=== PATIENT | female | born 1985 | race Caucasian/White ===

== ENCOUNTER 2018-02-04 22:15 | Emergency (ER) | payer OTHER ==
[~2018-02-04] VITALS: Ht 167.6 cm; Wt 113.4 kg
[2018-02-04] MEDS ORDERED: ONDANSETRON HCL INJ 2 MG/ML VIAL IV STA (23:19)
[2018-02-04] MEDS ORDERED: IBUPROFEN 600 MG TAB PO STA (23:19)
[2018-02-04 23:44] LABS: BASOPHILS % 0.2 % (0.0-1.0); EOSINOPHILS # (AUTO) 0.1 (0.0-0.4); EOSINOPHILS % 1.5 % (0.0-6.0); HEMATOCRIT 41.8 % (34.2-44.1); HEMOGLOBIN 14.4 g/dL (12.0-16.0); LYMPHOCYTES # (AUTO) 0.6 (1.0-3.2); LYMPHOCYTES % 7.2 % (18.0-39.1); MEAN CORPUSCULAR HGB CONC 34.4 g/dL (31-35); MEAN CORPUSCULAR VOLUME 87.1 fL (81-99); MONOCYTES # (AUTO) 0.6 (0.2-0.8); MONOCYTES % 6.2 % (4.4-11.3); NEUTROPHILS # (AUTO) 7.5 (2.1-6.9); NEUTROPHILS % 84.6 % (38.7-80.0); PLATELET COUNT 236 x10e3/uL (140-360); RED CELL DISTRIBUTION WIDTH 12.4 % (11.7-14.4)
[2018-02-04 23:54] LABS: CLARITY,URINE CLEAR (CLEAR); COLOR,URINE YELLOW (YELLOW); PREGNANCY TEST, URINE NEGATIVE (NEGATIVE)
[2018-02-04 23:55] LABS: BILIRUBIN,URINE 1+ (NEGATIVE); KETONES,URINE 3+ (NEGATIVE); LEUKOCYTE ESTERASE ,URINE NEGATIVE (NEGATIVE); NITRITE,URINE NEGATIVE (NEGATIVE); PROTEIN,URINE DIPSTICK TRACE (NEGATIVE); URINE UROBILINOGEN 0.2 mg/dL (0.2 - 1)
[2018-02-05 00:01] LABS: ALANINE AMINOTRANSFERASE 30 IU/L (0-55); ALBUMIN 3.7 g/dL (3.5-5.0); ALBUMIN/GLOBULIN RATIO 1.1 (0.8-2.0); ALKALINE PHOSPHATASE 72 IU/L (40-150); ANION GAP 15.8 mmol/L (8-16); BLOOD UREA NITROGEN 16 mg/dL (7-26); BUN/CREATININE RATIO 25 (6-25); CARBON DIOXIDE 21 mmol/L (22-29); CHLORIDE 105 mmol/L (98-107); CREATININE, SERUM 0.64 mg/dL (0.57-1.11); EST GLOMERULAR FILTRATION RATE > 60 ML/MIN (60-); GLUCOSE 94 mg/dL (74-118); POTASSIUM 3.8 mmol/L (3.5-5.1); SODIUM 138 mmol/L (136-145)
[2018-02-05 00:12] LABS: BACTERIA,URINE MANY /HPF; EPITHELIAL CELLS,URINE FEW /LPF; TRANSITIONAL EPI CELLS,URINE FEW
[2018-02-05] MEDS ORDERED: NITROFURANTOIN MACROCRYSTALS 100 MG CAP PO ONE (01:15)
[2018-02-05] MEDS ORDERED: SODIUM CHLORIDE 0.9% 1000ML 1,000 ML IV SCH (01:15)
[2018-02-05] MEDS ORDERED: ONDANSETRON HCL 4 MG ORAL DISINTEGRATING TAB ONE (01:21)
[2018-02-05] MEDS ORDERED: ZOFRAN ODT4 MG SL (01:42)
[2018-02-05] MEDS ORDERED: MACROBID 100 M100 MG PO (01:42)
[2018-02-05] MEDS ORDERED: BELLADONNA ALK/PHENOBARBITAL 5 ML UDC ONE (01:50)
[2018-02-05] MEDS ORDERED: MAGNESIUM/ALUMINUM/SIMETHICONE 30 ML UDC ONE (01:50)
[2018-02-05] MEDS ORDERED: LIDOCAINE VISC 2% SOLN 15 ML UDC ONE (01:50)
[2018-02-05] MEDS ORDERED: DONNATAL/LIDOCAINE/MAALOX 30 ML SUSP PO ONE (02:00)
[2018-02-05 02:01] VITALS: BP 102/69
== END 2018-02-05 02:06 | disposition home or self-care (01) ==
LOC: ER 22:15
DX: R11.2 Nausea with vomiting, unspecified (principal); N30.91 Cystitis, unspecified with hematuria
CPT/HCPCS: 36415; 80053; 81001; 81025; 85025; 99283; J2405; J7030

== ENCOUNTER 2018-02-07 14:44 | Emergency (ER) | payer OTHER ==
[~2018-02-07] VITALS: Ht 167.6 cm; Wt 113.4 kg
[~2018-02-07 14:44] MED LIST: MACROBID 100 M100 MG PO; ZOFRAN ODT4 MG SL
[2018-02-07] MEDS ORDERED: ONDANSETRON HCL INJ 2 MG/ML VIAL IV STA (15:20)
[2018-02-07 15:21] LABS: BASOPHILS % 0.2 % (0.0-1.0); EOSINOPHILS # (AUTO) 0.3 (0.0-0.4); EOSINOPHILS % 3.6 % (0.0-6.0); HEMOGLOBIN 13.8 g/dL (12.0-16.0); LYMPHOCYTES # (AUTO) 1.7 (1.0-3.2); LYMPHOCYTES % 20.1 % (18.0-39.1); MEAN CORPUSCULAR HEMOGLOBIN 29.6 pg (28-32); MEAN CORPUSCULAR HGB CONC 33.7 g/dL (31-35); MEAN CORPUSCULAR VOLUME 87.8 fL (81-99); MONOCYTES # (AUTO) 0.6 (0.2-0.8); MONOCYTES % 7.6 % (4.4-11.3); NEUTROPHILS # (AUTO) 5.7 (2.1-6.9); NEUTROPHILS % 68.1 % (38.7-80.0); PLATELET COUNT 229 x10e3/uL (140-360); RED BLOOD COUNT 4.67 x10e6/uL (3.6-5.1); RED CELL DISTRIBUTION WIDTH 12.7 % (11.7-14.4)
[2018-02-07] MEDS ORDERED: MORPHINE SULFATE 2 MG/ML SYR IV STA (15:29)
[2018-02-07 15:34] LABS: BILIRUBIN,URINE 1+ (NEGATIVE); COLOR,URINE YELLOW (YELLOW); KETONES,URINE 1+ (NEGATIVE); LEUKOCYTE ESTERASE ,URINE NEGATIVE (NEGATIVE); NITRITE,URINE NEGATIVE (NEGATIVE); PROTEIN,URINE DIPSTICK 1+ (NEGATIVE); URINE UROBILINOGEN 0.2 mg/dL (0.2 - 1)
[2018-02-07 15:43] LABS: ALANINE AMINOTRANSFERASE 55 IU/L (0-55); ALBUMIN 3.5 g/dL (3.5-5.0); ALBUMIN/GLOBULIN RATIO 1.1 (0.8-2.0); ALKALINE PHOSPHATASE 62 IU/L (40-150); ANION GAP 11.6 mmol/L (8-16); BLOOD UREA NITROGEN 15 mg/dL (7-26); BUN/CREATININE RATIO 19 (6-25); CALCIUM 8.9 mg/dL (8.4-10.2); CARBON DIOXIDE 24 mmol/L (22-29); CHLORIDE 107 mmol/L (98-107); CREATININE, SERUM 0.78 mg/dL (0.57-1.11); EST GLOMERULAR FILTRATION RATE > 60 ML/MIN (60-); GLUCOSE 95 mg/dL (74-118); POTASSIUM 3.6 mmol/L (3.5-5.1); SODIUM 139 mmol/L (136-145)
[2018-02-07 15:50] LABS: AMORPHOUS SEDIMENT,URINE MANY (FEW); BACTERIA,URINE RARE /HPF; CLARITY,URINE CLOUDY (CLEAR); EPITHELIAL CELLS,URINE RARE /LPF; RBC,URINE 0-5 /HPF (0-5)
[2018-02-07] MEDS ORDERED: SODIUM CHLORIDE 0.9% 1000ML 1,000 ML IV ONE (16:30)
[2018-02-07] MEDS ORDERED: MORPHINE SULFATE 2 MG/ML SYR IV ONE (17:09)
[2018-02-07] MEDS ORDERED: DIATRIZOATE MEGL/DIATRIZOA SOD 30 ML BTL PO ONE (17:14)
--- NOTE | 2018-02-07 19:39 | Diagnostic Imaging Report ---
EXAM: CT ABDOMEN/PELVIS W DATE: 02/07/2018 5:04 PM INDICATION: Abdominal pain COMPARISON: None TECHNIQUE: The abdomen and pelvis were scanned using a multidetector helical scanner. Coronal and sagittal reformations were obtained. Routine protocol performed. IV Contrast: 100 ml Isovue 300/370 FINDINGS: Image quality is mildly degraded by noise related to body habitus. LOWER THORAX: No consolidations. Partially imaged medial right lung cyst or bullae. LIVER/BILIARY: No masses. No ductal dilatation. GALLBLADDER: Surgically absent SPLEEN: Unremarkable PANCREAS: Unremarkable ADRENALS: No nodules KIDNEYS: Symmetric perfusion. No enhancing masses. No hydronephrosis. GI TRACT: No wall thickening or evidence of obstruction. Moderate stool burden is noted. Normal appendix. VESSELS: Unremarkable PERITONEUM/RETROPERITONEUM: No free air or fluid LYMPH NODES: No lymphadenopathy REPRODUCTIVE ORGANS/BLADDER: Unremarkable SOFT TISSUES: Tiny fat-containing umbilical hernia BONES: Scattered degenerative changes are seen about the spine. IMPRESSION: No acute abnormality in the abdomen or pelvis. Signed by: Dr Venus Blake MD on 02/07/2018 7:35 PM
[2018-02-07 19:47] VITALS: BP 147/97
[2018-02-07] MEDS ORDERED: IOPAMIDOL 370 MG/ML 200 ML INFUS..BTL INJ ONE (21:22)
[2018-02-07] MEDS ORDERED: SODIUM CHLORIDE 0.9% 50ML 0 ML ONE (21:22)
--- OUTSIDE RECORDS SUMMARY | 2018-05-19 14:23 | XMS REPORT ---
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 Allergies, Adverse Reactions, Alerts Allergy Name Allergy Type Status Severity Reaction(s) Onset Date Inactive Date Treating Clinician Comments Penicillins DA Active MO 2018-05-05 00:00:00 cephalexin DA Active MO 2018-05-05 00:00:00 sulfamethoxazole DA Active U 2018-05-05 00:00:00 trimethoprim DA Active U 2018-05-05 00:00:00 cephalexin DA Active MO 2017-11-27 00:00:00 Penicillins DA Active MO 2015-01-30 00:00:00 sulfamethoxazole DA Active U 2015-01-30 00:00:00 trimethoprim DA Active U 2015-01-30 00:00:00 Medications This patient has no known medications. Results Test Description Test Time Test Comments Text Results Atomic Results Result Comments CT ABDOMEN/PELVIS W 2018-02-07 19:32:00 [place] [id number] Patient Name: COLLEEN JOHNSON MR #: [id number] : 1985 Age/Sex: 32/F Req #: [id number] Adm Physician: Ordered by: FELICIA DELGADO MD Report #: [id number] Location: ER Room/Bed: ____ Procedure: [id number] CT/CT ABDOMEN/PELVIS W Exam Date: 02/07/18 Exam Time: 1830 REPORT STATUS: Signed EXAM: CT ABDOMEN/PELVIS W DATE: 02/07/2018 5:04 PM INDICATION: Abdominal pain COMPARISON: None TECHNIQUE: The abdomen and pelvis were scanned using a multidetector helical scanner. Coronal and sagittal reformations were obtained. Routine protocol performed. IV Contrast: 100 ml Isovue 300/370 FINDINGS: Image quality is mildly degraded by noise related to body habitus. LOWER THORAX: No consolidations. Partially imaged medial right lung cyst or bullae. LIVER/BILIARY: No masses. No ductal dilatation. GALLBLADDER: Surgically absent SPLEEN: Unremarkable PANCREAS: Unremarkable ADRENALS: No nodules KIDNEYS: Symmetric perfusion. No enhancing masses. No hydronephrosis. GI TRACT: No wall thickening or evidence of obstruction. Moderate stool burden is noted. Normal appendix. VESSELS: Unremarkable PERITONEUM/RETROPERITONEUM: No free air or fluid LYMPH NODES: No lymphadenopathy REPRODUCTIVE ORGANS/BLADDER: Unremarkable SOFT TISSUES: Tiny fat-containing umbilical hernia BONES: Scattered degenerative changes are seen about the spine. IMPRESSION: No acute abnormality in the abdomen or pelvis. Signed by: Dr Mary Blake MD on 02/07/2018 7:35 PM Dictated By: MARY BLAKE MD 34 Transcribed By: LILIA on 02/07/181934 COPY TO: FELICIA DELGADO MD
--- OUTSIDE RECORDS SUMMARY | 2018-05-19 14:23 | XMS REPORT | Continuity of Care Document ---
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 Problems No problem information available. Medications Current Home Medications Medication Dose Units Route Directions Days Qty Instructions Start Date Nitrofurantoin Monohyd/M-Cryst (Macrobid 100 Mg Capsule) 100 Mg Capsule 100 Mg Oral Twice A Day 7 02/05/18 Ondansetron (Zofran Odt) 4 Mg Tab.rapdis 4 Mg Sublingual Every 6 Hours as needed for Nausea 14 02/05/18 Social History Smoking Status Start Date Stop Date Current every day smoker Hospital Discharge Instructions No hospital discharge instruction information available. Plan of Care Discharge Date 02/05/18 2:06am Disposition HOME, SELF-CARE Condition at Discharge Stable Instructions/Education Provided Abdominal Pain - Adult Urinary Tract Infection - Men Vomiting - Adult Forms Provided Work/School Excuse Prescriptions See Medication Section Additional Instructions/Education CONTINUE CLINDAMYCIN TAKE MEDICATIONS PRESCRIBED FOLLOW UP WITH YOUR PRIMARY CARE DOCTOR TAKE TYLENOL AND MOTRIN DIRECTED FOR FEVER Functional Status No functional status information available. Allergies, Adverse Reactions, Alerts Allergen Type Severity Reaction Status Last Updated Cephalexin Allergy Severe Active 02/04/18 Sulfamethoxazole Allergy Severe Active 02/04/18 Trimethoprim Allergy Severe Active 02/04/18 PENICILLIN Allergy Severe Active 02/04/18 Immunizations No immunization information available. Vital Signs Acute Vital Signs Vital Response Date/Time Pulse Pulse Rate (adult) 71 bpm (60 - 90) 02/05/2018 2:01am Respiratory Rate 18 bpm (12 - 24) 02/05/2018 2:01am Blood Pressure 102/69 mm Hg 02/05/2018 2:01am Height 5 ft 6 in 02/04/2018 10:16pm Weight 250 lb 02/04/2018 10:16pm Body Mass Index 40.4 kg/m^2 02/04/2018 10:16pm Results Laboratory Results Test Name Result Units Flags Reference Collection Date/Time Result Date/ Time Comments White Blood Count 8.91 x10e3/uL 4.8-10.8 02/04/2018 11:30pm 02/05/2018 12:00am Red Blood Count 4.80 x10e6/uL 3.6-5.1 02/04/2018 11:30pm 02/05/2018 12: 00am Hemoglobin 14.4 g/dL 12.0-16.0 02/04/2018 11:30pm 02/05/2018 12:00am Hematocrit 41.8 % 34.2-44.1 02/04/2018 11:30pm 02/05/2018 12:00am Mean Corpuscular Volume 87.1 fL 81-99 02/04/2018 11:30pm 02/05/2018 12: 00am Mean Corpuscular Hemoglobin 30.0 pg 28-32 02/04/2018 11:30pm 2017 12:00am Mean Corpuscular Hemoglobin Concent 34.4 g/dL 31-35 02/04/2018 11:30pm 02/05/2018 12:00am Red Cell Distribution Width 12.4 % 11.7-14.4 02/04/2018 11:30pm 2017 12:00am Platelet Count 236 x10e3/uL 140-360 02/04/2018 11:30pm 02/05/2018 12: 00am Neutrophils (%) (Auto) 84.6 % H 38.7-80.0 02/04/2018 11:30pm 02/05/2018 12:00am Lymphocytes (%) (Auto) 7.2 % L 18.0-39.1 02/04/2018 11:30pm 02/05/2018 12:00am Monocytes (%) (Auto) 6.2 % 4.4-11.3 02/04/2018 11:30pm 02/05/2018 12: 00am Eosinophils (%) (Auto) 1.5 % 0.0-6.0 02/04/2018 11:30pm 02/05/2018 12: 00am Basophils (%) (Auto) 0.2 % 0.0-1.0 02/04/2018 11:30pm 02/05/2018 12: 00am IM GRANULOCYTES % 0.3 % 0.0-1.0 02/04/2018 11:30pm 02/05/2018 12:00am Neutrophils # (Auto) 7.5 H 2.1-6.9 02/04/2018 11:30pm 02/05/2018 12: 00am Lymphocytes # (Auto) 0.6 L 1.0-3.2 02/04/2018 11:30pm 02/05/2018 12: 00am Monocytes # (Auto) 0.6 0.2-0.8 02/04/2018 11:30pm 02/05/2018 12:00am Eosinophils # (Auto) 0.1 0.0-0.4 02/04/2018 11:30pm 02/05/2018 12: 00am Basophils # (Auto) 0.0 0.0-0.1 02/04/2018 11:30pm 02/05/2018 12:00am Absolute Immature Granulocyte (auto 0.03 x10e3/uL 0-0.1 02/04/2018 11: 30pm 02/05/2018 12:00am Urine Color YELLOW YELLOW 02/04/2018 11:38pm 02/04/2018 11:55pm Urine Clarity CLEAR CLEAR 02/04/2018 11:38pm 02/04/2018 11:55pm Urine Specific [place] 1.025 1.010-1.025 02/04/2018 11:38pm 2017 11:55pm Urine pH 6 5 - 7 02/04/2018 11:38pm 02/04/2018 11:55pm Urine Leukocyte Esterase NEGATIVE NEGATIVE 02/04/2018 11:38pm 2017 11:55pm Urine Nitrite NEGATIVE NEGATIVE 02/04/2018 11:38pm 02/04/2018 11: 55pm Urine Protein TRACE H NEGATIVE 02/04/2018 11:38pm 02/04/2018 11:55pm Urine Glucose (UA) NEGATIVE NEGATIVE 02/04/2018 11:38pm 02/04/2018 11 :55pm Urine Ketones 3+ H NEGATIVE 02/04/2018 11:38pm 02/04/2018 11:55pm Urine Urobilinogen 0.2 mg/dL 0.2 - 1 02/04/2018 11:38pm 02/04/2018 11: 55pm Urine Bilirubin 1+ H NEGATIVE 02/04/2018 11:38pm 02/04/2018 11:55pm Urine Blood 4+ H NEGATIVE 02/04/2018 11:38pm 02/04/2018 11:55pm Urine WBC 6-10 /HPF H 0-5 02/04/2018 11:38pm 02/05/2018 12:12am Urine RBC 11-20 /HPF H 0-5 02/04/2018 11:38pm 02/05/2018 12:12am Urine Bacteria MANY /HPF H NONE 02/04/2018 11:38pm 02/05/2018 12:12am Urine Epithelial Cells FEW /LPF NONE 02/04/2018 11:38pm 02/05/2018 12: 12am Urine Transitional Epithelial Cells FEW H NONE 02/04/2018 11:38pm 12:12am Urine Test NEGATIVE NEGATIVE 02/04/2018 11:38pm 02/04/2018 11:54pm Sodium Level 138 mmol/L 136-145 02/04/2018 11:30pm 02/05/2018 12:12am Potassium Level 3.8 mmol/L 3.5-5.1 02/04/2018 11:30pm 02/05/2018 12: 12am Chloride Level 105 mmol/L 98-107 02/04/2018 11:30pm 02/05/2018 12:12am Carbon Dioxide Level 21 mmol/L L 22-29 02/04/2018 11:30pm 02/05/2018 12: 12am Anion Gap 15.8 mmol/L 8-16 02/04/2018 11:30pm 02/05/2018 12:12am Blood Urea Nitrogen 16 mg/dL 7-02/04/2018 11:30pm 02/05/2018 12: 12am Creatinine 0.64 mg/dL 0.57-1.11 02/04/2018 11:30pm 02/05/2018 12:12am BUN/Creatinine Ratio 25 6-25 02/04/2018 11:30pm 02/05/2018 12:12am Estimat Glomerular Filtration Rate > 60 ML/MIN 60- 02/04/2018 11:30pm 02/05/2018 12:12am Ranges were taken from the National Kidney Disease Education Program and the [employer] literature. Reference ranges: 60 or greater: Normal 16-59 (for 3 consecutive months): Chronic kidney disease 15 or less: Kidney failure Glucose Level 94 mg/dL 74-118 02/04/2018 11:30pm 02/05/2018 12:12am Calcium Level 9.0 mg/dL 8.4-10.2 02/04/2018 11:30pm 02/05/2018 12:12am Total Bilirubin 1.0 mg/dL 0.2-1.2 02/04/2018 11:30pm 02/05/2018 12: 12am Aspartate Amino Transf (AST/SGOT) 26 IU/L 5-34 02/04/2018 11:30pm 02/05 12:12am Alanine Aminotransferase (ALT/SGPT) 30 IU/L 0-55 02/04/2018 11:30pm 12:12am Total Protein 7.2 g/dL 6.5-8.1 02/04/2018 11:30pm 02/05/2018 12:12am Albumin 3.7 g/dL 3.5-5.0 02/04/2018 11:30pm 02/05/2018 12:12am Globulin 3.5 g/dL 2.3-3.5 02/04/2018 11:30pm 02/05/2018 12:12am Albumin/Globulin Ratio 1.1 0.8-2.0 02/04/2018 11:30pm 02/05/2018 12: 12am Alkaline Phosphatase 72 IU/L 40-150 02/04/2018 11:30pm 02/05/2018 12: 12am Procedures No procedure information available. Encounters Encounter Location Arrival/Admit Date Discharge/Depart Date Attending Provider Departed Emergency Room [facility] [place] 02/04/18 10:15pm 02/05 2:06am AMANDA MUHAMMAD MD
== END 2018-02-07 19:52 | disposition home or self-care (01) ==
LOC: ER 14:46
DX: R10.30 Lower abdominal pain, unspecified (principal); N30.90 Cystitis, unspecified without hematuria; E28.2 Polycystic ovarian syndrome; Z87.19 Personal history of other diseases of the digestive system
CPT/HCPCS: 36415; 74177; 80053; 81001; 84702; 85025; 87086; 99284; J2270; J2405; J7030; Q9967

== ENCOUNTER 2018-04-30 13:40 | Emergency (ER) | payer OTHER ==
[~2018-04-30] VITALS: Ht 167.6 cm; Wt 120.2 kg
== END 2018-04-30 16:17 | disposition left against medical advice (07) ==
LOC: ER 13:40
DX: R21 Rash and other nonspecific skin eruption (principal)

== ENCOUNTER 2019-06-05 14:58 | Emergency (ER) | payer OTHER ==
[~2019-06-05] VITALS: Ht 167.6 cm; Wt 132.1 kg
[2019-06-05] MEDS ORDERED: LIDOCAINE 1% W/EPINEPHRINE 20 ML VIAL INJ ONE (15:30)
[2019-06-05] MEDS ORDERED: LIDOCAINE HCL 1% LOCAL INJ 20 ML VIAL ONE (15:46)
[2019-06-05] MEDS ORDERED: HYDROCODONE/APAP 10MG-325MG TAB PO ONE (16:00)
[2019-06-05] MEDS ORDERED: HYDROCODONE/APAP 5MG-325MG TAB ONE (16:03)
[2019-06-05 19:49] VITALS: BP 99/65
== END 2019-06-05 16:13 | disposition home or self-care (01) ==
LOC: FSED 14:58
DX: L73.2 Hidradenitis suppurativa (principal); L02.211 Cutaneous abscess of abdominal wall
CPT/HCPCS: 10061; 99283; J2001

== ENCOUNTER 2019-07-29 18:32 | Emergency (ER) | payer OTHER ==
[~2019-07-29] VITALS: Ht 167.6 cm; Wt 124.7 kg
[2019-07-29] MEDS ORDERED: KETOROLAC TROMETHAMINE 60 MG/2 ML VIAL ONE (19:16)
[2019-07-29] MEDS ORDERED: KETOROLAC TROMETHAMINE 60 MG/2 ML VIAL IM ONE (19:30)
--- NOTE | 2019-07-29 19:31 | Diagnostic Imaging Report ---
Exam: Right Ankle Series. History: Hit back of ankle one week ago Comparison: None. DISCUSSION: 3 views of the right ankle. There is normal bone mineralization. No evidence of acute, displaced fracture or dislocation. Ankle mortise is preserved.No osteochondral lesion. Large anterior calcaneal enthesophyte. No soft tissue swelling. IMPRESSION: 1. No acute abnormalities. The staff physician below has personally reviewed this exam on the date of dictation. Signed by: Dr. Duarte Dunham M.D. on 07/29/2019 7:27 PM
== END 2019-07-29 20:13 | disposition home or self-care (01) ==
LOC: FSED 18:32
DX: S90.01XA Contusion of right ankle, initial encounter (principal); M66.871 Spontaneous rupture of other tendons, right ankle and foot; W22.8XXA Striking against or struck by other objects, initial encounter; Y92.008 Other place in unspecified non-institutional (private) residence as the place of occurrence of the external cause
CPT/HCPCS: 73610; 99283; J1885

== ENCOUNTER 2020-04-12 18:48 | Observation (INO) | payer OTHER ==
[~2020-04-12] VITALS: Ht 167.6 cm; Wt 130.2 kg
[2020-04-12] MEDS ORDERED: MORPHINE SULFATE INJ 4 MG/ML INJ 1ML IV STA (19:21)
[2020-04-12] MEDS ORDERED: ONDANSETRON HCL INJ 2MG/ML 2ML 2 MG/ML VIAL IV STA (19:21)
[2020-04-12] MEDS ORDERED: SODIUM CHLORIDE 0.9% 1000ML 1,000 ML IV ONE (19:30)
--- OUTSIDE RECORDS SUMMARY | 2020-04-12 19:59 | XMS REPORT | Continuity of Care Document ---
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 pharmacy for label*, ATTN:REGINA, Drug form: MISC, Route: MISC, QSHIFT, 01/27/19 16:00:00 CDT, Duration: 30 day, Stop date: 02/26/19 8:00:00 CDT No Longer Active 01/27/2019 [facility] Acetaminophen 325 MG / Hydrocodone Nereyda trate 5 MG Oral Tablet [[place] 5/325] Notes: (Same as: [place] 325/5) Do not ex ceed 4gm/day of acetaminophen. No Longer Activ e 01/27/2019 [facility] Vancomycin 1 ea, Route: MISC, ONCALL, Dosing Weight 125, kg, Start date: 01/27/19 5:00:00 CDT, Duration: 5 day, Stop date: 02/01/19 4:59:00 CDT, Pharmacy to dose, ABX Indication: Skin/Soft Tissue Infection Inactive 01/27/2019 [facility] vancomycin + Sodium Chloride 0.9% IV 250 mL 2001 mg: infuse over 2.5 hours For adult patients only: Round to nearest 250 mg per Medical Staff approval MEDICATION WASTE Product Size: 1000 mg Product Wasted: ___ mg No Longer Active 01/27/2019 [facility] Lovenox Notes: (Same as: Loven ox) No Longer Active 01/27/2019 [facility] Morphine Notes: (Same as:MORPh ine Sulfate) No Longer Active 01/27/2019 [facility] Dextrose 50% Syringe 25 gm, 50 mL, Route: IVP, Drug Form: INJ, Dosing Weight 125, kg, PRN, PRN Blood Glucose Results, Start date: 01/27/19 4:35:00 CDT, Duration: 30 day, Stop date: 02/26/19 4:34:00 CDT No Longer Active 01/27/2019 [facility] Acetaminophen Notes: Do not ex ceed 4 gm/day. (Same as: Tylenol) No Longer Active 01/27/2019 [facility] Ondansetron Notes: (Same as: Kathy diaz) MEDICATION WASTE Product Size: 4 mg Product Wasted: ___ mg No Longer Active 01/27/2019 [facility] Glucagon 1 mg, Route: IM, Drug form: PDR/INJ, PRN, Dosing Weight 125, kg, PRN Blood Glucose Results, Start date: 01/27/19 4:35:00 CDT, Duration: 30 day, Stop date: 02/26/19 4:34:00 CDT No Longer Active 01/27/2019 [facility] Morphine 4 mg, Route: IVP, ONC E, Dosing Weight 125, kg, Priority: STAT, Start date: 01/27/19 3:29:00 CDT, Stop date: 01/27/19 3:29:00 CDT Inactive 01/27/2019 [facility] Vancomycin 1,000 mg, Route: IV PB, Drug form: INJ, ONCE, Dosing Weight 125, kg, Priority: STAT, Start date: 01/27/19 3:28:00 CDT, Stop date: 01/27/19 3:28:00 CDT, ABX Indication: Skin/Soft Tissue Infection Inactive 01/27/2019 [facility] Mupirocin 20 MG/ML Topical Cream 1 appl, TOP, TID, X 5 day, # 15 gm, 0 Refill(s) Active 12/13/2018 [facility] azithromycin 500 mg oral tablet 500 mg = 1 tab, PO, Daily, X 5 day, # 5 tab, 0 Refill(s) Active 12/13/2018 [facility] tedizolid 200 mg oral tablet 2 00 mg = 1 tab, PO, Daily, X 6 day, # 6 tab, 0 Refill(s), Pharmacy: [facility] [id number] Active 12/09/2018 [facility] Acetaminophen 300 MG / Codeine Phosphate 30 MG Oral Tablet [Tylenol with Codeine #3] 1 tab, PO, Q6H, PRN Pain, X 7 day, # 30 tab, 0 Refill(s) Active 12/09/2018 [facility] vancomycin + Sodium Chloride 0.9% IV 100 mL Notes: TIME CRITICAL MEDICATION (Same As: Vancocin) For adult patients only: Round to nearest 250 mg per Medical Staff approval No Longer Active 12/09/2018 [facility] vancomycin + Sodium Chloride 0.9% IV 250 mL 2001 mg: infuse over 2.5 hours For adult patients only: Round to nearest 250 mg per Medical Staff approval MEDICATION WASTE Product Size: 1000 mg Product Wasted: ___ mg No Longer Active 12/08/2018 [facility] Dilaudid Notes: (Same as: Dila udid) No Longer Active 12/07/2018 [facility] Naloxone Notes: Same as Narcan Inactive 12/06/2018 [facility] Ondansetron Notes: (Same as: Kathy diaz) MEDICATION WASTE Product Size: 4 mg Product Wasted: ___ mg Inactive 12/06/2018 [facility] Flumazenil Notes: (Same as: Ro mazicon) Inactive 12/06/2018 [facility] Hydromorphone Notes: Same as: Dilaudid Inactive 12/06/2018 [facility] Fentanyl Notes: (Same as: Subl imaze) Preservative free. Inactive 12/06/2018 [facility] Hydralazine Notes: (Same as: A presoline) Push over 5 minutes Inactive 12/06/2018 [facility] dexamethasone (ANES) Route: IV , Drug form: INJ, ONCE, Stop date: 12/06/18 12:33:00 CDT Inactive 12/06/2018 [facility] ondansetron (ANES) Route: IV, Drug form: INJ, ONCE, Stop date: 12/06/18 12:33:00 CDT Inactive 12/06/2018 [facility] ketOROLAC (ANES) IV, ONCE Inactive 12/06/2018 [facility] fentaNYL (ANES) Route: IV, Juan g form: INJ, ONCE, Stop date: 12/06/18 12:33:00 CDT Inactive 12/06/2018 [facility] midazolam (ANES) Route: IV, Dr ug form: SOLN, ONCE, Stop date: 12/06/18 12:33:00 CDT Inactive 12/06/2018 [facility] propofol (ANES) Route: IV, Juan g form: INJ, ONCE, Stop date: 12/06/18 12:33:00 CDT Inactive 12/06/2018 [facility] vancomycin (ANES) 1000 mg Rout e: IV, Drug form: INJ, Start date: 12/06/18 11:45:00 CDT, Stop date: 12/06/18 12:45:00 CDT Inactive 12/06/2018 [facility] Lactated Ringers Injection IV (ANES) 1000 mL Route: IV, Total Volume: 1,000, Start date: 12/06/18 11:45:00 CDT, Stop date: 12/06/18 12:45:00 CDT Inactive 12/06/2018 [facility] Calcium Chloride 0.0014 MEQ/ML / Potassi um Chloride 0.004 MEQ/ML / Sodium Chloride 0.103 MEQ/ML / Sodium Lactate 0.028 MEQ/ML Injectable Solution 1,000 mL, Rate: 25 ml/hr, Infuse over: 4 0 hr, Route: IV, Dosing Weight 58.778 kg, Total Volume: 1,000, Start date: 12/06/18 11:00:00 CDT, Duration: 30 day, Stop date: 01/05/19 10:59:00 CDT, 1.66, m2 Inactive 12/06/2018 [facility] vancomycin + Sodium Chloride 0.9% IV 250 mL 2001 mg: infuse over 2.5 hours For adult patients only: Round to nearest 250 mg per Medical Staff approval MEDICATION WASTE Product Size: 1000 mg Product Wasted: ___ mg No Longer Active 12/05/2018 [facility] Spironolactone Notes: (Same As : Aldactone) No Longer Active 12/05/2018 [facility] Ambien Notes: (Same As: Ambien) No Longer Active 12/05/2018 [facility] vancomycin + Sodium Chloride 0.9% IV 250 mL 2001 mg: infuse over 2.5 hours For adult patients only: Round to nearest 250 mg per Medical Staff approval MEDICATION WASTE Product Size: 1000 mg Product Wasted: ___ mg No Longer Active 12/04/2018 [facility] Adderall 30 mg, PO, BID, 0 Ref ill(s) Active 12/04/2018 [facility] Enoxaparin Notes: (Same as: Lo venox) No Longer Active 12/04/2018 [facility] Vancomycin 2001 mg: infuse ov er 2.5 hours For adult patients only: Round to nearest 250 mg per Medical Staff approval No Longer Active 12/04/2018 [facility] Vancomycin 2001 mg: infuse ov er 2.5 hours For adult patients only: Round to nearest 250 mg per Medical Staff approval MEDICATION WASTE Product Size: 1000 mg Product Wasted: ___ mg Inactive 12/04/2018 [facility] Dextrose 50% Syringe 25 gm, 50 mL, Route: IVP, Drug Form: INJ, Dosing Weight 126.364, kg, PRN, PRN Blood Glucose Results, Start date: 12/03/18 21:07:00 CDT, Duration: 30 day, Stop date: 01/02/19 21:06:00 CDT No Longer Active 12/04/2018 [facility] Glucagon 1 mg, Route: IM, Drug form: PDR/INJ, PRN, Dosing Weight 126.364, kg, PRN Blood Glucose Results, Start date: 12/03/18 21:07:00 CDT, Duration: 30 day, Stop date: 01/02/19 21:06:00 CDT No Longer Active 12/04/2018 [facility] Bisacodyl Notes: (Same As: Dul colax, Bisco-Lax) No Longer Active 12/04/2018 [facility] Ondansetron Notes: (Same as: Kathy diaz) MEDICATION WASTE Product Size: 4 mg Product Wasted: ___ mg No Longer Active 12/04/2018 [facility] Melatonin Notes: (Same as: Raissa atonin) No Longer Active 12/04/2018 [facility] Acetaminophen Notes: Do not ex ceed 4 gm/day. (Same as: Tylenol) No Longer Active 12/04/2018 [facility] Hydromorphone Notes: Same as: Dilaudid No Longer Active 12/04/2018 [facility] Tramadol Notes: Not to exceed 400mg/day. (Same As: Ultram) No Longer Active 12/04/2018 [facility] LR IV 1,000 mL 1,000 mL, Rate: 125 ml/hr, Infuse over: 8 hr, Route: IV, Dosing Weight 126.364 kg, Total Volume: 1,000, Start date: 12/03/18 21:05:00 CDT, Duration: 30 day, Stop date: 01/02/19 21:04:00 CDT, 2.47, m2 No Longer Active 12/04/2018 [facility] Calcium Gluconate Notes: WASTE : F/P - Sink; E - Municipal Trash Bin No Longer Active 12/04/2018 [facility] Potassium Chloride Notes: ([facility] as: K-Dur 20) "Do Not Crush" Give with food and full glass of water For patients unable to swallow tablet, dissolve in one half glass of water. Allow about 2 minutes for the tab lets to disintegrate. Stir before giving to prepare slurry and administer. Please exclude Patients with feeding tube less than 14 [place] (Dobhoff, J-tube etc) and pediatric and patients. No Longer Active 12/04/2018 [facility] Magnesium Sulfate Notes: WASTE : F/P - Sink; E - Municipal Trash Bin No Longer Active 12/04/2018 [facility] potassium phosphate Notes: ([place] [facility] as: K Phosphate.) Do not infuse phosphorous concurrently in the same line as TPN or IVF that contains calcium. For double lumen central lines, phosphorous may be infused in a separate lumen from TPN. 1 mMol phoshate has 1.47 mEq potassium Infuse over 4 hours No Longer Active 12/04/2018 [facility] sodium phosphate Notes: Infuse over 4 hour. Do not infuse phosphorous concurrently in the same line as TPN or IVF that contains calcium. For double lumen central lines, phosphorous may be infused in a separate lumen from TPN. No Longer Active 12/04/2018 [facility] Magnesium Oxide Notes: (Same a s: Mag-Ox 400) Magnesium oxide [id number] elemental magnesium Dose=____mg magnesium oxide (___mg elemental magnesium) No Longer Active 12/04/2018 [facility] potassium phosphate-sodium phosphate 250 mg-280 mg-160 mg oral powder for reconstitution Notes: (Same as: Phos-NaK) Each 1.5 gm pkt has 250mg phosphorous. Mix w/2.5oz water and stir. No Longer Active 12/04/2018 [facility] Morphine 4 mg, Route: IVP, ONC E, Dosing Weight 126.364, kg, Priority: STAT, Start date: 12/03/18 20:56:00 CDT, Stop date: 12/03/18 20:56:00 CDT Inactive 12/04/2018 [facility] Ondansetron 4 mg, Route: IVP, Drug form: INJ, ONCE, Dosing Weight 126.364, kg, Priority: STAT, Start date: 12/03/18 20:56:00 CDT, Stop date: 12/03/18 20:56:00 CDT Inactive 12/04/2018 [facility] Sodium Chloride 0.9% (Bolus) IV 1,000 mL, 1000 ml/hr, Infuse Over: 1 hr, Route: IV, 1,000, Drug form: INJ, ONCE, Priority: STAT, Dosing Weight 126.364 kg, Start date: 12/03/18 18:40:00 CDT, Stop date: 12/03/18 18:40:00 CDT Inactive 12/03/2018 [facility] Morphine 4 mg, Route: IVP, ONC E, Dosing Weight 126.364, kg, Priority: STAT, Start date: 12/03/18 18:40:00 CDT, Stop date: 12/03/18 18:40:00 CDT Inactive 12/03/2018 [facility] Vancomycin 1,000 mg, Route: IV PB, ONCE, Dosing Weight 126.364, kg, Priority: STAT, Start date: 12/03/18 18:40:00 CDT, Stop date: 12/03/18 18:40:00 CDT, ABX Indication: Skin/Soft Tissue Infection Inactive 12/03/2018 [facility] Saline Flush 0.9% Notes: (Same as: BD Posiflush) No Longer Active 12/03/2018 [facility] linezolid 600 mg oral tablet 6 00 mg = 1 tab, PO, [id number], X 10 day, # 20 tab, 0 Refill(s), Pharmacy: [facility] [id number] Active 10/12/2018 [facility] Morphine Notes: (Same as:MORPh ine Sulfate) No Longer Active 10/12/2018 [facility] linezolid Notes: Protect from light. (Same as: Zyvox) No Longer Active 10/11/2018 [facility] Vancomycin 2001 mg: infuse ov er 2.5 hours For adult patients only: Round to nearest 250 mg per Medical Staff approval MEDICATION WASTE Product Size: 1000 mg Product Wasted: ___ mg Inactive 10/11/2018 [facility] Lovenox Notes: (Same as: Loven ox) No Longer Active 10/11/2018 [facility] Vancomycin 1 ea, Route: MISC, ONCALL, Dosing Weight 133.182, kg, Priority: STAT, Start date: 10/11/18 10:46:00 ALLERGY AND IMMUNOLOGY CHIEF, Duration: 1 day, Stop date: 10/12/18 10:45:00 ALLERGY AND IMMUNOLOGY CHIEF, Pharmacy to dose, ABX Indication: Urinary T ract Infection Inactive 10/11/2018 [facility] Ambien Notes: (Same As: Ambien) No Longer Active 10/11/2018 [facility] Acetaminophen 300 MG / Codeine Phosphate 30 MG Oral Tablet [Tylenol with Codeine #3] Notes: Do not exceed 4gm/day of acetamin ophen. (Same as: Tylenol with Codeine # 3) No Longer Active 10/11/2018 [facility] Dextrose 50% Syringe 25 gm, 50 mL, Route: IVP, Drug Form: INJ, Dosing Weight 133.182, kg, PRN, PRN Blood Glucose Results, Start date: 10/11/18 10:12:00 ALLERGY AND IMMUNOLOGY CHIEF, Duration: 30 day, Stop date: 11/10/18 11:11:00 CDT No Longer Active 10/11/2018 [facility] Glucagon 1 mg, Route: IM, Drug form: PDR/INJ, PRN, Dosing Weight 133.182, kg, PRN Blood Glucose Results, Start date: 10/11/18 10:12:00 ALLERGY AND IMMUNOLOGY CHIEF, Duration: 30 day, Stop date: 11/10/18 11:11:00 CDT No Longer Active 10/11/2018 [facility] Docusate Notes: (Same as: Cola ce) (Do Not Crush) No Longer Active 10/11/2018 [facility] Dextrose 50% Syringe 25 gm, 50 mL, Route: IVP, Drug Form: INJ, Dosing Weight 133.182, kg, PRN, PRN Blood Glucose Results, Start date: 10/11/18 8:50:00 ALLERGY AND IMMUNOLOGY CHIEF, Duration: 30 day, Stop date: 11/10/18 9:49:00 CDT No Longer Active 10/11/2018 [facility] Glucagon 1 mg, Route: IM, Drug form: PDR/INJ, PRN, Dosing Weight 133.182, kg, PRN Blood Glucose Results, Start date: 10/11/18 8:50:00 ALLERGY AND IMMUNOLOGY CHIEF, Duration: 30 day, Stop date: 11/10/18 9:49:00 CDT No Longer Active 10/11/2018 [facility] Ondansetron Notes: (Same as: Kathy diaz) MEDICATION WASTE Product Size: 4 mg Product Wasted: ___ mg No Longer Active 10/11/2018 [facility] COLLAGENASE 0.25 UNT/MG Topical Ointment [Santyl] 1 appl, TOP, Daily, # 15 gm, 0 Refill(s) No Longer Active 10/11/2018 [facility] Spironolactone 50 mg, PO, Polina y, # 60 tab, 0 Refill(s) Active 10/11/2018 [facility] Zolpidem tartrate 10 MG Oral Tablet [Ambien] 10 mg = 1 tab, PO, Bedtime, # 14 tab, 0 Refill(s) Active 10/11/2018 [facility] Acetaminophen 325 MG / Hydrocodone Nereyda trate 5 MG Oral Tablet [[place] 5/325] 1 tab, Route: PO, Drug Form: TAB, Dosing Weight 133.005, kg, ONCE, STAT, Start date: 10/11/18 3:20:00 ALLERGY AND IMMUNOLOGY CHIEF, Stop date: 10/11/18 3:20:00 ALLERGY AND IMMUNOLOGY CHIEF Inactive 10/11/2018 [facility] Ibuprofen 600 mg, Route: PO, D rug form: TAB, ONCE, Dosing Weight 133.005, kg, Priority: STAT, Start date: 10/11/18 1:55:00 ALLERGY AND IMMUNOLOGY CHIEF, Stop date: 10/11/18 1:55:00 ALLERGY AND IMMUNOLOGY CHIEF Inactive 10/11/2018 [facility] Vancomycin 2001 mg: infuse ov er 2.5 hours For adult patients only: Round to nearest 250 mg per Medical Staff approval MEDICATION WASTE Product Size: 1000 mg Product Wasted: ___ mg No Longer Active 10/11/2018 [facility] Minocycline 100 mg, PO, BID, 0 Refill(s) No Longer Active 10/05/2018 [facility] Acetaminophen 300 MG / Codeine Phosphate 30 MG Oral Tablet [Tylenol with Codeine #3] 1 tab, PO, Q4H, PRN Pain, not to exceed 4000 mg acetaminophen per day, X 3 day, # 12 tab, 0 Refill(s) No Longer Active 09/06/2018 [facility] Ondansetron 4 MG Disintegrating Tablet [Zofran] 4 mg = 1 tab, PO, TID, # 15 tab, 0 Refill(s) No Longer Active 09/06/2018 [facility] Morphine Notes: (Same as:MORPh ine Sulfate) Inactive 09/06/2018 [facility] Pepcid Notes: (Same as: Pepcid ) Can be dilute in 5-10cc NS IVP: Slow IV push over at least 2 minutes. Inactive 09/06/2018 [facility] Zofran Notes: (Same as: Zofran ) MEDICATION WASTE Product Size: 4 mg Product Wasted: ___ mg Inactive 09/06/2018 [facility] Morphine 4 mg, Route: IVP, ONC E, Dosing Weight 120.455, kg, Priority: STAT, Start date: 09/06/18 0:58:00 ALLERGY AND IMMUNOLOGY CHIEF, Stop date: 09/06/18 0:58:00 ALLERGY AND IMMUNOLOGY CHIEF Inactive 09/06/2018 [facility] Zofran 4 mg, Route: IVP, Drug form: INJ, ONCE, Dosing Weight 120.455, kg, Priority: STAT, Start date: 09/06/18 0:58:00 ALLERGY AND IMMUNOLOGY CHIEF, Stop date: 09/06/18 0:58:00 ALLERGY AND IMMUNOLOGY CHIEF Inactive 09/06/2018 [facility] Sodium Chloride 0.9% (Bolus) IV 1,000 mL, Infuse Over: 1 hr, Route: IV, ONCE, Priority: STAT, Dosing Weight 120.455 kg, Start date: 09/06/18 0:57:00 ALLERGY AND IMMUNOLOGY CHIEF, Stop date: 09/06/18 0:57:00 ALLERGY AND IMMUNOLOGY CHIEF Inactive 09/06/2018 [facility] Acetaminophen 300 MG / Codeine Phosphate 30 MG Oral Tablet [Tylenol with Codeine #3] 1 tab, PO, Q12H, PRN Pain, X 5 day, # 10 tab, 0 Refill(s) No Longer Active 08/30/2018 [facility] heparin sodium, porcine 2500 UNT/ML Injectable Solutio n Notes: porcine heparin No Longer Active 08/30/2018 [facility] Vancomycin 2001 mg: infuse ov er 2.5 hours For adult patients only: Round to nearest 250 mg per Medical Staff approval MEDICATION WASTE Product Size: 1000 mg Product Wasted: ___ mg No Longer Active 08/28/2018 [facility] Saline Flush 0.9% Notes: (Same as: BD Posiflush) No Longer Active 08/27/2018 [facility] Lidocaine Hydrochloride 10 MG/ML Injectable Solution Notes: (Same as: Xylocaine) No Longer Active 08/27/2018 [facility] Saline Flush 0.9% Notes: (Same as: BD Posiflush) No Longer Active 08/27/2018 [facility] morphine Sulfate Notes: (Same as:MORPhine Sulfate) No Longer Active 08/26/2018 [facility] vancomycin + Sodium Chloride 0.9% IV 250 mL 2001 mg: infuse over 2.5 hours For adult patients only: Round to nearest 250 mg per Medical Staff approval MEDICATION WASTE Product Size: 1000 mg Product Wasted: ___ mg No Longer Active 08/25/2018 [facility] vancomycin + Sodium Chloride 0.9% IV 250 mL 2001 mg: infuse over 2.5 hours For adult patients only: Round to nearest 250 mg per Medical Staff approval MEDICATION WASTE Product Size: 1000 mg Product Wasted: ___ mg No Longer Active 08/25/2018 [facility] Tramadol Notes: Not to exceed 400mg/day. (Same As: Ultram) No Longer Active 08/25/2018 [facility] sennosides, LONGTERM Notes: (Same a s: Senokot) No Longer Active 08/25/2018 [facility] Judith Sandoval Notes: (Same A s: Judith Sandoval) "Do Not Crush" No Longer Active 08/25/2018 [facility] Melatonin Notes: (Same as: Raissa atonin) No Longer Active 08/25/2018 [facility] Morphine 2 mg, 1 mL, Route: IV P, Drug form: SOLN, Q4H, Dosing Weight 127.727, kg, PRN Pain Score 7-10, Start date: 08/24/18 19:47:00 ALLERGY AND IMMUNOLOGY CHIEF, Duration: 30 day, Stop date: 09/23/18 19:46:00 ALLERGY AND IMMUNOLOGY CHIEF No Longer Active 08/25/2018 [facility] Acetaminophen 325 MG / Hydrocodone Nereyda trate 10 MG Oral Tablet [Yuma 10/325] Notes: Do not exceed 4gm/day of acetamin ophen. (Same as: [place] 325/10) No Longer Active 08/25/2018 [facility] Vancomycin 2001 mg: infuse ov er 2.5 hours For adult patients only: Round to nearest 250 mg per Medical Staff approval MEDICATION WASTE Product Size: 1000 mg Product Wasted: ___ mg No Longer Active 08/24/2018 [facility] Dextrose 50% Syringe 12.5 gm, 25 mL, Route: IVP, Drug Form: INJ, Dosing Weight 136.364, kg, PRN, PRN Blood Glucose Results, Start date: 08/24/18 14:32:00 ALLERGY AND IMMUNOLOGY CHIEF, Duration: 30 day, Stop date: 09/23/18 14:31:00 ALLERGY AND IMMUNOLOGY CHIEF No Longer Active 08/24/2018 [facility] Glucagon 1 mg, Route: IM, Drug form: PDR/INJ, PRN, Dosing Weight 136.364, kg, PRN Blood Glucose Results, Start date: 08/24/18 14:32:00 ALLERGY AND IMMUNOLOGY CHIEF, Duration: 30 day, Stop date: 09/23/18 14:31:00 ALLERGY AND IMMUNOLOGY CHIEF No Longer Active 08/24/2018 [facility] Ondansetron Notes: (Same as: Kathy diaz) MEDICATION WASTE Product Size: 4 mg Product Wasted: ___ mg No Longer Active 08/24/2018 [facility] Acetaminophen Notes: Do not ex ceed 4 gm/day. (Same as: Tylenol) No Longer Active 08/24/2018 [facility] Morphine 4 mg, Route: IVP, ONC E, Dosing Weight 120.455, kg, Start date: 08/24/18 14:22:00 ALLERGY AND IMMUNOLOGY CHIEF, Stop date: 08/24/18 14:22:00 ALLERGY AND IMMUNOLOGY CHIEF Inactive 08/24/2018 [facility] Zofran Notes: (Same as: Zofran ) MEDICATION WASTE Product Size: 4 mg Product Wasted: ___ mg Inactive 08/24/2018 [facility] Morphine Notes: (Same as:MORPh ine Sulfate) Inactive 08/24/2018 [facility] Vancomycin 2001 mg: infuse ov er 2.5 hours For adult patients only: Round to nearest 250 mg per Medical Staff approval MEDICATION WASTE Product Size: 1000 mg Product Wasted: ___ mg Inactive 08/24/2018 [facility] doxycycline hyclate 100 MG Oral Tablet 100 mg = 1 tab, PO, Q12H, X 10 day, # 20 tab, 0 Refill(s), Pharmacy: [facility] [id number] No Longer Active 05/22/2018 [facility] Docusate Sodium 100 MG Oral Capsule [Colace] 100 mg = 1 cap, PO, BID, PRN as needed for constipation, # 14 cap, 0 Refill(s), Pharmacy: [facility] [id number] No Longer Active 05/22/2018 [facility] Acetaminophen 300 MG / Codeine Phosphate 30 MG Oral Tablet [Tylenol with Codeine #3] 1 tab, PO, Q6H, PRN Pain Score 6-10, X 5 day, # 20 tab, 0 Refill(s) No Longer Active 05/22/2018 [facility] Docusate Sodium 100 MG Oral Capsule [Colace] Notes: (Same as: Colace) (Do Not Crush) Inactive 05/22/2018 [facility] Acetaminophen 325 MG / Hydrocodone Nereyda trate 5 MG Oral Tablet [Yuma 5/325] Notes: (Same as: [place] 325/5) Do not ex ceed 4gm/day of acetaminophen. No Longer Activ e 05/21/2018 [facility] vancomycin + Sodium Chloride 0.9% IV 250 mL 2001 mg: infuse over 2.5 hours For adult patients only: Round to nearest 250 mg per Medical Staff approval MEDICATION WASTE Product Size: 1000 mg Product Wasted: ___ mg No Longer Active 05/20/2018 [facility] vancomycin 2001 mg: infuse ov er 2.5 hours For adult patients only: Round to nearest 250 mg per Medical Staff approval MEDICATION WASTE Product Size: 1000 mg Product Wasted: ___ mg No Longer Active 05/19/2018 [facility] vancomycin + Sodium Chloride 0.9% IV 100 mL Notes: TIME CRITICAL MEDICATION (Same As: Vancocin) For adult patients only: Round to nearest 250 mg per Medical Staff approval Inactive 05/19/2018 [facility] Ceftriaxone Notes: (Same As: Nikko hopper). MEDICATION WASTE Product Size: 2000 mg Product Wasted: ___ mg No Longer Active 05/19/2018 [facility] Phenergan Notes: (Same as: Phe nergan) Inactive 05/19/2018 [facility] Morphine 2 mg, 1 mL, Route: IV P, Drug form: SOLN, ONCE, Dosing Weight 120.909, kg, Start date: 05/18/18 23:11:00 CDT, Stop date: 05/18/18 23:11:00 CDT Inactive 05/19/2018 [facility] morphine Sulfate Notes: (Same as:MORPhine Sulfate) Inactive 05/19/2018 [facility] Acetaminophen 300 MG / Codeine Phosphate 30 MG Oral Tablet [Tylenol with Codeine #3] Notes: Do not exceed 4gm/day of acetamin ophen. (Same as: Tylenol with Codeine # 3) No Longer Active 05/18/2018 [facility] Meperidine Notes: (Same As: De merol) Inactive 05/18/2018 [facility] Diphenhydramine Notes: (Same a s: Benadryl) Inactive 05/18/2018 [facility] Ondansetron Notes: (Same as: Kathy diaz) MEDICATION WASTE Product Size: 4 mg Product Wasted: ___ mg Inactive 05/18/2018 [facility] Promethazine 6.25 mg, Route: I VPB, ONCE, Dosing Weight 120.909, kg, PRN Nausea & Vomiting, Start date: 05/18/18 13:51:00 CDT Inactive 05/18/2018 [facility] Naloxone Notes: Same as Narcan Inactive 05/18/2018 [facility] Hydromorphone Notes: Same as: Dilaudid Inactive 05/18/2018 [facility] Fentanyl 50 microgram, Route: IVP, Q5Min, Dosing Weight 120.909, kg, PRN Pain Score 7-10, Priority: Routine, Start date: 05/18/18 13:51:00 CDT, Duration: 2 doses or times, Stop date: Limited # of times Inactive 05/18/2018 [facility] Flumazenil Notes: (Same as: Ro mazicon) Inactive 05/18/2018 [facility] Albuterol 0.83 MG/ML Inhalant Solution Notes: SEE RT DOCUMENTATION (Same as: Proventil) Inactive 05/18/2018 [facility] Ketorolac 4 days MEDICA TION WASTE Product Size: 30 mg Product Wasted: ___ mg Inactive 05/18/2018 [facility] Labetalol Notes: (Same as: Nor modyne, Trandate) Push over 2 minutes Give bolus over 2-3 minutes. Inactive 05/18/2018 [facility] Hydralazine Notes: (Same as: A presoline) Push over 5 minutes Inactive 05/18/2018 [facility] Acetaminophen Notes: Max aceta minophen 4000 mg/day (4 gm/day). (Same as: Tylenol Extra Strength) Inactive 05/18/2018 [facility] Oxycodone Notes: (Same as: Jessy icodone) Inactive 05/18/2018 [facility] lidocaine (ANES) Route: IV, Dr ug form: INJ, ONCE, Stop date: 05/18/18 13:43:00 CDT Inactive 05/18/2018 [facility] ondansetron (ANES) Route: IV, Drug form: INJ, ONCE, Stop date: 05/18/18 13:43:00 CDT Inactive 05/18/2018 [facility] propofol (ANES) Route: IV, Juan g form: INJ, ONCE, Stop date: 05/18/18 13:43:00 CDT Inactive 05/18/2018 [facility] dexamethasone (ANES) Route: IV , Drug form: INJ, ONCE, Stop date: 05/18/18 13:43:00 CDT Inactive 05/18/2018 [facility] ketOROLAC (ANES) IV, ONCE Inactive 05/18/2018 [facility] fentaNYL (ANES) Route: IV, Juan g form: INJ, ONCE, Stop date: 05/18/18 13:43:00 CDT Inactive 05/18/2018 [facility] midazolam (ANES) Route: IV, Dr ug form: SOLN, ONCE, Stop date: 05/18/18 13:43:00 CDT Inactive 05/18/2018 [facility] vancomycin (ANES) 1000 mg Rout e: IV, Drug form: INJ, Start date: 05/18/18 13:16:00 CDT, Stop date: 05/18/18 14:16:00 CDT Inactive 05/18/2018 [facility] Lactated Ringers Injection IV (ANES) 1000 mL Route: IV, Total Volume: 1,000, Start date: 05/18/18 13:16:00 CDT, Stop date: 05/18/18 14:16:00 CDT Inactive 05/18/2018 [facility] Sodium Chloride 0.9% IV 1,000 mL 1,000 mL, Rate: 25 ml/hr, Infuse over: 40 hr, Route: IV, Dosing Weight 120.909 kg, Total Volume: 1,000, Start date: 05/18/18 13:01:00 CDT, Duration: 30 day, Stop date: 06/17/18 13:00:00 CDT, 2.41, m2 Inactiv e 05/18/2018 [facility] Calcium Chloride 0.0014 MEQ/ML / Potassi um Chloride 0.004 MEQ/ML / Sodium Chloride 0.103 MEQ/ML / Sodium Lactate 0.028 MEQ/ML Injectable Solution 1,000 mL, Rate: 25 ml/hr, Infuse over: 4 0 hr, Route: IV, Dosing Weight 120.909 kg, Total Volume: 1,000, Start date: 05/18/18 13:01:00 CDT, Duration: 30 day, Stop date: 06/17/18 13:00:00 CDT, 2.41, m2 Inactive 05/18/2018 [facility] vancomycin + Sodium Chloride 0.9% IV 250 mL 1,000 mg, Route: IVPB, [id number], Dosing Weight 119.091, kg, Start date: 05/17/18 14:00:00 CDT, Duration: 7 day, Stop date: 05/24/18 2:00:00 CDT, ABX Indication: Skin/Soft Tissue Infection No Longer Active 05/17/2018 [facility] influenza virus vaccine, inactivated Notes: (Same as: Fluzone Quadrivalent, Fluarix Quadrivalent) For 3 years of age and older (0.5 mL IM) Shake well before use N o Longer Active 05/17/2018 [facility] Vancomycin 1,000 mg, Route: IV PB, Drug form: INJ, [id number], Dosing Weight 119.091, kg, Start date: 05/17/18 3:00:00 CDT, Duration: 7 day, Stop date: 05/23/18 15:00:00 CDT, ABX Indication: Pneumonia Inactive 05/17/2018 [facility] Enoxaparin Notes: (Same as: Lo venox) No Longer Active 05/17/2018 [facility] Saline Flush 0.9% Notes: (Same as: BD Posiflush) No Longer Active 05/17/2018 [facility] Lactated Ringers IV 1,000 mL 1 ,000 mL, Rate: 75 ml/hr, Infuse over: 13.3 hr, Route: IV, Dosing Weight 119.091 kg, Total Volume: 1,000, Start date: 05/17/18 2:46:00 CDT, Duration: 30 day, Stop date: 06/16/18 2:45:00 CDT, 2.39, m2 No Longer Active 05/17/2018 [facility] Ondansetron Notes: (Same as: Kathy diaz) MEDICATION WASTE Product Size: 4 mg Product Wasted: ___ mg No Longer Active 05/17/2018 [facility] Acetaminophen Notes: Do not ex ceed 4 gm/day. (Same as: Tylenol) No Longer Active 05/17/2018 [facility] Morphine 2 mg, 1 mL, Route: IV P, Drug form: SOLN, Q4H, Dosing Weight 119.091, kg, PRN Pain Score 7-10, Start date: 05/17/18 2:46:00 CDT, Duration: 30 day, Stop date: 06/16/18 2:45:00 CDT No Longer Active 05/17/2018 [facility] Ondansetron Notes: (Same as: Kathy diaz) MEDICATION WASTE Product Size: 4 mg Product Wasted: ___ mg Inactive 05/17/2018 [facility] Morphine Notes: (Same as:MORPh ine Sulfate) Inactive 05/17/2018 [facility] Vancomycin 2001 mg: infuse ov er 2.5 hours For adult patients only: Round to nearest 250 mg per Medical Staff approval MEDICATION WASTE Product Size: 1000 mg Product Wasted: ___ mg Inactive 05/17/2018 [facility] Methocarbamol 750 MG Oral Tablet [Robaxin] 750 mg = 1 tab, PO, TID, PRN as needed for pain, X 7 day, # 30 tab, 0 Refill(s) Active 01/13/2018 [facility] tramadol hydrochloride 50 MG Oral Tablet 50 mg = 1 tab, PO, Q6H, PRN Pain, not to exceed 400 mg/day, X 5 day, # 24 tab, 0 Refill(s) Active 01/13/2018 [facility] ibuprofen 800 mg oral tablet 8 00 mg = 1 tab, PO, Q8H, PRN Fever or Pain, Take with food, X 10 day, # 30 tab, 0 Refill(s) Active 01/13/2018 [facility] Acetaminophen 325 MG / Hydrocodone Nereyda trate 7.5 MG Oral Tablet [[place] 7.5/325] Notes: Same as [place] 325-7.5mg Do not exceed 4gm/day of acetaminophen. Inactive 01/13/2018 [facility] Valium Notes: (Same as: Valium) Inactive 01/13/2018 [facility] Ketorolac 4 days MEDICA TION WASTE Product Size: 30 mg Product Wasted: ___ mg Inactive 01/13/2018 [facility] Tylenol Notes: Do not exceed 4 gm/day. (Same as: Tylenol) Inactive 01/12/2018 [facility] Buspirone Notes: (Same As: BuS par) Inactive 12/31/2016 [facility] Phenergan Notes: (Same as: Phe nergan) Inactive 12/31/2016 [facility] Phenergan 25 mg oral tablet 25 mg, PO, Q6H, PRN Nausea & Vomiting, X 5 day, # 20 tab, 0 Refill(s), Pharmacy: [facility] [id number] Active 12/31/2016 [facility] Sodium Chloride 0.154 MEQ/ML Injectable Solution 1,000 mL, Rate: 150 ml/hr, Infuse over: 6.7 hr, Route: IV, Dosing Weight 109 kg, Total Volume: 1,000, Start date: 12/31/16 9:30:00 CDT, Duration: 30 day, Stop date: 01/30/17 9:29:00 CDT Inactive 12/31/2016 [facility] Trazodone Notes: (Same As: Hawk yrel) Inactive 12/31/2016 [facility] Cipro Notes: May interfere w/e nteral feedings - Take 1 hr before or 2 hrs after antacids, dairy pdt & minerals. On empty stomach. Inactive 12/31/2016 [facility] Flagyl Notes: (Same as: Flagyl ) Take with food/ avoid alcohol Inactive 12/31/2016 [facility] Fluoxetine Notes: (Same as: Pr ozac) Inactive 12/31/2016 [facility] Levsin SL Notes: (Same as: Lev sin) Take 30 min before meal Inactive 12/31/2016 [facility] Promethazine Notes: Do not giv e IV push. (Same as: Phenergan) Inactive 12/31/2016 [facility] Zofran 4 mg, Route: IVP, Drug form: INJ, ONCE, Dosing Weight 109.091, kg, Priority: STAT, Start date: 12/31/16 4:33:00 CDT, Stop date: 12/31/16 4:33:00 CDT Inactive 12/31/2016 [facility] Morphine 4 mg, Route: IVP, ONC E, Dosing Weight 109.091, kg, Priority: STAT, Start date: 12/31/16 4:30:00 CDT, Stop date: 12/31/16 4:30:00 CDT Inactive 12/31/2016 [facility] Rocephin Notes: (Same As: Roctimo phin). Use with 100 mL NS and infuse over 30 min MEDICATION WASTE Product Size: 1000 mg Product Wasted: ___ mg Inactive 12/31/2016 [facility] Ondansetron Notes: (Same as: Kathy diaz) MEDICATION WASTE Product Size: 4 mg Product Wasted: ___ mg No Longer Active 12/31/2016 [facility] Morphine Notes: (Same as:MORPh ine Sulfate) No Longer Active 12/31/2016 [facility] Saline Flush 0.9% Notes: (Same as: BD Posiflush) No Longer Active 12/31/2016 [facility] Sodium Chloride 0.154 MEQ/ML Injectable Solution 1,000 mL, 2,000 ml/hr, Infuse Over: 30 minutes, Route: IV, 1,000, Drug form: INJ, ONCE, Priority: STAT, Dosing Weight 109.091 kg, Start date: 12/30/16 23:55:00 CDT, Duration: 1 doses or times, Stop date: 12/30/16 23:55:00 CDT No Longer Active 12/31/2016 [facility] Ciprofloxacin 500 MG Oral Tablet [Cipro] 500 mg = 1 tab, PO, Q12H, X 7 day, # 14 tab, 0 Refill(s), Pharmacy: [facility] [id number] Active 12/25/2016 [facility] Acetaminophen 300 MG / Codeine Phosphate 30 MG Oral Tablet [Tylenol with Codeine #3] 1 - 2 tab, PO, Q4H, PRN Pain, X 2 day, # 10 tab, 0 Refill(s) No Longer Active 12/25/2016 [facility] Metronidazole 500 MG Oral Tablet [Flagyl] 500 mg = 1 tab, PO, BID, X 7 day, # 14 tab, 0 Refill(s), Pharmacy: [facility] [id number] Active 12/25/2016 [facility] Sodium Chloride 0.154 MEQ/ML Injectable Solution 500 mL, 500 ml/hr, Infuse Over: 1 hr, Route: IV, 500, Drug form: INJ, ONCE, Priority: STAT, Dosing Weight 109.091 kg, Start date: 12/25/16 17:53:00 CDT, Duration: 1 doses or times, Stop date: 12/25/16 17:53:00 CDT Inactive 12/25/2016 [facility] Acetaminophen 300 MG / Codeine Phosphate 30 MG Oral Tablet [Tylenol with Codeine #3] Notes: Do not exceed 4gm/day of acetamin ophen. (Same as: Tylenol with Codeine # 3) Inactive 12/25/2016 [facility] Flagyl Notes: (Same as: Flagyl ) Avoid alcohol. Inactive 12/25/2016 [facility] Cipro Notes: Do not refrigerate Inactive 12/25/2016 [facility] Saline Flush 0.9% Notes: (Same as: BD Posiflush) Inactive 12/25/2016 [facility] Famotidine 40 MG Oral Tablet [Pepcid] 40 mg = 1 tab, PO, Daily, # 30 tab, 0 Refill(s) Active 07/20/2016 [facility] Sucralfate 1000 MG Oral Tablet [Carafate] 1 gm = 1 tab, PO, TID, # 90 tab, 0 Refill(s) Active 07/20/2016 [facility] Phenergan 25 mg oral tablet 25 mg = 1 tab, PO, Q4H, PRN Nausea, X 5 day, # 30 tab, 0 Refill(s) Active 07/20/2016 [facility] Diflunisal 500 MG Oral Tablet [Dolobid] 500 mg = 1 tab, PO, Q8H, # 90 tab, 0 Refill(s) Active 07/20/2016 [facility] Zofran 4 mg, Route: IVP, Drug form: INJ, ONCE, Dosing Weight 104.545, kg, Priority: STAT, Start date: 07/19/16 21:44:00 ALLERGY AND IMMUNOLOGY CHIEF, Stop date: 07/19/16 21:44:00 ALLERGY AND IMMUNOLOGY CHIEF Inactive 07/20/2016 [facility] Ketorolac 30 mg, Route: IVP, D rug form: INJ, ONCE, Dosing Weight 104.545, kg, Priority: STAT, Start date: 07/19/16 21:28:00 ALLERGY AND IMMUNOLOGY CHIEF, Stop date: 07/19/16 21:28:00 ALLERGY AND IMMUNOLOGY CHIEF Inactive 07/20/2016 [facility] Zofran Notes: (Same as: Zoan ) MEDICATION WASTE Product Size: 4 mg Product Wasted: ___ mg Inactive 07/20/2016 [facility] Famotidine 20 MG Oral Tablet [Pepcid] 20 mg, 1 tab, Route: PO, ONCE, Dosing Weight 104.545, kg, Start date: 07/19/16 19:40:00 ALLERGY AND IMMUNOLOGY CHIEF, Stop date: 07/19/16 19:40:00 ALLERGY AND IMMUNOLOGY CHIEF Inactive 07/20/2016 [facility] Sodium Chloride 0.154 MEQ/ML Injectable Solution 1,000 mL, 1,000 ml/hr, Infuse Over: 1 hr, Route: IV, 1,000, Drug form: INJ, ONCE, Priority: STAT, Dosing Weight 104.545 kg, Start date: 07/19/16 19:40:00 ALLERGY AND IMMUNOLOGY CHIEF, Duration: 1 doses or times, Stop date: 07/19/16 19:40:00 ALLERGY AND IMMUNOLOGY CHIEF Inactive 07/20/2016 [facility] GI cocktail 30 mL, Route: PO, Dosing Weight 104.545, kg, ONCE, STAT, Start date: 07/19/16 19:39:00 ALLERGY AND IMMUNOLOGY CHIEF, Stop date: 07/19/16 19:39:00 ALLERGY AND IMMUNOLOGY CHIEF Inactive 07/20/2016 [facility] Carafate Notes: May interfere w/enteral feeds - Take 1 hr before or 2 hr after antacids, dairy pdt, meals & minerals - On empty stomach. (Same As: Carafate) Inactive 07/20/2016 [facility] Cyclobenzaprine hydrochloride 10 MG Oral Tablet [Flexeril] 10 mg, PO, TID, PRN Muscle Spasm, X 10 d ay, # 30 tab, 0 Refill(s) Active 04/23/2016 [facility] tramadol hydrochloride 50 MG Oral Tablet 50 mg, Route: PO, Drug form: TAB, ONCE, Dosing Weight 94.091, kg, Priority: STAT, Start date: 04/23/16 1:34:00 CDT, Stop date: 04/23/16 1:34:00 CDT Inactive 04/23/2016 [facility] Valium 10 mg, Route: PO, ONCE, Dosing Weight 94.091, kg, Start date: 04/23/16 1:33:00 CDT, Stop date: 04/23/16 1:33:00 CDT Inactive 04/23/2016 [facility] Ketorolac 60 mg, Route: IM, Dr del [place] form: INJ, ONCE, Dosing Weight 94.091, kg, Priority: STAT, Start date: 04/23/16 1:33:00 CDT, Stop date: 04/23/16 1:33:00 CDT Inactive 04/23/2016 [facility] Methocarbamol 750 MG Oral Tablet [Robaxin] 750 mg = 1 tab, PO, TID, PRN as needed for pain, X 10 day, # 30 tab, 0 Refill(s) Active 04/16/2016 [facility] Acetaminophen 300 MG / Codeine Phosphate 30 MG Oral Tablet [Tylenol with Codeine #3] 1 - 2 tab, PO, Q4H, PRN Pain, X 2 day, # 24 tab, 0 Refill(s) No Longer Active 04/16/2016 [facility] Flexeril 10 mg, Route: PO, ONC E, Dosing Weight 103.182, kg, Priority: STAT, Start date: 04/16/16 3:20:00 CDT, Stop date: 04/16/16 3:20:00 CDT Inactive 04/16/2016 [facility] Zofran ODT 4 mg, Route: PO, Dr del toro form: TABDIS, ONCE, Dosing Weight 103.182, kg, Priority: STAT, Start date: 04/16/16 2:09:00 CDT, Stop date: 04/16/16 2:09:00 CDT Inactive 04/16/2016 [facility] Dilaudid 1 mg, Route: IM, ONCE , Dosing Weight 103.182, kg, Priority: STAT, Start date: 04/16/16 2:09:00 CDT, Stop date: 04/16/16 2:09:00 CDT Inactive 04/16/2016 [facility] promethazine 12.5 mg oral tablet 12.5 mg = 1 tab, PO, Q6H, PRN Nausea & Vomiting, X 5 day, # 20 tab, 0 Refill(s) Active 04/14/2016 [facility] Hyoscyamine Sulfate 0.125 MG Sublingual Tablet [Levsin ] 0.125 mg = 1 tab, SL, Q6H, PRN abdominal spasm, # 28 tab, 0 Refill(s) Active 04/14/2016 [facility] omeprazole 40 mg oral delayed release capsule 40 mg = 1 cap, PO, Daily, # 30 cap, 0 Refill(s) Active 04/14/2016 [facility] Promethazine Notes: Do not giv e IV push. (Same as: Phenergan) Inactive 04/14/2016 [facility] GI cocktail 30 mL, Route: PO, Dosing Weight 103.182, kg, ONCE, STAT, Start date: 04/14/16 2:12:00 CDT, Stop date: 04/14/16 2:12:00 CDT Inactive 04/14/2016 [facility] pantoprazole 40 mg, Route: IVP , ONCE, Dosing Weight 103.182, kg, Priority: STAT, Start date: 04/14/16 2:12:00 CDT, Stop date: 04/14/16 2:12:00 CDT Inactive 04/14/2016 [facility] Morphine 4 mg, Route: IVP, Juan g form: INJ, ONCE, Dosing Weight 103.182, kg, Priority: STAT, Start date: 04/14/16 0:57:00 CDT, Stop date: 04/14/16 0:57:00 CDT Inactive 04/14/2016 [facility] pantoprazole 40 mg, Route: IVP , ONCE, Dosing Weight 103.182, kg, For IV push reconstitute with 10 ml 0.9% sodium chloride and push over at least 3 minutes, Priority: STAT, Start date: 04/14/16 0:57:00 CDT, Stop date: 04/14/16 0:57:00 CDT Inactive 04/14/2016 [facility] Ondansetron 4 mg, Route: IVP, ONCE, Dosing Weight 103.182, kg, Priority: STAT, Start date: 04/14/16 0:57:00 CDT, Stop date: 04/14/16 0:57:00 CDT Inactive 04/14/2016 [facility] Sodium Chloride 0.154 MEQ/ML Injectable Solution 1,000 mL, 2,000 ml/hr, Infuse Over: 30 minutes, Route: IV, ONCE, Priority: STAT, Dosing Weight 103.182 kg, Start date: 04/14/16 0:57:00 CDT, Duration: 1 doses or times, Stop date: 04/14/16 0:57:00 CDT Inactive 04/14/2016 [facility] Saline Flush 0.9% Notes: (Same as: BD Posiflush) Inactive 04/14/2016 [facility] Reglan 10 mg, Route: IVP, Drug form: INJ, ONCE, Dosing Weight 100.455, kg, Priority: STAT, Start date: 02/24/16 1:09:00 CDT, Stop date: 02/24/16 1:09:00 CDT Inactive 02/24/2016 [facility] Levsin Notes: (Same as: Dixie ) MEDICATION WASTE Product Size: 0.5 mg Product Wasted: ___ mg Inactive 02/24/2016 [facility] Dicyclomine Hydrochloride 20 MG Oral Tablet [Bentyl] 20 mg = 1 tab, PO, QID, # 28 tab, 0 Refill(s) Active 02/24/2016 [facility] Metoclopramide 10 MG Oral Tablet [Reglan] 10 mg = 1 tab, PO, QID-Before Meals, X 10 day, # 40 tab, 0 Refill(s) Active 02/24/2016 [facility] Morphine 4 mg, Route: IVP, Juan g form: INJ, ONCE, Dosing Weight 100.455, kg, Priority: STAT, Start date: 02/24/16 0:09:00 CDT, Stop date: 02/24/16 0:09:00 CDT Inactive 02/24/2016 [facility] Magnesium Sulfate 1 gm, Route: IV, ONCE, Dosing Weight 100.455, kg, Start date: 02/23/16 23:50:00 CDT, Stop date: 02/23/16 23:50:00 CDT No Longer Active 02/24/2016 [facility] Zofran 4 mg, Route: IVP, Drug form: INJ, ONCE, Dosing Weight 100.455, kg, Priority: STAT, Start date: 02/23/16 23:34:00 CDT, Stop date: 02/23/16 23:34:00 CDT Inactive 02/24/2016 [facility] Sodium Chloride 0.154 MEQ/ML Injectable Solution 1,000 mL, 1,000 ml/hr, Infuse Over: 1 hr, Route: IV, ONCE, Priority: STAT, Dosing Weight 100.455 kg, Start date: 02/23/16 23:34:00 CDT, Duration: 1 doses or times, Stop date: 02/23/16 23:34:00 CDT Inactive 02/24/2016 [facility] Saline Flush 0.9% Notes: (Same as: BD Posiflush) No Longer Active 02/24/2016 [facility] Morphine Notes: (Same as:MORPh ine Sulfate) Inactive 01/17/2016 [facility] Hyoscyamine Sulfate 0.125 MG Oral Tablet [Levsin] 0.125 mg = 1 tab, PO, QID, PRN Spasm, # 40 tab, 0 Refill(s) Active 01/17/2016 [facility] Ondansetron 4 MG Disintegrating Tablet [Zofran] 4 mg = 1 tab, PO, BID, PRN Nausea and Vomiting, Dissolve tab under tongue, X 5 day, # 10 tab, 0 Refill(s) Active 01/17/2016 [facility] Bentyl 20 mg, Route: IM, ONCE, Dosing Weight 100.455, kg, Start date: 01/16/16 23:00:00 CDT, Stop date: 01/16/16 23:00:00 CDT Inactive 01/17/2016 [facility] Zofran 4 mg, Route: IVP, Drug form: INJ, ONCE, Dosing Weight 100.455, kg, Priority: STAT, Start date: 01/16/16 22:59:00 CDT, Stop date: 01/16/16 22:59:00 CDT Inactive 01/17/2016 [facility] Morphine Notes: (Same as:MORPh ine Sulfate) Inactive 01/17/2016 [facility] Ondansetron Notes: (Same as: Kathy diaz) MEDICATION WASTE Product Size: 4 mg Product Wasted: ___ mg Inactive 01/17/2016 [facility] Famotidine Notes: (Same as: Pe pcid) Can be dilute in 5- 10cc NS IVP: Slow IV push over at least 2 minutes. Inactive 01/17/2016 [facility] Sodium Chloride 0.154 MEQ/ML Injectable Solution 1,000 mL, 1,000 ml/hr, Infuse Over: 1 hr, Route: IV, 1,000, Drug form: INJ, ONCE, Priority: STAT, Dosing Weight 100.455 kg, Start date: 01/16/16 21:40:00 CDT, Duration: 1 doses or times, Stop date: 01/16/16 21:40:00 CDT Inactive 01/17/2016 [facility] Promethazine Hydrochloride 25 MG Oral Ta blet [Phenergan] 25 mg = 1 tab, PO, Q6H, PRN Nausea, X 4 day, # 15 tab, 0 Refill(s) Active 10/13/2015 [facility] Ranitidine 150 MG Oral Tablet [Zantac] 150 mg = 1 tab, PO, BID, # 60 tab, 0 Refill(s) Active 10/13/2015 [facility] Dicyclomine Hydrochloride 20 MG Oral Tablet [Bentyl] 20 mg = 1 tab, PO, QID-Before Meals, # 40 tab, 0 Refill(s) Active 10/13/2015 [facility] Promethazine Notes: Do not giv e IV push. (Same as: Phenergan) Inactive 10/13/2015 [facility] Sodium Chloride 0.154 MEQ/ML Injectable Solution 1,000 mL, 1000 ml/hr, Infuse Over: 1 hr, Route: IV, 1,000, Drug form: INJ, ONCE, Priority: STAT, Dosing Weight 101.818 kg, Start date: 10/13/15 3:32:00, Duration: 1 doses or times, Stop date: 10/13/15 3:32:00 Inactive 10/13/2015 [facility] Morphine Notes: (Same as:MORPh ine Sulfate) Inactive 10/13/2015 [facility] Ondansetron Notes: (Same as: Kathy diaz) MEDICATION WASTE Product Size: 4 mg Product Wasted: ___ mg Inactive 10/13/2015 [facility] Famotidine Notes: (Same as: Pe pcid) Can be dilute in 5- 10cc NS IVP: Slow IV push over at least 2 minutes. Inactive 10/13/2015 [facility] GI cocktail Notes: [place] = antacid with simethicone 22.5 mL - lidocaine viscous 7.5 mL Inactive 10/13/2015 [facility] Saline Flush 0.9% Notes: (Same as: BD Posiflush) Inactive 10/13/2015 [facility] Sodium Chloride 0.154 MEQ/ML Injectable Solution 1,000 mL, 1000 ml/hr, Infuse Over: 1 hr, Route: IV, 1,000, Drug form: INJ, ONCE, Priority: STAT, Dosing Weight 101.818 kg, Start date: 10/13/15 2:13:00, Duration: 1 doses or times, Stop date: 10/13/15 2:13:00 Inactive 10/13/2015 [facility] Diphenhydramine 25 mg, Route: IVP, ONCE, Dosing Weight 107.273, kg, Priority: STAT, Start date: 07/04/15 0:52:00, Stop date: 07/04/15 0:52:00 Inactive 07/04/2015 [facility] Famotidine 20 mg, Route: IVP, ONCE, Dosing Weight 107.273, kg, Priority: STAT, Start date: 07/04/15 0:52:00, Stop date: 07/04/15 0:52:00 Inactive 07/04/2015 [facility] Morphine 4 mg, Route: IVP, ONC E, Dosing Weight 107.273, kg, Priority: STAT, Start date: 07/04/15 0:52:00, Stop date: 07/04/15 0:52:00 Inactive 07/04/2015 [facility] Sodium Chloride 0.154 MEQ/ML Injectable Solution 1,000 mL, 1,000 ml/hr, Infuse Over: 1 hr, Route: IV, ONCE, Priority: STAT, Dosing Weight 107.273 kg, Start date: 07/04/15 0:52:00, Duration: 1 doses or times, Stop date: 07/04/15 0:52:00 Inactive 07/04/2015 [facility] GI cocktail 30 mL, Route: PO, Dosing Weight 107.273, kg, ONCE, STAT, Start date: 07/04/15 0:52:00, Stop date: 07/04/15 0:52:00 Inactive 07/04/2015 [facility] Acetaminophen 325 MG / Hydrocodone Nereyda trate 5 MG Oral Tablet Notes: (Same as: [place] 325/5) Do not ex ceed 4gm/day of acetaminophen. Inactive 05/17/2015 [facility] Ibuprofen 600 mg, Route: PO, O NCE, Dosing Weight 112.273, kg, Priority: STAT, Start date: 05/17/15 2:14:00, Stop date: 05/17/15 2:14:00 Inactive 05/17/2015 [facility] omeprazole 40 mg oral delayed release capsule 40 mg = 1 cap, PO, Daily, # 30 cap, 0 Refill(s) Active 05/15/2015 [facility] Dicyclomine Hydrochloride 20 MG Oral Tablet [Bentyl] 20 mg = 1 tab, PO, QID-Before Meals, # 28 tab, 0 Refill(s) Active 05/15/2015 [facility] Ondansetron 4 MG Oral Tablet [Zofran] 4 mg = 1 tab, PO, TID, X 5 day, # 15 tab, 0 Refill(s) Active 05/15/2015 [facility] Acetaminophen 325 MG / Hydrocodone Nereyda trate 7.5 MG Oral Tablet [[place] 7.5/325] 1 tab, Route: PO, Drug Form: TAB, Dosing Weight 122.727, kg, ONCE, STAT, Start date: 05/15/15 7:15:00, Stop date: 05/15/15 7:15:00 Inactive 05/15/2015 [facility] Ketorolac 30 mg, Route: IVP, D rug form: INJ, ONCE, Dosing Weight 122.727, kg, Priority: STAT, Start date: 05/15/15 7:14:00, Stop date: 05/15/15 7:14:00 Inactiv e 05/15/2015 [facility] Zofran 4 mg, Route: IVP, Drug form: INJ, ONCE, Dosing Weight 122.727, kg, Priority: STAT, Start date: 05/15/15 6:28:00, Stop date: 05/15/15 6:28:00 Inactive 05/15/2015 [facility] Morphine 4 mg, Route: IVP, Juan g form: INJ, ONCE, Dosing Weight 122.727, kg, Priority: STAT, Start date: 05/15/15 4:19:00, Stop date: 05/15/15 4:19:00 Inactive 05/15/2015 [facility] Zofran 4 mg, Route: IVP, Drug form: INJ, ONCE, Dosing Weight 122.727, kg, Priority: STAT, Start date: 05/15/15 4:19:00, Stop date: 05/15/15 4:19:00 Inactive 05/15/2015 [facility] Sodium Chloride 0.154 MEQ/ML Injectable Solution 1,000 mL, 1,000 ml/hr, Infuse Over: 1 Hour, Route: IV, ONCE, Priority: STAT, Dosing Weight 122.727 kg, Start date: 05/15/15 4:19:00, Duration: 1 doses or times, Stop date: 05/15/15 4:19:00 Inactive 05/15/2015 [facility] Metoclopramide 10 MG Oral Tablet [Reglan] 10 mg = 1 tab, PO, QID, PRN Other -See Comment, X 7 day, # 28 tab, 0 Refill(s) Active 02/14/2015 [facility] PlasmaLyte A PH-7.4 1,000 mL 1 ,000 mL, Rate: 2,000 ml/hr, Infuse over: 0.5 hr, Route: IV, Dosing Weight 112.727 kg, Total Volume: 1,000, Start date: 02/14/15 1:11:00, Duration: 1 doses or times, Stop date: 02/14/15 1:40:00 Inactive 02/14/2015 [facility] Benadryl Notes: (Same as: Vikki dryl) Inactive 02/14/2015 [facility] Reglan Notes: (Same as: Reglan) Inactive 02/14/2015 [facility] Ondansetron 4 MG Oral Tablet [Zofran] 4 mg = 1 tab, PO, BID, # 10 tab, 0 Refill(s) Active 09/30/2014 [facility] Morphine 4 mg, Route: IV, Drug form: INJ, ONCE, Dosing Weight 118.182, kg, Start date: 09/30/14 0:32:00, Stop date: 09/30/14 0:32:00 Inactive 09/30/2014 [facility] Morphine 4 mg, Route: IM, Drug form: INJ, ONCE, Dosing Weight 118.182, kg, Priority: STAT, Start date: 09/30/14 0:31:00, Stop date: 09/30/14 0:31:00 Inactive 09/30/2014 [facility] Saline Flush 0.9% Notes: Same as: BD Posiflush Sterile No Longer Active 09/30/2014 [facility] Sodium Chloride 0.154 MEQ/ML Injectable Solution 1,000 mL, Infuse Over: 1 hr, Route: IV, ONCE, Priority: STAT, Dosing Weight 118.182 kg, Start date: 09/29/14 23:25:00, Duration: 1 doses or times, Stop date: 09/29/14 23:25:00 Inactive 09/30/2014 [facility] Allergies, Adverse Reactions, Alerts Substance Category Reaction Severity Reaction type Status Date Reported Comments Source Bactrim Assertion Drug allergy Active [facility] ciprofloxacin Assertion Drug allergy Active [facility] penicillin Assertion Drug allergy Active [facility] clindamycin Assertion Drug allergy Active [facility] Keflex<sup>1, 2</sup> Assertion Drug allergy Active [facility] ceftriaxone in May 2018 hospitalization Rash to Keflex 2013; tolerated ceftriaxone in 2016 [facility] Immunizations Immunization Date Given Site Status Last Updated Comments Source influenza virus vaccine, inactivated 08/25/2018 Right deltoid completed [facility], [facility] [place] Results Order Name Results Value Reference Range Date Interpretation Comments Source TOXICOLOGY Vanco Tr 11.7 03/26/2020 [facility] TOXICOLOGY Vanco Tr TND 2200 03/26/2020 [facility] CHEM PANEL Glucose Lvl 101 70 - 99 03/25/2020 [facility] CHEM PANEL BUN 10 7 - 22 03/25/2020 [facility] CHEM PANEL Creatinine Lvl 0.64 0.50 - 1.40 03/25/2020 [facility] CHEM PANEL Sodium Lvl 137 135 - 145 03/25/2020 [facility] CHEM PANEL Potassium Lvl 4.1 3.5 - 5.1 03/25/2020 [facility] CHEM PANEL Chloride Lvl 104 95 - 109 03/25/2020 [facility] CHEM PANEL CO2 30 24 - 32 03/25/2020 [facility] CHEM PANEL Calcium Lvl 8.4 8.5 - 10.5 03/25/2020 [facility] CHEM PANEL AGAP 7.1 10.0 - 20.0 03/25/2020 [facility] CHEM PANEL eGFR 116 03/25/2020 Result Comment: The eGFR is calculated using the CKD-EPI formula. In most young, healthy individuals the eGFR will be >90 mL/min/1.73m2. The eGFR declines with age. An eGFR of 60-89 may be normal in some populations, particularly the elderly, for whom the CKD-EPI formula has not been extensively validated. Use of the eGFR is not recommended in the following populations:

Individuals with unstable creatinine concentrations, including patients and those with serious co-morbid conditions.

Patients with extremes in muscle mass or diet.

The data above are obtained from the National Kidney Disease Education Program (NKDEP) which additionally recommends that when the eGFR is used in patients with extremes of body mass index for purposes of drug dosing, the eGFR should be multiplied by the estimated BMI. [facility] TOXICOLOGY Vanco Tr 21.4 03/25/2020 [facility] TOXICOLOGY Vanco Tr TND 1000 03/25/2020 [facility] TOXICOLOGY Vanco Tr 13.7 03/24/2020 [facility] TOXICOLOGY Vanco Tr TND 1100 03/24/2020 [facility] TRIMETHOPRIM+SULFAMETHOXAZOLE:SUSC:PT:ISOLATE:ORDQN:ID C Gram Stain Report No Wbc'S Or Organisms Seen 03/23/2020 [facility] TRIMETHOPRIM+SULFAMETHOXAZOLE:SUSC:PT:ISOLATE:ORDQN:ID C Culture: Aspirate/Body Fluid/Tissue Many Staphylococcus aureus 03/23/2020 [facility] TRIMETHOPRIM+SULFAMETHOXAZOLE:SUSC:PT:ISOLATE:ORDQN:ID C Staphylococcus aureus Staphylococcus aureus 03/23/2020 [facility] CHEM PANEL Glucose Lvl 92 70 - 99 03/23/2020 [facility] BUN 11 7 - 22 03/23/2020 [facility] CHEM PANEL Creatinine Lvl 0.64 0.50 - 1.40 03/23/2020 [facility] PAN[facility] Sodium Lvl 139 135 - 145 03/23/2020 [facility] CHE[facility] PANEL Potassium Lvl 3.7 3.5 - 5.1 03/23/2020 [facility] CHE[facility] PAN[facility] Chloride Lvl 107 95 - 109 03/23/2020 [facility] CHEM PANEL CO2 28 24 - 32 03/23/2020 [facility] CHE[facility] PANEL Calcium Lvl 8.2 8.5 - 10.5 03/23/2020 [facility] CHE[facility] PAN[facility] Albumin Lvl 2.8 3.5 - 5.0 03/23/2020 [facility] CHEM PANEL ALT 16 0 - 65 03/23/2020 [facility] CHEM PANEL AST 11 0 - 37 03/23/2020 [facility] CHE[facility] PAN[facility] AGAP 7.7 10.0 - 20.0 03/23/2020 [facility] CHEM PANEL B/C Ratio 17 6 - 25 03/23/2020 [facility] CHEM PANEL eGFR 117 03/23/2020 Result Comment: The eGFR is calculated using the CKD-EPI formula. In most young, healthy individuals the eGFR will be >90 mL/min/1.73m2. The eGFR declines with age. An eGFR of 60-89 may be normal in some populations, particularly the elderly, for whom the CKD-EPI formula has not been extensively validated. Use of the eGFR is not recommended in the following populations:

Individuals with unstable creatinine concentrations, including patients and those with serious co-morbid conditions.

Patients with extremes in muscle mass or diet.

The data above are obtained from the National Kidney Disease Education Program (NKDEP) which additionally recommends that when the eGFR is used in patients with extremes of body mass index for purposes of drug dosing, the eGFR should be multiplied by the estimated BMI. [facility] CHEM PANEL Total Protein 6.7 6.4 - 8.4 03/23/2020 [facility] Alk Phos 75 39 - 136 03/23/2020 [facility] CHEM PANEL Bili Total 0.5 0.2 - 1.3 03/23/2020 [facility] CHEM PANEL Globulin 3.9 2.7 - 4.2 03/23/2020 [facility] A/G Ratio 0.7 0.7 - 1.6 03/23/2020 [facility] HEMATOLOGY WBC 10.2 3.7 - 10.4 03/23/2020 [facility] HEMATOLOGY RBC 4.12 4.20 - 5.40 03/23/2020 [facility] HEMATOLOGY Hgb 12.2 12.0 - 16.0 03/23/2020 [facility] HEMATOLOGY Hct 36.5 36.0 - 48.0 03/23/2020 [facility] HEMATOLOGY MCV 88.6 80.0 - 98.0 03/23/2020 [facility] HEMATOLOGY MCH 29.5 27.0 - 31.0 03/23/2020 [facility] HEMATOLOGY MCHC 33.3 32.0 - 36.0 03/23/2020 [facility] HEMATOLOGY RDW 13.9 11.5 - 14.5 03/23/2020 [facility] HEMATOLOGY Platelet 226 133 - 450 03/23/2020 [facility] HEMATOLOGY MPV 8.3 7.4 - 10.4 03/23/2020 [facility] HEMATOLOGY Segs 63.8 45.0 - 75.0 03/23/2020 [facility] HEMATOLOGY Lymphocytes 21.4 20.0 - 40.0 03/23/2020 [facility] HEMATOLOGY Monocytes 9.2 2.0 - 12.0 03/23/2020 [facility] HEMATOLOGY Eosinophils 4.6 0.0 - 4.0 03/23/2020 [facility] HEMATOLOGY Basophils 1.0 0.0 - 1.0 03/23/2020 [facility] HEMATOLOGY Neutrophils # 6.5 1.5 - 8.1 03/23/2020 [facility] HEMATOLOGY Lymphocytes # 2.2 1.0 - 5.5 03/23/2020 [facility] HEMATOLOGY Monocytes # 0.9 0.0 - 0.8 03/23/2020 [facility] HEMATOLOGY Eosinophils # 0.5 0.0 - 0.5 03/23/2020 [facility] HEMATOLOGY Basophils # 0.1 0.0 - 0.2 03/23/2020 [facility] TOXICOLOGY Vanco Tr 14.1 11/03/2019 [facility] TOXICOLOGY Vanco Tr TND 10:00 11/03/2019 [facility] CHEM PANEL Glucose Lvl 99 70 - 99 11/03/2019 [facility] CHEM PANEL BUN 8 7 - 22 11/03/2019 [facility] CHEM PANEL Creatinine Lvl 0.59 0.50 - 1.40 11/03/2019 [facility] CHEM PANEL Sodium Lvl 137 135 - 145 11/03/2019 [facility] CHEM PANEL Potassium Lvl 4.0 3.5 - 5.1 11/03/2019 [facility] CHEM PANEL Chloride Lvl 108 95 - 109 11/03/2019 [facility] CHEM PANEL CO2 25 24 - 32 11/03/2019 [facility] CHEM PANEL Calcium Lvl 8.5 8.5 - 10.5 11/03/2019 [facility] CHEM PANEL Total Protein 6.4 6.4 - 8.4 11/03/2019 [facility] CHEM PANEL Albumin Lvl 2.8 3.5 - 5.0 11/03/2019 [facility] CHEM PANEL ALT 51 0 - 65 11/03/2019 [facility] CHEM PANEL AST 41 0 - 37 11/03/2019 [facility] CHEM PANEL Alk Phos 84 39 - 136 11/03/2019 [facility] CHEM PANEL Bili Total 0.4 0.2 - 1.3 11/03/2019 [facility] CHEM PANEL AGAP 8.0 10.0 - 20.0 11/03/2019 [facility] CHEM PANEL B/C Ratio 14 6 - 25 11/03/2019 [facility] CHEM PANEL Globulin 3.6 2.7 - 4.2 11/03/2019 [facility] CHEM PANEL A/G Ratio 0.8 0.7 - 1.6 11/03/2019 [facility] CHEM PANEL eGFR 121 11/03/2019 Result Comment: The eGFR is calculated using the CKD-EPI formula. In most young, healthy individuals the eGFR will be >90 mL/min/1.73m2. The eGFR declines with age. An eGFR of 60-89 may be normal in some populations, particularly the elderly, for whom the CKD-EPI formula has not been extensively validated. Use of the eGFR is not recommended in the following populations:

Individuals with unstable creatinine concentrations, including patients and those with serious co-morbid conditions.

Patients with extremes in muscle mass or diet.

The data above are obtained from the National Kidney Disease Education Program (NKDEP) which additionally recommends that when the eGFR is used in patients with extremes of body mass index for purposes of drug dosing, the eGFR should be multiplied by the estimated BMI. [facility] HEMATOLOGY Segs 65.6 45.0 - 75.0 11/03/2019 [facility] HEMATOLOGY Lymphocytes 20.6 20.0 - 40.0 11/03/2019 [facility] HEMATOLOGY Monocytes 8.8 2.0 - 12.0 11/03/2019 [facility] HEMATOLOGY Eosinophils 4.2 0.0 - 4.0 11/03/2019 [facility] HEMATOLOGY Basophils 0.8 0.0 - 1.0 11/03/2019 [facility] HEMATOLOGY Neutrophils # 6.0 1.5 - 8.1 11/03/2019 [facility] HEMATOLOGY Lymphocytes # 1.9 1.0 - 5.5 11/03/2019 [facility] HEMATOLOGY Monocytes # 0.8 0.0 - 0.8 11/03/2019 [facility] HEMATOLOGY Eosinophils # 0.4 0.0 - 0.5 11/03/2019 [facility] HEMATOLOGY Basophils # 0.1 0.0 - 0.2 11/03/2019 [facility] HEMATOLOGY WBC 9.1 3.7 - 10.4 11/03/2019 [facility] RBC 4.27 4.20 - 5.40 11/03/2019 [facility] HEMATOLOGY Hgb 12.4 12.0 - 16.0 11/03/2019 [facility] HEMATOLOGY Hct 38.1 36.0 - 48.0 11/03/2019 [facility] MCV 89.2 80.0 - 98.0 11/03/2019 [facility] MCH 29.0 27.0 - 31.0 11/03/2019 [facility] MCHC 32.5 32.0 - 36.0 11/03/2019 [facility] RDW 13.1 11.5 - 14.5 11/03/2019 [facility] HEMATOLOGY Platelet 210 133 - 450 11/03/2019 [facility] MPV 8.9 7.4 - 10.4 11/03/2019 [facility] SPECIAL CHEMISTRY Hgb A1C 5.3 <=5.6 % 11/03/2019 [facility] CHEM PANEL Glucose Lvl 96 70 - 99 11/02/2019 [facility] CHEM PANEL BUN 9 7 - 22 11/02/2019 [facility] CHEM PANEL Creatinine Lvl 0.70 0.50 - 1.40 11/02/2019 [facility] CHEM PANEL Sodium Lvl 140 135 - 145 11/02/2019 [facility] CHEM PANEL Potassium Lvl 4.0 3.5 - 5.1 11/02/2019 [facility] CHEM PANEL Chloride Lvl 109 95 - 109 11/02/2019 [facility] CHEM PANEL CO2 26 24 - 32 11/02/2019 [facility] CHEM PANEL Calcium Lvl 8.3 8.5 - 10.5 11/02/2019 [facility] CHEM PANEL AGAP 9.0 10.0 - 20.0 11/02/2019 [facility] CHEM PANEL eGFR 114 11/02/2019 Result Comment: The eGFR is calculated using the CKD-EPI formula. In most young, healthy individuals the eGFR will be >90 mL/min/1.73m2. The eGFR declines with age. An eGFR of 60-89 may be normal in some populations, particularly the elderly, for whom the CKD-EPI formula has not been extensively validated. Use of the eGFR is not recommended in the following populations:

Individuals with unstable creatinine concentrations, including patients and those with serious co-morbid conditions.

Patients with extremes in muscle mass or diet.

The data above are obtained from the National Kidney Disease Education Program (NKDEP) which additionally recommends that when the eGFR is used in patients with extremes of body mass index for purposes of drug dosing, the eGFR should be multiplied by the estimated BMI. [facility] ELECTROLYTES AGAP 10.1 10.0 - 20.0 05/25/2019 [facility] ELECTROLYTES B/C Ratio 20 6 - 25 05/25/2019 [facility] ELECTROLYTES Globulin 4.3 2.7 - 4.2 05/25/2019 [facility] ELECTROLYTES A/G Ratio 0.9 0.7 - 1.6 05/25/2019 [facility] ELECTROLYTES Glucose Lvl 94 70 - 99 05/25/2019 [facility] ELECTROLYTES BUN 13 7 - 22 05/25/2019 [facility] ELECTROLYTES Creatinine Lvl 0.6 6 0.50 - 1.40 05/25/2019 [facility] ELECTROLYTES Sodium Lvl 137 135 - 145 05/25/2019 [facility] ELECTROLYTES Potassium Lvl 4.1 3.5 - 5.1 05/25/2019 [facility] ELECTROLYTES Chloride Lvl 107 95 - 109 05/25/2019 [facility] ELECTROLYTES CO2 24 24 - 32 05/25/2019 [facility] ELECTROLYTES Calcium Lvl 9.3 8.5 - 10.5 05/25/2019 [facility] ELECTROLYTES Total Protein 8.2 6.4 - 8.4 05/25/2019 [facility] ELECTROLYTES Albumin Lvl 3.9 3.5 - 5.0 05/25/2019 [facility] ELECTROLYTES ALT 25 0 - 65 05/25/2019 [facility] ELECTROLYTES AST 14 0 - 37 05/25/2019 [facility] ELECTROLYTES Alk Phos 98 39 - 136 05/25/2019 [facility] ELECTROLYTES Bili Total 0.4 0.2 - 1.3 05/25/2019 [facility] ELECTROLYTES eGFR 116 05/25/2019 Result Comment: The eGFR is calculated using the CKD-EPI formula. In most young, healthy individuals the eGFR will be >90 mL/min/1.73m2. The eGFR declines with age. An eGFR of 60-89 may be normal in some populations, particularly the elderly, for whom the CKD-EPI formula has not been extensively validated. Use of the eGFR is not recommended in the following populations:

Individuals with unstable creatinine concentrations, including patients and those with serious co-morbid conditions.

Patients with extremes in muscle mass or diet.

The data above are obtained from the National Kidney Disease Education Program (NKDEP) which additionally recommends that when the eGFR is used in patients with extremes of body mass index for purposes of drug dosing, the eGFR should be multiplied by the estimated BMI. [facility] ENDOCRINOLOGY S Preg Ne gative *NA* (05/25/19 2:19 AM) Negative 05/25/2019 [facility] HEMATOLOGY WBC 14.7 3.7 - 10.4 05/25/2019 [facility] RBC 4.90 4.20 - 5.40 05/25/2019 [facility] Hgb 14.1 12.0 - 16.0 05/25/2019 [facility] Hct 43.2 36.0 - 48.0 05/25/2019 [facility] MCV 88.2 80.0 - 98.0 05/25/2019 [facility] MCH 28.8 27.0 - 31.0 05/25/2019 [facility] MCHC 32.7 32.0 - 36.0 05/25/2019 [facility] RDW 13.2 11.5 - 14.5 05/25/2019 [facility] Platelet 298 133 - 450 05/25/2019 [facility] MPV 8.5 7.4 - 10.4 05/25/2019 [facility] Segs 66.4 45.0 - 75.0 05/25/2019 [facility] Lymphocytes 21.1 20.0 - 40.0 05/25/2019 [facility] Monocytes 7.4 2.0 - 12.0 05/25/2019 [facility] HEMATOLOGY Eosinophils 4.1 0.0 - 4.0 05/25/2019 [facility] HEMATOLOGY Basophils 1.0 0.0 - 1.0 05/25/2019 [facility] Neutrophils # 9.8 1.5 - 8.1 05/25/2019 [facility] Lymphocytes # 3.1 1.0 - 5.5 05/25/2019 [facility] Monocytes # 1.1 0.0 - 0.8 05/25/2019 [facility] HEMATOLOGY Eosinophils # 0.6 0.0 - 0.5 05/25/2019 [facility] HEMATOLOGY Basophils # 0.1 0.0 - 0.2 05/25/2019 [facility] CHEM PANEL Glucose Lvl 105 70 - 99 04/03/2019 [facility] CHEM PANEL BUN 10 7 - 22 04/03/2019 [facility] CHEM PANEL Creatinine Lvl 0.78 0.50 - 1.40 04/03/2019 [facility] CHEM PANEL Sodium Lvl 141 135 - 145 04/03/2019 [facility] CHEM PANEL Potassium Lvl 3.9 3.5 - 5.1 04/03/2019 [facility] CHEM PANEL Chloride Lvl 109 95 - 109 04/03/2019 [facility] CHEM PANEL CO2 25 24 - 32 04/03/2019 [facility] CHEM PANEL Calcium Lvl 8.8 8.5 - 10.5 04/03/2019 [facility] CHEM PANEL eGFR 100 04/03/2019 Result Comment: The eGFR is calculated using the CKD-EPI formula. In most young, healthy individuals the eGFR will be >90 mL/min/1.73m2. The eGFR declines with age. An eGFR of 60-89 may be normal in some populations, particularly the elderly, for whom the CKD-EPI formula has not been extensively validated. Use of the eGFR is not recommended in the following populations:

Individuals with unstable creatinine concentrations, including patients and those with serious co-morbid conditions.

Patients with extremes in muscle mass or diet.

The data above are obtained from the National Kidney Disease Education Program (NKDEP) which additionally recommends that when the eGFR is used in patients with extremes of body mass index for purposes of drug dosing, the eGFR should be multiplied by the estimated BMI. [facility] CHEM PANEL AGAP 10.9 10.0 - 20.0 04/03/2019 [facility] ENDOCRINOLOGY S Preg Ne gative *NA* (04/03/19 5:11 PM) Negative 04/03/2019 [facility] HEMATOLOGY WBC 11.5 3.7 - 10.4 04/03/2019 [facility] HEMATOLOGY RBC 4.85 4.20 - 5.40 04/03/2019 [facility] HEMATOLOGY Hgb 14.2 12.0 - 16.0 04/03/2019 [facility] HEMATOLOGY Hct 43.0 36.0 - 48.0 04/03/2019 [facility] MCV 88.7 80.0 - 98.0 04/03/2019 [facility] MCH 29.2 27.0 - 31.0 04/03/2019 [facility] MCHC 33.0 32.0 - 36.0 04/03/2019 [facility] RDW 13.3 11.5 - 14.5 04/03/2019 [facility] Platelet 239 133 - 450 04/03/2019 [facility] MPV 8.4 7.4 - 10.4 04/03/2019 [facility] Segs 66.0 45.0 - 75.0 04/03/2019 [facility] Lymphocytes 21.2 20.0 - 40.0 04/03/2019 [facility] HEMATOLOGY Monocytes 8.2 2.0 - 12.0 04/03/2019 [facility] HEMATOLOGY Eosinophils 3.6 0.0 - 4.0 04/03/2019 [facility] HEMATOLOGY Basophils 1.0 0.0 - 1.0 04/03/2019 [facility] HEMATOLOGY Neutrophils # 7.6 1.5 - 8.1 04/03/2019 [facility] Lymphocytes # 2.4 1.0 - 5.5 04/03/2019 [facility] Monocytes # 0.9 0.0 - 0.8 04/03/2019 [facility] HEMATOLOGY Eosinophils # 0.4 0.0 - 0.5 04/03/2019 [facility] Basophils # 0.1 0.0 - 0.2 04/03/2019 [facility] HEMATOLOGY WBC 11.2 3.7 - 10.4 03/24/2019 [facility] HEMATOLOGY Hgb 13.7 12.0 - 16.0 03/24/2019 [facility] MPV 8.9 7.4 - 10.4 03/24/2019 [facility] HEMATOLOGY RBC 4.66 4.20 - 5.40 03/24/2019 [facility] HEMATOLOGY Platelet 252 133 - 450 03/24/2019 [facility] MCH 29.5 27.0 - 31.0 03/24/2019 [facility] MCHC 33.8 32.0 - 36.0 03/24/2019 [facility] RDW 13.7 11.5 - 14.5 03/24/2019 [facility] HEMATOLOGY Hct 40.6 36.0 - 48.0 03/24/2019 [facility] HEMATOLOGY MCV 87.1 80.0 - 98.0 03/24/2019 [facility] HEMATOLOGY Eosinophils 3.3 0.0 - 4.0 03/24/2019 [facility] HEMATOLOGY Monocytes 7.6 2.0 - 12.0 03/24/2019 [facility] HEMATOLOGY Basophils # 0.1 0.0 - 0.2 03/24/2019 [facility] HEMATOLOGY Eosinophils # 0.4 0.0 - 0.5 03/24/2019 [facility] HEMATOLOGY Segs 65.7 45.0 - 75.0 03/24/2019 [facility] Lymphocytes 22.6 20.0 - 40.0 03/24/2019 [facility] HEMATOLOGY Neutrophils # 7.4 1.5 - 8.1 03/24/2019 [facility] Monocytes # 0.8 0.0 - 0.8 03/24/2019 [facility] HEMATOLOGY Basophils 0.8 0.0 - 1.0 03/24/2019 [facility] Lymphocytes # 2.5 1.0 - 5.5 03/24/2019 [facility] CHEM PANEL Procalcitonin Lvl <0.05 0.00 - 0.10 03/24/2019 [facility] CHEM PANEL Lactic Acid Lvl 1.7 0.5 - 2.2 03/23/2019 [facility] CHEM PANEL Lactic Acid Lvl 1.7 0.5 - 2.2 03/23/2019 [facility] ELECTROLYTES AGAP 11.5 10.0 - 20.0 03/23/2019 [facility] ELECTROLYTES eGFR 99 03/23/2019 Result Comment: The eGFR is calculated using the CKD-EPI formula. In most young, healthy individuals the eGFR will be >90 mL/min/1.73m2. The eGFR declines with age. An eGFR of 60-89 may be normal in some populations, particularly the elderly, for whom the CKD-EPI formula has not been extensively validated. Use of the eGFR is not recommended in the following populations:

Individuals with unstable creatinine concentrations, including patients and those with serious co-morbid conditions.

Patients with extremes in muscle mass or diet.

The data above are obtained from the National Kidney Disease Education Program (NKDEP) which additionally recommends that when the eGFR is used in patients with extremes of body mass index for purposes of drug dosing, the eGFR should be multiplied by the estimated BMI. [facility] ELECTROLYTES Sodium Lvl 142 135 - 145 03/23/2019 [facility] ELECTROLYTES Calcium Lvl 8.8 8.5 - 10.5 03/23/2019 [facility] ELECTROLYTES CO2 25 24 - 32 03/23/2019 [facility] ELECTROLYTES Chloride Lvl 109 95 - 109 03/23/2019 [facility] ELECTROLYTES Potassium Lvl 3.5 3.5 - 5.1 03/23/2019 [facility] ELECTROLYTES Glucose Lvl 118 70 - 99 03/23/2019 [facility] ELECTROLYTES Creatinine Lvl 0.7 9 0.50 - 1.40 03/23/2019 [facility] ELECTROLYTES BUN 10 7 - 22 03/23/2019 [facility] HEMATOLOGY Monocytes # 0.7 0.0 - 0.8 03/23/2019 [facility] HEMATOLOGY Eosinophils # 0.3 0.0 - 0.5 03/23/2019 [facility] HEMATOLOGY Basophils 1.0 0.0 - 1.0 03/23/2019 [facility] HEMATOLOGY Eosinophils 3.1 0.0 - 4.0 03/23/2019 [facility] HEMATOLOGY Basophils # 0.1 0.0 - 0.2 03/23/2019 [facility] HEMATOLOGY Neutrophils # 8.0 1.5 - 8.1 03/23/2019 [facility] Lymphocytes # 2.1 1.0 - 5.5 03/23/2019 [facility] Lymphocytes 18.5 20.0 - 40.0 03/23/2019 [facility] HEMATOLOGY Monocytes 6.6 2.0 - 12.0 03/23/2019 [facility] HEMATOLOGY Segs 70.8 45.0 - 75.0 03/23/2019 [facility] Platelet 271 133 - 450 03/23/2019 [facility] MPV 8.0 7.4 - 10.4 03/23/2019 [facility] HEMATOLOGY RDW 13.6 11.5 - 14.5 03/23/2019 [facility] MCH 29.3 27.0 - 31.0 03/23/2019 [facility] MCHC 33.3 32.0 - 36.0 03/23/2019 [facility] MCV 88.1 80.0 - 98.0 03/23/2019 [facility] HEMATOLOGY Hgb 14.2 12.0 - 16.0 03/23/2019 [facility] HEMATOLOGY Hct 42.6 36.0 - 48.0 03/23/2019 [facility] HEMATOLOGY RBC 4.84 4.20 - 5.40 03/23/2019 [facility] HEMATOLOGY WBC 11.2 3.7 - 10.4 03/23/2019 [facility] CHEM PANEL Phosphorus 5.1 2.5 - 4.5 03/07/2019 [facility] CHEM PANEL Magnesium Lvl 1.7 1.8 - 2.4 03/07/2019 [facility] ELECTROLYTES AGAP 10.8 10.0 - 20.0 03/07/2019 [facility] ELECTROLYTES eGFR 101 03/07/2019 Result Comment: The eGFR is calculated using the CKD-EPI formula. In most young, healthy individuals the eGFR will be >90 mL/min/1.73m2. The eGFR declines with age. An eGFR of 60-89 may be normal in some populations, particularly the elderly, for whom the CKD-EPI formula has not been extensively validated. Use of the eGFR is not recommended in the following populations:

Individuals with unstable creatinine concentrations, including patients and those with serious co-morbid conditions.

Patients with extremes in muscle mass or diet.

The data above are obtained from the National Kidney Disease Education Program (NKDEP) which additionally recommends that when the eGFR is used in patients with extremes of body mass index for purposes of drug dosing, the eGFR should be multiplied by the estimated BMI. [facility] ELECTROLYTES Calcium Lvl 8.8 8.5 - 10.5 03/07/2019 [facility] ELECTROLYTES CO2 29 24 - 32 03/07/2019 [facility] ELECTROLYTES Sodium Lvl 141 135 - 145 03/07/2019 [facility] ELECTROLYTES Potassium Lvl 3.8 3.5 - 5.1 03/07/2019 [facility] ELECTROLYTES BUN 11 7 - 22 03/07/2019 [facility] ELECTROLYTES Creatinine Lvl 0.7 8 0.50 - 1.40 03/07/2019 [facility] ELECTROLYTES Chloride Lvl 105 95 - 109 03/07/2019 [facility] ELECTROLYTES Glucose Lvl 108 70 - 99 03/07/2019 [facility] HEMATOLOGY Platelet 256 133 - 450 03/07/2019 [facility] HEMATOLOGY MPV 8.9 7.4 - 10.4 03/07/2019 [facility] HEMATOLOGY RDW 13.6 11.5 - 14.5 03/07/2019 [facility] HEMATOLOGY MCHC 33.8 32.0 - 36.0 03/07/2019 [facility] HEMATOLOGY MCV 86.3 80.0 - 98.0 03/07/2019 [facility] HEMATOLOGY MCH 29.2 27.0 - 31.0 03/07/2019 [facility] HEMATOLOGY Hgb 13.5 12.0 - 16.0 03/07/2019 [facility] HEMATOLOGY RBC 4.63 4.20 - 5.40 03/07/2019 [facility] HEMATOLOGY Hct 39.9 36.0 - 48.0 03/07/2019 [facility] HEMATOLOGY WBC 10.0 3.7 - 10.4 03/07/2019 [facility] HEMATOLOGY Basophils # 0.1 0.0 - 0.2 03/07/2019 [facility] HEMATOLOGY Eosinophils # 0.4 0.0 - 0.5 03/07/2019 [facility] HEMATOLOGY Eosinophils 4.4 0.0 - 4.0 03/07/2019 [facility] HEMATOLOGY Lymphocytes # 2.7 1.0 - 5.5 03/07/2019 [facility] HEMATOLOGY Basophils 0.7 0.0 - 1.0 03/07/2019 [facility] HEMATOLOGY Monocytes # 0.7 0.0 - 0.8 03/07/2019 [facility] HEMATOLOGY Neutrophils # 6.1 1.5 - 8.1 03/07/2019 [facility] HEMATOLOGY Monocytes 6.7 2.0 - 12.0 03/07/2019 [facility] HEMATOLOGY Lymphocytes 26.7 20.0 - 40.0 03/07/2019 [facility] HEMATOLOGY Segs 61.5 45.0 - 75.0 03/07/2019 [facility] CHEM PANEL Phosphorus 4.2 2.5 - 4.5 03/06/2019 [facility] CHEM PANEL Magnesium Lvl 1.8 1.8 - 2.4 03/06/2019 [facility] ELECTROLYTES Potassium Lvl 4.0 3.5 - 5.1 03/06/2019 [facility] ELECTROLYTES Chloride Lvl 107 95 - 109 03/06/2019 [facility] ELECTROLYTES CO2 26 24 - 32 03/06/2019 [facility] ELECTROLYTES Sodium Lvl 140 135 - 145 03/06/2019 [facility] ELECTROLYTES Creatinine Lvl 0.7 1 0.50 - 1.40 03/06/2019 [facility] ELECTROLYTES Calcium Lvl 8.6 8.5 - 10.5 03/06/2019 [facility] ELECTROLYTES eGFR 113 03/06/2019 Result Comment: The eGFR is calculated using the CKD-EPI formula. In most young, healthy individuals the eGFR will be >90 mL/min/1.73m2. The eGFR declines with age. An eGFR of 60-89 may be normal in some populations, particularly the elderly, for whom the CKD-EPI formula has not been extensively validated. Use of the eGFR is not recommended in the following populations:

Individuals with unstable creatinine concentrations, including patients and those with serious co-morbid conditions.

Patients with extremes in muscle mass or diet.

The data above are obtained from the National Kidney Disease Education Program (NKDEP) which additionally recommends that when the eGFR is used in patients with extremes of body mass index for purposes of drug dosing, the eGFR should be multiplied by the estimated BMI. [facility] ELECTROLYTES Glucose Lvl 101 70 - 99 03/06/2019 [facility] ELECTROLYTES BUN 11 7 - 22 03/06/2019 [facility] ELECTROLYTES AGAP 11.0 10.0 - 20.0 03/06/2019 [facility] HEMATOLOGY Eosinophils 4.7 0.0 - 4.0 03/06/2019 [facility] HEMATOLOGY Lymphocytes 27.0 20.0 - 40.0 03/06/2019 [facility] HEMATOLOGY Monocytes 7.3 2.0 - 12.0 03/06/2019 [facility] HEMATOLOGY Segs 59.8 45.0 - 75.0 03/06/2019 [facility] HEMATOLOGY Eosinophils # 0.4 0.0 - 0.5 03/06/2019 [facility] HEMATOLOGY Lymphocytes # 2.3 1.0 - 5.5 03/06/2019 [facility] HEMATOLOGY Monocytes # 0.6 0.0 - 0.8 03/06/2019 [facility] HEMATOLOGY Basophils 1.2 0.0 - 1.0 03/06/2019 [facility] HEMATOLOGY Neutrophils # 5.1 1.5 - 8.1 03/06/2019 [facility] HEMATOLOGY Basophils # 0.1 0.0 - 0.2 03/06/2019 [facility] HEMATOLOGY Hct 37.4 36.0 - 48.0 03/06/2019 [facility] HEMATOLOGY WBC 8.5 3.7 - 10.4 03/06/2019 [facility] HEMATOLOGY RBC 4.32 4.20 - 5.40 03/06/2019 [facility] HEMATOLOGY Hgb 12.7 12.0 - 16.0 03/06/2019 [facility] MCV 86.6 80.0 - 98.0 03/06/2019 [facility] HEMATOLOGY MPV 8.7 7.4 - 10.4 03/06/2019 [facility] Platelet 247 133 - 450 03/06/2019 [facility] HEMATOLOGY MCH 29.3 27.0 - 31.0 03/06/2019 [facility] HEMATOLOGY MCHC 33.9 32.0 - 36.0 03/06/2019 [facility] HEMATOLOGY RDW 13.7 11.5 - 14.5 03/06/2019 [facility] TOXICOLOGY Vanco Tr 17.8 03/05/2019 [facility] TOXICOLOGY Vanco Tr TND 1300 03/05/2019 [facility] CHEM PANEL Phosphorus 4.6 2.5 - 4.5 03/04/2019 [facility] CHEM PANEL Magnesium Lvl 1.7 1.8 - 2.4 03/04/2019 [facility] ELECTROLYTES AGAP 8.6 10.0 - 20.0 03/04/2019 [facility] ELECTROLYTES eGFR 119 03/04/2019 Result Comment: The eGFR is calculated using the CKD-EPI formula. In most young, healthy individuals the eGFR will be >90 mL/min/1.73m2. The eGFR declines with age. An eGFR of 60-89 may be normal in some populations, particularly the elderly, for whom the CKD-EPI formula has not been extensively validated. Use of the eGFR is not recommended in the following populations:

Individuals with unstable creatinine concentrations, including patients and those with serious co-morbid conditions.

Patients with extremes in muscle mass or diet.

The data above are obtained from the National Kidney Disease Education Program (NKDEP) which additionally recommends that when the eGFR is used in patients with extremes of body mass index for purposes of drug dosing, the eGFR should be multiplied by the estimated BMI. [facility] ELECTROLYTES Creatinine Lvl 0.6 2 0.50 - 1.40 03/04/2019 [facility] ELECTROLYTES Potassium Lvl 3.6 3.5 - 5.1 03/04/2019 [facility] ELECTROLYTES Sodium Lvl 143 135 - 145 03/04/2019 [facility] ELECTROLYTES Chloride Lvl 110 95 - 109 03/04/2019 [facility] ELECTROLYTES CO2 28 24 - 32 03/04/2019 [facility] ELECTROLYTES Calcium Lvl 8.2 8.5 - 10.5 03/04/2019 [facility] ELECTROLYTES BUN 7 7 - 22 03/04/2019 [facility] ELECTROLYTES Glucose Lvl 103 70 - 99 03/04/2019 [facility] HEMATOLOGY Hgb 12.5 12.0 - 16.0 03/04/2019 [facility] HEMATOLOGY MCH 29.7 27.0 - 31.0 03/04/2019 [facility] HEMATOLOGY MCV 86.9 80.0 - 98.0 03/04/2019 [facility] HEMATOLOGY Hct 36.5 36.0 - 48.0 03/04/2019 [facility] HEMATOLOGY Platelet 195 133 - 450 03/04/2019 [facility] HEMATOLOGY RDW 13.9 11.5 - 14.5 03/04/2019 [facility] HEMATOLOGY MPV 8.9 7.4 - 10.4 03/04/2019 [facility] HEMATOLOGY WBC 9.0 3.7 - 10.4 03/04/2019 [facility] HEMATOLOGY MCHC 34.2 32.0 - 36.0 03/04/2019 [facility] HEMATOLOGY RBC 4.20 4.20 - 5.40 03/04/2019 [facility] HEMATOLOGY Neutrophils # 5.2 1.5 - 8.1 03/04/2019 [facility] HEMATOLOGY Lymphocytes # 2.6 1.0 - 5.5 03/04/2019 [facility] HEMATOLOGY Monocytes # 0.8 0.0 - 0.8 03/04/2019 [facility] HEMATOLOGY Eosinophils # 0.4 0.0 - 0.5 03/04/2019 [facility] HEMATOLOGY Segs 57.6 45.0 - 75.0 03/04/2019 [facility] HEMATOLOGY Lymphocytes 28.4 20.0 - 40.0 03/04/2019 [facility] HEMATOLOGY Monocytes 8.8 2.0 - 12.0 03/04/2019 [facility] HEMATOLOGY Eosinophils 4.1 0.0 - 4.0 03/04/2019 [facility] HEMATOLOGY Basophils 1.1 0.0 - 1.0 03/04/2019 [facility] HEMATOLOGY Basophils # 0.1 0.0 - 0.2 03/04/2019 [facility] CIPROFLOXACIN:SUSC:PT:ISOLATE:ORDQN:MONISHA Gram Stain Report Few WBC's Rare Gram Positive Cocci 03/02/2019 [facility] CIPROFLOXACIN:SUSC:PT:ISOLATE:ORDQN:MONISHA Culture: Wound/Abscess w/Gram Stain Many Staphylococcus aureus 03/02/2019 [facility] CIPROFLOXACIN:SUSC:PT:ISOLATE:ORDQN:MONISHA Staphylococcus aureus Staphylococcus aureus 03/02/2019 [facility] TOXICOLOGY Vanco Tr TND 1300 03/02/2019 [facility] TOXICOLOGY Vanco Tr 14.7 03/02/2019 [facility] URINE AND STOOL UA Urobilinogen <=1.0 mg/dL 0.1 - 1.0 03/01/2019 [facility] URINE AND STOOL UA Mucus Few /LPF None Seen /LPF 03/01/2019 [facility] URINE AND STOOL UA Leuk Est Negative (03/01/19 4:13 PM) Negative 03/01/2019 [facility] URINE AND STOOL UA Sq Epi Few /LPF Few /LPF 03/01/2019 [facility] URINE AND STOOL UA Nitrite Negative (03/01/19 4:13 PM) Negative 03/01/2019 [facility] URINE AND STOOL UA RBC 87 0 - 2 03/01/2019 [facility] URINE AND STOOL UA WBC 3 0 - 5 03/01/2019 [facility] URINE AND STOOL UA Bacteria Occasional /HPF None Seen /HPF 03/01/2019 [facility] URINE AND STOOL UA pH 7.0 5.0 - 8.0 03/01/2019 [facility] URINE AND STOOL UA Ketones Negative mg/dL Negative mg/dL 03/01/2019 [facility] URINE AND STOOL UA Protein Negative mg/dL Negative mg/dL 03/01/2019 [facility] URINE AND STOOL UA Glucose Negative mg/dL Negative mg/dL 03/01/2019 [facility] URINE AND STOOL UA Blood Large *ABN* (03/01/19 4:13 PM) Negative 03/01/2019 [facility] URINE AND STOOL UA Bili Negative *NA* (03/01/19 4:13 PM) Negative 03/01/2019 [facility] URINE AND STOOL UA Spec Grav 1.010 <=1.030 03/01/2019 [facility] URINE AND STOOL UA Turbidity Slight *ABN* (03/01/19 4:13 PM) Clear 03/01/2019 [facility] URINE AND STOOL UA Color Yellow *NA* (03/01/19 4:13 PM) Yellow 03/01/2019 [facility] CHEM PANEL Albumin Lvl 3.4 3.5 - 5.0 03/01/2019 [facility] CHEM PANEL Total Protein 7.2 6.4 - 8.4 03/01/2019 [facility] CHEM PANEL Alk Phos 86 39 - 136 03/01/2019 [facility] CHEM PANEL Bili Total 0.5 0.2 - 1.3 03/01/2019 [facility] CHEM PANEL AST 12 0 - 37 03/01/2019 [facility] CHEM PANEL ALT 20 0 - 65 03/01/2019 [facility] CHEM PANEL A/G Ratio 0.9 0.7 - 1.6 03/01/2019 [facility] CHEM PANEL B/C Ratio 16 6 - 25 03/01/2019 [facility] CHEM PANEL Globulin 3.8 2.7 - 4.2 03/01/2019 [facility] HEMATOLOGY INR 1.14 0.85 - 1.17 03/01/2019 [facility] HEMATOLOGY PTT 38.3 22.9 - 35.8 03/01/2019 [facility] HEMATOLOGY PT 14.4 12.0 - 14.7 03/01/2019 [facility] CHEM PANEL Lactic Acid Lvl 1.4 0.5 - 2.2 03/01/2019 [facility] ENDOCRINOLOGY hCG Tot <1 03/01/2019 [facility] TOXICOLOGY Vanco Tr 10.8 01/31/2019 [facility] TOXICOLOGY Vanco Tr TND 2000 01/31/2019 [facility] BACTERIAL - SEROLOGY MRSA by PCR Negative (01/30/19 11:23 AM) 01/30/2019 [facility] TOXICOLOGY Vanco Tr 18.9 01/29/2019 [facility] TOXICOLOGY Vanco Tr TND 1330 01/29/2019 [facility] HEMATOLOGY MCH 28.5 27.0 - 31.0 01/29/2019 [facility] HEMATOLOGY MCV 87.8 80.0 - 98.0 01/29/2019 [facility] HEMATOLOGY Hct 38.5 36.0 - 48.0 01/29/2019 [facility] HEMATOLOGY Hgb 12.5 12.0 - 16.0 01/29/2019 [facility] HEMATOLOGY RBC 4.38 4.20 - 5.40 01/29/2019 [facility] HEMATOLOGY Platelet 244 133 - 450 01/29/2019 [facility] HEMATOLOGY MCHC 32.5 32.0 - 36.0 01/29/2019 [facility] HEMATOLOGY MPV 8.5 7.4 - 10.4 01/29/2019 [facility] HEMATOLOGY RDW 13.5 11.5 - 14.5 01/29/2019 [facility] HEMATOLOGY WBC 8.1 3.7 - 10.4 01/29/2019 [facility] TOXICOLOGY Vanco Tr 18.3 01/28/2019 [facility] TOXICOLOGY Vanco Tr TND 1230 01/28/2019 [facility] CEFEPIME:SUSC:PT:ISOLATE:ORDQN:MONISHA G jade Stain Report Rare Gram Negative Rods No WBC's Seen 01/28/2019 [facility] CEFEPIME:SUSC:PT:ISOLATE:ORDQN:MONISHA Culture: Wound/Abscess w/Gram Stain Moderate Proteus mirabilis Moderate Klebsiella pneumoniae ssp pneumoniae Few Staphylococcus aureus 01/28/2019 [facility] CEFEPIME:SUSC:PT:ISOLATE:ORDQN:MONISHA Staphylococcus aureus Staphylococcus aureus 01/28/2019 [facility] CEFEPIME:SUSC:PT:ISOLATE:ORDQN:MONISHA Klebsiella pneumoniae ssp pneumoniae Klebsiella pneumoniae ssp pneumoniae 01/28/2019 [facility] CEFEPIME:SUSC:PT:ISOLATE:ORDQN:MONISHA P roteus mirabilis Proteus mirabilis 01/28/2019 [facility] URINE AND STOOL UA Leuk Est Negative (01/27/19 6:31 AM) Negative 01/27/2019 [facility] URINE AND STOOL UA WBC 2 0 - 5 01/27/2019 [facility] URINE AND STOOL UA RBC 5 0 - 2 01/27/2019 [facility] URINE AND STOOL UA Sq Epi Moderate /LPF Few /LPF 01/27/2019 [facility] URINE AND STOOL UA Protein Negative mg/dL Negative mg/dL 01/27/2019 [facility] URINE AND STOOL UA pH 6.0 5.0 - 8.0 01/27/2019 [facility] URINE AND STOOL UA Color Yellow *NA* (01/27/19 6:31 AM) Yellow 01/27/2019 [facility] URINE AND STOOL UA Spec Grav 1.028 <=1.030 01/27/2019 [facility] URINE AND STOOL UA Turbidity Slight *ABN* (01/27/19 6:31 AM) Clear 01/27/2019 [facility] URINE AND STOOL UA Mucus Few /LPF None Seen /LPF 01/27/2019 [facility] URINE AND STOOL UA Bacteria Occasional /HPF None Seen /HPF 01/27/2019 [facility] URINE AND STOOL UA Glucose Negative mg/dL Negative mg/dL 01/27/2019 [facility] URINE AND STOOL UA Blood Negative (01/27/19 6:31 AM) Negative 01/27/2019 [facility] URINE AND STOOL UA Bili Negative *NA* (01/27/19 6:31 AM) Negative 01/27/2019 [facility] URINE AND STOOL UA Nitrite Negative (01/27/19 6:31 AM) Negative 01/27/2019 [facility] URINE AND STOOL UA Ketones Negative mg/dL Negative mg/dL 01/27/2019 [facility] URINE AND STOOL UA Urobilinogen <=1.0 mg/dL 0.1 - 1.0 01/27/2019 [facility] URINE CHEM U Preg Negat theron (01/27/19 6:31 AM) Negative 01/27/2019 [facility] CHEM PANEL Lactic Acid Lvl 1.5 0.5 - 2.2 01/27/2019 [facility] CHEM PANEL B/C Ratio 19 6 - 25 01/27/2019 [facility] CHEM PANEL Globulin 3.9 2.7 - 4.2 01/27/2019 [facility] CHEM PANEL A/G Ratio 0.9 0.7 - 1.6 01/27/2019 [facility] CHEM PANEL AGAP 13.9 10.0 - 20.0 01/27/2019 [facility] CHEM PANEL eGFR 106 01/27/2019 Result Comment: The eGFR is calculated using the CKD-EPI formula. In most young, healthy individuals the eGFR will be >90 mL/min/1.73m2. The eGFR declines with age. An eGFR of 60-89 may be normal in some populations, particularly the elderly, for whom the CKD-EPI formula has not been extensively validated. Use of the eGFR is not recommended in the following populations:

Individuals with unstable creatinine concentrations, including patients and those with serious co-morbid conditions.

Patients with extremes in muscle mass or diet.

The data above are obtained from the National Kidney Disease Education Program (NKDEP) which additionally recommends that when the eGFR is used in patients with extremes of body mass index for purposes of drug dosing, the eGFR should be multiplied by the estimated BMI. [facility] CHEM PANEL AST 18 0 - 37 01/27/2019 [facility] CHEM PANEL Alk Phos 92 39 - 136 01/27/2019 [facility] CHEM PANEL Potassium Lvl 3.9 3.5 - 5.1 01/27/2019 [facility] CHEM PANEL Bili Total 0.3 0.2 - 1.3 01/27/2019 [facility] CHEM PANEL Albumin Lvl 3.6 3.5 - 5.0 01/27/2019 [facility] CHEM PANEL ALT 24 0 - 65 01/27/2019 [facility] CHEM PANEL Total Protein 7.5 6.4 - 8.4 01/27/2019 [facility] CHEM PANEL Chloride Lvl 108 95 - 109 01/27/2019 [facility] CHEM PANEL CO2 24 24 - 32 01/27/2019 [facility] CHEM PANEL Sodium Lvl 142 135 - 145 01/27/2019 [facility] CHEM PANEL Calcium Lvl 8.5 8.5 - 10.5 01/27/2019 [facility] CHEM PANEL BUN 14 7 - 22 01/27/2019 [facility] CHEM PANEL Creatinine Lvl 0.75 0.50 - 1.40 01/27/2019 [facility] CHEM PANEL Glucose Lvl 91 70 - 99 01/27/2019 [facility] HEMATOLOGY Eosinophils 6.5 0.0 - 4.0 01/27/2019 [facility] HEMATOLOGY Monocytes 8.1 2.0 - 12.0 01/27/2019 [facility] HEMATOLOGY Basophils 0.9 0.0 - 1.0 01/27/2019 [facility] HEMATOLOGY Lymphocytes # 2.9 1.0 - 5.5 01/27/2019 [facility] HEMATOLOGY Neutrophils # 7.4 1.5 - 8.1 01/27/2019 [facility] HEMATOLOGY Monocytes # 1.0 0.0 - 0.8 01/27/2019 [facility] HEMATOLOGY Eosinophils # 0.8 0.0 - 0.5 01/27/2019 [facility] HEMATOLOGY Basophils # 0.1 0.0 - 0.2 01/27/2019 [facility] HEMATOLOGY Lymphocytes 23.6 20.0 - 40.0 01/27/2019 [facility] HEMATOLOGY Segs 60.9 45.0 - 75.0 01/27/2019 [facility] HEMATOLOGY WBC 12.2 3.7 - 10.4 01/27/2019 [facility] MCHC 32.4 32.0 - 36.0 01/27/2019 [facility] RDW 13.7 11.5 - 14.5 01/27/2019 [facility] MCH 28.5 27.0 - 31.0 01/27/2019 [facility] MCV 88.2 80.0 - 98.0 01/27/2019 [facility] Hct 41.4 36.0 - 48.0 01/27/2019 [facility] RBC 4.69 4.20 - 5.40 01/27/2019 [facility] Hgb 13.4 12.0 - 16.0 01/27/2019 [facility] MPV 8.8 7.4 - 10.4 01/27/2019 [facility] Platelet 253 133 - 450 01/27/2019 [facility] CHEM PANEL Lactic Acid Lvl 1.0 0.5 - 2.2 12/13/2018 [facility] ELECTROLYTES Sodium Lvl 140 135 - 145 12/13/2018 [facility] ELECTROLYTES Creatinine Lvl 1.0 4 0.50 - 1.40 12/13/2018 [facility] ELECTROLYTES eGFR 71 12/13/2018 Result Comment: The eGFR is calculated using the CKD-EPI formula. In most young, healthy individuals the eGFR will be >90 mL/min/1.73m2. The eGFR declines with age. An eGFR of 60-89 may be normal in some populations, particularly the elderly, for whom the CKD-EPI formula has not been extensively validated. Use of the eGFR is not recommended in the following populations:

Individuals with unstable creatinine concentrations, including patients and those with serious co-morbid conditions.

Patients with extremes in muscle mass or diet.

The data above are obtained from the National Kidney Disease Education Program (NKDEP) which additionally recommends that when the eGFR is used in patients with extremes of body mass index for purposes of drug dosing, the eGFR should be multiplied by the estimated BMI. [facility] ELECTROLYTES Glucose Lvl 88 70 - 99 12/13/2018 [facility] ELECTROLYTES Potassium Lvl 3.4 3.5 - 5.1 12/13/2018 [facility] ELECTROLYTES BUN 15 7 - 22 12/13/2018 [facility] ELECTROLYTES Alk Phos 79 39 - 136 12/13/2018 [facility] ELECTROLYTES Albumin Lvl 3.2 3.5 - 5.0 12/13/2018 [facility] ELECTROLYTES AST 15 0 - 37 12/13/2018 [facility] ELECTROLYTES Bili Total 0.2 0.2 - 1.3 12/13/2018 [facility] ELECTROLYTES ALT 24 0 - 65 12/13/2018 [facility] ELECTROLYTES Chloride Lvl 105 95 - 109 12/13/2018 [facility] ELECTROLYTES CO2 29 24 - 32 12/13/2018 [facility] ELECTROLYTES Calcium Lvl 8.8 8.5 - 10.5 12/13/2018 [facility] ELECTROLYTES Total Protein 7.7 6.4 - 8.4 12/13/2018 [facility] ELECTROLYTES B/C Ratio 14 6 - 25 12/13/2018 [facility] ELECTROLYTES AGAP 9.4 10.0 - 20.0 12/13/2018 [facility] ELECTROLYTES A/G Ratio 0.7 0.7 - 1.6 12/13/2018 [facility] ELECTROLYTES Globulin 4.5 2.7 - 4.2 12/13/2018 [facility] HEMATOLOGY Basophils # 0.1 0.0 - 0.2 12/13/2018 [facility] HEMATOLOGY Lymphocytes # 2.6 1.0 - 5.5 12/13/2018 [facility] HEMATOLOGY Monocytes # 0.8 0.0 - 0.8 12/13/2018 [facility] HEMATOLOGY Eosinophils # 0.5 0.0 - 0.5 12/13/2018 [facility] HEMATOLOGY Eosinophils 4.0 0.0 - 4.0 12/13/2018 [facility] HEMATOLOGY Monocytes 7.1 2.0 - 12.0 12/13/2018 [facility] HEMATOLOGY Lymphocytes 22.7 20.0 - 40.0 12/13/2018 [facility] HEMATOLOGY Basophils 1.2 0.0 - 1.0 12/13/2018 [facility] HEMATOLOGY Neutrophils # 7.3 1.5 - 8.1 12/13/2018 [facility] HEMATOLOGY Segs 65.0 45.0 - 75.0 12/13/2018 [facility] HEMATOLOGY RDW 13.3 11.5 - 14.5 12/13/2018 [facility] HEMATOLOGY MCHC 33.7 32.0 - 36.0 12/13/2018 [facility] HEMATOLOGY Platelet 314 133 - 450 12/13/2018 [facility] HEMATOLOGY MPV 7.7 7.4 - 10.4 12/13/2018 [facility] HEMATOLOGY RBC 4.45 4.20 - 5.40 12/13/2018 [facility] HEMATOLOGY MCH 28.9 27.0 - 31.0 12/13/2018 [facility] HEMATOLOGY MCV 85.7 80.0 - 98.0 12/13/2018 [facility] HEMATOLOGY WBC 11.3 3.7 - 10.4 12/13/2018 [facility] HEMATOLOGY Hgb 12.9 12.0 - 16.0 12/13/2018 [facility] HEMATOLOGY Hct 38.1 36.0 - 48.0 12/13/2018 [facility] TOXICOLOGY Vanco Tr TND 2100 12/09/2018 [facility] TOXICOLOGY Vanco Tr 16.7 12/09/2018 [facility] CHEM PANEL eGFR 93 12/08/2018 Result Comment: The eGFR is calculated using the CKD-EPI formula. In most young, healthy individuals the eGFR will be >90 mL/min/1.73m2. The eGFR declines with age. An eGFR of 60-89 may be normal in some populations, particularly the elderly, for whom the CKD-EPI formula has not been extensively validated. Use of the eGFR is not recommended in the following populations:

Individuals with unstable creatinine concentrations, including patients and those with serious co-morbid conditions.

Patients with extremes in muscle mass or diet.

The data above are obtained from the National Kidney Disease Education Program (NKDEP) which additionally recommends that when the eGFR is used in patients with extremes of body mass index for purposes of drug dosing, the eGFR should be multiplied by the estimated BMI. [place] CHEM PANEL Sodium Lvl 143 135 - 145 12/08/2018 [facility] CHEM PANEL Creatinine Lvl 0.83 0.50 - 1.40 12/08/2018 [facility] BUN 6 7 - 22 12/08/2018 [place] CHEM PANEL Glucose Lvl 98 70 - 99 12/08/2018 [place] CHEM PANEL CO2 29 24 - 32 12/08/2018 [place] CHEM PANEL Chloride Lvl 106 95 - 109 12/08/2018 [place] CHEM PANEL Potassium Lvl 3.8 3.5 - 5.1 12/08/2018 [facility] Calcium Lvl 8.8 8.5 - 10.5 12/08/2018 [facility] CHEM PANEL AGAP 11.8 10.0 - 20.0 12/08/2018 [facility] HEMATOLOGY Monocytes 8.5 2.0 - 12.0 12/08/2018 [facility] HEMATOLOGY Segs 61.1 45.0 - 75.0 12/08/2018 [facility] HEMATOLOGY Eosinophils 5.9 0.0 - 4.0 12/08/2018 [facility] HEMATOLOGY Lymphocytes 23.5 20.0 - 40.0 12/08/2018 [facility] HEMATOLOGY Basophils # 0.1 0.0 - 0.2 12/08/2018 [facility] HEMATOLOGY Eosinophils # 0.6 0.0 - 0.5 12/08/2018 [facility] HEMATOLOGY Monocytes # 0.8 0.0 - 0.8 12/08/2018 [facility] HEMATOLOGY Lymphocytes # 2.3 1.0 - 5.5 12/08/2018 [facility] HEMATOLOGY Basophils 1.0 0.0 - 1.0 12/08/2018 [facility] HEMATOLOGY Neutrophils # 6.0 1.5 - 8.1 12/08/2018 [facility] HEMATOLOGY MPV 7.8 7.4 - 10.4 12/08/2018 [facility] HEMATOLOGY Platelet 278 133 - 450 12/08/2018 [facility] HEMATOLOGY RDW 13.1 11.5 - 14.5 12/08/2018 [facility] HEMATOLOGY MCHC 33.6 32.0 - 36.0 12/08/2018 [facility] HEMATOLOGY Hct 35.3 36.0 - 48.0 12/08/2018 [facility] HEMATOLOGY MCV 86.2 80.0 - 98.0 12/08/2018 [facility] HEMATOLOGY WBC 9.7 3.7 - 10.4 12/08/2018 [facility] HEMATOLOGY MCH 28.9 27.0 - 31.0 12/08/2018 [facility] HEMATOLOGY RBC 4.10 4.20 - 5.40 12/08/2018 [facility] HEMATOLOGY Hgb 11.9 12.0 - 16.0 12/08/2018 [facility] TOXICOLOGY Vanco Tr TND mar 12/07/2018 [facility] TOXICOLOGY Vanco Tr 15.3 12/07/2018 [facility] ELECTROLYTES AGAP 9.8 10.0 - 20.0 12/07/2018 [facility] ELECTROLYTES eGFR 116 12/07/2018 Result Comment: The eGFR is calculated using the CKD-EPI formula. In most young, healthy individuals the eGFR will be >90 mL/min/1.73m2. The eGFR declines with age. An eGFR of 60-89 may be normal in some populations, particularly the elderly, for whom the CKD-EPI formula has not been extensively validated. Use of the eGFR is not recommended in the following populations:

Individuals with unstable creatinine concentrations, including patients and those with serious co-morbid conditions.

Patients with extremes in muscle mass or diet.

The data above are obtained from the National Kidney Disease Education Program (NKDEP) which additionally recommends that when the eGFR is used in patients with extremes of body mass index for purposes of drug dosing, the eGFR should be multiplied by the estimated BMI. [facility] ELECTROLYTES Chloride Lvl 106 95 - 109 12/07/2018 [facility] ELECTROLYTES Potassium Lvl 3.8 3.5 - 5.1 12/07/2018 [facility] ELECTROLYTES Calcium Lvl 8.1 8.5 - 10.5 12/07/2018 [facility] ELECTROLYTES CO2 31 24 - 32 12/07/2018 [facility] ELECTROLYTES Sodium Lvl 143 135 - 145 12/07/2018 [facility] ELECTROLYTES Creatinine Lvl 0.6 9 0.50 - 1.40 12/07/2018 [facility] ELECTROLYTES BUN 6 7 - 22 12/07/2018 [facility] ELECTROLYTES Glucose Lvl 116 70 - 99 12/07/2018 [facility] HEMATOLOGY MCV 87.1 80.0 - 98.0 12/07/2018 [facility] HEMATOLOGY Hct 34.8 36.0 - 48.0 12/07/2018 [facility] HEMATOLOGY MCH 28.8 27.0 - 31.0 12/07/2018 [facility] HEMATOLOGY Hgb 11.5 12.0 - 16.0 12/07/2018 [facility] HEMATOLOGY MPV 7.7 7.4 - 10.4 12/07/2018 [facility] HEMATOLOGY RDW 13.3 11.5 - 14.5 12/07/2018 [facility] MCHC 33.1 32.0 - 36.0 12/07/2018 [facility] Platelet 274 133 - 450 12/07/2018 [facility] RBC 4.00 4.20 - 5.40 12/07/2018 [facility] HEMATOLOGY WBC 9.8 3.7 - 10.4 12/07/2018 [facility] HEMATOLOGY Monocytes # 0.8 0.0 - 0.8 12/07/2018 [facility] HEMATOLOGY Eosinophils # 0.6 0.0 - 0.5 12/07/2018 [facility] HEMATOLOGY Basophils # 0.1 0.0 - 0.2 12/07/2018 [facility] HEMATOLOGY Segs 61.0 45.0 - 75.0 12/07/2018 [facility] Monocytes 7.8 2.0 - 12.0 12/07/2018 [facility] HEMATOLOGY Basophils 1.1 0.0 - 1.0 12/07/2018 [facility] Eosinophils 6.5 0.0 - 4.0 12/07/2018 [facility] Lymphocytes 23.6 20.0 - 40.0 12/07/2018 [facility] Lymphocytes # 2.3 1.0 - 5.5 12/07/2018 [facility] Neutrophils # 6.0 1.5 - 8.1 12/07/2018 [facility] AMPICILLIN+SULBACTAM:SUSC:PT:ISOLATE:ORDQN:MONISHA Gram Stain Report Rare WBC's No Organisms Seen 12/06/2018 [facility] AMPICILLIN+SULBACTAM:SUSC:PT:ISOLATE:ORDQN:MONISHA Culture: Wound/Abscess w/Gram Stain Many Staphylococcus aureus . Sensitivity Pending 12/06/2018 [facility] AMPICILLIN+SULBACTAM:SUSC:PT:ISOLATE:ORDQN:MONISHA Staphylococcus aureus Staphylococcus aureus 12/06/2018 [facility] Culture: Anaerobic No Anaerobes Is olated After 4 Days 12/06/2018 [facility] TOXICOLOGY Vanco Tr TND 0930 12/06/2018 [facility] TOXICOLOGY Vanco Tr 14.8 12/06/2018 [facility] CHEM PANEL eGFR 129 12/06/2018 Result Comment: The eGFR is calculated using the CKD-EPI formula. In most young, healthy individuals the eGFR will be >90 mL/min/1.73m2. The eGFR declines with age. An eGFR of 60-89 may be normal in some populations, particularly the elderly, for whom the CKD-EPI formula has not been extensively validated. Use of the eGFR is not recommended in the following populations:

Individuals with unstable creatinine concentrations, including patients and those with serious co-morbid conditions.

Patients with extremes in muscle mass or diet.

The data above are obtained from the National Kidney Disease Education Program (NKDEP) which additionally recommends that when the eGFR is used in patients with extremes of body mass index for purposes of drug dosing, the eGFR should be multiplied by the estimated BMI. [facility] CHEM PANEL BUN 8 7 - 22 12/06/2018 [facility] CHEM PANEL Creatinine Lvl 0.49 0.50 - 1.40 12/06/2018 [facility] CHEM PANEL Calcium Lvl 8.2 8.5 - 10.5 12/06/2018 [facility] CHEM PANEL Potassium Lvl 3.8 3.5 - 5.1 12/06/2018 [facility] CHEM PANEL Sodium Lvl 139 135 - 145 12/06/2018 [facility] CHEM PANEL Chloride Lvl 106 95 - 109 12/06/2018 [facility] CHEM PANEL CO2 27 24 - 32 12/06/2018 [facility] CHEM PANEL Glucose Lvl 99 70 - 99 12/06/2018 [facility] CHEM PANEL AGAP 9.8 10.0 - 20.0 12/06/2018 [facility] HEMATOLOGY Basophils # 0.1 0.0 - 0.2 12/06/2018 [facility] HEMATOLOGY Basophils 1.0 0.0 - 1.0 12/06/2018 [facility] HEMATOLOGY Lymphocytes # 2.1 1.0 - 5.5 12/06/2018 [facility] HEMATOLOGY Neutrophils # 4.8 1.5 - 8.1 12/06/2018 [facility] HEMATOLOGY Eosinophils # 0.5 0.0 - 0.5 12/06/2018 [facility] HEMATOLOGY Monocytes # 0.8 0.0 - 0.8 12/06/2018 [facility] HEMATOLOGY Monocytes 9.8 2.0 - 12.0 12/06/2018 [facility] HEMATOLOGY Lymphocytes 25.0 20.0 - 40.0 12/06/2018 [facility] HEMATOLOGY Eosinophils 6.3 0.0 - 4.0 12/06/2018 [facility] HEMATOLOGY Segs 57.9 45.0 - 75.0 12/06/2018 [facility] HEMATOLOGY INR 1.09 0.85 - 1.17 12/06/2018 [facility] HEMATOLOGY PT 13.9 12.0 - 14.7 12/06/2018 [facility] HEMATOLOGY MPV 8.3 7.4 - 10.4 12/06/2018 [facility] HEMATOLOGY RDW 13.2 11.5 - 14.5 12/06/2018 [facility] HEMATOLOGY MCHC 33.0 32.0 - 36.0 12/06/2018 [facility] HEMATOLOGY Platelet 240 133 - 450 12/06/2018 [facility] HEMATOLOGY RBC 3.96 4.20 - 5.40 12/06/2018 [facility] HEMATOLOGY WBC 8.4 3.7 - 10.4 12/06/2018 [facility] HEMATOLOGY MCH 28.6 27.0 - 31.0 12/06/2018 [facility] HEMATOLOGY MCV 86.6 80.0 - 98.0 12/06/2018 [facility] HEMATOLOGY Hgb 11.3 12.0 - 16.0 12/06/2018 [facility] HEMATOLOGY Hct 34.3 36.0 - 48.0 12/06/2018 [facility] TOXICOLOGY Vanco Lvl 15.3 12/05/2018 [facility] CHEM PANEL Magnesium Lvl 1.9 1.8 - 2.4 12/04/2018 [facility] CHEM PANEL Bili Total 0.7 0.2 - 1.3 12/04/2018 [facility] CHEM PANEL Alk Phos 72 39 - 136 12/04/2018 [facility] CHEM PANEL Total Protein 6.9 6.4 - 8.4 12/04/2018 [facility] CHEM PANEL AST 13 0 - 37 12/04/2018 [facility] CHEM PANEL ALT 29 0 - 65 12/04/2018 [facility] CHEM PANEL Albumin Lvl 2.8 3.5 - 5.0 12/04/2018 [facility] CHEM PANEL Globulin 4.1 2.7 - 4.2 12/04/2018 [facility] CHEM PANEL A/G Ratio 0.7 0.7 - 1.6 12/04/2018 [facility] CHEM PANEL B/C Ratio 14 6 - 25 12/04/2018 [facility] HEMATOLOGY PTT 44.5 22.9 - 35.8 12/04/2018 [facility] HEMATOLOGY PT 16.0 12.0 - 14.7 12/04/2018 [facility] HEMATOLOGY INR 1.31 0.85 - 1.17 12/04/2018 [facility] CHEM PANEL Lactic Acid Lvl 1.1 0.5 - 2.2 12/04/2018 [facility] CHEM PANEL Lactic Acid Lvl 0.7 0.5 - 2.2 12/03/2018 [facility] ENDOCRINOLOGY S Preg Ne gative *NA* (12/03/18 4:23 PM) Negative [facility]/03/2018 [facility] Lactic Acid Lvl 1.0 0.5 - 2.2 10/11/2018 [place] CHEM PANEL B/C Ratio 19 6 - 25 10/11/2018 [facility] AGAP 9.8 10.0 - 20.0 10/11/2018 [facility] Globulin 4.5 2.7 - 4.2 10/11/2018 [facility] A/G Ratio 0.8 0.7 - 1.6 10/11/2018 [facility] CHE[facility] PAN[facility] eGFR 93 10/11/2018 Result Comment: The eGFR is calculated using the CKD-EPI formula. In most young, healthy individuals the eGFR will be >90 mL/min/1.73m2. The eGFR declines with age. An eGFR of 60-89 may be normal in some populations, particularly the elderly, for whom the CKD-EPI formula has not been extensively validated. Use of the eGFR is not recommended in the following populations:

Individuals with unstable creatinine concentrations, including patients and those with serious co-morbid conditions.

Patients with extremes in muscle mass or diet.

The data above are obtained from the National Kidney Disease Education Program (NKDEP) which additionally recommends that when the eGFR is used in patients with extremes of body mass index for purposes of drug dosing, the eGFR should be multiplied by the estimated BMI. [place] CHEM PANEL ALT 24 0 - 65 10/11/2018 [facility] AST 17 0 - 37 10/11/2018 [facility] Alk Phos 81 39 - 136 10/11/2018 [facility] CHE[facility] PAN[facility] Bili Total 0.3 0.2 - 1.3 10/11/2018 [facility] Creatinine Lvl 0.83 0.50 - 1.40 10/11/2018 [place] CHEM PANEL Glucose Lvl 84 70 - 99 10/11/2018 [place] CHEM PANEL BUN 16 7 - 22 10/11/2018 [place] CHEM PANEL Potassium Lvl 3.8 3.5 - 5.1 10/11/2018 [facility] CHEM PANEL Sodium Lvl 139 135 - 145 10/11/2018 [facility] CHEM PANEL CO2 26 24 - 32 10/11/2018 [facility] CHEM PANEL Calcium Lvl 8.5 8.5 - 10.5 10/11/2018 [facility] CHEM PANEL Chloride Lvl 107 95 - 109 10/11/2018 [facility] CHEM PANEL Total Protein 8.0 6.4 - 8.4 10/11/2018 [facility] CHEM PANEL Albumin Lvl 3.5 3.5 - 5.0 10/11/2018 [facility] HEMATOLOGY Monocytes # 0.8 0.0 - 0.8 10/11/2018 [facility] HEMATOLOGY Basophils # 0.1 0.0 - 0.2 10/11/2018 [facility] HEMATOLOGY Eosinophils # 0.3 0.0 - 0.5 10/11/2018 [facility] HEMATOLOGY Monocytes 7.7 2.0 - 12.0 10/11/2018 [facility] HEMATOLOGY Eosinophils 3.0 0.0 - 4.0 10/11/2018 [facility] HEMATOLOGY Basophils 0.6 0.0 - 1.0 10/11/2018 [facility] HEMATOLOGY Neutrophils # 6.8 1.5 - 8.1 10/11/2018 [facility] HEMATOLOGY Lymphocytes # 2.4 1.0 - 5.5 10/11/2018 [facility] HEMATOLOGY Lymphocytes 22.9 20.0 - 40.0 10/11/2018 [facility] HEMATOLOGY Segs 65.8 45.0 - 75.0 10/11/2018 [facility] HEMATOLOGY RDW 13.3 11.5 - 14.5 10/11/2018 [facility] HEMATOLOGY MCHC 32.5 32.0 - 36.0 10/11/2018 [facility] HEMATOLOGY MCH 28.8 27.0 - 31.0 10/11/2018 [facility] HEMATOLOGY Hct 42.6 36.0 - 48.0 10/11/2018 [facility] HEMATOLOGY Hgb 13.8 12.0 - 16.0 10/11/2018 [facility] HEMATOLOGY WBC 10.3 3.7 - 10.4 10/11/2018 [facility] HEMATOLOGY MCV 88.5 80.0 - 98.0 10/11/2018 [facility] HEMATOLOGY RBC 4.81 4.20 - 5.40 10/11/2018 [facility] HEMATOLOGY Platelet 272 133 - 450 10/11/2018 [facility] HEMATOLOGY MPV 8.7 7.4 - 10.4 10/11/2018 [facility] CHEM PANEL Lactic Acid Lvl 1.5 0.5 - 2.2 09/06/2018 [facility] CHEM PANEL Bili Total 0.5 0.2 - 1.3 09/06/2018 [facility] CHEM PANEL AST 15 0 - 37 09/06/2018 [facility] CHEM PANEL Alk Phos 74 39 - 136 09/06/2018 [facility] CHEM PANEL eGFR 72 09/06/2018 Result Comment: The eGFR is calculated using the CKD-EPI formula. In most young, healthy individuals the eGFR will be >90 mL/min/1.73m2. The eGFR declines with age. An eGFR of 60-89 may be normal in some populations, particularly the elderly, for whom the CKD-EPI formula has not been extensively validated. Use of the eGFR is not recommended in the following populations:

Individuals with unstable creatinine concentrations, including patients and those with serious co-morbid conditions.

Patients with extremes in muscle mass or diet.

The data above are obtained from the National Kidney Disease Education Program (NKDEP) which additionally recommends that when the eGFR is used in patients with extremes of body mass index for purposes of drug dosing, the eGFR should be multiplied by the estimated BMI. [facility] CHEM PANEL Creatinine Lvl 1.03 0.50 - 1.40 09/06/2018 [facility] CHEM PANEL Sodium Lvl 140 135 - 145 09/06/2018 [facility] CHEM PANEL Potassium Lvl 3.6 3.5 - 5.1 09/06/2018 [facility] CHEM PANEL Total Protein 7.4 6.4 - 8.4 09/06/2018 [facility] CHEM PANEL Albumin Lvl 3.3 3.5 - 5.0 09/06/2018 [facility] CHEM PANEL ALT 27 0 - 65 09/06/2018 [facility] CHEM PANEL Glucose Lvl 120 70 - 99 09/06/2018 [facility] CHEM PANEL BUN 11 7 - 22 09/06/2018 [facility] CHEM PANEL Calcium Lvl 8.3 8.5 - 10.5 09/06/2018 [facility] CHEM PANEL Chloride Lvl 109 95 - 109 09/06/2018 [facility] CHEM PANEL CO2 24 24 - 32 09/06/2018 [facility] CHEM PANEL A/G Ratio 0.8 0.7 - 1.6 09/06/2018 [facility] CHEM PANEL AGAP 10.6 10.0 - 20.0 09/06/2018 [facility] CHEM PANEL B/C Ratio 11 6 - 25 09/06/2018 [facility] CHEM PANEL Globulin 4.1 2.7 - 4.2 09/06/2018 [facility] CHEM PANEL Lipase Lvl 200 73 - 393 09/06/2018 [facility] ENDOCRINOLOGY S Preg Ne gative *NA* (09/06/18 12:46 AM) Negative 09/06/2018 [facility] HEMATOLOGY Platelet 230 133 - 450 09/06/2018 [facility] HEMATOLOGY MPV 8.3 7.4 - 10.4 09/06/2018 [facility] MCHC 33.1 32.0 - 36.0 09/06/2018 [facility] HEMATOLOGY RDW 13.7 11.5 - 14.5 09/06/2018 [facility] MCH 28.5 27.0 - 31.0 09/06/2018 [facility] HEMATOLOGY RBC 4.70 4.20 - 5.40 09/06/2018 [facility] HEMATOLOGY Hgb 13.4 12.0 - 16.0 09/06/2018 [facility] HEMATOLOGY WBC 12.6 3.7 - 10.4 09/06/2018 [facility] HEMATOLOGY Hct 40.5 36.0 - 48.0 09/06/2018 [facility] HEMATOLOGY MCV 86.2 80.0 - 98.0 09/06/2018 [facility] HEMATOLOGY Basophils # 0.1 0.0 - 0.2 09/06/2018 [facility] HEMATOLOGY Eosinophils # 0.4 0.0 - 0.5 09/06/2018 [facility] HEMATOLOGY Monocytes # 0.8 0.0 - 0.8 09/06/2018 [facility] HEMATOLOGY Neutrophils # 8.4 1.5 - 8.1 09/06/2018 [facility] HEMATOLOGY Lymphocytes # 2.9 1.0 - 5.5 09/06/2018 [facility] HEMATOLOGY Eosinophils 3.6 0.0 - 4.0 09/06/2018 [facility] HEMATOLOGY Basophils 0.7 0.0 - 1.0 09/06/2018 [facility] HEMATOLOGY Lymphocytes 22.9 20.0 - 40.0 09/06/2018 [facility] HEMATOLOGY Monocytes 6.3 2.0 - 12.0 09/06/2018 [facility] HEMATOLOGY Segs 66.5 45.0 - 75.0 09/06/2018 [facility] URINE AND STOOL UA Sq Epi Moderate /LPF Few /LPF 09/06/2018 [facility] URINE AND STOOL UA Leuk Est Negative (09/06/18 12:46 AM) Negative 09/06/2018 [facility] URINE AND STOOL UA RBC 112 0 - 2 09/06/2018 [facility] URINE AND STOOL UA WBC 3 0 - 5 09/06/2018 [facility] URINE AND STOOL UA Mucus Few /LPF None Seen /LPF 09/06/2018 [facility] URINE AND STOOL UA Ketones Negative *NA* (09/06/18 12:46 AM) Negative 09/06/2018 [facility] URINE AND STOOL UA Turbidity Slight *ABN* (09/06/18 12:46 AM) Clear 09/06/2018 [facility] URINE AND STOOL UA Color Yellow *NA* (09/06/18 12:46 AM) Yellow 09/06/2018 [facility] URINE AND STOOL UA Spec Grav 1.023 <=1.030 09/06/2018 [facility] URINE AND STOOL UA Nitrite Negative (09/06/18 12:46 AM) Negative 09/06/2018 [facility] URINE AND STOOL UA pH 5.0 5.0 - 8.0 09/06/2018 [facility] URINE AND STOOL UA Protein Negative (09/06/18 12:46 AM) Negative 09/06/2018 [facility] URINE AND STOOL UA Glucose Negative *NA* (09/06/18 12:46 AM) Negative 09/06/2018 [facility] URINE AND STOOL UA Bacteria Occasional /HPF None Seen /HPF 09/06/2018 [facility] URINE AND STOOL UA Bili Negative *NA* (09/06/18 12:46 AM) Negative 09/06/2018 [facility] URINE AND STOOL UA Urobilinogen <=1.0 mg/dL 0.1 - 1.0 09/06/2018 [facility] URINE AND STOOL UA Blood Large *ABN* (09/06/18 12:46 AM) Negative 09/06/2018 [facility] CHEM PANEL Magnesium Lvl 1.9 1.8 - 2.4 08/28/2018 [facility] ELECTROLYTES AGAP 11.1 10.0 - 20.0 08/28/2018 [facility] ELECTROLYTES eGFR 116 08/28/2018 Result Comment: The eGFR is calculated using the CKD-EPI formula. In most young, healthy individuals the eGFR will be >90 mL/min/1.73m2. The eGFR declines with age. An eGFR of 60-89 may be normal in some populations, particularly the elderly, for whom the CKD-EPI formula has not been extensively validated. Use of the eGFR is not recommended in the following populations:

Individuals with unstable creatinine concentrations, including patients and those with serious co-morbid conditions.

Patients with extremes in muscle mass or diet.

The data above are obtained from the National Kidney Disease Education Program (NKDEP) which additionally recommends that when the eGFR is used in patients with extremes of body mass index for purposes of drug dosing, the eGFR should be multiplied by the estimated BMI. [facility] ELECTROLYTES Calcium Lvl 8.4 8.5 - 10.5 08/28/2018 [facility] ELECTROLYTES BUN 13 7 - 22 08/28/2018 [facility] ELECTROLYTES Sodium Lvl 137 135 - 145 08/28/2018 [facility] ELECTROLYTES Creatinine Lvl 0.6 9 0.50 - 1.40 08/28/2018 [facility] ELECTROLYTES Potassium Lvl 4.1 3.5 - 5.1 08/28/2018 [facility] ELECTROLYTES CO2 25 24 - 32 08/28/2018 [facility] ELECTROLYTES Chloride Lvl 105 95 - 109 08/28/2018 [facility] ELECTROLYTES Glucose Lvl 105 70 - 99 08/28/2018 [facility] HEMATOLOGY INR 1.01 0.85 - 1.17 08/28/2018 [facility] HEMATOLOGY PTT 33.7 22.9 - 35.8 08/28/2018 [facility] HEMATOLOGY PT 13.1 12.0 - 14.7 08/28/2018 [facility] HEMATOLOGY Lymphocytes 26.9 20.0 - 40.0 08/28/2018 [facility] Lymphocytes # 2.1 1.0 - 5.5 08/28/2018 [facility] HEMATOLOGY Eosinophils 6.7 0.0 - 4.0 08/28/2018 [facility] HEMATOLOGY Monocytes 9.3 2.0 - 12.0 08/28/2018 [facility] HEMATOLOGY Segs 56.2 45.0 - 75.0 08/28/2018 [facility] Monocytes # 0.7 0.0 - 0.8 08/28/2018 [facility] HEMATOLOGY Eosinophils # 0.5 0.0 - 0.5 08/28/2018 [facility] HEMATOLOGY Neutrophils # 4.3 1.5 - 8.1 08/28/2018 [facility] HEMATOLOGY Basophils 0.9 0.0 - 1.0 08/28/2018 [facility] HEMATOLOGY Basophils # 0.1 0.0 - 0.2 08/28/2018 [facility] MPV 8.1 7.4 - 10.4 08/28/2018 [facility] RDW 13.4 11.5 - 14.5 08/28/2018 [facility] HEMATOLOGY Platelet 233 133 - 450 08/28/2018 [facility] HEMATOLOGY MCHC 33.2 32.0 - 36.0 08/28/2018 [facility] HEMATOLOGY MCV 87.4 80.0 - 98.0 08/28/2018 [facility] MCH 29.0 27.0 - 31.0 08/28/2018 [facility] Hct 41.5 36.0 - 48.0 08/28/2018 [facility] HEMATOLOGY WBC 7.7 3.7 - 10.4 08/28/2018 [facility] HEMATOLOGY RBC 4.74 4.20 - 5.40 08/28/2018 [facility] HEMATOLOGY Hgb 13.8 12.0 - 16.0 08/28/2018 [facility] HEMATOLOGY PT 12.9 12.0 - 14.7 08/28/2018 [facility] HEMATOLOGY INR 0.99 0.85 - 1.17 08/28/2018 [facility] CHEM PANEL Magnesium Lvl 2.1 1.8 - 2.4 08/27/2018 [facility] ELECTROLYTES Chloride Lvl 105 95 - 109 08/27/2018 [facility] ELECTROLYTES Potassium Lvl 4.1 3.5 - 5.1 08/27/2018 [facility] ELECTROLYTES Sodium Lvl 141 135 - 145 08/27/2018 [facility] ELECTROLYTES BUN 12 7 - 22 08/27/2018 [facility] ELECTROLYTES Glucose Lvl 90 70 - 99 08/27/2018 [facility] ELECTROLYTES Creatinine Lvl 0.6 2 0.50 - 1.40 08/27/2018 [facility] ELECTROLYTES Calcium Lvl 8.4 8.5 - 10.5 08/27/2018 [facility] ELECTROLYTES CO2 28 24 - 32 08/27/2018 [facility] ELECTROLYTES eGFR 119 08/27/2018 Result Comment: The eGFR is calculated using the CKD-EPI formula. In most young, healthy individuals the eGFR will be >90 mL/min/1.73m2. The eGFR declines with age. An eGFR of 60-89 may be normal in some populations, particularly the elderly, for whom the CKD-EPI formula has not been extensively validated. Use of the eGFR is not recommended in the following populations:

Individuals with unstable creatinine concentrations, including patients and those with serious co-morbid conditions.

Patients with extremes in muscle mass or diet.

The data above are obtained from the National Kidney Disease Education Program (NKDEP) which additionally recommends that when the eGFR is used in patients with extremes of body mass index for purposes of drug dosing, the eGFR should be multiplied by the estimated BMI. [facility] ELECTROLYTES AGAP 12.1 10.0 - 20.0 08/27/2018 [facility] HEMATOLOGY WBC 7.7 3.7 - 10.4 08/27/2018 [facility] HEMATOLOGY Hgb 13.2 12.0 - 16.0 08/27/2018 [facility] RBC 4.56 4.20 - 5.40 08/27/2018 [facility] HEMATOLOGY Hct 39.0 36.0 - 48.0 08/27/2018 [facility] HEMATOLOGY RDW 13.4 11.5 - 14.5 08/27/2018 [facility] MCHC 33.9 32.0 - 36.0 08/27/2018 [facility] MCH 28.9 27.0 - 31.0 08/27/2018 [facility] Platelet 254 133 - 450 08/27/2018 [facility] MCV 85.4 80.0 - 98.0 08/27/2018 [facility] MPV 8.4 7.4 - 10.4 08/27/2018 [facility] Monocytes # 0.9 0.0 - 0.8 08/27/2018 [facility] HEMATOLOGY Eosinophils # 0.5 0.0 - 0.5 08/27/2018 [facility] Basophils # 0.1 0.0 - 0.2 08/27/2018 [facility] Monocytes 11.1 2.0 - 12.0 08/27/2018 [facility] Lymphocytes 24.6 20.0 - 40.0 08/27/2018 [facility] Segs 56.9 45.0 - 75.0 08/27/2018 [facility] HEMATOLOGY Basophils 1.1 0.0 - 1.0 08/27/2018 [facility] HEMATOLOGY Eosinophils 6.3 0.0 - 4.0 08/27/2018 [facility] HEMATOLOGY Neutrophils # 4.4 1.5 - 8.1 08/27/2018 [facility] HEMATOLOGY Lymphocytes # 1.9 1.0 - 5.5 08/27/2018 [facility] TOXICOLOGY Vanco Tr TND 0000 08/27/2018 [facility] TOXICOLOGY Vanco Tr 13.1 08/27/2018 [facility] CHEM PANEL Magnesium Lvl 1.9 1.8 - 2.4 08/26/2018 [facility] CHEM PANEL eGFR 123 08/26/2018 Result Comment: The eGFR is calculated using the CKD-EPI formula. In most young, healthy individuals the eGFR will be >90 mL/min/1.73m2. The eGFR declines with age. An eGFR of 60-89 may be normal in some populations, particularly the elderly, for whom the CKD-EPI formula has not been extensively validated. Use of the eGFR is not recommended in the following populations:

Individuals with unstable creatinine concentrations, including patients and those with serious co-morbid conditions.

Patients with extremes in muscle mass or diet.

The data above are obtained from the National Kidney Disease Education Program (NKDEP) which additionally recommends that when the eGFR is used in patients with extremes of body mass index for purposes of drug dosing, the eGFR should be multiplied by the estimated BMI. [place] CHEM PANEL Chloride Lvl 106 95 - 109 08/26/2018 [place] CHEM PANEL CO2 27 24 - 32 08/26/2018 [facility] CHEM PANEL BUN 12 7 - 22 08/26/2018 [facility] Calcium Lvl 8.0 8.5 - 10.5 08/26/2018 [facility] CHEM PANEL Potassium Lvl 4.0 3.5 - 5.1 08/26/2018 [facility] CHEM PANEL Sodium Lvl 140 135 - 145 08/26/2018 [facility] CHEM PANEL Creatinine Lvl 0.56 0.50 - 1.40 08/26/2018 [facility] CHE[facility] PAN[facility] Glucose Lvl 89 70 - 99 08/26/2018 [facility] CHEM PANEL AGAP 11.0 10.0 - 20.0 08/26/2018 [facility] HEMATOLOGY Monocytes # 0.8 0.0 - 0.8 08/26/2018 [facility] HEMATOLOGY Eosinophils # 0.5 0.0 - 0.5 08/26/2018 [facility] HEMATOLOGY Basophils # 0.1 0.0 - 0.2 08/26/2018 [facility] HEMATOLOGY Eosinophils 5.7 0.0 - 4.0 08/26/2018 [facility] HEMATOLOGY Lymphocytes 23.6 20.0 - 40.0 08/26/2018 [facility] HEMATOLOGY Monocytes 9.6 2.0 - 12.0 08/26/2018 [facility] HEMATOLOGY Basophils 1.0 0.0 - 1.0 08/26/2018 [facility] HEMATOLOGY Neutrophils # 5.2 1.5 - 8.1 08/26/2018 [facility] Lymphocytes # 2.1 1.0 - 5.5 08/26/2018 [facility] HEMATOLOGY Segs 60.1 45.0 - 75.0 08/26/2018 [facility] HEMATOLOGY RDW 13.3 11.5 - 14.5 08/26/2018 [facility] HEMATOLOGY Platelet 228 133 - 450 08/26/2018 [facility] HEMATOLOGY Hct 38.0 36.0 - 48.0 08/26/2018 [facility] HEMATOLOGY RBC 4.40 4.20 - 5.40 08/26/2018 [facility] HEMATOLOGY WBC 8.7 3.7 - 10.4 08/26/2018 [facility] HEMATOLOGY Hgb 12.9 12.0 - 16.0 08/26/2018 [facility] MCH 29.2 27.0 - 31.0 08/26/2018 [facility] HEMATOLOGY MCV 86.2 80.0 - 98.0 08/26/2018 [facility] HEMATOLOGY MCHC 33.9 32.0 - 36.0 08/26/2018 [facility] HEMATOLOGY MPV 8.2 7.4 - 10.4 08/26/2018 [facility] TOXICOLOGY Vanco Tr TND 1330 08/25/2018 [facility] TOXICOLOGY Vanco Tr 15.8 08/25/2018 [facility] CHEM PANEL Phosphorus 3.7 2.5 - 4.5 08/25/2018 [facility] CHEM PANEL B/C Ratio 24 6 - 25 08/25/2018 [facility] CHEM PANEL A/G Ratio 0.8 0.7 - 1.6 08/25/2018 [facility] CHEM PANEL Globulin 3.6 2.7 - 4.2 08/25/2018 [facility] CHEM PANEL Bili Total 0.3 0.2 - 1.3 08/25/2018 [facility] CHEM PANEL Alk Phos 77 39 - 136 08/25/2018 [facility] CHEM PANEL AST 19 0 - 37 08/25/2018 [facility] CHEM PANEL ALT 23 0 - 65 08/25/2018 [facility] CHEM PANEL Albumin Lvl 2.8 3.5 - 5.0 08/25/2018 [facility] CHEM PANEL Total Protein 6.4 6.4 - 8.4 08/25/2018 [facility] CHEM PANEL Procalcitonin Lvl <0.05 0.00 - 0.10 08/24/2018 [facility] CHEM PANEL Lactic Acid Lvl 1.1 0.5 - 2.2 08/24/2018 [facility] IMMUNOLOGY HIV Ag/Ab 4th Gen Negat theron *NA* (08/24/18 5:22 PM) Negative 08/24/2018 [facility] CHEM PANEL Lactic Acid Lvl 2.2 0.5 - 2.2 08/24/2018 [facility] CHEM PANEL Total Protein 7.8 6.4 - 8.4 08/24/2018 [facility] CHEM PANEL Albumin Lvl 3.8 3.5 - 5.0 08/24/2018 [facility] CHEM PANEL Alk Phos 99 39 - 136 08/24/2018 [facility] CHEM PANEL Bili Total 0.3 0.2 - 1.3 08/24/2018 [facility] CHEM PANEL AST 18 0 - 37 08/24/2018 [facility] CHEM PANEL ALT 21 0 - 65 08/24/2018 [facility] CHEM PANEL Globulin 4.0 2.7 - 4.2 08/24/2018 [facility] CHEM PANEL A/G Ratio 1.0 0.7 - 1.6 08/24/2018 [facility] CHEM PANEL B/C Ratio 17 6 - 25 08/24/2018 [facility] ENDOCRINOLOGY S Preg Ne gative *NA* (08/24/18 4:15 AM) Negative 08/24/2018 [facility] HEMATOLOGY Plt Morph Concetta l (08/24/18 4:15 AM) 08/24/2018 [facility] HEMATOLOGY RBC Morph Concetta l (08/24/18 4:15 AM) 08/24/2018 [facility] HEMATOLOGY Large Plt Occasional 08/24/2018 [facility] SPECIAL CHEMISTRY Hgb A1C 5.3 <=5.6 % 08/24/2018 [facility] ELECTROLYTES AGAP 12.2 10.0 - 20.0 05/21/2018 [facility] ELECTROLYTES eGFR 111 05/21/2018 Result Comment: The eGFR is calculated using the CKD-EPI formula. In most young, healthy individuals the eGFR will be >90 mL/min/1.73m2. The eGFR declines with age. An eGFR of 60-89 may be normal in some populations, particularly the elderly, for whom the CKD-EPI formula has not been extensively validated. Use of the eGFR is not recommended in the following populations:

Individuals with unstable creatinine concentrations, including patients and those with serious co-morbid conditions.

Patients with extremes in muscle mass or diet.

The data above are obtained from the National Kidney Disease Education Program (NKDEP) which additionally recommends that when the eGFR is used in patients with extremes of body mass index for purposes of drug dosing, the eGFR should be multiplied by the estimated BMI. [facility] ELECTROLYTES Glucose Lvl 89 70 - 99 05/21/2018 [facility] ELECTROLYTES Potassium Lvl 4.2 3.5 - 5.1 05/21/2018 [facility] ELECTROLYTES Chloride Lvl 105 95 - 109 05/21/2018 [facility] ELECTROLYTES Creatinine Lvl 0.7 2 0.50 - 1.40 05/21/2018 [facility] ELECTROLYTES Sodium Lvl 142 135 - 145 05/21/2018 [facility] ELECTROLYTES BUN 9 7 - 22 05/21/2018 [facility] ELECTROLYTES CO2 29 24 - 32 05/21/2018 [facility] ELECTROLYTES Calcium Lvl 8.2 8.5 - 10.5 05/21/2018 [facility] HEMATOLOGY Eosinophils # 0.3 0.0 - 0.5 05/21/2018 [facility] HEMATOLOGY Monocytes # 0.8 0.0 - 0.8 05/21/2018 [facility] HEMATOLOGY Basophils # 0.1 0.0 - 0.2 05/21/2018 [facility] HEMATOLOGY Lymphocytes 32.9 20.0 - 40.0 05/21/2018 [facility] HEMATOLOGY Segs 50.8 45.0 - 75.0 05/21/2018 [facility] HEMATOLOGY Lymphocytes # 2.3 1.0 - 5.5 05/21/2018 [facility] HEMATOLOGY Neutrophils # 3.6 1.5 - 8.1 05/21/2018 [facility] HEMATOLOGY Basophils 0.8 0.0 - 1.0 05/21/2018 [facility] HEMATOLOGY Eosinophils 4.8 0.0 - 4.0 05/21/2018 [facility] HEMATOLOGY Monocytes 10.7 2.0 - 12.0 05/21/2018 [facility] Hct 35.3 36.0 - 48.0 05/21/2018 [facility] Platelet 267 133 - 450 05/21/2018 [facility] RDW 12.9 11.5 - 14.5 05/21/2018 [facility] MCV 85.6 80.0 - 98.0 05/21/2018 [facility] MCHC 34.4 32.0 - 36.0 05/21/2018 [facility] MCH 29.4 27.0 - 31.0 05/21/2018 [facility] MPV 8.4 7.4 - 10.4 05/21/2018 [facility] RBC 4.12 4.20 - 5.40 05/21/2018 [facility] WBC 7.1 3.7 - 10.4 05/21/2018 [facility] HEMATOLOGY Hgb 12.1 12.0 - 16.0 05/21/2018 [facility] TOXICOLOGY Vanco Tr 15.7 05/21/2018 [facility] TOXICOLOGY Vanco Tr TND 0300 05/21/2018 [facility] ELECTROLYTES AGAP 10.9 10.0 - 20.0 05/20/2018 [facility] ELECTROLYTES eGFR 122 05/20/2018 Result Comment: The eGFR is calculated using the CKD-EPI formula. In most young, healthy individuals the eGFR will be >90 mL/min/1.73m2. The eGFR declines with age. An eGFR of 60-89 may be normal in some populations, particularly the elderly, for whom the CKD-EPI formula has not been extensively validated. Use of the eGFR is not recommended in the following populations:

Individuals with unstable creatinine concentrations, including patients and those with serious co-morbid conditions.

Patients with extremes in muscle mass or diet.

The data above are obtained from the National Kidney Disease Education Program (NKDEP) which additionally recommends that when the eGFR is used in patients with extremes of body mass index for purposes of drug dosing, the eGFR should be multiplied by the estimated BMI. [facility] ELECTROLYTES CO2 26 24 - 32 05/20/2018 [facility] ELECTROLYTES Chloride Lvl 111 95 - 109 05/20/2018 [facility] ELECTROLYTES Sodium Lvl 144 135 - 145 05/20/2018 [facility] ELECTROLYTES Potassium Lvl 3.9 3.5 - 5.1 05/20/2018 [facility] ELECTROLYTES Calcium Lvl 8.0 8.5 - 10.5 05/20/2018 [facility] ELECTROLYTES Creatinine Lvl 0.5 9 0.50 - 1.40 05/20/2018 [facility] ELECTROLYTES Glucose Lvl 94 70 - 99 05/20/2018 [facility] ELECTROLYTES BUN 9 7 - 22 05/20/2018 [facility] HEMATOLOGY Segs 55.0 45.0 - 75.0 05/20/2018 [facility] HEMATOLOGY Lymphocytes 31.9 20.0 - 40.0 05/20/2018 [facility] HEMATOLOGY Eosinophils 2.3 0.0 - 4.0 05/20/2018 [facility] HEMATOLOGY Monocytes 9.9 2.0 - 12.0 05/20/2018 [facility] HEMATOLOGY Monocytes # 0.7 0.0 - 0.8 05/20/2018 [facility] HEMATOLOGY Lymphocytes # 2.4 1.0 - 5.5 05/20/2018 [facility] HEMATOLOGY Basophils # 0.1 0.0 - 0.2 05/20/2018 [facility] HEMATOLOGY Eosinophils # 0.2 0.0 - 0.5 05/20/2018 [facility] HEMATOLOGY Neutrophils # 4.1 1.5 - 8.1 05/20/2018 [facility] HEMATOLOGY Basophils 0.9 0.0 - 1.0 05/20/2018 [facility] HEMATOLOGY MCH 29.8 27.0 - 31.0 05/20/2018 [facility] HEMATOLOGY MCV 86.8 80.0 - 98.0 05/20/2018 [facility] HEMATOLOGY RBC 3.85 4.20 - 5.40 05/20/2018 [facility] HEMATOLOGY WBC 7.4 3.7 - 10.4 05/20/2018 [facility] HEMATOLOGY Hct 33.4 36.0 - 48.0 05/20/2018 [facility] HEMATOLOGY Hgb 11.5 12.0 - 16.0 05/20/2018 [facility] HEMATOLOGY RDW 12.9 11.5 - 14.5 05/20/2018 [facility] HEMATOLOGY MCHC 34.3 32.0 - 36.0 05/20/2018 [facility] HEMATOLOGY MPV 8.7 7.4 - 10.4 05/20/2018 [facility] Platelet 249 133 - 450 05/20/2018 [facility] ELECTROLYTES AGAP 14.4 10.0 - 20.0 05/19/2018 [facility] ELECTROLYTES eGFR 110 05/19/2018 Result Comment: The eGFR is calculated using the CKD-EPI formula. In most young, healthy individuals the eGFR will be >90 mL/min/1.73m2. The eGFR declines with age. An eGFR of 60-89 may be normal in some populations, particularly the elderly, for whom the CKD-EPI formula has not been extensively validated. Use of the eGFR is not recommended in the following populations:

Individuals with unstable creatinine concentrations, including patients and those with serious co-morbid conditions.

Patients with extremes in muscle mass or diet.

The data above are obtained from the National Kidney Disease Education Program (NKDEP) which additionally recommends that when the eGFR is used in patients with extremes of body mass index for purposes of drug dosing, the eGFR should be multiplied by the estimated BMI. [facility] ELECTROLYTES Calcium Lvl 8.2 8.5 - 10.5 05/19/2018 [facility] ELECTROLYTES Potassium Lvl 4.4 3.5 - 5.1 05/19/2018 [facility] ELECTROLYTES Chloride Lvl 109 95 - 109 05/19/2018 [facility] ELECTROLYTES CO2 25 24 - 32 05/19/2018 [facility] ELECTROLYTES Glucose Lvl 131 70 - 99 05/19/2018 [facility] ELECTROLYTES BUN 7 7 - 22 05/19/2018 [facility] ELECTROLYTES Sodium Lvl 144 135 - 145 05/19/2018 [facility] ELECTROLYTES Creatinine Lvl 0.7 3 0.50 - 1.40 05/19/2018 [facility] HEMATOLOGY Basophils 0.3 0.0 - 1.0 05/19/2018 [facility] HEMATOLOGY Eosinophils 0.1 0.0 - 4.0 05/19/2018 [facility] Segs 83.5 45.0 - 75.0 05/19/2018 [facility] Lymphocytes 9.1 20.0 - 40.0 05/19/2018 [facility] Monocytes 7.0 2.0 - 12.0 05/19/2018 [facility] HEMATOLOGY Neutrophils # 8.9 1.5 - 8.1 05/19/2018 [facility] Monocytes # 0.7 0.0 - 0.8 05/19/2018 [facility] Lymphocytes # 1.0 1.0 - 5.5 05/19/2018 [facility] MPV 8.4 7.4 - 10.4 05/19/2018 [facility] Platelet 239 133 - 450 05/19/2018 [facility] HEMATOLOGY RDW 12.8 11.5 - 14.5 05/19/2018 [facility] MCHC 33.2 32.0 - 36.0 05/19/2018 [facility] WBC 10.6 3.7 - 10.4 05/19/2018 [facility] MCV 88.3 80.0 - 98.0 05/19/2018 [facility] Hct 38.9 36.0 - 48.0 05/19/2018 [facility] RBC 4.41 4.20 - 5.40 05/19/2018 [facility] MCH 29.3 27.0 - 31.0 05/19/2018 [facility] Hgb 12.9 12.0 - 16.0 05/19/2018 [facility] TOXICOLOGY Vanco Tr TND 0200 05/19/2018 [facility] TOXICOLOGY Vanco Tr 6.6 05/19/2018 [facility] TOXICOLOGY Vanco Tr 27.1 05/18/2018 [facility] TOXICOLOGY Vanco Tr TND 13:30 05/18/2018 [facility] AMPICILLIN+SULBACTAM:SUSC:PT:ISOLATE:ORDQN:MONISHA Gram Stain Report Many Gram Positive Cocci In Clusters No WBC's Se[facility] AMPICILLIN+SULBACTAM:SUSC:PT:ISOLATE:ORDQN:MONISHA Culture: Wound/Abscess w/Gram Stain Many Staphylococcus aureus 05/18/2018 [facility] AMPICILLIN+SULBACTAM:SUSC:PT:ISOLATE:ORDQN:MONISHA Staphylococcus aureus Staphylococcus aureus 05/18/2018 [facility] Culture: Anaerobic No Anaerobes Is olated 05/18/2018 [facility] CHEM PANEL Magnesium Lvl 1.9 1.8 - 2.4 05/17/2018 [facility] CHEM PANEL B/C Ratio 16 6 - 25 05/17/2018 [facility] CHEM PANEL Total Protein 7.0 6.4 - 8.4 05/17/2018 [facility] CHEM PANEL Globulin 4.0 2.7 - 4.2 05/17/2018 [facility] CHEM PANEL Albumin Lvl 3.0 3.5 - 5.0 05/17/2018 [facility] CHEM PANEL AST 11 0 - 37 05/17/2018 [facility] CHEM PANEL Bili Total 0.4 0.2 - 1.3 05/17/2018 [facility] CHEM PANEL Alk Phos 66 39 - 136 05/17/2018 [facility] CHEM PANEL ALT 19 0 - 65 05/17/2018 [facility] CHEM PANEL A/G Ratio 0.8 0.7 - 1.6 05/17/2018 [facility] HEMATOLOGY INR 1.14 0.85 - 1.17 05/17/2018 [facility] HEMATOLOGY PT 14.6 12.0 - 14.7 05/17/2018 [facility] HEMATOLOGY PTT 36.4 22.9 - 35.8 05/17/2018 [facility] HEMATOLOGY Basophils # 0.1 0.0 - 0.2 05/17/2018 [facility] HEMATOLOGY Eosinophils # 0.3 0.0 - 0.5 05/17/2018 [facility] CHEM PANEL Lactic Acid Lvl 1.3 0.5 - 2.2 05/17/2018 [facility] CHEM PANEL Globulin 4.1 2.7 - 4.2 05/17/2018 [facility] CHEM PANEL A/G Ratio 0.8 0.7 - 1.6 05/17/2018 [facility] CHEM PANEL B/C Ratio 13 6 - 25 05/17/2018 [facility] CHEM PANEL ALT 21 0 - 65 05/17/2018 [facility] CHEM PANEL AST 14 0 - 37 05/17/2018 [facility] CHEM PANEL Alk Phos 71 39 - 136 05/17/2018 [facility] CHEM PANEL Bili Total 0.2 0.2 - 1.3 05/17/2018 [facility] CHEM PANEL Albumin Lvl 3.2 3.5 - 5.0 05/17/2018 [facility] CHEM [facility] Total Protein 7.3 6.4 - 8.4 05/17/2018 [facility] ENDOCRINOLOGY S Preg Ne gative *NA* (05/17/18 12:24 AM) Negative 05/17/2018 [facility] CARDIAC ENZYMES Troponin-I <0.02 0.00 - 0.40 01/12/2018 [facility] CHEM PANEL A/G Ratio 1.0 0.7 - 1.6 01/12/2018 [facility] CHEM PANEL B/C Ratio 13 6 - 25 01/12/2018 [facility] CHEM PANEL Globulin 3.5 2.7 - 4.2 01/12/2018 [facility] CHEM PANEL AGAP 12.2 10.0 - 20.0 01/12/2018 [facility] CHEM PANEL eGFR 102 01/12/2018 Result Comment: The eGFR is calculated using the CKD-EPI formula. In most young, healthy individuals the eGFR will be >90 mL/min/1.73m2. The eGFR declines with age. An eGFR of 60-89 may be normal in some populations, particularly the elderly, for whom the CKD-EPI formula has not been extensively validated. Use of the eGFR is not recommended in the following populations:

Individuals with unstable creatinine concentrations, including patients and those with serious co-morbid conditions.

Patients with extremes in muscle mass or diet.

The data above are obtained from the National Kidney Disease Education Program (NKDEP) which additionally recommends that when the eGFR is used in patients with extremes of body mass index for purposes of drug dosing, the eGFR should be multiplied by the estimated BMI. [facility] CHEM PANEL Alk Phos 76 39 - 136 01/12/2018 [facility] CHEM PANEL AST 39 0 - 37 01/12/2018 [facility] CHEM PANEL ALT 38 0 - 65 01/12/2018 [facility] CHEM PANEL Bili Total 0.7 0.2 - 1.3 01/12/2018 [facility] CHEM PANEL Glucose Lvl 93 70 - 99 01/12/2018 [facility] CHEM PANEL Creatinine Lvl 0.78 0.50 - 1.40 01/12/2018 [facility] CHEM PANEL BUN 10 7 - 22 01/12/2018 [facility] CHEM PANEL Sodium Lvl 139 135 - 145 01/12/2018 [facility] CHEM PANEL Calcium Lvl 8.3 8.5 - 10.5 01/12/2018 [facility] CHEM PANEL Total Protein 7.0 6.4 - 8.4 01/12/2018 [facility] CHEM PANEL Albumin Lvl 3.5 3.5 - 5.0 01/12/2018 [facility] CHEM PANEL CO2 24 24 - 32 01/12/2018 [facility] CHEM PANEL Chloride Lvl 107 95 - 109 01/12/2018 [facility] CHEM PANEL Potassium Lvl 4.2 3.5 - 5.1 01/12/2018 [facility] ENDOCRINOLOGY S Preg Ne gative *NA* (01/12/18 4:58 PM) Negative 01/12/2018 [facility] HEMATOLOGY Lymphocytes # 2.4 1.0 - 5.5 01/12/2018 [facility] HEMATOLOGY Monocytes # 0.9 0.0 - 0.8 01/12/2018 [facility] HEMATOLOGY Segs-Bands # 6.6 1.5 - 8.1 01/12/2018 [facility] HEMATOLOGY Eosinophils 5.1 0.0 - 4.0 01/12/2018 [facility] Lymphocytes 22.9 20.0 - 40.0 01/12/2018 [facility] HEMATOLOGY Basophils 0.8 0.0 - 1.0 01/12/2018 [facility] HEMATOLOGY Monocytes 8.8 2.0 - 12.0 01/12/2018 [facility] HEMATOLOGY Segs 62.4 45.0 - 75.0 01/12/2018 [facility] HEMATOLOGY Eosinophils # 0.5 0.0 - 0.5 01/12/2018 [facility] Basophils # 0.1 0.0 - 0.2 01/12/2018 [facility] HEMATOLOGY MPV 9.0 7.4 - 10.4 01/12/2018 [facility] HEMATOLOGY RBC 4.80 4.20 - 5.40 01/12/2018 [facility] HEMATOLOGY WBC 10.6 3.7 - 10.4 01/12/2018 [facility] HEMATOLOGY Hgb 14.2 12.0 - 16.0 01/12/2018 [facility] HEMATOLOGY Platelet 227 133 - 450 01/12/2018 [facility] HEMATOLOGY RDW 12.7 11.5 - 14.5 01/12/2018 [facility] MCHC 33.4 32.0 - 36.0 01/12/2018 [facility] HEMATOLOGY MCV 88.3 80.0 - 98.0 01/12/2018 [facility] HEMATOLOGY Hct 42.4 36.0 - 48.0 01/12/2018 [facility] HEMATOLOGY MCH 29.5 27.0 - 31.0 01/12/2018 [facility] CHEM PANEL eGFR 108 12/31/2016 Result Comment: The eGFR is calculated using the CKD-EPI formula. In most young, healthy individuals the eGFR will be >90 mL/min/1.73m2. The eGFR declines with age. An eGFR of 60-89 may be normal in some populations, particularly the elderly, for whom the CKD-EPI formula has not been extensively validated. Use of the eGFR is not recommended in the following populations:

Individuals with unstable creatinine concentrations, including patients and those with serious co-morbid conditions.

Patients with extremes in muscle mass or diet.

The data above are obtained from the National Kidney Disease Education Program (NKDEP) which additionally recommends that when the eGFR is used in patients with extremes of body mass index for purposes of drug dosing, the eGFR should be multiplied by the estimated BMI. [facility] CHEM PANEL Glucose Lvl 86 70 - 99 12/31/2016 [facility] CHEM PANEL Sodium Lvl 139 135 - 145 12/31/2016 [facility] CHEM PANEL BUN 9 7 - 22 12/31/2016 [facility] CHEM PANEL Creatinine Lvl 0.74 0.50 - 1.40 12/31/2016 [facility] CHEM PANEL Total Protein 7.1 6.4 - 8.4 12/31/2016 [facility] CHEM PANEL CO2 25 24 - 32 12/31/2016 [facility] CHEM PANEL Calcium Lvl 8.7 8.5 - 10.5 12/31/2016 [facility] CHEM PANEL Potassium Lvl 3.8 3.5 - 5.1 12/31/2016 [facility] CHEM PANEL Chloride Lvl 106 95 - 109 12/31/2016 [facility] CHEM PANEL AST 13 0 - 37 12/31/2016 [facility] CHEM PANEL Alk Phos 83 39 - 136 12/31/2016 [facility] CHEM PANEL Albumin Lvl 3.5 3.5 - 5.0 12/31/2016 [facility] CHEM PANEL ALT 22 0 - 65 12/31/2016 [facility] CHEM PANEL Bili Total 0.4 0.2 - 1.3 12/31/2016 [facility] CHEM PANEL B/C Ratio 12 6 - 25 12/31/2016 [facility] CHEM PANEL Globulin 3.6 2.7 - 4.2 12/31/2016 [facility] CHEM PANEL A/G Ratio 1.0 0.7 - 1.6 12/31/2016 [facility] CHEM PANEL AGAP 11.8 10.0 - 20.0 12/31/2016 [facility] CHEM PANEL Lipase Lvl 135 73 - 393 12/31/2016 [facility] ENDOCRINOLOGY S Preg Ne gative *NA* (12/31/16 12:53 AM) Negative 12/31/2016 [facility] HEMATOLOGY Segs 53.9 45.0 - 75.0 12/31/2016 [facility] HEMATOLOGY Eosinophils 4.9 0.0 - 4.0 12/31/2016 [facility] HEMATOLOGY Basophils 1.2 0.0 - 1.0 12/31/2016 [facility] HEMATOLOGY Segs-Bands # 5.0 1.5 - 8.1 12/31/2016 [facility] HEMATOLOGY Lymphocytes 31.8 20.0 - 40.0 12/31/2016 [facility] HEMATOLOGY Monocytes 8.2 2.0 - 12.0 12/31/2016 [facility] HEMATOLOGY Basophils # 0.1 0.0 - 0.2 12/31/2016 [facility] Lymphocytes # 3.0 1.0 - 5.5 12/31/2016 [facility] HEMATOLOGY Monocytes # 0.8 0.0 - 0.8 12/31/2016 [facility] HEMATOLOGY Eosinophils # 0.5 0.0 - 0.5 12/31/2016 [facility] MPV 9.6 7.4 - 10.4 12/31/2016 [facility] MCHC 33.1 32.0 - 36.0 12/31/2016 [facility] RDW 12.4 11.5 - 14.5 12/31/2016 [facility] HEMATOLOGY Platelet 214 133 - 450 12/31/2016 [facility] HEMATOLOGY MCV 89.8 80.0 - 98.0 12/31/2016 [facility] MCH 29.7 27.0 - 31.0 12/31/2016 [facility] HEMATOLOGY Hct 45.3 36.0 - 48.0 12/31/2016 [facility] HEMATOLOGY WBC 9.3 3.7 - 10.4 12/31/2016 [facility] RBC 5.04 4.20 - 5.40 12/31/2016 [facility] Hgb 15.0 12.0 - 16.0 12/31/2016 [facility] URINE AND STOOL UA Mucus Many /LPF None Seen /LPF 12/31/2016 [facility] URINE AND STOOL UA Amorph Miriam Occasional /HPF None Seen /HPF 12/31/2016 [facility] URINE AND STOOL UA RBC 33 0 - 2 12/31/2016 [facility] URINE AND STOOL UA WBC 27 0 - 5 12/31/2016 [facility] URINE AND STOOL UA Bacteria Many /HPF None Seen /HPF 12/31/2016 [facility] URINE AND STOOL UA Sq Epi Many /LPF Few /LPF 12/31/2016 [facility] URINE AND STOOL UA Protein 100 mg/dL Negative mg/dL 12/31/2016 [facility] URINE AND STOOL UA Ketones Trace *ABN* (12/31/16 12:53 AM) Negative 12/31/2016 [facility] URINE AND STOOL UA Blood Large *ABN* (12/31/16 12:53 AM) Negative 12/31/2016 [facility] URINE AND STOOL UA Bili Moderate *ABN* (12/31/16 12:53 AM) Negative 12/31/2016 [facility] URINE AND STOOL UA Color Gina *ABN* (12/31/16 12:53 AM) Yellow 12/31/2016 [facility] URINE AND STOOL UA Nitrite Positive *ABN* (12/31/16 12:53 AM) Negative 12/31/2016 [facility] URINE AND STOOL UA Urobilinogen 2.0 0.1 - 1.0 12/31/2016 [facility] URINE AND STOOL UA Leuk Est Trace *ABN* (12/31/16 12:53 AM) Negative 12/31/2016 [facility] URINE AND STOOL UA Turbidity Cloudy *ABN* (12/31/16 12:53 AM) Clear 12/31/2016 [facility] URINE AND STOOL UA Spec Grav 1.025 <=1.030 12/31/2016 [facility] URINE AND STOOL UA pH 6.5 5.0 - 8.0 12/31/2016 [facility] URINE AND STOOL UA Glucose Negative (12/31/16 12:53 AM) Negative 12/31/2016 [facility] CHEM PANEL Lipase Lvl 156 73 - 393 12/25/2016 [facility] CHEM PANEL eGFR 96 12/25/2016 Result Comment: The eGFR is calculated using the CKD-EPI formula. In most young, healthy individuals the eGFR will be >90 mL/min/1.73m2. The eGFR declines with age. An eGFR of 60-89 may be normal in some populations, particularly the elderly, for whom the CKD-EPI formula has not been extensively validated. Use of the eGFR is not recommended in the following populations:

Individuals with unstable creatinine concentrations, including patients and those with serious co-morbid conditions.

Patients with extremes in muscle mass or diet.

The data above are obtained from the National Kidney Disease Education Program (NKDEP) which additionally recommends that when the eGFR is used in patients with extremes of body mass index for purposes of drug dosing, the eGFR should be multiplied by the estimated BMI. [facility] CHEM PANEL Albumin Lvl 3.9 3.5 - 5.0 12/25/2016 [facility] CHEM PANEL ALT 25 0 - 65 12/25/2016 [facility] CHEM PANEL Bili Total 0.9 0.2 - 1.3 12/25/2016 [facility] CHEM PANEL AST 16 0 - 37 12/25/2016 [facility] CHEM PANEL Alk Phos 94 39 - 136 12/25/2016 [facility] CHEM PANEL Creatinine Lvl 0.82 0.50 - 1.40 12/25/2016 [facility] CHEM PANEL BUN 12 7 - 22 12/25/2016 [facility] CHEM PANEL Chloride Lvl 105 95 - 109 12/25/2016 [facility] CHEM PANEL Sodium Lvl 139 135 - 145 12/25/2016 [facility] CHEM PANEL Potassium Lvl 3.8 3.5 - 5.1 12/25/2016 [facility] CHEM PANEL Total Protein 7.9 6.4 - 8.4 12/25/2016 [facility] CHEM PANEL Calcium Lvl 8.8 8.5 - 10.5 12/25/2016 [facility] CHEM PANEL CO2 24 24 - 32 12/25/2016 [facility] CHEM PANEL Glucose Lvl 82 70 - 99 12/25/2016 [facility] CHEM PANEL AGAP 13.8 10.0 - 20.0 12/25/2016 [facility] CHEM PANEL B/C Ratio 15 6 - 25 12/25/2016 [facility] CHEM PANEL A/G Ratio 1.0 0.7 - 1.6 12/25/2016 [facility] CHEM PANEL Globulin 4.0 2.7 - 4.2 12/25/2016 [facility] HEMATOLOGY PTT 32.0 22.9 - 35.8 12/25/2016 [facility] HEMATOLOGY INR 1.10 0.85 - 1.17 12/25/2016 [facility] HEMATOLOGY PT 14.4 12.0 - 14.7 12/25/2016 [facility] HEMATOLOGY Hgb 15.1 12.0 - 16.0 12/25/2016 [facility] HEMATOLOGY Hct 45.6 36.0 - 48.0 12/25/2016 [facility] HEMATOLOGY MCV 89.9 80.0 - 98.0 12/25/2016 [facility] HEMATOLOGY MCH 29.8 27.0 - 31.0 12/25/2016 [facility] HEMATOLOGY WBC 10.7 3.7 - 10.4 12/25/2016 [facility] HEMATOLOGY RBC 5.08 4.20 - 5.40 12/25/2016 [facility] HEMATOLOGY MCHC 33.2 32.0 - 36.0 12/25/2016 [facility] HEMATOLOGY RDW 12.7 11.5 - 14.5 12/25/2016 [facility] HEMATOLOGY MPV 9.3 7.4 - 10.4 12/25/2016 [facility] HEMATOLOGY Platelet 232 133 - 450 12/25/2016 [facility] HEMATOLOGY Eosinophils 1.9 0.0 - 4.0 12/25/2016 [facility] HEMATOLOGY Basophils 0.7 0.0 - 1.0 12/25/2016 [facility] HEMATOLOGY Monocytes 6.7 2.0 - 12.0 12/25/2016 [facility] HEMATOLOGY Lymphocytes # 2.5 1.0 - 5.5 12/25/2016 [facility] HEMATOLOGY Monocytes # 0.7 0.0 - 0.8 12/25/2016 [facility] HEMATOLOGY Segs-Bands # 7.2 1.5 - 8.1 12/25/2016 [facility] HEMATOLOGY Eosinophils # 0.2 0.0 - 0.5 12/25/2016 [facility] HEMATOLOGY Basophils # 0.1 0.0 - 0.2 12/25/2016 [facility] HEMATOLOGY Segs 67.6 45.0 - 75.0 12/25/2016 [facility] HEMATOLOGY Lymphocytes 23.1 20.0 - 40.0 12/25/2016 [facility] CHEM PANEL Lipase Lvl 165 73 - 393 07/20/2016 [facility] CHEM PANEL A/G Ratio 1.0 0.7 - 1.6 07/20/2016 [facility] CHEM PANEL Globulin 3.9 2.7 - 4.2 07/20/2016 [facility] CHEM PANEL B/C Ratio 10 6 - 25 07/20/2016 [facility] CHEM PANEL AGAP 13.0 10.0 - 20.0 07/20/2016 [facility] CHEM PANEL AST 18 0 - 37 07/20/2016 [facility] CHEM PANEL ALT 24 0 - 65 07/20/2016 [facility] CHEM PANEL eGFR 117 07/20/2016 Result Comment: The eGFR is calculated using the CKD-EPI formula. In most young, healthy individuals the eGFR will be >90 mL/min/1.73m2. The eGFR declines with age. An eGFR of 60-89 may be normal in some populations, particularly the elderly, for whom the CKD-EPI formula has not been extensively validated. Use of the eGFR is not recommended in the following populations:

Individuals with unstable creatinine concentrations, including patients and those with serious co-morbid conditions.

Patients with extremes in muscle mass or diet.

The data above are obtained from the National Kidney Disease Education Program (NKDEP) which additionally recommends that when the eGFR is used in patients with extremes of body mass index for purposes of drug dosing, the eGFR should be multiplied by the estimated BMI. [facility] CHEM PANEL Albumin Lvl 3.9 3.5 - 5.0 07/20/2016 [facility] CHEM PANEL Total Protein 7.8 6.4 - 8.4 07/20/2016 [facility] CHEM PANEL Calcium Lvl 8.7 8.5 - 10.5 07/20/2016 [facility] CHEM PANEL Bili Total 0.3 0.2 - 1.3 07/20/2016 [facility] CHEM PANEL Alk Phos 79 39 - 136 07/20/2016 [facility] CHEM PANEL Creatinine Lvl 0.70 0.50 - 1.40 07/20/2016 [facility] CHEM PANEL BUN 7 7 - 22 07/20/2016 [facility] CHEM PANEL CO2 28 24 - 32 07/20/2016 [facility] CHEM PANEL Chloride Lvl 104 95 - 109 07/20/2016 [facility] CHEM PANEL Potassium Lvl 4.0 3.5 - 5.1 07/20/2016 [facility] CHEM PANEL Sodium Lvl 141 135 - 145 07/20/2016 [facility] CHEM PANEL Glucose Lvl 84 70 - 99 07/20/2016 [facility] HEMATOLOGY RDW 12.6 11.5 - 14.5 07/20/2016 [facility] HEMATOLOGY Platelet 238 133 - 450 07/20/2016 [facility] HEMATOLOGY Hgb 15.3 12.0 - 16.0 07/20/2016 [facility] HEMATOLOGY RBC 5.08 4.20 - 5.40 07/20/2016 [facility] HEMATOLOGY WBC 10.8 3.7 - 10.4 07/20/2016 [facility] HEMATOLOGY MPV 8.9 7.4 - 10.4 07/20/2016 [facility] HEMATOLOGY MCV 88.5 80.0 - 98.0 07/20/2016 [facility] HEMATOLOGY Hct 44.9 36.0 - 48.0 07/20/2016 [facility] HEMATOLOGY MCH 30.1 27.0 - 31.0 07/20/2016 [facility] HEMATOLOGY MCHC 34.0 32.0 - 36.0 07/20/2016 [facility] HEMATOLOGY Eosinophils # 0.6 0.0 - 0.5 07/20/2016 [facility] HEMATOLOGY Basophils # 0.1 0.0 - 0.2 07/20/2016 [facility] HEMATOLOGY Lymphocytes # 2.6 1.0 - 5.5 07/20/2016 [facility] HEMATOLOGY Monocytes # 0.5 0.0 - 0.8 07/20/2016 [facility] HEMATOLOGY Segs-Bands # 7.0 1.5 - 8.1 07/20/2016 [facility] HEMATOLOGY Eosinophils 5.6 0.0 - 4.0 07/20/2016 [facility] HEMATOLOGY Basophils 0.9 0.0 - 1.0 07/20/2016 [facility] HEMATOLOGY Monocytes 4.6 2.0 - 12.0 07/20/2016 [facility] HEMATOLOGY Segs 65.0 45.0 - 75.0 07/20/2016 [facility] HEMATOLOGY Lymphocytes 23.9 20.0 - 40.0 07/20/2016 [facility] URINE AND STOOL UA Urobilinogen <=1.0 mg/dL 0.1 - 1.0 07/20/2016 [facility] URINE AND STOOL UA Color Colorless 07/20/2016 [facility] URINE AND STOOL UA pH 8.0 5.0 - 8.0 07/20/2016 [facility] URINE AND STOOL UA Protein Negative mg/dL Negative mg/dL 07/20/2016 [facility] URINE AND STOOL UA Turbidity Clear (07/19/16 7:59 PM) Clear 07/20/2016 [facility] URINE AND STOOL UA Spec Grav 1.005 <=1.030 07/20/2016 [facility] URINE AND STOOL UA Nitrite Negative (07/19/16 7:59 PM) Negative 07/20/2016 [facility] URINE AND STOOL UA Glucose Negative mg/dL Negative mg/dL 07/20/2016 [facility] URINE AND STOOL UA Sq Epi Occasional /LPF Few /LPF 07/20/2016 [facility] URINE AND STOOL UA Blood Small *ABN* (07/19/16 7:59 PM) Negative 07/20/2016 [facility] URINE AND STOOL UA Leuk Est Negative (07/19/16 7:59 PM) Negative 07/20/2016 [facility] URINE AND STOOL UA Bili Negative *NA* (07/19/16 7:59 PM) Negative 07/20/2016 [facility] URINE AND STOOL UA Bacteria Occasional /HPF None Seen /HPF 07/20/2016 [facility] URINE AND STOOL UA Ketones Negative mg/dL Negative mg/dL 07/20/2016 [facility] URINE AND STOOL UA WBC <1 0 - 5 07/20/2016 [facility] URINE AND STOOL UA RBC 1 0 - 2 07/20/2016 [facility] URINE CHEM U Preg Negat theron (07/19/16 7:59 PM) Negative 07/20/2016 [facility] CHEM PANEL Creatinine Lvl 0.66 0.50 - 1.40 04/14/2016 [facility] CHEM PANEL Potassium Lvl 3.7 3.5 - 5.1 04/14/2016 [facility] CHEM PANEL Sodium Lvl 138 135 - 145 04/14/2016 [facility] CHEM PANEL Glucose Lvl 87 70 - 99 04/14/2016 [facility] CHEM PANEL BUN 13 7 - 22 04/14/2016 [facility] CHEM PANEL Chloride Lvl 107 95 - 109 04/14/2016 [facility] CHEM PANEL ALT 22 0 - 65 04/14/2016 [facility] CHEM PANEL Albumin Lvl 3.8 3.5 - 5.0 04/14/2016 [facility] CHEM PANEL CO2 26 24 - 32 04/14/2016 [facility] CHEM PANEL eGFR 119 04/14/2016 Result Comment: The eGFR is calculated using the CKD-EPI formula. In most young, healthy individuals the eGFR will be >90 mL/min/1.73m2. The eGFR declines with age. An eGFR of 60-89 may be normal in some populations, particularly the elderly, for whom the CKD-EPI formula has not been extensively validated. Use of the eGFR is not recommended in the following populations:

Individuals with unstable creatinine concentrations, including patients and those with serious co-morbid conditions.

Patients with extremes in muscle mass or diet.

The data above are obtained from the National Kidney Disease Education Program (NKDEP) which additionally recommends that when the eGFR is used in patients with extremes of body mass index for purposes of drug dosing, the eGFR should be multiplied by the estimated BMI. [facility] CHEM PANEL Bili Total 0.3 0.2 - 1.3 04/14/2016 [facility] CHEM PANEL Alk Phos 72 39 - 136 04/14/2016 [facility] CHEM PANEL AST 13 0 - 37 04/14/2016 [facility] CHEM PANEL Total Protein 7.4 6.4 - 8.4 04/14/2016 [facility] CHEM PANEL Calcium Lvl 8.3 8.5 - 10.5 04/14/2016 [facility] CHEM PANEL Globulin 3.6 2.7 - 4.2 04/14/2016 [facility] CHEM PANEL A/G Ratio 1.1 0.7 - 1.6 04/14/2016 [facility] CHEM PANEL B/C Ratio 20 6 - 25 04/14/2016 [facility] CHEM PANEL AGAP 8.7 10.0 - 20.0 04/14/2016 [facility] CHEM PANEL Lipase Lvl 166 73 - 393 04/14/2016 [facility] CHEM PANEL Amylase Lvl 45 25 - 115 04/14/2016 [facility] MCH 29.2 27.0 - 31.0 04/14/2016 [facility] HEMATOLOGY MCV 87.0 80.0 - 98.0 04/14/2016 [facility] HEMATOLOGY Hct 40.7 36.0 - 48.0 04/14/2016 [facility] Hgb 13.6 12.0 - 16.0 04/14/2016 [facility] RBC 4.67 4.20 - 5.40 04/14/2016 [facility] HEMATOLOGY MPV 8.6 7.4 - 10.4 04/14/2016 [facility] Platelet 207 133 - 450 04/14/2016 [facility] MCHC 33.6 32.0 - 36.0 04/14/2016 [facility] RDW 13.0 11.5 - 14.5 04/14/2016 [facility] WBC 11.2 3.7 - 10.4 04/14/2016 [facility] Monocytes # 0.9 0.0 - 0.8 04/14/2016 [facility] Lymphocytes # 3.3 1.0 - 5.5 04/14/2016 [facility] HEMATOLOGY Segs-Bands # 6.3 1.5 - 8.1 04/14/2016 [facility] HEMATOLOGY Basophils 0.8 0.0 - 1.0 04/14/2016 [facility] HEMATOLOGY Eosinophils 5.9 0.0 - 4.0 04/14/2016 [facility] HEMATOLOGY Monocytes 8.2 2.0 - 12.0 04/14/2016 [facility] HEMATOLOGY Lymphocytes 29.1 20.0 - 40.0 04/14/2016 [facility] HEMATOLOGY Segs 56.0 45.0 - 75.0 04/14/2016 [facility] HEMATOLOGY Basophils # 0.1 0.0 - 0.2 04/14/2016 [facility] HEMATOLOGY Eosinophils # 0.7 0.0 - 0.5 04/14/2016 [facility] URINE AND STOOL UA Blood Large *ABN* (04/14/16 1:13 AM) Negative 04/14/2016 [facility] URINE AND STOOL UA Bili Negative *NA* (04/14/16 1:13 AM) Negative 04/14/2016 [facility] URINE AND STOOL UA pH 5.0 5.0 - 8.0 04/14/2016 [facility] URINE AND STOOL UA Spec Grav 1.020 <=1.030 04/14/2016 [facility] URINE AND STOOL UA Turbidity Slight *ABN* (04/14/16 1:13 AM) Clear 04/14/2016 [facility] URINE AND STOOL UA Protein Negative mg/dL Negative mg/dL 04/14/2016 [facility] URINE AND STOOL UA Nitrite Negative (04/14/16 1:13 AM) Negative 04/14/2016 [facility] URINE AND STOOL UA WBC 7 0 - 5 04/14/2016 [facility] URINE AND STOOL UA Sq Epi Many /LPF Few /LPF 04/14/2016 [facility] URINE AND STOOL UA RBC 3 0 - 2 04/14/2016 [facility] URINE AND STOOL UA Leuk Est Trace *ABN* (04/14/16 1:13 AM) Negative 04/14/2016 [facility] URINE AND STOOL UA Ketones Negative mg/dL Negative mg/dL 04/14/2016 [facility] URINE AND STOOL UA Glucose Negative mg/dL Negative mg/dL 04/14/2016 [facility] URINE AND STOOL UA Bacteria Many /HPF None Seen /HPF 04/14/2016 [facility] URINE AND STOOL UA Mucus Few /LPF None Seen /LPF 04/14/2016 [facility] URINE AND STOOL UA Urobilinogen <=1.0 mg/dL 0.1 - 1.0 04/14/2016 [facility] URINE AND STOOL UA Color Yellow *NA* (04/14/16 1:13 AM) Yellow 04/14/2016 [facility] URINE CHEM U Preg Negat theron (04/14/16 1:13 AM) Negative 04/14/2016 [facility] URINE AND STOOL UA Color Gina 02/24/2016 [facility] URINE AND STOOL UA WBC 7 0 - 5 02/24/2016 [facility] URINE AND STOOL UA Bili Negative *NA* (02/24/16 12:51 AM) Negative 02/24/2016 [facility] URINE AND STOOL UA Leuk Est Trace *ABN* (02/24/16 12:51 AM) Negative 02/24/2016 [facility] URINE AND STOOL UA Sq Epi Moderate /LPF Few /LPF 02/24/2016 [facility] URINE AND STOOL UA Urobilinogen 2.0 0.1 - 1.0 02/24/2016 [facility] URINE AND STOOL UA Nitrite Negative (02/24/16 12:51 AM) Negative 02/24/2016 [facility] URINE AND STOOL UA Blood Small *ABN* (02/24/16 12:51 AM) Negative 02/24/2016 [facility] URINE AND STOOL UA Mucus Many /LPF None Seen /LPF 02/24/2016 [facility] URINE AND STOOL UA RBC 8 0 - 2 02/24/2016 [facility] URINE AND STOOL UA Bacteria Occasional /HPF None Seen /HPF 02/24/2016 [facility] URINE AND STOOL UA Turbidity Clear (02/24/16 12:51 AM) Clear 02/24/2016 [facility] URINE AND STOOL UA Spec Grav 1.027 <=1.030 02/24/2016 [facility] URINE AND STOOL UA Glucose Negative mg/dL Negative mg/dL 02/24/2016 [facility] URINE AND STOOL UA Ketones Trace mg/dL Negative mg/dL 02/24/2016 [facility] URINE AND STOOL UA pH 7.0 5.0 - 8.0 02/24/2016 [facility] URINE AND STOOL UA Protein 30 mg/dL Negative mg/dL 02/24/2016 [facility] URINE CHEM U Preg Negat theron (02/24/16 12:51 AM) Negative 02/24/2016 [facility] CHEM PANEL Alk Phos 81 39 - 136 02/24/2016 [facility] CHEM PANEL AST 32 0 - 37 02/24/2016 [facility] CHEM PANEL ALT 24 0 - 65 02/24/2016 [facility] CHEM PANEL eGFR 110 02/24/2016 Result Comment: The eGFR is calculated using the CKD-EPI formula. In most young, healthy individuals the eGFR will be >90 mL/min/1.73m2. The eGFR declines with age. An eGFR of 60-89 may be normal in some populations, particularly the elderly, for whom the CKD-EPI formula has not been extensively validated. Use of the eGFR is not recommended in the following populations:

Individuals with unstable creatinine concentrations, including patients and those with serious co-morbid conditions.

Patients with extremes in muscle mass or diet.

The data above are obtained from the National Kidney Disease Education Program (NKDEP) which additionally recommends that when the eGFR is used in patients with extremes of body mass index for purposes of drug dosing, the eGFR should be multiplied by the estimated BMI. [facility] CHEM PANEL Bili Total 0.6 0.2 - 1.3 02/24/2016 [facility] CHEM PANEL Creatinine Lvl 0.74 0.50 - 1.40 02/24/2016 [facility] CHEM PANEL BUN 10 7 - 22 02/24/2016 [facility] CHEM PANEL Glucose Lvl 87 70 - 99 02/24/2016 [facility] CHEM PANEL Potassium Lvl See N o[place] 1 (02/23/16 11:28 PM) 3.5 - 5.1 02/24/2016 Result Comment: The Potassium result of 4.5 should be interpreted with caution due to : 1+ hemolysis Report called to Zana Schmitt at 02/23/2016 23:57 by slb. Recollection is recommended. Read Back Ok. [facility] CHEM PANEL Sodium Lvl 138 135 - 145 02/24/2016 [facility] CHEM PANEL Calcium Lvl 8.8 8.5 - 10.5 02/24/2016 [facility] CHEM PANEL CO2 26 24 - 32 02/24/2016 [facility] CHEM PANEL Chloride Lvl 104 95 - 109 02/24/2016 [facility] CHEM PANEL B/C Ratio 14 6 - 25 02/24/2016 [facility] CHEM PANEL Total Protein 8.0 6.4 - 8.4 02/24/2016 [facility] CHEM PANEL A/G Ratio 0.9 0.7 - 1.6 02/24/2016 [facility] CHEM PANEL Globulin 4.2 2.0 - 4.0 02/24/2016 [facility] CHEM PANEL Albumin Lvl 3.8 3.5 - 5.0 02/24/2016 [facility] CHEM PANEL Lipase Lvl 127 73 - 393 02/24/2016 [facility] CHEM PANEL Amylase Lvl 45 25 - 115 02/24/2016 [facility] HEMATOLOGY Hct 44.3 36.0 - 48.0 02/24/2016 [facility] HEMATOLOGY Hgb 14.4 12.0 - 16.0 02/24/2016 [facility] HEMATOLOGY RBC 4.96 4.20 - 5.40 02/24/2016 [facility] HEMATOLOGY WBC 12.3 3.7 - 10.4 02/24/2016 [facility] HEMATOLOGY MCV 89.3 80.0 - 98.0 02/24/2016 [facility] HEMATOLOGY Platelet 209 133 - 450 02/24/2016 [facility] HEMATOLOGY RDW 13.1 11.5 - 14.5 02/24/2016 [facility] HEMATOLOGY MCHC 32.4 32.0 - 36.0 02/24/2016 [facility] MCH 29.0 27.0 - 31.0 02/24/2016 [facility] HEMATOLOGY MPV 8.7 7.4 - 10.4 02/24/2016 [facility] HEMATOLOGY Segs 62.1 45.0 - 75.0 02/24/2016 [facility] HEMATOLOGY Basophils 0.8 0.0 - 1.0 02/24/2016 [facility] HEMATOLOGY Eosinophils 4.6 0.0 - 4.0 02/24/2016 [facility] HEMATOLOGY Monocytes 7.6 2.0 - 12.0 02/24/2016 [facility] HEMATOLOGY Lymphocytes 24.9 20.0 - 40.0 02/24/2016 [facility] HEMATOLOGY Segs-Bands # 7.7 1.5 - 8.1 02/24/2016 [facility] HEMATOLOGY Eosinophils # 0.6 0.0 - 0.5 02/24/2016 [facility] HEMATOLOGY Lymphocytes # 3.1 1.0 - 5.5 02/24/2016 [facility] HEMATOLOGY Basophils # 0.1 0.0 - 0.2 02/24/2016 [facility] HEMATOLOGY Monocytes # 0.9 0.0 - 0.8 02/24/2016 [facility] CHEM PANEL Lipase Lvl 126 73 - 393 01/17/2016 [facility] CHEM PANEL Globulin 4.1 2.0 - 4.0 01/17/2016 [facility] CHEM PANEL A/G Ratio 0.9 0.7 - 1.6 01/17/2016 [facility] CHEM PANEL AGAP 11.0 10.0 - 20.0 01/17/2016 [facility] CHEM PANEL B/C Ratio 11 6 - 25 01/17/2016 [facility] CHEM PANEL eGFR 119 01/17/2016 Result Comment: The eGFR is calculated using the CKD-EPI formula. In most young, healthy individuals the eGFR will be >90 mL/min/1.73m2. The eGFR declines with age. An eGFR of 60-89 may be normal in some populations, particularly the elderly, for whom the CKD-EPI formula has not been extensively validated. Use of the eGFR is not recommended in the following populations:

Individuals with unstable creatinine concentrations, including patients and those with serious co-morbid conditions.

Patients with extremes in muscle mass or diet.

The data above are obtained from the National Kidney Disease Education Program (NKDEP) which additionally recommends that when the eGFR is used in patients with extremes of body mass index for purposes of drug dosing, the eGFR should be multiplied by the estimated BMI. [facility] CHEM PANEL Total Protein 7.9 6.4 - 8.4 [facility]/17[facility] ASPARTATE TRANSAMINASE 16 0 - 37 01/17/2016 [facility] CHEM PANEL Bili Total 0.4 0.2 - 1.3 01/17/2016 [facility] CHEM PANEL Potassium Lvl 4.0 3.5 - 5.1 01/17/2016 [facility] CHEM PANEL CO2 27 24 - 32 01/17/2016 [facility] CHEM PANEL Chloride Lvl 105 95 - 109 01/17/2016 [facility] CHEM PANEL Calcium Lvl 8.5 8.5 - 10.5 01/17/2016 [facility] CHEM PANEL Sodium Lvl 139 135 - 145 01/17/2016 [facility] CHEM PANEL Glucose Lvl 84 70 - 99 01/17/2016 [facility] CHEM PANEL Alk Phos 88 39 - 136 01/17/2016 [facility] CHEM PANEL Creatinine Lvl 0.66 0.50 - 1.40 01/17/2016 [facility] CHEM PANEL BUN 7 7 - 22 01/17/2016 [facility] CHEM PANEL Albumin Lvl 3.8 3.5 - 5.0 01/17/2016 [facility] CHEM PANEL ALANINE AMINOTRANSFERASE 27 0 - 65 01/17/2016 [facility] HEMATOLOGY Segs-Bands # 6.4 1.5 - 8.1 01/17/2016 [facility] HEMATOLOGY Lymphocytes # 2.4 1.0 - 5.5 01/17/2016 [facility] HEMATOLOGY Monocytes # 0.6 0.0 - 0.8 01/17/2016 [facility] HEMATOLOGY Eosinophils # 0.4 0.0 - 0.5 01/17/2016 [facility] HEMATOLOGY Basophils # 0.1 0.0 - 0.2 01/17/2016 [facility] HEMATOLOGY Monocytes 6.3 2.0 - 12.0 01/17/2016 [facility] HEMATOLOGY Eosinophils 4.5 0.0 - 4.0 01/17/2016 [facility] HEMATOLOGY Basophils 0.9 0.0 - 1.0 01/17/2016 [facility] HEMATOLOGY Lymphocytes 24.2 20.0 - 40.0 01/17/2016 [facility] HEMATOLOGY Segs 64.1 45.0 - 75.0 01/17/2016 [facility] HEMATOLOGY MPV 8.4 7.4 - 10.4 01/17/2016 [facility] MCV 89.2 80.0 - 98.0 01/17/2016 [facility] HEMATOLOGY MCH 29.7 27.0 - 31.0 01/17/2016 [facility] MCHC 33.3 32.0 - 36.0 01/17/2016 [facility] HEMATOLOGY RDW 13.2 11.5 - 14.5 01/17/2016 [facility] HEMATOLOGY Hgb 14.9 12.0 - 16.0 01/17/2016 [facility] HEMATOLOGY Hct 44.7 36.0 - 48.0 01/17/2016 [facility] HEMATOLOGY RBC X 10x6 5.01 4.20 - 5.40 01/17/2016 [facility] HEMATOLOGY Platelet 236 133 - 450 01/17/2016 [facility] HEMATOLOGY WBC X 10x3 10.0 3.7 - 10.4 01/17/2016 [facility] URINE AND STOOL UA WBC 3-5 /HPF None Seen /HPF 01/17/2016 [facility] URINE AND STOOL UA Nitrite Negative (01/16/16 9:15 PM) Negative 01/17/2016 [facility] URINE AND STOOL UA Sq Epi Occasional /LPF Few /LPF 01/17/2016 [facility] URINE AND STOOL UA Leuk Est Negative (01/16/16 9:15 PM) Negative 01/17/2016 [facility] URINE AND STOOL UA Spec Grav 1.015 <=1.030 01/17/2016 [facility] URINE AND STOOL UA pH 7.5 5.0 - 8.0 01/17/2016 [facility] URINE AND STOOL UA Protein Negative (01/16/16 9:15 PM) Negative [facility]/2016 [facility] UA Turbidity Clear (01/16/16 9:15 PM) Clear 01/17/2016 [facility] URINE AND STOOL UA Color Yellow *NA* (01/16/16 9:15 PM) Yellow 01/17/2016 [facility] URINE AND STOOL UA Urobilinogen 0.2 0.1 - 1.0 01/17/2016 [facility] URINE AND STOOL UA Glucose Negative (01/16/16 9:15 PM) Negative 01/17/2016 [facility] URINE AND STOOL UA Blood Large *ABN* (01/16/16 9:15 PM) Negative 01/17/2016 [facility] URINE AND STOOL UA Ketones Negative *NA* (01/16/16 9:15 PM) Negative 01/17/2016 [facility] URINE AND STOOL UA Bili Negative *NA* (01/16/16 9:15 PM) Negative 01/17/2016 [facility] URINE AND STOOL UA RBC 6-10 /HPF 0 - 2 01/17/2016 [facility] URINE AND STOOL UA Bacteria Occasional /HPF None Seen /HPF [facility] Preg Negat theron (01/16/16 9:15 PM) Negative 01/17/2016 [facility] URINE AND STOOL UA Urobilinogen <=1.0 mg/dL 0.1 - 1.0 10/13/2015 [facility] URINE AND STOOL UA Color Gina 10/13/2015 [facility] URINE AND STOOL UA Turbidity Slight *ABN* (10/13/15 3:42 AM) Clear 10/13/2015 [facility] URINE AND STOOL UA Spec Grav 1.026 <=1.030 10/13/2015 [facility] URINE AND STOOL UA pH 6.0 5.0 - 8.0 10/13/2015 [facility] URINE AND STOOL UA RBC 7 0 - 2 10/13/2015 [facility] URINE AND STOOL UA WBC 6 0 - 5 10/13/2015 [facility] URINE AND STOOL UA Sq Epi Few /LPF Few /LPF 10/13/2015 [facility] URINE AND STOOL UA Leuk Est Negative (10/13/15 3:42 AM) Negative 10/13/2015 [facility] URINE AND STOOL UA Nitrite Negative (10/13/15 3:42 AM) Negative 10/13/2015 [facility] URINE AND STOOL UA Mucus Moderate /LPF None Seen /LPF 10/13/2015 [facility] URINE AND STOOL UA Bacteria Occasional /HPF None Seen /HPF 10/13/2015 [facility] URINE AND STOOL UA Blood Large *ABN* (10/13/15 3:42 AM) Negative 10/13/2015 [facility] URINE AND STOOL UA Bili Negative *NA* (10/13/15 3:42 AM) Negative 10/13/2015 [facility] URINE AND STOOL UA Ketones Trace mg/dL Negative mg/dL 10/13/2015 [facility] URINE AND STOOL UA Glucose Negative mg/dL Negative mg/dL 10/13/2015 [facility] URINE AND STOOL UA Protein 100 mg/dL Negative mg/dL 10/13/2015 [facility] URINE CHEM U Preg Negat theron (10/13/15 3:42 AM) Negative 10/13/2015 [facility] CHEM PANEL Globulin 3.9 2.0 - 4.0 10/13/2015 [facility] CHEM PANEL A/G Ratio 1.0 0.7 - 1.6 10/13/2015 [facility] CHEM PANEL B/C Ratio 13 6 - 25 10/13/2015 [facility] CHEM PANEL AGAP 9.5 10.0 - 20.0 10/13/2015 [facility] CHEM PANEL eGFR 117 10/13/2015 Result Comment: The eGFR is calculated using the CKD-EPI formula. In most young, healthy individuals the eGFR will be >90 mL/min/1.73m2. The eGFR declines with age. An eGFR of 60-89 may be normal in some populations, particularly the elderly, for whom the CKD-EPI formula has not been extensively validated. Use of the eGFR is not recommended in the following populations:

Individuals with unstable creatinine concentrations, including patients and those with serious co-morbid conditions.

Patients with extremes in muscle mass or diet.

The data above are obtained from the National Kidney Disease Education Program (NKDEP) which additionally recommends that when the eGFR is used in patients with extremes of body mass index for purposes of drug dosing, the eGFR should be multiplied by the estimated BMI. [facility] CHEM PANEL Bili Total 0.7 0.2 - 1.3 10/13/2015 [facility] CHEM PANEL Alk Phos 79 39 - 136 10/13/2015 [facility] CHEM PANEL AST 23 0 - 37 10/13/2015 [facility] CHEM PANEL ALT 35 0 - 65 10/13/2015 [facility] CHEM PANEL Albumin Lvl 3.8 3.5 - 5.0 10/13/2015 [facility] CHEM PANEL Total Protein 7.7 6.4 - 8.4 10/13/2015 [facility] CHEM PANEL Calcium Lvl 8.8 8.5 - 10.5 10/13/2015 [facility] CHEM PANEL CO2 28 24 - 32 10/13/2015 [facility] CHEM PANEL Chloride Lvl 106 95 - 109 10/13/2015 [facility] CHEM PANEL Potassium Lvl 3.5 3.5 - 5.1 10/13/2015 [facility] CHEM PANEL Creatinine Lvl 0.70 0.50 - 1.40 10/13/2015 [facility] CHEM PANEL BUN 9 7 - 22 10/13/2015 [facility] CHEM PANEL Glucose Lvl 94 70 - 99 10/13/2015 [facility] CHEM PANEL Sodium Lvl 140 135 - 145 10/13/2015 [facility] CHEM PANEL Amylase Lvl 50 25 - 115 10/13/2015 [facility] CHEM PANEL Lipase Lvl 148 73 - 393 10/13/2015 [facility] HEMATOLOGY Platelet 201 133 - 450 10/13/2015 [facility] HEMATOLOGY MPV 9.7 7.4 - 10.4 10/13/2015 [facility] HEMATOLOGY MCHC 33.4 32.0 - 36.0 10/13/2015 [facility] HEMATOLOGY RDW 12.5 11.5 - 14.5 10/13/2015 [facility] HEMATOLOGY WBC 9.9 3.7 - 10.4 10/13/2015 [facility] RBC 5.04 4.20 - 5.40 10/13/2015 [facility] Hgb 15.1 12.0 - 16.0 10/13/2015 [facility] HEMATOLOGY MCH 29.9 27.0 - 31.0 10/13/2015 [facility] HEMATOLOGY Hct 45.2 36.0 - 48.0 10/13/2015 [facility] HEMATOLOGY MCV 89.7 80.0 - 98.0 10/13/2015 [facility] HEMATOLOGY Eosinophils # 0.6 0.0 - 0.5 10/13/2015 [facility] HEMATOLOGY Basophils # 0.1 0.0 - 0.2 10/13/2015 [facility] HEMATOLOGY Lymphocytes # 3.2 1.0 - 5.5 10/13/2015 [facility] HEMATOLOGY Monocytes # 0.8 0.0 - 0.8 10/13/2015 [facility] HEMATOLOGY Segs-Bands # 5.1 1.5 - 8.1 10/13/2015 [facility] HEMATOLOGY Basophils 1.0 0.0 - 1.0 10/13/2015 [facility] HEMATOLOGY Monocytes 8.5 2.0 - 12.0 10/13/2015 [facility] HEMATOLOGY Eosinophils 6.2 0.0 - 4.0 10/13/2015 [facility] HEMATOLOGY Segs 51.7 45.0 - 75.0 10/13/2015 [facility] HEMATOLOGY Lymphocytes 32.6 20.0 - 40.0 10/13/2015 [facility] ELECTROLYTES Potassium Lvl 3.6 3.5 - 5.1 07/04/2015 [facility] CHEM PANEL eGFR 110 07/04/2015 Result Comment: The eGFR is calculated using the CKD-EPI formula. In most young, healthy individuals the eGFR will be >90 mL/min/1.73m2. The eGFR declines with age. An eGFR of 60-89 may be normal in some populations, particularly the elderly, for whom the CKD-EPI formula has not been extensively validated. Use of the eGFR is not recommended in the following populations:

Individuals with unstable creatinine concentrations, including patients and those with serious co-morbid conditions.

Patients with extremes in muscle mass or diet.

The data above are obtained from the National Kidney Disease Education Program (NKDEP) which additionally recommends that when the eGFR is used in patients with extremes of body mass index for purposes of drug dosing, the eGFR should be multiplied by the estimated BMI. [facility] CHEM PANEL AST 57 0 - 37 07/04/2015 [facility] CHEM PANEL ALT 34 0 - 65 07/04/2015 [facility] CHEM PANEL A/G Ratio 0.8 0.7 - 1.6 07/04/2015 [facility] CHEM PANEL Globulin 4.2 2.0 - 4.0 07/04/2015 [facility] CHEM PANEL Bili Total 0.7 0.2 - 1.3 07/04/2015 [facility] CHEM PANEL Alk Phos 80 39 - 136 07/04/2015 [facility] CHEM PANEL Chloride Lvl 105 95 - 109 07/04/2015 [facility] CHEM PANEL Sodium Lvl 134 135 - 145 07/04/2015 [facility] CHEM PANEL Potassium Lvl See [place] 1 (07/04/15 1:16 AM) 3.5 - 5.1 07/04/2015 Result Comment: The potassium result of 6.3_ should be interpreted with caution due to : hemolysis_ Report called to uriel apron_ by [email or web address] 07/04/2015 02:02_. Recollection is recommended. Read Back Ok. [facility] CHEM PANEL BUN 11 7 - 22 07/04/2015 [facility] CHEM PANEL Creatinine Lvl 0.74 0.50 - 1.40 07/04/2015 [facility] CHEM PANEL Glucose Lvl 85 70 - 99 07/04/2015 [facility] CHEM PANEL Total Protein 7.7 6.4 - 8.4 07/04/2015 [facility] CHEM PANEL Albumin Lvl 3.5 3.5 - 5.0 07/04/2015 [facility] CHEM PANEL B/C Ratio 15 6 - 25 07/04/2015 [facility] CHEM PANEL Calcium Lvl 8.7 8.5 - 10.5 07/04/2015 [facility] CHEM PANEL CO2 24 24 - 32 07/04/2015 [facility] CHEM PANEL Lipase Lvl 138 73 - 393 07/04/2015 [facility] HEMATOLOGY Basophils # 0.1 0.0 - 0.2 07/04/2015 [facility] HEMATOLOGY Eosinophils # 0.7 0.0 - 0.5 07/04/2015 [facility] HEMATOLOGY Lymphocytes # 2.7 1.0 - 5.5 07/04/2015 [facility] HEMATOLOGY Segs-Bands # 7.5 1.5 - 8.1 07/04/2015 [facility] HEMATOLOGY Basophils 1.0 0.0 - 1.0 07/04/2015 [facility] HEMATOLOGY Eosinophils 5.5 0.0 - 4.0 07/04/2015 [facility] HEMATOLOGY Monocytes # 1.0 0.0 - 0.8 07/04/2015 [facility] HEMATOLOGY Monocytes 8.3 2.0 - 12.0 07/04/2015 [facility] HEMATOLOGY Lymphocytes 22.4 20.0 - 40.0 07/04/2015 [facility] HEMATOLOGY Segs 62.8 45.0 - 75.0 07/04/2015 [facility] HEMATOLOGY MCH 29.5 27.0 - 31.0 07/04/2015 [facility] HEMATOLOGY MPV 9.4 7.4 - 10.4 07/04/2015 [facility] HEMATOLOGY Platelet 191 133 - 450 07/04/2015 [facility] HEMATOLOGY RDW 12.7 11.5 - 14.5 07/04/2015 [facility] MCHC 32.5 32.0 - 36.0 07/04/2015 [facility] HEMATOLOGY MCV 90.7 80.0 - 98.0 07/04/2015 [facility] HEMATOLOGY Hct 43.1 36.0 - 48.0 07/04/2015 [facility] HEMATOLOGY Hgb 14.0 12.0 - 16.0 07/04/2015 [facility] RBC 4.76 4.20 - 5.40 07/04/2015 [facility] HEMATOLOGY WBC 12.0 3.7 - 10.4 07/04/2015 [facility] URINE AND STOOL UA WBC 1 0 - 5 07/04/2015 [facility] URINE AND STOOL UA Leuk Est Negative (07/04/15 1:16 AM) Negative 07/04/2015 [facility] URINE AND STOOL UA Sq Epi Few /LPF Few /LPF 07/04/2015 [facility] URINE AND STOOL UA Blood Small *ABN* (07/04/15 1:16 AM) Negative 07/04/2015 [facility] URINE AND STOOL UA Nitrite Negative (07/04/15 1:16 AM) Negative 07/04/2015 [facility] URINE AND STOOL UA [place] Yeast Occasional /HPF None Seen /HPF 07/04/2015 [facility] URINE AND STOOL UA Urobilinogen <=1.0 mg/dL 0.1 - 1.0 07/04/2015 [facility] URINE AND STOOL UA RBC 4 0 - 2 07/04/2015 [facility] URINE AND STOOL UA Mucus Few /LPF None Seen /LPF 07/04/2015 [facility] URINE AND STOOL UA Glucose Negative mg/dL Negative mg/dL 07/04/2015 [facility] URINE AND STOOL UA Protein Negative mg/dL Negative mg/dL 07/04/2015 [facility] URINE AND STOOL UA pH 7.0 5.0 - 8.0 07/04/2015 [facility] URINE AND STOOL UA Bili Negative *NA* (07/04/15 1:16 AM) Negative 07/04/2015 [facility] URINE AND STOOL UA Ketones Trace mg/dL Negative mg/dL 07/04/2015 [facility] URINE AND STOOL UA Color Yellow *NA* (07/04/15 1:16 AM) Yellow 07/04/2015 [facility] URINE AND STOOL UA Spec Grav 1.027 <=1.030 07/04/2015 [facility] URINE AND STOOL UA Turbidity Marked *ABN* (07/04/15 1:16 AM) Clear 07/04/2015 [facility] URINE CHEM U Preg Negat theron (07/04/15 1:16 AM) Negative 07/04/2015 [facility] URINE AND STOOL UA RBC 2 0 - 2 05/17/2015 [facility] URINE AND STOOL UA Sq Epi Occasional /LPF Few /LPF 05/17/2015 [facility] URINE AND STOOL UA Leuk Est Negative (05/17/15 2:36 AM) Negative 05/17/2015 [facility] URINE AND STOOL UA WBC <1 0 - 5 05/17/2015 [facility] URINE AND STOOL UA Nitrite Negative (05/17/15 2:36 AM) Negative 05/17/2015 [facility] URINE AND STOOL UA Blood Small *ABN* (05/17/15 2:36 AM) Negative 05/17/2015 [facility] URINE AND STOOL UA Urobilinogen <=1.0 mg/dL 0.1 - 1.0 05/17/2015 [facility] URINE AND STOOL UA Bili Negative *NA* (05/17/15 2:36 AM) Negative 05/17/2015 [facility] URINE AND STOOL UA Glucose Negative mg/dL Negative mg/dL 05/17/2015 [facility] URINE AND STOOL UA Ketones Negative mg/dL Negative mg/dL 05/17/2015 [facility] URINE AND STOOL UA Protein Negative mg/dL Negative mg/dL 05/17/2015 [facility] URINE AND STOOL UA Color Yellow *NA* (05/17/15 2:36 AM) Yellow 05/17/2015 [facility] URINE AND STOOL UA Turbidity Clear (05/17/15 2:36 AM) Clear 05/17/2015 [facility] URINE AND STOOL UA Spec Grav 1.016 <=1.030 05/17/2015 [facility] URINE AND STOOL UA pH 6.0 5.0 - 8.0 05/17/2015 [facility] URINE CHEM U Preg Negat theron (05/17/15 2:36 AM) Negative 05/17/2015 [facility] MOLECULAR DIAGNOSTIC N gonorrhea by Amp Det (APTIMA) Negative *NA* (05/15/15 7:19 AM) Negative 05/15/2015 [facility] MOLECULAR DIAGNOSTIC Source APTIMA Endocervix *NA* (05/15/15 7:19 AM) 05/15/2015 [facility] MOLECULAR DIAGNOSTIC Source APTIMA Endocervix *NA* (05/15/15 7:19 AM) 05/15/2015 [facility] MOLECULAR DIAGNOSTIC C trachomatis b y Amp Det (APTIMA) Negative *NA* (05/15/15 7:19 AM) Negative 05/15/2015 [facility] CHEM PANEL Globulin 3.5 2.0 - 4.0 05/15/2015 [facility] CHEM PANEL A/G Ratio 1.1 0.7 - 1.6 05/15/2015 [facility] CHEM PANEL B/C Ratio 9 6 - 25 05/15/2015 [facility] CHEM PANEL AGAP 11.4 10.0 - 20.0 05/15/2015 [facility] CHEM PANEL BUN 7 7 - 22 05/15/2015 [facility] CHEM PANEL Glucose Lvl 87 70 - 99 05/15/2015 [facility] CHEM PANEL Total Protein 7.3 6.4 - 8.4 05/15/2015 [facility] CHEM PANEL ALT 32 0 - 65 05/15/2015 [facility] CHEM PANEL CO2 24 24 - 32 05/15/2015 [facility] CHEM PANEL Albumin Lvl 3.8 3.5 - 5.0 05/15/2015 [facility] CHEM PANEL Alk Phos 87 39 - 136 05/15/2015 [facility] CHEM PANEL AST 16 0 - 37 05/15/2015 [facility] CHEM PANEL Bili Total 0.7 0.2 - 1.3 05/15/2015 [facility] CHEM PANEL eGFR 100 05/15/2015 Result Comment: The eGFR is calculated using the CKD-EPI formula. In most young, healthy individuals the eGFR will be >90 mL/min/1.73m2. The eGFR declines with age. An eGFR of 60-89 may be normal in some populations, particularly the elderly, for whom the CKD-EPI formula has not been extensively validated. Use of the eGFR is not recommended in the following populations:

Individuals with unstable creatinine concentrations, including patients and those with serious co-morbid conditions.

Patients with extremes in muscle mass or diet.

The data above are obtained from the National Kidney Disease Education Program (NKDEP) which additionally recommends that when the eGFR is used in patients with extremes of body mass index for purposes of drug dosing, the eGFR should be multiplied by the estimated BMI. [facility] CHEM PANEL Chloride Lvl 107 95 - 109 05/15/2015 [facility] CHEM PANEL Potassium Lvl 3.4 3.5 - 5.1 05/15/2015 [facility] CHEM PANEL Calcium Lvl 8.6 8.5 - 10.5 05/15/2015 [facility] CHEM PANEL Sodium Lvl 139 135 - 145 05/15/2015 [facility] CHEM PANEL Creatinine Lvl 0.8 0.5 - 1.4 05/15/2015 [facility] Platelet 212 133 - 450 05/15/2015 [facility] RDW 13.1 11.5 - 14.5 05/15/2015 [facility] MPV 8.9 7.4 - 10.4 05/15/2015 [facility] WBC 13.5 3.7 - 10.4 05/15/2015 [facility] Hgb 14.1 12.0 - 16.0 05/15/2015 [facility] RBC 4.85 4.20 - 5.40 05/15/2015 [facility] Hct 44.3 36.0 - 48.0 05/15/2015 [facility] MCV 91.4 80.0 - 98.0 05/15/2015 [facility] MCH 29.1 27.0 - 31.0 05/15/2015 [facility] MCHC 31.9 32.0 - 36.0 05/15/2015 [facility] Segs 61.6 45.0 - 75.0 05/15/2015 [facility] Lymphocytes # 3.3 1.0 - 5.5 05/15/2015 [facility] Eosinophils # 0.7 0.0 - 0.5 05/15/2015 [facility] Monocytes # 1.0 0.0 - 0.8 05/15/2015 [facility] Basophils # 0.2 0.0 - 0.2 05/15/2015 [facility] HEMATOLOGY Monocytes 7.1 2.0 - 12.0 05/15/2015 [facility] HEMATOLOGY Lymphocytes 24.6 20.0 - 40.0 05/15/2015 [facility] HEMATOLOGY Segs-Bands # 8.3 1.5 - 8.1 05/15/2015 [facility] HEMATOLOGY Basophils 1.2 0.0 - 1.0 05/15/2015 [facility] HEMATOLOGY Eosinophils 5.5 0.0 - 4.0 05/15/2015 [facility] URINE AND STOOL UA Mucus Moderate /LPF None Seen /LPF 05/15/2015 [facility] URINE AND STOOL UA WBC 1 0 - 5 05/15/2015 [facility] URINE AND STOOL UA RBC 2 0 - 2 05/15/2015 [facility] URINE AND STOOL UA Ketones Negative mg/dL Negative mg/dL 05/15/2015 [facility] URINE AND STOOL UA Blood Moderate *ABN* (05/15/15 2:57 AM) Negative 05/15/2015 [facility] URINE AND STOOL UA Bili Negative *NA* (05/15/15 2:57 AM) Negative 05/15/2015 [facility] URINE AND STOOL UA Protein Negative mg/dL Negative mg/dL 05/15/2015 [facility] URINE AND STOOL UA pH 6.0 5.0 - 8.0 05/15/2015 [facility] URINE AND STOOL UA Glucose Negative mg/dL Negative mg/dL 05/15/2015 [facility] URINE AND STOOL UA Sq Epi Few /LPF Few /LPF 05/15/2015 [facility] URINE AND STOOL UA Leuk Est Negative (05/15/15 2:57 AM) Negative 05/15/2015 [facility] URINE AND STOOL UA Urobilinogen 4.0 0.1 - 1.0 05/15/2015 [facility] URINE AND STOOL UA Nitrite Negative (05/15/15 2:57 AM) Negative 05/15/2015 [facility] URINE AND STOOL UA Spec Grav 1.024 <=1.030 05/15/2015 [facility] URINE AND STOOL UA Turbidity Clear (05/15/15 2:57 AM) Clear 05/15/2015 [facility] URINE AND STOOL UA Color Yellow *NA* (05/15/15 2:57 AM) Yellow 05/15/2015 [facility] URINE CHEM U Preg Negat theron (05/15/15 2:57 AM) Negative 05/15/2015 [facility] URINE AND STOOL UA Bacteria Moderate /HPF None Seen /HPF 02/14/2015 [facility] URINE AND STOOL UA Mucus Few /LPF None Seen /LPF 02/14/2015 [facility] URINE AND STOOL UA Sq Epi Moderate /LPF Few /LPF 02/14/2015 [facility] URINE AND STOOL UA WBC 5-15 02/14/2015 [facility] URINE AND STOOL UA RBC 1-4 02/14/2015 [facility] URINE AND STOOL UA Leuk Est Negative (02/14/15 3:34 AM) Negative 02/14/2015 [facility] URINE AND STOOL UA Blood Large *ABN* (02/14/15 3:34 AM) Negative 02/14/2015 [facility] URINE AND STOOL UA Bili Small *ABN* (02/14/15 3:34 AM) Negative 02/14/2015 [facility] URINE AND STOOL UA Protein Trace *ABN* (02/14/15 3:34 AM) Negative 02/14/2015 [facility] URINE AND STOOL UA Ketones 15 mg/dL Negative mg/dL 02/14/2015 [facility] URINE AND STOOL UA Nitrite Negative (02/14/15 3:34 AM) Negative 02/14/2015 [facility] URINE AND STOOL UA Urobilinogen 0.2 0.1 - 1.0 02/14/2015 [facility] URINE AND STOOL UA Glucose Negative (02/14/15 3:34 AM) Negative 02/14/2015 [facility] URINE AND STOOL UA pH 6.0 5.0 - 8.0 02/14/2015 [facility] URINE AND STOOL UA Spec Grav 1.025 <=1.030 02/14/2015 [facility] URINE AND STOOL UA Turbidity Slight Cloudy (02/14/15 3:34 AM) Clear 02/14/2015 [facility] URINE AND STOOL UA Color Yellow *NA* (02/14/15 3:34 AM) Yellow 02/14/2015 [facility] URINE AND STOOL Fecal Leukocyte None Seen 3 (02/14/15 3:34 AM) 02/14/2015 <sup>3</sup>Interpretive Franki a: A Value of None Seen, Rare, or Few is Normal. [facility] URINE CHEM U Preg Negat theron (02/14/15 3:34 AM) Negative 02/14/2015 [facility] CHEM PANEL Bili Indirect 0.4 0.0 - 1.0 02/14/2015 [facility] CHEM PANEL Alk Phos 65 39 - 136 02/14/2015 [facility] CHEM PANEL Bili Direct 0.1 0.0 - 0.3 02/14/2015 [facility] CHEM PANEL A/G Ratio 1.0 0.7 - 1.6 02/14/2015 [facility] CHEM PANEL Globulin 3.8 2.0 - 4.0 02/14/2015 [facility] CHEM PANEL Albumin Lvl 3.9 3.5 - 5.0 02/14/2015 [facility] CHEM PANEL Total Protein 7.7 6.4 - 8.4 02/14/2015 [facility] CHEM PANEL AST 23 0 - 37 02/14/2015 [facility] CHEM PANEL ALT 40 0 - 65 02/14/2015 [facility] CHEM PANEL Bili Total 0.5 0.2 - 1.3 02/14/2015 [facility] CHEM PANEL eGFR 87 02/14/2015 <sup>1</sup>Result Comment: The eGFR is calculated using the CKD-EPI formula. In most young, healthy individuals the eGFR will be >90 mL/min/1.73m2. The eGFR declines with age. An eGFR of 60-89 may be normal in some populations, particularly the elderly, for whom the CKD-EPI formula has not been extensively validated. Use of the eGFR is not recommended in the following populations:& lt;br/>
Individuals with unstable creatinine concentrations, including patients and those with serious co-morbid conditions.

Patients with extremes in muscle mass or diet.

The data above are obtained from the National Kidney Disease Education Program (NKDEP) which additionally recommends that when the eGFR is used in patients with extremes of body mass index for purposes of drug dosing, the eGFR should be multiplied by the estimated BMI. [facility] CHEM PANEL CO2 22 24 - 32 02/14/2015 [facility] CHEM PANEL Sodium Lvl 141 135 - 145 02/14/2015 [facility] CHEM PANEL Creatinine Lvl 0.9 0.5 - 1.4 02/14/2015 [facility] CHEM PANEL Potassium Lvl 3.5 3.5 - 5.1 02/14/2015 [facility] CHEM PANEL Glucose Lvl 83 70 - 99 02/14/2015 <sup>2</sup>Interpretive Data: Adult ref erence range values reflect the clinical guidelines
of the [place] [employer]. [facility] CHEM PANEL BUN 5 7 - 22 02/14/2015 [facility] CHEM PANEL AGAP 16.5 10.0 - 20.0 02/14/2015 [facility] CHEM PANEL Calcium Lvl 9.2 8.5 - 10.5 02/14/2015 [facility] CHEM PANEL Chloride Lvl 106 95 - 109 02/14/2015 [facility] URINE AND STOOL UA Urobilinogen <=1.0 mg/dL 0.1 - 1.0 09/30/2014 [facility] URINE AND STOOL UA Blood Moderate *ABN* (09/29/14 11:56 PM) Negative 09/30/2014 [facility] URINE AND STOOL UA Bili Negative *NA* (09/29/14 11:56 PM) Negative 09/30/2014 [facility] URINE AND STOOL UA Leuk Est Trace *ABN* (09/29/14 11:56 PM) Negative 09/30/2014 [facility] URINE AND STOOL UA Nitrite Negative (09/29/14 11:56 PM) Negative 09/30/2014 [facility] URINE AND STOOL UA Ketones Negative mg/dL Negative mg/dL 09/30/2014 [facility] URINE AND STOOL UA RBC 2 0 - 2 09/30/2014 [facility] URINE AND STOOL UA Bacteria Few /HPF None Seen /HPF 09/30/2014 [facility] URINE AND STOOL UA WBC 2 0 - 5 09/30/2014 [facility] URINE AND STOOL UA Sq Epi Few /LPF Few /LPF 09/30/2014 [facility] URINE AND STOOL UA Mucus Few /LPF None Seen /LPF 09/30/2014 [facility] URINE AND STOOL UA Color Yellow *NA* (09/29/14 11:56 PM) Yellow 09/30/2014 [facility] URINE AND STOOL UA pH 6.0 5.0 - 8.0 09/30/2014 [facility] URINE AND STOOL UA Spec Grav 1.020 <=1.030 09/30/2014 [facility] URINE AND STOOL UA Turbidity Marked *ABN* (09/29/14 11:56 PM) Clear 09/30/2014 [facility] URINE AND STOOL UA Glucose Negative mg/dL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 LIVER: The liver parenchyma is normal in appearance without masses or intrahepatic biliary ductal dilatation. The portal vein is normal in caliber. BILIARY TREE: There is no significant biliary ductal dilatation. GALLBLADDER: The gallbladder is surgically absent, surgical clips are seen within the gallbladder fossa. PANCREAS: The pancreas is unremarkable. The pancreatic duct is normal in caliber. SPLEEN: The spleen is normal in size and there are no parenchymal abnormalities. ADRENALS: The right adrenal gland is unremarkable. The left adrenal gland is unremarkable. KIDNEYS: The kidneys demonstrates normal contrast enhancement. There are no masses. There is no evidence of renal or ureteral calculi. There is no evidence of hydronephrosis. BOWEL: There is a small hiatal hernia. There is no evidence of bowel obstruction. There is no evidence of colonic diverticulosis or diverticulitis. A moderate amount of fecal material is noted throughout the colon. APPENDIX: The appendix is within normal limits. PELVIS: There are no pelvic masses. The urinary bladder is unremarkable. PERITONEUM: There is no evidence for free intraperitoneal fluid or air. SOFT TISSUES: The soft tissues are unremarkable. There is no evidence of masses or hernias. LYMPH NODES: There is no evidence of mesenteric, retroperitoneal, or inguinal lymphadenopathy. VASCULATURE: The abdominal aorta is normal in caliber. The branches of the abdominal aorta are widely patent. MUSCULOSKELETAL: There are degenerative changes within the visualized spine. IMPRESSION: 1. Small hiatal hernia. No evidence of bowel obstruction. 2. No evidence of colonic diverticulosi s or diverticulitis. SL: SIMRAN 12/31/2016 [facility] Abdomen/Pelvis w IV contrast CT Patient Name: COLLEEN BEDOLLA : 1985; Age: 30 years y/o Female MR: [id number] Study: Abdomen/Pelvis w IV contrast CT 07/19/2016 8:53 PM [facility]ERGY AND IMMUNOLOGY CHIEF Ordering Physician: Juancho King Comparison: 01/16/2016 CT Radiation Dose DLP 2169.89 mGy-cm Clinical Indication: Left flank pain; nausea vomiting diarrhea Multiple computerized axial tomograms of the abdomen and pelvis were obtained after administration of IV contrast and without oral contrast. The lack of oral contrast limits diagnostic detail at the enteric tract and mesentery. 2-D sagittal and coronal reformation reconstruction images were obtained. Lung bases clear. Tiny hiatal hernia with patulous EG junction. Paraseptal emphysema is noted at the medial right lung base. Mild diffuse fatty infiltration of the liver. Punctate metallic radiopacities are noted within the retained fecal material at the transverse colon likely representing ingested material. Surgical clips gallbladder fossa status post cholecystectomy. Liver, kidneys, spleen, pancreas and adrenal glands have an otherwise normal CT appearance. No adenopathy, abdominal mass, free fluid or pneumoperitoneum. No small bowel dilatation. Tiny fat filled umbilical hernia. Uterus and adnexa are unremarkable. Urinary bladder is unremarkable. The appendix is not conclusively identified; however, no right lower quadrant inflammatory changes are noted. There is no pelvic mass, adenopathy or free fluid. Punctate radiopacities are noted within the fecal material at the sigmoid colon likely representing ingested material. Degenerative disc disease is present at L3-L4 and L4-L5. IMPRESSION: 1. No acute abnormality at the abdomen o r pelvis. 2. Status post cholecystectomy. 3. Mild diffuse fatty infiltration of th e liver. SL: OCTAVIA 07/19/2016 [facility] Shoulder series DX Patient Nam e: COLLEEN BEDOLLA : 1985; Age: 30 years y/o Female MR: [id number] * LEFT SHOULDER, 3 views History: Injury, trauma to left shoulder. Left shoulder pain. Technique: The left shoulder was evaluated in frontal projection in internal and external rotation. A transthoracic view was also obtained. FINDINGS: There is no evidence of fracture, dislocation, or acute change. There are no degenerative changes or other significant osseous abnormalities. IMPRESSION: 1. Negative left shoulder. SL: MAAME 04/23/2016 [facility] Spine thoracic 3 views DX Stud y: Spine thoracic 3 views DX Clinical Indication: Pain Post Trauma; Comparison: None FINDINGS: The 3 views of the thoracic spine show normal alignment of the thoracic spine. There are no fractures or subluxations. The anterior paraspinal soft tissues are unremarkable. The disc spaces are unremarkable. The visualized posterior elements are unremarkable. Mild thoracic spondylosis. Surgical clips are present within the right upper quadrant. If there is further concern or neurological abnormalities on clinical exam, recommend CT or MRI of the thoracic spine for complete assessment. IMPRESSION: 1. No acute fracture or pathologic sublu xation. SL: JNDEJAN 04/16/2016 [facility] cervical 2 or 3 view DX Study: Spine cervical 2 or 3 view DX Clinical Indication: Pain Post Trauma; Comparison: None FINDINGS: Mild reversal of the normal cervical lordosis. No definite acute fractures or subluxations. Alignment of the cervical spine is grossly anatomic. The prevertebral soft tissues and atlanto-dental interspace are normal. The odontoid and lateral masses are grossly anatomic. If there is further concern or neurological abnormalities on clinical exam, recommend further radiographic views, MRI or CT of the cervical spine for complete assessment. IMPRESSION: 1. No definite acute fracture or patholo gic subluxation detected. SL: JNRAFAEL 04/16/2016 [facility] lumbar 2 or 3 views DX S tudy: Spine lumbar 2 or 3 views DX Clinical Indication: Pain Post Trauma; Comparison: None FINDINGS: The AP and lateral views of the lumbar spine demonstrate no fractures, pars defects, or spondylolisthesis. The disc spaces are normal. Mild lumbar spondylosis and facet arthrosis. Surgical clips are present within the right upper quadrant. If there is further concern or neurological abnormalities on clinical exam, MRI or CT of the lumbar spine may be performed for complete assessment. IMPRESSION: 1. No definite acute fracture or patholo gic subluxation detected. 2. Surgical clips are present within the right upper quadrant. SL: BRAYAN 04/16/2016 [facility] Abdomen/Pelvis wo IV contrast CT Study: Abdomen/Pelvis wo IV contrast CT Clinical Indication: Left upper quadrant pain Comparison: CT abdomen and pelvis from 05/15/2015 TECHNIQUE: Multiple axial CT images of the abdomen and pelvis were acquired without the administration of intravenous contrast. Sagittal and coronal reformatted images were performed. CT Radiation Dose DLP 1139.72 mGy-cm FINDINGS: The visualized lung bases are clear bilaterally. Patient is status post cholecystectomy. Liver, pancreas, spleen, adrenal glands, and kidneys are within the normal limits imposed by the lack of intravenous contrast. Urinary bladder, uterus, and ovaries are unremarkable. Multiple sigmoid diverticula are seen without inflammatory change to suggest acute diverticulitis. Appendix is unremarkable. No intraperitoneal free air, free fluid, or pathologic adenopathy is seen. Degenerative disc disease of the lower lumbar spine is seen. IMPRESSION: 1. No acute intra-abdominal/pelvic abnor mality. 2. Colonic diverticulosis without acute diverticulitis. SL: DEVYN 01/17/2016 [facility] w Transvag and Pelvis Doppler US PELVIC ULTRASOUND with Doppler studies of the ovaries 1. Transabdominal pelvic ultrasound. 2. Transvaginal pelvic ultrasound. 3. Arterial (inflow) and venous (outflow ) Doppler studies of the ovaries. (spectral doppler, color flow, and arterial inflow and venous outflow studies). HISTORY: Pelvic pain, suprapubic pain, history of polycystic ovaries, concern for possible ovarian torsion. Technique: The pelvis was evaluated utilizing dynamic scanning with both the transabdominal transducer and transvaginal transducer. Arterial and venous Doppler studies the ovaries were performed. A CT scan of the abdomen pelvis from yesterday was reviewed. FINDINGS: I. Transabdominal pelvic ultrasound - the findings on the transabdominal pelvic ultrasound are similar to and best seen on the transvaginal study. Please refer to the subsequent report. FINDINGS: II. Transvaginal pelvic ultrasound. - please refer to report below. Uterus: Anteverted, normal in size. The uterus measures 8.8 x 5.6 x 4.3 cm. No fibroids or other abnormalities seen. Normal endometrial stripe measures 3 mm in thickness. Ovaries: Both seen. The ovaries are normal in size. Right ovary: Unremarkable. Right ovary measures 2.8 x 1.9 x 1.3 cm. Left ovary: Unremarkable Left ovary measures 2.3 x 1.7 x 1.7 cm. There are normal arterial and venous Doppler signals from each ovary. There is no evidence of ovarian torsion. No adnexal masses or fluid collections were seen. CONCLUSION: 1. Negative pelvic ultrasound. SL: 12 Teddy Zafar M.D. 05/17/2015 [facility] ED Abdomen/Pelvis IV contrast only CT CT SCAN OF THE ABDOMEN AND PELVIS WITH CONTRAST. HX: Abdominal pain, acute. COMPARISON: [None] Technique: Helical CT images were obtained from the domes the diaphragms to the symphysis pubis following the administration of intravenous contrast. No p.o. contrast was given. ABDOMEN AND PELVIS: The lung bases are clear. There are no pleural effusions. The heart is normal in size. Tiny hiatal hernia. Postoperative cholecystectomy. The liver, spleen, pancreas, and adrenals are normal in appearance. The kidneys show good, symmetrical, excretion without hydronephrosis. grossly normal appendix. No abdominal masses, adenopathy, ascites, or fluid collections are seen. Mild descending diverticulosis. Heterogeneous uterus. The bladder is nondistended. Mild lumbar spondylosis. IMPRESSION: 1. No definite acute focal process detec jennifer. No convincing evidence of acute appendicitis. No definite obstructive uropathy. 2. Mild descending diverticulosis. SL: 12 05/15/2015 [facility] Consultation Notes No Data Provided for This Section Discharge Summaries No Data Provided for This Section History and Physicals No Data Provided for This Section Vital Signs Vital Sign Value Date Comments Source Temperature Oral (F) 98.6 F 03/26/2020 [facility] Heart Rate 75 03/26/2020 [facility] Systolic (mm Hg) 112 03/26/2020 [facility] Diastolic (mm Hg) 73 03/26/2020 [facility] Temperature Oral (F) 98.2 F 03/26/2020 [facility] Heart Rate 96 03/26/2020 [facility] Respitory Rate 16 03/26/2020 [facility] Systolic (mm Hg) 137 03/26/2020 [facility] Diastolic (mm Hg) 92 03/26/2020 [facility] Temperature Oral (F) 98.1 F 03/26/2020 [facility] Heart Rate 109 03/26/2020 [facility] Respitory Rate 18 03/26/2020 [facility] Systolic (mm Hg) 116 03/26/2020 [facility] Diastolic (mm Hg) 66 03/26/2020 [facility] Respitory Rate 18 03/26/2020 [facility] Height 167.64 cm 03/23/2020 [facility] Weight 124.091 03/23/2020 [facility] BMI Calculated 44.16 03/23/2020 [facility] Temperature Oral (F) 99.3 F 11/04/2019 [facility] Heart Rate 99 11/04/2019 [facility] Respitory Rate 18 11/04/2019 [facility] Systolic (mm Hg) 117 11/04/2019 [facility] Diastolic (mm Hg) 80 11/04/2019 [facility] Temperature Oral (F) 98.2 F 11/04/2019 [facility] Heart Rate 94 11/04/2019 [facility] Respitory Rate 18 11/04/2019 [facility] Systolic (mm Hg) 130 11/04/2019 [facility] Diastolic (mm Hg) 93 11/04/2019 [facility] Temperature Oral (F) 98.2 F 11/04/2019 [facility] Heart Rate 107 11/04/2019 [facility] Systolic (mm Hg) 152 11/04/2019 [facility] Diastolic (mm Hg) 80 11/04/2019 [facility] Respitory Rate 18 11/04/2019 [facility] Height 167.64 cm 11/02/2019 [facility] Weight 125 11/02/2019 [facility] BMI Calculated 44.48 11/02/2019 [facility] Temperature Oral (F) 98 F 05/25/2019 [facility] Heart Rate 92 05/25/2019 [facility] Respitory Rate 18 05/25/2019 [facility] Systolic (mm Hg) 138 05/25/2019 [facility] Diastolic (mm Hg) 86 05/25/2019 [facility] Temperature Oral (F) 98 F 05/25/2019 [facility] Heart Rate 96 05/25/2019 [facility] Respitory Rate 18 05/25/2019 [facility] Systolic (mm Hg) 140 05/25/2019 [facility] Diastolic (mm Hg) 86 05/25/2019 [facility] Systolic (mm Hg) 134 05/25/2019 [facility] Diastolic (mm Hg) 93 05/25/2019 [facility] Heart Rate 94 05/25/2019 [facility] Respitory Rate 18 05/25/2019 [facility] Temperature Oral (F) 98.2 F 05/25/2019 [facility] Height 167.64 cm 05/25/2019 [facility] BMI Calculated 44.48 05/25/2019 [facility] Weight 125 05/25/2019 [facility] Systolic (mm Hg) 111 05/16/2019 [facility] Diastolic (mm Hg) 73 05/16/2019 [facility] Respitory Rate 16 05/16/2019 [facility] Heart Rate 89 05/16/2019 [facility] Temperature Oral (F) 98.6 F 05/16/2019 [facility] Systolic (mm Hg) 111 05/16/2019 [facility] Diastolic (mm Hg) 79 05/16/2019 [facility] Heart Rate 98 05/16/2019 [facility] Respitory Rate 16 05/16/2019 [facility] Temperature Oral (F) 98.8 F 05/16/2019 [facility] Height 167.64 cm 05/16/2019 [facility] BMI Calculated 45.29 05/16/2019 [facility] Weight 127.273 05/16/2019 [facility] Temperature Oral (F) 98.6 F 04/04/2019 [facility] Heart Rate 88 04/04/2019 [facility] Respitory Rate 18 04/04/2019 [facility] Systolic (mm Hg) 132 04/04/2019 [facility] Diastolic (mm Hg) 78 04/04/2019 [facility] Systolic (mm Hg) 138 04/03/2019 [facility] Diastolic (mm Hg) 88 04/03/2019 [facility] Heart Rate 90 04/03/2019 [facility] Respitory Rate 18 04/03/2019 [facility] Temperature Oral (F) 98.6 F 04/03/2019 [facility] Weight 125 04/03/2019 [facility] Systolic (mm Hg) 104 03/24/2019 [facility] Diastolic (mm Hg) 70 03/24/2019 [facility] Respitory Rate 18 03/24/2019 [facility] Heart Rate 100 03/24/2019 [facility] Temperature Oral (F) 98.7 F 03/24/2019 [facility] Temperature Oral (F) 98.0 F 03/24/2019 [facility] Heart Rate 89 03/24/2019 [facility] Systolic (mm Hg) 107 03/24/2019 [facility] Diastolic (mm Hg) 76 03/24/2019 [facility] Respitory Rate 18 03/24/2019 [facility] Heart Rate 99 03/24/2019 [facility] Respitory Rate 18 03/24/2019 [facility] Systolic (mm Hg) 96 03/24/2019 [facility] Diastolic (mm Hg) 71 03/24/2019 [facility] Temperature Oral (F) 98.1 F 03/24/2019 [facility] BMI Calculated 45.24 03/23/2019 [facility] Height 167.64 cm 03/23/2019 [facility] Weight 127.136 03/23/2019 [facility] BMI Calculated 43.67 03/23/2019 [facility] Weight 122.727 03/23/2019 [facility] Height 167.64 cm 03/23/2019 [facility] Heart Rate 69 03/07/2019 [facility] Respitory Rate 16 03/07/2019 [facility] Systolic (mm Hg) 120 03/07/2019 [facility] Diastolic (mm Hg) 81 03/07/2019 [facility] Temperature Oral (F) 98.5 F 03/07/2019 [facility] Systolic (mm Hg) 113 03/07/2019 [facility] Diastolic (mm Hg) 77 03/07/2019 [facility] Respitory Rate 16 03/07/2019 [facility] Temperature Oral (F) 98.4 F 03/07/2019 [facility] Heart Rate 74 03/07/2019 [facility] Systolic (mm Hg) 120 03/07/2019 [facility] Diastolic (mm Hg) 83 03/07/2019 [facility] Heart Rate 78 03/07/2019 [facility] Respitory Rate 16 03/07/2019 [facility] Temperature Oral (F) 98.2 F 03/07/2019 [facility] Height 167.64 cm 03/01/2019 [facility] Weight 129 03/01/2019 [facility] BMI Calculated 45.9 03/01/2019 [facility] Weight 136.364 03/01/2019 [facility] Heart Rate 64 01/31/2019 [facility] Systolic (mm Hg) 140 01/31/2019 [facility] Diastolic (mm Hg) 74 01/31/2019 [facility] Systolic (mm Hg) 138 01/31/2019 [facility] Diastolic (mm Hg) 78 01/31/2019 [facility] Heart Rate 64 01/31/2019 [facility] Systolic (mm Hg) 147 01/31/2019 [facility] Diastolic (mm Hg) 88 01/31/2019 [facility] Heart Rate 61 01/31/2019 [facility] Temperature Oral (F) 98.8 F 01/31/2019 [facility] Temperature Oral (F) 98.7 F 01/31/2019 [facility] Respitory Rate 16 01/31/2019 [facility] Temperature Oral (F) 98.9 F 01/31/2019 [facility] Respitory Rate 18 01/31/2019 [facility] Respitory Rate 18 01/31/2019 [facility] BMI Calculated 45.29 01/27/2019 [facility] Height 167.64 cm 01/27/2019 [facility] Weight 127.273 01/27/2019 [facility] Weight 125 01/27/2019 [facility] BMI Calculated 44.48 01/27/2019 [facility] Height 167.64 cm 01/27/2019 [facility] Systolic (mm Hg) 135 12/13/2018 [facility] Diastolic (mm Hg) 74 12/13/2018 [facility] Respitory Rate 17 12/13/2018 [facility] Heart Rate 85 12/13/2018 [facility] Temperature Oral (F) 98.8 F 12/13/2018 [facility] BMI Calculated 48.84 12/13/2018 [facility] Weight 137.25 12/13/2018 [facility] Height 167.64 cm 12/13/2018 [facility] Respitory Rate 18 12/13/2018 [facility] Temperature Oral (F) 99.2 F 12/13/2018 [facility] Heart Rate 87 12/13/2018 [facility] Systolic (mm Hg) 130 12/13/2018 [facility] Diastolic (mm Hg) 83 12/13/2018 [facility] Systolic (mm Hg) 125 12/09/2018 [facility] Diastolic (mm Hg) 86 12/09/2018 [facility] Respitory Rate 18 12/09/2018 [facility] Heart Rate 61 12/09/2018 [facility] Temperature Oral (F) 99.1 F 12/09/2018 [facility] Temperature Oral (F) 98.5 F 12/09/2018 [facility] Systolic (mm Hg) 124 12/09/2018 [facility] Diastolic (mm Hg) 85 12/09/2018 [facility] Respitory Rate 18 12/09/2018 [facility] Heart Rate 106 12/09/2018 [facility] Systolic (mm Hg) 117 12/09/2018 [facility] Diastolic (mm Hg) 80 12/09/2018 [facility] Respitory Rate 18 12/09/2018 [facility] Heart Rate 97 12/09/2018 [facility] Temperature Oral (F) 98.4 F 12/09/2018 [facility] Weight 58.778 12/04/2018 [facility] Height 167.64 cm 12/04/2018 [facility] BMI Calculated 46.29 12/04/2018 [facility] Weight 130.1 12/04/2018 [facility] BMI Calculated 44.96 12/03/2018 [facility] Weight 126.364 12/03/2018 [facility] Height 167.64 cm 12/03/2018 [facility] Systolic (mm Hg) 108 10/12/2018 [facility] Diastolic (mm Hg) 76 10/12/2018 [facility] Heart Rate 99 10/12/2018 [facility] Respitory Rate 17 10/12/2018 [facility] Temperature Oral (F) 98.3 F 10/12/2018 [facility] Heart Rate 90 10/12/2018 [facility] Temperature Oral (F) 97.9 F 10/12/2018 [facility] Systolic (mm Hg) 112 10/12/2018 [facility] Diastolic (mm Hg) 77 10/12/2018 [facility] Respitory Rate 18 10/12/2018 [facility] Systolic (mm Hg) 112 10/12/2018 [facility] Diastolic (mm Hg) 78 10/12/2018 [facility] Respitory Rate 16 10/12/2018 [facility] Heart Rate 76 10/12/2018 [facility] Temperature Oral (F) 98.0 F 10/12/2018 [facility] Weight 133.182 10/11/2018 [facility] Height 167.64 cm 10/11/2018 [facility] BMI Calculated 47.39 10/11/2018 [facility] Systolic (mm Hg) 94 10/11/2018 [facility] Diastolic (mm Hg) 64 10/11/2018 [facility] Temperature Oral (F) 98.2 F 10/11/2018 [facility] Respitory Rate 17 10/11/2018 [facility] Heart Rate 85 10/11/2018 [facility] Respitory Rate 16 10/11/2018 [facility] Heart Rate 71 10/11/2018 [facility] Temperature Oral (F) 98 F 10/11/2018 [facility] Systolic (mm Hg) 122 10/11/2018 [facility] Diastolic (mm Hg) 75 10/11/2018 [facility] Weight 133.005 10/11/2018 [facility] Temperature Oral (F) 98.6 F 10/11/2018 [facility] Heart Rate 88 10/11/2018 [facility] Respitory Rate 17 10/11/2018 [facility] Systolic (mm Hg) 130 10/11/2018 [facility] Diastolic (mm Hg) 78 10/11/2018 [facility] Temperature Oral (F) 97.6 F 09/06/2018 [facility] Respitory Rate 19 09/06/2018 [facility] Heart Rate 73 09/06/2018 [facility] Systolic (mm Hg) 118 09/06/2018 [facility] Diastolic (mm Hg) 75 09/06/2018 [facility] Respitory Rate 17 09/06/2018 [facility] Temperature Oral (F) 98.2 F 09/06/2018 [facility] Heart Rate 82 09/06/2018 [facility] Systolic (mm Hg) 120 09/06/2018 [facility] Diastolic (mm Hg) 74 09/06/2018 [facility] Temperature Oral (F) 98 F 09/06/2018 [facility] Height 167.64 cm 09/06/2018 [facility] Heart Rate 82 09/06/2018 [facility] Respitory Rate 18 09/06/2018 [facility] Systolic (mm Hg) 142 09/06/2018 [facility] Diastolic (mm Hg) 87 09/06/2018 [facility] BMI Calculated 42.86 09/06/2018 [facility] Weight 120.455 09/06/2018 [facility] Systolic (mm Hg) 111 08/30/2018 [facility] Diastolic (mm Hg) 72 08/30/2018 [facility] Temperature Oral (F) 98.0 F 08/30/2018 [facility] Respitory Rate 16 08/30/2018 [facility] Heart Rate 73 08/30/2018 [facility] Heart Rate 72 08/30/2018 [facility] Respitory Rate 16 08/30/2018 [facility] Systolic (mm Hg) 110 08/30/2018 [facility] Diastolic (mm Hg) 75 08/30/2018 [facility] Temperature Oral (F) 98.2 F 08/30/2018 [facility] Respitory Rate 18 08/30/2018 [facility] Systolic (mm Hg) 110 08/30/2018 [facility] Diastolic (mm Hg) 62 08/30/2018 [facility] Heart Rate 81 08/30/2018 [facility] Temperature Oral (F) 98.1 F 08/30/2018 [facility] Height 167.64 cm 08/24/2018 [facility] Weight 127.727 08/24/2018 [facility] BMI Calculated 45.45 08/24/2018 [facility] BMI Calculated 50.03 08/24/2018 [facility] Weight 136.364 08/24/2018 [facility] Height 165.1 cm 08/24/2018 [facility] Weight 120.455 08/24/2018 [facility] Temperature Oral (F) 98.4 F 05/22/2018 [facility] Respitory Rate 18 05/22/2018 [facility] Heart Rate 57 05/22/2018 [facility] Systolic (mm Hg) 113 05/22/2018 [facility] Diastolic (mm Hg) 78 05/22/2018 [facility] Respitory Rate 18 05/22/2018 [facility] Heart Rate 68 05/22/2018 [facility] Temperature Oral (F) 98.3 F 05/22/2018 [facility] Systolic (mm Hg) 109 05/22/2018 [facility] Diastolic (mm Hg) 71 05/22/2018 [facility] Systolic (mm Hg) 107 05/22/2018 [facility] Diastolic (mm Hg) 71 05/22/2018 [facility] Temperature Oral (F) 98.2 F 05/22/2018 [facility] Heart Rate 55 05/22/2018 [facility] Respitory Rate 17 05/22/2018 [facility] Weight 120.909 05/17/2018 [facility] BMI Calculated 43.02 05/17/2018 [facility] Height 167.64 cm 05/17/2018 [facility] Weight 119.091 05/17/2018 [facility] Temperature Oral (F) 97.5 F 01/13/2018 [facility] Respitory Rate 18 01/13/2018 [facility] Systolic (mm Hg) 121 01/13/2018 [facility] Diastolic (mm Hg) 81 01/13/2018 [facility] Heart Rate 86 01/13/2018 [facility] Height 167.64 cm 01/12/2018 [facility] BMI Calculated 38.82 01/12/2018 [facility] Weight 109.091 01/12/2018 [facility] Heart Rate 106 01/12/2018 [facility] Systolic (mm Hg) 115 01/12/2018 [facility] Diastolic (mm Hg) 84 01/12/2018 [facility] Temperature Oral (F) 98.8 F 01/12/2018 [facility] Respitory Rate 20 01/12/2018 [facility] Heart Rate 72 12/31/2016 [facility] Systolic (mm Hg) 94 12/31/2016 [facility] Diastolic (mm Hg) 62 12/31/2016 [facility] Respitory Rate 18 12/31/2016 [facility] Heart Rate 64 12/31/2016 [facility] Temperature Oral (F) 98.4 F 12/31/2016 [facility] Systolic (mm Hg) 87 12/31/2016 [facility] Diastolic (mm Hg) 56 12/31/2016 [facility] Systolic (mm Hg) 139 12/31/2016 [facility] Diastolic (mm Hg) 99 12/31/2016 [facility] Respitory Rate 18 12/31/2016 [facility] Temperature Oral (F) 98.5 F 12/31/2016 [facility] Heart Rate 50 12/31/2016 [facility] Weight 109 12/31/2016 [facility] Respitory Rate 18 12/31/2016 [facility] Temperature Oral (F) 98 F 12/31/2016 [facility] BMI Calculated 38.82 12/31/2016 [facility] Height 167.64 cm 12/31/2016 [facility] Weight 109.091 12/31/2016 [facility] Systolic (mm Hg) 110 12/26/2016 [facility] Diastolic (mm Hg) 74 12/26/2016 [facility] Respitory Rate 18 12/26/2016 [facility] Heart Rate 62 12/26/2016 [facility] Temperature Oral (F) 98 F 12/26/2016 [facility] Systolic (mm Hg) 110 12/26/2016 [facility] Diastolic (mm Hg) 74 12/26/2016 [facility] Respitory Rate 17 12/26/2016 [facility] Heart Rate 60 12/26/2016 [facility] Temperature Oral (F) 98 F 12/26/2016 [facility] Weight 109.091 12/25/2016 [facility] BMI Calculated 38.82 12/25/2016 [facility] Height 167.64 cm 12/25/2016 [facility] Systolic (mm Hg) 109 12/25/2016 [facility] Diastolic (mm Hg) 73 12/25/2016 [facility] Respitory Rate 16 12/25/2016 [facility] Height 167.64 cm 12/25/2016 [facility] BMI Calculated 38.82 12/25/2016 [facility] Weight 109.091 12/25/2016 [facility] Temperature Oral (F) 98.2 F 12/25/2016 [facility] Heart Rate 62 12/25/2016 [facility] Systolic (mm Hg) 132 07/20/2016 [facility] Diastolic (mm Hg) 84 07/20/2016 [facility] Heart Rate 70 07/20/2016 [facility] Respitory Rate 16 07/20/2016 [facility] Temperature Oral (F) 98.3 F 07/20/2016 [facility] Weight 104.545 07/20/2016 [facility] BMI Calculated 37.2 07/20/2016 [facility] Height 167.64 cm 07/20/2016 [facility] Temperature Oral (F) 98.4 F 07/20/2016 [facility] Systolic (mm Hg) 120 07/20/2016 [facility] Diastolic (mm Hg) 81 07/20/2016 [facility] [facility] Heart Rate 66 07/20/2016 [facility] Respitory Rate 15 07/20/2016 [facility] Systolic (mm Hg) 111 04/23/2016 [facility] Diastolic (mm Hg) 76 04/23/2016 [facility] Respitory Rate 20 04/23/2016 [facility] Heart Rate 84 04/23/2016 [facility] Temperature Oral (F) 97.6 F 04/23/2016 [facility] Height 157.48 cm 04/23/2016 [facility] Systolic (mm Hg) 113 04/23/2016 [facility] Diastolic (mm Hg) 78 04/23/2016 [facility] Heart Rate 85 04/23/2016 [facility] Respitory Rate 20 04/23/2016 [facility] Temperature Oral (F) 98.2 F 04/23/2016 [facility] Weight 94.091 04/23/2016 [facility] BMI Calculated 37.94 04/23/2016 [facility] Systolic (mm Hg) 112 04/16/2016 [facility] Diastolic (mm Hg) 79 04/16/2016 [facility] Respitory Rate 20 04/16/2016 [facility] Heart Rate 88 04/16/2016 [facility] Temperature Oral (F) 98.2 F 04/16/2016 [facility] Respitory Rate 18 04/16/2016 [facility] Heart Rate 109 04/16/2016 [facility] Systolic (mm Hg) 111 04/16/2016 [facility] Diastolic (mm Hg) 78 04/16/2016 [facility] Height 167.64 cm 04/16/2016 [facility] Temperature Oral (F) 98.7 F 04/16/2016 [facility] BMI Calculated 36.72 04/16/2016 [facility] Weight 103.182 04/16/2016 [facility] Systolic (mm Hg) 110 04/14/2016 [facility] Diastolic (mm Hg) 70 04/14/2016 [facility] Heart Rate 70 04/14/2016 [facility] Temperature Oral (F) 98 F 04/14/2016 [facility] Systolic (mm Hg) 124 04/14/2016 [facility] Diastolic (mm Hg) 79 04/14/2016 [facility] Respitory Rate 18 04/14/2016 [facility] Heart Rate 70 04/14/2016 [facility] Temperature Oral (F) 98 F 04/14/2016 [facility] Systolic (mm Hg) 107 04/14/2016 [facility] Diastolic (mm Hg) 68 04/14/2016 [facility] Respitory Rate 18 04/14/2016 [facility] Heart Rate 74 04/14/2016 [facility] Temperature Oral (F) 98.2 F 04/14/2016 [facility] BMI Calculated 36.72 04/14/2016 [facility] Weight 103.182 04/14/2016 [facility] Height 167.64 cm 04/14/2016 [facility] Respitory Rate 18 04/14/2016 [facility] Systolic (mm Hg) 105 02/24/2016 [facility] Diastolic (mm Hg) 68 02/24/2016 [facility] Heart Rate 63 02/24/2016 [facility] Respitory Rate 16 02/24/2016 [facility] Heart Rate 86 02/24/2016 [facility] Respitory Rate 18 02/24/2016 [facility] BMI Calculated 35.75 02/24/2016 [facility] Height 167.64 cm 02/24/2016 [facility] Weight 100.455 02/24/2016 [facility] Temperature Oral (F) 98.1 F 02/24/2016 [facility] Systolic (mm Hg) 124 02/24/2016 [facility] Diastolic (mm Hg) 84 02/24/2016 [facility] Temperature Oral (F) 98.1 F 01/17/2016 [facility] Heart Rate 61 01/17/2016 [facility] Respitory Rate 18 01/17/2016 [facility] Systolic (mm Hg) 122 01/17/2016 [facility] Diastolic (mm Hg) 82 01/17/2016 [facility] Heart Rate 62 01/17/2016 [facility] Systolic (mm Hg) 126 01/17/2016 [facility] Diastolic (mm Hg) 78 01/17/2016 [facility] Temperature Oral (F) 98.0 F 01/17/2016 [facility] Respitory Rate 16 01/17/2016 [facility] Heart Rate 94 01/17/2016 [facility] Respitory Rate 18 01/17/2016 [facility] Systolic (mm Hg) 120 01/17/2016 [facility] Diastolic (mm Hg) 74 01/17/2016 [facility] Weight 100.455 01/17/2016 [facility] Height 167.64 cm 01/17/2016 [facility] BMI Calculated 35.75 01/17/2016 [facility] Temperature Oral (F) 98 F 01/17/2016 [facility] Respitory Rate 18 10/13/2015 [facility] Heart Rate 70 10/13/2015 [facility] Temperature Oral (F) 98.2 F 10/13/2015 [facility] Systolic (mm Hg) 118 10/13/2015 [facility] Diastolic (mm Hg) 80 10/13/2015 [facility] Height 167.64 cm 10/13/2015 [facility] BMI Calculated 36.23 10/13/2015 [facility] Weight 101.818 10/13/2015 [facility] Heart Rate 74 10/13/2015 [facility] Respitory Rate 20 10/13/2015 [facility] Temperature Oral (F) 98.2 F 10/13/2015 [facility] Systolic (mm Hg) 117 10/13/2015 [facility] Diastolic (mm Hg) 78 10/13/2015 [facility] Respitory Rate 18 07/04/2015 [facility] Heart Rate 61 07/04/2015 [facility] Temperature Oral (F) 98.0 F 07/04/2015 [facility] Systolic (mm Hg) 100 07/04/2015 [facility] Diastolic (mm Hg) 58 07/04/2015 [facility] Respitory Rate 18 07/04/2015 [facility] Heart Rate 70 07/04/2015 [facility] Temperature Oral (F) 98.4 F 07/04/2015 [facility] Systolic (mm Hg) 104 07/04/2015 [facility] Diastolic (mm Hg) 66 07/04/2015 [facility] Heart Rate 82 07/04/2015 [facility] Respitory Rate 20 07/04/2015 [facility] Temperature Oral (F) 98.2 F 07/04/2015 [facility] Systolic (mm Hg) 126 07/04/2015 [facility] Diastolic (mm Hg) 83 07/04/2015 [facility] Weight 107.273 07/04/2015 [facility] Systolic (mm Hg) 110 05/17/2015 [facility] Diastolic (mm Hg) 78 05/17/2015 [facility] Temperature Oral (F) 98.2 F 05/17/2015 [facility] Heart Rate 55 05/17/2015 [facility] Heart Rate 61 05/17/2015 [facility] Systolic (mm Hg) 106 05/17/2015 [facility] Diastolic (mm Hg) 65 05/17/2015 [facility] Systolic (mm Hg) 101 05/17/2015 [facility] Diastolic (mm Hg) 51 05/17/2015 [facility] Heart Rate 60 05/17/2015 [facility] Respitory Rate 18 05/17/2015 [facility] Temperature Oral (F) 99.6 F 05/17/2015 [facility] Temperature Oral (F) 99.6 F 05/17/2015 [facility] Height 167.64 cm 05/17/2015 [facility] BMI Calculated 39.95 05/17/2015 [facility] Weight 112.273 05/17/2015 [facility] Respitory Rate 18 05/17/2015 [facility] Temperature Oral (F) 98.9 F 05/15/2015 [facility] Heart Rate 51 05/15/2015 [facility] Respitory Rate 18 05/15/2015 [facility] Systolic (mm Hg) 114 05/15/2015 [facility] Diastolic (mm Hg) 74 05/15/2015 [facility] Heart Rate 76 05/15/2015 [facility] Respitory Rate 18 05/15/2015 [facility] Systolic (mm Hg) 131 05/15/2015 [facility] Diastolic (mm Hg) 81 05/15/2015 [facility] Temperature Oral (F) 98.1 F 05/15/2015 [facility] Height 167.64 cm 05/15/2015 [facility] BMI Calculated 43.67 05/15/2015 [facility] Weight 122.727 05/15/2015 [facility] Temperature Oral (F) 98.3 F 05/15/2015 [facility] Systolic (mm Hg) 127 05/15/2015 [facility] Diastolic (mm Hg) 74 05/15/2015 [facility] Respitory Rate 20 05/15/2015 [facility] Heart Rate 76 05/15/2015 [facility] Respitory Rate 18 02/14/2015 [facility] Systolic (mm Hg) 105 02/14/2015 [facility] Diastolic (mm Hg) 67 02/14/2015 [facility] Heart Rate 56 02/14/2015 [facility] Heart Rate 57 02/14/2015 [facility] Temperature Oral (F) 98.3 F 02/14/2015 [facility] Respitory Rate 18 02/14/2015 [facility] Systolic (mm Hg) 134 02/14/2015 [facility] Diastolic (mm Hg) 80 02/14/2015 [facility] BMI Calculated 40.11 02/14/2015 [facility] Weight 112.727 02/14/2015 [facility] Temperature Oral (F) 98.6 F 02/14/2015 [facility] Height 167.64 cm 02/14/2015 [facility] Heart Rate 93 02/14/2015 [facility] Respitory Rate 18 02/14/2015 [facility] Systolic (mm Hg) 111 02/14/2015 [facility] Diastolic (mm Hg) 84 02/14/2015 [facility] Diastolic (mm Hg) 78 09/30/2014 [facility] Systolic (mm Hg) 122 09/30/2014 [facility] Temperature Oral (F) 98.3 F 09/30/2014 [facility] Respitory Rate 16 09/30/2014 [facility] Heart Rate 75 09/30/2014 [facility] Temperature Oral (F) 98.2 F 09/30/2014 [facility] Diastolic (mm Hg) 71 09/30/2014 [facility] Heart Rate 71 09/30/2014 [facility] Systolic (mm Hg) 131 09/30/2014 [facility] Respitory Rate 18 09/30/2014 [facility] Respitory Rate 18 09/30/2014 [facility] Heart Rate 76 09/30/2014 [facility] Diastolic (mm Hg) 87 09/30/2014 [facility] Temperature Oral (F) 98.4 F 09/30/2014 [facility] Height 167.64 cm 09/30/2014 [facility] Systolic (mm Hg) 127 09/30/2014 [facility] BMI Calculated 42.05 09/30/2014 [facility] Weight 118.182 09/30/2014 [facility] Encounters Location Location Details Encounter Type Encounter Number Reason For Visit Attending Provider ADM Date DC Date Status Source [facility] [place] [place] [facility] [id number] 05 Mario Gu 09/30/2014 09/30/2014 [facility] [id number] Juancho Malloy 02/14/2015 02/14/2015 [facility] [id number] 07 Temitopemary Green 05/15/2015 05/15/2015 [facility] [id number] Rosy Diaz 05/17/2015 05/17/2015 [facility] [id number] Hina Finley 07/04/2015 07/04/2015 [facility] [id number] 10 Rosy Diaz 10/13/2015 10/13/2015 [facility] [id number] Salvador Gutierrezana 01/17/2016 01/17/2016 [facility] [id number] Wilmar Mcgraw 02/24/2016 02/24/2016 [facility] Emergency [id number] Cristino Gilberteal 04/14/2016 04/14/2016 [facility] Emergency [id number] Jeannie Wahluyen 04/16/2016 04/16/2016 [facility] Emergency [id number] Rosalind Floydooqi 04/23/2016 04/23/2016 [facility] Emergency [id number] Jama Lynya 07/20/2016 07/20/2016 [facility] Outpatient [id number] STEVEN TAPIA 11/24/2016 [facility] Emergency [id number] Richard Owen 12/25/2016 12/26/2016 [facility] Observation [id number] Alec Vicente Jr 12/31/2016 12/31/2016 [facility] Emergency [id number] Isacc Melanie 01/12/2018 01/13/2018 [facility] Inpatient [id number] Oralia Floydooqui 05/17/2018 05/22/2018 [facility] [id number] 00 Tracie Stahl 06/24/2018 06/25/2018 [facility] Inpatient [id number] Barton Elham 08/24/2018 08/30/2018 [facility] Emergency [id number] Ruth Jay 09/06/2018 09/06/2018 [facility] Emergency [id number] Temitope Green 10/11/2018 10/11/2018 [facility] Inpatient [id number] Lexx Sauer 10/11/2018 10/12/2018 [facility] Inpatient [id number] Terrence Verdugo 12/03/2018 12/09/2018 [facility] Emergency [id number] Dante Martin 12/13/2018 12/13/2018 [facility] Inpatient [id number] Jo White 01/27/2019 01/31/2019 [facility] Inpatient [id number] Shabnam Campos 03/01/2019 03/08/2019 [facility] Observation [id number] Jose L Cunningham 03/23/2019 03/25/2019 [facility] Emergency [id number] Eliot Loudon 04/03/2019 04/04/2019 [facility] Emergency [id number] Eliot Bebeto 05/16/2019 05/16/2019 [facility] Emergency [id number] Karthik Hogan 05/25/2019 05/25/2019 [facility] Outpatient [id number] Edwardo Rodriguez 11/02/2019 11/03/2019 [facility] Observation [id number] Salim Jorge L 11/02/2019 11/04/2019 [facility] Inpatient [id number] Isa Michelleismael 03/23/2020 03/26/2020 [facility] Procedures Procedure Code Date Perfomer Comments Source Incision AND drainage [id number] 05/17/2018 [id number] Assessment and Plan Assessment and Plan Date Source Extracted from:Title: Clinical Document Author: Jed Huston MD Date: 03/25/20 INFECTIOUS DISEASES PROGRESS NOTE JED Wilkins M.D. REASON FOR ID FOLLOW UP: Abdominal wall cellulitis SUBJECTIVE: Seen and examined. Events noted. no fever ADMITTING DIAGNOSIS Cellulitis of abdominal wall (L03.311) Hidradenitis suppurativa (L73.2) Morbid (severe) obesity due to excess calories (E66.01) ASSESMENT: 34-year-old female presenting with Abdominal wall cellulitis Previous history of MRSA and MSSA both Acute pain management Morbid obesity Anxiety Multiple antibiotic allergies PLAN: Plan oral antibiotic minocycline 100 mg twice daily x10 days and home Patient may need suppressive antibiotic therapy with doxycycline 100 mg daily outpatient infectious disease to see Noncompliance is an issue with medical management plan Disposition Recommendation: ID follow up on discharge call Dr Huston [phone] fax no. [phone] ANTIBIOTICS: Vancomycin day 3 First Dose Antibiotic: vancomycin 1 gm INJ VL + sodium chloride 0.9% INJ 250 mL, 03/23/2020 11:23, 1000 mg, IVPB Administered by: Carly Lozano Antibiotics Administered Within 24 Hours: vancomycin 1 gm INJ VL + sodium chloride 0.9% INJ 250 mL, 03/23/2020 11:23, 1000 mg, IVPB Administered by: Carly Lozano vancomycin 1 gm INJ VL + sodium chloride 0.9% INJ 250 mL, 03/23/2020 19:54, 1000 mg, IVPB Administered by: Rosalba Flores vancomycin 1 gm INJ VL + sodium chloride 0.9% INJ 250 mL, 03/24/2020 03:58, 1000 mg, IVPB Administered by: Rosalba Flores VITAL SIGNS: Vitals Tmp(F) Pulse BP RR SpO2 FIO2 03/25 16:00 98.2 102 123/84 18 97 --- 03/25 12:00 98.0 95 121/75 1 8 97 --- 03/25 08:00 98.0 103 110/90 17 97 --- 03/25 04:00 98 112 131/90 16 97 --- 03/25 00:00 97.9 84 136/87 1 6 97 --- 24 Hr Tmax: 98.2F (36.78c) at 03/25 16:0 0 Vital Signs are the last 5 in the past 48 hours. ROS: see plan PHYSICAL EXAMINATION: GEN: Awake lying on bed/NAD HEENT: No thrush RESP: CTAB HEART: RRR S1&S2 GI: BS +ve NT/ND EXT: No edema SKIN: Redness in the belly area better FAUZIA: No focal deficit LINES: IVs ok LABORATORY DATA: Labs (Last four charted values) WBC 10.2 (MAR 23) Hgb 12.2 (MAR 23) Hct 36.5 (MAR 23) Plt 226 (MAR 23) Na 137 (MAR 25) 139 (MAR 23) K 4.1 (MAR 25) 3.7 (MAR 23) CO2 30 (MAR 25) 28 (MAR 23) Cl 104 (MAR 25) 107 (MAR 23) Cr 0.64 (MAR 25) 0.64 (MAR 23) BUN 10 (MAR 25) 11 (MAR 23) Glucose Random H 101 (MAR 25) 92 (MAR 23) Ca L 8.4 (MAR 25) L 8.2 (MAR 23) CULTURES: DATE/SOURCE/RESULT/ SENSITIVITIES C Blood Collected: 03/23/2020 07:20 Verified by: [facility] - 03/25/2020 11:31 Collected: 03/23/2020 07:20 Verified by: [facility] - 03/25/2020 11:31 No Growth At 2 Days Collected: 03/23/2020 07:20 Verified by: [facility] - 03/25/2020 11:31 No Growth At 2 Days Collected: 03/23/2020 07:20 Verified by: [facility] - 03/25/2020 11:31 IMAGING: Imaging Studies (last 36 hours) (none) Scheduled Meds (1): 03/23/20 vancomycin + Sodium Chloride 0. 9% IV 250 mL 1,000 mg IVPB [id number] 250 ml/hr This note was dictated with the use of [employer] speech recognition software. Please use best judgement when interpreting and excuse any vice president network errors. Extracted from:Title: Clinical Document Author: Jed Huston MD Date: 03/23/20 [facility] INFECTIOUS DISEASE CONSULTATION NOTE Nikole KATE M.D., M.D., M.D. REQUESTING PHYSICIAN: Isa Carbajal MD REASON FOR CONSULTATION: Abdominal wall cellulitis CHIEF COMPLAINT: Abdominal wall pain HISTORY OF PRESENT ILLNESS: The patient is a 34-year-old with past medical history of MRSA infection previously seen by my partner back in October 2019 was coming in because of 4 days of erythema around the lower abdominal wall. Patient was started on IV vancomycin. Fever T-max was 100.7. Pain is localized to the area. No other complaints. PMH Diverticulosis, gastric Gastritis PSH Incision AND drainage: 05/17/18 Cholecystectomy [facility] Employment/School Details: Status: Employed. Sexual Details: Sexually active: Yes. Sexual orientation: Straight or heterosexual. What is your current gender identity? Identifies as female. Uses condoms: No. History of sexual abuse: No. Sex Mutually Satisfying: Yes. Change in Libido: No. Self Breast Exam Yes. Last Pap Smear 2 years ago. Details: Sexually active: Yes. Alcohol Details: Never Details: Never, Alcohol use interferes with work or home: No. Exercise Details: Exercise duration: 0. Tobacco Details: Use: Never smoker. Tobacco smoke exposure: None. Did the Patient Smoke Cigarettes Anytime During the Last 365 Days? No. Cessation Counseling Provided? No. Details: Use: Never smoker. Tobacco smoke exposure: None. Did the Patient Smoke Cigarettes Anytime During the Last 365 Days? No. Cessation Counseling Provided? Yes. Details: Use: Never smoker. Type: Cigarettes. Stopped age 30 Years. Previous treatment: None. Ready to change: No. Household tobacco concerns: No. Tobacco smoke exposure: Lives with someone who smokes. Did the Patient Smoke Cigarettes Anytime During the Last 365 Days? Yes. Cessation Counseling Provided? Yes.; Comment(s): quit smoking in may Substance Abuse Details: Use: None. Details: Use: None. IV drug use: No. FH Father: [place] - Lung cancer Mother: [place] - Cancer of ovary Grandparent: [place] - Cancer of uterus; Lymphoma ALLERGIES: Allergies (5) Active Reaction Keflex None documented clindamycin None documented ciprofloxacin None documented Bactrim None documented penicillin None documented REVIEW OF SYSTEMS: 10 point review of system otherwise unre markable what mentioned in HPI CONSTITUTIONAL: Denies fever, chills, or night sweats. EYES: Denies blurry vision or eye pain. ENT: Denies ear pain, nasal drainage, or sore throat. RESPIRATORY: Denies shortness of breath or cough. CARDIOVASCULAR: Denies chest pain or palpitations. GASTROINTESTINAL: Denied nausea, vomiting, diarrhea, or abdominal pain. GENITOURINARY: Denies dysuria, frequency, or urgency. MUSCULOSKELETAL: No joint pain, muscle aches, or swelling. NEUROLOGIC: Denies any focal weakness or headaches. SKIN: No rashes or lesions. ENDOCRINE: Denies history of polyuria, polydipsia, heat or cold intolerance. HEME/LYMPH: Denies bleeding, bruising, or swollen glands. PSYCH: No depression or anxiety PHYSICAL EXAMINATION: Vitals Tmp(F) Pulse BP RR SpO2 FIO2 03/23 12:00 97.7 76 98/55 16 95 --- 03/23 08:00 98.2 86 117/69 1 6 94 --- 03/23 03:22 98.8 86 127/82 1 8 97 --- 24 Hr Tmax: 98.8F (37.11c) at 03/23 03:2 2 Vital Signs are the last 5 in the past 48 hours. Awake lying on bed NAD No thrush CTAB RRR S1&S2 BS +ve NT/ND No edema No Rash No focal deficit IVs ok MEDICATIONS: Scheduled Meds (1):vancomycin + Sodium Chloride 0.9% IV 250 mL Unscheduled Meds (1):vancomycin (Vancomycin Pharmacy Dosing) PRN Meds (7):Dextrose 50% in Water IV (Dextrose 50% Syringe (D50W)), Dextrose 50% in Water IV (Dextrose 50% Syringe (D50W)), acetaminophen-hydrocodone ([place] 10/325 oral tablet), acetaminophen, glucagon, hydromorphone (Dilaudid), ondansetron One Time Meds: None Continuous Infusions (1):Sodium Chloride 0.9% IV 1,000 mL (NS 1,000 mL) LABORATORY: AGAP: 7.7 mEq/L Low (03/23/20 07:20:00) Chloride Lvl: 107 mEq/L (03/23/20 07:20:00) CO2: 28 mEq/L (03/23/20 07:20:00) Potassium Lvl: 3.7 mEq/L (03/23/20 07:20:00) Sodium Lvl: 139 mEq/L (03/23/20 07:20:00) A/G Ratio: 0.7 (03/23/20 07:20:00) Albumin Lvl: 2.8 g/dL Low (03/23/20 07:20:00) Alk Phos: 75 unit/L (03/23/20 07:20:00) ALT: 16 unit/L (03/23/20 07:20:00) AST: 11 unit/L (03/23/20 07:20:00) B/C Ratio: 17 (03/23/20 07:20:00) Bili Total: 0.5 mg/dL (03/23/20 07:20:00) BUN: 11 mg/dL (03/23/20 07:20:00) Calcium Lvl: 8.2 mg/dL Low (03/23/20:20:00) Creatinine Lvl: 0.64 mg/dL (03/23/20 07:20:00) eGFR: 117 mL/min/1.73m2 (03/23/20:20:00) Globulin: 3.9 g/dL (03/23/20:20:00) Glucose Lvl: 92 mg/dL (03/23/20 07:20:00) Total Protein: 6.7 g/dL (03/23/20:20:00)Hct: 36.5 % (03/23/20:20:00) Hgb: 12.2 g/dL (03/23/20:20:00) MCH: 29.5 pg (03/23/20:20:00) MCHC: 33.3 g/dL (03/23/20:20:00) MCV: 88.6 fL (03/23/20:20:00) MPV: 8.3 fL (03/23/20:20:00) Platelet: 226 K/CMM (03/23/20:20:00) RBC: 4.12 M/CMM Low (03/23/20 07:20:00) RDW: 13.9 % (03/23/20 07:20:00) WBC: 10.2 K/CMM (03/23/20 07:20:00) RADIOLOGY: Imaging Studies (last 36 hours) (none) MICRO: No qualifying data available ASSESSMENT/PLAN: 34-year-old female presenting with Abdominal wall cellulitis Previous history of MRSA and MSSA both Acute pain management Morbid obesity Anxiety Plan IV vancomycin for now target vancomycin level between 10-15 Transition to oral antibiotic treatment at discharge We will follow Thanks for involving us in the care of this patient will follow and make further recommendation as event unfold This note was dictated with the use of [employer] speech recognition software. Please use best judgement when interpreting and excuse any vice president network errors. 03/26/2020 [facility] Extracted from:Title: Clinical Document Author: Oralia Walden MD Date: 11/04/19 ERROR Extracted from:Title: General surgery Author: Zena Hale MD Date: 11/02/19 1. Abdominal wallcellulitiswith possible abscess --Review of CT scan once loaded onto PAC S --Agree withempiric IV antibiotics --If with fluid collection on imaging, w ill proceed with incision and drainage. If the CT scan does not reveal any fluid collection,we will obtainultrasound. --Discussed with patient that given her morbid obesityand PCOS,I do not think unnecessaryincisionshould be done if not indicated as she will be with slow wound healing. Patient however report that she heals well. --Keep n.p.o. for now. She has had break fast this morning. --Pain control per primary 2. History of PCOS 3. Morbid obesity, BMI =44.48 4. History ofhidradenitis suppurativa --Management per primary Addendum by Zena Hale MD on 11/02/2019 14:12 CDT Addendum on 11/02/[address] scan of abdomen and pelvis from outside facility could more could not be loaded up tothe PACS systemand thereforeabdominal wall ultrasoundwas orderedand resulted. I have reviewed the radiologist'sreport as well as the ultrasound images. Patient is with a 1.9 cm fluid collectionon the right upper quadrant abdominal wall. 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 A 1.9 cm fluid collection issmalland could be managewith antibiotics alone without I&D. I gave her the options ofantibiotic management versus incision and drainagewith explanation thatwith ongoing pandemic,follow-up on the wound may not be possibleand she will have to packing andmanage the wound herself. Patient wantsto try antibioticsbut is concernedthatan effective antibiotic regimen may not be available as she is allergic to Bactrim, ciprofloxacin, clindamycin,penicillin and Keflexand she is withthe small abdominal wall abscess while on doxycycline. I have discussed this concern with the primary attending andtogether we have decided that consulting infectious diseasewill be a good option. With this, I will hold on any incision and drainage. We will await infectious diseaseevaluation recommendation. Okay to discharge from surgery standpoint withp.o. antibioticsand pain control when cleared by infectious disease. Extracted from:Title: History and Physical Author: Eric Vincent MD Date: 11/02/19 1.Abdominal wall abscess(L02.211) Ordered: Admit/Condition, 11/02/19 4:18:00 CDT, Status: Out Patient with Observation Services, Acute, Expected LOS: 1 Midnight, Eric Vincent MD, Admit MD Review/Approve Yes, Isolation: No Isolation/Standard Precautions, Abdominal wall abscess 2.Hidradenitis suppurativa(L73.2) 3.PCOS (polycystic ovarian syndrome)(E28.2) 4.Morbid obesity(E66.01) - IV vancomycin - pain control w tramadol - general surgery consult - check MRSA screening swab - resume home meds SCDs observation full code 11/04/2019 [facility] Extracted from:Title: ID Consultation No te Author: Mahesh Wilkins MD Date: 03/24/19 [facility] INFECTIOUS DISEASE CONSULTATION NOTE Nikole Bob M.D. M. Farhan Khan, M.D. Syed W. Hasan, M.D. REQUESTING PHYSICIAN: Dr. Cunningham REASON FOR CONSULTATION: Fever, right axillar nodule/pain HISTORY OF PRESENT ILLNESS: 33 yo female with history of obesity, de pression, polycystic ovary syndrome, recurrent skin infection, hidradenitis suppurativa presents to [facility] ED for fever and R axillary pain on 03/23. Patient was dc 03/07 for nodules in R axilla, L thigh/perineum, labia majora abscesses. Patient was seen by ID and gen surg, I&D of R breast abscess. Patient was continued on doxycycline at discharge due to multiple drug allergies for MSSA. Denies sob, productive cough, dysuria, diarrhea, other areas of discharge or rash. Labwork shows wbc 11.2, US of R axilla unremarkable. Patient afebrile while here, on morphine for pain control but no antipyretics. WBC stable today at 11.2k; Blood Cx drawn and in process. She feels about the same currently REVIEW OF SYSTEMS: CONSTITUTIONAL: Denies chills, or night sweats. EYES: Denies blurry vision or eye pain. ENT: No sore throat or neck pain. RESPIRATORY: Denies shortness of breath or cough. CARDIOVASCULAR: Denies chest pain or palpitations. GASTROINTESTINAL: Denied nausea, vomiting, diarrhea, or abdominal pain. GENITOURINARY: Denies dysuria MUSCULOSKELETAL: No joint pain NEUROLOGIC: No headaches or focal weakness. SKIN: No rashes or lesions. PSYCH: No depression or anxiety. PAST MEDICAL/SURGICAL HISTORY: Diverticulosis, gastric Gastritis Incision AND drainage: 05/17/18 Cholecystectomy SOCIAL HISTORY: Employment/School Details: Status: Employed. Sexual Details: Sexually active: Yes. Sexual orientation: Straight or heterosexual. What is your current gender identity? Identifies as female. Uses condoms: No. History of sexual abuse: No. Sex Mutually Satisfying: Yes. Change in Libido: No. Self Breast Exam Yes. Last Pap Smear 2 years ago. Details: Sexually active: Yes. Alcohol Details: Never Details: Never, Alcohol use interferes with work or home: No. Exercise Details: Exercise duration: 0. Tobacco Details: Use: Never smoker. Tobacco smoke exposure: None. Did the Patient Smoke Cigarettes Anytime During the Last 365 Days? No. Cessation Counseling Provided? No. Details: Use: Never smoker. Tobacco smoke exposure: None. Did the Patient Smoke Cigarettes Anytime During the Last 365 Days? No. Cessation Counseling Provided? Yes. Details: Use: Never smoker. Type: Cigarettes. Stopped age 30 Years. Previous treatment: None. Tobacco smoke exposure: Lives with someone who smokes. Did the Patient Smoke Cigarettes Anytime During the Last 365 Days? Yes. Cessation Counseling Provided? Yes.; Comment(s): quit smoking in may Substance Abuse Details: Use: None. Details: Use: None. IV drug use: No. FAMILY HISTORY: Father: [place] - Lung cancer Mother: [place] - Cancer of ovary Grandparent: [place] - Cancer of uterus; Lymphoma PHYSICAL EXAMINATION: Vitals Tmp(F) Pulse BP RR SpO2 FIO2 03/24 12:01 98.7 100 104/70 18 98 --- 03/24 08:35 98.0 89 107/76 1 8 99 --- 03/24 04:00 98.1 99 96/71 18 99 --- 03/24 00:30 97.9 91 117/83 1 8 100 --- 03/23 19:49 98.8 70 116/80 1 8 97 --- 24 Hr Tmax: 98.9F (37.17c) at 03/23 18:0 2 Vital Signs are the last 5 in the past 48 hours. GEN: No acute distress, conversant HEENT: Sclera white; onroom air LUNG: Clear to auscultation bilaterally HEART: RRR ABD: Soft; Non-distended; Non-tender EXT: No clubbing, cyanosis, or edema NEURO: Alert and oriented SKIN: 1 small tender papular/nodular area on right upper axillary area, no fluctuance or surrounding erythema PSYCH: Appropriate affect Lines, Tubes, and Drains: 03/23/2019 12:58 Peripheral Lines: Hand Right 22 gauge Over the needle catheter MEDICATIONS: Scheduled Meds (2): 03/23/19 morphine Sulfate 2 mg IVP Q4H 03/24/19 vancomycin + Sodium Chloride 0. 9% IV 500 mL 1.75 gm IVPB [id number] 250 ml/hr ALLERGIES: Allergies: Keflex, clindamycin, ciprofloxacin, Bactrim, penicillin LABORATORY (Reviewed): Labs (Last four charted values) WBC H 11.2 (MAR 24) H 11.2 (MAR 23) Hgb 13.7 (MAR 24) 14.2 (MAR 23) Hct 40.6 (MAR 24) 42.6 (MAR 23) Plt 252 (MAR 24) 271 (MAR 23) Na 142 (MAR 23) K 3.5 (MAR 23) CO2 25 (MAR 23) Cl 109 (MAR 23) Cr 0.79 (MAR 23) BUN 10 (MAR 23) Glucose Random H 118 (MAR 23) Ca 8.8 (MAR 23) Alk Phos: 86 unit/L (03/01/19 03:18:00) A/G Ratio: 0.9 (03/01/19 03:18:00) ALT: 20 unit/L (03/01/19 03:18:00) Albumin Lvl: 3.4 g/dL Low (03/01/19 03:18:00) Bili Total: 0.5 mg/dL (03/01/19 03:18:00) Total Protein: 7.2 g/dL (03/01/19 03:18:00) Globulin: 3.8 g/dL (03/01/19 03:18:00) AST: 12 unit/L (03/01/19 03:18:00) No qualifying data available. No qualifying data available. MICROBIOLOGY (Reviewed): IMAGING (Reviewed): 03/23/19 Right axilla U/S: IMPRESSION: No sonographic abnormality identified in the right axilla. ASSESSMENT and PLAN: 33 yo F with: Mild leukocytosis Reported fever Hiadrenitis suppurativa Right axillary inflammatory nodule likely causing above Multiple antibiotic (Bactrim, ciprofloxacin, clindamycin, penicillin, Keflex) allergies Recurrent skin infections Therapeutic drug monitoring Afebrile here Mild leukocytosis; no evidence of cellulitis or abscess in right axillary area, suspect tender nodule in right upper axillary area is secondary to underlying hiadrenitis - Can continue chronic doxycycline - Would add upon discharge tedizolid 200 mg PO daily x 7 days - F/u in ID clinic next week as planned, still have recommended patient to see sales branch manager as outpatient to rule out any other underlying possible immune issue leading to prior recurrent skin infections - Based on patient's history, [facility] patient is having first current skin inflammatory nodules from her hiadrenitis that then are getting secondarily infected by bacteria (such as MSSA): despite increased risk of infections in general from therapies such as anti-TNF agent (e.g. Humira), it may be beneficial to trial that type of therapy to try to stop nodules from forming (and thus stop any future nidus of her skin infections): however will defer this ultimately to patient's regular service mechanic Thank you for this consult. ID will follow. Ok from ID standpoint for discharge as well Extracted from:Title: History and Physical Author: Jose L Cunningham DO Date: 03/23/19 1.Abscess(L02.91) unclear if with another abscess, willcover with IV anbx, check US of R axilla Ordered: Admit/Condition, 03/23/19 14:49:00 CDT, Status: Out Patient with Observation Services, Acute, Expected LOS: 1 Midnight, Jose L Cunningham DO, Admit MD Review/Approve Yes, Isolation: No Isolation/Standard Precautions, Abscess | Leukocytosis | Failure of outpatient treatment 2.Failure of outpatient treatment(Z78.9) fever noted by patient buthas been afebrile here. cont to monitor Ordered: Admit/Condition, 03/23/19 14:49:00 CDT, Status: Out Patient with Observation Services, Acute, Expected LOS: 1 Midnight, Jose L Cunningham DO, Admit MD Review/Approve Yes, Isolation: No Isolation/Standard Precautions, Abscess | Leukocytosis | Failure of outpatient treatment 3.Leukocytosis(D72.829) mild, recheck in am Ordered: Admit/Condition, 03/23/19 14:49:00 CDT, Status: Out Patient with Observation Services, Acute, Expected LOS: 1 Midnight, Jose L Cunningham DO, Admit MD Review/Approve Yes, Isolation: No Isolation/Standard Precautions, Abscess | Leukocytosis | Failure of outpatient treatment amb pending repeat cbc in am, follow temp curve 03/25/2019 [facility] Extracted from:Title: Discharge Summary * Author: Shabnam Campos MD Date: 03/07/19 Discharge Plan Discharge Summary Plan Discharge Status: improved. Discharge instructions given: to patient. Discharge disposition: discharge to home self care. Prescriptions: continue same medications, written and given to patient. Diagnosis Abscess (NII30-MH L02.91, Working, Medical). Forunculosis (ZLS77-MU L02.92, Working, Medical). Hidradenitis axillaris (QNY62-HZ L73.2, Working, Medical). Obesity (XPB39-LS E66.9, Working, Medical). Obesity (UIY56-HC E66.9, Working, Medical). PCOS (polycystic ovarian syndrome) (QQJ54-UL E28.2, Working, Medical). PCOS (polycystic ovarian syndrome) (TCH14-RJ E28.2, Working, Medical). Sepsis (JIA62-BX A41.9, Working, Medical). Sepsis (YCJ22-VS A41.9, Working, Medical). Course Improving. Education and Follow-up Counseled: patient. Extracted from:Title: Clinical Document Author: Jed Huston MD Date: 03/07/19 INFECTIOUS DISEASES PROGRESS NOTE JED HUSTON M.D. REASON FOR ID FOLLOW UP: breast abscess ASSESMENT: 33 yo F with: Leukocytosis Reported fever Right upper axillary erythemaous nodules, right breast Staph aureus abscess s/p I&D 03/02 Hiadrenitis suppurativa Leukocytosis Multiple antibiotic (bactrim, ciprofloxacin, clindamycin, penicillin, Keflex) allergies Recurrent skin infections Therapeutic drug monitoring PLAN: Patient is okay for discharge from ID standpoint options are Zyvox 600 mg p.o. twice daily for 7 days and transition to p.o. doxy suppressive for long-term Other option is to start doxycycline 100 twice daily now and continue treatment and follow-up with Dr. Wilkins ANTIBIOTICS: vanco day 02/27 ID follow up on discharge call Dr Huston [phone] SUBJECTIVE: Seen and examined. Events noted. VITAL SIGNS: Vitals and Temp: Vitals Tmp(F) Pulse BP RR SpO2 FIO2 03/05 11:22 98.2 84 110/75 1 6 98 --- 03/05 08:03 98.3 70 113/74 1 8 99 --- 03/05 03:32 97.9 84 114/78 1 8 100 --- 03/05 00:06 98.1 80 113/77 1 8 100 --- 03/04 20:49 98.0 67 124/86 1 8 99 --- 24 Hr Tmax: 98.3F (36.83c) at 03/05 08:0 3 Vital Signs are the last 5 in the past 48 hours. ROS: otherwise unremarkable PHYSICAL EXAMINATION: Awake lying on bed NAD No thrush CTAB RRR S1&S2 BS+ve NT/ND No edema No Rash No focal defecit IVs ok LABORATORY DATA: Labs (Last four charted values) WBC 9.0 (MAR 04) 9.9 (MAR 03) H 12.6 (MAR 01) H 15.7 (FEB 28) Hgb 12.5 (MAR 04) 12.3 (MAR 03) 14.3 (MAR 01) 15.2 (FEB 28) Hct 36.5 (MAR 04) 36.0 (MAR 03) 42.5 (MAR 01) H 48.8 (FEB 28) Plt 195 (MAR 04) 209 (MAR 03) 265 (MAR 01) 283 (FEB 28) Na 143 (MAR 04) 143 (MAR 03) 141 (MAR 01) 136 (FEB 28) K 3.6 (MAR 04) 3.8 (MAR 03) 3.6 (MAR 01) 4.4 (FEB 28) CO2 28 (MAR 04) 26 (MAR 03) L 21 (MAR 01) L 20 (FEB 28) Cl H 110 (MAR 04) 109 (MAR 03) H 110 (MAR 01) 108 (FEB 28) Cr 0.62 (MAR 04) 0.61 (MAR 03) 0.75 (MAR 01) 0.98 (FEB 28) BUN 7 (MAR 04) 7 (MAR 03) 12 (MAR 01) 15 (FEB 28) Glucose Random H 103 (MAR 04) 91 (MAR 03) 95 (MAR 01) H 102 (FEB 28) Mg L 1.7 (MAR 04) 1.8 (MAR 01) Phos H 4.6 (MAR 04) Ca L 8.2 (MAR 04) 8.6 (MAR 03) L 7.9 (MAR 01) 9.1 (FEB 28) PT 14.4 (MAR 01) INR 1.14 (MAR 01) PTT H 38.3 (MAR 01) CULTURES: DATE/SOURCE/RESULT/ SENSITIVITIES MSSA IMAGING: Scheduled Meds (5): 03/01/19 enoxaparin 40 mg SUB-Q [id number] 03/02/19 spironolactone 50 mg PO Daily 03/01/19 vancomycin + Sodium Chloride 0. 9% IV 250 mL 1.5 gm IVPB [id number] 166.67 ml/hr 03/03/19 zinc sulfate 220 mg PO Daily 03/02/19 zolpidem (Ambien) 10 mg PO Bedt vero Extracted from:Title: ID Consultation Note Author: Mahesh Wilkins MD Date: 03/01/19 [facility] INFECTIOUS DISEASE CONSULTATION NOTE Nikole Bob M.D. M. Farhan Khan, M.D. Syed W. Hasan, M.D. REQUESTING PHYSICIAN: Dr. Candelario REASON FOR CONSULTATION: Recurrent skin infection HISTORY OF PRESENT ILLNESS: 33 yo F with PMH including obesity, depr ession, PCOS, hidrenaitis suppurativa,, recurrent skin infection, antibiotic allergies, who presented to [facility] 02/28/19 due to worsening right axillary/breast tenderness and new skin nodules. Patient had been recently hospitalized January 2019 for vulvar/groin infection that improved after discharge and completing oral antibiotic course. She also since then had newer furuncle on bilateral calf (one each) that had resolevd with doxycycline+Sivextro treatment by service mechanic that finished this past Thursday. She notes also undergoing frequent muporicin nasal decolonization, chlorhexidine and bleach baths as recommended by her service mechanic. In last few days though she noted new multiple erythematous erythema nodules in the right axillary area, in the chest and in the left leg. Had subjective fever at home so then came to hospital for further evaluation. Patient with temp of 99F here but also leukocytosis with WBC 15k. Cultures taken and empiric IV vancomycin was started. REVIEW OF SYSTEMS: CONSTITUTIONAL: (+)fever. 10 point ROS reviewed and negative excep t as above PAST MEDICAL/SURGICAL HISTORY: Diverticulosis, gastric Gastritis Incision AND drainage: 05/17/18 Cholecystectomy SOCIAL HISTORY: Employment/School Details: Status: Employed. Sexual Details: Sexually active: Yes. Sexual orientation: Straight or heterosexual. What is your current gender identity? Identifies as female. Uses condoms: No. History of sexual abuse: No. Sex Mutually Satisfying: Yes. Change in Libido: No. Self Breast Exam Yes. Last Pap Smear 2 years ago. Details: Sexually active: Yes. Alcohol Details: Never Details: Never, Alcohol use interferes with work or home: No. Exercise Details: Exercise duration: 0. Tobacco Details: Use: Never smoker. Tobacco smoke exposure: None. Did the Patient Smoke Cigarettes Anytime During the Last 365 Days? No. Cessation Counseling Provided? No. Details: Use: Never smoker. Tobacco smoke exposure: None. Did the Patient Smoke Cigarettes Anytime During the Last 365 Days? No. Cessation Counseling Provided? Yes. Details: Use: Never smoker. Type: Cigarettes. Stopped age 30 Years. Previous treatment: None. Tobacco smoke exposure: Lives with someone who smokes. Did the Patient Smoke Cigarettes Anytime During the Last 365 Days? Yes. Cessation Counseling Provided? Yes.; Comment(s): quit smoking in may Substance Abuse Details: Use: None. Details: Use: None. IV drug use: No. FAMILY HISTORY: Father: [place] - Lung cancer Mother: [place] - Cancer of ovary Grandparent: [place] - Cancer of uterus; Lymphoma PHYSICAL EXAMINATION: Vitals Tmp(F) Pulse BP RR SpO2 FIO2 03/01 11:33 98 83 134/83 18 99 --- 03/01 07:31 97.7 94 107/83 1 8 98 --- 03/01 05:08 98 80 110/80 18 98 --- 03/01 01:10 99 78 106/76 19 98 --- 03/01 00:28 99 88 115/71 20 100 --- 24 Hr Tmax: 99F (37.22c) at 03/01 01:10 Vital Signs are the last 5 in the past 48 hours. GEN: No acute distress, conversant HEENT: Sclera white; on room air LUNG: Clear to auscultation bilaterally HEART: RRR ABD: +Soft; Non-distended; Non-tender EXT: No clubbing, cyanosis, or edema NEURO: Alert and oriented SKIN: Right upper axillary scatterd/tender erythematous nodules; right breast ~2-3cm erythematous nodule/pustule tender to palpation; healing scabs on bilateral lower calf PSYCH: Appropriate affect Lines, Tubes, and Drains: 03/01/2019 00:15 Peripheral Lines: Antec ubital Right 20 gauge Over the needle catheter 02/28/2019 20:52 Peripheral Lines: Forea rm Right 22 gauge Over the needle catheter MEDICATIONS: Scheduled Meds (2): 03/01/19 enoxaparin 40 mg SUB-Q [id number] 03/01/19 vancomycin + Sodium Chloride 0. 9% IV 250 mL 1.5 gm IVPB [id number] 166.67 ml/hr ALLERGIES: Allergies: Keflex, clindamycin, ciprofloxacin, Bactrim, penicillin LABORATORY (Reviewed): Labs (Last four charted values) WBC H 12.6 (MAR 01) H 15.7 (FEB 28) Hgb 14.3 (MAR 01) 15.2 (FEB 28) Hct 42.5 (MAR 01) H 48.8 (FEB 28) Plt 265 (MAR 01) 283 (FEB 28) Na 141 (MAR 01) 136 (FEB 28) K 3.6 (MAR 01) 4.4 (FEB 28) CO2 L 21 (MAR 01) L 20 (FEB 28) Cl H 110 (MAR 01) 108 (FEB 28) Cr 0.75 (MAR 01) 0.98 (FEB 28) BUN 12 (MAR 01) 15 (FEB 28) Glucose Random 95 (MAR 01) H 102 (FEB 28) Mg 1.8 (MAR 01) Ca L 7.9 (MAR 01) 9.1 (FEB 28) PT 14.4 (MAR 01) INR 1.14 (MAR 01) PTT H 38.3 (MAR 01) Alk Phos: 86 unit/L (03/01/19 03:18:00) A/G Ratio: 0.9 (03/01/19 03:18:00) ALT: 20 unit/L (03/01/19 03:18:00) Albumin Lvl: 3.4 g/dL Low (03/01/19 03:18:00) Bili Total: 0.5 mg/dL (03/01/19 03:18:00) Total Protein: 7.2 g/dL (03/01/19 03:18:00) Globulin: 3.8 g/dL (03/01/19 03:18:00) AST: 12 unit/L (03/01/19 03:18:00) MICROBIOLOGY (Reviewed): IMAGING (Reviewed): ASSESSMENT and PLAN: 33 yo F with: Leukocytosis Reported fever Right upper axillary erythemaous nodules, suspected right breast developing furuncle/abscess Hiadrenitis suppurativa Leukocytosis Multiple antibiotic (bactrim, ciprofloxacin, clindamycin, penicillin, Keflex) allergies Recurrent skin infections Therapeutic drug monitoring - F/u cultures - Continue empiric IV vancomycin for now , check trough before 4th dose and target trough 10-20 - F/u surgery input/need for drainage, w ould request culture and anaerobic culture sent off from any purulent drainage - F/u outpatient service mechanic after dis charge; also may need to see sales branch manager as outpatient for immunodeficiency workup given recurring skin infections despite other ongoing management for other chronic conditions Thank you for this consult. ID will follow. Extracted from:Title: History and Physical Author: Chin Lubin MD Date: 02/28/19 1.Hidradenitis axillaris(L73.2) History of MRSA infection. Vancomycin. Blood culture. 2.Forunculosis(L02.92) Plan is #1. 3.Sepsis(A41.9) Leukocytosis and tachycardia on initial presentation. Blood culture. IV fluid. Ordered: Admit/Condition, 02/28/19 23:03:00 CDT, Status: Out Patient with Observation Services, Acute, Expected LOS: 1 Midnight, Chin Lubin MD, Admit Review/Approve Yes, Isolation: No Isolation/Standard Precautions, Abscess | Sepsis 4.PCOS (polycystic ovarian syndrome)(E28.2) Inactive. 5.Obesity(E66.9) Counseling. Lovenox SQ. Observation 03/08/2019 [facility] Extracted from:Title: Clinical Document Author: Jed Huston MD Date: 01/30/19 INFECTIOUS DISEASES PROGRESS NOTE Jed Huston M.D. [facility] [phone] Reason For Follow up: Hidradenitis SUBJECTIVE: Seen and examined. Events noted. Allergies (5) Active Reaction Bactrim None Documented ciprofloxacin None Documented clindamycin None Documented Keflex None Documented penicillin None Documented VITAL SIGNS: Vitals Tmp(F) Pulse BP RR SpO2 FIO2 01/29 11:10 98.9 88 123/80 - - 98 --- 01/29 07:01 98.3 86 120/80 - - 99 --- 01/29 03:21 98.5 90 115/82 1 6 98 --- 01/28 23:31 98.6 82 107/73 1 6 99 --- 01/28 19:17 98.6 76 130/83 1 6 98 --- 24 Hr Tmax: 98.9F (37.17c) at 01/29 11:1 0 Vital Signs are the last 5 in the past 48 hours. Input/Output Record In Out Bal 01/28 24hr Tot [phone] 01/27 24hr Tot [phone] Lines and catheters: MEDICATIONS: Scheduled Meds (6): 01/27/19 amphetamine-dextroamphetamine ( Adderall) 30 mg PO BID 01/27/19 enoxaparin (Lovenox) 40 mg SUB- Q [id number] 01/27/19 non-formulary (*Please bring pt 's own adderall to pharmacy for label*) MISC QSHIFT 01/28/19 spironolactone 50 mg PO Daily 01/27/19 vancomycin + Sodium Chloride 0. 9% IV 250 mL 1,000 mg IVPB [id number] 250 ml/hr 01/27/19 zolpidem 5 mg PO Bedtime ROS: NAD PHYSICAL EXAMINATION: GEN: awake HEENT: Perrla, EOMI, NECK: supple HEART: RRR S1 and S2 no murmur or gallop LUNG: CTAB GI: soft NT/ND BS +ve EXT: edema LABORATORY DATA: Labs (Last four charted values) WBC 8.1 (JAN 29) H 12.2 (JAN 27) Hgb 12.5 (JAN 29) 13.4 (JAN 27) Hct 38.5 (JAN 29) 41.4 (JAN 27) Plt 244 (JAN 29) 253 (JAN 27) Na 142 (JAN 27) K 3.9 (JAN 27) CO2 24 (JAN 27) Cl 108 (JAN 27) Cr 0.75 (JAN 27) BUN 14 (JAN 27) Glucose Random 91 (JAN 27) Ca 8.5 (JAN 27) CULTURES: DATE/SOURCE/RESULT/ SENSITIVITIES: IMAGING: ASSESMENT AND PLAN: Assessment: 33-year-old female with 1. Hidradenitis 2. Furunculosis 3. Polycystic ovarian syndrome 4. Morbid obesity 5. Multiple drug allergies 6. History of MRSA infection Plan: Patient seen and evaluated. so far no evidence of MRSA Lesions are draining. Cultures are positive for gram-negative leeanna cont Cefepime patient reported no issues with cefepime she has tolerated in the past. ANTIMICROBIALS: vancomycin plus cefepime day 3 Extracted from:Title: Clinical Document Author: Oralia Walden MD Date: 01/27/19 INFECTIOUS DISEASES CONSULTATION NOTE Oralia Walden M.D. Attending: Dhara Prater MD Service: Internal Medicine Code status: Full Code Reason for Admission: CELLULITIS Working DRG: Isolation: No Isolation/Standard Precautions Consulting Physicians: Oralia Walden MD Office: Service: Infectious Disease HPI: This is a 33-year-old female with a known past medical history significant for morbid obesity and depression patient has a polycystic ovarian syndrome who presented to our ER with complaints of thigh and pain as well as draining folliculitis from her perineum. She reported that she has recurrent folliculitis and MRSA infection in the past she is allergic to multiple antibiotics including Bactrim Cipro clindamycin Keflex and penicillin she has been doing decolonization protocol and still having recurrent infection. Infectious diseases consultation was called to give recommendation. PAST MEDICAL HISTORY: Morbid obesity, polycystic ovarian syndrome, depression. History of hidradenitis SURGICAL HISTORY: Incision AND drainage: 05/17/18 Cholecystectomy FAMILY HISTORY: Father: [place] - Lung cancer Mother: [place] - Cancer of ovary Grandparent: [place] - Cancer of uterus; Lymphoma Allergies (5) Active Reaction Keflex None documented clindamycin None documented ciprofloxacin None documented Bactrim None documented penicillin None documented SOCIAL HISTORY: Employment/School Details: Status: Employed. Sexual Details: Sexually active: Yes. Sexual orientation: Straight or heterosexual. What is your current gender identity? Identifies as female. Uses condoms: No. History of sexual abuse: No. Sex Mutually Satisfying: Yes. Change in Libido: No. Self Breast Exam Yes. Last Pap Smear 2 years ago. Details: Sexually active: Yes. Alcohol Details: Never Details: Never, Alcohol use interferes with work or home: No. Exercise Details: Exercise duration: 0. Tobacco Details: Use: Never smoker. Tobacco smoke exposure: None. Did the Patient Smoke Cigarettes Anytime During the Last 365 Days? No. Cessation Counseling Provided? Yes. Details: Use: Never smoker. Type: Cigarettes. Stopped age 30 Years. Previous treatment: None. Tobacco smoke exposure: Lives with someone who smokes. Did the Patient Smoke Cigarettes Anytime During the Last 365 Days? Yes. Cessation Counseling Provided? Yes.; Comment(s): quit smoking in may Substance Abuse Details: Use: None. Details: Use: None. IV drug use: No. ROS: GENERAL: No change in appetite, energy or weight. No fever, chills or sweats. HEENT: No auditory or visual complaints. No tinnitus. No pharyngeal complaints RESPIRATORY: [place], SOB. CARDIOVASCULAR: No chest pain or pressure. No palpitations GASTROINTESTINAL: No dysphagia, odynophagia, heartburn, diarrhea or constipation. No nausea or vomiting. MUSCULOSKELETAL: No myalgias, arthralgias, joint swelling. NEUROLOGICAL: No vertigo or disturbance of balance or coordination.No motor or sensory complaints. No headache. GENITOURINARY: No dysuria, urgency or urinary frequency. No incontinence. DERMATOLOGIC: Multiple folliculitis and darden in the thigh perineum and up on the mons pubis area. As well as in the right axilla. MEDICATIONS: Scheduled Meds (6): 01/27/19 amphetamine-dextroamphetamine ( Adderall) 30 mg PO BID 01/27/19 enoxaparin (Lovenox) 40 mg SUB- Q [id number] 01/27/19 non-formulary (*Please bring pt 's own adderall to pharmacy for label*) MISC QSHIFT 01/28/19 spironolactone 50 mg PO Daily 01/27/19 vancomycin + Sodium Chloride 0. 9% IV 250 mL 1,250 mg IVPB [id number] 166.67 ml/hr 01/27/19 zolpidem 5 mg PO Bedtime VITAL SIGNS: Vitals Tmp(F) Pulse BP RR SpO2 FIO2 01/27 15:50 98.4 79 111/77 1 8 100 --- 01/27 11:13 97.8 80 116/74 1 8 99 --- 01/27 07:32 97.8 87 113/81 1 8 99 --- 01/27 05:20 98.1 70 128/96 1 8 99 --- 01/27 04:20 ---- 66 110/60 1 8 100 --- 24 Hr Tmax: 98.7F (37.06c) at 01/27 01:5 6 Vital Signs are the last 5 in the past 48 hours. PHYSICAL EXAMINATION: GENERAL: Well-developed, in no apparent distress. SKIN: Warm and dry with multiple folliculitis and inner thigh near perineum near the mons pubis. Right axilla the mons pubis lesion is draining. HEENT: Head is normocephalic and atraumatic. PERRLA, EOMI, NECK: Supple. No carotid bruits. No lymphadenopathy or thyromegaly. CHEST: Symmetrical with equal expansion. LUNGS: CTA HEART: RRR, no murmurs. . GASTROINTESTINAL: Bowel sounds are normal. Soft, NT, ND. No guarding or rebound tenderness. EXTREMITIES: edema . LABS: Labs (Last four charted values) WBC H 12.2 (JAN 27) Hgb 13.4 (JAN 27) Hct 41.4 (JAN 27) Plt 253 (JAN 27) Na 142 (JAN 27) K 3.9 (JAN 27) CO2 24 (JAN 27) Cl 108 (JAN 27) Cr 0.75 (JAN 27) BUN 14 (JAN 27) Glucose Random 91 (JAN 27) Ca 8.5 (JAN 27) CULTURES: DATE/SOURCE/RESULT/ SENSITIVITIES: IMAGING: ASSESSMENT AND PLAN: 33-year-old female with 1. Hidradenitis 2. Furunculosis 3. Polycystic ovarian syndrome 4. Morbid obesity 5. Multiple drug allergies 6. History of MRSA infection RECOMMENDATIONS: Patient will be continued on IV vancomycin. As per infectious disease standpoint local cultures has been obtained due to her multiple drug allergies we do not have much option discharge antibiotics will be minocycline versus Zyvox. We will continue to monitor closely pharmacy consultation for vancomycin dosing. We will continue to follow. Thank you for providing me the opportunity to take care of this patient. Extracted from:Title: History and Physical Author: Sanjeev Frederick MD Date: 01/27/19 33year-old female patient admitted for m anagement of thigh cellulitis 1.Cellulitis(L03.90) We will have this patient continued on broad-spectrum antibiotic of vancomycin pending further review. Will evaluate furtherwith culture reports. Ordered: Admit/Condition, 01/27/19 4:15:00 CDT, Status: Out Patient with Observation Services, Acute, Expected LOS: 1 Midnight, Alec Escobar MD, Admit MD Review/Approve Yes, Isolation: No Isolation/Standard Precautions, Cellulitis 2.PCOS (polycystic ovarian syndrome)(E28.2) We will continue routine supportive therapy. 3.Depression(F32.9) We will continue antidepressant meds. Lovenox for DVT prophylaxis. We will manage her cellulitis. Expected to stay atleast 2 midnights. Time taken for H&P is 40 min. 01/31/2019 [facility] Extracted from:Title: ID Progress Note Author: Mahesh Wilkins MD Date: 12/09/18 [facility] INFECTIOUS DISEASES PROGRESS NOTE Nikole Bob M.DM. Farhan Khan, M.D. Syed W. Hasan, M.D. REASON FOR CONSULTATION: Recurrent skin infection/left thigh abscess, Hx of MRSA SUBJECTIVE: INTERVAL HISTORY: No acute events. Vomited earlier today after trying to eat after not having much appetite lately. Still notes significant pain/localized swelling just inferior to where current rebeca drain in left groin is at. ROS: CONST: No fever or chills OBJECTIVE: PHYSICAL EXAMINATION: Vitals Tmp(F) Pulse BP RR SpO2 FIO2 12/09 11:07 98.5 106 124/85 18 94 --- 12/09 07:39 98.4 97 117/80 1 8 95 --- 12/09 04:30 98.7 87 108/75 1 9 98 --- 12/08 22:12 98.5 105 118/84 18 99 --- 12/08 19:21 98.8 81 119/84 1 8 98 --- 24 Hr Tmax: 98.8F (37.11c) at 12/08 19:2 1 Vital Signs are the last 5 in the past 48 hours. GEN: No acute distress HEENT: Anicteric sclerae; on room air LUNG: Clear to auscultation bilaterally; SKIN: Left groin rebeca drain in place, focal indurated+/- fluctuant and very tender 2cm diameter area just inferior to it Lines, Tubes, and Drains: 12/08/2018 22:35 Peripheral Lines: Forea rm Left 22 gauge Over the needle catheter 12/06/2018 20:00 Surgical Drains: Penros e Drain inner thigh Left MEDICATIONS: Scheduled Meds (4): 12/03/18 enoxaparin 40 mg SUB-Q [id number] 12/05/18 spironolactone 50 mg PO Daily 12/08/18 vancomycin + Sodium Chloride 0. 9% IV 100 mL 500 mg IVPB ABXQ8H 100 ml/hr 12/04/18 zolpidem (Ambien) 10 mg PO Bedt vero LABORATORY (All labs have been reviewed.): Labs (Last four charted values) WBC 9.7 (DEC 08) 9.8 (DEC 07) 8.4 (DEC 06) 9.8 (DEC 05) Hgb L 11.9 (DEC 08) L 11.5 (DEC 07) L 11.3 (DEC 06) L 11.1 (DEC 05) Hct L 35.3 (DEC 08) L 34.8 (DEC 07) L 34.3 (DEC 06) L 33.3 (DEC 05) Plt 278 (DEC 08) 274 (DEC 07) 240 (DEC 06) 217 (DEC 05) Na 143 (DEC 08) 143 (DEC 07) 139 (DEC 06) 140 (DEC 05) K 3.8 (DEC 08) 3.8 (DEC 07) 3.8 (DEC 06) 3.8 (DEC 05) CO2 29 (DEC 08) 31 (DEC 07) 27 (DEC 06) 26 (DEC 05) Cl 106 (DEC 08) 106 (DEC 07) 106 (DEC 06) 108 (DEC 05) Cr 0.83 (DEC 08) 0.69 (DEC 07) L 0.49 (DEC 06) 0.61 (DEC 05) BUN L 6 (DEC 08) L 6 (DEC 07) 8 (DEC 06) 8 (DEC 05) Glucose Random 98 (DEC 08) H 116 (DEC 07) 99 (DEC 06) H 127 (DEC 05) Mg 1.9 (DEC 04) Ca 8.8 (DEC 08) L 8.1 (DEC 07) L 8.2 (DEC 06) L 8.1 (DEC 05) PT 13.9 (DEC 06) H 16.0 (DEC 04) INR 1.09 (DEC 06) H 1.31 (DEC 04) PTT H 44.5 (DEC 04) MICROBIOLOGY: All cultures have been reviewed. IMAGING/TESTS: Recent studies have been reviewed. ASSESSMENT and PLAN: 32-year-old female presenting with Complex skin and soft tissue infection left leg Early thigh abscess s/p I&D 12/06 Hx of MRSA infection Leukocytosis Hidrenitis suppurativa Multiple antibiotic allergies Therapeutic drug monitoring Afebrile. 12/04 Blood Cx NGTD 12/06 intraop abscess Cx still with only Staph aureus (IP) - Given patient has focal tenderness and indurated/possible fluctuant area near left groin drain, would f/u surgery input as to whether or not needing possible further I&D - Continue IV vancomycin while inpatient (appreciate vancomycin pharmacy dosing recs) - If patient otherwise improving/medical ly cleared, plan to finish therapy upon discharge with tedizolid 200mg PO daily for 6 day course (which is full treatment course with that medication) - F/u ID clinic in 1 week after discharg e, also plan patient to follow-up with her service mechanic as outpatient routinely Above discussed with hospitalist Dr. Mendoza CURRENT ANTIMICROBIALS: IV vancomycin day # 6 Extracted from:Title: Clinical Document Author: Tracie Stahl MD Date: 12/06/18 Post Operative Procedure Note A complete detailed Operative Report must follow within 24 hours of the procedure. Pre-Operative Diagnosis: Left thigh abscess x 2 Post-Operative Diagnosis: Same Surgeon/Endoscopist/Physician(s): Raoul Stahl Oracle Applications Developer(s): None Procedure Performed: Incision and drainage of left thigh abscess x 2 Estimated Blood Loss: Minimal Specimens Removed: Cultures taken Findings of the Procedure: Inner thigh abscess cavity and small upper thigh abscess Dictation ID for complete detailed Operative Report:: [id number] Extracted from:Title: Clinical Document Author: Jed Huston MD Date: 12/04/18 [facility] INFECTIOUS DISEASE CONSULTATION NOTE JED HUSTON M.D. REQUESTING PHYSICIAN: Dr Song REASON FOR CONSULTATION: CSSTI Multiple abx allergy CHIEF COMPLAINT: Abscess on left leg HISTORY OF PRESENT ILLNESS: Patient is a 32-year-old female with past medical history significant for PCO S hidradenitis recurrent skin infection present to ER with complaint of left side swelling and fever. Patient had multiple of these infections in the past. She had an antibiotic allergies. Pain in the left hand and thigh area. She was started on IV antibiotic therapy. And we have been asked to see for further management. Emergency room initial vitals shows a temp of 99.8 heart rate of 128 respiration 20 blood pressure 133/84. Labs significant for leukocytosis abdominal CT's epididymis edema and skin thickening in the anterior medial left thigh suggestive of cellulitis with with phlegmon no abscess PMH Diverticulosis, gastric Gastritis PSH Incision AND drainage: 05/17/18 Cholecystectomy SH Sexual Details: Sexually active: Yes. Alcohol Details: Never, Alcohol use interferes with work or home: No. Tobacco Details: Use: Never smoker. Type: Cigarettes. Stopped age 30 Years. Previous treatment: None. Tobacco smoke exposure: Lives with someone who smokes. Did the Patient Smoke Cigarettes Anytime During the Last 365 Days? Yes. Cessation Counseling Provided? Yes.; Comment(s): quit smoking in may Substance Abuse Details: Use: None. IV drug use: No. FH Father: [place] - Lung cancer Mother: [place] - Cancer of ovary Grandparent: [place] - Cancer of uterus; Lymphoma ALLERGIES: Allergies (5) Active Reaction Keflex None documented clindamycin None documented ciprofloxacin None documented Bactrim None documented penicillin None documented REVIEW OF SYSTEMS: CONSTITUTIONAL: Denies fever, chills, or night sweats. EYES: Denies blurry vision or eye pain. ENT: Denies ear pain, nasal drainage, or sore throat. RESPIRATORY: Denies shortness of breath or cough. CARDIOVASCULAR: Denies chest pain or palpitations. GASTROINTESTINAL: Denied nausea, vomiting, diarrhea, or abdominal pain. GENITOURINARY: Denies dysuria, frequency, or urgency. MUSCULOSKELETAL: No joint pain, muscle aches, or swelling. NEUROLOGIC: Denies any focal weakness or headaches. SKIN: No rashes or lesions. ENDOCRINE: Denies history of polyuria, polydipsia, heat or cold intolerance. HEME/LYMPH: Denies bleeding, bruising, or swollen glands. PSYCH: No depression or anxiety PHYSICAL EXAMINATION: Vitals Tmp(F) Pulse BP RR SpO2 FIO2 12/04 15:06 98.6 97 115/79 1 6 97 --- 12/04 11:14 98.6 96 103/72 1 4 99 --- 12/04 07:33 98.5 89 110/74 1 6 99 --- 12/04 03:51 98.3 102 101/68 18 97 --- 12/03 23:31 97.7 86 104/73 1 8 100 --- 24 Hr Tmax: 100.0F (37.78c) at 12/03 18: 23 Vital Signs are the last 5 in the past 48 hours. Awake lying on bed NAD No thrush CTAB RRR S1&S2 BS+ve NT/ND No edema No Rash No focal defecit IVs ok MEDICATIONS: Scheduled Meds (4):enoxaparin, spironolactone, vancomycin + Sodium Chloride 0.9% IV 250 mL, zolpidem (Ambien) Unscheduled Meds (1):vancomycin (Vancomycin Pharmacy Dosing) PRN Meds (23):Dextrose 50% in Water IV (Dextrose 50% Syringe), Dextrose 50% in Water IV (Dextrose 50% Syringe), acetaminophen, bisacodyl, calcium gluconate + Sodium Chloride 0.9% IV 100 mL, calcium gluconate + Sodium Chloride 0.9% IV 100 mL, glucagon, hydromorphone, magnesium oxide, magnesium sulfate, magnesium sulfate, melatonin, ondansetron, potassium chloride, potassium chloride, potassium chloride, potassium phosphate + Sodium Chloride 0.9% IV 250 mL, potassium phosphate + Sodium Chloride 0.9% IV 250 mL, potassium phosphate-sodium phosphate (potassium phosphate-sodium phosphate 250 mg-280 mg-160 mg oral powder for reconstitution), sodium chloride (Saline Flush 0.9%), sodium phosphate + Dextrose 5% in Water IV 250 mL, sodium phosphate + Dextrose 5% in Water IV 250 mL, tramadol One Time Meds (6):(Completed) Sodium Chloride 0.9% IV (Sodium Chloride 0.9% (Bolus) IV), (Completed) morphine Sulfate, (Completed) morphine Sulfate, (Completed) ondansetron, (Deleted) vancomycin + Sodium Chloride 0.9% IV 500 mL, (Completed) vancomycin Continuous Infusions (1):Lactated Ringers Injection IV 1,000 mL (LR IV 1,000 mL) LABORATORY: AGAP: 10.7 mEq/L (12/04/18 01:52:00) Chloride Lvl: 106 mEq/L (12/04/18:52:00) CO2: 26 mEq/L (12/04/18 01:52:00) Potassium Lvl: 3.7 mEq/L (12/04/18:52:00) Sodium Lvl: 139 mEq/L (12/04/18 01:52:00) A/G Ratio: 0.7 (12/04/18 01:52:00) Albumin Lvl: 2.8 g/dL Low (12/04/18:52:00) Alk Phos: 72 unit/L (12/04/18 01:52:00) ALT: 29 unit/L (12/04/18 01:52:00) AST: 13 unit/L (12/04/18 01:52:00) B/C Ratio: 14 (12/04/18 01:52:00) Bili Total: 0.7 mg/dL (12/04/18 01:52:00) BUN: 8 mg/dL (12/04/18 01:52:00) Calcium Lvl: 8.4 mg/dL Low (12/04/18:52:00) Creatinine Lvl: 0.57 mg/dL (12/04/18 01:52:00) eGFR: 123 mL/min/1.73m2 (12/04/18 01:52:00) Globulin: 4.1 g/dL (12/04/18:52:00) Glucose Lvl: 107 mg/dL High (12/04/18 01:52:00) Total Protein: 6.9 g/dL (12/04/18 01:52:00)Hct: 36.2 % (12/04/18 01:52:00) Hgb: 12.1 g/dL (12/04/18 01:52:00) MCH: 28.7 pg (12/04/18 01:52:00) MCHC: 33.4 g/dL (12/04/18 01:52:00) MCV: 86 fL (12/04/18 01:52:00) MPV: 8.5 fL (12/04/18 01:52:00) Platelet: 209 K/CMM (12/04/18 01:52:00) RBC: 4.2 M/CMM (12/04/18 01:52:00) RDW: 13.3 % (12/04/18 01:52:00) WBC: 13.7 K/CMM High (12/04/18 01:52:00) RADIOLOGY: Reviewed MICRO: Previous MRSA ASSESSMENT/PLAN: This is a 32-year-old female presenting with Complex skin and soft tissue infection left leg Early thigh abscess MRSA infection Leukocytosis multiple antibiotic allergies Plan IV antibiotic therapy for now Follow with culture results and make further recommendation as he went unfold possible oral Zyvox at home Extracted from:Title: History and Physical Author: Chin Lubin MD Date: 12/03/18 1.Sepsis(A41.9) Blood culture. Vancomycin. Lactate. IV hydration. 2.Cellulitis of left thigh(L03.116) History of recurrent skin infection and hidradenitis suppurative. Blood culture. Vancomycin IV. Ordered: Admit/Condition, 12/03/18 20:46:00 CDT, Status: Out Patient with Observation Services, Acute, Expected LOS: 1 Midnight, Chin Lubin MD, Admit MD Review/Approve Yes, Isolation: No Isolation/Standard Precautions, Cellulitis of left thigh 3.PCOS (polycystic ovarian syndrome)(E28.2) By history. No intervention. Lovenox subcutaneous Observation. Acute. 12/09/2018 [facility] Extracted from:Title: ID Consultation No te Author: Mahesh Wilkins MD Date: 10/11/18 [facility] INFECTIOUS DISEASE CONSULTATION NOTE Mahesh Wilkins M.D. Zoey Hartley M.D. Nikole Claros M.D. REQUESTING PHYSICIAN: Dr. Sauer REASON FOR CONSULTATION: Recurrent skin infection HISTORY OF PRESENT ILLNESS: 32 yo F with PMH including PCOS, hiadren itis suppurativa, recurrent skin lesion/boil on abdomen/thigh with MSSA superinfection , multiple antibiotic allergies who presented to [facility] 10/11/18 due to worsening/recurrent painful skin lesion. I had seen patient before for similar issues in past several months- patient has been dealing with this for past year. After Aug 2018 hospitalization she had finished IV vancomycin course as well as followed with service mechanic who had diagnosed her with hiadrenitis suppurative and done lancing of recurrent painful lesion (09/20 LLQ abdomen, 10/05 left thigh which was followed with minocycline oral therapy). Had not started other systemic anti-biologic therapy (such as Humira) due to concern for ongoing infectious process. Patient notes that despite lancing and minocycline therapy lesions remain painful/swollen and with some purulent drainage from left thigh lesion so came to hospital. Upon presentation patient afebrile (Tmax 99.3F) and without leukocytosis. Empiric IV vancomycin was started. Patient denies antidepressant or similar class of medication use currently. REVIEW OF SYSTEMS: 10 point ROS reviewed and negative excep t as above PAST MEDICAL/SURGICAL HISTORY: Diverticulosis, gastric Gastritis Incision AND drainage: 05/17/18 Cholecystectomy SOCIAL HISTORY: Alcohol Details: Never, Alcohol use interferes with work or home: No. Tobacco Details: Use: Former smoker. Type: Cigarettes. Stopped age 30 Years. Previous treatment: None. Tobacco smoke exposure: Lives with someone who smokes. Did the Patient Smoke Cigarettes Anytime During the Last 365 Days? Yes. Cessation Counseling Provided? Yes.; Comment(s): quit smoking in may Substance Abuse Details: Use: None. IV drug use: No. FAMILY HISTORY: Father: [place] - Lung cancer Mother: [place] - Cancer of ovary Grandparent: [place] - Cancer of uterus; Lymphoma PHYSICAL EXAMINATION: Vitals Tmp(F) Pulse BP RR SpO2 FIO2 10/11 11:29 98.5 105 122/84 17 98 --- 02/25 07:48 98.1 71 97/63 18 98 --- 10/11 04:48 99.3 68 109/71 1 6 100 --- 24 Hr Tmax: 99.3F (37.39c) at 10/11 04:4 8 Vital Signs are the last 5 in the past 48 hours. GEN: No acute distress, obese HEENT: Sclera white; LUNG: Clear to auscultation bilaterally HEART: RRR; +S1/S2; No murmurs, rubs, or gallops ABD: Soft; Non-distended; Non-tender EXT: No edema NEURO: Alert and oriented SKIN: No diffuse rash; left abdominal centimeter healing ulceration with induration/tenderness/mild erythema as well as on left inner thigh PSYCH: Appropriate affect (no lines, tubes, drains information documented) MEDICATIONS: Scheduled Meds (3): 10/11/18 docusate 100 mg PO BID 10/11/18 enoxaparin (Lovenox) 40 mg SUB- Q [id number] 10/11/18 linezolid 600 mg PO [id number] ALLERGIES: Allergies: Keflex, clindamycin, ciprofloxacin, Bactrim, penicillin LABORATORY (Reviewed): No qualifying data available Alk Phos: 81 unit/L (10/10/18 21:34:00) A/G Ratio: 0.8 (10/10/18 21:34:00) ALT: 24 unit/L (10/10/18 21:34:00) Albumin Lvl: 3.5 g/dL (10/10/18 21:34:00) Bili Total: 0.3 mg/dL (10/10/18 21:34:00) Total Protein: 8 g/dL (10/10/18 21:34:00) Globulin: 4.5 g/dL High (10/10/18 21:34:00) AST: 17 unit/L (10/10/18 21:34:00) MICROBIOLOGY (Reviewed): IMAGING (Reviewed): ASSESSMENT and PLAN: 32 yo F with: Painful/recurrent skin lesion with drainage on abdomen/left thigh Hiadrenitiis suppurativa Hx of MSSA skin abscess Obesity Therapeutic drug monitoring Multiple drug allergies (Bactrim, ciprofloxacin, clindamycin, Keflex, penicillin) with hives/throat swelling reaction Low grade elevated temp yesterday to 99.3F No leukocytosis No active purulence, mildly erythemaous/tender areas in left thigh/left lower abdomen Discussed with patient if active current skin superinfection of lesions will give treatment to try suppress/improve these symptoms but would not recommend long-term linezolid suppression due to concern of bone marrow suppression/thalia count effects. - Will switch IV vancomycin to PO linezo lid 600mg PO q12h - If patient stable/tolerates PO linezol id would plan to finish below abx therapy course with PO linezold - Plan to f/u derm as outpatient; can f/ u in ID clinic as outpatient as well in 1-2 weeks CURRENT ANTIMICROBIALS: Linezolid of abx day # Extracted from:Title: Clinical Document Author: Lexx Sauer MD Date: 10/11/18 Date of admission: 10/11/2018. Reason for admission 1. Recurrent abdominal wall cellulitis despite outpatient antibiotics. History of present illness Colleen is a 32-year-old woman with recurrent skin MSSA infections, and morbid obesity who is closely followed up by her primary service mechanic who comes in for evaluation of multiple subcutaneous abscesses. Patient reports that she was seen in the dermatology clinic last week and prescribed doxycycline. These medications have not helped him despite appropriate wound care she is having new subcutaneous abscesses. Patient also reports having a subjective fever yesterday. None of these abscesses are large enough to be drained some of them are spontaneously draining. In the ER patient is given 1 dose of vancomycin and transferred to [facility]. At this time patient denies having any headache or vision changes. Denies any chest pain or palpitations. Denies any cough or shortness of breath. Denies having any other skin rashes elsewhere on the body. Denies having any pain with urination. Patient reports that historically in the past only multiple doses of vancomycin clear this infection. Past medical history 1. Multiple subcutaneous abscesses invo lving emesis 2. Hidradenitis Suppurativa 3. Morbid obesity. 4. Insomnia Medications at home 1. Ambien PRN Past surgical history 1. Cholecystectomy 2. Multiple incision and drainage of ab dominal wall abscesses. Social history: Denies any tobacco or alcohol use. Allergies: Bactrim, ciprofloxacin, clindamycin, Keflex, penicillin. Review system: As per HPI. Family history: Reviewed but noncontributory. Physical examinatio Gen: AAOX3, NAD Neuro: Moving all extremities well CV: RRR, S1 and S2 Lung: CTA-B Abdomen: Nontender abdomen. 3 distinct areas of subcutaneous folliculitis about a few inches apart in the left lower quadrant of the abdomen. No active drainage, there is erythema and warmth surrounding. : no supraputic region tenderness. No CVA region tenderness. EXT: no peripheral edema. Skin: no rashes or other skin color changes. Diagnostic studies: None Laboratory data Sodium of 138, potassium of 3.8, chloride of 107, creatinine 0.8, glucose of 84, LFTs are normal, lactic acid is 1, white blood cell count is 10, hemoglobin of 13, platelets of 237. To Assessment and plan Melena is a 32-year-old woman recurrent subcutaneous abdominal wall abscesses. Acute issues Abdominal wall cellulitis and abscesses History of MSSA infection Morbid obesity Insomnia. Plan Abdominal wall abscesses are too small to drain, continue with nursing wound care. We will give 24 hours of IV vancomycin. Linezolid be a good option as outpatient but will get ID involved due to recurrent nature. Doxy did not help as outpatient. Ambien as needed at night. DVT prophylaxis: Lovenox Disposition: Likely tomorrow. 10/12/2018 [facility] Extracted from:Title: Clinical Document Author: Oralia Lizarraga MD Date: 08/29/18 Attending: Oralia Lizarraga MD Service: Internal Medicine Code status: Full Code Reason for Admission: ABDOMINAL WALL ABSCESS Working DRG: Isolation: No Isolation/Standard Precautions Consulting Physicians: Mahesh Wilkins MD Office: Service: Infectious Disease Allergies (5) Active Reaction Keflex None documented clindamycin None documented ciprofloxacin None documented Bactrim None documented penicillin None documented SUBJECTIVE: No acute events overnight Afebrile in the past 24 hours Pending home IV antibiotic arrangement OBJECTIVE: Review of Systems: 10 Point review of systems performed neg ative as of above PE: GENERAL APPEARANCE: alert and cooperative, and appears to be in no acute distress. HEAD: normocephalic, atraumatic EYES: PERRL, EOMI. MOUTH: Oral mucosa appears moist NECK: Neck supple, non-tender CARDIAC: Normal S1 and S2. No murmurs heard. Normal rate and rhythm. LUNGS: Clear to auscultation without rales, rhonchi, wheezing or diminished breath sounds. ABDOMEN: Obese abdomen. Positive bowel sounds. Soft, nondistended, nontender. No guarding or rebound. Furuncle noted on the left of the umbilicus area with improving erythema, over the right upper quadrant. Draining furuncle bandaged with the bandage being clean/dry/intact. EXTREMITIES: No lower extremity edema. Peripheral pulses intact. NEUROLOGICAL: CN II-XII intact. Strength and sensation symmetric and intact throughout. PSYCHIATRIC: Mood stable Date Wt(kg) Wt(lb) Ht(cm) Ht(in) Method 08/24 (initial) 136.36 300.00 165.10 65.00 Estimated Vitals Tmp(F) Pulse BP RR SpO2 FIO2 08/29 08:02 98.2 110 122/87 19 99 --- 08/29 03:14 98.2 104 113/80 18 98 --- 08/28 23:12 98.2 101 131/94 16 98 --- 08/28 19:48 98.2 77 111/72 1 6 98 --- 08/28 17:25 98.1 72 116/78 1 6 98 --- 24 Hr Tmax: 98.4F (36.89c) at 08/28 12:0 6 Vital Signs are the last 5 in the past 48 hours. Medications (16) Active Scheduled Meds (3): 08/27/18 sodium chloride (Saline Flush 0 .9%) 10 mL IVP Q8H 08/24/18 tramadol 50 mg PO Q6Hnow 08/27/18 vancomycin + Sodium Chloride 0. 9% IV 250 mL 1,500 mg IVPB [id number] 166.67 ml/hr Unscheduled Meds (2): 08/27/18 lidocaine (lidocaine 1%) 5 mL I NTRADERM ONCALL 08/24/18 vancomycin (Vancomycin Pharmacy Dosing) 1 ea MISC ONCALL PRN Meds (11): 08/24/18 Dextrose 50% in Water IV (Dextr ose 50% Syringe) 12.5 gm IVP PRN 08/24/18 Dextrose 50% in Water IV (Dextr ose 50% Syringe) 25 gm IVP PRN 08/24/18 acetaminophen-hydrocodone (Norc o 10/325 oral tablet) 1 tab PO Q4H 08/24/18 acetaminophen 650 mg PO Q4H 08/24/18 benzonatate (Tessalon Perles) 1 00 mg PO TID 08/24/18 glucagon 1 mg IM PRN 08/24/18 melatonin 3 mg PO Bedtime 08/26/18 morphine Sulfate 6 mg PO Q4H 08/24/18 ondansetron 4 mg IVP Q8H 08/24/18 senna 8.6 mg PO BID 08/27/18 sodium chloride (Saline Flush 0 .9%) 10 mL IVP PRN One Time Meds: None Continuous Infusions: None Lines, Tubes, and Drains: 08/28/2018 10:58 Central Lines: Basilic vein, left PICC Double I&O Record In Out Bal 08/29 24hr Tot 740 0 740 08/28 24hr Tot 2619 0 2619 (no lab data in past 24 hours) ASSESSMENT and PLAN: Assessment: Abdominal cellulitis Recurrent foreign Kalosis Leukocytosis History of MSSA skin abscess Obesity Multiple drug allergies Plan: Discussed with ID, status post PICC line and home health order placed for IV vancomycin. Case management following to arrange for home IV vancomycin. Discharge once home health has been set up. Surgical recommendations appreciated. Leukocytosis has resolved. Afebrile in the past 24 hours. Lifestyle modification. Outpatient dermatology follow-up Medication reconciliation DVT prophylaxis: SCDs and ambulation. Has been moving about frequently per the patient. Will also add chemical prophylaxis secondary to prolonged hospitalization. Disposition: Pending home IV antibiotics Extracted from:Title: Consult Note Author: Hayden Wong MD Date: 08/26/18 Patient is a 32 years old female with a recurrent soft tissue infectionincluding abdomen, inner thighs, supra pubic areawithout improvement in spite of oral treatment withdoxycycline, there is no drainable fluid collection at this time.Patient has persistent colonization with leading to recurrent soft tissue infection.The source is not clear. Plan: Aggressive hygiene,chlorhexidinebody wash,Bactroban ointment to the nostril into the wounds Patient likely needinglong-term IV antibiotics treatment Local wound care, warm compression No surgical intervention is needed at this time. Thank you for the consultation Abdominal wall cellulitis(L03.311) Extracted from:Title: General Admission H&P * Author: Guido Crain MD Date: 08/24/18 Impression and Plan abdominal celliuitis with abscess failed outaptient antibioics multiple superficial abscss hx of MSSA morbid obesity leukocytosis PCOD admit to medicine IV vancomycin for now, ID consutled reconcile home medications wound culture dvt ppx 08/30/2018 Ginny Extracted from:Title: Clinical Document Author: Oralia Lizarraga MD Date: 05/21/18 Attending: Oralia Lizarraga MD Service: Internal Medicine Code status: Full Code Reason for Admission: CELLILITIS Working DRG: Isolation: No Isolation/Standard Precautions Consulting Physicians: Mahesh Wilkins MD Office: Service: Infectious Disease Tracie Stahl MD Office: Service: General Surgery Jed Huston MD Office: Service: Infectious Disease Zoey Hartley MD Office: Service: Infectious Disease Allergies (5) Active Reaction Keflex None documented clindamycin None documented ciprofloxacin None documented Bactrim None documented penicillin None documented SUBJECTIVE: No acute events overnight. Afebrile in the past 24 hours. Abdominal pain is still there however improved from before. OBJECTIVE: Review of Systems: 10 Point review of systems performed neg ative as of above PE: GENERAL APPEARANCE: Obese female. Alert and cooperative, and appears to be in no acute distress. HEAD: normocephalic, atraumatic EYES: PERRL, EOMI. MOUTH: Oral mucosa appears moist NECK: Neck supple, non-tender CARDIAC: Normal S1 and S2. No murmurs heard. Normal rate and rhythm. LUNGS: Clear to auscultation without rales, rhonchi, wheezing or diminished breath sounds. ABDOMEN: Obese abdomen. Bandage noted over the surgical incision with firmness over the anterior abdominal wall below the umbilicus however improved from before. Tenderness to palpation noted. No rebound tenderness to palpation or guarding noted. EXTREMITIES: No lower extremity edema. Peripheral pulses intact. NEUROLOGICAL: CN II-XII intact. Strength and sensation symmetric and intact throughout. PSYCHIATRIC: Mood stable Date Wt(kg) Wt(lb) Ht(cm) Ht(in) Method 05/17 120.91 266.00 167.64 66.00 Wendy/Sta 05/16 (initial) 119.09 262.00 Estimated 05/17 167.64 66.00 Stated Vitals Tmp(F) Pulse BP RR SpO2 FIO2 05/21 08:03 98.2 62 113/75 1 8 98 --- 05/21 03:45 97.8 51 94/62 18 98 --- 05/20 22:49 98.3 69 124/83 1 8 99 --- 05/20 20:03 98.4 61 120/82 1 8 100 --- 05/20 16:00 98.2 63 117/80 1 7 97 --- 24 Hr Tmax: 98.4F (36.89c) at 05/20 20:0 3 Vital Signs are the last 5 in the past 48 hours. Date Wt(kg) Wt(lb) Ht(cm) Ht(in) Method 05/17 120.91 266.00 167.64 66.00 Wendy/Sta 05/16 (initial) 119.09 262.00 Estimated 05/17 167.64 66.00 Stated I&O Record In Out Bal 05/20 24hr Tot 1189 0 1189 05/19 24hr Tot 1556 0 1556 Medications (11) Active Scheduled Meds (3): 05/19/18 cefTRIAXone + sterile water 20 mL 2 gm IV [id number] 240 ml/hr 05/17/18 enoxaparin 40 mg SUB-Q [id number] 05/20/18 vancomycin + Sodium Chloride 0. 9% IV 250 mL 1,500 mg IVPB [id number] 166.67 ml/hr Unscheduled Meds (2): 05/17/18 influenza virus vaccine, inacti vated 0.5 mL IM ONCALL 05/19/18 vancomycin IVPB ONCALL PRN Meds (5): 05/18/18 acetaminophen-codeine (Tylenol with Codeine #3 oral tablet) 1 tab PO Q4H 05/17/18 acetaminophen 650 mg PO Q4H 10/02/18 morphine Sulfate 2 mg IVP Q4H 05/17/18 ondansetron 4 mg IVP Q6H 05/17/18 sodium chloride (Saline Flush 0 .9%) 10 ml IVP PRN One Time Meds: None Continuous Infusions (1): 05/17/18 Lactated Ringers Injection IV 1 ,000 mL (Lactated Ringers IV 1,000 mL) 1,000 mL 75 ml/hr 24hr Labs 05/21 0300 Glucose Lvl 89 BUN 9 Creatinine Lvl 0.72 Sodium Lvl 142 Potassium Lvl 4.2 Chloride Lvl 105 CO2 29 AGAP 12.2 Calcium Lvl 8.2 L eGFR 111 WBC 7.1 RBC 4.12 L Hgb 12.1 Hct 35.3 L MCV 85.6 MCH 29.4 MCHC 34.4 RDW 12.9 Platelet 267 MPV 8.4 Segs 50.8 Monocytes 10.7 Lymphocytes 32.9 Eosinophils 4.8 H Basophils 0.8 Segs-Bands # 3.6 Lymphocytes # 2.3 Monocytes # 0.8 Eosinophils # 0.3 Basophils # 0.1 05/21 0[address]anco [address] TND 0300 Vanco Tr 15.7 ASSESSMENT and PLAN: Assessment: Abdominal wall cellulitis Panniculitis Abdominal wall abscess Sepsis secondary to above PCOS Multiple medication allergies Obesity History of depression Nausea/vomiting Plan: Discussed with infectious disease, to continue with IV ceftriaxone today. IV vancomycin discontinued. Likely discharge with oral doxycycline tomorrow a.m. Wound culture with Staphylococcus aureus, susceptibilities noted. Blood culture x2 trending negative. Status post OR on 05/18 with general surgery. Large right-sided abdominal wall abscess noted now with incision and drainage. Medication reconciliation Antiemetics as needed. Pain control as needed DVT prophylaxis: Lovenox subcutaneous Disposition: Likely 1 more midnight Extracted from:Title: ID Consultation Note Author: Mahesh Wilkins MD Date: 05/18/18 [facility] INFECTIOUS DISEASE CONSULTATION NOTE Nikole Bob M.D. M. Farhan Khan, M.D. Syed W. Hasan, M.D. REQUESTING PHYSICIAN: Dr. Lizarraga REASON FOR CONSULTATION: Abdominal wall purulent cellulitis/phelgmon HISTORY OF PRESENT ILLNESS: Colleen Bedolla is a 32 yo F with PMH including PCOS who presented to [facility] due to worsening cellulitis on abdomen and fever. She initially had 'bumps' that progressed to cellulitis on legs about 1 month ago, and had been on doxycyline treatment for 30 days. RUQ abdominal wall area also developed cellulitic area and resolved after self draining pus, but mid abdomen area has bothered her for several days and gotten more swollen/painful despite prior trials of clindamycin therapy (during the 2nd course of clinda th erapy she developed hives) and seeing outside ID clinical dietetic technician in [place]. She still notes significant pain and scant drainage from mid abdominal wall cellulitic area and is planned for I&D of that area later today after Surgery was consulted. REVIEW OF SYSTEMS: CONSTITUTIONAL: (+)subjective fever last few days EYES: No vision change ENT: (+)chronic neck pain secondary to herniated disc RESPIRATORY: Denies shortness of breath or cough. CARDIOVASCULAR: Denies chest pain or palpitations. GASTROINTESTINAL: Denied nausea, vomiting, diarrhea, or abdominal pain. GENITOURINARY: Denies dysuria, frequency, or urgency. MUSCULOSKELETAL: No joint pain, muscle aches, or swelling. NEUROLOGIC: No headaches or focal weakness. SKIN: No rashes or lesions. ENDOCRINE: Denies history of polyuria, polydipsia, heat or cold intolerance. HEME/LYMPH: Denies bleeding, bruising, or swollen glands. PSYCH: No depression or anxiety. PAST MEDICAL/SURGICAL HISTORY: Diverticulosis, gastric Gastritis PCOS Cholecystectomy SOCIAL HISTORY: Alcohol Details: Never Tobacco Details: Use: Former smoker. Type: Cigarettes. Tobacco smoke exposure: Lives with someone who smokes. Did the Patient Smoke Cigarettes Anytime During the Last 365 Days? Yes. Cessation Counseling Provided? Yes.; Comment(s): quit smoking in may Substance Abuse Details: Use: None. FAMILY HISTORY: Father: [place] - Lung cancer Mother: [place] - Cancer of ovary Grandparent: [place] - Cancer of uterus; Lymphoma PHYSICAL EXAMINATION: Vitals Tmp(F) Pulse BP RR SpO2 FIO2 05/18 07:49 98.2 66 97/65 18 98 --- 05/18 05:19 99.2 72 101/67 1 8 97 --- 05/17 23:59 98.7 82 113/70 1 8 98 --- 05/17 19:53 98.6 76 111/74 1 8 99 --- 05/17 15:16 98.0 74 87/59 18 99 --- 24 Hr Tmax: 99.2F (37.33c) at 05/18 05:1 9 Vital Signs are the last 5 in the past 48 hours. GEN: No acute distress, obese HEENT: Sclera white; No thrush or erythema; Moist membranes LUNG: Clear to auscultation bilaterally; No wheeze, rhonchi, or crackles HEART: RRR ABD: +BS; Soft; Non-distended; tender over mid abdominal cellulit area EXT: Nonpitting BLE edema NEURO: Moves all extremities SKIN: Healed scar in RUQ abdominal wall area; cellulitic/tender/indurated patch with central scab in mid-lower abdomen about 5cm x 3cm large PSYCH: Appropriate affect MEDICATIONS: Scheduled Meds (2): 05/17/18 enoxaparin 40 mg SUB-Q [id number] 05/17/18 vancomycin + Sodium Chloride 0. 9% IV 250 mL 1,000 mg IVPB [id number] 250 ml/hr ALLERGIES: Allergies (5) Active Reaction clindamycin Hives Keflex Hives ciprofloxacin Hives Bactrim Hives penicillin Hives LABORATORY (Reviewed): Labs (Last four charted values) WBC H 12.3 (MAY 17) H 12.4 (MAY 17) Hgb 13.1 (MAY 17) 13.3 (MAY 17) Hct 38.8 (MAY 17) 40.3 (MAY 17) Plt 266 (MAY 17) 258 (MAY 17) Na 140 (MAY 17) 142 (MAY 17) K 3.6 (MAY 17) 3.7 (MAY 17) CO2 25 (MAY 17) 28 (MAY 17) Cl 105 (MAY 17) 105 (MAY 17) Cr 0.55 (MAY 17) 0.76 (MAY 17) BUN 9 (MAY 17) 10 (MAY 17) Glucose Random 88 (MAY 17) 90 (MAY 17) Mg 1.9 (MAY 17) Ca L 7.9 (MAY 17) L 8.2 (MAY 17) PT 14.6 (MAY 17) INR 1.14 (MAY 17) PTT H 36.4 (MAY 17) MICROBIOLOGY (Reviewed): 05/17 Blood Cx x2: NGTD IMAGING (Reviewed): CT A/P IMPRESSION: 1. Right infraumbilical subcutaneous ce llulitis with suspected tubular-shaped phlegmon. No enhancing capsule detected to confirm an abscess, but early/developing abscess is within the differential considerations. No associated soft tissue gas. 2. Short segment of appendix is fluid-fi lled and diameter at the upper limit of normal but acute appendicitis is not suspected. 3. Small sliding hiatal hernia. 4. Mild sigmoidal diverticulosis without diverticulitis. ASSESSMENT and PLAN: Colleen Bedolla is a 32 yo F with: 1. Abdominal skin/soft tissue purulent c ellulits/phlegmon 2. Leukocytosis 3. Elevated temperature 4. Prior cellulitis/?boils on legs and u pper abdominal wall 5. PCOS 6. Multiple antibiotic allergies (clinda mycin, Keflex, ciprofloxacin, Bactrim, penicillin) with hives reaction Agree with antibotics to target Gram positive organisms including MRSA. -Continue IV vancomycin, can target trou gh 10-20 or with pharmacy assistance for dosing -F/u cultures and intra-op findings/cult ures from planned abdominal skin/soft tissue debridement -May need to trial chlorhexidine decolon ization to see if able to decrease recurrence of SSTI once acute infection is improving Thank you for this consult. ID will follow. Extracted from:Title: General Admission H&P * Author: Chin Lubin MD Date: 05/17/18 Impression and Plan 32 yo female with history of depression, polycystic ovarian syndrome, presented to ER c/o abscess in the lower abdomen. 1. Abdminal wall cellulitis and possible abscess. Blood cultures. Vancomycin. Surgery consult. 2. Obesity. 3. Polycystic ovarian syndrome. 4. Depression. Denies suicidal or homici joe ideation. 5. DVT prophylaxis. Lovenox. 05/22/2018 [facility] Plan of Care No Data Provided for This Section Social History Social History Date Source Social History TypeResponse Alcohol Never Employment/School Status: Employed. Exercise Exercise duration: 0. Sexual Sexually active: Yes. Sexual orientation: Straight or heterosexual. What is your current gender identity? Identifies as female. Uses condoms: No. History of sexual abuse: No. Sex Mutually Satisfying: Yes. Change in Libido: No. Self Breast Exam Yes. Last Pap Smear 2 years ago. Substance Abuse Use: None. Smoking Status Never smoker; Type: Cigarettes; Previous treatment: None; Ready to change: No; Concerns about tobacco use in household: No; Lives with someone who smokes; Cigarette Smoking Last 365 Days Yes; Reg Smoking Cessation Counseling Yes; Stopped at age: 30; 1 entered on: 11/02/19 1quit smoking in may 25 [facility] Social History TypeResponse Alcohol Never Employment/School Status: Employed. Exercise Exercise duration: 0. Sexual Sexually active: Yes. Sexual orientation: Straight or heterosexual. What is your current gender identity? Identifies as female. Uses condoms: No. History of sexual abuse: No. Sex Mutually Satisfying: Yes. Change in Libido: No. Self Breast Exam Yes. Last Pap Smear 2 years ago. Substance Abuse Use: None. Smoking Status Never smoker; Type: Cigarettes; Previous treatment: None; Ready to change: No; Concerns about tobacco use in household: No; Lives with someone who smokes; Cigarette Smoking Last 365 Days Yes; Reg Smoking Cessation Counseling Yes; Stopped at age: 30; 1 entered on: 03/23/20 1quit smoking in may 25 [facility] Social History TypeResponse Substance Abuse Use: None. IV drug use: No. Sexual Sexually active: Yes. Alcohol Never, Alcohol use interferes with work or home: No. Smoking Status Never smoker; Type: Cigarettes; Previous treatment: None; Lives with someone who smokes; Cigarette Smoking Last 365 Days Yes; Reg Smoking Cessation Counseling Yes; Stopped at age: 30; 1 entered on: 12/12/18 1quit smoking in may 20 [facility] Social History TypeResponse Smoking Status Never smoker; Exposure to Tobacco Smoke None; Cigarette Smoking Last 365 Days No; Reg Smoking Cessation Counseling No 02/14/2015 [facility] Family History No Data Provided for This Section Advance Directives No Data Provided for This Section Functional Status No Data Provided for This Section
--- OUTSIDE RECORDS SUMMARY | 2020-04-12 20:02 | XMS REPORT | Continuity of Care Document ---
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 minocycline 100 mg oral capsule 2019-04-04 00:11:00 Yes 100 mg = 1 cap, PO, Q12H, X 10 day, # 20 cap, 0 Refill(s) [facility] Lidocaine 2019-04-03 21:46:00 No Notes: Preservative free. (Same as: Xylocaine MPF) [facility] Zinc Sulfate 2019-03-25 14:00:00 No Notes: (Zinc sulfate capsule) - 220 mg Zinc sulfate = 50 mg elemental zinc Same as Zinc Sulfate [facility] Spironolactone 2019-03-25 14:00:00 No Notes: (Same As: Aldactone) [facility] Ambien 2019-03-25 02:00:00 No Notes: (Same As: Ambien) [facility] Doxycycline 2019-03-24 22:00:00 No Notes: NO MILK/ANTACIDS/IRON Take 1 hour before or 2 hours after dairy products [facility] Adderall 2019-03-24 22:00:00 No 30 mg, Route: PO, BID, Dosing Weight 127.136, kg, Start date: 03/24/19 17:00:00 CDT, Duration: 30 day, Stop date: 04/23/19 9:00:00 CDT [facility] Acetaminophen 300 MG / Codeine Phosphate 30 MG Oral Tablet [Tylenol with Codeine #3] 2019-03-24 20:05:00 No 1 - 2 tab, PO, Q4H, PRN Pain, X 2 day, # 20 tab, 0 Refill(s) [facility] doxycycline hyclate 100 MG Oral Capsule 2019-03-24 20:01:00 Yes 100 mg, PO, BID, X 7 day, # 14 cap, 0 Refill(s), Pharmacy: [facility] #[id number] Morphine 2019-03-24 20:01:00 No 2 mg, 1 mL, Route: IVP, Drug form: SOLN, ONCE, Dosing Weight 127.136, kg, Priority: NOW, Start date: 03/24/19 15:01:00 CDT, Stop date: 03/24/19 15:01:00 CDT, 0 [facility] tedizolid phosphate 200 MG Oral Tablet [Sivextro] 2019-03-24 20:01:00 Yes 200 mg = 1 tab, PO, Daily, X 7 day, # 7 tab, 0 Refill(s), Pharmacy: [facility] #[id number] Shahida bravo vancomycin + Sodium Chloride 0.9% IV 500 mL 2019-03-24 10:00:00 No 2001 mg: infuse over 2.5 hours For adult patients only: Round to nearest 250 mg per Medical Staff approval MEDICATION WASTE Product Size: 1000 mg Product Wasted: ___ mg [facility] Morphine 2019-03-24 01:00:00 No 2 mg, 1 mL, Route: IVP, Drug form: SOLN, Q4H, Dosing Weight 122.727, kg, Start date: 03/23/19 20:00:00 CDT, Duration: 30 day, Stop date: 04/22/19 16:00:00 CDT, 0 [facility] Doxycycline 2019-03-23 23:50:00 No 100 mg, PO, BID, 0 Refill(s) [facility] Vancomycin 2019-03-23 22:00:00 No 2001 mg: infuse over 2.5 hours For adult patients only: Round to nearest 250 mg per Medical Staff approval MEDICATION WASTE Product Size: 1000 mg Product Wasted: ___ mg [facility] Dilaudid 2019-03-23 21:18:00 No Notes: Same as: Dilaudid [facility] Acetaminophen 2019-03-23 21:15:00 No Notes: Do not exceed 4 gm/day. (Same as: Tylenol) [facility] Glucagon 2019-03-23 21:15:00 No 1 mg, Route: IM, Drug form: PDR/INJ, PRN, Dosing Weight 122.727, kg, PRN Blood Glucose Results, Start date: 03/23/19 16:15:00 CDT, Duration: 30 day, Stop date: 04/22/19 16:14:00 CDT, 0 [facility] Ondansetron 2019-03-23 21:15:00 No Notes: (Same as: Zofran) MEDICATION WASTE Product Size: 4 mg Product Wasted: ___ mg Shahida Soto Dextrose 50% Syringe 2019-03-23 21:15:00 No 12.5 gm, 25 mL, Route: IVP, Drug Form: INJ, Dosing Weight 122.727, kg, PRN, PRN Blood Glucose Results, Start date: 03/23/19 16:15:00 CDT, Duration: 30 day, Stop date: 04/22/19 16:14:00 CDT, 0 [facility] Vancomycin 2019-03-23 19:21:00 No 2001 mg: infuse over 2.5 hours For adult patients only: Round to nearest 250 mg per Medical Staff approval MEDICATION WASTE Product Size: 1000 mg Product Wasted: ___ mg Shahida Soto Saline Flush 0.9% 2019-03-23 17:01:00 No Notes: preservative free. [facility] Acetaminophen 300 MG / Codeine Phosphate 30 MG Oral Tablet [Tylenol with Codeine #3] 2019-03-07 22:14:00 Yes 1 tab, PO, Q6H, PRN Pain, X 7 day, # 28 tab, 0 Refill(s) [facility] Doxycycline Monohydrate 100 MG Oral Tablet 2019-03-07 22:14:00 Yes 100 mg = 1 tab, PO, Q12H, X 10 day, # 20 tab, 0 Refill(s), Pharmacy: [facility] [id number] [place] [address] Acetaminophen 325 MG / Hydrocodone Bitartrate 10 MG Or al Tablet [[place] 10/325] 2019-03-03 18:50:00 No Note s: Do not exceed 4gm/day of acetaminophen. (Same as: [place] 325/10) [facility] Hydromorphone 2019-03-03 18:49:00 No Notes: Same as: Dilaudid [facility] Zinc Sulfate 2019-03-03 14:00:00 No Notes: (Zinc sulfate capsule) - 220 mg Zinc sulfate = 50 mg elemental zinc Same as Zinc Sulfate [facility] Ambien 2019-03-03 02:00:00 No Notes: (Same As: Ambien) [facility] Spironolactone 2019-03-02 19:46:00 No Notes: (Same As: Aldactone) [facility] Lidocaine 2019-03-02 19:17:00 No Notes: Preservative free. (Same as: Xylocaine MPF) [facility] Vancomycin 2019-03-01 18:00:00 No 2001 mg: infuse over 2.5 hours For adult patients only: Round to nearest 250 mg per Medical Staff approval MEDICATION WASTE Product Size: 1000 mg Product Wasted: ___ mg [facility] height weight allergies 2019-03-01 05:00:00 No height weight allergies, RN pls complete HWA for order verificati, Drug form: MISC, Route: MISC, ONCALL, 03/01/19 0:00:00 CDT, Duration: 30 day, Stop date: 03/30/19 23:59:00 CDT, 0 [facility] Enoxaparin 2019-03-01 05:00:00 No Notes: (S zenaida as: Lovenox) [facility] Dextrose 50% Syringe 2019-03-01 04:12:00 No 12.5 gm, 25 mL, Route: IVP, Drug Form: INJ, Dosing Weight 136.364, kg, PRN, PRN Blood Glucose Results, Start date: 02/28/19 23:12:00 CDT, Duration: 30 day, Stop date: 03/30/19 23:11:00 CDT, 0 [facility] Glucagon 2019-03-01 04:12:00 No 1 mg, Route: IM, Drug form: PDR/INJ, PRN, Dosing Weight 136.364, kg, PRN Blood Glucose Results, Start date: 02/28/19 23:12:00 CDT, Duration: 30 day, Stop date: 03/30/19 23:11:00 CDT, 0 [facility] Bisacodyl 2019-03-01 04:12:00 No Notes: (Same As: Dulcolax, Bisco-Lax) [facility] Ondansetron 2019-03-01 04:12:00 No Notes: (Same as: Zofran) MEDICATION WASTE Product Size: 4 mg Product Wasted: ___ mg [facility] Acetaminophen 2019-03-01 04:12:00 No Notes: Do not exceed 4 gm/day. (Same as: Tylenol) [facility] Melatonin 2019-03-01 04:12:00 No Notes: (Sa me as: Melatonin) [facility] Magnesium Oxide 2019-03-01 04:09:00 No Notes: (Same as: Mag-Ox 400) Magnesium oxide [id number] elemental magnesium Dose=____mg magnesium oxide (___mg elemental magnesium) Shahida bravo Magnesium Sulfate 2019-03-01 04:09:00 No Notes: WASTE: F/P - Sink; E - Municipal Trash Bin [facility] sodium phosphate 2019-03-01 04:09:00 No Notes: Infuse over 4 hour. Do not infuse phosphorous concurrently in the same line as TPN or IVF that contains calcium. For double lumen central lines, phosphorous may be infused in a separate lumen from TPN. [facility] abdulaziz Calcium Gluconate 2019-03-01 04:09:00 No Notes: WASTE: F/P - Sink; E - Municipal Trash [facility] Potassium Chloride 2019-03-01 04:09:00 No Notes: (Same as: K-Dur 20) "Do Not Crush" Give with food and full glass of water For patients unable to swallow tablet, dissolve in one half glass of water. Allow about 2 minutes for the tablets to disintegrate. Stir before giving to prepare slurry and administer. Please exclude Patient s with feeding tube less than 14 Belgian (Dobhoff, J-tube etc) and pediatric and patients. [facility] potassium phosphate 2019-03-01 04:09:00 No Notes: (Same as: K Phosphate.) Do not infuse phosphorous concurrently in the same line as TPN or IVF that contains calcium. For double lumen central lines, phosphorous may be infused in a separate lumen from TPN. 1 mMol phoshate has 1.47 mEq potassium Infuse over 4 hours [facility] potassium phosphate-sodium phosphate 250 mg-280 mg-160 mg oral powder for reconstitution 2019-03-01 04:09:00 No Notes: (Same as: Phos-NaK) Each 1.5 gm pkt has 250mg phosphorous. Mix w/2.5oz water and stir. [facility] Hydromorphone 2019-03-01 04:08:00 No Notes: Same as: Dilaudid [facility] Tramadol 2019-03-01 04:08:00 No Notes: Not to exceed 400mg/day. (Same As: Ultram) Shahida Soto LR IV 1,000 mL 2019-03-01 04:07:00 No 1,000 mL, Rate: 75 ml/hr, Infuse over: 13.3 hr, Route: IV, Dosing Weight 136.364 kg, Total Volume: 1,000, Start date: 02/28/19 23:07:00 CDT, Duration: 30 day, Stop date: 03/30/19 23:06:00 CDT, 2.57, m2, 0 Shahida Stevens nn Vancomycin 2019-03-01 04:01:00 No 2001 mg: infuse over 2.5 hours For adult patients only: Round to nearest 250 mg per Medical Staff approval MEDICATION WASTE Product Size: 1000 mg Product Wasted: ___ mg [facility] Vancomycin 2019-03-01 02:50:00 No 2001 mg: infuse over 2.5 hours For adult patients only: Round to nearest 250 mg per Medical Staff approval MEDICATION WASTE Product Size: 1000 mg Product Wasted: ___ mg [facility] [place] NS (Bolus) IV 2019-03-01 02:50:00 No 1,000 mL, 1,000 ml/hr, Infuse Over: 1 hr, Route: IV, 1,000, Drug form: INJ, ONCE, Priority: STAT, Dosing Weight 136.364 kg, Start date: 02/28/19 21:50:00 CDT, Stop date: 02/28/19 21:50:00 CDT, 0 [facility] Zofran 2019-03-01 02:50:00 No Notes: (Same as: Zofran) MEDICATION WASTE Product Size: 4 mg Product Wasted: ___ mg [facility] Morphine 2019-03-01 02:50:00 No Not es: (Same as:MORPhine Sulfate) [facility] Cefazolin 2019-01-31 20:00:00 No Notes: (Same As: Sang Romo) MEDICATION WASTE Product Size: 1000 mg Product Wasted: ___ mg [facility] ibuprofen 800 mg oral tablet 2019-01-31 19:00:00 Yes 800 mg = 1 tab, PO, Q8H, PRN Pain, Take with food, # 30 tab, 0 Refill(s), Pharmacy: [facility] [id number] [facility] zinc sulfate 220 mg oral capsule 2019-01-31 18:31:00 Yes 220 mg = 1 cap, PO, Daily, # 30 cap, 0 Refill(s), Pharmacy: [facility] [id number] [facility] cefpodoxime 200 mg oral tablet 2019-01-31 18:31:00 Yes 400 mg = 2 tab, PO, Q12H, X 10 day, # 40 tab, 0 Refill(s), Pharmacy: [facility] [address] [place] [address] Acetaminophen 300 MG / Codeine Phosphate 30 MG Oral Tablet [Tylenol with Codeine #3] 2019-01-31 15:02:00 No Notes: Do not exceed 4gm/day of acetaminophen. (Same as: Tylenol with Codeine # 3) [facility] ATTN: vanc trough ordered before 8PM dose 2019-01-31 00:30:00 No ATTN: vanc trough ordered before 8PM dose, dont give before lab is drawn, Drug form: MISC, Route: MISC, ONCE, 01/30/19 19:30:00 CDT, Stop date: 01/30/19 19:30:00 CDT [facility] Zinc Sulfate 2019-01-30 14:00:00 No Notes: (Zinc sulfate capsule) - 220 mg Zinc sulfate = 50 mg elemental zinc Same as Zinc Sulfate [facility] vancomycin + Sodium Chloride 0.9% IV 250 mL 2019-01-29 20:00:00 No 2001 mg: infuse over 2.5 hours For adult patients only: Round to nearest 250 mg per Medical Staff approval MEDICATION WASTE Product Size: 1000 mg Product Wasted: ___ mg [facility] vanco trough 2019-01-29 18:30:00 No vanco trough, reminder, Drug form: MISC, Route: MISC, ONCE, 01/29/19 13:30:00 CDT, Stop date: 01/29/19 13:30:00 CDT [facility] cefepime 2019-01-29 04:00:00 No Notes: (Same As: Maxipime) MEDICATION WASTE Product Size: 1000 mg Product Wasted: ___ mg [facility] RN - do not give vanc til trough is drawn 01/28 @ 12:30 2019-01-28 17:00:00 No RN - do not giv e vanc til trough is drawn 01/28 @ 12:30, attn, Drug form: MISC, Route: MISC, ONCE, 01/28/19 12:00:00 CDT, Stop date: 01/28/19 12:00:00 CDT [facility] Spironolactone 2019-01-28 14:00:00 No Notes: (Same As: Aldactone) [facility] zolpidem 2019-01-28 02:00:00 No Notes: (Byron e As: Ambien) [facility] Ambien 2019-01-28 02:00:00 No 10 mg, Route: PO, Drug form: TAB, Bedtime, Dosing Weight 127.273, kg, Start date: 01/27/19 21:00:00 CDT, Duration: 30 day, Stop date: 02/25/19 21:00:00 CDT [facility] Adderall 2019-01-27 22:00:00 No 30 mg, Route: PO, BID, Dosing Weight 127.273, kg, Start date: 01/27/19 17:00:00 CDT, Duration: 30 day, Stop date: 02/26/19 9:00:00 CDT [facility] *Please bring pt's own adderall to pharmacy for label* 2019-01-27 21:00:00 No *Please bring p t's own adderall to pharmacy for label*, ATTN:RN, Drug form: MISC, Route: MISC, QSHIFT, 01/27/19 16:00:00 CDT, Duration: 30 day, Stop date: 02/26/19 8:00:00 CDT [facility] abdulaziz Acetaminophen 325 MG / Hydrocodone Bitartrate 5 MG Oral Tabl et [[place] 5/325] 2019-01-27 13:58:00 No Notes: (Same as: [place] 325/5) Do not exceed 4gm/day of acetaminophen. [facility] Vancomycin 2019-01-27 10:00:00 No 1 ea, Route: MISC, ONCALL, Dosing Weight 125, kg, Start date: 01/27/19 5:00:00 CDT, Duration: 5 day, Stop date: 02/01/19 4:59:00 CDT, Pharmacy to dose, ABX Indication: Skin/Soft Tissue Infection Shahida Soto vancomycin + Sodium Chloride 0.9% IV 250 mL 2019-01-27 10:00:00 No 2001 mg: infuse over 2.5 hours For adult patients only: Round to nearest 250 mg per Medical Staff approval MEDICATION WASTE Product Size: 1000 mg Product Wasted: ___ mg Shahida Soto Lovenox 2019-01-27 10:00:00 No Notes: (Same as: Lovenox) Shahida Soto Morphine 2019-01-27 09:37:00 No Not es: (Same as:MORPhine Sulfate) Shahida Soto Dextrose 50% Syringe 2019-01-27 09:35:00 No 25 gm, 50 mL, Route: IVP, Drug Form: INJ, Dosing Weight 125, kg, PRN, PRN Blood Glucose Results, Start date: 01/27/19 4:35:00 CDT, Duration: 30 day, Stop date: 02/26/19 4:34:00 CDT [facility] Acetaminophen 2019-01-27 09:35:00 No Notes: Do not exceed 4 gm/day. (Same as: Tylenol) [facility] Ondansetron 2019-01-27 09:35:00 No Notes: (Same as: Zofran) MEDICATION WASTE Product Size: 4 mg Product Wasted: ___ mg Shahida Soto Glucagon 2019-01-27 09:35:00 No 1 mg, Route: IM, Drug form: PDR/INJ, PRN, Dosing Weight 125, kg, PRN Blood Glucose Results, Start date: 01/27/19 4:35:00 CDT, Duration: 30 day, Stop date: 02/26/19 4:34:00 CDT [facility] Morphine 2019-01-27 08:29:00 No 4 mg, Route: IVP, ONCE, Dosing Weight 125, kg, Priority: STAT, Start date: 01/27/19 3:29:00 CDT, Stop date: 01/27/19 3:29:00 CDT [facility] Vancomycin 2019-01-27 08:28:00 No 1,000 mg, Route: IVPB, Drug form: INJ, ONCE, Dosing Weight 125, kg, Priority: STAT, Start date: 01/27/19 3:28:00 CDT, Stop date: 01/27/19 3:28:00 CDT, ABX Indication: Skin/Soft Tissue Infection [facility] Mupirocin 20 MG/ML Topical Cream 2018-12-13 02:25:00 Yes 1 appl, TOP, TID, X 5 day, # 15 gm, 0 Refill(s) Shahida Multaniann azithromycin 500 mg oral tablet 2018-12-13 02:24:00 Yes 500 mg = 1 tab, PO, Daily, X 5 day, # 5 tab, 0 Refill(s) [facility] tedizolid 200 mg oral tablet 2018-12-09 22:27:00 Yes 200 mg = 1 tab, PO, Daily, X 6 day, # 6 tab, 0 Refill(s), Pharmacy: [facility] [id number] Shahida [place] Acetaminophen 300 MG / Codeine Phosphate 30 MG Oral Tablet [Tylenol with Codeine #3] 2018-12-09 22:25:00 Yes 1 tab, PO, Q6H, PRN Pain, X 7 day, # 30 tab, 0 Refill(s) Shahida [place] vancomycin + Sodium Chloride 0.9% IV 100 mL 2018-12-09 03:00:00 No Notes: TIME CRITICAL MEDICATION (Same As: Vancocin) For adult patients only: Round to nearest 250 mg per Medical Staff approval Shahida Soto vancomycin + Sodium Chloride 0.9% IV 250 mL 2018-12-08 02:00:00 No 2001 mg: infuse over 2.5 hours For adult patients only: Round to nearest 250 mg per Medical Staff approval MEDICATION WASTE Product Size: 1000 mg Product Wasted: ___ mg Shahida Soto Dilaudid 2018-12-07 03:08:00 No Notes: (Byron e as: Dilaudid) Shahida Soto Naloxone 2018-12-06 17:49:00 No Notes: Same as Narcan Shahida Soto Ondansetron 2018-12-06 17:49:00 No Notes: (Same as: Zofran) MEDICATION WASTE Product Size: 4 mg Product Wasted: ___ mg Shahida Soto Flumazenil 2018-12-06 17:49:00 No Notes: (S zenaida as: Romazicon) Shahida Soto Hydromorphone 2018-12-06 17:49:00 No Notes: Same as: Dilaudid [facility] Fentanyl 2018-12-06 17:49:00 No Notes: (Same as: Sublimaze) Preservative free. [facility] Hydralazine 2018-12-06 17:49:00 No Notes: (Same as: Apresoline) Push over 5 minutes [facility] dexamethasone (ANES) 2018-12-06 17:33:00 No Route: IV, Drug form: INJ, ONCE, Stop date: 12/06/18 12:33:00 CDT [facility] ondansetron (ANES) 2018-12-06 17:33:00 No Route: IV, Drug form: INJ, ONCE, Stop date: 12/06/18 12:33:00 [facility] 2018-12-06 17:33:00 No IV, ONCE [facility] fentaNYL ([facility]) 2018-12-06 17:33:00 No Route: IV, Drug form: INJ, ONCE, Stop date: 12/06/18 12:33:00 CDT [facility] midazolam (ANES) 2018-12-06 17:33:00 No Route: IV, Drug form: SOLN, ONCE, Stop date: 12/06/18 12:33:00 CDT [facility] propofol ([facility]) 2018-12-06 17:33:00 No Route: IV, Drug form: INJ, ONCE, Stop date: 12/06/18 12:33:00 CDT [facility] vancomycin ([facility]) 1000 mg 2018-12-06 16:45:00 No Route: IV, Drug form: INJ, Start date: 12/06/18 11:45:00 CDT, Stop date: 12/06/18 12:45:00 CDT [facility] Lactated Ringers Injection IV ([facility]) 1000 mL 2018-12-06 16:45:00 No Route: IV, Total Volume: 1,000, Start date: 12/06/18 11:45:00 CDT, Stop date: 12/06/18 12:45:00 CDT [facility] Calcium Chloride 0.0014 MEQ/ML / Potassi um Chloride 0.004 MEQ/ML / Sodium Chloride 0.103 MEQ/ML / Sodium Lactate 0.028 MEQ/ML Injectable Solution 2018-12-06 16:00:00 No 1,000 mL, Rate: 25 ml/hr, Infuse over: 40 hr, Route: IV, Dosing Weight 58.778 kg, Total Volume: 1,000, Start date: 12/06/18 11:00:00 CDT, Duration: 30 day, Stop date: 01/05/19 10:59:00 CDT, 1.66, m2 Shahida Soto vancomycin + Sodium Chloride 0.9% IV 250 mL 2018-12-05 15:00:00 No 2001 mg: infuse over 2.5 hours For adult patients only: Round to nearest 250 mg per Medical Staff approval MEDICATION WASTE Product Size: 1000 mg Product Wasted: ___ mg Shahida Soto Spironolactone 2018-12-05 14:00:00 No Notes: (Same As: Aldactone) Shahida Soto Ambien 2018-12-05 02:00:00 No Notes: (Same As: Ambien) Shahida Soto vancomycin + Sodium Chloride 0.9% IV 250 mL 2018-12-04 07:00:00 No 2001 mg: infuse over 2.5 hours For adult patients only: Round to nearest 250 mg per Medical Staff approval MEDICATION WASTE Product Size: 1000 mg Product Wasted: ___ mg Shahida Soto Adderall 2018-12-04 03:39:00 Yes 30 mg, PO, BID, 0 Refill(s) Shahida Soto Enoxaparin 2018-12-04 03:00:00 No Notes: (S zenaida as: Lovenox) [facility] Vancomycin 2018-12-04 03:00:00 No 2001 mg: infuse over 2.5 hours For adult patients only: Round to nearest 250 mg per Medical Staff approval [facility] Vancomycin 2018-12-04 02:09:00 No 2001 mg: infuse over 2.5 hours For adult patients only: Round to nearest 250 mg per Medical Staff approval MEDICATION WASTE Product Size: 1000 mg Product Wasted: ___ mg Shahida Soto Dextrose 50% Syringe 2018-12-04 02:07:00 No 25 gm, 50 mL, Route: IVP, Drug Form: INJ, Dosing Weight 126.364, kg, PRN, PRN Blood Glucose Results, Start date: 12/03/18 21:07:00 CDT, Duration: 30 day, Stop date: 01/02/19 21:06:00 CDT [facility] Glucagon 2018-12-04 02:07:00 No 1 mg, Route: IM, Drug form: PDR/INJ, PRN, Dosing Weight 126.364, kg, PRN Blood Glucose Results, Start date: 12/03/18 21:07:00 CDT, Duration: 30 day, Stop date: 01/02/19 21:06:00 CDT [facility] Bisacodyl 2018-12-04 02:07:00 No Notes: (Same As: Dulcolax, Bisco-Lax) [facility] Ondansetron 2018-12-04 02:07:00 No Notes: (Same as: Zofran) MEDICATION WASTE Product Size: 4 mg Product Wasted: ___ mg [facility] Melatonin 2018-12-04 02:07:00 No Notes: (Sa me as: Melatonin) [facility] Acetaminophen 2018-12-04 02:07:00 No Notes: Do not exceed 4 gm/day. (Same as: Tylenol) [facility] Hydromorphone 2018-12-04 02:06:00 No Notes: Same as: Dilaudid [facility] Tramadol 2018-12-04 02:06:00 No Notes: Not to exceed 400mg/day. (Same As: Ultram) [facility] LR IV 1,000 mL 2018-12-04 02:05:00 No 1,000 mL, Rate: 125 ml/hr, Infuse over: 8 hr, Route: IV, Dosing Weight 126.364 kg, Total Volume: 1,000, Start date: 12/03/18 21:05:00 CDT, Duration: 30 day, Stop date: 01/02/19 21:04:00 CDT, 2.47, m2 [facility] Calcium Gluconate 2018-12-04 02:05:00 No Notes: WASTE: F/P - Sink; E - Municipal Trash Bin [facility] Potassium Chloride 2018-12-04 02:05:00 No Notes: (Same as: K-Dur 20) "Do Not Crush" Give with food and full glass of water For patients unable to swallow tablet, dissolve in one half glass of water. Allow about 2 minutes for the tablets to disintegrate. Stir before giving to prepare slurry and administer. Please exclude Patient s with feeding tube less than 14 Belgian (Dobhoff, J-tube etc) and pediatric and patients. Shahida Soto Magnesium Sulfate 2018-12-04 02:05:00 No Notes: WASTE: F/P - Sink; E - Municipal Trash Bin Shahida Soto potassium phosphate 2018-12-04 02:05:00 No Notes: (Same as: K Phosphate.) Do not infuse phosphorous concurrently in the same line as TPN or IVF that contains calcium. For double lumen central lines, phosphorous may be infused in a separate lumen from TPN. 1 mMol phoshate has 1.47 mEq potassium Infuse over 4 hours Shahida Soto sodium phosphate 2018-12-04 02:05:00 No Notes: Infuse over 4 hour. Do not infuse phosphorous concurrently in the same line as TPN or IVF that contains calcium. For double lumen central lines, phosphorous may be infused in a separate lumen from TPN. Shahida cintron Magnesium Oxide 2018-12-04 02:05:00 No Notes: (Same as: Mag-Ox 400) Magnesium oxide [id number] elemental magnesium Dose=____mg magnesium oxide (___mg elemental magnesium) Shahida bravo potassium phosphate-sodium phosphate 250 mg-280 mg-160 mg oral powder for reconstitution 2018-12-04 02:05:00 No Notes: (Same as: Phos-NaK) Each 1.5 gm pkt has 250mg phosphorous. Mix w/2.5oz water and stir. Shahida Soto Morphine 2018-12-04 01:56:00 No 4 mg, Route: IVP, ONCE, Dosing Weight 126.364, kg, Priority: STAT, Start date: 12/03/18 20:56:00 CDT, Stop date: 12/03/18 20:56:00 CDT Shahida bravo Ondansetron 2018-12-04 01:56:00 No 4 mg, Route: IVP, Drug form: INJ, ONCE, Dosing Weight 126.364, kg, Priority: STAT, Start date: 12/03/18 20:56:00 CDT, Stop date: 12/03/18 20:56:00 CDT Md christie Soto Sodium Chloride 0.9% (Bolus) IV 2018-12-03 23:40:00 No 1,000 mL, 1000 ml/hr, Infuse Over: 1 hr, Route: IV, 1,000, Drug form: INJ, ONCE, Priority: STAT, Dosing Weight 126.364 kg, Start date: 12/03/18 18:40:00 CDT, Stop date: 12/03/18 18:40:00 CDT [facility] Morphine 2018-12-03 23:40:00 No 4 mg, Route: IVP, ONCE, Dosing Weight 126.364, kg, Priority: STAT, Start date: 12/03/18 18:40:00 CDT, Stop date: 12/03/18 18:40:00 CDT [facility] Vancomycin 2018-12-03 23:40:00 No 1,000 mg, Route: IVPB, ONCE, Dosing Weight 126.364, kg, Priority: STAT, Start date: 12/03/18 18:40:00 CDT, Stop date: 12/03/18 18:40:00 CDT, ABX Indication: Skin/Soft Tissue Infection [facility] Saline Flush 0.9% 2018-12-03 21:16:00 No Notes: (Same as: BD Posiflush) [facility] linezolid 600 mg oral tablet 2018-10-12 19:51:00 Yes 600 mg = 1 tab, PO, [id number], X 10 day, # 20 tab, 0 Refill(s), Pharmacy: [facility] [id number] [facility] Morphine 2018-10-12 04:38:00 No Not es: (Same as:MORPhine Sulfate) [facility] linezolid 2018-10-11 20:00:00 No Notes: Protect from light. (Same as: Zyvox) [facility] Vancomycin 2018-10-11 19:00:00 No 2001 mg: infuse over 2.5 hours For adult patients only: Round to nearest 250 mg per Medical Staff approval MEDICATION WASTE Product Size: 1000 mg Product Wasted: ___ mg [facility] Lovenox 2018-10-11 17:00:00 No Notes: (Same as: Lovenox) [facility] Vancomycin 2018-10-11 16:46:00 No 1 ea, Route: MISC, ONCALL, Dosing Weight 133.182, kg, Priority: STAT, Start date: 10/11/18 10:46:00 DAIRY NUTRITIONIST, Duration: 1 day, Stop date: 10/12/18 10:45:00 DAIRY NUTRITIONIST, Pharmacy to dose, ABX Indication: Urinary Tract Infection Shahida Butterfieldien 2018-10-11 16:46:00 No Notes: (Same As: María) [facility] Acetaminophen 300 MG / Codeine Phosphate 30 MG Oral Tablet [Tylenol with Codeine #3] 2018-10-11 16:46:00 No Notes: Do not exceed 4gm/day of acetaminophen. (Same as: Tylenol with Codeine # 3) [facility] Dextrose 50% Syringe 2018-10-11 16:12:00 No 25 gm, 50 mL, Route: IVP, Drug Form: INJ, Dosing Weight 133.182, kg, PRN, PRN Blood Glucose Results, Start date: 10/11/18 10:12:00 DAIRY NUTRITIONIST, Duration: 30 day, Stop date: 11/10/18 11:11:00 CDT [facility] Glucagon 2018-10-11 16:12:00 No 1 mg, Route: IM, Drug form: PDR/INJ, PRN, Dosing Weight 133.182, kg, PRN Blood Glucose Results, Start date: 10/11/18 10:12:00 DAIRY NUTRITIONIST, Duration: 30 day, Stop date: 11/10/18 11:11:00 T [facility] Docusate 2018-10-11 15:00:00 No Notes: (Same as: Colace) (Do Not Crush) [facility] Dextrose 50% Syringe 2018-10-11 14:50:00 No 25 gm, 50 mL, Route: IVP, Drug Form: INJ, Dosing Weight 133.182, kg, PRN, PRN Blood Glucose Results, Start date: 10/11/18 8:50:00 DAIRY NUTRITIONIST, Duration: 30 day, Stop date: 11/10/18 9:49:00 CDT [facility] Glucagon 2018-10-11 14:50:00 No 1 mg, Route: IM, Drug form: PDR/INJ, PRN, Dosing Weight 133.182, kg, PRN Blood Glucose Results, Start date: 10/11/18 8:50:00 DAIRY NUTRITIONIST, Duration: 30 day, Stop date: 11/10/18 9:49:00 CDT Shahida Soto Ondansetron 2018-10-11 14:50:00 No Notes: (Same as: Michael) MEDICATION WASTE Product Size: 4 mg Product Wasted: ___ mg Shahida Soto COLLAGENASE 0.25 UNT/MG Topical Ointment [Santyl] 2018-10-11 11:26:00 No 1 appl, TOP, Daily, # 15 gm, 0 Refill(s) Shahida Multaniann Spironolactone 2018-10-11 11:26:00 Yes 50 mg, PO, Daily, # 60 tab, 0 Refill(s) Shahida [place] Zolpidem tartrate 10 MG Oral Tablet [Ambien] 2018-10-11 11:26:00 Yes 10 mg = 1 tab, PO, Bedtime, # 14 tab, 0 Refill(s) Shahida [place] Acetaminophen 325 MG / Hydrocodone Bitartrate 5 MG Oral Tabl et [[place] 5/325] 2018-10-11 09:20:00 No 1 tab, Route: PO, Drug Form: TAB, Dosing Weight 133.005, kg, ONCE, STAT, Start date: 10/11/18 3:20:00 DAIRY NUTRITIONIST, Stop date: 10/11/18 3:20:00 DAIRY NUTRITIONIST Shahida Soto Ibuprofen 2018-10-11 07:55:00 No 600 mg, Route: PO, Drug form: TAB, ONCE, Dosing Weight 133.005, kg, Priority: STAT, Start date: 10/11/18 1:55:00 DAIRY NUTRITIONIST, Stop date: 10/11/18 1:55:00 DAIRY NUTRITIONIST [facility] Vancomycin 2018-10-11 05:27:00 No 2001 mg: infuse over 2.5 hours For adult patients only: Round to nearest 250 mg per Medical Staff approval MEDICATION WASTE Product Size: 1000 mg Product Wasted: ___ mg Shahida Soto Minocycline 2018-10-05 11:26:00 No 100 mg, PO, BID, 0 Refill(s) Shahida Soto Acetaminophen 300 MG / Codeine Phosphate 30 MG Oral Tablet [Tylenol with Codeine #3] 2018-09-06 10:04:00 No 1 tab, PO, Q4H, PRN Pain, not to exceed 4000 mg acetaminophen per day, X 3 day, # 12 tab, 0 Refill(s) Shahida Soto Ondansetron 4 MG Disintegrating Tablet [Zofran] 2018-09-06 10:04 :00 No 4 mg = 1 tab, PO, TID, # 15 tab, 0 Refill(s) Shahida Soto Morphine 2018-09-06 08:32:00 No Not es: (Same as:MORPhine Sulfate) Shahida Soto Pepcid 2018-09-06 08:32:00 No Notes: (Same as: Pepcid) Can be dilute in 5-10cc NS IVP: Slow IV push over at least 2 minutes. Shahida Soto Zofran 2018-09-06 08:31:00 No Notes: (Same as: Zofran) MEDICATION WASTE Product Size: 4 mg Product Wasted: ___ mg Shahida Soto Morphine 2018-09-06 06:58:00 No 4 mg, Route: IVP, ONCE, Dosing Weight 120.455, kg, Priority: STAT, Start date: 09/06/18 0:58:00 DAIRY NUTRITIONIST, Stop date: 09/06/18 0:58:00 DAIRY NUTRITIONIST Shahida Soto Zofran 2018-09-06 06:58:00 No 4 mg, Route: IVP, Drug form: INJ, ONCE, Dosing Weight 120.455, kg, Priority: STAT, Start date: 09/06/18 0:58:00 DAIRY NUTRITIONIST, Stop date: 09/06/18 0:58:00 DAIRY NUTRITIONIST [facility] Charles Sodium Chloride 0.9% (Bolus) IV 2018-09-06 06:57:00 No 1,000 mL, Infuse Over: 1 hr, Route: IV, ONCE, Priority: STAT, Dosing Weight 120.455 kg, Start date: 09/06/18 0:57:00 DAIRY NUTRITIONIST, Stop date: 09/06/18 0:57:00 DAIRY NUTRITIONIST Shahida Soto Acetaminophen 300 MG / Codeine Phosphate 30 MG Oral Tablet [Tylenol with Codeine #3] 2018-08-30 19:59:00 No 1 tab, PO, Q12H, PRN Pain, X 5 day, # 10 tab, 0 Refill(s) Shahida Soto heparin sodium, porcine 2500 UNT/ML Injectable Solution 2018-08-30 03:00:00 No Notes: porcine heparin M laceyal Charles Vancomycin 2018-08-28 02:00:00 No 2001 mg: infuse over 2.5 hours For adult patients only: Round to nearest 250 mg per Medical Staff approval MEDICATION WASTE Product Size: 1000 mg Product Wasted: ___ mg Shahida Soto Saline Flush 0.9% 2018-08-27 22:00:00 No Notes: (Same as: BD Posiflush) Shahida Soto Lidocaine Hydrochloride 10 MG/ML Injectable Solution 08-27 22:00:00 No Notes: (Same as: Xylocaine) Shahida Soto Saline Flush 0.9% 2018-08-27 21:38:00 No Notes: (Same as: BD Posiflush) Shahida Soto morphine Sulfate 2018-08-26 21:06:00 No Notes: (Same as:MORPhine Sulfate) Shahida Soto vancomycin + Sodium Chloride 0.9% IV 250 mL 2018-08-25 22:00:00 No 2001 mg: infuse over 2.5 hours For adult patients only: Round to nearest 250 mg per Medical Staff approval MEDICATION WASTE Product Size: 1000 mg Product Wasted: ___ mg Shahida Soto vancomycin + Sodium Chloride 0.9% IV 250 mL 2018-08-25 04:00:00 No 2001 mg: infuse over 2.5 hours For adult patients only: Round to nearest 250 mg per Medical Staff approval MEDICATION WASTE Product Size: 1000 mg Product Wasted: ___ mg Shahida Soto Tramadol 2018-08-25 02:00:00 No Notes: Not to exceed 400mg/day. (Same As: Ultram) [facility] Charles sennosides, ALF 2018-08-25 01:48:00 No Notes: (Same as: Senokot) Shahida Soto Judith Langes 2018-08-25 01:48:00 No Notes: (Same As: Natalieon Jaime) "Do Not Crush" Shahida Soto Melatonin 2018-08-25 01:48:00 No Notes: (Sa me as: Melatonin) Shahida Soto Morphine 2018-08-25 01:47:00 No 2 mg, 1 mL, Route: IVP, Drug form: SOLN, Q4H, Dosing Weight 127.727, kg, PRN Pain Score 7-10, Start date: 08/24/18 19:47:00 DAIRY NUTRITIONIST, Duration: 30 day, Stop date: 09/23/18 19:46:00 [facility] Acetaminophen 325 MG / Hydrocodone Bitartrate 10 MG Or al Tablet [[place] 10/325] 2018-08-25 01:47:00 No Note s: Do not exceed 4gm/day of acetaminophen. (Same as: [place] 325/10) [facility] Vancomycin 2018-08-24 21:00:00 No 2001 mg: infuse over 2.5 hours For adult patients only: Round to nearest 250 mg per Medical Staff approval MEDICATION WASTE Product Size: 1000 mg Product Wasted: ___ mg [facility] Dextrose 50% Syringe 2018-08-24 20:32:00 No 12.5 gm, 25 mL, Route: IVP, Drug Form: INJ, Dosing Weight 136.364, kg, PRN, PRN Blood Glucose Results, Start date: 08/24/18 14:32:00 DAIRY NUTRITIONIST, Duration: 30 day, Stop date: 09/23/18 14:31:00 [facility] Glucagon 2018-08-24 20:32:00 No 1 mg, Route: IM, Drug form: PDR/INJ, PRN, Dosing Weight 136.364, kg, PRN Blood Glucose Results, Start date: 08/24/18 14:32:00 DAIRY NUTRITIONIST, Duration: 30 day, Stop date: 09/23/18 14:31:00 [facility] Ondansetron 2018-08-24 20:32:00 No Notes: (Same as: Michael) MEDICATION WASTE Product Size: 4 mg Product Wasted: ___ mg [facility] Acetaminophen 2018-08-24 20:32:00 No Notes: Do not exceed 4 gm/day. (Same as: Tylenol) [facility] Morphine 2018-08-24 20:22:00 No 4 mg, Route: IVP, ONCE, Dosing Weight 120.455, kg, Start date: 08/24/18 14:22:00 DAIRY NUTRITIONIST, Stop date: 08/24/18 14:22:00 [facility] Zofran 2018-08-24 13:41:00 No Notes: (Same as: Michael) MEDICATION WASTE Product Size: 4 mg Product Wasted: ___ mg Shahida Soto Morphine 2018-08-24 13:41:00 No Not es: (Same as:MORPhine Sulfate) Shahida Soto Vancomycin 2018-08-24 13:35:00 No 2001 mg: infuse over 2.5 hours For adult patients only: Round to nearest 250 mg per Medical Staff approval MEDICATION WASTE Product Size: 1000 mg Product Wasted: ___ mg [facility] Charles doxycycline hyclate 100 MG Oral Tablet 2018-05-22 17:14:00 No 100 mg = 1 tab, PO, Q12H, X 10 day, # 20 tab, 0 Refill(s), Pharmacy: [facility] [id number] [facility] Charles Docusate Sodium 100 MG Oral Capsule [Colace] 2018-05-22 17:08:00 No 100 mg = 1 cap, PO, BID, PRN as needed for constipation, # 14 cap, 0 Refill(s), Pharmacy: [facility] [id number] [facility] Acetaminophen 300 MG / Codeine Phosphate 30 MG Oral Tablet [Tylenol with Codeine #3] 2018-05-22 17:08:00 No 1 tab, PO, Q6H, PRN Pain Score 6-10, X 5 day, # 20 tab, 0 Refill(s) [facility] Nerissa cintron Docusate Sodium 100 MG Oral Capsule [Colace] 2018-05-22 14:00:00 No Notes: (Same as: Colace) (Do Not Crush) [facility] Acetaminophen 325 MG / Hydrocodone Bitartrate 5 MG Oral Tabl et [[place] 5/325] 2018-05-21 15:02:00 No Notes: (Same as: [place] 325/5) Do not exceed 4gm/day of acetaminophen. Shahida Stevens vancomycin + Sodium Chloride 0.9% IV 250 mL 2018-05-20 08:00:00 No 2001 mg: infuse over 2.5 hours For adult patients only: Round to nearest 250 mg per Medical Staff approval MEDICATION WASTE Product Size: 1000 mg Product Wasted: ___ mg [facility] Charles vancomycin 2018-05-19 20:00:00 No 2001 mg: infuse over 2.5 hours For adult patients only: Round to nearest 250 mg per Medical Staff approval MEDICATION WASTE Product Size: 1000 mg Product Wasted: ___ mg Shahida Soto vancomycin + Sodium Chloride 0.9% IV 100 mL 2018-05-19 19:30:00 No Notes: TIME CRITICAL MEDICATION (Same As: Vancocin) For adult patients only: Round to nearest 250 mg per Medical Staff approval [facility] Ceftriaxone 2018-05-19 17:00:00 No Notes: (Same As: Rocephin). MEDICATION WASTE Product Size: 2000 mg Product Wasted: ___ mg [facility] Phenergan 2018-05-19 15:36:00 No Notes: (Sa me as: Phenergan) [facility] Morphine 2018-05-19 04:11:00 No 2 mg, 1 mL, Route: IVP, Drug form: SOLN, ONCE, Dosing Weight 120.909, kg, Start date: 05/18/18 23:11:00 CDT, Stop date: 05/18/18 23:11:00 CDT [facility] bravo morphine Sulfate 2018-05-19 02:31:00 No Notes: (Same as:MORPhine Sulfate) [facility] Acetaminophen 300 MG / Codeine Phosphate 30 MG Oral Tablet [Tylenol with Codeine #3] 2018-05-18 18:52:00 No Notes: Do not exceed 4gm/day of acetaminophen. (Same as: Tylenol with Codeine # 3) [facility] Meperidine 2018-05-18 18:51:00 No Notes: (S zenaida As: Demerol) [facility] Diphenhydramine 2018-05-18 18:51:00 No Notes: (Same as: Benadryl) [facility] Ondansetron 2018-05-18 18:51:00 No Notes: (Same as: Zofran) MEDICATION WASTE Product Size: 4 mg Product Wasted: ___ mg [facility] Promethazine 2018-05-18 18:51:00 No 6.25 mg, Route: IVPB, ONCE, Dosing Weight 120.909, kg, PRN Nausea & Vomiting, Start date: 05/18/18 13:51:00 CDT [facility] Naloxone 2018-05-18 18:51:00 No Notes: Same as Narcan [facility] Hydromorphone 2018-05-18 18:51:00 No Notes: Same as: Dilaudid [facility] Fentanyl 2018-05-18 18:51:00 No 50 microgram, Route: IVP, Q5Min, Dosing Weight 120.909, kg, PRN Pain Score 7-10, Priority: Routine, Start date: 05/18/18 13:51:00 CDT, Duration: 2 doses or times, Stop date: Limited # of times [facility] Flumazenil 2018-05-18 18:51:00 No Notes: (S zenaida as: Romazicon) [facility] Albuterol 0.83 MG/ML Inhalant Solution 2018-05-18 18:51:00 No Notes: SEE RT DOCUMENTATION (Same as: Proventil) Shahida Soto Ketorolac 2018-05-18 18:51:00 No 4 days MEDICATION WASTE Product Size: 30 mg Product Wasted: ___ mg [facility] Labetalol 2018-05-18 18:51:00 No Notes: (Same as: Normodyne, Trandate) Push over 2 minutes Give bolus over 2-3 minutes. [facility] Hydralazine 2018-05-18 18:51:00 No Notes: (Same as: Apresoline) Push over 5 minutes [facility] Acetaminophen 2018-05-18 18:51:00 No Notes: Max acetaminophen 4000 mg/day (4 gm/day). (Same as: Tylenol Extra Strength) [facility] Oxycodone 2018-05-18 18:51:00 No Notes: (Sa me as: Roxicodone) [facility] lidocaine (ANES) 2018-05-18 18:43:00 No Route: IV, Drug form: INJ, ONCE, Stop date: 05/18/18 13:43:00 [facility] 2018-05-18 18:43:00 No Route: IV, Drug form: INJ, ONCE, Stop date: 05/18/18 13:43:00 [facility] propof[facility] (ANES) 2018-05-18 18:43:00 No Route: IV, Drug form: INJ, ONCE, Stop date: 05/18/18 13:43:00 [facility] ([facility] 2018-05-18 18:43:00 No Route: IV, Drug form: INJ, ONCE, Stop date: 05/18/18 13:43:00 CDT [facility] ketOROLAC (ANES) 2018-05-18 18:43:00 No IV, ONCE [facility] fentaNYL (ANES) 2018-05-18 18:43:00 No Route: IV, Drug form: INJ, ONCE, Stop date: 05/18/18 13:43:00 CDT [facility] midazolam (ANES) 2018-05-18 18:43:00 No Route: IV, Drug form: SOLN, ONCE, Stop date: 05/18/18 13:43:00 CDT [facility] vancomycin (ANES) 1000 mg 2018-05-18 18:16:00 No Route: IV, Drug form: INJ, Start date: 05/18/18 13:16:00 CDT, Stop date: 05/18/18 14:16:00 CDT [facility] Lactated Ringers Injection IV (ANES) 1000 mL 2018-05-18 18:16:00 No Route: IV, Total Volume: 1,000, Start date: 05/18/18 13:16:00 CDT, Stop date: 05/18/18 14:16:00 CDT [facility] Sodium Chloride 0.9% IV 1,000 mL 2018-05-18 18:01:00 No 1,000 mL, Rate: 25 ml/hr, Infuse over: 40 hr, Route: IV, Dosing Weight 120.909 kg, Total Volume: 1,000, Start date: 05/18/18 13:01:00 CDT, Duration: 30 day, Stop date: 06/17/18 13:00:00 CDT, 2.41, m2 [facility] Calcium Chloride 0.0014 MEQ/ML / Potassi um Chloride 0.004 MEQ/ML / Sodium Chloride 0.103 MEQ/ML / Sodium Lactate 0.028 MEQ/ML Injectable Solution 2018-05-18 18:01:00 No 1,000 mL, Rate: 25 ml/hr, Infuse over: 40 hr, Route: IV, Dosing Weight 120.909 kg, Total Volume: 1,000, Start date: 05/18/18 13:01:00 CDT, Duration: 30 day, Stop date: 06/17/18 13:00:00 CDT, 2.41, m2 [facility] vancomycin + Sodium Chloride 0.9% IV 250 mL 2018-05-17 19:00:00 No 1,000 mg, Route: IVPB, [id number], Dosing Weight 119.091, kg, Start date: 05/17/18 14:00:00 CDT, Duration: 7 day, Stop date: 05/24/18 2:00:00 CDT, ABX Indication: Skin/Soft Tissue Infection [facility] influenza virus vaccine, inactivated 2018-05-17 08:20:35 No Notes: (Same as: Fluzone Quadrivalent, Fluarix Quadrivalent) For 3 years of age and older (0.5 mL IM) Shake well before use [facility] Vancomycin 2018-05-17 08:00:00 No 1,000 mg, Route: IVPB, Drug form: INJ, [id number], Dosing Weight 119.091, kg, Start date: 05/17/18 3:00:00 CDT, Duration: 7 day, Stop date: 05/23/18 15:00:00 CDT, ABX Indication: Pneumonia [facility] Enoxaparin 2018-05-17 08:00:00 No Notes: (S zenaida as: Lovenox) [facility] Saline Flush 0.9% 2018-05-17 07:46:00 No Notes: (Same as: BD Posiflush) [facility] Lactated Ringers IV 1,000 mL 2018-05-17 07:46:00 No 1,000 mL, Rate: 75 ml/hr, Infuse over: 13.3 hr, Route: IV, Dosing Weight 119.091 kg, Total Volume: 1,000, Start date: 05/17/18 2:46:00 CDT, Duration: 30 day, Stop date: 06/16/18 2:45:00 CDT, 2.39, m2 [facility] Ondansetron 2018-05-17 07:46:00 No Notes: (Same as: Zofran) MEDICATION WASTE Product Size: 4 mg Product Wasted: ___ mg [facility] Acetaminophen 2018-05-17 07:46:00 No Notes: Do not exceed 4 gm/day. (Same as: Tylenol) [facility] Morphine 2018-05-17 07:46:00 No 2 mg, 1 mL, Route: IVP, Drug form: SOLN, Q4H, Dosing Weight 119.091, kg, PRN Pain Score 7-10, Start date: 05/17/18 2:46:00 CDT, Duration: 30 day, Stop date: 06/16/18 2:45:00 CDT [facility] Ondansetron 2018-05-17 06:21:00 No Notes: (Same as: Zofran) MEDICATION WASTE Product Size: 4 mg Product Wasted: ___ mg [facility] Morphine 2018-05-17 06:21:00 No Not es: (Same as:MORPhine Sulfate) [facility] Vancomycin 2018-05-17 05:38:00 No 2001 mg: infuse over 2.5 hours For adult patients only: Round to nearest 250 mg per Medical Staff approval MEDICATION WASTE Product Size: 1000 mg Product Wasted: ___ mg [facility] Nitrofurantoin Monohyd/M-Cryst (Macrobid 100 Mg Capsul e) 100 Mg Capsule Nitrofurantoin Monohyd/M-Cryst (Macrobid 100 Mg Capsule) 100 Mg Capsule 2018-02-05 00:00:00 Yes Jagdish Abarca Md 100 Twic e A Day [facility] Ondansetron (Zofran Odt) 4 Mg Tab.rapdis Ondansetron ( Zofran Odt) 4 Mg Tab.rapdis 2018-02-05 00:00:00 Yes Jagdish Abarca Md 4 Every 6 Hours as needed for Nausea [facility] Methocarbamol 750 MG Oral Tablet [Robaxin] 2018-01-13 02:51:00 Yes 750 mg = 1 tab, PO, TID, PRN as needed for pain, X 7 day, # 30 tab, 0 Refill(s) Shahida Charles tramadol hydrochloride 50 MG Oral Tablet 2018-01-13 02:51:00 Yes 50 mg = 1 tab, PO, Q6H, PRN Pain, not to exceed 400 mg/day, X 5 day, # 24 tab, 0 Refill(s) Shahida Soto ibuprofen 800 mg oral tablet 2018-01-13 02:50:00 Yes 800 mg = 1 tab, PO, Q8H, PRN Fever or Pain, Take with food, X 10 day, # 30 tab, 0 Refill(s) Shahida Soto Acetaminophen 325 MG / Hydrocodone Nereyda trate 7.5 MG Oral Tablet [[place] 7.5/325] 2018-01-13 02:45:00 No Notes: Same as [place] 325-7.5mg Do not exceed 4gm/day of acetaminophen. Michael Multaniann Valium 2018-01-13 01:08:00 No Notes: (Same as: Valium) Shahida Soto Ketorolac 2018-01-13 01:08:00 No 4 days MEDICATION WASTE Product Size: 30 mg Product Wasted: ___ mg Shahida Soto Tylenol 2018-01-12 21:33:00 No Notes: Do not exceed 4 gm/day. (Same as: Tylenol) Shahida Charles Buspirone 2016-12-31 17:00:00 No Notes: ([facility] As: BuSpar) Shahida Soto Phenergan 2016-12-31 14:31:00 No Notes: ([facility] as: Phenergan) Shahida Soto Phenergan 25 mg oral tablet 2016-12-31 14:31:00 Yes 25 mg, PO, Q6H, PRN Nausea & Vomiting, X 5 day, # 20 tab, 0 Refill(s), Pharmacy: [facility] Store [id number] Shahida Soto Sodium Chloride 0.154 MEQ/ML Injectable Solution 2016-12-31 14:3 0:00 No 1,000 mL, Rate: 150 ml/hr, I nfuse over: 6.7 hr, Route: IV, Dosing Weight 109 kg, Total Volume: 1,000, Start date: 12/31/16 9:30:00 CDT, Duration: 30 day, Stop date: 01/30/17 9:29:00 CDT Shahida Soto Trazodone 2016-12-31 14:25:00 No Notes: ([facility] As: Desyrel) Shahida Soto Cipro 2016-12-31 14:00:00 No Notes: May interfere w/enteral feedings - Take 1 hr before or 2 hrs after antacids, dairy pdt & minerals. On empty stomach. [facility] Flagyl 2016-12-31 14:00:00 No Notes: (Same as: Flagyl) Take with food/ avoid alcohol [facility] Fluoxetine 2016-12-31 14:00:00 No Notes: (S zenaida as: Prozac) Shahida Soto Levsin SL 2016-12-31 13:41:00 No Notes: (Same as: Levsin) Take 30 min before meal [facility] Promethazine 2016-12-31 10:15:00 No Notes: Do not give IV push. (Same as: Phenergan) [facility] Zofran 2016-12-31 09:33:00 No 4 mg, Route: IVP, Drug form: INJ, ONCE, Dosing Weight 109.091, kg, Priority: STAT, Start date: 12/31/16 4:33:00 CDT, Stop date: 12/31/16 4:33:00 [facility] 2016-12-31 09:30:00 No 4 mg, Route: IVP, ONCE, Dosing Weight 109.091, kg, Priority: STAT, Start date: 12/31/16 4:30:00 CDT, Stop date: 12/31/16 4:30:00 CDT [facility] Rocephin 2016-12-31 06:26:00 No Notes: (Same As: Rocephin). Use with 100 mL NS and infuse over 30 min MEDICATION WASTE Product Size: 1000 mg Product Wasted: ___ mg [facility] Ondansetron 2016-12-31 04:55:00 No Notes: (Same as: Zofran) MEDICATION WASTE Product Size: 4 mg Product Wasted: ___ mg [facility] Morphine 2016-12-31 04:55:00 No Not es: (Same as:MORPhine Sulfate) [facility] Saline Flush 0.9% 2016-12-31 04:55:00 No Notes: (Same as: BD Posiflush) [facility] Sodium Chloride 0.154 MEQ/ML Injectable Solution 2016-12-31 04:5 5:00 No 1,000 mL, 2,000 ml/hr, Infus e Over: 30 minutes, Route: IV, 1,000, Drug form: INJ, ONCE, Priority: STAT, Dosing Weight 109.091 kg, Start date: 12/30/16 23:55:00 CDT, Duration: 1 doses or times, Stop date: 12/30/16 23:55:00 CDT [facility] Ciprofloxacin 500 MG Oral Tablet [Cipro] 2016-12-25 23:04:00 Yes 500 mg = 1 tab, PO, Q12H, X 7 day, # 14 tab, 0 Refill(s), Pharmacy: [facility] [id number] [facility] Acetaminophen 300 MG / Codeine Phosphate 30 MG Oral Tablet [Tylenol with Codeine #3] 2016-12-25 23:04:00 No 1 - 2 tab, PO, Q4H, PRN Pain, X 2 day, # 10 tab, 0 Refill(s) [facility] Metronidazole 500 MG Oral Tablet [Flagyl] 2016-12-25 23:04:00 Yes 500 mg = 1 tab, PO, BID, X 7 day, # 14 tab, 0 Refill(s), Pharmacy: [facility] [id number] [facility] Sodium Chloride 0.154 MEQ/ML Injectable Solution 2016-12-25 22:5 3:00 No 500 mL, 500 ml/hr, Infuse Ov er: 1 hr, Route: IV, 500, Drug form: INJ, ONCE, Priority: STAT, Dosing Weight 109.091 kg, Start date: 12/25/16 17:53:00 CDT, Duration: 1 doses or times, Stop date: 12/25/16 17:53:00 CDT [facility] Acetaminophen 300 MG / Codeine Phosphate 30 MG Oral Tablet [Tylenol with Codeine #3] 2016-12-25 22:53:00 No Notes: Do not exceed 4gm/day of acetaminophen. (Same as: Tylenol with Codeine # 3) [facility] Flagyl 2016-12-25 22:53:00 No Notes: (Same as: Flagyl) Avoid alcohol. [facility] Cipro 2016-12-25 22:53:00 No Notes: Do not refrigerate [facility] Saline Flush 0.9% 2016-12-25 19:20:00 No Notes: (Same as: BD Posiflush) [facility] Famotidine 40 MG Oral Tablet [Pepcid] 2016-07-20 04:35:00 Y es 40 mg = 1 tab, PO, Daily, # 30 tab, 0 Refill(s) Shahida Soto Sucralfate 1000 MG Oral Tablet [Carafate] 2016-07-20 04:35:00 Yes 1 gm = 1 tab, PO, TID, # 90 tab, 0 Refill(s) Shahida Soto Phenergan 25 mg oral tablet 2016-07-20 04:26:00 Yes 25 mg = 1 tab, PO, Q4H, PRN Nausea, X 5 day, # 30 tab, 0 Refill(s) Shahida Soto Diflunisal 500 MG Oral Tablet [Dolobid] 2016-07-20 04:26:00 Yes 500 mg = 1 tab, PO, Q8H, # 90 tab, 0 Refill(s) hSahida Soto Zofran 2016-07-20 03:44:00 No 4 mg, Route: IVP, Drug form: INJ, ONCE, Dosing Weight 104.545, kg, Priority: STAT, Start date: 07/19/16 21:44:00 DAIRY NUTRITIONIST, Stop date: 07/19/16 21:44:00 DAIRY NUTRITIONIST Md christie Soto Ketorolac 2016-07-20 03:28:00 No 30 mg, Route: IVP, Drug form: INJ, ONCE, Dosing Weight 104.545, kg, Priority: STAT, Start date: 07/19/16 21:28:00 DAIRY NUTRITIONIST, Stop date: 07/19/16 21:28:00 DAIRY NUTRITIONIST Md christie Soto Zofran 2016-07-20 01:40:00 No Notes: (Same as: Michael) MEDICATION WASTE Product Size: 4 mg Product Wasted: ___ mg Shahida Soto Famotidine 20 MG Oral Tablet [Pepcid] 2016-07-20 01:40:00 N o 20 mg, 1 tab, Route: PO, ONCE, Dosing Weight 104.545, kg, Start date: 07/19/16 19:40:00 DAIRY NUTRITIONIST, Stop date: 07/19/16 19:40:00 DAIRY NUTRITIONIST Dl emocristina Soto Sodium Chloride 0.154 MEQ/ML Injectable Solution 2016-07-20 01:4 0:00 No 1,000 mL, 1,000 ml/hr, Infus e Over: 1 hr, Route: IV, 1,000, Drug form: INJ, ONCE, Priority: STAT, Dosing Weight 104.545 kg, Start date: 07/19/16 19:40:00 DAIRY NUTRITIONIST, Duration: 1 doses or times, Stop date: 07/19/16 19:40:00 DAIRY NUTRITIONIST [facility] GI cocktail 2016-07-20 01:39:00 No 30 mL, Route: PO, Dosing Weight 104.545, kg, ONCE, STAT, Start date: 07/19/16 19:39:00 DAIRY NUTRITIONIST, Stop date: 07/19/16 19:39:00 DAIRY NUTRITIONIST [facility] Carafate 2016-07-20 01:39:00 No Notes: May interfere w/enteral feeds - Take 1 hr before or 2 hr after antacids, dairy pdt, meals & minerals - On empty stomach. (Same As: Carafate) Efraín Soto Cyclobenzaprine hydrochloride 10 MG Oral Tablet [Flexeril] 2016-04-23 08:02:00 Yes 10 mg, PO, TID, PRN Muscle Spasm, X 10 day, # 30 tab, 0 Refill(s) [facility] tramadol hydrochloride 50 MG Oral Tablet 2016-04-23 06:34:00 No 50 mg, Route: PO, Drug form: TAB, ONCE, Dosing Weight 94.091, kg, Priority: STAT, Start date: 04/23/16 1:34:00 CDT, Stop date: 04/23/16 1:34:00 CDT [facility] Valium 2016-04-23 06:33:00 No 10 mg, Route: PO, ONCE, Dosing Weight 94.091, kg, Start date: 04/23/16 1:33:00 CDT, Stop date: 04/23/16 1:33:00 CDT [facility] Ketorolac 2016-04-23 06:33:00 No 60 mg, Route: IM, Drug form: INJ, ONCE, Dosing Weight 94.091, kg, Priority: STAT, Start date: 04/23/16 1:33:00 CDT, Stop date: 04/23/16 1:33:00 CDT [facility] [place] Methocarbamol 750 MG Oral Tablet [Robaxin] 2016-04-16 08:36:00 Yes 750 mg = 1 tab, PO, TID, PRN as needed for pain, X 10 day, # 30 tab, 0 Refill(s) [facility] Acetaminophen 300 MG / Codeine Phosphate 30 MG Oral Tablet [Tylenol with Codeine #3] 2016-04-16 08:36:00 No 1 - 2 tab, PO, Q4H, PRN Pain, X 2 day, # 24 tab, 0 Refill(s) [facility] Flexeril 2016-04-16 08:20:00 No 10 mg, Route: PO, ONCE, Dosing Weight 103.182, kg, Priority: STAT, Start date: 04/16/16 3:20:00 CDT, Stop date: 04/16/16 3:20:00 CDT [facility] Zofran ODT 2016-04-16 07:09:00 No 4 mg, Route: PO, Drug form: TABDIS, ONCE, Dosing Weight 103.182, kg, Priority: STAT, Start date: 04/16/16 2:09:00 CDT, Stop date: 04/16/16 2:09:00 CDT [facility] Dilaudid 2016-04-16 07:09:00 No 1 mg, Route: IM, ONCE, Dosing Weight 103.182, kg, Priority: STAT, Start date: 04/16/16 2:09:00 CDT, Stop date: 04/16/16 2:09:00 CDT [facility] promethazine 12.5 mg oral tablet 2016-04-14 08:15:00 Yes 12.5 mg = 1 tab, PO, Q6H, PRN Nausea & Vomiting, X 5 day, # 20 tab, 0 Refill(s) [facility] Hyoscyamine Sulfate 0.125 MG Sublingual Tablet [Levsin] 2016-04-14 08:14:00 Yes 0.125 mg = 1 ta b, SL, Q6H, PRN abdominal spasm, # 28 tab, 0 Refill(s) [facility] omeprazole 40 mg oral delayed release capsule 2016-04-14 08:13:0 0 Yes 40 mg = 1 cap, PO, Daily, # 30 cap, 0 Refill(s) [facility] Promethazine 2016-04-14 08:04:00 No Notes: Do not give IV push. (Same as: Phenergan) [facility] GI cocktail 2016-04-14 07:12:00 No 30 mL, Route: PO, Dosing Weight 103.182, kg, ONCE, STAT, Start date: 04/14/16 2:12:00 CDT, Stop date: 04/14/16 2:12:00 CDT [facility] pantoprazole 2016-04-14 07:12:00 No 40 mg, Route: IVP, ONCE, Dosing Weight 103.182, kg, Priority: STAT, Start date: 04/14/16 2:12:00 CDT, Stop date: 04/14/16 2:12:00 CDT [facility] Morphine 2016-04-14 05:57:00 No 4 mg, Route: IVP, Drug form: INJ, ONCE, Dosing Weight 103.182, kg, Priority: STAT, Start date: 04/14/16 0:57:00 CDT, Stop date: 04/14/16 0:57:00 CDT [facility] dorothea [place] pantoprazole 2016-04-14 05:57:00 No 40 mg, Route: IVP, ONCE, Dosing Weight 103.182, kg, For IV push reconstitute with 10 ml 0.9% sodium chloride and push over at least 3 minutes, Priority: STAT, Start date: 04/14/16 0:57:00 CDT, Stop date: 04/14/16 0:57:00 CDT [place]a rider [place] Ondansetron 2016-04-14 05:57:00 No 4 mg, Route: IVP, ONCE, Dosing Weight 103.182, kg, Priority: STAT, Start date: 04/14/16 0:57:00 CDT, Stop date: 04/14/16 0:57:00 CDT [facility] Sodium Chloride 0.154 MEQ/ML Injectable Solution 2016-04-14 05:5 7:00 No 1,000 mL, 2,000 ml/hr, Infus e Over: 30 minutes, Route: IV, ONCE, Priority: STAT, Dosing Weight 103.182 kg, Start date: 04/14/16 0:57:00 CDT, Duration: 1 doses or times, Stop date: 04/14/16 0:57:00 CDT [facility] Saline Flush 0.9% 2016-04-14 05:57:00 No Notes: (Same as: BD Posiflush) Shahida Soto Reglan 2016-02-24 06:09:00 No 10 mg, Route: IVP, Drug form: INJ, ONCE, Dosing Weight 100.455, kg, Priority: STAT, Start date: 02/24/16 1:09:00 CDT, Stop date: 02/24/16 1:09:00 CDT Mendoza Soto Levsin 2016-02-24 06:09:00 No Notes: (Same as: Dixie) MEDICATION WASTE Product Size: 0.5 mg Product Wasted: ___ mg Shahida Soto Dicyclomine Hydrochloride 20 MG Oral Tablet [Bentyl] 2 05:48:00 Yes 20 mg = 1 tab, PO, QID, # 28 tab, 0 Refi ll(s) Shahida Soto Metoclopramide 10 MG Oral Tablet [Reglan] 2016-02-24 05:48:00 Yes 10 mg = 1 tab, PO, QID-Before Meals, X 10 day, # 40 tab, 0 Refill(s) Shahida Soto Morphine 2016-02-24 05:09:00 No 4 mg, Route: IVP, Drug form: INJ, ONCE, Dosing Weight 100.455, kg, Priority: STAT, Start date: 02/24/16 0:09:00 CDT, Stop date: 02/24/16 0:09:00 CDT [facility] dorothea Soto Magnesium Sulfate 2016-02-24 04:50:00 No 1 gm, Route: IV, ONCE, Dosing Weight 100.455, kg, Start date: 02/23/16 23:50:00 CDT, Stop date: 02/23/16 23:50:00 CDT [facility] Zofran 2016-02-24 04:34:00 No 4 mg, Route: IVP, Drug form: INJ, ONCE, Dosing Weight 100.455, kg, Priority: STAT, Start date: 02/23/16 23:34:00 CDT, Stop date: 02/23/16 23:34:00 [facility] Sodium Chloride 0.154 MEQ/ML Injectable Solution 2016-02-24 04:3 4:00 No 1,000 mL, 1,000 ml/hr, Infus e Over: 1 hr, Route: IV, ONCE, Priority: STAT, Dosing Weight 100.455 kg, Start date: 02/23/16 23:34:00 CDT, Duration: 1 doses or times, Stop date: 02/23/16 23:34:00 CDT Shahida Multaniann Saline Flush 0.9% 2016-02-24 03:26:00 No Notes: (Same as: BD Posiflush) Shahida Multaniann Morphine 2016-01-17 05:13:00 No Not es: (Same as:MORPhine Sulfate) Shahida Soto Hyoscyamine Sulfate 0.125 MG Oral Tablet [Levsin] 2016-01-17 04:31:00 Yes 0.125 mg = 1 tab, PO, QID, PRN Spasm, # 40 tab, 0 Refill(s) Shahida Soto Ondansetron 4 MG Disintegrating Tablet [Zofran] 2016-01-17 04:29 :00 Yes 4 mg = 1 tab, PO, BID, PRN N ausea and Vomiting, Dissolve tab under tongue, X 5 day, # 10 tab, 0 Refill(s) Shahida valdes Bentyl 2016-01-17 04:00:00 No 20 mg, Route: IM, ONCE, Dosing Weight 100.455, kg, Start date: 01/16/16 23:00:00 CDT, Stop date: 01/16/16 23:00:00 CDT Shahida [facility] Zofran 2016-01-17 03:59:00 No 4 mg, Route: IVP, Drug form: INJ, ONCE, Dosing Weight 100.455, kg, Priority: STAT, Start date: 01/16/16 22:59:00 CDT, Stop date: 01/16/16 22:59:00 CDT [facility] [place] Morphine 2016-01-17 02:57:00 No Not es: (Same as:MORPhine Sulfate) Shahida oSto Ondansetron 2016-01-17 02:40:00 No Notes: (Same as: Zofran) MEDICATION WASTE Product Size: 4 mg Product Wasted: ___ mg Shahida Multaniann Famotidine 2016-01-17 02:40:00 No Notes: (Same as: Pepcid) Can be dilute in 5-10cc NS IVP: Slow IV push over at least 2 minutes. Shahida Soto Sodium Chloride 0.154 MEQ/ML Injectable Solution 2016-01-17 02:4 0:00 No 1,000 mL, 1,000 ml/hr, Infus e Over: 1 hr, Route: IV, 1,000, Drug form: INJ, ONCE, Priority: STAT, Dosing Weight 100.455 kg, Start date: 01/16/16 21:40:00 CDT, Duration: 1 doses or times, Stop date: 01/16/16 21:40:00 CDT Shahida Soto Promethazine Hydrochloride 25 MG Oral Tablet [Phenergan] 2015-10-13 11:03:00 Yes 25 mg = 1 tab, PO, Q 6H, PRN Nausea, X 4 day, # 15 tab, 0 Refill(s) Shahida Soto Ranitidine 150 MG Oral Tablet [Zantac] 2015-10-13 11:03:00 Yes 150 mg = 1 tab, PO, BID, # 60 tab, 0 Refill(s) Shahida Soto Dicyclomine Hydrochloride 20 MG Oral Tablet [Bentyl] 2 11:03:00 Yes 20 mg = 1 tab, PO, QID-Before Meals, # 4 0 tab, 0 Refill(s) Shahida Soto Promethazine 2015-10-13 09:39:00 No Notes: Do not give IV push. (Same as: Phenergan) Shahida Soto Sodium Chloride 0.154 MEQ/ML Injectable Solution 2015-10-13 09:3 2:00 No 1,000 mL, 1000 ml/hr, Infuse Over: 1 hr, Route: IV, 1,000, Drug form: INJ, ONCE, Priority: STAT, Dosing Weight 101.818 kg, Start date: 10/13/15 3:32:00, Duration: 1 doses or times, Stop date: 10/13/15 3:32:00 Shahida Soto Morphine 2015-10-13 08:13:00 No Not es: (Same as:MORPhine Sulfate) Shahida Soto Ondansetron 2015-10-13 08:13:00 No Notes: (Same as: Zofran) MEDICATION WASTE Product Size: 4 mg Product Wasted: ___ mg Shahida Soto Famotidine 2015-10-13 08:13:00 No Notes: (Same as: Pepcid) Can be dilute in 5-10cc NS IVP: Slow IV push over at least 2 minutes. [facility] GI cocktail 2015-10-13 08:13:00 No Notes: G.I. Cocktail = antacid with simethicone 22.5 mL - lidocaine viscous 7.5 mL [facility] Saline Flush 0.9% 2015-10-13 08:13:00 No Notes: (Same as: BD Posiflush) [facility] Sodium Chloride 0.154 MEQ/ML Injectable Solution 2015-10-13 08:1 3:00 No 1,000 mL, 1000 ml/hr, Infuse Over: 1 hr, Route: IV, 1,000, Drug form: INJ, ONCE, Priority: STAT, Dosing Weight 101.818 kg, Start date: 10/13/15 2:13:00, Duration: 1 doses or times, Stop date: 10/13/15 2:13:00 [facility] Diphenhydramine 2015-07-04 06:52:00 No 25 mg, Route: IVP, ONCE, Dosing Weight 107.273, kg, Priority: STAT, Start date: 07/04/15 0:52:00, Stop date: 07/04/15 0:52:00 [facility] Famotidine 2015-07-04 06:52:00 No 20 mg, Route: IVP, ONCE, Dosing Weight 107.273, kg, Priority: STAT, Start date: 07/04/15 0:52:00, Stop date: 07/04/15 0:52:00 [facility] Morphine 2015-07-04 06:52:00 No 4 mg, Route: IVP, ONCE, Dosing Weight 107.273, kg, Priority: STAT, Start date: 07/04/15 0:52:00, Stop date: 07/04/15 0:52:00 [facility] Sodium Chloride 0.154 MEQ/ML Injectable Solution 2015-07-04 06:5 2:00 No 1,000 mL, 1,000 ml/hr, Infus e Over: 1 hr, Route: IV, ONCE, Priority: STAT, Dosing Weight 107.273 kg, Start date: 07/04/15 0:52:00, Duration: 1 doses or times, Stop date: 07/04/15 0:52:00 Michael melgar [place] GI cocktail 2015-07-04 06:52:00 No 30 mL, Route: PO, Dosing Weight 107.273, kg, ONCE, STAT, Start date: 07/04/15 0:52:00, Stop date: 07/04/15 0:52:00 [facility] [place] Acetaminophen 325 MG / Hydrocodone Bitartrate 5 MG Oral Tabl et 2015-05-17 10:39:00 No Notes: (Sa me as: [place] 325/5) Do not exceed 4gm/day of acetaminophen. [facility] Ibuprofen 2015-05-17 07:14:00 No 600 mg, Route: PO, ONCE, Dosing Weight 112.273, kg, Priority: STAT, Start date: 05/17/15 2:14:00, Stop date: 05/17/15 2:14:00 [facility] omeprazole 40 mg oral delayed release capsule 2015-05-15 12:39:0 0 Yes 40 mg = 1 cap, PO, Daily, # 30 cap, 0 Refill(s) [facility] Dicyclomine Hydrochloride 20 MG Oral Tablet [Bentyl] 2 12:38:00 Yes 20 mg = 1 tab, PO, QID-Before Meals, # 2 8 tab, 0 Refill(s) [facility] Ondansetron 4 MG Oral Tablet [Zofran] 2015-05-15 12:38:00 Y es 4 mg = 1 tab, PO, TID, X 5 day, # 15 tab, 0 Refill(s) [facility] Acetaminophen 325 MG / Hydrocodone Nereyda trate 7.5 MG Oral Tablet [[place] 7.5/325] 2015-05-15 12:15:00 No 1 tab, Route: PO, Drug Form: TAB, Dosing Weight 122.727, kg, ONCE, STAT, Start date: 05/15/15 7:15:00, Stop date: 05/15/15 7:15:00 [facility] Ketorolac 2015-05-15 12:14:00 No 30 mg, Route: IVP, Drug form: INJ, ONCE, Dosing Weight 122.727, kg, Priority: STAT, Start date: 05/15/15 7:14:00, Stop date: 05/15/15 7:14:00 [facility] bravo Zofran 2015-05-15 11:28:00 No 4 mg, Route: IVP, Drug form: INJ, ONCE, Dosing Weight 122.727, kg, Priority: STAT, Start date: 05/15/15 6:28:00, Stop date: 05/15/15 6:28:00 [facility] Her bravo Morphine 2015-05-15 09:19:00 No 4 mg, Route: IVP, Drug form: INJ, ONCE, Dosing Weight 122.727, kg, Priority: STAT, Start date: 05/15/15 4:19:00, Stop date: 05/15/15 4:19:00 [facility] Her [facility]ravo Zofran 2015-05-15 09:19:00 No 4 mg, Route: IVP, Drug form: INJ, ONCE, Dosing Weight 122.727, kg, Priority: STAT, Start date: 05/15/15 4:19:00, Stop date: 05/15/15 4:19:00 [facility] Her bravo Sodium Chloride 0.154 MEQ/ML Injectable Solution 2015-05-15 09:1 9:00 No 1,000 mL, 1,000 ml/hr, Infus e Over: 1 Hour, Route: IV, ONCE, Priority: STAT, Dosing Weight 122.727 kg, Start date: 05/15/15 4:19:00, Duration: 1 doses or times, Stop date: 05/15/15 4:19:00 Michael Soto Metoclopramide 10 MG Oral Tablet [Reglan] 2015-02-14 08:55:00 Yes 10 mg = 1 tab, PO, QID, PRN Other -See Comment, X 7 day, # 28 tab, 0 Refill(s) Shahida Soto PlasmaLyte A PH-7.4 1,000 mL 2015-02-14 06:11:00 No 1,000 mL, Rate: 2,000 ml/hr, Infuse over: 0.5 hr, Route: IV, Dosing Weight 112.727 kg, Total Volume: 1,000, Start date: 02/14/15 1:11:00, Duration: 1 doses or times, Stop date: 02/14/15 1:40:00 Shahida Soto Benadryl 2015-02-14 06:05:00 No Notes: (Byron e as: Mike) Shahida Soto Reghudson 2015-02-14 06:05:00 No Notes: (Same as: Reglan) [facility] [place] Ondansetron 4 MG Oral Tablet [Zofran] 2014-09-30 07:04:00 Y es 4 mg = 1 tab, PO, BID, # 10 tab, 0 Refill(s) M blade Soto Morphine 2014-09-30 06:32:00 No 4 mg, Route: IV, Drug form: INJ, ONCE, Dosing Weight 118.182, kg, Start date: 09/30/14 0:32:00, Stop date: 09/30/14 0:32:00 Shahida Soto Morphine 2014-09-30 06:31:00 No 4 mg, Route: IM, Drug form: INJ, ONCE, Dosing Weight 118.182, kg, Priority: STAT, Start date: 09/30/14 0:31:00, Stop date: 09/30/14 0:31:00 [facility] bravo Saline Flush 0.9% 2014-09-30 05:25:00 No Notes: Same as: BD Posiflush Sterile [facility] [place] Sodium Chloride 0.154 MEQ/ML Injectable Solution 2014-09-30 05:2 5:00 No 1,000 mL, Infuse Over: 1 hr, Route: IV, ONCE, Priority: STAT, Dosing Weight 118.182 kg, Start date: 09/29/14 23:25:00, Duration: 1 doses or times, Stop date: 09/29/14 23:25:00 [facility] Vital Signs Vital Name Observation Time Observation Value Comments Source Temperature Oral (F) 2020-03-26 16:57:00 98.6 F [facility] Heart Rate 2020-03-26 16:57:00 [facility] Systolic (mm Hg) 2020-03-26 16:57:00 Efraín [facility] [place] Diastolic (mm Hg) 2020-03-26 16:57:00 [facility] [place] Temperature Oral (F) 2020-03-26 13:00:00 98.2 F [facility] [place] Heart Rate 2020-03-26 13:00:00 [facility] Respitory Rate 2020-03-26 13:00:00 [facility] Systolic (mm Hg) 2020-03-26 13:00:00 Efraín rial [place] Diastolic (mm Hg) 2020-03-26 13:00:00 [facility] Temperature Oral (F) 2020-03-26 09:00:00 98.1 F [facility] [place] Heart Rate 2020-03-26 09:00:00 [facility] Respitory Rate 2020-03-26 09:00:00 [facility] [place] Systolic (mm Hg) 2020-03-26 09:00:00 Efraín rial [place] Diastolic (mm Hg) 2020-03-26 09:00:00 [facility] [place] Respitory Rate 2020-03-26 05:00:00 [facility] [place] Height 2020-03-23 08:19:00 167.64 cm [facility] Weight 2020-03-23 08:19:00 [facility] BMI Calculated 2020-03-23 08:19:00 [facility] Temperature Oral (F) 2019-11-04 16:17:00 99.3 F [facility] Heart Rate 2019-11-04 16:17:00 [facility] [place] Respitory Rate 2019-11-04 16:17:00 [facility] [place] Systolic (mm Hg) 2019-11-04 16:17:00 Efraín rial [place] Diastolic (mm Hg) 2019-11-04 16:17:00 [facility] [place] Temperature Oral (F) 2019-11-04 12:53:00 98.2 F [facility] [place] Heart Rate 2019-11-04 12:53:00 [facility] [place] Respitory Rate 2019-11-04 12:53:00 [facility] [place] Systolic (mm Hg) 2019-11-04 12:53:00 Efraín rial [place] Diastolic (mm Hg) 2019-11-04 12:53:00 [facility] [place] Temperature Oral (F) 2019-11-04 08:40:00 98.2 F [facility] Heart Rate 2019-11-04 08:40:00 [facility] Systolic (mm Hg) 2019-11-04 08:40:00 Efraín [facility] [place] Diastolic (mm Hg) 2019-11-04 08:40:00 [facility] [place] Respitory Rate 2019-11-04 03:38:00 [facility] [place] Height 2019-11-02 08:32:00 167.64 cm [facility] Weight 2019-11-02 08:32:00 [facility] BMI Calculated 2019-11-02 08:32:00 [facility] Temperature Oral (F) 2019-05-25 09:20:00 98 F [facility] [place] Heart Rate 2019-05-25 09:20:00 [facility] [place] Respitory Rate 2019-05-25 09:20:00 [facility] [place] Systolic (mm Hg) 2019-05-25 09:20:00 Efraín rial [place] Diastolic (mm Hg) 2019-05-25 09:20:00 [facility] [place] Temperature Oral (F) 2019-05-25 07:10:00 98 F [facility] Heart Rate 2019-05-25 07:10:00 [facility] Respitory Rate 2019-05-25 07:10:00 [facility] [place] Systolic (mm Hg) 2019-05-25 07:10:00 Efraín rial [place] Diastolic (mm Hg) 2019-05-25 07:10:00 [facility] [place] Systolic (mm Hg) 2019-05-25 05:17:00 Efraín rial [place] Diastolic (mm Hg) 2019-05-25 05:17:00 [facility] Heart Rate 2019-05-25 05:17:00 [facility] Respitory Rate 2019-05-25 05:17:00 [facility] [place] Temperature Oral (F) 2019-05-25 05:17:00 98.2 F [facility] Height 2019-05-25 05:17:00 167.64 cm [facility] BMI Calculated 2019-05-25 05:17:00 [facility] Weight 2019-05-25 05:17:00 [facility] Systolic (mm Hg) 2019-05-16 22:30:00 [facility] Diastolic (mm Hg) 2019-05-16 22:30:00 [facility] [place] Respitory Rate 2019-05-16 22:30:00 [facility] [place] Heart Rate 2019-05-16 22:30:00 [facility] [place] [facility] Temperature Oral (F) 2019-05-16 22:30:00 98.6 F [facility] Systolic (mm Hg) 2019-05-16 19:01:00 [facility] [place] Diastolic (mm Hg) 2019-05-16 19:01:00 [facility] Heart Rate 2019-05-16 19:01:00 [facility] Respitory Rate 2019-05-16 19:01:00 [facility] [place] Temperature Oral (F) 2019-05-16 19:01:00 98.8 F [facility] Height 2019-05-16 19:01:00 167.64 cm [facility] BMI Calculated 2019-05-16 19:01:00 [facility] Weight 2019-05-16 19:01:00 [facility] Temperature Oral (F) 2019-04-04 01:04:00 98.6 F [facility] Heart Rate 2019-04-04 01:04:00 [facility] Respitory Rate 2019-04-04 01:04:00 [facility] Systolic (mm Hg) 2019-04-04 01:04:00 [facility] Diastolic (mm Hg) 2019-04-04 01:04:00 [facility] Systolic (mm Hg) 2019-04-03 20:30:00 [facility] [place] Diastolic (mm Hg) 2019-04-03 20:30:00 [facility] Heart Rate 2019-04-03 20:30:00 [facility] Respitory Rate 2019-04-03 20:30:00 [facility] Temperature Oral (F) 2019-04-03 20:30:00 98.6 F [facility] Weight 2019-04-03 20:30:00 [facility] Systolic (mm Hg) 2019-03-24 17:01:00 [facility] Diastolic (mm Hg) 2019-03-24 17:01:00 [facility] Respitory Rate 2019-03-24 17:01:00 [facility] Rate 2019-03-24 17:01:00 [facility] Temperature Oral (F) 2019-03-24 17:01:00 98.7 F [facility] Temperature Oral (F) 2019-03-24 13:35:00 98.0 F [facility] Heart Rate 2019-03-24 13:35:00 [facility] Systolic (mm Hg) 2019-03-24 13:35:00 [facility] Diastolic (mm Hg) 2019-03-24 13:35:00 [facility] Respitory Rate 2019-03-24 13:35:00 [facility] Heart Rate 2019-03-24 09:00:00 [facility] Respitory Rate 2019-03-24 09:00:00 [facility] Systolic (mm Hg) 2019-03-24 09:00:00 [facility] Diastolic (mm Hg) 2019-03-24 09:00:00 [facility] Temperature Oral (F) 2019-03-24 09:00:00 98.1 F [facility] BMI Calculated 2019-03-23 23:51:00 [facility] Height 2019-03-23 23:51:00 167.64 cm [facility] Weight 2019-03-23 23:51:00 [facility] BMI Calculated 2019-03-23 16:59:00 [facility] Weight 2019-03-23 16:59:00 [facility] Height 2019-03-23 16:59:00 167.64 cm [facility] Heart Rate 2019-03-07 20:22:00 [facility] Respitory Rate 2019-03-07 20:22:00 [facility] Systolic (mm Hg) 2019-03-07 20:22:00 [facility] Diastolic (mm Hg) 2019-03-07 20:22:00 [facility] Temperature Oral (F) 2019-03-07 20:22:00 98.5 F [facility] Systolic (mm Hg) 2019-03-07 15:57:00 [facility] Diastolic (mm Hg) 2019-03-07 15:57:00 [facility] Respitory Rate 2019-03-07 15:57:00 [facility] Temperature Oral (F) 2019-03-07 15:57:00 98.4 F [facility] Heart Rate 2019-03-07 15:57:00 [facility] Systolic (mm Hg) 2019-03-07 13:13:00 [facility] Diastolic (mm Hg) 2019-03-07 13:13:00 [facility] Heart Rate 2019-03-07 13:13:00 [facility] Respitory Rate 2019-03-07 13:13:00 [facility] Temperature Oral (F) 2019-03-07 13:13:00 98.2 F [facility] Height 2019-03-01 05:55:00 167.64 cm [facility] Weight 2019-03-01 05:55:00 [facility] BMI Calculated 2019-03-01 05:55:00 [facility] Weight 2019-03-01 01:00:00 [facility] Heart Rate 2019-01-31 19:54:00 [facility] Systolic (mm Hg) 2019-01-31 19:54:00 [facility] Diastolic (mm Hg) 2019-01-31 19:54:00 [facility] Systolic (mm Hg) 2019-01-31 19:44:00 [facility] Diastolic (mm Hg) 2019-01-31 19:44:00 [facility] Heart Rate 2019-01-31 19:44:00 [facility] Systolic (mm Hg) 2019-01-31 19:31:00 [facility] Diastolic (mm Hg) 2019-01-31 19:31:00 [facility] Rate 2019-01-31 19:31:00 [facility] Temperature Oral (F) 2019-01-31 17:05:00 98.8 F [facility] Temperature Oral (F) 2019-01-31 13:54:00 98.7 F [facility] Respitory Rate 2019-01-31 08:40:00 [facility] Temperature Oral (F) 2019-01-31 08:40:00 98.9 F [facility] Respitory Rate 2019-01-31 04:46:00 [facility] Respitory Rate 2019-01-31 00:20:00 [facility] BMI Calculated 2019-01-27 11:20:00 [facility] Height 2019-01-27 11:20:00 167.64 cm [facility] Weight 2019-01-27 11:20:00 [facility] Weight 2019-01-27 06:56:00 [facility] BMI Calculated 2019-01-27 06:56:00 [facility] Height 2019-01-27 06:56:00 167.64 cm [facility] Systolic (mm Hg) 2018-12-13 03:27:00 [facility] Diastolic (mm Hg) 2018-12-13 03:27:00 [facility] Respitory Rate 2018-12-13 03:27:00 [facility] Heart Rate 2018-12-13 03:27:00 [facility] Temperature Oral (F) 2018-12-13 03:27:00 98.8 F [facility] BMI Calculated 2018-12-13 01:17:00 [facility] Weight 2018-12-13 01:17:00 [facility] Height 2018-12-13 01:17:00 167.64 cm [facility] Respitory Rate 2018-12-13 01:17:00 [facility] Temperature Oral (F) 2018-12-13 01:17:00 99.2 F [facility] Heart Rate 2018-12-13 01:17:00 [facility] Systolic (mm Hg) 2018-12-13 01:17:00 [facility] Diastolic (mm Hg) 2018-12-13 01:17:00 [facility] Systolic (mm Hg) 2018-12-09 20:35:00 [facility] Diastolic (mm Hg) 2018-12-09 20:35:00 [facility] Respitory Rate 2018-12-09 20:35:00 [facility] Rate 2018-12-09 20:35:00 [facility] Temperature Oral (F) 2018-12-09 20:35:00 99.1 F [facility] Temperature Oral (F) 2018-12-09 16:07:00 98.5 F [facility] Systolic (mm Hg) 2018-12-09 16:07:00 [facility] Diastolic (mm Hg) 2018-12-09 16:07:00 [facility] Respitory Rate 2018-12-09 16:07:00 [facility] Heart Rate 2018-12-09 16:07:00 [facility] Systolic (mm Hg) 2018-12-09 12:39:00 [facility] Diastolic (mm Hg) 2018-12-09 12:39:00 [facility] Respitory Rate 2018-12-09 12:39:00 [facility] Heart Rate 2018-12-09 12:39:00 [facility] Temperature Oral (F) 2018-12-09 12:39:00 98.4 F [facility] Weight 2018-12-04 12:06:00 [facility] Height 2018-12-04 03:30:00 167.64 cm [facility] BMI Calculated 2018-12-04 03:30:00 [facility] Weight 2018-12-04 03:30:00 [facility] BMI Calculated 2018-12-03 20:49:00 [facility] Weight 2018-12-03 20:49:00 [facility] Height 2018-12-03 20:49:00 167.64 cm [facility] Systolic (mm Hg) 2018-10-12 17:28:00 [facility] Diastolic (mm Hg) 2018-10-12 17:28:00 [facility] Heart Rate 2018-10-12 17:28:00 [facility] Respitory Rate 2018-10-12 17:28:00 [facility] Temperature Oral (F) 2018-10-12 17:28:00 98.3 F [facility] Heart Rate 2018-10-12 13:39:00 [facility] Temperature Oral (F) 2018-10-12 13:39:00 97.9 F [facility] Systolic (mm Hg) 2018-10-12 13:39:00 [facility] Diastolic (mm Hg) 2018-10-12 13:39:00 [facility] Respitory Rate 2018-10-12 13:39:00 [facility] Systolic (mm Hg) 2018-10-12 09:47:00 [facility] Diastolic (mm Hg) 2018-10-12 09:47:00 [facility] Respitory Rate 2018-10-12 09:47:00 [facility] Heart Rate 2018-10-12 09:47:00 [facility] Temperature Oral (F) 2018-10-12 09:47:00 98.0 F [facility] Weight 2018-10-11 11:23:00 [facility] Height 2018-10-11 11:23:00 167.64 cm [facility] BMI Calculated 2018-10-11 11:23:00 [facility] Systolic (mm Hg) 2018-10-11 09:27:00 [facility] Diastolic (mm Hg) 2018-10-11 09:27:00 [facility] Temperature Oral (F) 2018-10-11 09:27:00 98.2 F [facility] Respitory Rate 2018-10-11 09:27:00 [facility] Heart Rate 2018-10-11 09:27:00 [facility] Respitory Rate 2018-10-11 05:07:00 [facility] Heart Rate 2018-10-11 05:07:00 [facility] Temperature Oral (F) 2018-10-11 05:07:00 98 F [facility] Systolic (mm Hg) 2018-10-11 05:07:00 [facility] Diastolic (mm Hg) 2018-10-11 05:07:00 [facility] Weight 2018-10-11 01:12:00 [facility] Temperature Oral (F) 2018-10-11 01:12:00 98.6 F [facility] Heart Rate 2018-10-11 01:12:00 [facility] Respitory Rate 2018-10-11 01:12:00 [facility] Systolic (mm Hg) 2018-10-11 01:12:00 [facility] Diastolic (mm Hg) 2018-10-11 01:12:00 [facility] Temperature Oral (F) 2018-09-06 10:17:00 97.6 F [facility] Respitory Rate 2018-09-06 10:17:00 [facility] Heart Rate 2018-09-06 10:17:00 [facility] Systolic (mm Hg) 2018-09-06 10:17:00 [facility] Diastolic (mm Hg) 2018-09-06 10:17:00 [facility] Respitory Rate 2018-09-06 06:28:00 [facility] Temperature Oral (F) 2018-09-06 06:28:00 98.2 F [facility] Heart Rate 2018-09-06 06:28:00 [facility] Systolic (mm Hg) 2018-09-06 06:28:00 [facility] Diastolic (mm Hg) 2018-09-06 06:28:00 [facility] Temperature Oral (F) 2018-09-06 06:16:00 98 F [facility] Height 2018-09-06 06:16:00 167.64 cm [facility] Heart Rate 2018-09-06 06:16:00 [facility] Respitory Rate 2018-09-06 06:16:00 [facility] Systolic (mm Hg) 2018-09-06 06:16:00 [facility] Diastolic (mm Hg) 2018-09-06 06:16:00 [facility] BMI Calculated 2018-09-06 06:16:00 [facility] Weight 2018-09-06 06:16:00 [facility] Systolic (mm Hg) 2018-08-30 17:44:00 [facility] Diastolic (mm Hg) 2018-08-30 17:44:00 [facility] Temperature Oral (F) 2018-08-30 17:44:00 98.0 F [facility] Respitory Rate 2018-08-30 17:44:00 [facility] Heart Rate 2018-08-30 17:44:00 [facility] Heart Rate 2018-08-30 14:10:00 [facility] Respitory Rate 2018-08-30 14:10:00 [facility] Systolic (mm Hg) 2018-08-30 14:10:00 [facility] Diastolic (mm Hg) 2018-08-30 14:10:00 [facility] Temperature Oral (F) 2018-08-30 14:10:00 98.2 F [facility] Respitory Rate 2018-08-30 10:04:00 [facility] Systolic (mm Hg) 2018-08-30 10:04:00 [facility] Diastolic (mm Hg) 2018-08-30 10:04:00 [facility] Heart Rate 2018-08-30 10:04:00 [facility] Temperature Oral (F) 2018-08-30 10:04:00 98.1 F [facility] Height 2018-08-24 22:13:00 167.64 cm [facility] Weight 2018-08-24 22:13:00 [facility] BMI Calculated 2018-08-24 22:13:00 [facility] BMI Calculated 2018-08-24 20:22:00 [facility] Weight 2018-08-24 20:22:00 [facility] Height 2018-08-24 20:22:00 165.1 cm [facility] Weight 2018-08-24 07:42:00 [facility] Temperature Oral (F) 2018-05-22 17:03:00 98.4 F [facility] Respitory Rate 2018-05-22 17:03:00 [facility] Heart Rate 2018-05-22 17:03:00 [facility] Systolic (mm Hg) 2018-05-22 17:03:00 [facility] Diastolic (mm Hg) 2018-05-22 17:03:00 [facility] Respitory Rate 2018-05-22 13:14:00 [facility] Heart Rate 2018-05-22 13:14:00 [facility] Temperature Oral (F) 2018-05-22 13:14:00 98.3 F [facility] Systolic (mm Hg) 2018-05-22 13:14:00 [facility] Diastolic (mm Hg) 2018-05-22 13:14:00 [facility] Systolic (mm Hg) 2018-05-22 11:16:00 [facility] Diastolic (mm Hg) 2018-05-22 11:16:00 [facility] Temperature Oral (F) 2018-05-22 11:16:00 98.2 F [facility] Heart Rate 2018-05-22 11:16:00 [facility] Respitory Rate 2018-05-22 11:16:00 [facility] Weight 2018-05-17 08:15:00 [facility] BMI Calculated 2018-05-17 08:15:00 [facility] Height 2018-05-17 08:15:00 167.64 cm [facility] Weight 2018-05-17 03:51:00 [facility] Temperature Oral (F) 2018-01-13 02:51:00 97.5 F [facility] Respitory Rate 2018-01-13 02:51:00 [facility] Systolic (mm Hg) 2018-01-13 02:51:00 [facility] Diastolic (mm Hg) 2018-01-13 02:51:00 [facility] Heart Rate 2018-01-13 02:51:00 [facility] Height 2018-01-12 21:15:00 167.64 cm [facility] BMI Calculated 2018-01-12 21:15:00 [facility] Weight 2018-01-12 21:15:00 [facility] Heart Rate 2018-01-12 21:15:00 [facility] Systolic (mm Hg) 2018-01-12 21:15:00 [facility] Diastolic (mm Hg) 2018-01-12 21:15:00 [facility] Temperature Oral (F) 2018-01-12 21:15:00 98.8 F [facility] Respitory Rate 2018-01-12 21:15:00 [facility] Heart Rate 2016-12-31 16:21:00 [facility] Systolic (mm Hg) 2016-12-31 16:21:00 [facility] Diastolic (mm Hg) 2016-12-31 16:21:00 [facility] Respitory Rate 2016-12-31 15:59:00 [facility] Heart Rate 2016-12-31 15:59:00 [facility] Temperature Oral (F) 2016-12-31 15:59:00 98.4 F [facility] Systolic (mm Hg) 2016-12-31 15:59:00 [facility] Diastolic (mm Hg) 2016-12-31 15:59:00 [facility] Systolic (mm Hg) 2016-12-31 11:56:00 [facility] Diastolic (mm Hg) 2016-12-31 11:56:00 [facility] Respitory Rate 2016-12-31 11:56:00 [facility] Temperature Oral (F) 2016-12-31 11:56:00 98.5 F [facility] Heart Rate 2016-12-31 11:56:00 [facility] Weight 2016-12-31 11:38:00 [facility] Respitory Rate 2016-12-31 11:03:00 [facility] Temperature Oral (F) 2016-12-31 11:03:00 98 F [facility] BMI Calculated 2016-12-31 04:03:00 [facility] Height 2016-12-31 04:03:00 167.64 cm [facility] Weight 2016-12-31 04:03:00 [facility] Systolic (mm Hg) 2016-12-26 00:49:00 [facility] Diastolic (mm Hg) 2016-12-26 00:49:00 [facility] Respitory Rate 2016-12-26 00:49:00 [facility] Heart Rate 2016-12-26 00:49:00 [facility] Temperature Oral (F) 2016-12-26 00:49:00 98 F [facility] Systolic (mm Hg) 2016-12-26 00:01:00 [facility] Diastolic (mm Hg) 2016-12-26 00:01:00 [facility] Respitory Rate 2016-12-26 00:01:00 [facility] Heart Rate 2016-12-26 00:01:00 [facility] Temperature Oral (F) 2016-12-26 00:01:00 98 F [facility] Weight 2016-12-25 23:55:00 [facility] BMI Calculated 2016-12-25 23:55:00 [facility] Height 2016-12-25 23:55:00 167.64 cm [facility] Systolic (mm Hg) 2016-12-25 22:45:00 [facility] Diastolic (mm Hg) 2016-12-25 22:45:00 [facility] Respitory Rate 2016-12-25 22:45:00 [facility] Height 2016-12-25 19:18:00 167.64 cm [facility] BMI Calculated 2016-12-25 19:18:00 [facility] Weight 2016-12-25 19:18:00 [facility] Temperature Oral (F) 2016-12-25 19:18:00 98.2 F [facility] Heart Rate 2016-12-25 19:18:00 [facility] Systolic (mm Hg) 2016-07-20 04:46:00 [facility] Diastolic (mm Hg) 2016-07-20 04:46:00 [facility] Heart Rate 2016-07-20 04:46:00 [facility] Respitory Rate 2016-07-20 04:46:00 [facility] Temperature Oral (F) 2016-07-20 04:46:00 98.3 F [facility] Weight 2016-07-20 01:24:00 [facility] BMI Calculated 2016-07-20 01:24:00 [facility] Height 2016-07-20 01:24:00 167.64 cm [facility] Temperature Oral (F) 2016-07-20 01:24:00 98.4 F [facility] Systolic (mm Hg) 2016-07-20 01:24:00 [facility] Diastolic (mm Hg) 2016-07-20 01:24:00 [facility] Heart Rate 2016-07-20 01:24:00 [facility] Respitory Rate 2016-07-20 01:24:00 [facility] Systolic (mm Hg) 2016-04-23 08:04:00 [facility] Diastolic (mm Hg) 2016-04-23 08:04:00 [facility] Respitory Rate 2016-04-23 08:04:00 [facility] Heart Rate 2016-04-23 08:04:00 [facility] Temperature Oral (F) 2016-04-23 08:04:00 97.6 F [facility] Height 2016-04-23 05:01:00 157.48 cm [facility] Systolic (mm Hg) 2016-04-23 05:01:00 [facility] Diastolic (mm Hg) 2016-04-23 05:01:00 [facility] Heart Rate 2016-04-23 05:01:00 [facility] Respitory Rate 2016-04-23 05:01:00 [facility] Temperature Oral (F) 2016-04-23 05:01:00 98.2 F [facility] Weight 2016-04-23 05:01:00 [facility] BMI Calculated 2016-04-23 05:01:00 [facility] Systolic (mm Hg) 2016-04-16 08:51:00 [facility] Diastolic (mm Hg) 2016-04-16 08:51:00 [facility] Respitory Rate 2016-04-16 08:51:00 [facility] Heart Rate 2016-04-16 08:51:00 [facility] Temperature Oral (F) 2016-04-16 08:51:00 98.2 F [facility] Respitory Rate 2016-04-16 04:25:00 [facility] Heart Rate 2016-04-16 04:25:00 [facility] Systolic (mm Hg) 2016-04-16 04:25:00 [facility] Diastolic (mm Hg) 2016-04-16 04:25:00 [facility] Height 2016-04-16 04:25:00 167.64 cm [facility] Temperature Oral (F) 2016-04-16 04:25:00 98.7 F [facility] BMI Calculated 2016-04-16 04:25:00 [facility] Weight 2016-04-16 04:25:00 [facility] Systolic (mm Hg) 2016-04-14 08:30:00 [facility] Diastolic (mm Hg) 2016-04-14 08:30:00 [facility] Heart Rate 2016-04-14 08:30:00 [facility] Temperature Oral (F) 2016-04-14 08:30:00 98 F [facility] Systolic (mm Hg) 2016-04-14 07:30:00 [facility] Diastolic (mm Hg) 2016-04-14 07:30:00 [facility] Respitory Rate 2016-04-14 07:30:00 [facility] Heart Rate 2016-04-14 07:30:00 [facility] Temperature Oral (F) 2016-04-14 07:30:00 98 F [facility] Systolic (mm Hg) 2016-04-14 06:30:00 [facility] Diastolic (mm Hg) 2016-04-14 06:30:00 [facility] Respitory Rate 2016-04-14 06:30:00 [facility] Heart Rate 2016-04-14 06:30:00 [facility] Temperature Oral (F) 2016-04-14 06:30:00 98.2 F [facility] BMI Calculated 2016-04-14 05:39:00 [facility] Weight 2016-04-14 05:39:00 [facility] Height 2016-04-14 05:39:00 167.64 cm [facility] Respitory Rate 2016-04-14 05:39:00 [facility] Systolic (mm Hg) 2016-02-24 07:38:00 [facility] Diastolic (mm Hg) 2016-02-24 07:38:00 [facility] Heart Rate 2016-02-24 07:38:00 [facility] Respitory Rate 2016-02-24 07:38:00 [facility] Heart Rate 2016-02-24 03:24:00 [facility] Respitory Rate 2016-02-24 03:24:00 [facility] BMI Calculated 2016-02-24 03:24:00 [facility] Height 2016-02-24 03:24:00 167.64 cm [facility] Weight 2016-02-24 03:24:00 [facility] Temperature Oral (F) 2016-02-24 03:24:00 98.1 F [facility] Systolic (mm Hg) 2016-02-24 03:24:00 [facility] Diastolic (mm Hg) 2016-02-24 03:24:00 [facility] Temperature Oral (F) 2016-01-17 05:32:00 98.1 F [facility] Heart Rate 2016-01-17 05:32:00 [facility] Respitory Rate 2016-01-17 05:32:00 [facility] Systolic (mm Hg) 2016-01-17 05:32:00 [facility] Diastolic (mm Hg) 2016-01-17 05:32:00 [facility] Heart Rate 2016-01-17 04:06:00 [facility] Systolic (mm Hg) 2016-01-17 04:06:00 [facility] Diastolic (mm Hg) 2016-01-17 04:06:00 [facility] Temperature Oral (F) 2016-01-17 04:06:00 98.0 F [facility] Respitory Rate 2016-01-17 04:06:00 [facility] Heart Rate 2016-01-17 01:48:00 [facility] Respitory Rate 2016-01-17 01:48:00 [facility] Systolic (mm Hg) 2016-01-17 01:48:00 [facility] Diastolic (mm Hg) 2016-01-17 01:48:00 [facility] Weight 2016-01-17 01:48:00 [facility] Height 2016-01-17 01:48:00 167.64 cm [facility] BMI Calculated 2016-01-17 01:48:00 [facility] Temperature Oral (F) 2016-01-17 01:48:00 98 F [facility] Respitory Rate 2015-10-13 11:44:00 [facility] Heart Rate 2015-10-13 11:44:00 [facility] Temperature Oral (F) 2015-10-13 11:44:00 98.2 F [facility] Systolic (mm Hg) 2015-10-13 11:44:00 [facility] Diastolic (mm Hg) 2015-10-13 11:44:00 [facility] Height 2015-10-13 05:34:00 167.64 cm [facility] BMI Calculated 2015-10-13 05:34:00 [facility] Weight 2015-10-13 05:34:00 [facility] Heart Rate 2015-10-13 05:34:00 [facility] Respitory Rate 2015-10-13 05:34:00 [facility] Temperature Oral (F) 2015-10-13 05:34:00 98.2 F [facility] Systolic (mm Hg) 2015-10-13 05:34:00 [facility] Diastolic (mm Hg) 2015-10-13 05:34:00 [facility] Respitory Rate 2015-07-04 08:49:00 [facility] Heart Rate 2015-07-04 08:49:00 [facility] Temperature Oral (F) 2015-07-04 08:49:00 98.0 F [facility] Systolic (mm Hg) 2015-07-04 08:49:00 [facility] Diastolic (mm Hg) 2015-07-04 08:49:00 [facility] Respitory Rate 2015-07-04 07:00:00 [facility] Heart Rate 2015-07-04 07:00:00 [facility] Temperature Oral (F) 2015-07-04 07:00:00 98.4 F [facility] Systolic (mm Hg) 2015-07-04 07:00:00 [facility] Diastolic (mm Hg) 2015-07-04 07:00:00 [facility] Heart Rate 2015-07-04 05:28:00 [facility] Respitory Rate 2015-07-04 05:28:00 [facility] Temperature Oral (F) 2015-07-04 05:28:00 98.2 F [facility] Systolic (mm Hg) 2015-07-04 05:28:00 [facility] Diastolic (mm Hg) 2015-07-04 05:28:00 [facility] Weight 2015-07-04 05:28:00 [facility] Systolic (mm Hg) 2015-05-17 11:05:00 [facility] Diastolic (mm Hg) 2015-05-17 11:05:00 [facility] Temperature Oral (F) 2015-05-17 11:05:00 98.2 F [facility] Heart Rate 2015-05-17 11:05:00 [facility] Heart Rate 2015-05-17 10:05:00 [facility] Systolic (mm Hg) 2015-05-17 10:05:00 [facility] Diastolic (mm Hg) 2015-05-17 10:05:00 [facility] Systolic (mm Hg) 2015-05-17 09:05:00 [facility] Diastolic (mm Hg) 2015-05-17 09:05:00 [facility] Heart Rate 2015-05-17 09:05:00 [facility] Respitory Rate 2015-05-17 08:05:00 [facility] Temperature Oral (F) 2015-05-17 08:05:00 99.6 F [facility] Temperature Oral (F) 2015-05-17 06:17:00 99.6 F [facility] Height 2015-05-17 04:59:00 167.64 cm [facility] BMI Calculated 2015-05-17 04:59:00 [facility] Weight 2015-05-17 04:59:00 [facility] Respitory Rate 2015-05-17 04:59:00 [facility] Temperature Oral (F) 2015-05-15 13:01:00 98.9 F [facility] Heart Rate 2015-05-15 13:01:00 [facility] Respitory Rate 2015-05-15 13:01:00 [facility] Systolic (mm Hg) 2015-05-15 13:01:00 [facility] Diastolic (mm Hg) 2015-05-15 13:01:00 [facility] Heart Rate 2015-05-15 07:46:00 [facility] Respitory Rate 2015-05-15 07:46:00 [facility] Systolic (mm Hg) 2015-05-15 07:46:00 [facility] Diastolic (mm Hg) 2015-05-15 07:46:00 [facility] Temperature Oral (F) 2015-05-15 07:46:00 98.1 F [facility] Height 2015-05-15 03:56:00 167.64 cm [facility] BMI Calculated 2015-05-15 03:56:00 [facility] Weight 2015-05-15 03:56:00 [facility] Temperature Oral (F) 2015-05-15 03:56:00 98.3 F [facility] Systolic (mm Hg) 2015-05-15 03:56:00 [facility] Diastolic (mm Hg) 2015-05-15 03:56:00 [facility] Respitory Rate 2015-05-15 03:56:00 [facility] Heart Rate 2015-05-15 03:56:00 [facility] Respitory Rate 2015-02-14 09:30:00 [facility] Systolic (mm Hg) 2015-02-14 09:30:00 [facility] Diastolic (mm Hg) 2015-02-14 09:30:00 [facility] Heart Rate 2015-02-14 09:30:00 [facility] Heart Rate 2015-02-14 04:52:00 [facility] Temperature Oral (F) 2015-02-14 04:52:00 98.3 F [facility] Respitory Rate 2015-02-14 04:52:00 [facility] Systolic (mm Hg) 2015-02-14 04:52:00 [facility] Diastolic (mm Hg) 2015-02-14 04:52:00 [facility] BMI Calculated 2015-02-14 01:00:00 [facility] Weight 2015-02-14 01:00:00 [facility] Temperature Oral (F) 2015-02-14 01:00:00 98.6 F [facility] Height 2015-02-14 01:00:00 167.64 cm [facility] Heart Rate 2015-02-14 01:00:00 [facility] Respitory Rate 2015-02-14 01:00:00 [facility] Systolic (mm Hg) 2015-02-14 01:00:00 [facility] Diastolic (mm Hg) 2015-02-14 01:00:00 [facility] Diastolic (mm Hg) 2014-09-30 07:00:00 [facility] Systolic (mm Hg) 2014-09-30 07:00:00 [facility] Temperature Oral (F) 2014-09-30 07:00:00 98.3 F [facility] Respitory Rate 2014-09-30 07:00:00 [facility] Heart Rate 2014-09-30 07:00:00 [facility] Temperature Oral (F) 2014-09-30 04:47:00 98.2 F [facility] Diastolic (mm Hg) 2014-09-30 04:47:00 [facility] Heart Rate 2014-09-30 04:47:00 [facility] Systolic (mm Hg) 2014-09-30 04:47:00 [facility] Respitory Rate 2014-09-30 04:47:00 [facility] Respitory Rate 2014-09-30 03:54:00 [facility] Heart Rate 2014-09-30 03:54:00 [facility] Diastolic (mm Hg) 2014-09-30 03:54:00 [facility] Temperature Oral (F) 2014-09-30 03:54:00 98.4 F [facility] Height 2014-09-30 03:54:00 167.64 cm [facility] Systolic (mm Hg) 2014-09-30 03:54:00 [facility] BMI Calculated 2014-09-30 03:54:00 [facility] Weight 2014-09-30 03:54:00 [facility] Procedures Procedure Date / Time Performed Performing Clinician Valery e DRAINAGE OF SKIN ABSCESS 2019-06-05 00:00:00 BRODY BELCHER [facility] Incision AND drainage 2018-05-17 05:00:00 [facility] Encounters Start Date/Time End Date/Time Encounter Type Admission Type [facility] Care Department Encounter ID Source 2020-03-23 06:02:00 Inpatient U MHBL MED 02 20 [facility]BL 2020-04-04 00:00:00 2020-04-04 00:00:00 Telephone Grey Schultz [facility] [id number] 2020-03-23 06:02:00 2020-03-26 15:12:00 Outpatient Zoya Carbajal chi MHPL MHPL [id number] 2020-02-23 07:36:59 2020-02-23 08:06:59 Office Visit Aaliyah Stewart [facility] Medical Office Building [id number] 2020-02-06 00:00:00 2020-02-06 00:00:00 Patient Secure Msg Thania Schultznt C [facility] [id number] 2019-11-02 03:06:00 2019-11-04 13:40:00 Outpatient Hardik Coats MHSE MHSE [id number] 2019-11-02 02:06:00 2019-11-02 23:59:[address] charisma Frias MHSE MHSE [id number] 2019-11-02 03:06:00 2019-11-02 03:06:00 Outpatient MHSE MED [id number] [facility] 2019-11-02 02:06:00 2019-11-02 02:06:00 Outpatient MHSE MHSE [id number] [facility] 2019-07-29 18:32:00 2019-07-29 20:13:00 Departed Emergency Room 1 GLYNN BHATT [facility] [id number] [facility] 2019-06-05 14:58:00 2019-06-05 16:13:00 Departed Emergency Room [facility] [id number] [facility] 2019-05-24 23:55:11 2019-05-25 04:36:00 Outpatient Byron Hogan MHSE MHSE [id number] 2019-05-24 23:55:00 2019-05-24 23:55:00 Emergency E MHSE MHSE [id number] [facility] 2019-05-16 13:43:54 2019-05-16 17:46:00 Outpatient Eliot Wakefield MHPL MHPL [id number] 2019-05-16 13:43:00 2019-05-16 13:43:00 Emergency E MHBL MHBL [id number] [facility] 2019-04-03 15:26:24 2019-04-03 20:07:00 Outpatient Eliot Wakefield MHPL MHPL [id number] 2019-04-03 15:26:00 2019-04-03 15:26:00 Emergency E MHBL MHBL [id number] [facility] 2019-03-23 11:40:00 2019-03-24 20:01:00 Outpatient Jose L Cunningham MHPL MHPL [id number] 2019-03-23 14:49:00 2019-03-23 14:49:00 Outpatient E MHBL MED [id number] [facility] 2019-02-28 19:39:04 2019-03-07 20:00:00 Outpatient Carla Campos on MHPL MHPL [id number] 2019-03-02 11:50:00 2019-02-28 23:03:00 Inpatient E MHBL MED [id number] [facility] 2019-01-27 01:47:07 2019-01-31 16:50:00 Outpatient Jennifer White shaq MHSE MHSE [id number] 2019-01-27 17:00:00 2019-01-27 04:15:00 Inpatient E MHSE MED [id number] [facility] 2018-12-12 20:11:18 2018-12-12 22:30:00 Outpatient Herb Martin MHPL MHPL [id number] 2018-12-12 20:11:00 2018-12-12 20:11:00 Emergency E MHBL MHBL [id number] [facility] 2018-12-03 15:44:00 2018-12-09 18:39:00 Outpatient A Terrence ely MHPL MHPL [id number] 2018-12-03 15:44:00 2018-12-09 18:39:00 Outpatient A Terrence ely MHPL MHPL [id number] 2018-12-05 11:17:00 2018-12-03 20:46:00 Inpatient E MHBL MED [id number] [facility] 2018-10-11 05:02:00 2018-10-12 15:33:00 Outpatient Lexx Sauer MHSE MHSE [id number] 2018-10-10 18:53:00 2018-10-11 04:00:00 Outpatient F Temitope villalobos MHPL MHPL [id number] 2018-09-06 00:08:00 2018-09-06 04:19:00 Outpatient F Ruth apple MHSE MHSE [id number] 2018-09-06 00:08:00 2018-09-06 04:19:00 Outpatient Ruth Boykin MHSE MHSE [id number] 2018-08-24 01:36:00 2018-08-30 14:40:00 Outpatient Oralia Hull i MHPL MHPL [id number] 2018-06-24 13:37:00 2018-06-24 23:59:00 Outpatient Tracie Stahl MHOIP MHOIP [id number] 2018-05-16 22:31:00 2018-05-22 13:15:00 Outpatient Oralia Hull i MHPL MHPL [id number] 2018-04-30 13:40:00 2018-04-30 16:17:00 Departed Emergency Room [facility] [id number] [facility] 2018-02-07 14:46:00 2018-02-07 19:52:00 Departed Emergency Room 1 SANDY DUARTE [facility] [id number] [facility] 2018-02-04 22:15:00 2018-02-05 02:06:00 Departed Emergency Room [facility] [id number] [facility] 2018-01-12 16:14:00 2018-01-12 22:22:00 Outpatient Betty Navarro MHSE MHSE [id number] 2016-12-30 22:54:00 2016-12-31 13:53:00 Outpatient Alec Vicente MHSE MHSE [id number] 2016-12-25 14:16:00 2016-12-25 20:08:00 Outpatient Daniele Weaver MHSE MHSE [id number] 2016-07-19 19:18:00 2016-07-19 22:50:00 Outpatient Jama Khalil MHSE MHSE [id number] 2016-04-22 23:58:00 2016-04-23 03:06:00 Outpatient Rosalind Andrade MHSE MHSE [id number] 2016-04-15 23:24:00 2016-04-16 03:54:00 Outpatient Jeannie Blair MHSE MHSE [id number] 2016-04-14 00:33:00 2016-04-14 03:59:00 Outpatient Cristino Porter MHSE MHSE [id number] 2016-02-23 22:20:00 2016-02-24 02:54:00 Outpatient P Wilmar lewis MHSE MHSE [id number] 2016-01-16 20:36:00 2016-01-17 00:34:00 Outpatient Salvador Rodríguez MHPL MHPL [id number] 2015-10-12 23:21:00 2015-10-13 05:47:00 Outpatient Rosy Diaz MHSE MHSE [id number] 2015-07-03 23:24:00 2015-07-04 03:54:00 Outpatient Michelle Finley MHSE MHSE [id number] 2015-05-16 23:53:00 2015-05-17 07:05:00 Outpatient Rosy Diaz SE SE [id number] 2015-05-14 22:48:00 2015-05-15 08:01:00 Outpatient Temitope Cadeciara MHSE MHSE [id number] 2015-02-13 19:35:00 2015-02-14 05:39:00 Outpatient Juancho Prince IE IE [id number] 2014-09-29 21:23:00 2014-09-30 02:31:00 Outpatient Mario Gu IE IE [id number] Results Test Description Test Time Test Comments Results Result Comments Source TOXICOLOGY 2020-03-26 02:10:00 11.7 [facility] 2020-03-26 02:10:00 Test Item Vanco Tr TND (test code = Vanco Tr TND) 2200 1 [facility] HermannCHEM [id number] 17:36:18985Xmflkjlp HermannCHEM PANEL 2020-03-25 17:36:0010[facility] OTDPY4663-50-90 17:36:000.64[facility]annCHEM HIALI8133-85-79 17:36:82388Nusudyqn HermannCHEM GTMWK4481-06-34 17:36:004.1[facility]annCHE[facility] KXWFY9179-35-39 17:36:26948Otgaeodi HermannCHEM CKAFB0301-90-82 17:36:0030[facility]annCHE[facility] ZUTVA0937-87-29 17:36:008.4 [facility]CHE[facility] WPSAD3864-97-76 17:36:007.1[facility] HermannCHEM PANEL 2020-03-25 17:36:94946Cskdwlzk RsiwdqqVBJJWLTHWJ1111-45-77 14:50:0021.4[facility] ArjoxvbTLEARJDXMZ4683-30-13 14:50:00* Test Item Value Reference Range Interpretation Comments Vanco Tr TND (test code = Vanco Tr TND) 1000 1 [facility] BgayoepQBGGEJQVHP2060-70-26 14:36:0013.7[facility] HermannTOXICOLOGY 2020-03-24 14:36:00* Test Item Value Reference Range Interpretation Comments Vanco Tr TND (test code = Vanco Tr TND) 1100 1 [facility] HermannTRIMETHOPRIM+SULFAMETHOXAZOLE:SUSC:PT:ISOLATE:ORDQN:MONISHA 2020-03-23 12:34:00Staphylococcus aureusMemorial HermannCHEM OIJEC3253-79-21 12:20:0092[facility] HermannCHEM JMHQK4548-36-85 12:20:0011[facility] HermannCHEM RYWIV7632-51-60 12:20:000.64[facility] HermannCHEM VGNGN2673-56-04 12:20:64628 [facility] HermannCHEM YFITP5723-98-45 12:20:003.7[facility] HermannCHEM PANEL 2020-03-23 12:20:80194Xlwzzqug HermannCHEM LFPRH5736-56-89 12:20:0028[facility] HermannCHEM CVBWA6189-24-96 12:20:008.2[facility] HermannCHEM JYOIR4793-84-16 12:20:002.8[facility] HermannCHEM YZSOT6661-95-52 12:20:0016[facility] HermannCHEM YYXNF8091-86-66 12:20:0011[facility] HermannCHEM OSQXR6870-15-26 12:20:007.7 [facility] HermannCHEM UTFGG9417-48-56 12:20:00* Test Item Value Reference Range Interpretation Comments B/C Ratio (test code = B/C Ratio) 17 1 6-25 [facility] HermannCHEM OZSPX6339-43-54 12:20:33393Jdsvgpic HermannCHEM PANEL 2020-03-23 12:20:006.7[facility] HermannCHEM EHSVI9041-79-39 12:20:0075[facility] HermannCHEM CQUBA6078-61-08 12:20:000.5[facility] HermannCHEM CWTIF4588-69-57 12:20:003.9[facility] HermannCHEM CIBZX3478-01-48 12:20:00* Test Item Value Reference Range Interpretation Comments A/G Ratio (test code = A/G Ratio) 0.7 1 0.7-1.6 [facility] WxrmaefVKTYWKSOLG7990-95-84 12:20:0010.2[facility] HermannHEMATOLOGY 2020-03-23 12:20:004.12[facility] EjcymspELHHKBREZU3590-69-38 12:20:0012.2[facility] DtrggykLMRCIXWYOY1098-42-85 12:20:0036.5[facility] HxyyzeqIRWFSLTSYC9290-88-93 12:20:0088.6[facility] MkriuynUIAPJFYTCD1325-32-59 12:20:00* Test Item Value Reference Range Interpretation Comments MCH (test code = MCH) 29.5 pg 27.0-31.0 [facility] PedtplsJPCYUCMWDV1675-93-02 12:20:0033.3[facility] HermannHEMATOLOGY 2020-03-23 12:20:0013.9[facility] SdbbsgzWVBLGMQKAX0893-26-43 12:20:77521Gdwkiqru NnirktpLVHQJFUVIB3346-36-66 12:20:008.3[facility] YlazttzHPBWLORSAQ8378-95-61 12:20:0063.8[facility] ZrtyvejRSBYXORFGC7369-24-17 12:20:0021.4[facility] BBVNLKLVQW7346-94-08 12:20:009.2[facility] NntiluhILWZWZFIOH3241-01-98 12:20:004.6 [facility] CfbsnqyTWNFBHVIPW9143-95-41 12:20:001.0[facility] HermannHEMATOLOGY 2020-03-23 12:20:006.5[facility] EdzxnbwHMKNVENPFQ7075-86-26 12:20:002.2[facility] QnajzemOZOCDIGYSK3805-84-09 12:20:000.9[facility] SenyeemOLSXEJTLCN1798-39-56 12:20:000.5[facility] EdordfaDKUESZGNLE1499-79-87 12:20:000.1[facility] URINALYSIS SRTHNMZZ9780-90-63 09:07:00* Test Item Value Reference Range Interpretation Comments UA COLOR (test code = COLU) YELLOW YELLOW UA APPEARANCE (test code = APPU) HAZY CLEAR A UA GLUCOSE DIPSTICK (test code = DGLUU) norm mg/dL NEGATIVE UA BILIRUBIN DIPSTICK (test code = BILU) NEGATIVE mg/dL NEGATIVE UA KETONE DIPSTICK (test code = KETU) neg mg/dL NEGATIVE UA SPECIFIC GRAVITY (test code = SGU) 1.015 1.001-1.035 UA BLOOD DIPSTICK (test code = CORY) 25 (1+) Vish/uL NEGATIVE A UA PH DIPSTICK (test code = BRANDON) 6.5 5.0-8.0 UA PROTEIN DIPSTICK (test code = PROU) 30 (1+) mg/dL Neg-15 A UA UROBILINIOGEN DIPSTICK (test code = URO) norm mg/dL 0.0-0.2 UA NITRITE DIPSTICK (test code = VINCE) NEGATIVE NEGATIVE UA LEUKOCYTE ESTERASE DIPSTICK (test code = LEUU) 100 Lashawn/uL (1+) u L NEGATIVE A UA WBC (test code = WBCU) 3-5 per HPF 0-5 UA RBC (test code = RBCU) 0-3 per HPF 0-5 UA EPITHELIAL CELLS (test code = EPIU) Moderate (5-10/hpf) per HPF Few UA BACTERIA (test code = BACU) MANY per HPF NONE Urine Source? Clean CatchUR HCG [id number] 09:07:00* Test Item Value Reference Range Interpretation Comments UR HCG QUAL (test code = HCGQLU) NEGATIVE This HCGQL test is NOT applicable for MALE patients.Check with nurse about probable order error.If Tumor Marker Test needed, nurse should order test "HCGTU"(Test #550.74694) Urine Source? Clean CatchDRUGS OF ABUSE SCREEN [id number] 09:07:00* Test Item Value Reference Range Interpretation Comments URN COCAINE (test code = COCAURN) NEGATIVE NEGATIVE URN CANNABINOIDS (test code = CANNABURN) NEGATIVE NEGATIVE URN AMPHETAMINE (test code = AMPHETURN) POSITIVE NEGATIVE A URN BARBITURATE (test code = BARBITURN) NEGATIVE NEGATIVE URN BENZODIAZEPINE (test code = BENZOURN) NEGATIVE NEGATIVE URN OPIATES (test code = OPIATURN) NEGATIVE NEGATIVE URN PHENCYCLIDINE (PCP) (test code = PHENCURN) NEGATIVE NEGATIV E Urine Source? Clean CatchURINALYSIS [id number] 09:00:00* Test Item Value Reference Range Interpretation Comments UA COLOR (test code = COLU) YELLOW YELLOW UA APPEARANCE (test code = APPU) HAZY CLEAR A UA GLUCOSE DIPSTICK (test code = DGLUU) norm mg/dL NEGATIVE UA BILIRUBIN DIPSTICK (test code = BILU) NEGATIVE mg/dL NEGATIVE UA KETONE DIPSTICK (test code = KETU) neg mg/dL NEGATIVE UA SPECIFIC GRAVITY (test code = SGU) 1.015 1.001-1.035 UA BLOOD DIPSTICK (test code = CORY) 25 (1+) Vish/uL NEGATIVE A UA PH DIPSTICK (test code = BRANDON) 6.5 5.0-8.0 UA PROTEIN DIPSTICK (test code = PROU) 30 (1+) mg/dL Neg-15 A UA UROBILINIOGEN DIPSTICK (test code = URO) norm mg/dL 0.0-0.2 UA NITRITE DIPSTICK (test code = VINCE) NEGATIVE NEGATIVE UA LEUKOCYTE ESTERASE DIPSTICK (test code = LEUU) 100 Lashawn/uL (1+) u L NEGATIVE A UA WBC (test code = WBCU) 3-5 per HPF 0-5 UA RBC (test code = RBCU) 0-3 per HPF 0-5 UA EPITHELIAL CELLS (test code = EPIU) Moderate (5-10/hpf) per HPF Few UA BACTERIA (test code = BACU) MANY per HPF NONE Urine Source? Clean CatchUR HCG [id number] 09:00:00* Test Item Value Reference Range Interpretation Comments UR HCG QUAL (test code = HCGQLU) NEGATIVE This HCGQL test is NOT applicable for MALE patients.Check with nurse about probable order error.If Tumor Marker Test needed, nurse should order test "HCGTU"(Test #550.43487) Urine Source? Clean CatchDRUGS OF ABUSE SCREEN [id number] 09:00:00* Test Item Value Reference Range Interpretation Comments URN COCAINE (test code = COCAURN) NEGATIVE URN CANNABINOIDS (test code = CANNABURN) NEGATIVE URN AMPHETAMINE (test code = AMPHETURN) NEGATIVE URN BARBITURATE (test code = BARBITURN) NEGATIVE URN BENZODIAZEPINE (test code = BENZOURN) NEGATIVE URN OPIATES (test code = OPIATURN) NEGATIVE URN PHENCYCLIDINE (PCP) (test code = PHENCURN) NEGATIV E Urine Source? Clean CatchURINALYSIS [id number] 08:55:00* Test Item Value Reference Range Interpretation Comments UA COLOR (test code = COLU) YELLOW YELLOW UA APPEARANCE (test code = APPU) HAZY CLEAR A UA GLUCOSE DIPSTICK (test code = DGLUU) norm mg/dL NEGATIVE UA BILIRUBIN DIPSTICK (test code = BILU) NEGATIVE mg/dL NEGATIVE UA KETONE DIPSTICK (test code = KETU) neg mg/dL NEGATIVE UA SPECIFIC GRAVITY (test code = SGU) 1.015 1.001-1.035 UA BLOOD DIPSTICK (test code = CORY) 25 (1+) Vish/uL NEGATIVE A UA PH DIPSTICK (test code = BRANDON) 6.5 5.0-8.0 UA PROTEIN DIPSTICK (test code = PROU) 30 (1+) mg/dL Neg-15 A UA UROBILINIOGEN DIPSTICK (test code = URO) norm mg/dL 0.0-0.2 UA NITRITE DIPSTICK (test code = VINCE) NEGATIVE NEGATIVE UA LEUKOCYTE ESTERASE DIPSTICK (test code = LEUU) 100 Lashawn/uL (1+) u L NEGATIVE A UA WBC (test code = WBCU) per HPF 0-5 UA RBC (test code = RBCU) per HPF 0-5 UA EPITHELIAL CELLS (test code = EPIU) per HPF Few UA BACTERIA (test code = BACU) per HPF NONE Urine Source? Clean CatchUR HCG [id number] 08:55:00* Test Item Value Reference Range Interpretation Comments UR HCG QUAL (test code = HCGQLU) NEGATIVE This HCGQL test is NOT applicable for MALE patients.Check with nurse about probable order error.If Tumor Marker Test needed, nurse should order test "HCGTU"(Test #550.93394) Urine Source? Clean CatchDRUGS OF ABUSE SCREEN [id number] 08:55:00* Test Item Value Reference Range Interpretation Comments URN COCAINE (test code = COCAURN) NEGATIVE URN CANNABINOIDS (test code = CANNABURN) NEGATIVE URN AMPHETAMINE (test code = AMPHETURN) NEGATIVE URN BARBITURATE (test code = BARBITURN) NEGATIVE URN BENZODIAZEPINE (test code = BENZOURN) NEGATIVE URN OPIATES (test code = OPIATURN) NEGATIVE URN PHENCYCLIDINE (PCP) (test code = PHENCURN) NEGATIV E Urine Source? Clean CatchURINALYSIS [id number] 08:53:00* Test Item Value Reference Range Interpretation Comments UA COLOR (test code = COLU) YELLOW YELLOW UA APPEARANCE (test code = APPU) HAZY CLEAR A UA GLUCOSE DIPSTICK (test code = DGLUU) norm mg/dL NEGATIVE UA BILIRUBIN DIPSTICK (test code = BILU) NEGATIVE mg/dL NEGATIVE UA KETONE DIPSTICK (test code = KETU) neg mg/dL NEGATIVE UA SPECIFIC GRAVITY (test code = SGU) 1.015 1.001-1.035 UA BLOOD DIPSTICK (test code = CORY) 25 (1+) Vish/uL NEGATIVE A UA PH DIPSTICK (test code = BRANDON) 6.5 5.0-8.0 UA PROTEIN DIPSTICK (test code = PROU) 30 (1+) mg/dL Neg-15 A UA UROBILINIOGEN DIPSTICK (test code = URO) norm mg/dL 0.0-0.2 UA NITRITE DIPSTICK (test code = VINCE) NEGATIVE NEGATIVE UA LEUKOCYTE ESTERASE DIPSTICK (test code = LEUU) 100 Lashawn/uL (1+) u L NEGATIVE A UA WBC (test code = WBCU) per HPF 0-5 UA RBC (test code = RBCU) per HPF 0-5 UA EPITHELIAL CELLS (test code = EPIU) per HPF Few UA BACTERIA (test code = BACU) per HPF NONE Urine Source? Clean CatchUR HCG [id number] 08:53:00* Test Item Value Reference Range Interpretation Comments UR HCG QUAL (test code = HCGQLU) Urine Source? Clean CatchDRUGS OF ABUSE SCREEN [id number] 08:53:00* Test Item Value Reference Range Interpretation Comments URN COCAINE (test code = COCAURN) NEGATIVE URN CANNABINOIDS (test code = CANNABURN) NEGATIVE URN AMPHETAMINE (test code = AMPHETURN) NEGATIVE URN BARBITURATE (test code = BARBITURN) NEGATIVE URN BENZODIAZEPINE (test code = BENZOURN) NEGATIVE URN OPIATES (test code = OPIATURN) NEGATIVE URN PHENCYCLIDINE (PCP) (test code = PHENCURN) NEGATIV E Urine Source? Clean KbylnVZBFYWJPMG0556-18-39 14:27:0014.1[facility] HermannCHEM FMUQJ5113-07-16 10:40:0099[facility] HermannCHEM SYYDY6082-88-55 10:40:008[facility] HermannCHEM HFJYS0242-81-00 10:40:000.59[facility] HermannCHEM SIGXQ0090-87-02 10:40:63988Hovvclew HermannCHEM BQFDJ0497-64-74 10:40:004.0[facility] HermannCHEM XPXWQ3992-79-63 10:40:23745Zzgxsqar HermannCHEM VGYQR9056-24-32 10:40:0025 [facility] HermannCHEM ASTEW6131-08-77 10:40:008.5[facility] HermannCHEM PANEL 2019-11-03 10:40:006.4[facility] HermannCHEM FHVUW0989-85-33 10:40:002.8[facility] HermannCHEM VFHTA3106-13-04 10:40:0051[facility] HermannCHEM VACRA7038-15-88 10:40:0041[facility] HermannCHEM AAOOD9006-18-02 10:40:0084[facility] HermannCHEM CDJEH9606-28-89 10:40:000.4[facility] HermannCHEM OQXXG3854-46-50 10:40:008.0 [facility] HermannCHEM QYRYB0946-95-22 10:40:00* Test Item Value Reference Range Interpretation Comments B/C Ratio (test code = B/C Ratio) 14 1 6-25 [facility] HermannCHEM FCIVK3663-03-02 10:40:003.6[facility] HermannCHEM PANEL 2019-11-03 10:40:00* Test Item Value Reference Range Interpretation Comments A/G Ratio (test code = A/G Ratio) 0.8 1 0.7-1.6 [facility] HermannCHEM AJGBU6624-63-98 10:40:98537Vkuotoqt HermannHEMATOLOGY 2019-11-03 10:40:0065.6[facility] OthirbtZSNAUVIWAJ4169-12-11 10:40:0020.6[facility] PwbswnjDSWCFVBDZU4025-87-22 10:40:008.8[facility] NnumpncAAQUOBXRKF7310-01-93 10:40:004.2[facility] EexywuuTTHXGERGFL7357-30-83 10:40:000.8[facility] CTYEQNNIEN9769-98-48 10:40:006.0[facility] VurrrhyBKWXFFEHBU2294-87-78 10:40:001.9 [facility] BgtqmeyPQUNHXJJTB3535-90-63 10:40:000.8[facility] HermannHEMATOLOGY 2019-11-03 10:40:000.4[facility] BthkpmaXRSAXHJSXK0119-79-43 10:40:000.1[facility] BvpupesJKNODCFIXP2926-32-50 10:40:009.1[facility] KdkpjbaVFZSYUYXPX5482-43-92 10:40:004.27[facility] QqfldnfTBYHKXHIKU3459-00-39 10:40:0012.4[facility] KPVRVYZIXI3803-82-61 10:40:0038.1[facility] SkoxxgiEWDWUHWGLY9588-46-19 10:40:00 89.2[facility] JfijwzoYSPVTYRZDF2015-06-63 10:40:00* Test Item Value Reference Range Interpretation Comments MCH (test code = MCH) 29.0 pg 27.0-31.0 [facility] HbdfwckYOEUBIXEMC0204-91-53 10:40:0032.5[facility] HermannHEMATOLOGY 2019-11-03 10:40:0013.1[facility] YpbnicwMPZZDNMGON9403-38-08 10:40:65375Crrbogjc AoywgeaKSRGNGZNES5786-71-76 10:40:008.9[facility] HermannSPECIAL CHEMISTRY 2019-11-03 10:40:005.3[facility] HermannCHEM MJLES9951-66-48 10:09:0096[facility] HermannCHEM JOFBG5840-65-72 10:09:009[facility] HermannCHEM ZVHGO4613-55-53 10:09:000.70[facility] HermannCHEM LHLII9036-14-34 10:09:02074Qnztaiqm HermannCHEM VCATK2780-65-93 10:09:004.0[facility] HermannCHEM FZQEA5105-31-75 10:09:82926 [facility] HermannCHEM QJBAZ0355-74-13 10:09:0026[facility] HermannCHEM PANEL 2019-11-02 10:09:008.3[facility] HermannCHEM KSWON8544-97-39 10:09:009.0[facility] HermannCHEM UBFYS3764-02-12 10:09:14277Lmkpmsmm Charles- CTA VTISV9502-39-41 20:38:00 Name: COLLEEN JOHNSON [facility] : 1985 Age/S: 33 / F [address] [facility] Unit #: [id number] Loc: Freddy Navarro [address] Phys: Loreto Whiting MD Acct: [id number] Dis Date: Status: REG ER PHONE #: [phone] Exam Date: 08/16/20191954 FAX #: [phone] Reason: SOB, pleuritic CP, hemoptysis EXAMS: CPT CODE: [id number] CTA CHEST 38206 REASON FOR EXAM: SOB, pleuritic CP, hemoptysis EXAM ORDER DATE: 08/16/2019 6:12 PM Ordering M.D.: Loreto Whiting MD PROCEDURE: - CTA CHEST Comparison:CT chest February 01, [address] images of the chest were obtained contrast enhanced. Reconstructed sagittal and coronal images of the chest were provided for interpretation. Dose reduction techniques were applied. FINDINGS: Timing of the contrast bolus is suboptimal for evaluation of pulmonary emboli Visualized neck: Normal Airways, Lungs and Pleura: Groundglass and tree-in-bud opacities are seen in the anteromedial basal segment of the left lower lobe. There is a calcified granuloma in the superior segment of the right lower lobe. Remainder of the lungs are clear Heart, great vessels, pulmonary vessels, mediastinum: Limited evaluation for the presence of pulmonary emboli. No right heart strain or findings to suggest pulmonary artery hypertension. Otherwise normal Lymph nodes: No axillary, internal mammary, hilar, or mediastinal adenopathy. Musculoskeletal/chest wall: There are mild degenerative changes in the thoracic spine. Visualized upper abdomen: Prior cholecystectomy. Otherwise normal IMPRESSION: Limited evaluation for pulmonary embolus due to contrast bolus timing. However no findings of right heart strain or elevated pulmonary arterial pressure to suggest a hemodynamically significant pulmonary embolus. Groundglass and tree-in-bud opacities in the anteromedial basal PAGE 1 Signed Report (CONTINUED) [facility] 1985 Age[facility]S: 33 / F [address] [facility] Unit #: [id number] Loc: Freddy Navarro [address] Phys: Loreto Whiting MD Acct: [id number] Dis Date: Status: REG ER PHONE #: [phone] Exam Date: 08/16/2019 1955 FAX #: [phone] Reason: SOB, p leuritic CP, hemoptysis EXAMS: CPT CODE: [id number] CTA CHEST 16709 <Continued> segment of the left lower lobe may represent an infectious process. Remainder of the lungs are clear. Location: [facility] at 2038 Reported and signed by: Carlton Alcaraz MD CC: Loreto Whiting MD Technologist:EDY LUNA RT(R),RDMS,CT CTDI: DLP: Trnscb Date/Time: 08/16/2019 (2037) [id number] Orig Print D/T: S: 08/16/2019 (2040) PAGE 2 Signed Report - XR CHEST 2 [id number] 20:03:00 Name: COLLEEN JOHNSON [facility] : 1985 Age/S:33 /F [address] [facility] Unit#:[id number] Loc: [place] [address] Phys: Kaylee Whiting MD Dis Date: PHONE #: [phone] Status: REG ER FAX #: [phone] Exam Date: 08/16/2019 Re ason: SOB EXAMS: CPT CODE: [id number] XR CHEST 2 V [id number] REASON FOR EXAM: SOB Exam Order Date: 08/16/2019 5:54 PM Ordering M.DPriscilla: Hector Whiting MD PROCEDURE: - XR CHEST 2 V COMPARISON : CT chest February 01, 2015 FINDINGS: The lungs are clear. T here is no pleural effusion or pneumothorax. Pulmonary vascularity is with in normal limits. Cardiomediastinal silhouette is normal in size f or technique. The mediastinal contours are within normal limits. Musculoskeletal structures are within normal limits. The visu alized upper abdomen is within normal limits. IMPRESSION : No acute cardiopulmonary process. Location: [facility] at 2003 Reported and signed by: Carlton Alcaraz MD CC: Cailin Whiting MD Technologist: EDY LUNA RT(R),R DMS,CT Trnscrpt Data: 08/16/2019 (2002) [id number] Orig Print D/T: S: 08/16/2019 (2006) PAGE 1 Signed Report [id number] 18:37:00* Test Item Value Reference Range Interpretation Comments D-DIMER (test code = DDIMER) < 100 ng/ml < 600 COMPREHENSIVE METABOLIC [id number] 18:35:00* Test Item Value Reference Range Interpretation Comments SODIUM (test code = NA) 141 mmol/L 136-145 N POTASSIUM (test code = K) 3.6 mmol/L 3.5-5.1 N CHLORIDE (test code = CL) 103 mmol/L 101-109 N CARBON DIOXIDE (test code = CO2) 27.2 mmol/L 21-32 N ANION GAP (test code = GAP) 14 mmol/L 10-20 N GLUCOSE (test code = GLU) 85 mg/dL 74-106 N BLOOD UREA NITROGEN (test code = BUN) 13 mg/dL 3-21 N CREATININE (test code = CREAT) 0.88 mg/dL 0.55-1.3 N BUN/CREATININE RATIO (test code = BUN/CREA) 14.8 10-20 N TOTAL PROTEIN (test code = PROT) 7.6 g/dL 6.5-8.4 N ALBUMIN (test code = ALB) 3.6 g/dL 3.4-4.8 N GLOBULIN (test code = GLOB) 4.0 G/DL 1-10 N ALBUMIN/GLOBULIN RATIO (test code = A/G) 0.90 RATIO 0.75-1.50 N CALCIUM (test code = CA) 9.1 mg/dL 8.4-10.2 N BILIRUBIN TOTAL (test code = BILT) 0.30 mg/dL 0.0-1.0 N SGOT/AST (test code = AST) 22 U/L 6-32 N SGPT/ALT (test code = ALT) 34 U/L 12-78 N N ote: Change in REFERENCE RANGE due to new reagent method. ALKALINE PHOSPHATASE TOTAL (test code = ALKP) 74 U/L 38-126 N [id number] 18:35:00* Test Item Value Reference Range Interpretation Comments TROPONIN-I (test code = TROPI) <0.015 ng/mL 0.00-0.056 N COMPREHENSIVE METABOLIC [id number] 18:22:00* Test Item Value Reference Range Interpretation Comments SODIUM (test code = NA) 141 mmol/L 136-145 N POTASSIUM (test code = K) 3.6 mmol/L 3.5-5.1 N CHLORIDE (test code = CL) 103 mmol/L 101-109 N CARBON DIOXIDE (test code = CO2) 27.2 mmol/L 21-32 N ANION GAP (test code = GAP) 14 mmol/L 10-20 N GLUCOSE (test code = GLU) 85 mg/dL 74-106 N BLOOD UREA NITROGEN (test code = BUN) 13 mg/dL 3-21 N CREATININE (test code = CREAT) 0.88 mg/dL 0.55-1.3 N BUN/CREATININE RATIO (test code = BUN/CREA) 14.8 10-20 N TOTAL PROTEIN (test code = PROT) gram/dL 6.4-8.2 ALBUMIN (test code = ALB) g/dL 3.4-5.0 GLOBULIN (test code = GLOB) g/dL 2.7-4.2 ALBUMIN/GLOBULIN RATIO (test code = A/G) 0.75-1.50 CALCIUM (test code = CA) 9.1 mg/dL 8.4-10.2 N BILIRUBIN TOTAL (test code = BILT) mg/dL 0.2-1.2 SGOT/AST (test code = AST) IUnit/L 15-37 SGPT/ALT (test code = ALT) U/L 10-69 ALKALINE PHOSPHATASE TOTAL (test code = ALKP) IUnit/L 45-117 FFCQLNSG-B6755-14-31 18:22:00* Test Item Value Reference Range Interpretation Comments TROPONIN-I (test code = TROPI) ng/mL 0-0.045 CBC W/AUTO IIBX1323-13-50 18:15:00* Test Item Value Reference Range Interpretation Comments WHITE BLOOD CELL (test code = WBC) 7.4 K/mm3 4.5-12.5 N RED BLOOD CELL (test code = RBC) 5.07 mill/mm3 3.7-5.2 N HEMOGLOBIN (test code = HGB) 14.2 gram/dL 11.5-15.5 N HEMATOCRIT (test code = HCT) 44.4 % 36.0-46.0 N MEAN CELL VOLUME (test code = MCV) 87.6 fL 80-98 N MEAN CELL HGB (test code = MCH) 28.0 picogram 27.0-33.0 N MEAN CELL HGB CONCETRATION (test code = MCHC) 32.0 gram/dL 33.0-36. 0 L RED CELL DISTRIBUTION WIDTH (test code = RDW) 12.9 % 11.6-16. 2 N RED CELL DISTRIBUTION WIDTH SD (test code = RDW-SD) 41.8 fL 37 .0-51.0 N PLATELET COUNT (test code = PLT) 244 K/mm3 150-450 N MEAN PLATELET VOLUME (test code = MPV) 10.5 fL 6.7-11.0 N NEUTROPHIL % (test code = NT%) 51.9 % 39.0-69.0 N LYMPHOCYTE % (test code = LY%) 32.4 % 25.0-55.0 N MONOCYTE % (test code = MO%) 10.3 % 0.0-10.0 H EOSINOPHIL % (test code = EO%) 4.6 % 0.0-5.0 N BASOPHIL % (test code = BA%) 0.7 % 0.0-1.0 N NEUTROPHIL # (test code = NT#) 3.85 K/mm3 1.8-7.7 N LYMPHOCYTE # (test code = LY#) 2.40 K/mm3 1.0-5.0 N MONOCYTE # (test code = MO#) 0.76 K/mm3 0-0.8 N EOSINOPHIL # (test code = EO#) 0.34 K/mm3 0.0-0.5 N BASOPHIL # (test code = BA#) 0.05 K/mm3 0.0-0.2 N MANUAL DIFF REQUIRED (test code = MDIFF) NO ANKLE 3 VIEW RT - [id number] 19:27:00 [place] [address] Patient Name: COLLEEN JOHNSON MR #: [id number] : 1985 Age/Sex: 33/F Req #: - [id number] [facility] Physician: Ordered by: GLYNN BHATT MD Report #: [id number] Location: [facility] Room/Bed: Procedure: 1722-0927 HOPD/ANKLE 3 VIEW RT - HOPD Exam Date: 07/29/19 Exa m Time: 1922 REPORT STATUS: Signed Exam: Right Ankle Series. History: Hit back of ankle one week ago Comparison: None. DISCUSSION: 3 views of the right ankle. There is nor mal bone mineralization. No evidence of acute, displaced fracture or dislocat ion. Ankle mortise is preserved.No osteochondral lesion. Large anterior calcan eal enthesophyte. No soft tissue swelling. IMPRESSION: 1. No acute a bnormalities. The staff physician below has personally reviewed this exam o n the date of dictation. Signed by: Dr. Duarte Mota M.D. on 07/29/2019 7:27 PM Dictated By: DUARTE MOTA MD Electronicall y Signed By: DUARTE MOTA MD on 07/29/191926 Transcribed By: LILIA on 07/17 COPY TO: GLYNN BHATT MD HPTKWXGOJQIB8904-34-76 07:19:0010.1[facility] RyustvpHDOHQQWAUELQ7653-80-84 07:19:00* Test Item Value Reference Range Interpretation Comments B/C Ratio (test code = B/C Ratio) 20 1 6-25 [facility] JwxfxttVEIJHDNKBRGC1090-62-69 07:19:004.3[facility]annELECTROLYTES 2019-05-25 07:19:00* Test Item Value Reference Range Interpretation Comments A/G Ratio (test code = A/G Ratio) 0.9 1 0.7-1.6 [facility] HhghwwaKCTVECEPFHLW1272-36-30 07:19:0094[facility]annELECTROLYTES 2019-05-25 07:19:0013[facility] TlnssxpMITNAFQKGJPK4643-65-53 07:19:000.66[facility] ZxtexxuEPAICXBTTNZM5354-72-23 07:19:87699Mlcalgdu IunbndfYBKOHQRHLBWJ6017-23-48 07:19:004.1[facility] IrlnwupRAOKHUZLLAEM5054-22-89 07:19:16819Lxlrxkpv [facility] PQADMDNGPIAS5463-97-27 07:19:0024[facility] BldqppeJYBBYKJQEZDQ4497-03-57 07:19:00 9.3[facility] MmjvcghNOISMJVTYUSX2428-37-04 07:19:008.2[facility] CHCBLXSHNAAN7602-98-65 07:19:003.9[facility] SpjpzcwBUNBVWAJVZGQ0752-09-63 07:19:0025[facility] YkoyocqTRPIPPIEGHTF9813-77-21 07:19:0014[facility] MPFZGYXCYFFD0846-11-28 07:19:0098[facility] FktehuyFVACVOQKEGUM5635-83-31 07:19:00 0.4[facility] MxjuknuZLIKDRJQSKMU4342-89-32 07:19:83453Yyeobymp [facility] YKVAIFHAQITJE4576-03-53 07:19:00Negative *NA*(05/25/19 2:19 AM)[facility] JHVCBFQTGT5447-67-70 07:19:0014.7[facility] YkmeeokQQXPUGOZKH3822-11-27 07:19:00 4.90[facility] RpohyzuBLXXHDQXCY7417-90-41 07:19:0014.1[facility] HermannHEMATOLOGY 2019-05-25 07:19:0043.2[facility] NconkdiOGLRSGESNW6818-22-53 07:19:0088.2[facility] OknpdjkWODVJOSOPA3273-12-68 07:19:00* Test Item Value Reference Range Interpretation Comments MCH (test code = MCH) 28.8 pg 27.0-31.0 [facility] NgxsgtwPKGONKLDQI8721-29-85 07:19:0032.7[facility] HermannHEMATOLOGY 2019-05-25 07:19:0013.2[facility] OquohamAIZJRAIXHX6553-00-34 07:19:19299Khknmjow HseugdqPNPTGBNYNW1499-77-70 07:19:008.5[facility] LlmbpboOPIEFVIEIU3305-11-41 07:19:0066.4[facility] HxxyvkbXBFMGJPMVQ1605-15-65 07:19:0021.1[facility] CLYIZLMGJU8150-55-86 07:19:007.4[facility] AwroomaPACVOENOSB1083-97-56 07:19:004.1 [facility] RrgyqqhVICJQMAZBO2963-91-19 07:19:001.0[facility] HermannHEMATOLOGY 2019-05-25 07:19:009.8[facility] NrtxfbrWUPUCZTHGA8142-91-63 07:19:003.1[facility] YowfwzoRXGELRYPNK4691-33-17 07:19:001.1[facility] KefrlinWMFGASDSHJ6219-04-45 07:19:000.6[facility] VsefmwfFMHKTTELQP2608-01-34 07:19:000.1[facility] HermannCHEM OOZGT8807-84-93 22:11:73664Wfakazvn HermannCHEM MWLPZ5082-24-43 22:11:0010 [facility]annCHEM POXBI7314-97-16 22:11:000.78[facility]annCHEM PANEL 2019-04-03 22:11:02153Zbkmelni HermannCHEM BQTFW8352-71-50 22:11:003.9[facility] HermannCHEM IVKNE6675-48-54 22:11:80245Umrhucyp HermannCHEM CVGVR2713-40-06 22:11:0025[facility] HermannCHEM QFQLN0411-06-90 22:11:008.8[facility] HermannCHEM AVFJI3657-86-49 22:11:82722Cvoyydkb HermannCHEM EEEPN9430-72-73 22:11:0010.9 [facility] OovzynzZAVSVZKYNQUCG5853-58-45 22:11:00Negative *NA*(04/03/19 5:11 PM) [facility] KowtbdgZKQRYPEDVI2036-58-91 22:11:0011.5[facility] HermannHEMATOLOGY 2019-04-03 22:11:004.85[facility] MjwhigrBRVGYSRGYX0308-77-40 22:11:0014.2[facility] BabwmrlZVEJVTPECR4877-79-10 22:11:0043.0[facility] JcwvwzrCUDZFKXBTE7212-20-78 22:11:0088.7[facility] YuhmnbrJQRZGSZWSD0194-93-57 22:11:00* Test Item Value Reference Range Interpretation Comments MCH (test code = MCH) 29.2 pg 27.0-31.0 [facility] HhdqdpqGQJFDLTEKU3316-12-86 22:11:0033.0[facility] HermannHEMATOLOGY 2019-04-03 22:11:0013.3[facility] VcgkcyeZNKBNZGWND8395-38-96 22:11:52786Bnymbuft EdbxpjuMSVAGAEKKZ8202-78-67 22:11:008.4[facility] DjhtdwjWUVOBUFUKZ2819-14-74 22:11:0066.0[facility] RbsqqeyMXLYQVLZWE2301-96-14 22:11:0021.2[facility] SCSEZPRKKJ0295-55-84 22:11:008.2[facility] DclpgaiMDBBYMGZTG6457-91-66 22:11:003.6 [facility] OfqqozeGCXKILEEMN3677-32-75 22:11:001.0[facility] HermannHEMATOLOGY 2019-04-03 22:11:007.6[facility] ZpveykyLWPBCMFQUU7622-03-88 22:11:002.4[facility] BowpakfXXAVEQRMMB9455-16-67 22:11:000.9[facility] LcezlueOVFMADBYUH7285-82-59 22:11:000.4[facility] MqhoustHRRZKZMGQL2643-35-08 22:11:000.1[facility] QHTRQKHSOW2104-25-82 08:46:0011.2[facility] AucmnqiYXMWDESOGV2486-07-44 08:46:00 13.7[facility] EhedtobOPYPIVXZQQ5027-86-85 08:46:008.9[facility] HermannHEMATOLOGY 2019-03-24 08:46:004.66[facility] JiwknsxVPCTBIEJUQ1878-75-69 08:46:93840Gggcbzlv FfzemgcBBBVFEKJVK7243-09-97 08:46:00* Test Item Value Reference Range Interpretation Comments MCH (test code = MCH) 29.5 pg 27.0-31.0 [facility] EjfgkscHAMTKIKPPV6488-20-74 08:46:0033.8[facility] HermannHEMATOLOGY 2019-03-24 08:46:0013.7[facility] YvuhtuwAXDNQQBGWA8778-60-36 08:46:0040.6[facility] ZvriufzRVOABXKJXL0467-81-09 08:46:0087.1[facility] AnhcnshAETTAYSZYF5985-14-95 08:46:003.3[facility] YzevxhcWYRHIBATSB9648-94-90 08:46:007.6[facility] ITYBTTNOEY7042-90-92 08:46:000.1[facility] KvzlaiuSYHOOMWEXF5643-72-54 08:46:000.4 [facility] CcqxylqOHFVXFUVPU6286-10-40 08:46:0065.7[facility] HermannHEMATOLOGY 2019-03-24 08:46:0022.6[facility] MietmnfRXCSBDKIZI8835-69-43 08:46:007.4[facility] YfddklhFERDRIOYXA6378-92-49 08:46:000.8[facility] SsdxemnQVLJUQIRCI9844-96-83 08:46:000.8[facility] HcgjqydQZHVNITKHL6151-50-46 08:46:002.5[facility] HermannCHEM AAECP3356-81-33 03:31:00<0.05[facility] HermannCHEM VZZQP8230-38-89 22:26:001.7 [facility] HermannCHEM LDROP1519-10-98 17:57:001.7[facility] HermannELECTROLYTES 2019-03-23 17:57:0011.5[facility] RibhuhlBFNLXRABTTPG0148-71-50 17:57:0099[facility] PalzkghWGKVARUZZRZG4688-30-34 17:57:64185Wkhxvldq HvjacfcYRWRSMLEICFA0142-87-10 17:57:008.8[facility] PxluyseBMIOCSFBKHJF0257-03-70 17:57:0025[facility] GFHVBVRWHLHQ7918-56-80 17:57:02220Imlvwzja WlrijcqXWDOJMBYPSPC1148-41-29 17:57:003.5[facility] GyykwmdWTZJHYKANWAC3693-70-24 17:57:41970Eqmhgcoj [facility] LRVMMCQTNTLR4876-86-47 17:57:000.79[facility] MqhcrpoDUBUQITXVFWA7842-90-66 17:57:0010[facility] YfdbicjDNRGKTKEDL4601-45-57 17:57:000.7[facility] RUNDCATZEK2591-87-45 17:57:000.3[facility] CfeatatRZJLJBUISY6263-05-91 17:57:001.0 [facility] BeucazbMUGBUMFIDK4739-45-19 17:57:003.1[facility] HermannHEMATOLOGY 2019-03-23 17:57:000.1[facility] IeacyfxMDJPRVWRAW6304-00-99 17:57:008.0[facility] PzhlzraHRHKCQZFFY2397-90-17 17:57:002.1[facility] EcbtnuxBAEUUAVKNU5522-51-27 17:57:0018.5[facility] YwwgwneWPBXMEEJWS9646-56-43 17:57:006.6[facility] KFGDPPKJNA4272-85-48 17:57:0070.8[facility] HfnfzhiYOXDUKOEZX9214-40-87 17:57:00 271[facility] HorruakZKRMTHPUNT2806-63-27 17:57:008.0[facility] HermannHEMATOLOGY 2019-03-23 17:57:0013.6[facility] BzisdpbQBFOLJUOGD2036-81-70 17:57:00* Test Item Value Reference Range Interpretation Comments MCH (test code = MCH) 29.3 pg 27.0-31.0 [facility] ZozgoipPJGAEJPNCM8533-24-09 17:57:0033.3[facility] HermannHEMATOLOGY 2019-03-23 17:57:0088.1[facility] NdnaauxHAXTMCNZQT9225-91-94 17:57:0014.2[facility] YeuowqsPZCTFJTJOK0451-98-80 17:57:0042.6[facility] IvamjkoSSDTMTKPTP2026-97-45 17:57:004.84[facility] EfswzcgPOTBOMMBUP9438-48-73 17:57:0011.2[facility] CHEM NXTSR6322-03-55 08:05:005.1[facility] HermannCHEM DYOBV1424-84-56 08:05:001.7 [facility] HevwjkmRRZEOOWRGSSN8892-90-53 08:05:0010.8[facility] HermannELECTROLYTES 2019-03-07 08:05:40605Coopfaaq DmugpdoAHRPBJWASJAU1094-45-03 08:05:008.8[facility] JtdadjzMXFXFDJPWXYS8439-73-97 08:05:0029[facility] PjeowayHBPLYKBSCRSA3959-53-15 08:05:78776Smxwagbb OvnpavbXPFBUDAMLDYP7585-80-05 08:05:003.8[facility] FLVODPMSNPSE8313-17-26 08:05:0011[facility] JvlohfiDBIIRQYBRZNQ3187-91-36 08:05:00 0.78[facility] VksylohLWSSBUHXKQKP2689-48-23 08:05:77618Bjxropca [facility] AWIOEGQYOZXK1876-75-67 08:05:47340Sfhwjsyp LdrvqzhFKBBGOANIY2903-40-92 08:05:00 256[facility] NwjqommHUWIWUODAT5949-26-05 08:05:008.9[facility]annHEMATOLOGY 2019-03-07 08:05:0013.6[facility] WahyujhASGDWUFUSQ1212-25-58 08:05:0033.8[facility] VbopccrTEUCCXUYON6706-19-41 08:05:0086.3[facility] IgyuhiqVHARODDHBK4412-01-41 08:05:00* Test Item Value Reference Range Interpretation Comments MCH (test code = MCH) 29.2 pg 27.0-31.0 [facility] JhoduwrMIXCJWNYFJ4676-09-14 08:05:0013.5[facility] HermannHEMATOLOGY 2019-03-07 08:05:004.63[facility] FvmumqnCQSDSOOSHX2176-72-82 08:05:0039.9[facility] MftvnozHIQSLHGELT1795-29-86 08:05:0010.0[facility] WmzmewuFSUKGHNNLK5888-57-18 08:05:000.1[facility] YecukavKURCJIJKCO7742-21-20 08:05:000.4[facility] ACZXLDEXLQ5692-70-40 08:05:004.4[facility] SzvgkqjNYYIHBGRYN1929-07-50 08:05:002.7 [facility] HmeokdtVSRYCFVPOH1865-12-61 08:05:000.7[facility] HermannHEMATOLOGY 2019-03-07 08:05:000.7[facility] BgoilixGATSNBVZUK9994-21-10 08:05:006.1[facility] NptizjfENCDLXPTUV6608-17-49 08:05:006.7[facility] KbbevqeURTGJQAHIX7721-77-71 08:05:0026.7[facility] ShklqunPDNEQEUDMS2838-46-67 08:05:0061.5[facility] CHEM QTIMV1264-98-96 10:30:004.2[facility] HermannCHEM AICPU7982-72-70 10:30:001.8 [facility] UoqtbqdTSLYXMTHXMYU4631-75-29 10:30:004.0[facility] HermannELECTROLYTES 2019-03-06 10:30:57090Dlhqffqk ThqrzonHRJQOWIWAZXJ5730-55-81 10:30:0026[facility] YrdainiRSSLNLDSMREX1955-33-48 10:30:98518Cscyoneu CfwnvreWIBOXEUAPBEV7585-58-38 10:30:000.71[facility] JhvbgxfAGDTRHZBXCVG5968-68-36 10:30:008.6[facility] JHRKGDWYVVMB4027-42-81 10:30:73742Aotetskp QarcomrZCGGRXKYBPSY7072-04-87 10:30:61459Oryyastd PtajnfgEUQTEJRPAGGG7940-49-81 10:30:0011[facility] UJDWOYQMIXWD4006-90-59 10:30:0011.0[facility] GqtjayrHDCIVGJMRL6376-10-69 10:30:00 4.7[facility] BweltliXCQZMMOPDF8754-79-85 10:30:0027.0[facility]annHEMATOLOGY 2019-03-06 10:30:007.3[facility] JowesrgBLPKTGTTIC5366-39-29 10:30:0059.8[facility] YhcgilgDBEALLAFVH7450-15-71 10:30:000.4[facility] GrmhmtmQPXEGWMCFN2807-45-48 10:30:002.3[facility] PsgbfjiOJIDDANDAL4524-59-79 10:30:000.6[facility] AJFZPBKHNS2592-50-65 10:30:001.2[facility] NtsoxalDAKHYWHYAA1718-25-70 10:30:005.1 [facility] GcnpodsSYAEQNKYUF5399-92-73 10:30:000.1[facility]annHEMATOLOGY 2019-03-06 10:30:0037.4[facility] BkgbyjwVFLOBYDLAJ4648-96-52 10:30:008.5[facility] VrpvpanUQYAANAPVM5802-20-24 10:30:004.32[facility] NfjvrdqGSYUQBVAOP3267-09-27 10:30:0012.7[facility] BiwgevwMUXOQAVXIC8766-94-08 10:30:0086.6[facility] WUBOFJGVHG0292-55-96 10:30:008.7[facility] CzlwqrpWVWDAIEYZQ5834-74-50 10:30:19419 [facility] UunfomkGNULEJBEHS8400-62-42 10:30:00* Test Item Value Reference Range Interpretation Comments MCH (test code = MCH) 29.3 pg 27.0-31.0 [facility] LtfkcahWEOIOKJKEJ7709-77-86 10:30:0033.9[facility]annHEMATOLOGY 2019-03-06 10:30:0013.7[facility] AdoszzxDTZARWUIYA5315-94-11 16:55:0017.8[facility] HdjrcpuAULPDJZSPZ7752-65-72 16:55:00* Test Item Value Reference Range Interpretation Comments Morenita Storey TND (test code = Morenita Storey TND) 1300 1 [facility]annCHEM ZBOXN7626-43-52 08:21:004.6[facility] HermannCHEM PANEL 2019-03-04 08:21:001.7[facility] JjoupdxICPXBRKLDKPB2347-71-79 08:21:008.6[facility] ZnvvryjVQTGNOUVMZOD5502-81-08 08:21:07592Oahauovc AhexdwyKGLIKHYXRJNM3155-23-73 08:21:000.62[facility] DwakryyVIGRZSZOABXD0922-09-32 08:21:003.6[facility] MUXRYXSXYVGV3470-84-28 08:21:96705Vsaznijl KlzvbgyIDLBYNVCQSDD6833-33-17 08:21:32757Ktwexfsa CidygfpKSVOXDUHAYFP4473-25-51 08:21:0028[facility] UNMTDVWGORRQ4927-80-23 08:21:008.2[facility] LmfjkhyXKJJZUFEMCYR6257-84-89 08:21:007[facility] OkealtgMYDYXQOLHQXN4086-55-32 08:21:86192Hofibkso [facility] WRULHDDHBG4496-68-49 08:21:0012.5[facility] TopoydoBXQGNEYUQG8523-04-69 08:21:00* Test Item Value Reference Range Interpretation Comments MCH (test code = MCH) 29.7 pg 27.0-31.0 [facility] LwaulxmBFUTEYGJAO7996-37-25 08:21:0086.9[facility]annHEMATOLOGY 2019-03-04 08:21:0036.5[facility] SnrszoxBWKKSPSKOW5300-14-29 08:21:83695Awfybhtv CdlucjwEDZLNMOAHQ6602-40-98 08:21:0013.9[facility] CxhzeguZCHQECZPPH3870-02-30 08:21:008.9[facility] CvxnzsnOTWLJMZVGD7390-52-18 08:21:009.0[facility] SRNSFCMXWW7745-00-34 08:21:0034.2[facility] UvzdmtuAFCASCBMEE5204-08-80 08:21:00 4.20[facility] GbkrdsxIQJOWTBIKL5031-64-23 08:21:005.2[facility]annHEMATOLOGY 2019-03-04 08:21:002.6[facility] JyvlpsoCRFSASWKJM6738-70-89 08:21:000.8[facility] CnorgdxWSNXPBPGUP5841-98-69 08:21:000.4[facility] BsjefepWOBSLQGGPA5662-60-12 08:21:0057.6[facility] ZbplxuwLVLKMUOYOK8667-68-87 08:21:0028.4[facility] LGSANIKQCW2661-43-62 08:21:008.8[facility] QdvhkqjPMWPPFMWJU7435-95-35 08:21:004.1 [facility] IqdcoqbNGJRVIPVDV3629-52-03 08:21:001.1[facility]annHEMATOLOGY 2019-03-04 08:21:000.1[facility] HermannCIPROFLOXACIN:SUSC:PT:ISOLATE:ORDQN:MONISHA 2019-03-02 22:15:00Staphylococcus aureusMemorial OsgmmccZULAKBSAPQ3299-69-19 16:54:00* Test Item Value Reference Range Interpretation Comments Morenita SANCHEZD (test code = Morenita Storey TND) 1300 1 [facility] HbiruutFGFWSANXWV9519-03-68 16:54:0014.7[facility]annURINE AND STOOL 2019-03-01 21:13:00Negative (03/01/19 4:13 PM)[facility] STOOL 2019-03-01 21:13:00Negative (03/01/19 4:13 PM)[facility] STOOL 2019-03-01 21:13:0087[facility]UR[facility] AND BJEVW3964-98-94 21:13:003[facility] ISROF4089-55-70 21:13:00* Test Item Value Reference Range Interpretation Comments UA pH (test code = UA pH) 7.0 1 5.0-8.0 [facility] TNNLH5935-65-71 21:13:00Large *ABN*(03/01/19 4:13 PM) [facility] CJJQY2597-93-95 21:13:00Negative *NA*(03/01/19 4:13 PM) [facility] MKSAM6896-29-79 21:13:00* Test Item Value Reference Range Interpretation Comments UA Spec Grav (test code = UA Spec Grav) 1.010 1 [facility] XCZDJ4540-59-73 21:13:00Slight *ABN*(03/01/19 4:13 PM) [facility] OUXDX1424-03-11 21:13:00Yellow *NA*(03/01/19 4:13 PM) [facility]annCHEM VCBKK9125-40-42 08:18:003.4[facility]annCHEM PANEL 2019-03-01 08:18:007.2[facility]annCHEM MNLKM5289-85-64 08:18:0086[facility]annCHEM PNQYZ9569-39-22 08:18:000.5[facility]annCHEM HLAWM4623-16-27 08:18:0012[facility]annCHEM JLBRG7160-09-07 08:18:0020[facility]annCHEM CWCGB0342-90-13 08:18:00* Test Item Value Reference Range Interpretation Comments A/G Ratio (test code = A/G Ratio) 0.9 1 0.7-1.6 [facility]annCHEM NTQWA4885-55-53 08:18:00* Test Item Value Reference Range Interpretation Comments B/C Ratio (test code = B/C Ratio) 16 1 6-25 [facility]annCHEM INNYU4129-32-23 08:18:003.8[facility]annHEMATOLOGY 2019-03-01 08:18:00* Test Item Value Reference Range Interpretation Comments INR (test code = INR) 1.14 1 0.85-1.17 [facility] UhcczlfOAUNIVRIIM5904-82-09 08:18:00* Test Item Value Reference Range Interpretation Comments PTT (test code = PTT) 38.3 s 22.9-35.8 [facility] OensfduTZGKUVRYEJ8880-01-05 08:18:00* Test Item Value Reference Range Interpretation Comments PT (test code = PT) 14.4 s 12.0-14.7 [facility]annCHEM TCFXM4123-65-89 04:02:001.4[facility] HermannENDOCRINOLOGY 2019-03-01 04:02:00<1[facility] JdwremxICIGDYCXVE9535-11-68 00:33:0010.8[facility] UidydjfDLTGALZWQT7180-45-90 00:33:00* Test Item Value Reference Range Interpretation Comments Morenita Storey TND (test code = Morenita Tr TND) 2000 1 [facility] HermannBACTERIAL - LTANEBHH5369-34-58 16:23:00Negative (01/30/19 11:23 AM)[facility] CrrftpgGYUTIZYJOF7595-18-33 18:29:0018.9[facility] HermannTOXICOLOGY 2019-01-29 18:29:00* Test Item Value Reference Range Interpretation Comments Vanco Tr TND (test code = Vanco Tr TND) 1330 1 [facility] QjpmkmtPBAEXPPAWG9809-13-50 08:44:00* Test Item Value Reference Range Interpretation Comments MCH (test code = MCH) 28.5 pg 27.0-31.0 [facility] KqeqdkfBLCIEUBCEU6673-47-38 08:44:0087.8[facility]annHEMATOLOGY 2019-01-29 08:44:0038.5[facility] TffjfpoEJDYGBAEXS8344-48-48 08:44:0012.5[facility] JomhuceQCGTEPGTTA4111-87-88 08:44:004.38[facility] VaxaqruOTIHHTZRNJ1866-31-63 08:44:64654Wojtzyvv AmbvrxzIRJKUGWVLA1660-62-67 08:44:0032.5[facility] GONQUNMPKJ4847-41-03 08:44:008.5[facility] PvfrgmcVRBBHBDSEW4152-61-65 08:44:00 13.5[facility] MumyptoWNOXZZUKFQ0528-46-06 08:44:008.1[facility]annTOXICOLOGY 2019-01-28 17:25:0018.3[facility] WpwtlcgXDHBVRIBIF3240-15-69 17:25:00* Test Item Value Reference Range Interpretation Comments Vanco Tr TND (test code = Vanco Tr TND) 1230 1 [facility]annCEFEPIME:SUSC:PT:ISOLATE:ORDQN:FUL4953-28-93 00:35:00 Staphylococcus aureusMemorial HermannCEFEPIME:SUSC:PT:ISOLATE:ORDQN:MONISHA 2019-01-28 00:35:00Klebsiella pneumoniae ssp pneumoniaeMemorial [facility] [place] CEFEPIME:SUSC:PT:ISOLATE:ORDQN:RKF6456-64-97 00:35:00Proteus mirabilisMemorial HermannURINE AND XMOUW7825-32-50 11:31:00Negative (01/27/19 6:31 AM)[facility] PNAKY6393-24-04 11:31:002[facility] AND STOOL 2019-01-27 11:31:005[facility] AND NAKQF4626-00-17 11:31:00* Test Item Value Reference Range Interpretation Comments UA pH (test code = UA pH) 6.0 1 5.0-8.0 [facility] YBDJB6002-17-65 11:31:00Yellow *NA*(01/27/19 6:31 AM) [facility] JQSIF9919-55-63 11:31:00* Test Item Value Reference Range Interpretation Comments UA Spec Grav (test code = UA Spec Grav) 1.028 1 [facility] SMNYU5737-16-39 11:31:00Slight *ABN*(01/27/19 6:31 AM) [facility] DTRLW7083-14-20 11:31:00Negative (01/27/19 6:31 AM) [facility] OSSGV0529-44-14 11:31:00Negative *NA*(01/27/19 6:31 AM) [facility] IIMAA4820-82-98 11:31:00Negative (01/27/19 6:31 AM) [facility] EVOV2267-35-14 11:31:00Negative (01/27/19 6:31 AM)[facility]annCHEM XIZKF9113-58-74 08:45:001.5[facility] HermannCHEM ZKBMM4097-58-19 08:08:00* Test Item Value Reference Range Interpretation Comments B/C Ratio (test code = B/C Ratio) 19 1 6-25 [facility]annCHEM EDOAF3997-31-34 08:08:003.9[facility] HermannCHEM PANEL 2019-01-27 08:08:00* Test Item Value Reference Range Interpretation Comments A/G Ratio (test code = A/G Ratio) 0.9 1 0.7-1.6 [facility]annCHEM LCODR0667-42-25 08:08:0013.9[facility] HermannCHEM PANEL 2019-01-27 08:08:99658Oxwupvss HermannCHEM VCETB2921-35-64 08:08:0018[facility]annCHEM NNIIQ2865-67-79 08:08:0092[facility]annCHEM QMAZK5506-00-28 08:08:003.9[facility]annCHEM ZKAAC9782-40-14 08:08:000.3[facility]annCHEM IFMRB5159-84-76 08:08:003.6[facility]annCHEM JEXTK6848-35-70 08:08:0024 [facility]annCHEM YHKTJ6556-26-51 08:08:007.5[facility] HermannCHEM PANEL 2019-01-27 08:08:13342Teqghpup HermannCHEM QNWJO8652-86-86 08:08:0024[facility]annCHEM PSLFQ2338-65-15 08:08:09827Bykuahga HermannCHEM XHKMM5687-14-62 08:08:008.5[facility] HermannCHEM UKIKV1100-38-87 08:08:0014[facility]annCHEM RWJPS0844-22-97 08:08:000.75[facility]annCHEM CESVY2533-31-34 08:08:0091 [facility] OoioxjzXQGMVZHCHG5809-94-41 08:08:006.5[facility]annHEMATOLOGY 2019-01-27 08:08:008.1[facility] HypfjgmKGMZYNCSDV5953-65-32 08:08:000.9[facility] VxnkodySXQCUEGIAR5223-30-56 08:08:002.9[facility] FyzaofoYFWAFFIBGB2930-75-39 08:08:007.4[facility] UxfqhhoGSTXEMQJTJ4064-79-89 08:08:001.0[facility] HKGATSZRTC8386-32-79 08:08:000.8[facility] UfioxdbGBXPDZCTPW2921-35-85 08:08:000.1 [facility] TxjyvlyJTAMSGNDQD1278-88-19 08:08:0023.6[facility]annHEMATOLOGY 2019-01-27 08:08:0060.9[facility] YekwjpwDIIIMVKYXK4734-11-25 08:08:0012.2[facility] GxkkpakQSEXQHRIFH7463-54-98 08:08:0032.4[facility] TkzcekzILMTTRTNCZ8143-97-35 08:08:0013.7[facility] IggyytxFGCWAAHHHK1294-85-91 08:08:00* Test Item Value Reference Range Interpretation Comments MCH (test code = MCH) 28.5 pg 27.0-31.0 [facility] EpxxainQSBKYLQKKX2947-57-58 08:08:0088.2[facility]annHEMATOLOGY 2019-01-27 08:08:0041.4[facility] CjoyiecHDZIYFKYMR3620-97-62 08:08:004.69[facility] UymqomkSSWXKGJJVQ2728-33-61 08:08:0013.4[facility] FpceqpkCLABGWNZQN4990-95-03 08:08:008.8[facility] NyhmnwsZAEYRIVQAI6682-56-49 08:08:05499Uroeojpn HermannCHEM JUYRS5001-12-86 01:46:001.0[facility] EosdujjWYNTIELNDXOT0854-12-94 01:46:04931 [facility] WdhryboVZJCOVWKJQHC7888-65-66 01:46:001.04[facility] HermannELECTROLYTES 2018-12-13 01:46:0071[facility] DrdkfmaYTEFXMDVWXOM8111-03-71 01:46:0088[facility] CgtwsvpHDVKVWXPJIWB6230-16-93 01:46:003.4[facility] IrdptglDUFIMMNSSPQD2199-14-16 01:46:0015[facility] GifviqoTSXTKJWQNNOW6827-99-78 01:46:0079[facility] DPWURCVTLWTJ7494-12-01 01:46:003.2[facility] AdevegxFNVGTTVUWSTQ5157-70-75 01:46:0015[facility] AgobgstZPJNSEPUFDSN0967-41-36 01:46:000.2[facility] XINYSMIJTTZT1705-34-13 01:46:0024[facility] QiwhrroSVTUTDHCWGMN9362-86-66 01:46:00 105[facility] UaoueupCENJNAGYMYHK7002-15-86 01:46:0029[facility] HermannELECTROLYTES 2018-12-13 01:46:008.8[facility] WcpucghFXMDHIPEPOND7387-59-98 01:46:007.7[facility] GyyyibtLZBTJRAIROOO5297-38-69 01:46:00* Test Item Value Reference Range Interpretation Comments B/C Ratio (test code = B/C Ratio) 14 1 6-25 [facility] LvkqembQYHSUNVCHIXE7491-15-08 01:46:009.4[facility] HermannELECTROLYTES 2018-12-13 01:46:00* Test Item Value Reference Range Interpretation Comments A/G Ratio (test code = A/G Ratio) 0.7 1 0.7-1.6 [facility] TcfjmdqRGJJZBROMTHH3873-84-19 01:46:004.5[facility] HermannHEMATOLOGY 2018-12-13 01:46:000.1[facility] GgphxmuQMJSKKFALL7931-21-29 01:46:002.6[facility] MazdiriPHWMYXXUOJ6429-79-53 01:46:000.8[facility] WcjdkziAHRPVWNGSF8828-71-53 01:46:000.5[facility] BhdmritOLIBOVLDES8807-76-66 01:46:004.0[facility] SORJTARUGD1999-98-16 01:46:007.1[facility] XncuovoLBGWWEZKSL0718-95-42 01:46:00 22.7[facility] PlxshqsLEKKGLOPJE7759-70-93 01:46:001.2[facility] HermannHEMATOLOGY 2018-12-13 01:46:007.3[facility] GoefurcFLXDYJUMJU4034-51-09 01:46:0065.0[facility] McfpfvtKOTOHIROOC1669-51-48 01:46:0013.3[facility] AxrnpedHGOCOYNCWV7190-99-83 01:46:0033.7[facility] CdgvzlrGEKCOCLFOV6339-69-02 01:46:49096Kdceubyj [place] OOKZXPQHWA2950-74-77 01:46:007.7[facility] BcevxjjKUMKHRWBQA2687-80-23 01:46:00 4.45[facility] OidqpeiUVEZUIBDQE1603-69-77 01:46:00* Test Item Value Reference Range Interpretation Comments MCH (test code = MCH) 28.9 pg 27.0-31.0 [facility] EgbbnshUYMNFZCAVR6113-73-24 01:46:0085.7[facility] HermannHEMATOLOGY 2018-12-13 01:46:0011.3[facility] GbvorplDVRYFMBSRH6087-59-03 01:46:0012.9[facility] PgcqydvHCGFEQPNBL0162-84-26 01:46:0038.1[facility] GqgpaemWJKDYEPRQA6364-27-84 01:04:00* Test Item Value Reference Range Interpretation Comments Morenita Tr TND (test code = Vanco Tr TND) 2100 1 [facility] AxjtqliLOVSKLDFYR2162-92-23 01:04:0016.7[facility] HermannCHEM PANEL 2018-12-08 08:20:0093[facility]annCHEM BNKEE5974-38-24 08:20:57154Tcqnuxpe HermannCHEM FIPZO4912-04-85 08:20:000.83[facility]annCHEM XNTIQ9062-94-88 08:20:006[facility]annCHEM QIZAR3959-83-40 08:20:0098[facility]annCHEM IFGGZ3940-37-81 08:20:0029[facility]annCHEM OZAWD1988-63-43 08:20:16864 [facility]annCHEM SUJZH0628-85-96 08:20:003.8[facility]annCHEM PANEL 2018-12-08 08:20:008.8[facility]annCHEM FHHVE1062-87-90 08:20:0011.8[facility] SceqikoLWDNNVETUP9668-04-42 08:20:008.5[facility] ZcxgimgFKUBKIDSHS1134-61-35 08:20:0061.1[facility] MzrpxowPITRKYHDMR9070-20-56 08:20:005.9[facility] FMAUWUKIHI9903-28-97 08:20:0023.5[facility] TsmoqbkDQHMZHHRVY4538-64-61 08:20:00 0.1[facility] WxvwexoRFMFBVMJWO0140-80-66 08:20:000.6[facility]annHEMATOLOGY 2018-12-08 08:20:000.8[facility] ZtwrdhhGKAFILHKPA6270-30-95 08:20:002.3[facility] DygmrqiOYRJNBUWYV9597-56-69 08:20:001.0[facility] LqphrcrKYPPMIWFBC0325-87-06 08:20:006.0[facility] DcmoanxNBNDTSDGSK2447-62-58 08:20:007.8[facility] PZCGHFSCKR5586-15-17 08:20:64149Rldqgkso VhhxnkpHXHYEGFSEE0396-08-90 08:20:00 13.1[facility] VxsclrfWPCLDMOXCD5674-71-93 08:20:0033.6[facility] HermannHEMATOLOGY 2018-12-08 08:20:0035.3[facility] EyqpxxiGFIADYLKMM7913-22-40 08:20:0086.2[facility] ZfyzidoYLTOYRHTBZ1374-70-05 08:20:009.7[facility] QaqoudvYJEAEPZWKR1830-28-41 08:20:00* Test Item Value Reference Range Interpretation Comments MCH (test code = MCH) 28.9 pg 27.0-31.0 [facility] DjluqxtZRXVUQDZVA9067-01-20 08:20:004.10[facility]annHEMATOLOGY 2018-12-08 08:20:0011.9[facility] TwymkcwYQLPMXDVBX1004-23-12 17:03:0015.3[facility] DtzcfweXINALNXBACIO0795-65-30 08:16:009.8[facility] GrxzgdsYJGYBPFHMAGB6165-81-74 08:16:71593Wllxplqy RtwdwpjTZRBNTWFVVLF9351-36-65 08:16:44674Ijpgeuwy [facility] POUJYPGXNZBP3563-72-30 08:16:003.8[facility] FaodsqySQDXJJQHFAMM9529-07-57 08:16:008.1[facility] CywefcqTSCLYGDQGXPP7431-20-50 08:16:0031[facility] TRMDLYDJDKLA4675-11-51 08:16:77453Misxaqfx NcsbymzWFUWZNNUVJGA8776-08-05 08:16:000.69[facility] YotbxavQQCDSJDGXGIY2091-90-36 08:16:006[facility] PXQLJVZPNDOL3353-48-19 08:16:77052Bzuvzmqc HrwtkvnMIYVRPFILQ1595-33-96 08:16:00 87.1[facility] CwfwywqHBJFBJIVKY1243-19-30 08:16:0034.8[facility] HermannHEMATOLOGY 2018-12-07 08:16:00* Test Item Value Reference Range Interpretation Comments MCH (test code = MCH) 28.8 pg 27.0-31.0 [facility] VjzsbhhCWSTFNYWFD9221-51-38 08:16:0011.5[facility] HermannHEMATOLOGY 2018-12-07 08:16:007.7[facility] YgptxldJMCTRKOGCM8238-51-13 08:16:0013.3[facility] VttfznfXOHSEXOJBJ4339-77-71 08:16:0033.1[facility] DpsfikbKKQDAQHCZP6521-29-31 08:16:18487Uavsrokj ApghjgaDIIPQEOFOQ8882-58-76 08:16:004.00[facility] GIMOIRDMFM9437-85-81 08:16:009.8[facility] MnyryppLFDTRCJSHM4082-03-25 08:16:000.8 [facility] QvqnxcxOSKOPCJSQQ3887-16-32 08:16:000.6[facility] HermannHEMATOLOGY 2018-12-07 08:16:000.1[facility] UvwozghPUBRDLSLZF6308-25-25 08:16:0061.0[facility] JoqejxbNEATUDWQCQ2104-52-69 08:16:007.8[facility] RylffrsQQFNMKLEVY1139-07-68 08:16:001.1[facility] RmxbcjqQNSPNZWYEV1520-02-65 08:16:006.5[facility] KNWYNFWAYF4818-97-55 08:16:0023.6[facility] AwtpfpqMIDUKCASYN5494-50-34 08:16:00 2.3[facility] FrqbieaQNZSMHDDNA9394-29-36 08:16:006.0[facility] AMPICILLIN+SULBACTAM:SUSC:PT:ISOLATE:ORDQN:ADU6437-63-86 17:32:00Staphylococcus aureusMemorial FgjrvbtQENPLDZOOJ3117-90-04 14:55:00* Test Item Value Reference Range Interpretation Comments Morenita Storey TND (test code = Morenita Storey TND) 0930 1 [facility] QbbgvncQBCIPPMQFN1075-24-03 14:55:0014.8[facility] HermannCHEM PANEL 2018-12-06 07:45:63708Pwcgnjiv HermannCHEM EVEZI6395-81-66 07:45:008[facility]annCHEM OOXBX5157-59-56 07:45:000.49[facility]annCHEM ZJIOR9927-52-52 07:45:008.2[facility]annCHEM KPYYA2271-42-96 07:45:003.8[facility] HermannCHEM OSQSR8100-26-17 07:45:08112Haifplzy HermannCHEM NZHOM8548-07-03 07:45:99932 [facility]annCHEM AGRQI8576-56-31 07:45:0027[facility]annCHEM PANEL 2018-12-06 07:45:0099[facility]annCHEM ONMLU7376-85-70 07:45:009.8[facility] VqueuenBUITSUUVIJ5493-27-34 07:45:000.1[facility] BuxmjcyQOQXVHDAYB3063-21-04 07:45:001.0[facility] EpuyaboQPLSEJFXLV9385-82-11 07:45:002.1[facility] CIAEKLSXOJ5113-36-33 07:45:004.8[facility] KbdyfgwKGTPQNBOIR8614-79-13 07:45:000.5 [facility] OvtdusxGDLVZUNOBE6334-81-92 07:45:000.8[facility] HermannHEMATOLOGY 2018-12-06 07:45:009.8[facility] FtertpgXVQJSIRGZM3690-93-88 07:45:0025.0[facility] EdzlvxdINFRUZBIBK9830-95-53 07:45:006.3[facility] WbfbwujGMZWAZYLOV7241-23-41 07:45:0057.9[facility] AccfxtmLHDXTFGPON7628-77-19 07:45:00* Test Item Value Reference Range Interpretation Comments INR (test code = INR) 1.09 1 0.85-1.17 [facility] HarsbuyDOYVTBJPCJ2296-80-67 07:45:00* Test Item Value Reference Range Interpretation Comments PT (test code = PT) 13.9 s 12.0-14.7 [facility] WilvtcqLTWZHAMEZR7826-15-10 07:45:008.3[facility] HermannHEMATOLOGY 2018-12-06 07:45:0013.2[facility] CvzaxozNLQCGLDXEA9832-37-81 07:45:0033.0[facility] QpmjhpyQWFIHVDYBU0487-08-91 07:45:73160Boibwmqn XgmupisCMTTKNIKEQ3922-65-27 07:45:003.96[facility] PhmnbolBJKLDLJCOM2628-19-99 07:45:008.4[facility] LYOMLMRJOO7977-12-87 07:45:00* Test Item Value Reference Range Interpretation Comments MCH (test code = MCH) 28.6 pg 27.0-31.0 [facility] IddvcssWGPBZPYLWY3465-98-43 07:45:0086.6[facility] HermannHEMATOLOGY 2018-12-06 07:45:0011.3[facility] BowmdnlTYZEJGWYLF3287-00-76 07:45:0034.3[facility] SimmjvuCICFUHNQFD8413-65-83 05:49:0015.3[facility] HermannCHEM PBZFD9394-01-05 06:52:001.9[facility] HermannCHEM HVYJU1668-89-27 06:52:000.7[facility] HermannCHEM RLGTH9149-44-40 06:52:0072[facility] HermannCHEM LMUIA1510-89-62 06:52:006.9 [facility]annCHEM CXFYY3579-71-96 06:52:0013[facility] HermannCHEM PANEL 2018-12-04 06:52:0029[facility] HermannCHEM ZSEAI7577-10-77 06:52:002.8[facility] HermannCHEM HPCLC6259-77-76 06:52:004.1[facility] HermannCHEM IBHSC0522-33-36 06:52:00* Test Item Value Reference Range Interpretation Comments A/G Ratio (test code = A/G Ratio) 0.7 1 0.7-1.6 [facility] HermannCHEM FQNGE1772-43-65 06:52:00* Test Item Value Reference Range Interpretation Comments B/C Ratio (test code = B/C Ratio) 14 1 02-08 [facility]offhncKDSSLFALIJ7664-71-43 06:52:00* Test Item Value Reference Range Interpretation Comments PTT (test code = PTT) 44.5 s 22.9-35.8 [facility] HospitalVewyefaTUAVTJDLCO8519-08-28 06:52:00* Test Item Value Reference Range Interpretation Comments PT (test code = PT) 16.0 s 12.0-14.7 [facility] HospitalQtzacfhAEKIUSQVQT7191-95-74 06:52:00* Test Item Value Reference Range Interpretation Comments INR (test code = INR) 1.31 1 0.85-1.17 [facility]annCHE[facility] XTCSK9438-60-41 02:50:001.1[facility] HermannCHEM PANEL 2018-12-03 21:23:000.7[facility] NulqdmxFVIUBNWNTQLAA9888-09-54 21:23:00Negative *NA*(12/03/18 4:23 PM)[facility] HermannCHEM GHKAZ4690-38-34 07:12:001.0[facility] HermannCHEM CCOEQ3065-10-09 03:34:00* Test Item Value Reference Range Interpretation Comments B/C Ratio (test code = B/C Ratio) 19 02-08 [facility] HermannCHEM HCTQF5160-10-45 03:34:009.8[facility] HermannCHEM PANEL 2018-10-11 03:34:004.5[facility] HermannCHEM YIABH9345-90-69 03:34:00* Test Item Value Reference Range Interpretation Comments A/G Ratio (test code = A/G Ratio) 0.8 1 0.7-1.6 [facility] HermannCHEM SDTOG4158-51-12 03:34:0093[facility] HermannCHEM PANEL 2018-10-11 03:34:0024[facility] HermannCHEM XILJX5385-75-74 03:34:0017[facility] HermannCHEM WLGBH1312-37-42 03:34:0081[facility] HermannCHEM ELMBW3140-05-45 03:34:000.3[facility] HermannCHEM JKQIX7159-43-76 03:34:000.83[facility] HermannCHEM SLOMH9306-30-37 03:34:0084[facility]annCHEM OCJBH8686-60-34 03:34:0016 [facility]annCHEM WRSWZ9129-42-42 03:34:003.8[facility] HermannCHEM PANEL 2018-10-11 03:34:22745Guxitxie HermannCHEM WAUBO9402-90-31 03:34:0026[facility] HermannCHEM IYVMO5905-17-18 03:34:008.5[facility] HermannCHEM RJIAS4678-05-79 03:34:81330Dafaeymr HermannCHEM MUNEZ5195-39-16 03:34:008.0[facility] HermannCHEM XUFWJ4706-53-28 03:34:003.5[facility] AdigtbmEEFMJVQHOR4350-73-10 03:34:000.8 [facility] ZvzdfcfDCPAWHZCNJ0980-43-58 03:34:000.1[facility] HermannHEMATOLOGY 2018-10-11 03:34:000.3[facility] OttpxobHOMUOEHEEO5673-86-68 03:34:007.7[facility] LijefdqBSNNKLIZMA0498-41-80 03:34:003.0[facility] ZvkzfitWVTUEWBOMC9680-64-27 03:34:000.6[facility] YtwgvgoAFFEPSYSPO4336-34-04 03:34:006.8[facility] YUWXYTCNPQ1227-79-62 03:34:002.4[facility] GvexnvtVHZEVQSWMX5431-98-30 03:34:00 22.9[facility] HzaiijfOXDXMAPBZW5126-80-55 03:34:0065.8[facility] HermannHEMATOLOGY 2018-10-11 03:34:0013.3[facility] GvdaxysMLEYXGPBDW0756-88-76 03:34:0032.5[facility] YqthkvaXEIGDJHBIY4430-55-86 03:34:00* Test Item Value Reference Range Interpretation Comments MCH (test code = MCH) 28.8 pg 27.0-31.0 [facility] OuudxbhFJZSCJKIPD9773-57-50 03:34:0042.6[facility] HermannHEMATOLOGY 2018-10-11 03:34:0013.8[facility] KwfsqxyNGSEHMHWUM5366-45-98 03:34:0010.3[facility] LkopyjxVIMPXPGVDQ8740-05-18 03:34:0088.5[facility] AgoxsrwRPCKWTUBFD3932-28-14 03:34:004.81[facility] VpqtyckGEYYTIRLZK2507-70-04 03:34:97343Zupbhmmi [place] UIOKLUKBNX0038-55-94 03:34:008.7[facility]- CT HEAD/BRAIN W/O CONT 2018-09-23 11:52:00 Name: COLLEEN JOHNSON [facility] : 1985 Age/S: 32 / F [address] Unit #: [id number] Loc: [place] [address] Phys: Sergio Ellis MD Acct: [id number] Dis Date: Status: REG ER PHONE #: [phone] Exam Date: 09/23/2018 1144 FAX #: [phone] Reason: numbness right side of face EXAMS: CPT CODE: [id number] CT HEAD/BRAIN W/O CONT 18597 HISTORY: Numbness to the right side. COMPARISON: None available. CT brain without contrast: Automated exposure control. No acute intracranial bleeds or extra-axial collections and there is no acute territorial vascular infarction. The moreno-white matter differentiation is preserved. The sulci, gyri, ventricles and subarachnoid spaces and the basilar cisterns are normal for patient's age. No herniation or hydrocephalus or midline shift is noted. Fourth ventricle remains midline. Portions of the visualized paranasal sinuses demonstrating mucosal thickening of the ethmoid air cells bilaterally. No obvious bony calvarial defect is noted. IMPRESSION: No acute intracranial bleeds or extra-axial collections. No acute territorial vascular infarction. No herniation or hydrocephalus or midline shift. at 1152 Reported and signed by: Justin Leon M.D. CC: Sergio Ellis MD Technologist:Aleida Billings,RT(R),CT CTDI: DLP: Trnscb Date/Time: 09/23/2018 (3259) t.[email or web address] Orig Print D/T: S: 09/23/2018 (4737) CTDI: DLP: PAGE 1 Signed Report CHEM KERCU5069-76-64 06:46:001.5[facility] HermannCHEM KRWHH1460-39-74 06:46:000.5[facility] HermannCHEM TWIGX8492-01-17 06:46:0015 [facility]annCHEM XEIJD6344-91-03 06:46:0074[facility] HermannCHEM PANEL 2018-09-06 06:46:0072[facility] HermannCHEM TDTQD9335-76-17 06:46:001.03[facility] HermannCHEM MUPIF0332-17-93 06:46:04681Foasqyis HermannCHEM ZJLNR6882-70-39 06:46:003.6[facility] HermannCHEM DRACW0259-77-21 06:46:007.4[facility] HermannCHEM ZVSNK0545-60-47 06:46:003.3[facility] HermannCHEM JHWGE9208-56-95 06:46:0027 [facility]annCHEM PTVPU5145-27-34 06:46:45400Tdvdsiyt HermannCHEM PANEL 2018-09-06 06:46:0011[facility] HermannCHEM PRCSA0782-94-73 06:46:008.3[facility] HermannCHEM URTNA4602-99-22 06:46:01363Yiqygxfb HermannCHEM FCBQK1506-73-24 06:46:0024[facility] HermannCHEM AGQTP6114-74-21 06:46:00* Test Item Value Reference Range Interpretation Comments A/G Ratio (test code = A/G Ratio) 0.8 1 0.7-1.6 [facility]annCHEM OUNDH0183-64-30 06:46:0010.6[facility] HermannCHEM PANEL 2018-09-06 06:46:00* Test Item Value Reference Range Interpretation Comments B/C Ratio (test code = B/C Ratio) 11 1 6-25 [facility]annCHEM ABFGQ7320-90-32 06:46:004.1[facility] HermannCHEM PANEL 2018-09-06 06:46:80690Zlynwbhf BymqlbuBCLPSEJSMODGG6621-90-78 06:46:00Negative *NA*(09/06/18 12:46 AM)[facility] RvkruwhSPVEHVHQHA7203-02-12 06:46:15809Xunnayhp CscmahzUFDODNAYZA5620-81-45 06:46:008.3[facility] BurqstyZSMWXPNCAA6019-23-82 06:46:0033.1[facility] SieylcwGWEDRGVWME7326-03-48 06:46:0013.7[facility] CYJNBMZMAL4270-45-93 06:46:00* Test Item Value Reference Range Interpretation Comments MCH (test code = MCH) 28.5 pg 27.0-31.0 [facility] IvmcdrrJSWFCZOEPG6789-81-83 06:46:004.70[facility] HermannHEMATOLOGY 2018-09-06 06:46:0013.4[facility] GmghzmaYMBCKWCSSD4379-62-60 06:46:0012.6[facility] JgebpylRLOSIJYMFK3168-10-60 06:46:0040.5[facility] PgwixteDODLQCBXSJ2383-84-45 06:46:0086.2[facility] ZapqsxeCWENFSRXGR1446-95-45 06:46:000.1[facility] IIVVLNHLNF4982-35-45 06:46:000.4[facility] BzbgiwsTFXRIWLBCC4331-68-96 06:46:000.8 [facility] XrhxdvcKRTJMEXTUN4244-88-49 06:46:008.4[facility] HermannHEMATOLOGY 2018-09-06 06:46:002.9[facility] JwgsdksAFPOVJYPKF6949-36-72 06:46:003.6[facility] FdwfkiuGDPUIAODYJ1353-29-43 06:46:000.7[facility] SheijbzJNTDZMEBZK3984-14-74 06:46:0022.9[facility] KnwrlvxAWORECCSZI8636-31-84 06:46:006.3[facility] FTAVIZYKHS4730-07-34 06:46:0066.5[facility]annURINE AND SAXLR4397-09-75 06:46:00Negative (09/06/18 12:46 AM)[facility]annURINE AND URJXO2018-94-11 06:46:81467Houlycal HermannURINE AND WRYJA0149-13-93 06:46:003[facility] URINE AND ZVVKA9657-94-84 06:46:00Negative *NA*(09/06/18 12:46 AM)[facility]annURINE AND HWISN7181-44-42 06:46:00Slight *ABN*(09/06/18 12:46 AM)[facility]annURINE AND DLECL1490-71-73 06:46:00Yellow *NA*(09/06/18 12:46 AM)[facility]annURINE AND KVKNI8261-19-69 06:46:00* Test Item Value Reference Range Interpretation Comments UA Spec Grav (test code = UA Spec Grav) 1.023 1 [facility]annURINE AND VKMAX6180-96-50 06:46:00Negative (09/06/18 12:46 AM) [facility] AND BUSUF0104-21-03 06:46:00* Test Item Value Reference Range Interpretation Comments UA pH (test code = UA pH) 5.0 1 5.0-8.0 [facility]annUR[facility] AND FOVID8630-22-32 06:46:00Negative (09/06/18 12:46 AM) [facility] AND YCLGL9589-96-34 06:46:00Negative *NA*(09/06/18 12:46 AM)[facility] AND FQUFF5821-98-03 06:46:00Negative *NA*(09/06/18 12:46 AM)[facility] AND RLHTR2372-08-07 06:46:00Large *ABN*(09/06/18 12:46 AM)[facility] HermannCHEM YLAWE3033-36-18 10:22:001.9[facility] HermannELECTROLYTES 2018-08-28 10:22:0011.1[facility] HnxkxssVVXQDRBSHSZX9404-51-70 10:22:57985 [facility] BpmipuiKMBVZFNOQRJY8763-96-40 10:22:008.4[facility] HermannELECTROLYTES 2018-08-28 10:22:0013[facility] VjobjcsCQKMPEJJCBDG8698-43-25 10:22:53333Mhmyafki VtkfhwjLENVWPTHAITV2263-19-32 10:22:000.69[facility] BtpsrvaOXFBKYFCRFWN9490-45-87 10:22:004.1[facility] HbwsfznPFIMKOZGPTQS3700-05-35 10:22:0025[facility] DIPRBVEGXUNZ2022-90-60 10:22:03111Islfqqyb PefcuzsCYCSMAXUXGGH9619-07-42 10:22:41249Byywrlzk OoydqtkBWWJJTKUGH9802-60-99 10:22:00* Test Item Value Reference Range Interpretation Comments INR (test code = INR) 1.01 1 0.85-1.17 [facility] RbjoejyCKWKNAHIHK4560-37-62 10:22:00* Test Item Value Reference Range Interpretation Comments PTT (test code = PTT) 33.7 s 22.9-35.8 [facility] BxcapckBACBQXZXZL3382-22-81 10:22:00* Test Item Value Reference Range Interpretation Comments PT (test code = PT) 13.1 s 12.0-14.7 [facility] LzwsxrqMJZIEGFCBD6763-33-48 10:22:0026.9[facility] HermannHEMATOLOGY 2018-08-28 10:22:002.1[facility] ZmusdotPRRSYKKZRV4942-07-43 10:22:006.7[facility] WgafqesTRYUNMYZPA8164-30-60 10:22:009.3[facility] PbkqvqmHFMSTFSKTC0478-16-00 10:22:0056.2[facility] BurasjtMELNHDANAK6522-79-28 10:22:000.7[facility] YZRZMYALLE5356-72-89 10:22:000.5[facility] LfynzgeNRTUWQNBVK6816-82-39 10:22:004.3 [facility] NezufvcGGZEFEBZKX3018-31-57 10:22:000.9[facility] HermannHEMATOLOGY 2018-08-28 10:22:000.1[facility] SsumhyjICHKYTCRCY5576-62-67 10:22:008.1[facility] QvetfpiPWFVFDRESU1276-47-00 10:22:0013.4[facility] YrcrqhnJDYYZJRHCV7276-45-64 10:22:13034Bngzfdjq FmmgddpHICVKQFEXR4789-47-86 10:22:0033.2[facility] POVEXHEFAX5721-89-25 10:22:0087.4[facility] CziejdrLVBVSBQUFL0279-35-23 10:22:00* Test Item Value Reference Range Interpretation Comments MCH (test code = MCH) 29.0 pg 27.0-31.0 [facility] LnvzkxxNCWCCNTZEA2989-01-84 10:22:0041.5[facility] HermannHEMATOLOGY 2018-08-28 10:22:007.7[facility] QfftyhgVLFWHQFEED5009-25-41 10:22:004.74[facility] OrwiylePZPGLIWIFX4517-96-30 10:22:0013.8[facility] PfmewbsXXUWIQZYBT0871-03-73 05:09:00* Test Item Value Reference Range Interpretation Comments PT (test code = PT) 12.9 s 12.0-14.7 [facility] RgvrbuuNLQZZWKTUR5674-72-27 05:09:00* Test Item Value Reference Range Interpretation Comments INR (test code = INR) 0.99 1 0.85-1.17 [facility] HermannCHEM WXYSP2803-97-06 10:55:002.1[facility] HermannELECTROLYTES 2018-08-27 10:55:81524Vhtwlqaq RmdpugwFIJXMVKNCSAZ5108-47-34 10:55:004.1[facility] NqwqhrjMCLKFEWKEPPO3346-46-71 10:55:06662Bumshcln FvtspwsRFWEMSDMOVKL6732-97-18 10:55:0012[facility] CuevelyZCIRKFJVNMWO5268-49-31 10:55:0090[facility] KPRCKNJFZXHH2521-63-06 10:55:000.62[facility] IgnphqeWTCQOTEMRCYW5537-69-55 10:55:008.4[facility] SbzrmeyVSWPSPWXEPRQ5888-95-23 10:55:0028[facility] FOWSSFYTAJZJ6370-78-89 10:55:87935Ndpexezy LgihclmQXYKEJPGRBZX8540-50-12 10:55:0012.1[facility] EelyzrrDEZFLSQTAA6341-88-49 10:55:007.7[facility] JHQASWDOUV2581-08-15 10:55:0013.2[facility] JacqkyzLWSROQELUV9593-46-04 10:55:00 4.56[facility] GogkglrRFWTMPBSKQ2888-55-39 10:55:0039.0[facility] HermannHEMATOLOGY 2018-08-27 10:55:0013.4[facility] SgbyxhrGHSVERQOGZ8420-69-98 10:55:0033.9[facility] DckxupoRHASAXJRMU8241-87-80 10:55:00* Test Item Value Reference Range Interpretation Comments MCH (test code = MCH) 28.9 pg 27.0-31.0 [facility] MicoahjUTWIAXYWCP7688-08-93 10:55:98380Zktliorb HermannHEMATOLOGY 2018-08-27 10:55:0085.4[facility] VmanybyNRXVRVPGXE0399-07-21 10:55:008.4[facility] AqoegbzHDGHORVWMZ2314-98-18 10:55:000.9[facility] WogodvsSRAXMBKPNH9404-48-66 10:55:000.5[facility] MqlitylPNJYQKYREK9370-97-38 10:55:000.1[facility] KOZSAAHBWB7179-90-11 10:55:0011.1[facility] QofukmrFDPLTEXXRC8067-36-73 10:55:00 24.6[facility] KvqysipXAQCHSJNBW8717-49-34 10:55:0056.9[facility] HermannHEMATOLOGY 2018-08-27 10:55:001.1[facility] UwpwymaUPMVPXDOXB8198-45-44 10:55:006.3[facility] TcwmtikHNAJNEKSOP6446-98-88 10:55:004.4[facility] ZssrnddYMVJJOJOKK7778-67-03 10:55:001.9[facility] BkfuouwFRRGARYYDK6761-77-21 05:18:00* Test Item Value Reference Range Interpretation Comments Vanco Tr TND (test code = Vanco Tr TND) 0000 1 [facility] JqjmovaLFAMSCJNRJ4440-70-56 05:18:0013.1[facility]annCHEM PANEL 2018-08-26 10:28:001.9[facility]annCHEM ISGQM6703-76-79 10:28:60268Rcttnsvf HermannCHEM UTVSI3989-37-33 10:28:98687Pvzmmqkg HermannCHEM LEAEK3095-13-15 10:28:0027[facility]annCHEM QXYSP5689-04-03 10:28:0012[facility]annCHEM FMAIO7446-34-92 10:28:008.0[facility]annCHEM MUKJT8101-71-24 10:28:004.0 [facility]annCHEM BUZKG8115-99-15 10:28:78652Tzxawdfu HermannCHEM PANEL 2018-08-26 10:28:000.56[facility]annCHEM WONPU8222-23-14 10:28:0089[facility]annCHEM SSJZX9070-50-84 10:28:0011.0[facility] SdhdlzjHMAXZJENLS4823-15-33 10:28:000.8[facility] XwfffbjOYNYZKFCBC5312-15-37 10:28:000.5[facility] AEDADLDIRZ3429-39-24 10:28:000.1[facility] AwleqkoKMDCCWKAFW7383-98-12 10:28:005.7 [facility] EtjkaquENDZDYAZBX8151-38-84 10:28:0023.6[facility]annHEMATOLOGY 2018-08-26 10:28:009.6[facility] KatlohkHZSRMZIURH4866-81-03 10:28:001.0[facility] TpsekicSLLXOYCOAL5923-77-08 10:28:005.2[facility] BufzvodNOYEPQEOLE0429-96-93 10:28:002.1[facility] DlypxbzEKFIRQFYUI5331-23-26 10:28:0060.1[facility] EFWLGIDVYJ2998-68-40 10:28:0013.3[facility] TjqpruwMAIMSBGQUT6654-35-34 10:28:00 228[facility] OsrpmlhHGPZKTAMFS8767-42-56 10:28:0038.0[facility]annHEMATOLOGY 2018-08-26 10:28:004.40[facility] SjzbiqgQDPQSGZTCK1167-61-05 10:28:008.7[facility] OjnnndrLBDQGHZHRX9940-30-88 10:28:0012.9[facility] LmyksbpESXKVTBANN4750-83-21 10:28:00* Test Item Value Reference Range Interpretation Comments MCH (test code = MCH) 29.2 pg 27.0-31.0 [facility] JyifepxECXYUQETZZ3881-36-73 10:28:0086.2[facility]annHEMATOLOGY 2018-08-26 10:28:0033.9[facility] XresdriHGVVKLTDZV0471-67-43 10:28:008.2[facility] TqqjaevCJTASNZWAU8902-76-85 19:34:00* Test Item Value Reference Range Interpretation Comments Vanco Tr TND (test code = Vanco Tr TND) 1330 1 [facility] UzobyfhZHNKAVXMHF8130-87-67 19:34:0015.8[facility] HermannCHEM PANEL 2018-08-25 10:41:003.7[facility] HermannCHEM YEMAL8788-63-01 10:41:00* Test Item Value Reference Range Interpretation Comments B/C Ratio (test code = B/C Ratio) 24 1 6-25 [facility]annCHEM XWFYS4277-81-94 10:41:00* Test Item Value Reference Range Interpretation Comments A/G Ratio (test code = A/G Ratio) 0.8 1 0.7-1.6 [facility]annCHEM GNUFH7288-57-49 10:41:003.6[facility]annCHEM PANEL 2018-08-25 10:41:000.3[facility]annCHEM UQYRF3575-54-85 10:41:0077[facility]annCHEM EPKHX2727-13-18 10:41:0019[facility]annCHEM KLTUJ4063-65-83 10:41:0023[facility]annCHEM FPLSV0126-08-70 10:41:002.8[facility]annCHEM DQJFA5583-75-73 10:41:006.4[facility]annCHEM SBOQH9363-56-40 23:22:00<0.05 [facility]annCHEM PKLWO3687-83-03 23:22:001.1[facility] HermannIMMUNOLOGY 2018-08-24 23:22:00Negative *NA*(1/8/19 5:22 PM)[facility]annCHEM PANEL 2018-08-24 17:20:002.2[facility]annCHEM MMDSP5401-60-88 10:15:007.8[facility]annCHEM VPPQX6468-91-13 10:15:003.8[facility]annCHEM MQMCZ8967-45-39 10:15:0099[facility]annCHEM ILNSM7056-82-33 10:15:000.3[facility]annCHEM KMSZD0901-58-72 10:15:0018[facility]annCHEM GOGZJ7785-89-22 10:15:0021 [facility]annCHEM YLXDJ5540-11-57 10:15:004.0[facility]annCHEM PANEL 2018-08-24 10:15:00* Test Item Value Reference Range Interpretation Comments A/G Ratio (test code = A/G Ratio) 1.0 1 0.7-1.6 [facility]annCHEM BIGTQ5858-08-14 10:15:00* Test Item Value Reference Range Interpretation Comments B/C Ratio (test code = B/C Ratio) 17 1 6-25 [facility] GfrquidLUNLCFZADMGFJ1561-71-60 10:15:00Negative *NA*(08/24/18 4:15 AM) [facility] OsldgpoLSKNSBYWBZ4252-11-54 10:15:00Normal (08/24/18 4:15 AM)[facility] IgyqmcgZLXHNUIXQJ0853-77-98 10:15:00Normal (08/24/18 4:15 AM)[facility] SPECIAL AHOBAPUGT8693-85-34 10:15:005.3[facility] PvtggtgZUZPMTUHOTMD0637-79-41 08:00:0012.2[facility] KvjyqslJXIPYQQDIMSJ4329-15-71 08:00:51836Qivefuiy [facility] OGSLTUULCAUB6417-91-03 08:00:0089[facility] HestchlMPZIFKXGVTZT5694-68-77 08:00:00 4.2[facility] EgtjseiEBIMQNCPVZEO9779-92-00 08:00:39981Zsluwanf [place] KJGLDHTPTHKQ6824-28-17 08:00:000.72[facility] OrlphtyFQSSVBENUZON7461-70-77 08:00:62895Ikbjgutg TyevpxdCRASSLZYUMJH3700-02-70 08:00:009[facility] CXJQLQODGUBC6865-25-89 08:00:0029[facility] UdiewvmTYCKESSLCSOL0867-50-71 08:00:00 8.2[facility] KlpqumePPXUNOSYKE2549-78-10 08:00:000.3[facility] HermannHEMATOLOGY 2018-05-21 08:00:000.8[facility] BetesxmGRLSVUNZNZ3226-54-55 08:00:000.1[facility] AvyzyiuYUPBYFIFXD9717-96-95 08:00:0032.9[facility] NvfljwxKNJMCKDXCF3317-50-41 08:00:0050.8[facility] HccsvbhNUSNADMNBQ5500-60-60 08:00:002.3[facility] [place] VAMMNJFAET5604-99-58 08:00:003.6[facility] MnpwbokJSSYHXJAXS3298-25-56 08:00:000.8 [facility] CvgtgtvNGUOKXIKZW1991-24-29 08:00:004.8[facility]annHEMATOLOGY 2018-05-21 08:00:0010.7[facility] DytqtzpBFVMBUIIMA3038-87-82 08:00:0035.3[facility] TpmcnnbLTEVMOEKUA3214-66-36 08:00:69169Gwespcjk XmhayhsMKQRLFSLUT5271-33-26 08:00:0012.9[facility] QmgvximHSIUKXAVHP7566-32-76 08:00:0085.6[facility] ZYLTOROAMZ1994-17-12 08:00:0034.4[facility] ZyuqfdlLNHPBJYOKT3497-44-46 08:00:00* Test Item Value Reference Range Interpretation Comments MCH (test code = MCH) 29.4 pg 27.0-31.0 [facility] PndzrghFWMNXOYMIY5824-02-70 08:00:008.4[facility]annHEMATOLOGY 2018-05-21 08:00:004.12[facility] YzmbrowEDUNKDYRYE0548-45-04 08:00:007.1[facility] QyumniwLMLEMHFCRK5528-11-76 08:00:0012.1[facility] OrvilvsRRXHCAFKUW2466-32-80 07:31:0015.7[facility] MrlixsbAFIPATKDDR5305-33-39 07:31:00* Test Item Value Reference Range Interpretation Comments Morenita Storey TND (test code = Morenita Storey TND) 0300 1 [facility] ZoyjakhDVRTPACUNOXT1965-84-55 08:22:0010.9[facility] HermannELECTROLYTES 2018-05-20 08:22:55200Hypglqls ApxfxhqHZCRMICZQGCH5460-80-68 08:22:0026[facility] SwkpvdqRITGDJPADLSN2565-15-82 08:22:12207Cwipzuxe EpbmkjrEDWNDVPWIUVY5557-72-17 08:22:71832Kwnvoalf JwisquaYMGVMGNTQPGR2603-84-64 08:22:003.9[facility] DADCTRKZUQIX6555-35-18 08:22:008.0[facility] IjbccmqWSGVYVIGMBQE7912-63-31 08:22:000.59[facility] VfxiktkVJNWLZSLYRWX3133-46-56 08:22:0094[facility] PUNBERKFHXIK4316-54-42 08:22:009[facility] RivmkcdKAGKSQHNFP3245-24-85 08:22:00 55.0[facility] TugxqwdCTGRAGLSDP3668-51-83 08:22:0031.9[facility] HermannHEMATOLOGY 2018-05-20 08:22:002.3[facility] WowvkitOULRUKFHNM5952-32-66 08:22:009.9[facility] GttntkgLFBSCKBBKT7944-66-66 08:22:000.7[facility] XaktnanVWQJQBQZMZ9911-23-73 08:22:002.4[facility] IohujctVCKFNCJPHH6369-19-26 08:22:000.1[facility] EOOELMEYPH7420-50-57 08:22:000.2[facility] VyytcjlSKIHRPQFBD4752-90-37 08:22:004.1 [facility] YehgajzBXLQLBVUGQ7627-45-63 08:22:000.9[facility] HermannHEMATOLOGY 2018-05-20 08:22:00* Test Item Value Reference Range Interpretation Comments MCH (test code = MCH) 29.8 pg 27.0-31.0 [facility] LmxkxbsSRYTVSLUDU6948-18-52 08:22:0086.8[facility] HermannHEMATOLOGY 2018-05-20 08:22:003.85[facility] VqwcptiSTZYQWOGUE5082-15-72 08:22:007.4[facility] PuhwauaTMRDIBEKFW5519-86-94 08:22:0033.4[facility] SafeurgNKWPKWKUTC1089-90-53 08:22:0011.5[facility] IuystzqZMDAMWOCJB2730-32-43 08:22:0012.9[facility] PNCJICURAR1977-34-33 08:22:0034.3[facility] NvmjegfXZMDJASJOO7684-00-48 08:22:00 8.7[facility] RgmsvexQLNARQNMPP4846-48-96 08:22:35434Gfypzwwf HermannELECTROLYTES 2018-05-19 06:30:0014.4[facility] EkumdlkBMOLBYHMRWSB1193-84-97 06:30:91107 [facility] BweksumYHDYEVNPAGZI9284-80-99 06:30:008.2[facility] HermannELECTROLYTES 2018-05-19 06:30:004.4[facility] BdhmdqoXBUDLVGUIPNB1687-74-53 06:30:39707Zqeiqqgi ThzbvzuXTUSUVKPLKHQ5293-90-98 06:30:0025[facility] VaeqrwoMSIPOVNEBZAQ9000-71-84 06:30:22838Bylxvaks CbmvpciNMBMPFMRGJHB7205-01-80 06:30:007[facility] ZLUOVLUEVRFA8657-02-57 06:30:78163Fijhjuun BjjztiaLRHYAJHIDTDL7867-43-58 06:30:000.73[facility] EhvbhmaCJPQOBTRMN7477-94-33 06:30:000.3[facility] BHVGEBPJOZ6102-79-80 06:30:000.1[facility] LpmuzlxLTANOQLIMU1878-37-13 06:30:00 83.5[facility] UhvhbtnSQXFQSTAPZ6029-47-14 06:30:009.1[facility] HermannHEMATOLOGY 2018-05-19 06:30:007.0[facility] DwpagckARRBZYIPCK8207-32-13 06:30:008.9[facility] GawxmnsNVVYVGHHFI6193-19-47 06:30:000.7[facility] EpbxhkbLSCDUPQIAZ6089-22-15 06:30:001.0[facility] PurklsiXNJPZMIWBU8996-15-05 06:30:008.4[facility] ZEJYFAQFKO7852-30-53 06:30:78963Ohmsvtls PyfuqqxWSEDSKSIMV4906-62-41 06:30:00 12.8[facility] LcsfvznVTPKCADZLT7139-00-25 06:30:0033.2[facility] HermannHEMATOLOGY 2018-05-19 06:30:0010.6[facility] XaffsrdCLAMEQOLWF3099-39-98 06:30:0088.3[facility] WudyzfzXFTNFDNEVQ1772-11-08 06:30:0038.9[facility] NufmflpGBNKPBWNOM1810-22-55 06:30:004.41[facility] DoqtofiVYVNMGPGJW2038-60-56 06:30:00* Test Item Value Reference Range Interpretation Comments MCH (test code = MCH) 29.3 pg 27.0-31.0 [facility] DmwfkhuMJLZDOSRTQ7763-15-48 06:30:0012.9[facility] HermannTOXICOLOGY 2018-05-19 06:30:00* Test Item Value Reference Range Interpretation Comments Morenita SANCHEZD (test code = Morenita Storey TND) 0200 1 [facility] AzfmfvxWFRLKZDAIT6553-62-74 06:30:006.6[facility] HermannTOXICOLOGY 2018-05-18 20:36:0027.1[facility] AMPICILLIN+SULBACTAM:SUSC:PT:ISOLATE:ORDQN:VKH1220-96-77 18:30:00Staphylococcus aureusMemorial HermannCHEM ATCNY1163-62-47 08:51:001.9[facility] HermannCHEM PANEL 2018-05-17 08:51:00* Test Item Value Reference Range Interpretation Comments B/C Ratio (test code = B/C Ratio) 16 1 6-25 [facility] HermannCHEM BJZRP6312-77-60 08:51:007.0[facility] HermannCHEM PANEL 2018-05-17 08:51:004.0[facility] HermannCHEM MKISE8276-72-12 08:51:003.0[facility] HermannCHEM YADWN7947-44-07 08:51:0011[facility] HermannCHEM HBCVS6307-41-08 08:51:000.4[facility] HermannCHEM TXIKV4860-33-06 08:51:0066[facility] HermannCHEM UZAKW5307-55-71 08:51:0019[facility] HermannCHEM GYYMP6514-40-07 08:51:00* Test Item Value Reference Range Interpretation Comments A/G Ratio (test code = A/G Ratio) 0.8 1 0.7-1.6 [facility] HospitalVotgutrUVKOYEUKUT2817-59-64 08:51:00* Test Item Value Reference Range Interpretation Comments INR (test code = INR) 1.14 1 0.85-1.17 [facility] HospitalGnayuzdSTYATJCLVB4292-20-90 08:51:00* Test Item Value Reference Range Interpretation Comments PT (test code = PT) 14.6 s 12.0-14.7 [facility] HospitalPhcxwbnTYPLHOUYGM2846-01-41 08:51:00* Test Item Value Reference Range Interpretation Comments PTT (test code = PTT) 36.4 s 22.9-35.8 [facility] HospitalIysitusHXOJCMBXSC2212-00-16 08:51:000.1[facility]annHEMATOLOGY 2018-05-17 08:51:000.3[facility] HermannCHEM CIMTK9515-58-12 06:46:001.3[facility] HermannCHEM WQNYX4359-75-28 05:24:004.1[facility] HermannCHEM KCPHN8503-23-69 05:24:00* Test Item Value Reference Range Interpretation Comments A/G Ratio (test code = A/G Ratio) 0.8 1 0.7-1.6 [facility]annCHEM XHDOD8174-71-53 05:24:00* Test Item Value Reference Range Interpretation Comments B/C Ratio (test code = B/C Ratio) 13 1 6-25 [facility] HermannCHEM WBOZH8621-28-37 05:24:0021[facility] HermannCHEM PANEL 2018-05-17 05:24:0014[facility] HermannCHEM EEUSG0512-55-30 05:24:0071[facility] HermannCHEM GGYDO3212-73-12 05:24:000.2[facility] HermannCHEM HHKXO3743-71-14 05:24:003.2[facility] HermannCHEM WOWHO8845-36-86 05:24:007.3[facility] GIHRLJVMROFOH5841-06-96 05:24:00Negative *NA*(05/17/18 12:24 AM)[facility] CT ABDOMEN/PELVIS Y8684-38-74 19:32:00 [place] [address] Patient Name: COLLEEN JOHNSON MR #: [id number] : 1985 Age/Sex: 32/F Req #: [id number] Adm Physician: Ordered by: FELICIA DELGADO MD Report #: [id number] Location: ER Room/Bed: Procedure: CT/CT ABDOMEN/PELVIS W Exam Date: 02/07/18 Exam Time: [address] ATUS: Signed EXAM: CT ABDOMEN/PELVIS W DATE: 02/07/2018 5:04 PM INDICATI ON: Abdominal pain COMPARISON: None TECHNIQUE: The abdomen and pelvis wer e scanned using a multidetector helical scanner. Coronal and sagittal reformat ions were obtained. Routine protocol performed. IV Contrast: 100 ml Isovue 3 00/370 FINDINGS: Image quality is mildly degraded by noise related to bod y habitus. LOWER THORAX: No consolidations. Partially imaged medial right lung cyst or bullae. LIVER/BILIARY: No masses. No ductal dilatation. G ALLBLADDER: Surgically absent SPLEEN: Unremarkable PANCREAS: Unremarkable ADRENALS: No nodules KIDNEYS: Symmetric perfusion. No enhancing masses. No hydronephrosis. GI TRACT: No wall thickening or evidence of obstruction. Mo derate stool burden is noted. Normal appendix. VESSELS: Unremarkable PE RITONEUM/RETROPERITONEUM: No free air or fluid LYMPH NODES: No lymphadenopathy REPRODUCTIVE ORGANS/BLADDER: Unremarkable SOFT TISSUES: Tiny fat-cont aining umbilical hernia BONES: Scattered degenerative changes are seen about t he spine. IMPRESSION: No acute abnormality in the abdomen or pelvis. Signed by: Dr Mary Avelar MD on 02/07/2018 7:35 PM Dictated By: MARY AVELAR MD 34 Tra nscribed By: LILIA on 02/07/181934 COPY TO: FELICIA DELGADO MD Urine Ywztgil0681-74-51 15:50:00* Test Item Value Reference Range Interpretation Comments Urine Clarity (test code = 60481-4) CLOUDY CLEAR H [facility] HJC1088-24-29 15:50:00* Test Item Value Reference Range Interpretation Comments Urine WBC (test code = 5821-4) NONE 0-5 [facility] ORY3706-17-88 15:50:00* Test Item Value Reference Range Interpretation Comments Urine RBC (test code = 43263-8) 0-5 0-5 [facility] Ebhfzynl7106-29-92 15:50:00* Test Item Value Reference Range Interpretation Comments Urine Bacteria (test code = 87063-2) RARE NONE [facility] Center[facility] Epithelial Zshfs7983-12-01 15:50:00 * Test Item Value Reference Range Interpretation Comments Urine Epithelial Cells (test code = 98219-2) RARE NONE [facility] Center[facility] Amorphous Zapbnopo2659-86-89 15:50:00* Test Item Value Reference Range Interpretation Comments Urine Amorphous Sediment (test code = 8246-1) MANY FEW H [facility] CenterUrine Gmuwaei5082-86-49 15:50:00* Test Item Value Reference Range Interpretation Comments Urine Clarity (test code = 07996-5) CLOUDY CLEAR H [facility] CenterU[facility] RLL0035-47-22 15:50:00* Test Item Value Reference Range Interpretation Comments Urine WBC (test code = 5821-4) NONE 0-5 [facility] CIY1361-32-01 15:50:00* Test Item Value Reference Range Interpretation Comments Urine RBC (test code = 37215-0) 0-5 0-5 [facility] Cgufkkzv5486-40-72 15:50:00* Test Item Value Reference Range Interpretation Comments Urine Bacteria (test code = 39103-2) RARE NONE [facility] Center[facility] Epithelial Zcyvl0676-21-38 15:50:00 * Test Item Value Reference Range Interpretation Comments Urine Epithelial Cells (test code = 32607-2) RARE NONE [facility] CenterU[facility] Amorphous Taazreaf8766-48-21 15:50:00* Test Item Value Reference Range Interpretation Comments Urine Amorphous Sediment (test code = 8246-1) MANY FEW H [facility] Vzizt0420-71-39 15:44:00* Test Item Value Reference Range Interpretation Comments Sodium Level (test code = 2951-2) 139 136-145 [facility] CenterPotassium Nkdos6965-64-03 15:44:00* Test Item Value Reference Range Interpretation Comments Potassium Level (test code = 2823-3) 3.6 3.5-5.1 [facility] CenterChloride Jjelp4178-61-19 15:44:00* Test Item Value Reference Range Interpretation Comments Chloride Level (test code = 2075-0) 107 98-107 [facility] CenterCarbon Dioxide Ppvki8043-72-06 15:44:00* Test Item Value Reference Range Interpretation Comments Carbon Dioxide Level (test code = 2028-9) 24 22-29 [facility] CenterAnion Dwk0765-22-12 15:44:00* Test Item Value Reference Range Interpretation Comments Anion Gap (test code = 43033-7) 11.6 8-16 [facility] CenterBlood Urea Gzlvmtks8378-40-00 15:44:00* Test Item Value Reference Range Interpretation Comments Blood Urea Nitrogen (test code = 3094-0) 15 7-26 [facility] CenterCreatinine2018-06-24 15:44:00* Test Item Value Reference Range Interpretation Comments Creatinine (test code = 2160-0) 0.78 0.57-1.11 [facility] CenterBUN/Creatinine Wpadf5244-72-80 15:44:00* Test Item Value Reference Range Interpretation Comments BUN/Creatinine Ratio (test code = 3097-3) 19 6-25 [facility] CenterEstimat Glomerular Filtration Rate 2018-02-07 15:44:00* Test Item Value Reference Range Interpretation Comments Estimat Glomerular Filtration Rate (test code = 31256-4) 60- >60 Ranges were taken from the National Kidney Disease Education Program and the [facility] [employer] literature.Reference ranges:60 or greater: Lrbfit68-35 ( for 3 consecutive months): Chronic kidney disease 15 or less: Kidney failureCovenant Medical CenterGlucose Kzqxb1867-34-91 15:44:00* Test Item Value Reference Range Interpretation Comments Glucose Level (test code = DNE9000) 95 74-118 [facility] CenterCalcium Awudf5878-36-54 15:44:00* Test Item Value Reference Range Interpretation Comments Calcium Level (test code = 65188-7) 8.9 8.4-10.2 [facility] CenterTotal Kgdbglpsq2325-39-93 15:44:00* Test Item Value Reference Range Interpretation Comments Total Bilirubin (test code = 1975-2) 0.4 0.2-1.2 [facility] CenterAspartate Amino Transf (AST/SGOT) 2018-02-07 15:44:00* Test Item Value Reference Range Interpretation Comments Aspartate Amino Transf (AST/SGOT) (test code = Aspartate Amino Transf (AST/SGOT)) 29 5-34 [facility] CenterAlanine Aminotransferase (ALT/SGPT) 2018-02-07 15:44:00* Test Item Value Reference Range Interpretation Comments Alanine Aminotransferase (ALT/SGPT) (test code = 1742-6) 55 0-55 [facility] CenterTotal Srwxsvg9883-39-45 15:44:00* Test Item Value Reference Range Interpretation Comments Total Protein (test code = 2885-2) 6.8 6.5-8.1 [facility] CenterAlbumin2018-06-24 15:44:00* Test Item Value Reference Range Interpretation Comments Albumin (test code = 1751-7) 3.5 3.5-5.0 [facility] CenterGlobulin2018-06-24 15:44:00* Test Item Value Reference Range Interpretation Comments Globulin (test code = 13805-0) 3.3 2.3-3.5 [facility] CenterAlbumin/Globulin Mxfzf6823-57-95 15:44:00 * Test Item Value Reference Range Interpretation Comments Albumin/Globulin Ratio (test code = 1759-0) 1.1 0.8-2.0 [facility] CenterAlkaline Pbxnclmzeow9556-39-47 15:44:00* Test Item Value Reference Range Interpretation Comments Alkaline Phosphatase (test code = 6768-6) 62 40-150 [facility]odium Tmhjw9191-46-05 15:44:00* Test Item Value Reference Range Interpretation Comments Sodium Level (test code = 2951-2) 139 136-145 [facility] CenterPotassium Itgbt6539-72-26 15:44:00* Test Item Value Reference Range Interpretation Comments Potassium Level (test code = 2823-3) 3.6 3.5-5.1 [facility] CenterChloride Cmbbd7001-94-98 15:44:00* Test Item Value Reference Range Interpretation Comments Chloride Level (test code = 2075-0) 107 98-107 [facility] CenterCarbon Dioxide Vhaeh1440-23-15 15:44:00* Test Item Value Reference Range Interpretation Comments Carbon Dioxide Level (test code = 2028-9) 24 22-29 [facility] CenterAnion Ree6468-05-27 15:44:00* Test Item Value Reference Range Interpretation Comments Anion Gap (test code = 40925-7) 11.6 8-16 [facility] CenterBlood Urea Itgwpwlz7035-78-62 15:44:00* Test Item Value Reference Range Interpretation Comments Blood Urea Nitrogen (test code = 3094-0) 15 7-26 [facility] CenterCreatinine2018-06-24 15:44:00* Test Item Value Reference Range Interpretation Comments Creatinine (test code = 2160-0) 0.78 0.57-1.11 [facility] CenterBUN/Creatinine Hhbsk9996-76-41 15:44:00* Test Item Value Reference Range Interpretation Comments BUN/Creatinine Ratio (test code = 3097-3) 19 6-25 [facility] CenterEstimat Glomerular Filtration Rate 2018-02-07 15:44:00* Test Item Value Reference Range Interpretation Comments Estimat Glomerular Filtration Rate (test code = 55451-6) 60- >60 Ranges were taken from the National Kidney Disease Education Program and the [place] [facility] [employer] literature.Reference ranges:60 or greater: Oyawxb85-90 ( for 3 consecutive months): Chronic kidney disease 15 or less: Kidney failureCovenant Medical CenterGlucose Lljai7633-02-59 15:44:00* Test Item Value Reference Range Interpretation Comments Glucose Level (test code = IJG9206) 95 74-118 [facility] CenterCalcium Bjisp2243-93-67 15:44:00* Test Item Value Reference Range Interpretation Comments Calcium Level (test code = 47125-8) 8.9 8.4-10.2 [facility] CenterTotal Lgcmorxue9471-44-85 15:44:00* Test Item Value Reference Range Interpretation Comments Total Bilirubin (test code = 1975-2) 0.4 0.2-1.2 [facility] CenterAspartate Amino Transf (AST/SGOT) 2018-02-07 15:44:00* Test Item Value Reference Range Interpretation Comments Aspartate Amino Transf (AST/SGOT) (test code = Aspartate Amino Transf (AST/SGOT)) 29 5-34 [facility] CenterAlanine Aminotransferase (ALT/SGPT) 2018-02-07 15:44:00* Test Item Value Reference Range Interpretation Comments Alanine Aminotransferase (ALT/SGPT) (test code = 1742-6) 55 0-55 [facility] CenterTotal Mwclpvg0819-38-15 15:44:00* Test Item Value Reference Range Interpretation Comments Total Protein (test code = 2885-2) 6.8 6.5-8.1 [facility] CenterAlbumin2018-06-24 15:44:00* Test Item Value Reference Range Interpretation Comments Albumin (test code = 1751-7) 3.5 3.5-5.0 [facility] CenterGlobulin2018-06-24 15:44:00* Test Item Value Reference Range Interpretation Comments Globulin (test code = 78211-7) 3.3 2.3-3.5 [facility] CenterAlbumin/Globulin Suafu3685-94-34 15:44:00 * Test Item Value Reference Range Interpretation Comments Albumin/Globulin Ratio (test code = 1759-0) 1.1 0.8-2.0 [facility] CenterAlkaline Oyebsrixcul4055-51-35 15:44:00* Test Item Value Reference Range Interpretation Comments Alkaline Phosphatase (test code = 6768-6) 62 40-150 [facility] Chorionic Gonadotropin, Qual 2018-02-07 15:37:00* Test Item Value Reference Range Interpretation Comments Human Chorionic Gonadotropin, Qual (test code = 2118-8) NEGATIVE NEGATIVE [facility] Chorionic Gonadotropin, Qual 2018-02-07 15:37:00* Test Item Value Reference Range Interpretation Comments Human Chorionic Gonadotropin, Qual (test code = 2118-8) NEGATIVE NEGATIVE [facility] CenterUrine Nyyja9087-71-57 15:35:00* Test Item Value Reference Range Interpretation Comments Urine Color (test code = 5778-6) YELLOW YELLOW [facility] CenterUrine Specific Zvodxnk6065-32-88 15:35:00 * Test Item Value Reference Range Interpretation Comments Urine Specific [place] (test code = 5811-5) 1.030 1.010-1.02 5 H [facility] CenterUrine bG8764-83-17 15:35:00* Test Item Value Reference Range Interpretation Comments Urine pH (test code = 54061-0) 6 5-7 [facility] CenterUrine Leukocyte Jeotxlts7280-70-87 15:35:00* Test Item Value Reference Range Interpretation Comments Urine Leukocyte Esterase (test code = 5799-2) NEGATIVE NEGATIVE [facility] CenterUrine Bdhnbdc1051-05-03 15:35:00* Test Item Value Reference Range Interpretation Comments Urine Nitrite (test code = 43721-4) NEGATIVE NEGATIVE [facility] CenterUrine Fenhpog4253-63-22 15:35:00* Test Item Value Reference Range Interpretation Comments Urine Protein (test code = 5804-0) 1+ NEGATIVE H [facility] CenterUrine Glucose (UA)2018-02-07 15:35:00* Test Item Value Reference Range Interpretation Comments Urine Glucose (UA) (test code = 2349-9) NEGATIVE NEGATIVE [facility] CenterUrine Ybugmhi6943-63-26 15:35:00* Test Item Value Reference Range Interpretation Comments Urine Ketones (test code = 62891-3) 1+ NEGATIVE H [facility] Gwqaqwoaslym4737-54-17 15:35:00* Test Item Value Reference Range Interpretation Comments Urine Urobilinogen (test code = 53055-8) 0.2 0.2-1 [facility] CenterUrine Ztaqjqayj5390-96-40 15:35:00* Test Item Value Reference Range Interpretation Comments Urine Bilirubin (test code = 1978-6) 1+ NEGATIVE H [facility] CenterUrine Druql1804-40-47 15:35:00* Test Item Value Reference Range Interpretation Comments Urine Blood (test code = 90303-5) 1+ NEGATIVE H [facility] CenterUrine Epyjk4312-33-27 15:35:00* Test Item Value Reference Range Interpretation Comments Urine Color (test code = 5778-6) YELLOW YELLOW [facility] CenterUrine Specific Unlppcg9655-45-21 15:35:00 * Test Item Value Reference Range Interpretation Comments Urine Specific [place] (test code = 5811-5) 1.030 1.010-1.02 5 H [facility] CenterUrine vO0056-18-38 15:35:00* Test Item Value Reference Range Interpretation Comments Urine pH (test code = 25541-9) 6 5-7 [facility] CenterUrine Leukocyte Teljoqie2403-14-29 15:35:00* Test Item Value Reference Range Interpretation Comments Urine Leukocyte Esterase (test code = 5799-2) NEGATIVE NEGATIVE [facility] CenterUrine Ejtnteh3832-51-73 15:35:00* Test Item Value Reference Range Interpretation Comments Urine Nitrite (test code = 95894-8) NEGATIVE NEGATIVE [facility] CenterUrine Nutnqal2657-71-07 15:35:00* Test Item Value Reference Range Interpretation Comments Urine Protein (test code = 5804-0) 1+ NEGATIVE H [facility] CenterUrine Glucose (UA)2018-02-07 15:35:00* Test Item Value Reference Range Interpretation Comments Urine Glucose (UA) (test code = 2349-9) NEGATIVE NEGATIVE [facility] CenterUrine Ilisvfb0750-49-64 15:35:00* Test Item Value Reference Range Interpretation Comments Urine Ketones (test code = 82544-7) 1+ NEGATIVE H [facility] CenterUrine Wdiwbbqigiyu0372-44-83 15:35:00* Test Item Value Reference Range Interpretation Comments Urine Urobilinogen (test code = 41296-4) 0.2 0.2-1 [facility] CenterUrine Rczwlekry4144-04-69 15:35:00* Test Item Value Reference Range Interpretation Comments Urine Bilirubin (test code = 1978-6) 1+ NEGATIVE H [facility] CenterUrine Ywrdc6042-77-35 15:35:00* Test Item Value Reference Range Interpretation Comments Urine Blood (test code = 36877-1) 1+ NEGATIVE H [facility] CenterWhite Blood Tkopm1059-16-64 15:21:00* Test Item Value Reference Range Interpretation Comments White Blood Count (test code = 6690-2) 8.40 4.8-10.8 [facility] CenterRed Blood Ijaqx3807-50-62 15:21:00* Test Item Value Reference Range Interpretation Comments Red Blood Count (test code = 789-8) 4.67 3.6-5.1 [facility] CenterHemoglobin2018-06-24 15:21:00* Test Item Value Reference Range Interpretation Comments Hemoglobin (test code = 44445-4) 13.8 12.0-16.0 [facility] CenterHematocrit2018-06-24 15:21:00* Test Item Value Reference Range Interpretation Comments Hematocrit (test code = 4544-3) 41.0 34.2-44.1 [facility] CenterMean Corpuscular Hdnuug6800-25-51 15:21:00* Test Item Value Reference Range Interpretation Comments Mean Corpuscular Volume (test code = 787-2) 87.8 81-99 [facility] CenterMean Corpuscular Udbsinxndh0161-47-14 15:21:00* Test Item Value Reference Range Interpretation Comments Mean Corpuscular Hemoglobin (test code = 785-6) 29.6 28-32 [facility] CenterMean Corpuscular Hemoglobin Concent 2018-02-07 15:21:00* Test Item Value Reference Range Interpretation Comments Mean Corpuscular Hemoglobin Concent (test code = 786-4) 33.7 31-35 [facility] CenterRed Cell Distribution Oddjh9435-88-65 15:21:00* Test Item Value Reference Range Interpretation Comments Red Cell Distribution Width (test code = 44028-9) 12.7 11.7 -14.4 [facility] CenterPlatelet Leuzd7238-44-47 15:21:00* Test Item Value Reference Range Interpretation Comments Platelet Count (test code = 777-3) 229 140-360 [facility] CenterNeutrophils (%) (Auto)2018-02-07 15:21:00 * Test Item Value Reference Range Interpretation Comments Neutrophils (%) (Auto) (test code = 83687-1) 68.1 38.7-80.0 [facility] CenterLymphocytes (%) (Auto)2018-02-07 15:21:00 * Test Item Value Reference Range Interpretation Comments Lymphocytes (%) (Auto) (test code = 736-9) 20.1 18.0-39.1 [facility] CenterMonocytes (%) (Auto)2018-02-07 15:21:00* Test Item Value Reference Range Interpretation Comments Monocytes (%) (Auto) (test code = 5905-5) 7.6 4.4-11.3 [facility] CenterEosinophils (%) (Auto)2018-02-07 15:21:00 * Test Item Value Reference Range Interpretation Comments Eosinophils (%) (Auto) (test code = 713-8) 3.6 0.0-6.0 [facility] CenterBasophils (%) (Auto)2018-02-07 15:21:00* Test Item Value Reference Range Interpretation Comments Basophils (%) (Auto) (test code = 706-2) 0.2 0.0-1.0 [facility] CenterIM GRANULOCYTES %2018-02-07 15:21:00* Test Item Value Reference Range Interpretation Comments IM GRANULOCYTES % (test code = IM GRANULOCYTES %) 0.4 0.0- 1.0 [facility] CenterNeutrophils # (Auto)2018-02-07 15:21:00* Test Item Value Reference Range Interpretation Comments Neutrophils # (Auto) (test code = 751-8) 5.7 2.1-6.9 [facility] CenterLymphocytes # (Auto)2018-02-07 15:21:00* Test Item Value Reference Range Interpretation Comments Lymphocytes # (Auto) (test code = 53019-7) 1.7 1.0-3.2 [facility] CenterMonocytes # (Auto)2018-02-07 15:21:00* Test Item Value Reference Range Interpretation Comments Monocytes # (Auto) (test code = 742-7) 0.6 0.2-0.8 [facility] CenterEosinophils # (Auto)2018-02-07 15:21:00* Test Item Value Reference Range Interpretation Comments Eosinophils # (Auto) (test code = 711-2) 0.3 0.0-0.4 [facility] CenterBasophils # (Auto)2018-02-07 15:21:00* Test Item Value Reference Range Interpretation Comments Basophils # (Auto) (test code = 704-7) 0.0 0.0-0.1 [facility] CenterAbsolute Immature Granulocyte (auto 2018-02-07 15:21:00* Test Item Value Reference Range Interpretation Comments Absolute Immature Granulocyte (auto (tristan t code = Absolute Immature Granulocyte (auto) 0.03 0-0.1 [facility] CenterWhite Blood Rqoor3582-76-57 15:21:00* Test Item Value Reference Range Interpretation Comments White Blood Count (test code = 6690-2) 8.40 4.8-10.8 [facility] CenterRed Blood Ljsgi7720-86-80 15:21:00* Test Item Value Reference Range Interpretation Comments Red Blood Count (test code = 789-8) 4.67 3.6-5.1 [facility] CenterHemoglobin2018-06-24 15:21:00* Test Item Value Reference Range Interpretation Comments Hemoglobin (test code = 39500-7) 13.8 12.0-16.0 [facility] CenterHematocrit2018-06-24 15:21:00* Test Item Value Reference Range Interpretation Comments Hematocrit (test code = 4544-3) 41.0 34.2-44.1 [facility] CenterMean Corpuscular Ocybxr7451-26-35 15:21:00* Test Item Value Reference Range Interpretation Comments Mean Corpuscular Volume (test code = 787-2) 87.8 81-99 [facility] CenterMean Corpuscular Eoilekvmca0513-65-46 15:21:00* Test Item Value Reference Range Interpretation Comments Mean Corpuscular Hemoglobin (test code = 785-6) 29.6 28-32 [facility] CenterMean Corpuscular Hemoglobin Concent 2018-02-07 15:21:00* Test Item Value Reference Range Interpretation Comments Mean Corpuscular Hemoglobin Concent (test code = 786-4) 33.7 31-35 [facility] CenterRed Cell Distribution Avtet7092-29-91 15:21:00* Test Item Value Reference Range Interpretation Comments Red Cell Distribution Width (test code = 93307-9) 12.7 11.7 -14.4 [facility] CenterPlatelet Nbaxx8519-54-86 15:21:00* Test Item Value Reference Range Interpretation Comments Platelet Count (test code = 777-3) 229 140-360 [facility] CenterNeutrophils (%) (Auto)2018-02-07 15:21:00 * Test Item Value Reference Range Interpretation Comments Neutrophils (%) (Auto) (test code = 97195-9) 68.1 38.7-80.0 [facility] CenterLymphocytes (%) (Auto)2018-02-07 15:21:00 * Test Item Value Reference Range Interpretation Comments Lymphocytes (%) (Auto) (test code = 736-9) 20.1 18.0-39.1 [facility] CenterMonocytes (%) (Auto)2018-02-07 15:21:00* Test Item Value Reference Range Interpretation Comments Monocytes (%) (Auto) (test code = 5905-5) 7.6 4.4-11.3 [facility] CenterEosinophils (%) (Auto)2018-02-07 15:21:00 * Test Item Value Reference Range Interpretation Comments Eosinophils (%) (Auto) (test code = 713-8) 3.6 0.0-6.0 [facility] CenterBasophils (%) (Auto)2018-02-07 15:21:00* Test Item Value Reference Range Interpretation Comments Basophils (%) (Auto) (test code = 706-2) 0.2 0.0-1.0 [facility] CenterIM GRANULOCYTES %2018-02-07 15:21:00* Test Item Value Reference Range Interpretation Comments IM GRANULOCYTES % (test code = IM GRANULOCYTES %) 0.4 0.0- 1.0 [facility] CenterNeutrophils # (Auto)2018-02-07 15:21:00* Test Item Value Reference Range Interpretation Comments Neutrophils # (Auto) (test code = 751-8) 5.7 2.1-6.9 [facility] CenterLymphocytes # (Auto)2018-02-07 15:21:00* Test Item Value Reference Range Interpretation Comments Lymphocytes # (Auto) (test code = 89391-5) 1.7 1.0-3.2 [facility] CenterMonocytes # (Auto)2018-02-07 15:21:00* Test Item Value Reference Range Interpretation Comments Monocytes # (Auto) (test code = 742-7) 0.6 0.2-0.8 [facility] CenterEosinophils # (Auto)2018-02-07 15:21:00* Test Item Value Reference Range Interpretation Comments Eosinophils # (Auto) (test code = 711-2) 0.3 0.0-0.4 [facility] CenterBasophils # (Auto)2018-02-07 15:21:00* Test Item Value Reference Range Interpretation Comments Basophils # (Auto) (test code = 704-7) 0.0 0.0-0.1 [facility] CenterAbsolute Immature Granulocyte (auto 2018-02-07 15:21:00* Test Item Value Reference Range Interpretation Comments Absolute Immature Granulocyte (auto (tristan t code = Absolute Immature Granulocyte (auto) 0.03 0-0.1 [facility] CenterUrine XGE1176-20-65 00:12:00* Test Item Value Reference Range Interpretation Comments Urine WBC (test code = 5821-4) 6-10 0-5 H [facility] CenterUrine YHV7871-35-92 00:12:00* Test Item Value Reference Range Interpretation Comments Urine RBC (test code = 63610-6) 11-20 0-5 H [facility] CenterUrine Olistitl1548-94-26 00:12:00* Test Item Value Reference Range Interpretation Comments Urine Bacteria (test code = 29857-6) MANY NONE H [facility] CenterUrine Epithelial Vnche5674-95-74 00:12:00 * Test Item Value Reference Range Interpretation Comments Urine Epithelial Cells (test code = 95759-5) FEW NONE [facility] CenterUrine Transitional Epithelial Cells 2018-02-05 00:12:00* Test Item Value Reference Range Interpretation Comments Urine Transitional Epithelial Cells (test code = 8249-5) FEW NONE [facility] Mfwjz6924-97-93 00:12:00* Test Item Value Reference Range Interpretation Comments Sodium Level (test code = 2951-2) 138 136-145 [facility] CenterPotassium Rmadm1888-41-38 00:12:00* Test Item Value Reference Range Interpretation Comments Potassium Level (test code = 2823-3) 3.8 3.5-5.1 [facility] CenterChloride Pebme5222-72-65 00:12:00* Test Item Value Reference Range Interpretation Comments Chloride Level (test code = 2075-0) 105 98-107 [facility] CenterCarbon Dioxide Xaigc4740-23-03 00:12:00* Test Item Value Reference Range Interpretation Comments Carbon Dioxide Level (test code = 2028-9) 21 22-29 L [facility] CenterAnion Lnz0707-34-38 00:12:00* Test Item Value Reference Range Interpretation Comments Anion Gap (test code = 62892-6) 15.8 8-16 [facility] CenterBlood Urea Szgsaaep1842-71-23 00:12:00* Test Item Value Reference Range Interpretation Comments Blood Urea Nitrogen (test code = 3094-0) 16 7-26 [facility] CenterCreatinine2018-06-22 00:12:00* Test Item Value Reference Range Interpretation Comments Creatinine (test code = 2160-0) 0.64 0.57-1.11 [facility] CenterBUN/Creatinine Ygkmp3219-64-53 00:12:00* Test Item Value Reference Range Interpretation Comments BUN/Creatinine Ratio (test code = 3097-3) 25 6-25 [facility] CenterEstimat Glomerular Filtration Rate 2018-02-05 00:12:00* Test Item Value Reference Range Interpretation Comments Estimat Glomerular Filtration Rate (test code = 88343-1) 60- >60 Ranges were taken from the National Kidney Disease Education Program and the [facility] [employer] literature.Reference ranges:60 or greater: Vhzlpj39-40 ( for 3 consecutive months): Chronic kidney disease 15 or less: Kidney failureCovenant Medical CenterGlucose Ycqto7732-07-13 00:12:00* Test Item Value Reference Range Interpretation Comments Glucose Level (test code = RWL6415) 94 74-118 [facility] CenterCalcium Fakze2384-87-91 00:12:00* Test Item Value Reference Range Interpretation Comments Calcium Level (test code = 07810-9) 9.0 8.4-10.2 [facility] CenterTotal Wootemnol9459-66-42 00:12:00* Test Item Value Reference Range Interpretation Comments Total Bilirubin (test code = 1975-2) 1.0 0.2-1.2 [facility] CenterAspartate Amino Transf (AST/SGOT) 2018-02-05 00:12:00* Test Item Value Reference Range Interpretation Comments Aspartate Amino Transf (AST/SGOT) (test code = Aspartate Amino Transf (AST/SGOT)) 26 5-34 [facility] CenterAlanine Aminotransferase (ALT/SGPT) 2018-02-05 00:12:00* Test Item Value Reference Range Interpretation Comments Alanine Aminotransferase (ALT/SGPT) (test code = 1742-6) 30 0-55 [facility] CenterTotal Hiiqddt9459-28-24 00:12:00* Test Item Value Reference Range Interpretation Comments Total Protein (test code = 2885-2) 7.2 6.5-8.1 [facility] CenterAlbumin2018-06-22 00:12:00* Test Item Value Reference Range Interpretation Comments Albumin (test code = 1751-7) 3.7 3.5-5.0 [facility] CenterGlobulin2018-06-22 00:12:00* Test Item Value Reference Range Interpretation Comments Globulin (test code = 89246-4) 3.5 2.3-3.5 [facility] CenterAlbumin/Globulin Dhvhb6195-90-02 00:12:00 * Test Item Value Reference Range Interpretation Comments Albumin/Globulin Ratio (test code = 1759-0) 1.1 0.8-2.0 [facility] CenterAlkaline Qxoxngezaok2398-81-65 00:12:00* Test Item Value Reference Range Interpretation Comments Alkaline Phosphatase (test code = 6768-6) 72 40-150 [facility] CenterUrine Transitional Epithelial Cells 2018-02-05 00:12:00* Test Item Value Reference Range Interpretation Comments Urine Transitional Epithelial Cells (test code = 8249-5) FEW NONE H [facility] CenterUrine Transitional Epithelial Cells 2018-02-05 00:12:00* Test Item Value Reference Range Interpretation Comments Urine Transitional Epithelial Cells (test code = 8249-5) FEW NONE H [facility] CenterWhite Blood Nxthr6622-49-43 00:00:00* Test Item Value Reference Range Interpretation Comments White Blood Count (test code = 6690-2) 8.91 4.8-10.8 [facility] CenterRed Blood Wwmnd9566-39-53 00:00:00* Test Item Value Reference Range Interpretation Comments Red Blood Count (test code = 789-8) 4.80 3.6-5.1 [facility] CenterHemoglobin2018-06-22 00:00:00* Test Item Value Reference Range Interpretation Comments Hemoglobin (test code = 92140-9) 14.4 12.0-16.0 [facility] CenterHematocrit2018-06-22 00:00:00* Test Item Value Reference Range Interpretation Comments Hematocrit (test code = 4544-3) 41.8 34.2-44.1 [facility] CenterMean Corpuscular Qseilx3709-22-25 00:00:00* Test Item Value Reference Range Interpretation Comments Mean Corpuscular Volume (test code = 787-2) 87.1 81-99 [facility] CenterMean Corpuscular Alpcpujiab0609-62-76 00:00:00* Test Item Value Reference Range Interpretation Comments Mean Corpuscular Hemoglobin (test code = 785-6) 30.0 28-32 [facility] CenterMean Corpuscular Hemoglobin Concent 2018-02-05 00:00:00* Test Item Value Reference Range Interpretation Comments Mean Corpuscular Hemoglobin Concent (test code = 786-4) 34.4 31-35 [facility] CenterRed Cell Distribution Wvwlr2419-58-62 00:00:00* Test Item Value Reference Range Interpretation Comments Red Cell Distribution Width (test code = 84537-9) 12.4 11.7 -14.4 [facility] CenterPlatelet Hcvcq3926-25-15 00:00:00* Test Item Value Reference Range Interpretation Comments Platelet Count (test code = 777-3) 236 140-360 [facility] CenterNeutrophils (%) (Auto)2018-02-05 00:00:00 * Test Item Value Reference Range Interpretation Comments Neutrophils (%) (Auto) (test code = 45986-1) 84.6 38.7-80.0 H [facility] CenterLymphocytes (%) (Auto)2018-02-05 00:00:00 * Test Item Value Reference Range Interpretation Comments Lymphocytes (%) (Auto) (test code = 736-9) 7.2 18.0-39.1 L [facility] CenterMonocytes (%) (Auto)2018-02-05 00:00:00* Test Item Value Reference Range Interpretation Comments Monocytes (%) (Auto) (test code = 5905-5) 6.2 4.4-11.3 [facility] CenterEosinophils (%) (Auto)2018-02-05 00:00:00 * Test Item Value Reference Range Interpretation Comments Eosinophils (%) (Auto) (test code = 713-8) 1.5 0.0-6.0 [facility] CenterBasophils (%) (Auto)2018-02-05 00:00:00* Test Item Value Reference Range Interpretation Comments Basophils (%) (Auto) (test code = 706-2) 0.2 0.0-1.0 [facility] CenterIM GRANULOCYTES %2018-02-05 00:00:00* Test Item Value Reference Range Interpretation Comments IM GRANULOCYTES % (test code = IM GRANULOCYTES %) 0.3 0.0- 1.0 [facility] CenterNeutrophils # (Auto)2018-02-05 00:00:00* Test Item Value Reference Range Interpretation Comments Neutrophils # (Auto) (test code = 751-8) 7.5 2.1-6.9 H [facility] CenterLymphocytes # (Auto)2018-02-05 00:00:00* Test Item Value Reference Range Interpretation Comments Lymphocytes # (Auto) (test code = 45848-9) 0.6 1.0-3.2 L [facility] CenterMonocytes # (Auto)2018-02-05 00:00:00* Test Item Value Reference Range Interpretation Comments Monocytes # (Auto) (test code = 742-7) 0.6 0.2-0.8 [facility] CenterEosinophils # (Auto)2018-02-05 00:00:00* Test Item Value Reference Range Interpretation Comments Eosinophils # (Auto) (test code = 711-2) 0.1 0.0-0.4 [facility] CenterBasophils # (Auto)2018-02-05 00:00:00* Test Item Value Reference Range Interpretation Comments Basophils # (Auto) (test code = 704-7) 0.0 0.0-0.1 [facility] CenterAbsolute Immature Granulocyte (auto 2018-02-05 00:00:00* Test Item Value Reference Range Interpretation Comments Absolute Immature Granulocyte (auto (tristan t code = Absolute Immature Granulocyte (auto) 0.03 0-0.1 [facility] CenterUrine Djmxp2537-23-63 23:55:00* Test Item Value Reference Range Interpretation Comments Urine Color (test code = 5778-6) YELLOW YELLOW [facility] CenterUrine Gcsdohb0724-94-97 23:55:00* Test Item Value Reference Range Interpretation Comments Urine Clarity (test code = 32341-9) CLEAR CLEAR [facility] CenterUrine Specific Qjhfwsk6679-95-55 23:55:00 * Test Item Value Reference Range Interpretation Comments Urine Specific [place] (test code = 5811-5) 1.025 1.010-1.02 5 [facility] CenterUrine bX8761-88-92 23:55:00* Test Item Value Reference Range Interpretation Comments Urine pH (test code = 19805-8) 6 5-7 [facility] CenterUrine Leukocyte Rkrvojht7708-22-30 23:55:00* Test Item Value Reference Range Interpretation Comments Urine Leukocyte Esterase (test code = 5799-2) NEGATIVE NEGATIVE [facility] CenterUrine Cwsaptl8304-13-98 23:55:00* Test Item Value Reference Range Interpretation Comments Urine Nitrite (test code = 01025-0) NEGATIVE NEGATIVE [facility] CenterUrine Rotcvgf0326-84-83 23:55:00* Test Item Value Reference Range Interpretation Comments Urine Protein (test code = 5804-0) TRACE NEGATIVE H [facility] CenterUrine Glucose (UA)2018-02-04 23:55:00* Test Item Value Reference Range Interpretation Comments Urine Glucose (UA) (test code = 2349-9) NEGATIVE NEGATIVE [facility] CenterUrine Pbrofjn3197-64-62 23:55:00* Test Item Value Reference Range Interpretation Comments Urine Ketones (test code = 13144-5) 3+ NEGATIVE H [facility] Odxnbnewtimm5936-15-84 23:55:00* Test Item Value Reference Range Interpretation Comments Urine Urobilinogen (test code = 66717-9) 0.2 0.2-1 [facility] CenterUrine Oxswmfbps2572-44-39 23:55:00* Test Item Value Reference Range Interpretation Comments Urine Bilirubin (test code = 1978-6) 1+ NEGATIVE H [facility] CenterUrine Pierb7273-26-15 23:55:00* Test Item Value Reference Range Interpretation Comments Urine Blood (test code = 36008-3) 4+ NEGATIVE H [facility] CenterUrine Flvv7938-04-61 23:54:00* Test Item Value Reference Range Interpretation Comments Urine Test (test code = 2106-3) NEGATIVE NEGATIVE [facility] CenterUrine Mmzj4826-90-44 23:54:00* Test Item Value Reference Range Interpretation Comments Urine Test (test code = 2106-3) NEGATIVE NEGATIVE [facility] CenterUrine Osib8000-23-68 23:54:00* Test Item Value Reference Range Interpretation Comments Urine Test (test code = 2106-3) NEGATIVE NEGATIVE [facility] CenterCARDIAC KICHJRE2623-66-07 21:58:00<0.02 [facility]CHE[facility] SFGLY6184-62-78 21:58:00* Test Item Value Reference Range Interpretation Comments A/G Ratio (test code = A/G Ratio) 1.0 1 0.7-1.6 [facility]annCHEM FMFLV2598-44-52 21:58:00* Test Item Value Reference Range Interpretation Comments B/C Ratio (test code = B/C Ratio) 13 1 6-25 [facility]annCHE[facility] WRCPL3251-27-10 21:58:003.5[facility]annCHEM PANEL 2018-01-12 21:58:0012.2[facility]annCHEM WTKAM8330-61-25 21:58:26239Pcplbdmz HermannCHEM FXUPX7179-25-31 21:58:0076[facility]annCHEM UZSFS5403-03-99 21:58:0039[facility]annCHE[facility] TMNFE3726-73-93 21:58:0038[facility]annCHE[facility] NDJPT0876-44-86 21:58:000.7[facility]annCHEM SVARV6129-16-00 21:58:0093 [facility]CHE[facility] AOBYM5890-32-25 21:58:000.78[facility]annCHEM PANEL 2018-01-12 21:58:0010[facility]annCHEM NLBBR6694-20-64 21:58:16151Rpynhbtk HermannCHEM WYHPQ8890-61-64 21:58:008.3[facility]annCHEM EZBJP0601-93-07 21:58:007.0[facility]annCHEM LGVRY7258-13-29 21:58:003.5[facility]annCHEM ONRVN7902-89-53 21:58:0024[facility]annCHEM TJGLD7797-84-27 21:58:81580 [facility]CHE[facility] STKOE0546-26-21 21:58:004.2[facility]annENDOCRINOLOGY 2018-01-12 21:58:00Negative *NA*(01/12/18 4:58 PM)[facility]annHEMATOLOGY 2018-01-12 21:58:002.4[facility] OxstxgaXYYPUKSCCQ1550-15-06 21:58:000.9[facility] RvgvvpwXVKCTFYUCE7655-88-26 21:58:006.6[facility] VgvxzslZWSWMESSBJ6941-61-95 21:58:005.1[facility] QcpkxudEDPLZMKHFH0259-66-03 21:58:0022.9[facility] VJNETNPHLC7317-91-30 21:58:000.8[facility] BokbvvmNXQCCAFVOM6275-46-41 21:58:008.8 [facility] OiclglfUYGLOTNZZG7257-75-47 21:58:0062.4[facility]annHEMATOLOGY 2018-01-12 21:58:000.5[facility] CqrhrbyJTVIFBOKSA3911-32-01 21:58:000.1[facility] BsttvfiDXWJKHIFCV0035-26-47 21:58:009.0[facility] TomzhfrPOUCFHLKLK3877-32-87 21:58:004.80[facility] IqmhrvkCQDDSYVIZO0879-44-49 21:58:0010.6[facility] QNMAUPSHSC4265-93-53 21:58:0014.2[facility] OpchvekPIMPUTLDEO3717-28-24 21:58:00 227[facility] JnzywiiKJGBJHLANV9733-91-35 21:58:0012.7[facility]annHEMATOLOGY 2018-01-12 21:58:0033.4[facility] FcpsmiuSQYNESIGVC1494-65-61 21:58:0088.3[facility] GrgjyjmYORUQOTNNJ1300-20-70 21:58:0042.4[facility] MfpytykHAHEOEDCCQ7658-96-95 21:58:00* Test Item Value Reference Range Interpretation Comments MCH (test code = MCH) 29.5 pg 27.0-31.0 [facility]annCHEM IBCGP5584-17-23 05:53:95883Xpjetnir HermannCHEM PANEL 2016-12-31 05:53:0086[facility]annCHEM QALPS1768-86-60 05:53:53371Xrhztped [facility]annCHEM RNRHY2834-57-11 05:53:009[facility]annCHEM RXFHO6281-81-25 05:53:000.74[facility]annCHEM GJWYP3647-89-64 05:53:007.1[facility]annCHEM AUSSQ5110-31-46 05:53:0025[facility]annCHEM VHLMP3620-03-22 05:53:008.7 [facility]CHE[facility] PBKCQ7284-06-99 05:53:003.8[facility]annCHEM PANEL 2016-12-31 05:53:39998Mjtlixdw [facility]annCHEM CEYHZ9369-25-67 05:53:0013[facility]annCHEM LWMAJ1902-57-57 05:53:0083[facility]annCHEM HTKHY6955-91-74 05:53:003.5[facility]annCHEM SVXYZ8660-10-34 05:53:0022[facility]annCHE[facility] IUUCQ9168-67-25 05:53:000.4[facility]annCHEM VVDGJ7842-00-48 05:53:0012 [facility]CHE[facility] HDQCJ1752-70-55 05:53:003.6[facility]annCHEM PANEL 2016-12-31 05:53:001.0[facility]annCHEM AZXFG6023-55-65 05:53:0011.8[facility]annCHEM AJVMN6638-15-11 05:53:65866Dcqhxkfc EibtcvnUHIIVPROMPVTW7622-64-70 05:53:00Negative *NA*(12/31/16 12:53 AM)[facility] MezymzqYZPXLDUKZG7674-75-06 05:53:0053.9[facility] BqjrzdeWBIDYCDLGR9683-78-56 05:53:004.9[facility] LMLLAEIZRS3078-65-30 05:53:001.2[facility] DamrbukVYQQOPPRPA8837-99-82 05:53:005.0 [facility] GghgqmjORJHATDVNQ9778-49-47 05:53:0031.8[facility]annHEMATOLOGY 2016-12-31 05:53:008.2[facility] MoxqtwpTOQSXJMXOQ9703-34-71 05:53:000.1[facility] XyumkdaBBBJADTZIG3042-30-20 05:53:003.0[facility] VypvasxTRTOSJQHYN3052-21-83 05:53:000.8[facility] SvgjhruDRZWDSUVXZ6492-92-85 05:53:000.5[facility] MZMUNVXTGZ4855-72-81 05:53:009.6[facility] QfcsvmaOBFLWSWPVY9577-94-43 05:53:00 33.1[facility] VrbbquyANTXKYCRFO4377-83-95 05:53:0012.4[facility]annHEMATOLOGY 2016-12-31 05:53:09654Kpgymnnc HexvydcTCFPHDEIUU5156-45-96 05:53:0089.8[facility] PzsrbowEPXIUDLOYF6261-63-86 05:53:00* Test Item Value Reference Range Interpretation Comments MCH (test code = MCH) 29.7 pg 27.0-31.0 [facility] KtufdovSYOHQHUBCI9918-53-89 05:53:0045.3[facility]annHEMATOLOGY 2016-12-31 05:53:009.3[facility] QruskeuAZOAPCCOZI1037-59-02 05:53:005.04[facility] PkozjskKFQWBAXYHE5628-14-74 05:53:0015.0[facility]annURINE AND STOOL 2016-12-31 05:53:0033[facility]annURINE AND ZHONK1139-10-66 05:53:0027 [facility] AND EMMEQ2325-31-16 05:53:00Trace *ABN*(12/31/16 12:53 AM) [facility] NIPOB3486-40-63 05:53:00Large *ABN*(12/31/16 12:53 AM) [facility] HJOTM1882-75-04 05:53:00Moderate *ABN*(12/31/16 12:53 AM)[facility] AND EHSDN0891-12-67 05:53:00Amber *ABN*(12/31/16 12:53 AM)[facility] AND IKRHP0226-83-41 05:53:00Positive *ABN*(12/31/16 12:53 AM)[facility] AND ZPPOQ9429-70-57 05:53:002.0[facility] URINE AND YRXHN7300-71-49 05:53:00Trace *ABN*(12/31/16 12:53 AM)[facility] URINE AND IPLXS5563-52-36 05:53:00Cloudy *ABN*(12/31/16 12:53 AM)[facility] URINE AND BFZXT5569-04-14 05:53:00* Test Item Value Reference Range Interpretation Comments UA Spec Grav (test code = UA Spec Grav) 1.025 1 [facility] AND AMFKF2092-53-51 05:53:00* Test Item Value Reference Range Interpretation Comments UA pH (test code = UA pH) 6.5 1 5.0-8.0 [facility] AND FAUHE4174-18-98 05:53:00Negative (12/31/16 12:53 AM) [facility]annCHEM ZLUNU7482-26-91 20:32:54686Tfmbablh HermannCHEM PANEL 2016-12-25 20:32:0096[facility]annCHEM VFAFG7466-60-58 20:32:003.9[facility]annCHEM GORIG9062-01-90 20:32:0025[facility]annCHEM UXDCD4646-71-58 20:32:000.9[facility]annCHEM ZKIDY0265-13-50 20:32:0016[facility]annCHEM KWECM7169-97-53 20:32:0094[facility]annCHEM FADFT5551-76-52 20:32:000.82 [facility]annCHEM LGPRH9495-08-06 20:32:0012[facility]annCHEM PANEL 2016-12-25 20:32:92254Kpxtaueq HermannCHEM SZFCH9565-21-46 20:32:11322Tijamenv HermannCHEM MDQJV6873-38-59 20:32:003.8[facility]annCHEM SNVKF4346-38-16 20:32:007.9[facility]annCHEM NXYJG7037-95-68 20:32:008.8[facility]annCHEM RQALC3447-91-26 20:32:0024[facility]annCHEM ADGVF6908-13-90 20:32:0082 [facility]CHE[facility] DTLPX0755-71-92 20:32:0013.8[facility]annCHEM PANEL 2016-12-25 20:32:0015[facility]annCHEM LNQFD8754-71-94 20:32:001.0[facility]annCHEM DNWDN9999-47-33 20:32:004.0[facility] MsfemtbRXEFNASECR6481-10-81 20:32:00* Test Item Value Reference Range Interpretation Comments PTT (test code = PTT) 32.0 s 22.9-35.8 [facility] DnxgsilSBKBELFSCN2717-35-30 20:32:001.10[facility]annHEMATOLOGY 2016-12-25 20:32:00* Test Item Value Reference Range Interpretation Comments PT (test code = PT) 14.4 s 12.0-14.7 [facility] GrcqzegQHGEKZXLGJ1509-78-08 20:32:0015.1[facility]annHEMATOLOGY 2016-12-25 20:32:0045.6[facility] XubdpeeJIQSFCYFXD6614-05-34 20:32:0089.9[facility] AvdrdhmSPTTLUNTKB8722-69-71 20:32:00* Test Item Value Reference Range Interpretation Comments MCH (test code = MCH) 29.8 pg 27.0-31.0 [facility] HblbutdDBAGTGQSQZ2704-78-41 20:32:0010.7[facility] HermannHEMATOLOGY 2016-12-25 20:32:005.08[facility] IujpulhFQFFAVDJXH7720-42-01 20:32:0033.2[facility] DgojyawCCGILDRBYU2004-19-73 20:32:0012.7[facility] TucdceyGYAZMPNUSM9292-25-02 20:32:009.3[facility] HdexdmzLOOTEDIOXH2433-33-35 20:32:39750Bsnxamgh [place] QYKGTERKHM2420-79-70 20:32:001.9[facility] AxbuvvdSINPWAEPUJ6155-33-66 20:32:000.7 [facility] VpmdbseBLEUHQZIQE6959-08-60 20:32:006.7[facility]annHEMATOLOGY 2016-12-25 20:32:002.5[facility] TgqkthiCEUSRDKTZI2087-81-42 20:32:000.7[facility] QlalfjaVSOXIXNEPG2230-42-13 20:32:007.2[facility] PybqeuqLZHSYFFSEA6723-34-49 20:32:000.2[facility] DrgdtvpHCOUEXCXYY2566-88-11 20:32:000.1[facility] KEVUTTAIVR9988-64-84 20:32:0067.6[facility] FsdovxyGUXANXOKUE7885-55-67 20:32:00 23.1[facility] HermannCHEM CAYSD4177-32-16 01:59:98703Bssidqfb HermannCHEM PANEL 2016-07-20 01:59:001.0[facility]annCHEM IMQTH3252-21-91 01:59:003.9[facility]annCHEM GXMSS1833-49-74 01:59:0010[facility]annCHEM LPEJG3618-22-70 01:59:0013.0[facility]annCHEM QWRRC7749-13-17 01:59:0018[facility]annCHEM OCGIQ9885-90-17 01:59:0024[facility]annCHEM FQUOY9497-30-33 01:59:62468 [facility]annCHE[facility] ZKDCO0577-65-60 01:59:003.9[facility] HermannCHEM PANEL 2016-07-20 01:59:007.8[facility]annCHEM JNUJW1709-92-10 01:59:008.7[facility]annCHEM JQZTV2385-38-09 01:59:000.3[facility]annCHEM YKUTR6451-68-05 01:59:0079[facility]annCHEM UCOUE7333-05-50 01:59:000.70[facility]annCHEM JLFSC4617-41-38 01:59:007[facility]annCHEM DVXNG8250-21-50 01:59:0028[facility]annCHEM NPVZL5674-32-26 01:59:97173Lobzvpck HermannCHEM YTQZB5728-33-10 01:59:004.0[facility]annCHEM WCNBN4171-23-00 01:59:16876Neewjxoy HermannCHEM TXQDD5939-18-60 01:59:0084[facility] MfjojhgEHNUXOAVOT5002-70-89 01:59:0012.6 [facility] ZipbtvaQPJITZBZPH6477-84-09 01:59:87987Kbzuaeam HermannHEMATOLOGY 2016-07-20 01:59:0015.3[facility] OsigwlmEAMKLVMBUW2251-87-02 01:59:005.08[facility] BquvdfyKQBNMQYUQN7781-47-25 01:59:0010.8[facility] DksuffbGFWIAENKXD4169-18-82 01:59:008.9[facility] CkfehtaXMYCBOSUVU5059-89-61 01:59:0088.5[facility] VZWCZGNLUS5314-93-62 01:59:0044.9[facility] DyimrkiIUXAFVCQDB8321-25-43 01:59:00* Test Item Value Reference Range Interpretation Comments MCH (test code = MCH) 30.1 pg 27.0-31.0 [facility] RhdghdtMAIRYXETQX2627-77-44 01:59:0034.0[facility] HermannHEMATOLOGY 2016-07-20 01:59:000.6[facility] EztiiexOZILKOXUGF7249-62-58 01:59:000.1[facility] GtyyuusIAKKJTAIMI3353-93-23 01:59:002.6[facility] AmylwllEEUUGHRMZH2323-91-18 01:59:000.5[facility] NfserbtAHIMOJRLXE4488-15-81 01:59:007.0[facility] KQIPBFXCNB3175-76-99 01:59:005.6[facility] MfdwvtiTXQJUSGOWJ8136-31-31 01:59:000.9 [facility] EklncpsYFYABUQAIO9107-76-62 01:59:004.6[facility] HermannHEMATOLOGY 2016-07-20 01:59:0065.0[facility] YdeqluxJITEESPZYZ7315-76-50 01:59:0023.9[facility] PDKCP6109-30-88 01:59:008.0[facility] STOOL 2016-07-20 01:59:00Clear (07/19/16 7:59 PM)[facility] ST[facility]OL 2016-07-20 01:59:001.005[facility] REVGZ1282-28-54 01:59:00 Negative (07/19/16 7:59 PM)[facility] XPJWS3838-78-65 01:59:00 Small *ABN*(07/19/16 7:59 PM)[facility] EYLMH2184-05-38 01:59:00 Negative (07/19/16 7:59 PM)[facility] SRKBL1045-24-84 01:59:00 Negative *NA*(07/19/16 7:59 PM)[facility] RBKLW0003-73-92 01:59:00 <1[facility] TGXML7343-30-96 01:59:001[facility] CHEM 2016-07-20 01:59:00Negative (07/19/16 7:59 PM)[facility]annCHEM PANEL 2016-04-14 06:13:000.66[facility]annCHEM WQNPO5873-65-71 06:13:003.7[facility]annCHEM WRPGI7594-18-08 06:13:05703Iejgczvl HermannCHEM XYWOK3445-29-47 06:13:0087[facility]annCHEM XVCWR6778-15-88 06:13:0013[facility]annCHEM KHOGY1424-05-93 06:13:77442Pyxkxhuf HermannCHEM VPRIB0855-19-70 06:13:0022 [facility]annCHE[facility] WZVSP0777-18-29 06:13:003.8[facility]annCHEM PANEL 2016-04-14 06:13:0026[facility]annCHEM WGGPG3045-98-88 06:13:82895Kuryneri HermannCHEM DDRCO6025-04-60 06:13:000.3[facility]annCHEM AFAOD9226-62-80 06:13:0072[facility]annCHEM ERYGD4044-39-53 06:13:0013[facility]annCHEM QLWZW3724-74-02 06:13:007.4[facility]annCHEM TBVYR5381-48-25 06:13:008.3 [facility]annCHE[facility] URTSK2447-15-43 06:13:003.6[facility]annCHEM PANEL 2016-04-14 06:13:001.1[facility]annCHEM VTQUX0684-07-07 06:13:0020[facility]annCHEM MAQSE0088-50-56 06:13:008.7[facility]annCHEM BRMOH5203-15-39 06:13:04418Fbuoppvl HermannCHEM SBVWX2236-08-10 06:13:0045[facility] PDGKLQJVZT6360-60-51 06:13:00* Test Item Value Reference Range Interpretation Comments MCH (test code = MCH) 29.2 pg 27.0-31.0 [facility] SmoqtiuOGVBSUYXJB7436-63-22 06:13:0087.0[facility] HermannHEMATOLOGY 2016-04-14 06:13:0040.7[facility] IolbacbZZKWGOSYSZ9726-56-80 06:13:0013.6[facility] RvcevvuDYEFPIFYPU1654-16-64 06:13:004.67[facility] BkbhfngOYTABNBDLH3289-90-59 06:13:008.6[facility] TvjejssMHOHXDBJED4489-37-45 06:13:87323Bmxwbtfm [facility] JQCHOAAXRO2224-50-31 06:13:0033.6[facility] QadeuloZROLISDXAA5638-47-07 06:13:00 13.0[facility] LhfrrayHUWFQMNOHW4328-23-52 06:13:0011.2[facility] HermannHEMATOLOGY 2016-04-14 06:13:000.9[facility] YygygvkRZBSXMZXZB0917-77-68 06:13:003.3[facility] XqqtwzlACZXGMNGTI7852-96-68 06:13:006.3[facility] MxuwuirUFVFLEZSLD8019-51-92 06:13:000.8[facility] ZlpjgmqTYEGAYTIYE9470-01-04 06:13:005.9[facility] NTJBGAKZVY8236-75-43 06:13:008.2[facility] FejkztwANGUSPGSFV2700-54-72 06:13:00 29.1[facility] ZoufkeiGQWCPKVMJI7649-59-55 06:13:0056.0[facility] HermannHEMATOLOGY 2016-04-14 06:13:000.1[facility] KzinhjaOXMFXEITOK0203-98-68 06:13:000.7[facility] QTMWQ6542-05-23 06:13:00Large *ABN*(04/14/16 1:13 AM)[facility] NSLTM5801-89-00 06:13:00Negative *NA*(04/14/16 1:13 AM)[facility] IAGOG2763-60-52 06:13:005.0[facility] STOOL 2016-04-14 06:13:001.020[facility] EMPJW0536-96-87 06:13:00Slight *ABN*(04/14/16 1:13 AM)[facility] YNMJS4213-95-04 06:13:00 Negative (04/14/16 1:13 AM)[facility] SDPPO7268-78-11 06:13:007 [facility] RPRQB7093-30-40 06:13:003[facility] PSJWO8382-41-70 06:13:00Trace *ABN*(04/14/16 1:13 AM)[facility] WDPFI7482-63-40 06:13:00Yellow *NA*(04/14/16 1:13 AM)[facility] CHEM 2016-04-14 06:13:00Negative (04/14/16 1:13 AM)[facility] STOOL 2016-02-24 05:51:007[facility] JRCMT4944-74-32 05:51:00Negative *NA*(02/24/16 12:51 AM)[facility] EUXMP0391-47-90 05:51:00Trace *ABN*(02/24/16 12:51 AM)[facility] CKKXQ2026-13-16 05:51:002.0 [facility] SWGIU3787-85-88 05:51:00Negative (02/24/16 12:51 AM) [facility] AMUUH3260-03-33 05:51:00Small *ABN*(02/24/16 12:51 AM) [facility] DSCUJ8174-11-16 05:51:008[facility] JHHAP0414-19-60 05:51:00Clear (02/24/16 12:51 AM)[facility] STOOL 2016-02-24 05:51:001.027[facility] DRNFW9105-55-66 05:51:007.0 [facility] GWAO3660-38-13 05:51:00Negative (02/24/16 12:51 AM)[facility]annCHEM VQYYJ8235-84-14 04:28:0081[facility]annCHEM GSHAS9668-75-60 04:28:0032[facility]annCHEM VFCEB9067-18-03 04:28:0024[facility]annCHEM PKKJQ4735-45-73 04:28:21514Oxcvizms HermannCHEM DEPVS1877-09-53 04:28:000.6 [facility]annCHEM BNJXV5497-56-30 04:28:000.74[facility]annCHEM PANEL 2016-02-24 04:28:0010[facility]annCHEM NNUPC4585-42-07 04:28:0087[facility]annCHEM CBHCJ9080-65-85 04:28:00See Note 1(02/23/16 11:28 PM)[facility] CHEM JPWRF6750-88-01 04:28:42673Jfexylhc HermannCHEM BQICE7544-19-25 04:28:008.8 [facility]annCHEM ANCAP1167-22-20 04:28:0026[facility]annCHEM PANEL 2016-02-24 04:28:00447Fbevlquq HermannCHEM ZMYAX8763-32-06 04:28:0014[facility] HermannCHEM PORTH4774-59-03 04:28:008.0[facility]annCHEM GRIIF0536-25-65 04:28:000.9[facility]annCHEM YTOCY3823-08-16 04:28:004.2[facility]annCHEM MPFSB3952-92-66 04:28:003.8[facility]annCHEM UDPIE1678-51-33 04:28:56306 [facility]annCHEM RWFFH1251-71-32 04:28:0045[facility]annHEMATOLOGY 2016-02-24 04:28:0044.3[facility] OsoojnmDEXTGCRJXH3193-09-64 04:28:0014.4[facility] QwfltueMVFPEAVKFT5694-14-77 04:28:004.96[facility] AmqhunqZIQEEJXLVB6346-05-64 04:28:0012.3[facility] PpaaifqNJYFPMBDWD4349-58-41 04:28:0089.3[facility] HAPHBZASBE7786-38-74 04:28:42043Ddpuhkgq BlxgopiYJGVFISJWI9842-45-12 04:28:00 13.1[facility] ZmjvkksRUJSBBBRMK5493-56-18 04:28:0032.4[facility]annHEMATOLOGY 2016-02-24 04:28:00* Test Item Value Reference Range Interpretation Comments MCH (test code = MCH) 29.0 pg 27.0-31.0 [facility] KzrmgoaVLTNOKJPAH1838-89-82 04:28:008.7[facility] HermannHEMATOLOGY 2016-02-24 04:28:0062.1[facility] QqisljrSCGKSQJOQD4156-71-06 04:28:000.8[facility] EgakzvcLZNNTYVWRM6346-93-21 04:28:004.6[facility] LfxrnoxRWFDNKZMIS1666-21-57 04:28:007.6[facility] PubqdzrRMSGYRTCZM6250-05-66 04:28:0024.9[facility] MIFDWBRFWB8093-26-79 04:28:007.7[facility] TewnorsKUANAGGCPO3115-26-97 04:28:000.6 [facility] QcnjthvWLMUDPRALA5597-21-07 04:28:003.1[facility] HermannHEMATOLOGY 2016-02-24 04:28:000.1[facility] GsklvjrGVVFDNLNQY6066-61-78 04:28:000.9[facility] HermannCHEM KWXZO1288-00-72 02:50:97550Xsvplzqp HermannCHEM OPWRD5790-62-90 02:50:004.1[facility]annCHEM ZTUEY9868-93-53 02:50:000.9[facility]annCHEM AIRIP1120-76-25 02:50:0011.0[facility]annCHEM SGKSH9839-66-78 02:50:0011 [facility]annCHEM MBROO9566-05-90 02:50:03221Rfpzgmnn HermannCHEM PANEL 2016-01-17 02:50:007.9[facility] HermannCHEM QOLBL3809-14-74 02:50:0016[facility]annCHEM EYMRZ9989-03-84 02:50:000.4[facility]annCHEM APYZQ1537-99-26 02:50:004.0[facility]annCHEM RNBHO8343-68-08 02:50:0027[facility]annCHEM WNXAE6134-56-50 02:50:29826Ejajacra HermannCHEM HSMLE0879-85-70 02:50:008.5 [facility]annCHEM DUQVZ7426-56-89 02:50:97556Omwaeleq HermannCHEM PANEL 2016-01-17 02:50:0084[facility]annCHEM SSKGC1474-25-86 02:50:0088[facility]annCHEM BBBET1404-80-31 02:50:000.66[facility]annCHEM XTAMH2564-16-78 02:50:007[facility]annCHEM FZCRT1355-75-80 02:50:003.8[facility]annCHEM SNUDR1014-77-89 02:50:0027[facility] OeelqsnUFFNMTDDNZ4441-74-81 02:50:006.4 [facility] YrbomfvXJSRUMSAYC1001-42-22 02:50:002.4[facility] HermannHEMATOLOGY 2016-01-17 02:50:000.6[facility] DzxegckFKYEFDINYC0075-17-90 02:50:000.4[facility] QkccnutMNCFNPIGJM9462-48-43 02:50:000.1[facility] GvbkhquTGWRXMRWRH6772-41-66 02:50:006.3[facility] UkktflaATIPYMZOKC4384-63-84 02:50:004.5[facility] FENIODNPRO3333-77-21 02:50:000.9[facility] XouxaznRETBZVPOVW4171-70-00 02:50:00 24.2[facility] BockkqsGGNDDGDDRL3490-56-79 02:50:0064.1[facility] HermannHEMATOLOGY 2016-01-17 02:50:008.4[facility] TnfuzkiFTCGIBXDQB4817-70-55 02:50:0089.2[facility] TtcoddhFHOZYMWGWM1586-54-82 02:50:00* Test Item Value Reference Range Interpretation Comments MCH (test code = MCH) 29.7 pg 27.0-31.0 [facility] FpgewshJZTEBLXAHK9272-21-05 02:50:0033.3[facility] HermannHEMATOLOGY 2016-01-17 02:50:0013.2[facility] LpvccxgZGZHGWZABY0734-68-13 02:50:0014.9[facility] YvnwrgaSSWHQJXHYJ1053-50-99 02:50:0044.7[facility] UbnqpktTMRJXGQIFU7595-49-36 02:50:005.01[facility] FuczkotLLRROZBPXK9691-28-90 02:50:77401Dgpixypp [facility] QXWRLJFYAT2997-30-17 02:50:0010.0[facility] RMLVB9477-30-92 02:15:00Negative (01/16/16 9:15 PM)[facility] FJCVH0257-44-93 02:15:00Negative (01/16/16 9:15 PM)[facility] COOZD5148-54-36 02:15:00* Test Item Value Reference Range Interpretation Comments UA Spec Grav (test code = UA Spec Grav) 1.015 1 [facility] SKKTH0402-11-49 02:15:00* Test Item Value Reference Range Interpretation Comments UA pH (test code = UA pH) 7.5 1 5.0-8.0 [facility] NNCVJ5508-52-17 02:15:00Negative (01/16/16 9:15 PM) [facility] CTFBX0297-65-08 02:15:00Clear (01/16/16 9:15 PM)[facility] AZQWV8336-33-12 02:15:00Yellow *NA*(01/16/16 9:15 PM)[facility] UVCQI5227-56-17 02:15:000.2[facility] STOOL 2016-01-17 02:15:00Negative (01/16/16 9:15 PM)[facility] STOOL 2016-01-17 02:15:00Large *ABN*(01/16/16 9:15 PM)[facility] STOOL 2016-01-17 02:15:00Negative *NA*(01/16/16 9:15 PM)[facility] STOOL 2016-01-17 02:15:00Negative *NA*(01/16/16 9:15 PM)[facility] CHEM 2016-01-17 02:15:00Negative (01/16/16 9:15 PM)[facility] STOOL 2015-10-13 09:42:00Slight *ABN*(10/13/15 3:42 AM)[facility] STOOL 2015-10-13 09:42:001.026[facility] ZUVUP9580-61-63 09:42:006.0 [facility] OZANU8616-67-51 09:42:007[facility] PXHWJ0968-61-79 09:42:006[facility] FPPUH9299-44-23 09:42:00 Negative (10/13/15 3:42 AM)[facility] WGWVL9142-02-78 09:42:00 Negative (10/13/15 3:42 AM)[facility] HKYSQ3524-56-79 09:42:00 Large *ABN*(10/13/15 3:42 AM)[facility] AVOLA4096-14-20 09:42:00 Negative *NA*(10/13/15 3:42 AM)[facility] AVFP6570-86-89 09:42:00 Negative (10/13/15 3:42 AM)[facility]annCHEM ZEVWL1145-09-98 08:33:003.9 [facility]annCHEM FROVT5951-31-22 08:33:001.0[facility]annCHEM PANEL 2015-10-13 08:33:0013[facility]annCHEM XRQQG0563-64-27 08:33:009.5[facility]annCHEM SXHTL5451-51-20 08:33:96366Scnyduox HermannCHEM MZQDF9139-68-31 08:33:000.7[facility]annCHEM QFFYW2345-48-02 08:33:0079[facility]annCHEM XWIHD2431-99-63 08:33:0023[facility]annCHEM URJNV6915-81-11 08:33:0035 [facility]annCHE[facility] FIGTK6454-85-36 08:33:003.8[facility]annCHEM PANEL 2015-10-13 08:33:007.7[facility]annCHEM YWRVN4553-25-36 08:33:008.8[facility]annCHEM XRLSH9706-39-77 08:33:0028[facility]annCHEM FMGXP2210-36-83 08:33:32035Jzdaooir HermannCHEM HZEYN7451-35-21 08:33:003.5[facility]annCHEM YAAUK5937-25-22 08:33:000.70[facility]annCHEM CDJNQ7414-05-54 08:33:009 [facility]annCHEM ZWWGK9853-99-40 08:33:0094[facility]annCHEM PANEL 2015-10-13 08:33:69964Qzqhvnuf HermannCHEM AWEYJ6336-36-73 08:33:0050[facility]annCHEM VDDXI9390-82-79 08:33:37086Cipxdofe OzabcqqTDSFYEEAPZ3348-26-01 08:33:95552Cjqyjhpe LctnubaAHLLUXZXTN3826-64-78 08:33:009.7[facility] UUYSIJSTZF4728-70-57 08:33:0033.4[facility] EbxppbjGOQNIJZFSN8090-25-48 08:33:00 12.5[facility] AaagzeiYLIDEIQICY5978-18-03 08:33:009.9[facility] HermannHEMATOLOGY 2015-10-13 08:33:005.04[facility] ExvuebzGOBVZFWJJR4120-16-32 08:33:0015.1[facility] XvsqhuiYTOYMRLKAE1953-52-09 08:33:00* Test Item Value Reference Range Interpretation Comments MCH (test code = MCH) 29.9 pg 27.0-31.0 [facility] DalioeuCDZUHSXZFD0106-23-09 08:33:0045.2[facility]annHEMATOLOGY 2015-10-13 08:33:0089.7[facility] AnepkwyZWRHPSUOFP5699-18-38 08:33:000.6[facility] GcnxzvsGCXZWDUENP0670-98-61 08:33:000.1[facility] CvhioieLPMVVPKLMC9968-76-57 08:33:003.2[facility] EqhuilxUTHUOAAXMW9166-52-37 08:33:000.8[facility] PNBQARJLMH2871-29-19 08:33:005.1[facility] IusyclvXYBMVOMPZN2248-23-18 08:33:001.0 [facility] GtuimyqOBYXTAZABQ1455-38-63 08:33:008.5[facility]annHEMATOLOGY 2015-10-13 08:33:006.2[facility] UnueydjHEEUXMYAEG2638-27-92 08:33:0051.7[facility] UkhnersNENCVMCPNC1649-95-79 08:33:0032.6[facility] KtumenoPNIDEVLEQLTR1697-60-84 08:31:003.6[facility] HermannCHEM HQBCU0280-87-54 07:16:12068Iimlscto HermannCHEM WAERZ1466-63-99 07:16:0057[facility]annCHEM ERQDL5284-72-70 07:16:0034 [facility]annCHEM IZWQJ8011-31-46 07:16:000.8[facility] HermannCHEM PANEL 2015-07-04 07:16:004.2[facility] HermannCHEM GUVZA5396-51-03 07:16:000.7[facility]annCHEM GHDCV0563-84-36 07:16:0080[facility]annCHEM FUJCN3289-03-73 07:16:01456Xhcdkhyp HermannCHEM RPQRH8370-11-45 07:16:35798Fusrpiem HermannCHEM NRLJW0750-89-57 07:16:00See Note 1(07/04/15 1:16 AM)[facility]annCHEM PANEL 2015-07-04 07:16:0011[facility]annCHEM SVYHW3879-90-09 07:16:000.74[facility]annCHEM NQZRZ6637-22-74 07:16:0085[facility]annCHEM HEDBH4331-54-92 07:16:007.7[facility]annCHEM SWPLJ2978-33-39 07:16:003.5[facility]annCHEM YQXHP7984-24-78 07:16:0015[facility]annCHEM IDQZQ5732-52-24 07:16:008.7 [facility]annCHEM JYAKE4540-06-31 07:16:0024[facility]annCHEM PANEL 2015-07-04 07:16:86369Pauhakac OmclbjxZZRRXALEKC9998-08-25 07:16:000.1[facility] ExcqekuFJAFJEEPNP5247-83-59 07:16:000.7[facility] XoxtqfdJDOQHXPKMZ5009-04-80 07:16:002.7[facility] WrgogdwNPZPJCTDIQ0929-62-46 07:16:007.5[facility] HOSICOUPFD6109-92-18 07:16:001.0[facility] UdohrhmJIIDBAFMPQ3652-01-69 07:16:005.5 [facility] UbmvctmUAOXQERSLD7412-19-26 07:16:001.0[facility] HermannHEMATOLOGY 2015-07-04 07:16:008.3[facility] HzztylrJDFPZWNQBZ5182-84-81 07:16:0022.4[facility] ReqdbuuGMQLZYYUSQ1772-18-76 07:16:0062.8[facility] FoysrjtYXGMOOQHEZ5601-73-98 07:16:00* Test Item Value Reference Range Interpretation Comments MCH (test code = MCH) 29.5 pg 27.0-31.0 [facility] PmnbxnvBFJKNKDSVD9438-54-63 07:16:009.4[facility]annHEMATOLOGY 2015-07-04 07:16:57659Vrercwrd RcyjamjPUYEVTQOQL1502-26-22 07:16:0012.7[facility] FumvhmdBZEBXCJMYE4392-10-07 07:16:0032.5[facility] JxgfopoSTLVNGCDWI2366-83-67 07:16:0090.7[facility] UgddxblQMHALFBUMV9324-41-98 07:16:0043.1[facility] MNJHOUQFRR3113-93-59 07:16:0014.0[facility] HooswfyRWJTCCPBHX5895-91-21 07:16:00 4.76[facility] YmzvndoAYKXQWCZPZ4625-97-90 07:16:0012.0[facility] XMULG3776-60-32 07:16:001[facility] IZDEX7306-57-63 07:16:00 Negative (07/04/15 1:16 AM)[facility] SDJPV8528-45-61 07:16:00 Small *ABN*(07/04/15 1:16 AM)[facility] LXROX0199-97-54 07:16:00 Negative (07/04/15 1:16 AM)[facility] PXIKW0217-37-24 07:16:004 [facility] NRREF4851-28-53 07:16:007.0[facility] YOBGP5379-52-27 07:16:00Negative *NA*(07/04/15 1:16 AM)[facility] NKIPD7974-60-94 07:16:00Yellow *NA*(07/04/15 1:16 AM)[facility] IEVYW8531-88-45 07:16:001.027[facility] BWPKP3201-65-33 07:16:00 Marked *ABN*(07/04/15 1:16 AM)[facility] HVML7067-97-35 07:16:00 Negative (07/04/15 1:16 AM)[facility] KXBNR8428-92-78 07:36:002 [facility] RYJZJ6781-92-74 07:36:00Negative (05/17/15 2:36 AM) [facility] NODVM7692-26-26 07:36:00<1[facility] KHKLR4269-22-05 07:36:00Negative (05/17/15 2:36 AM)[facility] DMUPB1204-15-38 07:36:00Small *ABN*(05/17/15 2:36 AM)[facility] UFFVC8263-35-52 07:36:00Negative *NA*(05/17/15 2:36 AM)[facility] WQLZL4084-11-09 07:36:00Yellow *NA*(05/17/15 2:36 AM)[facility] SIZFL8154-82-22 07:36:00Clear (05/17/15 2:36 AM)[facility] STOOL 2015-05-17 07:36:001.016[facility] FLDRC8077-04-41 07:36:006.0 [facility] MXDP3685-12-87 07:36:00Negative (05/17/15 2:36 AM)[facility] HermannMOLECULAR INOSUCJKKO8690-47-80 12:19:00Negative *NA*(05/15/15 7:19 AM) [facility]annMOLECULAR BYLMGVROVH9528-21-52 12:19:00Endocervix *NA*(05/15/15 7:19 AM)[facility] HermannMOLECULAR RFLVYHVVQL1364-67-32 12:19:00Endocervix *NA*(05/15/15 7:19 AM)[facility] HermannMOLECULAR EUONFSGXRA4172-90-26 12:19:00 Negative *NA*(05/15/15 7:19 AM)[facility]annCHEM URNWN3889-09-17 07:57:003.5 [facility]annCHEM XALYL2171-47-65 07:57:001.1[facility] HermannCHEM PANEL 2015-05-15 07:57:009[facility] HermannCHEM OKTIA4618-45-40 07:57:0011.4[facility] HermannCHEM XLMXY3145-54-18 07:57:007[facility]annCHEM HVFOF2915-97-14 07:57:0087[facility]annCHEM FFSQE7636-67-15 07:57:007.3[facility] HermannCHEM GGSKO9394-69-88 07:57:0032[facility]annCHEM TCBFG6222-76-10 07:57:0024 [facility]annCHEM WRUIB8970-25-51 07:57:003.8[facility] HermannCHEM PANEL 2015-05-15 07:57:0087[facility] HermannCHEM TFDVC0910-16-15 07:57:0016[facility] HermannCHEM JQYEX3287-22-16 07:57:000.7[facility] HermannCHEM ALIFF2144-88-96 07:57:51994Ggrgidvu HermannCHEM WVVRS9279-85-23 07:57:80442Aduquhlu HermannCHEM ESLVQ7065-94-62 07:57:003.4[facility] HermannCHEM TWJAK9267-08-56 07:57:008.6 [facility]annCHEM NWNDY6359-20-02 07:57:33272Ymtoassg HermannCHEM PANEL 2015-05-15 07:57:000.8[facility] ThsvsapHTFMAPACWQ8064-67-43 07:57:84581Kxlvtzjp DsoydmyJNJELEEKZH2823-10-01 07:57:0013.1[facility] AzjfuyuBPDPZAABKR9918-04-54 07:57:008.9[facility] BmdbrdjZACAXTDFIB9008-85-55 07:57:0013.5[facility] DUJIARQDQS9309-98-31 07:57:0014.1[facility] ZotkorxSNWHLVZKAQ6056-28-00 07:57:00 4.85[facility] TcrcbdnJJBKBCHKJL3784-92-03 07:57:0044.3[facility] HermannHEMATOLOGY 2015-05-15 07:57:0091.4[facility] ZwndfnhJQTTYIDQIQ3191-02-54 07:57:00* Test Item Value Reference Range Interpretation Comments MCH (test code = MCH) 29.1 pg 27.0-31.0 [facility] FlisbamBKZUHFNUEQ1490-31-93 07:57:0031.9[facility] HermannHEMATOLOGY 2015-05-15 07:57:0061.6[facility] FdxcmerFMPQACVDKM0079-20-53 07:57:003.3[facility] GsnrsnwEMHOEOTRPR6513-44-46 07:57:000.7[facility] DnnhpwaZAUFESGOKA7559-27-90 07:57:001.0[facility] YipvmgxJSNYSKOUSW7361-02-25 07:57:000.2[facility] JMSAIBCKND3574-71-79 07:57:007.1[facility] QawxxtwQPGUPVISMB3344-22-10 07:57:00 24.6[facility] YyahfzwLLVOTYBERR1757-69-04 07:57:008.3[facility] HermannHEMATOLOGY 2015-05-15 07:57:001.2[facility] TwzniseMKQAIBQGFI0125-74-15 07:57:005.5[facility] AND ZJARY7897-77-43 07:57:001[facility] STOOL 2015-05-15 07:57:002[facility] RTKXV2218-22-56 07:57:00Moderate *ABN*(05/15/15 2:57 AM)[facility] NQKOK1230-33-67 07:57:00Negative *NA*(05/15/15 2:57 AM)[facility] VICCE7842-90-64 07:57:006.0 [facility] NKRCJ3472-82-86 07:57:00Negative (05/15/15 2:57 AM) [facility] QHLZZ1234-74-62 07:57:004.0[facility] MTLET6601-29-05 07:57:00Negative (05/15/15 2:57 AM)[facility] YSQSU2817-25-17 07:57:001.024[facility] CIJOO4886-89-49 07:57:00 Clear (05/15/15 2:57 AM)[facility] JXJXJ8102-50-66 07:57:00Yellow *NA*(05/15/15 2:57 AM)[facility] TOZE4299-07-50 07:57:00Negative (05/15/15 2:57 AM)[facility] JETEP9993-89-47 08:34:00Negative (02/14/15 3:34 AM)[facility] SHSNU5020-13-92 08:34:00Large *ABN*(02/14/15 3:34 AM)[facility] CPJTW6370-49-38 08:34:00Small *ABN*(02/14/15 3:34 AM)[facility] KYUYM4255-40-34 08:34:00Trace *ABN*(02/14/15 3:34 AM)[facility] STOGV8563-99-55 08:34:00Negative (02/14/15 3:34 AM)[facility] RZACM5804-42-31 08:34:000.2[facility] YXBSR8329-91-57 08:34:00Negative (02/14/15 3:34 AM)[facility] WBGTN9365-19-76 08:34:00* Test Item Value Reference Range Interpretation Comments UA pH (test code = UA pH) 6.0 1 5.0-8.0 [facility] RFFUH1640-24-96 08:34:00* Test Item Value Reference Range Interpretation Comments UA Spec Grav (test code = UA Spec Grav) 1.025 1 [facility] IWPTW4525-42-56 08:34:00Slight Cloudy (02/14/15 3:34 AM) [facility] BPJWA5540-56-13 08:34:00Yellow *NA*(02/14/15 3:34 AM) [facility] TZBJV7376-62-54 08:34:00None Seen 3(02/14/15 3:34 AM) [facility] XNSJ4372-64-22 08:34:00Negative (02/14/15 3:34 AM)[facility]annCHEM FESKV6236-74-68 06:10:000.4[facility] HermannCHEM LHMSK6128-42-01 06:10:0065[facility]annCHEM VYAVA3200-35-04 06:10:000.1[facility]annCHEM CVJSI0866-33-61 06:10:001.0[facility] HermannCHEM ACPGR1507-52-31 06:10:003.8 [facility]annCHEM IDEFF9036-14-19 06:10:003.9[facility] HermannCHEM PANEL 2015-02-14 06:10:007.7[facility] HermannCHEM MFPYQ0752-32-29 06:10:0023[facility] HermannCHEM OTTJD3618-46-00 06:10:0040[facility]annCHEM NWMHT0902-37-38 06:10:000.5[facility]annCHEM OGSJF7940-44-50 06:10:0087[facility]annCHEM LSTWK8843-59-71 06:10:0022[facility]annCHEM QCNXH8706-34-70 06:10:98918 [facility]annCHEM YZFOM6605-59-79 06:10:000.9[facility] HermannCHEM PANEL 2015-02-14 06:10:003.5[facility] HermannCHEM PCTSF7965-45-20 06:10:0083[facility]annCHEM KZOVM2967-44-72 06:10:005[facility]annCHEM IAVHT5760-96-53 06:10:0016.5[facility] HermannCHEM QVFXP3201-39-30 06:10:009.2[facility] HermannCHEM EGPBN8070-51-02 06:10:60537Iezmftmz HermannURINE AND ZGNNW0564-86-57 05:56:00 Moderate *ABN*(09/29/14 11:56 PM)[facility] RNPMN5751-43-11 05:56:00Negative *NA*(09/29/14 11:56 PM)[facility] OONKD6329-18-66 05:56:00Trace *ABN*(09/29/14 11:56 PM)[facility] VQLSN1282-65-39 05:56:00Negative (09/29/14 11:56 PM)[facility] XFGFH0262-42-68 05:56:002[facility] VAWJK1515-33-35 05:56:002[facility] SKLIK9448-20-97 05:56:00Yellow *NA*(09/29/14 11:56 PM)[facility] MKTSF7849-25-52 05:56:006.0[facility] WBUTN6303-51-10 05:56:001.020[facility] YJAOX2883-76-85 05:56:00Marked *ABN*(09/29/14 11:56 PM)[facility]annCHEM RVNNB7240-07-19 05:55:10334Ckprbuid HermannCHEM SQGRU0262-21-96 05:55:231.9[facility]annCHEM BXUFX4622-03-52 05:55:234.0[facility]annCHEM YNMWO0479-02-43 05:55:95819Fqxrxqjv HermannCHEM UZEMO7941-64-54 05:55:233.8[facility] HermannCHEM NZTSY6971-34-05 05:55:2328 [facility]annCHEM NMJAJ6650-97-35 05:55:230.8[facility] HermannCHEM PANEL 2014-09-30 05:55:239.1[facility] HermannCHEM IBDKK6383-90-81 05:55:2310[facility]annCHEM HPUPP7893-08-42 05:55:2389[facility]annCHEM ZQXIT8706-94-65 05:55:234.1[facility] HermannCHEM EMVOL1157-85-20 05:55:74034Hadwahox HermannCHEM QVDHT1844-83-79 05:55:61913Gcuvddxt HermannCHEM NHACT8588-34-89 05:55:2336 [facility]CHE[facility] SMXHH1229-06-07 05:55:2323[facility] HermannCHEM PANEL 2014-09-30 05:55:230.6[facility]annCHEM ALBPO3973-36-49 05:55:238.1[facility]annCHEM QPGQM6006-36-86 05:55:53319Ovwosjxd HermannCHEM TJLIH5504-44-75 05:55:2310.1[facility]annCHEM OXOVR3423-55-08 05:55:2312[facility]annCHEM UGHCU7616-76-82 05:55:230.9[facility] HermannCHEM KBBIL3217-59-02 05:55:234.3 [facility]annCHEM NSXJW1791-94-32 05:55:2350[facility] HermannENDOCRINOLOGY 2014-09-30 05:55:23Negative *NA*(09/29/14 11:55 PM)[facility] HermannHEMATOLOGY 2014-09-30 05:55:2315.3[facility] IbaapzyIUIUGZIUZD3852-95-72 05:55:2344.8[facility] DvkkpnaAYRDERWQWT0584-32-22 05:55:2313.5[facility] TmmgejkYYUGWKGLSC7725-24-22 05:55:23* Test Item Value Reference Range Interpretation Comments MCH (test code = MCH) 30.0 pg 27.0-31.0 [facility] FynsbunJJKRBJAKTR8194-02-35 05:55:2334.1[facility] 2014-09-30 05:55:2312.8[facility] BsdvdxaJTJIDVQMFB3944-61-42 05:55:235.10[facility] KrqlwxdDXSEHCTAYB7230-99-79 05:55:239.0[facility] KyxxqdwQXBVSBRRWT8881-05-07 05:55:63322Mysqzhhf NafmzgaLDSYAZDGVW5334-57-88 05:55:2387.9[facility] UYGQHNCPJR9984-48-28 05:55:230.1[facility] RtnvjfqACXJBRTMSJ4925-52-43 05:55:231.0 [facility] KcdedtvLHEUIHVVGT3689-96-78 05:55:230.6[facility] 2014-09-30 05:55:2362.0[facility] QssazdbEPJLXCHTEM5312-04-77 05:55:2325.2[facility] VkvwpdbZWLPROAFWQ3442-97-12 05:55:234.7[facility] DeoakreZIYQQKDNEU5965-70-01 05:55:231.0[facility] IqjbkboYQGCFZYFZS8448-58-90 05:55:238.4[facility] QUQQWZJPZZ1116-50-18 05:55:233.4[facility] SguvsxkBLOTUADHOT3983-83-31 05:55:237.1 [facility]
--- NOTE | 2020-04-12 20:10 | Emergency Department Note ---
History of Present Illnes History of Present Illness Chief Complaint: Abdominal Complaints History of Present Illness This is a 34 year old female presents with complaint of right lower quadrant pain that started last night. Patient states today pain is gotten worse and now she has nausea but has not actually had any vomiting. States pain is worse with standing. . Historian: Patient Arrival Mode: Car Senior Quantity Surveyor Required: No Onset (how long ago): day(s) (1) Location: rlq Quality: pain Radiation: Reports non-radiation Severity: moderate Onset quality: sudden Duration (how long): day(s) (1) Timing of current episode: constant Progression: worsening Chronicity: new Context: Denies recent illness, Denies recent surgery Relieving factors: none Exacerbating factors: movement Associated symptoms: Reports denies other symptoms, Reports nausea/vomiting (nausea no vomiting) Treatments prior to arrival: none Past Medical/Family History Physician Review I have reviewed the patient's past medical and family history. Any updates have been documented here. Past Medical History Recent Fever: No Clinical Suspicion of Infectio: No New/Unexplained Change in Ment: No Past Medical History: Anxiety Other Medical History: PCOS HYDRONEPHROSIS SUPRAPUBA ABSECESSED ADHD Past Surgical History: Cholecysctectomy Social History Smoking Cessation: Never Smoker Alcohol Use: None Any Illegal Drug Use: No Family History Family history of heart diseas: No Other family history htn Other Last Tetanus: UTD Review of Systems Review of Systems Constitutional: Reports no symptoms EENTM: Reports no symptoms Cardiovascular: Reports no symptoms Respiratory: Reports no symptoms Gastrointestinal: Reports as per HPI Genitourinary: Reports no symptoms Musculoskeletal: Reports no symptoms Integumentary: Reports no symptoms Neurological: Reports no symptoms Psychological: Reports no symptoms Endocrine: Reports no symptoms Hematological/Lymphatic: Reports no symptoms Physical Exam Related Data Allergies: Coded Allergies: Penicillins (Verified Allergy, Severe, 07/29/19) cephalexin (Verified Allergy, Severe, 02/07/18) clindamycin (Verified Allergy, Severe, 06/05/19) sulfamethoxazole (Verified Allergy, Severe, 02/07/18) trimethoprim (Verified Allergy, Severe, 02/07/18) Triage Vital Signs Vital Signs Date Time Temp Pulse Resp B/P (MAP) Pulse Ox O2 Delivery O2 Flow Rate FiO2 04/12/20 19:18 98.2 84 16 130/98 99 Room Air Vital signs reviewed: Yes Physical Exam CONSTITUTIONAL Constitutional: Present well-developed, Present well-nourished, Present distressed (mild) HENT HENT: Present normocephalic, Present atraumatic, Present oropharynx clear/moist, Present nose normal HENT L/R: Present left ext ear normal, Present right ext ear normal EYES Eyes: Reports PERRL, Reports conjunctivae normal NECK Neck: Present ROM normal PULMONARY Pulmonary: Present effort normal, Present breath sounds normal CARDIOVASCULAR Cardiovascular: Present regular rhythm, Present heart sounds normal, Present capillary refill normal, Present normal rate GASTROINTESTINAL abd soft, bowel sounds positive, pt with moderate tenderness to rlq with rebound on exam. no cva tenderness GENITOURINARY Genitourinary: Present exam deferred SKIN Skin: Present warm, Present dry MUSCULOSKELETAL Musculoskeletal: Present ROM normal NEUROLOGICAL Neurological: Present alert, Present oriented x 3, Present no gross motor or sensory deficits PSYCHOLOGICAL Psychological: Present mood/affect normal, Present judgement normal Results Laboratory Laboratory Laboratory Tests Test 04/12/20 19:30 04/12/20 19:27 White Blood Count 11.79 x10e3/uL (4.8-10.8) Red Blood Count 4.86 x10e6/uL (3.6-5.1) Hemoglobin 13.9 g/dL (12.0-16.0) Hematocrit 43.5 % (34.2-44.1) Mean Corpuscular Volume 89.5 fL (81-99) Mean Corpuscular Hemoglobin 28.6 pg (28-32) Mean Corpuscular Hemoglobin Concent 32.0 g/dL (31-35) Red Cell Distribution Width 13.2 % (11.7-14.4) Platelet Count 300 x10e3/uL (140-360) Neutrophils (%) (Auto) 70.0 % (38.7-80.0) Lymphocytes (%) (Auto) 18.2 % (18.0-39.1) Monocytes (%) (Auto) 7.9 % (4.4-11.3) Eosinophils (%) (Auto) 3.0 % (0.0-6.0) Basophils (%) (Auto) 0.4 % (0.0-1.0) Neutrophils # (Auto) 8.3 (2.1-6.9) Lymphocytes # (Auto) 2.2 (1.0-3.2) Monocytes # (Auto) 0.9 (0.2-0.8) Eosinophils # (Auto) 0.4 (0.0-0.4) Basophils # (Auto) 0.1 (0.0-0.1) Absolute Immature Granulocyte (auto 0.06 x10e3/uL (0-0.1) Sodium Level 141 mmol/L (136-145) Potassium Level 4.3 mmol/L (3.5-5.1) Chloride Level 107 mmol/L (98-107) Carbon Dioxide Level 19 mmol/L (22-29) Anion Gap 19.3 mmol/L (8-16) Blood Urea Nitrogen 9 mg/dL (7-26) Creatinine 0.71 mg/dL (0.57-1.11) Estimat Glomerular Filtration Rate > 60 ML/MIN (60-) BUN/Creatinine Ratio 13 (6-25) Glucose Level 89 mg/dL (74-118) Calcium Level 8.7 mg/dL (8.4-10.2) Total Bilirubin 0.5 mg/dL (0.2-1.2) Aspartate Amino Transf (AST/SGOT) 21 IU/L (5-34) Alanine Aminotransferase (ALT/SGPT) 17 IU/L (0-55) Alkaline Phosphatase 79 IU/L (40-150) Total Protein 7.9 g/dL (6.5-8.1) Albumin 3.8 g/dL (3.5-5.0) Globulin 4.1 g/dL (2.3-3.5) Albumin/Globulin Ratio 0.9 (0.8-2.0) Amylase Level 41 U/L (25-125) Lipase 16 U/L (8-78) Urine Color Yellow (YELLOW) Urine Clarity Sl cloudy (CLEAR) Urine pH 6.5 (5 - 7) Urine Specific [place] 1.030 (1.010-1.025) Urine Protein Negative (NEGATIVE) Urine Glucose (UA) Negative (NEGATIVE) Urine Ketones Negative (NEGATIVE) Urine Blood Moderate (NEGATIVE) Urine Nitrite Negative (NEGATIVE) Urine Bilirubin Negative (NEGATIVE) Urine Urobilinogen 0.2 mg/dL (0.2 - 1) Urine Leukocyte Esterase Negative (NEGATIVE) Urine RBC 6-10 /HPF (0-5) Urine WBC None /HPF (0-5) Urine Epithelial Cells Many /LPF (NONE) Urine Transitional Epithelial Cells Few (NONE) Urine Bacteria Many /HPF (NONE) Urine Test Negative (NEGATIVE) Lab results reviewed: Yes Imaging Imaging results reviewed: Yes Impressions Procedure: [id number] CT/CT ABDOMEN/PELVIS W Exam Date: 04/12/20 Exam Time: 2100 REPORT STATUS: Signed EXAM: CT Abdomen and Pelvis WITH contrast INDICATION: rlq pain COMPARISON: CT dated 02/07/2018.. TECHNIQUE: Abdomen and pelvis were scanned utilizing a multidetector helical scanner from the lung base to the pubic symphysis after administration of IV contrast. Coronal and sagittal reformations were obtained. Routine protocol was performed. Scan was performed when during portal venous phase. IV CONTRAST: 100 mL of Isovue 370 ORAL CONTRAST: None COMPLICATIONS: None RADIATION DOSE: Total DLP: 956.24 mGy*cm Estimated effective dose: (DLP x 0.015 x size factor) mSv CTDIvol has been reviewed. It is below the limits set by the Radiation Protocol Committee (RPC). Dose modulation, iterative reconstruction, and/or weight based adjustment of the mA/kV was utilized to reduce the radiation dose to as low as reasonably achievable. FINDINGS: LINES and TUBES: None. LOWER THORAX: Unremarkable HEPATOBILIARY: No focal hepatic lesions. No biliary ductal dilation. GALLBLADDER: There are cholecystectomy clips. SPLEEN: No splenomegaly. PANCREAS: No focal masses or ductal dilatation. ADRENALS: No adrenal nodules KIDNEYS/URETERS: Kidneys enhance symmetrically. No hydronephrosis. No cystic or solid mass lesions. No stones. GI TRACT: No abnormal distention, wall thickening, or evidence of bowel obstruction. Appendix is normal. PELVIC ORGANS/BLADDER: Unremarkable. LYMPH NODES: No lymphadenopathy. VESSELS: Unremarkable. PERITONEUM / RETROPERITONEUM: No free air or fluid. BONES: There are degenerative changes in the spine. SOFT TISSUES: There is an unchanged fat containing umbilical hernia. IMPRESSION: No acute abdominopelvic process. No evidence of acute appendicitis. Signed by: Owen Bryan MD on 04/12/2020 9:55 PM Dictated By: OWEN BRYAN MD 54 Transcribed By: LILIA on 04/12/202154 COPY TO: ZOLTAN MCKNIGHT MD~ Assessment & Plan Medical Decision Making MDM Patient with right lower quadrant pain since last night on exam found to have tenderness at McBurney's point right lower quadrant with rebound. CBC, CMP, amylase, lipase, CT abdomen and pelvis, UA ordered to eval for UTI, appendicitis, colitis, kidney stone, leukocytosis, electrolyte abnormality, elevated LFTs, pancreatitis Morphine 4 mg IV ordered, Zofran 4 mg IV ordered, normal saline 1 L IV bolus ordered NO PROCESS FOR PT'S RLQ PAIN IDENTIFIED ON CT ABD/PELVIS, PELVIC ULTRASOUND ORDERED TO EVAL FOR OVARIAN CYST, OVARIAN TORSION I SPOKE WITH DR Sebastian MERAZ(SURGEON), STATES PLACE PT IN OBS, REPEAT LABS IN AM AND KEEP PT NPO Reassessment Reassessment time: 00:[address] SCAN AND PELVIC U/S NOT REVEALING ANY PROCESS FOR PT'S PAIN, PT STILL EXQUISITELY TENDER TO RLQ AT MCBURNEY'S POINT WITH REBOUND Assessment & Plan Final Impression: (1) RLQ abdominal pain Depart Disposition: ADMITTED Last Vital Signs Date Time Temp Pulse Resp B/P (MAP) Pulse Ox O2 Delivery O2 Flow Rate FiO2 04/12/20 19:18 98.2 84 16 130/98 99 Room Air Home Meds Active Scripts Ondansetron (ZOFRAN ODT) 4 Mg Tab.rapdis, 4 MG SL Q6H PRN for Nausea, #14 0 Refills Prov:AMANDA MUHAMMAD MD 02/05/18 Nitrofurantoin Monohyd/M-Cryst (MACROBID 100 MG CAPSULE) 100 Mg Capsule, 100 MG PO BID, #7 Prov:AMANDA MUHAMMAD MD 02/05/18 Medications in the ED Morphine Sulfate 4 mg NOW STAT IV ; Start 04/12/20 at 19:21; Stop 04/12/20 at 19:32; Status DC Ondansetron HCl 4 mg NOW STAT IV ; Start 04/12/20 at 19:21; Stop 04/12/20 at 19:33; Status DC Sodium Chloride 1,000 ml @ 999 mls/hr Q1H1M ONCE IV ; Start 04/12/20 at 19:30; Stop 04/12/20 at 20:30 ZOLTAN MCKNIGHT MD Apr 12, 2020 20:10
[2020-04-12 20:18] LABS: BASOPHILS # (AUTO) 0.1 (0.0-0.1); BASOPHILS % 0.4 % (0.0-1.0); EOSINOPHILS # (AUTO) 0.4 (0.0-0.4); HEMATOCRIT 43.5 % (34.2-44.1); HEMOGLOBIN 13.9 g/dL (12.0-16.0); LYMPHOCYTES # (AUTO) 2.2 (1.0-3.2); LYMPHOCYTES % 18.2 % (18.0-39.1); MEAN CORPUSCULAR HEMOGLOBIN 28.6 pg (28-32); MEAN CORPUSCULAR VOLUME 89.5 fL (81-99); MONOCYTES # (AUTO) 0.9 (0.2-0.8); MONOCYTES % 7.9 % (4.4-11.3); NEUTROPHILS # (AUTO) 8.3 (2.1-6.9); PLATELET COUNT 300 x10e3/uL (140-360); RED BLOOD COUNT 4.86 x10e6/uL (3.6-5.1); RED CELL DISTRIBUTION WIDTH 13.2 % (11.7-14.4)
[2020-04-12 20:21] LABS: CLARITY,URINE SL CLOUDY (CLEAR); COLOR,URINE YELLOW (YELLOW); KETONES,URINE NEGATIVE (NEGATIVE); LEUKOCYTE ESTERASE ,URINE NEGATIVE (NEGATIVE); NITRITE,URINE NEGATIVE (NEGATIVE); PROTEIN,URINE DIPSTICK NEGATIVE (NEGATIVE)
[2020-04-12 20:22] LABS: BILIRUBIN,URINE NEGATIVE (NEGATIVE); PREGNANCY TEST, URINE NEGATIVE (NEGATIVE); URINE UROBILINOGEN 0.2 mg/dL (0.2 - 1)
[2020-04-12 20:35] LABS: BACTERIA,URINE MANY /HPF; EPITHELIAL CELLS,URINE MANY /LPF; TRANSITIONAL EPI CELLS,URINE FEW
[2020-04-12 20:37] LABS: AMYLASE 41 U/L (25-125); LIPASE 16 U/L (8-78)
[2020-04-12 20:44] LABS: ALANINE AMINOTRANSFERASE 17 IU/L (0-55); ALBUMIN 3.8 g/dL (3.5-5.0); ALBUMIN/GLOBULIN RATIO 0.9 (0.8-2.0); ALKALINE PHOSPHATASE 79 IU/L (40-150); ANION GAP 19.3 mmol/L (8-16); BLOOD UREA NITROGEN 9 mg/dL (7-26); BUN/CREATININE RATIO 13 (6-25); CALCIUM 8.7 mg/dL (8.4-10.2); CARBON DIOXIDE 19 mmol/L (22-29); CHLORIDE 107 mmol/L (98-107); CREATININE, SERUM 0.71 mg/dL (0.57-1.11); EST GLOMERULAR FILTRATION RATE > 60 ML/MIN (60-); GLUCOSE 89 mg/dL (74-118); POTASSIUM 4.3 mmol/L (3.5-5.1); SODIUM 141 mmol/L (136-145)
[2020-04-12] MEDS ORDERED: IOPAMIDOL 370 MG/ML 200 ML INFUS..BTL INJ ONE (21:41)
[2020-04-12] MEDS ORDERED: SODIUM CHLORIDE 0.9% 50ML 50 ML ONE (21:42)
--- NOTE | 2020-04-12 21:58 | Diagnostic Imaging Report ---
EXAM: CT Abdomen and Pelvis WITH contrast INDICATION: rlq pain COMPARISON: CT dated 02/07/2018.. TECHNIQUE: Abdomen and pelvis were scanned utilizing a multidetector helical scanner from the lung base to the pubic symphysis after administration of IV contrast. Coronal and sagittal reformations were obtained. Routine protocol was performed. Scan was performed when during portal venous phase. IV CONTRAST: 100 mL of Isovue 370 ORAL CONTRAST: None COMPLICATIONS: None RADIATION DOSE: Total DLP: 956.24 mGy*cm Estimated effective dose: (DLP x 0.015 x size factor) mSv CTDIvol has been reviewed. It is below the limits set by the Radiation Protocol Committee (RPC). Dose modulation, iterative reconstruction, and/or weight based adjustment of the mA/kV was utilized to reduce the radiation dose to as low as reasonably achievable. FINDINGS: LINES and TUBES: None. LOWER THORAX: Unremarkable HEPATOBILIARY: No focal hepatic lesions. No biliary ductal dilation. GALLBLADDER: There are cholecystectomy clips. SPLEEN: No splenomegaly. PANCREAS: No focal masses or ductal dilatation. ADRENALS: No adrenal nodules KIDNEYS/URETERS: Kidneys enhance symmetrically. No hydronephrosis. No cystic or solid mass lesions. No stones. GI TRACT: No abnormal distention, wall thickening, or evidence of bowel obstruction. Appendix is normal. PELVIC ORGANS/BLADDER: Unremarkable. LYMPH NODES: No lymphadenopathy. VESSELS: Unremarkable. PERITONEUM / RETROPERITONEUM: No free air or fluid. BONES: There are degenerative changes in the spine. SOFT TISSUES: There is an unchanged fat containing umbilical hernia. IMPRESSION: No acute abdominopelvic process. No evidence of acute appendicitis. Signed by: Shade Yoo MD on 04/12/2020 9:55 PM
[2020-04-12] MEDS ORDERED: KETOROLAC TROMETHAMINE 30 MG/ML VIAL IV STA ×2 (22:09→22:20)
--- NOTE | 2020-04-12 23:58 | Diagnostic Imaging Report ---
EXAM: Transabdominal and Transvaginal Pelvic Ultrasound INDICATION: EVAL FOR RIGHT OVARIAN TORSION COMPARISON: None TECHNIQUE: Grayscale transverse and sagittal transabdominal and transvaginal images were obtained of the pelvis. Transvaginal imaging was medically necessary to better evaluate the endometrium and the adnexa. Doppler waveforms were performed of the right ovary to evaluate arterial and venous flow. CLINICAL HISTORY: 34 year old A0; last menstrual period: 04/05/2020. FINDINGS: Uterus Orientation: Normal Size: 6.4 x 3.4 x 4.0 cm, Normal Mass: None Cervix: Nabothian cysts Endometrium: Thickness: 0.7 cm, Normal. Appearance: Homogeneous echotexture without focal thickening. Right ovary: Size: 2.0 x 1.4 x 1.7 cm Mass/Cyst: None Left ovary: Nonvisualized Adnexa: Normal Cul-de-sac: No free fluid IMPRESSION: 1. Normal-appearing right ovary with arterial and venous waveforms. No evidence of right ovarian torsion. 2. The left ovary was not visualized. Signed by: Shade Yoo MD on 04/12/2020 11:55 PM
[2020-04-13] VITALS (9 sets, daily range): BP systolic 96–119; BP diastolic 72–76
[2020-04-13] MEDS ORDERED: MORPHINE SULFATE 2 MG/ML SYR 1ML IV STA (00:17)
[2020-04-13 00:20] LABS: AMPHETAMINES SCREEN,URINE POSITIVE (NEGATIVE); BENZODIAZEPINES SCREEN,URINE POSITIVE (NEGATIVE); PHENCYCLIDINE SCREEN,URINE NEGATIVE (NEGATIVE)
[2020-04-13] MEDS ORDERED: MORPHINE SULFATE INJ 4 MG/ML INJ 1ML ONE (00:32)
--- OUTSIDE RECORDS SUMMARY | 2020-04-13 00:35 | XMS REPORT | Continuity of Care Document ---
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 *Please bring pt's own adderall to pharmacy for label*, ATTN:REG[place], Drug form: MISC, Route: MISC, QSHIFT, 01/27/19 16:00:00 CDT, Duration: 30 day, Stop date: 02/26/19 8:00:00 CDT No Longer Active 01/27/2019 [facility] Acetaminophen 325 MG / Hydrocodone Nereyda trate 5 MG Oral Tablet [[place] 5/325] Notes: (Same as: [place] 325/5) Do not ex ceed 4gm/day of acetaminophen. No Longer Activ e 01/27/2019 [facility] Vancomycin 1 ea, Route: MISC, ONCALL, Dosing Weight 125, kg, Start date: 01/27/19 5:00:00 CDT, Duration: 5 day, Stop date: 02/01/19 4:59:00 CDT, Pharmacy to dose, ABX Indication: Skin/Soft Tissue Infection Inactive 01/27/2019 [facility] vancomycin + Sodium Chloride 0.9% IV 250 mL 2001 mg: infuse over 2.5 hours For adult patients only: Round to nearest 250 mg per Medical Staff approval MEDICATION WASTE Product Size: 1000 mg Product Wasted: ___ mg No Longer Active 01/27/2019 [facility] Lovenox Notes: (Same as: Loven ox) No Longer Active 01/27/2019 [facility] Morphine Notes: (Same as:MORPh ine Sulfate) No Longer Active 01/27/2019 [facility] Dextrose 50% Syringe 25 gm, 50 mL, Route: IVP, Drug Form: INJ, Dosing Weight 125, kg, PRN, PRN Blood Glucose Results, Start date: 01/27/19 4:35:00 CDT, Duration: 30 day, Stop date: 02/26/19 4:34:00 CDT No Longer Active 01/27/2019 [facility] Acetaminophen Notes: Do not ex ceed 4 gm/day. (Same as: Tylenol) No Longer Active 01/27/2019 [facility] Ondansetron Notes: (Same as: Kathy diaz) MEDICATION WASTE Product Size: 4 mg Product Wasted: ___ mg No Longer Active 01/27/2019 [facility] Glucagon 1 mg, Route: IM, Drug form: PDR/INJ, PRN, Dosing Weight 125, kg, PRN Blood Glucose Results, Start date: 01/27/19 4:35:00 CDT, Duration: 30 day, Stop date: 02/26/19 4:34:00 CDT No Longer Active 01/27/2019 [facility] Morphine 4 mg, Route: IVP, ONC E, Dosing Weight 125, kg, Priority: STAT, Start date: 01/27/19 3:29:00 CDT, Stop date: 01/27/19 3:29:00 CDT Inactive 01/27/2019 [facility] Vancomycin 1,000 mg, Route: IV PB, Drug form: INJ, ONCE, Dosing Weight 125, kg, Priority: STAT, Start date: 01/27/19 3:28:00 CDT, Stop date: 01/27/19 3:28:00 CDT, ABX Indication: Skin/Soft Tissue Infection Inactive 01/27/2019 [facility] Mupirocin 20 MG/ML Topical Cream 1 appl, TOP, TID, X 5 day, # 15 gm, 0 Refill(s) Active 12/13/2018 [facility] azithromycin 500 mg oral tablet 500 mg = 1 tab, PO, Daily, X 5 day, # 5 tab, 0 Refill(s) Active 12/13/2018 [facility] tedizolid 200 mg oral tablet 2 00 mg = 1 tab, PO, Daily, X 6 day, # 6 tab, 0 Refill(s), Pharmacy: [facility] [id number] Active 12/09/2018 [facility] Acetaminophen 300 MG / Codeine Phosphate 30 MG Oral Tablet [Tylenol with Codeine #3] 1 tab, PO, Q6H, PRN Pain, X 7 day, # 30 tab, 0 Refill(s) Active 12/09/2018 [facility] vancomycin + Sodium Chloride 0.9% IV 100 mL Notes: TIME CRITICAL MEDICATION (Same As: Vancocin) For adult patients only: Round to nearest 250 mg per Medical Staff approval No Longer Active 12/09/2018 [facility] vancomycin + Sodium Chloride 0.9% IV 250 mL 2001 mg: infuse over 2.5 hours For adult patients only: Round to nearest 250 mg per Medical Staff approval MEDICATION WASTE Product Size: 1000 mg Product Wasted: ___ mg No Longer Active 12/08/2018 [facility] Dilaudid Notes: (Same as: Dila udid) No Longer Active 12/07/2018 [facility] Naloxone Notes: Same as Narcan Inactive 12/06/2018 [facility] Ondansetron Notes: (Same as: Kathy diaz) MEDICATION WASTE Product Size: 4 mg Product Wasted: ___ mg Inactive 12/06/2018 [facility] Flumazenil Notes: (Same as: Ro mazicon) Inactive 12/06/2018 [facility] Hydromorphone Notes: Same as: Dilaudid Inactive 12/06/2018 [facility] Fentanyl Notes: (Same as: Subl imaze) Preservative free. Inactive 12/06/2018 [facility] Hydralazine Notes: (Same as: A presoline) Push over 5 minutes Inactive 12/06/2018 [facility] dexamethasone (ANES) Route: IV , Drug form: INJ, ONCE, Stop date: 12/06/18 12:33:00 CDT Inactive 12/06/2018 [facility] ondansetron (ANES) Route: IV, Drug form: INJ, ONCE, Stop date: 12/06/18 12:33:00 CDT Inactive 12/06/2018 [facility] ketOROLAC (ANES) IV, ONCE Inactive 12/06/2018 [facility] fentaNYL (ANES) Route: IV, Juan g form: INJ, ONCE, Stop date: 12/06/18 12:33:00 CDT Inactive 12/06/2018 [facility] midazolam (ANES) Route: IV, Dr ug form: SOLN, ONCE, Stop date: 12/06/18 12:33:00 CDT Inactive 12/06/2018 [facility] propofol (ANES) Route: IV, Juan g form: INJ, ONCE, Stop date: 12/06/18 12:33:00 CDT Inactive 12/06/2018 [facility] vancomycin (ANES) 1000 mg Rout e: IV, Drug form: INJ, Start date: 12/06/18 11:45:00 CDT, Stop date: 12/06/18 12:45:00 CDT Inactive 12/06/2018 [facility] Lactated Ringers Injection IV (ANES) 1000 mL Route: IV, Total Volume: 1,000, Start date: 12/06/18 11:45:00 CDT, Stop date: 12/06/18 12:45:00 CDT Inactive 12/06/2018 [facility] Calcium Chloride 0.0014 MEQ/ML / Potassi um Chloride 0.004 MEQ/ML / Sodium Chloride 0.103 MEQ/ML / Sodium Lactate 0.028 MEQ/ML Injectable Solution 1,000 mL, Rate: 25 ml/hr, Infuse over: 4 0 hr, Route: IV, Dosing Weight 58.778 kg, Total Volume: 1,000, Start date: 12/06/18 11:00:00 CDT, Duration: 30 day, Stop date: 01/05/19 10:59:00 CDT, 1.66, m2 Inactive 12/06/2018 [facility] vancomycin + Sodium Chloride 0.9% IV 250 mL 2001 mg: infuse over 2.5 hours For adult patients only: Round to nearest 250 mg per Medical Staff approval MEDICATION WASTE Product Size: 1000 mg Product Wasted: ___ mg No Longer Active 12/05/2018 [facility] Spironolactone Notes: (Same As : Aldactone) No Longer Active 12/05/2018 [facility] Ambien Notes: (Same As: Ambien) No Longer Active 12/05/2018 [facility] vancomycin + Sodium Chloride 0.9% IV 250 mL 2001 mg: infuse over 2.5 hours For adult patients only: Round to nearest 250 mg per Medical Staff approval MEDICATION WASTE Product Size: 1000 mg Product Wasted: ___ mg No Longer Active 12/04/2018 [facility] Adderall 30 mg, PO, BID, 0 Ref ill(s) Active 12/04/2018 [facility] Enoxaparin Notes: (Same as: Lo venox) No Longer Active 12/04/2018 [facility] Vancomycin 2001 mg: infuse ov er 2.5 hours For adult patients only: Round to nearest 250 mg per Medical Staff approval No Longer Active 12/04/2018 [facility] Vancomycin 2001 mg: infuse ov er 2.5 hours For adult patients only: Round to nearest 250 mg per Medical Staff approval MEDICATION WASTE Product Size: 1000 mg Product Wasted: ___ mg Inactive 12/04/2018 [facility] Dextrose 50% Syringe 25 gm, 50 mL, Route: IVP, Drug Form: INJ, Dosing Weight 126.364, kg, PRN, PRN Blood Glucose Results, Start date: 12/03/18 21:07:00 CDT, Duration: 30 day, Stop date: 01/02/19 21:06:00 CDT No Longer Active 12/04/2018 [facility] Glucagon 1 mg, Route: IM, Drug form: PDR/INJ, PRN, Dosing Weight 126.364, kg, PRN Blood Glucose Results, Start date: 12/03/18 21:07:00 CDT, Duration: 30 day, Stop date: 01/02/19 21:06:00 CDT No Longer Active 12/04/2018 [facility] Bisacodyl Notes: (Same As: Dul colax, Bisco-Lax) No Longer Active 12/04/2018 [facility] Ondansetron Notes: (Same as: Kathy diaz) MEDICATION WASTE Product Size: 4 mg Product Wasted: ___ mg No Longer Active 12/04/2018 [facility] Melatonin Notes: (Same as: Raissa atonin) No Longer Active 12/04/2018 [facility] Acetaminophen Notes: Do not ex ceed 4 gm/day. (Same as: Tylenol) No Longer Active 12/04/2018 [facility] Hydromorphone Notes: Same as: Dilaudid No Longer Active 12/04/2018 [facility] Tramadol Notes: Not to exceed 400mg/day. (Same As: Ultram) No Longer Active 12/04/2018 [facility] LR IV 1,000 mL 1,000 mL, Rate: 125 ml/hr, Infuse over: 8 hr, Route: IV, Dosing Weight 126.364 kg, Total Volume: 1,000, Start date: 12/03/18 21:05:00 CDT, Duration: 30 day, Stop date: 01/02/19 21:04:00 CDT, 2.47, m2 No Longer Active 12/04/2018 [place] Calcium Gluconate Notes: WASTE : F/P - Sink; E - Municipal Trash Bin No Longer Active 12/04/2018 [place] Potassium Chloride Notes: ([facility] as: K-Dur 20) "Do Not Crush" Give with food and full glass of water For patients unable to swallow tablet, dissolve in one half glass of water. Allow about 2 minutes for the tab lets to disintegrate. Stir before giving to prepare slurry and administer. Please exclude Patients with feeding tube less than 14 [place] (Dobhoff, J-tube etc) and pediatric and patients. No Longer Active 12/04/2018 [place] [facility] Magnesium Sulfate Notes: WASTE : F/P - Sink; E - Municipal Trash Bin No Longer Active 12/04/2018 [place] potassium phosphate Notes: ([facility] as: K Phosphate.) Do not infuse phosphorous concurrently in the same line as TPN or IVF that contains calcium. For double lumen central lines, phosphorous may be infused in a separate lumen from TPN. 1 mMol phoshate has 1.47 mEq potassium Infuse over 4 hours No Longer Active 12/04/2018 [facility] sodium phosphate Notes: Infuse over 4 hour. Do not infuse phosphorous concurrently in the same line as TPN or IVF that contains calcium. For double lumen central lines, phosphorous may be infused in a separate lumen from TPN. No Longer Active 12/04/2018 [facility] Magnesium Oxide Notes: (Same a s: Mag-Ox 400) Magnesium oxide 791hu=675mm elemental magnesium Dose=____mg magnesium oxide (___mg elemental magnesium) No Longer Active 12/04/2018 [place] potassium phosphate-sodium phosphate 250 mg-280 mg-160 mg oral powder for reconstitution Notes: (Same as: Phos-NaK) Each 1.5 gm pkt has 250mg phosphorous. Mix w/2.5oz water and stir. No Longer Active 12/04/2018 [place] Morphine 4 mg, Route: IVP, ONC E, Dosing Weight 126.364, kg, Priority: STAT, Start date: 12/03/18 20:56:00 CDT, Stop date: 12/03/18 20:56:00 CDT Inactive 12/04/2018 [facility] Ondansetron 4 mg, Route: IVP, Drug form: INJ, ONCE, Dosing Weight 126.364, kg, Priority: STAT, Start date: 12/03/18 20:56:00 CDT, Stop date: 12/03/18 20:56:00 CDT Inactive 12/04/2018 [facility] Sodium Chloride 0.9% (Bolus) IV 1,000 mL, 1000 ml/hr, Infuse Over: 1 hr, Route: IV, 1,000, Drug form: INJ, ONCE, Priority: STAT, Dosing Weight 126.364 kg, Start date: 12/03/18 18:40:00 CDT, Stop date: 12/03/18 18:40:00 CDT Inactive 12/03/2018 [facility] Morphine 4 mg, Route: IVP, ONC E, Dosing Weight 126.364, kg, Priority: STAT, Start date: 12/03/18 18:40:00 CDT, Stop date: 12/03/18 18:40:00 CDT Inactive 12/03/2018 [facility] Vancomycin 1,000 mg, Route: IV PB, ONCE, Dosing Weight 126.364, kg, Priority: STAT, Start date: 12/03/18 18:40:00 CDT, Stop date: 12/03/18 18:40:00 CDT, ABX Indication: Skin/Soft Tissue Infection Inactive 12/03/2018 [facility] Saline Flush 0.9% Notes: (Same as: BD Posiflush) No Longer Active 12/03/2018 [facility] linezolid 600 mg oral tablet 6 00 mg = 1 tab, PO, [id number], X 10 day, # 20 tab, 0 Refill(s), Pharmacy: [facility] [id number] Active 10/12/2018 [facility] Morphine Notes: (Same as:MORPh ine Sulfate) No Longer Active 10/12/2018 [facility] linezolid Notes: Protect from light. (Same as: Zyvox) No Longer Active 10/11/2018 [facility] Vancomycin 2001 mg: infuse ov er 2.5 hours For adult patients only: Round to nearest 250 mg per Medical Staff approval MEDICATION WASTE Product Size: 1000 mg Product Wasted: ___ mg Inactive 10/11/2018 [facility] Lovenox Notes: (Same as: Loven ox) No Longer Active 10/11/2018 [facility] Vancomycin 1 ea, Route: MISC, ONCALL, Dosing Weight 133.182, kg, Priority: STAT, Start date: 10/11/18 10:46:00 MANAGER BOOK, Duration: 1 day, Stop date: 10/12/18 10:45:00 MANAGER BOOK, Pharmacy to dose, ABX Indication: Urinary T ract Infection Inactive 10/11/2018 [facility] Ambien Notes: (Same As: Ambien) No Longer Active 10/11/2018 [facility] Acetaminophen 300 MG / Codeine Phosphate 30 MG Oral Tablet [Tylenol with Codeine #3] Notes: Do not exceed 4gm/day of acetamin ophen. (Same as: Tylenol with Codeine # 3) No Longer Active 10/11/2018 [facility] Dextrose 50% Syringe 25 gm, 50 mL, Route: IVP, Drug Form: INJ, Dosing Weight 133.182, kg, PRN, PRN Blood Glucose Results, Start date: 10/11/18 10:12:00 MANAGER BOOK, Duration: 30 day, Stop date: 11/10/18 11:11:00 CDT No Longer Active 10/11/2018 [facility] Glucagon 1 mg, Route: IM, Drug form: PDR/INJ, PRN, Dosing Weight 133.182, kg, PRN Blood Glucose Results, Start date: 10/11/18 10:12:00 MANAGER BOOK, Duration: 30 day, Stop date: 11/10/18 11:11:00 CDT No Longer Active 10/11/2018 [facility] Docusate Notes: (Same as: Cola ce) (Do Not Crush) No Longer Active 10/11/2018 [facility] Dextrose 50% Syringe 25 gm, 50 mL, Route: IVP, Drug Form: INJ, Dosing Weight 133.182, kg, PRN, PRN Blood Glucose Results, Start date: 10/11/18 8:50:00 MANAGER BOOK, Duration: 30 day, Stop date: 11/10/18 9:49:00 CDT No Longer Active 10/11/2018 [facility] Glucagon 1 mg, Route: IM, Drug form: PDR/INJ, PRN, Dosing Weight 133.182, kg, PRN Blood Glucose Results, Start date: 10/11/18 8:50:00 MANAGER BOOK, Duration: 30 day, Stop date: 11/10/18 9:49:00 CDT No Longer Active 10/11/2018 [facility] Ondansetron Notes: (Same as: Kathy diaz) MEDICATION WASTE Product Size: 4 mg Product Wasted: ___ mg No Longer Active 10/11/2018 [facility] COLLAGENASE 0.25 UNT/MG Topical Ointment [Santyl] 1 appl, TOP, Daily, # 15 gm, 0 Refill(s) No Longer Active 10/11/2018 [facility] Spironolactone 50 mg, PO, Polina y, # 60 tab, 0 Refill(s) Active 10/11/2018 [facility] Zolpidem tartrate 10 MG Oral Tablet [Ambien] 10 mg = 1 tab, PO, Bedtime, # 14 tab, 0 Refill(s) Active 10/11/2018 [facility] Acetaminophen 325 MG / Hydrocodone Nereyda trate 5 MG Oral Tablet [[place] 5/325] 1 tab, Route: PO, Drug Form: TAB, Dosing Weight 133.005, kg, ONCE, STAT, Start date: 10/11/18 3:20:00 MANAGER BOOK, Stop date: 10/11/18 3:20:00 MANAGER BOOK Inactive 10/11/2018 [facility] Ibuprofen 600 mg, Route: PO, D rug form: TAB, ONCE, Dosing Weight 133.005, kg, Priority: STAT, Start date: 10/11/18 1:55:00 MANAGER BOOK, Stop date: 10/11/18 1:55:00 MANAGER BOOK Inactive 10/11/2018 [facility] Vancomycin 2001 mg: infuse ov er 2.5 hours For adult patients only: Round to nearest 250 mg per Medical Staff approval MEDICATION WASTE Product Size: 1000 mg Product Wasted: ___ mg No Longer Active 10/11/2018 [facility] Minocycline 100 mg, PO, BID, 0 Refill(s) No Longer Active 10/05/2018 [facility] Acetaminophen 300 MG / Codeine Phosphate 30 MG Oral Tablet [Tylenol with Codeine #3] 1 tab, PO, Q4H, PRN Pain, not to exceed 4000 mg acetaminophen per day, X 3 day, # 12 tab, 0 Refill(s) No Longer Active 09/06/2018 [facility] Ondansetron 4 MG Disintegrating Tablet [Zofran] 4 mg = 1 tab, PO, TID, # 15 tab, 0 Refill(s) No Longer Active 09/06/2018 [facility] Morphine Notes: (Same as:MORPh ine Sulfate) Inactive 09/06/2018 [facility] Pepcid Notes: (Same as: Pepcid ) Can be dilute in 5-10cc NS IVP: Slow IV push over at least 2 minutes. Inactive 09/06/2018 [facility] Zofran Notes: (Same as: Zofran ) MEDICATION WASTE Product Size: 4 mg Product Wasted: ___ mg Inactive 09/06/2018 [facility] Morphine 4 mg, Route: IVP, ONC E, Dosing Weight 120.455, kg, Priority: STAT, Start date: 09/06/18 0:58:00 MANAGER BOOK, Stop date: 09/06/18 0:58:00 MANAGER BOOK Inactive 09/06/2018 [facility] Zofran 4 mg, Route: IVP, Drug form: INJ, ONCE, Dosing Weight 120.455, kg, Priority: STAT, Start date: 09/06/18 0:58:00 MANAGER BOOK, Stop date: 09/06/18 0:58:00 MANAGER BOOK Inactive 09/06/2018 [facility] Sodium Chloride 0.9% (Bolus) IV 1,000 mL, Infuse Over: 1 hr, Route: IV, ONCE, Priority: STAT, Dosing Weight 120.455 kg, Start date: 09/06/18 0:57:00 MANAGER BOOK, Stop date: 09/06/18 0:57:00 MANAGER BOOK Inactive 09/06/2018 [facility] Acetaminophen 300 MG / Codeine Phosphate 30 MG Oral Tablet [Tylenol with Codeine #3] 1 tab, PO, Q12H, PRN Pain, X 5 day, # 10 tab, 0 Refill(s) No Longer Active 08/30/2018 [place] heparin sodium, porcine 2500 UNT/ML Injectable Solutio n Notes: porcine heparin No Longer Active 08/30/2018 [facility] Vancomycin 2001 mg: infuse ov er 2.5 hours For adult patients only: Round to nearest 250 mg per Medical Staff approval MEDICATION WASTE Product Size: 1000 mg Product Wasted: ___ mg No Longer Active 08/28/2018 [facility] Saline Flush 0.9% Notes: (Same as: BD Posiflush) No Longer Active 08/27/2018 [facility] Lidocaine Hydrochloride 10 MG/ML Injectable Solution Notes: (Same as: Xylocaine) No Longer Active 08/27/2018 [facility] Saline Flush 0.9% Notes: (Same as: BD Posiflush) No Longer Active 08/27/2018 [facility] morphine Sulfate Notes: (Same as:MORPhine Sulfate) No Longer Active 08/26/2018 [facility] vancomycin + Sodium Chloride 0.9% IV 250 mL 2001 mg: infuse over 2.5 hours For adult patients only: Round to nearest 250 mg per Medical Staff approval MEDICATION WASTE Product Size: 1000 mg Product Wasted: ___ mg No Longer Active 08/25/2018 [facility] vancomycin + Sodium Chloride 0.9% IV 250 mL 2001 mg: infuse over 2.5 hours For adult patients only: Round to nearest 250 mg per Medical Staff approval MEDICATION WASTE Product Size: 1000 mg Product Wasted: ___ mg No Longer Active 08/25/2018 [facility] Tramadol Notes: Not to exceed 400mg/day. (Same As: Ultram) No Longer Active 08/25/2018 [facility] sennosides, PRISON Notes: (Same a s: Senokot) No Longer Active 08/25/2018 [facility] Judith Sandoval Notes: (Same A s: Judith Sandoval) "Do Not Crush" No Longer Active 08/25/2018 [facility] Melatonin Notes: (Same as: Raissa atonin) No Longer Active 08/25/2018 [facility] Morphine 2 mg, 1 mL, Route: IV P, Drug form: SOLN, Q4H, Dosing Weight 127.727, kg, PRN Pain Score 7-10, Start date: 08/24/18 19:47:00 MANAGER BOOK, Duration: 30 day, Stop date: 09/23/18 19:46:00 MANAGER BOOK No Longer Active 08/25/2018 [facility] Acetaminophen 325 MG / Hydrocodone Nereyda trate 10 MG Oral Tablet [[place] 10/325] Notes: Do not exceed 4gm/day of acetamin ophen. (Same as: [place] 325/10) No Longer Active 08/25/2018 [facility] Vancomycin 2001 mg: infuse ov er 2.5 hours For adult patients only: Round to nearest 250 mg per Medical Staff approval MEDICATION WASTE Product Size: 1000 mg Product Wasted: ___ mg No Longer Active 08/24/2018 [facility] Dextrose 50% Syringe 12.5 gm, 25 mL, Route: IVP, Drug Form: INJ, Dosing Weight 136.364, kg, PRN, PRN Blood Glucose Results, Start date: 08/24/18 14:32:00 MANAGER BOOK, Duration: 30 day, Stop date: 09/23/18 14:31:00 MANAGER BOOK No Longer Active 08/24/2018 [facility] Glucagon 1 mg, Route: IM, Drug form: PDR/INJ, PRN, Dosing Weight 136.364, kg, PRN Blood Glucose Results, Start date: 08/24/18 14:32:00 MANAGER BOOK, Duration: 30 day, Stop date: 09/23/18 14:31:00 MANAGER BOOK No Longer Active 08/24/2018 [facility] Ondansetron Notes: (Same as: Kathy diaz) MEDICATION WASTE Product Size: 4 mg Product Wasted: ___ mg No Longer Active 08/24/2018 [facility] Acetaminophen Notes: Do not ex ceed 4 gm/day. (Same as: Tylenol) No Longer Active 08/24/2018 [facility] Morphine 4 mg, Route: IVP, ONC E, Dosing Weight 120.455, kg, Start date: 08/24/18 14:22:00 MANAGER BOOK, Stop date: 08/24/18 14:22:00 MANAGER BOOK Inactive 08/24/2018 [facility] Zofran Notes: (Same as: Zofran ) MEDICATION WASTE Product Size: 4 mg Product Wasted: ___ mg Inactive 08/24/2018 [facility] Morphine Notes: (Same as:MORPh ine Sulfate) Inactive 08/24/2018 [facility] Vancomycin 2001 mg: infuse ov er 2.5 hours For adult patients only: Round to nearest 250 mg per Medical Staff approval MEDICATION WASTE Product Size: 1000 mg Product Wasted: ___ mg Inactive 08/24/2018 [facility] doxycycline hyclate 100 MG Oral Tablet 100 mg = 1 tab, PO, Q12H, X 10 day, # 20 tab, 0 Refill(s), Pharmacy: [facility] [id number] No Longer Active 05/22/2018 [facility] Docusate Sodium 100 MG Oral Capsule [Colace] 100 mg = 1 cap, PO, BID, PRN as needed for constipation, # 14 cap, 0 Refill(s), Pharmacy: [facility] [id number] No Longer Active 05/22/2018 [facility] Acetaminophen 300 MG / Codeine Phosphate 30 MG Oral Tablet [Tylenol with Codeine #3] 1 tab, PO, Q6H, PRN Pain Score 6-10, X 5 day, # 20 tab, 0 Refill(s) No Longer Active 05/22/2018 [facility] Docusate Sodium 100 MG Oral Capsule [Colace] Notes: (Same as: Colace) (Do Not Crush) Inactive 05/22/2018 [facility] Acetaminophen 325 MG / Hydrocodone Nereyda trate 5 MG Oral Tablet [[place] 5/325] Notes: (Same as: [place] 325/5) Do not ex ceed 4gm/day of acetaminophen. No Longer Activ e 05/21/2018 [facility] vancomycin + Sodium Chloride 0.9% IV 250 mL 2001 mg: infuse over 2.5 hours For adult patients only: Round to nearest 250 mg per Medical Staff approval MEDICATION WASTE Product Size: 1000 mg Product Wasted: ___ mg No Longer Active 05/20/2018 [facility] vancomycin 2001 mg: infuse ov er 2.5 hours For adult patients only: Round to nearest 250 mg per Medical Staff approval MEDICATION WASTE Product Size: 1000 mg Product Wasted: ___ mg No Longer Active 05/19/2018 [facility] vancomycin + Sodium Chloride 0.9% IV 100 mL Notes: TIME CRITICAL MEDICATION (Same As: Vancocin) For adult patients only: Round to nearest 250 mg per Medical Staff approval Inactive 05/19/2018 [facility] Ceftriaxone Notes: (Same As: Nikko hopper). MEDICATION WASTE Product Size: 2000 mg Product Wasted: ___ mg No Longer Active 05/19/2018 [facility] Phenergan Notes: (Same as: Phe nergan) Inactive 05/19/2018 [facility] Morphine 2 mg, 1 mL, Route: IV P, Drug form: SOLN, ONCE, Dosing Weight 120.909, kg, Start date: 05/18/18 23:11:00 CDT, Stop date: 05/18/18 23:11:00 CDT Inactive 05/19/2018 [facility] morphine Sulfate Notes: (Same as:MORPhine Sulfate) Inactive 05/19/2018 [facility] Acetaminophen 300 MG / Codeine Phosphate 30 MG Oral Tablet [Tylenol with Codeine #3] Notes: Do not exceed 4gm/day of acetamin ophen. (Same as: Tylenol with Codeine # 3) No Longer Active 05/18/2018 [facility] Meperidine Notes: (Same As: De merol) Inactive 05/18/2018 [facility] Diphenhydramine Notes: (Same a s: Benadryl) Inactive 05/18/2018 [facility] Ondansetron Notes: (Same as: Kathy diaz) MEDICATION WASTE Product Size: 4 mg Product Wasted: ___ mg Inactive 05/18/2018 [facility] Promethazine 6.25 mg, Route: I VPB, ONCE, Dosing Weight 120.909, kg, PRN Nausea & Vomiting, Start date: 05/18/18 13:51:00 CDT Inactive 05/18/2018 [facility] Naloxone Notes: Same as Narcan Inactive 05/18/2018 [facility] Hydromorphone Notes: Same as: Dilaudid Inactive 05/18/2018 [facility] Fentanyl 50 microgram, Route: IVP, Q5Min, Dosing Weight 120.909, kg, PRN Pain Score 7-10, Priority: Routine, Start date: 05/18/18 13:51:00 CDT, Duration: 2 doses or times, Stop date: Limited # of times Inactive 05/18/2018 [facility] Flumazenil Notes: (Same as: Ro mazicon) Inactive 05/18/2018 [facility] Albuterol 0.83 MG/ML Inhalant Solution Notes: SEE RT DOCUMENTATION (Same as: Proventil) Inactive 05/18/2018 [facility] Ketorolac 4 days MEDICA TION WASTE Product Size: 30 mg Product Wasted: ___ mg Inactive 05/18/2018 [facility] Labetalol Notes: (Same as: Nor modyne, Trandate) Push over 2 minutes Give bolus over 2-3 minutes. Inactive 05/18/2018 [facility] Hydralazine Notes: (Same as: A presoline) Push over 5 minutes Inactive 05/18/2018 [facility] Acetaminophen Notes: Max aceta minophen 4000 mg/day (4 gm/day). (Same as: Tylenol Extra Strength) Inactive 05/18/2018 [facility] Oxycodone Notes: (Same as: Jessy icodone) Inactive 05/18/2018 [facility] lidocaine (ANES) Route: IV, Dr ug form: INJ, ONCE, Stop date: 05/18/18 13:43:00 CDT Inactive 05/18/2018 [facility] ondansetron (ANES) Route: IV, Drug form: INJ, ONCE, Stop date: 05/18/18 13:43:00 CDT Inactive 05/18/2018 [facility] propofol (ANES) Route: IV, Juan g form: INJ, ONCE, Stop date: 05/18/18 13:43:00 CDT Inactive 05/18/2018 [facility] dexamethasone (ANES) Route: IV , Drug form: INJ, ONCE, Stop date: 05/18/18 13:43:00 CDT Inactive 05/18/2018 [facility] ketOROLAC (ANES) IV, ONCE Inactive 05/18/2018 [facility] fentaNYL (ANES) Route: IV, Juan g form: INJ, ONCE, Stop date: 05/18/18 13:43:00 CDT Inactive 05/18/2018 [facility] midazolam (ANES) Route: IV, Dr ug form: SOLN, ONCE, Stop date: 05/18/18 13:43:00 CDT Inactive 05/18/2018 [facility] vancomycin (ANES) 1000 mg Rout e: IV, Drug form: INJ, Start date: 05/18/18 13:16:00 CDT, Stop date: 05/18/18 14:16:00 CDT Inactive 05/18/2018 [facility] Lactated Ringers Injection IV (ANES) 1000 mL Route: IV, Total Volume: 1,000, Start date: 05/18/18 13:16:00 CDT, Stop date: 05/18/18 14:16:00 CDT Inactive 05/18/2018 [facility] Sodium Chloride 0.9% IV 1,000 mL 1,000 mL, Rate: 25 ml/hr, Infuse over: 40 hr, Route: IV, Dosing Weight 120.909 kg, Total Volume: 1,000, Start date: 05/18/18 13:01:00 CDT, Duration: 30 day, Stop date: 06/17/18 13:00:00 CDT, 2.41, m2 Inactiv e 05/18/2018 [facility] Calcium Chloride 0.0014 MEQ/ML / Potassi um Chloride 0.004 MEQ/ML / Sodium Chloride 0.103 MEQ/ML / Sodium Lactate 0.028 MEQ/ML Injectable Solution 1,000 mL, Rate: 25 ml/hr, Infuse over: 4 0 hr, Route: IV, Dosing Weight 120.909 kg, Total Volume: 1,000, Start date: 05/18/18 13:01:00 CDT, Duration: 30 day, Stop date: 06/17/18 13:00:00 CDT, 2.41, m2 Inactive 05/18/2018 [facility] vancomycin + Sodium Chloride 0.9% IV 250 mL 1,000 mg, Route: IVPB, [id number], Dosing Weight 119.091, kg, Start date: 05/17/18 14:00:00 CDT, Duration: 7 day, Stop date: 05/24/18 2:00:00 CDT, ABX Indication: Skin/Soft Tissue Infection No Longer Active 05/17/2018 [facility] influenza virus vaccine, inactivated Notes: (Same as: Fluzone Quadrivalent, Fluarix Quadrivalent) For 3 years of age and older (0.5 mL IM) Shake well before use N o Longer Active 05/17/2018 [facility] Vancomycin 1,000 mg, Route: IV PB, Drug form: INJ, [id number], Dosing Weight 119.091, kg, Start date: 05/17/18 3:00:00 CDT, Duration: 7 day, Stop date: 05/23/18 15:00:00 CDT, ABX Indication: Pneumonia Inactive 05/17/2018 [facility] Enoxaparin Notes: (Same as: Lo venox) No Longer Active 05/17/2018 [facility] Saline Flush 0.9% Notes: (Same as: BD Posiflush) No Longer Active 05/17/2018 [facility] Lactated Ringers IV 1,000 mL 1 ,000 mL, Rate: 75 ml/hr, Infuse over: 13.3 hr, Route: IV, Dosing Weight 119.091 kg, Total Volume: 1,000, Start date: 05/17/18 2:46:00 CDT, Duration: 30 day, Stop date: 06/16/18 2:45:00 CDT, 2.39, m2 No Longer Active 05/17/2018 [facility] Ondansetron Notes: (Same as: Kathy diaz) MEDICATION WASTE Product Size: 4 mg Product Wasted: ___ mg No Longer Active 05/17/2018 [facility] Acetaminophen Notes: Do not ex ceed 4 gm/day. (Same as: Tylenol) No Longer Active 05/17/2018 [facility] Morphine 2 mg, 1 mL, Route: IV P, Drug form: SOLN, Q4H, Dosing Weight 119.091, kg, PRN Pain Score 7-10, Start date: 05/17/18 2:46:00 CDT, Duration: 30 day, Stop date: 06/16/18 2:45:00 CDT No Longer Active 05/17/2018 [facility] Ondansetron Notes: (Same as: Kathy diaz) MEDICATION WASTE Product Size: 4 mg Product Wasted: ___ mg Inactive 05/17/2018 [facility] Morphine Notes: (Same as:MORPh ine Sulfate) Inactive 05/17/2018 [facility] Vancomycin 2001 mg: infuse ov er 2.5 hours For adult patients only: Round to nearest 250 mg per Medical Staff approval MEDICATION WASTE Product Size: 1000 mg Product Wasted: ___ mg Inactive 05/17/2018 [facility] Methocarbamol 750 MG Oral Tablet [Robaxin] 750 mg = 1 tab, PO, TID, PRN as needed for pain, X 7 day, # 30 tab, 0 Refill(s) Active 01/13/2018 [facility] tramadol hydrochloride 50 MG Oral Tablet 50 mg = 1 tab, PO, Q6H, PRN Pain, not to exceed 400 mg/day, X 5 day, # 24 tab, 0 Refill(s) Active 01/13/2018 [facility] ibuprofen 800 mg oral tablet 8 00 mg = 1 tab, PO, Q8H, PRN Fever or Pain, Take with food, X 10 day, # 30 tab, 0 Refill(s) Active 01/13/2018 [facility] Acetaminophen 325 MG / Hydrocodone Nereyda trate 7.5 MG Oral Tablet [[place] 7.5/325] Notes: Same as [place] 325-7.5mg Do not exceed 4gm/day of acetaminophen. Inactive 01/13/2018 [facility] Valium Notes: (Same as: Valium) Inactive 01/13/2018 [facility] Ketorolac 4 days MEDICA TION WASTE Product Size: 30 mg Product Wasted: ___ mg Inactive 01/13/2018 [facility] Tylenol Notes: Do not exceed 4 gm/day. (Same as: Tylenol) Inactive 01/12/2018 [facility] Buspirone Notes: (Same As: BuS par) Inactive 12/31/2016 [facility] Phenergan Notes: (Same as: Phe nergan) Inactive 12/31/2016 [facility] Phenergan 25 mg oral tablet 25 mg, PO, Q6H, PRN Nausea & Vomiting, X 5 day, # 20 tab, 0 Refill(s), Pharmacy: [facility] [id number] Active 12/31/2016 [facility] Sodium Chloride 0.154 MEQ/ML Injectable Solution 1,000 mL, Rate: 150 ml/hr, Infuse over: 6.7 hr, Route: IV, Dosing Weight 109 kg, Total Volume: 1,000, Start date: 12/31/16 9:30:00 CDT, Duration: 30 day, Stop date: 01/30/17 9:29:00 CDT Inactive 12/31/2016 [facility] Trazodone Notes: (Same As: Hawk yrel) Inactive 12/31/2016 [facility] Cipro Notes: May interfere w/e nteral feedings - Take 1 hr before or 2 hrs after antacids, dairy pdt & minerals. On empty stomach. Inactive 12/31/2016 [facility] Flagyl Notes: (Same as: Flagyl ) Take with food/ avoid alcohol Inactive 12/31/2016 [facility] Fluoxetine Notes: (Same as: Pr ozac) Inactive 12/31/2016 [facility] Levsin SL Notes: (Same as: Lev sin) Take 30 min before meal Inactive 12/31/2016 [facility] Promethazine Notes: Do not giv e IV push. (Same as: Phenergan) Inactive 12/31/2016 [facility] Zofran 4 mg, Route: IVP, Drug form: INJ, ONCE, Dosing Weight 109.091, kg, Priority: STAT, Start date: 12/31/16 4:33:00 CDT, Stop date: 12/31/16 4:33:00 CDT Inactive 12/31/2016 [facility] Morphine 4 mg, Route: IVP, ONC E, Dosing Weight 109.091, kg, Priority: STAT, Start date: 12/31/16 4:30:00 CDT, Stop date: 12/31/16 4:30:00 CDT Inactive 12/31/2016 [facility] Rocephin Notes: (Same As: Roctimo phin). Use with 100 mL NS and infuse over 30 min MEDICATION WASTE Product Size: 1000 mg Product Wasted: ___ mg Inactive 12/31/2016 [facility] Ondansetron Notes: (Same as: Kathy diaz) MEDICATION WASTE Product Size: 4 mg Product Wasted: ___ mg No Longer Active 12/31/2016 [facility] Morphine Notes: (Same as:MORPh ine Sulfate) No Longer Active 12/31/2016 [facility] Saline Flush 0.9% Notes: (Same as: BD Posiflush) No Longer Active 12/31/2016 [facility] Sodium Chloride 0.154 MEQ/ML Injectable Solution 1,000 mL, 2,000 ml/hr, Infuse Over: 30 minutes, Route: IV, 1,000, Drug form: INJ, ONCE, Priority: STAT, Dosing Weight 109.091 kg, Start date: 12/30/16 23:55:00 CDT, Duration: 1 doses or times, Stop date: 12/30/16 23:55:00 CDT No Longer Active 12/31/2016 [facility] Ciprofloxacin 500 MG Oral Tablet [Cipro] 500 mg = 1 tab, PO, Q12H, X 7 day, # 14 tab, 0 Refill(s), Pharmacy: [facility] [id number] Active 12/25/2016 [facility] Acetaminophen 300 MG / Codeine Phosphate 30 MG Oral Tablet [Tylenol with Codeine #3] 1 - 2 tab, PO, Q4H, PRN Pain, X 2 day, # 10 tab, 0 Refill(s) No Longer Active 12/25/2016 [facility] Metronidazole 500 MG Oral Tablet [Flagyl] 500 mg = 1 tab, PO, BID, X 7 day, # 14 tab, 0 Refill(s), Pharmacy: [facility] [id number] Active 12/25/2016 [facility] Sodium Chloride 0.154 MEQ/ML Injectable Solution 500 mL, 500 ml/hr, Infuse Over: 1 hr, Route: IV, 500, Drug form: INJ, ONCE, Priority: STAT, Dosing Weight 109.091 kg, Start date: 12/25/16 17:53:00 CDT, Duration: 1 doses or times, Stop date: 12/25/16 17:53:00 CDT Inactive 12/25/2016 [facility] Acetaminophen 300 MG / Codeine Phosphate 30 MG Oral Tablet [Tylenol with Codeine #3] Notes: Do not exceed 4gm/day of acetamin ophen. (Same as: Tylenol with Codeine # 3) Inactive 12/25/2016 [facility] Flagyl Notes: (Same as: Flagyl ) Avoid alcohol. Inactive 12/25/2016 [facility] Cipro Notes: Do not refrigerate Inactive 12/25/2016 [facility] Saline Flush 0.9% Notes: (Same as: BD Posiflush) Inactive 12/25/2016 [facility] Famotidine 40 MG Oral Tablet [Pepcid] 40 mg = 1 tab, PO, Daily, # 30 tab, 0 Refill(s) Active 07/20/2016 [facility] Sucralfate 1000 MG Oral Tablet [Carafate] 1 gm = 1 tab, PO, TID, # 90 tab, 0 Refill(s) Active 07/20/2016 [facility] Phenergan 25 mg oral tablet 25 mg = 1 tab, PO, Q4H, PRN Nausea, X 5 day, # 30 tab, 0 Refill(s) Active 07/20/2016 [facility] Diflunisal 500 MG Oral Tablet [Dolobid] 500 mg = 1 tab, PO, Q8H, # 90 tab, 0 Refill(s) Active 07/20/2016 [facility] Zofran 4 mg, Route: IVP, Drug form: INJ, ONCE, Dosing Weight 104.545, kg, Priority: STAT, Start date: 07/19/16 21:44:00 MANAGER BOOK, Stop date: 07/19/16 21:44:00 MANAGER BOOK Inactive 07/20/2016 [facility] Ketorolac 30 mg, Route: IVP, D rug form: INJ, ONCE, Dosing Weight 104.545, kg, Priority: STAT, Start date: 07/19/16 21:28:00 MANAGER BOOK, Stop date: 07/19/16 21:28:00 MANAGER BOOK Inactive 07/20/2016 [facility] Zofran Notes: (Same as: Zoan ) MEDICATION WASTE Product Size: 4 mg Product Wasted: ___ mg Inactive 07/20/2016 [facility] Famotidine 20 MG Oral Tablet [Pepcid] 20 mg, 1 tab, Route: PO, ONCE, Dosing Weight 104.545, kg, Start date: 07/19/16 19:40:00 MANAGER BOOK, Stop date: 07/19/16 19:40:00 MANAGER BOOK Inactive 07/20/2016 [facility] Sodium Chloride 0.154 MEQ/ML Injectable Solution 1,000 mL, 1,000 ml/hr, Infuse Over: 1 hr, Route: IV, 1,000, Drug form: INJ, ONCE, Priority: STAT, Dosing Weight 104.545 kg, Start date: 07/19/16 19:40:00 MANAGER BOOK, Duration: 1 doses or times, Stop date: 07/19/16 19:40:00 MANAGER BOOK Inactive 07/20/2016 [facility] GI cocktail 30 mL, Route: PO, Dosing Weight 104.545, kg, ONCE, STAT, Start date: 07/19/16 19:39:00 MANAGER BOOK, Stop date: 07/19/16 19:39:00 MANAGER BOOK Inactive 07/20/2016 [facility] Carafate Notes: May interfere w/enteral feeds - Take 1 hr before or 2 hr after antacids, dairy pdt, meals & minerals - On empty stomach. (Same As: Carafate) Inactive 07/20/2016 [facility] Cyclobenzaprine hydrochloride 10 MG Oral Tablet [Flexeril] 10 mg, PO, TID, PRN Muscle Spasm, X 10 d ay, # 30 tab, 0 Refill(s) Active 04/23/2016 [facility] tramadol hydrochloride 50 MG Oral Tablet 50 mg, Route: PO, Drug form: TAB, ONCE, Dosing Weight 94.091, kg, Priority: STAT, Start date: 04/23/16 1:34:00 CDT, Stop date: 04/23/16 1:34:00 CDT Inactive 04/23/2016 [facility] Valium 10 mg, Route: PO, ONCE, Dosing Weight 94.091, kg, Start date: 04/23/16 1:33:00 CDT, Stop date: 04/23/16 1:33:00 CDT Inactive 04/23/2016 [facility] Ketorolac 60 mg, Route: IM, Dr del [place]o form: INJ, ONCE, Dosing Weight 94.091, kg, Priority: STAT, Start date: 04/23/16 1:33:00 CDT, Stop date: 04/23/16 1:33:00 CDT Inactive 04/23/2016 [facility] Methocarbamol 750 MG Oral Tablet [Robaxin] 750 mg = 1 tab, PO, TID, PRN as needed for pain, X 10 day, # 30 tab, 0 Refill(s) Active 04/16/2016 [facility] Acetaminophen 300 MG / Codeine Phosphate 30 MG Oral Tablet [Tylenol with Codeine #3] 1 - 2 tab, PO, Q4H, PRN Pain, X 2 day, # 24 tab, 0 Refill(s) No Longer Active 04/16/2016 [facility] Flexeril 10 mg, Route: PO, ONC E, Dosing Weight 103.182, kg, Priority: STAT, Start date: 04/16/16 3:20:00 CDT, Stop date: 04/16/16 3:20:00 CDT Inactive 04/16/2016 [facility] Zofran ODT 4 mg, Route: PO, Dr del toro form: TABDIS, ONCE, Dosing Weight 103.182, kg, Priority: STAT, Start date: 04/16/16 2:09:00 CDT, Stop date: 04/16/16 2:09:00 CDT Inactive 04/16/2016 [facility] Dilaudid 1 mg, Route: IM, ONCE , Dosing Weight 103.182, kg, Priority: STAT, Start date: 04/16/16 2:09:00 CDT, Stop date: 04/16/16 2:09:00 CDT Inactive 04/16/2016 [facility] promethazine 12.5 mg oral tablet 12.5 mg = 1 tab, PO, Q6H, PRN Nausea & Vomiting, X 5 day, # 20 tab, 0 Refill(s) Active 04/14/2016 [facility] Hyoscyamine Sulfate 0.125 MG Sublingual Tablet [Levsin ] 0.125 mg = 1 tab, SL, Q6H, PRN abdominal spasm, # 28 tab, 0 Refill(s) Active 04/14/2016 [facility] omeprazole 40 mg oral delayed release capsule 40 mg = 1 cap, PO, Daily, # 30 cap, 0 Refill(s) Active 04/14/2016 [facility] Promethazine Notes: Do not giv e IV push. (Same as: Phenergan) Inactive 04/14/2016 [facility] GI cocktail 30 mL, Route: PO, Dosing Weight 103.182, kg, ONCE, STAT, Start date: 04/14/16 2:12:00 CDT, Stop date: 04/14/16 2:12:00 CDT Inactive 04/14/2016 [facility] pantoprazole 40 mg, Route: IVP , ONCE, Dosing Weight 103.182, kg, Priority: STAT, Start date: 04/14/16 2:12:00 CDT, Stop date: 04/14/16 2:12:00 CDT Inactive 04/14/2016 [facility] Morphine 4 mg, Route: IVP, Juan g form: INJ, ONCE, Dosing Weight 103.182, kg, Priority: STAT, Start date: 04/14/16 0:57:00 CDT, Stop date: 04/14/16 0:57:00 CDT Inactive 04/14/2016 [facility] pantoprazole 40 mg, Route: IVP , ONCE, Dosing Weight 103.182, kg, For IV push reconstitute with 10 ml 0.9% sodium chloride and push over at least 3 minutes, Priority: STAT, Start date: 04/14/16 0:57:00 CDT, Stop date: 04/14/16 0:57:00 CDT Inactive 04/14/2016 [facility] Ondansetron 4 mg, Route: IVP, ONCE, Dosing Weight 103.182, kg, Priority: STAT, Start date: 04/14/16 0:57:00 CDT, Stop date: 04/14/16 0:57:00 CDT Inactive 04/14/2016 [facility] Sodium Chloride 0.154 MEQ/ML Injectable Solution 1,000 mL, 2,000 ml/hr, Infuse Over: 30 minutes, Route: IV, ONCE, Priority: STAT, Dosing Weight 103.182 kg, Start date: 04/14/16 0:57:00 CDT, Duration: 1 doses or times, Stop date: 04/14/16 0:57:00 CDT Inactive 04/14/2016 [facility] Saline Flush 0.9% Notes: (Same as: BD Posiflush) Inactive 04/14/2016 [facility] Reglan 10 mg, Route: IVP, Drug form: INJ, ONCE, Dosing Weight 100.455, kg, Priority: STAT, Start date: 02/24/16 1:09:00 CDT, Stop date: 02/24/16 1:09:00 CDT Inactive 02/24/2016 [facility] Levsin Notes: (Same as: Dixie ) MEDICATION WASTE Product Size: 0.5 mg Product Wasted: ___ mg Inactive 02/24/2016 [facility] Dicyclomine Hydrochloride 20 MG Oral Tablet [Bentyl] 20 mg = 1 tab, PO, QID, # 28 tab, 0 Refill(s) Active 02/24/2016 [facility] Metoclopramide 10 MG Oral Tablet [Reglan] 10 mg = 1 tab, PO, QID-Before Meals, X 10 day, # 40 tab, 0 Refill(s) Active 02/24/2016 [facility] Morphine 4 mg, Route: IVP, Juan g form: INJ, ONCE, Dosing Weight 100.455, kg, Priority: STAT, Start date: 02/24/16 0:09:00 CDT, Stop date: 02/24/16 0:09:00 CDT Inactive 02/24/2016 [facility] Magnesium Sulfate 1 gm, Route: IV, ONCE, Dosing Weight 100.455, kg, Start date: 02/23/16 23:50:00 CDT, Stop date: 02/23/16 23:50:00 CDT No Longer Active 02/24/2016 [facility] Zofran 4 mg, Route: IVP, Drug form: INJ, ONCE, Dosing Weight 100.455, kg, Priority: STAT, Start date: 02/23/16 23:34:00 CDT, Stop date: 02/23/16 23:34:00 CDT Inactive 02/24/2016 [facility] Sodium Chloride 0.154 MEQ/ML Injectable Solution 1,000 mL, 1,000 ml/hr, Infuse Over: 1 hr, Route: IV, ONCE, Priority: STAT, Dosing Weight 100.455 kg, Start date: 02/23/16 23:34:00 CDT, Duration: 1 doses or times, Stop date: 02/23/16 23:34:00 CDT Inactive 02/24/2016 [facility] Saline Flush 0.9% Notes: (Same as: BD Posiflush) No Longer Active 02/24/2016 [facility] Morphine Notes: (Same as:MORPh ine Sulfate) Inactive 01/17/2016 [facility] Hyoscyamine Sulfate 0.125 MG Oral Tablet [Levsin] 0.125 mg = 1 tab, PO, QID, PRN Spasm, # 40 tab, 0 Refill(s) Active 01/17/2016 [facility] Ondansetron 4 MG Disintegrating Tablet [Zofran] 4 mg = 1 tab, PO, BID, PRN Nausea and Vomiting, Dissolve tab under tongue, X 5 day, # 10 tab, 0 Refill(s) Active 01/17/2016 [facility] Bentyl 20 mg, Route: IM, ONCE, Dosing Weight 100.455, kg, Start date: 01/16/16 23:00:00 CDT, Stop date: 01/16/16 23:00:00 CDT Inactive 01/17/2016 [facility] Zofran 4 mg, Route: IVP, Drug form: INJ, ONCE, Dosing Weight 100.455, kg, Priority: STAT, Start date: 01/16/16 22:59:00 CDT, Stop date: 01/16/16 22:59:00 CDT Inactive 01/17/2016 [facility] Morphine Notes: (Same as:MORPh ine Sulfate) Inactive 01/17/2016 [facility] Ondansetron Notes: (Same as: Kathy diaz) MEDICATION WASTE Product Size: 4 mg Product Wasted: ___ mg Inactive 01/17/2016 [facility] Famotidine Notes: (Same as: Pe pcid) Can be dilute in 5- 10cc NS IVP: Slow IV push over at least 2 minutes. Inactive 01/17/2016 [facility] Sodium Chloride 0.154 MEQ/ML Injectable Solution 1,000 mL, 1,000 ml/hr, Infuse Over: 1 hr, Route: IV, 1,000, Drug form: INJ, ONCE, Priority: STAT, Dosing Weight 100.455 kg, Start date: 01/16/16 21:40:00 CDT, Duration: 1 doses or times, Stop date: 01/16/16 21:40:00 CDT Inactive 01/17/2016 [facility] Promethazine Hydrochloride 25 MG Oral Ta blet [Phenergan] 25 mg = 1 tab, PO, Q6H, PRN Nausea, X 4 day, # 15 tab, 0 Refill(s) Active 10/13/2015 [facility] Ranitidine 150 MG Oral Tablet [Zantac] 150 mg = 1 tab, PO, BID, # 60 tab, 0 Refill(s) Active 10/13/2015 [facility] Dicyclomine Hydrochloride 20 MG Oral Tablet [Bentyl] 20 mg = 1 tab, PO, QID-Before Meals, # 40 tab, 0 Refill(s) Active 10/13/2015 [facility] Promethazine Notes: Do not giv e IV push. (Same as: Phenergan) Inactive 10/13/2015 [facility] Sodium Chloride 0.154 MEQ/ML Injectable Solution 1,000 mL, 1000 ml/hr, Infuse Over: 1 hr, Route: IV, 1,000, Drug form: INJ, ONCE, Priority: STAT, Dosing Weight 101.818 kg, Start date: 10/13/15 3:32:00, Duration: 1 doses or times, Stop date: 10/13/15 3:32:00 Inactive 10/13/2015 [facility] Morphine Notes: (Same as:MORPh ine Sulfate) Inactive 10/13/2015 [facility] Ondansetron Notes: (Same as: Kathy diaz) MEDICATION WASTE Product Size: 4 mg Product Wasted: ___ mg Inactive 10/13/2015 [facility] Famotidine Notes: (Same as: Pe pcid) Can be dilute in 5- 10cc NS IVP: Slow IV push over at least 2 minutes. Inactive 10/13/2015 [facility] GI cocktail Notes: [place] = antacid with simethicone 22.5 mL - lidocaine viscous 7.5 mL Inactive 10/13/2015 [facility] Saline Flush 0.9% Notes: (Same as: BD Posiflush) Inactive 10/13/2015 [facility] Sodium Chloride 0.154 MEQ/ML Injectable Solution 1,000 mL, 1000 ml/hr, Infuse Over: 1 hr, Route: IV, 1,000, Drug form: INJ, ONCE, Priority: STAT, Dosing Weight 101.818 kg, Start date: 10/13/15 2:13:00, Duration: 1 doses or times, Stop date: 10/13/15 2:13:00 Inactive 10/13/2015 [facility] Diphenhydramine 25 mg, Route: IVP, ONCE, Dosing Weight 107.273, kg, Priority: STAT, Start date: 07/04/15 0:52:00, Stop date: 07/04/15 0:52:00 Inactive 07/04/2015 [facility] Famotidine 20 mg, Route: IVP, ONCE, Dosing Weight 107.273, kg, Priority: STAT, Start date: 07/04/15 0:52:00, Stop date: 07/04/15 0:52:00 Inactive 07/04/2015 [facility] Morphine 4 mg, Route: IVP, ONC E, Dosing Weight 107.273, kg, Priority: STAT, Start date: 07/04/15 0:52:00, Stop date: 07/04/15 0:52:00 Inactive 07/04/2015 [facility] Sodium Chloride 0.154 MEQ/ML Injectable Solution 1,000 mL, 1,000 ml/hr, Infuse Over: 1 hr, Route: IV, ONCE, Priority: STAT, Dosing Weight 107.273 kg, Start date: 07/04/15 0:52:00, Duration: 1 doses or times, Stop date: 07/04/15 0:52:00 Inactive 07/04/2015 [facility] GI cocktail 30 mL, Route: PO, Dosing Weight 107.273, kg, ONCE, STAT, Start date: 07/04/15 0:52:00, Stop date: 07/04/15 0:52:00 Inactive 07/04/2015 [facility] Acetaminophen 325 MG / Hydrocodone Nereyda trate 5 MG Oral Tablet Notes: (Same as: [place] 325/5) Do not ex ceed 4gm/day of acetaminophen. Inactive 05/17/2015 [facility] Ibuprofen 600 mg, Route: PO, O NCE, Dosing Weight 112.273, kg, Priority: STAT, Start date: 05/17/15 2:14:00, Stop date: 05/17/15 2:14:00 Inactive 05/17/2015 [facility] omeprazole 40 mg oral delayed release capsule 40 mg = 1 cap, PO, Daily, # 30 cap, 0 Refill(s) Active 05/15/2015 [facility] Dicyclomine Hydrochloride 20 MG Oral Tablet [Bentyl] 20 mg = 1 tab, PO, QID-Before Meals, # 28 tab, 0 Refill(s) Active 05/15/2015 [facility] Ondansetron 4 MG Oral Tablet [Zofran] 4 mg = 1 tab, PO, TID, X 5 day, # 15 tab, 0 Refill(s) Active 05/15/2015 [facility] Acetaminophen 325 MG / Hydrocodone Nereyda trate 7.5 MG Oral Tablet [[place] 7.5/325] 1 tab, Route: PO, Drug Form: TAB, Dosing Weight 122.727, kg, ONCE, STAT, Start date: 05/15/15 7:15:00, Stop date: 05/15/15 7:15:00 Inactive 05/15/2015 [facility] Ketorolac 30 mg, Route: IVP, D rug form: INJ, ONCE, Dosing Weight 122.727, kg, Priority: STAT, Start date: 05/15/15 7:14:00, Stop date: 05/15/15 7:14:00 Inactiv e 05/15/2015 [facility] Zofran 4 mg, Route: IVP, Drug form: INJ, ONCE, Dosing Weight 122.727, kg, Priority: STAT, Start date: 05/15/15 6:28:00, Stop date: 05/15/15 6:28:00 Inactive 05/15/2015 [facility] Morphine 4 mg, Route: IVP, Juan g form: INJ, ONCE, Dosing Weight 122.727, kg, Priority: STAT, Start date: 05/15/15 4:19:00, Stop date: 05/15/15 4:19:00 Inactive 05/15/2015 [facility] Zofran 4 mg, Route: IVP, Drug form: INJ, ONCE, Dosing Weight 122.727, kg, Priority: STAT, Start date: 05/15/15 4:19:00, Stop date: 05/15/15 4:19:00 Inactive 05/15/2015 [facility] Sodium Chloride 0.154 MEQ/ML Injectable Solution 1,000 mL, 1,000 ml/hr, Infuse Over: 1 Hour, Route: IV, ONCE, Priority: STAT, Dosing Weight 122.727 kg, Start date: 05/15/15 4:19:00, Duration: 1 doses or times, Stop date: 05/15/15 4:19:00 Inactive 05/15/2015 [facility] Metoclopramide 10 MG Oral Tablet [Reglan] 10 mg = 1 tab, PO, QID, PRN Other -See Comment, X 7 day, # 28 tab, 0 Refill(s) Active 02/14/2015 [facility] PlasmaLyte A PH-7.4 1,000 mL 1 ,000 mL, Rate: 2,000 ml/hr, Infuse over: 0.5 hr, Route: IV, Dosing Weight 112.727 kg, Total Volume: 1,000, Start date: 02/14/15 1:11:00, Duration: 1 doses or times, Stop date: 02/14/15 1:40:00 Inactive 02/14/2015 [facility] Benadryl Notes: (Same as: Vikki dryl) Inactive 02/14/2015 [facility] Reglan Notes: (Same as: Reglan) Inactive 02/14/2015 [facility] Ondansetron 4 MG Oral Tablet [Zofran] 4 mg = 1 tab, PO, BID, # 10 tab, 0 Refill(s) Active 09/30/2014 [facility] Morphine 4 mg, Route: IV, Drug form: INJ, ONCE, Dosing Weight 118.182, kg, Start date: 09/30/14 0:32:00, Stop date: 09/30/14 0:32:00 Inactive 09/30/2014 [facility] Morphine 4 mg, Route: IM, Drug form: INJ, ONCE, Dosing Weight 118.182, kg, Priority: STAT, Start date: 09/30/14 0:31:00, Stop date: 09/30/14 0:31:00 Inactive 09/30/2014 [facility] Saline Flush 0.9% Notes: Same as: BD Posiflush Sterile No Longer Active 09/30/2014 [facility] Sodium Chloride 0.154 MEQ/ML Injectable Solution 1,000 mL, Infuse Over: 1 hr, Route: IV, ONCE, Priority: STAT, Dosing Weight 118.182 kg, Start date: 09/29/14 23:25:00, Duration: 1 doses or times, Stop date: 09/29/14 23:25:00 Inactive 09/30/2014 [facility] Allergies, Adverse Reactions, Alerts Substance Category Reaction Severity Reaction type Status Date Reported Comments Source Bactrim Assertion Drug allergy Active [facility] ciprofloxacin Assertion Drug allergy Active [facility] penicillin Assertion Drug allergy Active [facility] clindamycin Assertion Drug allergy Active [facility] Keflex<sup>1, 2</sup> Assertion Drug allergy Active [facility] ceftriaxone in May 2018 hospitalization Rash to Keflex 2013; tolerated ceftriaxone in 2016 [facility] Immunizations Immunization Date Given Site Status Last Updated Comments Source influenza virus vaccine, inactivated 08/25/2018 Right deltoid completed [facility], [facility] [place] Results Order Name Results Value Reference Range Date Interpretation Comments Source TOXICOLOGY Vanco Tr 11.7 03/26/2020 [facility] TOXICOLOGY Vanco Tr TND 2200 03/26/2020 [facility] CHEM PANEL Glucose Lvl 101 70 - 99 03/25/2020 [facility] CHEM PANEL BUN 10 7 - 22 03/25/2020 [facility] CHEM PANEL Creatinine Lvl 0.64 0.50 - 1.40 03/25/2020 [facility] CHEM PANEL Sodium Lvl 137 135 - 145 03/25/2020 [facility] CHEM PANEL Potassium Lvl 4.1 3.5 - 5.1 03/25/2020 [facility] CHEM PANEL Chloride Lvl 104 95 - 109 03/25/2020 [facility] CHEM PANEL CO2 30 24 - 32 03/25/2020 [facility] CHEM PANEL Calcium Lvl 8.4 8.5 - 10.5 03/25/2020 [facility] CHEM PANEL AGAP 7.1 10.0 - 20.0 03/25/2020 [facility] CHEM PANEL eGFR 116 03/25/2020 Result Comment: [...] should be multiplied by the estimated BMI. [facility] TOXICOLOGY Vanco Tr 21.4 03/25/2020 [facility] TOXICOLOGY Vanco Tr TND 1000 03/25/2020 [facility] TOXICOLOGY Vanco Tr 13.7 03/24/2020 [facility] TOXICOLOGY Vanco Tr TND 1100 03/24/2020 [facility] TRIMETHOPRIM+SULFAMETHOXAZOLE:SUSC:PT:ISOLATE:ORDQN:NM C Gram Stain Report No Wbc'S Or Organisms Seen 03/23/2020 [facility] TRIMETHOPRIM+SULFAMETHOXAZOLE:SUSC:PT:ISOLATE:ORDQN:NM C Culture: Aspirate/Body Fluid/Tissue Many Staphylococcus aureus 03/23/2020 [facility] TRIMETHOPRIM+SULFAMETHOXAZOLE:SUSC:PT:ISOLATE:ORDQN:NM C Staphylococcus aureus Staphylococcus aureus 03/23/2020 [facility] CHEM PANEL Glucose Lvl 92 70 - 99 [facility]23[facility] BUN 11 7 - 22 03/23/2020 [facility] CHEM PANEL Creatinine Lvl 0.64 0.50 - 1.40 03/23/2020 [facility] Sodium Lvl 139 135 - 145 03/23/2020 [facility] Potassium Lvl 3.7 3.5 - 5.1 03/23/2020 [facility] Chloride Lvl 107 95 - 109 03/23/2020 [place] CHEM PANEL CO2 28 24 - 32 03/23/2020 [facility] Calcium Lvl 8.2 8.5 - 10.5 03/23/2020 [facility] Albumin Lvl 2.8 3.5 - 5.0 03/23/2020 [place] CHEM PANEL ALT 16 0 - 65 03/23/2020 [place] CHEM PANEL AST 11 0 - 37 03/23/2020 [facility] AGAP 7.7 10.0 - 20.0 03/23/2020 [place] CHEM PANEL B/C Ratio 17 6 - 25 03/23/2020 [place] CHEM PANEL eGFR 117 03/23/2020 Result Comment: [...] should be multiplied by the estimated BMI. [place] CHEM PANEL Total Protein 6.7 6.4 - 8.4 03/23/2020 [facility] Alk Phos 75 39 - 136 03/23/2020 [facility] CHEM PANEL Bili Total 0.5 0.2 - 1.3 03/23/2020 [place] CHEM PANEL Globulin 3.9 2.7 - 4.2 03/23/2020 [facility] A/G Ratio 0.7 0.7 - 1.6 03/23/2020 [facility] HEMATOLOGY WBC 10.2 3.7 - 10.4 03/23/2020 [facility] HEMATOLOGY RBC 4.12 4.20 - 5.40 03/23/2020 [facility] HEMATOLOGY Hgb 12.2 12.0 - 16.0 03/23/2020 [facility] HEMATOLOGY Hct 36.5 36.0 - 48.0 03/23/2020 [facility] HEMATOLOGY MCV 88.6 80.0 - 98.0 03/23/2020 [facility] HEMATOLOGY MCH 29.5 27.0 - 31.0 03/23/2020 [facility] HEMATOLOGY MCHC 33.3 32.0 - 36.0 03/23/2020 [facility] HEMATOLOGY RDW 13.9 11.5 - 14.5 03/23/2020 [facility] HEMATOLOGY Platelet 226 133 - 450 03/23/2020 [facility] HEMATOLOGY MPV 8.3 7.4 - 10.4 03/23/2020 [facility] HEMATOLOGY Segs 63.8 45.0 - 75.0 03/23/2020 [facility] HEMATOLOGY Lymphocytes 21.4 20.0 - 40.0 03/23/2020 [facility] HEMATOLOGY Monocytes 9.2 2.0 - 12.0 03/23/2020 [facility] HEMATOLOGY Eosinophils 4.6 0.0 - 4.0 03/23/2020 [facility] HEMATOLOGY Basophils 1.0 0.0 - 1.0 03/23/2020 [facility] HEMATOLOGY Neutrophils # 6.5 1.5 - 8.1 03/23/2020 [facility] HEMATOLOGY Lymphocytes # 2.2 1.0 - 5.5 03/23/2020 [facility] HEMATOLOGY Monocytes # 0.9 0.0 - 0.8 03/23/2020 [facility] HEMATOLOGY Eosinophils # 0.5 0.0 - 0.5 03/23/2020 [facility] HEMATOLOGY Basophils # 0.1 0.0 - 0.2 03/23/2020 [facility] TOXICOLOGY Vanco Tr 14.1 11/03/2019 [facility] TOXICOLOGY Vanco Tr TND 10:00 11/03/2019 [facility] CHEM PANEL Glucose Lvl 99 70 - 99 11/03/2019 [facility] CHEM PANEL BUN 8 7 - 22 11/03/2019 [facility] CHEM PANEL Creatinine Lvl 0.59 0.50 - 1.40 11/03/2019 [place] CHEM PANEL Sodium Lvl 137 135 - 145 11/03/2019 [facility] CHEM PANEL Potassium Lvl 4.0 3.5 - [...] PANEL ALT 51 0 - 65 11/03/2019 [facility] CHEM PANEL AST 41 0 - 37 11/03/2019 [facility] CHEM PANEL Alk Phos 84 39 - 136 11/03/2019 [facility] CHEM PANEL Bili Total 0.4 0.2 - 1.3 11/03/2019 [facility] CHEM PANEL AGAP 8.0 10.0 - 20.0 11/03/2019 [facility] CHEM PANEL B/C Ratio 14 6 - 25 11/03/2019 [facility] CHEM PANEL Globulin 3.6 2.7 - 4.2 11/03/2019 [facility] CHEM PANEL A/G Ratio 0.8 0.7 - 1.6 11/03/2019 [facility] CHEM PANEL eGFR 121 11/03/2019 Result Comment: [...] should be multiplied by the estimated BMI. [facility] HEMATOLOGY Segs 65.6 45.0 - 75.0 11/03/2019 [facility] HEMATOLOGY Lymphocytes 20.6 20.0 - 40.0 11/03/2019 [facility] HEMATOLOGY Monocytes 8.8 2.0 - 12.0 11/03/2019 [facility] HEMATOLOGY Eosinophils 4.2 0.0 - 4.0 11/03/2019 [facility] HEMATOLOGY Basophils 0.8 0.0 - 1.0 11/03/2019 [facility] HEMATOLOGY Neutrophils # 6.0 1.5 - 8.1 11/03/2019 [facility] HEMATOLOGY Lymphocytes # 1.9 1.0 - 5.5 11/03/2019 [facility] HEMATOLOGY Monocytes # 0.8 0.0 - 0.8 11/03/2019 [facility] HEMATOLOGY Eosinophils # 0.4 0.0 - 0.5 11/03/2019 [facility] HEMATOLOGY Basophils # 0.1 0.0 - 0.2 11/03/2019 [facility] HEMATOLOGY WBC 9.1 3.7 - 10.4 11/03/2019 [facility] RBC 4.27 4.20 - 5.40 11/03/2019 [facility] HEMATOLOGY Hgb 12.4 12.0 - 16.0 11/03/2019 [facility] HEMATOLOGY Hct 38.1 36.0 - 48.0 11/03/2019 [facility] MCV 89.2 80.0 - 98.0 11/03/2019 [facility] MCH 29.0 27.0 - 31.0 11/03/2019 [facility] MCHC 32.5 32.0 - 36.0 11/03/2019 [facility] RDW 13.1 11.5 - 14.5 11/03/2019 [facility] HEMATOLOGY Platelet 210 133 - 450 11/03/2019 [facility] MPV 8.9 7.4 - 10.4 11/03/2019 [facility] SPECIAL CHEMISTRY Hgb A1C 5.3 <=5.6 % 11/03/2019 [facility] CHEM PANEL Glucose Lvl 96 70 - 99 11/02/2019 [facility] CHEM PANEL BUN 9 7 - 22 11/02/2019 [facility] CHEM PANEL Creatinine Lvl 0.70 0.50 - 1.40 11/02/2019 [facility] CHEM PANEL Sodium Lvl 140 135 - 145 11/02/2019 [facility] CHEM PANEL Potassium Lvl 4.0 3.5 - 5.1 11/02/2019 [facility] CHEM PANEL Chloride Lvl 109 95 - 109 11/02/2019 [facility] CHEM PANEL CO2 26 24 - 32 11/02/2019 [facility] CHEM PANEL Calcium Lvl 8.3 8.5 - 10.5 11/02/2019 [facility] CHEM PANEL AGAP 9.0 10.0 - 20.0 11/02/2019 [facility] CHEM PANEL eGFR 114 11/02/2019 Result Comment: [...] should be multiplied by the estimated BMI. [facility] ELECTROLYTES AGAP 10.1 10.0 - 20.0 05/25/2019 [facility] ELECTROLYTES B/C Ratio 20 6 - 25 05/25/2019 [facility] ELECTROLYTES Globulin 4.3 2.7 - 4.2 05/25/2019 [facility] ELECTROLYTES A/G Ratio 0.9 0.7 - 1.6 05/25/2019 [facility] ELECTROLYTES Glucose Lvl 94 70 - 99 05/25/2019 [facility] ELECTROLYTES BUN 13 7 - 22 05/25/2019 [facility] ELECTROLYTES Creatinine Lvl 0.6 6 0.50 - 1.40 05/25/2019 [facility] ELECTROLYTES Sodium Lvl 137 135 - 145 05/25/2019 [facility] ELECTROLYTES Potassium Lvl 4.1 3.5 - 5.1 05/25/2019 [facility] ELECTROLYTES Chloride Lvl 107 95 - 109 05/25/2019 [facility] ELECTROLYTES CO2 24 24 - 32 05/25/2019 [facility] ELECTROLYTES Calcium Lvl 9.3 8.5 - 10.5 05/25/2019 [facility] ELECTROLYTES Total Protein 8.2 6.4 - 8.4 05/25/2019 [facility] ELECTROLYTES Albumin Lvl 3.9 3.5 - 5.0 05/25/2019 [facility] ELECTROLYTES ALT 25 0 - 65 05/25/2019 [facility] ELECTROLYTES AST 14 0 - 37 05/25/2019 [facility] ELECTROLYTES Alk Phos 98 39 - 136 05/25/2019 [facility] ELECTROLYTES Bili Total 0.4 0.2 - 1.3 05/25/2019 [facility] ELECTROLYTES eGFR 116 05/25/2019 Result Comment: The [...] should be multiplied by the estimated BMI. [facility] ENDOCRINOLOGY S Preg Ne gative *NA* (05/25/19 2:19 AM) Negative 05/25/2019 [facility] HEMATOLOGY WBC 14.7 3.7 - 10.4 05/25/2019 [facility] RBC 4.90 4.20 - 5.40 05/25/2019 [facility] Hgb 14.1 12.0 - 16.0 05/25/2019 [facility] Hct 43.2 36.0 - 48.0 05/25/2019 [facility] MCV 88.2 80.0 - 98.0 05/25/2019 [facility] MCH 28.8 27.0 - 31.0 05/25/2019 [facility] MCHC 32.7 32.0 - 36.0 05/25/2019 [facility] RDW 13.2 11.5 - 14.5 05/25/2019 [facility] Platelet 298 133 - 450 05/25/2019 [facility] MPV 8.5 7.4 - 10.4 05/25/2019 [facility] Segs 66.4 45.0 - 75.0 05/25/2019 [facility] Lymphocytes 21.1 20.0 - 40.0 05/25/2019 [facility] Monocytes 7.4 2.0 - 12.0 05/25/2019 [facility] HEMATOLOGY Eosinophils 4.1 0.0 - 4.0 05/25/2019 [facility] HEMATOLOGY Basophils 1.0 0.0 - 1.0 05/25/2019 [facility] Neutrophils # 9.8 1.5 - 8.1 05/25/2019 [facility] Lymphocytes # 3.1 1.0 - 5.5 05/25/2019 [facility] Monocytes # 1.1 0.0 - 0.8 05/25/2019 [facility] HEMATOLOGY Eosinophils # 0.6 0.0 - 0.5 05/25/2019 [facility] HEMATOLOGY Basophils # 0.1 0.0 - 0.2 05/25/2019 [facility] CHEM PANEL Glucose Lvl 105 70 - 99 04/03/2019 [facility] CHEM PANEL BUN 10 7 - 22 04/03/2019 [facility] CHEM PANEL Creatinine Lvl 0.78 0.50 - 1.40 04/03/2019 [facility] CHEM PANEL Sodium Lvl 141 135 - 145 04/03/2019 [facility] CHEM PANEL Potassium Lvl 3.9 3.5 - 5.1 04/03/2019 [facility] CHEM PANEL Chloride Lvl 109 95 - 109 04/03/2019 [facility] CHEM PANEL CO2 25 24 - 32 04/03/2019 [facility] CHEM PANEL Calcium Lvl 8.8 8.5 - 10.5 04/03/2019 [facility] CHEM PANEL eGFR 100 04/03/2019 Result Comment: [...] should be multiplied by the estimated BMI. [facility] CHEM PANEL AGAP 10.9 10.0 - 20.0 04/03/2019 [facility] ENDOCRINOLOGY S Preg Ne gative *NA* (04/03/19 5:11 PM) Negative 04/03/2019 [facility] HEMATOLOGY WBC 11.5 3.7 - 10.4 04/03/2019 [facility] HEMATOLOGY RBC 4.85 4.20 - 5.40 04/03/2019 [facility] HEMATOLOGY Hgb 14.2 12.0 - 16.0 04/03/2019 [facility] HEMATOLOGY Hct 43.0 36.0 - 48.0 04/03/2019 [facility] MCV 88.7 80.0 - 98.0 04/03/2019 [facility] MCH 29.2 27.0 - 31.0 04/03/2019 [facility] MCHC 33.0 32.0 - 36.0 04/03/2019 [facility] RDW 13.3 11.5 - 14.5 04/03/2019 [facility] Platelet 239 133 - 450 04/03/2019 [facility] MPV 8.4 7.4 - 10.4 04/03/2019 [facility] Segs 66.0 45.0 - 75.0 04/03/2019 [facility] Lymphocytes 21.2 20.0 - 40.0 04/03/2019 [facility] HEMATOLOGY Monocytes 8.2 2.0 - 12.0 04/03/2019 [facility] HEMATOLOGY Eosinophils 3.6 0.0 - 4.0 04/03/2019 [facility] HEMATOLOGY Basophils 1.0 0.0 - 1.0 04/03/2019 [facility] HEMATOLOGY Neutrophils # 7.6 1.5 - 8.1 04/03/2019 [facility] Lymphocytes # 2.4 1.0 - 5.5 04/03/2019 [facility] Monocytes # 0.9 0.0 - 0.8 04/03/2019 [facility] HEMATOLOGY Eosinophils # 0.4 0.0 - 0.5 04/03/2019 [facility] Basophils # 0.1 0.0 - 0.2 04/03/2019 [facility] HEMATOLOGY WBC 11.2 3.7 - 10.4 03/24/2019 [facility] HEMATOLOGY Hgb 13.7 12.0 - 16.0 03/24/2019 [facility] MPV 8.9 7.4 - 10.4 03/24/2019 [facility] HEMATOLOGY RBC 4.66 4.20 - 5.40 03/24/2019 [facility] HEMATOLOGY Platelet 252 133 - 450 03/24/2019 [facility] MCH 29.5 27.0 - 31.0 03/24/2019 [facility] MCHC 33.8 32.0 - 36.0 03/24/2019 [facility] RDW 13.7 11.5 - 14.5 03/24/2019 [facility] HEMATOLOGY Hct 40.6 36.0 - 48.0 03/24/2019 [facility] HEMATOLOGY MCV 87.1 80.0 - 98.0 03/24/2019 [facility] HEMATOLOGY Eosinophils 3.3 0.0 - 4.0 03/24/2019 [facility] HEMATOLOGY Monocytes 7.6 2.0 - 12.0 03/24/2019 [facility] HEMATOLOGY Basophils # 0.1 0.0 - 0.2 03/24/2019 [facility] HEMATOLOGY Eosinophils # 0.4 0.0 - 0.5 03/24/2019 [facility] HEMATOLOGY Segs 65.7 45.0 - 75.0 03/24/2019 [facility] Lymphocytes 22.6 20.0 - 40.0 03/24/2019 [facility] HEMATOLOGY Neutrophils # 7.4 1.5 - 8.1 03/24/2019 [facility] Monocytes # 0.8 0.0 - 0.8 03/24/2019 [facility] HEMATOLOGY Basophils 0.8 0.0 - 1.0 03/24/2019 [facility] Lymphocytes # 2.5 1.0 - 5.5 03/24/2019 [facility] CHEM PANEL Procalcitonin Lvl <0.05 0.00 - 0.10 03/24/2019 [facility] CHEM PANEL Lactic Acid Lvl 1.7 0.5 - 2.2 03/23/2019 [facility] CHEM PANEL Lactic Acid Lvl 1.7 0.5 - 2.2 03/23/2019 [facility] ELECTROLYTES AGAP 11.5 10.0 - 20.0 03/23/2019 [facility] ELECTROLYTES eGFR 99 03/23/2019 Result Comment: The [...] should be multiplied by the estimated BMI. [facility] ELECTROLYTES Sodium Lvl 142 135 - 145 03/23/2019 [facility] ELECTROLYTES Calcium Lvl 8.8 8.5 - 10.5 03/23/2019 [facility] ELECTROLYTES CO2 25 24 - 32 03/23/2019 [facility] ELECTROLYTES Chloride Lvl 109 95 - 109 03/23/2019 [facility] ELECTROLYTES Potassium Lvl 3.5 3.5 - 5.1 03/23/2019 [facility] ELECTROLYTES Glucose Lvl 118 70 - 99 03/23/2019 [facility] ELECTROLYTES Creatinine Lvl 0.7 9 0.50 - 1.40 03/23/2019 [facility] ELECTROLYTES BUN 10 7 - 22 03/23/2019 [facility] HEMATOLOGY Monocytes # 0.7 0.0 - 0.8 03/23/2019 [facility] HEMATOLOGY Eosinophils # 0.3 0.0 - 0.5 03/23/2019 [facility] HEMATOLOGY Basophils 1.0 0.0 - 1.0 03/23/2019 [facility] HEMATOLOGY Eosinophils 3.1 0.0 - 4.0 03/23/2019 [facility] HEMATOLOGY Basophils # 0.1 0.0 - 0.2 03/23/2019 [facility] HEMATOLOGY Neutrophils # 8.0 1.5 - 8.1 03/23/2019 [facility] Lymphocytes # 2.1 1.0 - 5.5 03/23/2019 [facility] Lymphocytes 18.5 20.0 - 40.0 03/23/2019 [facility] HEMATOLOGY Monocytes 6.6 2.0 - 12.0 03/23/2019 [facility] HEMATOLOGY Segs 70.8 45.0 - 75.0 03/23/2019 [facility] Platelet 271 133 - 450 03/23/2019 [facility] MPV 8.0 7.4 - 10.4 03/23/2019 [facility] HEMATOLOGY RDW 13.6 11.5 - 14.5 03/23/2019 [facility] MCH 29.3 27.0 - 31.0 03/23/2019 [facility] MCHC 33.3 32.0 - 36.0 03/23/2019 [facility] MCV 88.1 80.0 - 98.0 03/23/2019 [facility] HEMATOLOGY Hgb 14.2 12.0 - 16.0 03/23/2019 [facility] HEMATOLOGY Hct 42.6 36.0 - 48.0 03/23/2019 [facility] HEMATOLOGY RBC 4.84 4.20 - 5.40 03/23/2019 [facility] HEMATOLOGY WBC 11.2 3.7 - 10.4 03/23/2019 [facility] CHEM PANEL Phosphorus 5.1 2.5 - 4.5 03/07/2019 [facility] CHEM PANEL Magnesium Lvl 1.7 1.8 - 2.4 03/07/2019 [facility] ELECTROLYTES AGAP 10.8 10.0 - 20.0 03/07/2019 [facility] ELECTROLYTES eGFR 101 03/07/2019 Result Comment: The [...] should be multiplied by the estimated BMI. [facility] ELECTROLYTES Calcium Lvl 8.8 8.5 - 10.5 03/07/2019 [facility] ELECTROLYTES CO2 29 24 - 32 03/07/2019 [facility] ELECTROLYTES Sodium Lvl 141 135 - 145 03/07/2019 [facility] ELECTROLYTES Potassium Lvl 3.8 3.5 - 5.1 03/07/2019 [facility] ELECTROLYTES BUN 11 7 - 22 03/07/2019 [facility] ELECTROLYTES Creatinine Lvl 0.7 8 0.50 - 1.40 03/07/2019 [facility] ELECTROLYTES Chloride Lvl 105 95 - 109 03/07/2019 [facility] ELECTROLYTES Glucose Lvl 108 70 - 99 03/07/2019 [facility] HEMATOLOGY Platelet 256 133 - 450 03/07/2019 [facility] HEMATOLOGY MPV 8.9 7.4 - 10.4 03/07/2019 [facility] HEMATOLOGY RDW 13.6 11.5 - 14.5 03/07/2019 [facility] HEMATOLOGY MCHC 33.8 32.0 - 36.0 03/07/2019 [facility] HEMATOLOGY MCV 86.3 80.0 - 98.0 03/07/2019 [facility] HEMATOLOGY MCH 29.2 27.0 - 31.0 03/07/2019 [facility] HEMATOLOGY Hgb 13.5 12.0 - 16.0 03/07/2019 [facility] HEMATOLOGY RBC 4.63 4.20 - 5.40 03/07/2019 [facility] HEMATOLOGY Hct 39.9 36.0 - 48.0 03/07/2019 [facility] HEMATOLOGY WBC 10.0 3.7 - 10.4 03/07/2019 [facility] HEMATOLOGY Basophils # 0.1 0.0 - 0.2 03/07/2019 [facility] HEMATOLOGY Eosinophils # 0.4 0.0 - 0.5 03/07/2019 [facility] HEMATOLOGY Eosinophils 4.4 0.0 - 4.0 03/07/2019 [facility] HEMATOLOGY Lymphocytes # 2.7 1.0 - 5.5 03/07/2019 [facility] HEMATOLOGY Basophils 0.7 0.0 - 1.0 03/07/2019 [facility] HEMATOLOGY Monocytes # 0.7 0.0 - 0.8 03/07/2019 [facility] HEMATOLOGY Neutrophils # 6.1 1.5 - 8.1 03/07/2019 [facility] HEMATOLOGY Monocytes 6.7 2.0 - 12.0 03/07/2019 [facility] HEMATOLOGY Lymphocytes 26.7 20.0 - 40.0 03/07/2019 [facility] HEMATOLOGY Segs 61.5 45.0 - 75.0 03/07/2019 [facility] CHEM PANEL Phosphorus 4.2 2.5 - 4.5 03/06/2019 [facility] CHEM PANEL Magnesium Lvl 1.8 1.8 - 2.4 03/06/2019 [facility] ELECTROLYTES Potassium Lvl 4.0 3.5 - 5.1 03/06/2019 [facility] ELECTROLYTES Chloride Lvl 107 95 - 109 03/06/2019 [facility] ELECTROLYTES CO2 26 24 - 32 03/06/2019 [facility] ELECTROLYTES Sodium Lvl 140 135 - 145 03/06/2019 [facility] ELECTROLYTES Creatinine Lvl 0.7 1 0.50 - 1.40 03/06/2019 [facility] ELECTROLYTES Calcium Lvl 8.6 8.5 - 10.5 03/06/2019 [facility] ELECTROLYTES eGFR 113 03/06/2019 Result Comment: The [...] should be multiplied by the estimated BMI. [facility] ELECTROLYTES Glucose Lvl 101 70 - 99 03/06/2019 [facility] ELECTROLYTES BUN 11 7 - 22 03/06/2019 [facility] ELECTROLYTES AGAP 11.0 10.0 - 20.0 03/06/2019 [facility] HEMATOLOGY Eosinophils 4.7 0.0 - 4.0 03/06/2019 [facility] HEMATOLOGY Lymphocytes 27.0 20.0 - 40.0 03/06/2019 [facility] HEMATOLOGY Monocytes 7.3 2.0 - 12.0 03/06/2019 [facility] HEMATOLOGY Segs 59.8 45.0 - 75.0 03/06/2019 [facility] HEMATOLOGY Eosinophils # 0.4 0.0 - 0.5 03/06/2019 [facility] HEMATOLOGY Lymphocytes # 2.3 1.0 - 5.5 03/06/2019 [facility] HEMATOLOGY Monocytes # 0.6 0.0 - 0.8 03/06/2019 [facility] HEMATOLOGY Basophils 1.2 0.0 - 1.0 03/06/2019 [facility] HEMATOLOGY Neutrophils # 5.1 1.5 - 8.1 03/06/2019 [facility] HEMATOLOGY Basophils # 0.1 0.0 - 0.2 03/06/2019 [facility] HEMATOLOGY Hct 37.4 36.0 - 48.0 03/06/2019 [facility] HEMATOLOGY WBC 8.5 3.7 - 10.4 03/06/2019 [facility] HEMATOLOGY RBC 4.32 4.20 - 5.40 03/06/2019 [facility] HEMATOLOGY Hgb 12.7 12.0 - 16.0 03/06/2019 [facility] MCV 86.6 80.0 - 98.0 03/06/2019 [facility] HEMATOLOGY MPV 8.7 7.4 - 10.4 03/06/2019 [facility] Platelet 247 133 - 450 03/06/2019 [facility] HEMATOLOGY MCH 29.3 27.0 - 31.0 03/06/2019 [facility] HEMATOLOGY MCHC 33.9 32.0 - 36.0 03/06/2019 [facility] HEMATOLOGY RDW 13.7 11.5 - 14.5 03/06/2019 [facility] TOXICOLOGY Vanco Tr 17.8 03/05/2019 [facility] TOXICOLOGY Vanco Tr TND 1300 03/05/2019 [facility] CHEM PANEL Phosphorus 4.6 2.5 - 4.5 03/04/2019 [facility] CHEM PANEL Magnesium Lvl 1.7 1.8 - 2.4 03/04/2019 [facility] ELECTROLYTES AGAP 8.6 10.0 - 20.0 03/04/2019 [facility] ELECTROLYTES eGFR 119 03/04/2019 Result Comment: The [...] should be multiplied by the estimated BMI. [facility] ELECTROLYTES Creatinine Lvl 0.6 2 0.50 - 1.40 03/04/2019 [facility] ELECTROLYTES Potassium Lvl 3.6 3.5 - 5.1 03/04/2019 [facility] ELECTROLYTES Sodium Lvl 143 135 - 145 03/04/2019 [facility] ELECTROLYTES Chloride Lvl 110 95 - 109 03/04/2019 [facility] ELECTROLYTES CO2 28 24 - 32 03/04/2019 [facility] ELECTROLYTES Calcium Lvl 8.2 8.5 - 10.5 03/04/2019 [facility] ELECTROLYTES BUN 7 7 - 22 03/04/2019 [facility] ELECTROLYTES Glucose Lvl 103 70 - 99 03/04/2019 [facility] HEMATOLOGY Hgb 12.5 12.0 - 16.0 03/04/2019 [facility] HEMATOLOGY MCH 29.7 27.0 - 31.0 03/04/2019 [facility] HEMATOLOGY MCV 86.9 80.0 - 98.0 03/04/2019 [facility] HEMATOLOGY Hct 36.5 36.0 - 48.0 03/04/2019 [facility] HEMATOLOGY Platelet 195 133 - 450 03/04/2019 [facility] HEMATOLOGY RDW 13.9 11.5 - 14.5 03/04/2019 [facility] HEMATOLOGY MPV 8.9 7.4 - 10.4 03/04/2019 [facility] HEMATOLOGY WBC 9.0 3.7 - 10.4 03/04/2019 [facility] HEMATOLOGY MCHC 34.2 32.0 - 36.0 03/04/2019 [facility] HEMATOLOGY RBC 4.20 4.20 - 5.40 03/04/2019 [facility] HEMATOLOGY Neutrophils # 5.2 1.5 - 8.1 03/04/2019 [facility] HEMATOLOGY Lymphocytes # 2.6 1.0 - 5.5 03/04/2019 [facility] HEMATOLOGY Monocytes # 0.8 0.0 - 0.8 03/04/2019 [facility] HEMATOLOGY Eosinophils # 0.4 0.0 - 0.5 03/04/2019 [facility] HEMATOLOGY Segs 57.6 45.0 - 75.0 03/04/2019 [facility] HEMATOLOGY Lymphocytes 28.4 20.0 - 40.0 03/04/2019 [facility] HEMATOLOGY Monocytes 8.8 2.0 - 12.0 03/04/2019 [facility] HEMATOLOGY Eosinophils 4.1 0.0 - 4.0 03/04/2019 [facility] HEMATOLOGY Basophils 1.1 0.0 - 1.0 03/04/2019 [facility] HEMATOLOGY Basophils # 0.1 0.0 - 0.2 03/04/2019 [facility] CIPROFLOXACIN:SUSC:PT:ISOLATE:ORDQN:MONISHA Gram Stain Report Few WBC's Rare Gram Positive Cocci 03/02/2019 [facility] CIPROFLOXACIN:SUSC:PT:ISOLATE:ORDQN:MONISHA Culture: Wound/Abscess w/Gram Stain Many Staphylococcus aureus 03/02/2019 [facility] CIPROFLOXACIN:SUSC:PT:ISOLATE:ORDQN:MONISHA Staphylococcus aureus Staphylococcus aureus 03/02/2019 [facility] TOXICOLOGY Vanco Tr TND 1300 03/02/2019 [facility] TOXICOLOGY Vanco Tr 14.7 03/02/2019 [facility] URINE AND STOOL UA Urobilinogen <=1.0 mg/dL 0.1 - 1.0 03/01/2019 [facility]A Mucus Few /LPF None Seen /LPF 03/01/2019 [facility] URINE AND STOOL UA Leuk Est Negative (03/01/19 4:13 PM) Negative 03/01/2019 [facility] URINE AND STOOL UA Sq Epi Few /LPF Few /LPF 03/01/2019 [facility] URINE AND STOOL UA Nitrite Negative (03/01/19 4:13 PM) Negative 03/01/2019 [facility] URINE AND STOOL UA RBC 87 0 - 2 03/01/2019 [facility] URINE AND STOOL UA WBC 3 0 - 5 03/01/2019 [facility] URINE AND STOOL UA Bacteria Occasional /HPF None Seen /HPF 03/01/2019 [facility] AND STOOL UA pH 7.0 5.0 - 8.0 03/01/2019 [facility] URINE AND STOOL UA Ketones Negative mg/dL Negative mg/dL 03/01/2019 [facility] URINE AND STOOL UA Protein Negative mg/dL Negative mg/dL 03/01/2019 [facility] URINE AND STOOL UA Glucose Negative mg/dL Negative mg/dL 03/01/2019 [facility] URINE AND STOOL UA Blood Large *ABN* (03/01/19 4:13 PM) Negative 03/01/2019 [facility] URINE AND STOOL UA Bili Negative *NA* (03/01/19 4:13 PM) Negative 03/01/2019 [facility] URINE AND STOOL UA Spec Grav 1.010 <=1.030 03/01/2019 [facility] URINE AND STOOL UA Turbidity Slight *ABN* (03/01/19 4:13 PM) Clear 03/01/2019 [facility] URINE AND STOOL UA Color Yellow *NA* (03/01/19 4:13 PM) Yellow 03/01/2019 [facility] CHEM PANEL Albumin Lvl 3.4 3.5 - 5.0 03/01/2019 [facility] CHEM PANEL Total Protein 7.2 6.4 - 8.4 03/01/2019 [facility] CHEM PANEL Alk Phos 86 39 - 136 03/01/2019 [facility] CHEM PANEL Bili Total 0.5 0.2 - 1.3 03/01/2019 [facility] CHEM PANEL AST 12 0 - 37 03/01/2019 [facility] CHEM PANEL ALT 20 0 - 65 03/01/2019 [facility] CHEM PANEL A/G Ratio 0.9 0.7 - 1.6 03/01/2019 [facility] CHEM PANEL B/C Ratio 16 6 - 25 03/01/2019 [facility] CHEM PANEL Globulin 3.8 2.7 - 4.2 03/01/2019 [facility] HEMATOLOGY INR 1.14 0.85 - 1.17 03/01/2019 [facility] HEMATOLOGY PTT 38.3 22.9 - 35.8 03/01/2019 [facility] HEMATOLOGY PT 14.4 12.0 - 14.7 03/01/2019 [facility] CHEM PANEL Lactic Acid Lvl 1.4 0.5 - 2.2 03/01/2019 [facility] ENDOCRINOLOGY hCG Tot <1 03/01/2019 [facility] TOXICOLOGY Vanco Tr 10.8 01/31/2019 [facility] TOXICOLOGY Vanco Tr TND 2000 01/31/2019 [facility] BACTERIAL - SEROLOGY MRSA by PCR Negative (01/30/19 11:23 AM) 01/30/2019 [facility] TOXICOLOGY Vanco Tr 18.9 01/29/2019 [facility] TOXICOLOGY Vanco Tr TND 1330 01/29/2019 [facility] HEMATOLOGY MCH 28.5 27.0 - 31.0 01/29/2019 [facility] HEMATOLOGY MCV 87.8 80.0 - 98.0 01/29/2019 [facility] HEMATOLOGY Hct 38.5 36.0 - 48.0 01/29/2019 [facility] HEMATOLOGY Hgb 12.5 12.0 - 16.0 01/29/2019 [facility] HEMATOLOGY RBC 4.38 4.20 - 5.40 01/29/2019 [facility] HEMATOLOGY Platelet 244 133 - 450 01/29/2019 [facility] HEMATOLOGY MCHC 32.5 32.0 - 36.0 01/29/2019 [facility] HEMATOLOGY MPV 8.5 7.4 - 10.4 01/29/2019 [facility] HEMATOLOGY RDW 13.5 11.5 - 14.5 01/29/2019 [facility] HEMATOLOGY WBC 8.1 3.7 - 10.4 01/29/2019 [facility] TOXICOLOGY Vanco Tr 18.3 01/28/2019 [facility] TOXICOLOGY Vanco Tr TND 1230 01/28/2019 [facility] CEFEPIME:SUSC:PT:ISOLATE:ORDQN:MONISHA G jade Stain Report Rare Gram Negative Rods No WBC's Seen 01/28/2019 [facility] CEFEPIME:SUSC:PT:ISOLATE:ORDQN:MONISHA Culture: Wound/Abscess w/Gram Stain Moderate Proteus mirabilis Moderate Klebsiella pneumoniae ssp pneumoniae Few Staphylococcus aureus 01/28/2019 [facility] CEFEPIME:SUSC:PT:ISOLATE:ORDQN:MONISHA Staphylococcus aureus Staphylococcus aureus 01/28/2019 [facility] CEFEPIME:SUSC:PT:ISOLATE:ORDQN:MONISHA Klebsiella pneumoniae ssp pneumoniae Klebsiella pneumoniae ssp pneumoniae 01/28/2019 [facility] CEFEPIME:SUSC:PT:ISOLATE:ORDQN:MONISHA P roteus mirabilis Proteus mirabilis 01/28/2019 [facility] URINE AND STOOL UA Leuk Est Negative (01/27/19 6:31 AM) Negative 01/27/2019 [facility] URINE AND STOOL UA WBC 2 0 - 5 01/27/2019 [facility] URINE AND STOOL UA RBC 5 0 - 2 01/27/2019 [facility] URINE AND STOOL UA Sq Epi Moderate /LPF Few /LPF 01/27/2019 [facility] URINE AND STOOL UA Protein Negative mg/dL Negative mg/dL 01/27/2019 [facility] URINE AND STOOL UA pH 6.0 5.0 - 8.0 01/27/2019 [facility] URINE AND STOOL UA Color Yellow *NA* (01/27/19 6:31 AM) Yellow 01/27/2019 [facility] URINE AND STOOL UA Spec Grav 1.028 <=1.030 01/27/2019 [facility] URINE AND STOOL UA Turbidity Slight *ABN* (01/27/19 6:31 AM) Clear 01/27/2019 [facility] URINE AND STOOL UA Mucus Few /LPF None Seen /LPF 01/27/2019 [facility] URINE AND STOOL UA Bacteria Occasional /HPF None Seen /HPF 01/27/2019 [facility] URINE AND STOOL UA Glucose Negative mg/dL Negative mg/dL 01/27/2019 [facility] URINE AND STOOL UA Blood Negative (01/27/19 6:31 AM) Negative 01/27/2019 [facility] URINE AND STOOL UA Bili Negative *NA* (01/27/19 6:31 AM) Negative 01/27/2019 [facility] URINE AND STOOL UA Nitrite Negative (01/27/19 6:31 AM) Negative 01/27/2019 [facility] URINE AND STOOL UA Ketones Negative mg/dL Negative mg/dL 01/27/2019 [facility] URINE AND STOOL UA Urobilinogen <=1.0 mg/dL 0.1 - 1.0 01/27/2019 [facility] URINE CHEM U Preg Negat theron (01/27/19 6:31 AM) Negative 01/27/2019 [facility] CHEM PANEL Lactic Acid Lvl 1.5 0.5 - 2.2 01/27/2019 [facility] CHEM PANEL B/C Ratio 19 6 - 25 01/27/2019 [facility] CHEM PANEL Globulin 3.9 2.7 - 4.2 01/27/2019 [facility] CHEM PANEL A/G Ratio 0.9 0.7 - 1.6 01/27/2019 [facility] CHEM PANEL AGAP 13.9 10.0 - 20.0 01/27/2019 [facility] CHEM PANEL eGFR 106 01/27/2019 Result Comment: [...] should be multiplied by the estimated BMI. [facility] CHEM PANEL AST 18 0 - 37 01/27/2019 [facility] CHEM PANEL Alk Phos 92 39 - 136 01/27/2019 [facility] CHEM PANEL Potassium Lvl 3.9 3.5 - 5.1 01/27/2019 [facility] CHEM PANEL Bili Total 0.3 0.2 - 1.3 01/27/2019 [facility] CHEM PANEL Albumin Lvl 3.6 3.5 - 5.0 01/27/2019 [facility] CHEM PANEL ALT 24 0 - 65 01/27/2019 [facility] CHEM PANEL Total Protein 7.5 6.4 - 8.4 01/27/2019 [facility] CHEM PANEL Chloride Lvl 108 95 - 109 01/27/2019 [facility] CHEM PANEL CO2 24 24 - 32 01/27/2019 [facility] CHEM PANEL Sodium Lvl 142 135 - 145 01/27/2019 [facility] CHEM PANEL Calcium Lvl 8.5 8.5 - 10.5 01/27/2019 [facility] CHEM PANEL BUN 14 7 - 22 01/27/2019 [facility] CHEM PANEL Creatinine Lvl 0.75 0.50 - 1.40 01/27/2019 [facility] CHEM PANEL Glucose Lvl 91 70 - 99 01/27/2019 [facility] HEMATOLOGY Eosinophils 6.5 0.0 - 4.0 01/27/2019 [facility] HEMATOLOGY Monocytes 8.1 2.0 - 12.0 01/27/2019 [facility] HEMATOLOGY Basophils 0.9 0.0 - 1.0 01/27/2019 [facility] HEMATOLOGY Lymphocytes # 2.9 1.0 - 5.5 01/27/2019 [facility] HEMATOLOGY Neutrophils # 7.4 1.5 - 8.1 01/27/2019 [facility] HEMATOLOGY Monocytes # 1.0 0.0 - 0.8 01/27/2019 [facility] HEMATOLOGY Eosinophils # 0.8 0.0 - 0.5 01/27/2019 [facility] HEMATOLOGY Basophils # 0.1 0.0 - 0.2 01/27/2019 [facility] HEMATOLOGY Lymphocytes 23.6 20.0 - 40.0 01/27/2019 [facility] HEMATOLOGY Segs 60.9 45.0 - 75.0 01/27/2019 [facility] HEMATOLOGY WBC 12.2 3.7 - 10.4 01/27/2019 [facility] MCHC 32.4 32.0 - 36.0 01/27/2019 [facility] RDW 13.7 11.5 - 14.5 01/27/2019 [facility] MCH 28.5 27.0 - 31.0 01/27/2019 [facility] MCV 88.2 80.0 - 98.0 01/27/2019 [facility] Hct 41.4 36.0 - 48.0 01/27/2019 [facility] RBC 4.69 4.20 - 5.40 01/27/2019 [facility] Hgb 13.4 12.0 - 16.0 01/27/2019 [facility] MPV 8.8 7.4 - 10.4 01/27/2019 [facility] Platelet 253 133 - 450 01/27/2019 [facility] CHEM PANEL Lactic Acid Lvl 1.0 0.5 - 2.2 12/13/2018 [facility] ELECTROLYTES Sodium Lvl 140 135 - 145 12/13/2018 [facility] ELECTROLYTES Creatinine Lvl 1.0 4 0.50 - 1.40 12/13/2018 [facility] ELECTROLYTES eGFR 71 12/13/2018 Result Comment: The [...] should be multiplied by the estimated BMI. [facility] ELECTROLYTES Glucose Lvl 88 70 - 99 12/13/2018 [facility] ELECTROLYTES Potassium Lvl 3.4 3.5 - 5.1 12/13/2018 [facility] ELECTROLYTES BUN 15 7 - 22 12/13/2018 [facility] ELECTROLYTES Alk Phos 79 39 - 136 12/13/2018 [facility] ELECTROLYTES Albumin Lvl 3.2 3.5 - 5.0 12/13/2018 [facility] ELECTROLYTES AST 15 0 - 37 12/13/2018 [facility] ELECTROLYTES Bili Total 0.2 0.2 - 1.3 12/13/2018 [facility] ELECTROLYTES ALT 24 0 - 65 12/13/2018 [facility] ELECTROLYTES Chloride Lvl 105 95 - 109 12/13/2018 [facility] ELECTROLYTES CO2 29 24 - 32 12/13/2018 [facility] ELECTROLYTES Calcium Lvl 8.8 8.5 - 10.5 12/13/2018 [facility] ELECTROLYTES Total Protein 7.7 6.4 - 8.4 12/13/2018 [facility] ELECTROLYTES B/C Ratio 14 6 - 25 12/13/2018 [facility] ELECTROLYTES AGAP 9.4 10.0 - 20.0 12/13/2018 [facility] ELECTROLYTES A/G Ratio 0.7 0.7 - 1.6 12/13/2018 [facility] ELECTROLYTES Globulin 4.5 2.7 - 4.2 12/13/2018 [facility] HEMATOLOGY Basophils # 0.1 0.0 - 0.2 12/13/2018 [facility] HEMATOLOGY Lymphocytes # 2.6 1.0 - 5.5 12/13/2018 [facility] HEMATOLOGY Monocytes # 0.8 0.0 - 0.8 12/13/2018 [facility] HEMATOLOGY Eosinophils # 0.5 0.0 - 0.5 12/13/2018 [facility] HEMATOLOGY Eosinophils 4.0 0.0 - 4.0 12/13/2018 [facility] HEMATOLOGY Monocytes 7.1 2.0 - 12.0 12/13/2018 [facility] HEMATOLOGY Lymphocytes 22.7 20.0 - 40.0 12/13/2018 [facility] HEMATOLOGY Basophils 1.2 0.0 - 1.0 12/13/2018 [facility] HEMATOLOGY Neutrophils # 7.3 1.5 - 8.1 12/13/2018 [facility] HEMATOLOGY Segs 65.0 45.0 - 75.0 12/13/2018 [facility] HEMATOLOGY RDW 13.3 11.5 - 14.5 12/13/2018 [facility] HEMATOLOGY MCHC 33.7 32.0 - 36.0 12/13/2018 [facility] HEMATOLOGY Platelet 314 133 - 450 12/13/2018 [facility] HEMATOLOGY MPV 7.7 7.4 - 10.4 12/13/2018 [facility] HEMATOLOGY RBC 4.45 4.20 - 5.40 12/13/2018 [facility] HEMATOLOGY MCH 28.9 27.0 - 31.0 12/13/2018 [facility] HEMATOLOGY MCV 85.7 80.0 - 98.0 12/13/2018 [facility] HEMATOLOGY WBC 11.3 3.7 - 10.4 12/13/2018 [facility] HEMATOLOGY Hgb 12.9 12.0 - 16.0 12/13/2018 [facility] HEMATOLOGY Hct 38.1 36.0 - 48.0 12/13/2018 [facility] TOXICOLOGY Vanco Tr TND 2100 12/09/2018 [facility] TOXICOLOGY Vanco Tr 16.7 12/09/2018 [facility] CHEM PANEL eGFR 93 12/08/2018 Result Comment: [...] should be multiplied by the estimated BMI. [place] CHEM PANEL Sodium Lvl 143 135 - 145 12/08/2018 [facility] CHEM PANEL Creatinine Lvl 0.83 0.50 - 1.40 12/08/2018 [facility] BUN 6 7 - 22 12/08/2018 [place] CHEM PANEL Glucose Lvl 98 70 - 99 12/08/2018 [place] CHEM PANEL CO2 29 24 - 32 12/08/2018 [place] CHEM PANEL Chloride Lvl 106 95 - 109 12/08/2018 [place] CHEM PANEL Potassium Lvl 3.8 3.5 - 5.1 12/08/2018 [facility] CHEM PANEL Calcium Lvl 8.8 8.5 - 10.5 12/08/2018 [facility] CHEM PANEL AGAP 11.8 10.0 - 20.0 12/08/2018 [facility] HEMATOLOGY Monocytes 8.5 2.0 - 12.0 12/08/2018 [facility] HEMATOLOGY Segs 61.1 45.0 - 75.0 12/08/2018 [facility] HEMATOLOGY Eosinophils 5.9 0.0 - 4.0 12/08/2018 [facility] HEMATOLOGY Lymphocytes 23.5 20.0 - 40.0 12/08/2018 [facility] HEMATOLOGY Basophils # 0.1 0.0 - 0.2 12/08/2018 [facility] HEMATOLOGY Eosinophils # 0.6 0.0 - 0.5 12/08/2018 [facility] HEMATOLOGY Monocytes # 0.8 0.0 - 0.8 12/08/2018 [facility] HEMATOLOGY Lymphocytes # 2.3 1.0 - 5.5 12/08/2018 [facility] HEMATOLOGY Basophils 1.0 0.0 - 1.0 12/08/2018 [facility] HEMATOLOGY Neutrophils # 6.0 1.5 - 8.1 12/08/2018 [facility] HEMATOLOGY MPV 7.8 7.4 - 10.4 12/08/2018 [facility] HEMATOLOGY Platelet 278 133 - 450 12/08/2018 [facility] HEMATOLOGY RDW 13.1 11.5 - 14.5 12/08/2018 [facility] HEMATOLOGY MCHC 33.6 32.0 - 36.0 12/08/2018 [facility] HEMATOLOGY Hct 35.3 36.0 - 48.0 12/08/2018 [facility] HEMATOLOGY MCV 86.2 80.0 - 98.0 12/08/2018 [facility] HEMATOLOGY WBC 9.7 3.7 - 10.4 12/08/2018 [facility] HEMATOLOGY MCH 28.9 27.0 - 31.0 12/08/2018 [facility] HEMATOLOGY RBC 4.10 4.20 - 5.40 12/08/2018 [facility] HEMATOLOGY Hgb 11.9 12.0 - 16.0 12/08/2018 [facility] TOXICOLOGY Vanco Tr TND mar 12/07/2018 [facility] TOXICOLOGY Vanco Tr 15.3 12/07/2018 [facility] ELECTROLYTES AGAP 9.8 10.0 - 20.0 12/07/2018 [facility] ELECTROLYTES eGFR 116 12/07/2018 Result Comment: The [...] should be multiplied by the estimated BMI. [facility] ELECTROLYTES Chloride Lvl 106 95 - 109 12/07/2018 [facility] ELECTROLYTES Potassium Lvl 3.8 3.5 - 5.1 12/07/2018 [facility] ELECTROLYTES Calcium Lvl 8.1 8.5 - 10.5 12/07/2018 [facility] ELECTROLYTES CO2 31 24 - 32 12/07/2018 [facility] ELECTROLYTES Sodium Lvl 143 135 - 145 12/07/2018 [facility] ELECTROLYTES Creatinine Lvl 0.6 9 0.50 - 1.40 12/07/2018 [facility] ELECTROLYTES BUN 6 7 - 22 12/07/2018 [facility] ELECTROLYTES Glucose Lvl 116 70 - 99 12/07/2018 [facility] HEMATOLOGY MCV 87.1 80.0 - 98.0 12/07/2018 [facility] HEMATOLOGY Hct 34.8 36.0 - 48.0 12/07/2018 [facility] HEMATOLOGY MCH 28.8 27.0 - 31.0 12/07/2018 [facility] HEMATOLOGY Hgb 11.5 12.0 - 16.0 12/07/2018 [facility] HEMATOLOGY MPV 7.7 7.4 - 10.4 12/07/2018 [facility] HEMATOLOGY RDW 13.3 11.5 - 14.5 12/07/2018 [facility] MCHC 33.1 32.0 - 36.0 12/07/2018 [facility] Platelet 274 133 - 450 12/07/2018 [facility] RBC 4.00 4.20 - 5.40 12/07/2018 [facility] HEMATOLOGY WBC 9.8 3.7 - 10.4 12/07/2018 [facility] HEMATOLOGY Monocytes # 0.8 0.0 - 0.8 12/07/2018 [facility] HEMATOLOGY Eosinophils # 0.6 0.0 - 0.5 12/07/2018 [facility] HEMATOLOGY Basophils # 0.1 0.0 - 0.2 12/07/2018 [facility] HEMATOLOGY Segs 61.0 45.0 - 75.0 12/07/2018 [facility] Monocytes 7.8 2.0 - 12.0 12/07/2018 [facility] HEMATOLOGY Basophils 1.1 0.0 - 1.0 12/07/2018 [facility] Eosinophils 6.5 0.0 - 4.0 12/07/2018 [facility] Lymphocytes 23.6 20.0 - 40.0 12/07/2018 [facility] Lymphocytes # 2.3 1.0 - 5.5 12/07/2018 [facility] Neutrophils # 6.0 1.5 - 8.1 12/07/2018 [facility] AMPICILLIN+SULBACTAM:SUSC:PT:ISOLATE:ORDQN:MONISHA Gram Stain Report Rare WBC's No Organisms Seen 12/06/2018 [facility] AMPICILLIN+SULBACTAM:SUSC:PT:ISOLATE:ORDQN:MOINSHA Culture: Wound/Abscess w/Gram Stain Many Staphylococcus aureus . Sensitivity Pending 12/06/2018 [facility] AMPICILLIN+SULBACTAM:SUSC:PT:ISOLATE:ORDQN:MONISHA Staphylococcus aureus Staphylococcus aureus 12/06/2018 [facility] Culture: Anaerobic No Anaerobes Is olated After 4 Days 12/06/2018 [facility] TOXICOLOGY Vanco Tr TND 0930 12/06/2018 [facility] TOXICOLOGY Vanco Tr 14.8 12/06/2018 [facility] CHEM PANEL eGFR 129 12/06/2018 Result Comment: [...] should be multiplied by the estimated BMI. [facility] CHEM PANEL BUN 8 7 - 22 12/06/2018 [facility] CHEM PANEL Creatinine Lvl 0.49 0.50 - 1.40 12/06/2018 [facility] CHEM PANEL Calcium Lvl 8.2 8.5 - 10.5 12/06/2018 [facility] CHEM PANEL Potassium Lvl 3.8 3.5 - 5.1 12/06/2018 [facility] CHEM PANEL Sodium Lvl 139 135 - 145 12/06/2018 [facility] CHEM PANEL Chloride Lvl 106 95 - 109 12/06/2018 [facility] CHEM PANEL CO2 27 24 - 32 12/06/2018 [facility] CHEM PANEL Glucose Lvl 99 70 - 99 12/06/2018 [facility] CHEM PANEL AGAP 9.8 10.0 - 20.0 12/06/2018 [facility] HEMATOLOGY Basophils # 0.1 0.0 - 0.2 12/06/2018 [facility] HEMATOLOGY Basophils 1.0 0.0 - 1.0 12/06/2018 [facility] HEMATOLOGY Lymphocytes # 2.1 1.0 - 5.5 12/06/2018 [facility] HEMATOLOGY Neutrophils # 4.8 1.5 - 8.1 12/06/2018 [facility] HEMATOLOGY Eosinophils # 0.5 0.0 - 0.5 12/06/2018 [facility] HEMATOLOGY Monocytes # 0.8 0.0 - 0.8 12/06/2018 [facility] HEMATOLOGY Monocytes 9.8 2.0 - 12.0 12/06/2018 [facility] HEMATOLOGY Lymphocytes 25.0 20.0 - 40.0 12/06/2018 [facility] HEMATOLOGY Eosinophils 6.3 0.0 - 4.0 12/06/2018 [facility] HEMATOLOGY Segs 57.9 45.0 - 75.0 12/06/2018 [facility] HEMATOLOGY INR 1.09 0.85 - 1.17 12/06/2018 [facility] HEMATOLOGY PT 13.9 12.0 - 14.7 12/06/2018 [facility] HEMATOLOGY MPV 8.3 7.4 - 10.4 12/06/2018 [facility] HEMATOLOGY RDW 13.2 11.5 - 14.5 12/06/2018 [facility] HEMATOLOGY MCHC 33.0 32.0 - 36.0 12/06/2018 [facility] HEMATOLOGY Platelet 240 133 - 450 12/06/2018 [facility] HEMATOLOGY RBC 3.96 4.20 - 5.40 12/06/2018 [facility] HEMATOLOGY WBC 8.4 3.7 - 10.4 12/06/2018 [facility] HEMATOLOGY MCH 28.6 27.0 - 31.0 12/06/2018 [facility] HEMATOLOGY MCV 86.6 80.0 - 98.0 12/06/2018 [facility] HEMATOLOGY Hgb 11.3 12.0 - 16.0 12/06/2018 [facility] HEMATOLOGY Hct 34.3 36.0 - 48.0 12/06/2018 [facility] TOXICOLOGY Vanco Lvl 15.3 12/05/2018 [facility] CHEM PANEL Magnesium Lvl 1.9 1.8 - 2.4 12/04/2018 [facility] CHEM PANEL Bili Total 0.7 0.2 - 1.3 12/04/2018 [facility] CHEM PANEL Alk Phos 72 39 - 136 12/04/2018 [facility] CHEM PANEL Total Protein 6.9 6.4 - 8.4 12/04/2018 [facility] CHEM PANEL AST 13 0 - 37 12/04/2018 [facility] CHEM PANEL ALT 29 0 - 65 12/04/2018 [facility] CHEM PANEL Albumin Lvl 2.8 3.5 - 5.0 12/04/2018 [facility] CHEM PANEL Globulin 4.1 2.7 - 4.2 12/04/2018 [facility] CHEM PANEL A/G Ratio 0.7 0.7 - 1.6 12/04/2018 [facility] CHEM PANEL B/C Ratio 14 6 - 25 12/04/2018 [facility] HEMATOLOGY PTT 44.5 22.9 - 35.8 12/04/2018 [facility] HEMATOLOGY PT 16.0 12.0 - 14.7 12/04/2018 [facility] HEMATOLOGY INR 1.31 0.85 - 1.17 12/04/2018 [facility] CHEM PANEL Lactic Acid Lvl 1.1 0.5 - 2.2 12/04/2018 [facility] [place] CHEM PANEL Lactic Acid Lvl 0.7 0.5 - 2.2 12/03/2018 [facility] ENDOCRINOLOGY S Preg Ne gative *NA* (12/03/18 4:23 PM) Negative [facility]03/[facility] Lactic Acid Lvl 1.0 0.5 - 2.2 10/11/2018 [place] CHEM PANEL B/C Ratio 19 6 - 25 10/11/2018 [facility] AGAP 9.8 10.0 - 20.0 10/11/2018 [facility] Globulin 4.5 2.7 - 4.2 10/11/2018 [facility] A/G Ratio 0.8 0.7 - 1.6 10/11/2018 [facility] CHE[facility] eGFR 93 10/11/2018 Result Comment: [...] should be multiplied by the estimated BMI. [place] CHEM PANEL ALT 24 0 - 65 10/11/2018 [facility] AST 17 0 - 37 10/11/2018 [facility] CHE[facility] Alk Phos 81 39 - 136 10/11/2018 [facility] CHE[facility] Bili Total 0.3 0.2 - 1.3 10/11/2018 [facility] Creatinine Lvl 0.83 0.50 - 1.40 10/11/2018 [place] CHEM PANEL Glucose Lvl 84 70 - 99 10/11/2018 [place] CHEM PANEL BUN 16 7 - 22 10/11/2018 [place] CHEM PANEL Potassium Lvl 3.8 3.5 - 5.1 10/11/2018 [facility] CHEM PANEL Sodium Lvl 139 135 - 145 10/11/2018 [facility] CHEM PANEL CO2 26 24 - 32 10/11/2018 [facility] CHEM PANEL Calcium Lvl 8.5 8.5 - 10.5 10/11/2018 [facility] CHEM PANEL Chloride Lvl 107 95 - 109 10/11/2018 [facility] CHEM PANEL Total Protein 8.0 6.4 - 8.4 10/11/2018 [facility] CHEM PANEL Albumin Lvl 3.5 3.5 - 5.0 10/11/2018 [facility] HEMATOLOGY Monocytes # 0.8 0.0 - 0.8 10/11/2018 [facility] HEMATOLOGY Basophils # 0.1 0.0 - 0.2 10/11/2018 [facility] HEMATOLOGY Eosinophils # 0.3 0.0 - 0.5 10/11/2018 [facility] HEMATOLOGY Monocytes 7.7 2.0 - 12.0 10/11/2018 [facility] HEMATOLOGY Eosinophils 3.0 0.0 - 4.0 10/11/2018 [facility] HEMATOLOGY Basophils 0.6 0.0 - 1.0 10/11/2018 [facility] HEMATOLOGY Neutrophils # 6.8 1.5 - 8.1 10/11/2018 [facility] HEMATOLOGY Lymphocytes # 2.4 1.0 - 5.5 10/11/2018 [facility] HEMATOLOGY Lymphocytes 22.9 20.0 - 40.0 10/11/2018 [facility] HEMATOLOGY Segs 65.8 45.0 - 75.0 10/11/2018 [facility] HEMATOLOGY RDW 13.3 11.5 - 14.5 10/11/2018 [facility] HEMATOLOGY MCHC 32.5 32.0 - 36.0 10/11/2018 [facility] HEMATOLOGY MCH 28.8 27.0 - 31.0 10/11/2018 [facility] HEMATOLOGY Hct 42.6 36.0 - 48.0 10/11/2018 [facility] HEMATOLOGY Hgb 13.8 12.0 - 16.0 10/11/2018 [facility] HEMATOLOGY WBC 10.3 3.7 - 10.4 10/11/2018 [facility] HEMATOLOGY MCV 88.5 80.0 - 98.0 10/11/2018 [facility] HEMATOLOGY RBC 4.81 4.20 - 5.40 10/11/2018 [facility] HEMATOLOGY Platelet 272 133 - 450 10/11/2018 [facility] HEMATOLOGY MPV 8.7 7.4 - 10.4 10/11/2018 [facility] CHEM PANEL Lactic Acid Lvl 1.5 0.5 - 2.2 09/06/2018 [facility] CHEM PANEL Bili Total 0.5 0.2 - 1.3 09/06/2018 [facility] CHEM PANEL AST 15 0 - 37 09/06/2018 [facility] CHEM PANEL Alk Phos 74 39 - 136 09/06/2018 [facility] CHEM PANEL eGFR 72 09/06/2018 Result Comment: [...] should be multiplied by the estimated BMI. [facility] CHEM PANEL Creatinine Lvl 1.03 0.50 - 1.40 09/06/2018 [facility] CHEM PANEL Sodium Lvl 140 135 - 145 09/06/2018 [facility] CHEM PANEL Potassium Lvl 3.6 3.5 - 5.1 09/06/2018 [facility] CHEM PANEL Total Protein 7.4 6.4 - 8.4 09/06/2018 [facility] CHEM PANEL Albumin Lvl 3.3 3.5 - 5.0 09/06/2018 [facility] CHEM PANEL ALT 27 0 - 65 09/06/2018 [facility] CHEM PANEL Glucose Lvl 120 70 - 99 09/06/2018 [facility] CHEM PANEL BUN 11 7 - 22 09/06/2018 [facility] CHEM PANEL Calcium Lvl 8.3 8.5 - 10.5 09/06/2018 [facility] CHEM PANEL Chloride Lvl 109 95 - 109 09/06/2018 [facility] CHEM PANEL CO2 24 24 - 32 09/06/2018 [facility] CHEM PANEL A/G Ratio 0.8 0.7 - 1.6 09/06/2018 [facility] CHEM PANEL AGAP 10.6 10.0 - 20.0 09/06/2018 [facility] CHEM PANEL B/C Ratio 11 6 - 25 09/06/2018 [facility] CHEM PANEL Globulin 4.1 2.7 - 4.2 09/06/2018 [facility] CHEM PANEL Lipase Lvl 200 73 - 393 09/06/2018 [facility] ENDOCRINOLOGY S Preg Ne gative *NA* (09/06/18 12:46 AM) Negative 09/06/2018 [facility] HEMATOLOGY Platelet 230 133 - 450 09/06/2018 [facility] HEMATOLOGY MPV 8.3 7.4 - 10.4 09/06/2018 [facility] MCHC 33.1 32.0 - 36.0 09/06/2018 [facility] HEMATOLOGY RDW 13.7 11.5 - 14.5 09/06/2018 [facility] MCH 28.5 27.0 - 31.0 09/06/2018 [facility] HEMATOLOGY RBC 4.70 4.20 - 5.40 09/06/2018 [facility] HEMATOLOGY Hgb 13.4 12.0 - 16.0 09/06/2018 [facility] HEMATOLOGY WBC 12.6 3.7 - 10.4 09/06/2018 [facility] HEMATOLOGY Hct 40.5 36.0 - 48.0 09/06/2018 [facility] HEMATOLOGY MCV 86.2 80.0 - 98.0 09/06/2018 [facility] HEMATOLOGY Basophils # 0.1 0.0 - 0.2 09/06/2018 [facility] HEMATOLOGY Eosinophils # 0.4 0.0 - 0.5 09/06/2018 [facility] HEMATOLOGY Monocytes # 0.8 0.0 - 0.8 09/06/2018 [facility] HEMATOLOGY Neutrophils # 8.4 1.5 - 8.1 09/06/2018 [facility] HEMATOLOGY Lymphocytes # 2.9 1.0 - 5.5 09/06/2018 [facility] HEMATOLOGY Eosinophils 3.6 0.0 - 4.0 09/06/2018 [facility] HEMATOLOGY Basophils 0.7 0.0 - 1.0 09/06/2018 [facility] HEMATOLOGY Lymphocytes 22.9 20.0 - 40.0 09/06/2018 [facility] HEMATOLOGY Monocytes 6.3 2.0 - 12.0 09/06/2018 [facility] HEMATOLOGY Segs 66.5 45.0 - 75.0 09/06/2018 [...] Negative *NA* (09/06/18 12:46 AM) Negative 09/06/2018 [facility] URINE AND STOOL UA Bacteria Occasional /HPF None Seen /HPF 09/06/[address] [facility] [address] URINE AND STOOL UA Bili Negative *NA* (09/06/18 12:46 AM) Negative 09/06/2018 [facility] URINE AND STOOL UA Urobilinogen <=1.0 mg/dL 0.1 - 1.0 09/06/[address] [facility] [address] URINE AND STOOL UA Blood Large *ABN* (09/06/18 12:46 AM) Negative 09/06/2018 [facility] CHEM PANEL Magnesium Lvl 1.9 1.8 - 2.4 08/28/2018 [facility] ELECTROLYTES AGAP 11.1 10.0 - 20.0 08/28/2018 [facility] ELECTROLYTES eGFR 116 08/28/2018 Result Comment: The [...] should be multiplied by the estimated BMI. [facility] ELECTROLYTES Calcium Lvl 8.4 8.5 - 10.5 08/28/2018 [facility] ELECTROLYTES BUN 13 7 - 22 08/28/2018 [facility] ELECTROLYTES Sodium Lvl 137 135 - 145 08/28/2018 [facility] ELECTROLYTES Creatinine Lvl 0.6 9 0.50 - 1.40 08/28/2018 [facility] ELECTROLYTES Potassium Lvl 4.1 3.5 - 5.1 08/28/2018 [facility] ELECTROLYTES CO2 25 24 - 32 08/28/2018 [facility] ELECTROLYTES Chloride Lvl 105 95 - 109 08/28/2018 [facility] ELECTROLYTES Glucose Lvl 105 70 - 99 08/28/2018 [facility] HEMATOLOGY INR 1.01 0.85 - 1.17 08/28/2018 [facility] HEMATOLOGY PTT 33.7 22.9 - 35.8 08/28/2018 [facility] HEMATOLOGY PT 13.1 12.0 - 14.7 08/28/2018 [facility] HEMATOLOGY Lymphocytes 26.9 20.0 - 40.0 08/28/2018 [facility] Lymphocytes # 2.1 1.0 - 5.5 08/28/2018 [facility] HEMATOLOGY Eosinophils 6.7 0.0 - 4.0 08/28/2018 [facility] HEMATOLOGY Monocytes 9.3 2.0 - 12.0 08/28/2018 [facility] HEMATOLOGY Segs 56.2 45.0 - 75.0 08/28/2018 [facility] Monocytes # 0.7 0.0 - 0.8 08/28/2018 [facility] HEMATOLOGY Eosinophils # 0.5 0.0 - 0.5 08/28/2018 [facility] HEMATOLOGY Neutrophils # 4.3 1.5 - 8.1 08/28/2018 [facility] HEMATOLOGY Basophils 0.9 0.0 - 1.0 08/28/2018 [facility] HEMATOLOGY Basophils # 0.1 0.0 - 0.2 08/28/2018 [facility] MPV 8.1 7.4 - 10.4 08/28/2018 [facility] RDW 13.4 11.5 - 14.5 08/28/2018 [facility] HEMATOLOGY Platelet 233 133 - 450 08/28/2018 [facility] HEMATOLOGY MCHC 33.2 32.0 - 36.0 08/28/2018 [facility] HEMATOLOGY MCV 87.4 80.0 - 98.0 08/28/2018 [facility] MCH 29.0 27.0 - 31.0 08/28/2018 [facility] Hct 41.5 36.0 - 48.0 08/28/2018 [facility] HEMATOLOGY WBC 7.7 3.7 - 10.4 08/28/2018 [facility] HEMATOLOGY RBC 4.74 4.20 - 5.40 08/28/2018 [facility] HEMATOLOGY Hgb 13.8 12.0 - 16.0 08/28/2018 [facility] HEMATOLOGY PT 12.9 12.0 - 14.7 08/28/2018 [facility] HEMATOLOGY INR 0.99 0.85 - 1.17 08/28/2018 [facility] CHEM PANEL Magnesium Lvl 2.1 1.8 - 2.4 08/27/2018 [facility] ELECTROLYTES Chloride Lvl 105 95 - 109 08/27/2018 [facility] ELECTROLYTES Potassium Lvl 4.1 3.5 - 5.1 08/27/2018 [facility] ELECTROLYTES Sodium Lvl 141 135 - 145 08/27/2018 [facility] ELECTROLYTES BUN 12 7 - 22 08/27/2018 [facility] ELECTROLYTES Glucose Lvl 90 70 - 99 08/27/2018 [facility] ELECTROLYTES Creatinine Lvl 0.6 2 0.50 - 1.40 08/27/2018 [facility] ELECTROLYTES Calcium Lvl 8.4 8.5 - 10.5 08/27/2018 [facility] ELECTROLYTES CO2 28 24 - 32 08/27/2018 [facility] ELECTROLYTES eGFR 119 08/27/2018 Result Comment: The [...] should be multiplied by the estimated BMI. [facility] ELECTROLYTES AGAP 12.1 10.0 - 20.0 08/27/2018 [facility] HEMATOLOGY WBC 7.7 3.7 - 10.4 08/27/2018 [facility] HEMATOLOGY Hgb 13.2 12.0 - 16.0 08/27/2018 [facility] RBC 4.56 4.20 - 5.40 08/27/2018 [facility] HEMATOLOGY Hct 39.0 36.0 - 48.0 08/27/2018 [facility] HEMATOLOGY RDW 13.4 11.5 - 14.5 08/27/2018 [facility] MCHC 33.9 32.0 - 36.0 08/27/2018 [facility] MCH 28.9 27.0 - 31.0 08/27/2018 [facility] Platelet 254 133 - 450 08/27/2018 [facility] MCV 85.4 80.0 - 98.0 08/27/2018 [facility] MPV 8.4 7.4 - 10.4 08/27/2018 [facility] Monocytes # 0.9 0.0 - 0.8 08/27/2018 [facility] HEMATOLOGY Eosinophils # 0.5 0.0 - 0.5 08/27/2018 [facility] Basophils # 0.1 0.0 - 0.2 08/27/2018 [facility] Monocytes 11.1 2.0 - 12.0 08/27/2018 [facility] Lymphocytes 24.6 20.0 - 40.0 08/27/2018 [facility] Segs 56.9 45.0 - 75.0 08/27/2018 [facility] HEMATOLOGY Basophils 1.1 0.0 - 1.0 08/27/2018 [facility] HEMATOLOGY Eosinophils 6.3 0.0 - 4.0 08/27/2018 [facility] HEMATOLOGY Neutrophils # 4.4 1.5 - 8.1 08/27/2018 [facility] HEMATOLOGY Lymphocytes # 1.9 1.0 - 5.5 08/27/2018 [facility] TOXICOLOGY Vanco Tr TND 0000 08/27/2018 [facility] TOXICOLOGY Vanco Tr 13.1 08/27/2018 [facility] CHEM PANEL Magnesium Lvl 1.9 1.8 - 2.4 08/26/2018 [facility] CHEM PANEL eGFR 123 08/26/2018 Result Comment: [...] should be multiplied by the estimated BMI. [place] CHEM PANEL Chloride Lvl 106 95 - 109 08/26/2018 [place] CHEM PANEL CO2 27 24 - 32 08/26/2018 [facility] CHEM PANEL BUN 12 7 - 22 08/26/2018 [facility]M PAN[facility] Calcium Lvl 8.0 8.5 - 10.5 08/26/2018 [facility] CHEM PANEL Potassium Lvl 4.0 3.5 - 5.1 08/26/2018 [facility] CHEM PANEL Sodium Lvl 140 135 - 145 08/26/2018 [facility] CHEM PANEL Creatinine Lvl 0.56 0.50 - 1.40 08/26/2018 [facility] CHEM PAN[facility] Glucose Lvl 89 70 - 99 08/26/2018 [facility] CHEM PANEL AGAP 11.0 10.0 - 20.0 08/26/2018 [facility] HEMATOLOGY Monocytes # 0.8 0.0 - 0.8 08/26/2018 [facility] HEMATOLOGY Eosinophils # 0.5 0.0 - 0.5 08/26/2018 [facility] HEMATOLOGY Basophils # 0.1 0.0 - 0.2 08/26/2018 [facility] HEMATOLOGY Eosinophils 5.7 0.0 - 4.0 08/26/2018 [facility] HEMATOLOGY Lymphocytes 23.6 20.0 - 40.0 08/26/2018 [facility] HEMATOLOGY Monocytes 9.6 2.0 - 12.0 08/26/2018 [facility] HEMATOLOGY Basophils 1.0 0.0 - 1.0 08/26/2018 [facility] HEMATOLOGY Neutrophils # 5.2 1.5 - 8.1 08/26/2018 [facility] Lymphocytes # 2.1 1.0 - 5.5 08/26/2018 [facility] HEMATOLOGY Segs 60.1 45.0 - 75.0 08/26/2018 [facility] HEMATOLOGY RDW 13.3 11.5 - 14.5 08/26/2018 [facility] HEMATOLOGY Platelet 228 133 - 450 08/26/2018 [facility] HEMATOLOGY Hct 38.0 36.0 - 48.0 08/26/2018 [facility] HEMATOLOGY RBC 4.40 4.20 - 5.40 08/26/2018 [facility] HEMATOLOGY WBC 8.7 3.7 - 10.4 08/26/2018 [facility] HEMATOLOGY Hgb 12.9 12.0 - 16.0 08/26/2018 [facility] MCH 29.2 27.0 - 31.0 08/26/2018 [facility] HEMATOLOGY MCV 86.2 80.0 - 98.0 08/26/2018 [facility] HEMATOLOGY MCHC 33.9 32.0 - 36.0 08/26/2018 [facility] HEMATOLOGY MPV 8.2 7.4 - 10.4 08/26/2018 [facility] TOXICOLOGY Vanco Tr TND 1330 08/25/2018 [facility] TOXICOLOGY Vanco Tr 15.8 08/25/2018 [facility] CHEM PANEL Phosphorus 3.7 2.5 - 4.5 08/25/2018 [facility] CHEM PANEL B/C Ratio 24 6 - 25 08/25/2018 [facility] CHEM PANEL A/G Ratio 0.8 0.7 - 1.6 08/25/2018 [facility] CHEM PANEL Globulin 3.6 2.7 - 4.2 08/25/2018 [facility] CHEM PANEL Bili Total 0.3 0.2 - 1.3 08/25/2018 [facility] CHEM PANEL Alk Phos 77 39 - 136 08/25/2018 [facility] CHEM PANEL AST 19 0 - 37 08/25/2018 [facility] CHEM PANEL ALT 23 0 - 65 08/25/2018 [facility] CHEM PANEL Albumin Lvl 2.8 3.5 - 5.0 08/25/2018 [facility] CHEM PANEL Total Protein 6.4 6.4 - 8.4 08/25/2018 [facility] CHEM PANEL Procalcitonin Lvl <0.05 0.00 - 0.10 08/24/2018 [facility] CHEM PANEL Lactic Acid Lvl 1.1 0.5 - 2.2 08/24/2018 [facility] IMMUNOLOGY HIV Ag/Ab 4th Gen Negat theron *NA* (08/24/18 5:22 PM) Negative 08/24/2018 [facility] CHEM PANEL Lactic Acid Lvl 2.2 0.5 - 2.2 08/24/2018 [facility] CHEM PANEL Total Protein 7.8 6.4 - 8.4 08/24/2018 [facility] CHEM PANEL Albumin Lvl 3.8 3.5 - 5.0 08/24/2018 [facility] CHEM PANEL Alk Phos 99 39 - 136 08/24/2018 [facility] CHEM PANEL Bili Total 0.3 0.2 - 1.3 08/24/2018 [facility] CHEM PANEL AST 18 0 - 37 08/24/2018 [facility] CHEM PANEL ALT 21 0 - 65 08/24/2018 [facility] CHEM PANEL Globulin 4.0 2.7 - 4.2 08/24/2018 [facility] CHEM PANEL A/G Ratio 1.0 0.7 - 1.6 08/24/2018 [facility] CHEM PANEL B/C Ratio 17 6 - 25 08/24/2018 [facility] ENDOCRINOLOGY S Preg Ne gative *NA* (08/24/18 4:15 AM) Negative 08/24/2018 [facility] HEMATOLOGY Plt Morph Concetta l (08/24/18 4:15 AM) 08/24/2018 [facility] HEMATOLOGY RBC Morph Concetta l (08/24/18 4:15 AM) 08/24/2018 [facility] HEMATOLOGY Large Plt Occasional 08/24/2018 [facility] SPECIAL CHEMISTRY Hgb A1C 5.3 <=5.6 % 08/24/2018 [facility] ELECTROLYTES AGAP 12.2 10.0 - 20.0 05/21/2018 [facility] ELECTROLYTES eGFR 111 05/21/2018 Result Comment: The [...] should be multiplied by the estimated BMI. [facility] ELECTROLYTES Glucose Lvl 89 70 - 99 05/21/2018 [facility] ELECTROLYTES Potassium Lvl 4.2 3.5 - 5.1 05/21/2018 [facility] ELECTROLYTES Chloride Lvl 105 95 - 109 05/21/2018 [facility] ELECTROLYTES Creatinine Lvl 0.7 2 0.50 - 1.40 05/21/2018 [facility] ELECTROLYTES Sodium Lvl 142 135 - 145 05/21/2018 [facility] ELECTROLYTES BUN 9 7 - 22 05/21/2018 [facility] ELECTROLYTES CO2 29 24 - 32 05/21/2018 [facility] ELECTROLYTES Calcium Lvl 8.2 8.5 - 10.5 05/21/2018 [facility] HEMATOLOGY Eosinophils # 0.3 0.0 - 0.5 05/21/2018 [facility] HEMATOLOGY Monocytes # 0.8 0.0 - 0.8 05/21/2018 [facility] HEMATOLOGY Basophils # 0.1 0.0 - 0.2 05/21/2018 [facility] HEMATOLOGY Lymphocytes 32.9 20.0 - 40.0 05/21/2018 [facility] HEMATOLOGY Segs 50.8 45.0 - 75.0 05/21/2018 [facility] HEMATOLOGY Lymphocytes # 2.3 1.0 - 5.5 05/21/2018 [facility] HEMATOLOGY Neutrophils # 3.6 1.5 - 8.1 05/21/2018 [facility] HEMATOLOGY Basophils 0.8 0.0 - 1.0 05/21/2018 [facility] HEMATOLOGY Eosinophils 4.8 0.0 - 4.0 05/21/2018 [facility] HEMATOLOGY Monocytes 10.7 2.0 - 12.0 05/21/2018 [facility] Hct 35.3 36.0 - 48.0 05/21/2018 [facility] Platelet 267 133 - 450 05/21/2018 [facility] RDW 12.9 11.5 - 14.5 05/21/2018 [facility] MCV 85.6 80.0 - 98.0 05/21/2018 [facility] MCHC 34.4 32.0 - 36.0 05/21/2018 [facility] MCH 29.4 27.0 - 31.0 05/21/2018 [facility] MPV 8.4 7.4 - 10.4 05/21/2018 [facility] RBC 4.12 4.20 - 5.40 05/21/2018 [facility] WBC 7.1 3.7 - 10.4 05/21/2018 [facility] HEMATOLOGY Hgb 12.1 12.0 - 16.0 05/21/2018 [facility] TOXICOLOGY Vanco Tr 15.7 05/21/2018 [facility] TOXICOLOGY Vanco Tr TND 0300 05/21/2018 [facility] ELECTROLYTES AGAP 10.9 10.0 - 20.0 05/20/2018 [facility] ELECTROLYTES eGFR 122 05/20/2018 Result Comment: The [...] should be multiplied by the estimated BMI. [facility] ELECTROLYTES CO2 26 24 - 32 05/20/2018 [facility] ELECTROLYTES Chloride Lvl 111 95 - 109 05/20/2018 [facility] ELECTROLYTES Sodium Lvl 144 135 - 145 05/20/2018 [facility] ELECTROLYTES Potassium Lvl 3.9 3.5 - 5.1 05/20/2018 [facility] ELECTROLYTES Calcium Lvl 8.0 8.5 - 10.5 05/20/2018 [facility] ELECTROLYTES Creatinine Lvl 0.5 9 0.50 - 1.40 05/20/2018 [facility] ELECTROLYTES Glucose Lvl 94 70 - 99 05/20/2018 [facility] ELECTROLYTES BUN 9 7 - 22 05/20/2018 [facility] HEMATOLOGY Segs 55.0 45.0 - 75.0 05/20/2018 [facility] HEMATOLOGY Lymphocytes 31.9 20.0 - 40.0 05/20/2018 [facility] HEMATOLOGY Eosinophils 2.3 0.0 - 4.0 05/20/2018 [facility] HEMATOLOGY Monocytes 9.9 2.0 - 12.0 05/20/2018 [facility] HEMATOLOGY Monocytes # 0.7 0.0 - 0.8 05/20/2018 [facility] HEMATOLOGY Lymphocytes # 2.4 1.0 - 5.5 05/20/2018 [facility] HEMATOLOGY Basophils # 0.1 0.0 - 0.2 05/20/2018 [facility] HEMATOLOGY Eosinophils # 0.2 0.0 - 0.5 05/20/2018 [facility] HEMATOLOGY Neutrophils # 4.1 1.5 - 8.1 05/20/2018 [facility] HEMATOLOGY Basophils 0.9 0.0 - 1.0 05/20/2018 [facility] HEMATOLOGY MCH 29.8 27.0 - 31.0 05/20/2018 [facility] HEMATOLOGY MCV 86.8 80.0 - 98.0 05/20/2018 [facility] HEMATOLOGY RBC 3.85 4.20 - 5.40 05/20/2018 [facility] HEMATOLOGY WBC 7.4 3.7 - 10.4 05/20/2018 [facility] HEMATOLOGY Hct 33.4 36.0 - 48.0 05/20/2018 [facility] HEMATOLOGY Hgb 11.5 12.0 - 16.0 05/20/2018 [facility] HEMATOLOGY RDW 12.9 11.5 - 14.5 05/20/2018 [facility] HEMATOLOGY MCHC 34.3 32.0 - 36.0 05/20/2018 [facility] HEMATOLOGY MPV 8.7 7.4 - 10.4 05/20/2018 [facility] Platelet 249 133 - 450 05/20/2018 [facility] ELECTROLYTES AGAP 14.4 10.0 - 20.0 05/19/2018 [facility] ELECTROLYTES eGFR 110 05/19/2018 Result Comment: The [...] should be multiplied by the estimated BMI. [facility] ELECTROLYTES Calcium Lvl 8.2 8.5 - 10.5 05/19/2018 [facility] ELECTROLYTES Potassium Lvl 4.4 3.5 - 5.1 05/19/2018 [facility] ELECTROLYTES Chloride Lvl 109 95 - 109 05/19/2018 [facility] ELECTROLYTES CO2 25 24 - 32 05/19/2018 [facility] ELECTROLYTES Glucose Lvl 131 70 - 99 05/19/2018 [facility] ELECTROLYTES BUN 7 7 - 22 05/19/2018 [facility] ELECTROLYTES Sodium Lvl 144 135 - 145 05/19/2018 [facility] ELECTROLYTES Creatinine Lvl 0.7 3 0.50 - 1.40 05/19/2018 [facility] HEMATOLOGY Basophils 0.3 0.0 - 1.0 05/19/2018 [facility] HEMATOLOGY Eosinophils 0.1 0.0 - 4.0 05/19/2018 [facility] Segs 83.5 45.0 - 75.0 05/19/2018 [facility] Lymphocytes 9.1 20.0 - 40.0 05/19/2018 [facility] Monocytes 7.0 2.0 - 12.0 05/19/2018 [facility] HEMATOLOGY Neutrophils # 8.9 1.5 - 8.1 05/19/2018 [facility] Monocytes # 0.7 0.0 - 0.8 05/19/2018 [facility] Lymphocytes # 1.0 1.0 - 5.5 05/19/2018 [facility] MPV 8.4 7.4 - 10.4 05/19/2018 [facility] Platelet 239 133 - 450 05/19/2018 [facility] HEMATOLOGY RDW 12.8 11.5 - 14.5 05/19/2018 [facility] MCHC 33.2 32.0 - 36.0 05/19/2018 [facility] WBC 10.6 3.7 - 10.4 05/19/2018 [facility] MCV 88.3 80.0 - 98.0 05/19/2018 [facility] Hct 38.9 36.0 - 48.0 05/19/2018 [facility] RBC 4.41 4.20 - 5.40 05/19/2018 [facility] MCH 29.3 27.0 - 31.0 05/19/2018 [facility] Hgb 12.9 12.0 - 16.0 05/19/2018 [facility] TOXICOLOGY Vanco Tr TND 0200 05/19/2018 [facility] TOXICOLOGY Vanco Tr 6.6 05/19/2018 [facility] TOXICOLOGY Vanco Tr 27.1 05/18/2018 [facility] TOXICOLOGY Vanco Tr TND 13:30 05/18/2018 [facility] AMPICILLIN+SULBACTAM:SUSC:PT:ISOLATE:ORDQN:MONISHA Gram Stain Report Many Gram Positive Cocci In Clusters No WBC's Seen 05/18/2018 [facility] AMPICILLIN+SULBACTAM:SUSC:PT:ISOLATE:ORDQN:MONISHA Culture: Wound/Abscess w/Gram Stain Many Staphylococcus aureus 05/18/2018 [facility] AMPICILLIN+SULBACTAM:SUSC:PT:ISOLATE:ORDQN:MONISHA Staphylococcus aureus Staphylococcus aureus 05/18/2018 [facility] Culture: Anaerobic No Anaerobes Is olated 05/18/2018 [facility] CHEM PANEL Magnesium Lvl 1.9 1.8 - 2.4 05/17/2018 [facility] CHEM PANEL B/C Ratio 16 6 - 25 05/17/2018 [facility] CHEM PANEL Total Protein 7.0 6.4 - 8.4 05/17/2018 [facility] CHEM PANEL Globulin 4.0 2.7 - 4.2 05/17/2018 [facility] CHEM PANEL Albumin Lvl 3.0 3.5 - 5.0 05/17/2018 [facility] CHEM PANEL AST 11 0 - 37 05/17/2018 [facility] CHEM PANEL Bili Total 0.4 0.2 - 1.3 05/17/2018 [facility] CHEM PANEL Alk Phos 66 39 - 136 05/17/2018 [facility] CHEM PANEL ALT 19 0 - 65 05/17/2018 [facility] CHEM PANEL A/G Ratio 0.8 0.7 - 1.6 05/17/2018 [facility] HEMATOLOGY INR 1.14 0.85 - 1.17 05/17/2018 [facility] HEMATOLOGY PT 14.6 12.0 - 14.7 05/17/2018 [facility] HEMATOLOGY PTT 36.4 22.9 - 35.8 05/17/2018 [facility] HEMATOLOGY Basophils # 0.1 0.0 - 0.2 05/17/2018 [facility] HEMATOLOGY Eosinophils # 0.3 0.0 - 0.5 05/17/2018 [facility] CHEM PANEL Lactic Acid Lvl 1.3 0.5 - 2.2 05/17/2018 [facility] CHEM PANEL Globulin 4.1 2.7 - 4.2 05/17/2018 [facility] CHEM PANEL A/G Ratio 0.8 0.7 - 1.6 05/17/2018 [facility] CHEM PANEL B/C Ratio 13 6 - 25 05/17/2018 [facility] CHEM PANEL ALT 21 0 - 65 05/17/2018 [facility] CHEM PANEL AST 14 0 - 37 05/17/2018 [facility] CHEM PANEL Alk Phos 71 39 - 136 05/17/2018 [facility] CHEM PANEL Bili Total 0.2 0.2 - 1.3 05/17/2018 [facility] CHEM PANEL Albumin Lvl 3.2 3.5 - 5.0 05/17/2018 [facility] CHEM [facility] Total Protein 7.3 6.4 - 8.4 05/17/2018 [facility] ENDOCRINOLOGY S Preg Ne gative *NA* (05/17/18 12:24 AM) Negative 05/17/2018 [facility] CARDIAC ENZYMES Troponin-I <0.02 0.00 - 0.40 01/12/2018 [facility] CHEM PANEL A/G Ratio 1.0 0.7 - 1.6 01/12/2018 [facility] CHEM PANEL B/C Ratio 13 6 - 25 01/12/2018 [facility] CHEM PANEL Globulin 3.5 2.7 - 4.2 01/12/2018 [facility] CHEM PANEL AGAP 12.2 10.0 - 20.0 01/12/2018 [facility] CHEM PANEL eGFR 102 01/12/2018 Result Comment: [...] should be multiplied by the estimated BMI. [facility] CHEM PANEL Alk Phos 76 39 - 136 01/12/2018 [facility] CHEM PANEL AST 39 0 - 37 01/12/2018 [facility] CHEM PANEL ALT 38 0 - 65 01/12/2018 [facility] CHEM PANEL Bili Total 0.7 0.2 - 1.3 01/12/2018 [facility] CHEM PANEL Glucose Lvl 93 70 - 99 01/12/2018 [facility] CHEM PANEL Creatinine Lvl 0.78 0.50 - 1.40 01/12/2018 [facility] CHEM PANEL BUN 10 7 - 22 01/12/2018 [facility] CHEM PANEL Sodium Lvl 139 135 - 145 01/12/2018 [facility] CHEM PANEL Calcium Lvl 8.3 8.5 - 10.5 01/12/2018 [facility] CHEM PANEL Total Protein 7.0 6.4 - 8.4 01/12/2018 [facility] CHEM PANEL Albumin Lvl 3.5 3.5 - 5.0 01/12/2018 [facility] CHEM PANEL CO2 24 24 - 32 01/12/2018 [facility] CHEM PANEL Chloride Lvl 107 95 - 109 01/12/2018 [facility] CHEM PANEL Potassium Lvl 4.2 3.5 - 5.1 01/12/2018 [facility] ENDOCRINOLOGY S Preg Ne gative *NA* (01/12/18 4:58 PM) Negative 01/12/2018 [facility] HEMATOLOGY Lymphocytes # 2.4 1.0 - 5.5 01/12/2018 [facility] HEMATOLOGY Monocytes # 0.9 0.0 - 0.8 01/12/2018 [facility] HEMATOLOGY Segs-Bands # 6.6 1.5 - 8.1 01/12/2018 [facility] HEMATOLOGY Eosinophils 5.1 0.0 - 4.0 01/12/2018 [facility] Lymphocytes 22.9 20.0 - 40.0 01/12/2018 [facility] HEMATOLOGY Basophils 0.8 0.0 - 1.0 01/12/2018 [facility] HEMATOLOGY Monocytes 8.8 2.0 - 12.0 01/12/2018 [facility] HEMATOLOGY Segs 62.4 45.0 - 75.0 01/12/2018 [facility] HEMATOLOGY Eosinophils # 0.5 0.0 - 0.5 01/12/2018 [facility] Basophils # 0.1 0.0 - 0.2 01/12/2018 [facility] HEMATOLOGY MPV 9.0 7.4 - 10.4 01/12/2018 [facility] HEMATOLOGY RBC 4.80 4.20 - 5.40 01/12/2018 [facility] HEMATOLOGY WBC 10.6 3.7 - 10.4 01/12/2018 [facility] HEMATOLOGY Hgb 14.2 12.0 - 16.0 01/12/2018 [facility] HEMATOLOGY Platelet 227 133 - 450 01/12/2018 [facility] HEMATOLOGY RDW 12.7 11.5 - 14.5 01/12/2018 [facility] MCHC 33.4 32.0 - 36.0 01/12/2018 [facility] HEMATOLOGY MCV 88.3 80.0 - 98.0 01/12/2018 [facility] HEMATOLOGY Hct 42.4 36.0 - 48.0 01/12/2018 [facility] HEMATOLOGY MCH 29.5 27.0 - 31.0 01/12/2018 [facility] CHEM PANEL eGFR 108 12/31/2016 Result Comment: [...] should be multiplied by the estimated BMI. [facility] CHEM PANEL Glucose Lvl 86 70 - 99 12/31/2016 [facility] CHEM PANEL Sodium Lvl 139 135 - 145 12/31/2016 [facility] CHEM PANEL BUN 9 7 - 22 12/31/2016 [facility] CHEM PANEL Creatinine Lvl 0.74 0.50 - 1.40 12/31/2016 [facility] CHEM PANEL Total Protein 7.1 6.4 - 8.4 12/31/2016 [facility] CHEM PANEL CO2 25 24 - 32 12/31/2016 [facility] CHEM PANEL Calcium Lvl 8.7 8.5 - 10.5 12/31/2016 [facility] CHEM PANEL Potassium Lvl 3.8 3.5 - 5.1 12/31/2016 [facility] CHEM PANEL Chloride Lvl 106 95 - 109 12/31/2016 [facility] CHEM PANEL AST 13 0 - 37 12/31/2016 [facility] CHEM PANEL Alk Phos 83 39 - 136 12/31/2016 [facility] CHEM PANEL Albumin Lvl 3.5 3.5 - 5.0 12/31/2016 [facility] CHEM PANEL ALT 22 0 - 65 12/31/2016 [facility] CHEM PANEL Bili Total 0.4 0.2 - 1.3 12/31/2016 [facility] CHEM PANEL B/C Ratio 12 6 - 25 12/31/2016 [facility] CHEM PANEL Globulin 3.6 2.7 - 4.2 12/31/2016 [facility] CHEM PANEL A/G Ratio 1.0 0.7 - 1.6 12/31/2016 [facility] CHEM PANEL AGAP 11.8 10.0 - 20.0 12/31/2016 [facility] CHEM PANEL Lipase Lvl 135 73 - 393 12/31/2016 [facility] ENDOCRINOLOGY S Preg Ne gative *NA* (12/31/16 12:53 AM) Negative 12/31/2016 [facility] HEMATOLOGY Segs 53.9 45.0 - 75.0 12/31/2016 [facility] HEMATOLOGY Eosinophils 4.9 0.0 - 4.0 12/31/2016 [facility] HEMATOLOGY Basophils 1.2 0.0 - 1.0 12/31/2016 [facility] HEMATOLOGY Segs-Bands # 5.0 1.5 - 8.1 12/31/2016 [facility] HEMATOLOGY Lymphocytes 31.8 20.0 - 40.0 12/31/2016 [facility] HEMATOLOGY Monocytes 8.2 2.0 - 12.0 12/31/2016 [facility] HEMATOLOGY Basophils # 0.1 0.0 - 0.2 12/31/2016 [facility] Lymphocytes # 3.0 1.0 - 5.5 12/31/2016 [facility] HEMATOLOGY Monocytes # 0.8 0.0 - 0.8 12/31/2016 [facility] HEMATOLOGY Eosinophils # 0.5 0.0 - 0.5 12/31/2016 [facility] MPV 9.6 7.4 - 10.4 12/31/2016 [facility] MCHC 33.1 32.0 - 36.0 12/31/2016 [facility] RDW 12.4 11.5 - 14.5 12/31/2016 [facility] HEMATOLOGY Platelet 214 133 - 450 12/31/2016 [facility] HEMATOLOGY MCV 89.8 80.0 - 98.0 12/31/2016 [facility] MCH 29.7 27.0 - 31.0 12/31/2016 [facility] HEMATOLOGY Hct 45.3 36.0 - 48.0 12/31/2016 [facility] HEMATOLOGY WBC 9.3 3.7 - 10.4 12/31/2016 [facility] RBC 5.04 4.20 - 5.40 12/31/2016 [facility] Hgb 15.0 12.0 - 16.0 12/31/2016 [facility] URINE AND STOOL UA Mucus Many /LPF None Seen /LPF 12/31/2016 [facility] URINE AND STOOL UA Amorph Miriam Occasional /HPF None Seen /HPF 12/31/2016 [facility] URINE AND STOOL UA RBC 33 0 - 2 12/31/2016 [facility] URINE AND STOOL UA WBC 27 0 - 5 12/31/2016 [facility] URINE AND STOOL UA Bacteria Many /HPF None Seen /HPF 12/31/2016 [facility] URINE AND STOOL UA Sq Epi Many /LPF Few /LPF 12/31/2016 [facility] URINE AND STOOL UA Protein 100 mg/dL Negative mg/dL 12/31/2016 [facility] URINE AND STOOL UA Ketones Trace *ABN* (12/31/16 12:53 AM) Negative 12/31/2016 [facility] URINE AND STOOL UA Blood Large *ABN* (12/31/16 12:53 AM) Negative 12/31/2016 [facility] URINE AND STOOL UA Bili Moderate *ABN* (12/31/16 12:53 AM) Negative 12/31/2016 [facility] URINE AND STOOL UA Color Gina *ABN* (12/31/16 12:53 AM) Yellow 12/31/2016 [facility] URINE AND STOOL UA Nitrite Positive *ABN* (12/31/16 12:53 AM) Negative 12/31/2016 [facility] URINE AND STOOL UA Urobilinogen 2.0 0.1 - 1.0 12/31/2016 [facility] URINE AND STOOL UA Leuk Est Trace *ABN* (12/31/16 12:53 AM) Negative 12/31/2016 [facility] URINE AND STOOL UA Turbidity Cloudy *ABN* (12/31/16 12:53 AM) Clear 12/31/2016 [facility] URINE AND STOOL UA Spec Grav 1.025 <=1.030 12/31/2016 [facility] URINE AND STOOL UA pH 6.5 5.0 - 8.0 12/31/2016 [facility] URINE AND STOOL UA Glucose Negative (12/31/16 12:53 AM) Negative 12/31/2016 [facility] CHEM PANEL Lipase Lvl 156 73 - 393 12/25/2016 [facility] CHEM PANEL eGFR 96 12/25/2016 Result Comment: [...] Alk Phos 94 39 - 136 12/25/2016 [facility] CHEM PANEL Creatinine Lvl 0.82 0.50 - [...] PANEL Globulin 4.0 2.7 - 4.2 12/25/2016 [facility] HEMATOLOGY PTT 32.0 22.9 - 35.8 12/25/2016 [facility] HEMATOLOGY INR 1.10 0.85 - 1.17 12/25/2016 [facility] HEMATOLOGY PT 14.4 12.0 - 14.7 12/25/2016 [facility] HEMATOLOGY Hgb 15.1 12.0 - 16.0 12/25/2016 [facility] HEMATOLOGY Hct 45.6 36.0 - 48.0 12/25/2016 [facility] HEMATOLOGY MCV 89.9 80.0 - 98.0 12/25/2016 [facility] HEMATOLOGY MCH 29.8 27.0 - 31.0 12/25/2016 [facility] HEMATOLOGY WBC 10.7 3.7 - 10.4 12/25/2016 [facility] HEMATOLOGY RBC 5.08 4.20 - 5.40 12/25/2016 [facility] HEMATOLOGY MCHC 33.2 32.0 - 36.0 12/25/2016 [facility] HEMATOLOGY RDW 12.7 11.5 - 14.5 12/25/2016 [facility] HEMATOLOGY MPV 9.3 7.4 - 10.4 12/25/2016 [facility] HEMATOLOGY Platelet 232 133 - 450 12/25/2016 [facility] HEMATOLOGY Eosinophils 1.9 0.0 - 4.0 12/25/2016 [facility] HEMATOLOGY Basophils 0.7 0.0 - 1.0 12/25/2016 [facility] HEMATOLOGY Monocytes 6.7 2.0 - 12.0 12/25/2016 [facility] HEMATOLOGY Lymphocytes # 2.5 1.0 - 5.5 12/25/2016 [facility] HEMATOLOGY Monocytes # 0.7 0.0 - 0.8 12/25/2016 [facility] HEMATOLOGY Segs-Bands # 7.2 1.5 - 8.1 12/25/2016 [facility] HEMATOLOGY Eosinophils # 0.2 0.0 - 0.5 12/25/2016 [facility] HEMATOLOGY Basophils # 0.1 0.0 - 0.2 12/25/2016 [facility] HEMATOLOGY Segs 67.6 45.0 - 75.0 12/25/2016 [facility] HEMATOLOGY Lymphocytes 23.1 20.0 - 40.0 12/25/2016 [facility] CHEM PANEL Lipase Lvl 165 73 - 393 07/20/2016 [facility] CHEM PANEL A/G Ratio 1.0 0.7 - 1.6 07/20/2016 [facility] CHEM PANEL Globulin 3.9 2.7 - 4.2 07/20/2016 [facility] CHEM PANEL B/C Ratio 10 6 - 25 07/20/2016 [facility] CHEM PANEL AGAP 13.0 10.0 - 20.0 07/20/2016 [facility] CHEM PANEL AST 18 0 - 37 07/20/2016 [facility] CHEM PANEL ALT 24 0 - 65 07/20/2016 [facility] CHEM PANEL eGFR 117 07/20/2016 Result Comment: [...] should be multiplied by the estimated BMI. [facility] CHEM PANEL Albumin Lvl 3.9 3.5 - 5.0 07/20/2016 [facility] CHEM PANEL Total Protein 7.8 6.4 - 8.4 07/20/2016 [facility] CHEM PANEL Calcium Lvl 8.7 8.5 - 10.5 07/20/2016 [facility] CHEM PANEL Bili Total 0.3 0.2 - 1.3 07/20/2016 [facility] CHEM PANEL Alk Phos 79 39 - 136 07/20/2016 [facility] CHEM PANEL Creatinine Lvl 0.70 0.50 - 1.40 07/20/2016 [facility] CHEM PANEL BUN 7 7 - 22 07/20/2016 [facility] CHEM PANEL CO2 28 24 - 32 07/20/2016 [facility] CHEM PANEL Chloride Lvl 104 95 - 109 07/20/2016 [facility] CHEM PANEL Potassium Lvl 4.0 3.5 - 5.1 07/20/2016 [facility] CHEM PANEL Sodium Lvl 141 135 - 145 07/20/2016 [facility] CHEM PANEL Glucose Lvl 84 70 - 99 07/20/2016 [facility] HEMATOLOGY RDW 12.6 11.5 - 14.5 07/20/2016 [facility] HEMATOLOGY Platelet 238 133 - 450 07/20/2016 [facility] HEMATOLOGY Hgb 15.3 12.0 - 16.0 07/20/2016 [facility] HEMATOLOGY RBC 5.08 4.20 - 5.40 07/20/2016 [facility] HEMATOLOGY WBC 10.8 3.7 - 10.4 07/20/2016 [facility] HEMATOLOGY MPV 8.9 7.4 - 10.4 07/20/2016 [facility] HEMATOLOGY MCV 88.5 80.0 - 98.0 07/20/2016 [facility] HEMATOLOGY Hct 44.9 36.0 - 48.0 07/20/2016 [facility] HEMATOLOGY MCH 30.1 27.0 - 31.0 07/20/2016 [facility] HEMATOLOGY MCHC 34.0 32.0 - 36.0 07/20/2016 [facility] HEMATOLOGY Eosinophils # 0.6 0.0 - 0.5 07/20/2016 [facility] HEMATOLOGY Basophils # 0.1 0.0 - 0.2 07/20/2016 [facility] HEMATOLOGY Lymphocytes # 2.6 1.0 - 5.5 07/20/2016 [facility] HEMATOLOGY Monocytes # 0.5 0.0 - 0.8 07/20/2016 [facility] HEMATOLOGY Segs-Bands # 7.0 1.5 - 8.1 07/20/2016 [facility] HEMATOLOGY Eosinophils 5.6 0.0 - 4.0 07/20/2016 [facility] HEMATOLOGY Basophils 0.9 0.0 - 1.0 07/20/2016 [facility] HEMATOLOGY Monocytes 4.6 2.0 - 12.0 07/20/2016 [facility] HEMATOLOGY Segs 65.0 45.0 - 75.0 07/20/2016 [facility] HEMATOLOGY Lymphocytes 23.9 20.0 - 40.0 07/20/2016 [facility] URINE AND STOOL UA Urobilinogen <=1.0 mg/dL 0.1 - 1.0 07/20/2016 [facility] URINE AND STOOL UA Color Colorless 07/20/2016 [facility] URINE AND STOOL UA pH 8.0 5.0 - 8.0 07/20/2016 [facility] URINE AND STOOL UA Protein Negative mg/dL Negative mg/dL 07/20/2016 [facility] URINE AND STOOL UA Turbidity Clear (07/19/16 7:59 PM) Clear 07/20/2016 [facility] URINE AND STOOL UA Spec Grav 1.005 <=1.030 07/20/2016 [facility] URINE AND STOOL UA Nitrite Negative (07/19/16 7:59 PM) Negative 07/20/2016 [facility] URINE AND STOOL UA Glucose Negative mg/dL Negative mg/dL 07/20/2016 [facility] URINE AND STOOL UA Sq Epi Occasional /LPF Few /LPF 07/20/2016 [facility] URINE AND STOOL UA Blood Small *ABN* (07/19/16 7:59 PM) Negative 07/20/2016 [facility] URINE AND STOOL UA Leuk Est Negative (07/19/16 7:59 PM) Negative 07/20/2016 [facility] URINE AND STOOL UA Bili Negative *NA* (07/19/16 7:59 PM) Negative 07/20/2016 [facility] URINE AND STOOL UA Bacteria Occasional /HPF None Seen /HPF 07/20/2016 [facility] URINE AND STOOL UA Ketones Negative mg/dL Negative mg/dL 07/20/2016 [facility] URINE AND STOOL UA WBC <1 0 - 5 07/20/2016 [facility] URINE AND STOOL UA RBC 1 0 - 2 07/20/2016 [facility] URINE CHEM U Preg Negat theron (07/19/16 7:59 PM) Negative 07/20/2016 [facility] CHEM PANEL Creatinine Lvl 0.66 0.50 - 1.40 04/14/2016 [facility] CHEM PANEL Potassium Lvl 3.7 3.5 - 5.1 04/14/2016 [facility] CHEM PANEL Sodium Lvl 138 135 - 145 04/14/2016 [facility] CHEM PANEL Glucose Lvl 87 70 - 99 04/14/2016 [facility] CHEM PANEL BUN 13 7 - 22 04/14/2016 [facility] CHEM PANEL Chloride Lvl 107 95 - 109 04/14/2016 [facility] CHEM PANEL ALT 22 0 - 65 04/14/2016 [facility] CHEM PANEL Albumin Lvl 3.8 3.5 - 5.0 04/14/2016 [facility] CHEM PANEL CO2 26 24 - 32 04/14/2016 [facility] CHEM PANEL eGFR 119 04/14/2016 Result Comment: [...] should be multiplied by the estimated BMI. [facility] CHEM PANEL Bili Total 0.3 0.2 - 1.3 04/14/2016 [facility] CHEM PANEL Alk Phos 72 39 - 136 04/14/2016 [facility] CHEM PANEL AST 13 0 - 37 04/14/2016 [facility] CHEM PANEL Total Protein 7.4 6.4 - 8.4 04/14/2016 [facility] CHEM PANEL Calcium Lvl 8.3 8.5 - 10.5 04/14/2016 [facility] CHEM PANEL Globulin 3.6 2.7 - 4.2 04/14/2016 [facility] CHEM PANEL A/G Ratio 1.1 0.7 - 1.6 04/14/2016 [facility] CHEM PANEL B/C Ratio 20 6 - 25 04/14/2016 [facility] CHEM PANEL AGAP 8.7 10.0 - 20.0 04/14/2016 [facility] CHEM PANEL Lipase Lvl 166 73 - 393 04/14/2016 [facility] CHEM PANEL Amylase Lvl 45 25 - 115 04/14/2016 [facility] MCH 29.2 27.0 - 31.0 04/14/2016 [facility] HEMATOLOGY MCV 87.0 80.0 - 98.0 04/14/2016 [facility] HEMATOLOGY Hct 40.7 36.0 - 48.0 04/14/2016 [facility] Hgb 13.6 12.0 - 16.0 04/14/2016 [facility] RBC 4.67 4.20 - 5.40 04/14/2016 [facility] HEMATOLOGY MPV 8.6 7.4 - 10.4 04/14/2016 [facility] Platelet 207 133 - 450 04/14/2016 [facility] MCHC 33.6 32.0 - 36.0 04/14/2016 [facility] RDW 13.0 11.5 - 14.5 04/14/2016 [facility] WBC 11.2 3.7 - 10.4 04/14/2016 [facility] Monocytes # 0.9 0.0 - 0.8 04/14/2016 [facility] Lymphocytes # 3.3 1.0 - 5.5 04/14/2016 [facility] HEMATOLOGY Segs-Bands # 6.3 1.5 - 8.1 04/14/2016 [facility] HEMATOLOGY Basophils 0.8 0.0 - 1.0 04/14/2016 [facility] HEMATOLOGY Eosinophils 5.9 0.0 - 4.0 04/14/2016 [facility] HEMATOLOGY Monocytes 8.2 2.0 - 12.0 04/14/2016 [facility] HEMATOLOGY Lymphocytes 29.1 20.0 - 40.0 04/14/2016 [facility] HEMATOLOGY Segs 56.0 45.0 - 75.0 04/14/2016 [facility] HEMATOLOGY Basophils # 0.1 0.0 - 0.2 04/14/2016 [facility] HEMATOLOGY Eosinophils # 0.7 0.0 - 0.5 04/14/2016 [facility] URINE AND STOOL UA Blood Large *ABN* (04/14/16 1:13 AM) Negative 04/14/2016 [facility] URINE AND STOOL UA Bili Negative *NA* (04/14/16 1:13 AM) Negative 04/14/2016 [facility] URINE AND STOOL UA pH 5.0 5.0 - 8.0 04/14/2016 [facility] URINE AND STOOL UA Spec Grav 1.020 <=1.030 04/14/2016 [facility] URINE AND STOOL UA Turbidity Slight *ABN* (04/14/16 1:13 AM) Clear 04/14/2016 [facility] URINE AND STOOL UA Protein Negative mg/dL Negative mg/dL 04/14/2016 [facility] URINE AND STOOL UA Nitrite Negative (04/14/16 1:13 AM) Negative 04/14/2016 [facility] URINE AND STOOL UA WBC 7 0 - 5 04/14/2016 [facility] URINE AND STOOL UA Sq Epi Many /LPF Few /LPF 04/14/2016 [facility] URINE AND STOOL UA RBC 3 0 - 2 04/14/2016 [facility] URINE AND STOOL UA Leuk Est Trace *ABN* (04/14/16 1:13 AM) Negative 04/14/2016 [facility] URINE AND STOOL UA Ketones Negative mg/dL Negative mg/dL 04/14/2016 [facility] URINE AND STOOL UA Glucose Negative mg/dL Negative mg/dL 04/14/2016 [facility] URINE AND STOOL UA Bacteria Many /HPF None Seen /HPF 04/14/2016 [facility] URINE AND STOOL UA Mucus Few /LPF None Seen /LPF 04/14/2016 [facility] URINE AND STOOL UA Urobilinogen <=1.0 mg/dL 0.1 - 1.0 04/14/2016 [facility] URINE AND STOOL UA Color Yellow *NA* (04/14/16 1:13 AM) Yellow 04/14/2016 [facility] URINE CHEM U Preg Negat theron (04/14/16 1:13 AM) Negative 04/14/2016 [facility] URINE AND STOOL UA Color Gina 02/24/2016 [facility] URINE AND STOOL UA WBC 7 0 - 5 02/24/2016 [facility] URINE AND STOOL UA Bili Negative *NA* (02/24/16 12:51 AM) Negative 02/24/2016 [facility] URINE AND STOOL UA Leuk Est Trace *ABN* (02/24/16 12:51 AM) Negative 02/24/2016 [facility] URINE AND STOOL UA Sq Epi Moderate /LPF Few /LPF 02/24/2016 [facility] URINE AND STOOL UA Urobilinogen 2.0 0.1 - 1.0 02/24/2016 [facility] URINE AND STOOL UA Nitrite Negative (02/24/16 12:51 AM) Negative 02/24/2016 [facility] URINE AND STOOL UA Blood Small *ABN* (02/24/16 12:51 AM) Negative 02/24/2016 [facility] URINE AND STOOL UA Mucus Many /LPF None Seen /LPF 02/24/2016 [facility] URINE AND STOOL UA RBC 8 0 - 2 02/24/2016 [facility] URINE AND STOOL UA Bacteria Occasional /HPF None Seen /HPF 02/24/2016 [facility] URINE AND STOOL UA Turbidity Clear (02/24/16 12:51 AM) Clear 02/24/2016 [facility] URINE AND STOOL UA Spec Grav 1.027 <=1.030 02/24/2016 [facility] URINE AND STOOL UA Glucose Negative mg/dL Negative mg/dL 02/24/[address] [facility] [address] URINE AND STOOL UA Ketones Trace mg/dL Negative mg/dL 02/24/[address] [facility] [address] URINE AND STOOL UA pH 7.0 5.0 - 8.0 02/24/2016 [facility] URINE AND STOOL UA Protein 30 mg/dL Negative mg/dL 02/24/2016 [facility] URINE CHEM U Preg Negat theron (02/24/16 12:51 AM) Negative 02/24/2016 [facility] CHEM PANEL Alk Phos 81 39 - [...] A/G Ratio 0.9 0.7 - 1.6 02/24/2016 [facility] CHEM PANEL Globulin 4.2 2.0 - 4.0 02/24/2016 [facility] CHEM PANEL Albumin Lvl 3.8 3.5 - 5.0 02/24/2016 [facility] CHEM PANEL Lipase Lvl 127 73 - 393 02/24/2016 [facility] CHEM PANEL Amylase Lvl 45 25 - 115 02/24/2016 [facility] HEMATOLOGY Hct 44.3 36.0 - 48.0 02/24/2016 [facility] HEMATOLOGY Hgb 14.4 12.0 - 16.0 02/24/2016 [facility] HEMATOLOGY RBC 4.96 4.20 - 5.40 02/24/2016 [facility] HEMATOLOGY WBC 12.3 3.7 - 10.4 02/24/2016 [facility] HEMATOLOGY MCV 89.3 80.0 - 98.0 02/24/2016 [facility] HEMATOLOGY Platelet 209 133 - 450 02/24/2016 [facility] HEMATOLOGY RDW 13.1 11.5 - 14.5 02/24/2016 [facility] HEMATOLOGY MCHC 32.4 32.0 - 36.0 02/24/2016 [facility] MCH 29.0 27.0 - 31.0 02/24/2016 [facility] HEMATOLOGY MPV 8.7 7.4 - 10.4 02/24/2016 [facility] HEMATOLOGY Segs 62.1 45.0 - 75.0 02/24/2016 [facility] HEMATOLOGY Basophils 0.8 0.0 - 1.0 02/24/2016 [facility] HEMATOLOGY Eosinophils 4.6 0.0 - 4.0 02/24/2016 [facility] HEMATOLOGY Monocytes 7.6 2.0 - 12.0 02/24/2016 [facility] HEMATOLOGY Lymphocytes 24.9 20.0 - 40.0 02/24/2016 [facility] HEMATOLOGY Segs-Bands # 7.7 1.5 - 8.1 02/24/2016 [facility] HEMATOLOGY Eosinophils # 0.6 0.0 - 0.5 02/24/2016 [facility] HEMATOLOGY Lymphocytes # 3.1 1.0 - 5.5 02/24/2016 [facility] HEMATOLOGY Basophils # 0.1 0.0 - 0.2 02/24/2016 [facility] HEMATOLOGY Monocytes # 0.9 0.0 - 0.8 02/24/2016 [facility] CHEM PANEL Lipase Lvl 126 73 - 393 01/17/2016 [facility] CHEM PANEL Globulin 4.1 2.0 - 4.0 01/17/2016 [place] CHEM PANEL A/G Ratio 0.9 0.7 - 1.6 01/17/2016 [place] CHEM PANEL AGAP 11.0 10.0 - 20.0 01/17/2016 [place] CHEM PANEL B/C Ratio 11 6 - 25 01/17/2016 [place] CHEM PANEL eGFR 119 01/17/2016 Result Comment: [...] should be multiplied by the estimated BMI. [place] CHEM PANEL Total Protein 7.9 6.4 - 8.4 [facility]/17/2016 [facility] ASPARTATE TRANSAMINASE 16 0 - 37 01/17/2016 [place] CHEM PANEL Bili Total 0.4 0.2 - 1.3 01/17/2016 [place] CHEM PANEL Potassium Lvl 4.0 3.5 - 5.1 01/17/2016 [place] CHEM PANEL CO2 27 24 - 32 01/17/2016 [place] CHEM PANEL Chloride Lvl 105 95 - 109 01/17/2016 [place] CHEM PANEL Calcium Lvl 8.5 8.5 - 10.5 01/17/2016 [place] CHEM PANEL Sodium Lvl 139 135 - 145 01/17/2016 [place] CHEM PANEL Glucose Lvl 84 70 - 99 01/17/2016 [place] CHEM PANEL Alk Phos 88 39 - 136 01/17/2016 [place] CHEM PANEL Creatinine Lvl 0.66 0.50 - 1.40 01/17/2016 [place] CHEM PANEL BUN 7 7 - 22 01/17/2016 [facility] CHEM PANEL Albumin Lvl 3.8 3.5 - 5.0 01/17/2016 [facility] CHEM PANEL ALANINE AMINOTRANSFERASE 27 0 - 65 01/17/2016 [facility] HEMATOLOGY Segs-Bands # 6.4 1.5 - 8.1 01/17/2016 [facility] HEMATOLOGY Lymphocytes # 2.4 1.0 - 5.5 01/17/2016 [facility] HEMATOLOGY Monocytes # 0.6 0.0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 series DX Patient Nam e: COLLEEN BEDOLLA : 1985; Age: 30 years y/o Female MR: [id number] * LEFT SHOULDER, 3 views History: Injury, trauma to left shoulder. Left shoulder pain. Technique: The left shoulder was evaluated in frontal projection in internal and external rotation. A transthoracic view was also obtained. FINDINGS: There is no evidence of fracture, dislocation, or acute change. There are no degenerative changes or other significant osseous abnormalities. IMPRESSION: 1. Negative left shoulder. SL: MAAME 04/23/2016 [facility] Spine thoracic 3 views DX Stud y: [...] or pathologic sublu xation. SL: JNDEJAN 04/16/2016 [facility] cervical 2 or 3 view DX Study: [...] patholo gic subluxation detected. SL: JNRAFAEL 04/16/2016 [facility] lumbar 2 or 3 views DX S [...] the right upper quadrant. SL: BRAYAN 04/16/2016 [facility] Abdomen/Pelvis wo IV contrast CT Study: Abdomen/Pelvis [...] diverticulosis without acute diverticulitis. SL: DEVYN 01/17/2016 [facility] w Transvag and Pelvis Doppler US PELVIC [...] ultrasound. SL: 12 Teddy Zafar M.D. 05/17/2015 [facility] ED Abdomen/Pelvis IV contrast only CT CT [...] 2. Mild descending diverticulosis. SL: 12 05/15/2015 [facility] Consultation Notes No Data Provided for This Section Discharge Summaries No Data Provided for This Section History and Physicals No Data Provided for This Section Vital Signs Vital Sign Value Date Comments Source Temperature Oral (F) 98.6 F 03/26/2020 [facility] Heart Rate 75 03/26/2020 [facility] Systolic (mm Hg) 112 03/26/2020 [facility] Diastolic (mm Hg) 73 03/26/2020 [facility] Temperature Oral (F) 98.2 F 03/26/2020 [facility] Heart Rate 96 03/26/2020 [facility] Respitory Rate 16 03/26/2020 [facility] Systolic (mm Hg) 137 03/26/2020 [facility] Diastolic (mm Hg) 92 03/26/2020 [facility] Temperature Oral (F) 98.1 F 03/26/2020 [facility] Heart Rate 109 03/26/2020 [facility] Respitory Rate 18 03/26/2020 [facility] Systolic (mm Hg) 116 03/26/2020 [facility] Diastolic (mm Hg) 66 03/26/2020 [facility] Respitory Rate 18 03/26/2020 [facility] Height 167.64 cm 03/23/2020 [facility] Weight 124.091 03/23/2020 [facility] BMI Calculated 44.16 03/23/2020 [facility] Temperature Oral (F) 99.3 F 11/04/2019 [facility] Heart Rate 99 11/04/2019 [facility] Respitory Rate 18 11/04/2019 [facility] Systolic (mm Hg) 117 11/04/2019 [facility] Diastolic (mm Hg) 80 11/04/2019 [facility] Temperature Oral (F) 98.2 F 11/04/2019 [facility] Heart Rate 94 11/04/2019 [facility] Respitory Rate 18 11/04/2019 [facility] Systolic (mm Hg) 130 11/04/2019 [facility] Diastolic (mm Hg) 93 11/04/2019 [facility] Temperature Oral (F) 98.2 F 11/04/2019 [facility] Heart Rate 107 11/04/2019 [facility] Systolic (mm Hg) 152 11/04/2019 [facility] Diastolic (mm Hg) 80 11/04/2019 [facility] Respitory Rate 18 11/04/2019 [facility] Height 167.64 cm 11/02/2019 [facility] Weight 125 11/02/2019 [facility] BMI Calculated 44.48 11/02/2019 [facility] Temperature Oral (F) 98 F 05/25/2019 [facility] Heart Rate 92 05/25/2019 [facility] Respitory Rate 18 05/25/2019 [facility] Systolic (mm Hg) 138 05/25/2019 [facility] Diastolic (mm Hg) 86 05/25/2019 [facility] Temperature Oral (F) 98 F 05/25/2019 [facility] Heart Rate 96 05/25/2019 [facility] Respitory Rate 18 05/25/2019 [facility] Systolic (mm Hg) 140 05/25/2019 [facility] Diastolic (mm Hg) 86 05/25/2019 [facility] Systolic (mm Hg) 134 05/25/2019 [facility] Diastolic (mm Hg) 93 05/25/2019 [facility] Heart Rate 94 05/25/2019 [facility] Respitory Rate 18 05/25/2019 [facility] Temperature Oral (F) 98.2 F 05/25/2019 [facility] Height 167.64 cm 05/25/2019 [facility] BMI Calculated 44.48 05/25/2019 [facility] Weight 125 05/25/2019 [facility] Systolic (mm Hg) 111 05/16/2019 [facility] Diastolic (mm Hg) 73 05/16/2019 [facility] Respitory Rate 16 05/16/2019 [facility] Heart Rate 89 05/16/2019 [facility] Temperature Oral (F) 98.6 F 05/16/2019 [facility] Systolic (mm Hg) 111 05/16/2019 [facility] Diastolic (mm Hg) 79 05/16/2019 [facility] Heart Rate 98 05/16/2019 [facility] Respitory Rate 16 05/16/2019 [facility] [place] Temperature Oral (F) 98.8 F 05/16/2019 [facility] Height 167.64 cm 05/16/2019 [facility] BMI Calculated 45.29 05/16/2019 [facility] Weight 127.273 05/16/2019 [facility] Temperature Oral (F) 98.6 F 04/04/2019 [facility] Heart Rate 88 04/04/2019 [facility] Respitory Rate 18 04/04/2019 [facility] Systolic (mm Hg) 132 04/04/2019 [facility] Diastolic (mm Hg) 78 04/04/2019 [facility] Systolic (mm Hg) 138 04/03/2019 [facility] Diastolic (mm Hg) 88 04/03/2019 [facility] Heart Rate 90 04/03/2019 [facility] Respitory Rate 18 04/03/2019 [facility] Temperature Oral (F) 98.6 F 04/03/2019 [facility] Weight 125 04/03/2019 [facility] Systolic (mm Hg) 104 03/24/2019 [facility] Diastolic (mm Hg) 70 03/24/2019 [facility] Respitory Rate 18 03/24/2019 [facility] Heart Rate 100 03/24/2019 [facility] Temperature Oral (F) 98.7 F 03/24/2019 [facility] Temperature Oral (F) 98.0 F 03/24/2019 [facility] Heart Rate 89 03/24/2019 [facility] [place] Systolic (mm Hg) 107 03/24/2019 [facility] [place] Diastolic (mm Hg) 76 03/24/2019 [facility] Respitory Rate 18 03/24/2019 [facility] Heart Rate 99 03/24/2019 [facility] Respitory Rate 18 03/24/2019 [facility] Systolic (mm Hg) 96 03/24/2019 [facility] Diastolic (mm Hg) 71 03/24/2019 [facility] Temperature Oral (F) 98.1 F 03/24/2019 [facility] BMI Calculated 45.24 03/23/2019 [facility] Height 167.64 cm 03/23/2019 [facility] Weight 127.136 03/23/2019 [facility] BMI Calculated 43.67 03/23/2019 [facility] Weight 122.727 03/23/2019 [facility] Height 167.64 cm 03/23/2019 [facility] Heart Rate 69 03/07/2019 [facility] Respitory Rate 16 03/07/2019 [facility] Systolic (mm Hg) 120 03/07/2019 [facility] Diastolic (mm Hg) 81 03/07/2019 [facility] Temperature Oral (F) 98.5 F 03/07/2019 [facility] Systolic (mm Hg) 113 03/07/2019 [facility] Diastolic (mm Hg) 77 03/07/2019 [facility] Respitory Rate 16 03/07/2019 [facility] Temperature Oral (F) 98.4 F 03/07/2019 [facility] Heart Rate 74 03/07/2019 [facility] Systolic (mm Hg) 120 03/07/2019 [facility] Diastolic (mm Hg) 83 03/07/2019 [facility] Heart Rate 78 03/07/2019 [facility] Respitory Rate 16 03/07/2019 [facility] Temperature Oral (F) 98.2 F 03/07/2019 [facility] Height 167.64 cm 03/01/2019 [facility] Weight 129 03/01/2019 [facility] BMI Calculated 45.9 03/01/2019 [facility] Weight 136.364 03/01/2019 [facility] Heart Rate 64 01/31/2019 [facility] Systolic (mm Hg) 140 01/31/2019 [facility] Diastolic (mm Hg) 74 01/31/2019 [facility] Systolic (mm Hg) 138 01/31/2019 [facility] Diastolic (mm Hg) 78 01/31/2019 [facility] Heart Rate 64 01/31/2019 [facility] Systolic (mm Hg) 147 01/31/2019 [facility] Diastolic (mm Hg) 88 01/31/2019 [facility] Heart Rate 61 01/31/2019 [facility] Temperature Oral (F) 98.8 F 01/31/2019 [facility] Temperature Oral (F) 98.7 F 01/31/2019 [facility] Respitory Rate 16 01/31/2019 [facility] Temperature Oral (F) 98.9 F 01/31/2019 [facility] Respitory Rate 18 01/31/2019 [facility] Respitory Rate 18 01/31/2019 [facility] BMI Calculated 45.29 01/27/2019 [facility] Height 167.64 cm 01/27/2019 [facility] Weight 127.273 01/27/2019 [facility] Weight 125 01/27/2019 [facility] BMI Calculated 44.48 01/27/2019 [facility] Height 167.64 cm 01/27/2019 [facility] Systolic (mm Hg) 135 12/13/2018 [facility] Diastolic (mm Hg) 74 12/13/2018 [facility] Respitory Rate 17 12/13/2018 [facility] Heart Rate 85 12/13/2018 [facility] Temperature Oral (F) 98.8 F 12/13/2018 [facility] BMI Calculated 48.84 12/13/2018 [facility] Weight 137.25 12/13/2018 [facility] Height 167.64 cm 12/13/2018 [facility] Respitory Rate 18 12/13/2018 [facility] Temperature Oral (F) 99.2 F 12/13/2018 [facility] Heart Rate 87 12/13/2018 [facility] Systolic (mm Hg) 130 12/13/2018 [facility] Diastolic (mm Hg) 83 12/13/2018 [facility] Systolic (mm Hg) 125 12/09/2018 [facility] Diastolic (mm Hg) 86 12/09/2018 [facility] Respitory Rate 18 12/09/2018 [facility] Heart Rate 61 12/09/2018 [facility] Temperature Oral (F) 99.1 F 12/09/2018 [facility] Temperature Oral (F) 98.5 F 12/09/2018 [facility] Systolic (mm Hg) 124 12/09/2018 [facility] Diastolic (mm Hg) 85 12/09/2018 [facility] Respitory Rate 18 12/09/2018 [facility] Heart Rate 106 12/09/2018 [facility] Systolic (mm Hg) 117 12/09/2018 [facility] Diastolic (mm Hg) 80 12/09/2018 [facility] Respitory Rate 18 12/09/2018 [facility] Heart Rate 97 12/09/2018 [facility] Temperature Oral (F) 98.4 F 12/09/2018 [facility] Weight 58.778 12/04/2018 [facility] Height 167.64 cm 12/04/2018 [facility] BMI Calculated 46.29 12/04/2018 [facility] Weight 130.1 12/04/2018 [facility] BMI Calculated 44.96 12/03/2018 [facility] Weight 126.364 12/03/2018 [facility] Height 167.64 cm 12/03/2018 [facility] Systolic (mm Hg) 108 10/12/2018 [facility] Diastolic (mm Hg) 76 10/12/2018 [facility] Heart Rate 99 10/12/2018 [facility] Respitory Rate 17 10/12/2018 [facility] Temperature Oral (F) 98.3 F 10/12/2018 [facility] Heart Rate 90 10/12/2018 [facility] Temperature Oral (F) 97.9 F 10/12/2018 [facility] Systolic (mm Hg) 112 10/12/2018 [facility] Diastolic (mm Hg) 77 10/12/2018 [facility] Respitory Rate 18 10/12/2018 [facility] Systolic (mm Hg) 112 10/12/2018 [facility] Diastolic (mm Hg) 78 10/12/2018 [facility] Respitory Rate 16 10/12/2018 [facility] Heart Rate 76 10/12/2018 [facility] Temperature Oral (F) 98.0 F 10/12/2018 [facility] Weight 133.182 10/11/2018 [facility] Height 167.64 cm 10/11/2018 [facility] BMI Calculated 47.39 10/11/2018 [facility] Systolic (mm Hg) 94 10/11/2018 [facility] Diastolic (mm Hg) 64 10/11/2018 [facility] Temperature Oral (F) 98.2 F 10/11/2018 [facility] Respitory Rate 17 10/11/2018 [facility] Heart Rate 85 10/11/2018 [facility] Respitory Rate 16 10/11/2018 [facility] Heart Rate 71 10/11/2018 [facility] Temperature Oral (F) 98 F 10/11/2018 [facility] Systolic (mm Hg) 122 10/11/2018 [facility] Diastolic (mm Hg) 75 10/11/2018 [facility] Weight 133.005 10/11/2018 [facility] Temperature Oral (F) 98.6 F 10/11/2018 [facility] Heart Rate 88 10/11/2018 [facility] Respitory Rate 17 10/11/2018 [facility] Systolic (mm Hg) 130 10/11/2018 [facility] Diastolic (mm Hg) 78 10/11/2018 [facility] Temperature Oral (F) 97.6 F 09/06/2018 [facility] Respitory Rate 19 09/06/2018 [facility] Heart Rate 73 09/06/2018 [facility] Systolic (mm Hg) 118 09/06/2018 [facility] Diastolic (mm Hg) 75 09/06/2018 [facility] Respitory Rate 17 09/06/2018 [facility] Temperature Oral (F) 98.2 F 09/06/2018 [facility] Heart Rate 82 09/06/2018 [facility] Systolic (mm Hg) 120 09/06/2018 [facility] Diastolic (mm Hg) 74 09/06/2018 [facility] Temperature Oral (F) 98 F 09/06/2018 [facility] Height 167.64 cm 09/06/2018 [facility] Heart Rate 82 09/06/2018 [facility] Respitory Rate 18 09/06/2018 [facility] Systolic (mm Hg) 142 09/06/2018 [facility] Diastolic (mm Hg) 87 09/06/2018 [facility] BMI Calculated 42.86 09/06/2018 [facility] Weight 120.455 09/06/2018 [facility] Systolic (mm Hg) 111 08/30/2018 [facility] Diastolic (mm Hg) 72 08/30/2018 [facility] Temperature Oral (F) 98.0 F 08/30/2018 [facility] Respitory Rate 16 08/30/2018 [facility] Heart Rate 73 08/30/2018 [facility] Heart Rate 72 08/30/2018 [facility] Respitory Rate 16 08/30/2018 [facility] Systolic (mm Hg) 110 08/30/2018 [facility] Diastolic (mm Hg) 75 08/30/2018 [facility] Temperature Oral (F) 98.2 F 08/30/2018 [facility] Respitory Rate 18 08/30/2018 [facility] Systolic (mm Hg) 110 08/30/2018 [facility] Diastolic (mm Hg) 62 08/30/2018 [facility] Heart Rate 81 08/30/2018 [facility] Temperature Oral (F) 98.1 F 08/30/2018 [facility] Height 167.64 cm 08/24/2018 [facility] Weight 127.727 08/24/2018 [facility] BMI Calculated 45.45 08/24/2018 [facility] BMI Calculated 50.03 08/24/2018 [facility] Weight 136.364 08/24/2018 [facility] Height 165.1 cm 08/24/2018 [facility] Weight 120.455 08/24/2018 [facility] Temperature Oral (F) 98.4 F 05/22/2018 [facility] Respitory Rate 18 05/22/2018 [facility] Heart Rate 57 05/22/2018 [facility] Systolic (mm Hg) 113 05/22/2018 [facility] Diastolic (mm Hg) 78 05/22/2018 [facility] Respitory Rate 18 05/22/2018 [facility] Heart Rate 68 05/22/2018 [facility] Temperature Oral (F) 98.3 F 05/22/2018 [facility] Systolic (mm Hg) 109 05/22/2018 [facility] Diastolic (mm Hg) 71 05/22/2018 [facility] Systolic (mm Hg) 107 05/22/2018 [facility] Diastolic (mm Hg) 71 05/22/2018 [facility] Temperature Oral (F) 98.2 F 05/22/2018 [facility] Heart Rate 55 05/22/2018 [facility] Respitory Rate 17 05/22/2018 [facility] Weight 120.909 05/17/2018 [facility] BMI Calculated 43.02 05/17/2018 [facility] Height 167.64 cm 05/17/2018 [facility] Weight 119.091 05/17/2018 [facility] Temperature Oral (F) 97.5 F 01/13/2018 [facility] Respitory Rate 18 01/13/2018 [facility] Systolic (mm Hg) 121 01/13/2018 [facility] Diastolic (mm Hg) 81 01/13/2018 [facility] Heart Rate 86 01/13/2018 [facility] Height 167.64 cm 01/12/2018 [facility] BMI Calculated 38.82 01/12/2018 [facility] Weight 109.091 01/12/2018 [facility] Heart Rate 106 01/12/2018 [facility] Systolic (mm Hg) 115 01/12/2018 [facility] Diastolic (mm Hg) 84 01/12/2018 [facility] Temperature Oral (F) 98.8 F 01/12/2018 [facility] Respitory Rate 20 01/12/2018 [facility] Heart Rate 72 12/31/2016 [facility] Systolic (mm Hg) 94 12/31/2016 [facility] Diastolic (mm Hg) 62 12/31/2016 [facility] Respitory Rate 18 12/31/2016 [facility] Heart Rate 64 12/31/2016 [facility] Temperature Oral (F) 98.4 F 12/31/2016 [facility] Systolic (mm Hg) 87 12/31/2016 [facility] Diastolic (mm Hg) 56 12/31/2016 [facility] Systolic (mm Hg) 139 12/31/2016 [facility] Diastolic (mm Hg) 99 12/31/2016 [facility] Respitory Rate 18 12/31/2016 [facility] Temperature Oral (F) 98.5 F 12/31/2016 [facility] Heart Rate 50 12/31/2016 [facility] Weight 109 12/31/2016 [facility] Respitory Rate 18 12/31/2016 [facility] Temperature Oral (F) 98 F 12/31/2016 [facility] BMI Calculated 38.82 12/31/2016 [facility] Height 167.64 cm 12/31/2016 [facility] Weight 109.091 12/31/2016 [facility] Systolic (mm Hg) 110 12/26/2016 [facility] Diastolic (mm Hg) 74 12/26/2016 [facility] Respitory Rate 18 12/26/2016 [facility] Heart Rate 62 12/26/2016 [facility] Temperature Oral (F) 98 F 12/26/2016 [facility] Systolic (mm Hg) 110 12/26/2016 [facility] Diastolic (mm Hg) 74 12/26/2016 [facility] Respitory Rate 17 12/26/2016 [facility] Heart Rate 60 12/26/2016 [facility] Temperature Oral (F) 98 F 12/26/2016 [facility] Weight 109.091 12/25/2016 [facility] BMI Calculated 38.82 12/25/2016 [facility] Height 167.64 cm 12/25/2016 [facility] Systolic (mm Hg) 109 12/25/2016 [facility] Diastolic (mm Hg) 73 12/25/2016 [facility] Respitory Rate 16 12/25/2016 [facility] Height 167.64 cm 12/25/2016 [facility] BMI Calculated 38.82 12/25/2016 [facility] Weight 109.091 12/25/2016 [facility] Temperature Oral (F) 98.2 F 12/25/2016 [facility] Heart Rate 62 12/25/2016 [facility] Systolic (mm Hg) 132 07/20/2016 [facility] Diastolic (mm Hg) 84 07/20/2016 [facility] Heart Rate 70 07/20/2016 [facility] Respitory Rate 16 07/20/2016 [facility] Temperature Oral (F) 98.3 F 07/20/2016 [facility] Weight 104.545 07/20/2016 [facility] BMI Calculated 37.2 07/20/2016 [facility] Height 167.64 cm 07/20/2016 [facility] Temperature Oral (F) 98.4 F 07/20/2016 [facility] Systolic (mm Hg) 120 07/20/2016 [facility] Diastolic (mm Hg) 81 07/20/2016 [facility] Heart Rate 66 07/20/2016 [facility] Respitory Rate 15 07/20/2016 [facility] Systolic (mm Hg) 111 04/23/2016 [facility] Diastolic (mm Hg) 76 04/23/2016 [facility] Respitory Rate 20 04/23/2016 [facility] Heart Rate 84 04/23/2016 [facility] Temperature Oral (F) 97.6 F 04/23/2016 [facility] Height 157.48 cm 04/23/2016 [facility] Systolic (mm Hg) 113 04/23/2016 [facility] Diastolic (mm Hg) 78 04/23/2016 [facility] Heart Rate 85 04/23/2016 [facility] Respitory Rate 20 04/23/2016 [facility] Temperature Oral (F) 98.2 F 04/23/2016 [facility] Weight 94.091 04/23/2016 [facility] BMI Calculated 37.94 04/23/2016 [facility] Systolic (mm Hg) 112 04/16/2016 [facility] Diastolic (mm Hg) 79 04/16/2016 [facility] Respitory Rate 20 04/16/2016 [facility] Heart Rate 88 04/16/2016 [facility] Temperature Oral (F) 98.2 F 04/16/2016 [facility] Respitory Rate 18 04/16/2016 [facility] Heart Rate 109 04/16/2016 [facility] Systolic (mm Hg) 111 04/16/2016 [facility] Diastolic (mm Hg) 78 04/16/2016 [facility] Height 167.64 cm 04/16/2016 [facility] Temperature Oral (F) 98.7 F 04/16/2016 [facility] BMI Calculated 36.72 04/16/2016 [facility] Weight 103.182 04/16/2016 [facility] Systolic (mm Hg) 110 04/14/2016 [facility] Diastolic (mm Hg) 70 04/14/2016 [facility] Heart Rate 70 04/14/2016 [facility] Temperature Oral (F) 98 F 04/14/2016 [facility] Systolic (mm Hg) 124 04/14/2016 [facility] Diastolic (mm Hg) 79 04/14/2016 [facility] Respitory Rate 18 04/14/2016 [facility] Heart Rate 70 04/14/2016 [facility] Temperature Oral (F) 98 F 04/14/2016 [facility] Systolic (mm Hg) 107 04/14/2016 [facility] Diastolic (mm Hg) 68 04/14/2016 [facility] Respitory Rate 18 04/14/2016 [facility] Heart Rate 74 04/14/2016 [facility] Temperature Oral (F) 98.2 F 04/14/2016 [facility] BMI Calculated 36.72 04/14/2016 [facility] Weight 103.182 04/14/2016 [facility] Height 167.64 cm 04/14/2016 [facility] Respitory Rate 18 04/14/2016 [facility] Systolic (mm Hg) 105 02/24/2016 [facility] Diastolic (mm Hg) 68 02/24/2016 [facility] Heart Rate 63 02/24/2016 [facility] Respitory Rate 16 02/24/2016 [facility] Heart Rate 86 02/24/2016 [facility] Respitory Rate 18 02/24/2016 [facility] BMI Calculated 35.75 02/24/2016 [facility] Height 167.64 cm 02/24/2016 [facility] Weight 100.455 02/24/2016 [facility] Temperature Oral (F) 98.1 F 02/24/2016 [facility] Systolic (mm Hg) 124 02/24/2016 [facility] Diastolic (mm Hg) 84 02/24/2016 [facility] Temperature Oral (F) 98.1 F 01/17/2016 [facility] Heart Rate 61 01/17/2016 [facility] Respitory Rate 18 01/17/2016 [facility] Systolic (mm Hg) 122 01/17/2016 [facility] Diastolic (mm Hg) 82 01/17/2016 [facility] Heart Rate 62 01/17/2016 [facility] Systolic (mm Hg) 126 01/17/2016 [facility] Diastolic (mm Hg) 78 01/17/2016 [facility] Temperature Oral (F) 98.0 F 01/17/2016 [facility] Respitory Rate 16 01/17/2016 [facility] Heart Rate 94 01/17/2016 [facility] Respitory Rate 18 01/17/2016 [facility] Systolic (mm Hg) 120 01/17/2016 [facility] Diastolic (mm Hg) 74 01/17/2016 [facility] Weight 100.455 01/17/2016 [facility] Height 167.64 cm 01/17/2016 [facility] BMI Calculated 35.75 01/17/2016 [facility] Temperature Oral (F) 98 F 01/17/2016 [facility] Respitory Rate 18 10/13/2015 [facility] Heart Rate 70 10/13/2015 [facility] Temperature Oral (F) 98.2 F 10/13/2015 [facility] Systolic (mm Hg) 118 10/13/2015 [facility] Diastolic (mm Hg) 80 10/13/2015 [facility] Height 167.64 cm 10/13/2015 [facility] BMI Calculated 36.23 10/13/2015 [facility] Weight 101.818 10/13/2015 [facility] Heart Rate 74 10/13/2015 [facility] Respitory Rate 20 10/13/2015 [facility] Temperature Oral (F) 98.2 F 10/13/2015 [facility] Systolic (mm Hg) 117 10/13/2015 [facility] Diastolic (mm Hg) 78 10/13/2015 [facility] Respitory Rate 18 07/04/2015 [facility] Heart Rate 61 07/04/2015 [facility] Temperature Oral (F) 98.0 F 07/04/2015 [facility] Systolic (mm Hg) 100 07/04/2015 [facility] Diastolic (mm Hg) 58 07/04/2015 [facility] Respitory Rate 18 07/04/2015 [facility] Heart Rate 70 07/04/2015 [facility] Temperature Oral (F) 98.4 F 07/04/2015 [facility] Systolic (mm Hg) 104 07/04/2015 [facility] Diastolic (mm Hg) 66 07/04/2015 [facility] Heart Rate 82 07/04/2015 [facility] Respitory Rate 20 07/04/2015 [facility] Temperature Oral (F) 98.2 F 07/04/2015 [facility] Systolic (mm Hg) 126 07/04/2015 [facility] Diastolic (mm Hg) 83 07/04/2015 [facility] Weight 107.273 07/04/2015 [facility] Systolic (mm Hg) 110 05/17/2015 [facility] Diastolic (mm Hg) 78 05/17/2015 [facility] Temperature Oral (F) 98.2 F 05/17/2015 [facility] Heart Rate 55 05/17/2015 [facility] Heart Rate 61 05/17/2015 [facility] Systolic (mm Hg) 106 05/17/2015 [facility] Diastolic (mm Hg) 65 05/17/2015 [facility] Systolic (mm Hg) 101 05/17/2015 [facility] Diastolic (mm Hg) 51 05/17/2015 [facility] Heart Rate 60 05/17/2015 [facility] Respitory Rate 18 05/17/2015 [facility] Temperature Oral (F) 99.6 F 05/17/2015 [facility] Temperature Oral (F) 99.6 F 05/17/2015 [facility] Height 167.64 cm 05/17/2015 [facility] BMI Calculated 39.95 05/17/2015 [facility] Weight 112.273 05/17/2015 [facility] Respitory Rate 18 05/17/2015 [facility] Temperature Oral (F) 98.9 F 05/15/2015 [facility] Heart Rate 51 05/15/2015 [facility] Respitory Rate 18 05/15/2015 [facility] Systolic (mm Hg) 114 05/15/2015 [facility] Diastolic (mm Hg) 74 05/15/2015 [facility] Heart Rate 76 05/15/2015 [facility] Respitory Rate 18 05/15/2015 [facility] Systolic (mm Hg) 131 05/15/2015 [facility] Diastolic (mm Hg) 81 05/15/2015 [facility] Temperature Oral (F) 98.1 F 05/15/2015 [facility] Height 167.64 cm 05/15/2015 [facility] BMI Calculated 43.67 05/15/2015 [facility] Weight 122.727 05/15/2015 [facility] Temperature Oral (F) 98.3 F 05/15/2015 [facility] Systolic (mm Hg) 127 05/15/2015 [facility] Diastolic (mm Hg) 74 05/15/2015 [facility] Respitory Rate 20 05/15/2015 [facility] Heart Rate 76 05/15/2015 [facility] Respitory Rate 18 02/14/2015 [facility] Systolic (mm Hg) 105 02/14/2015 [facility] Diastolic (mm Hg) 67 02/14/2015 [facility] Heart Rate 56 02/14/2015 [facility] Heart Rate 57 02/14/2015 [facility] Temperature Oral (F) 98.3 F 02/14/2015 [facility] Respitory Rate 18 02/14/2015 [facility] Systolic (mm Hg) 134 02/14/2015 [facility] Diastolic (mm Hg) 80 02/14/2015 [facility] BMI Calculated 40.11 02/14/2015 [facility] Weight 112.727 02/14/2015 [facility] Temperature Oral (F) 98.6 F 02/14/2015 [facility] Height 167.64 cm 02/14/2015 [facility] Heart Rate 93 02/14/2015 [facility] Respitory Rate 18 02/14/2015 [facility] Systolic (mm Hg) 111 02/14/2015 [facility] Diastolic (mm Hg) 84 02/14/2015 [facility] Diastolic (mm Hg) 78 09/30/2014 [facility] Systolic (mm Hg) 122 09/30/2014 [facility] Temperature Oral (F) 98.3 F 09/30/2014 [facility] Respitory Rate 16 09/30/2014 [facility] Heart Rate 75 09/30/2014 [facility] Temperature Oral (F) 98.2 F 09/30/2014 [facility] Diastolic (mm Hg) 71 09/30/2014 [facility] Heart Rate 71 09/30/2014 [facility] Systolic (mm Hg) 131 09/30/2014 [facility] Respitory Rate 18 09/30/2014 [facility] Respitory Rate 18 09/30/2014 [facility] Heart Rate 76 09/30/2014 [facility] Diastolic (mm Hg) 87 09/30/2014 [facility] Temperature Oral (F) 98.4 F 09/30/2014 [facility] Height 167.64 cm 09/30/2014 [facility] Systolic (mm Hg) 127 09/30/2014 [facility] BMI Calculated 42.05 09/30/2014 [facility] Weight 118.182 09/30/2014 [facility] Encounters Location Location Details Encounter Type Encounter Number Reason For Visit Attending Provider ADM Date DC Date Status Source [facility] [id number] Mario Gu 09/30/2014 09/30/2014 [facility] [id number] Juancho Malloy 02/14/2015 02/14/2015 [facility] [id number] Temitopemary Green 05/15/2015 05/15/2015 [facility] [id number] Rosy Diaz 05/17/2015 05/17/2015 [facility] [id number] Hina Finley 07/04/2015 07/04/2015 [facility] [id number] Rosy Diaz 10/13/2015 10/13/2015 [facility] [id number] Salvador Gutierrezana 01/17/2016 01/17/2016 [facility] [id number] Wilmar Mcgraw 02/24/2016 02/24/2016 [facility] Emergency [id number] Cristino Gilberteal 04/14/2016 04/14/2016 [facility] Emergency [id number] Jeannie Wahluyen 04/16/2016 04/16/2016 [facility] Emergency [id number] Rosalind Floydooqi 04/23/2016 04/23/2016 [facility] Emergency [id number] Jama Lynya 07/20/2016 07/20/2016 [facility] Outpatient [id number] STEVEN TAPIA 11/24/2016 [facility] Emergency [id number] Richard Owen 12/25/2016 12/26/2016 [facility] Observation [id number] Alec Vicente Jr 12/31/2016 12/31/2016 [facility] Emergency [id number] Isacc Melanie 01/12/2018 01/13/2018 [facility] Inpatient [id number] Oralia Floydooqui 05/17/2018 05/22/2018 [facility] [place] [facility] [id number] Tracie Stahl 06/24/2018 06/25/2018 [facility] Inpatient [id number] Barton Elham 08/24/2018 08/30/2018 [facility] Emergency [id number] Ruth Jay 09/06/2018 09/06/2018 [facility] Emergency [id number] Temitope Green 10/11/2018 10/11/2018 [facility] Inpatient [id number] Lexx Sauer 10/11/2018 10/12/2018 [facility] Inpatient [id number] Terrence Verdugo 12/03/2018 12/09/2018 [facility] Emergency [id number] Dante Martin 12/13/2018 12/13/2018 [facility] Inpatient [id number] Jo White 01/27/2019 01/31/2019 [facility] Inpatient [id number] Shabnam Campos 03/01/2019 03/08/2019 [facility] Observation [id number] Jose L Cunningham 03/23/2019 03/25/2019 [facility] Emergency [id number] Eliot Cayuga 04/03/2019 04/04/2019 [facility] Emergency [id number] Eliot Bebeto 05/16/2019 05/16/2019 [facility] Emergency [id number] Karthik Hogan 05/25/2019 05/25/2019 [facility] Outpatient [id number] Edwadro Rodriguez 11/02/2019 11/03/2019 [facility] Observation [id number] Salim Jorge L 11/02/2019 11/04/2019 [facility] Inpatient [id number] Isa Michelleismael 03/23/2020 03/26/2020 [facility] Procedures Procedure Code Date Perfomer Comments Source Incision AND drainage [id number] 05/17/2018 [facility], [facility]ole[id number] [facility] and Plan Assessment and Plan [...] follow up on discharge call Dr Huston [phone] fax no. [phone] ANTIBIOTICS: Vancomycin day 3 First Dose Antibiotic: [...] Blood Collected: 03/23/2020 07:20 Verified by: [facility], [facility] - 03/25/2020 11:31 Collected: 03/23/2020 07:20 Verified by: [facility]OLOG[facility], [facility] - 03/25/2020 11:31 No Growth At 2 Days Collected: 03/23/2020 07:20 Verified by: [facility]OLOG[facility], [facility] - 03/25/2020 11:31 No Growth At 2 Days Collected: 03/23/2020 07:20 Verified by: [facility]BIOLOG[facility], [facility] - 03/25/2020 11:31 IMAGING: Imaging Studies (last 36 hours) (none) Scheduled Meds (1): 03/23/20 vancomycin + Sodium Chloride 0. 9% IV 250 mL 1,000 mg IVPB [id number] 250 ml/hr This note was dictated with the use of [employer] speech recognition software. Please use best judgement when interpreting and excuse any quoter errors. Extracted from:Title: Clinical Document Author: Jed Huston MD Date: 03/23/20 [facility] INFECTIOUS DISEASE CONSULTATION NOTE Nikole KATE M.D., [...] Water IV (Dextrose 50% Syringe (D50W)), acetaminophen-hydrocodone ([place] 10/325 oral tablet), acetaminophen, glucagon, hydromorphone (Dilaudid), [...] note was dictated with the use of [employer] speech recognition software. Please use best judgement when interpreting and excuse any quoter errors. 03/26/2020 [facility] Extracted from:Title: Clinical [...] home meds SCDs observation full code 11/04/2019 [facility] Extracted from:Title: ID Consultation No te Author: Mahesh Wilkins MD Date: 03/24/19 [facility] INFECTIOUS DISEASE CONSULTATION NOTE Nikole Bob M.D. M. Farhan Khan, M.D. Syed W. Hasan, M.D. REQUESTING PHYSICIAN: Dr. Cunningham REASON FOR CONSULTATION: Fever, right axillar nodule/pain HISTORY OF PRESENT ILLNESS: 33 yo female with history of obesity, de pression, polycystic ovary syndrome, recurrent skin infection, hidradenitis suppurativa presents to [facility] ED for fever and R axillary pain [...] 9% IV 500 mL 1.75 gm IVPB [id number] 250 ml/hr ALLERGIES: Allergies: Keflex, clindamycin, ciprofloxacin, [...] planned, still have recommended patient to see blending operator as outpatient to rule out any other underlying possible immune issue leading to prior recurrent skin infections - Based on patient's history, [facility] sale to [facility] patient is having first current skin inflammatory [...] will defer this ultimately to patient's regular ear nose throat surgeon Thank you for this consult. ID will [...] written and given to patient. Diagnosis Abscess (ZJY39-GR L02.91, Working, Medical). Forunculosis (JHA29-HW L02.92, Working, Medical). Hidradenitis axillaris (RRY83-ZX L73.2, Working, Medical). Obesity (EDR91-PF E66.9, Working, Medical). Obesity (WFA24-DY E66.9, Working, Medical). PCOS (polycystic ovarian syndrome) (JWM02-OD E28.2, Working, Medical). PCOS (polycystic ovarian syndrome) (CHI99-BL E28.2, Working, Medical). Sepsis (TMD09-XN A41.9, Working, Medical). Sepsis (UZN29-XT A41.9, Working, Medical). Course Improving. Education and [...] follow up on discharge call Dr Huston [phone] SUBJECTIVE: Seen and examined. Events noted. VITAL [...] Meds (5): 03/01/19 enoxaparin 40 mg SUB-Q [id number] 03/02/19 spironolactone 50 mg PO Daily 03/01/19 vancomycin + Sodium Chloride 0. 9% IV 250 mL 1.5 gm IVPB [id number] 166.67 ml/hr 03/03/19 zinc sulfate 220 mg PO Daily 03/02/19 zolpidem (Ambien) 10 mg PO Bedt vero Extracted from:Title: ID Consultation Note Author: Mahesh Wilkins MD Date: 03/01/19 [facility] INFECTIOUS DISEASE CONSULTATION NOTE Nikole Bob M.D. M. Farhan Khan, M.D. Syed W. Hasan, M.D. REQUESTING PHYSICIAN: Dr. Candelario REASON FOR CONSULTATION: Recurrent skin infection HISTORY OF PRESENT ILLNESS: 33 yo F with PMH including obesity, depr ession, PCOS, hidrenaitis suppurativa,, recurrent skin infection, antibiotic allergies, who presented to [facility] 02/28/19 due to worsening right axillary/breast tenderness and new skin nodules. Patient had been recently hospitalized January 2019 for vulvar/groin infection that improved after discharge and completing oral antibiotic course. She also since then had newer furuncle on bilateral calf (one each) that had resolevd with doxycycline+Sivextro treatment by ear nose throat surgeon that finished this past Thursday. She notes also undergoing frequent muporicin nasal decolonization, chlorhexidine and bleach baths as recommended by her ear nose throat surgeon. In last few days though she noted [...] Meds (2): 03/01/19 enoxaparin 40 mg SUB-Q [id number] 03/01/19 vancomycin + Sodium Chloride 0. 9% IV 250 mL 1.5 gm IVPB [id number] 166.67 ml/hr ALLERGIES: Allergies: Keflex, clindamycin, ciprofloxacin, [...] from any purulent drainage - F/u outpatient ear nose throat surgeon after dis charge; also may need to see blending operator as outpatient for immunodeficiency workup given recurring [...] INFECTIOUS DISEASES PROGRESS NOTE Jed Huston M.D. [facility] [phone] Reason For Follow up: Hidradenitis SUBJECTIVE: Seen [...] 01/27/19 enoxaparin (Lovenox) 40 mg SUB- Q [id number] 01/27/19 non-formulary (*Please bring pt 's own [...] 01/27/19 enoxaparin (Lovenox) 40 mg SUB- Q [id number] 01/27/19 non-formulary (*Please bring pt 's own [...] taken for H&P is 40 min. 01/31/2019 [facility] Extracted from:Title: ID Progress Note Author: Mahesh Wilkins MD Date: 12/09/18 [facility] INFECTIOUS DISEASES PROGRESS NOTE Nikole Bob M.DM. [...] Meds (4): 12/03/18 enoxaparin 40 mg SUB-Q [id number] 12/05/18 spironolactone 50 mg PO Daily 12/08/18 [...] also plan patient to follow-up with her ear nose throat surgeon as outpatient routinely Above discussed with hospitalist Dr. Mendoza CURRENT ANTIMICROBIALS: IV vancomycin day # 6 Extracted from:Title: Clinical Document Author: Tracie Stahl MD Date: 12/06/18 Post Operative Procedure Note A complete detailed Operative Report must follow within 24 hours of the procedure. Pre-Operative Diagnosis: Left thigh abscess x 2 Post-Operative Diagnosis: Same Surgeon/Endoscopist/Physician(s): Raoul Stahl Shrub Grower(s): None Procedure Performed: Incision and drainage of left thigh abscess x 2 Estimated Blood Loss: Minimal Specimens Removed: Cultures taken Findings of the Procedure: Inner thigh abscess cavity and small upper thigh abscess Dictation ID for complete detailed Operative Report:: [id number] Extracted from:Title: Clinical Document Author: Jed Huston MD Date: 12/04/18 [facility] INFECTIOUS DISEASE CONSULTATION NOTE JED HUSTON M.D. [...] No intervention. Lovenox subcutaneous Observation. Acute. 12/09/2018 [facility] Extracted from:Title: ID Consultation No te Author: Mahesh Wilkins MD Date: 10/11/18 [facility] INFECTIOUS DISEASE CONSULTATION NOTE Mahesh Wilkins M.D. Zoey Hartley M.D. Nikole Claros M.D. REQUESTING PHYSICIAN: Dr. Sauer REASON FOR CONSULTATION: Recurrent skin infection HISTORY OF PRESENT ILLNESS: 32 yo F with PMH including PCOS, hiadren itis suppurativa, recurrent skin lesion/boil on abdomen/thigh with MSSA superinfection , multiple antibiotic allergies who [place] [facility] due to worsening/recurrent painful skin lesion. I had seen patient before for similar issues in past several months- patient has been dealing with this for past year. After Aug 2018 hospitalization she had finished IV vancomycin course as well as followed with ear nose throat surgeon who had diagnosed her with hiadrenitis suppurative [...] 10/11/18 enoxaparin (Lovenox) 40 mg SUB- Q [id number] 10/11/18 linezolid 600 mg PO [id number] ALLERGIES: Allergies: Keflex, clindamycin, ciprofloxacin, Bactrim, penicillin [...] is closely followed up by her primary ear nose throat surgeon who comes in for evaluation of multiple [...] 1 dose of vancomycin and transferred to [facility]. At this time patient denies having any [...] DVT prophylaxis: Lovenox Disposition: Likely tomorrow. 10/12/2018 [facility] Extracted from:Title: Clinical Document Author: Oralia Lizarraga [...] 9% IV 250 mL 1,500 mg IVPB [id number] 166.67 ml/hr Unscheduled Meds (2): 08/27/18 lidocaine [...] sterile water 20 mL 2 gm IV [id number] 240 ml/hr 05/17/18 enoxaparin 40 mg SUB-Q [id number] 05/20/18 vancomycin + Sodium Chloride 0. 9% IV 250 mL 1,500 mg IVPB [id number] 166.67 ml/hr Unscheduled Meds (2): 05/17/18 influenza [...] Note Author: Mahesh Wilkins MD Date: 05/18/18 [facility] INFECTIOUS DISEASE CONSULTATION NOTE Nikole Bob M.D. M. Farhan Khan, M.D. Syed W. Hasan, M.D. REQUESTING PHYSICIAN: Dr. Lizarraga REASON FOR CONSULTATION: Abdominal wall purulent cellulitis/phelgmon HISTORY OF PRESENT ILLNESS: Colleen Bedolla is a 32 yo F with PMH including PCOS who presented to [facility] due to worsening cellulitis on abdomen and [...] developed hives) and seeing outside ID clinical liaison in [place]. She still notes significant pain and scant [...] Meds (2): 05/17/18 enoxaparin 40 mg SUB-Q [id number] 05/17/18 vancomycin + Sodium Chloride 0. 9% IV 250 mL 1,000 mg IVPB [id number] 250 ml/hr ALLERGIES: Allergies (5) Active Reaction [...] joe ideation. 5. DVT prophylaxis. Lovenox. 05/22/2018 [facility] Plan of Care No Data Provided for [...] on: 11/02/19 1quit smoking in may 25 [facility] Social History TypeResponse Alcohol Never Employment/School Status: [...] on: 03/23/20 1quit smoking in may 25 [facility] Social History TypeResponse Substance Abuse Use: None. [...] No; Reg Smoking Cessation Counseling No 02/14/2015 [facility] Family History No Data Provided for This Section Advance Directives No Data Provided for This Section Functional Status No Data Provided for This Section
--- OUTSIDE RECORDS SUMMARY | 2020-04-13 00:38 | XMS REPORT | Continuity of Care Document ---
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 tedizolid phosphate 200 MG Oral Tablet [Sivextro] 2019-03-24 20:01:00 Yes 200 mg = 1 tab, PO, Daily, X 7 day, # 7 tab, 0 Refill(s), Pharmacy: [facility] #[id number] Shahida bravo vancomycin + Sodium Chloride 0.9% IV 500 mL 2019-03-24 10:00:00 No 2001 mg: infuse over 2.5 hours For adult patients only: Round to nearest 250 mg per Medical Staff approval MEDICATION WASTE Product Size: 1000 mg Product Wasted: ___ mg [facility] Morphine 2019-03-24 01:00:00 No 2 mg, 1 mL, Route: IVP, Drug form: SOLN, Q4H, Dosing Weight 122.727, kg, Start date: 03/23/19 20:00:00 CDT, Duration: 30 day, Stop date: 04/22/19 16:00:00 CDT, 0 [facility] Doxycycline 2019-03-23 23:50:00 No 100 mg, PO, BID, 0 Refill(s) [facility] Vancomycin 2019-03-23 22:00:00 No 2001 mg: infuse over 2.5 hours For adult patients only: Round to nearest 250 mg per Medical Staff approval MEDICATION WASTE Product Size: 1000 mg Product Wasted: ___ mg [facility] Dilaudid 2019-03-23 21:18:00 No Notes: Same as: Dilaudid [facility] Acetaminophen 2019-03-23 21:15:00 No Notes: Do not exceed 4 gm/day. (Same as: Tylenol) [facility] Glucagon 2019-03-23 21:15:00 No 1 mg, Route: IM, Drug form: PDR/INJ, PRN, Dosing Weight 122.727, kg, PRN Blood Glucose Results, Start date: 03/23/19 16:15:00 CDT, Duration: 30 day, Stop date: 04/22/19 16:14:00 CDT, 0 [facility] Ondansetron 2019-03-23 21:15:00 No Notes: (Same as: Michale) MEDICATION WASTE Product Size: 4 mg Product Wasted: ___ mg Shahida Soto Dextrose 50% Syringe 2019-03-23 21:15:00 No 12.5 gm, 25 mL, Route: IVP, Drug Form: INJ, Dosing Weight 122.727, kg, PRN, PRN Blood Glucose Results, Start date: 03/23/19 16:15:00 CDT, Duration: 30 day, Stop date: 04/22/19 16:14:00 CDT, 0 [facility] Vancomycin 2019-03-23 19:21:00 No 2001 mg: infuse over 2.5 hours For adult patients only: Round to nearest 250 mg per Medical Staff approval MEDICATION WASTE Product Size: 1000 mg Product Wasted: ___ mg Shahida Soto Saline Flush 0.9% 2019-03-23 17:01:00 No Notes: preservative free. [facility] Acetaminophen 300 MG / Codeine Phosphate 30 MG Oral Tablet [Tylenol with Codeine #3] 2019-03-07 22:14:00 Yes 1 tab, PO, Q6H, PRN Pain, X 7 day, # 28 tab, 0 Refill(s) [facility] Doxycycline Monohydrate 100 MG Oral Tablet 2019-03-07 22:14:00 Yes 100 mg = 1 tab, PO, Q12H, X 10 day, # 20 tab, 0 Refill(s), Pharmacy: [facility] [id number] [address] Acetaminophen 325 MG / Hydrocodone Bitartrate 10 MG Or al Tablet [[place] 10/325] 2019-03-03 18:50:00 No Note s: Do not exceed 4gm/day of acetaminophen. (Same as: [place] 325/10) [facility] Hydromorphone 2019-03-03 18:49:00 No Notes: Same as: Dilaudid [facility] Zinc Sulfate 2019-03-03 14:00:00 No Notes: (Zinc sulfate capsule) - 220 mg Zinc sulfate = 50 mg elemental zinc Same as Zinc Sulfate [facility] Ambien 2019-03-03 02:00:00 No Notes: (Same As: María) [facility] Spironolactone 2019-03-02 19:46:00 No Notes: (Same As: Aldactone) [facility] Lidocaine 2019-03-02 19:17:00 No Notes: Preservative free. (Same as: Xylocaine MPF) [facility] Vancomycin 2019-03-01 18:00:00 No 2001 mg: infuse over 2.5 hours For adult patients only: Round to nearest 250 mg per Medical Staff approval MEDICATION WASTE Product Size: 1000 mg Product Wasted: ___ mg [facility] height weight allergies 2019-03-01 05:00:00 No height weight allergies, RN pls complete HWA for order verificati, Drug form: MISC, Route: MISC, ONCALL, 03/01/19 0:00:00 CDT, Duration: 30 day, Stop date: 03/30/19 23:59:00 CDT, 0 [facility] Enoxaparin 2019-03-01 05:00:00 No Notes: (S zenaida as: Lovenox) [facility] Dextrose 50% Syringe 2019-03-01 04:12:00 No 12.5 gm, 25 mL, Route: IVP, Drug Form: INJ, Dosing Weight 136.364, kg, PRN, PRN Blood Glucose Results, Start date: 02/28/19 23:12:00 CDT, Duration: 30 day, Stop date: 03/30/19 23:11:00 CDT, 0 [facility] Glucagon 2019-03-01 04:12:00 No 1 mg, Route: IM, Drug form: PDR/INJ, PRN, Dosing Weight 136.364, kg, PRN Blood Glucose Results, Start date: 02/28/19 23:12:00 CDT, Duration: 30 day, Stop date: 03/30/19 23:11:00 CDT, 0 [facility] Bisacodyl 2019-03-01 04:12:00 No Notes: (Same As: Dulcolax, Bisco-Lax) [facility] Ondansetron 2019-03-01 04:12:00 No Notes: (Same as: Zofran) MEDICATION WASTE Product Size: 4 mg Product Wasted: ___ mg [facility] Acetaminophen 2019-03-01 04:12:00 No Notes: Do not exceed 4 gm/day. (Same as: Tylenol) [facility] Melatonin 2019-03-01 04:12:00 No Notes: (Sa me as: Melatonin) [facility] Magnesium Oxide 2019-03-01 04:09:00 No Notes: (Same as: Mag-Ox 400) Magnesium oxide [id number] elemental magnesium Dose=____mg magnesium oxide (___mg elemental magnesium) Shahida bravo Magnesium Sulfate 2019-03-01 04:09:00 No Notes: WASTE: F/P - Sink; E - Municipal Trash Bin [facility] sodium phosphate 2019-03-01 04:09:00 No Notes: Infuse over 4 hour. Do not infuse phosphorous concurrently in the same line as TPN or IVF that contains calcium. For double lumen central lines, phosphorous may be infused in a separate lumen from TPN. [facility] abdulaziz Calcium Gluconate 2019-03-01 04:09:00 No Notes: WASTE: F/P - Sink; E - Municipal Trash [facility] Potassium Chloride 2019-03-01 04:09:00 No Notes: (Same as: K-Dur 20) "Do Not Crush" Give with food and full glass of water For patients unable to swallow tablet, dissolve in one half glass of water. Allow about 2 minutes for the tablets to disintegrate. Stir before giving to prepare slurry and administer. Please exclude Patient s with feeding tube less than 14 Vincentian (Dobhoff, J-tube etc) and pediatric and patients. [facility] potassium phosphate 2019-03-01 04:09:00 No Notes: (Same as: K Phosphate.) Do not infuse phosphorous concurrently in the same line as TPN or IVF that contains calcium. For double lumen central lines, phosphorous may be infused in a separate lumen from TPN. 1 mMol phoshate has 1.47 mEq potassium Infuse over 4 hours [facility] potassium phosphate-sodium phosphate 250 mg-280 mg-160 mg oral powder for reconstitution 2019-03-01 04:09:00 No Notes: (Same as: Phos-NaK) Each 1.5 gm pkt has 250mg phosphorous. Mix w/2.5oz water and stir. [facility] Hydromorphone 2019-03-01 04:08:00 No Notes: Same as: Dilaudid [facility] Tramadol 2019-03-01 04:08:00 No Notes: Not to [...] Size: 1000 mg Product Wasted: ___ mg [facility] [place] Vancomycin 2019-03-01 02:50:00 No 2001 mg: infuse over 2.5 hours For adult patients only: Round to nearest 250 mg per Medical Staff approval MEDICATION WASTE Product Size: 1000 mg Product Wasted: ___ mg [facility] NS (Bolus) IV 2019-03-01 02:50:00 No 1,000 mL, 1,000 ml/hr, Infuse Over: 1 hr, Route: IV, 1,000, Drug form: INJ, ONCE, Priority: STAT, Dosing Weight 136.364 kg, Start date: 02/28/19 21:50:00 CDT, Stop date: 02/28/19 21:50:00 CDT, 0 [facility] Zofran 2019-03-01 02:50:00 No Notes: (Same as: Zofrsteven) MEDICATION WASTE Product Size: 4 mg Product Wasted: ___ mg [facility] Morphine 2019-03-01 02:50:00 No Not es: (Same as:MORPhine Sulfate) [facility] Cefazolin 2019-01-31 20:00:00 No Notes: (Same As: Sang Romo) MEDICATION WASTE Product Size: 1000 mg Product Wasted: ___ mg [facility] ibuprofen 800 mg oral tablet 2019-01-31 19:00:00 Yes 800 mg = 1 tab, PO, Q8H, PRN Pain, Take with food, # 30 tab, 0 Refill(s), Pharmacy: [facility] [address] [place] [address] zinc sulfate 220 mg oral capsule 2019-01-31 18:31:00 Yes 220 mg = 1 cap, PO, Daily, # 30 cap, 0 Refill(s), Pharmacy: [facility] [address] [place] [address] cefpodoxime 200 mg oral tablet 2019-01-31 18:31:00 Yes 400 mg = 2 tab, PO, Q12H, X 10 day, # 40 tab, 0 Refill(s), Pharmacy: [facility] [address] [place] [address] Acetaminophen 300 MG / Codeine Phosphate 30 MG Oral Tablet [Tylenol with Codeine #3] 2019-01-31 15:02:00 No Notes: Do not exceed 4gm/day of acetaminophen. (Same as: Tylenol with Codeine # 3) [facility] ATTN: vanc trough ordered before 8PM dose 2019-01-31 00:30:00 No ATTN: vanc trough ordered before 8PM dose, dont give before lab is drawn, Drug form: MISC, Route: MISC, ONCE, 01/30/19 19:30:00 CDT, Stop date: 01/30/19 19:30:00 CDT [facility] Zinc Sulfate 2019-01-30 14:00:00 No Notes: (Zinc sulfate capsule) - 220 mg Zinc sulfate = 50 mg elemental zinc Same as Zinc Sulfate [facility] vancomycin + Sodium Chloride 0.9% IV 250 mL 2019-01-29 20:00:00 No 2001 mg: infuse over 2.5 hours For adult patients only: Round to nearest 250 mg per Medical Staff approval MEDICATION WASTE Product Size: 1000 mg Product Wasted: ___ mg [facility] vanco trough 2019-01-29 18:30:00 No vanco trough, reminder, Drug form: MISC, Route: MISC, ONCE, 01/29/19 13:30:00 CDT, Stop date: 01/29/19 13:30:00 CDT [facility] cefepime 2019-01-29 04:00:00 No Notes: (Same As: Maxipime) MEDICATION WASTE Product Size: 1000 mg Product Wasted: ___ mg [facility] RN - do not give vanc til trough is drawn 01/28 @ 12:30 2019-01-28 17:00:00 No RN - do not giv e vanc til trough is drawn 01/28 @ 12:30, attn, Drug form: MISC, Route: MISC, ONCE, 01/28/19 12:00:00 CDT, Stop date: 01/28/19 12:00:00 CDT [facility] Spironolactone 2019-01-28 14:00:00 No Notes: (Same As: Aldactone) [facility] zolpidem 2019-01-28 02:00:00 No Notes: (Byron e As: Ambien) [facility] Ambien 2019-01-28 02:00:00 No 10 mg, Route: PO, Drug form: TAB, Bedtime, Dosing Weight 127.273, kg, Start date: 01/27/19 21:00:00 CDT, Duration: 30 day, Stop date: 02/25/19 21:00:00 CDT [facility] Adderall 2019-01-27 22:00:00 No 30 mg, Route: PO, BID, Dosing Weight 127.273, kg, Start date: 01/27/19 17:00:00 CDT, Duration: 30 day, Stop date: 02/26/19 9:00:00 CDT [facility] *Please bring pt's own adderall to pharmacy for label* 2019-01-27 21:00:00 No *Please bring p t's own adderall to pharmacy for label*, ATTN:RN, Drug form: MISC, Route: MISC, QSHIFT, 01/27/19 16:00:00 CDT, Duration: 30 day, Stop date: 02/26/19 8:00:00 CDT [facility] abdulaziz Acetaminophen 325 MG / Hydrocodone Bitartrate 5 MG Oral Tabl et [[place] 5/325] 2019-01-27 13:58:00 No Notes: (Same as: [place] 325/5) Do not exceed 4gm/day of acetaminophen. [facility] Vancomycin 2019-01-27 10:00:00 No 1 [...] 2019-01-27 10:00:00 No Notes: (Same as: Lovenox) [facility] Morphine 2019-01-27 09:37:00 No Not es: (Same as:MORPhine Sulfate) Shahida Soto Dextrose 50% Syringe 2019-01-27 09:35:00 No 25 gm, 50 mL, Route: IVP, Drug Form: INJ, Dosing Weight 125, kg, PRN, PRN Blood Glucose Results, Start date: 01/27/19 4:35:00 CDT, Duration: 30 day, Stop date: 02/26/19 4:34:00 CDT [facility] Acetaminophen 2019-01-27 09:35:00 No Notes: Do not exceed 4 gm/day. (Same as: Tylenol) [facility] Ondansetron 2019-01-27 09:35:00 No Notes: (Same as: Zofran) MEDICATION WASTE Product Size: 4 mg Product Wasted: ___ mg Shahida Soto Glucagon 2019-01-27 09:35:00 No 1 mg, Route: IM, Drug form: PDR/INJ, PRN, Dosing Weight 125, kg, PRN Blood Glucose Results, Start date: 01/27/19 4:35:00 CDT, Duration: 30 day, Stop date: 02/26/19 4:34:00 CDT [facility] Morphine 2019-01-27 08:29:00 No 4 mg, Route: IVP, ONCE, Dosing Weight 125, kg, Priority: STAT, Start date: 01/27/19 3:29:00 CDT, Stop date: 01/27/19 3:29:00 CDT [facility] Vancomycin 2019-01-27 08:28:00 No 1,000 mg, Route: IVPB, Drug form: INJ, ONCE, Dosing Weight 125, kg, Priority: STAT, Start date: 01/27/19 3:28:00 CDT, Stop date: 01/27/19 3:28:00 CDT, ABX Indication: Skin/Soft Tissue Infection [facility] Charles Mupirocin 20 MG/ML Topical Cream 2018-12-13 02:25:00 Yes 1 appl, TOP, TID, X 5 day, # 15 gm, 0 Refill(s) Shahida Soto azithromycin 500 mg oral tablet 2018-12-13 02:24:00 Yes 500 mg = 1 tab, PO, Daily, X 5 day, # 5 tab, 0 Refill(s) Shahida Charles tedizolid 200 mg oral tablet 2018-12-09 22:27:00 Yes 200 mg = 1 tab, PO, Daily, X 6 day, # 6 tab, 0 Refill(s), Pharmacy: [facility] [id number] Shahida [place] Acetaminophen 300 MG / Codeine Phosphate 30 MG Oral Tablet [Tylenol with Codeine #3] 2018-12-09 22:25:00 Yes 1 tab, PO, Q6H, PRN Pain, X 7 day, # 30 tab, 0 Refill(s) Shhaida Soto vancomycin + Sodium Chloride 0.9% IV [...] 17:49:00 No Notes: (S zenaida as: Romazicon) [facility] Hydromorphone 2018-12-06 17:49:00 No Notes: Same as: Dilaudid [facility] Fentanyl 2018-12-06 17:49:00 No Notes: (Same as: Sublimaze) Preservative free. [facility] Hydralazine 2018-12-06 17:49:00 No Notes: (Same as: Apresoline) Push over 5 minutes [facility] dexamethasone (ANES) 2018-12-06 17:33:00 No Route: IV, Drug form: INJ, ONCE, Stop date: 12/06/18 12:33:00 CDT [facility] ondansetron (ANES) 2018-12-06 17:33:00 No Route: IV, Drug form: INJ, ONCE, Stop date: 12/06/18 12:33:00 CDT [facility] ketOROLAC (KAPILS) 2018-12-06 17:33:00 No IV, ONCE [facility] fentaNYL (ANES) 2018-12-06 17:33:00 No Route: IV, Drug form: INJ, ONCE, Stop date: 12/06/18 12:33:00 CDT [facility] midazolam (ANES) 2018-12-06 17:33:00 No Route: IV, Drug form: SOLN, ONCE, Stop date: 12/06/18 12:33:00 CDT [facility] propofol (ANES) 2018-12-06 17:33:00 No Route: IV, Drug form: INJ, ONCE, Stop date: 12/06/18 12:33:00 CDT [facility] vancomycin (KAPILS) 1000 mg 2018-12-06 16:45:00 No Route: IV, Drug form: INJ, Start date: 12/06/18 11:45:00 CDT, Stop date: 12/06/18 12:45:00 CDT [facility] Lactated Ringers Injection IV (ANES) 1000 mL 2018-12-06 16:45:00 No Route: IV, Total Volume: 1,000, Start date: 12/06/18 11:45:00 CDT, Stop date: 12/06/18 12:45:00 CDT [facility] Calcium Chloride 0.0014 MEQ/ML / Potassi um [...] Soto Enoxaparin 2018-12-04 03:00:00 No Notes: (S zeanida as: Lovenox) [facility] Vancomycin 2018-12-04 03:00:00 No 2001 mg: infuse over 2.5 hours For adult patients only: Round to nearest 250 mg per Medical Staff approval [facility] Vancomycin 2018-12-04 02:09:00 No 2001 mg: infuse over 2.5 hours For adult patients only: Round to nearest 250 mg per Medical Staff approval MEDICATION WASTE Product Size: 1000 mg Product Wasted: ___ mg [facility] Dextrose 50% Syringe 2018-12-04 02:07:00 No 25 gm, 50 mL, Route: IVP, Drug Form: INJ, Dosing Weight 126.364, kg, PRN, PRN Blood Glucose Results, Start date: 12/03/18 21:07:00 CDT, Duration: 30 day, Stop date: 01/02/19 21:06:00 CDT [facility] Glucagon 2018-12-04 02:07:00 No 1 mg, Route: IM, Drug form: PDR/INJ, PRN, Dosing Weight 126.364, kg, PRN Blood Glucose Results, Start date: 12/03/18 21:07:00 CDT, Duration: 30 day, Stop date: 01/02/19 21:06:00 CDT [facility] Bisacodyl 2018-12-04 02:07:00 No Notes: (Same As: Dulcolax, Bisco-Lax) [facility] Ondansetron 2018-12-04 02:07:00 No Notes: (Same as: Zofran) MEDICATION WASTE Product Size: 4 mg Product Wasted: ___ mg [facility] Melatonin 2018-12-04 02:07:00 No Notes: (Sa me as: Melatonin) [facility] Acetaminophen 2018-12-04 02:07:00 No Notes: Do not exceed 4 gm/day. (Same as: Tylenol) [facility] Hydromorphone 2018-12-04 02:06:00 No Notes: Same as: Dilaudid [facility] Tramadol 2018-12-04 02:06:00 No Notes: Not to exceed 400mg/day. (Same As: Ultram) [facility] LR IV 1,000 mL 2018-12-04 02:05:00 No 1,000 mL, Rate: 125 ml/hr, Infuse over: 8 hr, Route: IV, Dosing Weight 126.364 kg, Total Volume: 1,000, Start date: 12/03/18 21:05:00 CDT, Duration: 30 day, Stop date: 01/02/19 21:04:00 CDT, 2.47, m2 [facility] Calcium Gluconate 2018-12-04 02:05:00 No Notes: WASTE: F/P - Sink; E - Municipal Trash Bin [facility] Potassium Chloride 2018-12-04 02:05:00 No Notes: (Same as: K-Dur 20) "Do Not Crush" Give with food and full glass of water For patients unable to swallow tablet, dissolve in one half glass of water. Allow about 2 minutes for the tablets to disintegrate. Stir before giving to prepare slurry and administer. Please exclude Patient s with feeding tube less than 14 Vincentian (Dobhoff, J-tube etc) and pediatric and patients. [...] Notes: (Same as: Mag-Ox 400) Magnesium oxide [id number] elemental magnesium Dose=____mg magnesium oxide (___mg elemental [...] 20:56:00 CDT, Stop date: 12/03/18 20:56:00 CDT Nm christie Soto Sodium Chloride 0.9% (Bolus) IV 2018-12-03 23:40:00 No 1,000 mL, 1000 ml/hr, Infuse Over: 1 hr, Route: IV, 1,000, Drug form: INJ, ONCE, Priority: STAT, Dosing Weight 126.364 kg, Start date: 12/03/18 18:40:00 CDT, Stop date: 12/03/18 18:40:00 CDT [facility] Morphine 2018-12-03 23:40:00 No 4 mg, Route: IVP, ONCE, Dosing Weight 126.364, kg, Priority: STAT, Start date: 12/03/18 18:40:00 CDT, Stop date: 12/03/18 18:40:00 CDT Shahida bravo Vancomycin 2018-12-03 23:40:00 No 1,000 mg, Route: IVPB, ONCE, Dosing Weight 126.364, kg, Priority: STAT, Start date: 12/03/18 18:40:00 CDT, Stop date: 12/03/18 18:40:00 CDT, ABX Indication: Skin/Soft Tissue Infection [facility] Saline Flush 0.9% 2018-12-03 21:16:00 No Notes: (Same as: BD Posiflush) [facility] linezolid 600 mg oral tablet 2018-10-12 19:51:00 Yes 600 mg = 1 tab, PO, [id number], X 10 day, # 20 tab, 0 Refill(s), Pharmacy: [facility] [id number] [facility] Morphine 2018-10-12 04:38:00 No Not es: (Same as:MORPhine Sulfate) [facility] linezolid 2018-10-11 20:00:00 No Notes: Protect from light. (Same as: Zyvox) [facility] Vancomycin 2018-10-11 19:00:00 No 2001 mg: infuse over 2.5 hours For adult patients only: Round to nearest 250 mg per Medical Staff approval MEDICATION WASTE Product Size: 1000 mg Product Wasted: ___ mg [facility] Charles Lovenox 2018-10-11 17:00:00 No Notes: (Same as: Lovenox) [facility] Vancomycin 2018-10-11 16:46:00 No 1 ea, Route: MISC, ONCALL, Dosing Weight 133.182, kg, Priority: STAT, Start date: 10/11/18 10:46:00 SENIOR ETL DEVELOPER, Duration: 1 day, Stop date: 10/12/18 10:45:00 SENIOR ETL DEVELOPER, Pharmacy to dose, ABX Indication: Urinary Tract Infection [facility] Ambien 2018-10-11 16:46:00 No Notes: (Same As: Ambien) [facility] Acetaminophen 300 MG / Codeine Phosphate 30 MG Oral Tablet [Tylenol with Codeine #3] 2018-10-11 16:46:00 No Notes: Do not exceed 4gm/day of acetaminophen. (Same as: Tylenol with Codeine # 3) [facility] Dextrose 50% Syringe 2018-10-11 16:12:00 No 25 gm, 50 mL, Route: IVP, Drug Form: INJ, Dosing Weight 133.182, kg, PRN, PRN Blood Glucose Results, Start date: 10/11/18 10:12:00 SENIOR ETL DEVELOPER, Duration: 30 day, Stop date: 11/10/18 11:11:00 CDT [facility] Glucagon 2018-10-11 16:12:00 No 1 mg, Route: IM, Drug form: PDR/INJ, PRN, Dosing Weight 133.182, kg, PRN Blood Glucose Results, Start date: 10/11/18 10:12:00 SENIOR ETL DEVELOPER, Duration: 30 day, Stop date: 11/10/18 11:11:00 T [facility] Docusate 2018-10-11 15:00:00 No Notes: (Same as: Colace) (Do Not Crush) [facility] Dextrose 50% Syringe 2018-10-11 14:50:00 No 25 gm, 50 mL, Route: IVP, Drug Form: INJ, Dosing Weight 133.182, kg, PRN, PRN Blood Glucose Results, Start date: 10/11/18 8:50:00 SENIOR ETL DEVELOPER, Duration: 30 day, Stop date: 11/10/18 9:49:00 CDT [facility] Glucagon 2018-10-11 14:50:00 No 1 mg, Route: IM, Drug form: PDR/INJ, PRN, Dosing Weight 133.182, kg, PRN Blood Glucose Results, Start date: 10/11/18 8:50:00 SENIOR ETL DEVELOPER, Duration: 30 day, Stop date: 11/10/18 9:49:00 CDT Shahida Soto Ondansetron 2018-10-11 14:50:00 No Notes: (Same as: Michael) MEDICATION WASTE Product Size: 4 mg Product Wasted: ___ mg Shahida Soto COLLAGENASE 0.25 UNT/MG Topical Ointment [Santyl] 2018-10-11 11:26:00 No 1 appl, TOP, Daily, # 15 gm, 0 Refill(s) Shahida Soto Spironolactone 2018-10-11 11:26:00 Yes 50 mg, PO, Daily, # 60 tab, 0 Refill(s) Shahida Soto Zolpidem tartrate 10 MG Oral Tablet [Ambien] 2018-10-11 11:26:00 Yes 10 mg = 1 tab, PO, Bedtime, # 14 tab, 0 Refill(s) Shahida Soto Acetaminophen 325 MG / Hydrocodone Bitartrate 5 MG Oral Tabl et [[place] 5/325] 2018-10-11 09:20:00 No 1 tab, Route: PO, Drug Form: TAB, Dosing Weight 133.005, kg, ONCE, STAT, Start date: 10/11/18 3:20:00 SENIOR ETL DEVELOPER, Stop date: 10/11/18 3:20:00 SENIOR ETL DEVELOPER Shahida Soto Ibuprofen 2018-10-11 07:55:00 No 600 mg, Route: PO, Drug form: TAB, ONCE, Dosing Weight 133.005, kg, Priority: STAT, Start date: 10/11/18 1:55:00 SENIOR ETL DEVELOPER, Stop date: 10/11/18 1:55:00 SENIOR ETL DEVELOPER [facility] orial Charles Vancomycin 2018-10-11 05:27:00 No 2001 mg: infuse over 2.5 hours For adult patients only: Round to nearest 250 mg per Medical Staff approval MEDICATION WASTE Product Size: 1000 mg Product Wasted: ___ mg Shahida Soto Minocycline 2018-10-05 11:26:00 No 100 mg, PO, BID, 0 Refill(s) Shahida Multaniann Acetaminophen 300 MG / Codeine Phosphate 30 [...] kg, Priority: STAT, Start date: 09/06/18 0:58:00 SENIOR ETL DEVELOPER, Stop date: 09/06/18 0:58:00 SENIOR ETL DEVELOPER Shahida Soto Zofran 2018-09-06 06:58:00 No 4 mg, Route: IVP, Drug form: INJ, ONCE, Dosing Weight 120.455, kg, Priority: STAT, Start date: 09/06/18 0:58:00 SENIOR ETL DEVELOPER, Stop date: 09/06/18 0:58:00 SENIOR ETL DEVELOPER Mendoza Soto Sodium Chloride 0.9% (Bolus) IV 2018-09-06 06:57:00 No 1,000 mL, Infuse Over: 1 hr, Route: IV, ONCE, Priority: STAT, Dosing Weight 120.455 kg, Start date: 09/06/18 0:57:00 SENIOR ETL DEVELOPER, Stop date: 09/06/18 0:57:00 SENIOR ETL DEVELOPER Shahida Soto Acetaminophen 300 MG / Codeine Phosphate 30 MG Oral Tablet [Tylenol with Codeine #3] 2018-08-30 19:59:00 No 1 tab, PO, Q12H, PRN Pain, X 5 day, # 10 tab, 0 Refill(s) Shahida Soto heparin sodium, porcine 2500 UNT/ML Injectable Solution 2018-08-30 03:00:00 No Notes: porcine heparin [facility] Vancomycin 2018-08-28 02:00:00 No 2001 mg: infuse over 2.5 hours For adult patients only: Round to nearest 250 mg per Medical Staff approval MEDICATION WASTE Product Size: 1000 mg Product Wasted: ___ mg [facility] Saline Flush 0.9% 2018-08-27 22:00:00 No Notes: (Same as: BD Posiflush) [facility] Lidocaine Hydrochloride 10 MG/ML Injectable Solution 08-27 22:00:00 No Notes: (Same as: Xylocaine) [facility] Saline Flush 0.9% 2018-08-27 21:38:00 No Notes: (Same as: BD Posiflush) Shahida Soto morphine Sulfate 2018-08-26 21:06:00 No Notes: (Same as:MORPhine Sulfate) [facility] vancomycin + Sodium Chloride 0.9% IV 250 mL 2018-08-25 22:00:00 No 2001 mg: infuse over 2.5 hours For adult patients only: Round to nearest 250 mg per Medical Staff approval MEDICATION WASTE Product Size: 1000 mg Product Wasted: ___ mg [facility] vancomycin + Sodium Chloride 0.9% IV 250 mL 2018-08-25 04:00:00 No 2001 mg: infuse over 2.5 hours For adult patients only: Round to nearest 250 mg per Medical Staff approval MEDICATION WASTE Product Size: 1000 mg Product Wasted: ___ mg [facility] Tramadol 2018-08-25 02:00:00 No Notes: Not to exceed 400mg/day. 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 (Same as: [place] 325/10) [facility] Vancomycin 2018-08-24 21:00:00 No 2001 mg: infuse over 2.5 hours For adult patients only: Round to nearest 250 mg per Medical Staff approval MEDICATION WASTE Product Size: 1000 mg Product Wasted: ___ mg [facility] Dextrose 50% Syringe 2018-08-24 20:32:00 No 12.5 gm, 25 mL, Route: IVP, Drug Form: INJ, Dosing Weight 136.364, kg, PRN, PRN Blood Glucose Results, Start date: 08/24/18 14:32:00 SENIOR ETL DEVELOPER, Duration: 30 day, Stop date: 09/23/18 14:31:00 [facility] Glucagon 2018-08-24 20:32:00 No 1 mg, Route: IM, Drug form: PDR/INJ, PRN, Dosing Weight 136.364, kg, PRN Blood Glucose Results, Start date: 08/24/18 14:32:00 SENIOR ETL DEVELOPER, Duration: 30 day, Stop date: 09/23/18 14:31:00 [facility] Ondansetron 2018-08-24 20:32:00 No Notes: (Same as: Michael) MEDICATION WASTE Product Size: 4 mg Product Wasted: ___ mg [facility] Acetaminophen 2018-08-24 20:32:00 No Notes: Do not exceed 4 gm/day. (Same as: Tylenol) [facility] Morphine 2018-08-24 20:22:00 No 4 mg, Route: IVP, ONCE, Dosing Weight 120.455, kg, Start date: 08/24/18 14:22:00 SENIOR ETL DEVELOPER, Stop date: 08/24/18 14:22:00 [facility] Zofran 2018-08-24 13:41:00 No Notes: (Same as: [...] Size: 1000 mg Product Wasted: ___ mg [facility] Charles doxycycline hyclate 100 MG Oral Tablet 2018-05-22 17:14:00 No 100 mg = 1 tab, PO, Q12H, X 10 day, # 20 tab, 0 Refill(s), Pharmacy: [facility] [id number] [facility] Docusate Sodium 100 MG Oral Capsule [Colace] 2018-05-22 17:08:00 No 100 mg = 1 cap, PO, BID, PRN as needed for constipation, # 14 cap, 0 Refill(s), [facility] [id number] [facility] Acetaminophen 300 MG / Codeine Phosphate 30 MG Oral Tablet [Tylenol with Codeine #3] 2018-05-22 17:08:00 No 1 tab, PO, Q6H, PRN Pain Score 6-10, X 5 day, # 20 tab, 0 Refill(s) [facility] Nerissa cintron Docusate Sodium 100 MG Oral Capsule [Colace] 2018-05-22 14:00:00 No Notes: (Same as: Colace) (Do Not Crush) [facility] Acetaminophen 325 MG / Hydrocodone Bitartrate 5 MG Oral Tabl et [[place] 5/325] 2018-05-21 15:02:00 No Notes: (Same as: [place] 325/5) Do not exceed 4gm/day of acetaminophen. [facility] Hilda nn vancomycin + Sodium Chloride 0.9% IV 250 mL 2018-05-20 08:00:00 No 2001 mg: infuse over 2.5 hours For adult patients only: Round to nearest 250 mg per Medical Staff approval MEDICATION WASTE Product Size: 1000 mg Product Wasted: ___ mg [facility] vancomycin 2018-05-19 20:00:00 No 2001 mg: infuse [...] mg per Medical Staff approval Shahida Soto Ceftriaxone 2018-05-19 17:00:00 No Notes: (Same As: Rocephin). MEDICATION WASTE Product Size: 2000 mg Product Wasted: ___ mg Shahida Soto Phenergan 2018-05-19 15:36:00 No Notes: (Sa me as: Phenergan) [facility] Morphine 2018-05-19 04:11:00 No 2 mg, 1 mL, Route: IVP, Drug form: SOLN, ONCE, Dosing Weight 120.909, kg, Start date: 05/18/18 23:11:00 CDT, Stop date: 05/18/18 23:11:00 CDT [facility] morphine Sulfate 2018-05-19 02:31:00 No Notes: (Same as:MORPhine Sulfate) [facility] Acetaminophen 300 MG / Codeine Phosphate 30 MG Oral Tablet [Tylenol with Codeine #3] 2018-05-18 18:52:00 No Notes: Do not exceed 4gm/day of acetaminophen. (Same as: Tylenol with Codeine # 3) [facility] Meperidine 2018-05-18 18:51:00 No Notes: (S zenaida As: Demerol) [facility] Diphenhydramine 2018-05-18 18:51:00 No Notes: (Same as: Benadryl) [facility] Ondansetron 2018-05-18 18:51:00 No Notes: (Same as: Zofran) MEDICATION WASTE Product Size: 4 mg Product Wasted: ___ mg [facility] Promethazine 2018-05-18 18:51:00 No 6.25 mg, Route: IVPB, ONCE, Dosing Weight 120.909, kg, PRN Nausea & Vomiting, Start date: 05/18/18 13:51:00 CDT [facility] Naloxone 2018-05-18 18:51:00 No Notes: Same as Narcan [facility] Hydromorphone 2018-05-18 18:51:00 No Notes: Same as: Dilaudid [facility] Fentanyl 2018-05-18 18:51:00 No 50 microgram, Route: IVP, Q5Min, Dosing Weight 120.909, kg, PRN Pain Score 7-10, Priority: Routine, Start date: 05/18/18 13:51:00 CDT, Duration: 2 doses or times, Stop date: Limited # of times [facility] Flumazenil 2018-05-18 18:51:00 No Notes: (S zenaida as: Romazicon) [facility] Albuterol 0.83 MG/ML Inhalant Solution 2018-05-18 18:51:00 No Notes: SEE RT DOCUMENTATION (Same as: Proventil) [facility] Ketorolac 2018-05-18 18:51:00 No 4 days MEDICATION WASTE Product Size: 30 mg Product Wasted: ___ mg [facility] Labetalol 2018-05-18 18:51:00 No Notes: (Same as: Normodyne, Trandate) Push over 2 minutes Give bolus over 2-3 minutes. [facility] Hydralazine 2018-05-18 18:51:00 No Notes: (Same as: Apresoline) Push over 5 minutes [facility] Acetaminophen 2018-05-18 18:51:00 No Notes: Max acetaminophen 4000 mg/day (4 gm/day). (Same as: Tylenol Extra Strength) [facility] Oxycodone 2018-05-18 18:51:00 No Notes: (Sa me as: Roxicodone) [facility] lidocaine (ANES) 2018-05-18 18:43:00 No Route: IV, Drug form: INJ, ONCE, Stop date: 05/18/18 13:43:00 CDT [facility] ondansetron (ANES) 2018-05-18 18:43:00 No Route: IV, Drug form: INJ, ONCE, Stop date: 05/18/18 13:43:00 CDT [facility] propofol (ANES) 2018-05-18 18:43:00 No Route: IV, Drug form: INJ, ONCE, Stop date: 05/18/18 13:43:00 CDT [facility] dexamethasone (ANES) 2018-05-18 18:43:00 No Route: IV, Drug form: INJ, ONCE, Stop date: 05/18/18 13:43:00 CDT [facility] ketOROLAC (ANES) 2018-05-18 18:43:00 No IV, ONCE [facility] fentaNYL (ANES) 2018-05-18 18:43:00 No Route: IV, Drug form: INJ, ONCE, Stop date: 05/18/18 13:43:00 CDT Dl [facility] midazolam (ANES) 2018-05-18 18:43:00 No Route: IV, Drug form: SOLN, ONCE, Stop date: 05/18/18 13:43:00 CDT Dl [facility] vancomycin (ANES) 1000 mg 2018-05-18 18:16:00 No Route: IV, Drug form: INJ, Start date: 05/18/18 13:16:00 CDT, Stop date: 05/18/18 14:16:00 CDT [facility] Lactated Ringers Injection IV (ANES) 1000 mL 2018-05-18 18:16:00 No Route: IV, Total Volume: 1,000, Start date: 05/18/18 13:16:00 CDT, Stop date: 05/18/18 14:16:00 CDT [facility] Sodium Chloride 0.9% IV 1,000 mL 2018-05-18 18:01:00 No 1,000 mL, Rate: 25 ml/hr, Infuse over: 40 hr, Route: IV, Dosing Weight 120.909 kg, Total Volume: 1,000, Start date: 05/18/18 13:01:00 CDT, Duration: 30 day, Stop date: 06/17/18 13:00:00 CDT, 2.41, m2 [facility] Calcium Chloride 0.0014 MEQ/ML / Potassi um Chloride 0.004 MEQ/ML / Sodium Chloride 0.103 MEQ/ML / Sodium Lactate 0.028 MEQ/ML Injectable Solution 2018-05-18 18:01:00 No 1,000 mL, Rate: 25 ml/hr, Infuse over: 40 hr, Route: IV, Dosing Weight 120.909 kg, Total Volume: 1,000, Start date: 05/18/18 13:01:00 CDT, Duration: 30 day, Stop date: 06/17/18 13:00:00 CDT, 2.41, m2 [facility] vancomycin + Sodium Chloride 0.9% IV 250 mL 2018-05-17 19:00:00 No 1,000 mg, Route: IVPB, [id number], Dosing Weight 119.091, kg, Start date: 05/17/18 14:00:00 CDT, Duration: 7 day, Stop date: 05/24/18 2:00:00 CDT, ABX Indication: Skin/Soft Tissue Infection [facility] influenza virus vaccine, inactivated 2018-05-17 08:20:35 No Notes: (Same as: Fluzone Quadrivalent, Fluarix Quadrivalent) For 3 years of age and older (0.5 mL IM) Shake well before use [facility] Vancomycin 2018-05-17 08:00:00 No 1,000 mg, Route: IVPB, Drug form: INJ, [id number], Dosing Weight 119.091, kg, Start date: 05/17/18 3:00:00 CDT, Duration: 7 day, Stop date: 05/23/18 15:00:00 CDT, ABX Indication: Pneumonia [facility] Enoxaparin 2018-05-17 08:00:00 No Notes: (S zenaida as: Lovenox) [facility] Saline Flush 0.9% 2018-05-17 07:46:00 No Notes: (Same as: BD Posiflush) [facility] Lactated Ringers IV 1,000 mL 2018-05-17 07:46:00 No 1,000 mL, Rate: 75 ml/hr, Infuse over: 13.3 hr, Route: IV, Dosing Weight 119.091 kg, Total Volume: 1,000, Start date: 05/17/18 2:46:00 CDT, Duration: 30 day, Stop date: 06/16/18 2:45:00 CDT, 2.39, m2 [facility] Ondansetron 2018-05-17 07:46:00 No Notes: (Same as: Zofran) MEDICATION WASTE Product Size: 4 mg Product Wasted: ___ mg [facility] Acetaminophen 2018-05-17 07:46:00 No Notes: Do not exceed 4 gm/day. (Same as: Tylenol) Shahida Soto Morphine 2018-05-17 07:46:00 No 2 mg, 1 mL, Route: IVP, Drug form: SOLN, Q4H, Dosing Weight 119.091, kg, PRN Pain Score 7-10, Start date: 05/17/18 2:46:00 CDT, Duration: 30 day, Stop date: 06/16/18 2:45:00 CDT Shahida Soto Ondansetron 2018-05-17 06:21:00 No Notes: (Same as: Zofran) MEDICATION WASTE Product Size: 4 mg Product Wasted: ___ mg Shahida Soto Morphine 2018-05-17 06:21:00 No Not es: (Same as:MORPhine Sulfate) Shahida Soto Vancomycin 2018-05-17 05:38:00 No 2001 mg: infuse over 2.5 hours For adult patients only: Round to nearest 250 mg per Medical Staff approval MEDICATION WASTE Product Size: 1000 mg Product Wasted: ___ mg Shahida Soto Nitrofurantoin Monohyd/M-Cryst (Macrobid 100 Mg Capsul e) 100 Mg Capsule Nitrofurantoin Monohyd/M-Cryst (Macrobid 100 Mg Capsule) 100 Mg Capsule 2018-02-05 00:00:00 Yes Jagdish Abarca Md 100 Twic e A Day [facility] Ondansetron (Zofran Odt) 4 Mg Tab.rapdis Ondansetron ( Zofran Odt) 4 Mg Tab.rapdis 2018-02-05 00:00:00 Yes Jagdish Abarca Md 4 Every 6 Hours as needed for Nausea [facility] Methocarbamol 750 MG Oral Tablet [Robaxin] 2018-01-13 02:51:00 Yes 750 mg = 1 tab, PO, TID, PRN as needed for pain, X 7 day, # 30 tab, 0 Refill(s) Shahida Soto tramadol hydrochloride 50 MG Oral Tablet 2018-01-13 [...] Hydrocodone Nereyda trate 7.5 MG Oral Tablet [[place] 7.5/325] 2018-01-13 02:45:00 No Notes: Same as [place] 325-7.5mg Do not exceed 4gm/day of acetaminophen. Michael l Charles Valium 2018-01-13 01:08:00 No Notes: (Same as: Valium) Shahida Soto Ketorolac 2018-01-13 01:08:00 No 4 days MEDICATION WASTE Product Size: 30 mg Product Wasted: ___ mg Shahida Soto Tylenol 2018-01-12 21:33:00 No Notes: Do not exceed 4 gm/day. (Same as: Tylenol) Shahida Charles Buspirone 2016-12-31 17:00:00 No Notes: ([facility] As: BuSpar) Shahida Soto Phenergan 2016-12-31 14:31:00 No Notes: ([facility] as: Phenergan) Shahida Soto Phenergan 25 mg oral tablet 2016-12-31 14:31:00 Yes 25 mg, PO, Q6H, PRN Nausea & Vomiting, X 5 day, # 20 tab, 0 Refill(s), Pharmacy: [facility] [id number] Shahida Soto Sodium Chloride 0.154 MEQ/ML Injectable Solution 2016-12-31 14:3 0:00 No 1,000 mL, Rate: 150 ml/hr, I nfuse over: 6.7 hr, Route: IV, Dosing Weight 109 kg, Total Volume: 1,000, Start date: 12/31/16 9:30:00 CDT, Duration: 30 day, Stop date: 01/30/17 9:29:00 CDT Shahida Soto Trazodone 2016-12-31 14:25:00 No Notes: ([facility] As: Desyrel) Shahida Charles Cipro 2016-12-31 14:00:00 No Notes: May interfere w/enteral feedings - Take 1 hr before or 2 hrs after antacids, dairy pdt & minerals. On empty stomach. [facility] Flagyl 2016-12-31 14:00:00 No Notes: (Same as: Flagyl) Take with food/ avoid alcohol [facility] Fluoxetine 2016-12-31 14:00:00 No Notes: (S zenaida as: Prozac) Shahida Soto Levsin SL 2016-12-31 13:41:00 No Notes: (Same as: Levsin) Take 30 min before meal [facility] Promethazine 2016-12-31 10:15:00 No Notes: Do not give IV push. (Same as: Phenergan) [facility] Zofran 2016-12-31 09:33:00 No 4 mg, Route: IVP, Drug form: INJ, ONCE, Dosing Weight 109.091, kg, Priority: STAT, Start date: 12/31/16 4:33:00 CDT, Stop date: 12/31/16 4:33:00 CDT [facility] orial [place] Morphine 2016-12-31 09:30:00 No 4 mg, Route: IVP, ONCE, Dosing Weight 109.091, kg, Priority: STAT, Start date: 12/31/16 4:30:00 CDT, Stop date: 12/31/16 4:30:00 CDT [facility] Rocephin 2016-12-31 06:26:00 No Notes: (Same As: Rocephin). Use with 100 mL NS and infuse over 30 min MEDICATION WASTE Product Size: 1000 mg Product Wasted: ___ mg [facility] Ondansetron 2016-12-31 04:55:00 No Notes: (Same as: Zofran) MEDICATION WASTE Product Size: 4 mg Product Wasted: ___ mg [facility] Morphine 2016-12-31 04:55:00 No Not es: (Same as:MORPhine Sulfate) Shahida [place] Saline Flush 0.9% 2016-12-31 04:55:00 No Notes: (Same as: BD Posiflush) Shahida Charles Sodium Chloride 0.154 MEQ/ML Injectable Solution 2016-12-31 04:5 5:00 No 1,000 mL, 2,000 ml/hr, Infus e Over: 30 minutes, Route: IV, 1,000, Drug form: INJ, ONCE, Priority: STAT, Dosing Weight 109.091 kg, Start date: 12/30/16 23:55:00 CDT, Duration: 1 doses or times, Stop date: 12/30/16 23:55:00 CDT [facility] Ciprofloxacin 500 MG Oral Tablet [Cipro] 2016-12-25 23:04:00 Yes 500 mg = 1 tab, PO, Q12H, X 7 day, # 14 tab, 0 Refill(s), [facility]acy: [facility] [id number] [facility] Acetaminophen 300 MG / Codeine Phosphate 30 MG Oral Tablet [Tylenol with Codeine #3] 2016-12-25 23:04:00 No 1 - 2 tab, PO, Q4H, PRN Pain, X 2 day, # 10 tab, 0 Refill(s) [facility] Metronidazole 500 MG Oral Tablet [Flagyl] 2016-12-25 23:04:00 Yes 500 mg = 1 tab, PO, BID, X 7 day, # 14 tab, 0 Refill(s), Pharmacy: [facility] [id number] [facility] Sodium Chloride 0.154 MEQ/ML Injectable Solution 2016-12-25 22:5 3:00 No 500 mL, 500 ml/hr, Infuse Ov er: 1 hr, Route: IV, 500, Drug form: INJ, ONCE, Priority: STAT, Dosing Weight 109.091 kg, Start date: 12/25/16 17:53:00 CDT, Duration: 1 doses or times, Stop date: 12/25/16 17:53:00 CDT [facility] Acetaminophen 300 MG / Codeine Phosphate 30 MG Oral Tablet [Tylenol with Codeine #3] 2016-12-25 22:53:00 No Notes: Do not exceed 4gm/day of acetaminophen. (Same as: Tylenol with Codeine # 3) [facility] [place] Flagyl 2016-12-25 22:53:00 No Notes: (Same as: Flagyl) Avoid alcohol. [facility] Cipro 2016-12-25 22:53:00 No Notes: Do not refrigerate [facility] Saline Flush 0.9% 2016-12-25 19:20:00 No Notes: (Same as: BD Posiflush) [facility] Famotidine 40 MG Oral Tablet [Pepcid] 2016-07-20 [...] PO, Q8H, # 90 tab, 0 Refill(s) Shahida Soto Zofran 2016-07-20 03:44:00 No 4 mg, Route: IVP, Drug form: INJ, ONCE, Dosing Weight 104.545, kg, Priority: STAT, Start date: 07/19/16 21:44:00 SENIOR ETL DEVELOPER, Stop date: 07/19/16 21:44:00 SENIOR ETL DEVELOPER Nm christie Soto Ketorolac 2016-07-20 03:28:00 No 30 mg, Route: IVP, Drug form: INJ, ONCE, Dosing Weight 104.545, kg, Priority: STAT, Start date: 07/19/16 21:28:00 SENIOR ETL DEVELOPER, Stop date: 07/19/16 21:28:00 SENIOR ETL DEVELOPER Nm christie Soto Zofran 2016-07-20 01:40:00 No Notes: (Same as: Michael) MEDICATION WASTE Product Size: 4 mg Product Wasted: ___ mg Shahida Soto Famotidine 20 MG Oral Tablet [Pepcid] 2016-07-20 01:40:00 N o 20 mg, 1 tab, Route: PO, ONCE, Dosing Weight 104.545, kg, Start date: 07/19/16 19:40:00 SENIOR ETL DEVELOPER, Stop date: 07/19/16 19:40:00 SENIOR ETL DEVELOPER Dl murguia [place] Sodium Chloride 0.154 MEQ/ML Injectable Solution 2016-07-20 01:4 0:00 No 1,000 mL, 1,000 ml/hr, Infus e Over: 1 hr, Route: IV, 1,000, Drug form: INJ, ONCE, Priority: STAT, Dosing Weight 104.545 kg, Start date: 07/19/16 19:40:00 SENIOR ETL DEVELOPER, Duration: 1 doses or times, Stop date: 07/19/16 19:40:00 SENIOR ETL DEVELOPER [facility] GI cocktail 2016-07-20 01:39:00 No 30 mL, Route: PO, Dosing Weight 104.545, kg, ONCE, STAT, Start date: 07/19/16 19:39:00 SENIOR ETL DEVELOPER, Stop date: 07/19/16 19:39:00 SENIOR ETL DEVELOPER [facility] Carafate 2016-07-20 01:39:00 No Notes: May interfere w/enteral feeds - Take 1 hr before or 2 hr after antacids, dairy pdt, meals & minerals - On empty stomach. (Same As: Carafate) Efraín Soto Cyclobenzaprine hydrochloride 10 MG Oral Tablet [Flexeril] 2016-04-23 08:02:00 Yes 10 mg, PO, TID, PRN Muscle Spasm, X 10 day, # 30 tab, 0 Refill(s) [facility] tramadol hydrochloride 50 MG Oral Tablet 2016-04-23 06:34:00 No 50 mg, Route: PO, Drug form: TAB, ONCE, Dosing Weight 94.091, kg, Priority: STAT, Start date: 04/23/16 1:34:00 CDT, Stop date: 04/23/16 1:34:00 CDT [facility] Valium 2016-04-23 06:33:00 No 10 mg, Route: PO, ONCE, Dosing Weight 94.091, kg, Start date: 04/23/16 1:33:00 CDT, Stop date: 04/23/16 1:33:00 CDT [facility] Ketorolac 2016-04-23 06:33:00 No 60 mg, Route: IM, Drug form: INJ, ONCE, Dosing Weight 94.091, kg, Priority: STAT, Start date: 04/23/16 1:33:00 CDT, Stop date: 04/23/16 1:33:00 CDT [facility] orial [place] Methocarbamol 750 MG Oral Tablet [Robaxin] 2016-04-16 08:36:00 Yes 750 mg = 1 tab, PO, TID, PRN as needed for pain, X 10 day, # 30 tab, 0 Refill(s) [facility] Acetaminophen 300 MG / Codeine Phosphate 30 MG Oral Tablet [Tylenol with Codeine #3] 2016-04-16 08:36:00 No 1 - 2 tab, PO, Q4H, PRN Pain, X 2 day, # 24 tab, 0 Refill(s) [facility] Flexeril 2016-04-16 08:20:00 No 10 mg, Route: PO, ONCE, Dosing Weight 103.182, kg, Priority: STAT, Start date: 04/16/16 3:20:00 CDT, Stop date: 04/16/16 3:20:00 CDT [facility] Zofran ODT 2016-04-16 07:09:00 No 4 mg, Route: PO, Drug form: TABDIS, ONCE, Dosing Weight 103.182, kg, Priority: STAT, Start date: 04/16/16 2:09:00 CDT, Stop date: 04/16/16 2:09:00 CDT [facility] Dilaudid 2016-04-16 07:09:00 No 1 mg, Route: IM, ONCE, Dosing Weight 103.182, kg, Priority: STAT, Start date: 04/16/16 2:09:00 CDT, Stop date: 04/16/16 2:09:00 CDT [facility] promethazine 12.5 mg oral tablet 2016-04-14 08:15:00 Yes 12.5 mg = 1 tab, PO, Q6H, PRN Nausea & Vomiting, X 5 day, # 20 tab, 0 Refill(s) [facility] Hyoscyamine Sulfate 0.125 MG Sublingual Tablet [Levsin] 2016-04-14 08:14:00 Yes 0.125 mg = 1 ta b, SL, Q6H, PRN abdominal spasm, # 28 tab, 0 Refill(s) [facility] omeprazole 40 mg oral delayed release capsule 2016-04-14 08:13:0 0 Yes 40 mg = 1 cap, PO, Daily, # 30 cap, 0 Refill(s) [facility] Promethazine 2016-04-14 08:04:00 No Notes: Do not give IV push. (Same as: Phenergan) [facility] GI cocktail 2016-04-14 07:12:00 No 30 mL, Route: PO, Dosing Weight 103.182, kg, ONCE, STAT, Start date: 04/14/16 2:12:00 CDT, Stop date: 04/14/16 2:12:00 CDT [facility] pantoprazole 2016-04-14 07:12:00 No 40 mg, Route: IVP, ONCE, Dosing Weight 103.182, kg, Priority: STAT, Start date: 04/14/16 2:12:00 CDT, Stop date: 04/14/16 2:12:00 CDT [facility] Morphine 2016-04-14 05:57:00 No 4 mg, Route: IVP, Drug form: INJ, ONCE, Dosing Weight 103.182, kg, Priority: STAT, Start date: 04/14/16 0:57:00 CDT, Stop date: 04/14/16 0:57:00 [facility] 2016-04-14 05:57:00 No 40 mg, Route: IVP, ONCE, Dosing Weight 103.182, kg, For IV push reconstitute with 10 ml 0.9% sodium chloride and push over at least 3 minutes, Priority: STAT, Start date: 04/14/16 0:57:00 CDT, Stop date: 04/14/16 0:57:00 CDT [facility] [place] Ondansetron 2016-04-14 05:57:00 No 4 mg, Route: IVP, ONCE, Dosing Weight 103.182, kg, Priority: STAT, Start date: 04/14/16 0:57:00 CDT, Stop date: 04/14/16 0:57:00 CDT [facility] Sodium Chloride 0.154 MEQ/ML Injectable Solution 2016-04-14 05:5 7:00 No 1,000 mL, 2,000 ml/hr, Infus e Over: 30 minutes, Route: IV, ONCE, Priority: STAT, Dosing Weight 103.182 kg, Start date: 04/14/16 0:57:00 CDT, Duration: 1 doses or times, Stop date: 04/14/16 0:57:00 CDT [facility] Saline Flush 0.9% 2016-04-14 05:57:00 No Notes: (Same as: BD Posiflush) Shahida Soto Reglan 2016-02-24 06:09:00 No 10 mg, Route: IVP, Drug form: INJ, ONCE, Dosing Weight 100.455, kg, Priority: STAT, Start date: 02/24/16 1:09:00 CDT, Stop date: 02/24/16 1:09:00 CDT [facility] dorothea Soto Levsin 2016-02-24 06:09:00 No Notes: (Same [...] 0:09:00 CDT, Stop date: 02/24/16 0:09:00 CDT [facility] dorothea Soto Magnesium Sulfate 2016-02-24 04:50:00 No 1 gm, Route: IV, ONCE, Dosing Weight 100.455, kg, Start date: 02/23/16 23:50:00 CDT, Stop date: 02/23/16 23:50:00 CDT [facility] Zofran 2016-02-24 04:34:00 No 4 mg, Route: IVP, Drug form: INJ, ONCE, Dosing Weight 100.455, kg, Priority: STAT, Start date: 02/23/16 23:34:00 CDT, Stop date: 02/23/16 23:34:00 [facility] Sodium Chloride 0.154 MEQ/ML Injectable Solution 2016-02-24 04:3 4:00 No 1,000 mL, 1,000 ml/hr, Infus e Over: 1 hr, Route: IV, ONCE, Priority: STAT, Dosing Weight 100.455 kg, Start date: 02/23/16 23:34:00 CDT, Duration: 1 doses or times, Stop date: 02/23/16 23:34:00 CDT Shahida Multaniann Saline Flush 0.9% 2016-02-24 03:26:00 No Notes: (Same as: BD Posiflush) Shahida Soto Morphine 2016-01-17 05:13:00 No Not es: (Same [...] day, # 10 tab, 0 Refill(s) Shahida Senia valdes Bentyl 2016-01-17 04:00:00 No 20 mg, Route: IM, ONCE, Dosing Weight 100.455, kg, Start date: 01/16/16 23:00:00 CDT, Stop date: 01/16/16 23:00:00 CDT Shahida Soto Zofran 2016-01-17 03:59:00 No 4 mg, Route: IVP, Drug form: INJ, ONCE, Dosing Weight 100.455, kg, Priority: STAT, Start date: 01/16/16 22:59:00 CDT, Stop date: 01/16/16 22:59:[address] [facility] Morphine 2016-01-17 02:57:00 No Not es: (Same as:MORPhine Sulfate) Shahida Soto Ondansetron 2016-01-17 02:40:00 No Notes: (Same as: Zofran) MEDICATION WASTE Product Size: 4 mg Product Wasted: ___ mg Shahida Soto Famotidine 2016-01-17 02:40:00 No Notes: (Same as: [...] IV push over at least 2 minutes. [facility] GI cocktail 2015-10-13 08:13:00 No Notes: G.I. Cocktail = antacid with simethicone 22.5 mL - lidocaine viscous 7.5 mL [facility] Saline Flush 0.9% 2015-10-13 08:13:00 No Notes: (Same as: BD Posiflush) [facility] Sodium Chloride 0.154 MEQ/ML Injectable Solution 2015-10-13 08:1 3:00 No 1,000 mL, 1000 ml/hr, Infuse Over: 1 hr, Route: IV, 1,000, Drug form: INJ, ONCE, Priority: STAT, Dosing Weight 101.818 kg, Start date: 10/13/15 2:13:00, Duration: 1 doses or times, Stop date: 10/13/15 2:13:00 [facility] Diphenhydramine 2015-07-04 06:52:00 No 25 mg, Route: IVP, ONCE, Dosing Weight 107.273, kg, Priority: STAT, Start date: 07/04/15 0:52:00, Stop date: 07/04/15 0:52:00 [facility] Famotidine 2015-07-04 06:52:00 No 20 mg, Route: IVP, ONCE, Dosing Weight 107.273, kg, Priority: STAT, Start date: 07/04/15 0:52:00, Stop date: 07/04/15 0:52:00 [facility] Morphine 2015-07-04 06:52:00 No 4 mg, Route: IVP, ONCE, Dosing Weight 107.273, kg, Priority: STAT, Start date: 07/04/15 0:52:00, Stop date: 07/04/15 0:52:00 [facility] Sodium Chloride 0.154 MEQ/ML Injectable Solution 2015-07-04 06:5 2:00 No 1,000 mL, 1,000 ml/hr, Infus e Over: 1 hr, Route: IV, ONCE, Priority: STAT, Dosing Weight 107.273 kg, Start date: 07/04/15 0:52:00, Duration: 1 doses or times, Stop date: 07/04/15 0:52:00 Memor ramón Soto GI cocktail 2015-07-04 06:52:00 No 30 mL, Route: PO, Dosing Weight 107.273, kg, ONCE, STAT, Start date: 07/04/15 0:52:00, Stop date: 07/04/15 0:52:00 [facility] [place] Acetaminophen 325 MG / Hydrocodone Bitartrate 5 MG Oral Tabl et 2015-05-17 10:39:00 No Notes: (Sa me as: [place] 325/5) Do not exceed 4gm/day of acetaminophen. [facility] Ibuprofen 2015-05-17 07:14:00 No 600 mg, Route: PO, ONCE, Dosing Weight 112.273, kg, Priority: STAT, Start date: 05/17/15 2:14:00, Stop date: 05/17/15 2:14:00 [facility] omeprazole 40 mg oral delayed release capsule 2015-05-15 12:39:0 0 Yes 40 mg = 1 cap, PO, Daily, # 30 cap, 0 Refill(s) [facility] Dicyclomine Hydrochloride 20 MG Oral Tablet [Bentyl] 2 12:38:00 Yes 20 mg = 1 tab, PO, QID-Before Meals, # 2 8 tab, 0 Refill(s) [facility] Ondansetron 4 MG Oral Tablet [Zofran] 2015-05-15 12:38:00 Y es 4 mg = 1 tab, PO, TID, X 5 day, # 15 tab, 0 Refill(s) [facility] Acetaminophen 325 MG / Hydrocodone Nereyda trate 7.5 MG Oral Tablet [[place] 7.5/325] 2015-05-15 12:15:00 No 1 tab, Route: PO, Drug Form: TAB, Dosing Weight 122.727, kg, ONCE, STAT, Start date: 05/15/15 7:15:00, Stop date: 05/15/15 7:15:00 [facility] Ketorolac 2015-05-15 12:14:00 No 30 mg, Route: IVP, Drug form: INJ, ONCE, Dosing Weight 122.727, kg, Priority: STAT, Start date: 05/15/15 7:14:00, Stop date: 05/15/15 7:14:00 [facility] lawrence Zofran 2015-05-15 11:28:00 No 4 mg, Route: IVP, Drug form: INJ, ONCE, Dosing Weight 122.727, kg, Priority: STAT, Start date: 05/15/15 6:28:00, Stop date: 05/15/15 6:28:00 Shahida bravo Morphine 2015-05-15 09:19:00 No 4 mg, Route: IVP, Drug form: INJ, ONCE, Dosing Weight 122.727, kg, Priority: STAT, Start date: 05/15/15 4:19:00, Stop date: 05/15/15 4:19:00 [facility] Her bravo Zofran 2015-05-15 09:19:00 No 4 mg, Route: IVP, Drug form: INJ, ONCE, Dosing Weight 122.727, kg, Priority: STAT, Start date: 05/15/15 4:19:00, Stop date: 05/15/15 4:19:00 [facility] Her bravo Sodium Chloride 0.154 MEQ/ML Injectable [...] doses or times, Stop date: 02/14/15 1:40:00 Shhaida Soto Benadryl 2015-02-14 06:05:00 No Notes: (Byron e as: Benjakubrytereso) Shahida Soto Reglan 2015-02-14 06:05:00 No Notes: (Same as: Reglan) [facility] Ondansetron 4 MG Oral Tablet [Zofran] 2014-09-30 07:04:00 Y es 4 mg = 1 tab, PO, BID, # 10 tab, 0 Refill(s) [facility] Morphine 2014-09-30 06:32:00 No 4 mg, Route: IV, Drug form: INJ, ONCE, Dosing Weight 118.182, kg, Start date: 09/30/14 0:32:00, Stop date: 09/30/14 0:32:00 [facility] [place] Morphine 2014-09-30 06:31:00 No 4 mg, Route: IM, Drug form: INJ, ONCE, Dosing Weight 118.182, kg, Priority: STAT, Start date: 09/30/14 0:31:00, Stop date: 09/30/14 0:31:00 [facility] Saline Flush 0.9% 2014-09-30 05:25:00 No Notes: Same as: BD Posiflush Sterile [facility] Sodium Chloride 0.154 MEQ/ML Injectable Solution 2014-09-30 05:2 5:00 No 1,000 mL, Infuse Over: 1 hr, Route: IV, ONCE, Priority: STAT, Dosing Weight 118.182 kg, Start date: 09/29/14 23:25:00, Duration: 1 doses or times, Stop date: 09/29/14 23:25:00 [facility] Vital Signs Vital Name Observation Time Observation Value Comments Source Temperature Oral (F) 2020-03-26 16:57:00 98.6 F [facility] Heart Rate 2020-03-26 16:57:00 [facility] [place] Systolic (mm Hg) 2020-03-26 16:57:00 Efraín rial [place] Diastolic (mm Hg) 2020-03-26 16:57:00 [facility] orial Charles Temperature Oral (F) 2020-03-26 13:00:00 98.2 F [facility] Heart Rate 2020-03-26 13:00:00 [facility] Respitory Rate 2020-03-26 13:00:00 [facility] [place] Systolic (mm Hg) 2020-03-26 13:00:00 Efraín rial [place] Diastolic (mm Hg) 2020-03-26 13:00:00 [facility] Temperature Oral (F) 2020-03-26 09:00:00 98.1 F [facility] Heart Rate 2020-03-26 09:00:00 [facility] [place] Respitory Rate 2020-03-26 09:00:00 [facility] [place] Systolic (mm Hg) 2020-03-26 09:00:00 Efraín rial [place] Diastolic (mm Hg) 2020-03-26 09:00:00 [facility] [place] Respitory Rate 2020-03-26 05:00:00 [facility] [place] Height 2020-03-23 08:19:00 167.64 cm [facility] [place] Weight 2020-03-23 08:19:00 [facility] BMI Calculated 2020-03-23 08:19:00 [facility] Temperature Oral (F) 2019-11-04 16:17:00 99.3 F [facility] [place] Heart Rate 2019-11-04 16:17:00 [facility] Respitory Rate 2019-11-04 16:17:00 [facility] [place] Systolic (mm Hg) 2019-11-04 16:17:00 Efraín rial [place] Diastolic (mm Hg) 2019-11-04 16:17:00 [facility] [place] Temperature Oral (F) 2019-11-04 12:53:00 98.2 F [facility] [place] Heart Rate 2019-11-04 12:53:00 [facility] Respitory Rate 2019-11-04 12:53:00 [facility] [place] Systolic (mm Hg) 2019-11-04 12:53:00 Efraín rial [facility] Diastolic (mm Hg) 2019-11-04 12:53:00 [facility] Temperature Oral (F) 2019-11-04 08:40:00 98.2 F [facility] Heart Rate 2019-11-04 08:40:00 [facility] Systolic (mm Hg) 2019-11-04 08:40:00 Efraín rial [facility] Diastolic (mm Hg) 2019-11-04 08:40:00 [facility] Respitory Rate 2019-11-04 03:38:00 [facility] Height 2019-11-02 08:32:00 167.64 cm [facility] [place] Weight 2019-11-02 08:32:00 [facility] BMI Calculated 2019-11-02 08:32:00 [facility] [place] Temperature Oral (F) 2019-05-25 09:20:00 98 F [facility] Heart Rate 2019-05-25 09:20:00 [facility] [place] Respitory Rate 2019-05-25 09:20:00 [facility] [place] Systolic (mm Hg) 2019-05-25 09:20:00 Efraín rial [place] Diastolic (mm Hg) 2019-05-25 09:20:00 Mem [facility] [place] Temperature Oral (F) 2019-05-25 07:10:00 98 F [facility] [place] Heart Rate 2019-05-25 07:10:00 [facility] Respitory Rate 2019-05-25 07:10:00 [facility] [place] Systolic (mm Hg) 2019-05-25 07:10:00 Efraín rial [place] Diastolic (mm Hg) 2019-05-25 07:10:00 [facility] Systolic (mm Hg) 2019-05-25 05:17:00 Efraín rial [place] Diastolic (mm Hg) 2019-05-25 05:17:00 [facility] Heart Rate 2019-05-25 05:17:00 [facility] Respitory Rate 2019-05-25 05:17:00 [facility] [place] Temperature Oral (F) 2019-05-25 05:17:00 98.2 F [facility] [place] Height 2019-05-25 05:17:00 167.64 cm [facility] [place] BMI Calculated 2019-05-25 05:17:00 [facility] [place] Weight 2019-05-25 05:17:00 [facility] [place] Systolic (mm Hg) 2019-05-16 22:30:00 Efraín rial [place] Diastolic (mm Hg) 2019-05-16 22:30:00 [facility] Respitory Rate 2019-05-16 22:30:00 [facility] Heart Rate 2019-05-16 22:30:00 [facility] Temperature Oral (F) 2019-05-16 22:30:00 98.6 F [facility] Systolic (mm Hg) 2019-05-16 19:01:00 Efraín rial [place] Diastolic (mm Hg) 2019-05-16 19:01:00 Mem [facility] [place] Heart Rate 2019-05-16 19:01:00 [facility] Respitory Rate 2019-05-16 19:01:00 [facility] [place] Temperature Oral (F) 2019-05-16 19:01:00 98.8 F [facility] [place] Height 2019-05-16 19:01:00 167.64 cm [facility] [place] BMI Calculated 2019-05-16 19:01:00 Mem[facility] al [facility] Weight 2019-05-16 19:01:00 [facility] [place] Temperature Oral (F) 2019-04-04 01:04:00 98.6 F [facility] [place] Heart Rate 2019-04-04 01:04:00 [facility] Respitory Rate 2019-04-04 01:04:00 [facility] [place] Systolic (mm Hg) 2019-04-04 01:04:00 Efraín rial [place] Diastolic (mm Hg) 2019-04-04 01:04:00 Mem [facility] [place] Systolic (mm Hg) 2019-04-03 20:30:00 Efraín rial [place] Diastolic (mm Hg) 2019-04-03 20:30:00 Mem [facility] [place] Heart Rate 2019-04-03 20:30:00 [facility] [place] Respitory Rate 2019-04-03 20:30:00 [facility] [place] Temperature Oral (F) 2019-04-03 20:30:00 98.6 F [facility] [place] Weight 2019-04-03 20:30:00 [facility] Systolic (mm Hg) 2019-03-24 17:01:00 Efraín rial [place] Diastolic (mm Hg) 2019-03-24 17:01:00 Mem [facility] Respitory Rate 2019-03-24 17:01:00 [facility] [place] Heart Rate 2019-03-24 17:01:00 [facility] [place] Temperature Oral (F) 2019-03-24 17:01:00 98.7 F [facility] Temperature Oral (F) 2019-03-24 13:35:00 98.0 F [facility] [place] Heart Rate 2019-03-24 13:35:00 [facility] [place] Systolic (mm Hg) 2019-03-24 13:35:00 Efraín rial [place] Diastolic (mm Hg) 2019-03-24 13:35:00 Mem o[facility] [place] Respitory Rate 2019-03-24 13:35:00 [facility] Heart Rate 2019-03-24 09:00:00 [facility] [place] Respitory Rate 2019-03-24 09:00:00 [facility] [place] Systolic (mm Hg) 2019-03-24 09:00:00 Efraín rial [place] Diastolic (mm Hg) 2019-03-24 09:00:00 [facility] Temperature Oral (F) 2019-03-24 09:00:00 98.1 F [facility] BMI Calculated 2019-03-23 23:51:00 [facility] Height 2019-03-23 23:51:00 167.64 cm [facility] Weight 2019-03-23 23:51:00 [facility] BMI Calculated 2019-03-23 16:59:00 [facility] [place] Weight 2019-03-23 16:59:00 [facility] [place] Height 2019-03-23 16:59:00 167.64 cm [facility] Heart Rate 2019-03-07 20:22:00 [facility] Respitory Rate 2019-03-07 20:22:00 [facility] [place] Systolic (mm Hg) 2019-03-07 20:22:00 Efraín rial [place] Diastolic (mm Hg) 2019-03-07 20:22:00 [facility] [place] Temperature Oral (F) 2019-03-07 20:22:00 98.5 F [facility] Systolic (mm Hg) 2019-03-07 15:57:00 Efraín rial [place] Diastolic (mm Hg) 2019-03-07 15:57:00 [facility] Respitory Rate 2019-03-07 15:57:00 [facility] Temperature Oral (F) 2019-03-07 15:57:00 98.4 F [facility] Heart Rate 2019-03-07 15:57:00 [facility] Systolic (mm Hg) 2019-03-07 13:13:00 Efraín rial [place] Diastolic (mm Hg) 2019-03-07 13:13:00 [facility] Heart Rate 2019-03-07 13:13:00 [facility] [place] Respitory Rate 2019-03-07 13:13:00 [facility] [place] Temperature Oral (F) 2019-03-07 13:13:00 98.2 F [facility] [place] Height 2019-03-01 05:55:00 167.64 cm [facility] [place] Weight 2019-03-01 05:55:00 [facility] [place] BMI Calculated 2019-03-01 05:55:00 [facility] Weight 2019-03-01 01:00:00 [facility] Heart Rate 2019-01-31 19:54:00 [facility] [place] Systolic (mm Hg) 2019-01-31 19:54:00 Efraín rial [place] Diastolic (mm Hg) 2019-01-31 19:54:00 Mem o[facility] [place] Systolic (mm Hg) 2019-01-31 19:44:00 Efraín rial [place] Diastolic (mm Hg) 2019-01-31 19:44:00 [facility] [place] Heart Rate 2019-01-31 19:44:00 [facility] [place] Systolic (mm Hg) 2019-01-31 19:31:00 Efraín rial [place] Diastolic (mm Hg) 2019-01-31 19:31:00 [facility] [place] Heart Rate 2019-01-31 19:31:00 [facility] Temperature Oral (F) 2019-01-31 17:05:00 98.8 F [facility] Temperature Oral (F) 2019-01-31 13:54:00 98.7 F [facility] [place] Respitory Rate 2019-01-31 08:40:00 [facility] [place] Temperature Oral (F) 2019-01-31 08:40:00 98.9 F [facility] [place] Respitory Rate 2019-01-31 04:46:00 [facility] [place] Respitory Rate 2019-01-31 00:20:00 [facility] [place] BMI Calculated 2019-01-27 11:20:00 [facility] Height 2019-01-27 11:20:00 167.64 cm [facility] [place] Weight 2019-01-27 11:20:00 [facility] [place] Weight 2019-01-27 06:56:00 [facility] BMI Calculated 2019-01-27 06:56:00 [facility] Height 2019-01-27 06:56:00 167.64 cm [facility] Systolic (mm Hg) 2018-12-13 03:27:00 Efraín rial [facility] Diastolic (mm Hg) 2018-12-13 03:27:00 Mem [facility] [place] Respitory Rate 2018-12-13 03:27:00 [facility] [place] Heart Rate 2018-12-13 03:27:00 [facility] Temperature Oral (F) 2018-12-13 03:27:00 98.8 F [facility] BMI Calculated 2018-12-13 01:17:00 [facility] [place] Weight 2018-12-13 01:17:00 [facility] Height 2018-12-13 01:17:00 167.64 cm [facility] Respitory Rate 2018-12-13 01:17:00 [facility] [place] Temperature Oral (F) 2018-12-13 01:17:00 99.2 F [facility] [place] Heart Rate 2018-12-13 01:17:00 [facility] [place] Systolic (mm Hg) 2018-12-13 01:17:00 Efraín rial [place] Diastolic (mm Hg) 2018-12-13 01:17:00 [facility] Systolic (mm Hg) 2018-12-09 20:35:00 Efraín rial [place] Diastolic (mm Hg) 2018-12-09 20:35:00 [facility] [place] Respitory Rate 2018-12-09 20:35:00 [facility] [place] Heart Rate 2018-12-09 20:35:00 [facility] Temperature Oral (F) 2018-12-09 20:35:00 99.1 F [facility] [place] Temperature Oral (F) 2018-12-09 16:07:00 98.5 F [facility] Systolic (mm Hg) 2018-12-09 16:07:00 Efraín rial [place] Diastolic (mm Hg) 2018-12-09 16:07:00 [facility] [place] Respitory Rate 2018-12-09 16:07:00 [facility] Heart Rate 2018-12-09 16:07:00 [facility] Systolic (mm Hg) 2018-12-09 12:39:00 Efraín rial [facility] Diastolic (mm Hg) 2018-12-09 12:39:00 [facility] [place] Respitory Rate 2018-12-09 12:39:00 [facility] Heart Rate 2018-12-09 12:39:00 [facility] [place] Temperature Oral (F) 2018-12-09 12:39:00 98.4 F [facility] [place] Weight 2018-12-04 12:06:00 [facility] Height 2018-12-04 03:30:00 167.64 cm [facility] BMI Calculated 2018-12-04 03:30:00 [facility] [place] Weight 2018-12-04 03:30:00 [facility] [place] BMI Calculated 2018-12-03 20:49:00 [facility] [place] Weight 2018-12-03 20:49:00 [facility] Height 2018-12-03 20:49:00 167.64 cm [facility] Systolic (mm Hg) 2018-10-12 17:28:00 Efraín rial [place] Diastolic (mm Hg) 2018-10-12 17:28:00 [facility] Heart Rate 2018-10-12 17:28:00 [facility] [place] Respitory Rate 2018-10-12 17:28:00 [facility] [place] Temperature Oral (F) 2018-10-12 17:28:00 98.3 F [facility] [place] Heart Rate 2018-10-12 13:39:00 [facility] Temperature Oral (F) 2018-10-12 13:39:00 97.9 F [facility] Systolic (mm Hg) 2018-10-12 13:39:00 Efraín rial [place] Diastolic (mm Hg) 2018-10-12 13:39:00 [facility] [place] Respitory Rate 2018-10-12 13:39:00 [facility] [place] Systolic (mm Hg) 2018-10-12 09:47:00 Efraín rial [facility] Diastolic (mm Hg) 2018-10-12 09:47:00 [facility] Respitory Rate 2018-10-12 09:47:00 [facility] [place] Heart Rate 2018-10-12 09:47:00 [facility] [place] Temperature Oral (F) 2018-10-12 09:47:00 98.0 F [facility] [place] Weight 2018-10-11 11:23:00 [facility] Height 2018-10-11 11:23:00 167.64 cm [facility] BMI Calculated 2018-10-11 11:23:00 [facility] [place] Systolic (mm Hg) 2018-10-11 09:27:00 Efraín rial [facility] Diastolic (mm Hg) 2018-10-11 09:27:00 [facility] Temperature Oral (F) 2018-10-11 09:27:00 98.2 F [facility] [place] Respitory Rate 2018-10-11 09:27:00 [facility] Heart Rate 2018-10-11 09:27:00 [facility] Respitory Rate 2018-10-11 05:07:00 [facility] [place] Heart Rate 2018-10-11 05:07:00 [facility] [place] Temperature Oral (F) 2018-10-11 05:07:00 98 F [facility] Systolic (mm Hg) 2018-10-11 05:07:00 Efraín rial [place] Diastolic (mm Hg) 2018-10-11 05:07:00 [facility] [place] Weight 2018-10-11 01:12:00 [facility] Temperature Oral (F) 2018-10-11 01:12:00 98.6 F [facility] [place] Heart Rate 2018-10-11 01:12:00 [facility] Respitory Rate 2018-10-11 01:12:00 [facility] Systolic (mm Hg) 2018-10-11 01:12:00 Efraín rial [place] Diastolic (mm Hg) 2018-10-11 01:12:00 [facility] [place] Temperature Oral (F) 2018-09-06 10:17:00 97.6 F [facility] Respitory Rate 2018-09-06 10:17:00 [facility] [place] Heart Rate 2018-09-06 10:17:00 [facility] Systolic (mm Hg) 2018-09-06 10:17:00 Efraín rial [place] Diastolic (mm Hg) 2018-09-06 10:17:00 [facility] [place] Respitory Rate 2018-09-06 06:28:00 [facility] Temperature Oral (F) 2018-09-06 06:28:00 98.2 F [facility] [place] Heart Rate 2018-09-06 06:28:00 [facility] [place] Systolic (mm Hg) 2018-09-06 06:28:00 Efraín rial [place] Diastolic (mm Hg) 2018-09-06 06:28:00 [facility] Temperature Oral (F) 2018-09-06 06:16:00 98 F [facility] Height 2018-09-06 06:16:00 167.64 cm [facility] Heart Rate 2018-09-06 06:16:00 [facility] Respitory Rate 2018-09-06 06:16:00 [facility] Systolic (mm Hg) 2018-09-06 06:16:00 Efraín [facility] [place] Diastolic (mm Hg) 2018-09-06 06:16:00 [facility] [place] BMI Calculated 2018-09-06 06:16:00 [facility] [place] Weight 2018-09-06 06:16:00 [facility] Systolic (mm Hg) 2018-08-30 17:44:00 Efraín [facility] [place] Diastolic (mm Hg) 2018-08-30 17:44:00 [facility] Temperature Oral (F) 2018-08-30 17:44:00 98.0 F [facility] Respitory Rate 2018-08-30 17:44:00 [facility] [place] Heart Rate 2018-08-30 17:44:00 [facility] Heart Rate 2018-08-30 14:10:00 [facility] Respitory Rate 2018-08-30 14:10:00 [facility] [place] Systolic (mm Hg) 2018-08-30 14:10:00 [facility] Diastolic (mm Hg) 2018-08-30 14:10:00 [facility] Temperature Oral (F) 2018-08-30 14:10:00 98.2 F [facility] Respitory Rate 2018-08-30 10:04:00 [facility] Systolic (mm Hg) 2018-08-30 10:04:00 [facility] [place] Diastolic (mm Hg) 2018-08-30 10:04:00 [facility] [place] Heart Rate 2018-08-30 10:04:00 [facility] Temperature Oral (F) 2018-08-30 10:04:00 98.1 F [facility] Height 2018-08-24 22:13:00 167.64 cm [facility] Weight 2018-08-24 22:13:00 [facility] BMI Calculated 2018-08-24 22:13:00 [facility] BMI Calculated 2018-08-24 20:22:00 [facility] Weight 2018-08-24 20:22:00 [facility] Height 2018-08-24 20:22:00 165.1 cm [facility] Weight 2018-08-24 07:42:00 [facility] Temperature Oral (F) 2018-05-22 17:03:00 98.4 F [facility] Respitory Rate 2018-05-22 17:03:00 [facility] Heart Rate 2018-05-22 17:03:00 [facility] Systolic (mm Hg) 2018-05-22 17:03:00 [facility] Diastolic (mm Hg) 2018-05-22 17:03:00 [facility] Respitory Rate 2018-05-22 13:14:00 [facility] Heart Rate 2018-05-22 13:14:00 [facility] Temperature Oral (F) 2018-05-22 13:14:00 98.3 F [facility] Systolic (mm Hg) 2018-05-22 13:14:00 [facility] Diastolic (mm Hg) 2018-05-22 13:14:00 [facility] Systolic (mm Hg) 2018-05-22 11:16:00 [facility] Diastolic (mm Hg) 2018-05-22 11:16:00 [facility] Temperature Oral (F) 2018-05-22 11:16:00 98.2 F [facility] Heart Rate 2018-05-22 11:16:00 [facility] Respitory Rate 2018-05-22 11:16:00 [facility] Weight 2018-05-17 08:15:00 [facility] BMI Calculated 2018-05-17 08:15:00 [facility] Height 2018-05-17 08:15:00 167.64 cm [facility] Weight 2018-05-17 03:51:00 [facility] Temperature Oral (F) 2018-01-13 02:51:00 97.5 F [facility] Respitory Rate 2018-01-13 02:51:00 [facility] Systolic (mm Hg) 2018-01-13 02:51:00 [facility] Diastolic (mm Hg) 2018-01-13 02:51:00 [facility] Heart Rate 2018-01-13 02:51:00 [facility] Height 2018-01-12 21:15:00 167.64 cm [facility] BMI Calculated 2018-01-12 21:15:00 [facility] Weight 2018-01-12 21:15:00 [facility] Heart Rate 2018-01-12 21:15:00 [facility] Systolic (mm Hg) 2018-01-12 21:15:00 [facility] Diastolic (mm Hg) 2018-01-12 21:15:00 [facility] Temperature Oral (F) 2018-01-12 21:15:00 98.8 F [facility] Respitory Rate 2018-01-12 21:15:00 [facility] Heart Rate 2016-12-31 16:21:00 [facility] Systolic (mm Hg) 2016-12-31 16:21:00 [facility] Diastolic (mm Hg) 2016-12-31 16:21:00 [facility] Respitory Rate 2016-12-31 15:59:00 [facility] Heart Rate 2016-12-31 15:59:00 [facility] Temperature Oral (F) 2016-12-31 15:59:00 98.4 F [facility] Systolic (mm Hg) 2016-12-31 15:59:00 [facility] Diastolic (mm Hg) 2016-12-31 15:59:00 [facility] Systolic (mm Hg) 2016-12-31 11:56:00 [facility] Diastolic (mm Hg) 2016-12-31 11:56:00 [facility] Respitory Rate 2016-12-31 11:56:00 [facility] Temperature Oral (F) 2016-12-31 11:56:00 98.5 F [facility] Heart Rate 2016-12-31 11:56:00 [facility] Weight 2016-12-31 11:38:00 [facility] Respitory Rate 2016-12-31 11:03:00 [facility] Temperature Oral (F) 2016-12-31 11:03:00 98 F [facility] BMI Calculated 2016-12-31 04:03:00 [facility] Height 2016-12-31 04:03:00 167.64 cm [facility] Weight 2016-12-31 04:03:00 [facility] Systolic (mm Hg) 2016-12-26 00:49:00 [facility] Diastolic (mm Hg) 2016-12-26 00:49:00 [facility] Respitory Rate 2016-12-26 00:49:00 [facility] Heart Rate 2016-12-26 00:49:00 [facility] Temperature Oral (F) 2016-12-26 00:49:00 98 F [facility] Systolic (mm Hg) 2016-12-26 00:01:00 [facility] Diastolic (mm Hg) 2016-12-26 00:01:00 [facility] Respitory Rate 2016-12-26 00:01:00 [facility] Heart Rate 2016-12-26 00:01:00 [facility] Temperature Oral (F) 2016-12-26 00:01:00 98 F [facility] Weight 2016-12-25 23:55:00 [facility] BMI Calculated 2016-12-25 23:55:00 [facility] Height 2016-12-25 23:55:00 167.64 cm [facility] Systolic (mm Hg) 2016-12-25 22:45:00 [facility] Diastolic (mm Hg) 2016-12-25 22:45:00 [facility] Respitory Rate 2016-12-25 22:45:00 [facility] Height 2016-12-25 19:18:00 167.64 cm [facility] BMI Calculated 2016-12-25 19:18:00 [facility] Weight 2016-12-25 19:18:00 [facility] Temperature Oral (F) 2016-12-25 19:18:00 98.2 F [facility] Heart Rate 2016-12-25 19:18:00 [facility] Systolic (mm Hg) 2016-07-20 04:46:00 [facility] Diastolic (mm Hg) 2016-07-20 04:46:00 [facility] Heart Rate 2016-07-20 04:46:00 [facility] Respitory Rate 2016-07-20 04:46:00 [facility] Temperature Oral (F) 2016-07-20 04:46:00 98.3 F [facility] Weight 2016-07-20 01:24:00 [facility] BMI Calculated 2016-07-20 01:24:00 [facility] Height 2016-07-20 01:24:00 167.64 cm [facility] Temperature Oral (F) 2016-07-20 01:24:00 98.4 F [facility] Systolic (mm Hg) 2016-07-20 01:24:00 [facility] [place] Diastolic (mm Hg) 2016-07-20 01:24:00 [facility] Heart Rate 2016-07-20 01:24:00 [facility] Respitory Rate 2016-07-20 01:24:00 [facility] Systolic (mm Hg) 2016-04-23 08:04:00 [facility] Diastolic (mm Hg) 2016-04-23 08:04:00 [facility] Respitory Rate 2016-04-23 08:04:00 [facility] Heart Rate 2016-04-23 08:04:00 [facility] Temperature Oral (F) 2016-04-23 08:04:00 97.6 F [facility] Height 2016-04-23 05:01:00 157.48 cm [facility] Systolic (mm Hg) 2016-04-23 05:01:00 [facility] Diastolic (mm Hg) 2016-04-23 05:01:00 [facility] Heart Rate 2016-04-23 05:01:00 [facility] Respitory Rate 2016-04-23 05:01:00 [facility] Temperature Oral (F) 2016-04-23 05:01:00 98.2 F [facility] Weight 2016-04-23 05:01:00 [facility] BMI Calculated 2016-04-23 05:01:00 [facility] Systolic (mm Hg) 2016-04-16 08:51:00 [facility] Diastolic (mm Hg) 2016-04-16 08:51:00 [facility] Respitory Rate 2016-04-16 08:51:00 [facility] Heart Rate 2016-04-16 08:51:00 [facility] Temperature Oral (F) 2016-04-16 08:51:00 98.2 F [facility] Respitory Rate 2016-04-16 04:25:00 [facility] Heart Rate 2016-04-16 04:25:00 [facility] Systolic (mm Hg) 2016-04-16 04:25:00 [facility] Diastolic (mm Hg) 2016-04-16 04:25:00 [facility] Height 2016-04-16 04:25:00 167.64 cm [facility] Temperature Oral (F) 2016-04-16 04:25:00 98.7 F [facility] BMI Calculated 2016-04-16 04:25:00 [facility] Weight 2016-04-16 04:25:00 [facility] Systolic (mm Hg) 2016-04-14 08:30:00 [facility] Diastolic (mm Hg) 2016-04-14 08:30:00 [facility] Heart Rate 2016-04-14 08:30:00 [facility] Temperature Oral (F) 2016-04-14 08:30:00 98 F [facility] Systolic (mm Hg) 2016-04-14 07:30:00 [facility] Diastolic (mm Hg) 2016-04-14 07:30:00 [facility] Respitory Rate 2016-04-14 07:30:00 [facility] Heart Rate 2016-04-14 07:30:00 [facility] Temperature Oral (F) 2016-04-14 07:30:00 98 F [facility] Systolic (mm Hg) 2016-04-14 06:30:00 [facility] Diastolic (mm Hg) 2016-04-14 06:30:00 [facility] Respitory Rate 2016-04-14 06:30:00 [facility] Heart Rate 2016-04-14 06:30:00 [facility] Temperature Oral (F) 2016-04-14 06:30:00 98.2 F [facility] BMI Calculated 2016-04-14 05:39:00 [facility] Weight 2016-04-14 05:39:00 [facility] Height 2016-04-14 05:39:00 167.64 cm [facility] Respitory Rate 2016-04-14 05:39:00 [facility] Systolic (mm Hg) 2016-02-24 07:38:00 [facility] Diastolic (mm Hg) 2016-02-24 07:38:00 [facility] Heart Rate 2016-02-24 07:38:00 [facility] Respitory Rate 2016-02-24 07:38:00 [facility] Heart Rate 2016-02-24 03:24:00 [facility] Respitory Rate 2016-02-24 03:24:00 [facility] BMI Calculated 2016-02-24 03:24:00 [facility] Height 2016-02-24 03:24:00 167.64 cm [facility] Weight 2016-02-24 03:24:00 [facility] Temperature Oral (F) 2016-02-24 03:24:00 98.1 F [facility] Systolic (mm Hg) 2016-02-24 03:24:00 [facility] Diastolic (mm Hg) 2016-02-24 03:24:00 [facility] Temperature Oral (F) 2016-01-17 05:32:00 98.1 F [facility] Heart Rate 2016-01-17 05:32:00 [facility] Respitory Rate 2016-01-17 05:32:00 [facility] Systolic (mm Hg) 2016-01-17 05:32:00 [facility] [place] Diastolic (mm Hg) 2016-01-17 05:32:00 [facility] Heart Rate 2016-01-17 04:06:00 [facility] Systolic (mm Hg) 2016-01-17 04:06:00 [facility] [place] Diastolic (mm Hg) 2016-01-17 04:06:00 [facility] Temperature Oral (F) 2016-01-17 04:06:00 98.0 F [facility] Respitory Rate 2016-01-17 04:06:00 [facility] Heart Rate 2016-01-17 01:48:00 [facility] Respitory Rate 2016-01-17 01:48:00 [facility] Systolic (mm Hg) 2016-01-17 01:48:00 [facility] [place] Diastolic (mm Hg) 2016-01-17 01:48:00 [facility] Weight 2016-01-17 01:48:00 [facility] Height 2016-01-17 01:48:00 167.64 cm [facility] BMI Calculated 2016-01-17 01:48:00 [facility] Temperature Oral (F) 2016-01-17 01:48:00 98 F [facility] Respitory Rate 2015-10-13 11:44:00 [facility] Heart Rate 2015-10-13 11:44:00 [facility] Temperature Oral (F) 2015-10-13 11:44:00 98.2 F [facility] Systolic (mm Hg) 2015-10-13 11:44:00 [facility] Diastolic (mm Hg) 2015-10-13 11:44:00 [facility] Height 2015-10-13 05:34:00 167.64 cm [facility] BMI Calculated 2015-10-13 05:34:00 [facility] Weight 2015-10-13 05:34:00 [facility] Heart Rate 2015-10-13 05:34:00 [facility] Respitory Rate 2015-10-13 05:34:00 [facility] Temperature Oral (F) 2015-10-13 05:34:00 98.2 F [facility] Systolic (mm Hg) 2015-10-13 05:34:00 [facility] Diastolic (mm Hg) 2015-10-13 05:34:00 [facility] Respitory Rate 2015-07-04 08:49:00 [facility] Heart Rate 2015-07-04 08:49:00 [facility] Temperature Oral (F) 2015-07-04 08:49:00 98.0 F [facility] Systolic (mm Hg) 2015-07-04 08:49:00 [facility] Diastolic (mm Hg) 2015-07-04 08:49:00 [facility] Respitory Rate 2015-07-04 07:00:00 [facility] Heart Rate 2015-07-04 07:00:00 [facility] Temperature Oral (F) 2015-07-04 07:00:00 98.4 F [facility] Systolic (mm Hg) 2015-07-04 07:00:00 [facility] Diastolic (mm Hg) 2015-07-04 07:00:00 [facility] Heart Rate 2015-07-04 05:28:00 [facility] Respitory Rate 2015-07-04 05:28:00 [facility] Temperature Oral (F) 2015-07-04 05:28:00 98.2 F [facility] Systolic (mm Hg) 2015-07-04 05:28:00 [facility] Diastolic (mm Hg) 2015-07-04 05:28:00 [facility] Weight 2015-07-04 05:28:00 [facility] Systolic (mm Hg) 2015-05-17 11:05:00 [facility] Diastolic (mm Hg) 2015-05-17 11:05:00 [facility] Temperature Oral (F) 2015-05-17 11:05:00 98.2 F [facility] Heart Rate 2015-05-17 11:05:00 [facility] Heart Rate 2015-05-17 10:05:00 [facility] Systolic (mm Hg) 2015-05-17 10:05:00 [facility] [place] Diastolic (mm Hg) 2015-05-17 10:05:00 [facility] Systolic (mm Hg) 2015-05-17 09:05:00 [facility] Diastolic (mm Hg) 2015-05-17 09:05:00 [facility] Heart Rate 2015-05-17 09:05:00 [facility] Respitory Rate 2015-05-17 08:05:00 [facility] Temperature Oral (F) 2015-05-17 08:05:00 99.6 F [facility] Temperature Oral (F) 2015-05-17 06:17:00 99.6 F [facility] Height 2015-05-17 04:59:00 167.64 cm [facility] BMI Calculated 2015-05-17 04:59:00 [facility] Weight 2015-05-17 04:59:00 [facility] Respitory Rate 2015-05-17 04:59:00 [facility] Temperature Oral (F) 2015-05-15 13:01:00 98.9 F [facility] Heart Rate 2015-05-15 13:01:00 [facility] Respitory Rate 2015-05-15 13:01:00 [facility] Systolic (mm Hg) 2015-05-15 13:01:00 [facility] Diastolic (mm Hg) 2015-05-15 13:01:00 [facility] Heart Rate 2015-05-15 07:46:00 [facility] Respitory Rate 2015-05-15 07:46:00 [facility] Systolic (mm Hg) 2015-05-15 07:46:00 [facility] Diastolic (mm Hg) 2015-05-15 07:46:00 [facility] Temperature Oral (F) 2015-05-15 07:46:00 98.1 F [facility] Height 2015-05-15 03:56:00 167.64 cm [facility] BMI Calculated 2015-05-15 03:56:00 [facility] Weight 2015-05-15 03:56:00 [facility] Temperature Oral (F) 2015-05-15 03:56:00 98.3 F [facility] Systolic (mm Hg) 2015-05-15 03:56:00 [facility] Diastolic (mm Hg) 2015-05-15 03:56:00 [facility] Respitory Rate 2015-05-15 03:56:00 [facility] Heart Rate 2015-05-15 03:56:00 [facility] Respitory Rate 2015-02-14 09:30:00 [facility] Systolic (mm Hg) 2015-02-14 09:30:00 [facility] Diastolic (mm Hg) 2015-02-14 09:30:00 [facility] Heart Rate 2015-02-14 09:30:00 [facility] Heart Rate 2015-02-14 04:52:00 [facility] Temperature Oral (F) 2015-02-14 04:52:00 98.3 F [facility] Respitory Rate 2015-02-14 04:52:00 [facility] Systolic (mm Hg) 2015-02-14 04:52:00 [facility] Diastolic (mm Hg) 2015-02-14 04:52:00 [facility] BMI Calculated 2015-02-14 01:00:00 [facility] Weight 2015-02-14 01:00:00 [facility] Temperature Oral (F) 2015-02-14 01:00:00 98.6 F [facility] Height 2015-02-14 01:00:00 167.64 cm [facility] Heart Rate 2015-02-14 01:00:00 [facility] Respitory Rate 2015-02-14 01:00:00 [facility] Systolic (mm Hg) 2015-02-14 01:00:00 [facility] Diastolic (mm Hg) 2015-02-14 01:00:00 [facility] Diastolic (mm Hg) 2014-09-30 07:00:00 [facility] Systolic (mm Hg) 2014-09-30 07:00:00 [facility] Temperature Oral (F) 2014-09-30 07:00:00 98.3 F [facility] Respitory Rate 2014-09-30 07:00:00 [facility] Heart Rate 2014-09-30 07:00:00 [facility] Temperature Oral (F) 2014-09-30 04:47:00 98.2 F [facility] Diastolic (mm Hg) 2014-09-30 04:47:00 [facility] Heart Rate 2014-09-30 04:47:00 [facility] Systolic (mm Hg) 2014-09-30 04:47:00 [facility] Respitory Rate 2014-09-30 04:47:00 [facility] Respitory Rate 2014-09-30 03:54:00 [facility] Heart Rate 2014-09-30 03:54:00 [facility] Diastolic (mm Hg) 2014-09-30 03:54:00 [facility] Temperature Oral (F) 2014-09-30 03:54:00 98.4 F [facility] Height 2014-09-30 03:54:00 167.64 cm [facility] Systolic (mm Hg) 2014-09-30 03:54:00 [facility] BMI Calculated 2014-09-30 03:54:00 [facility] Weight 2014-09-30 03:54:00 [facility] Procedures Procedure Date / Time Performed Performing Clinician Sour e DRAINAGE OF SKIN ABSCESS 2019-06-05 00:00:00 BRODY BELCHER [facility] Incision AND drainage 2018-05-17 05:00:00 [facility] Chole[facility] Encounters Start Date/Time End Date/Time Encounter Type Admission Type Attendi [facility] Care Department Encounter ID Source 2020-03-23 06:02:00 Inpatient U [facility] MED [id number] [facility] 2020-04-04 00:00:00 2020-04-04 00:00:00 Telephone Grey Schultz [facility] [id number] 2020-03-23 06:02:00 2020-03-26 15:12:00 Outpatient Zoya Carbajal chi [facility] [id number] 2020-02-23 07:36:59 2020-02-23 08:06:59 Office Visit Aaliyah Stewart [facility] [id number] 2020-02-06 00:00:00 2020-02-06 00:00:00 Patient Secure Grey Ribeiro [facility] [id number] 2019-11-02 03:06:00 2019-11-04 13:40:00 Outpatient Hardik Coats [facility]SE [facility]SE [id number] 2019-11-02 02:06:00 2019-11-02 23:59:[address] charisma Frias [facility]SE [facility]SE [id number] 2019-11-02 03:06:00 2019-11-02 03:06:00 Outpatient [facility]SE MED [id number] [facility] 2019-11-02 02:06:00 2019-11-02 02:06:00 Outpatient MHSE MHSE [id number] [facility] 2019-07-29 18:32:00 2019-07-29 20:13:00 Departed Emergency Room 1 MILLER GLYNN [facility] [id number] [facility] 2019-06-05 14:58:00 2019-06-05 16:13:00 Departed Emergency Room [facility] [id number] [facility] 2019-05-24 23:55:11 2019-05-25 04:36:00 Outpatient Byron Hogan MHSE MHSE [id number] 2019-05-24 23:55:00 2019-05-24 23:55:00 Emergency E MHSE MHSE [id number] [facility] 2019-05-16 13:43:54 2019-05-16 17:46:00 Outpatient Eliot Wakefield [facility]PL MHPL [id number] 2019-05-16 13:43:00 2019-05-16 13:43:00 Emergency E [facility]BL [facility]BL [id number] [facility] 2019-04-03 15:26:24 2019-04-03 20:07:00 Outpatient Eliot Wakefield [facility]PL [facility]PL [id number] 2019-04-03 15:26:00 2019-04-03 15:26:00 Emergency E [facility]BL [facility]BL [id number] [facility] 2019-03-23 11:40:00 2019-03-24 20:01:00 Outpatient Jose L Cunningham [facility]PL [facility]PL [id number] 2019-03-23 14:49:00 2019-03-23 14:49:00 Outpatient E [facility] MED [id number] [facility] 2019-02-28 19:39:04 2019-03-07 20:00:00 Outpatient Carla Campos on MHPL MHPL [id number] 2019-03-02 11:50:00 2019-02-28 23:03:00 Inpatient E [facility] MED [id number] [facility] 2019-01-27 01:47:07 2019-01-31 16:50:00 Outpatient Cindy Jennifer nn MHSE MHSE [id number] 2019-01-27 17:00:00 2019-01-27 04:15:00 Inpatient E MHSE MED [id number] [facility] 2018-12-12 20:11:18 2018-12-12 22:30:00 Outpatient Herb Martin MHPL [facility]PL [id number] 2018-12-12 20:11:00 2018-12-12 20:11:00 Emergency E [facility]BL [facility]BL [id number] [facility] 2018-12-03 15:44:00 2018-12-09 18:39:00 Outpatient A Terrence ely MHPL MHPL [id number] 2018-12-03 15:44:00 2018-12-09 18:39:00 Outpatient A Terrence ely MHPL MHPL [id number] 2018-12-05 11:17:00 2018-12-03 20:46:00 Inpatient E [facility]BL MED [id number] [facility] 2018-10-11 05:02:00 2018-10-12 15:33:00 Outpatient Lexx Sauer MHSE MHSE [id number] 2018-10-10 18:53:00 2018-10-11 04:00:00 Outpatient F Temitope villalobos MHPL MHPL [id number] 2018-09-06 00:08:00 2018-09-06 04:19:00 Outpatient F Ruth apple MHSE MHSE [id number] 2018-09-06 00:08:00 2018-09-06 04:19:00 Outpatient Ruth Boykin MHSE MHSE [id number] 2018-08-24 01:36:00 2018-08-30 14:40:00 Outpatient Oralia Hull i MHPL [facility]PL [id number] 2018-06-24 13:37:00 2018-06-24 23:59:00 Outpatient Tracie Stahl MHOIP MHOIP [id number] 2018-05-16 22:31:00 2018-05-22 13:15:00 Outpatient Oralia Hull i [facility]PL MHPL [id number] 2018-04-30 13:40:00 2018-04-30 16:17:00 Departed Emergency Room [facility] [id number] [facility] 2018-02-07 14:46:00 2018-02-07 19:52:00 Departed Emergency Room 1 FELICIA DELGADO [facility] [id number] [facility] 2018-02-04 22:15:00 2018-02-05 02:06:00 Departed Emergency Room [facility] [id number] [facility] 2018-01-12 16:14:00 2018-01-12 22:22:00 Outpatient Betty Navarro MHSE MHSE [id number] 2016-12-30 22:54:00 2016-12-31 13:53:00 Outpatient Alec Vicente MHSE MHSE [id number] 2016-12-25 14:16:00 2016-12-25 20:08:00 Outpatient Daniele Weaver MHSE MHSE [id number] 2016-07-19 19:18:00 2016-07-19 22:50:00 Outpatient Jama Khalil MHSE MHSE [id number] 2016-04-22 23:58:00 2016-04-23 03:06:00 Outpatient Rosalind Andrade MHSE MHSE [id number] 2016-04-15 23:24:00 2016-04-16 03:54:00 Outpatient Jeannie Blair MHSE MHSE [id number] 2016-04-14 00:33:00 2016-04-14 03:59:00 Outpatient Cristino Porter MHSE MHSE [id number] 2016-02-23 22:20:00 2016-02-24 02:54:00 Outpatient Wilmar Jackson MHSE MHSE [id number] 2016-01-16 20:36:00 2016-01-17 00:34:00 Outpatient Salvador Rodríguez MHPL MHPL [id number] 2015-10-12 23:21:00 2015-10-13 05:47:00 Outpatient Rosy Diaz MHSE MHSE [id number] 2015-07-03 23:24:00 2015-07-04 03:54:00 Outpatient Michelle Finley MHSE MHSE [id number] 2015-05-16 23:53:00 2015-05-17 07:05:00 Outpatient Rosy Diaz MHSE MHSE [id number] 2015-05-14 22:48:00 2015-05-15 08:01:00 Outpatient Temitope Cade Jose MHSE MHSE [id number] 2015-02-13 19:35:00 2015-02-14 05:39:00 Outpatient Zoltan Prince MHIE MHIE [id number] 2014-09-29 21:23:00 2014-09-30 02:31:00 Outpatient Mario Gu MHIE MHIE [id number] Results Test Description Test Time Test Comments Results Result Comments Source US PELVIS COMPLETE NON OB 2020-04-12 23:51:00 [place] [address] Patient Name: COLLEEN JOHNSON MR #: [id number] : 1985 Age/Sex: 34/F Req #: [id number] Adm Physician: Ordered by: ZOLTAN MCKNIGHT MD Report #: [id number] Location: ER Room/Bed: Procedure: [id number] US/US PELVIS COMPLETE NON OB Exam Date: 04/12/20 Exam Time: 2305 REPORT STATUS: Signed EXAM: Transabdominal and Transvaginal Pelvic Ultrasound INDICATION: EVAL FOR RIGHT OVARIAN TORSION COMPARISON: None TECHNIQUE: Grayscale transverse and sagittal transabdominal and transvaginal images were obtained of the pelvis. Transvaginal imaging was medically necessary to better evaluate the endometrium and the adnexa. Doppler waveforms were performed of the right ovary to evaluate arterial and venous flow. CLINICAL HISTORY: 34 year old A0; last menstrual period: 04/05/2020. FINDINGS: Uterus Orientation: Normal Size: 6.4 x 3.4 x 4.0 cm, Normal Mass: None Cervix: Nabothian cys ts Endometrium: Thickness: 0.7 cm, Normal. Appearance: Homogeneous echotexture without focal thickening. Right ovary: Size: 2.0 x 1.4 x 1.7 cm Mass/Cyst: None Left ovary: Nonvisualized Adnexa: Normal Cul-de-sac: No free fluid IMPRESSION: 1. Normal-appearing right ovary with arterial and venous waveforms. No evidence of right ovarian torsion. 2. The left ovary was not visualized. Signed by: Owen Yoo MD on 04/12/2020 11:55 PM Dictated By: OWEN YOO MD [id number] Transcribed By: LILIA on 04/12/20 [id number] COPY TO: ZOLTAN MCKNIGHT MD CT ABDOMEN/PELVIS W 2020-04-12 21:42:00 [place] [address] Patient Name: COLLEEN JOHNSON MR #: [id number] : 1985 Age/Sex: 34/F [facility] #: [id number] [facility] Physician: Ordered by: ZOLTAN MCKNIGHT MD Report #: [id number] Location: ER Room/Bed: Procedure: [id number] CT/CT ABDOMEN/PELVIS W Exam Date: 04/12/20 Exam Time: 2100 REPORT STATUS: Signed EXAM: CT Abdomen and Pelvis WITH contrast INDICATION: rlq pain COMPARISON: CT dated 02/07/2018.. TECHNIQUE: Abdomen and pelvis were scanned utilizing a multidetector helical scanner from the lung base to the pubic symphysis after administration of IV contrast. Coronal and sagittal reformations were obtained. Routine protocol was performed. Scan was performed when during portal venous phase. IV CONTRAST: 100 mL of Isovue 370 ORAL CONTRAST: None COMPLICATIONS: None RADIATION DOSE: Total DLP: 956.24 mGy*cm Estimated effective dose: (DLP x 0.015 x size factor) mSv CTDIvol has been reviewed. It is below the limits set by the Radiation Protocol Committee (RPC). Dose modulation, iterative reconstruction, and/or weight based adjustment of the mA/kV was utilized to reduce the radiation dose to as low as reasonably achievable. FINDINGS: LINES and TUBES: None. LOWER THORAX: Unremarkable HEPATOBILIARY: No focal hepatic lesions. No biliary ductal dilation. GALLBLADDER: There are cholecystectomy clips. SPLEEN: No splenomegaly. PANCREAS: No focal masses or ductal dilatation. ADRENALS: No adrenal nodules KIDNEYS/URETERS: Kidneys enhance symmetrically. No hydronephrosis. No cystic or solid mass lesions. No stones. GI TRACT: No abnormal distention, wall thickening, or evidence of bowel obstruction. Appendix is normal. PELVIC ORGANS/BLADDER: Unremarkable. LYMPH NODES: No lymphadenopathy. VESSELS: Unremarkable. PERITONEUM / RETROPERITONEUM: No free air or fluid. BONES: There are degenerative changes in the spine. SOFT TISSUES: There is an unchanged fat containing umbilical hernia. IMPRESSION: No acute abdominopelvic process. No evidence of acute appendicitis. Signed by: Owen Yoo MD on 04/12/2020 9:55 PM Dictated By: OWEN YOO MD 54 Transcribed By: LILIA on 04/12/202154 COPY TO: ZOLTAN MCKNIGHT MD TOXICOLOGY 2020-03-26 02:10:00 11.7 Michael melgar Charles TOXICOLOGY 2020-03-26 02:10:00 Test Item Vanco Tr TND (test code = Vanco Tr TND) 2200 1 [facility] LLVNY8160-28-42 17:36:15517Auxpyabb HermannCHEM PANEL 2020-03-25 17:36:0010[facility] BJCKX8361-98-27 17:36:000.64[facility]annCHE[facility] TTDGP7586-10-64 17:36:55922Ccsmpkez HermannCHEM BXHLL6984-21-57 17:36:004.1[facility]annCHE[facility] MGCNG7180-90-60 17:36:79859Ppxqvbqb HermannCHEM BYVHJ6698-30-97 17:36:0030[facility]annCHE[facility] CIKYU5453-57-45 17:36:008.4 [facility] OVVEQ1332-18-62 17:36:007.1[facility]annCHEM PANEL 2020-03-25 17:36:18591Zqpuikch NbqhgzwTQSLRRFTHS2936-41-37 14:50:0021.4[facility] IkpbswdRCXFLJTPOC1631-56-03 14:50:00* Test Item Value Reference Range Interpretation Comments Vanco Tr TND (test code = Vanco Tr TND) 1000 1 [facility] LgvvnhcYYPMPOMMPO9881-97-65 14:36:0013.7[facility] HermannTOXICOLOGY 2020-03-24 14:36:00* Test Item Value Reference Range Interpretation Comments Vanco Tr TND (test code = Vanco Tr TND) 1100 1 [facility] HermannTRIMETHOPRIM+SULFAMETHOXAZOLE:SUSC:PT:ISOLATE:ORDQN:MONISHA 2020-03-23 12:34:00Staphylococcus aureusMemorial HermannCHEM BWEPU6386-96-21 12:20:0092[facility]annCHE[facility] YURQM3012-81-81 12:20:0011[facility]annCHE[facility] JPMAQ4156-13-48 12:20:000.64[facility]annCHE[facility] SRCVL4508-12-62 12:20:31241 [facility] NMWUY2868-39-22 12:20:003.7[facility]annCHEM PANEL 2020-03-23 12:20:45253Gujqpknf HermannCHEM UHKKV9889-56-44 12:20:0028[facility]annCHE[facility] KXCUM0772-99-58 12:20:008.2[facility]annCHE[facility] TVNJS5679-99-96 12:20:002.8[facility]annCHE[facility] BIBUT7784-95-79 12:20:0016[facility]annCHE[facility] NOTYW5729-63-90 12:20:0011[facility]CHE[facility] JLQCT7825-74-25 12:20:007.7 [facility]annCHE[facility] ZACSO1027-61-09 12:20:00* Test Item Value Reference Range Interpretation Comments B/C Ratio (test code = B/C Ratio) 17 1 6-25 [facility] FQWDY5514-67-19 12:20:81177Aqkapuoq HermannCHEM PANEL 2020-03-23 12:20:006.7[facility]annCHE[facility] VNBDO5482-23-44 12:20:0075[facility]CHE[facility] IHHBX8192-98-67 12:20:000.5[facility]annCHE[facility] UXAQK7258-61-54 12:20:003.9[facility]annCHEM UNNFP2717-61-34 12:20:00* Test Item Value Reference Range Interpretation Comments A/G Ratio (test code = A/G Ratio) 0.7 1 0.7-1.6 [facility] IplceabJKXZAZDWRA6495-23-59 12:20:0010.2[facility]annHEMATOLOGY 2020-03-23 12:20:004.12[facility] PtswfpbGDTDYNKNUB6276-16-81 12:20:0012.2[facility] SdgndjwNSVYNCQACC0389-39-34 12:20:0036.5[facility] ZosfyozZXDEWBDJKS3389-38-45 12:20:0088.6[facility] PcpzijzZWVAZIHQNY0097-44-05 12:20:00* Test Item Value Reference Range Interpretation Comments MCH (test code = MCH) 29.5 pg 27.0-31.0 [facility] PikjhekGMYYSMRBSS9323-08-87 12:20:0033.3[facility] HermannHEMATOLOGY 2020-03-23 12:20:0013.9[facility] QfkpoduPHHVLOPLYI7790-85-85 12:20:88858Ywwiyskk GryuneyTLNLLGHEIX9173-19-42 12:20:008.3[facility] SwalrbqZBVFOKRHTP8255-67-92 12:20:0063.8[facility] EagdyzoHEMSZOUCKS7705-91-30 12:20:0021.4[facility] [place] HLFNILGUPW3917-21-62 12:20:009.2[facility] PlrfvjnLAEKIXGJMF0025-21-16 12:20:004.6 [facility] FglxsgcOXVWGGJLBR4320-78-74 12:20:001.0[facility]annHEMATOLOGY 2020-03-23 12:20:006.5[facility] HezblhlZEFVPZCQCN7245-09-65 12:20:002.2[facility] BymnhpaTIIZSANMFY8180-76-74 12:20:000.9[facility] OisgcytAYNUJOSFCL9169-61-36 12:20:000.5[facility] NbvltduHEZGUJUYCP3744-20-77 12:20:000.1[facility] URINALYSIS VDTLGAXR1398-90-44 09:07:00* Test Item Value Reference Range Interpretation [...] HPF NONE Urine Source? Clean CatchUR HCG FOYS4697-95-50 09:07:00* Test Item Value Reference Range Interpretation Comments UR HCG QUAL (test code = HCGQLU) NEGATIVE This HCGQL test is NOT applicable for MALE patients.Check with nurse about probable order error.If Tumor Marker Test needed, nurse should order test "HCGTU"(Test #550.86521) Urine Source? Clean CatchDRUGS OF ABUSE SCREEN AN7835-00-53 09:07:00* Test Item Value Reference Range Interpretation [...] NEGATIVE NEGATIV E Urine Source? Clean CatchURINALYSIS KBNPTSOJ2833-90-89 09:00:00* Test Item Value Reference Range Interpretation [...] HPF NONE Urine Source? Clean CatchUR HCG ZUMK3588-25-36 09:00:00* Test Item Value Reference Range Interpretation Comments UR HCG QUAL (test code = HCGQLU) NEGATIVE This HCGQL test is NOT applicable for MALE patients.Check with nurse about probable order error.If Tumor Marker Test needed, nurse should order test "HCGTU"(Test #550.98574) Urine Source? Clean CatchDRUGS OF ABUSE SCREEN GW0435-97-97 09:00:00* Test Item Value Reference Range Interpretation Comments URN COCAINE (test code = COCAURN) NEGATIVE URN CANNABINOIDS (test code = CANNABURN) NEGATIVE URN AMPHETAMINE (test code = AMPHETURN) NEGATIVE URN BARBITURATE (test code = BARBITURN) NEGATIVE URN BENZODIAZEPINE (test code = BENZOURN) NEGATIVE URN OPIATES (test code = OPIATURN) NEGATIVE URN PHENCYCLIDINE (PCP) (test code = PHENCURN) NEGATIV E Urine Source? Clean CatchURINALYSIS NWIUGUFW1199-78-90 08:55:00* Test Item Value Reference Range Interpretation [...] HPF NONE Urine Source? Clean CatchUR HCG GBHN6441-51-63 08:55:00* Test Item Value Reference Range Interpretation Comments UR HCG QUAL (test code = HCGQLU) NEGATIVE This HCGQL test is NOT applicable for MALE patients.Check with nurse about probable order error.If Tumor Marker Test needed, nurse should order test "HCGTU"(Test #550.58990) Urine Source? Clean CatchDRUGS OF ABUSE SCREEN [id number] 08:55:00* Test Item Value Reference Range Interpretation Comments URN COCAINE (test code = COCAURN) NEGATIVE URN CANNABINOIDS (test code = CANNABURN) NEGATIVE URN AMPHETAMINE (test code = AMPHETURN) NEGATIVE URN BARBITURATE (test code = BARBITURN) NEGATIVE URN BENZODIAZEPINE (test code = BENZOURN) NEGATIVE URN OPIATES (test code = OPIATURN) NEGATIVE URN PHENCYCLIDINE (PCP) (test code = PHENCURN) NEGATIV E Urine Source? Clean CatchURINALYSIS HLEQHQZI0254-08-46 08:53:00* Test Item Value Reference Range Interpretation [...] HPF NONE Urine Source? Clean CatchUR HCG BLZC3199-74-25 08:53:00* Test Item Value Reference Range Interpretation Comments UR HCG QUAL (test code = HCGQLU) Urine Source? Clean CatchDRUGS OF ABUSE SCREEN FM2884-15-07 08:53:00* Test Item Value Reference Range Interpretation Comments URN COCAINE (test code = COCAURN) NEGATIVE URN CANNABINOIDS (test code = CANNABURN) NEGATIVE URN AMPHETAMINE (test code = AMPHETURN) NEGATIVE URN BARBITURATE (test code = BARBITURN) NEGATIVE URN BENZODIAZEPINE (test code = BENZOURN) NEGATIVE URN OPIATES (test code = OPIATURN) NEGATIVE URN PHENCYCLIDINE (PCP) (test code = PHENCURN) NEGATIV E Urine Source? Clean SnwwpEXXXCOMXTZ5337-83-60 14:27:0014.1[facility]annCHE[facility] HQLTP0675-10-09 10:40:0099[facility]annCHE[facility] BNTNQ9507-71-20 10:40:008[facility]annCHE[facility] OGHKE8220-89-97 10:40:000.59[facility]annCHEM CSEBO9899-54-24 10:40:17130Ewpncnau HermannCHEM ERUIR1871-25-83 10:40:004.0[facility]annCHE[facility] KKVRL3668-05-28 10:40:75798Kydisfsz HermannCHEM TGFBL2198-50-13 10:40:0025 [facility] MKRSJ8163-78-52 10:40:008.5[facility]annCHEM PANEL 2019-11-03 10:40:006.4[facility]annCHEM JANGE4335-25-67 10:40:002.8[facility]annCHEM YHKCJ7114-01-51 10:40:0051[facility]annCHE[facility] ZYVEG1082-70-82 10:40:0041[facility]annCHE[facility] MMLRU9020-59-06 10:40:0084[facility]annCHEM JHDGC3623-48-31 10:40:000.4[facility]annCHEM LJYSA5423-59-08 10:40:008.0 [facility]CHE[facility] EBLJW8768-81-78 10:40:00* Test Item Value Reference Range Interpretation Comments B/C Ratio (test code = B/C Ratio) 14 1 6-25 [facility] DZTFQ5986-37-25 10:40:003.6[facility]annCHEM PANEL 2019-11-03 10:40:00* Test Item Value Reference Range Interpretation Comments A/G Ratio (test code = A/G Ratio) 0.8 1 0.7-1.6 [facility] DNOBT5714-35-16 10:40:81296Arymgzdy HermannHEMATOLOGY 2019-11-03 10:40:0065.6[facility] PkgcndcMGCGVAFDWZ5968-15-06 10:40:0020.6[facility] NahejtcEJDSHRQYQQ2548-96-73 10:40:008.8[facility] GjadhpvOZZEIGDTXL7078-32-98 10:40:004.2[facility] RalfbdxFDKQYXEBYI1291-34-56 10:40:000.8[facility] ZKELYYDEFF3938-03-70 10:40:006.0[facility] GlfdbfzKTJFAAQQUH1955-95-85 10:40:001.9 [facility] BppahwpTHLZIEGJDM9936-97-24 10:40:000.8[facility] HermannHEMATOLOGY 2019-11-03 10:40:000.4[facility] CxfbdvpIQJXXKPREI5706-39-33 10:40:000.1[facility] XpznlnhXWAAMRAGOY0873-68-25 10:40:009.1[facility] RaczpguRZEFCGPJGF9903-91-89 10:40:004.27[facility] BhjjkmmIRFQNNTANO8690-13-51 10:40:0012.4[facility] [place] ZFFSXDUOVN7751-54-89 10:40:0038.1[facility] RowqmlqRLQZHMXNYB1469-53-11 10:40:00 89.2[facility] QigckzrHYVRDVNIBJ6140-48-76 10:40:00* Test Item Value Reference Range Interpretation Comments MCH (test code = MCH) 29.0 pg 27.0-31.0 [facility] HnnbknqIFDXYXXSBU5279-60-23 10:40:0032.5[facility] HermannHEMATOLOGY 2019-11-03 10:40:0013.1[facility] PdyrszeLLLCEGEYEX7792-62-75 10:40:43248Qnhbkylx KxoxrmlGBXQYBKFRB6781-32-03 10:40:008.9[facility] HermannSPECIAL CHEMISTRY 2019-11-03 10:40:005.3[facility]annCHEM DLVDQ5808-70-57 10:09:0096[facility]annCHEM BGEFW6186-27-45 10:09:009[facility]annCHEM UCTEM1961-50-12 10:09:000.70[facility]annCHEM WELBE2095-91-46 10:09:77108Hkjcztud HermannCHEM LGWWU9794-77-29 10:09:004.0[facility]annCHEM XQSGU1876-10-50 10:09:11400 [facility]CHE[facility] LFPVN3353-67-29 10:09:0026[facility]annCHEM PANEL 2019-11-02 10:09:008.3[facility]annCHEM CENNX2877-75-16 10:09:009.0[facility]annCHEM YGQXW2185-23-23 10:09:35076Jkhtjhgi Charles- CTA VMVGN4188-88-14 20:38:00 Name: MODESTO JOHNSONA [facility] : 1985 Age/S: 33 / F [address] [facility] Unit #: [id number] Loc: [place] [address] Phys: Loreto Whiting MD Acct: [id number] Dis Date: Status: REG ER PHONE #: [phone] Exam Date: 08/16/20191954 FAX #: [phone] Reason: SOB, pleuritic CP, hemoptysis EXAMS: CPT CODE: [id number] CTA CHEST 08273 REASON FOR EXAM: SOB, pleuritic CP, hemoptysis [...] PAGE 1 Signed Report (CONTINUED) Name[facility] [place] [place] : 1985 Age/S: 33 / F [address] [place] [address] Unit #: [id number] Loc: [place] [address] Phys: Loreto Whiting MD Acct: [id number] Dis Date: Status: REG ER PHONE #: [phone] Exam Date: 08/16/20191954 FAX #: [phone] Reason: SOB, p leuritic CP, hemoptysis EXAMS: CPT CODE: [id number] CTA CHEST 79539 <Continued> segment of the left lower lobe may represent an infectious process. Remainder of the lungs are clear. Location: [facility] at 2037 Reported and signed by: Carlton Alcaraz MD CC: Loreto Whiting MD Technologist:EDY LUNA RT(R),RDMS,CT CTDI: DLP: Trnscb Date/Time: 08/16/2019 (2037) t.AZEBR.RR31 Orig Print D/T: S: 08/16/2019 (2040) PAGE 2 Signed Report - XR CHEST 2 Q8141-22-25 20:03:00 Name: COLLEEN JOHNSON [facility] : 1985 Age/S:33 /F [address] [facility] Unit#:[id number] Loc: [place] [address] Phys: Kaylee Whiting MD Dis Date: PHONE #: [phone] Status: REG ER FAX #: [phone] Exam Date: 08/16/2019 Re ason: SOB EXAMS: CPT CODE: [id number] XR CHEST 2 V 55313 REASON FOR EXAM: SOB Exam Order Date: [...] IMPRESSION : No acute cardiopulmonary process. Location: [facility] at 2002 Reported and signed by: Carlton Alcaraz MD CC: Cailin Whiting MD Technologist: EDY LUNA RT(R),R DMS,CT Trnscrpt Data: 08/16/2019 (2002) t.SDR.RR31 Orig Print D/T: S: 08/16/2019 (2006) PAGE 1 Signed Report [id number]-[id number] 18:37:00* Test Item Value Reference Range Interpretation Comments D-DIMER (test code = DDIMER) < 100 ng/ml < 600 COMPREHENSIVE METABOLIC PBAVN1586-14-33 18:35:00* Test Item Value Reference Range Interpretation [...] code = ALKP) 74 U/L 38-126 N FAYGIKXM-J6071-09-31 18:35:00* Test Item Value Reference Range Interpretation Comments TROPONIN-I (test code = TROPI) <0.015 ng/mL 0.00-0.056 N COMPREHENSIVE METABOLIC WOPPQ4006-24-98 18:22:00* Test Item Value Reference Range Interpretation [...] TOTAL (test code = ALKP) IUnit/L 45-117 IMYMFHDI-Q8229-68-31 18:22:00* Test Item Value Reference Range Interpretation Comments TROPONIN-I (test code = TROPI) ng/mL 0-0.045 CBC W/AUTO BVHM7140-52-43 18:15:00* Test Item Value Reference Range Interpretation [...] MDIFF) NO ANKLE 3 VIEW RT - AFON9815-96-24 19:27:00 [place] [address] Patient Name: COLLEEN JOHNSON MR #: [id number] : 1985 Age/Sex: 33/F Req #: [id number] Adm Physician: Ordered by: GLYNN BHATT MD Report #: [id number] [facility] Room/Bed: Procedure: [id number] HOPD/ANKLE 3 VIEW RT - HOPD Exam [...] on 07/17 COPY TO: GLYNN BHATT MD IZMIRUGVRHMQ8360-32-71 07:19:0010.1[facility] ArzcptwSCFUSXJHMRXS1517-01-02 07:19:00* Test Item Value Reference Range Interpretation Comments B/C Ratio (test code = B/C Ratio) 20 1 6-25 [facility] OeduckvVSZTVGMUSXEE5030-08-93 07:19:004.3[facility] HermannELECTROLYTES 2019-05-25 07:19:00* Test Item Value Reference Range Interpretation Comments A/G Ratio (test code = A/G Ratio) 0.9 1 0.7-1.6 [facility] BqyvdrhLFNKJFZKDTCB3907-23-21 07:19:0094[facility] HermannELECTROLYTES 2019-05-25 07:19:0013[facility] VhiwydkAGCKCKNEBWLW7193-22-16 07:19:000.66[facility] OfezrnuOCZTIULBTXZI4256-16-85 07:19:53174Zumtfdpw NangfafFPQFQEGIWXLC5695-28-13 07:19:004.1[facility] CsgigjhPXXCDBFGNNIU6278-17-38 07:19:75174Restvvcg [place] HOJXNRQDFSMO7477-61-32 07:19:0024[facility] UkvrmeaDDLPQIPAKEKR2536-38-00 07:19:00 9.3[facility] FabraqrWATNIDVXQSPJ5884-60-25 07:19:008.2[facility] QKJVJKPVCCFL2280-03-98 07:19:003.9[facility] IplfklyHVFYUOOFNQMO7193-42-29 07:19:0025[facility] LgrkuqjYIOLSJZTCYKM4146-65-23 07:19:0014[facility] CISLVCSTVPMX0612-70-49 07:19:0098[facility] PsxpmofYCGCEKHUUKBY7930-29-93 07:19:00 0.4[facility] YeelzwhFYDMKGPHUMCU6535-69-96 07:19:83202Eevgfrxp [place] WHZXUMETGNKUI9671-47-74 07:19:00Negative *NA*(05/25/19 2:19 AM)[facility] [place] COHRMBOAZN0592-12-03 07:19:0014.7[facility] UqhrjfzCYLTHXRTFI7053-55-02 07:19:00 4.90[facility] QfjcnofVNAWJNXAQN6322-98-48 07:19:0014.1[facility] HermannHEMATOLOGY 2019-05-25 07:19:0043.2[facility] MeaqmdgEKYJTKULBK5795-25-77 07:19:0088.2[facility] TaicbiyDXXNZEVTCK0362-97-60 07:19:00* Test Item Value Reference Range Interpretation Comments MCH (test code = MCH) 28.8 pg 27.0-31.0 [facility] KcoribeXFNJZPAAAY0803-26-07 07:19:0032.7[facility] HermannHEMATOLOGY 2019-05-25 07:19:0013.2[facility] SrepxbgNAJLVSXQHH7248-82-28 07:19:43634Mvuqzgai YdcqyzfKSNSBGAEWN0969-03-70 07:19:008.5[facility] YlcjfjqFQJOCUJERJ2605-91-30 07:19:0066.4[facility] RtpsbyhPPHQTYJVAN2963-43-05 07:19:0021.1[facility] [place] PAEYGGMOER4429-90-43 07:19:007.4[facility] XtbumsqHBAUMYVJFU9430-73-96 07:19:004.1 [facility] EajvmdrMXQQYMACJR9842-30-02 07:19:001.0[facility] HermannHEMATOLOGY 2019-05-25 07:19:009.8[facility] JstxgriSUJSTJAZEF3362-98-17 07:19:003.1[facility] HrvqtiqSRQWKVENFK6875-10-52 07:19:001.1[facility] WokjijmOMDTORQBGH5552-99-65 07:19:000.6[facility] AdbugcnNQAEMLJWFW5342-13-52 07:19:000.1[facility] HermannCHEM UCNLP3668-88-30 22:11:02756Bexvslel HermannCHEM AOKUW9455-22-67 22:11:0010 [facility]annCHEM SPTKB5800-09-24 22:11:000.78[facility] HermannCHEM PANEL 2019-04-03 22:11:60839Xgzarynd HermannCHEM TYAKS3560-67-30 22:11:003.9[facility] HermannCHEM NOIDC5827-21-60 22:11:73779Kdmcefrc HermannCHEM HMDGF4915-78-23 22:11:0025[facility] HermannCHEM DMENK0113-60-67 22:11:008.8[facility] HermannCHEM CYFKR2952-81-92 22:11:22524Edudzyhv HermannCHEM XSLQL0153-68-76 22:11:0010.9 [facility] LqzszsoGXOINEOLMORRS1953-31-28 22:11:00Negative *NA*(04/03/19 5:11 PM) [facility] BnmxqppNIZBJEYQZQ1414-63-16 22:11:0011.5[facility] HermannHEMATOLOGY 2019-04-03 22:11:004.85[facility] ChffdmgYEZALIXSQI8310-65-09 22:11:0014.2[facility] LahlaioQYEGSZBEQY7129-61-90 22:11:0043.0[facility] UtwdranVTWCGTNEJV4357-34-71 22:11:0088.7[facility] ZjabikdRBDTQMQACG6108-99-78 22:11:00* Test Item Value Reference Range Interpretation Comments MCH (test code = MCH) 29.2 pg 27.0-31.0 [facility] LstrwacACNEMMNKFM4979-47-99 22:11:0033.0[facility] HermannHEMATOLOGY 2019-04-03 22:11:0013.3[facility] NuzuxcfKKJZNMKEZY6317-85-11 22:11:27258Spxjiijl JsbgwdbMUGAYJIHZC1366-53-89 22:11:008.4[facility] NmtcubnIJSKJHKUIH1835-12-88 22:11:0066.0[facility] NwfuxewYHLWGVBNOV2756-58-08 22:11:0021.2[facility] EHBLQHGYVV1567-32-29 22:11:008.2[facility] JhkgfmzTDFTYFLNBJ3379-52-96 22:11:003.6 [facility] IthtryuAVYZYJHUJW5734-37-51 22:11:001.0[facility] HermannHEMATOLOGY 2019-04-03 22:11:007.6[facility] PbnqxxsMREJPKDEXP9060-00-06 22:11:002.4[facility] LlvbhqpMJQRJBGEBW7225-43-71 22:11:000.9[facility] BzddruaNFZKXJWSLJ6372-89-93 22:11:000.4[facility] OnbmepzEXGGQFCGSV9621-69-23 22:11:000.1[facility] QPMTBVUJQC8046-24-13 08:46:0011.2[facility] ByzljkyQHGCUMMNJM0304-79-91 08:46:00 13.7[facility] NhhhhnvOBPXKSHFXC9912-16-93 08:46:008.9[facility] HermannHEMATOLOGY 2019-03-24 08:46:004.66[facility] NhyrgbvLCXKKENUKF0467-03-48 08:46:13873Loouvvvm QfjznonHFXHBTSKLI8775-35-57 08:46:00* Test Item Value Reference Range Interpretation Comments MCH (test code = MCH) 29.5 pg 27.0-31.0 [facility] CqhepzpNEPCBNZOCV9766-48-86 08:46:0033.8[facility] HermannHEMATOLOGY 2019-03-24 08:46:0013.7[facility] JzjlshpHIOEPXXOEA6004-17-50 08:46:0040.6[facility] ZklqkwoFYVTEXXXLZ7967-10-29 08:46:0087.1[facility] GjryajyGOITYYVIHK2437-46-77 08:46:003.3[facility] TzueekqLJRUJVQECA6855-09-80 08:46:007.6[facility] [place] WWATXEKMJK5588-13-27 08:46:000.1[facility] DosexiwIMMDKGNOML9556-98-05 08:46:000.4 [facility] DxuanmoODIQYFSVYQ1768-30-20 08:46:0065.7[facility] HermannHEMATOLOGY 2019-03-24 08:46:0022.6[facility] AfhdqfjQKCBMOHRKL3667-91-36 08:46:007.4[facility] WvofwhaXKSBKJVLSN7770-56-71 08:46:000.8[facility] TnvhwtnQNLDSWFWYN0309-80-34 08:46:000.8[facility] MychruvHRHRMCUDPJ3624-07-47 08:46:002.5[facility] HermannCHEM BHCZP1461-10-88 03:31:00<0.05[facility] HermannCHEM LETJI3046-39-49 22:26:001.7 [facility] HermannCHEM BXMUL3577-51-01 17:57:001.7[facility] HermannELECTROLYTES 2019-03-23 17:57:0011.5[facility] TwjurnlTBXYCKLFTJHN9757-68-16 17:57:0099[facility] HhxxzrsXAVXMTAWSEYU4569-33-63 17:57:29242Ulzqkfhx YzntfgcOKQNWNXCQZKK6186-41-20 17:57:008.8[facility] ZardziuAUVNQNFOUMHY9760-42-70 17:57:0025[facility] [place] DASXSKYPZNFQ2881-33-00 17:57:94939Gcjptdgp TpwitphGUSHXAJZMXFT3831-11-17 17:57:003.5[facility] EjpdkbfOHGQTHMHPCUY7241-53-36 17:57:57345Edjrmksa [place] UKMVZKIUQLWA3997-37-78 17:57:000.79[facility] AlvrmnjAIBBYLUSNMDI9415-12-52 17:57:0010[facility] XryqkymZYKFTIUYKJ1606-29-63 17:57:000.7[facility] [place] SLYXGFGLBG6197-46-81 17:57:000.3[facility] ZdlznilUKPCCSLYRV3034-06-21 17:57:001.0 [facility] FkzqlzsIYIKODBMQI1285-30-92 17:57:003.1[facility] HermannHEMATOLOGY 2019-03-23 17:57:000.1[facility] NzhyateWEHCSJXAXB7188-47-38 17:57:008.0[facility] PqiksbdASHUWYPVTI6022-40-67 17:57:002.1[facility] OifuvfqABUMXBTPWU3882-97-64 17:57:0018.5[facility] UkvogfhEGJDOWUVSR5058-31-17 17:57:006.6[facility] HEKBCTTFGR8191-97-76 17:57:0070.8[facility] DkctwmuFXWQVUGAGT1402-76-58 17:57:00 271[facility] IdhmtrbGRUJSKEYTB7200-86-14 17:57:008.0[facility] HermannHEMATOLOGY 2019-03-23 17:57:0013.6[facility] VjoaolrEHPVZJMJPX4418-37-35 17:57:00* Test Item Value Reference Range Interpretation Comments MCH (test code = MCH) 29.3 pg 27.0-31.0 [facility] AkyxzhzKEYFIDNGLQ2517-19-81 17:57:0033.3[facility]HE[facility]OLOGY 2019-03-23 17:57:0088.1[facility] VzslaxpOHIQAEEGJA0209-38-06 17:57:0014.2[facility] CcfhvzuHABMFUQNPB1776-18-40 17:57:0042.6[facility] WzzqjugAFZYQFNGGF1328-34-50 17:57:004.84[facility] GueqnwaGXIAYTXNIE7606-98-88 17:57:0011.2[facility] [place] CHEM JFIGG5874-27-15 08:05:005.1[facility]annCHEM XZYQO3072-96-58 08:05:001.7 [facility] KxqxhhpCQNGTVEZGYGK3649-10-03 08:05:0010.8[facility]annELECTROLYTES 2019-03-07 08:05:12752Ztjnulen CoofoljJKUMGGQONGXJ1196-66-53 08:05:008.8[facility] CbqugqcSSSDOPMOGYKL6265-37-25 08:05:0029[facility] AcozqrqTFOJFZNPZWUT9786-22-85 08:05:61892Vzxfyjdx VkripnoLYNMCEANQDFZ7400-88-61 08:05:003.8[facility] ERUBAYJMNXNO4174-91-87 08:05:0011[facility] HfqgrzbGHTBWWVKOIWU9452-11-22 08:05:00 0.78[facility] ZxytfunSHJMLSKLUDRH1067-62-17 08:05:33748Ztwecztk [place] ICYWPUQKBZJV6215-99-93 08:05:94572Ulybrkuz ByxvjocAOBDTHHEAJ3689-70-69 08:05:00 256[facility] DwpxiewAOVRJINRGP5130-37-09 08:05:008.9[facility]annHEMATOLOGY 2019-03-07 08:05:0013.6[facility] FivkmvyQAUZXJKMUT8967-66-62 08:05:0033.8[facility] EcgarmyPPDQVRYRYG6733-04-74 08:05:0086.3[facility] DvihrcuTFIDYXVYFV7190-98-86 08:05:00* Test Item Value Reference Range Interpretation Comments MCH (test code = MCH) 29.2 pg 27.0-31.0 [facility] MqugyxyBWIMANURYI7606-27-28 08:05:0013.5[facility]annHEMATOLOGY 2019-03-07 08:05:004.63[facility] FlohhwzMUAEUTIILN7859-43-82 08:05:0039.9[facility] EmgiadgWYFGMNQNKL7983-21-70 08:05:0010.0[facility] YxpxdrzCOGLQCIGDO4833-35-08 08:05:000.1[facility] KhfyyroQIWLXJLPLI9572-93-98 08:05:000.4[facility] LCSGTNTIED3982-28-71 08:05:004.4[facility] ZdjjlkiIIUHGFXPBG5860-46-61 08:05:002.7 [facility] MelbltsDOXFUWAETJ8962-19-30 08:05:000.7[facility]annHEMATOLOGY 2019-03-07 08:05:000.7[facility] QbbgsrcCVNBHYYSDL4248-09-60 08:05:006.1[facility] CfowresESEXJDSOZF1571-77-14 08:05:006.7[facility] KraihsdTCWUQMKUYC0048-85-49 08:05:0026.7[facility] BlqhrnoPMEGTLZLTC4935-04-85 08:05:0061.5[facility] CHEM ERSNO1260-51-17 10:30:004.2[facility]annCHEM OLPRZ9073-45-25 10:30:001.8 [facility] NcnukuaUWQWNDAOASAN7669-02-40 10:30:004.0[facility] HermannELECTROLYTES 2019-03-06 10:30:36124Zznqjmwb VoghgscOSCHOPKXRIEX6302-98-93 10:30:0026[facility] GdddunaXMUVRBBWLMRX3363-30-47 10:30:58070Gcujguko QeztrplIVJCKOGSGEHF4759-26-95 10:30:000.71[facility] DuszykgTXRINYOZAGAT8059-50-47 10:30:008.6[facility] SIGXQSUHSXTH6116-15-04 10:30:72549Ogvnhfxx DzncryxABQQLZOSDUXY8620-14-57 10:30:52311Dkkfsaxq RpalbetJIHMCXAZOFQJ0482-59-40 10:30:0011[facility] FQNNWRINPZUO4628-17-14 10:30:0011.0[facility] CgkvfnuYFWEZTUCUK1215-61-37 10:30:00 4.7[facility] KqpbsfdYAXMHAUSDM3000-43-94 10:30:0027.0[facility]annHEMATOLOGY 2019-03-06 10:30:007.3[facility] BzxktyaOYQOVGWVMC0939-76-02 10:30:0059.8[facility] EjeiralUWFLCROOCN5292-17-24 10:30:000.4[facility] InfqeqeIORSGZOQDJ4647-77-73 10:30:002.3[facility] MxhzdutLIDGTBUCGO9898-44-22 10:30:000.6[facility] DZLGTTTYZF2147-31-12 10:30:001.2[facility] XvrakevXBWQRSHLQW3424-60-73 10:30:005.1 [facility] MmmnkqaQQJUXXSYSE1612-79-12 10:30:000.1[facility]annHEMATOLOGY 2019-03-06 10:30:0037.4[facility] XxcaaosYOOXAONSRM6953-29-17 10:30:008.5[facility] JiqryqtOZDNKYUVME3153-94-66 10:30:004.32[facility] OgvhfdnIQPIFBPJKN1024-27-23 10:30:0012.7[facility] GmybiuiECNFKCDPUB1355-85-89 10:30:0086.6[facility] [place] QBSHUITRAW4302-52-85 10:30:008.7[facility] DgqnvtqZGFKEKPFDK2259-04-26 10:30:83248 [facility] IrtgfecMEXXGSPOUA6518-31-84 10:30:00* Test Item Value Reference Range Interpretation Comments MCH (test code = MCH) 29.3 pg 27.0-31.0 [facility] IhlfjbuJFFIDDZGNV5463-95-52 10:30:0033.9[facility]annHEMATOLOGY 2019-03-06 10:30:0013.7[facility] OzhtdooJFPBJQBFJT8469-86-72 16:55:0017.8[facility] PlvgdgkNWRFZFVKIF6659-86-07 16:55:00* Test Item Value Reference Range Interpretation Comments Chandanao Tr TND (test code = Vanco Tr TND) 1300 1 [facility]annCHEM ISDLK2606-44-24 08:21:004.6[facility]annCHEM PANEL 2019-03-04 08:21:001.7[facility] XhlsidcKGAJQSYRSPNN7227-14-40 08:21:008.6[facility] AznyezhETFVJZXNEYDO5140-05-71 08:21:75847Ibulimoh QlhuhkxKNHTINWPUQQJ3802-63-73 08:21:000.62[facility] XfmpkzdYPFBJZPLPWBL6775-73-52 08:21:003.6[facility] ZUZNUYXERUVW8609-97-82 08:21:44714Egjoqxbg FebdbzwUXPAQOUEJAYG0482-08-18 08:21:91122Zcmmqamn GlqjosmAQANCOMVJSXC1936-13-79 08:21:0028[facility] DZAPAHQBRHPF4102-68-94 08:21:008.2[facility] AdebqbvIKLGMWEJLTTM6976-66-29 08:21:007[facility] CjqcfqdMNOSDGUWYOFA7181-38-15 08:21:59445Wzjtwnxt [facility] IABGOEKXVN1929-44-30 08:21:0012.5[facility] RaodqvhBJRPLXJEPR2206-05-01 08:21:00* Test Item Value Reference Range Interpretation Comments MCH (test code = MCH) 29.7 pg 27.0-31.0 [facility] OsjtbuqPXIBWNQJFK0481-87-64 08:21:0086.9[facility]annHEMATOLOGY 2019-03-04 08:21:0036.5[facility] TcdxgymXNQKJXTXQO9776-89-51 08:21:53542Iawayxac WbtkjgzHTCBDNFJBY0335-76-33 08:21:0013.9[facility] VobwcquUWHQDCSGCA4216-14-50 08:21:008.9[facility] BevzscjUSBKHVUAPK6940-41-94 08:21:009.0[facility] ZKDGQLKGWR0907-31-27 08:21:0034.2[facility] WihggpiDFVQFSDLLT4672-66-69 08:21:00 4.20[facility] HwztsxuDNWUGQDZAQ8568-60-15 08:21:005.2[facility] [facility]MATOLOGY 2019-03-04 08:21:002.6[facility] AbngzirRIXTODBROJ8224-96-14 08:21:000.8[facility] RdvhvtnFGSRDLNZPG6983-20-44 08:21:000.4[facility] JfkjqneADDLYDFALL3111-56-63 08:21:0057.6[facility] RssfekrKUFGWPVVLJ4705-97-47 08:21:0028.4[facility] XZPYXRQCWH2628-66-47 08:21:008.8[facility] NrlabwfRURKMIWWQR5534-14-33 08:21:004.1 [facility] RhurgkwRWEOYCCXOV9905-29-44 08:21:001.1[facility]annHEMATOLOGY 2019-03-04 08:21:000.1[facility] HermannCIPROFLOXACIN:SUSC:PT:ISOLATE:ORDQN:MONISHA 2019-03-02 22:15:00Staphylococcus aureusMemorial JcmqfylXYBYYUWVWT4605-20-52 16:54:00* Test Item Value Reference Range Interpretation Comments Morenita WADE (test code = Morenita SANCHEZD) 1300 1 [facility] KytbuuzPVYGKBFPCP1875-56-73 16:54:0014.7[facility]UR[facility] STOOL 2019-03-01 21:13:00Negative (03/01/19 4:13 PM)[facility] 2019-03-01 21:13:00Negative (03/01/19 4:13 PM)[facility] 2019-03-01 21:13:0087[facility] FHPFF9766-15-54 21:13:003[facility] KEYAD4805-02-74 21:13:00* Test Item Value Reference Range Interpretation Comments UA pH (test code = UA pH) 7.0 1 5.0-8.0 [facility] ITVRZ6331-49-93 21:13:00Large *ABN*(03/01/19 4:13 PM) [facility] FRHIA2406-41-36 21:13:00Negative *NA*(03/01/19 4:13 PM) [facility] ZDVPZ8252-15-18 21:13:00* Test Item Value Reference Range Interpretation Comments UA Spec Grav (test code = UA Spec Grav) 1.010 1 [facility] ZWOIR4504-24-69 21:13:00Slight *ABN*(03/01/19 4:13 PM) [facility] VBNZA0646-67-83 21:13:00Yellow *NA*(03/01/19 4:13 PM) [facility]annCHEM AKYEO4832-53-09 08:18:003.4[facility] HermannCHEM PANEL 2019-03-01 08:18:007.2[facility]annCHEM LSHYC2762-81-47 08:18:0086[facility]annCHEM DTOKK2656-96-94 08:18:000.5[facility]annCHEM WHTHS1715-94-31 08:18:0012[facility]annCHEM MQLSS5056-48-74 08:18:0020[facility]annCHEM QLWDK7138-97-30 08:18:00* Test Item Value Reference Range Interpretation Comments A/G Ratio (test code = A/G Ratio) 0.9 1 0.7-1.6 [facility]annCHEM HLIBY0248-02-62 08:18:00* Test Item Value Reference Range Interpretation Comments B/C Ratio (test code = B/C Ratio) 16 1 6-25 [facility]annCHEM HEOAS9979-24-66 08:18:003.8[facility] HermannHEMATOLOGY 2019-03-01 08:18:00* Test Item Value Reference Range Interpretation Comments INR (test code = INR) 1.14 1 0.85-1.17 [facility] PxztgvwRIVLREVABR3463-11-12 08:18:00* Test Item Value Reference Range Interpretation Comments PTT (test code = PTT) 38.3 s 22.9-35.8 [facility] PtgrxwbUJCBPEWGUN5121-02-09 08:18:00* Test Item Value Reference Range Interpretation Comments PT (test code = PT) 14.4 s 12.0-14.7 [facility]annCHEM ZLWTF1789-38-68 04:02:001.4[facility] HermannENDOCRINOLOGY 2019-03-01 04:02:00<1[facility] EtknulmAVHJQFHVDD5004-52-22 00:33:0010.8[facility] LtphkmjQKVYKBVDDW7139-30-33 00:33:00* Test Item Value Reference Range Interpretation Comments Chandanao Tr TND (test code = Vanco Tr TND) 2000 1 [facility]annBACTERIAL - HAYRQBLL2749-36-25 16:23:00Negative (01/30/19 11:23 AM)[facility] YdejjalYODSWJXYIY6356-85-00 18:29:0018.9[facility] HermannTOXICOLOGY 2019-01-29 18:29:00* Test Item Value Reference Range Interpretation Comments Chandanao Tr TND (test code = Vanco Tr TND) 1330 1 [facility] WrkhjssEYGJZCUUSW2870-11-84 08:44:00* Test Item Value Reference Range Interpretation Comments MCH (test code = MCH) 28.5 pg 27.0-31.0 [facility] FmvfvfhBFEFQPWLIY0404-25-70 08:44:0087.8[facility] HermannHEMATOLOGY 2019-01-29 08:44:0038.5[facility] MgfbllqBCBIGHVSZG4556-17-37 08:44:0012.5[facility] EhygddgJLTSNSZCDM6768-22-28 08:44:004.38[facility] YzzojpcZORTXUUHIL2072-03-75 08:44:26940Egcohgpr CkcvcsfIWTXIBNDSP5590-79-91 08:44:0032.5[facility] OXPFTDCKND6033-48-03 08:44:008.5[facility] GvcnrutFELJASUMUL4721-54-87 08:44:00 13.5[facility] RfjilbaJSJSIBJKXZ0424-55-24 08:44:008.1[facility] HermannTOXICOLOGY 2019-01-28 17:25:0018.3[facility] VstmskeLHHIMMLEPG0419-79-33 17:25:00* Test Item Value Reference Range Interpretation Comments Morenita Tr TND (test code = Vanco Tr TND) 1230 1 [facility]annCEFEPIME:SUSC:PT:ISOLATE:ORDQN:AAO6023-69-39 00:35:00 Staphylococcus aureusMemorial HermannCEFEPIME:SUSC:PT:ISOLATE:ORDQN:MONISHA 2019-01-28 00:35:00Klebsiella pneumoniae ssp pneumoniaeMemorial [facility] CEFEPIME:SUSC:PT:ISOLATE:ORDQN:XZL2464-17-54 00:35:00Proteus mirabilisMemorial HermannURINE AND WGEAU2654-43-35 11:31:00Negative (01/27/19 6:31 AM)[facility] ZWFII1803-40-19 11:31:002[facility] STOOL 2019-01-27 11:31:005[facility] BPSSF6061-96-01 11:31:00* Test Item Value Reference Range Interpretation Comments UA pH (test code = UA pH) 6.0 1 5.0-8.0 [facility] ICLVE0378-52-26 11:31:00Yellow *NA*(01/27/19 6:31 AM) [facility] TNKUO5416-20-11 11:31:00* Test Item Value Reference Range Interpretation Comments UA Spec Grav (test code = UA Spec Grav) 1.028 1 [facility] IVVTK5608-21-68 11:31:00Slight *ABN*(01/27/19 6:31 AM) [facility] YZOVY0915-70-05 11:31:00Negative (01/27/19 6:31 AM) [facility] UJBMX7746-28-67 11:31:00Negative *NA*(01/27/19 6:31 AM) [facility] JPNUU6554-51-84 11:31:00Negative (01/27/19 6:31 AM) [facility] YZDV9058-41-94 11:31:00Negative (01/27/19 6:31 AM)[facility]annCHEM XZDIH7164-17-40 08:45:001.5[facility] HermannCHEM AKYWV1779-96-66 08:08:00* Test Item Value Reference Range Interpretation Comments B/C Ratio (test code = B/C Ratio) 19 1 6-25 [facility]annCHEM DUTUN9179-88-36 08:08:003.9[facility] HermannCHEM PANEL 2019-01-27 08:08:00* Test Item Value Reference Range Interpretation Comments A/G Ratio (test code = A/G Ratio) 0.9 1 0.7-1.6 [facility]annCHEM WLTMI6749-49-96 08:08:0013.9[facility] HermannCHEM PANEL 2019-01-27 08:08:98180Gfnvgize HermannCHEM GNUNJ3389-59-56 08:08:0018[facility]annCHEM FIBLI5038-07-92 08:08:0092[facility]annCHEM DXLUV6326-68-90 08:08:003.9[facility]annCHEM JTBLI8174-43-24 08:08:000.3[facility] HermannCHEM DGSVU6725-44-76 08:08:003.6[facility]annCHEM HFTSF6204-93-04 08:08:0024 [facility]annCHE[facility] YBQVD0515-09-18 08:08:007.5[facility] HermannCHEM PANEL 2019-01-27 08:08:47556Fnicwbek HermannCHEM IVPOA7237-20-01 08:08:0024[facility]annCHEM BVPGD3165-20-62 08:08:45468Ymoayyxt HermannCHEM LIUGX2345-01-46 08:08:008.5[facility] HermannCHEM WQFEC7668-33-17 08:08:0014[facility]annCHEM HZXXM3616-50-36 08:08:000.75[facility] HermannCHEM CLBLK7120-61-20 08:08:0091 [facility] FgftiosLAOTRZXUDJ6371-18-16 08:08:006.5[facility] HermannHEMATOLOGY 2019-01-27 08:08:008.1[facility] XldnkbaYLAJQDWYSC8107-72-93 08:08:000.9[facility] DjsqdhgXPUVUVRPUU1877-41-63 08:08:002.9[facility] YzkxqnsPEEELZPMMX5194-82-35 08:08:007.4[facility] WyztltaSHZHFKIJUM6665-25-80 08:08:001.0[facility] ZVEHHMKPZK4072-25-31 08:08:000.8[facility] XopayleAREHMSEVRD5866-45-93 08:08:000.1 [facility] HazvklrTEILMGCOJL5838-54-97 08:08:0023.6[facility] HermannHEMATOLOGY 2019-01-27 08:08:0060.9[facility] KgzwwodRNVREQKYEJ4809-64-12 08:08:0012.2[facility] HeewgymVNDFJDJRVR4585-58-36 08:08:0032.4[facility] GgkhgywGCNEPINZVC8969-46-04 08:08:0013.7[facility] HjqwkwrTJRTREIKRE7750-06-16 08:08:00* Test Item Value Reference Range Interpretation Comments MCH (test code = MCH) 28.5 pg 27.0-31.0 [facility] TbgjkbsFCUHGEZQBQ1893-33-09 08:08:0088.2[facility] HermannHEMATOLOGY 2019-01-27 08:08:0041.4[facility] XhuilywNZPGRDWUBO3478-91-23 08:08:004.69[facility] YmlznivDHMAWOZTDC9194-10-88 08:08:0013.4[facility] RkoecapSVZTHYKGUK0351-91-44 08:08:008.8[facility] UrunnbdXKQMLEROGN1017-31-69 08:08:46174Scavwvmq HermannCHEM YSKNE8873-45-14 01:46:001.0[facility] FueskrdEOTMDYHJRJDM5285-85-45 01:46:90648 [facility] XjrdigcBGQSTSYVQBRH3421-95-99 01:46:001.04[facility] HermannELECTROLYTES 2018-12-13 01:46:0071[facility] DipdexeVTZCOIQCFUUQ0745-29-23 01:46:0088[facility] VigyuvlIDZPZAPQDLSK1177-32-48 01:46:003.4[facility] DrgwtlvIXCJGKFSRWLW0199-99-12 01:46:0015[facility] WluxnyoTWAKSYZINOAK7901-54-08 01:46:0079[facility] XCPXILMAIBYL0568-71-83 01:46:003.2[facility] ZmgldjrQYJWDQIXISDI6560-45-16 01:46:0015[facility] IbbgyzkGZFYOYCCJSEM8868-13-27 01:46:000.2[facility] [place] HLDVBESYCAVS3020-66-99 01:46:0024[facility] XvffivqNBFZUUOQORIS3012-66-42 01:46:00 105[facility] IorgsaiHGFHQQIUBOKH8319-46-44 01:46:0029[facility] HermannELECTROLYTES 2018-12-13 01:46:008.8[facility] OztxlrkUVWRNMYGSCCJ9228-63-54 01:46:007.7[facility] NykpsetUHHGXNSHIOWT2451-47-17 01:46:00* Test Item Value Reference Range Interpretation Comments B/C Ratio (test code = B/C Ratio) 14 1 6-25 [facility] QxormksHTMCBCTLPPJU2081-22-78 01:46:009.4[facility] HermannELECTROLYTES 2018-12-13 01:46:00* Test Item Value Reference Range Interpretation Comments A/G Ratio (test code = A/G Ratio) 0.7 1 0.7-1.6 [facility] DqmgvzoYSGEKBSBYCAT5195-42-17 01:46:004.5[facility] HermannHEMATOLOGY 2018-12-13 01:46:000.1[facility] AxfelicWNCVLRZNWQ4963-25-22 01:46:002.6[facility] LhouzodTGNCMIMXXI2882-67-44 01:46:000.8[facility] FvtjuviGBLYSKMSKM6654-95-70 01:46:000.5[facility] TvotynaEVSIINGFFO7343-65-02 01:46:004.0[facility] YQTTDJWZRX8998-94-20 01:46:007.1[facility] ObqpqpiOLGMCYLLJS1006-10-57 01:46:00 22.7[facility] EtaqzfmTJFADGQGIX9562-94-52 01:46:001.2[facility] HermannHEMATOLOGY 2018-12-13 01:46:007.3[facility] AojufqgSXBKXKMCYA2099-37-72 01:46:0065.0[facility] GaunilxGZQTFYQTSJ6488-91-21 01:46:0013.3[facility] EoahtnsEGUMQNDTQQ8672-67-38 01:46:0033.7[facility] FdeouziTNCSYCNTHX5238-26-07 01:46:99833Mmphsigw [facility] NFRKWKDXRC2958-49-48 01:46:007.7[facility] BqzkngqPGJVINJMQH2525-22-40 01:46:00 4.45[facility] YtjijjjLMIQJHBJIE6158-37-48 01:46:00* Test Item Value Reference Range Interpretation Comments MCH (test code = MCH) 28.9 pg 27.0-31.0 [facility] DqrhpoiFDGSXRZDOG8416-92-85 01:46:0085.7[facility] HermannHEMATOLOGY 2018-12-13 01:46:0011.3[facility] PalsowjGTMHYTRNXG4083-74-66 01:46:0012.9[facility] NfkbociIHGJNLVETL1701-18-84 01:46:0038.1[facility] KzmyhheRRVXGJZRYR6720-97-25 01:04:00* Test Item Value Reference Range Interpretation Comments Vanco Tr TND (test code = Vanco Tr TND) 2100 1 [facility] JunhxcxDHIJPUORLZ1647-47-17 01:04:0016.7[facility] HermannCHEM PANEL 2018-12-08 08:20:0093[facility] HermannCHEM PKSJN2678-02-15 08:20:20974Vcklzwjm HermannCHEM HBRVD2175-15-70 08:20:000.83[facility] HermannCHEM ITVZF7709-45-61 08:20:006[facility]annCHEM SKKOB5326-78-13 08:20:0098[facility] HermannCHEM NQWRB3701-16-11 08:20:0029[facility]annCHEM ZGPGU2340-08-87 08:20:31460 [facility]annCHEM YCGTU3687-32-96 08:20:003.8[facility] HermannCHEM PANEL 2018-12-08 08:20:008.8[facility] HermannCHEM RWNHM2511-18-68 08:20:0011.8[facility] AscecriRYAXHNTKFA5696-31-71 08:20:008.5[facility] YiyjztbVMHLGWXZZB9891-77-17 08:20:0061.1[facility] MyaeqwvSNJUJYDBQL8315-22-84 08:20:005.9[facility] OMCWLDYELN8247-66-18 08:20:0023.5[facility] OgxowmoIVCYITTDEX5412-59-04 08:20:00 0.1[facility] RgaplmzDBMWJOPHRA4313-39-77 08:20:000.6[facility]annHEMATOLOGY 2018-12-08 08:20:000.8[facility] TjtnjbjTKOIYXLPCV7775-35-39 08:20:002.3[facility] LggcdewZUNYCOEONW1105-07-94 08:20:001.0[facility] BxijvwuUIKHFNTRZG3614-04-82 08:20:006.0[facility] CabgqqfMPZMAFLEPO1542-22-16 08:20:007.8[facility] ZTHNAETIVM7465-04-87 08:20:55008Jorzbpcm FcakjpuPFESBXSBRC6415-48-13 08:20:00 13.1[facility] XtqryteJZZNIQMJWA1670-16-24 08:20:0033.6[facility]annHEMATOLOGY 2018-12-08 08:20:0035.3[facility] FgbxmbfKUBPODGTFD5505-00-28 08:20:0086.2[facility] NbnhvscMBQPLXQKYW6274-31-02 08:20:009.7[facility] DxjzyudDHCAUKICPO7709-83-97 08:20:00* Test Item Value Reference Range Interpretation Comments MCH (test code = MCH) 28.9 pg 27.0-31.0 [facility] XfnmudeOYHAQYKOAT8138-29-92 08:20:004.10[facility]annHEMATOLOGY 2018-12-08 08:20:0011.9[facility] LbhobwmBQZDOMDXFV5617-20-99 17:03:0015.3[facility] XhijnsuGFDHPOUVHFTH2473-22-71 08:16:009.8[facility] NopcjkmXYJMUGIZDFBK1323-99-96 08:16:59300Ayguqywy HrzdtbaWADSERJCFKEH0419-02-28 08:16:10174Hjzbftej [place] GMXNUHGPWHEB4336-05-34 08:16:003.8[facility] YnuuxveEXYFQLGONEDP7516-15-88 08:16:008.1[facility] UtbqzwcQDMRKKVZUJVX8346-89-13 08:16:0031[facility] VYEOSEWWBDZQ4222-78-21 08:16:79028Dvwkillw BjxtlvlTQSCJJYGRYNV3318-75-52 08:16:000.69[facility] ZhkgmfpOWVFGHXCYRTW8819-69-35 08:16:006[facility] WUNWYGSUBHTY4725-95-29 08:16:49443Uuwcnjsh JmvhisuFTFBQDYSQL8306-88-60 08:16:00 87.1[facility] MjzkdlaVHYNBNMRUW4062-02-38 08:16:0034.8[facility]annHEMATOLOGY 2018-12-07 08:16:00* Test Item Value Reference Range Interpretation Comments MCH (test code = MCH) 28.8 pg 27.0-31.0 [facility] BtpqtbnTWJHKETEVH8915-39-63 08:16:0011.5[facility]annHEMATOLOGY 2018-12-07 08:16:007.7[facility] FuqcxhiXAYBPSHDVK7633-15-85 08:16:0013.3[facility] XdmpzlfIFHXQTEPSU4264-76-39 08:16:0033.1[facility] YanpyctAZBPRKLODE7907-38-17 08:16:43528Sjuefpha CetturmFAQIRLJJZD0782-33-40 08:16:004.00[facility] NGNQUCIGNL3314-67-43 08:16:009.8[facility] TsxskyjCKQIHRWYTV2591-96-52 08:16:000.8 [facility] XhgkupkFCWWVGPYHD5999-12-88 08:16:000.6[facility]annHEMATOLOGY 2018-12-07 08:16:000.1[facility] QqwfrxcIBMOFOWNMA4175-29-40 08:16:0061.0[facility] TtzurmtCFMUBATLKS9653-77-95 08:16:007.8[facility] VvexjfiYWDSMNEFJT1580-50-62 08:16:001.1[facility] EbrsccqGFLOCEJBJN2924-30-53 08:16:006.5[facility] WVCWYNKMIL9721-10-69 08:16:0023.6[facility] FsmsehgDORKIKMCUI7150-06-91 08:16:00 2.3[facility] GgasqurIWRSNWSPVY4030-50-59 08:16:006.0[facility] AMPICILLIN+SULBACTAM:SUSC:PT:ISOLATE:ORDQN:UVJ6016-40-30 17:32:00Staphylococcus aureusMemorial JhjcjtqYSSHAGREWS4299-82-72 14:55:00* Test Item Value Reference Range Interpretation Comments Morenita WADE (test code = Morenita SANCHEZD) 0930 1 [facility] RjdlcmuRHTQGZUVHY0332-21-90 14:55:0014.8[facility] HermannCHEM PANEL 2018-12-06 07:45:66232Omgyggym HermannCHEM DXKBI9617-50-35 07:45:008[facility] HermannCHEM QNHXJ0112-83-92 07:45:000.49[facility] HermannCHEM QUWQP8904-58-88 07:45:008.2[facility] HermannCHEM TNGIG8984-01-05 07:45:003.8[facility] HermannCHEM YQRLK1318-93-34 07:45:94780Mpdkuupa HermannCHEM EZHPF8984-84-96 07:45:22657 [facility]annCHEM TQWNO3506-24-32 07:45:0027[facility] HermannCHEM PANEL 2018-12-06 07:45:0099[facility] HermannCHEM YFNVW2803-31-94 07:45:009.8[facility] TkidgzwMTBPUDMJYF1000-06-09 07:45:000.1[facility] IelhepyGWPEZBVUTG5469-89-32 07:45:001.0[facility] TkxmwacMPHRZKPRHV5593-34-20 07:45:002.1[facility] YSOFWGVHLO2015-59-86 07:45:004.8[facility] YzfhugeUTJYRWWEYB1365-02-05 07:45:000.5 [facility] NvumcimNIBLTEYTEV2009-09-10 07:45:000.8[facility] HermannHEMATOLOGY 2018-12-06 07:45:009.8[facility] KyfxfnkURAUAJWPZA0352-62-53 07:45:0025.0[facility] FgmbtxcTLPRAPBWPO7884-71-03 07:45:006.3[facility] RduolzrXSRQLPYIYG0555-94-09 07:45:0057.9[facility] QkvekgpFAUIMOQSDG4123-19-52 07:45:00* Test Item Value Reference Range Interpretation Comments INR (test code = INR) 1.09 1 0.85-1.17 [facility] QfpbjmiHLRGEXCGKY7984-83-15 07:45:00* Test Item Value Reference Range Interpretation Comments PT (test code = PT) 13.9 s 12.0-14.7 [facility] NcmvxeoBTNODBGAUA5546-91-11 07:45:008.3[facility]annHEMATOLOGY 2018-12-06 07:45:0013.2[facility] DfofwieTVMZHPMPFB6340-95-61 07:45:0033.0[facility] XxboqglXDWLBXSPWZ4853-56-96 07:45:13612Rivmicmx TwuszqyEUDBBUSRUQ2821-34-12 07:45:003.96[facility] GsimicdRRXHPOSVHM5233-17-42 07:45:008.4[facility] ITGQYWKTTB6349-33-85 07:45:00* Test Item Value Reference Range Interpretation Comments MCH (test code = MCH) 28.6 pg 27.0-31.0 [facility] ZzlmxvcIYWAWKNFFP3822-91-82 07:45:0086.6[facility] HermannHEMATOLOGY 2018-12-06 07:45:0011.3[facility] IjmsjzfQWTJMPSGIR9763-00-50 07:45:0034.3[facility] LjvayqkQZIKUEZMJV0478-02-35 05:49:0015.3[facility] HermannCHEM PHXAR2084-12-43 06:52:001.9[facility] HermannCHEM QWSDP5499-77-43 06:52:000.7[facility] HermannCHEM QIHVW6555-08-17 06:52:0072[facility] HermannCHEM AAZZX7062-14-30 06:52:006.9 [facility]annCHEM ADAHM8322-08-51 06:52:0013[facility] HermannCHEM PANEL 2018-12-04 06:52:0029[facility] HermannCHEM XBNUI1946-66-04 06:52:002.8[facility] HermannCHEM XOXGE4568-71-98 06:52:004.1[facility] HermannCHEM PMSSN0346-41-87 06:52:00* Test Item Value Reference Range Interpretation Comments A/G Ratio (test code = A/G Ratio) 0.7 1 0.7-1.6 [facility] VWRAR5394[facility]85[facility]56 06:52:00* Test Item Value Reference Range Interpretation Comments B/C Ratio (test code = B/C Ratio) 14 1 6-25 [facility] HospitalDouqcmeOHSCGLFPQR7880-53-37 06:52:00* Test Item Value Reference Range Interpretation Comments PTT (test code = PTT) 44.5 s 22.9-35.8 [facility] HospitalCtcjghzUCJNTZQONJ2128-77-80 06:52:00* Test Item Value Reference Range Interpretation Comments PT (test code = PT) 16.0 s 12.0-14.7 [facility] HospitalZygmoifOWMZRKAVGA5235-05-79 06:52:00* Test Item Value Reference Range Interpretation Comments INR (test code = INR) 1.31 1 0.85-1.17 [facility]CHE[facility] FFQUM9935-19-69 02:50:001.1[facility]annCHEM PANEL 2018-12-03 21:23:000.7[facility] PfzyrwhLDWIMHCRZJQLD9079-53-31 21:23:00Negative *NA*(12/03/18 4:23 PM)[facility]CHE[facility] OGRUK0647-13-22 07:12:001.0[facility] HermannCHEM PEKYB6442-66-03 03:34:00* Test Item Value Reference Range Interpretation Comments B/C Ratio (test code = B/C Ratio) 19 1 6-25 [facility]annCHEM LBBHW5592-65-15 03:34:009.8[facility] HermannCHEM PANEL 2018-10-11 03:34:004.5[facility] HermannCHEM PVIAA1913-70-40 03:34:00* Test Item Value Reference Range Interpretation Comments A/G Ratio (test code = A/G Ratio) 0.8 1 0.7-1.6 [facility]annCHEM PIONW1279-71-29 03:34:0093[facility] HermannCHEM PANEL 2018-10-11 03:34:0024[facility] HermannCHEM LRITB6938-96-56 03:34:0017[facility] HermannCHEM AJDSR7828-07-91 03:34:0081[facility] HermannCHEM JZYLS6397-17-78 03:34:000.3[facility] HermannCHEM BUWQQ6135-32-55 03:34:000.83[facility]annCHEM DKHZW0425-22-36 03:34:0084[facility]annCHEM TNPZG4464-06-89 03:34:0016 [facility]annCHEM KEMTK1644-26-33 03:34:003.8[facility] HermannCHEM PANEL 2018-10-11 03:34:93898Zihicsgw HermannCHEM KJFZY5031-27-33 03:34:0026[facility] HermannCHEM GMZPC4645-85-13 03:34:008.5[facility] HermannCHEM RZDWA3328-42-40 03:34:04027Ujhgepmf HermannCHEM GPWNM7694-80-44 03:34:008.0[facility] HermannCHEM GGAVH7024-45-18 03:34:003.5[facility] YxvejnnWHBNFIVEXR1756-60-12 03:34:000.8 [facility] SojnmalFIOYCLNPTX9927-46-30 03:34:000.1[facility] HermannHEMATOLOGY 2018-10-11 03:34:000.3[facility] NuhdsudHFCUBZNECA9359-76-76 03:34:007.7[facility] IsqfjroGPEBWGJQHL5993-80-72 03:34:003.0[facility] YzlhcukEHEUXNBTCK0552-34-69 03:34:000.6[facility] VlszhihXITAQYIUTX1165-29-27 03:34:006.8[facility] [place] PZUEKXVLNW0552-25-82 03:34:002.4[facility] VwhaklzYUOQMMOEBA1350-27-66 03:34:00 22.9[facility] BhdaqqySTNQFKUMFT9434-63-21 03:34:0065.8[facility]annHEMATOLOGY 2018-10-11 03:34:0013.3[facility] HwfethiBUAHKWCGXQ3625-90-45 03:34:0032.5[facility] KiiopwfYIZSNZDEBS3249-81-03 03:34:00* Test Item Value Reference Range Interpretation Comments MCH (test code = MCH) 28.8 pg 27.0-31.0 [facility] BxeirjaYPCMTMRYIQ1080-83-15 03:34:0042.6[facility]annHEMATOLOGY 2018-10-11 03:34:0013.8[facility] EavzupqCIRKGFDFIF2959-29-86 03:34:0010.3[facility] FousesoZWBKXZFHTR0270-87-37 03:34:0088.5[facility] CjsmjrwJUCOEBFIWF4399-26-72 03:34:004.81[facility] NjwslwxFMMRYEQZDA6785-02-80 03:34:59189Irmwvlzv [facility] EJKRBAHGCX9385-63-29 03:34:008.7[facility]- CT HEAD/BRAIN W/O CONT 2018-09-23 11:52:00 Name: COLLEEN JOHNSON [facility] : 1985 Age/S: 32 / F [address] [facility] Unit #: [id number] Loc: [place] [address] Phys: Sergio Ellis MD Acct: [id number] Dis Date: Status: REG ER PHONE #: [phone] Exam Date: 09/23/2018 1144 FAX #: [phone] Reason: numbness right side of face EXAMS: CPT CODE: [id number] CT HEAD/BRAIN W/O CONT 20865 HISTORY: Numbness to the right side. COMPARISON: [...] Justin Leon M.D. CC: Sergio Ellis MD Technologist:RT Fermin(R),CT CTDI: DLP: Trnscb Date/Time: 09/23/2018 (1152) t.SDR.[email or web address] Orig Print D/T: S: 09/23/2018 (1155) CTDI: DLP: PAGE 1 Signed Report CHEM BANEN6334-54-32 06:46:001.5[facility]annCHEM IHLCM8294-76-61 06:46:000.5[facility]annCHEM VSPKZ2852-02-75 06:46:0015 [facility]annCHE[facility] OJHKQ4009-47-85 06:46:0074[facility]annCHEM PANEL 2018-09-06 06:46:0072[facility]annCHEM UGFBB7742-54-32 06:46:001.03[facility]annCHEM NDFEQ7865-62-41 06:46:02120Vsrhgzwh HermannCHEM UEDVT7398-98-14 06:46:003.6[facility]annCHEM SWGLX2257-58-90 06:46:007.4[facility]annCHEM BIHYD2673-28-29 06:46:003.3[facility]annCHEM FTJVB4640-57-03 06:46:0027 [facility]annCHE[facility] QBEVH3963-19-92 06:46:81494Xndffobp HermannCHEM PANEL 2018-09-06 06:46:0011[facility]annCHEM BJJEB1957-01-73 06:46:008.3[facility]annCHEM UJDVY2318-00-50 06:46:12549Nibgtirb HermannCHEM PETLU0075-33-20 06:46:0024[facility]annCHEM FXNYY9659-24-36 06:46:00* Test Item Value Reference Range Interpretation Comments A/G Ratio (test code = A/G Ratio) 0.8 1 0.7-1.6 [facility]annCHE[facility] OOFAS8612-35-64 06:46:0010.6[facility]annCHEM PANEL 2018-09-06 06:46:00* Test Item Value Reference Range Interpretation Comments B/C Ratio (test code = B/C Ratio) 11 1 02-08 [facility]annCHE[facility] QLFTT5562-68-99 06:46:004.1[facility]annCHEM PANEL 2018-09-06 06:46:49285Sgatgnck IcnkiscQFDSAJEFWTELN1070-22-16 06:46:00Negative *NA*(09/06/18 12:46 AM)[facility] LpnjozvGXHJSYKAUO4464-80-60 06:46:05006Twevkkyx CpwyzvbLYZHYEOSVW8821-56-45 06:46:008.3[facility] BvbaicyZCGDIWIFVF0409-00-27 06:46:0033.1[facility] IkpgrsbUFUWLAGJYK8946-96-75 06:46:0013.7[facility] JOSBJPSCQM9364-46-81 06:46:00* Test Item Value Reference Range Interpretation Comments MCH (test code = MCH) 28.5 pg 27.0-31.0 [facility] JdqssqvYHOVXZGHUX1090-90-10 06:46:004.70[facility]annHEMATOLOGY 2018-09-06 06:46:0013.4[facility] PurwpeyPIFUYFMFAL2457-18-34 06:46:0012.6[facility] OrugikhRXMWUSAZFZ5134-15-60 06:46:0040.5[facility] BdwqrtqEAYRRBSWOD5291-13-80 06:46:0086.2[facility] CjpepdjGDSNUOOKKR2693-45-78 06:46:000.1[facility] PMOEMRBYGV3784-84-82 06:46:000.4[facility] WbwmuitMZMDHMZAKM9218-81-68 06:46:000.8 [facility] SinkhpyXAXSFYJZAP4267-99-11 06:46:008.4[facility]annHEMATOLOGY 2018-09-06 06:46:002.9[facility] JciutlfIOBRXRJZZZ2113-11-40 06:46:003.6[facility] YgphszoDVHOXTRHAF1271-10-88 06:46:000.7[facility] HudeojiOTLPFJHUVT8818-17-30 06:46:0022.9[facility] WesticvATQQVMHJPR3595-34-60 06:46:006.3[facility] VDJLSMPOKU4965-99-77 06:46:0066.5[facility]annURINE AND TMRJL9920-11-50 06:46:00Negative (09/06/18 12:46 AM)[facility]ann[facility] AND QMPVS8639-82-75 06:46:61570Ikunkxxx HermannURINE AND GMYBA4069-23-27 06:46:003[facility] URINE AND UCMLG1025-13-49 06:46:00Negative *NA*(09/06/18 12:46 AM)[facility] AND EMBMN7503-14-10 06:46:00Slight *ABN*(09/06/18 12:46 AM)[facility] RUMVX9076-26-45 06:46:00Yellow *NA*(09/06/18 12:46 AM)[facility] AND UUWDZ5093-76-46 06:46:00* Test Item Value Reference Range Interpretation Comments UA Spec Grav (test code = UA Spec Grav) 1.023 1 [facility] DAJXA4665-36-15 06:46:00Negative (09/06/18 12:46 AM) [facility] TNDHL5764-26-51 06:46:00* Test Item Value Reference Range Interpretation Comments UA pH (test code = UA pH) 5.0 1 5.0-8.0 [facility] ADSAA8179-85-89 06:46:00Negative (09/06/18 12:46 AM) [facility] JWYPB9790-26-47 06:46:00Negative *NA*(09/06/18 12:46 AM)[facility] EPAQC3472-33-06 06:46:00Negative *NA*(09/06/18 12:46 AM)[facility] FHMLO6090-23-34 06:46:00Large *ABN*(09/06/18 12:46 AM)[facility]annCHEM UNHQY8430-04-16 10:22:001.9[facility] HermannELECTROLYTES 2018-08-28 10:22:0011.1[facility] RvpmxbiJUXCPQHZBXUW4490-94-40 10:22:90647 [facility] HdzreyxFUVMNYRTSVEO9766-12-36 10:22:008.4[facility] HermannELECTROLYTES 2018-08-28 10:22:0013[facility] VkokvqaLUWXZICTWQBZ0437-17-27 10:22:05662Tvoeuern WxiltbkXQGGLCDGTVTL9609-40-44 10:22:000.69[facility] QhsoeouZNSKPXKFCMSX5066-91-63 10:22:004.1[facility] CupbjukJOTLJFTTFNBV4168-10-46 10:22:0025[facility] SYEMYEWKVVOE2013-59-31 10:22:34713Jvmwlyyj ZbhxgolHTSEMSUBQWRI4417-76-30 10:22:41703Vizqcsgt OrrpmygXEZFZECFTU8484-41-75 10:22:00* Test Item Value Reference Range Interpretation Comments INR (test code = INR) 1.01 1 0.85-1.17 [facility] FhmgcjuCISQHFLZEL1564-77-50 10:22:00* Test Item Value Reference Range Interpretation Comments PTT (test code = PTT) 33.7 s 22.9-35.8 [facility] JurzcbmVBUOVPRDGF5580-23-04 10:22:00* Test Item Value Reference Range Interpretation Comments PT (test code = PT) 13.1 s 12.0-14.7 [facility] ZulekhdLNZHKSYKGF9083-79-30 10:22:0026.9[facility] HermannHEMATOLOGY 2018-08-28 10:22:002.1[facility] OpjxpzfNLLWOKZJAJ3203-42-21 10:22:006.7[facility] JeszrsxEWGCIWCVTN4849-51-94 10:22:009.3[facility] WekczfiRCTZPXSCJR1575-09-00 10:22:0056.2[facility] AllyaujVHHBDLKZWT5260-86-16 10:22:000.7[facility] THAMZKITBJ2203-67-30 10:22:000.5[facility] SpbaibzNVKMOBQPNZ4997-01-70 10:22:004.3 [facility] RquivcbDOQBPBQHKB7608-79-82 10:22:000.9[facility] HermannHEMATOLOGY 2018-08-28 10:22:000.1[facility] PzskyvhIYFJJNYVNU4565-49-80 10:22:008.1[facility] LpfjlxhATKIEOSIRK7264-79-32 10:22:0013.4[facility] XxpvpmjTRJHIWLJEP3149-79-62 10:22:28510Ezvsputo GaflcwhEHYAHCZULV6534-42-86 10:22:0033.2[facility] NHEQEOPSDY6228-76-72 10:22:0087.4[facility] MymhsccCKZRNFGLVB6364-29-14 10:22:00* Test Item Value Reference Range Interpretation Comments MCH (test code = MCH) 29.0 pg 27.0-31.0 [facility] CqdsrclIOFFDXLTNF0519-15-98 10:22:0041.5[facility] HermannHEMATOLOGY 2018-08-28 10:22:007.7[facility] RpqqwwgDNJLJPNXKH9870-41-51 10:22:004.74[facility] IswixjpPBEMPRKHBG9935-00-40 10:22:0013.8[facility] DolahcxLXCGAVPBRA3721-84-62 05:09:00* Test Item Value Reference Range Interpretation Comments PT (test code = PT) 12.9 s 12.0-14.7 [facility] WqljjwbVXNEGAMOIB4189-55-59 05:09:00* Test Item Value Reference Range Interpretation Comments INR (test code = INR) 0.99 1 0.85-1.17 [facility] HermannCHEM TXGFB5434-21-51 10:55:002.1[facility] HermannELECTROLYTES 2018-08-27 10:55:57747Keyduttz OekpxsrBCGNWZKABQTS9265-91-74 10:55:004.1[facility] JfnxyinTCDLIHLIZUTM3334-94-80 10:55:89417Rwzejahr UpkwelsMRCYJWSRYIQD8579-19-61 10:55:0012[facility] UlqnslqUUZTZWKJTVVF0761-18-33 10:55:0090[facility] ATZPCIZAGYKU0548-45-51 10:55:000.62[facility] EfwgqtiXGWNNWFAXREW4679-34-43 10:55:008.4[facility] YzbseaeSDPZWAZHUEDF4414-61-71 10:55:0028[facility] HRFQYVDZKKRS1288-44-57 10:55:73282Ccfxgdhs TehsboaAFXQSAYTEBYH1752-52-59 10:55:0012.1[facility] DnqeshwKMQPPEJVNN2071-54-42 10:55:007.7[facility] ASZNPCKTQO6769-58-39 10:55:0013.2[facility] EebczfrFHIMNUZHQG9211-60-78 10:55:00 4.56[facility] UzycxdbQLXGPJLCBU9754-99-57 10:55:0039.0[facility] HermannHEMATOLOGY 2018-08-27 10:55:0013.4[facility] AvqgybcAOOGWGLKOV2216-19-49 10:55:0033.9[facility] TlmfxbfJUBPLEKZJY2231-05-40 10:55:00* Test Item Value Reference Range Interpretation Comments MCH (test code = MCH) 28.9 pg 27.0-31.0 [facility] SqnuojmXZFPLULFQB7408-75-19 10:55:44149Xlanwvak HermannHEMATOLOGY 2018-08-27 10:55:0085.4[facility] IoxqzggQZAIZOIMOB2364-28-36 10:55:008.4[facility] PxpluohJVECFWCIOE4886-20-35 10:55:000.9[facility] WdscpjgGEHAOQTDDY5349-33-95 10:55:000.5[facility] UjitxbkAFWDYNJSVK5885-97-72 10:55:000.1[facility] NQVJCQBYNI5043-08-03 10:55:0011.1[facility] NavecrsPOCQYZYOBM0884-41-04 10:55:00 24.6[facility] FnzmmftMELJEEFIDH1641-21-18 10:55:0056.9[facility] HermannHEMATOLOGY 2018-08-27 10:55:001.1[facility] CftlmywXOKJXJVEXR7075-21-87 10:55:006.3[facility] ZfwtlihXKDYYGPQRS5089-21-66 10:55:004.4[facility] IhkvhklAIILJJSNSF1401-87-86 10:55:001.9[facility] XonljgfCMWSJZZRPK7480-84-93 05:18:00* Test Item Value Reference Range Interpretation Comments Morenita WADE (test code = Morenita WADE) 0000 1 [facility] WounzudYPWVBZZZRQ4906-20-73 05:18:0013.1[facility] HermannCHEM PANEL 2018-08-26 10:28:001.9[facility] HermannCHEM VVDUU4036-49-53 10:28:38256Brlcehkb HermannCHEM SMSQF4167-97-13 10:28:03545Yfifqxqs HermannCHEM MIYMR2150-41-19 10:28:0027[facility] HermannCHEM WTEJL8685-37-57 10:28:0012[facility] HermannCHEM PCAOJ5554-52-72 10:28:008.0[facility] HermannCHEM WEJLN6023-23-49 10:28:004.0 [facility] HermannCHEM EOXMA2179-46-18 10:28:07436Ngttroda HermannCHEM PANEL 2018-08-26 10:28:000.56[facility] HermannCHEM ZXKPP3766-13-47 10:28:0089[facility] HermannCHEM UCKAN3235-98-53 10:28:0011.0[facility] GiqydhdLBRPTMUGXW3299-14-19 10:28:000.8[facility] DpeogtzAUGGKJOTXI4734-75-31 10:28:000.5[facility] [place] SJQDBXCMST3087-25-92 10:28:000.1[facility] FeavewzOAJWYYEMEV4078-11-26 10:28:005.7 [facility] TdkxgtcMAQYFRZEAT9963-92-07 10:28:0023.6[facility] HermannHEMATOLOGY 2018-08-26 10:28:009.6[facility] FllzsqtQGSOKGQNDN2122-57-35 10:28:001.0[facility] FoxnhlpKQCVGMCMHR2419-70-75 10:28:005.2[facility] WrhdlnqYUUIELCRRG2997-49-89 10:28:002.1[facility] FgzzakiFCYGZZEPGR1008-47-38 10:28:0060.1[facility] YZKHYPDXCY6263-01-60 10:28:0013.3[facility] GothldgBVFHTLARSS9054-39-22 10:28:00 228[facility] McnrynpFLYPVSERGT1564-40-75 10:28:0038.0[facility] HermannHEMATOLOGY 2018-08-26 10:28:004.40[facility] GqodrziTEZYMJOHVT6108-89-78 10:28:008.7[facility] OvxftwwSWAOBAHTQY8072-30-48 10:28:0012.9[facility] NajmkuxBJSZMGSASE3530-74-31 10:28:00* Test Item Value Reference Range Interpretation Comments MCH (test code = MCH) 29.2 pg 27.0-31.0 [facility] MzsphmiHYEJRFDXFU6227-08-91 10:28:0086.2[facility] HermannHEMATOLOGY 2018-08-26 10:28:0033.9[facility] FkwddjeTPWYPDYHIA3072-00-43 10:28:008.2[facility] JvutxtpGNFTXDFEAX3683-13-73 19:34:00* Test Item Value Reference Range Interpretation Comments Vanco Tr TND (test code = Vanco Tr TND) 1330 1 [facility] EvphiqqHQATAZGBUT6764-18-71 19:34:0015.8[facility] HermannCHEM PANEL 2018-08-25 10:41:003.7[facility] HermannCHEM WGBEH0303-39-79 10:41:00* Test Item Value Reference Range Interpretation Comments B/C Ratio (test code = B/C Ratio) 24 1 6-25 [facility] HermannCHEM OOQDL1326-98-67 10:41:00* Test Item Value Reference Range Interpretation Comments A/G Ratio (test code = A/G Ratio) 0.8 1 0.7-1.6 [facility] HermannCHEM FGTZT1752-40-54 10:41:003.6[facility] HermannCHEM PANEL 2018-08-25 10:41:000.3[facility] HermannCHEM FMKKU7718-65-07 10:41:0077[facility] HermannCHEM UHBJN5837-54-27 10:41:0019[facility] HermannCHEM PFUNL7303-13-98 10:41:0023[facility] HermannCHEM KKTLK8011-38-93 10:41:002.8[facility] HermannCHEM ALPCN2108-00-97 10:41:006.4[facility] HermannCHEM VYQNN5721-01-06 23:22:00<0.05 [facility]annCHEM KFRQN5346-81-85 23:22:001.1[facility] HermannIMMUNOLOGY 2018-08-24 23:22:00Negative *NA*(08/24/18 5:22 PM)[facility]annCHEM PANEL 2018-08-24 17:20:002.2[facility] HermannCHEM TLLQJ5266-36-30 10:15:007.8[facility] HermannCHEM OKMQT0446-21-81 10:15:003.8[facility] HermannCHEM CPYKX1529-17-89 10:15:0099[facility] HermannCHEM LNMCO1677-29-24 10:15:000.3[facility] HermannCHEM WLOOH1583-02-64 10:15:0018[facility] HermannCHEM DZWOO5219-73-64 10:15:0021 [facility]annCHEM VPDKI3798-68-04 10:15:004.0[facility] HermannCHEM PANEL 2018-08-24 10:15:00* Test Item Value Reference Range Interpretation Comments A/G Ratio (test code = A/G Ratio) 1.0 1 0.7-1.6 [facility] HermannCHEM OIEUU8051-55-37 10:15:00* Test Item Value Reference Range Interpretation Comments B/C Ratio (test code = B/C Ratio) 17 1 6-25 [facility] ZrxzsoiRXNVIZBEKBWBL6098-34-51 10:15:00Negative *NA*(08/24/18 4:15 AM) [facility] KuafiroAHUNSDDEQT4371-19-37 10:15:00Normal (08/24/18 4:15 AM)[facility] ZnendkyNWZITAYTEO6103-66-51 10:15:00Normal (08/24/18 4:15 AM)[facility] Charles SPECIAL VFENTDTFB8626-19-40 10:15:005.3[facility] AlogrbhFOCVUPNDKHZW5395-54-21 08:00:0012.2[facility] GnamcpdTVIOGTXLQFNO2210-44-20 08:00:52893Luhkomjq [facility] JYSWLCXBLCQR5327-72-18 08:00:0089[facility] FvfyhzgFDURAUXHWWNM1177-54-97 08:00:00 4.2[facility] PxsxjuiWVBYUXHWDVGM8057-35-69 08:00:77766Laewqfvj [place] TFOZSRTIFDYO7932-81-96 08:00:000.72[facility] HwgmubiISJDPFYMEYZK0083-81-17 08:00:38874Luzhfmvz GafxirdYWRVFUOTFEPT3501-95-08 08:00:009[facility] [place] TVSZNXEVCBSJ8323-60-04 08:00:0029[facility] DyrgnqmDIBCRVGEVEMD7379-49-72 08:00:00 8.2[facility] RxpjcsrJGPLVQYDXB7990-96-92 08:00:000.3[facility] HermannHEMATOLOGY 2018-05-21 08:00:000.8[facility] FdydqfnAANFJRCVHX4757-63-75 08:00:000.1[facility] CwvrffqIIYLOJVHVT0887-71-59 08:00:0032.9[facility] VavvqfuIKXUUJILUN5895-56-74 08:00:0050.8[facility] KiicoiiLYOXPGTIVL6069-94-74 08:00:002.3[facility] [place] QQRVSLZSMS1678-24-80 08:00:003.6[facility] RukrvjtCRWHVKVMEE8189-82-74 08:00:000.8 [facility] MamqjzyRVRVOQTTJT5889-46-06 08:00:004.8[facility] HermannHEMATOLOGY 2018-05-21 08:00:0010.7[facility] MbyatzuFYIWKQFJKX5287-39-39 08:00:0035.3[facility] WrisygfQLLUWFWNWX6128-04-55 08:00:76374Zhwdfyul LhbyhvwBKJUSENEXL3809-36-53 08:00:0012.9[facility] PanvgtnRRHACRCLTS6723-12-30 08:00:0085.6[facility] WSSCMNQQFJ7664-16-84 08:00:0034.4[facility] XkyqlsiRVAXJQMBLC9695-36-42 08:00:00* Test Item Value Reference Range Interpretation Comments MCH (test code = MCH) 29.4 pg 27.0-31.0 [facility] RuvzrjjLDUHHTVPGY0332-57-97 08:00:008.4[facility] HermannHEMATOLOGY 2018-05-21 08:00:004.12[facility] UvlzdtsSOYCDUDWGV0311-01-58 08:00:007.1[facility] NbkbvxnAYJJYYUSXC4747-09-33 08:00:0012.1[facility] NtbxmuaJMVPPRWKGG4432-88-81 07:31:0015.7[facility] KhwtrlyMPYFQBBYUT9697-42-36 07:31:00* Test Item Value Reference Range Interpretation Comments Morenita WADE (test code = Morenita WADE) 0300 1 [facility] QanwgvgFABPYPLIYZKN6233-84-77 08:22:0010.9[facility] HermannELECTROLYTES 2018-05-20 08:22:26777Xelmjafm EkyhrqrDJIWNJZQBLTO0669-17-47 08:22:0026[facility] BisinofXNPWPVKEFXLS4260-58-81 08:22:18499Lxnxvcac KilxhnkNGQOCWIZOMHJ5024-60-44 08:22:80841Vdlpoogy BltfsdoQKEVMRNEXOZT3425-80-87 08:22:003.9[facility] [place] DUGXDNRNBENG5624-19-47 08:22:008.0[facility] OpyikzuMBJPSIJFNOME3411-68-90 08:22:000.59[facility] DhqwehjTNQOIXKPEZDT6843-94-16 08:22:0094[facility] SMGTLVWTHUBV6551-02-67 08:22:009[facility] HrggaezSEKUJQMNSR3532-48-70 08:22:00 55.0[facility] AuodvnfAKAUFYKHHL4673-72-88 08:22:0031.9[facility] HermannHEMATOLOGY 2018-05-20 08:22:002.3[facility] FlqnkthXRELGVNSKW9367-90-86 08:22:009.9[facility] RlzlqubEWTGEDXEYG5505-66-28 08:22:000.7[facility] IagknvxFYRJRVZUFM7011-37-66 08:22:002.4[facility] MbrfmpbCITTTSJOJA9160-49-30 08:22:000.1[facility] FKYXOZDILT8010-01-95 08:22:000.2[facility] OtfiohkCWXRDFQGJC2265-01-30 08:22:004.1 [facility] PremktnIBMCRHIEXT6024-34-83 08:22:000.9[facility] HermannHEMATOLOGY 2018-05-20 08:22:00* Test Item Value Reference Range Interpretation Comments MCH (test code = MCH) 29.8 pg 27.0-31.0 [facility] FnvymyxSHJBLZIXUK4249-34-44 08:22:0086.8[facility] HermannHEMATOLOGY 2018-05-20 08:22:003.85[facility] KfkhhsqUFJLNICSFX3598-47-46 08:22:007.4[facility] JyznjivDEAQEZTTJH1907-77-98 08:22:0033.4[facility] PanednaTOXCEIIHDO2257-71-91 08:22:0011.5[facility] JwpjyfdRSVNDVTFRH2909-95-45 08:22:0012.9[facility] ROOIYSRDHX8475-24-44 08:22:0034.3[facility] FqswjgdGDQDRGFHDY3424-54-86 08:22:00 8.7[facility] FwezvaxBRRAJVNWDT0032-25-43 08:22:18356Bwbvxrxq HermannELECTROLYTES 2018-05-19 06:30:0014.4[facility] IiodvsvRNBUWRWLWYFZ2770-22-48 06:30:39927 [facility] RiffmbfPNTCPPWGAACV9815-33-20 06:30:008.2[facility] HermannELECTROLYTES 2018-05-19 06:30:004.4[facility] JfeodfzOPYCTJBMKJTI7572-59-99 06:30:49172Gnilpjpl BflstyiWWEBIBRHLXHD9725-93-60 06:30:0025[facility] OvykwroXFNIZVDZDCIB5214-78-05 06:30:94619Islnrgqx GhtsocqMLWPYJSFPEBA1952-29-01 06:30:007[facility] RGQRNSOKLQBC2962-26-45 06:30:31105Arzpmfhs JkofmizTMEVKQBFNXRN3660-88-77 06:30:000.73[facility] SebwblmGSDXXCSRQF0801-29-87 06:30:000.3[facility] RMHPJJCBVV8266-86-03 06:30:000.1[facility] DdwbbedYXNKSQGRTW7864-44-01 06:30:00 83.5[facility] VqkpfqmMVVIVGGDTJ2592-21-28 06:30:009.1[facility] HermannHEMATOLOGY 2018-05-19 06:30:007.0[facility] TwyvqjoWZDNAQHNDN8087-15-62 06:30:008.9[facility] XbgcwzvWUHFJFRVYS1401-05-50 06:30:000.7[facility] RvqzdxbSIKZXDZLCL5616-08-59 06:30:001.0[facility] PewjfisZGJFOGCPHC8349-71-96 06:30:008.4[facility] HUMPHQPGRY8627-22-02 06:30:72718Qhadoqag NjowcqfXJXVZYPSUV8797-19-53 06:30:00 12.8[facility] AyvbvmxXHBUVIEZDN0995-01-13 06:30:0033.2[facility] HermannHEMATOLOGY 2018-05-19 06:30:0010.6[facility] OrjsetcKGHNSMFHSL8237-74-84 06:30:0088.3[facility] MjaxshzRUBMRUDESU1029-81-08 06:30:0038.9[facility] TttaephLLAOMXZVAV5380-70-08 06:30:004.41[facility] SrndcdcODFMOFIMMI1602-27-74 06:30:00* Test Item Value Reference Range Interpretation Comments MCH (test code = MCH) 29.3 pg 27.0-31.0 [facility] WayfrtxGTZWFWIYBV7532-94-36 06:30:0012.9[facility] HermannTOXICOLOGY 2018-05-19 06:30:00* Test Item Value Reference Range Interpretation Comments Morenita Storey TND (test code = Vanco Tr TND) 0200 1 [facility] CatbsafUDZVZTJOJF8320-93-13 06:30:006.6[facility] HermannTOXICOLOGY 2018-05-18 20:36:0027.1[facility] [place] AMPICILLIN+SULBACTAM:SUSC:PT:ISOLATE:ORDQN:SMB8126-34-48 18:30:00Staphylococcus aureusMemorial HermannCHEM PGVQM8583-63-86 08:51:001.9[facility] HermannCHEM PANEL 2018-05-17 08:51:00* Test Item Value Reference Range Interpretation Comments B/C Ratio (test code = B/C Ratio) 16 1 6-25 [facility] HermannCHEM QHFXC7666-43-42 08:51:007.0[facility] HermannCHEM PANEL 2018-05-17 08:51:004.0[facility] HermannCHEM MRFRW4169-15-41 08:51:003.0[facility] HermannCHEM YBJIY6732-46-36 08:51:0011[facility] HermannCHEM EZDZW4569-63-95 08:51:000.4[facility] HermannCHEM ZDFOF9261-89-30 08:51:0066[facility] HermannCHEM OKIHF8201-22-03 08:51:0019[facility] HermannCHEM ZHTFD5800-90-08 08:51:00* Test Item Value Reference Range Interpretation Comments A/G Ratio (test code = A/G Ratio) 0.8 1 0.7-1.6 [facility]hxvcpaQDPITPNUBN3649-57-45 08:51:00* Test Item Value Reference Range Interpretation Comments INR (test code = INR) 1.14 1 0.85-1.17 [facility] HospitalJuhlurxBCBYBSMCXC1473-14-90 08:51:00* Test Item Value Reference Range Interpretation Comments PT (test code = PT) 14.6 s 12.0-14.7 [facility] HospitalQtklnzhQCSQVYOGDI0527-29-38 08:51:00* Test Item Value Reference Range Interpretation Comments PTT (test code = PTT) 36.4 s 22.9-35.8 [facility] OsylzmxJIIURTFGUS1886-02-94 08:51:000.1[facility] HermannHEMATOLOGY 2018-05-17 08:51:000.3[facility] HermannCHEM BXVYZ8235-53-35 06:46:001.3[facility] HermannCHEM XKFYC4474-87-64 05:24:004.1[facility] HermannCHEM VLIKD1842-80-17 05:24:00* Test Item Value Reference Range Interpretation Comments A/G Ratio (test code = A/G Ratio) 0.8 1 0.7-1.6 [facility] HermannCHEM IEBKG2944-34-36 05:24:00* Test Item Value Reference Range Interpretation Comments B/C Ratio (test code = B/C Ratio) 13 1 6-25 [facility] HermannCHEM AOOGP1295-98-85 05:24:0021[facility] HermannCHEM PANEL 2018-05-17 05:24:0014[facility] HermannCHEM FIKVD9238-15-12 05:24:0071[facility] HermannCHEM QRAYH9625-26-63 05:24:000.2[facility] HermannCHEM NKXDS3794-10-19 05:24:003.2[facility] HermannCHEM GVCWH5652-48-21 05:24:007.3[facility] [place] YBWIIXZPYCYHF4906-61-33 05:24:00Negative *NA*(05/17/18 12:24 AM)[facility] CT ABDOMEN/PELVIS K3144-58-93 19:32:00 [place] [address] Patient Name: COLLEEN OJHNSON MR #: [id number] : 1985 Age/Sex: 32/F Req #: [id number] Adm Physician: Ordered by: FELICIA DELGADO MD Report #: [id number] Location: Room/Bed: Procedure: [id number] CT/CT ABDOMEN/PELVIS W Exam Date: 02/07/18 Exam Time: [address] ATUS: Signed EXAM: CT ABDOMEN/PELVIS [...] 02/07/181934 COPY TO: FELICIA DELGADO MD Urine Trwamvc5322-46-35 15:50:00* Test Item Value Reference Range Interpretation Comments Urine Clarity (test code = 76213-1) CLOUDY CLEAR [facility] XCF4117-02-58 15:50:00* Test Item Value Reference Range Interpretation Comments Urine WBC (test code = 5821-4) NONE 0-[address] [facility] MUH1930-66-15 15:50:00* Test Item Value Reference Range Interpretation Comments Urine RBC (test code = 73956-7) 0-5 0-[address] [facility] Jmxswcsg5673-79-19 15:50:00* Test Item Value Reference Range Interpretation Comments Urine Bacteria (test code = 45667-2) RARE NONE [facility] Epithelial Kbtpj4547-35-76 15:50:00 * Test Item Value Reference Range Interpretation Comments Urine Epithelial Cells (test code = 46191-4) RARE NONE [facility] Amorphous Bgelwhgj2991-23-34 15:50:00* Test Item Value Reference Range Interpretation Comments Urine Amorphous Sediment (test code = 8246-1) MANY FEW H [facility] Kdnauju7542-84-54 15:50:00* Test Item Value Reference Range Interpretation Comments Urine Clarity (test code = 07117-4) CLOUDY CLEAR H [facility] AJX0932-55-46 15:50:00* Test Item Value Reference Range Interpretation Comments Urine WBC (test code = 5821-4) NONE 0-[address] [facility] YIK9611-70-17 15:50:00* Test Item Value Reference Range Interpretation Comments Urine RBC (test code = 86186-5) 0-5 0-[address] [facility] Shmxefry6426-74-69 15:50:00* Test Item Value Reference Range Interpretation Comments Urine Bacteria (test code = 02903-5) RARE NONE [facility] Epithelial Obeno2388-23-69 15:50:00 * Test Item Value Reference Range Interpretation Comments Urine Epithelial Cells (test code = 65978-2) RARE NONE [facility] HospitalU[facility] Amorphous Jtjcailw3454-18-42 15:50:00* Test Item Value Reference Range Interpretation Comments Urine Amorphous Sediment (test code = 8246-1) M[facility] FEW [facility] Dffcw8885-08-73 15:44:00* Test Item Value Reference Range Interpretation Comments Sodium Level (test code = 2951-2) 139 136-[address] [facility]Potassium Xeung4279-41-38 15:44:00* Test Item Value Reference Range Interpretation Comments Potassium Level (test code = 2823-3) 3.6 3.5-5.[address] [facility] HospitalChloride Btgls3936-92-33 15:44:00* Test Item Value Reference Range Interpretation Comments Chloride Level (test code = 2075-0) 107 98-[address] [facility] HospitalCarbon Dioxide Qczoq5212-53-01 15:44:00* Test Item Value Reference Range Interpretation Comments Carbon Dioxide Level (test code = 2028-9) 24 22-[address] [facility] HospitalAnion Qus5711-88-09 15:44:00* Test Item Value Reference Range Interpretation Comments Anion Gap (test code = 69653-2) 11.6 8-[address] [facility]Blood Urea Bfxafjhr1073-85-76 15:44:00* Test Item Value Reference Range Interpretation Comments Blood Urea Nitrogen (test code = 3094-0) 15 - [facility] HospitalCreatinine2018-06-24 15:44:00* Test Item Value Reference Range Interpretation Comments Creatinine (test code = 2160-0) 0.78 0.57-1.[address] [facility] HospitalBUN/Creatinine Hbmfp3267-79-67 15:44:00* Test Item Value Reference Range Interpretation Comments BUN/Creatinine Ratio (test code = 3097-3) [address] [facility] [address] [facility] HospitalEstimat Glomerular Filtration Rate 2018-02-07 15:44:00* Test Item Value Reference Range Interpretation Comments Estimat Glomerular Filtration Rate (test code = 71235-4) 60- >60 Ranges were taken from the National Kidney Disease Education Program and the [facility] Kidney Foundation literature.Reference ranges:60 or greater: Lfergs04-56 ( for 3 consecutive months): Chronic kidney disease 15 or less: Kidney failureMission Trail Baptist HospitalGlucose Antns2018-64-85 15:44:00* Test Item Value Reference Range Interpretation Comments Glucose Level (test code = YME1022) 95 74-[address] [facility] HospitalCalcium Mvnsl0928-76-89 15:44:00* Test Item Value Reference Range Interpretation Comments Calcium Level (test code = 38139-1) 8.9 8.4-10.[address] [facility] HospitalTotal Uiwxiytan9890-79-35 15:44:00* Test Item Value Reference Range Interpretation Comments Total Bilirubin (test code = 1975-2) 0.4 0.2-1.[address] [facility] HospitalAspartate Amino Transf (AST/SGOT) 2018-02-07 15:44:00* Test Item Value Reference Range Interpretation Comments Aspartate Amino Transf (AST/SGOT) (test code = Aspartate Amino Transf (AST/SGOT)) 29 5-[address] [facility] HospitalAlanine Aminotransferase (ALT/SGPT) 2018-02-07 15:44:00* Test Item Value Reference Range Interpretation Comments Alanine Aminotransferase (ALT/SGPT) (test code = 1742-6) 55 0-[address] [facility] HospitalTotal Lenrpbq6157-24-50 15:44:00* Test Item Value Reference Range Interpretation Comments Total Protein (test code = 2885-2) 6.8 6.5-8.[address] [facility] 15:44:00* Test Item Value Reference Range Interpretation Comments Albumin (test code = 1751-7) 3.5 3.5-5.[address] [facility] 15:44:00* Test Item Value Reference Range Interpretation Comments Globulin (test code = 80846-0) 3.3 2.3-3.[address] [facility]Globulin Mnetj9001-23-57 15:44:00 * Test Item Value Reference Range Interpretation Comments Albumin/Globulin Ratio (test code = 1759-0) 1.1 0.8-2.[address] [facility]Alkaline Pxlmjcrwqzq1474-58-86 15:44:00* Test Item Value Reference Range Interpretation Comments Alkaline Phosphatase (test code = 6768-6) 62 40-150 [facility] Jmrya3162-38-77 15:44:00* Test Item Value Reference Range Interpretation Comments Sodium Level (test code = 2951-2) 139 136-[address] [facility]Potassium Qlyjw3824-21-40 15:44:00* Test Item Value Reference Range Interpretation Comments Potassium Level (test code = 2823-3) 3.6 3.5-5.[address] [facility]Chloride Cgvep7678-01-99 15:44:00* Test Item Value Reference Range Interpretation Comments Chloride Level (test code = 2075-0) 107 98-[address] [facility] HospitalCarbon Dioxide Yqqsc7087-30-45 15:44:00* Test Item Value Reference Range Interpretation Comments Carbon Dioxide Level (test code = 2028-9) 24 22-[address] [facility] HospitalAnion Tut6997-00-59 15:44:00* Test Item Value Reference Range Interpretation Comments Anion Gap (test code = 76770-1) 11.6 8-[address] [facility]Blood Urea Etspoaws1744-32-71 15:44:00* Test Item Value Reference Range Interpretation Comments Blood Urea Nitrogen (test code = 3094-0) 15 7- [facility] HospitalCreatinine2018-06-24 15:44:00* Test Item Value Reference Range Interpretation Comments Creatinine (test code = 2160-0) 0.78 0.57-1.[address] [facility]BUN/Creatinine Sqdjr5236-84-50 15:44:00* Test Item Value Reference Range Interpretation Comments BUN/Creatinine Ratio (test code = 3097-3) 19 6- [facility] HospitalEstimat Glomerular Filtration Rate 2018-02-07 15:44:00* Test Item Value Reference Range Interpretation Comments Estimat Glomerular Filtration Rate (test code = 55953-2) 60- >60 Ranges were taken from the National Kidney Disease Education Program and the [facility] literature.Reference ranges:60 or greater: Tfkigv82-40 ( for 3 consecutive months): Chronic kidney disease 15 or less: Kidney failureM[facility] [address] [facility] HospitalGlucose Gxuky1232-20-40 15:44:00* Test Item Value Reference Range Interpretation Comments Glucose Level (test code = XZU6577) 95 74-[address] [facility] HospitalCalcium Urhqr6778-90-31 15:44:00* Test Item Value Reference Range Interpretation Comments Calcium Level (test code = 08391-6) 8.9 8.4-10.2 [facility] Ueskxvwbo4867-72-16 15:44:00* Test Item Value Reference Range Interpretation Comments Total Bilirubin (test code = 1975-2) 0.4 0.2-1.[address] [facility] HospitalAspartate Amino Transf (AST/SGOT) 2018-02-07 15:44:00* Test Item Value Reference Range Interpretation Comments Aspartate Amino Transf (AST/SGOT) (test code = Aspartate Amino Transf (AST/SGOT)) 29 5-[address] [facility] HospitalAlanine Aminotransferase (ALT/SGPT) 2018-02-07 15:44:00* Test Item Value Reference Range Interpretation Comments Alanine Aminotransferase (ALT/SGPT) (test code = 1742-6) 55 0-[address] [facility]Total Dkjsdsa1252-03-32 15:44:00* Test Item Value Reference Range Interpretation Comments Total Protein (test code = 2885-2) 6.8 6.5-8.[address] [facility] HospitalAlbumin2018-06-24 15:44:00* Test Item Value Reference Range Interpretation Comments Albumin (test code = 1751-7) 3.5 3.5-5.[address] [facility] HospitalGlobulin2018-06-24 15:44:00* Test Item Value Reference Range Interpretation Comments Globulin (test code = 61812-6) 3.3 2.3-3.[address] [facility] HospitalAlbumin/Globulin Bgmsl8899-14-46 15:44:00 * Test Item Value Reference Range Interpretation Comments Albumin/Globulin Ratio (test code = 1759-0) 1.1 0.8-2.[address] [facility] HospitalAlkaline Knypcfzafwr1159-43-27 15:44:00* Test Item Value Reference Range Interpretation Comments Alkaline Phosphatase (test code = 6768-6) 62 40-150 [facility] Chorionic Gonadotropin, Qual 2018-02-07 15:37:00* Test Item Value Reference Range Interpretation Comments Human Chorionic Gonadotropin, Qual (test code = 2118-8) NEGATIVE NEGATIVE [facility] Chorionic Gonadotropin, Qual 2018-02-07 15:37:00* Test Item Value Reference Range Interpretation Comments Human Chorionic Gonadotropin, Qual (test code = 2118-8) NEGATIVE NEGATIVE [facility] Wmphh2733-31-94 15:35:00* Test Item Value Reference Range Interpretation Comments Urine Color (test code = 5778-6) YELLOW YELLOW [facility] Hvprpvv2800-28-29 15:35:00 * Test Item Value Reference Range Interpretation Comments Urine Specific [place] (test code = 5811-5) 1.030 1.010-1.[address] [facility] cE2602-70-29 15:35:00* Test Item Value Reference Range Interpretation Comments Urine pH (test code = 65603-9) 6 5-[address] [facility] Leukocyte Xgnkbggn1905-16-77 15:35:00* Test Item Value Reference Range Interpretation Comments Urine Leukocyte Esterase (test code = 5799-2) NEGATIVE NEGATIVE [facility] Lqzvuya5748-76-04 15:35:00* Test Item Value Reference Range Interpretation Comments Urine Nitrite (test code = 24493-3) NEGATIVE NEGATIVE [facility] Iqhobcz3194-70-17 15:35:00* Test Item Value Reference Range Interpretation Comments Urine Protein (test code = 5804-0) 1+ NEGATIVE H [facility] Glucose (UA)2018-02-07 15:35:00* Test Item Value Reference Range Interpretation Comments Urine Glucose (UA) (test code = 2349-9) NEGATIVE NEGATIVE [facility] Saofykx8768-63-76 15:35:00* Test Item Value Reference Range Interpretation Comments Urine Ketones (test code = 85705-8) 1+ NEGATIVE H [facility] Arqtgyacravv3789-33-05 15:35:00* Test Item Value Reference Range Interpretation Comments Urine Urobilinogen (test code = 64325-1) 0.2 0.2-[address] [facility] Nxoflouva7255-17-24 15:35:00* Test Item Value Reference Range Interpretation Comments Urine Bilirubin (test code = 1978-6) 1+ NEGATIVE H [facility] Khqmc1886-51-69 15:35:00* Test Item Value Reference Range Interpretation Comments Urine Blood (test code = 78434-1) 1+ NEGATIVE H [facility] Bltko1948-93-40 15:35:00* Test Item Value Reference Range Interpretation Comments Urine Color (test code = 5778-6) YELLOW YELLOW [facility] Specific Hfrujee0926-24-94 15:35:00 * Test Item Value Reference Range Interpretation Comments Urine Specific [place] (test code = 5811-5) 1.030 1.010-1.[address] [facility] vW3475-84-39 15:35:00* Test Item Value Reference Range Interpretation Comments Urine pH (test code = 65609-5) 6 5-7 [facility] Leukocyte Znlttpns8966-79-03 15:35:00* Test Item Value Reference Range Interpretation Comments Urine Leukocyte Esterase (test code = 5799-2) NEGATIVE NEGATIVE [facility] Tmhvjyx4346-44-49 15:35:00* Test Item Value Reference Range Interpretation Comments Urine Nitrite (test code = 46593-9) NEGATIVE NEGATIVE [facility] Exelkwj0625-80-18 15:35:00* Test Item Value Reference Range Interpretation Comments Urine Protein (test code = 5804-0) 1+ NEGATIVE H [facility] Glucose (UA)2018-02-07 15:35:00* Test Item Value Reference Range Interpretation Comments Urine Glucose (UA) (test code = 2349-9) NEGATIVE NEGATIVE [facility] Yqibyrv3697-43-58 15:35:00* Test Item Value Reference Range Interpretation Comments Urine Ketones (test code = 05583-1) 1+ NEGATIVE H [facility] Angfhdbmdnls2535-04-66 15:35:00* Test Item Value Reference Range Interpretation Comments Urine Urobilinogen (test code = 50946-8) 0.2 0.2-[address] [facility] Bsvedupor1404-61-08 15:35:00* Test Item Value Reference Range Interpretation Comments Urine Bilirubin (test code = 1978-6) 1+ NEGATIVE H [facility] Lykdm7491-68-46 15:35:00* Test Item Value Reference Range Interpretation Comments Urine Blood (test code = 84036-9) 1+ NEGATIVE H [facility] Blood Oksln8467-54-81 15:21:00* Test Item Value Reference Range Interpretation Comments White Blood Count (test code = 6690-2) 8.40 4.8-10.[address] [facility] Utyvj6220-82-62 15:21:00* Test Item Value Reference Range Interpretation Comments Red Blood Count (test code = 789-8) 4.67 3.6-5.[address] [facility]oglobin2018-06-24 15:21:00* Test Item Value Reference Range Interpretation Comments Hemoglobin (test code = 16100-1) 13.8 12.0-16.[address] [facility]Hematocrit2018-06-24 15:21:00* Test Item Value Reference Range Interpretation Comments Hematocrit (test code = 4544-3) 41.0 34.2-44.[address] [facility]Mean Corpuscular Tnmlri5989-12-92 15:21:00* Test Item Value Reference Range Interpretation Comments Mean Corpuscular Volume (test code = 787-2) 87.8 81-[address] [facility] Corpuscular Yrngpkyzbk7938-97-20 15:21:00* Test Item Value Reference Range Interpretation Comments Mean Corpuscular Hemoglobin (test code = 785-6) 29.6 28-[address] [facility]Mean Corpuscular Hemoglobin Concent 2018-02-07 15:21:00* Test Item Value Reference Range Interpretation Comments Mean Corpuscular Hemoglobin Concent (test code = 786-4) 33.7 31-[address] [facility]Red Cell Distribution Mmeco6070-00-95 15:21:00* Test Item Value Reference Range Interpretation Comments Red Cell Distribution Width (test code = 05398-8) 12.7 11.7 -14.[address] [facility] HospitalPlatelet Eeagd3271-77-55 15:21:00* Test Item Value Reference Range Interpretation Comments Platelet Count (test code = 777-3) 229 140-[address] [facility] HospitalNeutrophils (%) (Auto)2018-02-07 15:21:00 * Test Item Value Reference Range Interpretation Comments Neutrophils (%) (Auto) (test code = 18507-9) 68.1 38.7-80.[address] [facility] HospitalLymphocytes (%) (Auto)2018-02-07 15:21:00 * Test Item Value Reference Range Interpretation Comments Lymphocytes (%) (Auto) (test code = 736-9) 20.1 18.0-39.[address] [facility]Mon[facility] (%) (Auto)2018-02-07 15:21:00* Test Item Value Reference Range Interpretation Comments Monocytes (%) (Auto) (test code = 5905-5) 7.6 4.4-11.[address] [facility] HospitalEosinophils (%) (Auto)2018-02-07 15:21:00 * Test Item Value Reference Range Interpretation Comments Eosinophils (%) (Auto) (test code = 713-8) 3.6 0.0-6.[address] [facility] HospitalBas[facility] (%) (Auto)2018-02-07 15:21:00* Test Item Value Reference Range Interpretation Comments Basophils (%) (Auto) (test code = 706-2) 0.2 0.0-1.[address] [facility] HospitalIM GRANULOCYTES %2018-02-07 15:21:00* Test Item Value Reference Range Interpretation Comments IM GRANULOCYTES % (test code = IM GRANULOCYTES %) 0.4 0.0- 1.[address] [facility] HospitalNeutrophils # (Auto)2018-02-07 15:21:00* Test Item Value Reference Range Interpretation Comments Neutrophils # (Auto) (test code = 751-8) 5.7 2.1-6.[address] [facility] HospitalLymphocytes # (Auto)2018-02-07 15:21:00* Test Item Value Reference Range Interpretation Comments Lymphocytes # (Auto) (test code = 55152-8) 1.7 1.0-3.[address] [facility]Monocytes # (Auto)2018-02-07 15:21:00* Test Item Value Reference Range Interpretation Comments Monocytes # (Auto) (test code = 742-7) 0.6 0.2-0.[address] [facility] HospitalEosinophils # (Auto)2018-02-07 15:21:00* Test Item Value Reference Range Interpretation Comments Eosinophils # (Auto) (test code = 711-2) 0.3 0.0-0.[address] [facility] HospitalBasophils # (Auto)2018-02-07 15:21:00* Test Item Value Reference Range Interpretation Comments Basophils # (Auto) (test code = 704-7) 0.0 0.0-0.[address] [facility] HospitalAbsolute Immature Granulocyte (auto 2018-02-07 15:21:00* Test Item Value Reference Range Interpretation Comments Absolute Immature Granulocyte (auto (tristan t code = Absolute Immature Granulocyte (auto) 0.03 0-0.[address] [facility] HospitalWhite Blood Xipzv9234-64-09 15:21:00* Test Item Value Reference Range Interpretation Comments White Blood Count (test code = 6690-2) 8.40 4.8-10.[address] [facility] HospitalRed Blood Puukg3315-38-22 15:21:00* Test Item Value Reference Range Interpretation Comments Red Blood Count (test code = 789-8) 4.67 3.6-5.[address] [facility] HospitalHemoglobin2018-06-24 15:21:00* Test Item Value Reference Range Interpretation Comments Hemoglobin (test code = 54740-4) 13.8 12.0-16.[address] [facility] HospitalHematocrit2018-06-24 15:21:00* Test Item Value Reference Range Interpretation Comments Hematocrit (test code = 4544-3) 41.0 34.2-44.[address] [facility] HospitalMean Corpuscular Jenplx4157-89-17 15:21:00* Test Item Value Reference Range Interpretation Comments Mean Corpuscular Volume (test code = 787-2) 87.8 81-[address] [facility] HospitalMean Corpuscular Hcmfytnfxc5454-43-71 15:21:00* Test Item Value Reference Range Interpretation Comments Mean Corpuscular Hemoglobin (test code = 785-6) 29.6 28-[address] [facility] HospitalMean Corpuscular Hemoglobin Concent 2018-02-07 15:21:00* Test Item Value Reference Range Interpretation Comments Mean Corpuscular Hemoglobin Concent (test code = 786-4) 33.7 31-[address] [facility] HospitalRed Cell Distribution Zabvw1690-09-44 15:21:00* Test Item Value Reference Range Interpretation Comments Red Cell Distribution Width (test code = 31638-0) 12.7 11.7 -14.[address] [facility] HospitalPlatelet Ijtbl6836-24-06 15:21:00* Test Item Value Reference Range Interpretation Comments Platelet Count (test code = 777-3) 229 140-[address] [facility] HospitalNeutrophils (%) (Auto)2018-02-07 15:21:00 * Test Item Value Reference Range Interpretation Comments Neutrophils (%) (Auto) (test code = 35248-6) 68.1 38.7-80.[address] [facility] HospitalLymphocytes (%) (Auto)2018-02-07 15:21:00 * Test Item Value Reference Range Interpretation Comments Lymphocytes (%) (Auto) (test code = 736-9) 20.1 18.0-39.[address] [facility] HospitalMonocytes (%) (Auto)2018-02-07 15:21:00* Test Item Value Reference Range Interpretation Comments Monocytes (%) (Auto) (test code = 5905-5) 7.6 4.4-11.[address] [facility] HospitalEosinophils (%) (Auto)2018-02-07 15:21:00 * Test Item Value Reference Range Interpretation Comments Eosinophils (%) (Auto) (test code = 713-8) 3.6 0.0-6.[address] [facility] HospitalBasophils (%) (Auto)2018-02-07 15:21:00* Test Item Value Reference Range Interpretation Comments Basophils (%) (Auto) (test code = 706-2) 0.2 0.0-1.[address] [facility] HospitalIM GRANULOCYTES %2018-02-07 15:21:00* Test Item Value Reference Range Interpretation Comments IM GRANULOCYTES % (test code = IM GRANULOCYTES %) 0.4 0.0- 1.[address] [facility] HospitalNeutrophils # (Auto)2018-02-07 15:21:00* Test Item Value Reference Range Interpretation Comments Neutrophils # (Auto) (test code = 751-8) 5.7 2.1-6.[address] [facility] HospitalLymphocytes # (Auto)2018-02-07 15:21:00* Test Item Value Reference Range Interpretation Comments Lymphocytes # (Auto) (test code = 29156-9) 1.7 1.0-3.[address] [facility] HospitalMonocytes # (Auto)2018-02-07 15:21:00* Test Item Value Reference Range Interpretation Comments Monocytes # (Auto) (test code = 742-7) 0.6 0.2-0.[address] [facility] HospitalEosinophils # (Auto)2018-02-07 15:21:00* Test Item Value Reference Range Interpretation Comments Eosinophils # (Auto) (test code = 711-2) 0.3 0.0-0.[address] [facility] HospitalBasophils # (Auto)2018-02-07 15:21:00* Test Item Value Reference Range Interpretation Comments Basophils # (Auto) (test code = 704-7) 0.0 0.0-0.[address] [facility] HospitalAbsolute Immature Granulocyte (auto 2018-02-07 15:21:00* Test Item Value Reference Range Interpretation Comments Absolute Immature Granulocyte (auto (tristan t code = Absolute Immature Granulocyte (auto) 0.03 0-0.[address] [facility] HospitalUrine VUW8770-28-67 00:12:00* Test Item Value Reference Range Interpretation Comments Urine WBC (test code = 5821-4) 6-10 0-[address] [facility] HospitalUrine IBA7908-66-51 00:12:00* Test Item Value Reference Range Interpretation Comments Urine RBC (test code = 50360-0) 11-20 0-[address] [facility] HospitalUrine Nsawjgpe5696-19-15 00:12:00* Test Item Value Reference Range Interpretation Comments Urine Bacteria (test code = 74101-7) MANY NONE H [facility] HospitalU[facility] Epithelial Frhmp0335-98-47 00:12:00 * Test Item Value Reference Range Interpretation Comments Urine Epithelial Cells (test code = 85771-9) FEW NONE [facility] HospitalUrine Transitional Epithelial Cells 2018-02-05 00:12:00* Test Item Value Reference Range Interpretation Comments Urine Transitional Epithelial Cells (test code = 8249-5) [facility]W NONE [facility] Fnjri8092-53-29 00:12:00* Test Item Value Reference Range Interpretation Comments Sodium Level (test code = 2951-2) 138 136-[address] [facility] HospitalPotassium Ebgkv5468-11-81 00:12:00* Test Item Value Reference Range Interpretation Comments Potassium Level (test code = 2823-3) 3.8 3.5-5.[address] [facility] HospitalChloride Vjsqz8821-19-24 00:12:00* Test Item Value Reference Range Interpretation Comments Chloride Level (test code = 2075-0) 105 98-[address] [facility] HospitalCarbon Dioxide Fxblg7836-83-79 00:12:00* Test Item Value Reference Range Interpretation Comments Carbon Dioxide Level (test code = 2028-9) 21 22-[address] [facility] HospitalAnion Ygv3413-77-48 00:12:00* Test Item Value Reference Range Interpretation Comments Anion Gap (test code = 47119-5) 15.8 8-[address] [facility] HospitalBlood Urea Hhqdrbjf3064-00-18 00:12:00* Test Item Value Reference Range Interpretation Comments Blood Urea Nitrogen (test code = 3094-0) 16 7-[address] [facility] HospitalCreatinine2018-06-22 00:12:00* Test Item Value Reference Range Interpretation Comments Creatinine (test code = 2160-0) 0.64 0.57-1.[address] [facility] HospitalBUN/Creatinine Bevyj0155-53-05 00:12:00* Test Item Value Reference Range Interpretation Comments BUN/Creatinine Ratio (test code = 3097-3) 25 6-[address] [facility] HospitalEstimat Glomerular Filtration Rate 2018-02-05 00:12:00* Test Item Value Reference Range Interpretation Comments Estimat Glomerular Filtration Rate (test code = 36075-2) 60- >60 Ranges were taken from the National Kidney Disease Education Program and the [place] replaced by [facility] [employer] literature.Reference ranges:60 or greater: Mopvub97-94 ( for 3 consecutive months): Chronic kidney disease 15 or less: Kidney failureM[facility] Trail [facility] HospitalGlucose Izoap1683-11-93 00:12:00* Test Item Value Reference Range Interpretation Comments Glucose Level (test code = TXU3149) 94 74-[address] [facility] HospitalCalcium Ezlgb7855-66-65 00:12:00* Test Item Value Reference Range Interpretation Comments Calcium Level (test code = 10371-5) 9.0 8.4-10.[address] [facility] HospitalTotal Lwaufxkrm8630-37-66 00:12:00* Test Item Value Reference Range Interpretation Comments Total Bilirubin (test code = 1975-2) 1.0 0.2-1.[address] [facility] HospitalAspartate Amino Transf (AST/SGOT) 2018-02-05 00:12:00* Test Item Value Reference Range Interpretation Comments Aspartate Amino Transf (AST/SGOT) (test code = Aspartate Amino Transf (AST/SGOT)) 26 5-[address] [facility] HospitalAlanine Aminotransferase (ALT/SGPT) 2018-02-05 00:12:00* Test Item Value Reference Range Interpretation Comments Alanine Aminotransferase (ALT/SGPT) (test code = 1742-6) 30 0-[address] [facility] HospitalTotal Llpbaay0223-94-52 00:12:00* Test Item Value Reference Range Interpretation Comments Total Protein (test code = 2885-2) 7.2 6.5-8.[address] [facility] HospitalAlbumin2018-06-22 00:12:00* Test Item Value Reference Range Interpretation Comments Albumin (test code = 1751-7) 3.7 3.5-5.[address] [facility] HospitalGlobulin2018-06-22 00:12:00* Test Item Value Reference Range Interpretation Comments Globulin (test code = 75685-3) 3.5 2.3-3.[address] [facility] HospitalAlbumin/Globulin Jzqqa2034-65-33 00:12:00 * Test Item Value Reference Range Interpretation Comments Albumin/Globulin Ratio (test code = 1759-0) 1.1 0.8-2.[address] [facility] HospitalAlkaline Vxqjuccfend4283-52-77 00:12:00* Test Item Value Reference Range Interpretation Comments Alkaline Phosphatase (test code = 6768-6) 72 40-[address] [facility] HospitalUrine Transitional Epithelial Cells 2018-02-05 00:12:00* Test Item Value Reference Range Interpretation Comments Urine Transitional Epithelial Cells (test code = 8249-5) FEW NONE H [facility] HospitalUrine Transitional Epithelial Cells 2018-02-05 00:12:00* Test Item Value Reference Range Interpretation Comments Urine Transitional Epithelial Cells (test code = 8249-5) FEW NONE H [facility] HospitalWhite Blood Bvidr6460-01-00 00:00:00* Test Item Value Reference Range Interpretation Comments White Blood Count (test code = 6690-2) 8.91 4.8-10.[address] [facility] HospitalRed Blood Civfa9921-90-03 00:00:00* Test Item Value Reference Range Interpretation Comments Red Blood Count (test code = 789-8) 4.80 3.6-5.[address] [facility] HospitalHemoglobin2018-06-22 00:00:00* Test Item Value Reference Range Interpretation Comments Hemoglobin (test code = 43592-1) 14.4 12.0-16.[address] [facility] HospitalHematocrit2018-06-22 00:00:00* Test Item Value Reference Range Interpretation Comments Hematocrit (test code = 4544-3) 41.8 34.2-44.[address] [facility] HospitalMean Corpuscular Sznyjq7818-25-22 00:00:00* Test Item Value Reference Range Interpretation Comments Mean Corpuscular Volume (test code = 787-2) 87.1 81-[address] [facility] HospitalMean Corpuscular Jraoobtgqm9441-27-84 00:00:00* Test Item Value Reference Range Interpretation Comments Mean Corpuscular Hemoglobin (test code = 785-6) 30.0 28-[address] [facility] HospitalMean Corpuscular Hemoglobin Concent 2018-02-05 00:00:00* Test Item Value Reference Range Interpretation Comments Mean Corpuscular Hemoglobin Concent (test code = 786-4) 34.4 31-[address] [facility] HospitalRed Cell Distribution Rusbw9789-36-23 00:00:00* Test Item Value Reference Range Interpretation Comments Red Cell Distribution Width (test code = 50705-3) 12.4 11.7 -14.[address] [facility] HospitalPlatelet Getso3036-79-94 00:00:00* Test Item Value Reference Range Interpretation Comments Platelet Count (test code = 777-3) 236 140-[address] [facility] HospitalNeutrophils (%) (Auto)2018-02-05 00:00:00 * Test Item Value Reference Range Interpretation Comments Neutrophils (%) (Auto) (test code = 92804-5) 84.6 38.7-80.[address] [facility] HospitalLymphocytes (%) (Auto)2018-02-05 00:00:00 * Test Item Value Reference Range Interpretation Comments Lymphocytes (%) (Auto) (test code = 736-9) 7.2 18.0-39.[address] [facility] HospitalMonocytes (%) (Auto)2018-02-05 00:00:00* Test Item Value Reference Range Interpretation Comments Monocytes (%) (Auto) (test code = 5905-5) 6.2 4.4-11.[address] [facility] HospitalEosinophils (%) (Auto)2018-02-05 00:00:00 * Test Item Value Reference Range Interpretation Comments Eosinophils (%) (Auto) (test code = 713-8) 1.5 0.0-6.[address] [facility] HospitalBasophils (%) (Auto)2018-02-05 00:00:00* Test Item Value Reference Range Interpretation Comments Basophils (%) (Auto) (test code = 706-2) 0.2 0.0-1.[address] [facility] HospitalIM GRANULOCYTES %2018-02-05 00:00:00* Test Item Value Reference Range Interpretation Comments IM GRANULOCYTES % (test code = IM GRANULOCYTES %) 0.3 0.0- 1.[address] [facility] HospitalNeutrophils # (Auto)2018-02-05 00:00:00* Test Item Value Reference Range Interpretation Comments Neutrophils # (Auto) (test code = 751-8) 7.5 2.1-6.[address] [facility] HospitalLymphocytes # (Auto)2018-02-05 00:00:00* Test Item Value Reference Range Interpretation Comments Lymphocytes # (Auto) (test code = 29275-1) 0.6 1.0-3.[address] [facility] HospitalMonocytes # (Auto)2018-02-05 00:00:00* Test Item Value Reference Range Interpretation Comments Monocytes # (Auto) (test code = 742-7) 0.6 0.2-0.[address] [facility] HospitalEosinophils # (Auto)2018-02-05 00:00:00* Test Item Value Reference Range Interpretation Comments Eosinophils # (Auto) (test code = 711-2) 0.1 0.0-0.[address] [facility] HospitalBasophils # (Auto)2018-02-05 00:00:00* Test Item Value Reference Range Interpretation Comments Basophils # (Auto) (test code = 704-7) 0.0 0.0-0.[address] [facility] HospitalAbsolute Immature Granulocyte (auto 2018-02-05 00:00:00* Test Item Value Reference Range Interpretation Comments Absolute Immature Granulocyte (auto (tristan t code = Absolute Immature Granulocyte (auto) 0.03 0-0.[address] [facility] HospitalUrine Edabq3264-94-43 23:55:00* Test Item Value Reference Range Interpretation Comments Urine Color (test code = 5778-6) YELLOW YELLOW [facility] HospitalUrine Dclpouu5150-68-07 23:55:00* Test Item Value Reference Range Interpretation Comments Urine Clarity (test code = 25159-5) CLEAR CLEAR [facility] HospitalUrine Specific Ffnvygl8146-36-15 23:55:00 * Test Item Value Reference Range Interpretation Comments Urine Specific [place] (test code = 5811-5) 1.025 1.010-1.[address] [facility] HospitalUrine zY5515-12-89 23:55:00* Test Item Value Reference Range Interpretation Comments Urine pH (test code = 04520-6) 6 5-[address] [facility] HospitalUrine Leukocyte Dlfonvtz3678-96-53 23:55:00* Test Item Value Reference Range Interpretation Comments Urine Leukocyte Esterase (test code = 5799-2) NEGATIVE NEGATIVE [facility] HospitalU[facility] Yfjkvcf9815-41-47 23:55:00* Test Item Value Reference Range Interpretation Comments Urine Nitrite (test code = 42206-1) NEGATIVE NEGATIVE [facility] HospitalUrine Wqpgqpj0593-62-31 23:55:00* Test Item Value Reference Range Interpretation Comments Urine Protein (test code = 5804-0) TRACE NEGATIVE H [facility] HospitalUrine Glucose (UA)2018-02-04 23:55:00* Test Item Value Reference Range Interpretation Comments Urine Glucose (UA) (test code = 2349-9) NEGATIVE NEGATIVE [facility] HospitalU[facility] Oyziedc8254-39-17 23:55:00* Test Item Value Reference Range Interpretation Comments Urine Ketones (test code = 51162-7) 3+ NEGATIVE H [facility] HospitalUrine Dpgpiftvzsia3740-41-20 23:55:00* Test Item Value Reference Range Interpretation Comments Urine Urobilinogen (test code = 68140-6) 0.2 0.2-[address] [facility]Urine Ehbvsterf8592-07-99 23:55:00* Test Item Value Reference Range Interpretation Comments Urine Bilirubin (test code = 1978-6) 1+ NEGATIVE H [facility] HospitalUrine Ikaxu3394-87-53 23:55:00* Test Item Value Reference Range Interpretation Comments Urine Blood (test code = 08863-3) 4+ NEGATIVE H [facility] HospitalU[facility] Guim5586-50-48 23:54:00* Test Item Value Reference Range Interpretation Comments Urine Test (test code = 2106-3) NEGATIVE NEGATIVE [facility] HospitalU[facility] Uguk1897-57-25 23:54:00* Test Item Value Reference Range Interpretation Comments Urine Test (test code = 2106-3) NEGATIVE NEGATIVE [facility] HospitalU[facility] Tcuj3019-01-08 23:54:00* Test Item Value Reference Range Interpretation Comments Urine Test (test code = 2106-3) NEGATIVE NEGATIVE [facility] HospitalCARDIAC JRXOAZF7079-81-71 21:58:00<0.02 [facility]annCHEM KJDWG6055-40-01 21:58:00* Test Item Value Reference Range Interpretation Comments A/G Ratio (test code = A/G Ratio) 1.0 1 0.7-1.6 [facility]CHE[facility] VCHWB5129-26-30 21:58:00* Test Item Value Reference Range Interpretation Comments B/C Ratio (test code = B/C Ratio) 13 1 6-25 [facility]annCHE[facility] IWAQT1963-25-80 21:58:003.5[facility]annCHEM PANEL 2018-01-12 21:58:0012.2[facility]annCHEM HAMOS5985-69-57 21:58:00543Alqsqeic HermannCHEM YQBBT1710-57-16 21:58:0076[facility]annCHEM RSIZC5059-40-70 21:58:0039[facility]annCHEM KCORR7475-80-18 21:58:0038[facility]annCHE[facility] LJJVU7746-06-65 21:58:000.7[facility]annCHEM HWOMQ4338-01-50 21:58:0093 [facility] QSBMT2080-23-40 21:58:000.78[facility]annCHEM PANEL 2018-01-12 21:58:0010[facility]annCHEM WMIZY2336-59-18 21:58:99139Atnwoner HermannCHEM XUQVO0026-90-94 21:58:008.3[facility]annCHEM NQIHJ2337-00-50 21:58:007.0[facility]annCHE[facility] TPXNT1536-88-89 21:58:003.5[facility]annCHEM HTHSD5882-22-94 21:58:0024[facility]annCHE[facility] XRWMU6380-61-52 21:58:87755 [facility] LITKO6378-41-22 21:58:004.2[facility] HermannENDOCRINOLOGY 2018-01-12 21:58:00Negative *NA*(01/12/18 4:58 PM)[facility]annHEMATOLOGY 2018-01-12 21:58:002.4[facility] YnwblwaHUESBNZEGQ5322-27-96 21:58:000.9[facility] IzqfgjsCVWJVLXKGF9250-25-56 21:58:006.6[facility] EpmedysQYRPFYDMXC4327-80-83 21:58:005.1[facility] WcyozyrJEQAKDGIMX9738-57-71 21:58:0022.9[facility] ADEBAOBCVE0366-70-95 21:58:000.8[facility] GxhqovaNWFPRJCDMO4521-28-48 21:58:008.8 [facility] XcpjfjuKFIFJPZNVM5394-70-56 21:58:0062.4[facility] HermannHEMATOLOGY 2018-01-12 21:58:000.5[facility] DnswcwsSGETNQKUZH3421-69-75 21:58:000.1[facility] ZvnzsmpYSUSCCYSSF8937-23-70 21:58:009.0[facility] FoupcmqRAYUTHVICM0384-90-10 21:58:004.80[facility] KbaolndEZDEBBIXZE1559-11-47 21:58:0010.6[facility] OQVFLKTPZD0234-00-26 21:58:0014.2[facility] JufcvhuGZNUWANSVG3093-93-75 21:58:00 227[facility] SkazxloEACTOZHCWW6569-19-83 21:58:0012.7[facility] HermannHEMATOLOGY 2018-01-12 21:58:0033.4[facility] NaskfnoXRMNEHIBUT7318-19-10 21:58:0088.3[facility] YrqsibsBBPVNKOJTR7186-41-12 21:58:0042.4[facility] OgvmeagFIYLHZJBJC8315-72-01 21:58:00* Test Item Value Reference Range Interpretation Comments MCH (test code = MCH) 29.5 pg 27.0-31.0 [facility]CHE[facility] MNWXN1773-19-64 05:53:28426Maumhqen HermannCHEM PANEL 2016-12-31 05:53:0086[facility]annCHEM LKMYB0689-25-39 05:53:49102Nxmfsvbz HermannCHEM XXMFG0623-60-85 05:53:009[facility]annCHE[facility] MDLNW9135-77-90 05:53:000.74[facility]annCHE[facility] NTZZG7326-10-17 05:53:007.1[facility]annCHEM VMHWH8886-21-85 05:53:0025[facility]annCHE[facility] JQZBH1486-14-78 05:53:008.7 [facility]CHE[facility] NWHFJ8267-79-86 05:53:003.8[facility]annCHEM PANEL 2016-12-31 05:53:08291Nvqfmsos HermannCHEM RTDBY1022-36-47 05:53:0013[facility]annCHE[facility] LKGQC0853-46-14 05:53:0083[facility]annCHEM IRZUG8674-77-86 05:53:003.5[facility]annCHEM IWEZY1239-77-55 05:53:0022[facility]annCHE[facility] IOVCO8871-64-61 05:53:000.4[facility]annCHE[facility] CDRYL2254-85-83 05:53:0012 [facility]CHE[facility] FUPEW8652-48-57 05:53:003.6[facility]annCHEM PANEL 2016-12-31 05:53:001.0[facility]annCHEM PXKET9274-64-60 05:53:0011.8[facility]annCHEM CGACA3054-10-01 05:53:56366Bbubbmik OfmvgltYSFUHEHPFGXTJ0365-59-56 05:53:00Negative *NA*(12/31/16 12:53 AM)[facility] ZmkfuenNJFDUNYVTI9154-37-37 05:53:0053.9[facility] IuwzrdkLNHSHYXZLW3008-00-54 05:53:004.9[facility] DJXYZEGJZE2250-37-13 05:53:001.2[facility] YjsuwryPMRHKADSXC6195-54-65 05:53:005.0 [facility] GcdkgjpBRMCFHDDAG5335-71-46 05:53:0031.8[facility] HermannHEMATOLOGY 2016-12-31 05:53:008.2[facility] DkoaorbONUONDZETC9629-31-55 05:53:000.1[facility] NviwgzqLXZBNUNHZF4316-44-08 05:53:003.0[facility] DtpozakXMXHDDEYOG8823-20-80 05:53:000.8[facility] AmgcevqCGNWTJRVCA5015-53-03 05:53:000.5[facility] TYUNJZSDSX8267-50-46 05:53:009.6[facility] QwiowvcTQLAFVHITR6409-28-74 05:53:00 33.1[facility] DswxsscMYGBPARJTQ3383-41-92 05:53:0012.4[facility] HermannHEMATOLOGY 2016-12-31 05:53:26833Nwpyuznf LxkfnkmSAZOSNMVPK0532-10-77 05:53:0089.8[facility] JgjwzkqZRXAAFXUEU7823-91-42 05:53:00* Test Item Value Reference Range Interpretation Comments MCH (test code = MCH) 29.7 pg 27.0-31.0 [facility] QcduymsYOPXNOLDOW4307-57-42 05:53:0045.3[facility]annHEMATOLOGY 2016-12-31 05:53:009.3[facility] WkznxoiOLLCDNVIAT4578-06-80 05:53:005.04[facility] PtgkmucBIGJCQTHIM0083-20-10 05:53:0015.0[facility]UR[facility] STOOL 2016-12-31 05:53:0033[facility] FBRBR4126-88-74 05:53:0027 [facility] CXSJF9213-91-86 05:53:00Trace *ABN*(12/31/16 12:53 AM) [facility] CDRYG7711-44-77 05:53:00Large *ABN*(12/31/16 12:53 AM) [facility] QXLMB6578-17-95 05:53:00Moderate *ABN*(12/31/16 12:53 AM)[facility] ZKMRX6458-90-63 05:53:00Amber *ABN*(12/31/16 12:53 AM)[facility] CPKZG4638-11-89 05:53:00Positive *ABN*(12/31/16 12:53 AM)[facility] NJALQ8475-95-57 05:53:002.0[facility] URINE AND HMHIF9094-32-92 05:53:00Trace *ABN*(12/31/16 12:53 AM)[facility] URINE AND GQISX0952-03-95 05:53:00Cloudy *ABN*(12/31/16 12:53 AM)[facility] URINE AND CVZZS3597-84-57 05:53:00* Test Item Value Reference Range Interpretation Comments UA Spec Grav (test code = UA Spec Grav) 1.025 1 [facility] CFWVB8365-04-47 05:53:00* Test Item Value Reference Range Interpretation Comments UA pH (test code = UA pH) 6.5 1 5.0-8.0 [facility] UMDIC7752-07-88 05:53:00Negative (12/31/16 12:53 AM) [facility]annCHE[facility] CKMHD1860-26-68 20:32:17479Mrlicfbg HermannCHEM PANEL 2016-12-25 20:32:0096[facility]annCHE[facility] QTVDB2697-86-73 20:32:003.9[facility]annCHEM HRMUT5663-05-34 20:32:0025[facility]annCHEM OBYUU7100-48-81 20:32:000.9[facility]annCHEM LGGTG2528-15-79 20:32:0016[facility]annCHE[facility] YSLDC4226-84-94 20:32:0094[facility]annCHEM OQIEY8520-89-92 20:32:000.82 [facility]CHE[facility] QUJTU3462-48-58 20:32:0012[facility]annCHEM PANEL 2016-12-25 20:32:77311Orqnjsgf HermannCHEM YXXDC8379-03-03 20:32:10826Pjegmogf HermannCHEM UPMSY5980-74-82 20:32:003.8[facility]annCHEM EMHHP6559-07-33 20:32:007.9[facility]annCHE[facility] QATCD8086-35-44 20:32:008.8[facility]annCHEM KOCLE1714-26-54 20:32:0024[facility]annCHEM IBCYY3985-02-66 20:32:0082 [facility]CHE[facility] KLTEI5264-80-32 20:32:0013.8[facility]annCHEM PANEL 2016-12-25 20:32:0015[facility]annCHEM ABDXP2395-29-00 20:32:001.0[facility]annCHE[facility] GBMQW6408-56-34 20:32:004.0[facility] NxdmphlZJRKPLVFZF5077-30-16 20:32:00* Test Item Value Reference Range Interpretation Comments PTT (test code = PTT) 32.0 s 22.9-35.8 [facility] YfgrujwWMXSJWEDGS7114-94-79 20:32:001.10[facility]annHEMATOLOGY 2016-12-25 20:32:00* Test Item Value Reference Range Interpretation Comments PT (test code = PT) 14.4 s 12.0-14.7 [facility] DvgsqbeHBXGGOHFED2718-02-45 20:32:0015.1[facility] HermannHEMATOLOGY 2016-12-25 20:32:0045.6[facility] IwxvfbmGJLNAHEIFD5313-50-84 20:32:0089.9[facility] GvkqldnQTMHRADUEI9173-89-05 20:32:00* Test Item Value Reference Range Interpretation Comments MCH (test code = MCH) 29.8 pg 27.0-31.0 [facility] AzmdftcDOXLBLJGZI5914-28-86 20:32:0010.7[facility] HermannHEMATOLOGY 2016-12-25 20:32:005.08[facility] NndyouuMPZJQBCBXL3948-09-53 20:32:0033.2[facility] ZfwkwvjFTXTIVKLCF3601-30-56 20:32:0012.7[facility] HklsxxkOAIPSATAFK6655-09-16 20:32:009.3[facility] XptymnzFZVSRMTXSE4347-14-27 20:32:75261Mhstnwxl [place] EOQQDORPBD6290-35-12 20:32:001.9[facility] LpidhslFQQGGCXPEN4520-15-66 20:32:000.7 [facility] GpyxzzqITEGKXTJOX0749-94-33 20:32:006.7[facility] HermannHEMATOLOGY 2016-12-25 20:32:002.5[facility] BzqykccVHJMNZZYCD2062-17-76 20:32:000.7[facility] TnrqjjaVVPJBKRZXA4657-87-15 20:32:007.2[facility] SisdibpBYGAKSBBUN8621-35-13 20:32:000.2[facility] YjwneyfJSYSYDQDQO4085-01-30 20:32:000.1[facility] DSTIONVUMM0844-56-59 20:32:0067.6[facility] QhxhxeiHPTAXVNIAI5716-70-14 20:32:00 23.1[facility] HermannCHEM RQMLX1036-83-29 01:59:85237Wqhwoorl HermannCHEM PANEL 2016-07-20 01:59:001.0[facility]annCHEM ANAVD6731-73-70 01:59:003.9[facility]annCHEM IFNNV6904-15-79 01:59:0010[facility]annCHEM TPEKD0134-91-40 01:59:0013.0[facility]annCHEM GLZEH5869-81-42 01:59:0018[facility]annCHEM FDWPT2686-95-87 01:59:0024[facility]annCHEM EWFPM9264-81-23 01:59:40524 [facility] ZLJPF0327-27-16 01:59:003.9[facility]annCHEM PANEL 2016-07-20 01:59:007.8[facility]annCHEM FYBJT5106-79-67 01:59:008.7[facility]annCHEM GHYCF6918-55-80 01:59:000.3[facility]annCHEM JKJUO5557-07-52 01:59:0079[facility]annCHEM OWSUH5661-09-15 01:59:000.70[facility]annCHEM OKKNP1262-26-58 01:59:007[facility]annCHEM AUBLL7002-55-27 01:59:0028[facility]annCHEM WXKJU7698-07-22 01:59:62406Umnwysbb HermannCHEM MTSFX7749-57-01 01:59:004.0[facility]annCHEM BTLYI6884-07-30 01:59:23165Fhkfflpu HermannCHEM XEQZN7044-98-50 01:59:0084[facility] OhdzpakQYQPSWQWVS3865-66-69 01:59:0012.6 [facility] IairddnACDCXYCGLJ5702-87-40 01:59:59275Uurklpus HermannHEMATOLOGY 2016-07-20 01:59:0015.3[facility] ZkgmnpyBRMRBQQREJ6642-12-02 01:59:005.08[facility] PvojiinQMSJQWIDLI0213-26-26 01:59:0010.8[facility] RdkddqnKMDTIIQRFP8689-42-47 01:59:008.9[facility] YqhngkwKLPBYNQKCM3509-11-89 01:59:0088.5[facility] KWFZBTKPEC5530-54-20 01:59:0044.9[facility] VebqelwQVZLYLHICQ5888-10-52 01:59:00* Test Item Value Reference Range Interpretation Comments MCH (test code = MCH) 30.1 pg 27.0-31.0 [facility] VesfjluGCVVZQUNFY9723-15-85 01:59:0034.0[facility] HermannHEMATOLOGY 2016-07-20 01:59:000.6[facility] OshcuuuCLTMZEKLEC0194-98-72 01:59:000.1[facility] PffijjzVQRHTGMJQU3842-20-45 01:59:002.6[facility] QheqcaxIBABJDLGCP4457-10-01 01:59:000.5[facility] SenaysyEHMGKFPWTJ2894-11-10 01:59:007.0[facility] ELKIUMDNRE4765-84-70 01:59:005.6[facility] RkimxijGRNWIQECKA7497-55-64 01:59:000.9 [facility] UxrdnmqXQOQJFEQRT7993-98-86 01:59:004.6[facility] HermannHEMATOLOGY 2016-07-20 01:59:0065.0[facility] SrtoohnDRRHPHATUE2598-62-51 01:59:0023.9[facility] GKOII8693-12-69 01:59:008.0[facility] STOOL 2016-07-20 01:59:00Clear (07/19/16 7:59 PM)[facility] STOOL 2016-07-20 01:59:001.005[facility] MTWCQ9606-12-89 01:59:00 Negative (07/19/16 7:59 PM)[facility] MMSOW3040-81-88 01:59:00 Small *ABN*(07/19/16 7:59 PM)[facility] FCWDE3117-30-28 01:59:00 Negative (07/19/16 7:59 PM)[facility] JYWAV8212-86-42 01:59:00 Negative *NA*(07/19/16 7:59 PM)[facility] MUMBK4704-93-48 01:59:00 <1[facility] SJYNC8568-47-95 01:59:001[facility] CHEM 2016-07-20 01:59:00Negative (07/19/16 7:59 PM)[facility]annCHEM PANEL 2016-04-14 06:13:000.66[facility]annCHEM BMRVV0631-75-80 06:13:003.7[facility]annCHEM HLMEZ2630-75-99 06:13:62971Bnbssyrs HermannCHEM RIOXB5135-34-60 06:13:0087[facility]annCHEM LXRAJ9748-36-47 06:13:0013[facility]annCHEM CHAVJ6218-14-91 06:13:40391Eyshklmg HermannCHEM DFAIX6149-77-25 06:13:0022 [facility]annCHE[facility] PRJWO3768-73-99 06:13:003.8[facility]annCHEM PANEL 2016-04-14 06:13:0026[facility]annCHEM QHSHK4827-43-01 06:13:70049Xbodmnzf HermannCHEM OBDPA7727-18-81 06:13:000.3[facility]annCHEM MCSLY2374-23-72 06:13:0072[facility]annCHEM MQFGM2401-13-94 06:13:0013[facility]annCHEM IZCQE6167-79-38 06:13:007.4[facility]annCHEM ZDUEZ4278-41-27 06:13:008.3 [facility]CHE[facility] XBTKI9489-42-62 06:13:003.6[facility]annCHEM PANEL 2016-04-14 06:13:001.1[facility]annCHEM URGZW2800-57-90 06:13:0020[facility]annCHEM HVHKE2296-54-32 06:13:008.7[facility]annCHEM MSBJJ3460-44-84 06:13:30881Illdepyw HermannCHEM BFBNH5477-69-66 06:13:0045[facility] YDKKPPYBBG9370-18-54 06:13:00* Test Item Value Reference Range Interpretation Comments MCH (test code = MCH) 29.2 pg 27.0-31.0 [facility] BrmqaldIAVEMSNSLI2750-20-63 06:13:0087.0[facility] HermannHEMATOLOGY 2016-04-14 06:13:0040.7[facility] UwhuztcXXSLHZJFQJ9428-12-69 06:13:0013.6[facility] XtzlrgxVUNVNQVMJN2783-98-14 06:13:004.67[facility] FnppthePHPPYOUCBH3869-02-86 06:13:008.6[facility] OzhzkvfJGCDGHHXFM5265-60-32 06:13:83325Mqskvprf [facility] JKPTPEQBOL6864-13-95 06:13:0033.6[facility] JumyrjnNZHIPHRFGY2274-71-65 06:13:00 13.0[facility] HysdbspABBECKERKE4900-68-64 06:13:0011.2[facility] HermannHEMATOLOGY 2016-04-14 06:13:000.9[facility] VzzqvmvPCBOUPDKWO1133-85-93 06:13:003.3[facility] FygjeajTEDKDRUNIT2050-41-70 06:13:006.3[facility] QguxshkIUGMBAWKBR1651-91-23 06:13:000.8[facility] ZinzkhwIKJLVOJSJR7976-45-91 06:13:005.9[facility] ABXRSEFFTQ4427-83-81 06:13:008.2[facility] YrlvfntMEMSFPYNYV8240-39-88 06:13:00 29.1[facility] RrhcfeqWGOMMRCJFM2840-73-25 06:13:0056.0[facility] HermannHEMATOLOGY 2016-04-14 06:13:000.1[facility] IbwbjfkJJDDKSCIQG3944-49-03 06:13:000.7[facility] AND YNBTY4617-45-15 06:13:00Large *ABN*(04/14/16 1:13 AM)[facility] YTYVT2943-21-78 06:13:00Negative *NA*(04/14/16 1:13 AM)[facility] RSBOF5331-03-65 06:13:005.0[facility] STOOL 2016-04-14 06:13:001.020[facility] RKZZH2754-49-97 06:13:00Slight *ABN*(04/14/16 1:13 AM)[facility] APXOV6374-54-99 06:13:00 Negative (04/14/16 1:13 AM)[facility] TQVJU8270-58-71 06:13:007 [facility] BEISI6964-49-73 06:13:003[facility] DHDMQ1254-17-91 06:13:00Trace *ABN*(04/14/16 1:13 AM)[facility] XRHND1504-64-27 06:13:00Yellow *NA*(04/14/16 1:13 AM)[facility] CHEM 2016-04-14 06:13:00Negative (04/14/16 1:13 AM)[facility] STOOL 2016-02-24 05:51:007[facility] ZJPLE5996-90-76 05:51:00Negative *NA*(02/24/16 12:51 AM)[facility] ZAKRO7455-94-06 05:51:00Trace *ABN*(02/24/16 12:51 AM)[facility] OKMZS5537-79-22 05:51:002.0 [facility] HSSZA7521-19-19 05:51:00Negative (02/24/16 12:51 AM) [facility] LWYRH7763-15-42 05:51:00Small *ABN*(02/24/16 12:51 AM) [facility] NTBCB3165-59-50 05:51:008[facility] TSWCK6128-05-93 05:51:00Clear (02/24/16 12:51 AM)[facility] STOOL 2016-02-24 05:51:001.027[facility] BUVOW8272-30-33 05:51:007.0 [facility] DZOV8918-50-89 05:51:00Negative (02/24/16 12:51 AM)[facility]annCHEM OAQDO2369-43-20 04:28:0081[facility]annCHEM RWZJZ2787-39-35 04:28:0032[facility] HermannCHEM CTBGT1955-67-97 04:28:0024[facility] HermannCHEM IQYQT8943-94-88 04:28:59292Stbnrfvj HermannCHEM UJDHU5391-75-78 04:28:000.6 [facility]annCHEM HHSHO3060-87-85 04:28:000.74[facility] HermannCHEM PANEL 2016-02-24 04:28:0010[facility]annCHEM IDUGQ0736-14-26 04:28:0087[facility]annCHEM PNHEP9966-13-03 04:28:00See Note 1(02/23/16 11:28 PM)[facility] CHEM NOIPR6940-37-03 04:28:20625Odcufbpi HermannCHEM RNPGI3553-62-88 04:28:008.8 [facility]annCHEM PQYSA3856-44-28 04:28:0026[facility]annCHEM PANEL 2016-02-24 04:28:11587Ilzecvqz HermannCHEM AKGAV9395-10-46 04:28:0014[facility]annCHEM WRVLN6626-66-99 04:28:008.0[facility]annCHEM KOTGZ2211-34-64 04:28:000.9[facility]annCHEM GTQJW3139-94-02 04:28:004.2[facility]annCHEM NSDVU8431-51-24 04:28:003.8[facility]annCHEM WIUCS8367-00-73 04:28:42775 [facility]annCHEM MTSGJ0614-05-46 04:28:0045[facility]annHEMATOLOGY 2016-02-24 04:28:0044.3[facility] CjtdzslWBNKARKUUY6209-97-98 04:28:0014.4[facility] ZpokkxmFVXGDQPCPF8679-66-57 04:28:004.96[facility] DzhwviwYYJZNPFRCA3615-88-63 04:28:0012.3[facility] PlgayegRNIDFTIFDR2411-41-25 04:28:0089.3[facility] WNKIIEJQRR1148-20-72 04:28:23715Srovsbdu HkdrnwoQXPLURNWHO1002-90-04 04:28:00 13.1[facility] CwwhukcQZVDXAQJIF1962-69-64 04:28:0032.4[facility]annHEMATOLOGY 2016-02-24 04:28:00* Test Item Value Reference Range Interpretation Comments MCH (test code = MCH) 29.0 pg 27.0-31.0 [facility] FtfpxwyXLEYFERSJP7049-69-75 04:28:008.7[facility] HermannHEMATOLOGY 2016-02-24 04:28:0062.1[facility] AnpqqkrAOMFQKUGJL9499-28-56 04:28:000.8[facility] KafxpyxMUKJPRZCKS3717-73-20 04:28:004.6[facility] PfmvoskFONPOLQZUK3573-72-42 04:28:007.6[facility] YynlmmuCOFKFKRTHT2332-15-70 04:28:0024.9[facility] UKGMPRKDXB9061-07-45 04:28:007.7[facility] CstopowGZRIZTVIWH8691-09-11 04:28:000.6 [facility] KjikqdpFBQCDMBWMD1220-66-33 04:28:003.1[facility] HermannHEMATOLOGY 2016-02-24 04:28:000.1[facility] KkicwvrFXVSLOHOEZ4347-90-25 04:28:000.9[facility] HermannCHEM ZJYKG1083-26-47 02:50:52257Euaasjhx HermannCHEM KIJPV6653-58-65 02:50:004.1[facility]annCHEM YJOMJ0450-97-51 02:50:000.9[facility]annCHEM IZRXK7017-53-62 02:50:0011.0[facility]annCHEM WIMEV5104-53-97 02:50:0011 [facility]annCHEM ZDSFS1269-30-88 02:50:79037Jdiwacfw HermannCHEM PANEL 2016-01-17 02:50:007.9[facility]annCHEM QJBGY6190-06-18 02:50:0016[facility]annCHEM TPTCR3117-49-73 02:50:000.4[facility]annCHEM FSVGI0443-46-64 02:50:004.0[facility]annCHEM PFIYK6552-08-24 02:50:0027[facility]annCHEM GRMTF4345-35-24 02:50:98896Aifahwnd HermannCHEM UPUCA5609-43-76 02:50:008.5 [facility]annCHEM YDKQH2801-11-28 02:50:28413Olkagnds HermannCHEM PANEL 2016-01-17 02:50:0084[facility]annCHEM IXWKV1350-92-22 02:50:0088[facility]annCHEM DAKPM9923-50-68 02:50:000.66[facility]annCHEM QMMHE3280-92-04 02:50:007[facility]annCHEM LYHCU4164-52-09 02:50:003.8[facility] HermannCHEM YROFS1975-93-17 02:50:0027[facility] LxjtpvjTVEJKQOQFK0786-05-06 02:50:006.4 [facility] HclhcsmCOLWMJLNVO0900-00-10 02:50:002.4[facility] HermannHEMATOLOGY 2016-01-17 02:50:000.6[facility] LagdyzuLEEDBMMDWA4117-19-25 02:50:000.4[facility] KbalilkKAXLXTOKPA9890-87-16 02:50:000.1[facility] ZetqlmqTUEUOBMOGU0139-05-79 02:50:006.3[facility] GutosqwBTUMHYACRC4111-14-19 02:50:004.5[facility] KCOMZKSDLQ6331-28-17 02:50:000.9[facility] IjfkfwxRUZDQQQZWU0271-62-83 02:50:00 24.2[facility] OtgwklzADREDKWCNO2131-51-39 02:50:0064.1[facility] HermannHEMATOLOGY 2016-01-17 02:50:008.4[facility] OzlinxyPCHQXAYUVQ5275-55-10 02:50:0089.2[facility] IbdlsojRCXYNPXGEP0020-78-79 02:50:00* Test Item Value Reference Range Interpretation Comments MCH (test code = MCH) 29.7 pg 27.0-31.0 [facility] SkstzluKGXZDEOZXX6675-00-22 02:50:0033.3[facility] HermannHEMATOLOGY 2016-01-17 02:50:0013.2[facility] EpqgajiQKDPHOTLEK5328-34-44 02:50:0014.9[facility] GsfxfvnXPDZCTENUZ5463-94-54 02:50:0044.7[facility] HcjmsfcLSITZYHROB6163-23-97 02:50:005.01[facility] LaspxivZFMSMNZPEF3443-18-11 02:50:44941Ecvkvvuu [place] SKHASALYKX1359-93-63 02:50:0010.0[facility] QYZRI4735-45-75 02:15:00Negative (01/16/16 9:15 PM)[facility] UJBZY5500-62-28 02:15:00Negative (01/16/16 9:15 PM)[facility] ANTHU7985-02-37 02:15:00* Test Item Value Reference Range Interpretation Comments UA Spec Grav (test code = UA Spec Grav) 1.015 1 [facility] RQPQU7699-89-99 02:15:00* Test Item Value Reference Range Interpretation Comments UA pH (test code = UA pH) 7.5 1 5.0-8.0 [facility] EENNU2559-46-50 02:15:00Negative (01/16/16 9:15 PM) [facility] LAPHF6516-72-74 02:15:00Clear (01/16/16 9:15 PM)[facility] FVMYK5484-52-08 02:15:00Yellow *NA*(01/16/16 9:15 PM)[facility] JEMIH9942-95-17 02:15:000.2[facility] STOOL 2016-01-17 02:15:00Negative (01/16/16 9:15 PM)[facility] STOOL 2016-01-17 02:15:00Large *ABN*(01/16/16 9:15 PM)[facility] ST[facility]OL 2016-01-17 02:15:00Negative *NA*(01/16/16 9:15 PM)[facility] ST[facility]OL 2016-01-17 02:15:00Negative *NA*(01/16/16 9:15 PM)[facility] CHEM 2016-01-17 02:15:00Negative (01/16/16 9:15 PM)[facility] STOOL 2015-10-13 09:42:00Slight *ABN*(10/13/15 3:42 AM)[facility] STOOL 2015-10-13 09:42:001.026[facility] YHUKW7373-94-51 09:42:006.0 [facility] ADNND4895-14-81 09:42:007[facility] HBCPZ8451-52-69 09:42:006[facility] AANWS2942-73-20 09:42:00 Negative (10/13/15 3:42 AM)[facility] ODDHT2108-96-33 09:42:00 Negative (10/13/15 3:42 AM)[facility] EEUDG7369-02-02 09:42:00 Large *ABN*(10/13/15 3:42 AM)[facility] DUCDX9490-50-92 09:42:00 Negative *NA*(10/13/15 3:42 AM)[facility] PRPK0382-38-31 09:42:00 Negative (10/13/15 3:42 AM)[facility]annCHEM YOALT4355-81-44 08:33:003.9 [facility]annCHE[facility] GYAHH5521-10-27 08:33:001.0[facility]annCHEM PANEL 2015-10-13 08:33:0013[facility]annCHEM TAIGX6747-53-04 08:33:009.5[facility]annCHEM WNDNY8998-06-52 08:33:38384Fmduphul HermannCHEM CBMTZ0496-74-34 08:33:000.7[facility]annCHEM TXPNP5915-61-78 08:33:0079[facility]annCHEM SMQUV9511-31-97 08:33:0023[facility]annCHE[facility] FJVDX0720-12-78 08:33:0035 [facility]annCHE[facility] YKACP4700-44-18 08:33:003.8[facility]annCHEM PANEL 2015-10-13 08:33:007.7[facility]annCHEM JQIBO0239-41-52 08:33:008.8[facility]annCHEM YNHVM7335-33-15 08:33:0028[facility]annCHEM NQBMV5345-82-90 08:33:02542Ykdqjrgi HermannCHEM PLCRO9157-33-19 08:33:003.5[facility]annCHEM AIZEH9609-21-69 08:33:000.70[facility]annCHEM JBVNW3469-17-89 08:33:009 [facility]annCHE[facility] OFXRP5488-88-79 08:33:0094[facility]annCHEM PANEL 2015-10-13 08:33:73729Gvdkuinq HermannCHEM MEENJ1872-07-47 08:33:0050[facility]annCHEM EQXZA6903-16-41 08:33:24335Ugllpuvr OfhkyxyAXAXERKBXY9558-73-38 08:33:40789Hndkihmz SxmhugyVXULYYXWNR3379-43-69 08:33:009.7[facility] [place] TAEQBFYZHZ0517-32-19 08:33:0033.4[facility] BnraswyIGRKQADRAC3678-37-20 08:33:00 12.5[facility] SgxyurrXEJJTPCPWW5016-70-69 08:33:009.9[facility]annHEMATOLOGY 2015-10-13 08:33:005.04[facility] FnpsgdtTCFWTJCKFX2200-01-46 08:33:0015.1[facility] AuraylnLDFHPFXIHN2761-21-35 08:33:00* Test Item Value Reference Range Interpretation Comments MCH (test code = MCH) 29.9 pg 27.0-31.0 [facility] DdxidgqDIMRLCUHGS5489-30-91 08:33:0045.2[facility]annHEMATOLOGY 2015-10-13 08:33:0089.7[facility] OtvjcbpZAEBPWUUWG5863-70-37 08:33:000.6[facility] GgsxrekRXEGCMEKMN0496-75-07 08:33:000.1[facility] JjoacshIBPHMYKVPA4982-27-09 08:33:003.2[facility] OajurjqBQDIFPYCCE8079-71-69 08:33:000.8[facility] [place] YKAAMWEXEX5137-97-13 08:33:005.1[facility] PyufwarACLIWACGCS0277-29-53 08:33:001.0 [facility] OpkvamlBKCCINWUQH4277-00-03 08:33:008.5[facility]annHEMATOLOGY 2015-10-13 08:33:006.2[facility] ZpoaeyuUMCWTMQLUM1048-61-64 08:33:0051.7[facility] NsdgafmESPPSLEBEB8920-74-69 08:33:0032.6[facility] IdxbsbpZAWANETGLEBO8128-94-40 08:31:003.6[facility] HermannCHEM QYELC8339-15-60 07:16:14557Vlcwrpvo HermannCHEM ZADHE6194-04-77 07:16:0057[facility]annCHEM XPPEG4010-90-16 07:16:0034 [facility]annCHEM RCUSH4102-85-09 07:16:000.8[facility] HermannCHEM PANEL 2015-07-04 07:16:004.2[facility]annCHEM BHSOS6793-66-94 07:16:000.7[facility]annCHEM KJNIH1251-57-96 07:16:0080[facility]annCHEM LGECE9527-84-98 07:16:71829Ixrcvryn HermannCHEM LWFHH7575-90-50 07:16:48991Fihshroe HermannCHEM MUMKF3940-60-77 07:16:00See Note 1(07/04/15 1:16 AM)[facility]annCHEM PANEL 2015-07-04 07:16:0011[facility]annCHEM MJBGD0902-76-18 07:16:000.74[facility]annCHEM IDUDO6899-69-63 07:16:0085[facility]annCHEM AFVZB2084-65-22 07:16:007.7[facility]annCHEM VQDOI5290-31-75 07:16:003.5[facility]annCHEM EXGDF7265-79-04 07:16:0015[facility]annCHEM KXAHI5203-64-00 07:16:008.7 [facility]annCHEM STWJA6830-16-25 07:16:0024[facility]annCHEM PANEL 2015-07-04 07:16:36916Smervzjt SpxwtyjCHLTVWWIHZ0874-01-34 07:16:000.1[facility] GbpqhtxCVPISRRUEA4621-81-21 07:16:000.7[facility] DpangtyXGKKIRRPIW5091-83-64 07:16:002.7[facility] OlezdhlBYBFSOMNFO8258-84-19 07:16:007.5[facility] GZDHCRVURM2532-23-85 07:16:001.0[facility] IbohnqmLHWUIWBPSN4391-48-73 07:16:005.5 [facility] NcyndyrWUIRIXKCZL3433-82-31 07:16:001.0[facility]annHEMATOLOGY 2015-07-04 07:16:008.3[facility] KlzomwsRXRVLUVPHW3209-40-64 07:16:0022.4[facility] FywljwfSSOCJWPENB8298-02-39 07:16:0062.8[facility] KkolrobQYJRKASSJF1964-70-10 07:16:00* Test Item Value Reference Range Interpretation Comments MCH (test code = MCH) 29.5 pg 27.0-31.0 [facility] YuvimkjOGJLDXMQJV5213-06-75 07:16:009.4[facility]annHEMATOLOGY 2015-07-04 07:16:47634Ildbtaga RjmvyhzTWJWKWJKCL2745-21-88 07:16:0012.7[facility] HznjurkSXPGJSDHPU6295-52-62 07:16:0032.5[facility] YgwmxopIQIOISMXYH1830-35-91 07:16:0090.7[facility] DrybsflWXJYFMPDJF0876-60-45 07:16:0043.1[facility] [place] MJVFEAJWWU9938-41-79 07:16:0014.0[facility] DxlvaeoHLBYECVFZL1780-50-18 07:16:00 4.76[facility] AhidtwnEEUILSXNVY9179-34-49 07:16:0012.0[facility] LOBDZ9156-31-52 07:16:001[facility] IKMXJ6735-92-12 07:16:00 Negative (07/04/15 1:16 AM)[facility] PCWZR0340[facility]68-50 07:16:00 Small *ABN*(07/04/15 1:16 AM)[facility] KHBNY0171-83-04 07:16:00 Negative (07/04/15 1:16 AM)[facility] SFHIE0340-18-03 07:16:004 [facility] OWCNL1381-00-48 07:16:007.0[facility] SNDSG2439-66-99 07:16:00Negative *NA*(07/04/15 1:16 AM)[facility] CWHGP9068-73-13 07:16:00Yellow *NA*(07/04/15 1:16 AM)[facility] IJJLU8804-67-86 07:16:001.027[facility] EOLOS5039-94-43 07:16:00 Marked *ABN*(07/04/15 1:16 AM)[facility] VSTJ5005-35-00 07:16:00 Negative (07/04/15 1:16 AM)[facility] NXTNM3413-82-58 07:36:002 [facility] NAUZC3698-80-65 07:36:00Negative (05/17/15 2:36 AM) [facility] IIUZF6662-73-76 07:36:00<1[facility] EUVZR9738-96-83 07:36:00Negative (05/17/15 2:36 AM)[facility] BJYCL2081-53-91 07:36:00Small *ABN*(05/17/15 2:36 AM)[facility] ADBYU2739-09-90 07:36:00Negative *NA*(05/17/15 2:36 AM)[facility] ZMSLX9514-56-02 07:36:00Yellow *NA*(05/17/15 2:36 AM)[facility] XZIOI1318-29-01 07:36:00Clear (05/17/15 2:36 AM)[facility] STOOL 2015-05-17 07:36:001.016[facility] TCGRG4984-06-48 07:36:006.0 [facility] SYNK4680-81-31 07:36:00Negative (05/17/15 2:36 AM)[facility] TMTWRXQRLB8979-76-59 12:19:00Negative *NA*(05/15/15 7:19 AM) [facility] GXQVTEERJW7591-88-56 12:19:00Endocervix *NA*(05/15/15 7:19 AM)[facility] AURLLIGIWM0864-99-29 12:19:00Endocervix *NA*(05/15/15 7:19 AM)[facility] WZZOEOSKBT3850-82-71 12:19:00 Negative *NA*(05/15/15 7:19 AM)[facility] MTVFC0462-43-77 07:57:003.5 [facility] KAZYE6006-46-36 07:57:001.1[facility] PANEL 2015-05-15 07:57:009[facility] YYVTP4839-45-83 07:57:0011.4[facility] QWXFX0232-97-02 07:57:007[facility] LKRSV5945-77-56 07:57:0087[facility] NHHIV7270-06-36 07:57:007.3[facility] OTFEZ1919-92-15 07:57:0032[facility] XIJGJ2433-53-86 07:57:0024 [facility] VESUL4342-96-69 07:57:003.8[facility] PANEL 2015-05-15 07:57:0087[facility] VMPAF4399-49-55 07:57:0016[facility] WBBYD3497-89-62 07:57:000.7[facility] NYFAV2184-35-18 07:57:45327Zbpcxwmx HermannCHEM DNOQI3406-17-80 07:57:19803Wwajwbkc HermannCHEM KVLBI1653-60-55 07:57:003.4[facility] TYKMB2334-74-93 07:57:008.6 [facility] WFHET0984-41-48 07:57:82630Osvinwse [facility]annCHEM PANEL 2015-05-15 07:57:000.8[facility] RizpnncRVRAUEXKBJ1896-81-88 07:57:40416Hgueldpx KrhdajaVEPKILNCKN8008-75-80 07:57:0013.1[facility] VabzrhqCMBOBEJYQH2823-46-09 07:57:008.9[facility] KsvbettVIOBYPMBLV9279-75-60 07:57:0013.5[facility] ETIGFTXBJP8560-50-32 07:57:0014.1[facility] AjgffxsJFUWMYHWDT1883-35-72 07:57:00 4.85[facility] GkinzvaCTGIYAWPGO0447-92-09 07:57:0044.3[facility]annHEMATOLOGY 2015-05-15 07:57:0091.4[facility] PcbfhexDQCPEXJEKP8668-63-50 07:57:00* Test Item Value Reference Range Interpretation Comments MCH (test code = MCH) 29.1 pg 27.0-31.0 [facility] CmipavoSKNEXRNOQU2361-79-08 07:57:0031.9[facility]ann[facility]MAT[facility]Y 2015-05-15 07:57:0061.6[facility] TyrexqaNJUCTPUCVH8853-75-70 07:57:003.3[facility] LxzexlsDDVVKVBGBY7061-03-39 07:57:000.7[facility] HxcfwuqROKSMPXJZA0718-18-84 07:57:001.0[facility] DvzpqukHZSZOTMRFB8402-55-98 07:57:000.2[facility] ZAADIHPNFA3753-72-01 07:57:007.1[facility] XmsrbddCYTOWIIVAN8193-66-34 07:57:00 24.6[facility] RaxpmwzBZXCZVGHOA0344-97-11 07:57:008.3[facility] 2015-05-15 07:57:001.2[facility] QpekotwJOYAVHJDLB0097-55-57 07:57:005.5[facility] PTPWL2809-21-73 07:57:001[facility] STOOL 2015-05-15 07:57:002[facility] ZGTJI7705-40-58 07:57:00Moderate *ABN*(05/15/15 2:57 AM)[facility] SFGWF4450-55-78 07:57:00Negative *NA*(05/15/15 2:57 AM)[facility] UCSXK2012-43-83 07:57:006.0 [facility] LGTGV0875-35-27 07:57:00Negative (05/15/15 2:57 AM) [facility] BHHIV5657-80-02 07:57:004.0[facility] MSHWE5215-31-24 07:57:00Negative (05/15/15 2:57 AM)[facility] PMNQG4713-84-26 07:57:001.024[facility] POWPJ2845-57-96 07:57:00 Clear (05/15/15 2:57 AM)[facility] FUMRW8645-03-52 07:57:00Yellow *NA*(05/15/15 2:57 AM)[facility] WJKU9620-80-93 07:57:00Negative (05/15/15 2:57 AM)[facility] DQSUM2402-81-84 08:34:00Negative (02/14/15 3:34 AM)[facility] SRRVP9318-81-85 08:34:00Large *ABN*(02/14/15 3:34 AM)[facility] WQHZV5102-64-70 08:34:00Small *ABN*(02/14/15 3:34 AM)[facility] PRNMC5969-31-14 08:34:00Trace *ABN*(02/14/15 3:34 AM)[facility] HWHBN5165-15-47 08:34:00Negative (02/14/15 3:34 AM)[facility] GFCAD3739-84-61 08:34:000.2[facility] XUTAW3122-16-89 08:34:00Negative (02/14/15 3:34 AM)[facility] DTDXH3524-13-13 08:34:00* Test Item Value Reference Range Interpretation Comments UA pH (test code = UA pH) 6.0 1 5.0-8.0 [facility] EMZVZ1477-51-86 08:34:00* Test Item Value Reference Range Interpretation Comments UA Spec Grav (test code = UA Spec Grav) 1.025 1 [facility] GNTUF3370-40-58 08:34:00Slight Cloudy (02/14/15 3:34 AM) [facility] KMQWZ6455-37-07 08:34:00Yellow *NA*(02/14/15 3:34 AM) [facility] YDXGO9279-86-80 08:34:00None Seen 3(02/14/15 3:34 AM) [facility] DCWV0797-13-04 08:34:00Negative (02/14/15 3:34 AM)[facility] EHCSH6881-83-48 06:10:000.4[facility] DCKYL2041-69-15 06:10:0065[facility] LGWUQ8691-33-97 06:10:000.1[facility] IWIVZ6141-24-31 06:10:001.0[facility] HFNIB7184-11-76 06:10:003.8 [facility] PVEHI3841-55-44 06:10:003.9[facility]annCHE[facility] PANEL 2015-02-14 06:10:007.7[facility] NVYTG9502-12-96 06:10:0023[facility] EQWKR9570-47-33 06:10:0040[facility] WTZVS7572-58-26 06:10:000.5[facility] KHHJJ5152-21-15 06:10:0087[facility] DVYBK1126-10-14 06:10:0022[facility] XWUFA3139-36-79 06:10:81891 [facility] EHYSV4940-82-89 06:10:000.9[facility] PANEL 2015-02-14 06:10:003.5[facility] VSEBX3842-63-54 06:10:0083[facility] VACNS1709-09-40 06:10:005[facility] MOLJH0790-20-31 06:10:0016.5[facility] NVJRD5219-88-96 06:10:009.2[facility] PGYIX0575-27-60 06:10:73459Yqnyyadg [facility] FLYXM1149-65-80 05:56:00 Moderate *ABN*(09/29/14 11:56 PM)[facility] RLYVF7935-18-55 05:56:00Negative *NA*(09/29/14 11:56 PM)[facility] VDEKJ6596-85-98 05:56:00Trace *ABN*(09/29/14 11:56 PM)[facility] IWOYA4734-03-85 05:56:00Negative (09/29/14 11:56 PM)[facility] SMUDW2941-69-69 05:56:002[facility] NJWAJ0904-07-19 05:56:002[facility] OEWDT3875-14-03 05:56:00Yellow *NA*(09/29/14 11:56 PM)[facility] NQPAT5204-67-88 05:56:006.0[facility] NBEAA4259-51-78 05:56:001.020[facility] UNYPK0808-92-71 05:56:00Marked *ABN*(09/29/14 11:56 PM)[facility] WHKDR6981-89-80 05:55:53454Xxqpimns HermannCHEM LRTQV3592-27-55 05:55:231.9[facility] UQWCS3555-51-52 05:55:234.0[facility] FIPOH9138-77-43 05:55:42687Xvuzqnzb HermannCHEM KXQTQ8394-78-43 05:55:233.8[facility]CHE[facility] IEGHZ7082-78-54 05:55:2328 [facility] PCAYD7987-34-22 05:55:230.8[facility]annCHE[facility] PANEL 2014-09-30 05:55:239.1[facility] VBZXM3128-73-39 05:55:2310[facility] BBVYX8509-86-56 05:55:2389[facility] WVJUJ6636-87-34 05:55:234.1[facility] BOARZ9186-81-59 05:55:14939Shvblimg HermannCHEM CIEHT8745-19-76 05:55:94868Qzyvtoif HermannCHEM GEEMW2970-61-79 05:55:2336 [facility] DCFLP4391-14-92 05:55:2323[facility] PANEL 2014-09-30 05:55:230.6[facility] QGBYU0945-90-33 05:55:238.1[facility] CIHHG7607-46-81 05:55:04810Sxbyrxuf HermannCHEM ZAWUY9302-60-95 05:55:2310.1[facility] MVTSO0793-76-83 05:55:2312[facility] AGEEU7137-40-42 05:55:230.9[facility] IYJCP8238-64-63 05:55:234.3 [facility] PHTPP8913-84-71 05:55:2350[facility]annENDOCRINOLOGY 2014-09-30 05:55:23Negative *NA*(09/29/14 11:55 PM)[facility] 2014-09-30 05:55:2315.3[facility] HoaitudRVQIXYAZTJ4132-47-44 05:55:2344.8[facility] IlbhakyBAMATXDLBV1403-21-94 05:55:2313.5[facility] HioyzveICODSLYTZV9777-84-28 05:55:23* Test Item Value Reference Range Interpretation Comments MCH (test code = MCH) 30.0 pg 27.0-31.0 [facility] BgkadqsLAHUIBPGXL6380-05-15 05:55:2334.1[facility]annHEMATOLOGY 2014-09-30 05:55:2312.8[facility] QqycdymAYGMFMVCKN4907-42-89 05:55:235.10[facility] ArjwmfyTTRUKGGOVS6103-83-40 05:55:239.0[facility] EykxzhbXTISEABQCL3228-90-78 05:55:35867Kppepjac IupbzigFXUFSJVRIJ9056-74-18 05:55:2387.9[facility] XADLBXYJQG4543-87-88 05:55:230.1[facility] AygibvlOAUWIGEHDK7570-58-93 05:55:231.0 [facility] IrejdmiXDQUQHAIZA6198-27-59 05:55:230.6[facility]MAT[facility] 2014-09-30 05:55:2362.0[facility] VavaifjFHQMUTVGEQ4017-83-97 05:55:2325.2[facility] EnthajfJRLYEUHAVL4814-39-12 05:55:234.7[facility] QosxascCVSQZXFCSD2986-78-75 05:55:231.0[facility] GohlrpnMCDZXNTJIE9510-63-11 05:55:238.4[facility] FFXCCFJFDV6266-28-65 05:55:233.4[facility] RakzhgyFXRIXKEBVK6062-33-07 05:55:237.1 [facility]
[2020-04-13] MEDS: SODIUM CHLORIDE 0.9% 1000ML 1,000 ML IV SCH ×3 (02:00→21:56)
[2020-04-13] MEDS: ONDANSETRON HCL INJ 2MG/ML 2ML 2 MG/ML VIAL IV PRN ×4 (04:33→21:56)
[2020-04-13] MEDS: MORPHINE SULFATE 2 MG/ML SYR 1ML IV PRN ×4 (04:33→21:56)
[2020-04-13] MEDS ORDERED: ADDERALL XR 3030 MG PO (04:41)
[2020-04-13] MEDS ORDERED: AMBIEN10 MG PO (04:41)
--- NOTE | 2020-04-13 07:30 | NUR ---
PATIENT IN BED RESTING WITH NO S/S OF DISCOMFORT. IV FLUID INFUSING ORDERED. BED IN LOWER POSITION, CALL LIGHT AT REACH.
--- NOTE | 2020-04-13 09:11 | NUR ---
MD IN TO SEE PATIENT, NEW ORDER RECEIVED.
[2020-04-13 11:07] LABS: BASOPHILS % 0.6 % (0.0-1.0); EOSINOPHILS # (AUTO) 0.4 (0.0-0.4); EOSINOPHILS % 4.9 % (0.0-6.0); HEMATOCRIT 38.2 % (34.2-44.1); LYMPHOCYTES # (AUTO) 2.1 (1.0-3.2); LYMPHOCYTES % 28.4 % (18.0-39.1); MEAN CORPUSCULAR HEMOGLOBIN 28.8 pg (28-32); MEAN CORPUSCULAR HGB CONC 31.4 g/dL (31-35); MEAN CORPUSCULAR VOLUME 91.6 fL (81-99); MONOCYTES # (AUTO) 0.7 (0.2-0.8); MONOCYTES % 10.1 % (4.4-11.3); NEUTROPHILS % 55.7 % (38.7-80.0); PLATELET COUNT 239 x10e3/uL (140-360); RED BLOOD COUNT 4.17 x10e6/uL (3.6-5.1); RED CELL DISTRIBUTION WIDTH 13.4 % (11.7-14.4)
[2020-04-13] MEDS ORDERED: BUPIVACAINE 0.25% 30ML SDV INJ ONE (13:08)
[2020-04-13] MEDS ORDERED: BUPIVACAINE 0.25%/EPI 30ML SDV INJ ONE (13:11)
--- NOTE | 2020-04-13 13:30 | NUR ---
PATIENT OFF UNIT TO OR.
[2020-04-13] MEDS ORDERED: KETOROLAC TROMETHAMINE 30 MG/ML VIAL IV PRN (14:45)
[2020-04-13] MEDS ORDERED: HYDROCODONE/APAP 7.5MG-325MG 1 EA TAB PO PRN (14:45)
[2020-04-13] MEDS ORDERED: DEXAMETHASONE SOD PHOS INJ 4 MG/ML VIAL ONE (14:47)
[2020-04-13] MEDS ORDERED: PROPOFOL IV EMULSION 10 MG/ML 20 ML VIAL ONE (14:47)
[2020-04-13] MEDS ORDERED: SEVOFLURANE INHAL SOLN 250 ML PEN BTL ONE (14:47)
[2020-04-13] MEDS ORDERED: ATROPINE SULFATE 1 MG/ML VIAL ONE (14:47)
[2020-04-13] MEDS ORDERED: LIDOCAINE HCL 2% LOCAL INJ 5 ML SDV VIAL INJ ONE (14:47)
[2020-04-13] MEDS ORDERED: NEOSTIGMINE 1 MG/ML 10ML VIAL ONE (14:47)
[2020-04-13] MEDS ORDERED: ONDANSETRON HCL INJ 2MG/ML 2ML 2 MG/ML VIAL ONE ×2 (14:47→15:16)
[2020-04-13] MEDS ORDERED: FENTANYL CITRATE/PF 100MCG/2 ML INJ ONE (14:50)
[2020-04-13] MEDS ORDERED: METOCLOPRAMIDE HCL 10 MG/2ML VIAL ONE (15:16)
--- NOTE | 2020-04-13 15:30 | NUR ---
PATIENT BACK TO UNIT FROM OR. REPORT RECEIVED FROM REGINA LYNNE. PATIENT HAD A LAPAROSCOPIC APPENDECTOMY, THREE TROCAR SITES TO ABDOMEN DRY AND INTACT. PATIENT SLEEPY AT THIS TIME. IV FLUID INFUSING ORDERED. PATIENT IS ON CLEAR LIQUID DIET, ICE WATER PROVIDED. IN BED RESTING WITH CALL LIGHT AT REACH. V/S 97.8-50-18-96/73 AND 97% ON RA.
[2020-04-13] MEDS: PANTOPRAZOLE 40 MG 10ML VIAL IV SCH (16:10)
[2020-04-13] MEDS: LEVOFLOXACIN 500MG/D5W 100ML 100 ML IV SCH (16:10)
--- NOTE | 2020-04-13 19:16 | NUR ---
PATIENT ASSISTED TO THE RESTROOM AND BACK TO BED. VOIDED LARGE AMOUNT OF CLEAR YELLOW URINE. CALL LIGHT AT REACH.
--- NOTE | 2020-04-13 19:46 | Operative Report ---
DATE OF PROCEDURE: 04/13/2020 SURGEON: Diego Campbell MD PREOPERATIVE DIAGNOSIS: Right lower quadrant abdominal pain, rule out appendicitis versus gynecological pathology. POSTOPERATIVE DIAGNOSIS: Right lower quadrant abdominal pain secondary to ruptured right ovarian cyst. OPERATION PERFORMED: Diagnostic laparoscopy, appendectomy, and peritoneal lavage. ANESTHESIA: General endotracheal. COMPLICATIONS: None. ESTIMATED BLOOD LOSS: Minimal. DESCRIPTION OF PROCEDURE: With the patient lying in bed in the supine position under good general endotracheal anesthesia, the abdomen was prepped with Betadine solution and draped in the usual manner. A Veress needle was introduced into the umbilicus and pneumoperitoneum was established without any difficulty. A 12 mm trocar was placed into the umbilicus and a 10 mm video laparoscope was placed into the intraabdominal cavity. Under direct vision, a 5 mm trocar was placed in the suprapubic region and another 5 mm trocar was placed in the left lower quadrant. Video laparoscopy at this point revealed that there was some bloody fluid in the pelvis. Examination of the appendix showed it to be a long appendix that extended all the way down to the pelvis. It did not appear to be acutely inflamed. The terminal ileum was inspected. There was no signs of any ileitis present. There was no Meckel's diverticulum. Examination of the pelvis at this point revealed the left adnexa to be within normal limits. Examination of the right adnexa revealed a recently ruptured right ovarian follicular cyst. There was some bloody fluid in the pelvis. All of the bloody fluid was then aspirated and the area was lavaged and all the fluid was aspirated. There was no sign of any further bleeding. This would explain the patient's right lower quadrant abdominal pain. We decided to go ahead and proceed with the appendectomy to make sure that if the patient developed any significant lower abdominal pain in the future that appendicitis is no longer necessary to be considered. The base of the appendix was then dissected and divided with an application of the Endo-JARETT stapler. The mesentery of appendix was then divided with another application of the Endo-JARETT vascular stapler and the appendix was removed through the umbilicus without any difficulty. Laparoscopy was then again carried out. Perfect hemostasis was ascertained. The staple lines were fine. Examination of the pelvis again did not reveal any sign of any further bleeding. The pneumoperitoneum was then evacuated and all the trocars were removed under direct vision. The midline fascia at the umbilicus was then closed with a cqmxqt-sn-zsqve of 0 Vicryl. All layers were infiltrated on the way out with solution of 0.25% Marcaine. Subcutaneous tissue was approximated with 3-0 Vicryl and the skin was closed with subcuticular 5-0 Vicryl. Benzoin, Steri-Strips, and Band-Aids were applied. The sponge, lap, and needle count was correct. The patient tolerated the procedure well and returned to the recovery room in stable condition. MD GUNJAN Woods/JOSIE /[id number]
--- NOTE | 2020-04-13 21:47 | NUR ---
Resumed care of patient. Patient awake and resting in bed, respirations even and unlabored, c/o abdominal pain 02/23, requesting PRN pain medication at this time. No s/s of distress otherwise. Patient refusing SCDs at this time, stating that she has been getting up and ambulating to restroom frequently. Education provided. Bed locked and in lowest position, side rails upx3,call light placed within reach. Patient instructed to call for assistance if needed, verbalized understanding. All safety measures in place.
[2020-04-14] VITALS (7 sets, daily range): BP systolic 99–115; BP diastolic 63–82
[2020-04-14] MEDS: SODIUM CHLORIDE 0.9% 1000ML 1,000 ML IV SCH ×3 (00:30→17:21)
[2020-04-14] MEDS: ONDANSETRON HCL INJ 2MG/ML 2ML 2 MG/ML VIAL IV PRN ×4 (02:48→16:55)
[2020-04-14] MEDS: MORPHINE SULFATE 2 MG/ML SYR 1ML IV PRN ×4 (02:48→16:55)
[2020-04-14 06:03] LABS: BASOPHILS % 0.3 % (0.0-1.0); EOSINOPHILS % 0.1 % (0.0-6.0); HEMATOCRIT 34.7 % (34.2-44.1); HEMOGLOBIN 10.9 g/dL (12.0-16.0); LYMPHOCYTES # (AUTO) 1.6 (1.0-3.2); MEAN CORPUSCULAR HEMOGLOBIN 28.3 pg (28-32); MEAN CORPUSCULAR HGB CONC 31.4 g/dL (31-35); MEAN CORPUSCULAR VOLUME 90.1 fL (81-99); MONOCYTES # (AUTO) 0.8 (0.2-0.8); NEUTROPHILS # (AUTO) 9.5 (2.1-6.9); NEUTROPHILS % 79.2 % (38.7-80.0); PLATELET COUNT 226 x10e3/uL (140-360); RED BLOOD COUNT 3.85 x10e6/uL (3.6-5.1); RED CELL DISTRIBUTION WIDTH 12.9 % (11.7-14.4)
[2020-04-14 06:42] LABS: ANION GAP 11.9 mmol/L (8-16); BLOOD UREA NITROGEN 8 mg/dL (7-26); BUN/CREATININE RATIO 12 (6-25); CALCIUM 7.6 mg/dL (8.4-10.2); CARBON DIOXIDE 20 mmol/L (22-29); CHLORIDE 109 mmol/L (98-107); CREATININE, SERUM 0.67 mg/dL (0.57-1.11); EST GLOMERULAR FILTRATION RATE > 60 ML/MIN (60-); GLUCOSE 100 mg/dL (74-118); POTASSIUM 3.9 mmol/L (3.5-5.1); SODIUM 137 mmol/L (136-145)
--- NOTE | 2020-04-14 07:17 | NUR ---
PATIENT IN BED RESTING WITH HEAD OF BED ELEVATED, NO DISTRESS NOTED. 3 TROCAR SITES INTACT TO ABDOMEN. IV FLUID INFUSING ORDERED. BED IN LOWER POSITION, CALL LIGHT AT REACH.
--- NOTE | 2020-04-14 11:45 | NUR ---
PATIENT AMBULATED TO THE RESTROOM AND BACK TO BED. IV FLUID INFUSING ORDERED. CALL LIGHT AT REACH.
[2020-04-14] MEDS: PANTOPRAZOLE 40 MG 10ML VIAL IV SCH (15:18)
[2020-04-14] MEDS: LEVOFLOXACIN 500MG/D5W 100ML 100 ML IV SCH (15:18)
--- NOTE | 2020-04-14 17:36 | NUR ---
PATIENT C/O PAIN, MEDICATED ORDERED. NO MORE C/O PAIN. IN BED WITH CALL LIGHT AT REACH.
--- NOTE | 2020-04-14 19:00 | NUR ---
RECEIVED PATIENT IN BEDSIDE SHIFT REPORT. PATIENT RESTING IN BED AT THIS TIME. PAIN 5/10 AT THIS TIME, WILL MEDICATE WHEN ABLE. NO S&S OF DISTRESS NOTED. BED LOCKED IN LOWEST POSITION, SIDE RAILS UPX2, CALL LIGHT IN REACH.
--- NOTE | 2020-04-14 20:10 | NUR ---
IV TO R FA 20G REMOVED AT THIS TIME. CATHETER TIP IN TACT. PRESSURE DRESSING APPLIED.
[2020-04-14] MEDS ORDERED: TYLENOL # 31 EA PO (20:12)
[2020-04-14] MEDS ORDERED: LEVAQUIN500 MG PO (20:13)
--- NOTE | 2020-04-14 20:25 | NUR ---
PATIENT DISCHARGED AT THIS TIME. DISCHARGE INSTRUCTIONS SIGNED AT 2019. PRESCRIPTIONS GIVEN TO PATIENT, INITIALED COPY IN CHART. OOB TOLERATED, ADVANCE DIET TOLERATED, FOLLOW UP WITH MD MERAZ IN ONE WEEK. ANSWERED QUESTIONS. SHOWED PATIENT ALL PARTS OF DISCHARGE PAPERWORK, INCLUDING INSTRUCTIONS FOR GENERAL POST-OP. NO FURTHER QUESTIONS. INSTRUCTIONS PLACED IN FOLDER AND PATIENT PUT IN PERSONAL BAG. PATIENT ESCORTED WITH STAFF TO FRONT VIA WHEELCHAIR AND ASSISTED TO PRIVATE CAR. PATIENT SAFELY IN CAR.
== END 2020-04-14 20:29 | disposition home or self-care (01) ==
LOC: ER 19:52 → ERHOLD 04-13 00:22 → MED/SURG3 04-13 01:45
PROVIDERS: ADMIT Surgery; ATTEND Surgery
DX: K35.33 Acute appendicitis with perforation, localized peritonitis, and gangrene, with abscess (principal); N83.01 Follicular cyst of right ovary; Z11.59 Encounter for screening for other viral diseases; F98.8 Other specified behavioral and emotional disorders with onset usually occurring in childhood and adolescence; F41.9 Anxiety disorder, unspecified
CPT/HCPCS: 36415 ×3; 44970; 49084; 74177; 76830; 76856; 80048; 80053; 80307; 81001; 81025; 82150; 83690; 85025 ×3; 88304; 99284; C9113 ×2; G0378 ×2; J0461; J1100; J1885; J1956 ×2; J2001; J2270 ×4; J2405 ×3; J2704; J2710; J2765; J3010; J7030 ×3; Q9967; U0002

== ENCOUNTER 2020-04-17 16:53 | Inpatient (IN) | payer OTHER ==
[~2020-04-17] VITALS: Ht 167.6 cm; Wt 130.2 kg
[~2020-04-17 16:53] MED LIST changes: +ADDERALL XR 3030 MG PO; +AMBIEN10 MG PO; +LEVAQUIN500 MG PO; +TYLENOL # 31 EA PO
[2020-04-17] MEDS ORDERED: ONDANSETRON HCL INJ 2MG/ML 2ML 2 MG/ML VIAL IV STA ×2 (16:58→18:59)
[2020-04-17] MEDS ORDERED: SODIUM CHLORIDE 0.9% 1000ML 1,000 ML IV STA (16:58)
[2020-04-17] MEDS ORDERED: PANTOPRAZOLE 40 MG 10ML VIAL IV STA (16:58)
[2020-04-17] MEDS ORDERED: MEROPENEM 1GM 100 ML IV ONE (17:30)
[2020-04-17] MEDS ORDERED: SODIUM CHLORIDE 0.9% 50ML 50 ML ONE (17:38)
[2020-04-17] MEDS ORDERED: DIATRIZOATE MEGL/DIATRIZOA SOD 30 ML BTL PO ONE (17:38)
[2020-04-17] MEDS ORDERED: IOPAMIDOL 370 MG/ML 200 ML INFUS..BTL INJ ONE (17:38)
--- OUTSIDE RECORDS SUMMARY | 2020-04-17 18:04 | XMS REPORT | Continuity of Care Document ---
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 21:00:00 CDT Inactive 01/28/2019 [facility] Adderall 30 mg, Route: PO, BID , Dosing Weight 127.273, kg, Start date: 01/27/19 17:00:00 CDT, Duration: 30 day, Stop date: 02/26/19 9:00:00 CDT No Longer Active 01/27/2019 [facility] *Please bring pt's own adderall to pharmacy for label* *Please bring pt's own adderall to pharmacy for label*, ATTN:[place], Drug form: MISC, Route: MISC, QSHIFT, 01/27/19 16:00:00 CDT, Duration: 30 day, Stop date: 02/26/19 8:00:00 CDT No Longer Active 01/27/2019 [facility] Acetaminophen 325 MG / Hydrocodone Nereyda trate 5 MG Oral Tablet [Cerulean 5/325] Notes: (Same as: Cerulean 325/5) Do not ex ceed 4gm/day of acetaminophen. No Longer Activ e 01/27/2019 [facility] Vancomycin 1 ea, Route: MISC, ONCALL, Dosing Weight 125, kg, Start date: 01/27/19 5:00:00 CDT, Duration: 5 day, Stop date: 02/01/19 4:59:00 CDT, Pharmacy to dose, ABX Indication: Skin/Soft Tissue Infection Inactive 01/27/2019 [facility] vancomycin + Sodium Chloride 0.9% IV 250 mL 2001 mg: infuse over 2.5 hours For adult patients only: Round to nearest 250 mg per Medical Staff approval MEDICATION WASTE Product Size: 1000 mg Product Wasted: ___ mg No Longer Active 01/27/2019 [facility] Lovenox Notes: (Same as: Loven ox) No Longer Active 01/27/2019 [facility] Morphine Notes: (Same as:MORPh ine Sulfate) No Longer Active 01/27/2019 [facility] Dextrose 50% Syringe 25 gm, 50 mL, Route: IVP, Drug Form: INJ, Dosing Weight 125, kg, PRN, PRN Blood Glucose Results, Start date: 01/27/19 4:35:00 CDT, Duration: 30 day, Stop date: 02/26/19 4:34:00 CDT No Longer Active 01/27/2019 [facility] Acetaminophen Notes: Do not ex ceed 4 gm/day. (Same as: Tylenol) No Longer Active 01/27/2019 [facility] Ondansetron Notes: (Same as: Kathy diaz) MEDICATION WASTE Product Size: 4 mg Product Wasted: ___ mg No Longer Active 01/27/2019 [facility] Glucagon 1 mg, Route: IM, Drug form: PDR/INJ, PRN, Dosing Weight 125, kg, PRN Blood Glucose Results, Start date: 01/27/19 4:35:00 CDT, Duration: 30 day, Stop date: 02/26/19 4:34:00 CDT No Longer Active 01/27/2019 [facility] Morphine 4 mg, Route: IVP, ONC E, Dosing Weight 125, kg, Priority: STAT, Start date: 01/27/19 3:29:00 CDT, Stop date: 01/27/19 3:29:00 CDT Inactive 01/27/2019 [facility] Vancomycin 1,000 mg, Route: IV PB, Drug form: INJ, ONCE, Dosing Weight 125, kg, Priority: STAT, Start date: 01/27/19 3:28:00 CDT, Stop date: 01/27/19 3:28:00 CDT, ABX Indication: Skin/Soft Tissue Infection Inactive 01/27/2019 [facility] Mupirocin 20 MG/ML Topical Cream 1 appl, TOP, TID, X 5 day, # 15 gm, 0 Refill(s) Active 12/13/[address] [facility] azithromycin 500 mg oral tablet 500 mg = 1 tab, PO, Daily, X 5 day, # 5 tab, 0 Refill(s) Active 12/13/[address] [facility] tedizolid 200 mg oral tablet 2 00 mg = 1 tab, PO, Daily, X 6 day, # 6 tab, 0 Refill(s), Pharmacy: [facility] [id number] Active 12/09/[address] [facility] Acetaminophen 300 MG / Codeine Phosphate 30 MG Oral Tablet [Tylenol with Codeine #3] 1 tab, PO, Q6H, PRN Pain, X 7 day, # 30 tab, 0 Refill(s) Active 12/09/[address] [facility] vancomycin + Sodium Chloride 0.9% IV 100 mL Notes: TIME CRITICAL MEDICATION (Same As: Vancocin) For adult patients only: Round to nearest 250 mg per Medical Staff approval No Longer Active 12/09/[address] [facility] vancomycin + Sodium Chloride 0.9% IV 250 mL 2001 mg: infuse over 2.5 hours For adult patients only: Round to nearest 250 mg per Medical Staff approval MEDICATION WASTE Product Size: 1000 mg Product Wasted: ___ mg No Longer Active 12/08/2018 [facility] Dilaudid Notes: (Same as: Dila udid) No Longer Active 12/07/[address] [facility] Naloxone Notes: Same as Narcan Inactive 12/06/2018 [facility] Ondansetron Notes: (Same as: Kathy diaz) MEDICATION WASTE Product Size: 4 mg Product Wasted: ___ mg Inactive 12/06/[address] [facility] Flumazenil Notes: (Same as: Ro mazicon) Inactive 12/06/[address] [facility] Hydromorphone Notes: Same as: Dilaudid Inactive 12/06/[address] [facility] Fentanyl Notes: (Same as: Subl imaze) Preservative free. Inactive 12/06/[address] [facility] Hydralazine Notes: (Same as: A presoline) Push over 5 minutes Inactive 12/06/2018 [facility] dexamethasone (ANES) Route: IV , Drug form: INJ, ONCE, Stop date: 12/06/18 12:33:00 CDT Inactive 12/06/2018 [facility] ondansetron (ANES) Route: IV, Drug form: INJ, ONCE, Stop date: 12/06/18 12:33:00 CDT Inactive 12/06/2018 [facility] ketOROLAC (ANES) IV, ONCE Inactive 12/06/2018 [facility] fentaNYL (ANES) Route: IV, Juan g form: INJ, ONCE, Stop date: 12/06/18 12:33:00 CDT Inactive 12/06/2018 [facility] midazolam (ANES) Route: IV, Dr ug form: SOLN, ONCE, Stop date: 12/06/18 12:33:00 CDT Inactive 12/06/2018 [facility] propofol (ANES) Route: IV, Juan g form: INJ, ONCE, Stop date: 12/06/18 12:33:00 CDT Inactive 12/06/[address] [facility] vancomycin (ANES) 1000 mg Rout e: IV, Drug form: INJ, Start date: 12/06/18 11:45:00 CDT, Stop date: 12/06/18 12:45:00 CDT Inactive 12/06/[address] [facility] Lactated Ringers Injection IV (ANES) 1000 mL Route: IV, Total Volume: 1,000, Start date: 12/06/18 11:45:00 CDT, Stop date: 12/06/18 12:45:00 CDT Inactive 12/06/[address] [facility] Calcium Chloride 0.0014 MEQ/ML / Potassi um Chloride 0.004 MEQ/ML / Sodium Chloride 0.103 MEQ/ML / Sodium Lactate 0.028 MEQ/ML Injectable Solution 1,000 mL, Rate: 25 ml/hr, Infuse over: 4 0 hr, Route: IV, Dosing Weight 58.778 kg, Total Volume: 1,000, Start date: 12/06/18 11:00:00 CDT, Duration: 30 day, Stop date: 01/05/19 10:59:00 CDT, 1.66, m2 Inactive 12/06/[address] [facility] vancomycin + Sodium Chloride 0.9% IV 250 mL 2001 mg: infuse over 2.5 hours For adult patients only: Round to nearest 250 mg per Medical Staff approval MEDICATION WASTE Product Size: 1000 mg Product Wasted: ___ mg No Longer Active 12/05/2018 [facility] Spironolactone Notes: (Same As : Aldactone) No Longer Active 12/05/2018 [facility] Ambien Notes: (Same As: Ambien) No Longer Active 12/05/[address] [facility] vancomycin + Sodium Chloride 0.9% IV 250 mL 2001 mg: infuse over 2.5 hours For adult patients only: Round to nearest 250 mg per Medical Staff approval MEDICATION WASTE Product Size: 1000 mg Product Wasted: ___ mg No Longer Active 12/04/2018 [facility] Adderall 30 mg, PO, BID, 0 Ref ill(s) Active 12/04/2018 [facility] Enoxaparin Notes: (Same as: Lo venox) No Longer Active 12/04/[address] [facility] Vancomycin 2001 mg: infuse ov er 2.5 hours For adult patients only: Round to nearest 250 mg per Medical Staff approval No Longer Active 12/04/[address] [facility] Vancomycin 2001 mg: infuse ov er 2.5 hours For adult patients only: Round to nearest 250 mg per Medical Staff approval MEDICATION WASTE Product Size: 1000 mg Product Wasted: ___ mg Inactive 12/04/[address] [facility] Dextrose 50% Syringe 25 gm, 50 mL, Route: IVP, Drug Form: INJ, Dosing Weight 126.364, kg, PRN, PRN Blood Glucose Results, Start date: 12/03/18 21:07:00 CDT, Duration: 30 day, Stop date: 01/02/19 21:06:00 CDT No Longer Active 12/04/2018 [facility] Glucagon 1 mg, Route: IM, Drug form: PDR/INJ, PRN, Dosing Weight 126.364, kg, PRN Blood Glucose Results, Start date: 12/03/18 21:07:00 CDT, Duration: 30 day, Stop date: 01/02/19 21:06:00 CDT No Longer Active 12/04/2018 [facility] Bisacodyl Notes: (Same As: Dul colax, Bisco-Lax) No Longer Active 12/04/[address] [facility] Ondansetron Notes: (Same as: Kathy diaz) MEDICATION WASTE Product Size: 4 mg Product Wasted: ___ mg No Longer Active 12/04/2018 [facility] Melatonin Notes: (Same as: Raissa atonin) No Longer Active 12/04/2018 [facility] Acetaminophen Notes: Do not ex ceed 4 gm/day. (Same as: Tylenol) No Longer Active 12/04/[address] [facility] Hydromorphone Notes: Same as: Dilaudid No Longer Active 12/04/[address] [facility] Tramadol Notes: Not to exceed 400mg/day. (Same As: Ultram) No Longer Active 12/04/[address] [facility] LR IV 1,000 mL 1,000 mL, Rate: 125 ml/hr, Infuse over: 8 hr, Route: IV, Dosing Weight 126.364 kg, Total Volume: 1,000, Start date: 12/03/18 21:05:00 CDT, Duration: 30 day, Stop date: 01/02/19 21:04:00 CDT, 2.47, m2 No Longer Active 12/04/2018 [place] Calcium Gluconate Notes: WASTE : F/P - Sink; E - Municipal Trash Bin No Longer Active 12/04/2018 [place] Potassium Chloride Notes: ([facility] as: K-Dur 20) "Do Not Crush" Give with food and full glass of water For patients unable to swallow tablet, dissolve in one half glass of water. Allow about 2 minutes for the tab lets to disintegrate. Stir before giving to prepare slurry and administer. Please exclude Patients with feeding tube less than 14 [place] (Dobhoff, J-tube etc) and pediatric and patients. No Longer Active 12/04/2018 [place] Magnesium Sulfate Notes: WASTE : F/P - Sink; E - Municipal Trash Bin No Longer Active 12/04/2018 [place] potassium phosphate Notes: ([facility] as: K Phosphate.) Do not infuse phosphorous concurrently in the same line as TPN or IVF that contains calcium. For double lumen central lines, phosphorous may be infused in a separate lumen from TPN. 1 mMol phoshate has 1.47 mEq potassium Infuse over 4 hours No Longer Active 12/04/2018 [place] sodium phosphate Notes: Infuse over 4 hour. Do not infuse phosphorous concurrently in the same line as TPN or IVF that contains calcium. For double lumen central lines, phosphorous may be infused in a separate lumen from TPN. No Longer Active 12/04/2018 [place] Magnesium Oxide Notes: (Same a s: Mag-Ox 400) Magnesium oxide [id number] elemental magnesium Dose=____mg magnesium oxide (___mg elemental magnesium) No Longer Active 12/04/2018 [place] potassium phosphate-sodium phosphate 250 mg-280 mg-160 mg oral powder for reconstitution Notes: (Same as: Phos-NaK) Each 1.5 gm pkt has 250mg phosphorous. Mix w/2.5oz water and stir. No Longer Active 12/04/2018 [place] Morphine 4 mg, Route: IVP, ONC E, Dosing Weight 126.364, kg, Priority: STAT, Start date: 12/03/18 20:56:00 CDT, Stop date: 12/03/18 20:56:00 CDT Inactive 12/04/[address] [facility] Ondansetron 4 mg, Route: IVP, Drug form: INJ, ONCE, Dosing Weight 126.364, kg, Priority: STAT, Start date: 12/03/18 20:56:00 CDT, Stop date: 12/03/18 20:56:00 CDT Inactive 12/04/[address] [facility] Sodium Chloride 0.9% (Bolus) IV 1,000 mL, 1000 ml/hr, Infuse Over: 1 hr, Route: IV, 1,000, Drug form: INJ, ONCE, Priority: STAT, Dosing Weight 126.364 kg, Start date: 12/03/18 18:40:00 CDT, Stop date: 12/03/18 18:40:00 CDT Inactive 12/03/[address] [facility] Morphine 4 mg, Route: IVP, ONC E, Dosing Weight 126.364, kg, Priority: STAT, Start date: 12/03/18 18:40:00 CDT, Stop date: 12/03/18 18:40:00 CDT Inactive 12/03/[address] [facility] Vancomycin 1,000 mg, Route: IV PB, ONCE, Dosing Weight 126.364, kg, Priority: STAT, Start date: 12/03/18 18:40:00 CDT, Stop date: 12/03/18 18:40:00 CDT, ABX Indication: Skin/Soft Tissue Infection Inactive 12/03/2018 [facility] Saline Flush 0.9% Notes: (Same as: BD Posiflush) No Longer Active 12/03/[address] [facility] linezolid 600 mg oral tablet 6 00 mg = 1 tab, PO, [id number], X 10 day, # 20 tab, 0 Refill(s), Pharmacy: [facility] [id number] Active 10/12/2018 [facility] Morphine Notes: (Same as:MORPh ine Sulfate) No Longer Active 10/12/2018 [facility] linezolid Notes: Protect from light. (Same as: Zyvox) No Longer Active 10/11/2018 [facility] Vancomycin 2001 mg: infuse ov er 2.5 hours For adult patients only: Round to nearest 250 mg per Medical Staff approval MEDICATION WASTE Product Size: 1000 mg Product Wasted: ___ mg Inactive 10/11/2018 [facility] Lovenox Notes: (Same as: Loven ox) No Longer Active 10/11/2018 [facility] Vancomycin 1 ea, Route: MISC, ONCALL, Dosing Weight 133.182, kg, Priority: STAT, Start date: 10/11/18 10:46:00 EDITOR, Duration: 1 day, Stop date: 10/12/18 10:45:00 EDITOR, Pharmacy to dose, ABX Indication: Urinary T ract Infection Inactive 10/11/2018 [facility] Ambien Notes: (Same As: Ambien) No Longer Active 10/11/2018 [facility] Acetaminophen 300 MG / Codeine Phosphate 30 MG Oral Tablet [Tylenol with Codeine #3] Notes: Do not exceed 4gm/day of acetamin ophen. (Same as: Tylenol with Codeine # 3) No Longer Active 10/11/2018 [facility] Dextrose 50% Syringe 25 gm, 50 mL, Route: IVP, Drug Form: INJ, Dosing Weight 133.182, kg, PRN, PRN Blood Glucose Results, Start date: 10/11/18 10:12:00 EDITOR, Duration: 30 day, Stop date: 11/10/18 11:11:00 CDT No Longer Active 10/11/2018 [facility] Glucagon 1 mg, Route: IM, Drug form: PDR/INJ, PRN, Dosing Weight 133.182, kg, PRN Blood Glucose Results, Start date: 10/11/18 10:12:00 EDITOR, Duration: 30 day, Stop date: 11/10/18 11:11:00 CDT No Longer Active 10/11/2018 [facility] Docusate Notes: (Same as: Cola ce) (Do Not Crush) No Longer Active 10/11/2018 [facility] Dextrose 50% Syringe 25 gm, 50 mL, Route: IVP, Drug Form: INJ, Dosing Weight 133.182, kg, PRN, PRN Blood Glucose Results, Start date: 10/11/18 8:50:00 EDITOR, Duration: 30 day, Stop date: 11/10/18 9:49:00 CDT No Longer Active 10/11/2018 [facility] Glucagon 1 mg, Route: IM, Drug form: PDR/INJ, PRN, Dosing Weight 133.182, kg, PRN Blood Glucose Results, Start date: 10/11/18 8:50:00 EDITOR, Duration: 30 day, Stop date: 11/10/18 9:49:00 CDT No Longer Active 10/11/2018 [facility] Ondansetron Notes: (Same as: Kathy diaz) MEDICATION WASTE Product Size: 4 mg Product Wasted: ___ mg No Longer Active 10/11/2018 [facility] COLLAGENASE 0.25 UNT/MG Topical Ointment [Santyl] 1 appl, TOP, Daily, # 15 gm, 0 Refill(s) No Longer Active 10/11/2018 [facility] Spironolactone 50 mg, PO, Polina y, # 60 tab, 0 Refill(s) Active 10/11/2018 [facility] Zolpidem tartrate 10 MG Oral Tablet [Ambien] 10 mg = 1 tab, PO, Bedtime, # 14 tab, 0 Refill(s) Active 10/11/2018 [facility] Acetaminophen 325 MG / Hydrocodone Nereyda trate 5 MG Oral Tablet [Cerulean 5/325] 1 tab, Route: PO, Drug Form: TAB, Dosing Weight 133.005, kg, ONCE, STAT, Start date: 10/11/18 3:20:00 EDITOR, Stop date: 10/11/18 3:20:00 EDITOR Inactive 10/11/[address] [facility] Ibuprofen 600 mg, Route: PO, D rug form: TAB, ONCE, Dosing Weight 133.005, kg, Priority: STAT, Start date: 10/11/18 1:55:00 EDITOR, Stop date: 10/11/18 1:55:00 EDITOR Inactive 10/11/[address] [facility] Vancomycin 2001 mg: infuse ov er 2.5 hours For adult patients only: Round to nearest 250 mg per Medical Staff approval MEDICATION WASTE Product Size: 1000 mg Product Wasted: ___ mg No Longer Active 10/11/[address] [facility] Minocycline 100 mg, PO, BID, 0 Refill(s) No Longer Active 10/05/2018 [facility] Acetaminophen 300 MG / Codeine Phosphate 30 MG Oral Tablet [Tylenol with Codeine #3] 1 tab, PO, Q4H, PRN Pain, not to exceed 4000 mg acetaminophen per day, X 3 day, # 12 tab, 0 Refill(s) No Longer Active 09/06/2018 [facility] Ondansetron 4 MG Disintegrating Tablet [Zofran] 4 mg = 1 tab, PO, TID, # 15 tab, 0 Refill(s) No Longer Active 09/06/2018 [facility] Morphine Notes: (Same as:MORPh ine Sulfate) Inactive 09/06/2018 [facility] Pepcid Notes: (Same as: Pepcid ) Can be dilute in 5-10cc NS IVP: Slow IV push over at least 2 minutes. Inactive 09/06/2018 [facility] Zofran Notes: (Same as: Zofran ) MEDICATION WASTE Product Size: 4 mg Product Wasted: ___ mg Inactive 09/06/2018 [facility] Morphine 4 mg, Route: IVP, ONC E, Dosing Weight 120.455, kg, Priority: STAT, Start date: 09/06/18 0:58:00 EDITOR, Stop date: 09/06/18 0:58:00 EDITOR Inactive 09/06/2018 [facility] Zofran 4 mg, Route: IVP, Drug form: INJ, ONCE, Dosing Weight 120.455, kg, Priority: STAT, Start date: 09/06/18 0:58:00 EDITOR, Stop date: 09/06/18 0:58:00 EDITOR Inactive 09/06/2018 [facility] Sodium Chloride 0.9% (Bolus) IV 1,000 mL, Infuse Over: 1 hr, Route: IV, ONCE, Priority: STAT, Dosing Weight 120.455 kg, Start date: 09/06/18 0:57:00 EDITOR, Stop date: 09/06/18 0:57:00 EDITOR Inactive 09/06/2018 [facility] Acetaminophen 300 MG / Codeine Phosphate 30 MG Oral Tablet [Tylenol with Codeine #3] 1 tab, PO, Q12H, PRN Pain, X 5 day, # 10 tab, 0 Refill(s) No Longer Active 08/30/2018 [place] heparin sodium, porcine 2500 UNT/ML Injectable Solutio n Notes: porcine heparin No Longer Active 08/30/[address] [facility] Vancomycin 2001 mg: infuse ov er 2.5 hours For adult patients only: Round to nearest 250 mg per Medical Staff approval MEDICATION WASTE Product Size: 1000 mg Product Wasted: ___ mg No Longer Active 08/28/[address] [facility] Saline Flush 0.9% Notes: (Same as: BD Posiflush) No Longer Active 08/27/[address] [facility] Lidocaine Hydrochloride 10 MG/ML Injectable Solution Notes: (Same as: Xylocaine) No Longer Active 08/27/[address] [facility] Saline Flush 0.9% Notes: (Same as: BD Posiflush) No Longer Active 08/27/[address] [facility] morphine Sulfate Notes: (Same as:MORPhine Sulfate) No Longer Active 08/26/[address] [facility] vancomycin + Sodium Chloride 0.9% IV 250 mL 2001 mg: infuse over 2.5 hours For adult patients only: Round to nearest 250 mg per Medical Staff approval MEDICATION WASTE Product Size: 1000 mg Product Wasted: ___ mg No Longer Active 08/25/[address] [facility] vancomycin + Sodium Chloride 0.9% IV 250 mL 2001 mg: infuse over 2.5 hours For adult patients only: Round to nearest 250 mg per Medical Staff approval MEDICATION WASTE Product Size: 1000 mg Product Wasted: ___ mg No Longer Active 08/25/[address] [facility] Tramadol Notes: Not to exceed 400mg/day. (Same As: Ultram) No Longer Active 08/25/[address] [facility] sennosides, RETIREMENT Notes: (Same a s: Senokot) No Longer Active 08/25/[address] [facility] Judith Sandoval Notes: (Same A s: Judith Sandoval) "Do Not Crush" No Longer Active 08/25/[address] [facility] Melatonin Notes: (Same as: Raissa atonin) No Longer Active 08/25/[address] [facility] Morphine 2 mg, 1 mL, Route: IV P, Drug form: SOLN, Q4H, Dosing Weight 127.727, kg, PRN Pain Score 7-10, Start date: 08/24/18 19:47:00 EDITOR, Duration: 30 day, Stop date: 09/23/18 19:46:00 EDITOR No Longer Active 08/25/[address] [facility] Acetaminophen 325 MG / Hydrocodone Nereyda trate 10 MG Oral Tablet [Cerulean 10/325] Notes: Do not exceed 4gm/day of acetamin ophen. (Same as: Cerulean 325/10) No Longer Active 08/25/[address] [facility] Vancomycin 2001 mg: infuse ov er 2.5 hours For adult patients only: Round to nearest 250 mg per Medical Staff approval MEDICATION WASTE Product Size: 1000 mg Product Wasted: ___ mg No Longer Active 08/24/2018 [facility] Dextrose 50% Syringe 12.5 gm, 25 mL, Route: IVP, Drug Form: INJ, Dosing Weight 136.364, kg, PRN, PRN Blood Glucose Results, Start date: 08/24/18 14:32:00 EDITOR, Duration: 30 day, Stop date: 09/23/18 14:31:00 EDITOR No Longer Active 08/24/[address] [facility] Glucagon 1 mg, Route: IM, Drug form: PDR/INJ, PRN, Dosing Weight 136.364, kg, PRN Blood Glucose Results, Start date: 08/24/18 14:32:00 EDITOR, Duration: 30 day, Stop date: 09/23/18 14:31:00 EDITOR No Longer Active 08/24/2018 [facility] Ondansetron Notes: (Same as: Kathy diaz) MEDICATION WASTE Product Size: 4 mg Product Wasted: ___ mg No Longer Active 08/24/2018 [facility] Acetaminophen Notes: Do not ex ceed 4 gm/day. (Same as: Tylenol) No Longer Active 08/24/[address] [facility] Morphine 4 mg, Route: IVP, ONC E, Dosing Weight 120.455, kg, Start date: 08/24/18 14:22:00 EDITOR, Stop date: 08/24/18 14:22:00 EDITOR Inactive 08/24/[address] [facility] Zofran Notes: (Same as: Zofran ) MEDICATION WASTE Product Size: 4 mg Product Wasted: ___ mg Inactive 08/24/[address] [facility] Morphine Notes: (Same as:MORPh ine Sulfate) Inactive 08/24/[address] [facility] Vancomycin 2001 mg: infuse ov er 2.5 hours For adult patients only: Round to nearest 250 mg per Medical Staff approval MEDICATION WASTE Product Size: 1000 mg Product Wasted: ___ mg Inactive 08/24/[address] [facility] doxycycline hyclate 100 MG Oral Tablet 100 mg = 1 tab, PO, Q12H, X 10 day, # 20 tab, 0 Refill(s), Pharmacy: [facility] [id number] No Longer Active 05/22/[address] [facility] Docusate Sodium 100 MG Oral Capsule [Colace] 100 mg = 1 cap, PO, BID, PRN as needed for constipation, # 14 cap, 0 Refill(s), Pharmacy: [facility] [id number] No Longer Active 05/22/[address] [facility] Acetaminophen 300 MG / Codeine Phosphate 30 MG Oral Tablet [Tylenol with Codeine #3] 1 tab, PO, Q6H, PRN Pain Score 6-10, X 5 day, # 20 tab, 0 Refill(s) No Longer Active 05/22/[address] [facility] Docusate Sodium 100 MG Oral Capsule [Colace] Notes: (Same as: Colace) (Do Not Crush) Inactive 05/22/[address] [facility] Acetaminophen 325 MG / Hydrocodone Nereyda trate 5 MG Oral Tablet [Cerulean 5/325] Notes: (Same as: Cerulean 325/5) Do not ex ceed 4gm/day of acetaminophen. No Longer Activ e 05/21/[address] [facility] vancomycin + Sodium Chloride 0.9% IV 250 mL 2001 mg: infuse over 2.5 hours For adult patients only: Round to nearest 250 mg per Medical Staff approval MEDICATION WASTE Product Size: 1000 mg Product Wasted: ___ mg No Longer Active 05/20/[address] [facility] vancomycin 2001 mg: infuse ov er 2.5 hours For adult patients only: Round to nearest 250 mg per Medical Staff approval MEDICATION WASTE Product Size: 1000 mg Product Wasted: ___ mg No Longer Active 05/19/2018 [facility] vancomycin + Sodium Chloride 0.9% IV 100 mL Notes: TIME CRITICAL MEDICATION (Same As: Vancocin) For adult patients only: Round to nearest 250 mg per Medical Staff approval Inactive 05/19/[address] [facility] Ceftriaxone Notes: (Same As: Nikko hopper). MEDICATION WASTE Product Size: 2000 mg Product Wasted: ___ mg No Longer Active 05/19/2018 [facility] Phenergan Notes: (Same as: Phe nergan) Inactive 05/19/[address] [facility] Morphine 2 mg, 1 mL, Route: IV P, Drug form: SOLN, ONCE, Dosing Weight 120.909, kg, Start date: 05/18/18 23:11:00 CDT, Stop date: 05/18/18 23:11:00 CDT Inactive 05/19/2018 [facility] morphine Sulfate Notes: (Same as:MORPhine Sulfate) Inactive 05/19/2018 [facility] Acetaminophen 300 MG / Codeine Phosphate 30 MG Oral Tablet [Tylenol with Codeine #3] Notes: Do not exceed 4gm/day of acetamin ophen. (Same as: Tylenol with Codeine # 3) No Longer Active 05/18/2018 [facility] Meperidine Notes: (Same As: De merol) Inactive 05/18/2018 [facility] Diphenhydramine Notes: (Same a s: Benadryl) Inactive 05/18/2018 [facility] Ondansetron Notes: (Same as: Kathy diaz) MEDICATION WASTE Product Size: 4 mg Product Wasted: ___ mg Inactive 05/18/[address] [facility] Promethazine 6.25 mg, Route: I VPB, ONCE, Dosing Weight 120.909, kg, PRN Nausea & Vomiting, Start date: 05/18/18 13:51:00 CDT Inactive 05/18/2018 [facility] Naloxone Notes: Same as Narcan Inactive 05/18/2018 [facility] Hydromorphone Notes: Same as: Dilaudid Inactive 05/18/2018 [facility] Fentanyl 50 microgram, Route: IVP, Q5Min, Dosing Weight 120.909, kg, PRN Pain Score 7-10, Priority: Routine, Start date: 05/18/18 13:51:00 CDT, Duration: 2 doses or times, Stop date: Limited # of times Inactive 05/18/2018 [facility] Flumazenil Notes: (Same as: Ro mazicon) Inactive 05/18/2018 [facility] Albuterol 0.83 MG/ML Inhalant Solution Notes: SEE RT DOCUMENTATION (Same as: Proventil) Inactive 05/18/[address] [facility] Ketorolac 4 days MEDICA TION WASTE Product Size: 30 mg Product Wasted: ___ mg Inactive 05/18/2018 [facility] Labetalol Notes: (Same as: Nor modyne, Trandate) Push over 2 minutes Give bolus over 2-3 minutes. Inactive 05/18/[address] [facility] Hydralazine Notes: (Same as: A presoline) Push over 5 minutes Inactive 05/18/[address] [facility] Acetaminophen Notes: Max aceta minophen 4000 mg/day (4 gm/day). (Same as: Tylenol Extra Strength) Inactive 05/18/2018 [facility] Oxycodone Notes: (Same as: Jessy icodone) Inactive 05/18/2018 [facility] lidocaine (ANES) Route: IV, Dr ug form: INJ, ONCE, Stop date: 05/18/18 13:43:00 CDT Inactive 05/18/2018 [facility] ondansetron (ANES) Route: IV, Drug form: INJ, ONCE, Stop date: 05/18/18 13:43:00 CDT Inactive 05/18/2018 [facility] propofol (ANES) Route: IV, Juan g form: INJ, ONCE, Stop date: 05/18/18 13:43:00 CDT Inactive 05/18/2018 [facility] dexamethasone (ANES) Route: IV , Drug form: INJ, ONCE, Stop date: 05/18/18 13:43:00 CDT Inactive 05/18/2018 [facility] ketOROLAC (ANES) IV, ONCE Inactive 05/18/2018 [facility] fentaNYL (ANES) Route: IV, Juan g form: INJ, ONCE, Stop date: 05/18/18 13:43:00 CDT Inactive 05/18/2018 [facility] midazolam (ANES) Route: IV, Dr ug form: SOLN, ONCE, Stop date: 05/18/18 13:43:00 CDT Inactive 05/18/[address] [facility] vancomycin (ANES) 1000 mg Rout e: IV, Drug form: INJ, Start date: 05/18/18 13:16:00 CDT, Stop date: 05/18/18 14:16:00 CDT Inactive 05/18/[address] [facility] Lactated Ringers Injection IV (ANES) 1000 mL Route: IV, Total Volume: 1,000, Start date: 05/18/18 13:16:00 CDT, Stop date: 05/18/18 14:16:00 CDT Inactive 05/18/[address] [facility] Sodium Chloride 0.9% IV 1,000 mL 1,000 mL, Rate: 25 ml/hr, Infuse over: 40 hr, Route: IV, Dosing Weight 120.909 kg, Total Volume: 1,000, Start date: 05/18/18 13:01:00 CDT, Duration: 30 day, Stop date: 06/17/18 13:00:00 CDT, 2.41, m2 Inactiv e 05/18/[address] [facility] Calcium Chloride 0.0014 MEQ/ML / Potassi um Chloride 0.004 MEQ/ML / Sodium Chloride 0.103 MEQ/ML / Sodium Lactate 0.028 MEQ/ML Injectable Solution 1,000 mL, Rate: 25 ml/hr, Infuse over: 4 0 hr, Route: IV, Dosing Weight 120.909 kg, Total Volume: 1,000, Start date: 05/18/18 13:01:00 CDT, Duration: 30 day, Stop date: 06/17/18 13:00:00 CDT, 2.41, m2 Inactive 05/18/[address] [facility] vancomycin + Sodium Chloride 0.9% IV 250 mL 1,000 mg, Route: IVPB, [id number], Dosing Weight 119.091, kg, Start date: 05/17/18 14:00:00 CDT, Duration: 7 day, Stop date: 05/24/18 2:00:00 CDT, ABX Indication: Skin/Soft Tissue Infection No Longer Active 05/17/2018 [facility] influenza virus vaccine, inactivated Notes: (Same as: Fluzone Quadrivalent, Fluarix Quadrivalent) For 3 years of age and older (0.5 mL IM) Shake well before use N o Longer Active 05/17/2018 [facility] Vancomycin 1,000 mg, Route: IV PB, Drug form: INJ, [id number], Dosing Weight 119.091, kg, Start date: 05/17/18 3:00:00 CDT, Duration: 7 day, Stop date: 05/23/18 15:00:00 CDT, ABX Indication: Pneumonia Inactive 05/17/2018 [facility] Enoxaparin Notes: (Same as: Lo venox) No Longer Active 05/17/2018 [facility] Saline Flush 0.9% Notes: (Same as: BD Posiflush) No Longer Active 05/17/[address] [facility] Lactated Ringers IV 1,000 mL 1 ,000 mL, Rate: 75 ml/hr, Infuse over: 13.3 hr, Route: IV, Dosing Weight 119.091 kg, Total Volume: 1,000, Start date: 05/17/18 2:46:00 CDT, Duration: 30 day, Stop date: 06/16/18 2:45:00 CDT, 2.39, m2 No Longer Active 05/17/2018 [facility] Ondansetron Notes: (Same as: Kathy diaz) MEDICATION WASTE Product Size: 4 mg Product Wasted: ___ mg No Longer Active 05/17/2018 [facility] Acetaminophen Notes: Do not ex ceed 4 gm/day. (Same as: Tylenol) No Longer Active 05/17/[address] [facility] Morphine 2 mg, 1 mL, Route: IV P, Drug form: SOLN, Q4H, Dosing Weight 119.091, kg, PRN Pain Score 7-10, Start date: 05/17/18 2:46:00 CDT, Duration: 30 day, Stop date: 06/16/18 2:45:00 CDT No Longer Active 05/17/[address] [facility] Ondansetron Notes: (Same as: Kathy diaz) MEDICATION WASTE Product Size: 4 mg Product Wasted: ___ mg Inactive 05/17/[address] [facility] Morphine Notes: (Same as:MORPh ine Sulfate) Inactive 05/17/[address] [facility] Vancomycin 2001 mg: infuse ov er 2.5 hours For adult patients only: Round to nearest 250 mg per Medical Staff approval MEDICATION WASTE Product Size: 1000 mg Product Wasted: ___ mg Inactive 05/17/[address] [facility] Methocarbamol 750 MG Oral Tablet [Robaxin] 750 mg = 1 tab, PO, TID, PRN as needed for pain, X 7 day, # 30 tab, 0 Refill(s) Active 01/13/2018 [facility] tramadol hydrochloride 50 MG Oral Tablet 50 mg = 1 tab, PO, Q6H, PRN Pain, not to exceed 400 mg/day, X 5 day, # 24 tab, 0 Refill(s) Active 01/13/2018 [facility] ibuprofen 800 mg oral tablet 8 00 mg = 1 tab, PO, Q8H, PRN Fever or Pain, Take with food, X 10 day, # 30 tab, 0 Refill(s) Active 01/13/2018 [facility] Acetaminophen 325 MG / Hydrocodone Nereyda trate 7.5 MG Oral Tablet [Cerulean 7.5/325] Notes: Same as Cerulean 325-7.5mg Do not exceed 4gm/day of acetaminophen. Inactive 01/13/2018 [facility] Valium Notes: (Same as: Valium) Inactive 01/13/2018 [facility] Ketorolac 4 days MEDICA TION WASTE Product Size: 30 mg Product Wasted: ___ mg Inactive 01/13/2018 [facility] Tylenol Notes: Do not exceed 4 gm/day. (Same as: Tylenol) Inactive 01/12/2018 [facility] Buspirone Notes: (Same As: BuS par) Inactive 12/31/2016 [facility] Phenergan Notes: (Same as: Phe nergan) Inactive 12/31/2016 [facility] Phenergan 25 mg oral tablet 25 mg, PO, Q6H, PRN Nausea & Vomiting, X 5 day, # 20 tab, 0 Refill(s), Pharmacy: [facility] [id number] Active 12/31/2016 [facility] Sodium Chloride 0.154 MEQ/ML Injectable Solution 1,000 mL, Rate: 150 ml/hr, Infuse over: 6.7 hr, Route: IV, Dosing Weight 109 kg, Total Volume: 1,000, Start date: 12/31/16 9:30:00 CDT, Duration: 30 day, Stop date: 01/30/17 9:29:00 CDT Inactive 12/31/2016 [facility] Trazodone Notes: (Same As: Hawk yrel) Inactive 12/31/2016 [facility] Cipro Notes: May interfere w/e nteral feedings - Take 1 hr before or 2 hrs after antacids, dairy pdt & minerals. On empty stomach. Inactive 12/31/2016 [facility] Flagyl Notes: (Same as: Flagyl ) Take with food/ avoid alcohol Inactive 12/31/2016 [facility] Fluoxetine Notes: (Same as: Pr ozac) Inactive 12/31/2016 [facility] Levsin SL Notes: (Same as: Lev sin) Take 30 min before meal Inactive 12/31/2016 [facility] Promethazine Notes: Do not giv e IV push. (Same as: Phenergan) Inactive 12/31/2016 [facility] Zofran 4 mg, Route: IVP, Drug form: INJ, ONCE, Dosing Weight 109.091, kg, Priority: STAT, Start date: 12/31/16 4:33:00 CDT, Stop date: 12/31/16 4:33:00 CDT Inactive 12/31/2016 [facility] Morphine 4 mg, Route: IVP, ONC E, Dosing Weight 109.091, kg, Priority: STAT, Start date: 12/31/16 4:30:00 CDT, Stop date: 12/31/16 4:30:00 CDT Inactive 12/31/2016 [facility] Rocephin Notes: (Same As: Roctimo phin). Use with 100 mL NS and infuse over 30 min MEDICATION WASTE Product Size: 1000 mg Product Wasted: ___ mg Inactive 12/31/2016 [facility] Ondansetron Notes: (Same as: Kathy diaz) MEDICATION WASTE Product Size: 4 mg Product Wasted: ___ mg No Longer Active 12/31/2016 [facility] Morphine Notes: (Same as:MORPh ine Sulfate) No Longer Active 12/31/2016 [facility] Saline Flush 0.9% Notes: (Same as: BD Posiflush) No Longer Active 12/31/2016 [facility] Sodium Chloride 0.154 MEQ/ML Injectable Solution 1,000 mL, 2,000 ml/hr, Infuse Over: 30 minutes, Route: IV, 1,000, Drug form: INJ, ONCE, Priority: STAT, Dosing Weight 109.091 kg, Start date: 12/30/16 23:55:00 CDT, Duration: 1 doses or times, Stop date: 12/30/16 23:55:00 CDT No Longer Active 12/31/2016 [facility] Ciprofloxacin 500 MG Oral Tablet [Cipro] 500 mg = 1 tab, PO, Q12H, X 7 day, # 14 tab, 0 Refill(s), Pharmacy: [facility] [id number] Active 12/25/2016 [facility] Acetaminophen 300 MG / Codeine Phosphate 30 MG Oral Tablet [Tylenol with Codeine #3] 1 - 2 tab, PO, Q4H, PRN Pain, X 2 day, # 10 tab, 0 Refill(s) No Longer Active 12/25/2016 [facility] Metronidazole 500 MG Oral Tablet [Flagyl] 500 mg = 1 tab, PO, BID, X 7 day, # 14 tab, 0 Refill(s), Pharmacy: [facility] [id number] Active 12/25/2016 [facility] Sodium Chloride 0.154 MEQ/ML Injectable Solution 500 mL, 500 ml/hr, Infuse Over: 1 hr, Route: IV, 500, Drug form: INJ, ONCE, Priority: STAT, Dosing Weight 109.091 kg, Start date: 12/25/16 17:53:00 CDT, Duration: 1 doses or times, Stop date: 12/25/16 17:53:00 CDT Inactive 12/25/2016 [facility] Acetaminophen 300 MG / Codeine Phosphate 30 MG Oral Tablet [Tylenol with Codeine #3] Notes: Do not exceed 4gm/day of acetamin ophen. (Same as: Tylenol with Codeine # 3) Inactive 12/25/2016 [facility] Flagyl Notes: (Same as: Flagyl ) Avoid alcohol. Inactive 12/25/2016 [facility] Cipro Notes: Do not refrigerate Inactive 12/25/2016 [facility] Saline Flush 0.9% Notes: (Same as: BD Posiflush) Inactive 12/25/2016 [facility] Famotidine 40 MG Oral Tablet [Pepcid] 40 mg = 1 tab, PO, Daily, # 30 tab, 0 Refill(s) Active 07/20/2016 [facility] Sucralfate 1000 MG Oral Tablet [Carafate] 1 gm = 1 tab, PO, TID, # 90 tab, 0 Refill(s) Active 07/20/2016 [facility] Phenergan 25 mg oral tablet 25 mg = 1 tab, PO, Q4H, PRN Nausea, X 5 day, # 30 tab, 0 Refill(s) Active 07/20/2016 [facility] Diflunisal 500 MG Oral Tablet [Dolobid] 500 mg = 1 tab, PO, Q8H, # 90 tab, 0 Refill(s) Active 07/20/2016 [facility] Zofran 4 mg, Route: IVP, Drug form: INJ, ONCE, Dosing Weight 104.545, kg, Priority: STAT, Start date: 07/19/16 21:44:00 EDITOR, Stop date: 07/19/16 21:44:00 EDITOR Inactive 07/20/2016 [facility] Ketorolac 30 mg, Route: IVP, D rug form: INJ, ONCE, Dosing Weight 104.545, kg, Priority: STAT, Start date: 07/19/16 21:28:00 EDITOR, Stop date: 07/19/16 21:28:00 EDITOR Inactive 07/20/2016 [facility] Zofran Notes: (Same as: Zoan ) MEDICATION WASTE Product Size: 4 mg Product Wasted: ___ mg Inactive 07/20/2016 [facility] Famotidine 20 MG Oral Tablet [Pepcid] 20 mg, 1 tab, Route: PO, ONCE, Dosing Weight 104.545, kg, Start date: 07/19/16 19:40:00 EDITOR, Stop date: 07/19/16 19:40:00 EDITOR Inactive 07/20/2016 [facility] Sodium Chloride 0.154 MEQ/ML Injectable Solution 1,000 mL, 1,000 ml/hr, Infuse Over: 1 hr, Route: IV, 1,000, Drug form: INJ, ONCE, Priority: STAT, Dosing Weight 104.545 kg, Start date: 07/19/16 19:40:00 EDITOR, Duration: 1 doses or times, Stop date: 07/19/16 19:40:00 EDITOR Inactive 07/20/2016 [facility] GI cocktail 30 mL, Route: PO, Dosing Weight 104.545, kg, ONCE, STAT, Start date: 07/19/16 19:39:00 EDITOR, Stop date: 07/19/16 19:39:00 EDITOR Inactive 07/20/2016 [facility] Carafate Notes: May interfere w/enteral feeds - Take 1 hr before or 2 hr after antacids, dairy pdt, meals & minerals - On empty stomach. (Same As: Carafate) Inactive 07/20/2016 [facility] Cyclobenzaprine hydrochloride 10 MG Oral Tablet [Flexeril] 10 mg, PO, TID, PRN Muscle Spasm, X 10 d ay, # 30 tab, 0 Refill(s) Active 04/23/2016 [facility] tramadol hydrochloride 50 MG Oral Tablet 50 mg, Route: PO, Drug form: TAB, ONCE, Dosing Weight 94.091, kg, Priority: STAT, Start date: 04/23/16 1:34:00 CDT, Stop date: 04/23/16 1:34:00 CDT Inactive 04/23/2016 [facility] Valium 10 mg, Route: PO, ONCE, Dosing Weight 94.091, kg, Start date: 04/23/16 1:33:00 CDT, Stop date: 04/23/16 1:33:00 CDT Inactive 04/23/2016 [facility] Ketorolac 60 mg, Route: IM, Dr del [place] form: INJ, ONCE, Dosing Weight 94.091, kg, Priority: STAT, Start date: 04/23/16 1:33:00 CDT, Stop date: 04/23/16 1:33:00 CDT Inactive 04/23/2016 [facility] Methocarbamol 750 MG Oral Tablet [Robaxin] 750 mg = 1 tab, PO, TID, PRN as needed for pain, X 10 day, # 30 tab, 0 Refill(s) Active 04/16/2016 [facility] Acetaminophen 300 MG / Codeine Phosphate 30 MG Oral Tablet [Tylenol with Codeine #3] 1 - 2 tab, PO, Q4H, PRN Pain, X 2 day, # 24 tab, 0 Refill(s) No Longer Active 04/16/2016 [facility] Flexeril 10 mg, Route: PO, ONC E, Dosing Weight 103.182, kg, Priority: STAT, Start date: 04/16/16 3:20:00 CDT, Stop date: 04/16/16 3:20:00 CDT Inactive 04/16/2016 [facility] Zofran ODT 4 mg, Route: PO, Dr del toro form: TABDIS, ONCE, Dosing Weight 103.182, kg, Priority: STAT, Start date: 04/16/16 2:09:00 CDT, Stop date: 04/16/16 2:09:00 CDT Inactive 04/16/2016 [facility] Dilaudid 1 mg, Route: IM, ONCE , Dosing Weight 103.182, kg, Priority: STAT, Start date: 04/16/16 2:09:00 CDT, Stop date: 04/16/16 2:09:00 CDT Inactive 04/16/2016 [facility] promethazine 12.5 mg oral tablet 12.5 mg = 1 tab, PO, Q6H, PRN Nausea & Vomiting, X 5 day, # 20 tab, 0 Refill(s) Active 04/14/2016 [facility] Hyoscyamine Sulfate 0.125 MG Sublingual Tablet [Levsin ] 0.125 mg = 1 tab, SL, Q6H, PRN abdominal spasm, # 28 tab, 0 Refill(s) Active 04/14/2016 [facility] omeprazole 40 mg oral delayed release capsule 40 mg = 1 cap, PO, Daily, # 30 cap, 0 Refill(s) Active 04/14/2016 [facility] Promethazine Notes: Do not giv e IV push. (Same as: Phenergan) Inactive 04/14/2016 [facility] GI cocktail 30 mL, Route: PO, Dosing Weight 103.182, kg, ONCE, STAT, Start date: 04/14/16 2:12:00 CDT, Stop date: 04/14/16 2:12:00 CDT Inactive 04/14/2016 [facility] pantoprazole 40 mg, Route: IVP , ONCE, Dosing Weight 103.182, kg, Priority: STAT, Start date: 04/14/16 2:12:00 CDT, Stop date: 04/14/16 2:12:00 CDT Inactive 04/14/2016 [facility] Morphine 4 mg, Route: IVP, Juan g form: INJ, ONCE, Dosing Weight 103.182, kg, Priority: STAT, Start date: 04/14/16 0:57:00 CDT, Stop date: 04/14/16 0:57:00 CDT Inactive 04/14/2016 [facility] pantoprazole 40 mg, Route: IVP , ONCE, Dosing Weight 103.182, kg, For IV push reconstitute with 10 ml 0.9% sodium chloride and push over at least 3 minutes, Priority: STAT, Start date: 04/14/16 0:57:00 CDT, Stop date: 04/14/16 0:57:00 CDT Inactive 04/14/2016 [facility] Ondansetron 4 mg, Route: IVP, ONCE, Dosing Weight 103.182, kg, Priority: STAT, Start date: 04/14/16 0:57:00 CDT, Stop date: 04/14/16 0:57:00 CDT Inactive 04/14/2016 [facility] Sodium Chloride 0.154 MEQ/ML Injectable Solution 1,000 mL, 2,000 ml/hr, Infuse Over: 30 minutes, Route: IV, ONCE, Priority: STAT, Dosing Weight 103.182 kg, Start date: 04/14/16 0:57:00 CDT, Duration: 1 doses or times, Stop date: 04/14/16 0:57:00 CDT Inactive 04/14/2016 [facility] Saline Flush 0.9% Notes: (Same as: BD Posiflush) Inactive 04/14/2016 [facility] Reglan 10 mg, Route: IVP, Drug form: INJ, ONCE, Dosing Weight 100.455, kg, Priority: STAT, Start date: 02/24/16 1:09:00 CDT, Stop date: 02/24/16 1:09:00 CDT Inactive 02/24/2016 [facility] Levsin Notes: (Same as: Dixie ) MEDICATION WASTE Product Size: 0.5 mg Product Wasted: ___ mg Inactive 02/24/2016 [facility] Dicyclomine Hydrochloride 20 MG Oral Tablet [Bentyl] 20 mg = 1 tab, PO, QID, # 28 tab, 0 Refill(s) Active 02/24/2016 [facility] Metoclopramide 10 MG Oral Tablet [Reglan] 10 mg = 1 tab, PO, QID-Before Meals, X 10 day, # 40 tab, 0 Refill(s) Active 02/24/2016 [facility] Morphine 4 mg, Route: IVP, Juan g form: INJ, ONCE, Dosing Weight 100.455, kg, Priority: STAT, Start date: 02/24/16 0:09:00 CDT, Stop date: 02/24/16 0:09:00 CDT Inactive 02/24/2016 [facility] Magnesium Sulfate 1 gm, Route: IV, ONCE, Dosing Weight 100.455, kg, Start date: 02/23/16 23:50:00 CDT, Stop date: 02/23/16 23:50:00 CDT No Longer Active 02/24/2016 [facility] Zofran 4 mg, Route: IVP, Drug form: INJ, ONCE, Dosing Weight 100.455, kg, Priority: STAT, Start date: 02/23/16 23:34:00 CDT, Stop date: 02/23/16 23:34:00 CDT Inactive 02/24/2016 [facility] Sodium Chloride 0.154 MEQ/ML Injectable Solution 1,000 mL, 1,000 ml/hr, Infuse Over: 1 hr, Route: IV, ONCE, Priority: STAT, Dosing Weight 100.455 kg, Start date: 02/23/16 23:34:00 CDT, Duration: 1 doses or times, Stop date: 02/23/16 23:34:00 CDT Inactive 02/24/2016 [facility] Saline Flush 0.9% Notes: (Same as: BD Posiflush) No Longer Active 02/24/2016 [facility] Morphine Notes: (Same as:MORPh ine Sulfate) Inactive 01/17/[address] [facility] Hyoscyamine Sulfate 0.125 MG Oral Tablet [Levsin] 0.125 mg = 1 tab, PO, QID, PRN Spasm, # 40 tab, 0 Refill(s) Active 01/17/[address] [facility] Ondansetron 4 MG Disintegrating Tablet [Zofran] 4 mg = 1 tab, PO, BID, PRN Nausea and Vomiting, Dissolve tab under tongue, X 5 day, # 10 tab, 0 Refill(s) Active 01/17/[address] [facility] Bentyl 20 mg, Route: IM, ONCE, Dosing Weight 100.455, kg, Start date: 01/16/16 23:00:00 CDT, Stop date: 01/16/16 23:00:00 CDT Inactive 01/17/[address] [facility] Zofran 4 mg, Route: IVP, Drug form: INJ, ONCE, Dosing Weight 100.455, kg, Priority: STAT, Start date: 01/16/16 22:59:00 CDT, Stop date: 01/16/16 22:59:00 CDT Inactive 01/17/[address] [facility] Morphine Notes: (Same as:MORPh ine Sulfate) Inactive 01/17/[address] [facility] Ondansetron Notes: (Same as: Kathy diaz) MEDICATION WASTE Product Size: 4 mg Product Wasted: ___ mg Inactive 01/17/[address] [facility] Famotidine Notes: (Same as: Pe pcid) Can be dilute in 5- 10cc NS IVP: Slow IV push over at least 2 minutes. Inactive 01/17/[address] [facility] Sodium Chloride 0.154 MEQ/ML Injectable Solution 1,000 mL, 1,000 ml/hr, Infuse Over: 1 hr, Route: IV, 1,000, Drug form: INJ, ONCE, Priority: STAT, Dosing Weight 100.455 kg, Start date: 01/16/16 21:40:00 CDT, Duration: 1 doses or times, Stop date: 01/16/16 21:40:00 CDT Inactive 01/17/[address] [facility] Promethazine Hydrochloride 25 MG Oral Ta blet [Phenergan] 25 mg = 1 tab, PO, Q6H, PRN Nausea, X 4 day, # 15 tab, 0 Refill(s) Active 10/13/2015 [facility] Ranitidine 150 MG Oral Tablet [Zantac] 150 mg = 1 tab, PO, BID, # 60 tab, 0 Refill(s) Active 10/13/2015 [facility] Dicyclomine Hydrochloride 20 MG Oral Tablet [Bentyl] 20 mg = 1 tab, PO, QID-Before Meals, # 40 tab, 0 Refill(s) Active 10/13/2015 [facility] Promethazine Notes: Do not giv e IV push. (Same as: Phenergan) Inactive 10/13/2015 [facility] Sodium Chloride 0.154 MEQ/ML Injectable Solution 1,000 mL, 1000 ml/hr, Infuse Over: 1 hr, Route: IV, 1,000, Drug form: INJ, ONCE, Priority: STAT, Dosing Weight 101.818 kg, Start date: 10/13/15 3:32:00, Duration: 1 doses or times, Stop date: 10/13/15 3:32:00 Inactive 10/13/2015 [facility] Morphine Notes: (Same as:MORPh ine Sulfate) Inactive 10/13/2015 [facility] Ondansetron Notes: (Same as: Kathy diaz) MEDICATION WASTE Product Size: 4 mg Product Wasted: ___ mg Inactive 10/13/2015 [facility] Famotidine Notes: (Same as: Pe pcid) Can be dilute in 5- 10cc NS IVP: Slow IV push over at least 2 minutes. Inactive 10/13/2015 [facility] GI cocktail Notes: [place] = antacid with simethicone 22.5 mL - lidocaine viscous 7.5 mL Inactive 10/13/2015 [facility] Saline Flush 0.9% Notes: (Same as: BD Posiflush) Inactive 10/13/2015 [facility] Sodium Chloride 0.154 MEQ/ML Injectable Solution 1,000 mL, 1000 ml/hr, Infuse Over: 1 hr, Route: IV, 1,000, Drug form: INJ, ONCE, Priority: STAT, Dosing Weight 101.818 kg, Start date: 10/13/15 2:13:00, Duration: 1 doses or times, Stop date: 10/13/15 2:13:00 Inactive 10/13/2015 [facility] Diphenhydramine 25 mg, Route: IVP, ONCE, Dosing Weight 107.273, kg, Priority: STAT, Start date: 07/04/15 0:52:00, Stop date: 07/04/15 0:52:00 Inactive 07/04/2015 [facility] Famotidine 20 mg, Route: IVP, ONCE, Dosing Weight 107.273, kg, Priority: STAT, Start date: 07/04/15 0:52:00, Stop date: 07/04/15 0:52:00 Inactive 07/04/2015 [facility] Morphine 4 mg, Route: IVP, ONC E, Dosing Weight 107.273, kg, Priority: STAT, Start date: 07/04/15 0:52:00, Stop date: 07/04/15 0:52:00 Inactive 07/04/2015 [facility] Sodium Chloride 0.154 MEQ/ML Injectable Solution 1,000 mL, 1,000 ml/hr, Infuse Over: 1 hr, Route: IV, ONCE, Priority: STAT, Dosing Weight 107.273 kg, Start date: 07/04/15 0:52:00, Duration: 1 doses or times, Stop date: 07/04/15 0:52:00 Inactive 07/04/2015 [facility] GI cocktail 30 mL, Route: PO, Dosing Weight 107.273, kg, ONCE, STAT, Start date: 07/04/15 0:52:00, Stop date: 07/04/15 0:52:00 Inactive 07/04/2015 [facility] Acetaminophen 325 MG / Hydrocodone Nereyda trate 5 MG Oral Tablet Notes: (Same as: Cerulean 325/5) Do not ex ceed 4gm/day of acetaminophen. Inactive 05/17/2015 [facility] Ibuprofen 600 mg, Route: PO, O NCE, Dosing Weight 112.273, kg, Priority: STAT, Start date: 05/17/15 2:14:00, Stop date: 05/17/15 2:14:00 Inactive 05/17/2015 [facility] omeprazole 40 mg oral delayed release capsule 40 mg = 1 cap, PO, Daily, # 30 cap, 0 Refill(s) Active 05/15/2015 [facility] Dicyclomine Hydrochloride 20 MG Oral Tablet [Bentyl] 20 mg = 1 tab, PO, QID-Before Meals, # 28 tab, 0 Refill(s) Active 05/15/2015 [facility] Ondansetron 4 MG Oral Tablet [Zofran] 4 mg = 1 tab, PO, TID, X 5 day, # 15 tab, 0 Refill(s) Active 05/15/2015 [facility] Acetaminophen 325 MG / Hydrocodone Nereyda trate 7.5 MG Oral Tablet [Cerulean 7.5/325] 1 tab, Route: PO, Drug Form: TAB, Dosing Weight 122.727, kg, ONCE, STAT, Start date: 05/15/15 7:15:00, Stop date: 05/15/15 7:15:00 Inactive 05/15/2015 [facility] Ketorolac 30 mg, Route: IVP, D rug form: INJ, ONCE, Dosing Weight 122.727, kg, Priority: STAT, Start date: 05/15/15 7:14:00, Stop date: 05/15/15 7:14:00 Inactiv e 05/15/2015 [facility] Zofran 4 mg, Route: IVP, Drug form: INJ, ONCE, Dosing Weight 122.727, kg, Priority: STAT, Start date: 05/15/15 6:28:00, Stop date: 05/15/15 6:28:00 Inactive 05/15/2015 [facility] Morphine 4 mg, Route: IVP, Juan g form: INJ, ONCE, Dosing Weight 122.727, kg, Priority: STAT, Start date: 05/15/15 4:19:00, Stop date: 05/15/15 4:19:00 Inactive 05/15/2015 [facility] Zofran 4 mg, Route: IVP, Drug form: INJ, ONCE, Dosing Weight 122.727, kg, Priority: STAT, Start date: 05/15/15 4:19:00, Stop date: 05/15/15 4:19:00 Inactive 05/15/2015 [facility] Sodium Chloride 0.154 MEQ/ML Injectable Solution 1,000 mL, 1,000 ml/hr, Infuse Over: 1 Hour, Route: IV, ONCE, Priority: STAT, Dosing Weight 122.727 kg, Start date: 05/15/15 4:19:00, Duration: 1 doses or times, Stop date: 05/15/15 4:19:00 Inactive 05/15/2015 [facility] Metoclopramide 10 MG Oral Tablet [Reglan] 10 mg = 1 tab, PO, QID, PRN Other -See Comment, X 7 day, # 28 tab, 0 Refill(s) Active 02/14/2015 [facility] PlasmaLyte A PH-7.4 1,000 mL 1 ,000 mL, Rate: 2,000 ml/hr, Infuse over: 0.5 hr, Route: IV, Dosing Weight 112.727 kg, Total Volume: 1,000, Start date: 02/14/15 1:11:00, Duration: 1 doses or times, Stop date: 02/14/15 1:40:00 Inactive 02/14/2015 [facility] Benadryl Notes: (Same as: Vikki dryl) Inactive 02/14/2015 [facility] Reglan Notes: (Same as: Reglan) Inactive 02/14/2015 [facility] Ondansetron 4 MG Oral Tablet [Zofran] 4 mg = 1 tab, PO, BID, # 10 tab, 0 Refill(s) Active 09/30/2014 [facility] Morphine 4 mg, Route: IV, Drug form: INJ, ONCE, Dosing Weight 118.182, kg, Start date: 09/30/14 0:32:00, Stop date: 09/30/14 0:32:00 Inactive 09/30/2014 [facility] Morphine 4 mg, Route: IM, Drug form: INJ, ONCE, Dosing Weight 118.182, kg, Priority: STAT, Start date: 09/30/14 0:31:00, Stop date: 09/30/14 0:31:00 Inactive 09/30/2014 [facility] Saline Flush 0.9% Notes: Same as: BD Posiflush Sterile No Longer Active 09/30/2014 [facility] Sodium Chloride 0.154 MEQ/ML Injectable Solution 1,000 mL, Infuse Over: 1 hr, Route: IV, ONCE, Priority: STAT, Dosing Weight 118.182 kg, Start date: 09/29/14 23:25:00, Duration: 1 doses or times, Stop date: 09/29/14 23:25:00 Inactive 09/30/2014 [facility] Allergies, Adverse Reactions, Alerts Substance Category Reaction Severity Reaction type Status Date Reported Comments Source Bactrim Assertion Drug allergy Active [facility] ciprofloxacin Assertion Drug allergy Active [facility] penicillin Assertion Drug allergy Active [facility] clindamycin Assertion Drug allergy Active [facility] Keflex<sup>1, 2</sup> Assertion Drug allergy Active [facility] ceftriaxone in May 2018 hospitalization Rash to Keflex 2013; tolerated ceftriaxone in [address] [facility] Immunizations Immunization Date Given Site Status Last Updated Comments Source influenza virus vaccine, inactivated 08/25/2018 Right deltoid completed Blake [facility], [place] [place] Results Order Name Results Value Reference Range Date Interpretation Comments Source TOXICOLOGY Vanco Tr 11.7 03/26/2020 [facility] TOXICOLOGY Vanco Tr TND 2200 03/26/2020 [facility] CHEM PANEL Glucose Lvl 101 70 - 99 03/25/[address] [facility] CHEM PANEL BUN 10 7 - 22 03/25/2020 [facility] CHEM PANEL Creatinine Lvl 0.64 0.50 - 1.40 03/25/[address] [facility] CHEM PANEL Sodium Lvl 137 135 - 145 03/25/[address] [facility] CHEM PANEL Potassium Lvl 4.1 3.5 - 5.1 03/25/[address] [facility] CHEM PANEL Chloride Lvl 104 95 - 109 03/25/[address] [facility] CHEM PANEL CO2 30 24 - 32 03/25/2020 [facility] CHEM PANEL Calcium Lvl 8.4 8.5 - 10.5 03/25/[address] [facility] CHEM PANEL AGAP 7.1 10.0 - 20.0 03/25/2020 [facility] CHEM PANEL eGFR 116 03/25/2020 Result [...] should be multiplied by the estimated BMI. [facility] TOXICOLOGY Vanco Tr 21.4 03/25/2020 [facility] TOXICOLOGY Vanco Tr TND 1000 03/25/2020 [facility] TOXICOLOGY Vanco Tr 13.7 03/24/2020 [facility] TOXICOLOGY Vanco Tr TND 1100 03/24/2020 [facility] TRIMETHOPRIM+SULFAMETHOXAZOLE:SUSC:PT:ISOLATE:ORDQN:[place] Gram Stain Report No Wbc'S Or Organisms Seen 03/23/[address] [facility] TRIMETHOPRIM+SULFAMETHOXAZOLE:SUSC:PT:ISOLATE:ORDQN:[place] Culture: Aspirate/Body Fluid/Tissue Many Staphylococcus aureus 03/23/[address] [facility] TRIMETHOPRIM+SULFAMETHOXAZOLE:SUSC:PT:ISOLATE:ORDQN:[place] Staphylococcus aureus Staphylococcus aureus 03/23/[address] [facility] CHEM PANEL Glucose Lvl 92 70 - 99 [facility] B[facility] 11 7 - 22 03/23/[address] [facility] CHEM PANEL Creatinine Lvl 0.64 0.50 - 1.40 [facility] Sodium Lvl 139 135 - 145 [facility] Potassium Lvl 3.7 3.5 - 5.1 [facility]/23[facility] Chloride Lvl 107 95 - 109 03/23/2020 [place] CHEM PANEL CO2 28 24 - 32 [facility]/23[facility] Calcium Lvl 8.2 8.5 - 10.5 [facility] Albumin Lvl 2.8 3.5 - 5.0 03/23/2020 [place] CHEM PANEL ALT 16 0 - 65 03/23/2020 [place] CHEM PANEL AST 11 0 - 37 [facility] AGAP 7.7 10.0 - 20.0 03/23/2020 [place] CHEM PANEL B/C Ratio 17 6 - 25 03/23/2020 [place] CHEM PANEL eGFR 117 03/23/2020 Result Comment: [...] should be multiplied by the estimated BMI. [place] CHEM PANEL Total Protein 6.7 6.4 - 8.4 03/23/2020 [facility] Alk Phos 75 39 - 136 03/23/[address] [facility] CHEM PANEL Bili Total 0.5 0.2 - 1.3 03/23/2020 [place] CHEM PANEL Globulin 3.9 2.7 - 4.2 [facility]/23[facility]2020 [facility] A/G Ratio 0.7 0.7 - 1.6 03/23/[address] [facility] HEMATOLOGY WBC 10.2 3.7 - 10.4 03/23/[address] [facility] HEMATOLOGY RBC 4.12 4.20 - 5.40 03/23/[address] [facility] HEMATOLOGY Hgb 12.2 12.0 - 16.0 03/23/[address] [facility] HEMATOLOGY Hct 36.5 36.0 - 48.0 03/23/[address] [facility] HEMATOLOGY MCV 88.6 80.0 - 98.0 03/23/[address] [facility] HEMATOLOGY MCH 29.5 27.0 - 31.0 03/23/[address] [facility] HEMATOLOGY MCHC 33.3 32.0 - 36.0 03/23/[address] [facility] HEMATOLOGY RDW 13.9 11.5 - 14.5 03/23/[address] [facility] HEMATOLOGY Platelet 226 133 - 450 03/23/[address] [facility] HEMATOLOGY MPV 8.3 7.4 - 10.4 03/23/[address] [facility] HEMATOLOGY Segs 63.8 45.0 - 75.0 03/23/[address] [facility] HEMATOLOGY Lymphocytes 21.4 20.0 - 40.0 03/23/[address] [facility] HEMATOLOGY Monocytes 9.2 2.0 - 12.0 03/23/[address] [facility] HEMATOLOGY Eosinophils 4.6 0.0 - 4.0 03/23/[address] [facility] HEMATOLOGY Basophils 1.0 0.0 - 1.0 03/23/[address] [facility] HEMATOLOGY Neutrophils # 6.5 1.5 - 8.1 03/23/[address] [facility] HEMATOLOGY Lymphocytes # 2.2 1.0 - 5.5 03/23/[address] [facility] HEMATOLOGY Monocytes # 0.9 0.0 - 0.8 03/23/[address] [facility] HEMATOLOGY Eosinophils # 0.5 0.0 - 0.5 03/23/[address] [facility] HEMATOLOGY Basophils # 0.1 0.0 - 0.2 03/23/[address] [facility] TOXICOLOGY Vanco Tr 14.1 11/03/2019 [facility] TOXICOLOGY Vanco Tr TND 10:00 11/03/2019 [facility] CHEM PANEL Glucose Lvl 99 70 - 99 11/03/2019 [facility] CHEM PANEL BUN 8 7 - 22 11/03/2019 [facility] CHEM PANEL Creatinine Lvl 0.59 0.50 - 1.40 11/03/2019 [facility] CHEM PANEL Sodium Lvl 137 135 - 145 11/03/2019 [facility] CHEM PANEL Potassium Lvl 4.0 3.5 - [...] PANEL ALT 51 0 - 65 11/03/2019 [facility] CHEM PANEL AST 41 0 - 37 11/03/2019 [facility] CHEM PANEL Alk Phos 84 39 - 136 11/03/2019 [facility] CHEM PANEL Bili Total 0.4 0.2 - 1.3 11/03/2019 [facility] CHEM PANEL AGAP 8.0 10.0 - 20.0 11/03/2019 [facility] CHEM PANEL B/C Ratio 14 6 - 25 11/03/2019 [facility] CHEM PANEL Globulin 3.6 2.7 - 4.2 11/03/2019 [facility] CHEM PANEL A/G Ratio 0.8 0.7 - 1.6 11/03/2019 [facility] CHEM PANEL eGFR 121 11/03/2019 Result Comment: [...] should be multiplied by the estimated BMI. [facility] HEMATOLOGY Segs 65.6 45.0 - 75.0 11/03/2019 [facility] HEMATOLOGY Lymphocytes 20.6 20.0 - 40.0 11/03/2019 [facility] HEMATOLOGY Monocytes 8.8 2.0 - 12.0 11/03/2019 [facility] HEMATOLOGY Eosinophils 4.2 0.0 - 4.0 11/03/2019 [facility] HEMATOLOGY Basophils 0.8 0.0 - 1.0 11/03/2019 [facility] HEMATOLOGY Neutrophils # 6.0 1.5 - 8.1 11/03/2019 [facility] HEMATOLOGY Lymphocytes # 1.9 1.0 - 5.5 11/03/2019 [facility] HEMATOLOGY Monocytes # 0.8 0.0 - 0.8 11/03/2019 [facility] HEMATOLOGY Eosinophils # 0.4 0.0 - 0.5 11/03/2019 [facility] HEMATOLOGY Basophils # 0.1 0.0 - 0.2 11/03/2019 [facility] HEMATOLOGY WBC 9.1 3.7 - 10.4 11/03/[address] [facility] RBC 4.27 4.20 - 5.40 11/03/2019 [facility] HEMATOLOGY Hgb 12.4 12.0 - 16.0 11/03/2019 [facility] HEMATOLOGY Hct 38.1 36.0 - 48.0 11/03/[address] [facility] MCV 89.2 80.0 - 98.0 11/03/[address] [facility] MCH 29.0 27.0 - 31.0 11/03/[address] [facility] MCHC 32.5 32.0 - 36.0 11/03/[address] [facility] RDW 13.1 11.5 - 14.5 11/03/2019 [facility] HEMATOLOGY Platelet 210 133 - 450 11/03/[address] [facility] MPV 8.9 7.4 - 10.4 11/03/2019 [facility] SPECIAL CHEMISTRY Hgb A1C 5.3 <=5.6 % 11/03/2019 [facility] CHEM PANEL Glucose Lvl 96 70 - 99 11/02/2019 [facility] CHEM PANEL BUN 9 7 - 22 11/02/2019 [facility] CHEM PANEL Creatinine Lvl 0.70 0.50 - 1.40 11/02/2019 [facility] CHEM PANEL Sodium Lvl 140 135 - 145 11/02/2019 [facility] CHEM PANEL Potassium Lvl 4.0 3.5 - 5.1 11/02/2019 [facility] CHEM PANEL Chloride Lvl 109 95 - 109 11/02/2019 [facility] CHEM PANEL CO2 26 24 - 32 11/02/2019 [facility] CHEM PANEL Calcium Lvl 8.3 8.5 - 10.5 11/02/2019 [facility] CHEM PANEL AGAP 9.0 10.0 - 20.0 11/02/2019 [facility] CHEM PANEL eGFR 114 11/02/2019 Result Comment: [...] should be multiplied by the estimated BMI. [facility] ELECTROLYTES AGAP 10.1 10.0 - 20.0 05/25/2019 [facility] ELECTROLYTES B/C Ratio 20 6 - 25 05/25/2019 [facility] ELECTROLYTES Globulin 4.3 2.7 - 4.2 05/25/2019 [facility] ELECTROLYTES A/G Ratio 0.9 0.7 - 1.6 05/25/2019 [facility] ELECTROLYTES Glucose Lvl 94 70 - 99 05/25/2019 [facility] ELECTROLYTES BUN 13 7 - 22 05/25/2019 [facility] ELECTROLYTES Creatinine Lvl 0.6 6 0.50 - 1.40 05/25/2019 [facility] ELECTROLYTES Sodium Lvl 137 135 - 145 05/25/2019 [facility] ELECTROLYTES Potassium Lvl 4.1 3.5 - 5.1 05/25/2019 [facility] ELECTROLYTES Chloride Lvl 107 95 - 109 05/25/2019 [facility] ELECTROLYTES CO2 24 24 - 32 05/25/2019 [facility] ELECTROLYTES Calcium Lvl 9.3 8.5 - 10.5 05/25/2019 [facility] ELECTROLYTES Total Protein 8.2 6.4 - 8.4 05/25/2019 [facility] ELECTROLYTES Albumin Lvl 3.9 3.5 - 5.0 05/25/2019 [facility] ELECTROLYTES ALT 25 0 - 65 05/25/2019 [facility] ELECTROLYTES AST 14 0 - 37 05/25/2019 [facility] ELECTROLYTES Alk Phos 98 39 - 136 05/25/2019 [facility] ELECTROLYTES Bili Total 0.4 0.2 - 1.3 05/25/2019 [facility] ELECTROLYTES eGFR 116 05/25/2019 Result Comment: The [...] should be multiplied by the estimated BMI. [facility] ENDOCRINOLOGY S Preg Ne gative *NA* (05/25/19 2:19 AM) Negative 05/25/2019 [facility] HEMATOLOGY WBC 14.7 3.7 - 10.4 05/25/[address] [facility] RBC 4.90 4.20 - 5.40 05/25/[address] [facility] Hgb 14.1 12.0 - 16.0 05/25/[address] [facility] Hct 43.2 36.0 - 48.0 05/25/[address] [facility] MCV 88.2 80.0 - 98.0 05/25/[address] [facility] MCH 28.8 27.0 - 31.0 05/25/[address] [facility] MCHC 32.7 32.0 - 36.0 05/25/[address] [facility] RDW 13.2 11.5 - 14.5 05/25/[address] [facility] Platelet 298 133 - 450 05/25/[address] [facility] MPV 8.5 7.4 - 10.4 05/25/[address] [facility] Segs 66.4 45.0 - 75.0 05/25/[address] [facility] Lymphocytes 21.1 20.0 - 40.0 05/25/[address] [facility] Monocytes 7.4 2.0 - 12.0 05/25/2019 [facility] HEMATOLOGY Eosinophils 4.1 0.0 - 4.0 05/25/2019 [facility] HEMATOLOGY Basophils 1.0 0.0 - 1.0 05/25/[address] [facility] Neutrophils # 9.8 1.5 - 8.1 05/25/[address] [facility] Lymphocytes # 3.1 1.0 - 5.5 05/25/[address] [facility] Monocytes # 1.1 0.0 - 0.8 05/25/2019 [facility] HEMATOLOGY Eosinophils # 0.6 0.0 - 0.5 05/25/2019 [facility] HEMATOLOGY Basophils # 0.1 0.0 - 0.2 05/25/2019 [facility] CHEM PANEL Glucose Lvl 105 70 - 99 04/03/[address] [facility] CHEM PANEL BUN 10 7 - 22 04/03/[address] [facility] CHEM PANEL Creatinine Lvl 0.78 0.50 - 1.40 04/03/[address] [facility] CHEM PANEL Sodium Lvl 141 135 - 145 04/03/[address] [facility] CHEM PANEL Potassium Lvl 3.9 3.5 - 5.1 04/03/[address] [facility] CHEM PANEL Chloride Lvl 109 95 - 109 04/03/[address] [facility] CHEM PANEL CO2 25 24 - 32 04/03/2019 [facility] CHEM PANEL Calcium Lvl 8.8 8.5 - 10.5 04/03/2019 [facility] CHEM PANEL eGFR 100 04/03/2019 Result [...] should be multiplied by the estimated BMI. [facility] CHEM PANEL AGAP 10.9 10.0 - 20.0 04/03/2019 [facility] ENDOCRINOLOGY S Preg Ne gative *NA* (04/03/19 5:11 PM) Negative 04/03/2019 [facility] HEMATOLOGY WBC 11.5 3.7 - 10.4 04/03/2019 [facility] HEMATOLOGY RBC 4.85 4.20 - 5.40 04/03/[address] [facility] HEMATOLOGY Hgb 14.2 12.0 - 16.0 04/03/[address] [facility] HEMATOLOGY Hct 43.0 36.0 - 48.0 04/03/2019 [facility] MCV 88.7 80.0 - 98.0 04/03/2019 [facility] MCH 29.2 27.0 - 31.0 04/03/2019 [facility] MCHC 33.0 32.0 - 36.0 04/03/2019 [facility] RDW 13.3 11.5 - 14.5 04/03/2019 [facility] Platelet 239 133 - 450 04/03/2019 [facility] MPV 8.4 7.4 - 10.4 04/03/2019 [facility] Segs 66.0 45.0 - 75.0 04/03/2019 [facility] Lymphocytes 21.2 20.0 - 40.0 04/03/[address] [facility] HEMATOLOGY Monocytes 8.2 2.0 - 12.0 04/03/[address] [facility] HEMATOLOGY Eosinophils 3.6 0.0 - 4.0 04/03/[address] [facility] HEMATOLOGY Basophils 1.0 0.0 - 1.0 04/03/[address] [facility] HEMATOLOGY Neutrophils # 7.6 1.5 - 8.1 04/03/2019 [facility] Lymphocytes # 2.4 1.0 - 5.5 04/03/2019 [facility] Monocytes # 0.9 0.0 - 0.8 04/03/[address] [facility] HEMATOLOGY Eosinophils # 0.4 0.0 - 0.5 04/03/2019 [facility] Basophils # 0.1 0.0 - 0.2 04/03/[address] [facility] HEMATOLOGY WBC 11.2 3.7 - 10.4 03/24/[address] [facility] HEMATOLOGY Hgb 13.7 12.0 - 16.0 03/24/2019 [facility] MPV 8.9 7.4 - 10.4 03/24/[address] [facility] HEMATOLOGY RBC 4.66 4.20 - 5.40 03/24/[address] [facility] HEMATOLOGY Platelet 252 133 - 450 03/24/2019 [facility] MCH 29.5 27.0 - 31.0 03/24/2019 [facility] MCHC 33.8 32.0 - 36.0 03/24/2019 [facility] RDW 13.7 11.5 - 14.5 03/24/[address] [facility] HEMATOLOGY Hct 40.6 36.0 - 48.0 03/24/[address] [facility] HEMATOLOGY MCV 87.1 80.0 - 98.0 03/24/[address] [facility] HEMATOLOGY Eosinophils 3.3 0.0 - 4.0 03/24/[address] [facility] HEMATOLOGY Monocytes 7.6 2.0 - 12.0 03/24/[address] [facility] HEMATOLOGY Basophils # 0.1 0.0 - 0.2 03/24/[address] [facility] HEMATOLOGY Eosinophils # 0.4 0.0 - 0.5 03/24/[address] [facility] HEMATOLOGY Segs 65.7 45.0 - 75.0 03/24/2019 [facility] Lymphocytes 22.6 20.0 - 40.0 03/24/[address] [facility] HEMATOLOGY Neutrophils # 7.4 1.5 - 8.1 03/24/2019 [facility] Monocytes # 0.8 0.0 - 0.8 03/24/[address] [facility] HEMATOLOGY Basophils 0.8 0.0 - 1.0 03/24/2019 [facility] Lymphocytes # 2.5 1.0 - 5.5 03/24/[address] [facility] CHEM PANEL Procalcitonin Lvl <0.05 0.00 - 0.10 03/24/[address] [facility] CHEM PANEL Lactic Acid Lvl 1.7 0.5 - 2.2 03/23/[address] [facility] CHEM PANEL Lactic Acid Lvl 1.7 0.5 - 2.2 03/23/[address] [facility] ELECTROLYTES AGAP 11.5 10.0 - 20.0 03/23/[address] [facility] ELECTROLYTES eGFR 99 03/23/2019 Result Comment: [...] should be multiplied by the estimated BMI. [facility] ELECTROLYTES Sodium Lvl 142 135 - 145 03/23/[address] [facility] ELECTROLYTES Calcium Lvl 8.8 8.5 - 10.5 03/23/[address] [facility] [facility] CO2 25 24 - 32 03/23/[address] [facility] ELECTROLYTES Chloride Lvl 109 95 - 109 03/23/[address] [facility] ELECTROLYTES Potassium Lvl 3.5 3.5 - 5.1 03/23/[address] [facility] ELECTROLYTES Glucose Lvl 118 70 - 99 03/23/[address] [facility] ELECTROLYTES Creatinine Lvl 0.7 9 0.50 - 1.40 03/23/[address] [facility] ELECTROLYTES BUN 10 7 - 22 03/23/[address] [facility] HEMATOLOGY Monocytes # 0.7 0.0 - 0.8 03/23/[address] [facility] HEMATOLOGY Eosinophils # 0.3 0.0 - 0.5 03/23/[address] [facility] HEMATOLOGY Basophils 1.0 0.0 - 1.0 03/23/[address] [facility] HEMATOLOGY Eosinophils 3.1 0.0 - 4.0 03/23/[address] [facility] HEMATOLOGY Basophils # 0.1 0.0 - 0.2 03/23/[address] [facility] HEMATOLOGY Neutrophils # 8.0 1.5 - 8.1 03/23/2019 [facility] Lymphocytes # 2.1 1.0 - 5.5 03/23/2019 [facility] Lymphocytes 18.5 20.0 - 40.0 03/23/[address] [facility] HEMATOLOGY Monocytes 6.6 2.0 - 12.0 03/23/[address] [facility] HEMATOLOGY Segs 70.8 45.0 - 75.0 03/23/2019 [facility] Platelet 271 133 - 450 03/23/2019 [facility] MPV 8.0 7.4 - 10.4 03/23/[address] [facility] HEMATOLOGY RDW 13.6 11.5 - 14.5 03/23/2019 [facility] MCH 29.3 27.0 - 31.0 03/23/2019 [facility] MCHC 33.3 32.0 - 36.0 03/23/2019 [facility] MCV 88.1 80.0 - 98.0 03/23/2019 [facility] HEMATOLOGY Hgb 14.2 12.0 - 16.0 03/23/[address] [facility] HEMATOLOGY Hct 42.6 36.0 - 48.0 03/23/[address] [facility] HEMATOLOGY RBC 4.84 4.20 - 5.40 03/23/[address] [facility] HEMATOLOGY WBC 11.2 3.7 - 10.4 03/23/[address] [facility] CHEM PANEL Phosphorus 5.1 2.5 - 4.5 03/07/[address] [facility] CHEM PANEL Magnesium Lvl 1.7 1.8 - 2.4 03/07/[address] [facility] ELECTROLYTES AGAP 10.8 10.0 - 20.0 03/07/[address] [facility] ELECTROLYTES eGFR 101 03/07/2019 Result Comment: [...] should be multiplied by the estimated BMI. [facility] ELECTROLYTES Calcium Lvl 8.8 8.5 - 10.5 03/07/[address] [facility] ELECTROLYTES CO2 29 24 - 32 03/07/[address] [facility] ELECTROLYTES Sodium Lvl 141 135 - 145 03/07/[address] [facility] ELECTROLYTES Potassium Lvl 3.8 3.5 - 5.1 03/07/[address] [facility] ELECTROLYTES BUN 11 7 - 22 03/07/[address] [facility] ELECTROLYTES Creatinine Lvl 0.7 8 0.50 - 1.40 03/07/[address] [facility] ELECTROLYTES Chloride Lvl 105 95 - 109 03/07/[address] [facility] ELECTROLYTES Glucose Lvl 108 70 - 99 03/07/[address] [facility] HEMATOLOGY Platelet 256 133 - 450 03/07/[address] [facility] HEMATOLOGY MPV 8.9 7.4 - 10.4 03/07/[address] [facility] HEMATOLOGY RDW 13.6 11.5 - 14.5 03/07/[address] [facility] HEMATOLOGY MCHC 33.8 32.0 - 36.0 03/07/[address] [facility] HEMATOLOGY MCV 86.3 80.0 - 98.0 03/07/[address] [facility] HEMATOLOGY MCH 29.2 27.0 - 31.0 03/07/[address] [facility] HEMATOLOGY Hgb 13.5 12.0 - 16.0 03/07/[address] [facility] HEMATOLOGY RBC 4.63 4.20 - 5.40 03/07/[address] [facility] HEMATOLOGY Hct 39.9 36.0 - 48.0 03/07/[address] [facility] HEMATOLOGY WBC 10.0 3.7 - 10.4 03/07/[address] [facility] HEMATOLOGY Basophils # 0.1 0.0 - 0.2 03/07/[address] [facility] HEMATOLOGY Eosinophils # 0.4 0.0 - 0.5 03/07/[address] [facility] HEMATOLOGY Eosinophils 4.4 0.0 - 4.0 03/07/[address] [facility] HEMATOLOGY Lymphocytes # 2.7 1.0 - 5.5 03/07/[address] [facility] HEMATOLOGY Basophils 0.7 0.0 - 1.0 03/07/[address] [facility] HEMATOLOGY Monocytes # 0.7 0.0 - 0.8 03/07/[address] [facility] HEMATOLOGY Neutrophils # 6.1 1.5 - 8.1 03/07/[address] [facility] HEMATOLOGY Monocytes 6.7 2.0 - 12.0 03/07/[address] [facility] HEMATOLOGY Lymphocytes 26.7 20.0 - 40.0 03/07/[address] [facility] HEMATOLOGY Segs 61.5 45.0 - 75.0 03/07/[address] [facility] CHEM PANEL Phosphorus 4.2 2.5 - 4.5 03/06/[address] [facility] CHEM PANEL Magnesium Lvl 1.8 1.8 - 2.4 03/06/[address] [facility] ELECTROLYTES Potassium Lvl 4.0 3.5 - 5.1 03/06/[address] [facility] ELECTROLYTES Chloride Lvl 107 95 - 109 03/06/[address] [facility] ELECTROLYTES CO2 26 24 - 32 03/06/[address] [facility] ELECTROLYTES Sodium Lvl 140 135 - 145 03/06/[address] [facility] ELECTROLYTES Creatinine Lvl 0.7 1 0.50 - 1.40 03/06/[address] [facility] ELECTROLYTES Calcium Lvl 8.6 8.5 - 10.5 03/06/[address] [facility] ELECTROLYTES eGFR 113 03/06/2019 Result Comment: [...] should be multiplied by the estimated BMI. [facility] ELECTROLYTES Glucose Lvl 101 70 - 99 03/06/[address] [facility] ELECTROLYTES BUN 11 7 - 22 03/06/[address] [facility] ELECTROLYTES AGAP 11.0 10.0 - 20.0 03/06/[address] [facility] HEMATOLOGY Eosinophils 4.7 0.0 - 4.0 03/06/[address] [facility] HEMATOLOGY Lymphocytes 27.0 20.0 - 40.0 03/06/[address] [facility] HEMATOLOGY Monocytes 7.3 2.0 - 12.0 03/06/[address] [facility] HEMATOLOGY Segs 59.8 45.0 - 75.0 03/06/[address] [facility] HEMATOLOGY Eosinophils # 0.4 0.0 - 0.5 03/06/[address] [facility] HEMATOLOGY Lymphocytes # 2.3 1.0 - 5.5 03/06/[address] [facility] HEMATOLOGY Monocytes # 0.6 0.0 - 0.8 03/06/[address] [facility] HEMATOLOGY Basophils 1.2 0.0 - 1.0 03/06/[address] [facility] HEMATOLOGY Neutrophils # 5.1 1.5 - 8.1 03/06/[address] [facility] HEMATOLOGY Basophils # 0.1 0.0 - 0.2 03/06/[address] [facility] HEMATOLOGY Hct 37.4 36.0 - 48.0 03/06/[address] [facility] HEMATOLOGY WBC 8.5 3.7 - 10.4 03/06/[address] [facility] HEMATOLOGY RBC 4.32 4.20 - 5.40 03/06/[address] [facility] HEMATOLOGY Hgb 12.7 12.0 - 16.0 03/06/2019 [facility] MCV 86.6 80.0 - 98.0 03/06/[address] [facility] HEMATOLOGY MPV 8.7 7.4 - 10.4 03/06/2019 [facility] Platelet 247 133 - 450 03/06/[address] [facility] HEMATOLOGY MCH 29.3 27.0 - 31.0 03/06/[address] [facility] HEMATOLOGY MCHC 33.9 32.0 - 36.0 03/06/[address] [facility] HEMATOLOGY RDW 13.7 11.5 - 14.5 03/06/[address] [facility] TOXICOLOGY Vanco Tr 17.8 03/05/[address] [facility] TOXICOLOGY Vanco Tr TND 1300 03/05/[address] [facility] CHEM PANEL Phosphorus 4.6 2.5 - 4.5 03/04/[address] [facility] CHEM PANEL Magnesium Lvl 1.7 1.8 - 2.4 03/04/[address] [facility] ELECTROLYTES AGAP 8.6 10.0 - 20.0 03/04/[address] [facility] ELECTROLYTES eGFR 119 03/04/2019 Result Comment: [...] should be multiplied by the estimated BMI. [facility] ELECTROLYTES Creatinine Lvl 0.6 2 0.50 - 1.40 03/04/[address] [facility] ELECTROLYTES Potassium Lvl 3.6 3.5 - 5.1 03/04/[address] [facility] ELECTROLYTES Sodium Lvl 143 135 - 145 03/04/[address] [facility] ELECTROLYTES Chloride Lvl 110 95 - 109 03/04/[address] [facility] ELECTROLYTES CO2 28 24 - 32 03/04/[address] [facility] ELECTROLYTES Calcium Lvl 8.2 8.5 - 10.5 03/04/[address] [facility] ELECTROLYTES BUN 7 7 - 22 03/04/[address] [facility] ELECTROLYTES Glucose Lvl 103 70 - 99 03/04/[address] [facility] HEMATOLOGY Hgb 12.5 12.0 - 16.0 03/04/[address] [facility] HEMATOLOGY MCH 29.7 27.0 - 31.0 03/04/[address] [facility] HEMATOLOGY MCV 86.9 80.0 - 98.0 03/04/[address] [facility] HEMATOLOGY Hct 36.5 36.0 - 48.0 03/04/[address] [facility] HEMATOLOGY Platelet 195 133 - 450 03/04/[address] [facility] HEMATOLOGY RDW 13.9 11.5 - 14.5 03/04/[address] [facility] HEMATOLOGY MPV 8.9 7.4 - 10.4 03/04/[address] [facility] HEMATOLOGY WBC 9.0 3.7 - 10.4 03/04/[address] [facility] HEMATOLOGY MCHC 34.2 32.0 - 36.0 03/04/[address] [facility] HEMATOLOGY RBC 4.20 4.20 - 5.40 03/04/[address] [facility] HEMATOLOGY Neutrophils # 5.2 1.5 - 8.1 03/04/[address] [facility] HEMATOLOGY Lymphocytes # 2.6 1.0 - 5.5 03/04/[address] [facility] HEMATOLOGY Monocytes # 0.8 0.0 - 0.8 03/04/[address] [facility] HEMATOLOGY Eosinophils # 0.4 0.0 - 0.5 03/04/[address] [facility] HEMATOLOGY Segs 57.6 45.0 - 75.0 03/04/[address] [facility] HEMATOLOGY Lymphocytes 28.4 20.0 - 40.0 03/04/[address] [facility] HEMATOLOGY Monocytes 8.8 2.0 - 12.0 03/04/[address] [facility] HEMATOLOGY Eosinophils 4.1 0.0 - 4.0 03/04/[address] [facility] HEMATOLOGY Basophils 1.1 0.0 - 1.0 03/04/[address] [facility] HEMATOLOGY Basophils # 0.1 0.0 - 0.2 03/04/[address] [facility] CIPROFLOXACIN:SUSC:PT:ISOLATE:ORDQN:MONISHA Gram Stain Report Few WBC's Rare Gram Positive Cocci 03/02/2019 [facility] CIPROFLOXACIN:SUSC:PT:ISOLATE:ORDQN:MONISHA Culture: Wound/Abscess w/Gram Stain Many Staphylococcus aureus 03/02/2019 [facility] CIPROFLOXACIN:SUSC:PT:ISOLATE:ORDQN:MONISHA Staphylococcus aureus Staphylococcus aureus 03/02/[address] [facility] TOXICOLOGY Vanco Tr TND 1300 03/02/[address] [facility] TOXICOLOGY Vanco Tr 14.7 03/02/[address] [facility] URINE AND STOOL UA Urobilinogen <=1.0 mg/dL 0.1 - 1.0 [facility]01[facility] Mucus Few /LPF None Seen /LPF 03/01/[address] [facility] URINE AND STOOL UA Leuk Est Negative (03/01/19 4:13 PM) Negative 03/01/2019 [facility] URINE AND STOOL UA Sq Epi Few /LPF Few /LPF 03/01/2019 [facility] URINE AND STOOL UA Nitrite Negative (03/01/19 4:13 PM) Negative 03/01/[address] [facility] URINE AND STOOL UA RBC 87 0 - 2 03/01/2019 [facility] URINE AND STOOL UA WBC 3 0 - 5 03/01/2019 [facility] URINE AND STOOL UA Bacteria Occasional /HPF None Seen /HPF 03/01/2019 [facility] AND STOOL UA pH 7.0 5.0 - 8.0 03/01/[address] [facility] URINE AND STOOL UA Ketones Negative mg/dL Negative mg/dL 03/01/2019 [facility] URINE AND STOOL UA Protein Negative mg/dL Negative mg/dL 03/01/2019 [facility] URINE AND STOOL UA Glucose Negative mg/dL Negative mg/dL 03/01/2019 [facility] URINE AND STOOL UA Blood Large *ABN* (03/01/19 4:13 PM) Negative 03/01/[address] [facility] URINE AND STOOL UA Bili Negative *NA* (03/01/19 4:13 PM) Negative 03/01/[address] [facility] URINE AND STOOL UA Spec Grav 1.010 <=1.030 03/01/[address] [facility] URINE AND STOOL UA Turbidity Slight *ABN* (03/01/19 4:13 PM) Clear 03/01/[address] [facility] URINE AND STOOL UA Color Yellow *NA* (03/01/19 4:13 PM) Yellow 03/01/2019 [facility] CHEM PANEL Albumin Lvl 3.4 3.5 - 5.0 03/01/2019 [facility] CHEM PANEL Total Protein 7.2 6.4 - 8.4 03/01/[address] [facility] CHEM PANEL Alk Phos 86 39 - 136 03/01/2019 [facility] CHEM PANEL Bili Total 0.5 0.2 - 1.3 03/01/[address] [facility] CHEM PANEL AST 12 0 - 37 03/01/[address] [facility] CHEM PANEL ALT 20 0 - 65 03/01/2019 [facility] CHEM PANEL A/G Ratio 0.9 0.7 - 1.6 03/01/[address] [facility] CHEM PANEL B/C Ratio 16 6 - 25 03/01/2019 [facility] CHEM PANEL Globulin 3.8 2.7 - 4.2 03/01/[address] [facility] HEMATOLOGY INR 1.14 0.85 - 1.17 03/01/[address] [facility] HEMATOLOGY PTT 38.3 22.9 - 35.8 03/01/[address] [facility] HEMATOLOGY PT 14.4 12.0 - 14.7 03/01/2019 [facility] CHEM PANEL Lactic Acid Lvl 1.4 0.5 - 2.2 03/01/2019 [facility] ENDOCRINOLOGY hCG Tot <1 03/01/[address] [facility] TOXICOLOGY Vanco Tr 10.8 01/31/2019 [facility] TOXICOLOGY Vanco Tr TND 2000 01/31/2019 [facility] BACTERIAL - SEROLOGY MRSA by PCR Negative (01/30/19 11:23 AM) 01/30/2019 [facility] TOXICOLOGY Vanco Tr 18.9 01/29/2019 [facility] TOXICOLOGY Vanco Tr TND 1330 01/29/2019 [facility] HEMATOLOGY MCH 28.5 27.0 - 31.0 01/29/2019 [facility] HEMATOLOGY MCV 87.8 80.0 - 98.0 01/29/2019 [facility] HEMATOLOGY Hct 38.5 36.0 - 48.0 01/29/2019 [facility] HEMATOLOGY Hgb 12.5 12.0 - 16.0 01/29/2019 [facility] HEMATOLOGY RBC 4.38 4.20 - 5.40 01/29/2019 [facility] HEMATOLOGY Platelet 244 133 - 450 01/29/2019 [facility] HEMATOLOGY MCHC 32.5 32.0 - 36.0 01/29/2019 [facility] HEMATOLOGY MPV 8.5 7.4 - 10.4 01/29/2019 [facility] HEMATOLOGY RDW 13.5 11.5 - 14.5 01/29/2019 [facility] HEMATOLOGY WBC 8.1 3.7 - 10.4 01/29/2019 [facility] TOXICOLOGY Vanco Tr 18.3 01/28/2019 [facility] TOXICOLOGY Vanco Tr TND 1230 01/28/2019 [facility] CEFEPIME:SUSC:PT:ISOLATE:ORDQN:MONISHA G jade Stain Report Rare Gram Negative Rods No WBC's Seen 01/28/2019 [facility] CEFEPIME:SUSC:PT:ISOLATE:ORDQN:MONISHA Culture: Wound/Abscess w/Gram Stain Moderate Proteus mirabilis Moderate Klebsiella pneumoniae ssp pneumoniae Few Staphylococcus aureus 01/28/2019 [facility] CEFEPIME:SUSC:PT:ISOLATE:ORDQN:MONISHA Staphylococcus aureus Staphylococcus aureus 01/28/2019 [facility] CEFEPIME:SUSC:PT:ISOLATE:ORDQN:MONISHA Klebsiella pneumoniae ssp pneumoniae Klebsiella pneumoniae ssp pneumoniae 01/28/2019 [facility] CEFEPIME:SUSC:PT:ISOLATE:ORDQN:MONISHA P roteus mirabilis Proteus mirabilis 01/28/2019 [facility] URINE AND STOOL UA Leuk Est Negative (01/27/19 6:31 AM) Negative 01/27/2019 [facility] URINE AND STOOL UA WBC 2 0 - 5 01/27/2019 [facility] URINE AND STOOL UA RBC 5 0 - 2 01/27/2019 [facility] URINE AND STOOL UA Sq Epi Moderate /LPF Few /LPF 01/27/2019 [facility] URINE AND STOOL UA Protein Negative mg/dL Negative mg/dL 01/27/2019 [facility] URINE AND STOOL UA pH 6.0 5.0 - 8.0 01/27/2019 [facility] URINE AND STOOL UA Color Yellow *NA* (01/27/19 6:31 AM) Yellow 01/27/2019 [facility] URINE AND STOOL UA Spec Grav 1.028 <=1.030 01/27/2019 [facility] URINE AND STOOL UA Turbidity Slight *ABN* (01/27/19 6:31 AM) Clear 01/27/2019 [facility] URINE AND STOOL UA Mucus Few /LPF None Seen /LPF 01/27/2019 [facility] URINE AND STOOL UA Bacteria Occasional /HPF None Seen /HPF 01/27/2019 [facility] URINE AND STOOL UA Glucose Negative mg/dL Negative mg/dL 01/27/2019 [facility] URINE AND STOOL UA Blood Negative (01/27/19 6:31 AM) Negative 01/27/2019 [facility] URINE AND STOOL UA Bili Negative *NA* (01/27/19 6:31 AM) Negative 01/27/2019 [facility] URINE AND STOOL UA Nitrite Negative (01/27/19 6:31 AM) Negative 01/27/2019 [facility] URINE AND STOOL UA Ketones Negative mg/dL Negative mg/dL 01/27/2019 [facility] URINE AND STOOL UA Urobilinogen <=1.0 mg/dL 0.1 - 1.0 01/27/2019 [facility] URINE CHEM U Preg Negat theron (01/27/19 6:31 AM) Negative 01/27/2019 [facility] CHEM PANEL Lactic Acid Lvl 1.5 0.5 - 2.2 01/27/2019 [facility] CHEM PANEL B/C Ratio 19 6 - 25 01/27/2019 [facility] CHEM PANEL Globulin 3.9 2.7 - 4.2 01/27/2019 [facility] CHEM PANEL A/G Ratio 0.9 0.7 - 1.6 01/27/2019 [facility] CHEM PANEL AGAP 13.9 10.0 - 20.0 01/27/2019 [facility] CHEM PANEL eGFR 106 01/27/2019 Result Comment: [...] should be multiplied by the estimated BMI. [facility] CHEM PANEL AST 18 0 - 37 01/27/2019 [facility] CHEM PANEL Alk Phos 92 39 - 136 01/27/2019 [facility] CHEM PANEL Potassium Lvl 3.9 3.5 - 5.1 01/27/2019 [facility] CHEM PANEL Bili Total 0.3 0.2 - 1.3 01/27/2019 [facility] CHEM PANEL Albumin Lvl 3.6 3.5 - 5.0 01/27/2019 [facility] CHEM PANEL ALT 24 0 - 65 01/27/2019 [facility] CHEM PANEL Total Protein 7.5 6.4 - 8.4 01/27/2019 [facility] CHEM PANEL Chloride Lvl 108 95 - 109 01/27/2019 [facility] CHEM PANEL CO2 24 24 - 32 01/27/2019 [facility] CHEM PANEL Sodium Lvl 142 135 - 145 01/27/2019 [facility] CHEM PANEL Calcium Lvl 8.5 8.5 - 10.5 01/27/2019 [facility] CHEM PANEL BUN 14 7 - 22 01/27/2019 [facility] CHEM PANEL Creatinine Lvl 0.75 0.50 - 1.40 01/27/2019 [facility] CHEM PANEL Glucose Lvl 91 70 - 99 01/27/2019 [facility] HEMATOLOGY Eosinophils 6.5 0.0 - 4.0 01/27/2019 [facility] HEMATOLOGY Monocytes 8.1 2.0 - 12.0 01/27/2019 [facility] HEMATOLOGY Basophils 0.9 0.0 - 1.0 01/27/2019 [facility] HEMATOLOGY Lymphocytes # 2.9 1.0 - 5.5 01/27/2019 [facility] HEMATOLOGY Neutrophils # 7.4 1.5 - 8.1 01/27/2019 [facility] HEMATOLOGY Monocytes # 1.0 0.0 - 0.8 01/27/2019 [facility] HEMATOLOGY Eosinophils # 0.8 0.0 - 0.5 01/27/2019 [facility] HEMATOLOGY Basophils # 0.1 0.0 - 0.2 01/27/2019 [facility] HEMATOLOGY Lymphocytes 23.6 20.0 - 40.0 01/27/2019 [facility] HEMATOLOGY Segs 60.9 45.0 - 75.0 01/27/2019 [facility] HEMATOLOGY WBC 12.2 3.7 - 10.4 01/27/[address] [facility] MCHC 32.4 32.0 - 36.0 01/27/[address] [facility] RDW 13.7 11.5 - 14.5 01/27/[address] [facility] MCH 28.5 27.0 - 31.0 01/27/[address] [facility] MCV 88.2 80.0 - 98.0 01/27/[address] [facility] Hct 41.4 36.0 - 48.0 01/27/[address] [facility] RBC 4.69 4.20 - 5.40 01/27/[address] [facility] Hgb 13.4 12.0 - 16.0 01/27/[address] [facility] MPV 8.8 7.4 - 10.4 01/27/[address] [facility] Platelet 253 133 - 450 01/27/2019 [facility] CHEM PANEL Lactic Acid Lvl 1.0 0.5 - 2.2 12/13/[address] [facility] ELECTROLYTES Sodium Lvl 140 135 - 145 12/13/[address] [facility] ELECTROLYTES Creatinine Lvl 1.0 4 0.50 - 1.40 12/13/[address] [facility] ELECTROLYTES eGFR 71 12/13/2018 Result Comment: [...] should be multiplied by the estimated BMI. [facility] ELECTROLYTES Glucose Lvl 88 70 - 99 12/13/[address] [facility] ELECTROLYTES Potassium Lvl 3.4 3.5 - 5.1 12/13/[address] [facility] ELECTROLYTES BUN 15 7 - 22 12/13/[address] [facility] ELECTROLYTES Alk Phos 79 39 - 136 12/13/[address] [facility] ELECTROLYTES Albumin Lvl 3.2 3.5 - 5.0 12/13/[address] [facility] ELECTROLYTES AST 15 0 - 37 12/13/[address] [facility] ELECTROLYTES Bili Total 0.2 0.2 - 1.3 12/13/[address] [facility] ELECTROLYTES ALT 24 0 - 65 12/13/[address] [facility] ELECTROLYTES Chloride Lvl 105 95 - 109 12/13/[address] [facility] ELECTROLYTES CO2 29 24 - 32 12/13/[address] [facility] ELECTROLYTES Calcium Lvl 8.8 8.5 - 10.5 12/13/[address] [facility] ELECTROLYTES Total Protein 7.7 6.4 - 8.4 12/13/[address] [facility] ELECTROLYTES B/C Ratio 14 6 - 25 12/13/[address] [facility] ELECTROLYTES AGAP 9.4 10.0 - 20.0 12/13/2018 [facility] ELECTROLYTES A/G Ratio 0.7 0.7 - 1.6 12/13/2018 [facility] ELECTROLYTES Globulin 4.5 2.7 - 4.2 12/13/2018 [facility] HEMATOLOGY Basophils # 0.1 0.0 - 0.2 12/13/2018 [facility] HEMATOLOGY Lymphocytes # 2.6 1.0 - 5.5 12/13/2018 [facility] HEMATOLOGY Monocytes # 0.8 0.0 - 0.8 12/13/2018 [facility] HEMATOLOGY Eosinophils # 0.5 0.0 - 0.5 12/13/2018 [facility] HEMATOLOGY Eosinophils 4.0 0.0 - 4.0 12/13/2018 [facility] HEMATOLOGY Monocytes 7.1 2.0 - 12.0 12/13/[address] [facility] HEMATOLOGY Lymphocytes 22.7 20.0 - 40.0 12/13/2018 [facility] HEMATOLOGY Basophils 1.2 0.0 - 1.0 12/13/[address] [facility] HEMATOLOGY Neutrophils # 7.3 1.5 - 8.1 12/13/[address] [facility] HEMATOLOGY Segs 65.0 45.0 - 75.0 12/13/[address] [facility] HEMATOLOGY RDW 13.3 11.5 - 14.5 12/13/[address] [facility] HEMATOLOGY MCHC 33.7 32.0 - 36.0 12/13/[address] [facility] HEMATOLOGY Platelet 314 133 - 450 12/13/[address] [facility] HEMATOLOGY MPV 7.7 7.4 - 10.4 12/13/[address] [facility] HEMATOLOGY RBC 4.45 4.20 - 5.40 12/13/[address] [facility] HEMATOLOGY MCH 28.9 27.0 - 31.0 12/13/[address] [facility] HEMATOLOGY MCV 85.7 80.0 - 98.0 12/13/[address] [facility] HEMATOLOGY WBC 11.3 3.7 - 10.4 12/13/[address] [facility] HEMATOLOGY Hgb 12.9 12.0 - 16.0 12/13/[address] [facility] HEMATOLOGY Hct 38.1 36.0 - 48.0 12/13/[address] [facility] TOXICOLOGY Vanco Tr TND 2100 12/09/[address] [facility] TOXICOLOGY Vanco Tr 16.7 12/09/[address] [facility] CHEM PANEL eGFR 93 12/08/2018 Result [...] should be multiplied by the estimated BMI. [place] CHEM PANEL Sodium Lvl 143 135 - 145 12/08/[address] [facility] CHEM PANEL Creatinine Lvl 0.83 0.50 - 1.40 [facility]/08[facility] BUN 6 7 - 22 12/08/2018 [place] CHEM PANEL Glucose Lvl 98 70 - 99 12/08/2018 [place] CHEM PANEL CO2 29 24 - 32 12/08/2018 [place] CHEM PANEL Chloride Lvl 106 95 - 109 12/08/2018 [place] CHEM PANEL Potassium Lvl 3.8 3.5 - 5.1 12/08/2018 [facility] Calcium Lvl 8.8 8.5 - 10.5 12/08/[address] [facility] CHEM PANEL AGAP 11.8 10.0 - 20.0 12/08/[address] [facility] HEMATOLOGY Monocytes 8.5 2.0 - 12.0 12/08/[address] [facility] HEMATOLOGY Segs 61.1 45.0 - 75.0 12/08/[address] [facility] HEMATOLOGY Eosinophils 5.9 0.0 - 4.0 12/08/[address] [facility] HEMATOLOGY Lymphocytes 23.5 20.0 - 40.0 12/08/[address] [facility] HEMATOLOGY Basophils # 0.1 0.0 - 0.2 12/08/[address] [facility] HEMATOLOGY Eosinophils # 0.6 0.0 - 0.5 12/08/[address] [facility] HEMATOLOGY Monocytes # 0.8 0.0 - 0.8 12/08/[address] [facility] HEMATOLOGY Lymphocytes # 2.3 1.0 - 5.5 12/08/2018 [facility] HEMATOLOGY Basophils 1.0 0.0 - 1.0 12/08/[address] [facility] HEMATOLOGY Neutrophils # 6.0 1.5 - 8.1 12/08/[address] [facility] HEMATOLOGY MPV 7.8 7.4 - 10.4 12/08/[address] [facility] HEMATOLOGY Platelet 278 133 - 450 12/08/[address] [facility] HEMATOLOGY RDW 13.1 11.5 - 14.5 12/08/[address] [facility] HEMATOLOGY MCHC 33.6 32.0 - 36.0 12/08/[address] [facility] HEMATOLOGY Hct 35.3 36.0 - 48.0 12/08/2018 [facility] HEMATOLOGY MCV 86.2 80.0 - 98.0 12/08/2018 [facility] HEMATOLOGY WBC 9.7 3.7 - 10.4 12/08/[address] [facility] HEMATOLOGY MCH 28.9 27.0 - 31.0 12/08/2018 [facility] HEMATOLOGY RBC 4.10 4.20 - 5.40 12/08/2018 [facility] HEMATOLOGY Hgb 11.9 12.0 - 16.0 12/08/[address] [facility] TOXICOLOGY Vanco Tr TND mar 12/07/2018 [facility] TOXICOLOGY Vanco Tr 15.3 12/07/[address] [facility] ELECTROLYTES AGAP 9.8 10.0 - 20.0 12/07/[address] [facility] ELECTROLYTES eGFR 116 12/07/2018 Result Comment: [...] should be multiplied by the estimated BMI. [facility] ELECTROLYTES Chloride Lvl 106 95 - 109 12/07/[address] [facility] ELECTROLYTES Potassium Lvl 3.8 3.5 - 5.1 12/07/[address] [facility] ELECTROLYTES Calcium Lvl 8.1 8.5 - 10.5 12/07/[address] [facility] ELECTROLYTES CO2 31 24 - 32 12/07/[address] [facility] ELECTROLYTES Sodium Lvl 143 135 - 145 12/07/[address] [facility] ELECTROLYTES Creatinine Lvl 0.6 9 0.50 - 1.40 12/07/[address] [facility] ELECTROLYTES BUN 6 7 - 22 12/07/[address] [facility] ELECTROLYTES Glucose Lvl 116 70 - 99 12/07/2018 [facility] HEMATOLOGY MCV 87.1 80.0 - 98.0 12/07/[address] [facility] HEMATOLOGY Hct 34.8 36.0 - 48.0 12/07/[address] [facility] HEMATOLOGY MCH 28.8 27.0 - 31.0 12/07/[address] [facility] HEMATOLOGY Hgb 11.5 12.0 - 16.0 12/07/[address] [facility] HEMATOLOGY MPV 7.7 7.4 - 10.4 12/07/[address] [facility] HEMATOLOGY RDW 13.3 11.5 - 14.5 12/07/2018 [facility] MCHC 33.1 32.0 - 36.0 12/07/2018 [facility] Platelet 274 133 - 450 12/07/2018 [facility] RBC 4.00 4.20 - 5.40 12/07/[address] [facility] HEMATOLOGY WBC 9.8 3.7 - 10.4 12/07/[address] [facility] HEMATOLOGY Monocytes # 0.8 0.0 - 0.8 12/07/2018 [facility] HEMATOLOGY Eosinophils # 0.6 0.0 - 0.5 12/07/[address] [facility] HEMATOLOGY Basophils # 0.1 0.0 - 0.2 12/07/[address] [facility] HEMATOLOGY Segs 61.0 45.0 - 75.0 12/07/2018 [facility] Monocytes 7.8 2.0 - 12.0 12/07/[address] [facility] HEMATOLOGY Basophils 1.1 0.0 - 1.0 12/07/2018 [facility] Eosinophils 6.5 0.0 - 4.0 12/07/2018 [facility] Lymphocytes 23.6 20.0 - 40.0 12/07/2018 [facility] Lymphocytes # 2.3 1.0 - 5.5 12/07/2018 [facility] Neutrophils # 6.0 1.5 - 8.1 12/07/[address] [facility] AMPICILLIN+SULBACTAM:SUSC:PT:ISOLATE:ORDQN:MONISHA Gram Stain Report Rare WBC's No Organisms Seen 12/06/2018 [facility] AMPICILLIN+SULBACTAM:SUSC:PT:ISOLATE:ORDQN:MONISHA Culture: Wound/Abscess w/Gram Stain Many Staphylococcus aureus . Sensitivity Pending 12/06/2018 [facility] AMPICILLIN+SULBACTAM:SUSC:PT:ISOLATE:ORDQN:MONISHA Staphylococcus aureus Staphylococcus aureus 12/06/2018 [facility] Culture: Anaerobic No Anaerobes Is olated After 4 Days 12/06/2018 [facility] TOXICOLOGY Vanco Tr TND 0930 12/06/[address] [facility] TOXICOLOGY Vanco Tr 14.8 12/06/2018 [facility] CHEM PANEL eGFR 129 12/06/2018 Result [...] should be multiplied by the estimated BMI. [facility] CHEM PANEL BUN 8 7 - 22 12/06/2018 [facility] CHEM PANEL Creatinine Lvl 0.49 0.50 - 1.40 12/06/[address] [facility] CHEM PANEL Calcium Lvl 8.2 8.5 - 10.5 12/06/[address] [facility] CHEM PANEL Potassium Lvl 3.8 3.5 - 5.1 12/06/[address] [facility] CHEM PANEL Sodium Lvl 139 135 - 145 12/06/2018 [facility] CHEM PANEL Chloride Lvl 106 95 - 109 12/06/[address] [facility] CHEM PANEL CO2 27 24 - 32 12/06/[address] [facility] CHEM PANEL Glucose Lvl 99 70 - 99 12/06/2018 [facility] CHEM PANEL AGAP 9.8 10.0 - 20.0 12/06/2018 [facility] HEMATOLOGY Basophils # 0.1 0.0 - 0.2 12/06/[address] [facility] HEMATOLOGY Basophils 1.0 0.0 - 1.0 12/06/[address] [facility] HEMATOLOGY Lymphocytes # 2.1 1.0 - 5.5 12/06/2018 [facility] HEMATOLOGY Neutrophils # 4.8 1.5 - 8.1 12/06/2018 [facility] HEMATOLOGY Eosinophils # 0.5 0.0 - 0.5 12/06/2018 [facility] HEMATOLOGY Monocytes # 0.8 0.0 - 0.8 12/06/2018 [facility] HEMATOLOGY Monocytes 9.8 2.0 - 12.0 12/06/[address] [facility] HEMATOLOGY Lymphocytes 25.0 20.0 - 40.0 12/06/2018 [facility] HEMATOLOGY Eosinophils 6.3 0.0 - 4.0 12/06/2018 [facility] HEMATOLOGY Segs 57.9 45.0 - 75.0 12/06/2018 [facility] HEMATOLOGY INR 1.09 0.85 - 1.17 12/06/[address] [facility] HEMATOLOGY PT 13.9 12.0 - 14.7 12/06/2018 [facility] HEMATOLOGY MPV 8.3 7.4 - 10.4 12/06/[address] [facility] HEMATOLOGY RDW 13.2 11.5 - 14.5 12/06/[address] [facility] HEMATOLOGY MCHC 33.0 32.0 - 36.0 12/06/[address] [facility] HEMATOLOGY Platelet 240 133 - 450 12/06/2018 [facility] HEMATOLOGY RBC 3.96 4.20 - 5.40 12/06/2018 [facility] HEMATOLOGY WBC 8.4 3.7 - 10.4 12/06/[address] [facility] HEMATOLOGY MCH 28.6 27.0 - 31.0 12/06/2018 [facility] HEMATOLOGY MCV 86.6 80.0 - 98.0 12/06/[address] [facility] HEMATOLOGY Hgb 11.3 12.0 - 16.0 12/06/[address] [facility] HEMATOLOGY Hct 34.3 36.0 - 48.0 12/06/[address] [facility] TOXICOLOGY Vanco Lvl 15.3 12/05/2018 [facility] CHEM PANEL Magnesium Lvl 1.9 1.8 - 2.4 12/04/[address] [facility] CHEM PANEL Bili Total 0.7 0.2 - 1.3 12/04/[address] [facility] CHEM PANEL Alk Phos 72 39 - 136 12/04/[address] [facility] CHEM PANEL Total Protein 6.9 6.4 - 8.4 12/04/[address] [facility] CHEM PANEL AST 13 0 - 37 12/04/[address] [facility] CHEM PANEL ALT 29 0 - 65 12/04/[address] [facility] CHEM PANEL Albumin Lvl 2.8 3.5 - 5.0 12/04/[address] [facility] CHEM PANEL Globulin 4.1 2.7 - 4.2 12/04/2018 [facility] CHEM PANEL A/G Ratio 0.7 0.7 - 1.6 12/04/[address] [facility] CHEM PANEL B/C Ratio 14 6 - 25 12/04/2018 [facility] HEMATOLOGY PTT 44.5 22.9 - 35.8 12/04/[address] [facility] HEMATOLOGY PT 16.0 12.0 - 14.7 12/04/[address] [facility] HEMATOLOGY INR 1.31 0.85 - 1.17 12/04/[address] [facility] CHEM PANEL Lactic Acid Lvl 1.1 0.5 - 2.2 12/04/2018 [facility] [place] CHEM PANEL Lactic Acid Lvl 0.7 0.5 - 2.2 12/03/[address] [facility] ENDOCRINOLOGY S Preg Ne gative *NA* (12/03/18 4:23 PM) [facility] Lactic Acid Lvl 1.0 0.5 - 2.2 10/11/2018 [place] CHEM PANEL B/C Ratio 19 6 - 25 [facility] AGAP 9.8 10.0 - 20.0 [facility]/11/[facility] Globulin 4.5 2.7 - 4.2 [facility]/11/[facility] A/G Ratio 0.8 0.7 - 1.6 [facility]/11/[facility] eGFR 93 10/11/2018 Result Comment: [...] should be multiplied by the estimated BMI. [place] CHEM PANEL ALT 24 0 - 65 [facility]11[facility] AST 17 0 - 37 [facility]/11[facility] Alk Phos 81 39 - 136 [facility]/11/[facility] Bili Total 0.3 0.2 - 1.3 10/11/2018 [facility] Creatinine Lvl 0.83 0.50 - 1.40 10/11/2018 [place] CHEM PANEL Glucose Lvl 84 70 - 99 10/11/2018 [place] CHEM PANEL BUN 16 7 - 22 10/11/2018 [place] CHEM PANEL Potassium Lvl 3.8 3.5 - 5.1 10/11/[address] [facility] CHEM PANEL Sodium Lvl 139 135 - 145 10/11/[address] [facility] CHEM PANEL CO2 26 24 - 32 10/11/[address] [facility] CHEM PANEL Calcium Lvl 8.5 8.5 - 10.5 10/11/[address] [facility] CHEM PANEL Chloride Lvl 107 95 - 109 10/11/[address] [facility] CHEM PANEL Total Protein 8.0 6.4 - 8.4 10/11/[address] [facility] CHEM PANEL Albumin Lvl 3.5 3.5 - 5.0 10/11/[address] [facility] HEMATOLOGY Monocytes # 0.8 0.0 - 0.8 10/11/2018 [facility] HEMATOLOGY Basophils # 0.1 0.0 - 0.2 10/11/[address] [facility] HEMATOLOGY Eosinophils # 0.3 0.0 - 0.5 10/11/[address] [facility] HEMATOLOGY Monocytes 7.7 2.0 - 12.0 10/11/[address] [facility] HEMATOLOGY Eosinophils 3.0 0.0 - 4.0 10/11/2018 [facility] HEMATOLOGY Basophils 0.6 0.0 - 1.0 10/11/[address] [facility] HEMATOLOGY Neutrophils # 6.8 1.5 - 8.1 10/11/[address] [facility] HEMATOLOGY Lymphocytes # 2.4 1.0 - 5.5 10/11/[address] [facility] HEMATOLOGY Lymphocytes 22.9 20.0 - 40.0 10/11/[address] [facility] HEMATOLOGY Segs 65.8 45.0 - 75.0 10/11/[address] [facility] HEMATOLOGY RDW 13.3 11.5 - 14.5 10/11/[address] [facility] HEMATOLOGY MCHC 32.5 32.0 - 36.0 10/11/[address] [facility] HEMATOLOGY MCH 28.8 27.0 - 31.0 10/11/[address] [facility] HEMATOLOGY Hct 42.6 36.0 - 48.0 10/11/[address] [facility] HEMATOLOGY Hgb 13.8 12.0 - 16.0 10/11/[address] [facility] HEMATOLOGY WBC 10.3 3.7 - 10.4 10/11/[address] [facility] HEMATOLOGY MCV 88.5 80.0 - 98.0 10/11/[address] [facility] HEMATOLOGY RBC 4.81 4.20 - 5.40 10/11/[address] [facility] HEMATOLOGY Platelet 272 133 - 450 10/11/2018 [facility] HEMATOLOGY MPV 8.7 7.4 - 10.4 10/11/[address] [facility] CHEM PANEL Lactic Acid Lvl 1.5 0.5 - 2.2 09/06/2018 [facility] CHEM PANEL Bili Total 0.5 0.2 - 1.3 09/06/2018 [facility] CHEM PANEL AST 15 0 - 37 09/06/2018 [facility] CHEM PANEL Alk Phos 74 39 - 136 09/06/2018 [facility] CHEM PANEL eGFR 72 09/06/2018 Result Comment: [...] should be multiplied by the estimated BMI. [facility] CHEM PANEL Creatinine Lvl 1.03 0.50 - 1.40 09/06/2018 [facility] CHEM PANEL Sodium Lvl 140 135 - 145 09/06/2018 [facility] CHEM PANEL Potassium Lvl 3.6 3.5 - 5.1 09/06/2018 [facility] CHEM PANEL Total Protein 7.4 6.4 - 8.4 09/06/2018 [facility] CHEM PANEL Albumin Lvl 3.3 3.5 - 5.0 09/06/2018 [facility] CHEM PANEL ALT 27 0 - 65 09/06/2018 [facility] CHEM PANEL Glucose Lvl 120 70 - 99 09/06/2018 [facility] CHEM PANEL BUN 11 7 - 22 09/06/2018 [facility] CHEM PANEL Calcium Lvl 8.3 8.5 - 10.5 09/06/2018 [facility] CHEM PANEL Chloride Lvl 109 95 - 109 09/06/2018 [facility] CHEM PANEL CO2 24 24 - 32 09/06/2018 [facility] CHEM PANEL A/G Ratio 0.8 0.7 - 1.6 09/06/2018 [facility] CHEM PANEL AGAP 10.6 10.0 - 20.0 09/06/2018 [facility] CHEM PANEL B/C Ratio 11 6 - 25 09/06/2018 [facility] CHEM PANEL Globulin 4.1 2.7 - 4.2 09/06/2018 [facility] CHEM PANEL Lipase Lvl 200 73 - 393 09/06/2018 [facility] ENDOCRINOLOGY S Preg Ne gative *NA* (09/06/18 12:46 AM) Negative 09/06/2018 [facility] HEMATOLOGY Platelet 230 133 - 450 09/06/2018 [facility] HEMATOLOGY MPV 8.3 7.4 - 10.4 09/06/[address] [facility] MCHC 33.1 32.0 - 36.0 09/06/2018 [facility] HEMATOLOGY RDW 13.7 11.5 - 14.5 09/06/[address] [facility] MCH 28.5 27.0 - 31.0 09/06/2018 [facility] HEMATOLOGY RBC 4.70 4.20 - 5.40 09/06/2018 [facility] HEMATOLOGY Hgb 13.4 12.0 - 16.0 09/06/2018 [facility] HEMATOLOGY WBC 12.6 3.7 - 10.4 09/06/2018 [facility] HEMATOLOGY Hct 40.5 36.0 - 48.0 09/06/2018 [facility] HEMATOLOGY MCV 86.2 80.0 - 98.0 09/06/2018 [facility] HEMATOLOGY Basophils # 0.1 0.0 - 0.2 09/06/2018 [facility] HEMATOLOGY Eosinophils # 0.4 0.0 - 0.5 09/06/2018 [facility] HEMATOLOGY Monocytes # 0.8 0.0 - 0.8 09/06/2018 [facility] HEMATOLOGY Neutrophils # 8.4 1.5 - 8.1 09/06/2018 [facility] HEMATOLOGY Lymphocytes # 2.9 1.0 - 5.5 09/06/2018 [facility] HEMATOLOGY Eosinophils 3.6 0.0 - 4.0 09/06/2018 [facility] HEMATOLOGY Basophils 0.7 0.0 - 1.0 09/06/2018 [facility] HEMATOLOGY Lymphocytes 22.9 20.0 - 40.0 09/06/2018 [facility] HEMATOLOGY Monocytes 6.3 2.0 - 12.0 09/06/2018 [facility] HEMATOLOGY Segs 66.5 45.0 - 75.0 09/06/2018 [...] Negative *NA* (09/06/18 12:46 AM) Negative 09/06/2018 [facility] URINE AND STOOL UA Bacteria Occasional /HPF None Seen /HPF 09/06/2018 [facility] st URINE AND STOOL UA Bili Negative *NA* (09/06/18 12:46 AM) Negative 09/06/2018 [facility] URINE AND STOOL UA Urobilinogen <=1.0 mg/dL 0.1 - 1.0 09/06/2018 [facility] [address] URINE AND STOOL UA Blood Large *ABN* (09/06/18 12:46 AM) Negative 09/06/2018 [facility] CHEM PANEL Magnesium Lvl 1.9 1.8 - 2.4 08/28/[address] [facility] ELECTROLYTES AGAP 11.1 10.0 - 20.0 08/28/[address] [facility] ELECTROLYTES eGFR 116 08/28/2018 Result Comment: [...] should be multiplied by the estimated BMI. [facility] ELECTROLYTES Calcium Lvl 8.4 8.5 - 10.5 08/28/2018 [facility] ELECTROLYTES BUN 13 7 - 22 08/28/[address] [facility] ELECTROLYTES Sodium Lvl 137 135 - 145 08/28/2018 [facility] ELECTROLYTES Creatinine Lvl 0.6 9 0.50 - 1.40 08/28/[address] [facility] ELECTROLYTES Potassium Lvl 4.1 3.5 - 5.1 08/28/[address] [facility] ELECTROLYTES CO2 25 24 - 32 08/28/[address] [facility] ELECTROLYTES Chloride Lvl 105 95 - 109 08/28/2018 [facility] ELECTROLYTES Glucose Lvl 105 70 - 99 08/28/2018 [facility] HEMATOLOGY INR 1.01 0.85 - 1.17 08/28/2018 [facility] HEMATOLOGY PTT 33.7 22.9 - 35.8 08/28/[address] [facility] HEMATOLOGY PT 13.1 12.0 - 14.7 08/28/[address] [facility] HEMATOLOGY Lymphocytes 26.9 20.0 - 40.0 08/28/2018 [facility] Lymphocytes # 2.1 1.0 - 5.5 08/28/[address] [facility] HEMATOLOGY Eosinophils 6.7 0.0 - 4.0 08/28/2018 [facility] HEMATOLOGY Monocytes 9.3 2.0 - 12.0 08/28/[address] [facility] HEMATOLOGY Segs 56.2 45.0 - 75.0 08/28/2018 [facility] Monocytes # 0.7 0.0 - 0.8 08/28/[address] [facility] HEMATOLOGY Eosinophils # 0.5 0.0 - 0.5 08/28/2018 [facility] HEMATOLOGY Neutrophils # 4.3 1.5 - 8.1 08/28/2018 [facility] HEMATOLOGY Basophils 0.9 0.0 - 1.0 08/28/2018 [facility] HEMATOLOGY Basophils # 0.1 0.0 - 0.2 08/28/2018 [facility] MPV 8.1 7.4 - 10.4 08/28/2018 [facility] RDW 13.4 11.5 - 14.5 08/28/[address] [facility] HEMATOLOGY Platelet 233 133 - 450 08/28/2018 [facility] HEMATOLOGY MCHC 33.2 32.0 - 36.0 08/28/2018 [facility] HEMATOLOGY MCV 87.4 80.0 - 98.0 08/28/2018 [facility] MCH 29.0 27.0 - 31.0 08/28/2018 [facility] Hct 41.5 36.0 - 48.0 08/28/[address] [facility] HEMATOLOGY WBC 7.7 3.7 - 10.4 08/28/2018 [facility] HEMATOLOGY RBC 4.74 4.20 - 5.40 08/28/2018 [facility] HEMATOLOGY Hgb 13.8 12.0 - 16.0 08/28/2018 [facility] HEMATOLOGY PT 12.9 12.0 - 14.7 08/28/2018 [facility] HEMATOLOGY INR 0.99 0.85 - 1.17 08/28/2018 [facility] CHEM PANEL Magnesium Lvl 2.1 1.8 - 2.4 08/27/2018 [facility] ELECTROLYTES Chloride Lvl 105 95 - 109 08/27/[address] [facility] ELECTROLYTES Potassium Lvl 4.1 3.5 - 5.1 08/27/2018 [facility] ELECTROLYTES Sodium Lvl 141 135 - 145 08/27/2018 [facility] ELECTROLYTES BUN 12 7 - 22 08/27/2018 [facility] ELECTROLYTES Glucose Lvl 90 70 - 99 08/27/2018 [facility] ELECTROLYTES Creatinine Lvl 0.6 2 0.50 - 1.40 08/27/[address] [facility] ELECTROLYTES Calcium Lvl 8.4 8.5 - 10.5 08/27/[address] [facility] ELECTROLYTES CO2 28 24 - 32 08/27/2018 [facility] ELECTROLYTES eGFR 119 08/27/2018 Result Comment: [...] should be multiplied by the estimated BMI. [facility] ELECTROLYTES AGAP 12.1 10.0 - 20.0 08/27/2018 [facility] HEMATOLOGY WBC 7.7 3.7 - 10.4 08/27/[address] [facility] HEMATOLOGY Hgb 13.2 12.0 - 16.0 08/27/2018 [facility] RBC 4.56 4.20 - 5.40 08/27/[address] [facility] HEMATOLOGY Hct 39.0 36.0 - 48.0 08/27/[address] [facility] HEMATOLOGY RDW 13.4 11.5 - 14.5 08/27/2018 [facility] MCHC 33.9 32.0 - 36.0 08/27/2018 [facility] MCH 28.9 27.0 - 31.0 08/27/2018 [facility] Platelet 254 133 - 450 08/27/2018 [facility] MCV 85.4 80.0 - 98.0 08/27/2018 [facility] MPV 8.4 7.4 - 10.4 08/27/2018 [facility] Monocytes # 0.9 0.0 - 0.8 08/27/[address] [facility] HEMATOLOGY Eosinophils # 0.5 0.0 - 0.5 08/27/2018 [facility] Basophils # 0.1 0.0 - 0.2 08/27/2018 [facility] Monocytes 11.1 2.0 - 12.0 08/27/2018 [facility] Lymphocytes 24.6 20.0 - 40.0 08/27/2018 [facility] Segs 56.9 45.0 - 75.0 08/27/[address] [facility] HEMATOLOGY Basophils 1.1 0.0 - 1.0 08/27/[address] [facility] HEMATOLOGY Eosinophils 6.3 0.0 - 4.0 08/27/2018 [facility] HEMATOLOGY Neutrophils # 4.4 1.5 - 8.1 08/27/[address] [facility] HEMATOLOGY Lymphocytes # 1.9 1.0 - 5.5 08/27/[address] [facility] TOXICOLOGY Vanco Tr TND 0000 08/27/2018 [facility] TOXICOLOGY Vanco Tr 13.1 08/27/2018 [facility] CHEM PANEL Magnesium Lvl 1.9 1.8 - 2.4 08/26/2018 [facility] CHEM PANEL eGFR 123 08/26/2018 Result [...] should be multiplied by the estimated BMI. [place] CHEM PANEL Chloride Lvl 106 95 - 109 08/26/2018 [place] CHEM PANEL CO2 27 24 - 32 08/26/[address] [facility] CHEM PANEL BUN 12 7 - 22 [facility]/26[facility] Calcium Lvl 8.0 8.5 - 10.5 08/26/2018 [facility] Potassium Lvl 4.0 3.5 - 5.1 08/26/2018 [facility] Sodium Lvl 140 135 - 145 08/26/[address] [facility] CHEM PANEL Creatinine Lvl 0.56 0.50 - 1.40 08/26/2018 [facility] Glucose Lvl 89 70 - 99 08/26/[address] [facility] CHEM PANEL AGAP 11.0 10.0 - 20.0 08/26/2018 [facility] HEMATOLOGY Monocytes # 0.8 0.0 - 0.8 08/26/2018 [facility] HEMATOLOGY Eosinophils # 0.5 0.0 - 0.5 08/26/2018 [facility] HEMATOLOGY Basophils # 0.1 0.0 - 0.2 08/26/2018 [facility] HEMATOLOGY Eosinophils 5.7 0.0 - 4.0 08/26/2018 [facility] HEMATOLOGY Lymphocytes 23.6 20.0 - 40.0 08/26/2018 [facility] HEMATOLOGY Monocytes 9.6 2.0 - 12.0 08/26/2018 [facility] HEMATOLOGY Basophils 1.0 0.0 - 1.0 08/26/[address] [facility] HEMATOLOGY Neutrophils # 5.2 1.5 - 8.1 08/26/2018 [facility] Lymphocytes # 2.1 1.0 - 5.5 08/26/[address] [facility] HEMATOLOGY Segs 60.1 45.0 - 75.0 08/26/[address] [facility] HEMATOLOGY RDW 13.3 11.5 - 14.5 08/26/[address] [facility] HEMATOLOGY Platelet 228 133 - 450 08/26/2018 [facility] HEMATOLOGY Hct 38.0 36.0 - 48.0 08/26/2018 [facility] HEMATOLOGY RBC 4.40 4.20 - 5.40 08/26/[address] [facility] HEMATOLOGY WBC 8.7 3.7 - 10.4 08/26/[address] [facility] HEMATOLOGY Hgb 12.9 12.0 - 16.0 08/26/2018 [facility] MCH 29.2 27.0 - 31.0 08/26/[address] [facility] HEMATOLOGY MCV 86.2 80.0 - 98.0 08/26/[address] [facility] HEMATOLOGY MCHC 33.9 32.0 - 36.0 08/26/2018 [facility] HEMATOLOGY MPV 8.2 7.4 - 10.4 08/26/[address] [facility] TOXICOLOGY Vanco Tr TND 1330 08/25/2018 [facility] TOXICOLOGY Vanco Tr 15.8 08/25/2018 [facility] CHEM PANEL Phosphorus 3.7 2.5 - 4.5 08/25/2018 [facility] CHEM PANEL B/C Ratio 24 6 - 25 08/25/2018 [facility] CHEM PANEL A/G Ratio 0.8 0.7 - 1.6 08/25/2018 [facility] CHEM PANEL Globulin 3.6 2.7 - 4.2 08/25/2018 [facility] CHEM PANEL Bili Total 0.3 0.2 - 1.3 08/25/2018 [facility] CHEM PANEL Alk Phos 77 39 - 136 08/25/2018 [facility] CHEM PANEL AST 19 0 - 37 08/25/2018 [facility] CHEM PANEL ALT 23 0 - 65 08/25/2018 [facility] CHEM PANEL Albumin Lvl 2.8 3.5 - 5.0 08/25/2018 [facility] CHEM PANEL Total Protein 6.4 6.4 - 8.4 08/25/2018 [facility] CHEM PANEL Procalcitonin Lvl <0.05 0.00 - 0.10 08/24/[address] [facility] CHEM PANEL Lactic Acid Lvl 1.1 0.5 - 2.2 08/24/2018 [facility] IMMUNOLOGY HIV Ag/Ab 4th Gen Negat theron *NA* (08/24/18 5:22 PM) Negative 08/24/2018 [facility] CHEM PANEL Lactic Acid Lvl 2.2 0.5 - 2.2 08/24/2018 [facility] CHEM PANEL Total Protein 7.8 6.4 - 8.4 08/24/2018 [facility] CHEM PANEL Albumin Lvl 3.8 3.5 - 5.0 08/24/2018 [facility] CHEM PANEL Alk Phos 99 39 - 136 08/24/2018 [facility] CHEM PANEL Bili Total 0.3 0.2 - 1.3 08/24/2018 [facility] CHEM PANEL AST 18 0 - 37 08/24/[address] [facility] CHEM PANEL ALT 21 0 - 65 08/24/2018 [facility] CHEM PANEL Globulin 4.0 2.7 - 4.2 08/24/2018 [facility] CHEM PANEL A/G Ratio 1.0 0.7 - 1.6 08/24/[address] [facility] CHEM PANEL B/C Ratio 17 6 - 25 08/24/[address] [facility] ENDOCRINOLOGY S Preg Ne gative *NA* (08/24/18 4:15 AM) Negative 08/24/2018 [facility] HEMATOLOGY Plt Morph Concetta l (08/24/18 4:15 AM) 08/24/2018 [facility] HEMATOLOGY RBC Morph Concetta l (08/24/18 4:15 AM) 08/24/2018 [facility] HEMATOLOGY Large Plt Occasional 08/24/2018 [facility] SPECIAL CHEMISTRY Hgb A1C 5.3 <=5.6 % 08/24/2018 [facility] ELECTROLYTES AGAP 12.2 10.0 - 20.0 05/21/2018 [facility] ELECTROLYTES eGFR 111 05/21/2018 Result Comment: [...] should be multiplied by the estimated BMI. [facility] ELECTROLYTES Glucose Lvl 89 70 - 99 05/21/2018 [facility] ELECTROLYTES Potassium Lvl 4.2 3.5 - 5.1 05/21/2018 [facility] ELECTROLYTES Chloride Lvl 105 95 - 109 05/21/2018 [facility] ELECTROLYTES Creatinine Lvl 0.7 2 0.50 - 1.40 05/21/[address] [facility] ELECTROLYTES Sodium Lvl 142 135 - 145 05/21/2018 [facility] ELECTROLYTES BUN 9 7 - 22 05/21/2018 [facility] ELECTROLYTES CO2 29 24 - 32 05/21/[address] [facility] ELECTROLYTES Calcium Lvl 8.2 8.5 - 10.5 05/21/2018 [facility] HEMATOLOGY Eosinophils # 0.3 0.0 - 0.5 05/21/2018 [facility] HEMATOLOGY Monocytes # 0.8 0.0 - 0.8 05/21/2018 [facility] HEMATOLOGY Basophils # 0.1 0.0 - 0.2 05/21/2018 [facility] HEMATOLOGY Lymphocytes 32.9 20.0 - 40.0 05/21/2018 [facility] HEMATOLOGY Segs 50.8 45.0 - 75.0 05/21/[address] [facility] HEMATOLOGY Lymphocytes # 2.3 1.0 - 5.5 05/21/[address] [facility] HEMATOLOGY Neutrophils # 3.6 1.5 - 8.1 05/21/2018 [facility] HEMATOLOGY Basophils 0.8 0.0 - 1.0 05/21/2018 [facility] HEMATOLOGY Eosinophils 4.8 0.0 - 4.0 05/21/2018 [facility] HEMATOLOGY Monocytes 10.7 2.0 - 12.0 05/21/2018 [facility] Hct 35.3 36.0 - 48.0 05/21/2018 [facility] Platelet 267 133 - 450 05/21/2018 [facility] RDW 12.9 11.5 - 14.5 05/21/2018 [facility] MCV 85.6 80.0 - 98.0 05/21/2018 [facility] MCHC 34.4 32.0 - 36.0 05/21/2018 [facility] MCH 29.4 27.0 - 31.0 05/21/2018 [facility] MPV 8.4 7.4 - 10.4 05/21/2018 [facility] RBC 4.12 4.20 - 5.40 05/21/2018 [facility] WBC 7.1 3.7 - 10.4 05/21/[address] [facility] HEMATOLOGY Hgb 12.1 12.0 - 16.0 05/21/2018 [facility] TOXICOLOGY Vanco Tr 15.7 05/21/2018 [facility] TOXICOLOGY Vanco Tr TND 0300 05/21/2018 [facility] ELECTROLYTES AGAP 10.9 10.0 - 20.0 05/20/2018 [facility] ELECTROLYTES eGFR 122 05/20/2018 Result Comment: [...] should be multiplied by the estimated BMI. [facility] ELECTROLYTES CO2 26 24 - 32 05/20/2018 [facility] ELECTROLYTES Chloride Lvl 111 95 - 109 05/20/[address] [facility] ELECTROLYTES Sodium Lvl 144 135 - 145 05/20/[address] [facility] ELECTROLYTES Potassium Lvl 3.9 3.5 - 5.1 05/20/[address] [facility] ELECTROLYTES Calcium Lvl 8.0 8.5 - 10.5 05/20/[address] [facility] ELECTROLYTES Creatinine Lvl 0.5 9 0.50 - 1.40 05/20/[address] [facility] ELECTROLYTES Glucose Lvl 94 70 - 99 05/20/[address] [facility] ELECTROLYTES BUN 9 7 - 22 05/20/[address] [facility] HEMATOLOGY Segs 55.0 45.0 - 75.0 05/20/[address] [facility] HEMATOLOGY Lymphocytes 31.9 20.0 - 40.0 05/20/2018 [facility] HEMATOLOGY Eosinophils 2.3 0.0 - 4.0 05/20/[address] [facility] HEMATOLOGY Monocytes 9.9 2.0 - 12.0 05/20/[address] [facility] HEMATOLOGY Monocytes # 0.7 0.0 - 0.8 05/20/[address] [facility] HEMATOLOGY Lymphocytes # 2.4 1.0 - 5.5 05/20/2018 [facility] HEMATOLOGY Basophils # 0.1 0.0 - 0.2 05/20/2018 [facility] HEMATOLOGY Eosinophils # 0.2 0.0 - 0.5 05/20/2018 [facility] HEMATOLOGY Neutrophils # 4.1 1.5 - 8.1 05/20/2018 [facility] HEMATOLOGY Basophils 0.9 0.0 - 1.0 05/20/[address] [facility] HEMATOLOGY MCH 29.8 27.0 - 31.0 05/20/[address] [facility] HEMATOLOGY MCV 86.8 80.0 - 98.0 05/20/2018 [facility] HEMATOLOGY RBC 3.85 4.20 - 5.40 05/20/[address] [facility] HEMATOLOGY WBC 7.4 3.7 - 10.4 05/20/[address] [facility] HEMATOLOGY Hct 33.4 36.0 - 48.0 05/20/[address] [facility] HEMATOLOGY Hgb 11.5 12.0 - 16.0 05/20/[address] [facility] HEMATOLOGY RDW 12.9 11.5 - 14.5 05/20/[address] [facility] HEMATOLOGY MCHC 34.3 32.0 - 36.0 05/20/[address] [facility] HEMATOLOGY MPV 8.7 7.4 - 10.4 05/20/2018 [facility] Platelet 249 133 - 450 05/20/[address] [facility] ELECTROLYTES AGAP 14.4 10.0 - 20.0 05/19/2018 [facility] ELECTROLYTES eGFR 110 05/19/2018 Result Comment: [...] should be multiplied by the estimated BMI. [facility] ELECTROLYTES Calcium Lvl 8.2 8.5 - 10.5 05/19/2018 [facility] ELECTROLYTES Potassium Lvl 4.4 3.5 - 5.1 05/19/2018 [facility] ELECTROLYTES Chloride Lvl 109 95 - 109 05/19/2018 [facility] ELECTROLYTES CO2 25 24 - 32 05/19/2018 [facility] ELECTROLYTES Glucose Lvl 131 70 - 99 05/19/[address] [facility] ELECTROLYTES BUN 7 7 - 22 05/19/[address] [facility] ELECTROLYTES Sodium Lvl 144 135 - 145 05/19/[address] [facility] ELECTROLYTES Creatinine Lvl 0.7 3 0.50 - 1.40 05/19/2018 [facility] HEMATOLOGY Basophils 0.3 0.0 - 1.0 05/19/[address] [facility] HEMATOLOGY Eosinophils 0.1 0.0 - 4.0 05/19/2018 [facility] Segs 83.5 45.0 - 75.0 05/19/2018 [facility] Lymphocytes 9.1 20.0 - 40.0 05/19/2018 [facility] Monocytes 7.0 2.0 - 12.0 05/19/[address] [facility] HEMATOLOGY Neutrophils # 8.9 1.5 - 8.1 05/19/2018 [facility] Monocytes # 0.7 0.0 - 0.8 05/19/2018 [facility] Lymphocytes # 1.0 1.0 - 5.5 05/19/2018 [facility] MPV 8.4 7.4 - 10.4 05/19/2018 [facility] Platelet 239 133 - 450 05/19/[address] [facility] HEMATOLOGY RDW 12.8 11.5 - 14.5 05/19/2018 [facility] MCHC 33.2 32.0 - 36.0 05/19/2018 [facility] WBC 10.6 3.7 - 10.4 05/19/2018 [facility] MCV 88.3 80.0 - 98.0 05/19/2018 [facility] Hct 38.9 36.0 - 48.0 05/19/2018 [facility] RBC 4.41 4.20 - 5.40 05/19/2018 [facility] MCH 29.3 27.0 - 31.0 05/19/2018 [facility] Hgb 12.9 12.0 - 16.0 05/19/[address] [facility] TOXICOLOGY Vanco Tr TND 0200 05/19/2018 [facility] TOXICOLOGY Vanco Tr 6.6 05/19/2018 [facility] TOXICOLOGY Vanco Tr 27.1 05/18/2018 [facility] TOXICOLOGY Vanco Tr TND 13:30 05/18/2018 [facility] AMPICILLIN+SULBACTAM:SUSC:PT:ISOLATE:ORDQN:MONISHA Gram Stain Report Many Gram Positive Cocci In Clusters No WBC's Seen 05/18/2018 [facility] AMPICILLIN+SULBACTAM:SUSC:PT:ISOLATE:ORDQN:MONISHA Culture: Wound/Abscess w/Gram Stain Many Staphylococcus aureus 05/18/2018 [facility] AMPICILLIN+SULBACTAM:SUSC:PT:ISOLATE:ORDQN:MONISHA Staphylococcus aureus Staphylococcus aureus 05/18/2018 [facility] Culture: Anaerobic No Anaerobes Is olated 05/18/2018 [facility] CHEM PANEL Magnesium Lvl 1.9 1.8 - 2.4 05/17/2018 [facility] CHEM PANEL B/C Ratio 16 6 - 25 05/17/2018 [facility] CHEM PANEL Total Protein 7.0 6.4 - 8.4 05/17/2018 [facility] CHEM PANEL Globulin 4.0 2.7 - 4.2 05/17/2018 [facility] CHEM PANEL Albumin Lvl 3.0 3.5 - 5.0 05/17/2018 [facility] CHEM PANEL AST 11 0 - 37 05/17/2018 [facility] CHEM PANEL Bili Total 0.4 0.2 - 1.3 05/17/[address] [facility] CHEM PANEL Alk Phos 66 39 - 136 05/17/2018 [facility] CHEM PANEL ALT 19 0 - 65 05/17/2018 [facility] CHEM PANEL A/G Ratio 0.8 0.7 - 1.6 05/17/[address] [facility] HEMATOLOGY INR 1.14 0.85 - 1.17 05/17/[address] [facility] HEMATOLOGY PT 14.6 12.0 - 14.7 05/17/[address] [facility] HEMATOLOGY PTT 36.4 22.9 - 35.8 05/17/[address] [facility] HEMATOLOGY Basophils # 0.1 0.0 - 0.2 05/17/[address] [facility] HEMATOLOGY Eosinophils # 0.3 0.0 - 0.5 05/17/2018 [facility] CHEM PANEL Lactic Acid Lvl 1.3 0.5 - 2.2 05/17/2018 [facility] CHEM PANEL Globulin 4.1 2.7 - 4.2 05/17/2018 [facility] CHEM PANEL A/G Ratio 0.8 0.7 - 1.6 05/17/2018 [facility] CHEM PANEL B/C Ratio 13 6 - 25 05/17/2018 [facility] CHEM PANEL ALT 21 0 - 65 05/17/[address] [facility] CHEM PANEL AST 14 0 - 37 05/17/[address] [facility] CHEM PANEL Alk Phos 71 39 - 136 05/17/[address] [facility] CHEM PANEL Bili Total 0.2 0.2 - 1.3 05/17/[address] [facility] CHEM PANEL Albumin Lvl 3.2 3.5 - 5.0 05/17/[address] [facility] CHEM [facility] Total Protein 7.3 6.4 - 8.4 05/17/[address] [facility] ENDOCRINOLOGY S Preg Ne gative *NA* (05/17/18 12:24 AM) Negative 05/17/[address] [facility] CARDIAC ENZYMES Troponin-I <0.02 0.00 - 0.40 01/12/2018 [facility] CHEM PANEL A/G Ratio 1.0 0.7 - 1.6 01/12/2018 [facility] CHEM PANEL B/C Ratio 13 6 - 25 01/12/2018 [facility] CHEM PANEL Globulin 3.5 2.7 - 4.2 01/12/2018 [facility] CHEM PANEL AGAP 12.2 10.0 - 20.0 01/12/2018 [facility] CHEM PANEL eGFR 102 01/12/2018 Result Comment: [...] should be multiplied by the estimated BMI. [facility] CHEM PANEL Alk Phos 76 39 - 136 01/12/2018 [facility] CHEM PANEL AST 39 0 - 37 01/12/2018 [facility] CHEM PANEL ALT 38 0 - 65 01/12/2018 [facility] CHEM PANEL Bili Total 0.7 0.2 - 1.3 01/12/2018 [facility] CHEM PANEL Glucose Lvl 93 70 - 99 01/12/2018 [facility] CHEM PANEL Creatinine Lvl 0.78 0.50 - 1.40 01/12/2018 [facility] CHEM PANEL BUN 10 7 - 22 01/12/2018 [facility] CHEM PANEL Sodium Lvl 139 135 - 145 01/12/2018 [facility] CHEM PANEL Calcium Lvl 8.3 8.5 - 10.5 01/12/2018 [facility] CHEM PANEL Total Protein 7.0 6.4 - 8.4 01/12/2018 [facility] CHEM PANEL Albumin Lvl 3.5 3.5 - 5.0 01/12/2018 [facility] CHEM PANEL CO2 24 24 - 32 01/12/2018 [facility] CHEM PANEL Chloride Lvl 107 95 - 109 01/12/2018 [facility] CHEM PANEL Potassium Lvl 4.2 3.5 - 5.1 01/12/2018 [facility] ENDOCRINOLOGY S Preg Ne gative *NA* (01/12/18 4:58 PM) Negative 01/12/2018 [facility] HEMATOLOGY Lymphocytes # 2.4 1.0 - 5.5 01/12/2018 [facility] HEMATOLOGY Monocytes # 0.9 0.0 - 0.8 01/12/2018 [facility] HEMATOLOGY Segs-Bands # 6.6 1.5 - 8.1 01/12/2018 [facility] HEMATOLOGY Eosinophils 5.1 0.0 - 4.0 01/12/[address] [facility] Lymphocytes 22.9 20.0 - 40.0 01/12/2018 [facility] HEMATOLOGY Basophils 0.8 0.0 - 1.0 01/12/2018 [facility] HEMATOLOGY Monocytes 8.8 2.0 - 12.0 01/12/2018 [facility] HEMATOLOGY Segs 62.4 45.0 - 75.0 01/12/2018 [facility] HEMATOLOGY Eosinophils # 0.5 0.0 - 0.5 01/12/[address] [facility] Basophils # 0.1 0.0 - 0.2 01/12/2018 [facility] HEMATOLOGY MPV 9.0 7.4 - 10.4 01/12/2018 [facility] HEMATOLOGY RBC 4.80 4.20 - 5.40 01/12/2018 [facility] HEMATOLOGY WBC 10.6 3.7 - 10.4 01/12/2018 [facility] HEMATOLOGY Hgb 14.2 12.0 - 16.0 01/12/2018 [facility] HEMATOLOGY Platelet 227 133 - 450 01/12/2018 [facility] HEMATOLOGY RDW 12.7 11.5 - 14.5 01/12/[address] [facility] MCHC 33.4 32.0 - 36.0 01/12/2018 [facility] HEMATOLOGY MCV 88.3 80.0 - 98.0 01/12/2018 [facility] HEMATOLOGY Hct 42.4 36.0 - 48.0 01/12/2018 [facility] HEMATOLOGY MCH 29.5 27.0 - 31.0 01/12/2018 [facility] CHEM PANEL eGFR 108 12/31/2016 Result Comment: [...] should be multiplied by the estimated BMI. [facility] CHEM PANEL Glucose Lvl 86 70 - 99 12/31/2016 [facility] CHEM PANEL Sodium Lvl 139 135 - 145 12/31/2016 [facility] CHEM PANEL BUN 9 7 - 22 12/31/2016 [facility] CHEM PANEL Creatinine Lvl 0.74 0.50 - 1.40 12/31/2016 [facility] CHEM PANEL Total Protein 7.1 6.4 - 8.4 12/31/2016 [facility] CHEM PANEL CO2 25 24 - 32 12/31/2016 [facility] CHEM PANEL Calcium Lvl 8.7 8.5 - 10.5 12/31/2016 [facility] CHEM PANEL Potassium Lvl 3.8 3.5 - 5.1 12/31/2016 [facility] CHEM PANEL Chloride Lvl 106 95 - 109 12/31/2016 [facility] CHEM PANEL AST 13 0 - 37 12/31/2016 [facility] CHEM PANEL Alk Phos 83 39 - 136 12/31/2016 [facility] CHEM PANEL Albumin Lvl 3.5 3.5 - 5.0 12/31/2016 [facility] CHEM PANEL ALT 22 0 - 65 12/31/2016 [facility] CHEM PANEL Bili Total 0.4 0.2 - 1.3 12/31/2016 [facility] CHEM PANEL B/C Ratio 12 6 - 25 12/31/2016 [facility] CHEM PANEL Globulin 3.6 2.7 - 4.2 12/31/2016 [facility] CHEM PANEL A/G Ratio 1.0 0.7 - 1.6 12/31/2016 [facility] CHEM PANEL AGAP 11.8 10.0 - 20.0 12/31/2016 [facility] CHEM PANEL Lipase Lvl 135 73 - 393 12/31/2016 [facility] ENDOCRINOLOGY S Preg Ne gative *NA* (12/31/16 12:53 AM) Negative 12/31/2016 [facility] HEMATOLOGY Segs 53.9 45.0 - 75.0 12/31/2016 [facility] HEMATOLOGY Eosinophils 4.9 0.0 - 4.0 12/31/2016 [facility] HEMATOLOGY Basophils 1.2 0.0 - 1.0 12/31/2016 [facility] HEMATOLOGY Segs-Bands # 5.0 1.5 - 8.1 12/31/2016 [facility] HEMATOLOGY Lymphocytes 31.8 20.0 - 40.0 12/31/2016 [facility] HEMATOLOGY Monocytes 8.2 2.0 - 12.0 12/31/2016 [facility] HEMATOLOGY Basophils # 0.1 0.0 - 0.2 12/31/[address] [facility] Lymphocytes # 3.0 1.0 - 5.5 12/31/2016 [facility] HEMATOLOGY Monocytes # 0.8 0.0 - 0.8 12/31/2016 [facility] HEMATOLOGY Eosinophils # 0.5 0.0 - 0.5 12/31/[address] [facility] MPV 9.6 7.4 - 10.4 12/31/[address] [facility] MCHC 33.1 32.0 - 36.0 12/31/[address] [facility] RDW 12.4 11.5 - 14.5 12/31/2016 [facility] HEMATOLOGY Platelet 214 133 - 450 12/31/2016 [facility] HEMATOLOGY MCV 89.8 80.0 - 98.0 12/31/[address] [facility] MCH 29.7 27.0 - 31.0 12/31/2016 [facility] HEMATOLOGY Hct 45.3 36.0 - 48.0 12/31/2016 [facility] HEMATOLOGY WBC 9.3 3.7 - 10.4 12/31/[address] [facility] RBC 5.04 4.20 - 5.40 12/31/[address] [facility] Hgb 15.0 12.0 - 16.0 12/31/2016 [facility] URINE AND STOOL UA Mucus Many /LPF None Seen /LPF 12/31/2016 [facility] URINE AND STOOL UA Amorph Miriam Occasional /HPF None Seen /HPF 12/31/2016 [facility] URINE AND STOOL UA RBC 33 0 - 2 12/31/2016 [facility] URINE AND STOOL UA WBC 27 0 - 5 12/31/2016 [facility] URINE AND STOOL UA Bacteria Many /HPF None Seen /HPF 12/31/2016 [facility] URINE AND STOOL UA Sq Epi Many /LPF Few /LPF 12/31/2016 [facility] URINE AND STOOL UA Protein 100 mg/dL Negative mg/dL 12/31/2016 [facility] URINE AND STOOL UA Ketones Trace *ABN* (12/31/16 12:53 AM) Negative 12/31/2016 [facility] URINE AND STOOL UA Blood Large *ABN* (12/31/16 12:53 AM) Negative 12/31/2016 [facility] URINE AND STOOL UA Bili Moderate *ABN* (12/31/16 12:53 AM) Negative 12/31/2016 [facility] URINE AND STOOL UA Color Gina *ABN* (12/31/16 12:53 AM) Yellow 12/31/2016 [facility] URINE AND STOOL UA Nitrite Positive *ABN* (12/31/16 12:53 AM) Negative 12/31/2016 [facility] URINE AND STOOL UA Urobilinogen 2.0 0.1 - 1.0 12/31/2016 [facility] URINE AND STOOL UA Leuk Est Trace *ABN* (12/31/16 12:53 AM) Negative 12/31/2016 [facility] URINE AND STOOL UA Turbidity Cloudy *ABN* (12/31/16 12:53 AM) Clear 12/31/2016 [facility] URINE AND STOOL UA Spec Grav 1.025 <=1.030 12/31/2016 [facility] URINE AND STOOL UA pH 6.5 5.0 - 8.0 12/31/2016 [facility] URINE AND STOOL UA Glucose Negative (12/31/16 12:53 AM) Negative 12/31/2016 [facility] CHEM PANEL Lipase Lvl 156 73 - 393 12/25/2016 [facility] CHEM PANEL eGFR 96 12/25/2016 Result Comment: [...] Alk Phos 94 39 - 136 12/25/2016 [facility] CHEM PANEL Creatinine Lvl 0.82 0.50 - [...] PANEL Globulin 4.0 2.7 - 4.2 12/25/2016 [facility] HEMATOLOGY PTT 32.0 22.9 - 35.8 12/25/2016 [facility] HEMATOLOGY INR 1.10 0.85 - 1.17 12/25/2016 [facility] HEMATOLOGY PT 14.4 12.0 - 14.7 12/25/2016 [facility] HEMATOLOGY Hgb 15.1 12.0 - 16.0 12/25/2016 [facility] HEMATOLOGY Hct 45.6 36.0 - 48.0 12/25/2016 [facility] HEMATOLOGY MCV 89.9 80.0 - 98.0 12/25/2016 [facility] HEMATOLOGY MCH 29.8 27.0 - 31.0 12/25/2016 [facility] HEMATOLOGY WBC 10.7 3.7 - 10.4 12/25/2016 [facility] HEMATOLOGY RBC 5.08 4.20 - 5.40 12/25/2016 [facility] HEMATOLOGY MCHC 33.2 32.0 - 36.0 12/25/2016 [facility] HEMATOLOGY RDW 12.7 11.5 - 14.5 12/25/2016 [facility] HEMATOLOGY MPV 9.3 7.4 - 10.4 12/25/2016 [facility] HEMATOLOGY Platelet 232 133 - 450 12/25/2016 [facility] HEMATOLOGY Eosinophils 1.9 0.0 - 4.0 12/25/2016 [facility] HEMATOLOGY Basophils 0.7 0.0 - 1.0 12/25/2016 [facility] HEMATOLOGY Monocytes 6.7 2.0 - 12.0 12/25/2016 [facility] HEMATOLOGY Lymphocytes # 2.5 1.0 - 5.5 12/25/2016 [facility] HEMATOLOGY Monocytes # 0.7 0.0 - 0.8 12/25/2016 [facility] HEMATOLOGY Segs-Bands # 7.2 1.5 - 8.1 12/25/2016 [facility] HEMATOLOGY Eosinophils # 0.2 0.0 - 0.5 12/25/2016 [facility] HEMATOLOGY Basophils # 0.1 0.0 - 0.2 12/25/2016 [facility] HEMATOLOGY Segs 67.6 45.0 - 75.0 12/25/2016 [facility] HEMATOLOGY Lymphocytes 23.1 20.0 - 40.0 12/25/2016 [facility] CHEM PANEL Lipase Lvl 165 73 - 393 07/20/2016 [facility] CHEM PANEL A/G Ratio 1.0 0.7 - 1.6 07/20/2016 [facility] CHEM PANEL Globulin 3.9 2.7 - 4.2 07/20/2016 [facility] CHEM PANEL B/C Ratio 10 6 - 25 07/20/2016 [facility] CHEM PANEL AGAP 13.0 10.0 - 20.0 07/20/2016 [facility] CHEM PANEL AST 18 0 - 37 07/20/2016 [facility] CHEM PANEL ALT 24 0 - 65 07/20/2016 [facility] CHEM PANEL eGFR 117 07/20/2016 Result Comment: [...] should be multiplied by the estimated BMI. [facility] CHEM PANEL Albumin Lvl 3.9 3.5 - 5.0 07/20/2016 [facility] CHEM PANEL Total Protein 7.8 6.4 - 8.4 07/20/2016 [facility] CHEM PANEL Calcium Lvl 8.7 8.5 - 10.5 07/20/2016 [facility] CHEM PANEL Bili Total 0.3 0.2 - 1.3 07/20/2016 [facility] CHEM PANEL Alk Phos 79 39 - 136 07/20/2016 [facility] CHEM PANEL Creatinine Lvl 0.70 0.50 - 1.40 07/20/2016 [facility] CHEM PANEL BUN 7 7 - 22 07/20/2016 [facility] CHEM PANEL CO2 28 24 - 32 07/20/2016 [facility] CHEM PANEL Chloride Lvl 104 95 - 109 07/20/2016 [facility] CHEM PANEL Potassium Lvl 4.0 3.5 - 5.1 07/20/2016 [facility] CHEM PANEL Sodium Lvl 141 135 - 145 07/20/2016 [facility] CHEM PANEL Glucose Lvl 84 70 - 99 07/20/2016 [facility] HEMATOLOGY RDW 12.6 11.5 - 14.5 07/20/2016 [facility] HEMATOLOGY Platelet 238 133 - 450 07/20/2016 [facility] HEMATOLOGY Hgb 15.3 12.0 - 16.0 07/20/2016 [facility] HEMATOLOGY RBC 5.08 4.20 - 5.40 07/20/2016 [facility] HEMATOLOGY WBC 10.8 3.7 - 10.4 07/20/2016 [facility] HEMATOLOGY MPV 8.9 7.4 - 10.4 07/20/2016 [facility] HEMATOLOGY MCV 88.5 80.0 - 98.0 07/20/2016 [facility] HEMATOLOGY Hct 44.9 36.0 - 48.0 07/20/2016 [facility] HEMATOLOGY MCH 30.1 27.0 - 31.0 07/20/2016 [facility] HEMATOLOGY MCHC 34.0 32.0 - 36.0 07/20/2016 [facility] HEMATOLOGY Eosinophils # 0.6 0.0 - 0.5 07/20/2016 [facility] HEMATOLOGY Basophils # 0.1 0.0 - 0.2 07/20/2016 [facility] HEMATOLOGY Lymphocytes # 2.6 1.0 - 5.5 07/20/2016 [facility] HEMATOLOGY Monocytes # 0.5 0.0 - 0.8 07/20/2016 [facility] HEMATOLOGY Segs-Bands # 7.0 1.5 - 8.1 07/20/2016 [facility] HEMATOLOGY Eosinophils 5.6 0.0 - 4.0 07/20/2016 [facility] HEMATOLOGY Basophils 0.9 0.0 - 1.0 07/20/2016 [facility] HEMATOLOGY Monocytes 4.6 2.0 - 12.0 07/20/2016 [facility] HEMATOLOGY Segs 65.0 45.0 - 75.0 07/20/2016 [facility] HEMATOLOGY Lymphocytes 23.9 20.0 - 40.0 07/20/2016 [facility] URINE AND STOOL UA Urobilinogen <=1.0 mg/dL 0.1 - 1.0 07/20/2016 [facility] URINE AND STOOL UA Color Colorless 07/20/2016 [facility] URINE AND STOOL UA pH 8.0 5.0 - 8.0 07/20/2016 [facility] URINE AND STOOL UA Protein Negative mg/dL Negative mg/dL 07/20/2016 [facility] URINE AND STOOL UA Turbidity Clear (07/19/16 7:59 PM) Clear 07/20/2016 [facility] URINE AND STOOL UA Spec Grav 1.005 <=1.030 07/20/2016 [facility] URINE AND STOOL UA Nitrite Negative (07/19/16 7:59 PM) Negative 07/20/2016 [facility] URINE AND STOOL UA Glucose Negative mg/dL Negative mg/dL 07/20/2016 [facility] URINE AND STOOL UA Sq Epi Occasional /LPF Few /LPF 07/20/2016 [facility] URINE AND STOOL UA Blood Small *ABN* (07/19/16 7:59 PM) Negative 07/20/2016 [facility] URINE AND STOOL UA Leuk Est Negative (07/19/16 7:59 PM) Negative 07/20/2016 [facility] URINE AND STOOL UA Bili Negative *NA* (07/19/16 7:59 PM) Negative 07/20/2016 [facility] URINE AND STOOL UA Bacteria Occasional /HPF None Seen /HPF 07/20/2016 [facility] URINE AND STOOL UA Ketones Negative mg/dL Negative mg/dL 07/20/2016 [facility] URINE AND STOOL UA WBC <1 0 - 5 07/20/2016 [facility] URINE AND STOOL UA RBC 1 0 - 2 07/20/2016 [facility] URINE CHEM U Preg Negat theron (07/19/16 7:59 PM) Negative 07/20/2016 [facility] CHEM PANEL Creatinine Lvl 0.66 0.50 - 1.40 04/14/2016 [facility] CHEM PANEL Potassium Lvl 3.7 3.5 - 5.1 04/14/2016 [facility] CHEM PANEL Sodium Lvl 138 135 - 145 04/14/2016 [facility] CHEM PANEL Glucose Lvl 87 70 - 99 04/14/2016 [facility] CHEM PANEL BUN 13 7 - 22 04/14/2016 [facility] CHEM PANEL Chloride Lvl 107 95 - 109 04/14/2016 [facility] CHEM PANEL ALT 22 0 - 65 04/14/2016 [facility] CHEM PANEL Albumin Lvl 3.8 3.5 - 5.0 04/14/2016 [facility] CHEM PANEL CO2 26 24 - 32 04/14/2016 [facility] CHEM PANEL eGFR 119 04/14/2016 Result Comment: [...] should be multiplied by the estimated BMI. [facility] CHEM PANEL Bili Total 0.3 0.2 - 1.3 04/14/2016 [facility] CHEM PANEL Alk Phos 72 39 - 136 04/14/2016 [facility] CHEM PANEL AST 13 0 - 37 04/14/2016 [facility] CHEM PANEL Total Protein 7.4 6.4 - 8.4 04/14/2016 [facility] CHEM PANEL Calcium Lvl 8.3 8.5 - 10.5 04/14/2016 [facility] CHEM PANEL Globulin 3.6 2.7 - 4.2 04/14/2016 [facility] CHEM PANEL A/G Ratio 1.1 0.7 - 1.6 04/14/2016 [facility] CHEM PANEL B/C Ratio 20 6 - 25 04/14/2016 [facility] CHEM PANEL AGAP 8.7 10.0 - 20.0 04/14/2016 [facility] CHEM PANEL Lipase Lvl 166 73 - 393 04/14/2016 [facility] CHEM PANEL Amylase Lvl 45 25 - 115 04/14/[address] [facility] MCH 29.2 27.0 - 31.0 04/14/2016 [facility] HEMATOLOGY MCV 87.0 80.0 - 98.0 04/14/2016 [facility] HEMATOLOGY Hct 40.7 36.0 - 48.0 04/14/[address] [facility] Hgb 13.6 12.0 - 16.0 04/14/[address] [facility] RBC 4.67 4.20 - 5.40 04/14/2016 [facility] HEMATOLOGY MPV 8.6 7.4 - 10.4 04/14/[address] [facility] Platelet 207 133 - 450 04/14/[address] [facility] MCHC 33.6 32.0 - 36.0 04/14/[address] [facility] RDW 13.0 11.5 - 14.5 04/14/[address] [facility] WBC 11.2 3.7 - 10.4 04/14/[address] [facility] Monocytes # 0.9 0.0 - 0.8 04/14/[address] [facility] Lymphocytes # 3.3 1.0 - 5.5 04/14/2016 [facility] HEMATOLOGY Segs-Bands # 6.3 1.5 - 8.1 04/14/2016 [facility] HEMATOLOGY Basophils 0.8 0.0 - 1.0 04/14/2016 [facility] HEMATOLOGY Eosinophils 5.9 0.0 - 4.0 04/14/2016 [facility] HEMATOLOGY Monocytes 8.2 2.0 - 12.0 04/14/2016 [facility] HEMATOLOGY Lymphocytes 29.1 20.0 - 40.0 04/14/2016 [facility] HEMATOLOGY Segs 56.0 45.0 - 75.0 04/14/2016 [facility] HEMATOLOGY Basophils # 0.1 0.0 - 0.2 04/14/2016 [facility] HEMATOLOGY Eosinophils # 0.7 0.0 - 0.5 04/14/2016 [facility] URINE AND STOOL UA Blood Large *ABN* (04/14/16 1:13 AM) Negative 04/14/2016 [facility] URINE AND STOOL UA Bili Negative *NA* (04/14/16 1:13 AM) Negative 04/14/2016 [facility] URINE AND STOOL UA pH 5.0 5.0 - 8.0 04/14/2016 [facility] URINE AND STOOL UA Spec Grav 1.020 <=1.030 04/14/2016 [facility] URINE AND STOOL UA Turbidity Slight *ABN* (04/14/16 1:13 AM) Clear 04/14/2016 [facility] URINE AND STOOL UA Protein Negative mg/dL Negative mg/dL 04/14/2016 [facility] URINE AND STOOL UA Nitrite Negative (04/14/16 1:13 AM) Negative 04/14/2016 [facility] URINE AND STOOL UA WBC 7 0 - 5 04/14/2016 [facility] URINE AND STOOL UA Sq Epi Many /LPF Few /LPF 04/14/2016 [facility] URINE AND STOOL UA RBC 3 0 - 2 04/14/2016 [facility] URINE AND STOOL UA Leuk Est Trace *ABN* (04/14/16 1:13 AM) Negative 04/14/2016 [facility] URINE AND STOOL UA Ketones Negative mg/dL Negative mg/dL 04/14/2016 [facility] URINE AND STOOL UA Glucose Negative mg/dL Negative mg/dL 04/14/2016 [facility] URINE AND STOOL UA Bacteria Many /HPF None Seen /HPF 04/14/2016 [facility] URINE AND STOOL UA Mucus Few /LPF None Seen /LPF 04/14/2016 [facility] URINE AND STOOL UA Urobilinogen <=1.0 mg/dL 0.1 - 1.0 04/14/2016 [facility] URINE AND STOOL UA Color Yellow *NA* (04/14/16 1:13 AM) Yellow 04/14/2016 [facility] URINE CHEM U Preg Negat theron (04/14/16 1:13 AM) Negative 04/14/2016 [facility] URINE AND STOOL UA Color Gina 02/24/2016 [facility] URINE AND STOOL UA WBC 7 0 - 5 02/24/2016 [facility] URINE AND STOOL UA Bili Negative *NA* (02/24/16 12:51 AM) Negative 02/24/2016 [facility] URINE AND STOOL UA Leuk Est Trace *ABN* (02/24/16 12:51 AM) Negative 02/24/2016 [facility] URINE AND STOOL UA Sq Epi Moderate /LPF Few /LPF 02/24/2016 [facility] URINE AND STOOL UA Urobilinogen 2.0 0.1 - 1.0 02/24/2016 [facility] URINE AND STOOL UA Nitrite Negative (02/24/16 12:51 AM) Negative 02/24/2016 [facility] URINE AND STOOL UA Blood Small *ABN* (02/24/16 12:51 AM) Negative 02/24/2016 [facility] URINE AND STOOL UA Mucus Many /LPF None Seen /LPF 02/24/2016 [facility] URINE AND STOOL UA RBC 8 0 - 2 02/24/2016 [facility] URINE AND STOOL UA Bacteria Occasional /HPF None Seen /HPF 02/24/2016 [facility] URINE AND STOOL UA Turbidity Clear (02/24/16 12:51 AM) Clear 02/24/2016 [facility] URINE AND STOOL UA Spec Grav 1.027 <=1.030 02/24/2016 [facility] URINE AND STOOL UA Glucose Negative mg/dL Negative mg/dL 02/24/2016 [facility] [address] URINE AND STOOL UA Ketones Trace mg/dL Negative mg/dL 02/24/[address] [facility] [address] URINE AND STOOL UA pH 7.0 5.0 - 8.0 02/24/2016 [facility] URINE AND STOOL UA Protein 30 mg/dL Negative mg/dL 02/24/2016 [facility] URINE CHEM U Preg Negat theron (02/24/16 12:51 AM) Negative 02/24/2016 [facility] CHEM PANEL Alk Phos 81 39 - [...] A/G Ratio 0.9 0.7 - 1.6 02/24/2016 [facility] CHEM PANEL Globulin 4.2 2.0 - 4.0 02/24/2016 [facility] CHEM PANEL Albumin Lvl 3.8 3.5 - 5.0 02/24/2016 [facility] CHEM PANEL Lipase Lvl 127 73 - 393 02/24/2016 [facility] CHEM PANEL Amylase Lvl 45 25 - 115 02/24/2016 [facility] HEMATOLOGY Hct 44.3 36.0 - 48.0 02/24/2016 [facility] HEMATOLOGY Hgb 14.4 12.0 - 16.0 02/24/2016 [facility] HEMATOLOGY RBC 4.96 4.20 - 5.40 02/24/2016 [facility] HEMATOLOGY WBC 12.3 3.7 - 10.4 02/24/2016 [facility] HEMATOLOGY MCV 89.3 80.0 - 98.0 02/24/2016 [facility] HEMATOLOGY Platelet 209 133 - 450 02/24/2016 [facility] HEMATOLOGY RDW 13.1 11.5 - 14.5 02/24/2016 [facility] HEMATOLOGY MCHC 32.4 32.0 - 36.0 02/24/[address] [facility] MCH 29.0 27.0 - 31.0 02/24/2016 [facility] HEMATOLOGY MPV 8.7 7.4 - 10.4 02/24/2016 [facility] HEMATOLOGY Segs 62.1 45.0 - 75.0 02/24/2016 [facility] HEMATOLOGY Basophils 0.8 0.0 - 1.0 02/24/2016 [facility] HEMATOLOGY Eosinophils 4.6 0.0 - 4.0 02/24/2016 [facility] HEMATOLOGY Monocytes 7.6 2.0 - 12.0 02/24/2016 [facility] HEMATOLOGY Lymphocytes 24.9 20.0 - 40.0 02/24/2016 [facility] HEMATOLOGY Segs-Bands # 7.7 1.5 - 8.1 02/24/2016 [facility] HEMATOLOGY Eosinophils # 0.6 0.0 - 0.5 02/24/2016 [facility] HEMATOLOGY Lymphocytes # 3.1 1.0 - 5.5 02/24/2016 [facility] HEMATOLOGY Basophils # 0.1 0.0 - 0.2 02/24/2016 [facility] HEMATOLOGY Monocytes # 0.9 0.0 - 0.8 02/24/2016 [facility] CHEM PANEL Lipase Lvl 126 73 - 393 01/17/2016 [facility] [place] [facility] CHEM PANEL Globulin 4.1 2.0 - 4.0 01/17/2016 [place] CHEM PANEL A/G Ratio 0.9 0.7 - 1.6 01/17/2016 [place] CHEM PANEL AGAP 11.0 10.0 - 20.0 01/17/2016 [place] CHEM PANEL B/C Ratio 11 6 - 25 01/17/2016 [place] CHEM PANEL eGFR 119 01/17/2016 Result Comment: [...] should be multiplied by the estimated BMI. [place] CHEM PANEL Total Protein 7.9 6.4 - 8.4 [facility] ASPARTATE TRANSAMINASE 16 0 - 37 01/17/2016 [place] CHEM PANEL Bili Total 0.4 0.2 - 1.3 01/17/2016 [place] CHEM PANEL Potassium Lvl 4.0 3.5 - 5.1 01/17/2016 [place] CHEM PANEL CO2 27 24 - 32 01/17/2016 [place] CHEM PANEL Chloride Lvl 105 95 - 109 01/17/2016 [place] CHEM PANEL Calcium Lvl 8.5 8.5 - 10.5 01/17/2016 [place] CHEM PANEL Sodium Lvl 139 135 - 145 01/17/2016 [place] CHEM PANEL Glucose Lvl 84 70 - 99 01/17/2016 [place] CHEM PANEL Alk Phos 88 39 - 136 01/17/2016 [place] CHEM PANEL Creatinine Lvl 0.66 0.50 - 1.40 01/17/2016 [place] CHEM PANEL BUN 7 7 - 22 01/17/[address] [facility] CHEM PANEL Albumin Lvl 3.8 3.5 - 5.0 01/17/[address] [facility] CHEM PANEL ALANINE AMINOTRANSFERASE 27 0 - 65 01/17/[address] [facility] HEMATOLOGY Segs-Bands # 6.4 1.5 - 8.1 01/17/[address] [facility] HEMATOLOGY Lymphocytes # 2.4 1.0 - 5.5 01/17/[address] [facility] HEMATOLOGY Monocytes # 0.6 0.0 - 0.8 01/17/[address] [facility] HEMATOLOGY Eosinophils # 0.4 0.0 - 0.5 01/17/[address] [facility] HEMATOLOGY Basophils # 0.1 0.0 - 0.2 01/17/[address] [facility] HEMATOLOGY Monocytes 6.3 2.0 - 12.0 01/17/[address] [facility] HEMATOLOGY Eosinophils 4.5 0.0 - 4.0 01/17/[address] [facility] HEMATOLOGY Basophils 0.9 0.0 - 1.0 01/17/[address] [facility] HEMATOLOGY Lymphocytes 24.2 20.0 - 40.0 01/17/[address] [facility] HEMATOLOGY Segs 64.1 45.0 - 75.0 01/17/[address] [facility] HEMATOLOGY MPV 8.4 7.4 - 10.4 01/17/2016 [facility] MCV 89.2 80.0 - 98.0 01/17/[address] [facility] HEMATOLOGY MCH 29.7 27.0 - 31.0 01/17/2016 [facility] MCHC 33.3 32.0 - 36.0 01/17/[address] [facility] HEMATOLOGY RDW 13.2 11.5 - 14.5 01/17/[address] [facility] HEMATOLOGY Hgb 14.9 12.0 - 16.0 01/17/[address] [facility] HEMATOLOGY Hct 44.7 36.0 - 48.0 01/17/[address] [facility] HEMATOLOGY RBC X 10x6 5.01 4.20 - 5.40 01/17/[address] [facility] HEMATOLOGY Platelet 236 133 - 450 01/17/[address] [facility] HEMATOLOGY WBC X 10x3 10.0 3.7 - 10.4 01/17/[address] [facility] URINE AND STOOL UA WBC 3-5 /HPF None Seen /HPF 01/17/2016 [facility] URINE AND STOOL UA Nitrite Negative (01/16/16 9:15 PM) Negative 01/17/[address] [facility] URINE AND STOOL UA Sq Epi Occasional /LPF Few /LPF 01/17/[address] [facility] URINE AND STOOL UA Leuk Est Negative (01/16/16 9:15 PM) Negative 01/17/[address] [facility] URINE AND STOOL UA Spec Grav 1.015 <=1.030 01/17/[address] [facility] URINE AND STOOL UA pH 7.5 5.0 - 8.0 01/17/[address] [facility] URINE AND STOOL UA Protein Negative (01/16/16 9:15 PM) Negative [facility] Turbidity Clear (01/16/16 9:15 PM) Clear 01/17/[address] [facility] URINE AND STOOL UA Color Yellow *NA* (01/16/16 9:15 PM) Yellow 01/17/[address] [facility] URINE AND STOOL UA Urobilinogen 0.2 0.1 - 1.0 01/17/[address] [facility] URINE AND STOOL UA Glucose Negative (01/16/16 9:15 PM) Negative 01/17/[address] [facility] URINE AND STOOL UA Blood Large *ABN* (01/16/16 9:15 PM) Negative 01/17/[address] [facility] URINE AND STOOL UA Ketones Negative *NA* (01/16/16 9:15 PM) Negative 01/17/[address] [facility] URINE AND STOOL UA Bili Negative *NA* (01/16/16 9:15 PM) Negative 01/17/[address] [facility] URINE AND STOOL UA RBC 6-10 /HPF 0 - 2 01/17/[address] [facility] URINE AND STOOL UA Bacteria Occasional /HPF None Seen /HPF [facility] Preg Negat theron (01/16/16 9:15 PM) Negative 01/17/[address] [facility] URINE AND STOOL UA Urobilinogen <=1.0 mg/dL 0.1 - 1.0 10/13/2015 [facility] URINE AND STOOL UA Color Gina 10/13/2015 [facility] URINE AND STOOL UA Turbidity Slight *ABN* (10/13/15 3:42 AM) Clear 10/13/2015 [facility] URINE AND STOOL UA Spec Grav 1.026 <=1.030 10/13/2015 [facility] URINE AND STOOL UA pH 6.0 5.0 - 8.0 10/13/2015 [facility] URINE AND STOOL UA RBC 7 0 - 2 10/13/2015 [facility] URINE AND STOOL UA WBC 6 0 - 5 10/13/2015 [facility] URINE AND STOOL UA Sq Epi Few /LPF Few /LPF 10/13/2015 [facility] URINE AND STOOL UA Leuk Est Negative (10/13/15 3:42 AM) Negative 10/13/2015 [facility] URINE AND STOOL UA Nitrite Negative (10/13/15 3:42 AM) Negative 10/13/2015 [facility] URINE AND STOOL UA Mucus Moderate /LPF None Seen /LPF 10/13/2015 [facility] URINE AND STOOL UA Bacteria Occasional /HPF None Seen /HPF 10/13/2015 [facility] URINE AND STOOL UA Blood Large *ABN* (10/13/15 3:42 AM) Negative 10/13/2015 [facility] URINE AND STOOL UA Bili Negative *NA* (10/13/15 3:42 AM) Negative 10/13/2015 [facility] URINE AND STOOL UA Ketones Trace mg/dL Negative mg/dL 10/13/2015 [facility] URINE AND STOOL UA Glucose Negative mg/dL Negative mg/dL 10/13/2015 [facility] URINE AND STOOL UA Protein 100 mg/dL Negative mg/dL 10/13/2015 [facility] URINE CHEM U Preg Negat theron (10/13/15 3:42 AM) Negative 10/13/2015 [facility] CHEM PANEL Globulin 3.9 2.0 - 4.0 10/13/2015 [facility] CHEM PANEL A/G Ratio 1.0 0.7 - 1.6 10/13/2015 [facility] CHEM PANEL B/C Ratio 13 6 - 25 10/13/2015 [facility] CHEM PANEL AGAP 9.5 10.0 - 20.0 10/13/2015 [facility] CHEM PANEL eGFR 117 10/13/2015 Result Comment: [...] should be multiplied by the estimated BMI. [facility] CHEM PANEL Bili Total 0.7 0.2 - 1.3 10/13/2015 [facility] CHEM PANEL Alk Phos 79 39 - 136 10/13/2015 [facility] CHEM PANEL AST 23 0 - 37 10/13/2015 [facility] CHEM PANEL ALT 35 0 - 65 10/13/2015 [facility] CHEM PANEL Albumin Lvl 3.8 3.5 - 5.0 10/13/2015 [facility] CHEM PANEL Total Protein 7.7 6.4 - 8.4 10/13/2015 [facility] CHEM PANEL Calcium Lvl 8.8 8.5 - 10.5 10/13/2015 [facility] CHEM PANEL CO2 28 24 - 32 10/13/2015 [facility] CHEM PANEL Chloride Lvl 106 95 - 109 10/13/2015 [facility] CHEM PANEL Potassium Lvl 3.5 3.5 - 5.1 10/13/2015 [facility] CHEM PANEL Creatinine Lvl 0.70 0.50 - 1.40 10/13/2015 [facility] CHEM PANEL BUN 9 7 - 22 10/13/2015 [facility] CHEM PANEL Glucose Lvl 94 70 - 99 10/13/2015 [facility] CHEM PANEL Sodium Lvl 140 135 - 145 10/13/2015 [facility] CHEM PANEL Amylase Lvl 50 25 - 115 10/13/2015 [facility] CHEM PANEL Lipase Lvl 148 73 - 393 10/13/2015 [facility] HEMATOLOGY Platelet 201 133 - 450 10/13/2015 [facility] HEMATOLOGY MPV 9.7 7.4 - 10.4 10/13/2015 [facility] HEMATOLOGY MCHC 33.4 32.0 - 36.0 10/13/2015 [facility] HEMATOLOGY RDW 12.5 11.5 - 14.5 10/13/2015 [facility] HEMATOLOGY WBC 9.9 3.7 - 10.4 10/13/[address] [facility] RBC 5.04 4.20 - 5.40 10/13/[address] [facility] Hgb 15.1 12.0 - 16.0 10/13/2015 [facility] HEMATOLOGY MCH 29.9 27.0 - 31.0 10/13/2015 [facility] HEMATOLOGY Hct 45.2 36.0 - 48.0 10/13/2015 [facility] HEMATOLOGY MCV 89.7 80.0 - 98.0 10/13/2015 [facility] HEMATOLOGY Eosinophils # 0.6 0.0 - 0.5 10/13/2015 [facility] HEMATOLOGY Basophils # 0.1 0.0 - 0.2 10/13/2015 [facility] HEMATOLOGY Lymphocytes # 3.2 1.0 - 5.5 10/13/2015 [facility] HEMATOLOGY Monocytes # 0.8 0.0 - 0.8 10/13/2015 [facility] HEMATOLOGY Segs-Bands # 5.1 1.5 - 8.1 10/13/2015 [facility] HEMATOLOGY Basophils 1.0 0.0 - 1.0 10/13/2015 [facility] HEMATOLOGY Monocytes 8.5 2.0 - 12.0 10/13/2015 [facility] HEMATOLOGY Eosinophils 6.2 0.0 - 4.0 10/13/2015 [facility] HEMATOLOGY Segs 51.7 45.0 - 75.0 10/13/2015 [facility] HEMATOLOGY Lymphocytes 32.6 20.0 - 40.0 10/13/2015 [facility] ELECTROLYTES Potassium Lvl 3.6 3.5 - 5.1 07/04/2015 [facility] CHEM PANEL eGFR 110 07/04/2015 Result Comment: [...] should be multiplied by the estimated BMI. [facility] CHEM PANEL AST 57 0 - 37 07/04/2015 [facility] CHEM PANEL ALT 34 0 - 65 [...] PANEL BUN 11 7 - 22 07/04/2015 [facility] CHEM PANEL Creatinine Lvl 0.74 0.50 - 1.40 07/04/2015 [facility] CHEM PANEL Glucose Lvl 85 70 - 99 07/04/2015 [facility] CHEM PANEL Total Protein 7.7 6.4 - 8.4 07/04/2015 [facility] CHEM PANEL Albumin Lvl 3.5 3.5 - 5.0 07/04/2015 [facility] CHEM PANEL B/C Ratio 15 6 - 25 07/04/2015 [facility] CHEM PANEL Calcium Lvl 8.7 8.5 - 10.5 07/04/2015 [facility] CHEM PANEL CO2 24 24 - 32 07/04/2015 [facility] CHEM PANEL Lipase Lvl 138 73 - 393 07/04/2015 [facility] HEMATOLOGY Basophils # 0.1 0.0 - 0.2 07/04/2015 [facility] HEMATOLOGY Eosinophils # 0.7 0.0 - 0.5 07/04/2015 [facility] HEMATOLOGY Lymphocytes # 2.7 1.0 - 5.5 07/04/2015 [facility] HEMATOLOGY Segs-Bands # 7.5 1.5 - 8.1 07/04/2015 [facility] HEMATOLOGY Basophils 1.0 0.0 - 1.0 07/04/2015 [facility] HEMATOLOGY Eosinophils 5.5 0.0 - 4.0 07/04/2015 [facility] HEMATOLOGY Monocytes # 1.0 0.0 - 0.8 07/04/2015 [facility] HEMATOLOGY Monocytes 8.3 2.0 - 12.0 07/04/2015 [facility] HEMATOLOGY Lymphocytes 22.4 20.0 - 40.0 07/04/2015 [facility] HEMATOLOGY Segs 62.8 45.0 - 75.0 07/04/2015 [facility] HEMATOLOGY MCH 29.5 27.0 - 31.0 07/04/2015 [facility] HEMATOLOGY MPV 9.4 7.4 - 10.4 07/04/2015 [facility] HEMATOLOGY Platelet 191 133 - 450 07/04/2015 [facility] HEMATOLOGY RDW 12.7 11.5 - 14.5 07/04/[address] [facility] MCHC 32.5 32.0 - 36.0 07/04/2015 [facility] HEMATOLOGY MCV 90.7 80.0 - 98.0 07/04/2015 [facility] HEMATOLOGY Hct 43.1 36.0 - 48.0 07/04/2015 [facility] HEMATOLOGY Hgb 14.0 12.0 - 16.0 07/04/[address] [facility] RBC 4.76 4.20 - 5.40 07/04/2015 [facility] HEMATOLOGY WBC 12.0 3.7 - 10.4 07/04/2015 [facility] URINE AND STOOL UA WBC 1 0 - 5 07/04/2015 [facility] URINE AND STOOL UA Leuk Est Negative (07/04/15 1:16 AM) Negative 07/04/2015 [facility] URINE AND STOOL UA Sq Epi Few /LPF Few /LPF 07/04/2015 [facility] URINE AND STOOL UA Blood Small *ABN* (07/04/15 1:16 AM) Negative 07/04/2015 [facility] URINE AND STOOL UA Nitrite Negative (07/04/15 1:16 AM) Negative 07/04/2015 [facility] URINE AND STOOL UA [place] Yeast Occasional /HPF None Seen /HPF 07/04/2015 [facility] [address] URINE AND STOOL UA Urobilinogen <=1.0 mg/dL 0.1 - 1.0 07/04/2015 [facility] URINE AND STOOL UA RBC 4 0 - 2 07/04/2015 [facility] URINE AND STOOL UA Mucus Few /LPF None Seen /LPF 07/04/2015 [facility] URINE AND STOOL UA Glucose Negative mg/dL Negative mg/dL 07/04/2015 [facility] URINE AND STOOL UA Protein Negative mg/dL Negative mg/dL 07/04/2015 [facility] [address] URINE AND STOOL UA pH 7.0 5.0 - 8.0 07/04/2015 [facility] URINE AND STOOL UA Bili Negative *NA* (07/04/15 1:16 AM) Negative 07/04/2015 [facility] URINE AND STOOL UA Ketones Trace mg/dL Negative mg/dL 07/04/2015 [facility] URINE AND STOOL UA Color Yellow [...] Urobilinogen <=1.0 mg/dL 0.1 - 1.0 05/17/2015 [facility] URINE AND STOOL UA Bili Negative *NA* (05/17/15 2:36 AM) Negative 05/17/2015 [facility] URINE AND STOOL UA Glucose Negative mg/dL Negative mg/dL 05/17/2015 [facility] URINE AND STOOL UA Ketones Negative mg/dL Negative mg/dL 05/17/2015 [facility] URINE AND STOOL UA Protein Negative mg/dL Negative mg/dL 05/17/2015 [facility] URINE AND STOOL UA Color Yellow *NA* (05/17/15 2:36 AM) Yellow 05/17/2015 [facility] URINE AND STOOL UA Turbidity Clear (05/17/15 2:36 AM) Clear 05/17/2015 [facility] URINE AND STOOL UA Spec Grav 1.016 <=1.030 05/17/2015 [facility] URINE AND STOOL UA pH 6.0 5.0 - 8.0 05/17/2015 [facility] URINE CHEM U Preg Negat theron (05/17/15 2:36 AM) Negative 05/17/2015 [facility] MOLECULAR DIAGNOSTIC N gonorrhea by Amp Det (APTIMA) Negative *NA* (05/15/15 7:19 AM) Negative 05/15/2015 [facility] MOLECULAR DIAGNOSTIC Source APTIMA Endocervix *NA* (05/15/15 7:19 AM) 05/15/2015 [facility] MOLECULAR DIAGNOSTIC Source APTIMA Endocervix *NA* (05/15/15 7:19 AM) 05/15/2015 [facility] MOLECULAR DIAGNOSTIC C trachomatis b y Amp Det (APTIMA) Negative *NA* (05/15/15 7:19 AM) Negative 05/15/2015 [facility] CHEM PANEL Globulin 3.5 2.0 - 4.0 05/15/2015 [facility] CHEM PANEL A/G Ratio 1.1 0.7 - 1.6 05/15/2015 [facility] CHEM PANEL B/C Ratio 9 6 - 25 05/15/2015 [facility] CHEM PANEL AGAP 11.4 10.0 - 20.0 05/15/2015 [facility] CHEM PANEL BUN 7 7 - 22 05/15/2015 [facility] CHEM PANEL Glucose Lvl 87 70 - 99 05/15/2015 [facility] CHEM PANEL Total Protein 7.3 6.4 - 8.4 05/15/2015 [facility] CHEM PANEL ALT 32 0 - 65 05/15/2015 [facility] CHEM PANEL CO2 24 24 - 32 05/15/2015 [facility] CHEM PANEL Albumin Lvl 3.8 3.5 - 5.0 05/15/2015 [facility] CHEM PANEL Alk Phos 87 39 - 136 05/15/2015 [facility] CHEM PANEL AST 16 0 - 37 05/15/2015 [facility] CHEM PANEL Bili Total 0.7 0.2 - 1.3 05/15/2015 [facility] CHEM PANEL eGFR 100 05/15/2015 Result Comment: [...] should be multiplied by the estimated BMI. [facility] CHEM PANEL Chloride Lvl 107 95 - 109 05/15/2015 [facility] CHEM PANEL Potassium Lvl 3.4 3.5 - 5.1 05/15/2015 [facility] CHEM PANEL Calcium Lvl 8.6 8.5 - 10.5 05/15/2015 [facility] CHEM PANEL Sodium Lvl 139 135 - 145 05/15/2015 [facility] CHEM PANEL Creatinine Lvl 0.8 0.5 - 1.4 05/15/[address] [facility] Platelet 212 133 - 450 05/15/[address] [facility] RDW 13.1 11.5 - 14.5 05/15/[address] [facility] MPV 8.9 7.4 - 10.4 05/15/[address] [facility] WBC 13.5 3.7 - 10.4 05/15/[address] [facility] Hgb 14.1 12.0 - 16.0 05/15/[address] [facility] RBC 4.85 4.20 - 5.40 05/15/[address] [facility] Hct 44.3 36.0 - 48.0 05/15/[address] [facility] MCV 91.4 80.0 - 98.0 05/15/[address] [facility] MCH 29.1 27.0 - 31.0 05/15/[address] [facility] MCHC 31.9 32.0 - 36.0 05/15/[address] [facility] Segs 61.6 45.0 - 75.0 05/15/[address] [facility] Lymphocytes # 3.3 1.0 - 5.5 05/15/[address] [facility] Eosinophils # 0.7 0.0 - 0.5 05/15/[address] [facility] Monocytes # 1.0 0.0 - 0.8 05/15/[address] [facility] Basophils # 0.2 0.0 - 0.2 05/15/2015 [facility] HEMATOLOGY Monocytes 7.1 2.0 - 12.0 05/15/2015 [facility] HEMATOLOGY Lymphocytes 24.6 20.0 - 40.0 05/15/2015 [facility] HEMATOLOGY Segs-Bands # 8.3 1.5 - 8.1 05/15/2015 [facility] HEMATOLOGY Basophils 1.2 0.0 - 1.0 05/15/2015 [facility] HEMATOLOGY Eosinophils 5.5 0.0 - 4.0 05/15/2015 [facility] URINE AND STOOL UA Mucus Moderate /LPF None Seen /LPF 05/15/2015 [facility] st URINE AND STOOL UA WBC 1 0 - 5 05/15/2015 [facility] URINE AND STOOL UA RBC 2 0 - 2 05/15/2015 [facility] URINE AND STOOL UA Ketones Negative mg/dL Negative mg/dL 05/15/2015 [facility] URINE AND STOOL UA Blood Moderate *ABN* (05/15/15 2:57 AM) Negative 05/15/2015 [facility] URINE AND STOOL UA Bili Negative *NA* (05/15/15 2:57 AM) Negative 05/15/2015 [facility] URINE AND STOOL UA Protein Negative mg/dL Negative mg/dL 05/15/2015 [facility] URINE AND STOOL UA pH 6.0 5.0 - 8.0 05/15/2015 [facility] URINE AND STOOL UA Glucose Negative mg/dL Negative mg/dL 05/15/2015 [facility] URINE AND STOOL UA Sq Epi Few /LPF Few /LPF 05/15/2015 [facility] URINE AND STOOL UA Leuk Est Negative (05/15/15 2:57 AM) Negative 05/15/2015 [facility] URINE AND STOOL UA Urobilinogen 4.0 0.1 - 1.0 05/15/2015 [facility] URINE AND STOOL UA Nitrite Negative (05/15/15 2:57 AM) Negative 05/15/2015 [facility] URINE AND STOOL UA Spec Grav 1.024 <=1.030 05/15/2015 [facility] URINE AND STOOL UA Turbidity Clear (05/15/15 2:57 AM) Clear 05/15/2015 [facility] URINE AND STOOL UA Color Yellow *NA* (05/15/15 2:57 AM) Yellow 05/15/2015 [facility] URINE CHEM U Preg Negat theron (05/15/15 2:57 AM) Negative 05/15/2015 [facility] URINE AND STOOL UA Bacteria Moderate /HPF None Seen /HPF 02/14/2015 [facility] URINE AND STOOL UA Mucus Few /LPF None Seen /LPF 02/14/2015 [facility] URINE AND STOOL UA Sq Epi Moderate /LPF Few /LPF 02/14/2015 [facility] URINE AND STOOL UA WBC 5-15 02/14/2015 [facility] URINE AND STOOL UA RBC 1-4 02/14/2015 [facility] URINE AND STOOL UA Leuk Est Negative (02/14/15 3:34 AM) Negative 02/14/2015 [facility] URINE AND STOOL UA Blood Large *ABN* (02/14/15 3:34 AM) Negative 02/14/2015 [facility] URINE AND STOOL UA Bili Small *ABN* (02/14/15 3:34 AM) Negative 02/14/2015 [facility] URINE AND STOOL UA Protein Trace *ABN* (02/14/15 3:34 AM) Negative 02/14/2015 [facility] URINE AND STOOL UA Ketones 15 mg/dL Negative mg/dL 02/14/2015 [facility] URINE AND STOOL UA Nitrite Negative (02/14/15 3:34 AM) Negative 02/14/2015 [facility] URINE AND STOOL UA Urobilinogen 0.2 0.1 - 1.0 02/14/2015 [facility] URINE AND STOOL UA Glucose Negative (02/14/15 3:34 AM) Negative 02/14/2015 [facility] URINE AND STOOL UA pH 6.0 5.0 - 8.0 02/14/2015 [facility] URINE AND STOOL UA Spec Grav 1.025 <=1.030 02/14/2015 [facility] URINE AND STOOL UA Turbidity Slight Cloudy (02/14/15 3:34 AM) Clear 02/14/2015 [facility] URINE AND STOOL UA Color Yellow *NA* (02/14/15 3:34 AM) Yellow 02/14/2015 [facility] URINE AND STOOL Fecal Leukocyte None Seen 3 (02/14/15 3:34 AM) 02/14/2015 <sup>3</sup>Interpretive Franki a: A Value of None Seen, Rare, or Few is Normal. [facility] URINE CHEM U Preg Negat theron (02/14/15 3:34 AM) Negative 02/14/2015 [facility] CHEM PANEL Bili Indirect 0.4 0.0 - 1.0 02/14/2015 [facility] CHEM PANEL Alk Phos 65 39 - 136 02/14/2015 [facility] CHEM PANEL Bili Direct 0.1 0.0 - 0.3 02/14/2015 [facility] CHEM PANEL A/G Ratio 1.0 0.7 - 1.6 02/14/2015 [facility] CHEM PANEL Globulin 3.8 2.0 - 4.0 02/14/2015 [facility] CHEM PANEL Albumin Lvl 3.9 3.5 - 5.0 02/14/2015 [facility] CHEM PANEL Total Protein 7.7 6.4 - 8.4 02/14/2015 [facility] CHEM PANEL AST 23 0 - 37 02/14/2015 [facility] CHEM PANEL ALT 40 0 - 65 02/14/2015 [facility] CHEM PANEL Bili Total 0.5 0.2 - 1.3 02/14/2015 [facility] CHEM PANEL eGFR 87 02/14/2015 <sup>1</sup>Result Comment: [...] should be multiplied by the estimated BMI. [facility] CHEM PANEL CO2 22 24 - 32 02/14/2015 [facility] CHEM PANEL Sodium Lvl 141 135 - 145 02/14/2015 [facility] CHEM PANEL Creatinine Lvl 0.9 0.5 - 1.4 02/14/2015 [facility] CHEM PANEL Potassium Lvl 3.5 3.5 - 5.1 02/14/2015 [facility] CHEM PANEL Glucose Lvl 83 70 - 99 02/14/2015 <sup>2</sup>Interpretive Data: Adult ref erence range values reflect the clinical guidelines
of the [place] [employer]. [facility] CHEM PANEL BUN 5 7 - 22 02/14/2015 [facility] CHEM PANEL AGAP 16.5 10.0 - 20.0 02/14/2015 [facility] CHEM PANEL Calcium Lvl 9.2 8.5 - 10.5 02/14/2015 [facility] CHEM PANEL Chloride Lvl 106 95 - 109 02/14/2015 [facility] URINE AND STOOL UA Urobilinogen <=1.0 mg/dL 0.1 - 1.0 09/30/2014 [facility] URINE AND STOOL UA Blood Moderate *ABN* (09/29/14 11:56 PM) Negative 09/30/2014 [facility] URINE AND STOOL UA Bili Negative *NA* (09/29/14 11:56 PM) Negative 09/30/2014 [facility] URINE AND STOOL UA Leuk Est Trace *ABN* (09/29/14 11:56 PM) Negative 09/30/2014 [facility] URINE AND STOOL UA Nitrite Negative (09/29/14 11:56 PM) Negative 09/30/2014 [facility] URINE AND STOOL UA Ketones Negative mg/dL Negative mg/dL 09/30/2014 [facility] URINE AND STOOL UA RBC 2 0 - 2 09/30/2014 [facility] URINE AND STOOL UA Bacteria Few /HPF [...] UA pH 6.0 5.0 - 8.0 09/30/2014 [facility] URINE AND STOOL UA Spec Grav 1.020 <=1.030 09/30/2014 [facility] URINE AND STOOL UA Turbidity Marked *ABN* (09/29/14 11:56 PM) Clear 09/30/2014 [facility] URINE AND STOOL UA Glucose Negative mg/dL Negative mg/dL 09/30/2014 [facility] URINE AND STOOL UA Protein Negative mg/dL Negative mg/dL 09/30/2014 [facility] CHEM PANEL Lipase Lvl 120 73 - 393 09/30/2014 [facility] CHEM PANEL Magnesium Lvl 1.9 1.8 - 2.4 09/30/2014 [facility] CHEM PANEL Phosphorus 4.0 2.5 - 4.5 09/30/2014 [facility] CHEM PANEL eGFR 101 09/30/2014 <sup>1</sup>Result Comment: [...] should be multiplied by the estimated BMI. [facility] CHEM PANEL Albumin Lvl 3.8 3.5 - 5.0 09/30/2014 [facility] CHEM PANEL CO2 28 24 - 32 09/30/2014 [facility] CHEM PANEL Creatinine Lvl 0.8 0.5 - 1.4 09/30/2014 [facility] CHEM PANEL Calcium Lvl 9.1 8.5 - 10.5 09/30/2014 [facility] CHEM PANEL BUN 10 7 - 22 09/30/2014 [facility] CHEM PANEL Glucose Lvl 89 70 - 99 09/30/2014 <sup>2</sup>Interpretive Data: Adult ref erence range values reflect the clinical guidelines
of the [place] [employer]. [facility] CHEM PANEL Potassium Lvl 4.1 3.5 - 5.1 09/30/2014 [facility] CHEM PANEL Sodium Lvl 138 135 - 145 09/30/2014 [facility] CHEM PANEL Chloride Lvl 104 95 - 109 09/30/2014 [facility] CHEM PANEL ALT 36 0 - 65 09/30/2014 [facility] CHEM PANEL AST 23 0 - 37 09/30/2014 [facility] CHEM PANEL Bili Total 0.6 0.2 - 1.3 09/30/2014 [facility] CHEM PANEL Total Protein 8.1 6.4 - 8.4 09/30/2014 [facility] CHEM PANEL Alk Phos 100 39 - 136 09/30/2014 [facility] CHEM PANEL AGAP 10.1 10.0 - 20.0 09/30/2014 [facility] CHEM PANEL B/C Ratio 12 6 - 25 09/30/2014 [facility] CHEM PANEL A/G Ratio 0.9 0.7 - 1.6 09/30/2014 [facility] CHEM PANEL Globulin 4.3 2.0 - 4.0 09/30/2014 [facility] CHEM PANEL Amylase Lvl 50 25 - 115 09/30/2014 [facility] ENDOCRINOLOGY S Preg Ne gative *NA* (09/29/14 11:55 PM) Negative 09/30/2014 [facility] HEMATOLOGY Hgb 15.3 12.0 - 16.0 09/30/2014 [facility] HEMATOLOGY Hct 44.8 36.0 - 48.0 09/30/2014 [facility] HEMATOLOGY WBC 13.5 3.7 - 10.4 09/30/2014 [facility] HEMATOLOGY MCH 30.0 27.0 - 31.0 09/30/2014 [facility] HEMATOLOGY MCHC 34.1 32.0 - 36.0 09/30/2014 [facility] HEMATOLOGY RDW 12.8 11.5 - 14.5 09/30/2014 [facility] HEMATOLOGY RBC 5.10 4.20 - 5.40 09/30/2014 [facility] HEMATOLOGY MPV 9.0 7.4 - 10.4 09/30/2014 [facility] HEMATOLOGY Platelet 235 133 - 450 09/30/2014 [facility] HEMATOLOGY MCV 87.9 80.0 - 98.0 09/30/2014 [facility] HEMATOLOGY Basophils # 0.1 0.0 - 0.2 09/30/2014 [facility] HEMATOLOGY Monocytes # 1.0 0.0 - 0.8 09/30/2014 [facility] HEMATOLOGY Eosinophils # 0.6 0.0 - 0.5 09/30/2014 [facility] HEMATOLOGY Segs 62.0 45.0 - 75.0 09/30/2014 [facility] HEMATOLOGY Lymphocytes 25.2 20.0 - 40.0 09/30/2014 [facility] HEMATOLOGY Eosinophils 4.7 0.0 - 4.0 09/30/2014 [facility] HEMATOLOGY Basophils 1.0 0.0 - 1.0 09/30/2014 [facility] HEMATOLOGY Segs-Bands # 8.4 1.5 - 8.1 09/30/2014 [facility] HEMATOLOGY Lymphocytes # 3.4 1.0 - 5.5 09/30/[address] [facility] Monocytes 7.1 2.0 - 12.0 09/30/2014 [facility] Pathology Reports No Data Provided for This [...] hematoma. Nimesh Alejo MD On 11/02/2019 13:50:20; [id number] 11/02/2019 [facility] Ext Upper Limited non vascular US Clinical Indication: - right axillary pain Comparison: None FINDINGS: Targeted sonographic evaluation of the right axilla. No soft tissue masses. No cysts or fluid collections. No lymphadenopathy. IMPRESSION: No sonographic abnormality identified in the right axilla. SL: [id number] 03/23/2019 [facility] Chest w contrast CT Clinical I ndication: [...] likely reactive in nature. SL: ED 03/06/2019 [facility] Ext Upper Limited non vascular US EXAM: [...] nodes if clinically indicated. MAXI 13 03/03/2019 [facility] Chest 1view DX Clinical Indica tion: - [...] radiographic evidence of acute cardiopulmonary disease. SL: [id number] 02/28/2019 [facility] Lower non vascular US Soft tissue [...] area of clinical concern. SL: MICKI 12/05/2018 [facility] Pelvis w IV contrast CT Pelvis w [...] organized or drainable abscess. SL: SILVA 12/03/2018 [facility] Abdomen/Pelvis w IV contrast CT Clinical Indication: - abd pain with fever and vomiting; CT imaging performed at this location utilizes radiation dose optimization techniques which include one or more of the following: -Automated exposure control -Adjustment of the mA and/or kV accordin g to patient size -Use of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 81 05/15/2015 [facility] Temperature Oral (F) 98.1 F 05/15/2015 [facility] Height 167.64 cm 05/15/2015 [facility] BMI Calculated 43.67 05/15/2015 [facility] Weight 122.727 05/15/2015 [facility] Temperature Oral (F) 98.3 F 05/15/2015 [facility] Systolic (mm Hg) 127 05/15/2015 [facility] Diastolic (mm Hg) 74 05/15/2015 [facility] Respitory Rate 20 05/15/2015 [facility] Heart Rate 76 05/15/2015 [facility] Respitory Rate 18 02/14/2015 [facility] Systolic (mm Hg) 105 02/14/2015 [facility] Diastolic (mm Hg) 67 02/14/2015 [facility] Heart Rate 56 02/14/2015 [facility] Heart Rate 57 02/14/2015 [facility] Temperature Oral (F) 98.3 F 02/14/2015 [facility] Respitory Rate 18 02/14/2015 [facility] Systolic (mm Hg) 134 02/14/2015 [facility] Diastolic (mm Hg) 80 02/14/2015 [facility] BMI Calculated 40.11 02/14/2015 [facility] Weight 112.727 02/14/2015 [facility] Temperature Oral (F) 98.6 F 02/14/2015 [facility] Height 167.64 cm 02/14/2015 [facility] Heart Rate 93 02/14/2015 [facility] Respitory Rate 18 02/14/2015 [facility] Systolic (mm Hg) 111 02/14/2015 [facility] Diastolic (mm Hg) 84 02/14/2015 [facility] Diastolic (mm Hg) 78 09/30/2014 [facility] Systolic (mm Hg) 122 09/30/2014 [facility] Temperature Oral (F) 98.3 F 09/30/2014 [facility] Respitory Rate 16 09/30/2014 [facility] Heart Rate 75 09/30/2014 [facility] Temperature Oral (F) 98.2 F 09/30/2014 [facility] Diastolic (mm Hg) 71 09/30/2014 [facility] Heart Rate 71 09/30/2014 [facility] Systolic (mm Hg) 131 09/30/2014 [facility] Respitory Rate 18 09/30/2014 [facility] Respitory Rate 18 09/30/2014 [facility] Heart Rate 76 09/30/2014 [facility] Diastolic (mm Hg) 87 09/30/2014 [facility] Temperature Oral (F) 98.4 F 09/30/2014 [facility] Height 167.64 cm 09/30/2014 [facility] Systolic (mm Hg) 127 09/30/2014 [facility] BMI Calculated 42.05 09/30/2014 [facility] Weight 118.182 09/30/2014 [facility] Encounters Location Location Details Encounter Type Encounter Number Reason For Visit Attending Provider ADM Date DC Date Status Source [facility] [id number] Mario Gu 09/30/2014 09/30/2014 [facility] [id number] Juancho Malloy 02/14/2015 02/14/2015 [facility] [id number] 07 Temitopemary Green 05/15/2015 05/15/2015 [facility] [id number] Rosy Diaz 05/17/2015 05/17/2015 [facility] [id number] Hina Finley 07/04/2015 07/04/2015 [facility] [id number] Rosy Diaz 10/13/2015 10/13/2015 [facility] [id number] Salvador Gutierrezana 01/17/2016 01/17/2016 [facility] Emergency [facility] [id number] Wilmar Mcgraw 02/24/2016 02/24/2016 [facility] Emergency [id number] Cristino Gilberteal 04/14/2016 04/14/2016 [facility] Emergency [id number] Jeannie Wahluyen 04/16/2016 04/16/2016 [facility] Emergency [id number] Rosalind Floydooqi 04/23/2016 04/23/2016 [facility] Emergency [id number] Jama Lynya 07/20/2016 07/20/2016 [facility] Outpatient [id number] STEVEN TAPIA 11/24/2016 [facility] Emergency [id number] Richard Owen 12/25/2016 12/26/2016 [facility] Observation [id number] Alec Vicente Jr 12/31/2016 12/31/2016 [facility] Emergency [id number] Isacc Melanie 01/12/2018 01/13/2018 [facility] Inpatient [id number] Oralia Floydooqui 05/17/2018 05/22/2018 [facility] [place] [facility] [id number] 00 Tracie Stahl 06/24/2018 06/25/2018 [facility] Inpatient [id number] Barton Elham 08/24/2018 08/30/2018 [facility] Emergency [id number] Ruth Jay 09/06/2018 09/06/2018 [facility] Emergency [id number] Temitope Green 10/11/2018 10/11/2018 [facility] Inpatient [id number] Lexx Sauer 10/11/2018 10/12/2018 [facility] Inpatient [id number] Terrence Verdugo 12/03/2018 12/09/2018 [facility] Emergency [id number] Dante Martin 12/13/2018 12/13/2018 [facility] Inpatient [id number] Jo White 01/27/2019 01/31/2019 [facility] Inpatient [id number] Shabnam Campos 03/01/2019 03/08/2019 [facility] Observation [id number] Jose L Cunningham 03/23/2019 03/25/2019 [facility] Emergency [id number] Eliot [place] 04/03/2019 04/04/2019 [facility] Emergency [id number] Eliot Bebeto 05/16/2019 05/16/2019 [facility] Emergency [id number] Karthik Hogan 05/25/2019 05/25/2019 [facility] Outpatient [id number] Edwardo Rodriguez 11/02/2019 11/03/2019 [facility] Observation [id number] Salim Jorge L 11/02/2019 11/04/2019 [facility] Inpatient [id number] Isa Michelleismael 03/23/2020 03/26/[address] [facility] Procedures Procedure Code Date Perfomer Comments Source Incision AND drainage [id number] 05/17/[address] [facility] [id number] [facility] Assessment and Plan Assessment and Plan Date [...] follow up on discharge call Dr Huston [phone] fax no. [phone] ANTIBIOTICS: Vancomycin day 3 First Dose Antibiotic: [...] Blood Collected: 03/23/2020 07:20 Verified by: MICROBIOLOGY, [facility] - 03/25/2020 11:31 Collected: 03/23/2020 07:20 Verified by: MICROBIOLOGY, [facility] - 03/25/2020 11:31 No Growth At 2 Days Collected: 03/23/2020 07:20 Verified by: MICROBIOLOGY, [facility] - 03/25/2020 11:31 No Growth At 2 Days Collected: 03/23/2020 07:20 Verified by: MICROBIOLOGY, [facility] - 03/25/2020 11:31 IMAGING: Imaging Studies (last 36 hours) (none) Scheduled Meds (1): 03/23/20 vancomycin + Sodium Chloride 0. 9% IV 250 mL 1,000 mg IVPB [id number] 250 ml/hr This note was dictated with the use of [employer] speech recognition software. Please use best judgement when interpreting and excuse any automotive parts clerk errors. Extracted from:Title: Clinical Document Author: Jed Huston MD Date: 03/23/20 [facility] INFECTIOUS DISEASE CONSULTATION NOTE Nikole KATE [...] Water IV (Dextrose 50% Syringe (D50W)), acetaminophen-hydrocodone (Cerulean 10/325 oral tablet), acetaminophen, glucagon, hydromorphone (Dilaudid), [...] note was dictated with the use of [employer] speech recognition software. Please use best judgement when interpreting and excuse any automotive parts clerk errors. 03/26/2020 [facility] Extracted from:Title: Clinical [...] home meds SCDs observation full code 11/04/2019 [facility] Extracted from:Title: ID Consultation No te Author: Mahesh Wilkins MD Date: 03/24/19 [facility] INFECTIOUS DISEASE CONSULTATION NOTE Nikole Bob M.D. M. Farhan Khan, M.D. Syed W. Hasan, M.D. REQUESTING PHYSICIAN: Dr. Cunningham REASON FOR CONSULTATION: Fever, right axillar nodule/pain HISTORY OF PRESENT ILLNESS: 33 yo female with history of obesity, de pression, polycystic ovary syndrome, recurrent skin infection, hidradenitis suppurativa presents to [facility] ED for fever and R axillary [...] 9% IV 500 mL 1.75 gm IVPB [id number] 250 ml/hr ALLERGIES: Allergies: Keflex, clindamycin, ciprofloxacin, [...] planned, still have recommended patient to see biblical languages professor as outpatient to rule out any other underlying possible immune issue leading to prior recurrent skin infections - Based on patient's history, [facility] patient is having first current skin inflammatory [...] will defer this ultimately to patient's regular calibration laboratory technician Thank you for this consult. ID will [...] written and given to patient. Diagnosis Abscess (LPU88-WI L02.91, Working, Medical). Forunculosis (ZAR83-IK L02.92, Working, Medical). Hidradenitis axillaris (FTG69-FE L73.2, Working, Medical). Obesity (DFC67-PJ E66.9, Working, Medical). Obesity (WGQ18-XT E66.9, Working, Medical). PCOS (polycystic ovarian syndrome) (RLC80-WX E28.2, Working, Medical). PCOS (polycystic ovarian syndrome) (OIV02-EU E28.2, Working, Medical). Sepsis (MQG25-LV A41.9, Working, Medical). Sepsis (OWQ12-JX A41.9, Working, Medical). Course Improving. Education and [...] follow up on discharge call Dr Huston [phone] SUBJECTIVE: Seen and examined. Events noted. VITAL [...] Meds (5): 03/01/19 enoxaparin 40 mg SUB-Q [id number] 03/02/19 spironolactone 50 mg PO Daily 03/01/19 vancomycin + Sodium Chloride 0. 9% IV 250 mL 1.5 gm IVPB [id number] 166.67 ml/hr 03/03/19 zinc sulfate 220 mg PO Daily 03/02/19 zolpidem (Ambien) 10 mg PO Bedt vero Extracted from:Title: ID Consultation Note Author: Mahesh Wilkins MD Date: 03/01/19 [facility] INFECTIOUS DISEASE CONSULTATION NOTE Nikole Bob M.D. M. Farhan Khan, M.D. Syed W. Hasan, M.D. REQUESTING PHYSICIAN: Dr. Candelario REASON FOR CONSULTATION: Recurrent skin infection HISTORY OF PRESENT ILLNESS: 33 yo F with PMH including obesity, depr ession, PCOS, hidrenaitis suppurativa,, recurrent skin infection, antibiotic allergies, who presented to [facility] 02/28/19 due to worsening right axillary/breast tenderness and new skin nodules. Patient had been recently hospitalized January 2019 for vulvar/groin infection that improved after discharge and completing oral antibiotic course. She also since then had newer furuncle on bilateral calf (one each) that had resolevd with doxycycline+Sivextro treatment by calibration laboratory technician that finished this past Thursday. She notes also undergoing frequent muporicin nasal decolonization, chlorhexidine and bleach baths as recommended by her calibration laboratory technician. In last few days though she noted [...] Meds (2): 03/01/19 enoxaparin 40 mg SUB-Q [id number] 03/01/19 vancomycin + Sodium Chloride 0. 9% IV 250 mL 1.5 gm IVPB [id number] 166.67 ml/hr ALLERGIES: Allergies: Keflex, clindamycin, ciprofloxacin, [...] from any purulent drainage - F/u outpatient calibration laboratory technician after dis charge; also may need to see biblical languages professor as outpatient for immunodeficiency workup given recurring [...] INFECTIOUS DISEASES PROGRESS NOTE Jed Huston M.D. [facility] [phone] Reason For Follow up: Hidradenitis SUBJECTIVE: Seen [...] 01/27/19 enoxaparin (Lovenox) 40 mg SUB- Q [id number] 01/27/19 non-formulary (*Please bring pt 's own [...] 01/27/19 enoxaparin (Lovenox) 40 mg SUB- Q [id number] 01/27/19 non-formulary (*Please bring pt 's own [...] taken for H&P is 40 min. 01/31/2019 [facility] Extracted from:Title: ID Progress Note Author: Mahesh Wilkins MD Date: 12/09/18 [facility] INFECTIOUS DISEASES PROGRESS NOTE Nikole Bob M.DM. [...] Meds (4): 12/03/18 enoxaparin 40 mg SUB-Q [id number] 12/05/18 spironolactone 50 mg PO Daily 12/08/18 [...] also plan patient to follow-up with her calibration laboratory technician as outpatient routinely Above discussed with hospitalist Dr. Mendoza CURRENT ANTIMICROBIALS: IV vancomycin day # 6 Extracted from:Title: Clinical Document Author: Tracie Stahl MD Date: 12/06/18 Post Operative Procedure Note A complete detailed Operative Report must follow within 24 hours of the procedure. Pre-Operative Diagnosis: Left thigh abscess x 2 Post-Operative Diagnosis: Same Surgeon/Endoscopist/Physician(s): Raoul Stahl Part Time(s): None Procedure Performed: Incision and drainage of left thigh abscess x 2 Estimated Blood Loss: Minimal Specimens Removed: Cultures taken Findings of the Procedure: Inner thigh abscess cavity and small upper thigh abscess Dictation ID for complete detailed Operative Report:: [id number] Extracted from:Title: Clinical Document Author: Jed Huston MD Date: 12/04/18 [facility] INFECTIOUS DISEASE CONSULTATION NOTE JED HUSTON [...] te Author: Mahesh Wilkins MD Date: 10/11/18 [facility] INFECTIOUS DISEASE CONSULTATION NOTE Mahesh Wilkins M.D. Zoey Hartley M.D. Nikole Claros M.D. REQUESTING PHYSICIAN: Dr. Sauer REASON FOR CONSULTATION: Recurrent skin infection HISTORY OF PRESENT ILLNESS: 32 yo F with PMH including PCOS, hiadren itis suppurativa, recurrent skin lesion/boil on abdomen/thigh with MSSA superinfection , multiple antibiotic allergies who presented to [facility] 10/11/18 due to worsening/recurrent painful skin lesion. I had seen patient before for similar issues in past several months- patient has been dealing with this for past year. After Aug 2018 hospitalization she had finished IV vancomycin course as well as followed with calibration laboratory technician who had diagnosed her with hiadrenitis suppurative [...] 10/11/18 enoxaparin (Lovenox) 40 mg SUB- Q [id number] 10/11/18 linezolid 600 mg PO [id number] ALLERGIES: Allergies: Keflex, clindamycin, ciprofloxacin, Bactrim, penicillin [...] is closely followed up by her primary calibration laboratory technician who comes in for evaluation of multiple [...] 1 dose of vancomycin and transferred to [facility]. At this time patient denies having [...] DVT prophylaxis: Lovenox Disposition: Likely tomorrow. 10/12/2018 [facility] Extracted from:Title: Clinical Document Author: Oralia Lizarraga [...] 9% IV 250 mL 1,500 mg IVPB [id number] 166.67 ml/hr Unscheduled Meds (2): 08/27/18 lidocaine [...] sterile water 20 mL 2 gm IV [id number] 240 ml/hr 05/17/18 enoxaparin 40 mg SUB-Q [id number] 05/20/18 vancomycin + Sodium Chloride 0. 9% IV 250 mL 1,500 mg IVPB [id number] 166.67 ml/hr Unscheduled Meds (2): 05/17/18 influenza [...] Note Author: Mahesh Wilkins MD Date: 05/18/18 [facility] INFECTIOUS DISEASE CONSULTATION NOTE Nikole Bob M.D. M. Farhan Khan, M.D. Syed W. Hasan, M.D. REQUESTING PHYSICIAN: Dr. Lizarraga REASON FOR CONSULTATION: Abdominal wall purulent cellulitis/phelgmon HISTORY OF PRESENT ILLNESS: Colleen Bedolla is a 32 yo F with PMH including PCOS who presented to [facility] due to worsening cellulitis on abdomen [...] developed hives) and seeing outside ID clinical orthoptist in [place]. She still notes significant pain and scant [...] Meds (2): 05/17/18 enoxaparin 40 mg SUB-Q [id number] 05/17/18 vancomycin + Sodium Chloride 0. 9% IV 250 mL 1,000 mg IVPB [id number] 250 ml/hr ALLERGIES: Allergies (5) Active Reaction [...] joe ideation. 5. DVT prophylaxis. Lovenox. 05/22/[address] [facility] Plan of Care No Data Provided [...] on: 11/02/19 1quit smoking in may 25 [facility] Social History TypeResponse Alcohol Never Employment/School Status: [...] on: 03/23/20 1quit smoking in may [address] [facility] Social History TypeResponse Substance Abuse Use: [...] No; Reg Smoking Cessation Counseling No 02/14/2015 [facility] Family History No Data Provided for This Section Advance Directives No Data Provided for This Section Functional Status No Data Provided for This Section
--- OUTSIDE RECORDS SUMMARY | 2020-04-17 18:07 | XMS REPORT | Continuity of Care Document ---
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 Wasted: ___ mg Shahida Soto Dextrose 50% Syringe 2019-03-23 21:15:00 No 12.5 gm, 25 mL, Route: IVP, Drug Form: INJ, Dosing Weight 122.727, kg, PRN, PRN Blood Glucose Results, Start date: 03/23/19 16:15:00 CDT, Duration: 30 day, Stop date: 04/22/19 16:14:00 CDT, 0 [facility] Vancomycin 2019-03-23 19:21:00 No 2001 mg: infuse over 2.5 hours For adult patients only: Round to nearest 250 mg per Medical Staff approval MEDICATION WASTE Product Size: 1000 mg Product Wasted: ___ mg [facility] Saline Flush 0.9% 2019-03-23 17:01:00 No Notes: preservative free. [facility] Acetaminophen 300 MG / Codeine Phosphate 30 MG Oral Tablet [Tylenol with Codeine #3] 2019-03-07 22:14:00 Yes 1 tab, PO, Q6H, PRN Pain, X 7 day, # 28 tab, 0 Refill(s) [facility] Doxycycline Monohydrate 100 MG Oral Tablet 2019-03-07 22:14:00 Yes 100 mg = 1 tab, PO, Q12H, X 10 day, # 20 tab, 0 Refill(s), Pharmacy: [facility] [id number] [facility] Acetaminophen 325 MG / Hydrocodone Bitartrate 10 MG Or al Tablet [[place] 10/325] 2019-03-03 18:50:00 No Note s: Do not exceed 4gm/day of acetaminophen. (Same as: [place] 325/10) [facility] Hydromorphone 2019-03-03 18:49:00 No Notes: Same as: Dilaudid [facility] Zinc Sulfate 2019-03-03 14:00:00 No Notes: (Zinc sulfate capsule) - 220 mg Zinc sulfate = 50 mg elemental zinc Same as Zinc Sulfate [facility] Ambien 2019-03-03 02:00:00 No Notes: (Same As: Ambien) [facility] Spironolactone 2019-03-02 19:46:00 No Notes: (Same As: Aldactone) [facility] Lidocaine 2019-03-02 19:17:00 No Notes: Preservative free. (Same as: Xylocaine MPF) [facility] Vancomycin 2019-03-01 18:00:00 No 2001 mg: infuse over 2.5 hours For adult patients only: Round to nearest 250 mg per Medical Staff approval MEDICATION WASTE Product Size: 1000 mg Product Wasted: ___ mg [facility] height weight allergies 2019-03-01 05:00:00 No height weight allergies, RN pls complete HWA for order verificati, Drug form: MISC, Route: MISC, ONCALL, 03/01/19 0:00:00 CDT, Duration: 30 day, Stop date: 03/30/19 23:59:00 CDT, 0 [facility] Enoxaparin 2019-03-01 05:00:00 No Notes: (S zenaida as: Lovenox) [facility] Dextrose 50% Syringe 2019-03-01 04:12:00 No 12.5 gm, 25 mL, Route: IVP, Drug Form: INJ, Dosing Weight 136.364, kg, PRN, PRN Blood Glucose Results, Start date: 02/28/19 23:12:00 CDT, Duration: 30 day, Stop date: 03/30/19 23:11:00 CDT, 0 [facility] Glucagon 2019-03-01 04:12:00 No 1 mg, Route: IM, Drug form: PDR/INJ, PRN, Dosing Weight 136.364, kg, PRN Blood Glucose Results, Start date: 02/28/19 23:12:00 CDT, Duration: 30 day, Stop date: 03/30/19 23:11:00 CDT, 0 [facility] Bisacodyl 2019-03-01 04:12:00 No Notes: (Same As: Dulcolax, Bisco-Lax) [facility] Ondansetron 2019-03-01 04:12:00 No Notes: (Same as: Zofran) MEDICATION WASTE Product Size: 4 mg Product Wasted: ___ mg Shahida Soto Acetaminophen 2019-03-01 04:12:00 No Notes: Do not exceed 4 gm/day. (Same as: Tylenol) Shahida Soto Melatonin 2019-03-01 04:12:00 No Notes: (Sa me as: Melatonin) Shahida Soto Magnesium Oxide 2019-03-01 04:09:00 No Notes: (Same as: Mag-Ox 400) Magnesium oxide [id number] elemental magnesium Dose=____mg magnesium oxide (___mg elemental magnesium) Shahida bravo Magnesium Sulfate 2019-03-01 04:09:00 No Notes: WASTE: F/P - Sink; E - [employer] [facility] sodium phosphate 2019-03-01 04:09:00 No Notes: Infuse over 4 hour. Do not infuse phosphorous concurrently in the same line as TPN or IVF that contains calcium. For double lumen central lines, phosphorous may be infused in a separate lumen from TPN. [facility] Nerissa cintron Calcium Gluconate 2019-03-01 04:09:00 No Notes: WASTE: F/P - Sink; E - [employer] [facility] Potassium Chloride 2019-03-01 04:09:00 No Notes: (Same as: K-Dur 20) "Do Not Crush" Give with food and full glass of water For patients unable to swallow tablet, dissolve in one half glass of water. Allow about 2 minutes for the tablets to disintegrate. Stir before giving to prepare slurry and administer. Please exclude Patient s with feeding tube less than 14 Serbian (Dobhoff, J-tube etc) and pediatric and patients. [facility] potassium phosphate 2019-03-01 04:09:00 No Notes: (Same as: K Phosphate.) Do not infuse phosphorous concurrently in the same line as TPN or IVF that contains calcium. For double lumen central lines, phosphorous may be infused in a separate lumen from TPN. 1 mMol phoshate has 1.47 mEq potassium Infuse over 4 hours [facility] potassium phosphate-sodium phosphate 250 mg-280 mg-160 mg oral powder for reconstitution 2019-03-01 04:09:00 No Notes: (Same as: Phos-NaK) Each 1.5 gm pkt has 250mg phosphorous. Mix w/2.5oz water and stir. [facility] Hydromorphone 2019-03-01 04:08:00 No Notes: Same as: Dilaudid [facility] Tramadol 2019-03-01 04:08:00 No Notes: Not to [...] Size: 1000 mg Product Wasted: ___ mg [facility] Vancomycin 2019-03-01 02:50:00 No 2001 mg: infuse over 2.5 hours For adult patients only: Round to nearest 250 mg per Medical Staff approval MEDICATION WASTE Product Size: 1000 mg Product Wasted: ___ mg [facility] NS (Bolus) IV 2019-03-01 02:50:00 No 1,000 mL, 1,000 ml/hr, Infuse Over: 1 hr, Route: IV, 1,000, Drug form: INJ, ONCE, Priority: STAT, Dosing Weight 136.364 kg, Start date: 02/28/19 21:50:00 CDT, Stop date: 02/28/19 21:50:00 CDT, 0 [facility] Zofran 2019-03-01 02:50:00 No Notes: (Same as: Zofran) MEDICATION WASTE Product Size: 4 mg Product Wasted: ___ mg [facility] Morphine 2019-03-01 02:50:00 No Not es: (Same as:MORPhine Sulfate) [facility] Cefazolin 2019-01-31 20:00:00 No Notes: (Same As: Ancef, Kefzol) MEDICATION WASTE Product Size: 1000 mg Product Wasted: ___ mg [facility] ibuprofen 800 mg oral tablet 2019-01-31 19:00:00 Yes 800 mg = 1 tab, PO, Q8H, PRN Pain, Take with food, # 30 tab, 0 Refill(s), Pharmacy: [facility] [address] [place] [address] zinc sulfate 220 mg oral capsule 2019-01-31 18:31:00 Yes 220 mg = 1 cap, PO, Daily, # 30 cap, 0 Refill(s), Pharmacy: [facility] [address] [place] [address] cefpodoxime 200 mg oral tablet 2019-01-31 18:31:00 Yes 400 mg = 2 tab, PO, Q12H, X 10 day, # 40 tab, 0 Refill(s), Pharmacy: [facility] [address] Acetaminophen 300 MG / Codeine Phosphate 30 MG Oral Tablet [Tylenol with Codeine #3] 2019-01-31 15:02:00 No Notes: Do not exceed 4gm/day of acetaminophen. (Same as: Tylenol with Codeine # 3) [facility] ATTN: vanc trough ordered before 8PM dose 2019-01-31 00:30:00 No ATTN: vanc trough ordered before 8PM dose, dont give before lab is drawn, Drug form: MISC, Route: MISC, ONCE, 01/30/19 19:30:00 CDT, Stop date: 01/30/19 19:30:00 CDT [facility] Zinc Sulfate 2019-01-30 14:00:00 No Notes: (Zinc sulfate capsule) - 220 mg Zinc sulfate = 50 mg elemental zinc Same as Zinc Sulfate [facility] vancomycin + Sodium Chloride 0.9% IV 250 mL 2019-01-29 20:00:00 No 2001 mg: infuse over 2.5 hours For adult patients only: Round to nearest 250 mg per Medical Staff approval MEDICATION WASTE Product Size: 1000 mg Product Wasted: ___ mg [facility] vanco trough 2019-01-29 18:30:00 No vanco trough, reminder, Drug form: MISC, Route: MISC, ONCE, 01/29/19 13:30:00 CDT, Stop date: 01/29/19 13:30:00 CDT [facility] cefepime 2019-01-29 04:00:00 No Notes: (Same As: Maxipime) MEDICATION WASTE Product Size: 1000 mg Product Wasted: ___ mg Shahida Soto RN - do not give vanc til trough is drawn 01/28 @ 12:30 2019-01-28 17:00:00 No RN - do not giv e vanc til trough is drawn 01/28 @ 12:30, attn, Drug form: MISC, Route: MISC, ONCE, 01/28/19 12:00:00 CDT, Stop date: 01/28/19 12:00:00 CDT [facility] Spironolactone 2019-01-28 14:00:00 No Notes: (Same As: Aldactone) [facility] zolpidem 2019-01-28 02:00:00 No Notes: (Byron e As: Ambien) [facility] Ambien 2019-01-28 02:00:00 No 10 mg, Route: PO, Drug form: TAB, Bedtime, Dosing Weight 127.273, kg, Start date: 01/27/19 21:00:00 CDT, Duration: 30 day, Stop date: 02/25/19 21:00:00 CDT [facility] Adderall 2019-01-27 22:00:00 No 30 mg, Route: PO, BID, Dosing Weight 127.273, kg, Start date: 01/27/19 17:00:00 CDT, Duration: 30 day, Stop date: 02/26/19 9:00:00 CDT [facility] *Please bring pt's own adderall to pharmacy for label* 2019-01-27 21:00:00 No *Please bring p t's own adderall to pharmacy for label*, ATTN:RN, Drug form: MISC, Route: MISC, QSHIFT, 01/27/19 16:00:00 CDT, Duration: 30 day, Stop date: 02/26/19 8:00:00 CDT [facility] Acetaminophen 325 MG / Hydrocodone Bitartrate 5 MG Oral Tabl et [[place] 5/325] 2019-01-27 13:58:00 No Notes: (Same as: [place] 325/5) Do not exceed 4gm/day of acetaminophen. [facility] nn Vancomycin 2019-01-27 10:00:00 No 1 ea, [...] 30 day, Stop date: 02/26/19 4:34:00 CDT Shahida Soto Acetaminophen 2019-01-27 09:35:00 No Notes: Do not exceed 4 gm/day. (Same as: Tylenol) Shahida Soto Ondansetron 2019-01-27 09:35:00 No Notes: (Same as: Zofran) MEDICATION WASTE Product Size: 4 mg Product Wasted: ___ mg Shahida Soto Glucagon 2019-01-27 09:35:00 No 1 mg, Route: IM, Drug form: PDR/INJ, PRN, Dosing Weight 125, kg, PRN Blood Glucose Results, Start date: 01/27/19 4:35:00 CDT, Duration: 30 day, Stop date: 02/26/19 4:34:00 CDT Shahida Soto Morphine 2019-01-27 08:29:00 No 4 mg, Route: IVP, ONCE, Dosing Weight 125, kg, Priority: STAT, Start date: 01/27/19 3:29:00 CDT, Stop date: 01/27/19 3:29:00 CDT Shahida Soto Vancomycin 2019-01-27 08:28:00 No 1,000 mg, Route: IVPB, Drug form: INJ, ONCE, Dosing Weight 125, kg, Priority: STAT, Start date: 01/27/19 3:28:00 CDT, Stop date: 01/27/19 3:28:00 CDT, ABX Indication: Skin/Soft Tissue Infection Shahida Soto Mupirocin 20 MG/ML Topical Cream 2018-12-13 02:25:00 Yes 1 appl, TOP, TID, X 5 day, # 15 gm, 0 Refill(s) Shahida Soto azithromycin 500 mg oral tablet 2018-12-13 02:24:00 Yes 500 mg = 1 tab, PO, Daily, X 5 day, # 5 tab, 0 Refill(s) Shahida Soto tedizolid 200 mg oral tablet 2018-12-09 22:27:00 Yes 200 mg = 1 tab, PO, Daily, X 6 day, # 6 tab, 0 Refill(s), Pharmacy: [facility] [id number] Shahida Soto Acetaminophen 300 MG / Codeine Phosphate 30 MG Oral Tablet [Tylenol with Codeine #3] 2018-12-09 22:25:00 Yes 1 tab, PO, Q6H, PRN Pain, X 7 day, # 30 tab, 0 Refill(s) Shahida Soto vancomycin + Sodium Chloride 0.9% IV 100 mL 2018-12-09 03:00:00 No Notes: TIME CRITICAL MEDICATION (Same As: Vancocin) For adult patients only: Round to nearest 250 mg per Medical Staff approval Shahiad Multaniann vancomycin + Sodium Chloride 0.9% IV 250 mL 2018-12-08 02:00:00 No 2001 mg: infuse over 2.5 hours For adult patients only: Round to nearest 250 mg per Medical Staff approval MEDICATION WASTE Product Size: 1000 mg Product Wasted: ___ mg Shahida Charles Dilaudid 2018-12-07 03:08:00 No Notes: (Byron e as: Dilaudid) Shahida Boling Naloxone 2018-12-06 17:49:00 No Notes: Same as Narcan Shahida Soto Ondansetron 2018-12-06 17:49:00 No Notes: (Same as: Zofran) MEDICATION WASTE Product Size: 4 mg Product Wasted: ___ mg Shahida Soto Flumazenil 2018-12-06 17:49:00 No Notes: (S zenaida as: Romazicon) Shahida Soto Hydromorphone 2018-12-06 17:49:00 No Notes: Same as: Dilaudid [facility] Fentanyl 2018-12-06 17:49:00 No Notes: (Same as: Sublimaze) Preservative free. [facility] Hydralazine 2018-12-06 17:49:00 No Notes: (Same as: Apresoline) Push over 5 minutes Shahida Boling dexamethasone (ANES) 2018-12-06 17:33:00 No Route: IV, Drug form: INJ, ONCE, Stop date: 12/06/18 12:33:00 CDT Shahida Soto ondansetron (ANES) 2018-12-06 17:33:00 No Route: IV, Drug form: INJ, ONCE, Stop date: 12/06/18 12:33:00 CDT [facility] ketOROLAC (ANES) 2018-12-06 17:33:00 No IV, ONCE [facility] fentaNYL (ANES) 2018-12-06 17:33:00 No Route: IV, Drug form: INJ, ONCE, Stop date: 12/06/18 12:33:00 CDT [facility] midazolam (ANES) 2018-12-06 17:33:00 No Route: IV, Drug form: SOLN, ONCE, Stop date: 12/06/18 12:33:00 CDT [facility] propofol (ANES) 2018-12-06 17:33:00 No Route: IV, Drug form: INJ, ONCE, Stop date: 12/06/18 12:33:00 [facility] 1000 mg 2018-12-06 16:45:00 No Route: IV, Drug form: INJ, Start date: 12/06/18 11:45:00 CDT, Stop date: 12/06/18 12:45:00 CDT [facility] Lactated Ringers Injection IV (ANES) 1000 mL 2018-12-06 16:45:00 No Route: IV, Total Volume: 1,000, Start date: 12/06/18 11:45:00 CDT, Stop date: 12/06/18 12:45:00 CDT Shahida Soto Calcium Chloride 0.0014 MEQ/ML / Potassi um [...] 03:00:00 No Notes: (S zenaida as: Lovenox) Shahida Soto Vancomycin 2018-12-04 03:00:00 No 2001 mg: infuse over 2.5 hours For adult patients only: Round to nearest 250 mg per Medical Staff approval [facility] Vancomycin 2018-12-04 02:09:00 No 2001 mg: [...] 30 day, Stop date: 01/02/19 21:06:00 CDT [facility] Glucagon 2018-12-04 02:07:00 No 1 mg, Route: IM, Drug form: PDR/INJ, PRN, Dosing Weight 126.364, kg, PRN Blood Glucose Results, Start date: 12/03/18 21:07:00 CDT, Duration: 30 day, Stop date: 01/02/19 21:06:00 CDT [facility] Bisacodyl 2018-12-04 02:07:00 No Notes: (Same As: Dulcolax, Bisco-Lax) [facility] Ondansetron 2018-12-04 02:07:00 No Notes: (Same as: Zofran) MEDICATION WASTE Product Size: 4 mg Product Wasted: ___ mg [facility] Melatonin 2018-12-04 02:07:00 No Notes: (Sa me as: Melatonin) Shahida Soto Acetaminophen 2018-12-04 02:07:00 No Notes: Do not exceed 4 gm/day. (Same as: Tylenol) [facility] Hydromorphone 2018-12-04 02:06:00 No Notes: Same as: Dilaudid [facility] Tramadol 2018-12-04 02:06:00 No Notes: Not to exceed 400mg/day. (Same As: Ultram) [facility] LR IV 1,000 mL 2018-12-04 02:05:00 No 1,000 mL, Rate: 125 ml/hr, Infuse over: 8 hr, Route: IV, Dosing Weight 126.364 kg, Total Volume: 1,000, Start date: 12/03/18 21:05:00 CDT, Duration: 30 day, Stop date: 01/02/19 21:04:00 CDT, 2.47, m2 [facility] Calcium Gluconate 2018-12-04 02:05:00 No Notes: WASTE: F/P - Sink; E - [employer] Trash [employer] [facility] Potassium Chloride 2018-12-04 02:05:00 No Notes: (Same as: K-Dur 20) "Do Not Crush" Give with food and full glass of water For patients unable to swallow tablet, dissolve in one half glass of water. Allow about 2 minutes for the tablets to disintegrate. Stir before giving to prepare slurry and administer. Please exclude Patient s with feeding tube less than 14 Serbian (Dobhoff, J-tube etc) and pediatric and patients. [facility] Magnesium Sulfate 2018-12-04 02:05:00 No Notes: WASTE: F/P - Sink; E - [facility] potassium phosphate 2018-12-04 02:05:00 No Notes: (Same as: K Phosphate.) Do not infuse phosphorous concurrently in the same line as TPN or IVF that contains calcium. For double lumen central lines, phosphorous may be infused in a separate lumen from TPN. 1 mMol phoshate has 1.47 mEq potassium Infuse over 4 hours [facility] sodium phosphate 2018-12-04 02:05:00 No Notes: Infuse over 4 hour. Do not infuse phosphorous concurrently in the same line as TPN or IVF that contains calcium. For double lumen central lines, phosphorous may be infused in a separate lumen from TPN. [facility] Nerissa cintron Magnesium Oxide 2018-12-04 02:05:00 No Notes: (Same as: Mag-Ox 400) Magnesium oxide [id number] elemental magnesium Dose=____mg magnesium oxide (___mg elemental [...] 20:56:00 CDT, Stop date: 12/03/18 20:56:00 CDT Il christie Soto Sodium Chloride 0.9% (Bolus) IV 2018-12-03 23:40:00 No 1,000 mL, 1000 ml/hr, Infuse Over: 1 hr, Route: IV, 1,000, Drug form: INJ, ONCE, Priority: STAT, Dosing Weight 126.364 kg, Start date: 12/03/18 18:40:00 CDT, Stop date: 12/03/18 18:40:00 CDT [facility] Morphine 2018-12-03 23:40:00 No 4 mg, Route: IVP, ONCE, Dosing Weight 126.364, kg, Priority: STAT, Start date: 12/03/18 18:40:00 CDT, Stop date: 12/03/18 18:40:00 CDT [facility] Vancomycin 2018-12-03 23:40:00 No 1,000 mg, Route: IVPB, ONCE, Dosing Weight 126.364, kg, Priority: STAT, Start date: 12/03/18 18:40:00 CDT, Stop date: 12/03/18 18:40:00 CDT, ABX Indication: Skin/Soft Tissue Infection [facility] Saline Flush 0.9% 2018-12-03 21:16:00 No Notes: (Same as: BD Posiflush) [facility] linezolid 600 mg oral tablet 2018-10-12 19:51:00 Yes 600 mg = 1 tab, PO, [id number], X 10 day, # 20 tab, 0 Refill(s), [facility] [id number] [facility] Morphine 2018-10-12 04:38:00 No Not es: (Same as:MORPhine Sulfate) [facility] linezolid 2018-10-11 20:00:00 No Notes: Protect from light. (Same as: Zyvox) [facility] Vancomycin 2018-10-11 19:00:00 No 2001 mg: infuse over 2.5 hours For adult patients only: Round to nearest 250 mg per Medical Staff approval MEDICATION WASTE Product Size: 1000 mg Product Wasted: ___ mg Shahida Soto Lovenox 2018-10-11 17:00:00 No Notes: (Same as: Lovenox) Shahida Soto Vancomycin 2018-10-11 16:46:00 No 1 ea, Route: MISC, ONCALL, Dosing Weight 133.182, kg, Priority: STAT, Start date: 10/11/18 10:46:00 BUTT MAKER, Duration: 1 day, Stop date: 10/12/18 10:45:00 BUTT MAKER, Pharmacy to dose, ABX Indication: Urinary Tract Infection [facility] Ambien 2018-10-11 16:46:00 No Notes: (Same As: Ambien) [facility] Acetaminophen 300 MG / Codeine Phosphate 30 MG Oral Tablet [Tylenol with Codeine #3] 2018-10-11 16:46:00 No Notes: Do not exceed 4gm/day of acetaminophen. (Same as: Tylenol with Codeine # 3) [facility] Dextrose 50% Syringe 2018-10-11 16:12:00 No 25 gm, 50 mL, Route: IVP, Drug Form: INJ, Dosing Weight 133.182, kg, PRN, PRN Blood Glucose Results, Start date: 10/11/18 10:12:00 BUTT MAKER, Duration: 30 day, Stop date: 11/10/18 11:11:00 CDT [facility] Glucagon 2018-10-11 16:12:00 No 1 mg, Route: IM, Drug form: PDR/INJ, PRN, Dosing Weight 133.182, kg, PRN Blood Glucose Results, Start date: 10/11/18 10:12:00 BUTT MAKER, Duration: 30 day, Stop date: 11/10/18 11:11:00 T [facility] Docusate 2018-10-11 15:00:00 No Notes: (Same as: Colace) (Do Not Crush) [facility] Dextrose 50% Syringe 2018-10-11 14:50:00 No 25 gm, 50 mL, Route: IVP, Drug Form: INJ, Dosing Weight 133.182, kg, PRN, PRN Blood Glucose Results, Start date: 10/11/18 8:50:00 BUTT MAKER, Duration: 30 day, Stop date: 11/10/18 9:49:00 CDT [facility] Glucagon 2018-10-11 14:50:00 No 1 mg, Route: IM, Drug form: PDR/INJ, PRN, Dosing Weight 133.182, kg, PRN Blood Glucose Results, Start date: 10/11/18 8:50:00 BUTT MAKER, Duration: 30 day, Stop date: 11/10/18 9:49:00 CDT Shahida Multaniann Ondansetron 2018-10-11 14:50:00 No Notes: (Same as: [...] Hydrocodone Bitartrate 5 MG Oral Tabl et [[place] 5/325] 2018-10-11 09:20:00 No 1 tab, Route: PO, Drug Form: TAB, Dosing Weight 133.005, kg, ONCE, STAT, Start date: 10/11/18 3:20:00 BUTT MAKER, Stop date: 10/11/18 3:20:00 BUTT MAKER [facility] Ibuprofen 2018-10-11 07:55:00 No 600 mg, Route: PO, Drug form: TAB, ONCE, Dosing Weight 133.005, kg, Priority: STAT, Start date: 10/11/18 1:55:00 BUTT MAKER, Stop date: 10/11/18 1:55:00 BUTT MAKER [facility] orimicki Soto Vancomycin 2018-10-11 05:27:00 No 2001 mg: infuse [...] kg, Priority: STAT, Start date: 09/06/18 0:58:00 BUTT MAKER, Stop date: 09/06/18 0:58:00 BUTT MAKER Shahida Soto Zofran 2018-09-06 06:58:00 No 4 mg, Route: IVP, Drug form: INJ, ONCE, Dosing Weight 120.455, kg, Priority: STAT, Start date: 09/06/18 0:58:00 BUTT MAKER, Stop date: 09/06/18 0:58:00 [facility] Sodium Chloride 0.9% (Bolus) IV 2018-09-06 06:57:00 No 1,000 mL, Infuse Over: 1 hr, Route: IV, ONCE, Priority: STAT, Dosing Weight 120.455 kg, Start date: 09/06/18 0:57:00 BUTT MAKER, Stop date: 09/06/18 0:57:00 BUTT MAKER [facility] Acetaminophen 300 MG / Codeine Phosphate 30 MG Oral Tablet [Tylenol with Codeine #3] 2018-08-30 19:59:00 No 1 tab, PO, Q12H, PRN Pain, X 5 day, # 10 tab, 0 Refill(s) [facility] heparin sodium, porcine 2500 UNT/ML Injectable Solution 2018-08-30 03:00:00 No Notes: porcine heparin [facility] Vancomycin 2018-08-28 02:00:00 No 2001 mg: infuse over 2.5 hours For adult patients only: Round to nearest 250 mg per Medical Staff approval MEDICATION WASTE Product Size: 1000 mg Product Wasted: ___ mg [facility] Saline Flush 0.9% 2018-08-27 22:00:00 No Notes: (Same as: BD Posiflush) [facility] Lidocaine Hydrochloride 10 MG/ML Injectable Solution 08-27 22:00:00 No Notes: (Same as: Xylocaine) [facility] Saline Flush 0.9% 2018-08-27 21:38:00 No Notes: (Same as: BD Posiflush) [facility] morphine Sulfate 2018-08-26 21:06:00 No Notes: (Same as:MORPhine Sulfate) [facility] vancomycin + Sodium Chloride 0.9% IV 250 mL 2018-08-25 22:00:00 No 2001 mg: infuse over 2.5 hours For adult patients only: Round to nearest 250 mg per Medical Staff approval MEDICATION WASTE Product Size: 1000 mg Product Wasted: ___ mg [facility] vancomycin + Sodium Chloride 0.9% IV 250 mL 2018-08-25 04:00:00 No 2001 mg: infuse over 2.5 hours For adult patients only: Round to nearest 250 mg per Medical Staff approval MEDICATION WASTE Product Size: 1000 mg Product Wasted: ___ mg [facility] Tramadol 2018-08-25 02:00:00 No Notes: Not to exceed 400mg/day. (Same As: Ultram) [facility] sennosides, JAIL 2018-08-25 01:48:00 No Notes: (Same as: Senokot) [facility] Tessalon Perles 2018-08-25 01:48:00 No Notes: (Same As: Tessalon Perles) "Do Not Crush" [facility] Melatonin 2018-08-25 01:48:00 No Notes: (Sa me as: Melatonin) [facility] Morphine 2018-08-25 01:47:00 No 2 mg, 1 mL, Route: IVP, Drug form: SOLN, Q4H, Dosing Weight 127.727, kg, PRN Pain Score 7-10, Start date: 08/24/18 19:47:00 BUTT MAKER, Duration: 30 day, Stop date: 09/23/18 19:46:00 [facility] Acetaminophen 325 MG / Hydrocodone Bitartrate 10 MG Or al Tablet [[place] 10/325] 2018-08-25 01:47:00 No Note s: Do not exceed 4gm/day of acetaminophen. (Same as: [place] 325/10) [facility] Vancomycin 2018-08-24 21:00:00 No 2001 mg: infuse over 2.5 hours For adult patients only: Round to nearest 250 mg per Medical Staff approval MEDICATION WASTE Product Size: 1000 mg Product Wasted: ___ mg [facility] Dextrose 50% Syringe 2018-08-24 20:32:00 No 12.5 gm, 25 mL, Route: IVP, Drug Form: INJ, Dosing Weight 136.364, kg, PRN, PRN Blood Glucose Results, Start date: 08/24/18 14:32:00 BUTT MAKER, Duration: 30 day, Stop date: 09/23/18 14:31:00 BUTT MAKER [facility] Glucagon 2018-08-24 20:32:00 No 1 mg, Route: IM, Drug form: PDR/INJ, PRN, Dosing Weight 136.364, kg, PRN Blood Glucose Results, Start date: 08/24/18 14:32:00 BUTT MAKER, Duration: 30 day, Stop date: 09/23/18 14:31:00 [facility] Ondansetron 2018-08-24 20:32:00 No Notes: (Same as: Zofran) MEDICATION WASTE Product Size: 4 mg Product Wasted: ___ mg [facility] Acetaminophen 2018-08-24 20:32:00 No Notes: Do not exceed 4 gm/day. (Same as: Tylenol) [facility] Morphine 2018-08-24 20:22:00 No 4 mg, Route: IVP, ONCE, Dosing Weight 120.455, kg, Start date: 08/24/18 14:22:00 BUTT MAKER, Stop date: 08/24/18 14:22:00 BUTT MAKER Shahida Soto Zofran 2018-08-24 13:41:00 No Notes: (Same as: Zofran) MEDICATION WASTE Product Size: 4 mg Product Wasted: ___ mg Shahida Soto Morphine 2018-08-24 13:41:00 No Not es: (Same as:MORPhine Sulfate) Shahida Soto Vancomycin 2018-08-24 13:35:00 No 2001 mg: infuse over 2.5 hours For adult patients only: Round to nearest 250 mg per Medical Staff approval MEDICATION WASTE Product Size: 1000 mg Product Wasted: ___ mg Shahida Soto doxycycline hyclate 100 MG Oral Tablet 2018-05-22 17:14:00 No 100 mg = 1 tab, PO, Q12H, X 10 day, # 20 tab, 0 Refill(s), Pharmacy: [facility] [id number] [facility] Docusate Sodium 100 MG Oral Capsule [Colace] 2018-05-22 17:08:00 No 100 mg = 1 cap, PO, BID, PRN as needed for constipation, # 14 cap, 0 Refill(s), Pharm[facility] [id number] [facility] Acetaminophen 300 MG / Codeine Phosphate 30 MG Oral Tablet [Tylenol with Codeine #3] 2018-05-22 17:08:00 No 1 tab, PO, Q6H, PRN Pain Score 6-10, X 5 day, # 20 tab, 0 Refill(s) [facility] Nerissa cintron Docusate Sodium 100 MG Oral Capsule [Colace] 2018-05-22 14:00:00 No Notes: (Same as: Colace) (Do Not Crush) [facility] Acetaminophen 325 MG / Hydrocodone Bitartrate 5 MG Oral Tabl et [[place] 5/325] 2018-05-21 15:02:00 No Notes: (Same as: [place] 325/5) Do not exceed 4gm/day of acetaminophen. Shahida Multania vancomycin + Sodium Chloride 0.9% IV 250 mL 2018-05-20 08:00:00 No 2000 mg: infuse over 2.5 hours For adult patients only: Round to nearest 250 mg per Medical Staff approval MEDICATION WASTE Product Size: 1000 mg Product Wasted: ___ mg Shahida Soto vancomycin 2018-05-19 20:00:00 No 2001 mg: infuse [...] Size: 2000 mg Product Wasted: ___ mg [facility] Phenergan 2018-05-19 15:36:00 No Notes: (Sa me as: Phenergan) Shahida Soto Morphine 2018-05-19 04:11:00 No 2 mg, 1 mL, Route: IVP, Drug form: SOLN, ONCE, Dosing Weight 120.909, kg, Start date: 05/18/18 23:11:00 CDT, Stop date: 05/18/18 23:11:00 CDT [facility] morphine Sulfate 2018-05-19 02:31:00 No Notes: (Same as:MORPhine Sulfate) Shahida Soto Acetaminophen 300 MG / Codeine Phosphate 30 MG Oral Tablet [Tylenol with Codeine #3] 2018-05-18 18:52:00 No Notes: Do not exceed 4gm/day of acetaminophen. (Same as: Tylenol with Codeine # 3) [facility] Meperidine 2018-05-18 18:51:00 No Notes: (S zenaida As: Demerol) [facility] Diphenhydramine 2018-05-18 18:51:00 No Notes: (Same as: Benadryl) [facility] Ondansetron 2018-05-18 18:51:00 No Notes: (Same as: Zofran) MEDICATION WASTE Product Size: 4 mg Product Wasted: ___ mg [facility] Promethazine 2018-05-18 18:51:00 No 6.25 mg, Route: IVPB, ONCE, Dosing Weight 120.909, kg, PRN Nausea & Vomiting, Start date: 05/18/18 13:51:00 CDT [facility] Naloxone 2018-05-18 18:51:00 No Notes: Same as Narcan [facility] Hydromorphone 2018-05-18 18:51:00 No Notes: Same as: Dilaudid [facility] Fentanyl 2018-05-18 18:51:00 No 50 microgram, Route: IVP, Q5Min, Dosing Weight 120.909, kg, PRN Pain Score 7-10, Priority: Routine, Start date: 05/18/18 13:51:00 CDT, Duration: 2 doses or times, Stop date: Limited # of times [facility] Flumazenil 2018-05-18 18:51:00 No Notes: (S zenaida as: Romazicon) [facility] Albuterol 0.83 MG/ML Inhalant Solution 2018-05-18 18:51:00 No Notes: SEE RT DOCUMENTATION (Same as: Proventil) [facility] Ketorolac 2018-05-18 18:51:00 No 4 days MEDICATION WASTE Product Size: 30 mg Product Wasted: ___ mg [facility] Labetalol 2018-05-18 18:51:00 No Notes: (Same as: Normodyne, Trandate) Push over 2 minutes Give bolus over 2-3 minutes. [facility] Hydralazine 2018-05-18 18:51:00 No Notes: (Same as: Apresoline) Push over 5 minutes [facility] Acetaminophen 2018-05-18 18:51:00 No Notes: Max acetaminophen 4000 mg/day (4 gm/day). (Same as: Tylenol Extra Strength) [facility] Oxycodone 2018-05-18 18:51:00 No Notes: (Sa me as: Roxicodone) [facility] lidocaine (ANES) 2018-05-18 18:43:00 No Route: IV, Drug form: INJ, ONCE, Stop date: 05/18/18 13:43:00 CDT Dl Soto ondansetron (ANES) 2018-05-18 18:43:00 No Route: IV, Drug form: INJ, ONCE, Stop date: 05/18/18 13:43:00 CDT Dl Soto propofol (ANES) 2018-05-18 18:43:00 No Route: IV, Drug form: INJ, ONCE, Stop date: 05/18/18 13:43:00 CDT [facility] dexamethasone (ANES) 2018-05-18 18:43:00 No Route: IV, Drug form: INJ, ONCE, Stop date: 05/18/18 13:43:00 CDT [facility] ketOROLAC (ANES) 2018-05-18 18:43:00 No IV, ONCE [facility] fentaNYL (ANES) 2018-05-18 18:43:00 No Route: IV, Drug form: INJ, ONCE, Stop date: 05/18/18 13:43:00 CDT [facility] midazolam (ANES) 2018-05-18 18:43:00 No Route: IV, Drug form: SOLN, ONCE, Stop date: 05/18/18 13:43:00 CDT [facility] vancomycin (KAPILS) 1000 mg 2018-05-18 18:16:00 No Route: IV, Drug form: INJ, Start date: 05/18/18 13:16:00 CDT, Stop date: 05/18/18 14:16:00 CDT [facility] Lactated Ringers Injection IV (ANES) 1000 mL 2018-05-18 18:16:00 No Route: IV, Total Volume: 1,000, Start date: 05/18/18 13:16:00 CDT, Stop date: 05/18/18 14:16:00 CDT [facility] Sodium Chloride 0.9% IV 1,000 mL 2018-05-18 18:01:00 No 1,000 mL, Rate: 25 ml/hr, Infuse over: 40 hr, Route: IV, Dosing Weight 120.909 kg, Total Volume: 1,000, Start date: 05/18/18 13:01:00 CDT, Duration: 30 day, Stop date: 06/17/18 13:00:00 CDT, 2.41, m2 [facility] Calcium Chloride 0.0014 MEQ/ML / Potassi um Chloride 0.004 MEQ/ML / Sodium Chloride 0.103 MEQ/ML / Sodium Lactate 0.028 MEQ/ML Injectable Solution 2018-05-18 18:01:00 No 1,000 mL, Rate: 25 ml/hr, Infuse over: 40 hr, Route: IV, Dosing Weight 120.909 kg, Total Volume: 1,000, Start date: 05/18/18 13:01:00 CDT, Duration: 30 day, Stop date: 06/17/18 13:00:00 CDT, 2.41, m2 [facility] vancomycin + Sodium Chloride 0.9% IV 250 mL 2018-05-17 19:00:00 No 1,000 mg, Route: IVPB, [id number], Dosing Weight 119.091, kg, Start date: 05/17/18 14:00:00 CDT, Duration: 7 day, Stop date: 05/24/18 2:00:00 CDT, ABX Indication: Skin/Soft Tissue Infection [facility] influenza virus vaccine, inactivated 2018-05-17 08:20:35 No Notes: (Same as: Fluzone Quadrivalent, Fluarix Quadrivalent) For 3 years of age and older (0.5 mL IM) Shake well before use [facility] Vancomycin 2018-05-17 08:00:00 No 1,000 mg, Route: IVPB, Drug form: INJ, [id number], Dosing Weight 119.091, kg, Start date: 05/17/18 3:00:00 CDT, Duration: 7 day, Stop date: 05/23/18 15:00:00 CDT, ABX Indication: Pneumonia [facility] Enoxaparin 2018-05-17 08:00:00 No Notes: (S zenaida as: Lovenox) [facility] Saline Flush 0.9% 2018-05-17 07:46:00 No Notes: (Same as: BD Posiflush) [facility] Lactated Ringers IV 1,000 mL 2018-05-17 07:46:00 No 1,000 mL, Rate: 75 ml/hr, Infuse over: 13.3 hr, Route: IV, Dosing Weight 119.091 kg, Total Volume: 1,000, Start date: 05/17/18 2:46:00 CDT, Duration: 30 day, Stop date: 06/16/18 2:45:00 CDT, 2.39, m2 [facility] Ondansetron 2018-05-17 07:46:00 No Notes: (Same as: Zofran) MEDICATION WASTE Product Size: 4 mg Product Wasted: ___ mg [facility] Acetaminophen 2018-05-17 07:46:00 No Notes: Do not exceed 4 gm/day. (Same as: Tylenol) [facility] Morphine 2018-05-17 07:46:00 No 2 mg, 1 mL, Route: IVP, Drug form: SOLN, Q4H, Dosing Weight 119.091, kg, PRN Pain Score 7-10, Start date: 05/17/18 2:46:00 CDT, Duration: 30 day, Stop date: 06/16/18 2:45:00 CDT [facility] Ondansetron 2018-05-17 06:21:00 No Notes: (Same as: Zofran) MEDICATION WASTE Product Size: 4 mg Product Wasted: ___ mg [facility] Morphine 2018-05-17 06:21:00 No Not es: (Same as:MORPhine Sulfate) [facility] Vancomycin 2018-05-17 05:38:00 No 2001 mg: infuse over 2.5 hours For adult patients only: Round to nearest 250 mg per Medical Staff approval MEDICATION WASTE Product Size: 1000 mg Product Wasted: ___ mg [facility] Nitrofurantoin Monohyd/M-Cryst (Macrobid 100 Mg Capsul e) 100 Mg CAPSULE Nitrofurantoin Monohyd/M-Cryst (Macrobid 100 Mg Capsule) 100 Mg CAPSULE 2018-02-05 01:42:00 2020-04-13 00:00:00 No 100 Twice A Day [facility] Ondansetron (Zofran Odt) 4 Mg TAB.RAPDIS Ondansetron ( Zofran Odt) 4 Mg TAB.RAPDIS 2018-02-05 01:42:00 2020-04-13 00:00:00 No 4 Every 6 Hours as needed for Nausea [facility] Methocarbamol 750 MG Oral Tablet [Robaxin] 2018-01-13 02:51:00 Yes 750 mg = 1 tab, PO, TID, PRN as needed for pain, X 7 day, # 30 tab, 0 Refill(s) [facility] tramadol hydrochloride 50 MG Oral Tablet 2018-01-13 [...] Hydrocodone Nereyda trate 7.5 MG Oral Tablet [[place] 7.5/325] 2018-01-13 02:45:00 No Notes: Same as [place] 325-7.5mg Do not exceed 4gm/day of acetaminophen. Michael Soto Valium 2018-01-13 01:08:00 No Notes: (Same as: Valium) Shahida Soto Ketorolac 2018-01-13 01:08:00 No 4 days MEDICATION WASTE Product Size: 30 mg Product Wasted: ___ mg Shahida Soto Tylenol 2018-01-12 21:33:00 No Notes: Do not exceed 4 gm/day. (Same as: Tylenol) Shahida Charles Buspirone 2016-12-31 17:00:00 No Notes: ([facility] As: BuSpar) Shahida Charles Phenergan 2016-12-31 14:31:00 No Notes: ([facility] as: Phenergan) Shahida [facility] Phenergan 25 mg oral tablet 2016-12-31 14:31:00 Yes 25 mg, PO, Q6H, PRN Nausea & Vomiting, X 5 day, # 20 tab, 0 Refill(s), Pharmacy: [facility] [id number] Shahida Soto Sodium Chloride 0.154 MEQ/ML Injectable Solution 2016-12-31 14:3 0:00 No 1,000 mL, Rate: 150 ml/hr, I nfuse over: 6.7 hr, Route: IV, Dosing Weight 109 kg, Total Volume: 1,000, Start date: 12/31/16 9:30:00 CDT, Duration: 30 day, Stop date: 01/30/17 9:29:00 CDT [facility] Trazodone 2016-12-31 14:25:00 No Notes: (Sa me As: Desyrel) [facility] Cipro 2016-12-31 14:00:00 No Notes: May interfere w/enteral feedings - Take 1 hr before or 2 hrs after antacids, dairy pdt & minerals. On empty stomach. [facility] Flagyl 2016-12-31 14:00:00 No Notes: (Same as: Flagyl) Take with food/ avoid alcohol [facility] Fluoxetine 2016-12-31 14:00:00 No Notes: (S zenaida as: Prozac) [facility] Levsin SL 2016-12-31 13:41:00 No Notes: (Same as: Levsin) Take 30 min before meal [facility] Promethazine 2016-12-31 10:15:00 No Notes: Do not give IV push. (Same as: Phenergan) [facility] Zofran 2016-12-31 09:33:00 No 4 mg, Route: IVP, Drug form: INJ, ONCE, Dosing Weight 109.091, kg, Priority: STAT, Start date: 12/31/16 4:33:00 CDT, Stop date: 12/31/16 4:33:00 CDT [facility] Morphine 2016-12-31 09:30:00 No 4 mg, Route: IVP, ONCE, Dosing Weight 109.091, kg, Priority: STAT, Start date: 12/31/16 4:30:00 CDT, Stop date: 12/31/16 4:30:00 CDT [facility] Rocephin 2016-12-31 06:26:00 No Notes: (Same As: Rocephin). Use with 100 mL NS and infuse over 30 min MEDICATION WASTE Product Size: 1000 mg Product Wasted: ___ mg [facility] Ondansetron 2016-12-31 04:55:00 No Notes: (Same as: Zofran) MEDICATION WASTE Product Size: 4 mg Product Wasted: ___ mg [facility] Morphine 2016-12-31 04:55:00 No Not es: (Same as:MORPhine Sulfate) [facility] Saline Flush 0.9% 2016-12-31 04:55:00 No Notes: (Same as: BD Posiflush) Shahida Soto Sodium Chloride 0.154 MEQ/ML Injectable Solution 2016-12-31 04:5 5:00 No 1,000 mL, 2,000 ml/hr, Infus e Over: 30 minutes, Route: IV, 1,000, Drug form: INJ, ONCE, Priority: STAT, Dosing Weight 109.091 kg, Start date: 12/30/16 23:55:00 CDT, Duration: 1 doses or times, Stop date: 12/30/16 23:55:00 CDT Shahida Soto Ciprofloxacin 500 MG Oral Tablet [Cipro] 2016-12-25 23:04:00 Yes 500 mg = 1 tab, PO, Q12H, X 7 day, # 14 tab, 0 Refill(s), Pharmacy: [facility] [id number] Shahida Soto Acetaminophen 300 MG / Codeine Phosphate 30 MG Oral Tablet [Tylenol with Codeine #3] 2016-12-25 23:04:00 No 1 - 2 tab, PO, Q4H, PRN Pain, X 2 day, # 10 tab, 0 Refill(s) Shahida Soto Metronidazole 500 MG Oral Tablet [Flagyl] 2016-12-25 23:04:00 Yes 500 mg = 1 tab, PO, BID, X 7 day, # 14 tab, 0 Refill(s), Pharmacy: [facility] [id number] Shahida Soto Sodium Chloride 0.154 MEQ/ML Injectable Solution 2016-12-25 22:5 3:00 No 500 mL, 500 ml/hr, Infuse Ov er: 1 hr, Route: IV, 500, Drug form: INJ, ONCE, Priority: STAT, Dosing Weight 109.091 kg, Start date: 12/25/16 17:53:00 CDT, Duration: 1 doses or times, Stop date: 12/25/16 17:53:00 CDT Shahida Soto Acetaminophen 300 MG / Codeine Phosphate 30 MG Oral Tablet [Tylenol with Codeine #3] 2016-12-25 22:53:00 No Notes: Do not exceed 4gm/day of acetaminophen. (Same as: Tylenol with Codeine # 3) Shahida Soto Flagyl 2016-12-25 22:53:00 No Notes: (Same as: Flagyl) Avoid alcohol. Shahida Soto Cipro 2016-12-25 22:53:00 No Notes: Do not refrigerate Shahida Soto Saline Flush 0.9% 2016-12-25 19:20:00 No Notes: (Same as: BD Posiflush) Shahida Soto Famotidine 40 MG Oral Tablet [Pepcid] 2016-07-20 [...] kg, Priority: STAT, Start date: 07/19/16 21:44:00 BUTT MAKER, Stop date: 07/19/16 21:44:00 BUTT MAKER Il christie Stoo Ketorolac 2016-07-20 03:28:00 No 30 mg, Route: IVP, Drug form: INJ, ONCE, Dosing Weight 104.545, kg, Priority: STAT, Start date: 07/19/16 21:28:00 BUTT MAKER, Stop date: 07/19/16 21:28:00 BUTT MAKER Il christie Soto Zofran 2016-07-20 01:40:00 No Notes: (Same as: Michael) MEDICATION WASTE Product Size: 4 mg Product Wasted: ___ mg Shahida Soto Famotidine 20 MG Oral Tablet [Pepcid] 2016-07-20 01:40:00 N o 20 mg, 1 tab, Route: PO, ONCE, Dosing Weight 104.545, kg, Start date: 07/19/16 19:40:00 BUTT MAKER, Stop date: 07/19/16 19:40:00 BUTT MAKER Dl Soto Sodium Chloride 0.154 MEQ/ML Injectable Solution 2016-07-20 01:4 0:00 No 1,000 mL, 1,000 ml/hr, Infus e Over: 1 hr, Route: IV, 1,000, Drug form: INJ, ONCE, Priority: STAT, Dosing Weight 104.545 kg, Start date: 07/19/16 19:40:00 BUTT MAKER, Duration: 1 doses or times, Stop date: 07/19/16 19:40:00 BUTT MAKER [facility] GI cocktail 2016-07-20 01:39:00 No 30 mL, Route: PO, Dosing Weight 104.545, kg, ONCE, STAT, Start date: 07/19/16 19:39:00 BUTT MAKER, Stop date: 07/19/16 19:39:00 BUTT MAKER [facility] Carafate 2016-07-20 01:39:00 No Notes: May interfere w/enteral feeds - Take 1 hr before or 2 hr after antacids, dairy pdt, meals & minerals - On empty stomach. (Same As: Carafate) Efraínisaiah evans [facility] Cyclobenzaprine hydrochloride 10 MG Oral Tablet [Flexeril] 2016-04-23 08:02:00 Yes 10 mg, PO, TID, PRN Muscle Spasm, X 10 day, # 30 tab, 0 Refill(s) [facility] tramadol hydrochloride 50 MG Oral Tablet 2016-04-23 06:34:00 No 50 mg, Route: PO, Drug form: TAB, ONCE, Dosing Weight 94.091, kg, Priority: STAT, Start date: 04/23/16 1:34:00 CDT, Stop date: 04/23/16 1:34:00 CDT [facility] Valium 2016-04-23 06:33:00 No 10 mg, Route: PO, ONCE, Dosing Weight 94.091, kg, Start date: 04/23/16 1:33:00 CDT, Stop date: 04/23/16 1:33:00 CDT [facility] Ketorolac 2016-04-23 06:33:00 No 60 mg, Route: IM, Drug form: INJ, ONCE, Dosing Weight 94.091, kg, Priority: STAT, Start date: 04/23/16 1:33:00 CDT, Stop date: 04/23/16 1:33:00 [facility] Methocarbamol 750 MG Oral Tablet [Robaxin] 2016-04-16 08:36:00 Yes 750 mg = 1 tab, PO, TID, PRN as needed for pain, X 10 day, # 30 tab, 0 Refill(s) [facility] Acetaminophen 300 MG / Codeine Phosphate 30 MG Oral Tablet [Tylenol with Codeine #3] 2016-04-16 08:36:00 No 1 - 2 tab, PO, Q4H, PRN Pain, X 2 day, # 24 tab, 0 Refill(s) [facility] Flexeril 2016-04-16 08:20:00 No 10 mg, Route: PO, ONCE, Dosing Weight 103.182, kg, Priority: STAT, Start date: 04/16/16 3:20:00 CDT, Stop date: 04/16/16 3:20:00 CDT [facility] Zofran ODT 2016-04-16 07:09:00 No 4 mg, Route: PO, Drug form: TABDIS, ONCE, Dosing Weight 103.182, kg, Priority: STAT, Start date: 04/16/16 2:09:00 CDT, Stop date: 04/16/16 2:09:00 CDT [facility] Dilaudid 2016-04-16 07:09:00 No 1 mg, Route: IM, ONCE, Dosing Weight 103.182, kg, Priority: STAT, Start date: 04/16/16 2:09:00 CDT, Stop date: 04/16/16 2:09:00 CDT [facility] promethazine 12.5 mg oral tablet 2016-04-14 08:15:00 Yes 12.5 mg = 1 tab, PO, Q6H, PRN Nausea & Vomiting, X 5 day, # 20 tab, 0 Refill(s) [facility] Hyoscyamine Sulfate 0.125 MG Sublingual Tablet [Levsin] 2016-04-14 08:14:00 Yes 0.125 mg = 1 ta b, SL, Q6H, PRN abdominal spasm, # 28 tab, 0 Refill(s) [facility] omeprazole 40 mg oral delayed release capsule 2016-04-14 08:13:0 0 Yes 40 mg = 1 cap, PO, Daily, # 30 cap, 0 Refill(s) [facility] Promethazine 2016-04-14 08:04:00 No Notes: Do not give IV push. (Same as: Phenergan) [facility] GI cocktail 2016-04-14 07:12:00 No 30 mL, Route: PO, Dosing Weight 103.182, kg, ONCE, STAT, Start date: 04/14/16 2:12:00 CDT, Stop date: 04/14/16 2:12:00 CDT [facility] pantoprazole 2016-04-14 07:12:00 No 40 mg, Route: IVP, ONCE, Dosing Weight 103.182, kg, Priority: STAT, Start date: 04/14/16 2:12:00 CDT, Stop date: 04/14/16 2:12:00 CDT [facility] Morphine 2016-04-14 05:57:00 No 4 mg, Route: IVP, Drug form: INJ, ONCE, Dosing Weight 103.182, kg, Priority: STAT, Start date: 04/14/16 0:57:00 CDT, Stop date: 04/14/16 0:57:00 [facility] pantopraz[facility] 2016-04-14 05:57:00 No 40 mg, Route: IVP, ONCE, Dosing Weight 103.182, kg, For IV push reconstitute with 10 ml 0.9% sodium chloride and push over at least 3 minutes, Priority: STAT, Start date: 04/14/16 0:57:00 CDT, Stop date: 04/14/16 0:57:00 CDT [facility] Ondansetron 2016-04-14 05:57:00 No 4 mg, Route: IVP, ONCE, Dosing Weight 103.182, kg, Priority: STAT, Start date: 04/14/16 0:57:00 CDT, Stop date: 04/14/16 0:57:00 CDT [facility] Sodium Chloride 0.154 MEQ/ML Injectable Solution 2016-04-14 05:5 7:00 No 1,000 mL, 2,000 ml/hr, Infus e Over: 30 minutes, Route: IV, ONCE, Priority: STAT, Dosing Weight 103.182 kg, Start date: 04/14/16 0:57:00 CDT, Duration: 1 doses or times, Stop date: 04/14/16 0:57:00 CDT [facility] Saline Flush 0.9% 2016-04-14 05:57:00 No Notes: [...] QID, # 28 tab, 0 Refi ll(s) [facility] Metoclopramide 10 MG Oral Tablet [Reglan] 2016-02-24 05:48:00 Yes 10 mg = 1 tab, PO, QID-Before Meals, X 10 day, # 40 tab, 0 Refill(s) [facility] hCarles Morphine 2016-02-24 05:09:00 No 4 mg, Route: IVP, Drug form: INJ, ONCE, Dosing Weight 100.455, kg, Priority: STAT, Start date: 02/24/16 0:09:00 CDT, Stop date: 02/24/16 0:09:00 [facility] S[facility] 2016-02-24 04:50:00 No 1 gm, Route: IV, ONCE, Dosing Weight 100.455, kg, Start date: 02/23/16 23:50:00 CDT, Stop date: 02/23/16 23:50:00 CDT [facility] Zofran 2016-02-24 04:34:00 No 4 mg, Route: IVP, Drug form: INJ, ONCE, Dosing Weight 100.455, kg, Priority: STAT, Start date: 02/23/16 23:34:00 CDT, Stop date: 02/23/16 23:34:00 CDT Il christie Soto Sodium Chloride 0.154 MEQ/ML Injectable Solution 2016-02-24 04:3 4:00 No 1,000 mL, 1,000 ml/hr, Infus e Over: 1 hr, Route: IV, ONCE, Priority: STAT, Dosing Weight 100.455 kg, Start date: 02/23/16 23:34:00 CDT, Duration: 1 doses or times, Stop date: 02/23/16 23:34:00 CDT Shahida Soto Saline Flush 0.9% 2016-02-24 03:26:00 No Notes: [...] 22:59:00 CDT, Stop date: 01/16/16 22:59:00 CDT Il christie Soto Morphine 2016-01-17 02:57:00 No Not es: (Same [...] Size: 4 mg Product Wasted: ___ mg [facility] Famotidine 2015-10-13 08:13:00 No Notes: (Same as: Pepcid) Can be dilute in 5-10cc NS IVP: Slow IV push over at least 2 minutes. [facility] GI cocktail 2015-10-13 08:13:00 No Notes: G.I. Cocktail = antacid with simethicone 22.5 mL - lidocaine viscous 7.5 mL [facility] Saline Flush 0.9% 2015-10-13 08:13:00 No Notes: (Same as: BD Posiflush) [facility] Sodium Chloride 0.154 MEQ/ML Injectable Solution 2015-10-13 08:1 3:00 No 1,000 mL, 1000 ml/hr, Infuse Over: 1 hr, Route: IV, 1,000, Drug form: INJ, ONCE, Priority: STAT, Dosing Weight 101.818 kg, Start date: 10/13/15 2:13:00, Duration: 1 doses or times, Stop date: 10/13/15 2:13:00 [facility] Diphenhydramine 2015-07-04 06:52:00 No 25 mg, Route: IVP, ONCE, Dosing Weight 107.273, kg, Priority: STAT, Start date: 07/04/15 0:52:00, Stop date: 07/04/15 0:52:00 [facility] Famotidine 2015-07-04 06:52:00 No 20 mg, Route: IVP, ONCE, Dosing Weight 107.273, kg, Priority: STAT, Start date: 07/04/15 0:52:00, Stop date: 07/04/15 0:52:00 [facility] Morphine 2015-07-04 06:52:00 No 4 mg, Route: IVP, ONCE, Dosing Weight 107.273, kg, Priority: STAT, Start date: 07/04/15 0:52:00, Stop date: 07/04/15 0:52:00 [facility] Sodium Chloride 0.154 MEQ/ML Injectable Solution 2015-07-04 06:5 2:00 No 1,000 mL, 1,000 ml/hr, Infus e Over: 1 hr, Route: IV, ONCE, Priority: STAT, Dosing Weight 107.273 kg, Start date: 07/04/15 0:52:00, Duration: 1 doses or times, Stop date: 07/04/15 0:52:00 Michael [facility]gar [facility] GI cocktail 2015-07-04 06:52:00 No 30 mL, Route: PO, Dosing Weight 107.273, kg, ONCE, STAT, Start date: 07/04/15 0:52:00, Stop date: 07/04/15 0:52:00 [facility] Acetaminophen 325 MG / Hydrocodone Bitartrate 5 MG Oral Tabl et 2015-05-17 10:39:00 No Notes: (Sa me as: [place] 325/5) Do not exceed 4gm/day of acetaminophen. [facility] Ibuprofen 2015-05-17 07:14:00 No 600 mg, Route: PO, ONCE, Dosing Weight 112.273, kg, Priority: STAT, Start date: 05/17/15 2:14:00, Stop date: 05/17/15 2:14:00 [facility] omeprazole 40 mg oral delayed release capsule 2015-05-15 12:39:0 0 Yes 40 mg = 1 cap, PO, Daily, # 30 cap, 0 Refill(s) [facility] Dicyclomine Hydrochloride 20 MG Oral Tablet [Bentyl] 2 12:38:00 Yes 20 mg = 1 tab, PO, QID-Before Meals, # 2 8 tab, 0 Refill(s) [facility] Ondansetron 4 MG Oral Tablet [Zofran] 2015-05-15 12:38:00 Y es 4 mg = 1 tab, PO, TID, X 5 day, # 15 tab, 0 Refill(s) [facility] Acetaminophen 325 MG / Hydrocodone Nereyda trate 7.5 MG Oral Tablet [[place] 7.5/325] 2015-05-15 12:15:00 No 1 tab, Route: PO, Drug Form: TAB, Dosing Weight 122.727, kg, ONCE, STAT, Start date: 05/15/15 7:15:00, Stop date: 05/15/15 7:15:00 [facility] Ketorolac 2015-05-15 12:14:00 No 30 mg, Route: IVP, Drug form: INJ, ONCE, Dosing Weight 122.727, kg, Priority: STAT, Start date: 05/15/15 7:14:00, Stop date: 05/15/15 7:14:00 [facility] Zofran 2015-05-15 11:28:00 No 4 mg, Route: IVP, Drug form: INJ, ONCE, Dosing Weight 122.727, kg, Priority: STAT, Start date: 05/15/15 6:28:00, Stop date: 05/15/15 6:28:00 [facility] Morphine 2015-05-15 09:19:00 No 4 mg, Route: IVP, Drug form: INJ, ONCE, Dosing Weight 122.727, kg, Priority: STAT, Start date: 05/15/15 4:19:00, Stop date: 05/15/15 4:19:00 [facility] Parian 2015-05-15 09:19:00 No 4 mg, Route: IVP, Drug form: INJ, ONCE, Dosing Weight 122.727, kg, Priority: STAT, Start date: 05/15/15 4:19:00, Stop date: 05/15/15 4:19:00 [facility] Sodium Chloride 0.154 MEQ/ML Injectable Solution 2015-05-15 [...] doses or times, Stop date: 02/14/15 1:40:00 [facility] Benadryl 2015-02-14 06:05:00 No Notes: (Byron e as: Mike) [facility] Reglan 2015-02-14 06:05:00 No Notes: (Same as: Reglan) [facility] Ondansetron 4 MG Oral Tablet [Zofran] 2014-09-30 07:04:00 Y es 4 mg = 1 tab, PO, BID, # 10 tab, 0 Refill(s) [facility] Morphine 2014-09-30 06:32:00 No 4 mg, Route: IV, Drug form: INJ, ONCE, Dosing Weight 118.182, kg, Start date: 09/30/14 0:32:00, Stop date: 09/30/14 0:32:00 [facility] Morphine 2014-09-30 06:31:00 No 4 mg, Route: IM, Drug form: INJ, ONCE, Dosing Weight 118.182, kg, Priority: STAT, Start date: 09/30/14 0:31:00, Stop date: 09/30/14 0:31:00 [facility] Saline Flush 0.9% 2014-09-30 05:25:00 No Notes: Same as: BD Posiflush Sterile [facility] Sodium Chloride 0.154 MEQ/ML Injectable Solution 2014-09-30 05:2 5:00 No 1,000 mL, Infuse Over: 1 hr, Route: IV, ONCE, Priority: STAT, Dosing Weight 118.182 kg, Start date: 09/29/14 23:25:00, Duration: 1 doses or times, Stop date: 09/29/14 23:25:00 [facility] Acetaminophen/Codeine Phosphate (Tylenol # 3*) 1 Ea TA B Acetaminophen/Codeine Phosphate (Tylenol # 3*) 1 Ea TAB Yes 1 Every 4 Hours as needed for Moderate Pain (4-6) [facility] Amphet Asp/Amphet/D-Amphet (Adderall Xr 30 Mg Capsule) 30 Mg CAP.ER.24H Amphet Asp/Amphet/D-Amphet (Adderall Xr 30 Mg Capsule) 30 Mg CAP.ER.24H Yes 30 Daily [facility] Levofloxacin (Levaquin) 500 Mg TABLET Levofloxacin (Levaquin) 500 M g TABLET Yes 500 Daily [facility] Zolpidem Tartrate (Ambien) 10 Mg TABLET Zolpidem Tartrate (A mbien) 10 Mg TABLET Yes 10 Bedtime as needed for Insomnia [facility] Vital Signs Vital Name Observation Time Observation Value Comments Source Body Temperature 2020-04-14 20:10:00 97.7 [degF] [facility] Weight 2020-04-14 05:34:00 287.06 [lb_av] [facility] BMI (Body Mass Index) 2020-04-14 05:34:00 46.3 kg/m2 [facility] Temperature Oral (F) 2020-03-26 16:57:00 98.6 F [facility] Heart Rate 2020-03-26 16:57:00 [facility] Systolic (mm Hg) 2020-03-26 16:57:00 [facility] Diastolic (mm Hg) 2020-03-26 16:57:00 [facility] Temperature Oral (F) 2020-03-26 13:00:00 98.2 F [facility] Heart Rate 2020-03-26 13:00:00 [facility] Respitory Rate 2020-03-26 13:00:00 [facility] Systolic (mm Hg) 2020-03-26 13:00:00 [facility] Diastolic (mm Hg) 2020-03-26 13:00:00 [facility] Temperature Oral (F) 2020-03-26 09:00:00 98.1 F [facility] Heart Rate 2020-03-26 09:00:00 [facility] Respitory Rate 2020-03-26 09:00:00 [facility] Systolic (mm Hg) 2020-03-26 09:00:00 [facility] Diastolic (mm Hg) 2020-03-26 09:00:00 [facility] Respitory Rate 2020-03-26 05:00:00 [facility] Height 2020-03-23 08:19:00 167.64 cm [facility] Weight 2020-03-23 08:19:00 [facility] BMI Calculated 2020-03-23 08:19:00 [facility] Temperature Oral (F) 2019-11-04 16:17:00 99.3 F [facility] Heart Rate 2019-11-04 16:17:00 [facility] Respitory Rate 2019-11-04 16:17:00 [facility] Systolic (mm Hg) 2019-11-04 16:17:00 [facility] Diastolic (mm Hg) 2019-11-04 16:17:00 [facility] Temperature Oral (F) 2019-11-04 12:53:00 98.2 F [facility] Heart Rate 2019-11-04 12:53:00 [facility] Respitory Rate 2019-11-04 12:53:00 [facility] Systolic (mm Hg) 2019-11-04 12:53:00 [facility] Diastolic (mm Hg) 2019-11-04 12:53:00 [facility] Temperature Oral (F) 2019-11-04 08:40:00 98.2 F [facility] Heart Rate 2019-11-04 08:40:00 [facility] Systolic (mm Hg) 2019-11-04 08:40:00 [facility] Diastolic (mm Hg) 2019-11-04 08:40:00 [facility] Respitory Rate 2019-11-04 03:38:00 [facility] Height 2019-11-02 08:32:00 167.64 cm [facility] Weight 2019-11-02 08:32:00 [facility] BMI Calculated 2019-11-02 08:32:00 [facility] Temperature Oral (F) 2019-05-25 09:20:00 98 F [facility] Heart Rate 2019-05-25 09:20:00 [facility] Respitory Rate 2019-05-25 09:20:00 [facility] Systolic (mm Hg) 2019-05-25 09:20:00 [facility] Diastolic (mm Hg) 2019-05-25 09:20:00 [facility] Temperature Oral (F) 2019-05-25 07:10:00 98 F [facility] Heart Rate 2019-05-25 07:10:00 [facility] Respitory Rate 2019-05-25 07:10:00 [facility] Systolic (mm Hg) 2019-05-25 07:10:00 [facility] Diastolic (mm Hg) 2019-05-25 07:10:00 [facility] Systolic (mm Hg) 2019-05-25 05:17:00 [facility] Diastolic (mm Hg) 2019-05-25 05:17:00 [facility] Heart Rate 2019-05-25 05:17:00 [facility] Respitory Rate 2019-05-25 05:17:00 [facility] Temperature Oral (F) 2019-05-25 05:17:00 98.2 F [facility] Height 2019-05-25 05:17:00 167.64 cm [facility] BMI Calculated 2019-05-25 05:17:00 [facility] Weight 2019-05-25 05:17:00 [facility] Systolic (mm Hg) 2019-05-16 22:30:00 [facility] Diastolic (mm Hg) 2019-05-16 22:30:00 [facility] Respitory Rate 2019-05-16 22:30:00 [facility] Heart Rate 2019-05-16 22:30:00 [facility] Temperature Oral (F) 2019-05-16 22:30:00 98.6 F [facility] Systolic (mm Hg) 2019-05-16 19:01:00 [facility] Diastolic (mm Hg) 2019-05-16 19:01:00 [facility] Heart Rate 2019-05-16 19:01:00 [facility] Respitory Rate 2019-05-16 19:01:00 [facility] Temperature Oral (F) 2019-05-16 19:01:00 98.8 F [facility] Height 2019-05-16 19:01:00 167.64 cm [facility] BMI Calculated 2019-05-16 19:01:00 [facility] Weight 2019-05-16 19:01:00 [facility] Temperature Oral (F) 2019-04-04 01:04:00 98.6 F [facility] Heart Rate 2019-04-04 01:04:00 [facility] Respitory Rate 2019-04-04 01:04:00 [facility] Systolic (mm Hg) 2019-04-04 01:04:00 [facility] Diastolic (mm Hg) 2019-04-04 01:04:00 [facility] Systolic (mm Hg) 2019-04-03 20:30:00 [facility] Diastolic (mm Hg) 2019-04-03 20:30:00 [facility] Heart Rate 2019-04-03 20:30:00 [facility] Respitory Rate 2019-04-03 20:30:00 [facility] Temperature Oral (F) 2019-04-03 20:30:00 98.6 F [facility] Weight 2019-04-03 20:30:00 [facility] Systolic (mm Hg) 2019-03-24 17:01:00 [facility] Diastolic (mm Hg) 2019-03-24 17:01:00 [facility] Respitory Rate 2019-03-24 17:01:00 [facility] Heart Rate 2019-03-24 17:01:00 [facility] Temperature Oral (F) 2019-03-24 17:01:00 98.7 F [facility] Temperature Oral (F) 2019-03-24 13:35:00 98.0 F [facility] Heart Rate 2019-03-24 13:35:00 [facility] Systolic (mm Hg) 2019-03-24 13:35:00 [facility] Diastolic (mm Hg) 2019-03-24 13:35:00 [facility] Respitory Rate 2019-03-24 13:35:00 [facility] Heart Rate 2019-03-24 09:00:00 [facility] Respitory Rate 2019-03-24 09:00:00 [facility] Systolic (mm Hg) 2019-03-24 09:00:00 [facility] Diastolic (mm Hg) 2019-03-24 09:00:00 [facility] Temperature Oral (F) 2019-03-24 09:00:00 98.1 F [facility] BMI Calculated 2019-03-23 23:51:00 [facility] Height 2019-03-23 23:51:00 167.64 cm [facility] Weight 2019-03-23 23:51:00 [facility] BMI Calculated 2019-03-23 16:59:00 [facility] Weight 2019-03-23 16:59:00 [facility] Height 2019-03-23 16:59:00 167.64 cm [facility] Heart Rate 2019-03-07 20:22:00 [facility] Respitory Rate 2019-03-07 20:22:00 [facility] Systolic (mm Hg) 2019-03-07 20:22:00 [facility] Diastolic (mm Hg) 2019-03-07 20:22:00 [facility] Temperature Oral (F) 2019-03-07 20:22:00 98.5 F [facility] Systolic (mm Hg) 2019-03-07 15:57:00 [facility] Diastolic (mm Hg) 2019-03-07 15:57:00 [facility] Respitory Rate 2019-03-07 15:57:00 [facility] Temperature Oral (F) 2019-03-07 15:57:00 98.4 F [facility] Heart Rate 2019-03-07 15:57:00 [facility] Systolic (mm Hg) 2019-03-07 13:13:00 [facility] Diastolic (mm Hg) 2019-03-07 13:13:00 [facility] Heart Rate 2019-03-07 13:13:00 [facility] Respitory Rate 2019-03-07 13:13:00 [facility] Temperature Oral (F) 2019-03-07 13:13:00 98.2 F [facility] Height 2019-03-01 05:55:00 167.64 cm [facility] Weight 2019-03-01 05:55:00 [facility] BMI Calculated 2019-03-01 05:55:00 [facility] Weight 2019-03-01 01:00:00 [facility] Heart Rate 2019-01-31 19:54:00 [facility] Systolic (mm Hg) 2019-01-31 19:54:00 [facility] Diastolic (mm Hg) 2019-01-31 19:54:00 [facility] Systolic (mm Hg) 2019-01-31 19:44:00 [facility] Diastolic (mm Hg) 2019-01-31 19:44:00 [facility] Heart Rate 2019-01-31 19:44:00 [facility] Systolic (mm Hg) 2019-01-31 19:31:00 [facility] Diastolic (mm Hg) 2019-01-31 19:31:00 [facility] Heart Rate 2019-01-31 19:31:00 [facility] Temperature Oral (F) 2019-01-31 17:05:00 98.8 F [facility] Temperature Oral (F) 2019-01-31 13:54:00 98.7 F [facility] Respitory Rate 2019-01-31 08:40:00 [facility] Temperature Oral (F) 2019-01-31 08:40:00 98.9 F [facility] Respitory Rate 2019-01-31 04:46:00 [facility] Respitory Rate 2019-01-31 00:20:00 [facility] BMI Calculated 2019-01-27 11:20:00 [facility] Height 2019-01-27 11:20:00 167.64 cm [facility] Weight 2019-01-27 11:20:00 [facility] Weight 2019-01-27 06:56:00 [facility] BMI Calculated 2019-01-27 06:56:00 [facility] Height 2019-01-27 06:56:00 167.64 cm [facility] Systolic (mm Hg) 2018-12-13 03:27:00 [facility] Diastolic (mm Hg) 2018-12-13 03:27:00 [facility] Respitory Rate 2018-12-13 03:27:00 [facility] Heart Rate 2018-12-13 03:27:00 [facility] Temperature Oral (F) 2018-12-13 03:27:00 98.8 F [facility] BMI Calculated 2018-12-13 01:17:00 [facility] Weight 2018-12-13 01:17:00 [facility] Height 2018-12-13 01:17:00 167.64 cm [facility] Respitory Rate 2018-12-13 01:17:00 [facility] Temperature Oral (F) 2018-12-13 01:17:00 99.2 F [facility] Heart Rate 2018-12-13 01:17:00 [facility] Systolic (mm Hg) 2018-12-13 01:17:00 [facility] Diastolic (mm Hg) 2018-12-13 01:17:00 [facility] Systolic (mm Hg) 2018-12-09 20:35:00 [facility] Diastolic (mm Hg) 2018-12-09 20:35:00 [facility] Respitory Rate 2018-12-09 20:35:00 [facility] Heart Rate 2018-12-09 20:35:00 [facility] Temperature Oral (F) 2018-12-09 20:35:00 99.1 F [facility] Temperature Oral (F) 2018-12-09 16:07:00 98.5 F [facility] Systolic (mm Hg) 2018-12-09 16:07:00 [facility] Diastolic (mm Hg) 2018-12-09 16:07:00 [facility] Respitory Rate 2018-12-09 16:07:00 [facility] Heart Rate 2018-12-09 16:07:00 [facility] Systolic (mm Hg) 2018-12-09 12:39:00 [facility] Diastolic (mm Hg) 2018-12-09 12:39:00 [facility] Respitory Rate 2018-12-09 12:39:00 [facility] Heart Rate 2018-12-09 12:39:00 [facility] Temperature Oral (F) 2018-12-09 12:39:00 98.4 F [facility] Weight 2018-12-04 12:06:00 [facility] Height 2018-12-04 03:30:00 167.64 cm [facility] BMI Calculated 2018-12-04 03:30:00 [facility] Weight 2018-12-04 03:30:00 [facility] BMI Calculated 2018-12-03 20:49:00 [facility] Weight 2018-12-03 20:49:00 [facility] Height 2018-12-03 20:49:00 167.64 cm [facility] Systolic (mm Hg) 2018-10-12 17:28:00 [facility] Diastolic (mm Hg) 2018-10-12 17:28:00 [facility] Heart Rate 2018-10-12 17:28:00 [facility] Respitory Rate 2018-10-12 17:28:00 [facility] Temperature Oral (F) 2018-10-12 17:28:00 98.3 F [facility] Heart Rate 2018-10-12 13:39:00 [facility] Temperature Oral (F) 2018-10-12 13:39:00 97.9 F [facility] Systolic (mm Hg) 2018-10-12 13:39:00 [facility] Diastolic (mm Hg) 2018-10-12 13:39:00 [facility] Respitory Rate 2018-10-12 13:39:00 [facility] Systolic (mm Hg) 2018-10-12 09:47:00 [facility] Diastolic (mm Hg) 2018-10-12 09:47:00 [facility] Respitory Rate 2018-10-12 09:47:00 [facility] Heart Rate 2018-10-12 09:47:00 [facility] Temperature Oral (F) 2018-10-12 09:47:00 98.0 F [facility] Weight 2018-10-11 11:23:00 [facility] Height 2018-10-11 11:23:00 167.64 cm [facility] BMI Calculated 2018-10-11 11:23:00 [facility] Systolic (mm Hg) 2018-10-11 09:27:00 [facility] Diastolic (mm Hg) 2018-10-11 09:27:00 [facility] Temperature Oral (F) 2018-10-11 09:27:00 98.2 F [facility] Respitory Rate 2018-10-11 09:27:00 [facility] Heart Rate 2018-10-11 09:27:00 [facility] Respitory Rate 2018-10-11 05:07:00 [facility] Heart Rate 2018-10-11 05:07:00 [facility] Temperature Oral (F) 2018-10-11 05:07:00 98 F [facility] Systolic (mm Hg) 2018-10-11 05:07:00 [facility] Diastolic (mm Hg) 2018-10-11 05:07:00 [facility] Weight 2018-10-11 01:12:00 [facility] Temperature Oral (F) 2018-10-11 01:12:00 98.6 F [facility] Heart Rate 2018-10-11 01:12:00 [facility] Respitory Rate 2018-10-11 01:12:00 [facility] Systolic (mm Hg) 2018-10-11 01:12:00 [facility] Diastolic (mm Hg) 2018-10-11 01:12:00 [facility] Temperature Oral (F) 2018-09-06 10:17:00 97.6 F [facility] Respitory Rate 2018-09-06 10:17:00 [facility] Heart Rate 2018-09-06 10:17:00 [facility] Systolic (mm Hg) 2018-09-06 10:17:00 [facility] Diastolic (mm Hg) 2018-09-06 10:17:00 [facility] Respitory Rate 2018-09-06 06:28:00 [facility] Temperature Oral (F) 2018-09-06 06:28:00 98.2 F [facility] Heart Rate 2018-09-06 06:28:00 [facility] Systolic (mm Hg) 2018-09-06 06:28:00 [facility] Diastolic (mm Hg) 2018-09-06 06:28:00 [facility] Temperature Oral (F) 2018-09-06 06:16:00 98 F [facility] Height 2018-09-06 06:16:00 167.64 cm [facility] Heart Rate 2018-09-06 06:16:00 [facility] Respitory Rate 2018-09-06 06:16:00 [facility] Systolic (mm Hg) 2018-09-06 06:16:00 [facility] Diastolic (mm Hg) 2018-09-06 06:16:00 [facility] BMI Calculated 2018-09-06 06:16:00 [facility] Weight 2018-09-06 06:16:00 [facility] Systolic (mm Hg) 2018-08-30 17:44:00 [facility] Diastolic (mm Hg) 2018-08-30 17:44:00 [facility] Temperature Oral (F) 2018-08-30 17:44:00 98.0 F [facility] Respitory Rate 2018-08-30 17:44:00 [facility] Heart Rate 2018-08-30 17:44:00 [facility] Heart Rate 2018-08-30 14:10:00 [facility] Respitory Rate 2018-08-30 14:10:00 [facility] Systolic (mm Hg) 2018-08-30 14:10:00 [facility] Diastolic (mm Hg) 2018-08-30 14:10:00 [facility] Temperature Oral (F) 2018-08-30 14:10:00 98.2 F [facility] Respitory Rate 2018-08-30 10:04:00 [facility] Systolic (mm Hg) 2018-08-30 10:04:00 [facility] Diastolic (mm Hg) 2018-08-30 10:04:00 [facility] Heart Rate 2018-08-30 10:04:00 [facility] Temperature Oral (F) 2018-08-30 10:04:00 98.1 F [facility] Height 2018-08-24 22:13:00 167.64 cm [facility] Weight 2018-08-24 22:13:00 [facility] BMI Calculated 2018-08-24 22:13:00 [facility] BMI Calculated 2018-08-24 20:22:00 [facility] Weight 2018-08-24 20:22:00 [facility] Height 2018-08-24 20:22:00 165.1 cm [facility] Weight 2018-08-24 07:42:00 [facility] Temperature Oral (F) 2018-05-22 17:03:00 98.4 F [facility] Respitory Rate 2018-05-22 17:03:00 [facility] Heart Rate 2018-05-22 17:03:00 [facility] Systolic (mm Hg) 2018-05-22 17:03:00 [facility] Diastolic (mm Hg) 2018-05-22 17:03:00 [facility] Respitory Rate 2018-05-22 13:14:00 [facility] Heart Rate 2018-05-22 13:14:00 [facility] Temperature Oral (F) 2018-05-22 13:14:00 98.3 F [facility] Systolic (mm Hg) 2018-05-22 13:14:00 [facility] Diastolic (mm Hg) 2018-05-22 13:14:00 [facility] Systolic (mm Hg) 2018-05-22 11:16:00 [facility] Diastolic (mm Hg) 2018-05-22 11:16:00 [facility] Temperature Oral (F) 2018-05-22 11:16:00 98.2 F [facility] Heart Rate 2018-05-22 11:16:00 [facility] Respitory Rate 2018-05-22 11:16:00 [facility] Weight 2018-05-17 08:15:00 [facility] BMI Calculated 2018-05-17 08:15:00 [facility] Height 2018-05-17 08:15:00 167.64 cm [facility] Weight 2018-05-17 03:51:00 [facility] Temperature Oral (F) 2018-01-13 02:51:00 97.5 F [facility] Respitory Rate 2018-01-13 02:51:00 [facility] Systolic (mm Hg) 2018-01-13 02:51:00 [facility] Diastolic (mm Hg) 2018-01-13 02:51:00 [facility] Heart Rate 2018-01-13 02:51:00 [facility] Height 2018-01-12 21:15:00 167.64 cm [facility] BMI Calculated 2018-01-12 21:15:00 [facility] Weight 2018-01-12 21:15:00 [facility] Heart Rate 2018-01-12 21:15:00 [facility] Systolic (mm Hg) 2018-01-12 21:15:00 [facility] Diastolic (mm Hg) 2018-01-12 21:15:00 [facility] Temperature Oral (F) 2018-01-12 21:15:00 98.8 F [facility] Respitory Rate 2018-01-12 21:15:00 [facility] Heart Rate 2016-12-31 16:21:00 [facility] Systolic (mm Hg) 2016-12-31 16:21:00 [facility] Diastolic (mm Hg) 2016-12-31 16:21:00 [facility] Respitory Rate 2016-12-31 15:59:00 [facility] Heart Rate 2016-12-31 15:59:00 [facility] Temperature Oral (F) 2016-12-31 15:59:00 98.4 F [facility] Systolic (mm Hg) 2016-12-31 15:59:00 [facility] Diastolic (mm Hg) 2016-12-31 15:59:00 [facility] Systolic (mm Hg) 2016-12-31 11:56:00 [facility] Diastolic (mm Hg) 2016-12-31 11:56:00 [facility] Respitory Rate 2016-12-31 11:56:00 [facility] Temperature Oral (F) 2016-12-31 11:56:00 98.5 F [facility] Heart Rate 2016-12-31 11:56:00 [facility] Weight 2016-12-31 11:38:00 [facility] Respitory Rate 2016-12-31 11:03:00 [facility] Temperature Oral (F) 2016-12-31 11:03:00 98 F [facility] BMI Calculated 2016-12-31 04:03:00 [facility] Height 2016-12-31 04:03:00 167.64 cm [facility] Weight 2016-12-31 04:03:00 [facility] Systolic (mm Hg) 2016-12-26 00:49:00 Efraín rial [facility] Diastolic (mm Hg) 2016-12-26 00:49:00 [facility] Respitory Rate 2016-12-26 00:49:00 [facility] Heart Rate 2016-12-26 00:49:00 [facility] Temperature Oral (F) 2016-12-26 00:49:00 98 F [facility] Systolic (mm Hg) 2016-12-26 00:01:00 Efraín rial [facility] Diastolic (mm Hg) 2016-12-26 00:01:00 [facility] Respitory Rate 2016-12-26 00:01:00 [facility] Heart Rate 2016-12-26 00:01:00 [facility] Temperature Oral (F) 2016-12-26 00:01:00 98 F [facility] Weight 2016-12-25 23:55:00 [facility] BMI Calculated 2016-12-25 23:55:00 [facility] Height 2016-12-25 23:55:00 167.64 cm [facility] Systolic (mm Hg) 2016-12-25 22:45:00 E[facility] Diastolic (mm Hg) 2016-12-25 22:45:00 [facility] Respitory Rate 2016-12-25 22:45:00 [facility] Height 2016-12-25 19:18:00 167.64 cm [facility] BMI Calculated 2016-12-25 19:18:00 [facility] Weight 2016-12-25 19:18:00 [facility] Temperature Oral (F) 2016-12-25 19:18:00 98.2 F [facility] Heart Rate 2016-12-25 19:18:00 [facility] Systolic (mm Hg) 2016-07-20 04:46:00 [facility] Diastolic (mm Hg) 2016-07-20 04:46:00 [facility] Heart Rate 2016-07-20 04:46:00 [facility] Respitory Rate 2016-07-20 04:46:00 [facility] Temperature Oral (F) 2016-07-20 04:46:00 98.3 F [facility] Weight 2016-07-20 01:24:00 [facility] BMI Calculated 2016-07-20 01:24:00 [facility] Height 2016-07-20 01:24:00 167.64 cm [facility] Temperature Oral (F) 2016-07-20 01:24:00 98.4 F [facility] Systolic (mm Hg) 2016-07-20 01:24:00 [facility] Diastolic (mm Hg) 2016-07-20 01:24:00 [facility] Heart Rate 2016-07-20 01:24:00 [facility] Respitory Rate 2016-07-20 01:24:00 [facility] Systolic (mm Hg) 2016-04-23 08:04:00 [facility] Diastolic (mm Hg) 2016-04-23 08:04:00 [facility] Respitory Rate 2016-04-23 08:04:00 [facility] Heart Rate 2016-04-23 08:04:00 [facility] Temperature Oral (F) 2016-04-23 08:04:00 97.6 F [facility] Height 2016-04-23 05:01:00 157.48 cm [facility] Systolic (mm Hg) 2016-04-23 05:01:00 [facility] Diastolic (mm Hg) 2016-04-23 05:01:00 [facility] Heart Rate 2016-04-23 05:01:00 [facility] Respitory Rate 2016-04-23 05:01:00 [facility] Temperature Oral (F) 2016-04-23 05:01:00 98.2 F [facility] Weight 2016-04-23 05:01:00 [facility] BMI Calculated 2016-04-23 05:01:00 [facility] Systolic (mm Hg) 2016-04-16 08:51:00 [facility] Diastolic (mm Hg) 2016-04-16 08:51:00 [facility] Respitory Rate 2016-04-16 08:51:00 [facility] Heart Rate 2016-04-16 08:51:00 [facility] Temperature Oral (F) 2016-04-16 08:51:00 98.2 F [facility] Respitory Rate 2016-04-16 04:25:00 [facility] Heart Rate 2016-04-16 04:25:00 [facility] Systolic (mm Hg) 2016-04-16 04:25:00 [facility] Diastolic (mm Hg) 2016-04-16 04:25:00 [facility] Height 2016-04-16 04:25:00 167.64 cm [facility] Temperature Oral (F) 2016-04-16 04:25:00 98.7 F [facility] BMI Calculated 2016-04-16 04:25:00 [facility] Weight 2016-04-16 04:25:00 [facility] Systolic (mm Hg) 2016-04-14 08:30:00 [facility] Diastolic (mm Hg) 2016-04-14 08:30:00 [facility] Heart Rate 2016-04-14 08:30:00 [facility] Temperature Oral (F) 2016-04-14 08:30:00 98 F [facility] Systolic (mm Hg) 2016-04-14 07:30:00 [facility] Diastolic (mm Hg) 2016-04-14 07:30:00 [facility] Respitory Rate 2016-04-14 07:30:00 [facility] Heart Rate 2016-04-14 07:30:00 [facility] Temperature Oral (F) 2016-04-14 07:30:00 98 F [facility] Systolic (mm Hg) 2016-04-14 06:30:00 [facility] Diastolic (mm Hg) 2016-04-14 06:30:00 [facility] Respitory Rate 2016-04-14 06:30:00 [facility] Heart Rate 2016-04-14 06:30:00 [facility] Temperature Oral (F) 2016-04-14 06:30:00 98.2 F [facility] BMI Calculated 2016-04-14 05:39:00 [facility] Weight 2016-04-14 05:39:00 [facility] Height 2016-04-14 05:39:00 167.64 cm [facility] Respitory Rate 2016-04-14 05:39:00 [facility] Systolic (mm Hg) 2016-02-24 07:38:00 [facility] Diastolic (mm Hg) 2016-02-24 07:38:00 [facility] Heart Rate 2016-02-24 07:38:00 [facility] Respitory Rate 2016-02-24 07:38:00 [facility] Heart Rate 2016-02-24 03:24:00 [facility] Respitory Rate 2016-02-24 03:24:00 [facility] BMI Calculated 2016-02-24 03:24:00 [facility] Height 2016-02-24 03:24:00 167.64 cm [facility] Weight 2016-02-24 03:24:00 [facility] Temperature Oral (F) 2016-02-24 03:24:00 98.1 F [facility] Systolic (mm Hg) 2016-02-24 03:24:00 [facility] Diastolic (mm Hg) 2016-02-24 03:24:00 [facility] Temperature Oral (F) 2016-01-17 05:32:00 98.1 F [facility] Heart Rate 2016-01-17 05:32:00 [facility] Respitory Rate 2016-01-17 05:32:00 [facility] Systolic (mm Hg) 2016-01-17 05:32:00 [facility] Diastolic (mm Hg) 2016-01-17 05:32:00 [facility] Heart Rate 2016-01-17 04:06:00 [facility] Systolic (mm Hg) 2016-01-17 04:06:00 [facility] Diastolic (mm Hg) 2016-01-17 04:06:00 [facility] Temperature Oral (F) 2016-01-17 04:06:00 98.0 F [facility] Respitory Rate 2016-01-17 04:06:00 [facility] Heart Rate 2016-01-17 01:48:00 [facility] Respitory Rate 2016-01-17 01:48:00 [facility] Systolic (mm Hg) 2016-01-17 01:48:00 [facility] Diastolic (mm Hg) 2016-01-17 01:48:00 [facility] Weight 2016-01-17 01:48:00 [facility] Height 2016-01-17 01:48:00 167.64 cm [facility] BMI Calculated 2016-01-17 01:48:00 [facility] Temperature Oral (F) 2016-01-17 01:48:00 98 F [facility] Respitory Rate 2015-10-13 11:44:00 [facility] Heart Rate 2015-10-13 11:44:00 [facility] Temperature Oral (F) 2015-10-13 11:44:00 98.2 F [facility] Systolic (mm Hg) 2015-10-13 11:44:00 [facility] Diastolic (mm Hg) 2015-10-13 11:44:00 [facility] Height 2015-10-13 05:34:00 167.64 cm [facility] BMI Calculated 2015-10-13 05:34:00 [facility] Weight 2015-10-13 05:34:00 [facility] Heart Rate 2015-10-13 05:34:00 [facility] Respitory Rate 2015-10-13 05:34:00 [facility] Temperature Oral (F) 2015-10-13 05:34:00 98.2 F [facility] Systolic (mm Hg) 2015-10-13 05:34:00 [facility] Diastolic (mm Hg) 2015-10-13 05:34:00 [facility] Respitory Rate 2015-07-04 08:49:00 [facility] Heart Rate 2015-07-04 08:49:00 [facility] Temperature Oral (F) 2015-07-04 08:49:00 98.0 F [facility] Systolic (mm Hg) 2015-07-04 08:49:00 [facility] Diastolic (mm Hg) 2015-07-04 08:49:00 [facility] Respitory Rate 2015-07-04 07:00:00 [facility] Heart Rate 2015-07-04 07:00:00 [facility] Temperature Oral (F) 2015-07-04 07:00:00 98.4 F [facility] Systolic (mm Hg) 2015-07-04 07:00:00 [facility] Diastolic (mm Hg) 2015-07-04 07:00:00 [facility] Heart Rate 2015-07-04 05:28:00 [facility] Respitory Rate 2015-07-04 05:28:00 [facility] Temperature Oral (F) 2015-07-04 05:28:00 98.2 F [facility] Systolic (mm Hg) 2015-07-04 05:28:00 [facility] Diastolic (mm Hg) 2015-07-04 05:28:00 [facility] Weight 2015-07-04 05:28:00 [facility] Systolic (mm Hg) 2015-05-17 11:05:00 [facility] Diastolic (mm Hg) 2015-05-17 11:05:00 [facility] Temperature Oral (F) 2015-05-17 11:05:00 98.2 F [facility] Heart Rate 2015-05-17 11:05:00 [facility] Heart Rate 2015-05-17 10:05:00 [facility] Systolic (mm Hg) 2015-05-17 10:05:00 [facility] Diastolic (mm Hg) 2015-05-17 10:05:00 [facility] Systolic (mm Hg) 2015-05-17 09:05:00 [facility] Diastolic (mm Hg) 2015-05-17 09:05:00 [facility] Heart Rate 2015-05-17 09:05:00 [facility] Respitory Rate 2015-05-17 08:05:00 [facility] Temperature Oral (F) 2015-05-17 08:05:00 99.6 F [facility] Temperature Oral (F) 2015-05-17 06:17:00 99.6 F [facility] Height 2015-05-17 04:59:00 167.64 cm [facility] BMI Calculated 2015-05-17 04:59:00 [facility] Weight 2015-05-17 04:59:00 [facility] Respitory Rate 2015-05-17 04:59:00 [facility] Temperature Oral (F) 2015-05-15 13:01:00 98.9 F [facility] Heart Rate 2015-05-15 13:01:00 [facility] Respitory Rate 2015-05-15 13:01:00 [facility] Systolic (mm Hg) 2015-05-15 13:01:00 [facility] Diastolic (mm Hg) 2015-05-15 13:01:00 [facility] Heart Rate 2015-05-15 07:46:00 [facility] Respitory Rate 2015-05-15 07:46:00 [facility] Systolic (mm Hg) 2015-05-15 07:46:00 [facility] Diastolic (mm Hg) 2015-05-15 07:46:00 [facility] Temperature Oral (F) 2015-05-15 07:46:00 98.1 F [facility] Height 2015-05-15 03:56:00 167.64 cm [facility] BMI Calculated 2015-05-15 03:56:00 [facility] Weight 2015-05-15 03:56:00 [facility] Temperature Oral (F) 2015-05-15 03:56:00 98.3 F [facility] Systolic (mm Hg) 2015-05-15 03:56:00 [facility] Diastolic (mm Hg) 2015-05-15 03:56:00 [facility] Respitory Rate 2015-05-15 03:56:00 [facility] Heart Rate 2015-05-15 03:56:00 [facility] Respitory Rate 2015-02-14 09:30:00 [facility] Systolic (mm Hg) 2015-02-14 09:30:00 [facility] Diastolic (mm Hg) 2015-02-14 09:30:00 [facility] Heart Rate 2015-02-14 09:30:00 [facility] Heart Rate 2015-02-14 04:52:00 [facility] Temperature Oral (F) 2015-02-14 04:52:00 98.3 F [facility] Respitory Rate 2015-02-14 04:52:00 [facility] Systolic (mm Hg) 2015-02-14 04:52:00 [facility] Diastolic (mm Hg) 2015-02-14 04:52:00 [facility] BMI Calculated 2015-02-14 01:00:00 [facility] Weight 2015-02-14 01:00:00 [facility] Temperature Oral (F) 2015-02-14 01:00:00 98.6 F [facility] Height 2015-02-14 01:00:00 167.64 cm [facility] Heart Rate 2015-02-14 01:00:00 [facility] Respitory Rate 2015-02-14 01:00:00 [facility] Systolic (mm Hg) 2015-02-14 01:00:00 [facility] Diastolic (mm Hg) 2015-02-14 01:00:00 [facility] Diastolic (mm Hg) 2014-09-30 07:00:00 [facility] Systolic (mm Hg) 2014-09-30 07:00:00 [facility] Temperature Oral (F) 2014-09-30 07:00:00 98.3 F [facility] Respitory Rate 2014-09-30 07:00:00 [facility] Heart Rate 2014-09-30 07:00:00 [facility] Temperature Oral (F) 2014-09-30 04:47:00 98.2 F [facility] Diastolic (mm Hg) 2014-09-30 04:47:00 [facility] Heart Rate 2014-09-30 04:47:00 [facility] Systolic (mm Hg) 2014-09-30 04:47:00 [facility] Respitory Rate 2014-09-30 04:47:00 [facility] Respitory Rate 2014-09-30 03:54:00 [facility] Heart Rate 2014-09-30 03:54:00 [facility] Diastolic (mm Hg) 2014-09-30 03:54:00 [facility] Temperature Oral (F) 2014-09-30 03:54:00 98.4 F [facility] Height 2014-09-30 03:54:00 167.64 cm [facility] Systolic (mm Hg) 2014-09-30 03:54:00 Efraín riatereso Soto BMI Calculated 2014-09-30 03:54:00 Brayden Hawkins Weight 2014-09-30 03:54:00 [facility] Procedures Procedure Date / Time Performed Performing Clinician Valery greenwood Computed tomography of abdomen and pelvis with contrast 00:00:00 [facility] Complete non-obstetrical ultrasound of pelvis 2020-04-12 00:00:0 0 [facility] Incision AND drainage 2018-05-17 05:00:00 Mendozaeaston micki Soto Cholecystectomy [facility] Plan of Care Planned Activity Planned Date Details Comments Source Instructions Post Operative Pain [facility] Encounters Start Date/Time End Date/Time Encounter Type Admission Type [facility] Care Department Encounter ID Source 2020-03-23 06:02:00 Inpatient U [facility] MED [id number] [facility] 2020-04-13 00:22:00 2020-04-14 20:29:00 Discharged Inpatient (obs) 1 ZOLTAN MCKINGHT [facility] [id number] I [facility] 2020-04-04 00:00:00 2020-04-04 00:00:00 Telephone Grey Schultz [facility] [id number] 2020-03-23 06:02:00 2020-03-26 15:12:00 Outpatient Zoya Carbajal chi [facility] [id number] 2020-02-23 07:36:59 2020-02-23 08:06:59 Office Visit Aaliyah Setwart [facility] [id number] 2020-02-06 00:00:00 2020-02-06 00:00:00 Patient Secure Msg Grey Schultz [facility] [id number] 2019-11-02 03:06:00 2019-11-04 13:40:00 Outpatient Hardik Coats [facility] [id number] 2019-11-02 02:06:00 2019-11-02 23:59:[address] charisma Frias [facility]SE [id number] 2019-11-02 03:06:00 2019-11-02 03:06:00 Outpatient MHSE MED [id number] [facility] 2019-11-02 02:06:00 2019-11-02 02:06:00 Outpatient MHSE MHSE [id number] [facility] 2019-07-29 17:32:00 2019-07-29 19:13:00 Departed Emergency Room 1 GLYNN BHATT [facility] [id number] I [facility] 2019-06-05 14:58:00 2019-06-05 16:13:[address] [facility] [id number] [facility] 2019-05-24 23:55:11 2019-05-25 04:36:00 Outpatient Edison Byron Choudhuryius MHSE MHSE [id number] 2019-05-24 23:55:00 2019-05-24 23:55:00 Emergency E MHSE MHSE [id number] [facility] 2019-05-16 13:43:54 2019-05-16 17:46:00 Outpatient Eliot Wakefield [facility]PL [id number] 2019-05-16 13:43:00 2019-05-16 13:43:00 Emergency E MHBL MHBL [id number] [facility] 2019-04-03 15:26:24 2019-04-03 20:07:00 Outpatient Eliot Wakefield [facility]PL [id number] 2019-04-03 15:26:00 2019-04-03 15:26:00 Emergency E MHBL MHBL [id number] [facility] 2019-03-23 11:40:00 2019-03-24 20:01:00 Outpatient Jose L Cunningham [facility]PL [facility]PL [id number] 2019-03-23 14:49:00 2019-03-23 14:49:00 Outpatient E [facility]BL MED [id number] [facility] 2019-02-28 19:39:04 2019-03-07 20:00:00 Outpatient Carla Campos on MHPL MHPL [id number] 2019-03-02 11:50:00 2019-02-28 23:03:00 [facility] E [id number] 2019-01-27 01:47:07 2019-01-31 16:50:00 Outpatient Jennifer White MHSE MHSE [id number] 2019-01-27 17:00:00 2019-01-27 04:15:00 Inpatient E MHSE MED [id number] [facility] 2018-12-12 20:11:18 2018-12-12 22:30:00 Outpatient Herb Martin A MHPL [facility]PL [id number] 2018-12-12 20:11:00 2018-12-12 20:11:00 Emergency E [facility] BL [id number] [facility] 2018-12-03 15:44:00 2018-12-09 18:39:00 Outpatient A Terrence ely MHPL MHPL [id number] 2018-12-03 15:44:00 2018-12-09 18:39:00 Outpatient A Terrence ely MHPL [facility]PL [id number] 2018-12-05 11:17:00 2018-12-03 20:46:00 Inpatient E [facility] MED [id number] [facility] 2018-10-11 05:02:00 2018-10-12 15:33:00 Outpatient Lexx Sauer MHSE MHSE [id number] 2018-10-10 18:53:00 2018-10-11 04:00:00 Outpatient F Temitope villalobos MHPL MHPL [id number] 2018-09-06 00:08:00 2018-09-06 04:19:00 Outpatient F Ruth apple MHSE MHSE [id number] 2018-09-06 00:08:00 2018-09-06 04:19:00 Outpatient F Ruth apple MHSE MHSE [id number] 2018-08-24 01:36:00 2018-08-30 14:40:00 Outpatient Orlaia Hull i MHPL MHPL [id number] 2018-06-24 13:37:00 2018-06-24 23:59:00 Outpatient Tracie Stahl MHOIP MHOIP [id number] 2018-05-16 22:31:00 2018-05-22 13:15:00 Outpatient Oralia Hull i MHPL [facility]PL [id number] 2018-04-30 13:40:00 2018-04-30 16:17:[address] [facility] [id number] [facility] 2018-02-07 14:46:00 2018-02-07 19:52:00 Departed Emergency Room [address] [facility] [id number] [facility] 2018-02-04 22:15:00 2018-02-05 02:06:[address] [facility] [id number] [facility] 2018-01-12 16:14:00 2018-01-12 22:22:00 Outpatient Betty Navarro MHSE MHSE [id number] 2016-12-30 22:54:00 2016-12-31 13:53:00 Outpatient Alec Vicente MHSE MHSE [id number] 2016-12-25 14:16:00 2016-12-25 20:08:00 Outpatient Daniele Weaver MHSE MHSE [id number] 2016-07-19 19:18:00 2016-07-19 22:50:00 Outpatient Jama Khalil MHSE MHSE [id number] 2016-04-22 23:58:00 2016-04-23 03:06:00 Outpatient Lupe, Rosalind Terry MHSE MHSE [id number] 2016-04-15 23:24:00 2016-04-16 03:54:00 Outpatient BlairJeannie castro Ismael curiel MHSE MHSE [id number] 2016-04-14 00:33:00 2016-04-14 03:59:00 Outpatient Cristino Porter MHSE MHSE [id number] 2016-02-23 22:20:00 2016-02-24 02:54:00 Outpatient Wilmar Jackson [place] [id number] 2016-01-16 20:36:00 2016-01-17 00:34:00 Outpatient Salvador Rodríguez PL MHPL [id number] 2015-10-12 23:21:00 2015-10-13 05:47:00 Outpatient JoeRosy harris [place] [id number] 2015-07-03 23:24:00 2015-07-04 03:54:00 Outpatient Michelle Finley [place] [id number] 2015-05-16 23:53:00 2015-05-17 07:05:00 Outpatient JoeHenriettaRosy [place] [id number] 2015-05-14 22:48:00 2015-05-15 08:01:00 Outpatient Temitope Cade Jose [place] SE [id number] 2015-02-13 19:35:00 2015-02-14 05:39:00 Outpatient Zoltan Prince [place] [id number] 2014-09-29 21:23:00 2014-09-30 02:31:00 Outpatient Mario Gu [place] [id number] Results Test Description Test Time Test Comments Results Result Comments Source Blood leukocytes automated count (number/volume) 2020-04-14 05:40:00 Test Item White Blood Count (test code = 6690-2) 11.99 4.8-10.8 [facility] (number/volume)2020-04-14 05:40:00* Test Item Value Reference Range Interpretation Comments Red Blood Count (test code = 789-8) 3.85 3.6-5.1 [facility] (moles/volume)2020-04-14 05:40:00* Test Item Value Reference Range Interpretation Comments Hemoglobin (test code = 25809-5) 10.9 12.0-16.0 [facility]Autom[facility] hematocrit (volume fraction)2020-04-14 05:40:00* Test Item Value Reference Range Interpretation Comments Hematocrit (test code = 4544-3) 34.7 34.2-44.1 [facility] erythrocyte mean corpuscular [id number] 05:40:00* Test Item Value Reference Range Interpretation Comments Mean Corpuscular Volume (test code = 787-2) 90.1 81-99 [facility] mean corpuscular hemoglobin (mass per erythrocyte)2020-04-14 05:40:00* Test Item Value Reference Range Interpretation Comments Mean Corpuscular Hemoglobin (test code = 785-6) 28.3 28-[address] [facility] erythrocyte mean corpuscular hemoglobin concentration measurement (mass/volume)2020-04-14 05:40:00* Test Item Value Reference Range Interpretation Comments Mean Corpuscular Hemoglobin Concent (test code = 786-4) 31.4 31-35 [facility] HospitalRDW RjvTu-Yij0552-27-29 05:40:00* Test Item Value Reference Range Interpretation Comments Red Cell Distribution Width (test code = 46380-5) 12.9 11.7 -14.4 [facility] platelet count (count/volume)2020-04-14 05:40:00* Test Item Value Reference Range Interpretation Comments Platelet Count (test code = 777-3) 226 140-360 [facility] HospitalAutreplaced by [facility] blood segmented neutrophil count as percentage of total tfchfrykpi3461-58-65 05:40:00* Test Item Value Reference Range Interpretation Comments Neutrophils (%) (Auto) (test code = 72595-7) 79.2 38.7-80.0 [facility] HospitalAutomated blood lymphocyte count as percentage ot total dhirmdepvw2635-15-83 05:40:00* Test Item Value Reference Range Interpretation Comments Lymphocytes (%) (Auto) (test code = 736-9) 13.0 18.0-39.1 [facility] HospitalAutomated blood monocyte count as percentage of total sjuxkbqteh7308-05-22 05:40:00* Test Item Value Reference Range Interpretation Comments Monocytes (%) (Auto) (test code = 5905-5) 7.0 4.4-11.3 [facility] HospitalAutomated blood eosinophil count as percentage of total otkqqkqgrd4094-46-02 05:40:00* Test Item Value Reference Range Interpretation Comments Eosinophils (%) (Auto) (test code = 713-8) 0.1 0.0-6.0 [facility] HospitalAutomated blood basophil count as percentage of total jphdcmmegp3071-78-07 05:40:00* Test Item Value Reference Range Interpretation Comments Basophils (%) (Auto) (test code = 706-2) 0.3 0.0-1.0 [facility] HospitalFluoroscopic procedure less than one hour pabjwejn4435-02-17 05:40:00* Test Item Value Reference Range Interpretation Comments IM GRANULOCYTES % (test code = IM GRANULOCYTES %) 0.4 0.0- 1.0 [facility] HospitalAutom[facility] blood neutrophil count 2020-04-14 05:40:00* Test Item Value Reference Range Interpretation Comments Neutrophils # (Auto) (test code = 751-8) 9.5 2.1-6.9 [facility]Blood lymphocytes count (number/volume) 2020-04-14 05:40:00* Test Item Value Reference Range Interpretation Comments Lymphocytes # (Auto) (test code = 44390-0) 1.6 1.0-3.2 [facility] HospitalBlood monocytes automated count (number/volume)2020-04-14 05:40:00* Test Item Value Reference Range Interpretation Comments Monocytes # (Auto) (test code = 742-7) 0.8 0.2-0.8 [facility] HospitalAutomated blood eosinophil count 2020-04-14 05:40:00* Test Item Value Reference Range Interpretation Comments Eosinophils # (Auto) (test code = 711-2) 0.0 0.0-0.4 [facility] HospitalAutomated blood basophil count (count/volume)2020-04-14 05:40:00* Test Item Value Reference Range Interpretation Comments Basophils # (Auto) (test code = 704-7) 0.0 0.0-0.1 [facility] HospitalFluoroscopic procedure less than one hour sdzjyrvx2388-02-18 05:40:00* Test Item Value Reference Range Interpretation Comments Absolute Immature Granulocyte (auto (tristan t code = Absolute Immature Granulocyte (auto) 0.05 0-0.1 [facility] plasma sodium measurement (moles/volume)2020-04-14 05:40:00* Test Item Value Reference Range Interpretation Comments Sodium Level (test code = 2951-2) 137 136-145 [facility] Hospitaler[facility] or plasma potassium measurement (moles/volume)2020-04-14 05:40:00* Test Item Value Reference Range Interpretation Comments Potassium Level (test code = 2823-3) 3.9 3.5-5.1 [facility] Hospitaler[facility] or plasma chloride measurement (moles/volume)2020-04-14 05:40:00* Test Item Value Reference Range Interpretation Comments Chloride Level (test code = 2075-0) 109 98-107 [facility] Hospitaler[facility] or plasma carbon dioxide, total measurement (moles/volume)2020-04-14 05:40:00* Test Item Value Reference Range Interpretation Comments Carbon Dioxide Level (test code = 2028-9) 20 - [facility]er[facility] or plasma anion dyf2607-12-00 05:40:00* Test Item Value Reference Range Interpretation Comments Anion Gap (test code = 90386-8) 11.9 8-16 [facility]er[facility] or plasma urea nitrogen measurement (mass/volume)2020-04-14 05:40:00* Test Item Value Reference Range Interpretation Comments Blood Urea Nitrogen (test code = 3094-0) 8 7-26 [facility] Hospitaler[facility] or plasma creatinine measurement (mass/volume)2020-04-14 05:40:00* Test Item Value Reference Range Interpretation Comments Creatinine (test code = 2160-0) 0.67 0.57-1.11 [facility] Hospitalerum or plasma urea nitrogen/creatinine mass tsmdp3173-96-27 05:40:00* Test Item Value Reference Range Interpretation Comments BUN/Creatinine Ratio (test code = 3097-3) 12 6-25 [facility] HospitalEstimated glomerular filtration rate (GFR) ivnbkwwaxnexh7835-30-98 05:40:00* Test Item Value Reference Range Interpretation Comments Estimat Glomerular Filtration Rate (test code = 376678131) > 60 >60 Ranges were taken from the National Kidney Disease Education Program and the [place] [employer] literature.Reference ranges:60 or greater: Vafbsh43-00 ( for 3 consecutive months): Chronic kidney disease 15 or less: Kidney failureMidland Memorial HospitalGlucose lcmkqgiktqb5753-71-41 05:40:00* Test Item Value Reference Range Interpretation Comments Glucose Level (test code = DZS3033) 100 74-118 [facility] Hospitalerum or plasma calcium measurement (mass/volume)2020-04-14 05:40:00* Test Item Value Reference Range Interpretation Comments Calcium Level (test code = 16841-9) 7.6 8.4-10.2 [facility] HospitalFluoroscopic procedure less than one hour xxxunxqv8912-56-77 01:08:00* Test Item Value Reference Range Interpretation Comments Coronavirus (PCR) (test code = Coronavirus (PCR)) NOT DETECTED NOTD ETECTED [employer]ptima SARS-CoV-2 assay is a nucleic amplification test intended for the qualitative detection of RNA from SARS-CoV-2 from nasopharyngeal ([employer]) specimens . It is used under Emergency Use Authorization (EUA) by FDA.A positive result is indicative of the presence of SARS-CoV-2 RNA. Clinical correlation with patient history and other diagnostic information is necessary to determine patient infe ction status.A negative (Not Detected) result does not preclude SARS-CoV-2 infec tion. Clinical Correlation with patient history and other diagnostic information should be used in patient management decisions.Invalid: Unable to generate a va lid result on this specimen. Please submit a new specimen for reprat testing oc clinically indicated.Tesing performed by:[facility] [address] [place] [address] [id number], Zoltan Ponce MD, PhD [facility] COM[facility] NON [id number] 23:51:00 [place] [address] Patient Name: COLLEEN JOHNSON MR #: [id number] : 1985 Age/Sex: 34/F Req #: [id number] Adm Physician: Ordered by: ZOLTAN MCKNIGHT MD Report #: [id number] Location: ER Room/Bed: Procedure: [id number] US/US PELVIS COMPLETE NON OB Exam Date: 04/12/20 Exam Sabino e: [id number] REPORT STATUS: Signed EX AM: Transabdominal and Transvaginal Pelvic Ultrasound INDICATION: EVAL FOR R IGHT OVARIAN TORSION COMPARISON: None TECHNIQUE: Grayscale transverse and s agittal transabdominal and transvaginal images were obtained of the pelvis. Tr ansvaginal imaging was medically necessary to better evaluate the endometrium and the adnexa. Doppler waveforms were performed of the right ovary to evaluat e arterial and venous flow. CLINICAL HISTORY: 34 year old A0; last menstrual period: 04/05/2020. FINDINGS: Uterus Orientation: Normal Size: 6.4 x 3.4 x 4.0 cm, Normal Mass: None Cervix: Nabothian cysts Endometrium: Thickness: 0.7 cm, Normal. A ppearance: Homogeneous echotexture without focal thickening. Right ovary: Size: 2.0 x 1.4 x 1.7 cm Mass/Cyst: None Left ovary: Nonv isualized Adnexa: Normal Cul-de-sac: No free fluid IMPRESSION: 1. Normal-appearing right ovary with arterial and venous waveforms. No evide nce of right ovarian torsion. 2. The left ovary was not visualized. Sig caden by: Owen Yoo MD on 04/12/2020 11:55 PM Dictated By: OWEN El MD 54 Transcribed B y: LILIA on 04/12/202354 COPY TO: ZOLTAN MCKNIGHT MD CT ABDOMEN/PELVIS [id number] 21:42:00 [place] [address] Patient Name: COLLEEN JOHNSON MR #: [id number] : 1985 Age/Sex: 34/F Req #: [id number] Adm Physician: Ordered by: ZOLTAN MCKNIGHT MD Report #: [id number] Location: ER Room/Bed: Procedure: [id number] CT/CT ABDOMEN/PELVIS W Exam Date: 04/12/20 Exam Time: 210 0 REPORT STATUS: Signed EXAM: CT Abdomen and Pelvis WITH contrast INDICATION: rlq pain COMPARISON: CT d ated 02/07/2018.. TECHNIQUE: Abdomen and pelvis were scanned utilizing a multid etector helical scanner from the lung base to the pubic symphysis after admini stration of IV contrast. Coronal and sagittal reformations were obtained. Rout ine protocol was performed. Scan was performed when during portal venous phase . IV CONTRAST: 100 mL of Isovue 370 ORAL CONTRAST: None COMPLICATIONS: None RADIATION DOSE: Total DLP: 956.24 mGy *cm Estimated effective dose: (DLP x 0.015 x size factor) mSv CTDI vol has been reviewed. It is below the limits set by the Radiation Protocol Co mmittee ([facility]). Dose modulation, iterative reconstruction, and/or weight b ased adjustment of the mA/kV was utilized to reduce the radiation dose to as l ow as reasonably achievable. FINDINGS: LINES and TUBES: None. LOWER THORAX: Unremarkable HEPATOBILIARY: No focal hepatic lesions. N o biliary ductal dilation. GALLBLADDER: There are cholecystectomy clips. SPLEEN: No splenomegaly. PANCREAS: No focal masses or ductal dilatati on. ADRENALS: No adrenal nodules KIDNEYS/URETERS: Kidneys enhanc e symmetrically. No hydronephrosis. No cystic or solid mass lesions. No ston es. GI TRACT: No abnormal distention, wall thickening, or evidence of bowel obstruction. Appendix is normal. PELVIC ORGANS/BLADDER: Unremarkab le. LYMPH NODES: No lymphadenopathy. VESSELS: Unremarkable. PERIT ONEUM / RETROPERITONEUM: No free air or fluid. BONES: There are degenerativ e changes in the spine. SOFT TISSUES: There is an unchanged fat containing umbilical hernia. IMPRESSION: No acute abdominopelvic process. No eviden ce of acute appendicitis. Signed by: Owen Yoo MD on 04/12/2020 9:55 PM Dictated By: OWEN YOO MD 54 Transcribed By: LILIA on 04/12/202154 COPY TO: ZOLTAN ENRIQUE MD Serum or plasma total bilirubin measurement (mass/volume)2020-04-12 19:30:00* Test Item Value Reference Range Interpretation Comments Total Bilirubin (test code = 1975-2) 0.5 0.2-1.2 [facility] HospitalFluoroscopic procedure less than one hour ahxsxhkp0097-69-97 19:30:00* Test Item Value Reference Range Interpretation Comments Aspartate Amino Transf (AST/SGOT) (test code = Aspartate Amino Transf (AST/SGOT)) 21 5-34 [facility] plasma alanine aminotransferase measurement (enzymatic activity/volume)2020-04-12 19:30:00* Test Item Value Reference Range Interpretation Comments Alanine Aminotransferase (ALT/SGPT) (test code = 1742-6) 17 0-55 [facility] Hospitaler[facility] or plasma protein measurement (mass/volume)2020-04-12 19:30:00* Test Item Value Reference Range Interpretation Comments Total Protein (test code = 2885-2) 7.9 6.5-8.1 [facility]er[facility] or plasma albumin measurement (mass/volume)2020-04-12 19:30:00* Test Item Value Reference Range Interpretation Comments Albumin (test code = 1751-7) 3.8 3.5-5.0 [facility] HospitalPlasma globulin measurement (mass/volume) 2020-04-12 19:30:00* Test Item Value Reference Range Interpretation Comments Globulin (test code = 84736-8) 4.1 2.3-3.5 [facility]er[facility] or plasma albumin/globulin mass uogga0618-19-89 19:30:00* Test Item Value Reference Range Interpretation Comments Albumin/Globulin Ratio (test code = 1759-0) 0.9 0.8-2.0 [facility] Hospitaler[facility] or plasma alkaline phosphatase measurement (enzymatic activity/volume)2020-04-12 19:30:00* Test Item Value Reference Range Interpretation Comments Alkaline Phosphatase (test code = 6768-6) 79 40-150 [facility]erum or plasma amylase measurement (enzymatic activity/volume)2020-04-12 19:30:00* Test Item Value Reference Range Interpretation Comments Amylase Level (test code = 1798-8) 41 25-125 [facility]erum or plasma lipase measurement (enzymatic activity/volume)2020-04-12 19:30:00* Test Item Value Reference Range Interpretation Comments Lipase (test code = 3040-3) 16 8-78 [facility] HospitalUrine color eakwswdimwchq4292-76-12 19:27:00* Test Item Value Reference Range Interpretation Comments Urine Color (test code = 5778-6) YELLOW YELLOW [facility] HospitalUrine jybisih0412-12-65 19:27:00* Test Item Value Reference Range Interpretation Comments Urine Clarity (test code = 92605-3) SL CLOUDY CLEAR [facility] Hospitalpecific gravity of Urine by Test strip 2020-04-12 19:27:00* Test Item Value Reference Range Interpretation Comments Urine Specific Jenkins (test code = 5811-5) 1.030 1.010-1.02 5 [facility] pH measurement by automated test qhxqi3861-01-77 19:27:00* Test Item Value Reference Range Interpretation Comments Urine pH (test code = 80721-1) 6.5 5-7 [facility] HospitalU[facility] leukocyte esterase detection by qvzussit9126-45-61 19:27:00* Test Item Value Reference Range Interpretation Comments Urine Leukocyte Esterase (test code = 5799-2) NEGATIVE NEGATIVE [facility] HospitalUrine nitrite ofeqcmccn9241-78-29 19:27:00* Test Item Value Reference Range Interpretation Comments Urine Nitrite (test code = 26989-6) NEGATIVE NEGATIVE [facility] HospitalU[facility] protein measurement by test strip (mass/volume)2020-04-12 19:27:00* Test Item Value Reference Range Interpretation Comments Urine Protein (test code = 5804-0) NEGATIVE NEGATIVE [facility] HospitalUrine glucose gkonpkftf2025-69-92 19:27:00* Test Item Value Reference Range Interpretation Comments Urine Glucose (UA) (test code = 2349-9) NEGATIVE NEGATIVE [facility] HospitalUrine ketones detection by automated test rxbvn5158-66-94 19:27:00* Test Item Value Reference Range Interpretation Comments Urine Ketones (test code = 31137-4) NEGATIVE NEGATIVE [facility] HospitalUrine opiates screening lpms6252-59-74 19:27:00* Test Item Value Reference Range Interpretation Comments Urine Opiates Screen (test code = 86843-4) NEGATIVE NEGATIVE ALL TESTS PERFORMED MANUALLY ON [employer] TOX/SEE TESTMidland Memorial HospitalBarbiturates screen, ocyhp3024-06-36 19:27:00* Test Item Value Reference Range Interpretation Comments Urine Barbiturates Screen (test code = 846487403) NEGATIVE NEGA TIVE [facility] HospitalUrine phencyclidine detection by screening ajrstt7760-47-99 19:27:00* Test Item Value Reference Range Interpretation Comments Urine Phencyclidine Screen (test code = 99188-2) NEGATIVE NEGAT ANOOP [facility] HospitalUrine amphetamines detection by screen method > 1000 ng/zN8648-03-48 19:27:00* Test Item Value Reference Range Interpretation Comments Urine Amphetamines Screen (test code = 26180-8) POSITIVE NEGATI VE This test provides only a screen. Positive results should be repeated by a confi rmatory test.[facility] HospitalFluoroscopic procedure less than one hour scroccwn3931-93-89 19:27:00* Test Item Value Reference Range Interpretation Comments Urine Methamphetamines Screen (test code = Urine Metha mphetamines Screen) NEGATIVE NEGATIVE [facility] HospitalUrine benzodiazepines detection by screening qrtvbq1795-96-74 19:27:00* Test Item Value Reference Range Interpretation Comments Urine Benzodiazepines Screen (test code = 86455-4) POSITIVE NEG ATIVE This test provides only a screen. Positive results should be repeated by a confi rmatory test.[facility] HospitalUrine cocaine measurement (mass/volume)2020-04-12 19:27:00* Test Item Value Reference Range Interpretation Comments Urine Cocaine Screen (test code = 3398-5) NEGATIVE NEGATIVE [facility] HospitalUrine cannabinoids detection by screening tjtcoq1410-28-14 19:27:00* Test Item Value Reference Range Interpretation Comments Urine Cannabinoids Screen (test code = 61492-5) NEGATIVE NEGATI VE THESE RESULTS ARE FOR MEDICAL TREATMENT ONLYTHIS REPORT CONTAINS UNCONFIR MED SCREENING RESULTS*POSITIVE RESULTS WILL BE CONFIRMED BY REFERENCE LAB UPON R EQUEST CUT-OFFDRUG CLASS CONCENTRATION ng/mLAmphetamines 1000Methamphetamines 1000Cocaine 300Opiate 300Phencyc lidine 25Cannabinoid 50Barbiturates 300Benzodiazepine 300Methadone 300[facility] HospitalUrine methadone uxmgnj3124-40-91 19:27:00* Test Item Value Reference Range Interpretation Comments Urine Methadone Screen (test code = 74740-9) NEGATIVE NEGATIVE THESE RESULTS ARE FOR MEDICAL TREATMENT ONLYTHIS REPORT CONTAINS UNCONFIR MED SCREENING RESULTS*POSITIVE RESULTS WILL BE CONFIRMED BY REFERENCE LAB UPON R EQUEST CUT-OFFDRUG CLASS CONCENTRATION ng/mLAmphetamines 1000Methamphetamines 1000Cocaine Metabolite 300Opiate 300Phencyc lidine 25Cannabinoid 50Barbiturates 300Benzodiazepine 300Methadone 300[facility] HospitalUrine urobilinogen measurement by test strip (mass/volume)2020-04-12 19:27:00* Test Item Value Reference Range Interpretation Comments Urine Urobilinogen (test code = 51860-1) 0.2 0.2-1 [facility] HospitalUrine total bilirubin measurement (mass/volume)2020-04-12 19:27:00* Test Item Value Reference Range Interpretation Comments Urine Bilirubin (test code = 1978-6) NEGATIVE NEGATIVE [facility] HospitalUrine erythrocytes hllzcltls7284-88-54 19:27:00* Test Item Value Reference Range Interpretation Comments Urine Blood (test code = 20021-5) MODERATE NEGATIVE [facility] HospitalAutomated urine sediment leukocyte count by microscopy (number/high power field)2020-04-12 19:27:00* Test Item Value Reference Range Interpretation Comments Urine WBC (test code = 5821-4) NONE 0-5 [facility] HospitalErythrocytes detection in urine sediment by light nwdykzmafv3697-21-86 19:27:00* Test Item Value Reference Range Interpretation Comments Urine RBC (test code = 73206-4) 6-10 0-5 [facility] HospitalBacteria detection in urine sediment by light dqwjdrftka4562-18-60 19:27:00* Test Item Value Reference Range Interpretation Comments Urine Bacteria (test code = 83476-2) MANY NONE [facility] HospitalEpithelial cells detection in urine sediment by light uadiultuxy7793-98-72 19:27:00* Test Item Value Reference Range Interpretation Comments Urine Epithelial Cells (test code = 68652-7) MANY NONE [facility] HospitalTransitional cells detection in urine sediment by light uawgoadvcs3419-30-17 19:27:00* Test Item Value Reference Range Interpretation Comments Urine Transitional Epithelial Cells (test code = 8249-5) FEW NONE [facility] HospitalUrine human chorionic gonadotropin (hCG) iykqzvtyf2772-12-74 19:27:00* Test Item Value Reference Range Interpretation Comments Urine Test (test code = 2106-3) NEGATIVE NEGATIVE [facility] HospitalTOXICOLOGY2020-08-10 02:10:0011.7[facility] HospitalBqyapeyALMJXGSZPW7748-75-47 02:10:00* Test Item Value Reference Range Interpretation Comments Morenita Storey TND (test code = Vanco Tr TND) 2200 1 [facility]annCHE[facility] SWJSO4890-16-47 17:36:71503Dmdjhfii HermannCHEM PANEL 2020-03-25 17:36:0010[facility]annCHEM MZGGV2258-00-68 17:36:000.64[facility]annCHEM PKGCU4995-79-39 17:36:56770Mjfdbraz [facility]annCHEM EPDGC4767-99-02 17:36:004.1[facility]annCHEM ZZZUF8671-92-31 17:36:80233Xafctfcf HermannCHEM EPBGE0646-88-01 17:36:0030[facility]annCHEM ZASKQ1278-85-98 17:36:008.4 [facility]annCHE[facility] JRIPP1206-46-26 17:36:007.1[facility]annCHEM PANEL 2020-03-25 17:36:97208Tbogwglj IsqrupyTMHOIHNLOM1400-54-85 14:50:0021.4[facility] XlpxcbdGSOIARLXWT2443-11-60 14:50:00* Test Item Value Reference Range Interpretation Comments Vanco Tr TND (test code = Vanco Tr TND) 1000 1 [facility] NxerkxwRQYTVSOGSR0689-82-27 14:36:0013.7[facility] HermannTOXICOLOGY 2020-03-24 14:36:00* Test Item Value Reference Range Interpretation Comments Vanco Tr TND (test code = Vanco Tr TND) 1100 1 [facility] HermannTRIMETHOPRIM+SULFAMETHOXAZOLE:SUSC:PT:ISOLATE:ORDQN:MONISHA 2020-03-23 12:34:00Staphylococcus aureusMemorial HermannCHEM CSUED3262-71-44 12:20:0092[facility]annCHEM CLYVB9299-06-62 12:20:0011[facility]annCHEM IHYAD6577-75-94 12:20:000.64[facility]annCHEM UYYTY4010-95-87 12:20:76280 [facility]annCHE[facility] XXTFW8341-06-26 12:20:003.7[facility]annCHEM PANEL 2020-03-23 12:20:18343Zofhffoh [facility]annCHEM PEWTJ4371-95-34 12:20:0028[facility]annCHEM IOQLT6897-36-95 12:20:008.2[facility]annCHEM MBDDM6484-74-63 12:20:002.8[facility]annCHEM UIZQK6987-86-16 12:20:0016[facility]annCHEM TKIZX6784-29-51 12:20:0011[facility]annCHEM DZOZN9129-93-86 12:20:007.7 [facility]CHE[facility] WBDQO1188-52-24 12:20:00* Test Item Value Reference Range Interpretation Comments B/C Ratio (test code = B/C Ratio) 17 1 6-25 [facility]annCHE[facility] IWAKC2380-23-35 12:20:48909Nprjzirv HermannCHEM PANEL 2020-03-23 12:20:006.7[facility]annCHEM NDXGA6063-02-16 12:20:0075[facility]annCHEM XUAKQ8554-51-81 12:20:000.5[facility]annCHEM ISBWA2344-92-75 12:20:003.9[facility]annCHEM NLFHD2076-77-61 12:20:00* Test Item Value Reference Range Interpretation Comments A/G Ratio (test code = A/G Ratio) 0.7 1 0.7-1.6 [facility] FehcatwQKFJMLRNLM3172-32-25 12:20:0010.2[facility]annHEMATOLOGY 2020-03-23 12:20:004.12[facility] HbomahtOIAOBZXMBM4315-83-74 12:20:0012.2[facility] UseleofVRKXLFCTDB3163-39-82 12:20:0036.5[facility] CcwcxbpYXJNMOFBOO6942-25-80 12:20:0088.6[facility] CtoewhhBFDTXCWVTO4147-55-06 12:20:00* Test Item Value Reference Range Interpretation Comments MCH (test code = MCH) 29.5 pg 27.0-31.0 [facility] QdhamfrTUYXSISVKD1021-90-26 12:20:0033.3[facility] HermannHEMATOLOGY 2020-03-23 12:20:0013.9[facility] EsqpgqfJYEHWYZUWS2504-60-10 12:20:66808Tmklchtx ZnmspkiQDCZQLUMCO1607-93-79 12:20:008.3[facility] ZgwtavxSUSMRLQJPD2106-89-52 12:20:0063.8[facility] CidjutvZBYOPZXMQQ4038-64-77 12:20:0021.4[facility] [place] DPQFOTAJHO7308-39-09 12:20:009.2[facility] McinbfvUXQYTJQTOZ1418-17-04 12:20:004.6 [facility] MdqgcsoMYKIETDQLO8871-19-25 12:20:001.0[facility] HermannHEMATOLOGY 2020-03-23 12:20:006.5[facility] PraogojPBWXIGNHER7731-56-57 12:20:002.2[facility] CwvkffmWURTFHZCFV6862-92-92 12:20:000.9[facility] DetgxnlKRHERDPGUD4063-57-05 12:20:000.5[facility] JogpadgOBQOCKFNOX3776-50-55 12:20:000.1[facility] [place] URINALYSIS THAVDAUJ6763-55-67 09:07:00* Test Item Value Reference Range Interpretation [...] HPF NONE Urine Source? Clean CatchUR HCG DUIC1192-29-41 09:07:00* Test Item Value Reference Range Interpretation Comments UR HCG QUAL (test code = HCGQLU) NEGATIVE This HCGQL test is NOT applicable for MALE patients.Check with nurse about probable order error.If Tumor Marker Test needed, nurse should order test "HCGTU"(Test #550.18985) Urine Source? Clean CatchDRUGS OF ABUSE SCREEN TB8079-04-33 09:07:00* Test Item Value Reference Range Interpretation [...] NEGATIVE NEGATIV E Urine Source? Clean CatchURINALYSIS GESGFVIE3771-93-94 09:00:00* Test Item Value Reference Range Interpretation [...] HPF NONE Urine Source? Clean CatchUR HCG FGKQ5924-28-62 09:00:00* Test Item Value Reference Range Interpretation Comments UR HCG QUAL (test code = HCGQLU) NEGATIVE This HCGQL test is NOT applicable for MALE patients.Check with nurse about probable order error.If Tumor Marker Test needed, nurse should order test "HCGTU"(Test #550.50093) Urine Source? Clean CatchDRUGS OF ABUSE SCREEN JB3903-51-99 09:00:00* Test Item Value Reference Range Interpretation Comments URN COCAINE (test code = COCAURN) NEGATIVE URN CANNABINOIDS (test code = CANNABURN) NEGATIVE URN AMPHETAMINE (test code = AMPHETURN) NEGATIVE URN BARBITURATE (test code = BARBITURN) NEGATIVE URN BENZODIAZEPINE (test code = BENZOURN) NEGATIVE URN OPIATES (test code = OPIATURN) NEGATIVE URN PHENCYCLIDINE (PCP) (test code = PHENCURN) NEGATIV E Urine Source? Clean CatchURINALYSIS BAWXLDFZ5204-73-55 08:55:00* Test Item Value Reference Range Interpretation [...] HPF NONE Urine Source? Clean CatchUR HCG TFFJ9876-11-36 08:55:00* Test Item Value Reference Range Interpretation Comments UR HCG QUAL (test code = HCGQLU) NEGATIVE This HCGQL test is NOT applicable for MALE patients.Check with nurse about probable order error.If Tumor Marker Test needed, nurse should order test "HCGTU"(Test #550.85151) Urine Source? Clean CatchDRUGS OF ABUSE SCREEN UV9950-73-20 08:55:00* Test Item Value Reference Range Interpretation Comments URN COCAINE (test code = COCAURN) NEGATIVE URN CANNABINOIDS (test code = CANNABURN) NEGATIVE URN AMPHETAMINE (test code = AMPHETURN) NEGATIVE URN BARBITURATE (test code = BARBITURN) NEGATIVE URN BENZODIAZEPINE (test code = BENZOURN) NEGATIVE URN OPIATES (test code = OPIATURN) NEGATIVE URN PHENCYCLIDINE (PCP) (test code = PHENCURN) NEGATIV E Urine Source? Clean CatchURINALYSIS PBNOFMGU7805-25-59 08:53:00* Test Item Value Reference Range Interpretation [...] HPF NONE Urine Source? Clean CatchUR HCG RDGK8923-44-96 08:53:00* Test Item Value Reference Range Interpretation Comments UR HCG QUAL (test code = HCGQLU) Urine Source? Clean CatchDRUGS OF ABUSE SCREEN WP1871-33-92 08:53:00* Test Item Value Reference Range Interpretation Comments URN COCAINE (test code = COCAURN) NEGATIVE URN CANNABINOIDS (test code = CANNABURN) NEGATIVE URN AMPHETAMINE (test code = AMPHETURN) NEGATIVE URN BARBITURATE (test code = BARBITURN) NEGATIVE URN BENZODIAZEPINE (test code = BENZOURN) NEGATIVE URN OPIATES (test code = OPIATURN) NEGATIVE URN PHENCYCLIDINE (PCP) (test code = PHENCURN) NEGATIV E Urine Source? Clean TbyvrQBIOMPLNAS9683-58-15 14:27:0014.1[facility]annCHEM EYOHP7809-57-98 10:40:0099[facility]annCHEM BDLEY0745-63-18 10:40:008[facility]annCHEM PINZJ5953-71-23 10:40:000.59[facility]annCHEM IPGRZ2912-47-04 10:40:15181Gehtrvgt [facility]annCHEM SUIIP0690-59-08 10:40:004.0[facility]annCHEM RVPJE0071-74-90 10:40:74177Fzudlwho [facility]annCHEM WDMYD9591-82-31 10:40:0025 [facility]CHE[facility] TPVZQ1923-49-01 10:40:008.5[facility]annCHEM PANEL 2019-11-03 10:40:006.4[facility]annCHEM YMGTX7061-40-18 10:40:002.8[facility]annCHEM HSXHG9827-22-97 10:40:0051[facility]annCHEM OLFBU9559-41-22 10:40:0041[facility]annCHEM WYEKP3168-16-03 10:40:0084[facility]annCHEM OULJQ2765-07-45 10:40:000.4[facility]annCHEM MIHBM1514-41-69 10:40:008.0 [facility]annCHE[facility] FZNYF0865-19-75 10:40:00* Test Item Value Reference Range Interpretation Comments B/C Ratio (test code = B/C Ratio) 14 1 6-25 [facility]annCHE[facility] WKGLG4510-47-90 10:40:003.6[facility]annCHEM PANEL 2019-11-03 10:40:00* Test Item Value Reference Range Interpretation Comments A/G Ratio (test code = A/G Ratio) 0.8 1 0.7-1.6 [facility]annCHE[facility] MCXMX5876-84-76 10:40:82339Mjxnhxjx HermannHEMATOLOGY 2019-11-03 10:40:0065.6[facility] ZcpfuthNCVCGJFNBA7415-89-83 10:40:0020.6[facility] XatnkstPUKKTEIWZD4532-83-75 10:40:008.8[facility] JcrxybkGCIHEGFEQE4893-70-62 10:40:004.2[facility] XekkddsQCIDWQSDUH1220-44-75 10:40:000.8[facility] [place] UIWYTGDYIS1799-22-05 10:40:006.0[facility] SpupbliLSUIPMHXAC3121-29-17 10:40:001.9 [facility] ShnleioVAFIWDHLDO0352-07-27 10:40:000.8[facility] HermannHEMATOLOGY 2019-11-03 10:40:000.4[facility] WatmopmJKKNFDKTOP3199-71-28 10:40:000.1[facility] BiedbowLIWIWHVZVF4245-05-07 10:40:009.1[facility] ElfdhhxUBRPWANATQ9537-29-10 10:40:004.27[facility] UwnbiayERAQYUBOMZ0696-04-25 10:40:0012.4[facility] VNZQURMLBN0564-12-01 10:40:0038.1[facility] DjonywsRBIFGJJLIV6656-84-15 10:40:00 89.2[facility] CkepncvAGOCMZEOTK8178-12-74 10:40:00* Test Item Value Reference Range Interpretation Comments MCH (test code = MCH) 29.0 pg 27.0-31.0 [facility] GsaidzaZUELSTJJVD9230-17-46 10:40:0032.5[facility] HermannHEMATOLOGY 2019-11-03 10:40:0013.1[facility] VnenenxPLFZWMDWFY4717-39-80 10:40:78994Axpioqzx EhtveupNUYXRTZZGI2287-20-74 10:40:008.9[facility] HermannSPECIAL CHEMISTRY 2019-11-03 10:40:005.3[facility]annCHEM EETOU6072-34-86 10:09:0096[facility]annCHEM KLXLY9128-93-85 10:09:009[facility]annCHEM OBLRB9906-32-92 10:09:000.70[facility]annCHEM GNQKG9390-49-92 10:09:09460Huobcjbv HermannCHEM YPFYO8272-82-90 10:09:004.0[facility]annCHEM UNXMK9925-73-81 10:09:75275 [facility]annCHE[facility] POJRE7530-15-39 10:09:0026[facility] HermannCHEM PANEL 2019-11-02 10:09:008.3[facility]annCHEM AOJYP5012-31-03 10:09:009.0[facility]annCHEM YUVVO8807-57-41 10:09:06467Esrluqkx [place]- CTA IZWNQ2124-55-91 20:38:00 [facility] 1985 Age/S: 33 / F [address] [facility] Unit #: [id number] Loc: [place] [address] Phys: Loreto Whiting MD Acct: [id number] Dis Date: Status: REG ER PHONE #: [phone] Exam Date: 08/16/20191954 FAX #: [phone] Reason: SOB, pleuritic CP, hemoptysis EXAMS: CPT CODE: [id number] CTA CHEST 12265 REASON FOR EXAM: SOB, pleuritic CP, hemoptysis [...] PAGE 1 Signed Report (CONTINUED) [facility] 1985 Age/S: 33 / F [address] [facility] Unit #: [id number] Loc: [place]dy [place] [address] Phys: Loreto Whiting MD Acct: [id number] Dis Date: Status: REG ER PHONE #: [phone] Exam Date: 08/16/2019 1955 FAX #: [phone] Reason: SOB, p leuritic CP, hemoptysis EXAMS: CPT CODE: [id number] CTA CHEST 70550 <Continued> segment of the left lower lobe may represent an infectious process. Remainder of the lungs are clear. Location: [facility] at 2037 Reported and signed by: Carlton Alcaraz MD CC: Loreto Whiting MD Technologist:EDY LUNA RT(R),RDMS,CT CTDI: DLP: Trnscb Date/Time: 08/16/2019 (2037) t.[id number].[id number] Orig Print D/T: S: 08/16/2019 (2040) PAGE 2 Signed Report - XR CHEST 2 [id number] 20:03:00 Name: COLLEEN JOHNSON [facility] : 1985 Age/S:33 /F [facility] [facility] Unit#:[id number] Loc: [place] [address] Phys: Kaylee Whiting MD Dis Date: PHONE #: [phone] Status: REG ER FAX #: [phone] Exam Date: 08/16/2019 Re ason: SOB EXAMS: CPT CODE: [id number] XR CHEST 2 V 29742 REASON FOR EXAM: SOB Exam Order Date: 08/16/2019 5:54 PM Ordering MCary: Hector Whiting MD PROCEDURE: - XR CHEST [...] IMPRESSION : No acute cardiopulmonary process. Location: [facility] at 2002 Reported and signed by: Carlton Alcaraz MD CC: Cailin Whiting MD Technologist: EDY LUNA RT(R),R DMS,CT Trnscrpt Data: 08/16/2019 (2002) t.SDR.RR31 Orig Print D/T: S: 08/16/2019 (2006) PAGE 1 Signed Report [id number] 18:37:00* Test Item Value Reference Range Interpretation Comments D-DIMER (test code = DDIMER) < 100 ng/ml < 600 COMPREHENSIVE METABOLIC [id number] 18:35:00* Test Item Value Reference Range Interpretation [...] code = ALKP) 74 U/L 38-126 N IHAVPOEW-F5909-75-31 18:35:00* Test Item Value Reference Range Interpretation Comments TROPONIN-I (test code = TROPI) <0.015 ng/mL 0.00-0.056 N COMPREHENSIVE METABOLIC AWMIQ4509-85-11 18:22:00* Test Item Value Reference Range Interpretation [...] TOTAL (test code = ALKP) IUnit/L 45-117 NMQMBNLS-E9235-25-31 18:22:00* Test Item Value Reference Range Interpretation Comments TROPONIN-I (test code = TROPI) ng/mL 0-0.045 CBC W/AUTO HRDB7933-88-69 18:15:00* Test Item Value Reference Range Interpretation [...] MDIFF) NO ANKLE 3 VIEW RT - [id number] 19:27:00 [place] [id number] Patient Name: COLLEEN JOHNSON MR #: [id number] : 1985 Age/Sex: 33/F Req #: [id number] [facility] Physician: Ordered by: GLYNN BHATT MD Report #: [id number] [facility] Room/Bed: Procedure: [id number] HOPD/ANKLE 3 VIEW RT - HOPD Exam [...] on 07/17 COPY TO: GLYNN BHATT MD MDFKAZZKZZSR0215-14-54 07:19:0010.1[facility] FtplesdHDCQLEQIVGLC7908-11-57 07:19:00* Test Item Value Reference Range Interpretation Comments B/C Ratio (test code = B/C Ratio) 20 1 6-25 [facility] FirvjvhEQNEUVZHLPFT4558-09-80 07:19:004.3[facility]annELECTROLYTES 2019-05-25 07:19:00* Test Item Value Reference Range Interpretation Comments A/G Ratio (test code = A/G Ratio) 0.9 1 0.7-1.6 [facility] XvroaycGAJQIKAWAUVV4315-71-25 07:19:0094[facility]annELECTROLYTES 2019-05-25 07:19:0013[facility] BrgvywwXGAZZBJMTJRH6834-33-51 07:19:000.66[facility] BnzgtgsJRPBCEWOQRGB9191-41-26 07:19:08386Rpoygyxy LindfhkHDKYBHGSSOJE6453-61-37 07:19:004.1[facility] MsesmtgTQBGLXLHDKCY0429-21-30 07:19:40324Mivzpcos [place] QYYXBFEUQBSM7670-78-65 07:19:0024[facility] RjsnlcrEAAYXLWXGHEW5777-44-71 07:19:00 9.3[facility] OxohdkeMLQSAOMKSQNA0448-64-89 07:19:008.2[facility] [place] QTTOHPIKQWFC2585-77-46 07:19:003.9[facility] UkjbdqvBLNXYYTFQXNQ8621-83-58 07:19:0025[facility] VvtrdleTKKTFRZTJBUZ9092-98-59 07:19:0014[facility] [place] MEJUAGPNHEVT3575-58-74 07:19:0098[facility] PkzprknVSJLCTNYJZOW0530-68-44 07:19:00 0.4[facility] NcmvskiFDONODFNNIRR0101-34-85 07:19:32757Xapvjkcg [place] LCSIZIMPKYHIZ5220-35-97 07:19:00Negative *NA*(05/25/19 2:19 AM)[facility] RNQIDZCRRK6473-68-17 07:19:0014.7[facility] TtfsftpRQPQSYHVSE4412-13-60 07:19:00 4.90[facility] SamaxjtQXVDHUFDUS9203-67-93 07:19:0014.1[facility]annHEMATOLOGY 2019-05-25 07:19:0043.2[facility] ChiselgZGOCOZXVDB6106-14-34 07:19:0088.2[facility] HfhuchqDEBMHCCCPW3904-89-56 07:19:00* Test Item Value Reference Range Interpretation Comments MCH (test code = MCH) 28.8 pg 27.0-31.0 [facility] LbgalqsSHADSEWLXJ3003-19-73 07:19:0032.7[facility] HermannHEMATOLOGY 2019-05-25 07:19:0013.2[facility] PdaiqjkKDGWWMKRVV5686-13-53 07:19:60157Yrkgivan CujfgylYMXFJABOHY9918-70-30 07:19:008.5[facility] IbciywaINSEEUQRKS5857-38-32 07:19:0066.4[facility] FweufamZVZDHEZHKH4726-50-94 07:19:0021.1[facility] LKOGTPXNZN5822-65-99 07:19:007.4[facility] SopgndbSWSHCOZRCL8340-03-88 07:19:004.1 [facility] EzxxgbjYWAJBJRVNH9454-52-48 07:19:001.0[facility]annHEMATOLOGY 2019-05-25 07:19:009.8[facility] PopkbswPZAVTCNKBJ2909-76-24 07:19:003.1[facility] IfiazdrWGTBGJOTIN4686-99-60 07:19:001.1[facility] NmxyfeeUMOMJVXAOS7952-75-45 07:19:000.6[facility] IppnkmnHGWTUUGHOR9034-21-44 07:19:000.1[facility] HermannCHEM NACLA4238-85-28 22:11:72383Scqrnrhl HermannCHEM TAMHN8925-65-58 22:11:0010 [facility]annCHEM UXHOP1204-47-73 22:11:000.78[facility]annCHEM PANEL 2019-04-03 22:11:99929Rgcspqny HermannCHEM ZEUEK0346-98-82 22:11:003.9[facility] HermannCHEM EVWHR8732-48-79 22:11:37799Eiztdnyc HermannCHEM WEJRA8386-03-02 22:11:0025[facility] HermannCHEM CFDAE4578-49-32 22:11:008.8[facility]annCHEM BBTPM5524-13-49 22:11:89474Hvtveijv HermannCHEM VBSJD0751-25-93 22:11:0010.9 [facility] QvzpeegXASXQRHUTSAOA0938-45-75 22:11:00Negative *NA*(04/03/19 5:11 PM) [facility] YbektrgCXNFSWPMQO7164-32-28 22:11:0011.5[facility]annHEMATOLOGY 2019-04-03 22:11:004.85[facility] KsjsgwxSBVTHAOQGV8700-55-91 22:11:0014.2[facility] HrwyysjJKNKDWPVQO6465-25-33 22:11:0043.0[facility] DjaezafXGPWAZNVVH9618-59-30 22:11:0088.7[facility] VefdsavOFTEQCRWRV2214-85-05 22:11:00* Test Item Value Reference Range Interpretation Comments MCH (test code = MCH) 29.2 pg 27.0-31.0 [facility] KrqurlsIVKFWMJGDZ8297-91-32 22:11:0033.0[facility] HermannHEMATOLOGY 2019-04-03 22:11:0013.3[facility] JzvxijnKRFMXSZXFE2918-98-47 22:11:03580Osinabzx PcqevquCHSQJSNZZZ7004-30-03 22:11:008.4[facility] ScadiuvPETCKQKDVY0625-12-02 22:11:0066.0[facility] LpywaptFGYWEMAWYD1241-70-64 22:11:0021.2[facility] QQWWSPDLIC4734-81-97 22:11:008.2[facility] VzdthocNWTJKUZLZR6241-87-98 22:11:003.6 [facility] BuunwchCZORQBHICN4196-72-94 22:11:001.0[facility]annHEMATOLOGY 2019-04-03 22:11:007.6[facility] VzioyhkILRRMUNEXQ6018-08-78 22:11:002.4[facility] MdbocvaSHXNKAXYDZ3102-58-12 22:11:000.9[facility] TfjkpxtXNVLJHTLYG7658-87-64 22:11:000.4[facility] QyzvherHATNLDIMYV3498-19-26 22:11:000.1[facility] PIRGSKDPZO3325-12-26 08:46:0011.2[facility] JtyuscxEFAQKAHFUD2529-90-13 08:46:00 13.7[facility] GdvtvlmHCGZVDHAJV2546-44-92 08:46:008.9[facility]annHEMATOLOGY 2019-03-24 08:46:004.66[facility] WcwsfctBIDKDGAUJV6641-73-62 08:46:82839Jxakzvio JajirabRYULICSJQR3795-90-76 08:46:00* Test Item Value Reference Range Interpretation Comments MCH (test code = MCH) 29.5 pg 27.0-31.0 [facility] ThsqsbyBENPIYCXZP7137-32-86 08:46:0033.8[facility] HermannHEMATOLOGY 2019-03-24 08:46:0013.7[facility] WvusbpoXHTRQPTDFU7883-92-55 08:46:0040.6[facility] CknyfbvVAUWELRSNC0297-41-26 08:46:0087.1[facility] KtcmjgvCMBENPCYJB0136-38-27 08:46:003.3[facility] YtgpfkmXBPDSZXXXR1687-35-64 08:46:007.6[facility] YGQQUNXHIM3792-00-93 08:46:000.1[facility] DjdrsstECUIRKJKBI5304-04-35 08:46:000.4 [facility] LjdwadsPIQSWVPWOY9257-72-02 08:46:0065.7[facility] HermannHEMATOLOGY 2019-03-24 08:46:0022.6[facility] IuoeiwnCJTSONLRFM8820-34-31 08:46:007.4[facility] UmroerjXKUWBNBRSJ4840-68-89 08:46:000.8[facility] KvcyqyoEXAJQASAFY5787-24-42 08:46:000.8[facility] PtgqwnfNLMYXDLWIU7592-70-51 08:46:002.5[facility] HermannCHEM NIZJP0597-97-64 03:31:00<0.05[facility] HermannCHEM IQNYH4920-16-05 22:26:001.7 [facility] HermannCHEM VXTTH0411-37-47 17:57:001.7[facility] HermannELECTROLYTES 2019-03-23 17:57:0011.5[facility] UbmqncqBRBBDJQTXVSO2042-13-18 17:57:0099[facility] MidpripCBTGNGFGBIKQ9285-99-79 17:57:87886Xyjbspya YcuscaeCMIRCEHZEGHB2853-57-05 17:57:008.8[facility] AcaluabSGQGDCAXNYUF1106-95-23 17:57:0025[facility] YRXIKMWRMCKK5114-49-11 17:57:23691Bkslknve AyhxrxbELSYWKYELNSU7392-37-78 17:57:003.5[facility] VazbgapQWEPZGQFVPPD8550-43-78 17:57:84509Oasgrsip [place] WWFLDSCGWMHH6701-20-44 17:57:000.79[facility] EnbwfyrCLYETUPHQLZP7424-96-50 17:57:0010[facility] DdvkjpvNJHAXIGYPB4397-20-76 17:57:000.7[facility] SEHMYJTQEC9830-60-80 17:57:000.3[facility] ExapxtaNQFAKZMMMC9470-83-01 17:57:001.0 [facility] QcrcoeeCWNHEYKZDZ9657-22-36 17:57:003.1[facility] HermannHEMATOLOGY 2019-03-23 17:57:000.1[facility] GcvzrubSEXNPPKLQB5776-05-42 17:57:008.0[facility] PnagedrFWUOLRPVOA0672-27-37 17:57:002.1[facility] EhhfcdlHXZAXMZZAD0000-66-81 17:57:0018.5[facility] CvxrkmuFGJCYKWURG3026-32-83 17:57:006.6[facility] [place] UKBZGPRTYT3118-96-00 17:57:0070.8[facility] JzuioimZEZVTHRDFD9692-93-25 17:57:00 271[facility] DpxmgkoXALMBMWTYH2989-27-44 17:57:008.0[facility] HermannHEMATOLOGY 2019-03-23 17:57:0013.6[facility] DdbkcqeTFEZVUPYGP3033-41-25 17:57:00* Test Item Value Reference Range Interpretation Comments MCH (test code = MCH) 29.3 pg 27.0-31.0 [facility] WrzvsukBJVKPWEBHL5327-45-63 17:57:0033.3[facility] HermannHEMATOLOGY 2019-03-23 17:57:0088.1[facility] HaexyaiAODYFJGHYJ6598-55-94 17:57:0014.2[facility] IrgvfsiWIQZBAULRX7572-15-97 17:57:0042.6[facility] CqjctrvANOZFSIXOG3930-90-11 17:57:004.84[facility] JuwfnihODUROIIVBH9460-33-13 17:57:0011.2[facility] [place] CHEM NKRSB1528-80-13 08:05:005.1[facility] HermannCHEM BUNFZ3816-50-14 08:05:001.7 [facility] FqcrpybANLJMWCZWITZ6680-38-88 08:05:0010.8[facility] HermannELECTROLYTES 2019-03-07 08:05:13725Vrfazddu HlcwazoATMEVXYJBPQT2557-66-13 08:05:008.8[facility] MpcbjeiJTMILFFVFXDM0261-89-13 08:05:0029[facility] WrbagccSZMDKWNUQUYS9524-74-02 08:05:11128Yxcbzrob QancdjiIFMNBLONTQYG3804-87-20 08:05:003.8[facility] [place] IOWJRHJOETHT4374-46-17 08:05:0011[facility] IebciguNDHWEMRQRDDQ2342-95-31 08:05:00 0.78[facility] RhpdkxaXKNAWXZSUWKA0829-15-88 08:05:94211Cpbvrkpx [place] UCRVQLCGYWWV6659-22-51 08:05:05497Qicsbozi ZddqvzcYVOCEOYDCM5070-64-20 08:05:00 256[facility] XcsvhzxYCQYUUHHSY1880-61-95 08:05:008.9[facility]annHEMATOLOGY 2019-03-07 08:05:0013.6[facility] ZlxlyscVCYWQXOQTI0490-07-96 08:05:0033.8[facility] AufsypeWAHYAUTOZL9745-80-55 08:05:0086.3[facility] JxmfqiwGBAMVWQUPW7780-78-59 08:05:00* Test Item Value Reference Range Interpretation Comments MCH (test code = MCH) 29.2 pg 27.0-31.0 [facility] UbybuedHGUUUUGISN8652-89-88 08:05:0013.5[facility]annHEMATOLOGY 2019-03-07 08:05:004.63[facility] NcyfcniXUGNPDEUUF4022-09-40 08:05:0039.9[facility] TitvccwPZFHUOMKDS4146-65-79 08:05:0010.0[facility] UkqfsffKSJQDJBFYG9103-07-60 08:05:000.1[facility] NytfnzkGGEQTDRWJJ8505-08-25 08:05:000.4[facility] [place] TLRKISOJGL1487-48-45 08:05:004.4[facility] TwdzwoeHENLYDYEWG2880-95-47 08:05:002.7 [facility] XqsaigqTJQYKUIPKL7189-03-97 08:05:000.7[facility]annHEMATOLOGY 2019-03-07 08:05:000.7[facility] PamlxjpCUNOWYAYHX4264-43-96 08:05:006.1[facility] NibykfbCHHTCNWGFQ8703-26-96 08:05:006.7[facility] YhcxlcoZDDULAFVTP2111-10-44 08:05:0026.7[facility] FcrpjjyPDZHSTMARR3959-03-99 08:05:0061.5[facility] CHEM TQJXQ6323-38-53 10:30:004.2[facility] HermannCHEM PJPIW1363-98-09 10:30:001.8 [facility] NvjorwrMOMXNSDMQRAJ7726-21-47 10:30:004.0[facility] HermannELECTROLYTES 2019-03-06 10:30:68790Zyxcpxnb DyjabpnCIROETLJUNOE1541-16-50 10:30:0026[facility] OcdaykxORXFLMRLHRCL9765-98-63 10:30:74058Fcneezaf FzuvrwhKBQBANBJCPXV7534-31-85 10:30:000.71[facility] NbbfbzrYJIPPCNXICHK0793-75-39 10:30:008.6[facility] FKHCGNDXQNRX3227-82-94 10:30:41546Pgkqgbyj SnhfnubFPWXNKDXDTTH8144-40-05 10:30:31864Vxunuels RltqkwwYSEGSLWZORXI3819-59-95 10:30:0011[facility] [place] LRHPNDVIXPYZ4853-23-27 10:30:0011.0[facility] JnsxpidNBTALKWXII7143-99-05 10:30:00 4.7[facility] AywsasgYJWSGGFGKS4220-46-73 10:30:0027.0[facility]annHEMATOLOGY 2019-03-06 10:30:007.3[facility] MafuzkkNBWJUPZMWY3675-10-61 10:30:0059.8[facility] NuylotzEBAPEGEDRM7259-54-84 10:30:000.4[facility] MopamviNDFZVWXEZK6148-38-72 10:30:002.3[facility] MavyyalRBLXDOQWHQ0209-16-74 10:30:000.6[facility] [place] ILKYMGJGUI3840-88-54 10:30:001.2[facility] JosaaetTDNPFXUUIO7271-33-69 10:30:005.1 [facility] AqzbtvwCNVBCVFOWX5962-29-85 10:30:000.1[facility]annHEMATOLOGY 2019-03-06 10:30:0037.4[facility] JddhyckUMQTQWBJPR5836-42-94 10:30:008.5[facility] HwuhcrpXASVXBISTE3029-95-23 10:30:004.32[facility] JxvavjeSSGAZFEGPQ6168-06-01 10:30:0012.7[facility] NrtbjmzWZROTQEDQA5029-28-19 10:30:0086.6[facility] [place] DHAJRBWCZV5130-75-79 10:30:008.7[facility] DooumngAABNJXXZTV9235-13-07 10:30:29767 [facility] DqmjgwxWHYWJGIHIN8799-69-58 10:30:00* Test Item Value Reference Range Interpretation Comments MCH (test code = MCH) 29.3 pg 27.0-31.0 [facility] DlxfnslMAVPWZFBOS4308-05-09 10:30:0033.9[facility]annHEMATOLOGY 2019-03-06 10:30:0013.7[facility] CfvrtxqIQXURGOIYR8324-17-18 16:55:0017.8[facility] OabmectIAZTLLFRUV2263-84-61 16:55:00* Test Item Value Reference Range Interpretation Comments Morenita Storey TND (test code = Chandanao Tr TND) 1300 1 [facility]annCHEM ALWDI2338-13-59 08:21:004.6[facility]annCHEM PANEL 2019-03-04 08:21:001.7[facility] FekotfwVHEJHJXRBQLL9996-28-00 08:21:008.6[facility] GosysrvTOZDHCIJPIKI1754-22-13 08:21:14417Cnoyywta BuuqcrmITZTBKKLFSJE2509-28-64 08:21:000.62[facility] DznxnczLBDUNTYBLFKL8815-04-00 08:21:003.6[facility] [place] APUFRXXDXHNS7079-35-81 08:21:55673Phmmoyeg LkgbjesQBHLBLZXBGAJ1184-61-07 08:21:97139Jawxrtjn NypluzdWEJWUNUSGCKU6097-97-99 08:21:0028[facility] ULYPWINRQFVF3834-20-46 08:21:008.2[facility] WvwfbbtMOWIBVDDOWET8827-11-77 08:21:007[facility] BmorllaQJDXZRVFPHLX7533-74-60 08:21:94814Opqtewfc [facility] ZZOQLSJRNT5758-17-10 08:21:0012.5[facility] HtpqoohJRZYNBLHSZ5946-50-34 08:21:00* Test Item Value Reference Range Interpretation Comments MCH (test code = MCH) 29.7 pg 27.0-31.0 [facility] SspekngVKZJGQNPCH7454-07-11 08:21:0086.9[facility]annHEMATOLOGY 2019-03-04 08:21:0036.5[facility] WsugjdwGDSLXCWICD5375-26-24 08:21:96822Pfizxwlp NholufgCABOIZEABX6638-90-73 08:21:0013.9[facility] JshqxhaWPQFTFCZQO5924-85-85 08:21:008.9[facility] XzsayhfGEXNGURAYZ4549-89-32 08:21:009.0[facility] SXMTNGZJMA1359-33-53 08:21:0034.2[facility] CaglekiHAVHBZIWPN9565-56-95 08:21:00 4.20[facility] PqbgwxhPBRDAOBWZG4599-29-81 08:21:005.2[facility]annHEMATOLOGY 2019-03-04 08:21:002.6[facility] NogvhqwHXRTVWEVMK6958-96-97 08:21:000.8[facility] MnfqpbcVKBABOGNVL5726-57-53 08:21:000.4[facility] NgzdmhhCXWJNZAGJE3860-05-12 08:21:0057.6[facility] OlqnixoVSRNOUVIOZ7853-10-54 08:21:0028.4[facility] XKGNPNCVOC0681-50-25 08:21:008.8[facility] GhgjeyxCMCIOWQGGR0021-05-93 08:21:004.1 [facility] FhmpijjZVRIWLYWLT8355-53-60 08:21:001.1[facility]annHEMATOLOGY 2019-03-04 08:21:000.1[facility] HermannCIPROFLOXACIN:SUSC:PT:ISOLATE:ORDQN:MONISHA 2019-03-02 22:15:00Staphylococcus aureusMemorial ZpennsvRVAMBDJBMV7710-72-00 16:54:00* Test Item Value Reference Range Interpretation Comments Morenita SANCHEZD (test code = Morenita Tr TND) 1300 1 [facility] HiwjbfbOVLTBULTNK3062-83-62 16:54:0014.7[facility]annURINE AND STOOL 2019-03-01 21:13:00Negative (03/01/19 4:13 PM)[facility] STOOL 2019-03-01 21:13:00Negative (03/01/19 4:13 PM)[facility]OL 2019-03-01 21:13:0087[facility] AND YJCRF4886-46-44 21:13:003[facility] AND DQGDU0890-55-57 21:13:00* Test Item Value Reference Range Interpretation Comments UA pH (test code = UA pH) 7.0 1 5.0-8.0 [facility] DZNOI4652-98-80 21:13:00Large *ABN*(03/01/19 4:13 PM) [facility] HHOZJ5078-33-94 21:13:00Negative *NA*(03/01/19 4:13 PM) [facility] ZBOEP1799-77-01 21:13:00* Test Item Value Reference Range Interpretation Comments UA Spec Grav (test code = UA Spec Grav) 1.010 1 [facility] SEIVO7685-80-54 21:13:00Slight *ABN*(03/01/19 4:13 PM) [facility] QECYY0261-77-61 21:13:00Yellow *NA*(03/01/19 4:13 PM) [facility]annCHEM MFANL0052-38-85 08:18:003.4[facility]annCHEM PANEL 2019-03-01 08:18:007.2[facility]annCHEM MIIUG5571-34-20 08:18:0086[facility]annCHEM RPEBO8782-12-47 08:18:000.5[facility]annCHEM ZCWEB7920-73-31 08:18:0012[facility]annCHEM FYRPK2055-35-25 08:18:0020[facility]annCHEM UXDXJ3178-68-24 08:18:00* Test Item Value Reference Range Interpretation Comments A/G Ratio (test code = A/G Ratio) 0.9 1 0.7-1.6 [facility] HermannCHEM BICZK6939-89-96 08:18:00* Test Item Value Reference Range Interpretation Comments B/C Ratio (test code = B/C Ratio) 16 1 6-25 [facility] HermannCHEM VUWQW4747-30-72 08:18:003.8[facility]annHEMATOLOGY 2019-03-01 08:18:00* Test Item Value Reference Range Interpretation Comments INR (test code = INR) 1.14 1 0.85-1.17 [facility] XuvziqbHABLLFWDEU7914-72-15 08:18:00* Test Item Value Reference Range Interpretation Comments PTT (test code = PTT) 38.3 s 22.9-35.8 [facility] EmlsqivNMFULTGFKV5698-02-38 08:18:00* Test Item Value Reference Range Interpretation Comments PT (test code = PT) 14.4 s 12.0-14.7 [facility] HermannCHEM PPDJK1304-92-70 04:02:001.4[facility] HermannENDOCRINOLOGY 2019-03-01 04:02:00<1[facility] UrpxdlhTCQJMQKMYD7622-75-96 00:33:0010.8[facility] KufinbzPJPXBQWWEL6714-58-64 00:33:00* Test Item Value Reference Range Interpretation Comments Vanco Tr TND (test code = Vanco Tr TND) 2000 1 [facility] HermannBACTERIAL - CFHSHBWR6211-62-47 16:23:00Negative (01/30/19 11:23 AM)[facility] LnvmfimRQJJCSSZWB9416-30-48 18:29:0018.9[facility] HermannTOXICOLOGY 2019-01-29 18:29:00* Test Item Value Reference Range Interpretation Comments Vanco Tr TND (test code = Vanco Tr TND) 1330 1 [facility] ZrrfqrhSOVIBYWBVU6789-96-11 08:44:00* Test Item Value Reference Range Interpretation Comments MCH (test code = MCH) 28.5 pg 27.0-31.0 [facility] QxhodcuXSMBNVDSMH7873-27-79 08:44:0087.8[facility] HermannHEMATOLOGY 2019-01-29 08:44:0038.5[facility] RkyazvcOPHOASCHWL3183-28-95 08:44:0012.5[facility] KlqnahiMECZAGSLFV1767-48-57 08:44:004.38[facility] ObtyxxqVRXJLBZVDF6554-86-89 08:44:84344Ayvazbkg HldxytwONVVOFAYJH3698-53-17 08:44:0032.5[facility] [place] HQVRLWCRFP0012-14-91 08:44:008.5[facility] NmngvaaIQWDQNIFRG3515-34-50 08:44:00 13.5[facility] YtlfnobJPHWOIEBWQ4617-93-23 08:44:008.1[facility] HermannTOXICOLOGY 2019-01-28 17:25:0018.3[facility] IzwqapwUJUHQRKIHG7633-32-35 17:25:00* Test Item Value Reference Range Interpretation Comments Chandanao Tr TND (test code = Vanco Tr TND) 1230 1 [facility] HermannCEFEPIME:SUSC:PT:ISOLATE:ORDQN:EUR4949-99-44 00:35:00 Staphylococcus aureusMemorial HermannCEFEPIME:SUSC:PT:ISOLATE:ORDQN:MONISHA 2019-01-28 00:35:00Klebsiella pneumoniae ssp pneumoniaeMemorial [place] CEFEPIME:SUSC:PT:ISOLATE:ORDQN:WIP2067-66-24 00:35:00Proteus mirabilisMemorial HermannURINE AND SYZBL0001-11-43 11:31:00Negative (01/27/19 6:31 AM)[facility] APXAR2984-83-09 11:31:002[facility] STOOL 2019-01-27 11:31:005[facility] SHDKM2121-83-17 11:31:00* Test Item Value Reference Range Interpretation Comments UA pH (test code = UA pH) 6.0 1 5.0-8.0 [facility] JGSTA0157-20-46 11:31:00Yellow *NA*(01/27/19 6:31 AM) [facility] CECER5394-12-98 11:31:00* Test Item Value Reference Range Interpretation Comments UA Spec Grav (test code = UA Spec Grav) 1.028 1 [facility] TOUGO0344-07-28 11:31:00Slight *ABN*(01/27/19 6:31 AM) [facility] EWPAY8815-12-84 11:31:00Negative (01/27/19 6:31 AM) [facility] FRDSY1208-82-62 11:31:00Negative *NA*(01/27/19 6:31 AM) [facility] LFWZG2672-13-29 11:31:00Negative (01/27/19 6:31 AM) [facility] EMSM7979-97-29 11:31:00Negative (01/27/19 6:31 AM)[facility] WKVCH7670-19-97 08:45:001.5[facility]CHE[facility] PMZQI5350-54-92 08:08:00* Test Item Value Reference Range Interpretation Comments B/C Ratio (test code = B/C Ratio) 19 1 6-25 [facility] INJCH3149-68-72 08:08:003.9[facility]annCHE[facility] PANEL 2019-01-27 08:08:00* Test Item Value Reference Range Interpretation Comments A/G Ratio (test code = A/G Ratio) 0.9 1 0.7-1.6 [facility]CHE[facility] KEAPW9563-92-04 08:08:0013.9[facility]annCHE[facility] PANEL 2019-01-27 08:08:33948Lkhhmaux HermannCHEM KBHYR0974-59-47 08:08:0018[facility] XFSPE7162-56-11 08:08:0092[facility] UVMUJ9254-86-44 08:08:003.9[facility] RBOQF0797-42-03 08:08:000.3[facility] TQKGR6398-20-51 08:08:003.6[facility] DYOQD3112-99-61 08:08:0024 [facility] YRXLN2515-58-61 08:08:007.5[facility]annCHEM PANEL 2019-01-27 08:08:37637Pkpzoqkf HermannCHEM HBPGM1940-41-93 08:08:0024[facility]ann[facility] YJGIT3948-34-11 08:08:78201Yomcarpi HermannCHEM IXGHP1806-98-24 08:08:008.5[facility]CHE[facility] FYKCY5900-61-71 08:08:0014[facility] AEBTC4156-69-13 08:08:000.75[facility]annCHE[facility] JPWVU7654-74-00 08:08:0091 [facility] JaqlukfNWMCVEHZYX4840-16-27 08:08:006.5[facility]annHEMATOLOGY 2019-01-27 08:08:008.1[facility] QjkfgjrEXFIIPHMHC6579-38-28 08:08:000.9[facility] UkyksqbSZFFAKCYUS0137-96-46 08:08:002.9[facility] PqscppjHFKINPOTGZ6871-16-11 08:08:007.4[facility] ItfinilBMMQSDNCGB6619-68-99 08:08:001.0[facility] HLLMTFKXWQ5875-26-65 08:08:000.8[facility] CyezfhrCPZNLALYTA8966-93-99 08:08:000.1 [facility] VythshfFPVEEOLFKO6018-66-07 08:08:0023.6[facility]annHEMATOLOGY 2019-01-27 08:08:0060.9[facility] QgazdwuRXFOWZTVOQ5191-86-37 08:08:0012.2[facility] GtoxvzsVBDLERFNPI2621-09-79 08:08:0032.4[facility] XwgorueWJIGAAYDZD9467-74-99 08:08:0013.7[facility] BoyfscrUQVTYDYAWF7689-23-51 08:08:00* Test Item Value Reference Range Interpretation Comments MCH (test code = MCH) 28.5 pg 27.0-31.0 [facility] JcxxfaqPUXCOHDQKQ6555-73-14 08:08:0088.2[facility]annHEMATOLOGY 2019-01-27 08:08:0041.4[facility] AehmhxeFILHKXWYWA2695-74-55 08:08:004.69[facility] YwbebmjRHQSYIUBUW6856-82-15 08:08:0013.4[facility] LwbcuyvDFXIYKRGXH8541-83-79 08:08:008.8[facility] HpjgwpeLTORBQDGUA5759-86-51 08:08:83250Ppeoakqf HermannCHEM GESMF2841-45-23 01:46:001.0[facility] YdecpgsVAPRJGRBRDQP6324-27-19 01:46:99510 [facility] TuqchkaFVDQMGSHAURQ0989-76-72 01:46:001.04[facility]annELECTROLYTES 2018-12-13 01:46:0071[facility] LmngaifGFVIQJGMNQCY3523-44-18 01:46:0088[facility] NqgruobAVHEJFAYCZDR9457-88-29 01:46:003.4[facility] UfwmdclUUMJCVWFVXQS1897-78-74 01:46:0015[facility] VkfpxczJKWTSQGGHMRO7100-81-47 01:46:0079[facility] JXYBHYZQZIZY9106-59-71 01:46:003.2[facility] HrvgcstHVGPGEFILJLC3807-93-47 01:46:0015[facility] LopbajoNAROLZKCBCLQ1005-85-05 01:46:000.2[facility] WQOSKWEBQGAP3652-58-77 01:46:0024[facility] GuveexyMBGRCSPMGZKZ9037-53-12 01:46:00 105[facility] VmlmyxfTBXAMCZEEPFM9453-97-76 01:46:0029[facility]annELECTROLYTES 2018-12-13 01:46:008.8[facility] WmiatjuIUOBRIBSGXHV1663-56-55 01:46:007.7[facility] YbrnqnhEVZSNFYUQHBR1560-67-24 01:46:00* Test Item Value Reference Range Interpretation Comments B/C Ratio (test code = B/C Ratio) 14 1 6-25 [facility] DitnfwwUNIRNDWBHAYQ1298-98-33 01:46:009.4[facility]annELECTROLYTES 2018-12-13 01:46:00* Test Item Value Reference Range Interpretation Comments A/G Ratio (test code = A/G Ratio) 0.7 1 0.7-1.6 [facility] OchfkjlKVKIDKWCGTBC7328-47-94 01:46:004.5[facility]annHEMATOLOGY 2018-12-13 01:46:000.1[facility] NxepcabCQXEWCGXGK3056-86-65 01:46:002.6[facility] ZipvjlrKRKLAIZUQK5887-14-60 01:46:000.8[facility] RubatjrRRHFZHBYCW4556-47-60 01:46:000.5[facility] DwmoezuBVVGAQAAGZ4220-03-76 01:46:004.0[facility] PDPKLMXTME1871-20-32 01:46:007.1[facility] VspwizvUHFCBCJRGY0850-94-93 01:46:00 22.7[facility] ZxfnmzmWBAYOGOVPL6800-94-85 01:46:001.2[facility]annHEMATOLOGY 2018-12-13 01:46:007.3[facility] VtudwlzRUOJLGFPDM1631-08-82 01:46:0065.0[facility] RtvqbagSABBQIQRMC8793-31-09 01:46:0013.3[facility] GnunabqFDQHGMYZZB6396-17-55 01:46:0033.7[facility] WsqhovzGSEICHRYLB9527-55-03 01:46:00294Ygviyyek Charles WXJZBGCASN7265-15-28 01:46:007.7[facility] OqjqmghQRVEMAVMGB2026-92-96 01:46:00 4.45[facility] GvyspfrLKVDBIGUQH7974-08-55 01:46:00* Test Item Value Reference Range Interpretation Comments MCH (test code = MCH) 28.9 pg 27.0-31.0 [facility] KdfnyhyDDFJNVQHJP4262-31-70 01:46:0085.7[facility]annHEMATOLOGY 2018-12-13 01:46:0011.3[facility] BxhxnekNXYGUIJAHU4538-93-93 01:46:0012.9[facility] JxtnhghJBVAFGYSIR9036-14-77 01:46:0038.1[facility] IcdgxamYTPTKRUSKD5024-91-96 01:04:00* Test Item Value Reference Range Interpretation Comments Vanco Tr TND (test code = Vanco Tr TND) 2100 1 [facility] NbstevwBQWOWVLCFF1664-60-46 01:04:0016.7[facility]annCHEM PANEL 2018-12-08 08:20:0093[facility]annCHEM KWBFU0656-15-08 08:20:57590Exuqfikl HermannCHEM DJSVZ6415-83-94 08:20:000.83[facility]annCHEM URIQA3699-62-94 08:20:006[facility]annCHEM ICFPK1969-70-10 08:20:0098[facility]annCHEM MBLLE7727-72-21 08:20:0029[facility]annCHEM EMIQW8873-62-50 08:20:80653 [facility]annCHE[facility] LITAQ3790-31-92 08:20:003.8[facility]annCHEM PANEL 2018-12-08 08:20:008.8[facility]annCHEM PAPGH6315-39-28 08:20:0011.8[facility] JpbsfqsWFAPABXHWN7167-73-83 08:20:008.5[facility] RmpmygaEIZNDLXGEK4562-68-56 08:20:0061.1[facility] OtgrbxxUQYGWALXEG8057-92-77 08:20:005.9[facility] AUOUNMGDIO7287-42-80 08:20:0023.5[facility] TvnqvgmJTOVPWLOWS2462-81-99 08:20:00 0.1[facility] CfkdjtyKFKRZWEQBF0767-52-53 08:20:000.6[facility]annHEMATOLOGY 2018-12-08 08:20:000.8[facility] TtdeoepNQPEGULDYF1417-76-61 08:20:002.3[facility] MdzncjsCLWARPUWSR9074-62-74 08:20:001.0[facility] CvbbxbqXPCGFSVEYB2340-19-97 08:20:006.0[facility] UhphnrhFNZPUGWUKQ5127-32-34 08:20:007.8[facility] FGUZUAMBDD8362-31-97 08:20:04689Vkjvisdt DiwjmukAAOFFBRHXA8133-81-88 08:20:00 13.1[facility] SbttdrsNOEXHUTGQG5104-03-11 08:20:0033.6[facility]annHEMATOLOGY 2018-12-08 08:20:0035.3[facility] OtxsihmFVGMUSOSHU2402-91-21 08:20:0086.2[facility] PunqpakIWVLMOYKSJ4403-28-18 08:20:009.7[facility] JxnwmpzJQXUPAVJQI3662-70-41 08:20:00* Test Item Value Reference Range Interpretation Comments MCH (test code = MCH) 28.9 pg 27.0-31.0 [facility] DnwdwjrAKLUYJCOGI3642-93-66 08:20:004.10[facility]annHEMATOLOGY 2018-12-08 08:20:0011.9[facility] DqsvvhhPDGBENFDVS6033-03-47 17:03:0015.3[facility] RkdtbffWJONXNQEHJKB8769-43-13 08:16:009.8[facility] QeizoujUPBXVNAFQZIJ3457-11-42 08:16:64157Zvvxbkyh AoxehnwPGVWPNAXNWYS7513-90-50 08:16:96225[place]u [facility] ZJOQRICOFQOF1420-42-24 08:16:003.8[facility] WjuozqjJZOIYSNNBJAM2676-04-74 08:16:008.1[facility] UrpyldbSTGIZCEXGBTG2651-69-15 08:16:0031[facility] MKATFVVZQJJA5968-88-37 08:16:18719Yjnifivh HhrjnaqVXLXGZIQPJZJ7613-88-03 08:16:000.69[facility] UdrjszpSYWGMUENAEYI5091-08-75 08:16:006[facility] RCROLRXPBSIZ5611-53-00 08:16:20408Egkbtmoj XnxcnepKDHBNKTTNU7673-67-36 08:16:00 87.1[facility] WonnhqyFSCKZUPDOL5751-59-13 08:16:0034.8[facility] HermannHEMATOLOGY 2018-12-07 08:16:00* Test Item Value Reference Range Interpretation Comments MCH (test code = MCH) 28.8 pg 27.0-31.0 [facility] HuqgqtjYPBIWIVBHZ8587-68-93 08:16:0011.5[facility]annHEMATOLOGY 2018-12-07 08:16:007.7[facility] XypitzaCYFTGCOTUW9492-92-55 08:16:0013.3[facility] ViejyphAIXSBMXKXT2662-66-03 08:16:0033.1[facility] IfsayfsBDPODQOGDJ3242-69-47 08:16:24760Dgoimazz XpghwwtORFOWHJGNA3944-54-55 08:16:004.00[facility] WTKXBDCTNC8750-17-00 08:16:009.8[facility] GaodbweJJSNDABSEY3183-00-99 08:16:000.8 [facility] EfxygofZNESCTKLXQ6013-59-33 08:16:000.6[facility]annHEMATOLOGY 2018-12-07 08:16:000.1[facility] AoliklqNNHCFHBSRU2888-21-17 08:16:0061.0[facility] WvavuztVCCAMEIISN3073-56-68 08:16:007.8[facility] FtnnrdkZFZUXSGFVB8452-77-21 08:16:001.1[facility] NcpufupUUXBTGRLCQ1019-10-93 08:16:006.5[facility] NBMKJPERZG2690-48-71 08:16:0023.6[facility] LmbcpswTHVZEERVTB1688-32-13 08:16:00 2.3[facility] CqxpxyaDCZJBYTTTF6602-97-51 08:16:006.0[facility] AMPICILLIN+SULBACTAM:SUSC:PT:ISOLATE:ORDQN:OFK8248-70-53 17:32:00Staphylococcus aureusMemorial BfzivijJNWEQBAXGT7846-31-79 14:55:00* Test Item Value Reference Range Interpretation Comments Morenita Storey TND (test code = Morenita Tr TND) 0930 1 [facility] AkijcdsZSXBLWHQDP7079-04-12 14:55:0014.8[facility] HermannCHEM PANEL 2018-12-06 07:45:47405Lgkbsllv HermannCHEM EDPYW9826-75-18 07:45:008[facility]annCHEM UEZMD7670-17-05 07:45:000.49[facility]annCHEM SDMRP5509-74-14 07:45:008.2[facility]annCHEM OAFWK4479-27-02 07:45:003.8[facility] HermannCHEM XHXUI0639-84-32 07:45:81877Uprrbdxn HermannCHEM TBKYL1403-46-19 07:45:29728 [facility]annCHEM HSFDR6202-34-02 07:45:0027[facility]annCHEM PANEL 2018-12-06 07:45:0099[facility]annCHEM KKHTD7933-17-44 07:45:009.8[facility] IdgwnfzGTBYIISFHM6602-43-32 07:45:000.1[facility] PvdqptrMPGXYAUSPJ4699-54-69 07:45:001.0[facility] MwtqrygFBBSLLOZJY6957-38-32 07:45:002.1[facility] TDEAPYTPBM2685-17-00 07:45:004.8[facility] GquakluKYBPVCUAPL3611-02-71 07:45:000.5 [facility] WinfqniUUTJLCLDZM6377-79-27 07:45:000.8[facility] HermannHEMATOLOGY 2018-12-06 07:45:009.8[facility] ArhdgrkDVTIZWXMMJ5651-12-91 07:45:0025.0[facility] TnsrwuvDVWQVPPIMH4734-99-13 07:45:006.3[facility] ZbkbbtiVXMGQNNORN2313-02-45 07:45:0057.9[facility] YfmbvmzFMYVUABKRE7648-64-79 07:45:00* Test Item Value Reference Range Interpretation Comments INR (test code = INR) 1.09 1 0.85-1.17 [facility] QbauupiXCFBQZLSQF2305-89-31 07:45:00* Test Item Value Reference Range Interpretation Comments PT (test code = PT) 13.9 s 12.0-14.7 [facility] FzikurcIWTAIAHBIL7838-73-51 07:45:008.3[facility] HermannHEMATOLOGY 2018-12-06 07:45:0013.2[facility] SghoojnFIIVJAMTZE7737-50-53 07:45:0033.0[facility] LpcrinnIACJCSPWUW1956-76-59 07:45:59251Glxdzwvk NjwszrwSVEZEVLYPM3026-19-94 07:45:003.96[facility] GhtanfrHJQNFQJTGK3908-17-28 07:45:008.4[facility] YLTVEYVZBJ3148-18-41 07:45:00* Test Item Value Reference Range Interpretation Comments MCH (test code = MCH) 28.6 pg 27.0-31.0 [facility] WxrytqdSPFAROQRGI0470-01-69 07:45:0086.6[facility]annHEMATOLOGY 2018-12-06 07:45:0011.3[facility] GbsnbaoNVZIXBFXRA6091-29-78 07:45:0034.3[facility] YkvffakJDAMOXJSQC2454-11-24 05:49:0015.3[facility] HermannCHEM QNMXJ7678-16-26 06:52:001.9[facility]annCHEM TMDRO2135-74-65 06:52:000.7[facility] HermannCHEM AAKCW9262-93-58 06:52:0072[facility]annCHEM ZQZOJ0205-90-59 06:52:006.9 [facility]annCHEM NPOJD7154-04-08 06:52:0013[facility]annCHEM PANEL 2018-12-04 06:52:0029[facility]annCHEM BZTWQ8434-92-55 06:52:002.8[facility]annCHEM KLNQY0955-58-69 06:52:004.1[facility]annCHEM XDYAP8280-06-36 06:52:00* Test Item Value Reference Range Interpretation Comments A/G Ratio (test code = A/G Ratio) 0.7 1 0.7-1.6 [facility] ZQWTK3661-25-42 06:52:00* Test Item Value Reference Range Interpretation Comments B/C Ratio (test code = B/C Ratio) 14 02-08 [facility]anoBxzjqmmNRBNRJRHZN5651-78-49 06:52:00* Test Item Value Reference Range Interpretation Comments PTT (test code = PTT) 44.5 s 22.9-35.8 [facility]anoVkojmfkHZOJJCDTSD4555-83-37 06:52:00* Test Item Value Reference Range Interpretation Comments PT (test code = PT) 16.0 s 12.0-14.7 [facility]anoBwqwtuzXMEWOFEMNN4011-90-70 06:52:00* Test Item Value Reference Range Interpretation Comments INR (test code = INR) 1.31 1 0.85-1.17 [facility] DUCYN2655-17-56 02:50:001.1[facility]annCHEM PANEL 2018-12-03 21:23:000.7[facility] UpfodqoOMIFWMDIRKYLX0927-67-34 21:23:00Negative *NA*(12/03/18 4:23 PM)[facility] HermannCHEM RIBNU4254-23-41 07:12:001.0[facility]annCHEM AVOQH3105-99-74 03:34:00* Test Item Value Reference Range Interpretation Comments B/C Ratio (test code = B/C Ratio) 19 02-08 [facility] HermannCHEM ZOZYV5838-76-74 03:34:009.8[facility] HermannCHEM PANEL 2018-10-11 03:34:004.5[facility]annCHEM TZHMV8458-42-13 03:34:00* Test Item Value Reference Range Interpretation Comments A/G Ratio (test code = A/G Ratio) 0.8 1 0.7-1.6 [facility] HermannCHEM UEODT2073-54-57 03:34:0093[facility]annCHEM PANEL 2018-10-11 03:34:0024[facility]annCHEM CNALL9668-83-11 03:34:0017[facility]annCHEM TVYSU3617-60-85 03:34:0081[facility]annCHEM KZKWS3482-05-72 03:34:000.3[facility]annCHEM LJZXK3175-65-60 03:34:000.83[facility]annCHEM WKUDZ5160-34-99 03:34:0084[facility]annCHEM YISET6448-62-04 03:34:0016 [facility]annCHEM USAUT9701-12-22 03:34:003.8[facility] HermannCHEM PANEL 2018-10-11 03:34:52068Pdkpexza HermannCHEM YZWGQ7080-28-71 03:34:0026[facility]annCHEM QFZCB9525-62-28 03:34:008.5[facility]annCHEM HNXKP0062-67-97 03:34:39857Ulckckoe HermannCHEM AQCCN5928-68-61 03:34:008.0[facility] HermannCHEM LCDTT1932-65-68 03:34:003.5[facility] MjqbhvhVMCHJRAUNU4434-99-79 03:34:000.8 [facility] WmunoiyICMXOJUOVD7491-73-07 03:34:000.1[facility] HermannHEMATOLOGY 2018-10-11 03:34:000.3[facility] RfieiabCBNGDJHURT1222-09-26 03:34:007.7[facility] LypjhdlRZSAZPFBGD7158-06-09 03:34:003.0[facility] YydlznvEDJYNHDPUF1112-56-13 03:34:000.6[facility] NqoqnihVRQLTIJQKG8287-16-92 03:34:006.8[facility] ACCDEHPPQN2413-34-75 03:34:002.4[facility] AlqvqikVXQBBQSXGP6356-33-11 03:34:00 22.9[facility] OssovxwTIEUDGPMHX0285-89-12 03:34:0065.8[facility] HermannHEMATOLOGY 2018-10-11 03:34:0013.3[facility] OlejfglROMGILFSEE5792-56-06 03:34:0032.5[facility] UuqwymbCUTXCWHUZB6377-09-15 03:34:00* Test Item Value Reference Range Interpretation Comments MCH (test code = MCH) 28.8 pg 27.0-31.0 [facility] IwxpngrXXODKFGYOI2649-87-21 03:34:0042.6[facility]annHEMATOLOGY 2018-10-11 03:34:0013.8[facility] RxdmpwhMKNZOEWQYB0031-32-76 03:34:0010.3[facility] JevwomsZWJBBCFRAN0577-59-82 03:34:0088.5[facility] OxxkwboOSWIQACOVX5571-30-19 03:34:004.81[facility] JcixeaoCANPHJFZNT1066-77-63 03:34:94500Dqgnoqwt [place] YJWXFNULFR2545-03-23 03:34:008.7[facility] HEAD/BRAIN W/O CONT 2018-09-23 11:52:00 Name: COLLEEN JOHNSON [facility] : 1985 Age/S: 32 / F [address] [facility] Unit #: [id number] [place]: [place] [address] Phys: Sergio Ellis MD Acct: [id number] Dis Date: Status: REG ER PHONE #: [phone] Exam Date: 09/23/2018 1144 FAX #: [phone] Reason: numbness right side of face EXAMS: CPT CODE: [id number] CT HEAD/BRAIN W/O CONT 07261 HISTORY: Numbness to the right side. COMPARISON: [...] Technologist:Aleida Billings,RT(R),CT CTDI: DLP: Trnscb Date/Time: 09/23/2018 (0612) t.AZEBR.[email or web address] Orig Print D/T: S: 09/23/2018 (7014) CTDI: DLP: PAGE 1 Signed Report CHEM XILQJ2159-66-94 06:46:001.5[facility] HermannCHEM OCQYO1917-08-21 06:46:000.5[facility]annCHEM NSTGZ0116-30-88 06:46:0015 [facility]annCHEM DNGJD9623-23-19 06:46:0074[facility]annCHEM PANEL 2018-09-06 06:46:0072[facility]annCHEM UBHWT8340-79-42 06:46:001.03[facility]annCHEM LPPWO5540-84-08 06:46:79083Xkdtmxxs HermannCHEM HRESP5817-93-41 06:46:003.6[facility]annCHEM AXQAB2608-23-92 06:46:007.4[facility]annCHEM HZJZZ3009-45-49 06:46:003.3[facility]annCHEM VCIEM2539-27-52 06:46:0027 [facility]annCHEM GYBAF3520-29-54 06:46:62101Bxtrsysj HermannCHEM PANEL 2018-09-06 06:46:0011[facility]annCHEM YQJFD7921-53-44 06:46:008.3[facility] HermannCHEM SJIPI7172-51-08 06:46:65127Rbyiooft HermannCHEM GANTP1225-30-18 06:46:0024[facility] HermannCHEM CKVKG2992-33-92 06:46:00* Test Item Value Reference Range Interpretation Comments A/G Ratio (test code = A/G Ratio) 0.8 1 0.7-1.6 [facility]annCHEM MVFVB9041-58-39 06:46:0010.6[facility] HermannCHEM PANEL 2018-09-06 06:46:00* Test Item Value Reference Range Interpretation Comments B/C Ratio (test code = B/C Ratio) 11 1 6-25 [facility]annCHEM MLYUR4423-82-74 06:46:004.1[facility] HermannCHEM PANEL 2018-09-06 06:46:82441Howozhiz VnoxrpzWGOZJBMWMUFKF9840-28-49 06:46:00Negative *NA*(09/06/18 12:46 AM)[facility] WjltjolLJKHHLYHHS4520-41-44 06:46:09609Ztlgweuo XtxkueaMJHUXHSFCN0703-68-60 06:46:008.3[facility] UlzkukmMLFJSOVTTP9337-92-39 06:46:0033.1[facility] VttcfngEFQHIPYODF0888-00-08 06:46:0013.7[facility] QMLNJBPMGR2494-01-70 06:46:00* Test Item Value Reference Range Interpretation Comments MCH (test code = MCH) 28.5 pg 27.0-31.0 [facility] PiiycdqTSYCRILRLZ5791-43-51 06:46:004.70[facility] HermannHEMATOLOGY 2018-09-06 06:46:0013.4[facility] HpedlgzVOZGLZZJNS2403-40-28 06:46:0012.6[facility] GnchkcsCBJIUXDLUL9971-11-00 06:46:0040.5[facility] QeyrnecGZAFDWSGWP2414-31-21 06:46:0086.2[facility] DjmilvtSQLMQQEIML5700-45-27 06:46:000.1[facility] ULSKRVSHSK8302-88-77 06:46:000.4[facility] EegrkvcUVBYEBRYST8103-84-48 06:46:000.8 [facility] FnfytlvGPNCJKGIRZ8579-93-30 06:46:008.4[facility] HermannHEMATOLOGY 2018-09-06 06:46:002.9[facility] ZfyhutxRFJLZANSXY2724-14-03 06:46:003.6[facility] IdkqgezVBABVULEHD2232-99-06 06:46:000.7[facility] TxherhpLASNNYSQUE1936-31-37 06:46:0022.9[facility] IlfszsjUMWPOZJKXI3130-60-98 06:46:006.3[facility] QPVJRCTNIB6791-99-97 06:46:0066.5[facility]annURINE AND YTMWR3456-54-86 06:46:00Negative (09/06/18 12:46 AM)[facility]annUR[facility] AND YHWNK3841-10-17 06:46:87608Pdcautpc HermannURINE AND VTRDK9261-43-84 06:46:003[facility] URINE AND KHHUN5065-72-42 06:46:00Negative *NA*(09/06/18 12:46 AM)[facility]annUR[facility] AND URWYK5212-12-50 06:46:00Slight *ABN*(09/06/18 12:46 AM)[facility]annUR[facility] AND NNAZN4101-81-37 06:46:00Yellow *NA*(09/06/18 12:46 AM)[facility]annUR[facility] AND TJLRN0507-99-76 06:46:00* Test Item Value Reference Range Interpretation Comments UA Spec Grav (test code = UA Spec Grav) 1.023 1 [facility]UR[facility] AND TIWOF5915-63-58 06:46:00Negative (09/06/18 12:46 AM) [facility] DRYZN1941-16-91 06:46:00* Test Item Value Reference Range Interpretation Comments UA pH (test code = UA pH) 5.0 1 5.0-8.0 [facility] OXPTL0636-17-56 06:46:00Negative (09/06/18 12:46 AM) [facility] HATUF7508-25-57 06:46:00Negative *NA*(09/06/18 12:46 AM)[facility] AND UZGUY8214-53-55 06:46:00Negative *NA*(09/06/18 12:46 AM)[facility] AND IPQCS7612-29-67 06:46:00Large *ABN*(09/06/18 12:46 AM)[facility]annCHEM CRBIV7909-44-65 10:22:001.9[facility] HermannELECTROLYTES 2018-08-28 10:22:0011.1[facility] XdtqcymNHZQQWCRWLLO7619-43-40 10:22:84812 [facility] IfdmdxpSBLGWKZBTVYS9450-85-78 10:22:008.4[facility] HermannELECTROLYTES 2018-08-28 10:22:0013[facility] VptydyaUZZNKVLXFYWS4342-98-73 10:22:47305Yvczyosw KykffdwNAUAONGWKVKD4186-56-04 10:22:000.69[facility] TcjwtivLPLOLWZXSMVA0523-79-86 10:22:004.1[facility] MbdsqyePPSOOSMCVFKN4473-44-39 10:22:0025[facility] VVAZNAJBZZCD6758-51-66 10:22:32134Hphilvwr CwqwyqtTVZBXFJLKJGT5582-27-54 10:22:35177Xmemjdqo HuuopulVNQHBFXAVF9469-79-44 10:22:00* Test Item Value Reference Range Interpretation Comments INR (test code = INR) 1.01 1 0.85-1.17 [facility] ThunfnnMEUEFMISQV2656-28-29 10:22:00* Test Item Value Reference Range Interpretation Comments PTT (test code = PTT) 33.7 s 22.9-35.8 [facility] RezvcaaZOADRGYXIH5637-43-52 10:22:00* Test Item Value Reference Range Interpretation Comments PT (test code = PT) 13.1 s 12.0-14.7 [facility] LbismhlTMTWQBTMOD6376-74-00 10:22:0026.9[facility]annHEMATOLOGY 2018-08-28 10:22:002.1[facility] GdvenhmUJOYFCSEWG2686-95-73 10:22:006.7[facility] AclfkndMLEHDDSWLW7236-55-14 10:22:009.3[facility] IjgstbvUVGHCFAQYA3308-87-18 10:22:0056.2[facility] OmjyeabMZRYYNGTWY8296-15-08 10:22:000.7[facility] FYQJIVVCSC4938-68-61 10:22:000.5[facility] IelvqruPQIPQJGIAQ6268-63-54 10:22:004.3 [facility] TwuawwdWARMIPOIGY2172-04-72 10:22:000.9[facility]annHEMATOLOGY 2018-08-28 10:22:000.1[facility] AqvmyrwQKEAOBMYYJ2418-18-72 10:22:008.1[facility] RjlmhnjEFKUNOWAYN2735-51-71 10:22:0013.4[facility] TrznlcaKAKZKEAHXJ6209-42-97 10:22:09238Wooivyrm OjtazdrZVEIUREYCR0376-83-47 10:22:0033.2[facility] ZFTPDLSTEE4314-99-72 10:22:0087.4[facility] GjbhfegPKLDPEJJVU3645-86-42 10:22:00* Test Item Value Reference Range Interpretation Comments MCH (test code = MCH) 29.0 pg 27.0-31.0 [facility] VdlgbxfTMXZZECFWB0866-98-53 10:22:0041.5[facility] HermannHEMATOLOGY 2018-08-28 10:22:007.7[facility] PjzbsioPXRGJHGWBO7577-88-94 10:22:004.74[facility] IfjkwxfFLJVXITCNP3027-04-16 10:22:0013.8[facility] XfovgkyQRDFBFWUCZ9620-05-59 05:09:00* Test Item Value Reference Range Interpretation Comments PT (test code = PT) 12.9 s 12.0-14.7 [facility] OolkjekFPIGIVDAKI3914-79-85 05:09:00* Test Item Value Reference Range Interpretation Comments INR (test code = INR) 0.99 1 0.85-1.17 [facility]annCHEM HAFHP9061-65-73 10:55:002.1[facility] HermannELECTROLYTES 2018-08-27 10:55:92596Rnmnxdxz NmkectcDTOLJXTRTTFF5245-45-34 10:55:004.1[facility] XcsihzySVHHIQTQNAWL9756-12-45 10:55:11689Ewgiaoql GjfeokeUPQWBSIBRNCB1041-97-39 10:55:0012[facility] BwiowrkPYVYGYWUNCBF9836-66-47 10:55:0090[facility] RZINIHBTHHGH4938-77-07 10:55:000.62[facility] DdxhgcpPHKIFTPAWUFB5287-08-49 10:55:008.4[facility] UdmhybgFCQVYSZRLUOZ5434-59-51 10:55:0028[facility] HBRJFGVXDRBE6823-43-68 10:55:18390Weqdbciz AoznvgiWNGRQUDLPLTV5290-56-95 10:55:0012.1[facility] QisxlkjPQDQZZPMWM6021-38-97 10:55:007.7[facility] MBKSXPBYVI5595-09-44 10:55:0013.2[facility] AaqsqmxOCTKUKWHWB0724-29-95 10:55:00 4.56[facility] BiznigvYNAAPIBEZM5493-24-03 10:55:0039.0[facility] HermannHEMATOLOGY 2018-08-27 10:55:0013.4[facility] GgbeldqGFFDBYDFCE3758-98-92 10:55:0033.9[facility] MrrylcbXFWKJCAPOV7139-58-47 10:55:00* Test Item Value Reference Range Interpretation Comments MCH (test code = MCH) 28.9 pg 27.0-31.0 [facility] EzjmkfnUMOEIOBRNT5999-68-05 10:55:81886Smgcinxh HermannHEMATOLOGY 2018-08-27 10:55:0085.4[facility] XwgbnruRGHAQJQCAK8240-08-79 10:55:008.4[facility] NtkpnpoLFDZKNRECF9007-66-56 10:55:000.9[facility] EuujwomTOCWRAVSEE2951-15-50 10:55:000.5[facility] SwxlocvIOLVQFXBHI5113-69-93 10:55:000.1[facility] MROMCBXLCY7269-89-57 10:55:0011.1[facility] XcxjsfgCNVZWBCVQI3285-82-96 10:55:00 24.6[facility] FqouuvsZBDUOTVJNE0026-09-48 10:55:0056.9[facility] HermannHEMATOLOGY 2018-08-27 10:55:001.1[facility] KqqhwyxLZONWUGCQM9011-75-06 10:55:006.3[facility] WrjcppmRYRYOSSMSH0246-25-07 10:55:004.4[facility] DfhfcnaGANTBXEKMK2149-08-80 10:55:001.9[facility] NtjqfmuVDFCVQYAYT4002-50-79 05:18:00* Test Item Value Reference Range Interpretation Comments Morenita Storey TND (test code = Chandanao Tr TND) 0000 1 [facility] EuuwwgaHYGORDNUJI5304-29-91 05:18:0013.1[facility] HermannCHEM PANEL 2018-08-26 10:28:001.9[facility] HermannCHEM RDWDI3280-35-33 10:28:08612Oiwmknfl HermannCHEM CAWJS1228-38-80 10:28:15090Fbhobnvz HermannCHEM GGXXV4632-41-86 10:28:0027[facility] HermannCHEM HLXQV6769-60-98 10:28:0012[facility] HermannCHEM YNTWG1507-85-32 10:28:008.0[facility] HermannCHEM SUBTM3944-56-03 10:28:004.0 [facility]annCHEM PCGJR4298-90-42 10:28:38924Gggldfjf HermannCHEM PANEL 2018-08-26 10:28:000.56[facility] HermannCHEM PWBAD9735-26-14 10:28:0089[facility] HermannCHEM UONJS4385-00-06 10:28:0011.0[facility] HxepuseYUUOCBTMLD0121-48-40 10:28:000.8[facility] PcfmrfdKXDRDXZAUV6269-30-03 10:28:000.5[facility] NEGXJCWMXF3370-74-82 10:28:000.1[facility] TpnuibbRYOOJWBDUB1517-79-97 10:28:005.7 [facility] TyayydtBIISOZLIYS1633-42-27 10:28:0023.6[facility] HermannHEMATOLOGY 2018-08-26 10:28:009.6[facility] FlejoctZQQGTISUDJ6588-35-33 10:28:001.0[facility] FaqidxbMZLILLXWLD6159-24-91 10:28:005.2[facility] UhgymdeZZMYOKYCHZ2838-52-47 10:28:002.1[facility] AddkxnhNAIGEDMUGI4266-95-61 10:28:0060.1[facility] LKNHRYRHLD0568-29-94 10:28:0013.3[facility] TzrbzkjGUXRFFWJZA5351-64-83 10:28:00 228[facility] GppyapjAFUZTYNCPT2861-62-47 10:28:0038.0[facility] HermannHEMATOLOGY 2018-08-26 10:28:004.40[facility] MtzwxznNBHNJKBEFS3255-81-39 10:28:008.7[facility] MoyxvmyYUEGGGOSRQ1406-64-77 10:28:0012.9[facility] AdrktrmZPSHULREVK7134-29-64 10:28:00* Test Item Value Reference Range Interpretation Comments MCH (test code = MCH) 29.2 pg 27.0-31.0 [facility] SugjrzzBGNDVLELIR8299-21-05 10:28:0086.2[facility]annHEMATOLOGY 2018-08-26 10:28:0033.9[facility] HwqboueXLYAMPLPNJ8809-21-01 10:28:008.2[facility] MjbjpzsSVZGXZISEJ5461-47-08 19:34:00* Test Item Value Reference Range Interpretation Comments Vanco Tr TND (test code = Vanco Tr TND) 1330 1 [facility] FoxwvxyUXHWSPJJDD7453-56-93 19:34:0015.8[facility]annCHEM PANEL 2018-08-25 10:41:003.7[facility]annCHEM IYUOX6690-32-26 10:41:00* Test Item Value Reference Range Interpretation Comments B/C Ratio (test code = B/C Ratio) 24 1 6-25 [facility]annCHEM ACTXJ6118-91-44 10:41:00* Test Item Value Reference Range Interpretation Comments A/G Ratio (test code = A/G Ratio) 0.8 1 0.7-1.6 [facility]annCHEM MKRAS8386-34-89 10:41:003.6[facility]annCHEM PANEL 2018-08-25 10:41:000.3[facility]annCHEM SPCSR7560-14-92 10:41:0077[facility]annCHEM CTQMX3650-60-97 10:41:0019[facility]annCHEM TYUSM0678-23-09 10:41:0023[facility]annCHEM XMFFT7591-12-75 10:41:002.8[facility]annCHEM ADHPM8554-25-49 10:41:006.4[facility]annCHEM OXXAV0936-34-69 23:22:00<0.05 [facility]annCHEM OFSVH3500-60-42 23:22:001.1[facility] HermannIMMUNOLOGY 2018-08-24 23:22:00Negative *NA*(08/24/18 5:22 PM)[facility]annCHEM PANEL 2018-08-24 17:20:002.2[facility]annCHEM TUMBA3910-21-83 10:15:007.8[facility]annCHEM WFUMX4370-31-45 10:15:003.8[facility]annCHEM WLOHR0771-25-40 10:15:0099[facility]annCHEM YQYKT1616-12-52 10:15:000.3[facility]annCHEM XURMP5497-68-72 10:15:0018[facility]annCHEM SUDTZ0936-27-86 10:15:0021 [facility]CHE[facility] ZDPYY2119-77-48 10:15:004.0[facility]annCHEM PANEL 2018-08-24 10:15:00* Test Item Value Reference Range Interpretation Comments A/G Ratio (test code = A/G Ratio) 1.0 1 0.7-1.6 [facility]annCHE[facility] SJITR4352-84-48 10:15:00* Test Item Value Reference Range Interpretation Comments B/C Ratio (test code = B/C Ratio) 17 1 6-25 [facility] RylxegnJMOYZFTCMQERM6974-76-19 10:15:00Negative *NA*(08/24/18 4:15 AM) [facility] NygufgwOWPCPALOEJ3474-02-98 10:15:00Normal (08/24/18 4:15 AM)[facility] TubaksaPGGRSXNSRG2887-28-72 10:15:00Normal (08/24/18 4:15 AM)[facility] [place] SPECIAL YRFMNVCTW2649-78-38 10:15:005.3[facility] EkaridtWNJEWNYKZCCK6112-21-99 08:00:0012.2[facility] NeffytuYWHCKPXHJYEN2081-61-72 08:00:71485Ycbxpkpl [place] LGZBMPEQIYWQ2168-61-17 08:00:0089[facility] JasoqjwQWHUANSXMBUL2141-07-56 08:00:00 4.2[facility] IajxkvdUKIGXKKBEGEH5129-64-89 08:00:99048Drfhczco [place] QMFGBYGMOPWH9220-36-72 08:00:000.72[facility] AzxhsdaZZZQTPAORKRB3448-34-56 08:00:11166Jciiozdo SkahuaaLYFQQMLYWCEV9716-50-36 08:00:009[facility] [place] CCGOWAMHTMOI9779-43-79 08:00:0029[facility] YioslctJAHQJIWUHDDV4677-19-42 08:00:00 8.2[facility] TsedofqYEXTYIFJHP5191-39-79 08:00:000.3[facility] HermannHEMATOLOGY 2018-05-21 08:00:000.8[facility] FzmmqgcETWQLMCZJU1472-66-75 08:00:000.1[facility] KzwipyyCTZHITMIQO8550-96-10 08:00:0032.9[facility] ZhxqqijYNEXHLPIFF5719-84-89 08:00:0050.8[facility] TekfkaoPNAGQVBYHA5874-10-37 08:00:002.3[facility] ZUDOOEEGBU4583-11-23 08:00:003.6[facility] AnefccbOADWEDMVEQ3726-06-18 08:00:000.8 [facility] JdudyqzVKOKULZYAY3182-01-59 08:00:004.8[facility] HermannHEMATOLOGY 2018-05-21 08:00:0010.7[facility] BjapkwnNNZBBZOFXK7049-61-60 08:00:0035.3[facility] MpsouiaJDTUYHFMIT7211-90-52 08:00:41978Cihnfxmp DrdfajmUISGZSCXCK6389-00-89 08:00:0012.9[facility] MontdgeLAINQXJBQR8924-42-90 08:00:0085.6[facility] [place] GZVCPSNWJW0297-84-97 08:00:0034.4[facility] VtgfovmEOZBXEJRGB6594-46-23 08:00:00* Test Item Value Reference Range Interpretation Comments MCH (test code = MCH) 29.4 pg 27.0-31.0 [facility] UtkrvydHEWCREZUHH9608-71-75 08:00:008.4[facility] HermannHEMATOLOGY 2018-05-21 08:00:004.12[facility] MzrdohnZCVHQTWVWL1617-79-76 08:00:007.1[facility] VgmpgnbVQACGGRTQU5897-97-36 08:00:0012.1[facility] AosrfrhHLHJMIFCZJ6671-06-87 07:31:0015.7[facility] KojurfvDGNPJDLUSS0249-86-41 07:31:00* Test Item Value Reference Range Interpretation Comments Chandanaisaiah [place] WADE (test code = Chandanaisaiah [place] SANCHEZD) 0300 1 [facility] KsvoplnYGSGGGQRIZZX6327-27-78 08:22:0010.9[facility] HermannELECTROLYTES 2018-05-20 08:22:47651Ykxnabxe SocqgzgBUWQFVRZZQYU3738-30-46 08:22:0026[facility] HqerohhTZRPNQGKTNBE5057-26-25 08:22:98700Bajmmntx EkzjqsvXGPMQTJGNWZX6650-89-90 08:22:57530Lolrvopv JozephhTYMMAOUHTPYP2028-42-26 08:22:003.9[facility] [place] GNWHAUUIFAZW1876-59-30 08:22:008.0[facility] FpzqjtmYWVGHYONUYHA0935-27-97 08:22:000.59[facility] CiqladqIWDHEZFUECHI4394-02-49 08:22:0094[facility] PVUWLMEPSXPG8683-72-86 08:22:009[facility] PqpquivNJBQIMBJPE8937-16-59 08:22:00 55.0[facility] LhhprvcHRSJVTKZRN3658-94-98 08:22:0031.9[facility] HermannHEMATOLOGY 2018-05-20 08:22:002.3[facility] JrzpnzkZMVMCJDAFQ7046-80-72 08:22:009.9[facility] JhtqkxcMEYZAYKWQU0386-91-81 08:22:000.7[facility] FdgpmknHJKZRFYHJE3296-81-29 08:22:002.4[facility] IwjyrklEBYSWNQMKV8911-32-91 08:22:000.1[facility] [place] RXTTRQOEPF 0.2[facility] OdnkvzfYSMLISYRKN9269-95-57 08:22:004.1 [facility] NxhbpiuCXCNBWOBBH4279-29-33 08:22:000.9[facility] HermannHEMATOLOGY 2018-05-20 08:22:00* Test Item Value Reference Range Interpretation Comments MCH (test code = MCH) 29.8 pg 27.0-31.0 [facility] BfhpkrjNOUPKWVYOC2309-12-67 08:22:0086.8[facility] HermannHEMATOLOGY 2018-05-20 08:22:003.85[facility] WppzlulEBBCVRCWLW1921-25-70 08:22:007.4[facility] VwnhmrfIPUDYPCQGZ2663-78-68 08:22:0033.4[facility] XouixpyEKTKQJMFVP7000-16-10 08:22:0011.5[facility] QtyttlkHSDQXHZOEK9417-62-38 08:22:0012.9[facility] VXKDZURVSM3451-76-25 08:22:0034.3[facility] LfetuelAYQRZFCBGI3881-65-18 08:22:00 8.7[facility] PygfpcwHXYAUQDGRB2842-33-87 08:22:57402Uqbdoscd HermannELECTROLYTES 2018-05-19 06:30:0014.4[facility] KirbnusNMUUWCVQIFAZ5365-48-00 06:30:35945 [facility] EdklunqFDHECVUVYKJO2385-95-07 06:30:008.2[facility] HermannELECTROLYTES 2018-05-19 06:30:004.4[facility] OliuxpuSNBDOUPZLQWJ8854-18-79 06:30:11743Daywmqoj ZsojontAZNXYKWLWIMH4296-59-48 06:30:0025[facility] NslijsgMCOUYTRMYZEL3824-17-33 06:30:99503Lmyebhml ByabfikJECAKSSUMROS5847-30-22 06:30:007[facility] MAOEJSBTIQSR1371-94-48 06:30:47572Gonymcgv OiwqadmXGAKHZBQNSHU0898-79-95 06:30:000.73[facility] AisnkcaPPCXBAFDOV9009-88-03 06:30:000.3[facility] [place] OMWUXWDVPH9847-41-11 06:30:000.1[facility] XnprntbELHOPHBVLO6552-10-18 06:30:00 83.5[facility] OtqfqneAKXWXZSMJE0413-77-44 06:30:009.1[facility] HermannHEMATOLOGY 2018-05-19 06:30:007.0[facility] WotxecxYNPGJMXUHA4470-27-61 06:30:008.9[facility] XzwpzzeTFSUZLCESZ8691-55-68 06:30:000.7[facility] EfyhpdbPAZPZBAGTF2913-95-29 06:30:001.0[facility] GdngzeiXZBMLFIHOY3539-15-59 06:30:008.4[facility] [place] MWMGKKCURX6995-32-67 06:30:66788Lsoozzrt TxahamwFNPFLJJREB3386-16-68 06:30:00 12.8[facility] IbsfpjpBKLECUQIHV2973-14-35 06:30:0033.2[facility] HermannHEMATOLOGY 2018-05-19 06:30:0010.6[facility] GknqulgCMGKMKASGN5164-56-47 06:30:0088.3[facility] HcmfifoHBEKEQZKSJ9605-04-30 06:30:0038.9[facility] YsjlyzjPYEOMRXSDH7512-57-08 06:30:004.41[facility] HmiafcaODHKDHVUHD6003-79-56 06:30:00* Test Item Value Reference Range Interpretation Comments MCH (test code = MCH) 29.3 pg 27.0-31.0 [facility] NbovfvvQRGCRWXKOQ3794-63-35 06:30:0012.9[facility] HermannTOXICOLOGY 2018-05-19 06:30:00* Test Item Value Reference Range Interpretation Comments Morenita Storey TND (test code = Vanco Tr TND) 0200 1 [facility] BasltliCRIRSKLDRL3748-28-18 06:30:006.6[facility] HermannTOXICOLOGY 2018-05-18 20:36:0027.1[facility] [place] AMPICILLIN+SULBACTAM:SUSC:PT:ISOLATE:ORDQN:FSM2275-11-16 18:30:00Staphylococcus aureusMemorial HermannCHEM MUYZD3131-76-88 08:51:001.9[facility] HermannCHEM PANEL 2018-05-17 08:51:00* Test Item Value Reference Range Interpretation Comments B/C Ratio (test code = B/C Ratio) 16 1 6-25 [facility] HermannCHEM QSDYE2339-44-25 08:51:007.0[facility] HermannCHEM PANEL 2018-05-17 08:51:004.0[facility] HermannCHEM YKFNV0896-42-08 08:51:003.0[facility] HermannCHEM SFKJE7559-98-59 08:51:0011[facility] HermannCHEM OELRN7384-31-97 08:51:000.4[facility] HermannCHEM LYKVE7644-91-79 08:51:0066[facility] HermannCHEM RWTVT9110-52-95 08:51:0019[facility] HermannCHEM YQKKF5966-65-27 08:51:00* Test Item Value Reference Range Interpretation Comments A/G Ratio (test code = A/G Ratio) 0.8 1 0.7-1.6 [facility]DkkerrzHHBNXKAMRA5337-91-05 08:51:00* Test Item Value Reference Range Interpretation Comments INR (test code = INR) 1.14 1 0.85-1.17 [facility]anoEmsrwkdJXDXLWOVTV4180-23-84 08:51:00* Test Item Value Reference Range Interpretation Comments PT (test code = PT) 14.6 s 12.0-14.7 [facility]anoNwxcttvLBDUSKVHVQ0271-30-13 08:51:00* Test Item Value Reference Range Interpretation Comments PTT (test code = PTT) 36.4 s 22.9-35.8 [facility]anoJzrhtzjEFGFLEMJCV3101-72-34 08:51:000.1[facility]annHEMATOLOGY 2018-05-17 08:51:000.3[facility] HermannCHEM GSAKS1320-76-87 06:46:001.3[facility] HermannCHEM KAPZT9238-02-17 05:24:004.1[facility] HermannCHEM LKPPC6511-44-70 05:24:00* Test Item Value Reference Range Interpretation Comments A/G Ratio (test code = A/G Ratio) 0.8 1 0.7-1.6 [facility]anoannCHEM UWSOV7802-71-74 05:24:00* Test Item Value Reference Range Interpretation Comments B/C Ratio (test code = B/C Ratio) 13 1 02-08 [facility]annCHEM BOXPH2719-63-38 05:24:0021[facility] HermannCHEM PANEL 2018-05-17 05:24:0014[facility] HermannCHEM SWUBC0364-51-31 05:24:0071[facility] HermannCHEM YTOAT5668-68-17 05:24:000.2[facility] HermannCHEM QVBVD9090-89-58 05:24:003.2[facility] HermannCHEM IJOOY2603-65-56 05:24:007.3[facility] [place] DABKUKVYZDYAW3049-02-43 05:24:00Negative *NA*(05/17/18 12:24 AM)[facility] ABDOMEN/PELVIS U2584-15-11 19:32:00 [place] [address] Patient Name: COLLEEN JOHNSON MR #: [id number] : 1985 Age/Sex: 32/F Req #: [id number] Adm Physician: Ordered by: FELICIA DELGADO MD Report #: [id number] Location: ER Room/Bed: Procedure: [id number] CT/CT ABDOMEN/PELVIS W Exam Date: 02/07/18 Exam Time: [address] ATUS: Signed EXAM: CT ABDOMEN/PELVIS [...] 02/07/181934 COPY TO: FELICIA DELGADO MD Urine Gxsvchv0541-09-56 15:50:00* Test Item Value Reference Range Interpretation Comments Urine Clarity (test code = 36113-1) CLOUDY CLEAR H [facility] RDT2362-78-84 15:50:00* Test Item Value Reference Range Interpretation Comments Urine WBC (test code = 5821-4) NONE 0-5 [facility] WSL3835-66-21 15:50:00* Test Item Value Reference Range Interpretation Comments Urine RBC (test code = 92558-0) 0-5 0-5 [facility] HospitalU[facility] Qtqcpbxi2109-38-27 15:50:00* Test Item Value Reference Range Interpretation Comments Urine Bacteria (test code = 06003-5) RARE NONE [facility] HospitalU[facility] Epithelial Izqur9986-53-49 15:50:00 * Test Item Value Reference Range Interpretation Comments Urine Epithelial Cells (test code = 61681-3) RARE NONE [facility] HospitalU[facility] Amorphous Uvgsbmvu3713-21-55 15:50:00* Test Item Value Reference Range Interpretation Comments Urine Amorphous Sediment (test code = 8246-1) MANY FEW H [facility] HospitalUrine Bqfoxjz1345-03-81 15:50:00* Test Item Value Reference Range Interpretation Comments Urine Clarity (test code = 20271-7) CLOUDY CLEAR H [facility] HospitalU[facility] KXN3473-78-94 15:50:00* Test Item Value Reference Range Interpretation Comments Urine WBC (test code = 5821-4) NONE 0-5 [facility] HospitalU[facility] FXZ5788-50-43 15:50:00* Test Item Value Reference Range Interpretation Comments Urine RBC (test code = 54200-5) 0-5 0-5 [facility] Jolsftpg0586-14-91 15:50:00* Test Item Value Reference Range Interpretation Comments Urine Bacteria (test code = 42201-5) RARE NONE [facility] HospitalU[facility] Epithelial Vynsp4201-40-25 15:50:00 * Test Item Value Reference Range Interpretation Comments Urine Epithelial Cells (test code = 75699-7) RARE NONE [facility] HospitalUrine Amorphous Zgyqvhru8078-33-93 15:50:00* Test Item Value Reference Range Interpretation Comments Urine Amorphous Sediment (test code = 8246-1) MANY FEW H [facility] Garzo0677-80-70 15:44:00* Test Item Value Reference Range Interpretation Comments Sodium Level (test code = 2951-2) 139 136-145 [facility] HospitalPotassium Koihp1126-52-11 15:44:00* Test Item Value Reference Range Interpretation Comments Potassium Level (test code = 2823-3) 3.6 3.5-5.1 [facility] HospitalChloride Nirti8345-53-34 15:44:00* Test Item Value Reference Range Interpretation Comments Chloride Level (test code = 2075-0) 107 98-107 [facility] HospitalCarbon Dioxide Cchrf8407-03-47 15:44:00* Test Item Value Reference Range Interpretation Comments Carbon Dioxide Level (test code = 2028-9) 24 22-29 [facility] HospitalAnion Hvn9563-04-15 15:44:00* Test Item Value Reference Range Interpretation Comments Anion Gap (test code = 15163-4) 11.6 8-16 [facility] HospitalBlood Urea Gajdofir7062-24-90 15:44:00* Test Item Value Reference Range Interpretation Comments Blood Urea Nitrogen (test code = 3094-0) 15 7-26 [facility] HospitalCreatinine2018-06-24 15:44:00* Test Item Value Reference Range Interpretation Comments Creatinine (test code = 2160-0) 0.78 0.57-1.11 [facility] HospitalBUN/Creatinine Abcge6528-37-86 15:44:00* Test Item Value Reference Range Interpretation Comments BUN/Creatinine Ratio (test code = 3097-3) 19 6-25 [facility] HospitalEstimat Glomerular Filtration Rate 2018-02-07 15:44:00* Test Item Value Reference Range Interpretation Comments Estimat Glomerular Filtration Rate (test code = 69756-4) 60- >60 Ranges were taken from the National Kidney Disease Education Program and the [facility] literature.Reference ranges:60 or greater: Zonzcn59-28 ( for 3 consecutive months): Chronic kidney disease 15 or less: Kidney failureMidland Memorial HospitalGlucose Rrcmq4949-80-17 15:44:00* Test Item Value Reference Range Interpretation Comments Glucose Level (test code = IGW3713) 95 74-118 [facility] HospitalCalcium Vhymj6752-93-31 15:44:00* Test Item Value Reference Range Interpretation Comments Calcium Level (test code = 86343-4) 8.9 8.4-10.2 [facility] HospitalTotal Jxmyvpifs0838-96-09 15:44:00* Test Item Value Reference Range Interpretation Comments Total Bilirubin (test code = 1975-2) 0.4 0.2-1.2 [facility] HospitalAspartate Amino Transf (AST/SGOT) 2018-02-07 15:44:00* Test Item Value Reference Range Interpretation Comments Aspartate Amino Transf (AST/SGOT) (test code = Aspartate Amino Transf (AST/SGOT)) 29 5-34 [facility] HospitalAlanine Aminotransferase (ALT/SGPT) 2018-02-07 15:44:00* Test Item Value Reference Range Interpretation Comments Alanine Aminotransferase (ALT/SGPT) (test code = 1742-6) 55 0-55 [facility] HospitalTotal Lejytcp7640-58-18 15:44:00* Test Item Value Reference Range Interpretation Comments Total Protein (test code = 2885-2) 6.8 6.5-8.1 [facility] HospitalAlbumin2018-06-24 15:44:00* Test Item Value Reference Range Interpretation Comments Albumin (test code = 1751-7) 3.5 3.5-5.0 [facility] HospitalGlobulin2018-06-24 15:44:00* Test Item Value Reference Range Interpretation Comments Globulin (test code = 11397-6) 3.3 2.3-3.5 [facility] HospitalAlbumin/Globulin Uqchj1525-19-48 15:44:00 * Test Item Value Reference Range Interpretation Comments Albumin/Globulin Ratio (test code = 1759-0) 1.1 0.8-2.0 [facility] HospitalAlkaline Zlrxiymequc3010-90-27 15:44:00* Test Item Value Reference Range Interpretation Comments Alkaline Phosphatase (test code = 6768-6) 62 40-150 [facility] Hospitalodium Zbklx7129-36-16 15:44:00* Test Item Value Reference Range Interpretation Comments Sodium Level (test code = 2951-2) 139 136-145 [facility] HospitalPotassium Nczqt3512-39-39 15:44:00* Test Item Value Reference Range Interpretation Comments Potassium Level (test code = 2823-3) 3.6 3.5-5.1 [facility] HospitalChloride Cewwp7739-44-43 15:44:00* Test Item Value Reference Range Interpretation Comments Chloride Level (test code = 2075-0) 107 98-107 [facility] HospitalCarbon Dioxide Sopku3585-05-50 15:44:00* Test Item Value Reference Range Interpretation Comments Carbon Dioxide Level (test code = 2028-9) 24 22-29 [facility] HospitalAnion Laa7566-24-42 15:44:00* Test Item Value Reference Range Interpretation Comments Anion Gap (test code = 86950-4) 11.6 8-16 [facility] HospitalBlood Urea Bdqryvto4614-04-45 15:44:00* Test Item Value Reference Range Interpretation Comments Blood Urea Nitrogen (test code = 3094-0) 15 7-26 [facility] HospitalCreatinine2018-06-24 15:44:00* Test Item Value Reference Range Interpretation Comments Creatinine (test code = 2160-0) 0.78 0.57-1.11 [facility] HospitalBUN/Creatinine Qkypf1332-80-70 15:44:00* Test Item Value Reference Range Interpretation Comments BUN/Creatinine Ratio (test code = 3097-3) 19 6- [facility] HospitalEstimat Glomerular Filtration Rate 2018-02-07 15:44:00* Test Item Value Reference Range Interpretation Comments Estimat Glomerular Filtration Rate (test code = 80063-3) 60- >60 Ranges were taken from the National Kidney Disease Education Program and the [facility] literature.Reference ranges:60 or greater: Qqdbdz92-09 ( for 3 consecutive months): Chronic kidney disease 15 or less: Kidney failureMidland Memorial HospitalGlucose Hqpvt0344-30-10 15:44:00* Test Item Value Reference Range Interpretation Comments Glucose Level (test code = DSW0522) 95 74-118 [facility] HospitalCalcium Grtvh7582-31-95 15:44:00* Test Item Value Reference Range Interpretation Comments Calcium Level (test code = 20176-9) 8.9 8.4-10.2 [facility] HospitalTotal Toklxnvah8624-75-78 15:44:00* Test Item Value Reference Range Interpretation Comments Total Bilirubin (test code = 1975-2) 0.4 0.2-1.2 [facility] HospitalAspartate Amino Transf (AST/SGOT) 2018-02-07 15:44:00* Test Item Value Reference Range Interpretation Comments Aspartate Amino Transf (AST/SGOT) (test code = Aspartate Amino Transf (AST/SGOT)) 29 5-34 [facility] HospitalAlanine Aminotransferase (ALT/SGPT) 2018-02-07 15:44:00* Test Item Value Reference Range Interpretation Comments Alanine Aminotransferase (ALT/SGPT) (test code = 1742-6) 55 0-55 [facility] HospitalTotal Kmnkbth9200-89-71 15:44:00* Test Item Value Reference Range Interpretation Comments Total Protein (test code = 2885-2) 6.8 6.5-8.1 [facility] HospitalAlbumin2018-06-24 15:44:00* Test Item Value Reference Range Interpretation Comments Albumin (test code = 1751-7) 3.5 3.5-5.0 [facility] HospitalGlobulin2018-06-24 15:44:00* Test Item Value Reference Range Interpretation Comments Globulin (test code = 96968-3) 3.3 2.3-3.5 [facility] HospitalAlbumin/Globulin Fxhbu8468-11-78 15:44:00 * Test Item Value Reference Range Interpretation Comments Albumin/Globulin Ratio (test code = 1759-0) 1.1 0.8-2.0 [facility] HospitalAlkaline Ihzvgqvatrv2499-13-84 15:44:00* Test Item Value Reference Range Interpretation Comments Alkaline Phosphatase (test code = 6768-6) 62 40-150 [facility] Chorionic Gonadotropin, Qual 2018-02-07 15:37:00* Test Item Value Reference Range Interpretation Comments Human Chorionic Gonadotropin, Qual (test code = 2118-8) NEGATIVE NEGATIVE [facility] Chorionic Gonadotropin, Qual 2018-02-07 15:37:00* Test Item Value Reference Range Interpretation Comments Human Chorionic Gonadotropin, Qual (test code = 2118-8) NEGATIVE NEGATIVE [facility] HospitalUrine Vfhrk9711-67-18 15:35:00* Test Item Value Reference Range Interpretation Comments Urine Color (test code = 5778-6) YELLOW YELLOW [facility] HospitalUrine Specific Qwgntvu5912-38-72 15:35:00 * Test Item Value Reference Range Interpretation Comments Urine Specific Jenkins (test code = 5811-5) 1.030 1.010-1.02 5 H [facility] HospitalUrine yT7894-86-29 15:35:00* Test Item Value Reference Range Interpretation Comments Urine pH (test code = 47141-7) 6 5-7 [facility] HospitalUrine Leukocyte Vcvzcuif4205-05-84 15:35:00* Test Item Value Reference Range Interpretation Comments Urine Leukocyte Esterase (test code = 5799-2) NEGATIVE NEGATIVE [facility] HospitalUrine Bwllzgm8173-45-57 15:35:00* Test Item Value Reference Range Interpretation Comments Urine Nitrite (test code = 79369-2) NEGATIVE NEGATIVE [facility] HospitalUrine Buyisha5075-64-60 15:35:00* Test Item Value Reference Range Interpretation Comments Urine Protein (test code = 5804-0) 1+ NEGATIVE H [facility] HospitalUrine Glucose (UA)2018-02-07 15:35:00* Test Item Value Reference Range Interpretation Comments Urine Glucose (UA) (test code = 2349-9) NEGATIVE NEGATIVE [facility] HospitalUrine Vsxbzrl1146-83-80 15:35:00* Test Item Value Reference Range Interpretation Comments Urine Ketones (test code = 12258-7) 1+ NEGATIVE H [facility] HospitalUrine Bpnbkaaogqha0491-08-99 15:35:00* Test Item Value Reference Range Interpretation Comments Urine Urobilinogen (test code = 63264-6) 0.2 0.2-1 [facility] HospitalUrine Ymlterebw9364-97-63 15:35:00* Test Item Value Reference Range Interpretation Comments Urine Bilirubin (test code = 1978-6) 1+ NEGATIVE H [facility] HospitalUrine Rkfvh0699-34-79 15:35:00* Test Item Value Reference Range Interpretation Comments Urine Blood (test code = 71695-3) 1+ NEGATIVE H [facility] HospitalUrine Whzev2054-69-54 15:35:00* Test Item Value Reference Range Interpretation Comments Urine Color (test code = 5778-6) YELLOW YELLOW [facility] HospitalUrine Specific Qpwmfdp2003-92-95 15:35:00 * Test Item Value Reference Range Interpretation Comments Urine Specific Jenkins (test code = 5811-5) 1.030 1.010-1.02 5 H [facility] HospitalUrine jO0727-53-90 15:35:00* Test Item Value Reference Range Interpretation Comments Urine pH (test code = 32426-8) 6 5-7 [facility] HospitalUrine Leukocyte Ivsaqkvx8816-56-15 15:35:00* Test Item Value Reference Range Interpretation Comments Urine Leukocyte Esterase (test code = 5799-2) NEGATIVE NEGATIVE [facility] HospitalUrine Rrdjeeq1681-58-95 15:35:00* Test Item Value Reference Range Interpretation Comments Urine Nitrite (test code = 24485-4) NEGATIVE NEGATIVE [facility] HospitalUrine Lsraocf3659-71-71 15:35:00* Test Item Value Reference Range Interpretation Comments Urine Protein (test code = 5804-0) 1+ NEGATIVE H [facility] HospitalUrine Glucose (UA)2018-02-07 15:35:00* Test Item Value Reference Range Interpretation Comments Urine Glucose (UA) (test code = 2349-9) NEGATIVE NEGATIVE [facility] HospitalUrine Tbijzgu4726-49-04 15:35:00* Test Item Value Reference Range Interpretation Comments Urine Ketones (test code = 19250-0) 1+ NEGATIVE H [facility] HospitalUrine Gerdmfdvvocs4162-64-01 15:35:00* Test Item Value Reference Range Interpretation Comments Urine Urobilinogen (test code = 34239-8) 0.2 0.2-1 [facility] HospitalUrine Xhdfbhdlb8063-78-23 15:35:00* Test Item Value Reference Range Interpretation Comments Urine Bilirubin (test code = 1978-6) 1+ NEGATIVE H [facility] HospitalUrine Fgwsz8782-52-85 15:35:00* Test Item Value Reference Range Interpretation Comments Urine Blood (test code = 60671-3) 1+ NEGATIVE H [facility] HospitalWhite Blood Qfxfy8154-19-97 15:21:00* Test Item Value Reference Range Interpretation Comments White Blood Count (test code = 6690-2) 8.40 4.8-10.8 [facility] HospitalRed Blood Zzrzs3432-53-72 15:21:00* Test Item Value Reference Range Interpretation Comments Red Blood Count (test code = 789-8) 4.67 3.6-5.1 [facility] HospitalHemoglobin2018-06-24 15:21:00* Test Item Value Reference Range Interpretation Comments Hemoglobin (test code = 19401-4) 13.8 12.0-16.0 [facility] HospitalHematocrit2018-06-24 15:21:00* Test Item Value Reference Range Interpretation Comments Hematocrit (test code = 4544-3) 41.0 34.2-44.1 [facility] HospitalMean Corpuscular Bkfvbq3609-31-24 15:21:00* Test Item Value Reference Range Interpretation Comments Mean Corpuscular Volume (test code = 787-2) 87.8 81-99 [facility] HospitalMean Corpuscular Sfzsfgiikk9581-16-01 15:21:00* Test Item Value Reference Range Interpretation Comments Mean Corpuscular Hemoglobin (test code = 785-6) 29.6 28-32 [facility] HospitalMean Corpuscular Hemoglobin Concent 2018-02-07 15:21:00* Test Item Value Reference Range Interpretation Comments Mean Corpuscular Hemoglobin Concent (test code = 786-4) 33.7 31-35 [facility] HospitalRed Cell Distribution Syiva9489-15-69 15:21:00* Test Item Value Reference Range Interpretation Comments Red Cell Distribution Width (test code = 55437-7) 12.7 11.7 -14.4 [facility] HospitalPlatelet Nitaf0012-70-93 15:21:00* Test Item Value Reference Range Interpretation Comments Platelet Count (test code = 777-3) 229 140-360 [facility] HospitalNeutrophils (%) (Auto)2018-02-07 15:21:00 * Test Item Value Reference Range Interpretation Comments Neutrophils (%) (Auto) (test code = 45140-1) 68.1 38.7-80.0 [facility] HospitalLymphocytes (%) (Auto)2018-02-07 15:21:00 * Test Item Value Reference Range Interpretation Comments Lymphocytes (%) (Auto) (test code = 736-9) 20.1 18.0-39.1 [facility] HospitalMonocytes (%) (Auto)2018-02-07 15:21:00* Test Item Value Reference Range Interpretation Comments Monocytes (%) (Auto) (test code = 5905-5) 7.6 4.4-11.3 [facility] HospitalEosinophils (%) (Auto)2018-02-07 15:21:00 * Test Item Value Reference Range Interpretation Comments Eosinophils (%) (Auto) (test code = 713-8) 3.6 0.0-6.0 [facility] HospitalBasophils (%) (Auto)2018-02-07 15:21:00* Test Item Value Reference Range Interpretation Comments Basophils (%) (Auto) (test code = 706-2) 0.2 0.0-1.0 [facility] HospitalIM GRANULOCYTES %2018-02-07 15:21:00* Test Item Value Reference Range Interpretation Comments IM GRANULOCYTES % (test code = IM GRANULOCYTES %) 0.4 0.0- 1.0 [facility] HospitalNeutrophils # (Auto)2018-02-07 15:21:00* Test Item Value Reference Range Interpretation Comments Neutrophils # (Auto) (test code = 751-8) 5.7 2.1-6.9 [facility] HospitalLymphocytes # (Auto)2018-02-07 15:21:00* Test Item Value Reference Range Interpretation Comments Lymphocytes # (Auto) (test code = 71380-7) 1.7 1.0-3.2 [facility] HospitalMonocytes # (Auto)2018-02-07 15:21:00* Test Item Value Reference Range Interpretation Comments Monocytes # (Auto) (test code = 742-7) 0.6 0.2-0.8 [facility] HospitalEosinophils # (Auto)2018-02-07 15:21:00* Test Item Value Reference Range Interpretation Comments Eosinophils # (Auto) (test code = 711-2) 0.3 0.0-0.4 [facility] HospitalBasophils # (Auto)2018-02-07 15:21:00* Test Item Value Reference Range Interpretation Comments Basophils # (Auto) (test code = 704-7) 0.0 0.0-0.1 [facility] HospitalAbsolute Immature Granulocyte (auto 2018-02-07 15:21:00* Test Item Value Reference Range Interpretation Comments Absolute Immature Granulocyte (auto (tristan t code = Absolute Immature Granulocyte (auto) 0.03 0-0.1 [facility] HospitalWhite Blood Znedu9549-84-75 15:21:00* Test Item Value Reference Range Interpretation Comments White Blood Count (test code = 6690-2) 8.40 4.8-10.8 [facility] HospitalRed Blood Hnazr5658-04-46 15:21:00* Test Item Value Reference Range Interpretation Comments Red Blood Count (test code = 789-8) 4.67 3.6-5.1 [facility] HospitalHemoglobin2018-06-24 15:21:00* Test Item Value Reference Range Interpretation Comments Hemoglobin (test code = 51939-5) 13.8 12.0-16.0 [facility] HospitalHematocrit2018-06-24 15:21:00* Test Item Value Reference Range Interpretation Comments Hematocrit (test code = 4544-3) 41.0 34.2-44.1 [facility] HospitalMean Corpuscular Cbfoso9346-60-91 15:21:00* Test Item Value Reference Range Interpretation Comments Mean Corpuscular Volume (test code = 787-2) 87.8 81-99 [facility] HospitalMean Corpuscular Gxvexcsawi2279-53-17 15:21:00* Test Item Value Reference Range Interpretation Comments Mean Corpuscular Hemoglobin (test code = 785-6) 29.6 28-32 [facility] Hemoglobin Concent 2018-02-07 15:21:00* Test Item Value Reference Range Interpretation Comments Mean Corpuscular Hemoglobin Concent (test code = 786-4) 33.7 31-35 [facility] HospitalRed Cell Distribution Jakce4025-43-50 15:21:00* Test Item Value Reference Range Interpretation Comments Red Cell Distribution Width (test code = 75479-2) 12.7 11.7 -14.4 [facility] HospitalPlatelet Orgce8133-32-61 15:21:00* Test Item Value Reference Range Interpretation Comments Platelet Count (test code = 777-3) 229 140-360 [facility] HospitalNeutrophils (%) (Auto)2018-02-07 15:21:00 * Test Item Value Reference Range Interpretation Comments Neutrophils (%) (Auto) (test code = 89444-1) 68.1 38.7-80.0 [facility] HospitalLymphocytes (%) (Auto)2018-02-07 15:21:00 * Test Item Value Reference Range Interpretation Comments Lymphocytes (%) (Auto) (test code = 736-9) 20.1 18.0-39.1 [facility] HospitalMonocytes (%) (Auto)2018-02-07 15:21:00* Test Item Value Reference Range Interpretation Comments Monocytes (%) (Auto) (test code = 5905-5) 7.6 4.4-11.3 [facility] HospitalEosinophils (%) (Auto)2018-02-07 15:21:00 * Test Item Value Reference Range Interpretation Comments Eosinophils (%) (Auto) (test code = 713-8) 3.6 0.0-6.0 [facility] HospitalBasophils (%) (Auto)2018-02-07 15:21:00* Test Item Value Reference Range Interpretation Comments Basophils (%) (Auto) (test code = 706-2) 0.2 0.0-1.0 [facility] HospitalIM GRANULOCYTES %2018-02-07 15:21:00* Test Item Value Reference Range Interpretation Comments IM GRANULOCYTES % (test code = IM GRANULOCYTES %) 0.4 0.0- 1.0 [facility] HospitalNeutrophils # (Auto)2018-02-07 15:21:00* Test Item Value Reference Range Interpretation Comments Neutrophils # (Auto) (test code = 751-8) 5.7 2.1-6.9 [facility] HospitalLymphocytes # (Auto)2018-02-07 15:21:00* Test Item Value Reference Range Interpretation Comments Lymphocytes # (Auto) (test code = 27609-0) 1.7 1.0-3.2 [facility] HospitalMonocytes # (Auto)2018-02-07 15:21:00* Test Item Value Reference Range Interpretation Comments Monocytes # (Auto) (test code = 742-7) 0.6 0.2-0.8 [facility] HospitalEosinophils # (Auto)2018-02-07 15:21:00* Test Item Value Reference Range Interpretation Comments Eosinophils # (Auto) (test code = 711-2) 0.3 0.0-0.4 [facility]Basophils # (Auto)2018-02-07 15:21:00* Test Item Value Reference Range Interpretation Comments Basophils # (Auto) (test code = 704-7) 0.0 0.0-0.1 [facility] HospitalAbsolute Immature Granulocyte (auto 2018-02-07 15:21:00* Test Item Value Reference Range Interpretation Comments Absolute Immature Granulocyte (auto (tristan t code = Absolute Immature Granulocyte (auto) 0.03 0-0.1 [facility] HospitalUrine QWF1502-84-13 00:12:00* Test Item Value Reference Range Interpretation Comments Urine WBC (test code = 5821-4) 6-10 0-5 H [facility] HospitalUrine JMD0245-61-00 00:12:00* Test Item Value Reference Range Interpretation Comments Urine RBC (test code = 81273-2) 11-20 0-5 H [facility] HospitalUrine Mddvpadn7819-98-83 00:12:00* Test Item Value Reference Range Interpretation Comments Urine Bacteria (test code = 42326-4) MANY NONE H [facility] HospitalUrine Epithelial Rguum5927-19-37 00:12:00 * Test Item Value Reference Range Interpretation Comments Urine Epithelial Cells (test code = 00817-5) FEW NONE [facility] HospitalUrine Transitional Epithelial Cells 2018-02-05 00:12:00* Test Item Value Reference Range Interpretation Comments Urine Transitional Epithelial Cells (test code = 8249-5) FEW NONE [facility] Zmuzt1511-93-85 00:12:00* Test Item Value Reference Range Interpretation Comments Sodium Level (test code = 2951-2) 138 136-145 [facility] HospitalPotassium Itzej1209-04-96 00:12:00* Test Item Value Reference Range Interpretation Comments Potassium Level (test code = 2823-3) 3.8 3.5-5.1 [facility] HospitalChloride Jfjva1188-42-88 00:12:00* Test Item Value Reference Range Interpretation Comments Chloride Level (test code = 2075-0) 105 98-107 [facility] HospitalCarbon Dioxide Vqjzb6878-06-38 00:12:00* Test Item Value Reference Range Interpretation Comments Carbon Dioxide Level (test code = 2028-9) 21 22-29 L [facility] HospitalAnion Jyo6066-11-05 00:12:00* Test Item Value Reference Range Interpretation Comments Anion Gap (test code = 91224-9) 15.8 8-16 [facility] HospitalBlood Urea Cybpsgqa4791-90-25 00:12:00* Test Item Value Reference Range Interpretation Comments Blood Urea Nitrogen (test code = 3094-0) 16 7-26 [facility] HospitalCreatinine2018-06-22 00:12:00* Test Item Value Reference Range Interpretation Comments Creatinine (test code = 2160-0) 0.64 0.57-1.11 [facility] HospitalBUN/Creatinine Cpqom2980-53-89 00:12:00* Test Item Value Reference Range Interpretation Comments BUN/Creatinine Ratio (test code = 3097-3) 25 6-25 [facility] HospitalEstimat Glomerular Filtration Rate 2018-02-05 00:12:00* Test Item Value Reference Range Interpretation Comments Estimat Glomerular Filtration Rate (test code = 60150-3) 60- >60 Ranges were taken from the National Kidney Disease Education Program and the [facility] literature.Reference ranges:60 or greater: Hcrzjm72-53 ( for 3 consecutive months): Chronic kidney disease 15 or less: Kidney failureMidland [facility] HospitalGlucose Etypc7598-25-87 00:12:00* Test Item Value Reference Range Interpretation Comments Glucose Level (test code = FZY0478) 94 74-118 [facility] HospitalCalcium Bdfbe7876-77-98 00:12:00* Test Item Value Reference Range Interpretation Comments Calcium Level (test code = 61830-7) 9.0 8.4-10.2 [facility] HospitalTotal Vfqrlyxzb0587-59-98 00:12:00* Test Item Value Reference Range Interpretation Comments Total Bilirubin (test code = 1975-2) 1.0 0.2-1.2 [facility] HospitalAspartate Amino Transf (AST/SGOT) 2018-02-05 00:12:00* Test Item Value Reference Range Interpretation Comments Aspartate Amino Transf (AST/SGOT) (test code = Aspartate Amino Transf (AST/SGOT)) 26 5-34 [facility] HospitalAlanine Aminotransferase (ALT/SGPT) 2018-02-05 00:12:00* Test Item Value Reference Range Interpretation Comments Alanine Aminotransferase (ALT/SGPT) (test code = 1742-6) 30 0-55 [facility] HospitalTotal Cazwkrt0054-61-80 00:12:00* Test Item Value Reference Range Interpretation Comments Total Protein (test code = 2885-2) 7.2 6.5-8.1 [facility] HospitalAlbumin2018-06-22 00:12:00* Test Item Value Reference Range Interpretation Comments Albumin (test code = 1751-7) 3.7 3.5-5.0 [facility] HospitalGlobulin2018-06-22 00:12:00* Test Item Value Reference Range Interpretation Comments Globulin (test code = 26386-7) 3.5 2.3-3.5 [facility] HospitalAlbumin/Globulin Dxysg8378-50-22 00:12:00 * Test Item Value Reference Range Interpretation Comments Albumin/Globulin Ratio (test code = 1759-0) 1.1 0.8-2.0 [facility] HospitalAlkaline Hablnnytipb3983-16-37 00:12:00* Test Item Value Reference Range Interpretation Comments Alkaline Phosphatase (test code = 6768-6) 72 40-150 [facility] HospitalUrine Transitional Epithelial Cells 2018-02-05 00:12:00* Test Item Value Reference Range Interpretation Comments Urine Transitional Epithelial Cells (test code = 8249-5) FEW NONE H [facility] HospitalUrine Transitional Epithelial Cells 2018-02-05 00:12:00* Test Item Value Reference Range Interpretation Comments Urine Transitional Epithelial Cells (test code = 8249-5) FEW NONE H [facility] HospitalWhite Blood Kmqmq4565-11-41 00:00:00* Test Item Value Reference Range Interpretation Comments White Blood Count (test code = 6690-2) 8.91 4.8-10.8 [facility] HospitalRed Blood Jtifq7930-54-21 00:00:00* Test Item Value Reference Range Interpretation Comments Red Blood Count (test code = 789-8) 4.80 3.6-5.1 [facility] HospitalHemoglobin2018-06-22 00:00:00* Test Item Value Reference Range Interpretation Comments Hemoglobin (test code = 01733-6) 14.4 12.0-16.0 [facility] HospitalHematocrit2018-06-22 00:00:00* Test Item Value Reference Range Interpretation Comments Hematocrit (test code = 4544-3) 41.8 34.2-44.1 [facility] HospitalMean Corpuscular Slvukz6813-09-35 00:00:00* Test Item Value Reference Range Interpretation Comments Mean Corpuscular Volume (test code = 787-2) 87.1 81-99 [facility] HospitalMean Corpuscular Dyudhshmnz4946-39-41 00:00:00* Test Item Value Reference Range Interpretation Comments Mean Corpuscular Hemoglobin (test code = 785-6) 30.0 28-32 [facility] HospitalMean Corpuscular Hemoglobin Concent 2018-02-05 00:00:00* Test Item Value Reference Range Interpretation Comments Mean Corpuscular Hemoglobin Concent (test code = 786-4) 34.4 31-35 [facility] HospitalRed Cell Distribution Akksc6365-26-15 00:00:00* Test Item Value Reference Range Interpretation Comments Red Cell Distribution Width (test code = 77840-4) 12.4 11.7 -14.4 [facility] HospitalPlatelet Vwemg4385-24-61 00:00:00* Test Item Value Reference Range Interpretation Comments Platelet Count (test code = 777-3) 236 140-360 [facility] HospitalNeutrophils (%) (Auto)2018-02-05 00:00:00 * Test Item Value Reference Range Interpretation Comments Neutrophils (%) (Auto) (test code = 84541-2) 84.6 38.7-80.0 H [facility] HospitalLymphocytes (%) (Auto)2018-02-05 00:00:00 * Test Item Value Reference Range Interpretation Comments Lymphocytes (%) (Auto) (test code = 736-9) 7.2 18.0-39.1 L [facility] HospitalMonocytes (%) (Auto)2018-02-05 00:00:00* Test Item Value Reference Range Interpretation Comments Monocytes (%) (Auto) (test code = 5905-5) 6.2 4.4-11.3 [facility] HospitalEosinophils (%) (Auto)2018-02-05 00:00:00 * Test Item Value Reference Range Interpretation Comments Eosinophils (%) (Auto) (test code = 713-8) 1.5 0.0-6.0 [facility] HospitalBasophils (%) (Auto)2018-02-05 00:00:00* Test Item Value Reference Range Interpretation Comments Basophils (%) (Auto) (test code = 706-2) 0.2 0.0-1.0 [facility] HospitalIM GRANULOCYTES %2018-02-05 00:00:00* Test Item Value Reference Range Interpretation Comments IM GRANULOCYTES % (test code = IM GRANULOCYTES %) 0.3 0.0- 1.0 [facility] HospitalNeutrophils # (Auto)2018-02-05 00:00:00* Test Item Value Reference Range Interpretation Comments Neutrophils # (Auto) (test code = 751-8) 7.5 2.1-6.9 H [facility] HospitalLymphocytes # (Auto)2018-02-05 00:00:00* Test Item Value Reference Range Interpretation Comments Lymphocytes # (Auto) (test code = 08050-0) 0.6 1.0-3.2 L [facility] HospitalMonocytes # (Auto)2018-02-05 00:00:00* Test Item Value Reference Range Interpretation Comments Monocytes # (Auto) (test code = 742-7) 0.6 0.2-0.8 [facility] HospitalEosinophils # (Auto)2018-02-05 00:00:00* Test Item Value Reference Range Interpretation Comments Eosinophils # (Auto) (test code = 711-2) 0.1 0.0-0.4 [facility] HospitalBasophils # (Auto)2018-02-05 00:00:00* Test Item Value Reference Range Interpretation Comments Basophils # (Auto) (test code = 704-7) 0.0 0.0-0.1 [facility] HospitalAbsolute Immature Granulocyte (auto 2018-02-05 00:00:00* Test Item Value Reference Range Interpretation Comments Absolute Immature Granulocyte (auto (tristan t code = Absolute Immature Granulocyte (auto) 0.03 0-0.1 [facility] HospitalUrine Znzbj0607-54-44 23:55:00* Test Item Value Reference Range Interpretation Comments Urine Color (test code = 5778-6) YELLOW YELLOW [facility] HospitalUrine Mgykllr4217-25-53 23:55:00* Test Item Value Reference Range Interpretation Comments Urine Clarity (test code = 44149-4) CLEAR CLEAR [facility] HospitalUrine Specific Cwrulwv8256-98-18 23:55:00 * Test Item Value Reference Range Interpretation Comments Urine Specific Jenkins (test code = 5811-5) 1.025 1.010-1.02 5 [facility] HospitalUrine gL9408-66-70 23:55:00* Test Item Value Reference Range Interpretation Comments Urine pH (test code = 69996-1) 6 5-7 [facility] HospitalUrine Leukocyte Olndzkdk9938-35-22 23:55:00* Test Item Value Reference Range Interpretation Comments Urine Leukocyte Esterase (test code = 5799-2) NEGATIVE NEGATIVE [facility] HospitalUrine Dsrsnuc1178-58-85 23:55:00* Test Item Value Reference Range Interpretation Comments Urine Nitrite (test code = 87864-0) NEGATIVE NEGATIVE [facility] HospitalUrine Ijykhzh1671-76-62 23:55:00* Test Item Value Reference Range Interpretation Comments Urine Protein (test code = 5804-0) TRACE NEGATIVE H [facility] HospitalUrine Glucose (UA)2018-02-04 23:55:00* Test Item Value Reference Range Interpretation Comments Urine Glucose (UA) (test code = 2349-9) NEGATIVE NEGATIVE [facility] HospitalUrine Faluhti6907-25-05 23:55:00* Test Item Value Reference Range Interpretation Comments Urine Ketones (test code = 28107-3) 3+ NEGATIVE H [facility] HospitalUrine Uviiealuyego6440-57-58 23:55:00* Test Item Value Reference Range Interpretation Comments Urine Urobilinogen (test code = 79566-3) 0.2 0.2-1 [facility] HospitalUrine Opfaasrng9465-59-62 23:55:00* Test Item Value Reference Range Interpretation Comments Urine Bilirubin (test code = 1978-6) 1+ NEGATIVE H [facility] HospitalUrine Gwymr6401-96-64 23:55:00* Test Item Value Reference Range Interpretation Comments Urine Blood (test code = 95980-3) 4+ NEGATIVE H [facility] HospitalUrine Qowo8359-89-10 23:54:00* Test Item Value Reference Range Interpretation Comments Urine Test (test code = 2106-3) NEGATIVE NEGATIVE [facility] Xbht6594-66-75 23:54:00* Test Item Value Reference Range Interpretation Comments Urine Test (test code = 2106-3) NEGATIVE NEGATIVE [facility] Utqr0076-19-67 23:54:00* Test Item Value Reference Range Interpretation Comments Urine Test (test code = 2106-3) NEGATIVE NEGATIVE [facility] PGAWRPH8322-83-30 21:58:00<[facility].02 [facility] HermannCHEM OKTIQ3116-68-42 21:58:00* Test Item Value Reference Range Interpretation Comments A/G Ratio (test code = A/G Ratio) 1.0 1 0.7-1.6 [facility]annCHEM RNOHS4983-10-67 21:58:00* Test Item Value Reference Range Interpretation Comments B/C Ratio (test code = B/C Ratio) 13 1 6-25 [facility]annCHEM TUWJM2496-18-36 21:58:003.5[facility] HermannCHEM PANEL 2018-01-12 21:58:0012.2[facility] HermannCHEM NYMIB6613-79-35 21:58:63359Cfhwpqsq HermannCHEM MTMDT1839-05-88 21:58:0076[facility]annCHEM UXKTD3037-86-39 21:58:0039[facility]annCHEM EMBJE7589-52-33 21:58:0038[facility]annCHEM QBBLR9922-02-07 21:58:000.7[facility]annCHEM IIGQM7946-74-83 21:58:0093 [facility]annCHEM OZSSH7646-51-62 21:58:000.78[facility]annCHEM PANEL 2018-01-12 21:58:0010[facility]annCHEM QSVUV3349-36-78 21:58:51796Amrtmyze HermannCHEM OTCUC0004-89-72 21:58:008.3[facility]annCHEM FDXUJ9367-73-45 21:58:007.0[facility]annCHEM TOCRS6819-26-19 21:58:003.5[facility]annCHEM LMCOG9317-83-49 21:58:0024[facility]annCHEM MXGVB0202-17-53 21:58:18225 [facility]annCHEM DQTTH1470-33-83 21:58:004.2[facility] HermannENDOCRINOLOGY 2018-01-12 21:58:00Negative *NA*(01/12/18 4:58 PM)[facility]annHEMATOLOGY 2018-01-12 21:58:002.4[facility] JgltvirPEGIEQXLAC4993-83-64 21:58:000.9[facility] JkksefzCOXFYLWILY6384-68-79 21:58:006.6[facility] OosuwheHCLXMSVFGO6635-74-14 21:58:005.1[facility] NqwovjhTXKYSXYPBH2971-23-89 21:58:0022.9[facility] ZROGPZOVZZ4542-01-07 21:58:000.8[facility] GynyyaaNYDHQYZHOI2591-17-67 21:58:008.8 [facility] WngqdqtLVHMOMINYG2674-47-30 21:58:0062.4[facility] HermannHEMATOLOGY 2018-01-12 21:58:000.5[facility] IjoaokgXZAXZFNUJR6796-65-10 21:58:000.1[facility] HhibtxhBDFNBECDWS5919-83-67 21:58:009.0[facility] ZaaniwkSUYQYNICDK8180-43-66 21:58:004.80[facility] AgqokcxRTOONYKATE2655-31-96 21:58:0010.6[facility] RFTRETFLTX6748-27-93 21:58:0014.2[facility] MdsbxmjHJSABKFQOD2834-86-61 21:58:00 227[facility] MhxetruYWKRYKCROI1211-54-19 21:58:0012.7[facility] HermannHEMATOLOGY 2018-01-12 21:58:0033.4[facility] SopzxccDESTUOTMOS5932-79-61 21:58:0088.3[facility] DqomazaPYVOEAPGTY5686-90-97 21:58:0042.4[facility] SvcfmakNLUEXLTCGQ0225-44-92 21:58:00* Test Item Value Reference Range Interpretation Comments MCH (test code = MCH) 29.5 pg 27.0-31.0 [facility]annCHEM CZWZV3836-09-58 05:53:00973Jtuocdyl HermannCHEM PANEL 2016-12-31 05:53:0086[facility] HermannCHEM WRESQ7740-05-02 05:53:28194Ywxuxpqj [facility]annCHEM XNTBH1934-27-29 05:53:009[facility]annCHEM EDWKN3662-60-78 05:53:000.74[facility]annCHEM XISXX0032-45-77 05:53:007.1[facility] HermannCHEM XQVAJ2434-34-35 05:53:0025[facility]annCHEM UFHBQ3981-87-96 05:53:008.7 [facility]annCHEM BQTAN6938-30-28 05:53:003.8[facility] HermannCHEM PANEL 2016-12-31 05:53:04266Zjlyarjn HermannCHEM BOTVS3836-26-26 05:53:0013[facility]annCHEM EYHVN3645-19-50 05:53:0083[facility]annCHEM ZCCWL6603-34-92 05:53:003.5[facility]annCHEM GVKTZ1946-16-23 05:53:0022[facility]annCHEM EIXIV7150-82-18 05:53:000.4[facility]annCHEM PHLGY1375-96-61 05:53:0012 [facility]annCHE[facility] TAQHC4609-00-25 05:53:003.6[facility] HermannCHEM PANEL 2016-12-31 05:53:001.0[facility] HermannCHEM QIROL2954-72-17 05:53:0011.8[facility]annCHEM PMKWZ7534-13-68 05:53:82748Bpfxhrtk AnhmmcwIVPJATZWOLJYS5195-03-33 05:53:00Negative *NA*(12/31/16 12:53 AM)[facility] SniuicsTZHNBYJPEB7680-68-79 05:53:0053.9[facility] HnmmxgyZACQZZGPCQ1255-50-59 05:53:004.9[facility] SAMZEIYBYL9487-64-58 05:53:001.2[facility] WkurvugDAVUXTTVFX7827-29-08 05:53:005.0 [facility] CkmjtyrOJHWUYDHQP4470-60-38 05:53:0031.8[facility] HermannHEMATOLOGY 2016-12-31 05:53:008.2[facility] EntqlrhUBEYVKEVKH5416-65-71 05:53:000.1[facility] QihuwhyMQSNRDBAZU5875-93-40 05:53:003.0[facility] IvzfctuPRLQASAEYK1200-96-53 05:53:000.8[facility] VwxhwwbMOFRIZXLRM5856-60-37 05:53:000.5[facility] TQRJFIUTPH7927-33-13 05:53:009.6[facility] DknqtljLNXVTNRTQK0386-19-54 05:53:00 33.1[facility] FjlevikLQLSXGSFPN6480-16-27 05:53:0012.4[facility] HermannHEMATOLOGY 2016-12-31 05:53:66482Mrduopmd BynjnizUMKVRKERPO2941-23-95 05:53:0089.8[facility] JckdrpyUVAMXZKTXI1168-41-13 05:53:00* Test Item Value Reference Range Interpretation Comments MCH (test code = MCH) 29.7 pg 27.0-31.0 [facility] TvkcxbyXRDKLGKHRQ8668-91-13 05:53:0045.3[facility] HermannHEMATOLOGY 2016-12-31 05:53:009.3[facility] ZhlinxbJUNOOKKMSU5057-31-78 05:53:005.04[facility] QrwwcozLBXVXBMMCC4737-96-66 05:53:0015.0[facility] HermannURINE AND STOOL 2016-12-31 05:53:0033[facility]annURINE AND RPZHF7513-90-69 05:53:0027 [facility] AND KJAIV5439-92-69 05:53:00Trace *ABN*(12/31/16 12:53 AM) [facility] NHFLO3163-72-97 05:53:00Large *ABN*(12/31/16 12:53 AM) [facility] KDXXV7030-09-93 05:53:00Moderate *ABN*(12/31/16 12:53 AM)[facility] AND DVXKW0036-03-92 05:53:00Amber *ABN*(12/31/16 12:53 AM)[facility] AND DOPJH5281-82-16 05:53:00Positive *ABN*(12/31/16 12:53 AM)[facility] AND KLUUF5907-42-79 05:53:002.0[facility] URINE AND OKOHE1046-80-07 05:53:00Trace *ABN*(12/31/16 12:53 AM)[facility] URINE AND FHKOC8471-05-98 05:53:00Cloudy *ABN*(12/31/16 12:53 AM)[facility] URINE AND HWBCU8629-67-76 05:53:00* Test Item Value Reference Range Interpretation Comments UA Spec Grav (test code = UA Spec Grav) 1.025 1 [facility] AND TBEDB5499-05-68 05:53:00* Test Item Value Reference Range Interpretation Comments UA pH (test code = UA pH) 6.5 1 5.0-8.0 [facility] AND BSTKG9473-84-75 05:53:00Negative (12/31/16 12:53 AM) [facility]annCHEM VYDHY8979-03-79 20:32:85749Vvaufxqq HermannCHEM PANEL 2016-12-25 20:32:0096[facility] HermannCHEM OYGEH3730-27-98 20:32:003.9[facility] HermannCHEM IKASJ0337-26-75 20:32:0025[facility] HermannCHEM BEVSA2448-19-08 20:32:000.9[facility] HermannCHEM PYEZJ4389-60-53 20:32:0016[facility] HermannCHEM SDJDT6700-54-86 20:32:0094[facility] HermannCHEM WBIFU4868-90-44 20:32:000.82 [facility]annCHEM XXSVH6090-32-78 20:32:0012[facility] HermannCHEM PANEL 2016-12-25 20:32:63335Orgclulb HermannCHEM PMFWI7568-17-73 20:32:18234Pyorcuzx HermannCHEM JWFEQ2646-19-51 20:32:003.8[facility] HermannCHEM FMUBE8510-75-00 20:32:007.9[facility] HermannCHEM WPRMI2359-32-57 20:32:008.8[facility] HermannCHEM MFMFH6545-57-27 20:32:0024[facility] HermannCHEM BUPAR2722-57-29 20:32:0082 [facility]annCHEM EBRUU6219-08-79 20:32:0013.8[facility] HermannCHEM PANEL 2016-12-25 20:32:0015[facility] HermannCHEM TEFVL3649-08-69 20:32:001.0[facility] HermannCHEM MZUXN0683-14-66 20:32:004.0[facility] CzddasiFHOKLECBEV3103-71-13 20:32:00* Test Item Value Reference Range Interpretation Comments PTT (test code = PTT) 32.0 s 22.9-35.8 [facility] FttsdxaCLKGARCIAZ1783-43-85 20:32:001.10[facility] HermannHEMATOLOGY 2016-12-25 20:32:00* Test Item Value Reference Range Interpretation Comments PT (test code = PT) 14.4 s 12.0-14.7 [facility] CcayaxwCZGGZMVMBW0546-58-21 20:32:0015.1[facility] HermannHEMATOLOGY 2016-12-25 20:32:0045.6[facility] RsqosmaUDKPSSCEBA3000-89-39 20:32:0089.9[facility] EvnbqysQKWEHTCXGT9630-25-41 20:32:00* Test Item Value Reference Range Interpretation Comments MCH (test code = MCH) 29.8 pg 27.0-31.0 [facility] ImsoldqYQLWSAQRRK7897-10-71 20:32:0010.7[facility] HermannHEMATOLOGY 2016-12-25 20:32:005.08[facility] KmbknfmXCDNIMOESB3308-58-52 20:32:0033.2[facility] YkovvedJFSRFPMQKC7540-28-29 20:32:0012.7[facility] VpqeolpRZNMZXVHTF3430-51-68 20:32:009.3[facility] HonmprrLWWRVDCQNK3205-92-39 20:32:49710Updgqphp [place] DZANKFNCGR2451-53-82 20:32:001.9[facility] KczsormNNULXGXHFG6241-57-91 20:32:000.7 [facility] UkusnheURVRGVNHHH2463-84-55 20:32:006.7[facility] HermannHEMATOLOGY 2016-12-25 20:32:002.5[facility] ZgotksvTLNYKOSCHV0373-84-46 20:32:000.7[facility] ShjxeygGATBMYPZDL1516-13-64 20:32:007.2[facility] ZxobahpQACYNEDTRB8815-47-10 20:32:000.2[facility] BgryomsFWQHSOAXSI0050-70-40 20:32:000.1[facility] TKHKUORDFR1210-12-45 20:32:0067.6[facility] KivngarPNWBUBZFBO8209-25-86 20:32:00 23.1[facility] HermannCHEM YVMVZ8259-19-19 01:59:91247Ttkxxdim HermannCHEM PANEL 2016-07-20 01:59:001.0[facility] HermannCHEM YWNCY3398-50-63 01:59:003.9[facility] HermannCHEM XQAHA0831-83-92 01:59:0010[facility] HermannCHEM JHINA9845-94-15 01:59:0013.0[facility] HermannCHEM TBKCE9800-74-17 01:59:0018[facility] HermannCHEM FRZFX9035-02-38 01:59:0024[facility] HermannCHEM EAVZN0005-25-62 01:59:46922 [facility]annCHEM RCLYL7430-55-57 01:59:003.9[facility] HermannCHEM PANEL 2016-07-20 01:59:007.8[facility] HermannCHEM TZXNI7081-30-78 01:59:008.7[facility] HermannCHEM LNCBZ1533-62-03 01:59:000.3[facility] HermannCHEM ILQBE6834-67-86 01:59:0079[facility] HermannCHEM RAHNW4086-75-04 01:59:000.70[facility] HermannCHEM LHWAH8465-63-65 01:59:007[facility] HermannCHEM SDJVG5179-26-19 01:59:0028[facility]annCHEM YTTSX8135-13-57 01:59:59053Cbfqddzy HermannCHEM EDDKV0558-23-92 01:59:004.0[facility] HermannCHEM GKFGE2712-77-84 01:59:74737Dfrnrrwy HermannCHEM FPCJN0584-18-21 01:59:0084[facility] PenrrxgFAIJBLIAXW2410-17-96 01:59:0012.6 [facility] TwcmmdvTWYKPFCSPJ1164-42-50 01:59:64680Mzdvqswj HermannHEMATOLOGY 2016-07-20 01:59:0015.3[facility] FzndqtjNTELURQUQJ0422-26-01 01:59:005.08[facility] CtnsqchPWYQRYWBXQ6727-41-49 01:59:0010.8[facility] BzshrqnKOXMRBMZXX3521-35-86 01:59:008.9[facility] DruhxuxAFEKGUYUXE4593-14-59 01:59:0088.5[facility] PRHEXDXCTG5363-71-79 01:59:0044.9[facility] PbdtgmfOTRJPHNKJY6556-28-54 01:59:00* Test Item Value Reference Range Interpretation Comments MCH (test code = MCH) 30.1 pg 27.0-31.0 [facility] PbnnwmvOXFPJKVPHE7585-76-40 01:59:0034.0[facility] HermannHEMATOLOGY 2016-07-20 01:59:000.6[facility] DqlfxaiNYDCGRPQYH2510-63-87 01:59:000.1[facility] WzzlgwkREQIIQYYHU4714-28-96 01:59:002.6[facility] CezdqwxXDHHCTLROK1394-61-16 01:59:000.5[facility] YhwiydbSILYIFRDKY5700-72-53 01:59:007.0[facility] TCNMZULAQZ9398-62-27 01:59:005.6[facility] WfgmpdfQAYMYDMNFK5469-23-72 01:59:000.9 [facility] CtreuqaARJCLUQSGH3453-98-02 01:59:004.6[facility] HermannHEMATOLOGY 2016-07-20 01:59:0065.0[facility] MsfjonkEXDWCTEDIT4931-91-52 01:59:0023.9[facility]annURINE AND FZLMV9109-74-80 01:59:008.0[facility]annURINE AND STOOL 2016-07-20 01:59:00Clear (07/19/16 7:59 PM)[facility] AND STOOL 2016-07-20 01:59:001.005[facility]annURINE AND XLHYQ1451-85-15 01:59:00 Negative (07/19/16 7:59 PM)[facility] AND QNSMS5763-73-32 01:59:00 Small *ABN*(07/19/16 7:59 PM)[facility] RABWD8490-89-20 01:59:00 Negative (07/19/16 7:59 PM)[facility] FBJKJ8855-71-05 01:59:00 Negative *NA*(07/19/16 7:59 PM)[facility] THSTE1146-91-43 01:59:00 <1[facility] BDAIY0666-98-16 01:59:001[facility] CHEM 2016-07-20 01:59:00Negative (07/19/16 7:59 PM)[facility]annCHEM PANEL 2016-04-14 06:13:000.66[facility]annCHEM VPQNU4475-79-80 06:13:003.7[facility]annCHEM OGHZE7250-22-33 06:13:63201[place] HermannCHEM RAQTC5703-51-41 06:13:0087[facility]annCHEM MOTRO3929-98-78 06:13:0013[facility]annCHEM PCUFY6518-60-85 06:13:52710Laurwexb HermannCHEM PNWNO5224-66-98 06:13:0022 [facility]CHE[facility] JJWGE0299-15-62 06:13:003.8[facility]annCHEM PANEL 2016-04-14 06:13:0026[facility]annCHEM OYXSJ0845-49-49 06:13:47800Axgirmsk HermannCHEM ABYAJ3880-49-22 06:13:000.3[facility]annCHEM XWKLN7468-16-40 06:13:0072[facility]annCHEM ESMCM8541-95-73 06:13:0013[facility]annCHEM XDQOJ9206-14-28 06:13:007.4[facility]annCHEM XGRYK7727-97-45 06:13:008.3 [facility]CHE[facility] AQCLF2109-67-55 06:13:003.6[facility]annCHEM PANEL 2016-04-14 06:13:001.1[facility]annCHEM BZXFC2383-97-65 06:13:0020[facility]annCHE[facility] JBYXL3639-55-39 06:13:008.7[facility]annCHEM MMHKU9761-60-74 06:13:15312Opdvcgrk [facility]annCHEM ITRNJ4366-16-99 06:13:0045[facility] QVDXLQXMMW7416-63-56 06:13:00* Test Item Value Reference Range Interpretation Comments MCH (test code = MCH) 29.2 pg 27.0-31.0 [facility] ZkiwhbhSRKWAIOEGE0008-05-19 06:13:0087.0[facility]annHEMATOLOGY 2016-04-14 06:13:0040.7[facility] GwpiumpIUWPHFKPZJ5449-78-29 06:13:0013.6[facility] SrbgiseYPOPAGBVBI5721-22-47 06:13:004.67[facility] BedeudkOREYBBSTYU5864-32-74 06:13:008.6[facility] WxkjsqkQPPOWHJBZU2035-65-15 06:13:27104Ybgtuhys Charles ZNRPLUFHBJ8261-91-66 06:13:0033.6[facility] WegmcvePUCDOHPILB8386-85-51 06:13:00 13.0[facility] BygnlvqFANTJEDBCL1464-86-92 06:13:0011.2[facility]annHEMATOLOGY 2016-04-14 06:13:000.9[facility] HkbnjqjCNQESVATXT0456-65-02 06:13:003.3[facility] NidvtuuKLDVACWIHI8735-63-66 06:13:006.3[facility] RqtztdqNLDQONYTPP0112-41-74 06:13:000.8[facility] DoprdmuATVEDQTAFZ0083-38-11 06:13:005.9[facility] TQRMZJXUZD2147-98-91 06:13:008.2[facility] CdwsfieHNFCLXZJQY5173-18-39 06:13:00 29.1[facility] KohcnizLXQKSPDFJO3959-74-86 06:13:0056.0[facility]annHEMATOLOGY 2016-04-14 06:13:000.1[facility] PxeklydMAILIIQCCN1290-08-61 06:13:000.7[facility] QFAGK2202-45-47 06:13:00Large *ABN*(04/14/16 1:13 AM)[facility] SQVKS7008-78-18 06:13:00Negative *NA*(04/14/16 1:13 AM)[facility] CIBNS1226-94-54 06:13:005.0[facility] STOOL 2016-04-14 06:13:001.020[facility] IYPNE6300-54-27 06:13:00Slight *ABN*(04/14/16 1:13 AM)[facility] YFQFX2160-71-95 06:13:00 Negative (04/14/16 1:13 AM)[facility] LQJTT1780-67-20 06:13:007 [facility] TCIIL2069-57-25 06:13:003[facility] OQYPK1249-68-13 06:13:00Trace *ABN*(04/14/16 1:13 AM)[facility] UVOMG1554-30-42 06:13:00Yellow *NA*(04/14/16 1:13 AM)[facility] CHEM 2016-04-14 06:13:00Negative (04/14/16 1:13 AM)[facility] STOOL 2016-02-24 05:51:007[facility] WHVUT4499-11-53 05:51:00Negative *NA*(02/24/16 12:51 AM)[facility] UQABF1356-37-27 05:51:00Trace *ABN*(02/24/16 12:51 AM)[facility] KGFHF9277-79-37 05:51:002.0 [facility] WIBAJ0380-89-82 05:51:00Negative (02/24/16 12:51 AM) [facility] BBFOG1322-64-62 05:51:00Small *ABN*(02/24/16 12:51 AM) [facility] FURTQ9726-11-14 05:51:008[facility] MMAWY7900-70-52 05:51:00Clear (02/24/16 12:51 AM)[facility] STOOL 2016-02-24 05:51:001.027[facility] BDPUC8284-89-46 05:51:007.0 [facility] CSLA4571-34-19 05:51:00Negative (02/24/16 12:51 AM)[facility]annCHEM WRSWF8902-92-07 04:28:0081[facility]annCHE[facility] YJQCJ3996-92-56 04:28:0032[facility]annCHE[facility] ENNHR3180-22-50 04:28:0024[facility]annCHE[facility] EADOX6219-54-29 04:28:85805Lejgdvap HermannCHEM LHEVG8909-21-49 04:28:000.6 [facility] RKBAU5046-23-70 04:28:000.74[facility]annCHEM PANEL 2016-02-24 04:28:0010[facility]annCHE[facility] RPBYN4150-19-94 04:28:0087[facility]CHE[facility] HNKZG1048-20-59 04:28:00See Note 1(02/23/16 11:28 PM)[facility] CHEM RKQIK9530-05-95 04:28:01835Djvgkgxf HermannCHEM AUTHV1454-60-71 04:28:008.8 [facility]CHE[facility] CVVSW2089-28-05 04:28:0026[facility]annCHEM PANEL 2016-02-24 04:28:83071Vfkqzwlr HermannCHEM SHLVG4446-83-09 04:28:0014[facility]annCHE[facility] QMFWV9790-45-63 04:28:008.0[facility]annCHE[facility] RLHSF8609-04-23 04:28:000.9[facility]annCHE[facility] SMAXC5230-37-40 04:28:004.2[facility]annCHEM HLHGQ3469-04-27 04:28:003.8[facility]annCHEM JUAFR2329-27-21 04:28:82019 [facility]annCHE[facility] RSEFR4991-67-49 04:28:0045[facility]annHEMATOLOGY 2016-02-24 04:28:0044.3[facility] YzrmuiiFZPVTYXXWX6076-97-58 04:28:0014.4[facility] HcpedadRLXITHNSUM2588-89-82 04:28:004.96[facility] RotzafmCXQESHEIJC7666-57-86 04:28:0012.3[facility] VevkmvkLOBQPPTUXI2233-69-67 04:28:0089.3[facility] GJDDBCVYKI5172-43-34 04:28:21607Sitnwdkj WvzmjrxDLCKNMWTND5093-38-20 04:28:00 13.1[facility] GxlfbuuHVPWJVYAWJ0730-93-84 04:28:0032.4[facility]annHEMATOLOGY 2016-02-24 04:28:00* Test Item Value Reference Range Interpretation Comments MCH (test code = MCH) 29.0 pg 27.0-31.0 [facility] DndbysrKYZBNHVHTE8387-07-33 04:28:008.7[facility]annHEMATOLOGY 2016-02-24 04:28:0062.1[facility] SvcpjplWDVDRPRFJO1339-63-86 04:28:000.8[facility] SokocqkJUOIXDAUZP2110-98-55 04:28:004.6[facility] LmeihmhGQIWRIOQXZ1373-55-84 04:28:007.6[facility] AewfntzFBPMCATJQC8725-97-82 04:28:0024.9[facility] QUQPDUZKQJ9024-18-69 04:28:007.7[facility] StizuouPGWHPAVCLH8438-34-96 04:28:000.6 [facility] AasgzmaKCDIKFGKBS8637-39-69 04:28:003.1[facility]annHEMATOLOGY 2016-02-24 04:28:000.1[facility] AyetgqhVEEFMREUNE3451-98-71 04:28:000.9[facility]annCHEM JCPDY3530-70-91 02:50:98443Ddloaztr HermannCHEM GNWLP3215-12-72 02:50:004.1[facility]annCHEM GHCNS9662-66-81 02:50:000.9[facility]annCHEM IGKWB6592-74-60 02:50:0011.0[facility]annCHEM ZIMFV2229-33-24 02:50:0011 [facility]annCHE[facility] DXZYT9174-61-78 02:50:90015Brsftdgp HermannCHEM PANEL 2016-01-17 02:50:007.9[facility]annCHEM FIQPT0291-96-61 02:50:0016[facility]annCHEM NVUHQ7849-64-12 02:50:000.4[facility]annCHEM XHWNQ5355-35-06 02:50:004.0[facility]annCHEM AGRBH2664-86-20 02:50:0027[facility]annCHEM PBICY0233-45-36 02:50:66149Ufzqlltz HermannCHEM NUWZH0733-48-35 02:50:008.5 [facility]annCHE[facility] UQEDO0974-02-16 02:50:79777Uaehoxoz HermannCHEM PANEL 2016-01-17 02:50:0084[facility]annCHEM ACYGB6533-43-54 02:50:0088[facility]annCHEM BRUOJ4348-56-44 02:50:000.66[facility]annCHEM EXEGB8158-89-81 02:50:007[facility]annCHEM XNURR2376-02-80 02:50:003.8[facility]annCHEM PYSMM1610-66-16 02:50:0027[facility] ReeyblfDDPSZEFXRF9022-14-48 02:50:006.4 [facility] BdcciqdOAECBHTDIX4410-65-00 02:50:002.4[facility]annHEMATOLOGY 2016-01-17 02:50:000.6[facility] OaqylyaCYKXJILRFF6698-89-62 02:50:000.4[facility] OshuwjcQXWFXGXNAY5697-83-00 02:50:000.1[facility] TfbfyiuQLWFHQUNCD1199-34-70 02:50:006.3[facility] RmpnrpnRJEWXERMRD0633-89-11 02:50:004.5[facility] FHCZTVVHVH9477-88-09 02:50:000.9[facility] RrddplcWGRLUGNNAX4141-44-92 02:50:00 24.2[facility] LtxjswnDUMBYAMRYA9064-13-11 02:50:0064.1[facility]annHEMATOLOGY 2016-01-17 02:50:008.4[facility] VsxjyafSNRIMGHUVA4349-96-75 02:50:0089.2[facility] ZyypqycKBPQBKDLDQ8038-49-40 02:50:00* Test Item Value Reference Range Interpretation Comments MCH (test code = MCH) 29.7 pg 27.0-31.0 [facility] XfvgxfnXAALGWWAST3389-01-99 02:50:0033.3[facility]annHEMATOLOGY 2016-01-17 02:50:0013.2[facility] XkfexwsIYHLOYFIPB3916-35-16 02:50:0014.9[facility] WqampeoTNCAFZSBQI4333-68-05 02:50:0044.7[facility] AflatufMRCAFMMSOM0995-69-67 02:50:005.01[facility] HdptzaxQYVUFQSFBS0903-52-85 02:50:97557Stksgmge [facility] WOSDBADRDA8229-46-74 02:50:0010.0[facility] MCQCR1916-38-98 02:15:00Negative (01/16/16 9:15 PM)[facility] OWFMM2372-30-82 02:15:00Negative (01/16/16 9:15 PM)[facility] VZOOM1722-55-43 02:15:00* Test Item Value Reference Range Interpretation Comments UA Spec Grav (test code = UA Spec Grav) 1.015 1 [facility] PSQGP5749-49-03 02:15:00* Test Item Value Reference Range Interpretation Comments UA pH (test code = UA pH) 7.5 1 5.0-8.0 [facility] GTSFQ2196-29-08 02:15:00Negative (01/16/16 9:15 PM) [facility] QXLWC5026-01-08 02:15:00Clear (01/16/16 9:15 PM)[facility] UCDWI8086-92-45 02:15:00Yellow *NA*(01/16/16 9:15 PM)[facility] VOOSI6788-13-27 02:15:000.2[facility] STOOL 2016-01-17 02:15:00Negative (01/16/16 9:15 PM)[facility] STOOL 2016-01-17 02:15:00Large *ABN*(01/16/16 9:15 PM)[facility] STOOL 2016-01-17 02:15:00Negative *NA*(01/16/16 9:15 PM)[facility] STOOL 2016-01-17 02:15:00Negative *NA*(01/16/16 9:15 PM)[facility] CHEM 2016-01-17 02:15:00Negative (01/16/16 9:15 PM)[facility] STOOL 2015-10-13 09:42:00Slight *ABN*(10/13/15 3:42 AM)[facility] STOOL 2015-10-13 09:42:001.026[facility] KPYXM6712-06-44 09:42:006.0 [facility] OZRJT5118-05-54 09:42:007[facility] CRPUL7975-68-44 09:42:006[facility] CKCBR1356-87-15 09:42:00 Negative (10/13/15 3:42 AM)[facility] CQPUC5375-94-47 09:42:00 Negative (10/13/15 3:42 AM)[facility] INUEO5963-12-66 09:42:00 Large *ABN*(10/13/15 3:42 AM)[facility] PWKQE9276-96-86 09:42:00 Negative *NA*(10/13/15 3:42 AM)[facility] QDRR4566-69-07 09:42:00 Negative (10/13/15 3:42 AM)[facility]annCHEM DJAKZ6218-09-70 08:33:003.9 [facility]annCHE[facility] LQGZE4449-96-27 08:33:001.0[facility]annCHEM PANEL 2015-10-13 08:33:0013[facility]annCHEM TWDTO3582-40-23 08:33:009.5[facility]annCHEM LSLAA0953-49-76 08:33:56573Lowkfcjs HermannCHEM FAICN7506-98-81 08:33:000.7[facility]annCHEM MSIGQ1574-64-24 08:33:0079[facility]annCHEM UQDLE4739-26-25 08:33:0023[facility]annCHEM FHYYH8096-57-56 08:33:0035 [facility]annCHE[facility] YOSKX3837-33-42 08:33:003.8[facility]annCHEM PANEL 2015-10-13 08:33:007.7[facility]annCHEM QVBKA7494-08-42 08:33:008.8[facility]annCHEM AJHWD5809-72-12 08:33:0028[facility]annCHEM BFCNJ7000-61-15 08:33:49461Jiidqpbc HermannCHEM XIDNH1655-94-76 08:33:003.5[facility]annCHEM KMFHM8245-76-78 08:33:000.70[facility]annCHEM WZDLR7745-90-98 08:33:009 [facility]annCHE[facility] DUBFQ1556-36-23 08:33:0094[facility]annCHEM PANEL 2015-10-13 08:33:67398Hxxnbqev HermannCHEM ZIPLL5104-40-83 08:33:0050[facility]annCHEM DUYDN8039-62-69 08:33:56115Gqstgghz IghmfkpUMPVKKBLSN7526-14-05 08:33:44101Cxsuinci KpdnkmkUPVFGSUZYR0123-83-21 08:33:009.7[facility] EBHTXUFYRI6835-19-78 08:33:0033.4[facility] FkqgufpGEJWJKNASP1429-14-50 08:33:00 12.5[facility] FfonhaqSJPFPYASRA4397-54-23 08:33:009.9[facility]annHEMATOLOGY 2015-10-13 08:33:005.04[facility] XeqturwKDKCEQAJSN3863-86-22 08:33:0015.1[facility] TmildmeZIRTZMNKEQ6752-07-11 08:33:00* Test Item Value Reference Range Interpretation Comments MCH (test code = MCH) 29.9 pg 27.0-31.0 [facility] BkcptebFNMJKWUSDP5634-67-36 08:33:0045.2[facility]annHEMATOLOGY 2015-10-13 08:33:0089.7[facility] ZlhjngtYEYBCGOJIR0121-34-90 08:33:000.6[facility] PbfgvbnPTQOOJIBYM8880-46-06 08:33:000.1[facility] PanjtknRRIVHLBRWM1633-43-87 08:33:003.2[facility] XmgjowdBZKMAIPRXT0987-96-79 08:33:000.8[facility] UGAVUIAUTQ2694-52-78 08:33:005.1[facility] KrjaqqoKZMZLVOFLX7622-25-69 08:33:001.0 [facility] AaauhkoCQFVFRUWTB4569-24-72 08:33:008.5[facility]annHEMATOLOGY 2015-10-13 08:33:006.2[facility] NrvltwpGSDMHLRZRW8945-80-91 08:33:0051.7[facility] NhuuikrULDDEURMTY0511-27-68 08:33:0032.6[facility] YbnbzbxSBOOPUKMJUGG8362-64-08 08:31:003.6[facility] HermannCHEM AETYQ9291-08-05 07:16:71978Waabimft HermannCHEM MMAGP3960-04-06 07:16:0057[facility]annCHEM AYOHL8959-56-26 07:16:0034 [facility]annCHE[facility] MRGSG8421-74-90 07:16:000.8[facility]annCHEM PANEL 2015-07-04 07:16:004.2[facility]annCHEM VMQLJ3973-34-64 07:16:000.7[facility]annCHEM VFHNT6788-89-60 07:16:0080[facility]annCHEM KPIYX2803-64-39 07:16:58351Ilwvvhml HermannCHEM PTTQJ8721-91-83 07:16:33209Oipiuehl HermannCHEM YVARX3646-13-55 07:16:00See Note 1(07/04/15 1:16 AM)[facility]annCHEM PANEL 2015-07-04 07:16:0011[facility]annCHEM YNEZH4550-85-50 07:16:000.74[facility]annCHEM MPOFW7341-48-76 07:16:0085[facility]annCHEM TPXDD6057-72-88 07:16:007.7[facility]annCHEM WPNLX3918-88-79 07:16:003.5[facility]annCHEM YZARB3400-65-51 07:16:0015[facility]annCHEM HAYOQ1347-86-85 07:16:008.7 [facility]annCHE[facility] YJFEF3797-41-91 07:16:0024[facility]annCHEM PANEL 2015-07-04 07:16:89288Fwpufdol YgonafyTZFFESGDMX9796-22-02 07:16:000.1[facility] NceujfdVCPGRJBUIE2088-73-60 07:16:000.7[facility] VkzbucnCQLIVEIYZG1099-15-67 07:16:002.7[facility] EukoquqEDDUEQSZYL7347-27-19 07:16:007.5[facility] HGUSOLEMJL3406-98-21 07:16:001.0[facility] FcuhpzhKIWCQAAOVW1055-93-95 07:16:005.5 [facility] ImitmtlODSTIGNJUR0067-02-75 07:16:001.0[facility]annHEMATOLOGY 2015-07-04 07:16:008.3[facility] NpnucchKPDVITKDRU9141-23-61 07:16:0022.4[facility] PbbylywXBGNGNRPNE1533-05-76 07:16:0062.8[facility] HvvqxbrSDGIZQSJDS5620-10-25 07:16:00* Test Item Value Reference Range Interpretation Comments MCH (test code = MCH) 29.5 pg 27.0-31.0 [facility] MmggzvzERLTLNXRBR4998-92-71 07:16:009.4[facility]annHEMATOLOGY 2015-07-04 07:16:40056Ptjfznhv ZprgvliKEMJHSRQAS6861-80-91 07:16:0012.7[facility] GxukkckPNHASXCLFA2488-52-76 07:16:0032.5[facility] MzdzlldEBCOQOTEZX4318-20-74 07:16:0090.7[facility] FycdthdAHFJUVAQUH8418-62-14 07:16:0043.1[facility] ZHNVMHZPET2560-54-50 07:16:0014.0[facility] RkygxypCIBNCJOGXO4239-45-08 07:16:00 4.76[facility] RjhrsysLOGIRKUKZO1497-22-05 07:16:0012.0[facility] JQVZC4973-85-02 07:16:001[facility] YYXZX2012-65-82 07:16:00 Negative (07/04/15 1:16 AM)[facility] IXUAZ5214-01-65 07:16:00 Small *ABN*(07/04/15 1:16 AM)[facility] HQUQG0699-73-29 07:16:00 Negative (07/04/15 1:16 AM)[facility] UXQYL8746-86-20 07:16:004 [facility] IZRFC3211-03-79 07:16:007.0[facility] CSCJV5151-47-75 07:16:00Negative *NA*(07/04/15 1:16 AM)[facility] BLMOD8201-54-63 07:16:00Yellow *NA*(07/04/15 1:16 AM)[facility] AYVAM0125-92-92 07:16:001.027[facility] YEOEB6806 07:16:00 Marked *ABN*(07/04/15 1:16 AM)[facility] JDZX7999-53-30 07:16:00 Negative (07/04/15 1:16 AM)[facility] GPJAD9791-47-24 07:36:002 [facility] MSIWM7642-79-70 07:36:00Negative (05/17/15 2:36 AM) [facility] BAKEB4280-50-77 07:36:00<1[facility] OLMHW2302-77-45 07:36:00Negative (05/17/15 2:36 AM)[facility] BUULL5280-41-42 07:36:00Small *ABN*(05/17/15 2:36 AM)[facility] NILUJ1254-64-97 07:36:00Negative *NA*(05/17/15 2:36 AM)[facility] DCEFP3985-84-78 07:36:00Yellow *NA*(05/17/15 2:36 AM)[facility] UFTLN8719-64-71 07:36:00Clear (05/17/15 2:36 AM)[facility] STOOL 2015-05-17 07:36:001.016[facility] TYDHL6292-84-06 07:36:006.0 [facility] XMEL4860-03-99 07:36:00Negative (05/17/15 2:36 AM)[facility] HermannMOLECULAR USBMUEHSVI1326-98-58 12:19:00Negative *NA*(05/15/15 7:19 AM) [facility]annMOLECULAR PAOMPSISMK5533-72-14 12:19:00Endocervix *NA*(05/15/15 7:19 AM)[facility]annMOLECULAR GUDYCSTHHV6366-38-03 12:19:00Endocervix *NA*(05/15/15 7:19 AM)[facility]annMOLECULAR NVIWJGIPSP3520-85-72 12:19:00 Negative *NA*(05/15/15 7:19 AM)[facility]annCHEM UCROC2588-97-99 07:57:003.5 [facility]annCHEM UOBCI6051-36-61 07:57:001.1[facility]annCHEM PANEL 2015-05-15 07:57:009[facility]annCHEM EWOBK7623-52-22 07:57:0011.4[facility]annCHEM PSIMK8012-75-70 07:57:007[facility]annCHEM YCPXZ7690-94-81 07:57:0087[facility]annCHEM ORGIU9874-51-53 07:57:007.3[facility]annCHEM UUORG7947-91-71 07:57:0032[facility]annCHEM GNTSD1844-50-14 07:57:0024 [facility]annCHE[facility] JTWQW2563-76-32 07:57:003.8[facility]annCHEM PANEL 2015-05-15 07:57:0087[facility]annCHEM ASFQE3529-31-08 07:57:0016[facility]annCHEM HCCMN5902-02-06 07:57:000.7[facility]annCHEM UJMQQ5991-85-75 07:57:13507Fiyevxcc HermannCHEM OOHZG6342-97-44 07:57:93611Nfouacmb [facility]annCHEM WJDKF6125-32-08 07:57:003.4[facility]annCHEM WQDGN7081-67-82 07:57:008.6 [facility]annCHE[facility] HHNKM2563-65-75 07:57:32992Cvmwtkzz HermannCHEM PANEL 2015-05-15 07:57:000.8[facility] VqesrhiJFBNDGPUGO3829-59-96 07:57:93326Kiyidwbq ZgzbthfJPDAOEYCNK9446-49-72 07:57:0013.1[facility] IlqskhtJUAYHUBDUB6650-17-64 07:57:008.9[facility] XtrarzkULSJIKYZIO2261-91-94 07:57:0013.5[facility] TZNUXJOWJN6895-84-96 07:57:0014.1[facility] XxrrdosPJRDYBBNJT8292-54-46 07:57:00 4.85[facility] YanzobcTMQJRTQYFL9156-86-03 07:57:0044.3[facility]annHEMATOLOGY 2015-05-15 07:57:0091.4[facility] BjajdilRRPJYTSYFR9911-06-13 07:57:00* Test Item Value Reference Range Interpretation Comments MCH (test code = MCH) 29.1 pg 27.0-31.0 [facility] PgovrtyNSODSCBYXX7549-97-39 07:57:0031.9[facility]annHEMATOLOGY 2015-05-15 07:57:0061.6[facility] UxhteesPMUJIKKUOV5831-05-24 07:57:003.3[facility] DlfvxfoWLWTNUUGUR4640-35-48 07:57:000.7[facility] HbefvrnKLAOWITNVR2199-88-67 07:57:001.0[facility] CvliqbsAKOAVQCVVR9869-60-30 07:57:000.2[facility] BECXKRNNEN8177-17-61 07:57:007.1[facility] VrdqbwzDMFVRWUGHU5554-71-16 07:57:00 24.6[facility] JgygdlbQMKTQTEPWJ3592-47-34 07:57:008.3[facility] HermannHEMATOLOGY 2015-05-15 07:57:001.2[facility] IukdogzTDOXCIQCQY0612-75-42 07:57:005.5[facility] GWHBD8562-18-60 07:57:001[facility] STOOL 2015-05-15 07:57:002[facility] XUOSR8096-29-79 07:57:00Moderate *ABN*(05/15/15 2:57 AM)[facility] VMNQA2320-42-71 07:57:00Negative *NA*(05/15/15 2:57 AM)[facility] ASUQC4327-61-80 07:57:006.0 [facility] KZKCJ0669-52-01 07:57:00Negative (05/15/15 2:57 AM) [facility] NOUTU4199-38-20 07:57:004.0[facility] ODDAF3281-03-80 07:57:00Negative (05/15/15 2:57 AM)[facility] FUYQL1517-99-62 07:57:001.024[facility] DBRWG5989-78-83 07:57:00 Clear (05/15/15 2:57 AM)[facility] TVKKI5640-10-15 07:57:00Yellow *NA*(05/15/15 2:57 AM)[facility] DKFQ2666-79-24 07:57:00Negative (05/15/15 2:57 AM)[facility] TUWFN5292-59-63 08:34:00Negative (02/14/15 3:34 AM)[facility] WSBLM6601-07-82 08:34:00Large *ABN*(02/14/15 3:34 AM)[facility] GQXDJ5769-81-49 08:34:00Small *ABN*(02/14/15 3:34 AM)[facility] CSBIV0651-68-82 08:34:00Trace *ABN*(02/14/15 3:34 AM)[facility] BHXAD8943-03-93 08:34:00Negative (02/14/15 3:34 AM)[facility] YAPXA7988-22-25 08:34:000.2[facility] MGFMV5922-65-08 08:34:00Negative (02/14/15 3:34 AM)[facility] JIKNS1682-70-38 08:34:00* Test Item Value Reference Range Interpretation Comments UA pH (test code = UA pH) 6.0 1 5.0-8.0 [facility] SYSBC7294-47-87 08:34:00* Test Item Value Reference Range Interpretation Comments UA Spec Grav (test code = UA Spec Grav) 1.025 1 [facility] METQU7024-90-98 08:34:00Slight Cloudy (02/14/15 3:34 AM) [facility] YJOLA0890-85-03 08:34:00Yellow *NA*(02/14/15 3:34 AM) [facility] KLHLA8226-60-54 08:34:00None Seen 3(02/14/15 3:34 AM) [facility] VLGA5216-07-06 08:34:00Negative (02/14/15 3:34 AM)[facility]annCHEM XASCK3900-91-08 06:10:000.4[facility] TBBEA1735-93-53 06:10:0065[facility] DHABT2555-89-97 06:10:000.1[facility]CHE[facility] KYTOU3694-08-27 06:10:001.0[facility] JYZNV3502-01-44 06:10:003.8 [facility] LKVGB7583-61-68 06:10:003.9[facility]annCHE[facility] PANEL 2015-02-14 06:10:007.7[facility] HHSHK4933-65-73 06:10:0023[facility] ZAOQE4619-86-42 06:10:0040[facility] CHQTE3994-35-18 06:10:000.5[facility] OXLTA2568-37-32 06:10:0087[facility] UUNSV2654-82-39 06:10:0022[facility] RRDZI0436-20-31 06:10:80714 [facility] WINQN8357-82-54 06:10:000.9[facility]annCHE[facility] PANEL 2015-02-14 06:10:003.5[facility] JFIAA3507-01-06 06:10:0083[facility] WWKTS7699-46-13 06:10:005[facility] EJSKT4018-36-19 06:10:0016.5[facility]annCHE[facility] DULLF8166-92-71 06:10:009.2[facility]annCHE[facility] OHWJA3369-13-28 06:10:09201Rhgoqldo [facility]UR[facility] AND GNQSH5618-94-01 05:56:00 Moderate *ABN*(09/29/14 11:56 PM)[facility] ACFTX3562-01-65 05:56:00Negative *NA*(09/29/14 11:56 PM)[facility] YRYJP7445-22-71 05:56:00Trace *ABN*(09/29/14 11:56 PM)[facility] UWMMM1904-43-48 05:56:00Negative (09/29/14 11:56 PM)[facility] SAVVT1191-69-92 05:56:002[facility] IKYJY1350-65-21 05:56:002[facility] BRXOK5302-81-69 05:56:00Yellow *NA*(09/29/14 11:56 PM)[facility] KSLTX5586-87-76 05:56:006.0[facility] SUINR0857-21-45 05:56:001.020[facility] NIWOJ9372-87-63 05:56:00Marked *ABN*(09/29/14 11:56 PM)[facility] TXCYY9899-93-62 05:55:19016Oabeyubt HermannCHEM YIJNO9215-60-50 05:55:231.9[facility]CHE[facility] WJBHZ4855-44-08 05:55:234.0[facility] SPXBE8743-27-09 05:55:61592Vylpcokx HermannCHEM KCJYN0024-46-30 05:55:233.8[facility]CHE[facility] CSYTS6106-49-38 05:55:2328 [facility] UINWZ4701-59-28 05:55:230.8[facility]annCHE[facility] PANEL 2014-09-30 05:55:239.1[facility]CHE[facility] LKFPO9546-81-68 05:55:2310[facility]CHE[facility] QHYJF6947-26-94 05:55:2389[facility]CHE[facility] VRHLC7202-70-79 05:55:234.1[facility]CHE[facility] NXNFQ0888-63-66 05:55:15114Flabvrlg HermannCHEM DHHIV8063-30-54 05:55:29131Rjamtwhe HermannCHEM VBIKR6708-58-79 05:55:2336 [facility] WIBUA9753-92-03 05:55:2323[facility]annCHE[facility] PANEL 2014-09-30 05:55:230.6[facility]CHE[facility] RAOLK4549-07-78 05:55:238.1[facility]CHE[facility] ZTMRL7523-07-68 05:55:81723Hjvfvuzp HermannCHEM ZAUWN6460-21-41 05:55:2310.1[facility]annCHE[facility] GGFEI0893-64-68 05:55:2312[facility]CHE[facility] UDERI5814-51-27 05:55:230.9[facility]CHE[facility] PPFIS5779-48-49 05:55:234.3 [facility] HDRJL7003-37-28 05:55:2350[facility]annENDOCRINOLOGY 2014-09-30 05:55:23Negative *NA*(09/29/14 11:55 PM)[facility]annHEMATOLOGY 2014-09-30 05:55:2315.3[facility] KokkrgaKNTROPXNWZ8436-02-82 05:55:2344.8[facility] VwyzcsuRCTTRIEGZR6096-08-55 05:55:2313.5[facility] YuuwpreFZEIGIEDFE3540-60-62 05:55:23* Test Item Value Reference Range Interpretation Comments MCH (test code = MCH) 30.0 pg 27.0-31.0 [facility] KszhrjxCCJFQRWGQT9396-97-56 05:55:2334.1[facility]annHEMATOLOGY 2014-09-30 05:55:2312.8[facility] QqfhxubXPAVXFRJJO0142-24-03 05:55:235.10[facility] GgdwsdnREHNEMFNVW5531-83-59 05:55:239.0[facility] KmbszzhSBQZYXFWUQ8654-66-36 05:55:11777Ewsvwvaa UrcnnasMDLWXJQXYE4889-62-81 05:55:2387.9[facility] HBRCVZPOPU4842-01-40 05:55:230.1[facility] PvnkupeLPXRKUXVXR1483-88-48 05:55:231.0 [facility] EginwwqAYPOMESWQI3345-43-04 05:55:230.6[facility]annHEMATOLOGY 2014-09-30 05:55:2362.0[facility] BjgezwjGJYKUCGXQU9024-69-24 05:55:2325.2[facility] ShmfcomARZUORKSVS2216-28-79 05:55:234.7[facility] HxlrkjoCVUVKJQDSU2934-99-46 05:55:231.0[facility] VzglbylRWJMFOHUWB5129-41-38 05:55:238.4[facility] DUXZITRRXA2485-20-27 05:55:233.4[facility] SizbpodPYBNIDYAVE8317-30-31 05:55:237.1 [facility]
[2020-04-17 18:09] LABS: BASOPHILS # (AUTO) 0.1 (0.0-0.1); BASOPHILS % 0.4 % (0.0-1.0); EOSINOPHILS # (AUTO) 0.3 (0.0-0.4); EOSINOPHILS % 1.4 % (0.0-6.0); HEMATOCRIT 38.9 % (34.2-44.1); HEMOGLOBIN 12.7 g/dL (12.0-16.0); LYMPHOCYTES # (AUTO) 1.5 (1.0-3.2); LYMPHOCYTES % 8.2 % (18.0-39.1); MEAN CORPUSCULAR HEMOGLOBIN 28.9 pg (28-32); MEAN CORPUSCULAR HGB CONC 32.6 g/dL (31-35); MEAN CORPUSCULAR VOLUME 88.4 fL (81-99); MONOCYTES # (AUTO) 1.5 (0.2-0.8); MONOCYTES % 8.2 % (4.4-11.3); NEUTROPHILS # (AUTO) 15.1 (2.1-6.9); PLATELET COUNT 277 x10e3/uL (140-360); RED CELL DISTRIBUTION WIDTH 13.1 % (11.7-14.4)
[2020-04-17] MEDS ORDERED: VANCOMYCIN 1GM/NS 250 ML 250 ML IV ONE (18:15)
[2020-04-17 18:22] LABS: ALBUMIN 3.9 g/dL (3.5-5.0)
[2020-04-17 18:29] LABS: ALANINE AMINOTRANSFERASE 28 IU/L (0-55); ALBUMIN/GLOBULIN RATIO 1.1 (0.8-2.0); ALKALINE PHOSPHATASE 76 IU/L (40-150); ANION GAP 17.5 mmol/L (8-16); BLOOD UREA NITROGEN 8 mg/dL (7-26); BUN/CREATININE RATIO 12 (6-25); CALCIUM 8.8 mg/dL (8.4-10.2); CARBON DIOXIDE 21 mmol/L (22-29); CHLORIDE 101 mmol/L (98-107); CREATININE, SERUM 0.69 mg/dL (0.57-1.11); EST GLOMERULAR FILTRATION RATE > 60 ML/MIN (60-); GLUCOSE 92 mg/dL (74-118); POTASSIUM 3.5 mmol/L (3.5-5.1); SODIUM 136 mmol/L (136-145)
[2020-04-17] MEDS ORDERED: MORPHINE SULFATE INJ 4 MG/ML INJ 1ML IV STA (18:59)
--- NOTE | 2020-04-17 19:13 | Emergency Department Note ---
History of Present Illnes History of Present Illness Chief Complaint: General Medicine Complaints History of Present Illness This is a 34 year old female s/p appy gabriela and developed cellulitis and wound infected. per gabriela pt to er and per er md pt to admit. PT STATES FROM UMBILICAL WOUND TO TO LOWER ABD SKIN T URN RED, AT DR MERAZ OFFICE DRAINAGE WAS PRESENT, SENT FOR EVAL AND CT ABD/PELVIS . Historian: Patient Arrival Mode: Car Licensing Services Clerk Required: No Onset (how long ago): day(s) (1) Location: [facility] Quality: REDNESS, DRAINAGE Radiation: Reports non-radiation Severity: moderate Onset quality: gradual Duration (how long): day(s) (1) Timing of current episode: constant Progression: worsening Chronicity: new Context: Reports recent surgery (APPENDECTOMY LAST WEEK) Relieving factors: none Exacerbating factors: none Associated symptoms: Reports denies other symptoms Treatments prior to arrival: none Past Medical/Family History Physician Review I have reviewed the patient's past medical and family history. Any updates have been documented here. Past Medical History Recent Fever: Yes Clinical Suspicion of Infectio: Yes New/Unexplained Change in Ment: No Past Medical History: Anxiety Other Medical History: PCOS HIDRADENITIS SUPPURATIVA ABSCESS ADHD Past Surgical History: Cholecysctectomy Social History Smoking Cessation: Never Smoker Alcohol Use: None Any Illegal Drug Use: No Family History Family history of heart diseas: No Other Last Tetanus: UTD Review of Systems Review of Systems Constitutional: Reports no symptoms EENTM: Reports no symptoms Cardiovascular: Reports no symptoms Respiratory: Reports no symptoms Gastrointestinal: Reports no symptoms Genitourinary: Reports no symptoms Musculoskeletal: Reports no symptoms Integumentary: Reports as per HPI Neurological: Reports no symptoms Psychological: Reports no symptoms Endocrine: Reports no symptoms Hematological/Lymphatic: Reports no symptoms Physical Exam Related Data Allergies: Coded Allergies: Penicillins (Verified Allergy, Severe, 07/29/19) cephalexin (Verified Allergy, Severe, 02/07/18) clindamycin (Verified Allergy, Severe, 06/05/19) sulfamethoxazole (Verified Allergy, Severe, 02/07/18) trimethoprim (Verified Allergy, Severe, 02/07/18) ciprofloxacin (Verified Allergy, Unknown, 04/13/20) Triage Vital Signs Vital Signs Date Time Temp Pulse Resp B/P (MAP) Pulse Ox O2 Delivery O2 Flow Rate FiO2 9/1/20 16:55 99.9 123 16 120/89 100 Room Air Vital signs reviewed: Yes Physical Exam CONSTITUTIONAL Constitutional: Present well-developed, Present well-nourished; Absent distressed HENT HENT: Present normocephalic, Present atraumatic, Present oropharynx clear/moist, Present nose normal HENT L/R: Present left ext ear normal, Present right ext ear normal EYES Eyes: Reports PERRL, Reports conjunctivae normal NECK Neck: Present ROM normal PULMONARY Pulmonary: Present effort normal, Present breath sounds normal CARDIOVASCULAR Cardiovascular: Present regular rhythm, Present heart sounds normal, Present capillary refill normal, Present tachycardia (125) GASTROINTESTINAL Abdominal: Present soft, Present bowel sounds normal, Present tender (BELOW UMBILICUS,), Present other (ERYTHEMA FROM UMBILICUS TO SUPRAPUBIC AREA, CONSITENT WITH CELLULITIS) GENITOURINARY Genitourinary: Present exam deferred SKIN Skin: Present warm, Present dry, Present erythema (UMBILICAL AREA TO SUPRAPUBIC AREA) MUSCULOSKELETAL Musculoskeletal: Present ROM normal NEUROLOGICAL Neurological: Present alert, Present oriented x 3, Present no gross motor or sensory deficits PSYCHOLOGICAL Psychological: Present mood/affect normal, Present judgement normal Results Laboratory Result Diagram: 04/17/20 1800 04/17/20 1800 Laboratory Laboratory Tests Test 04/17/20 18:05 04/17/20 18:00 Lactic Acid Level 0.9 mmol/L (0.5-2.0) White Blood Count 18.59 x10e3/uL (4.8-10.8) Red Blood Count 4.40 x10e6/uL (3.6-5.1) Hemoglobin 12.7 g/dL (12.0-16.0) Hematocrit 38.9 % (34.2-44.1) Mean Corpuscular Volume 88.4 fL (81-99) Mean Corpuscular Hemoglobin 28.9 pg (28-32) Mean Corpuscular Hemoglobin Concent 32.6 g/dL (31-35) Red Cell Distribution Width 13.1 % (11.7-14.4) Platelet Count 277 x10e3/uL (140-360) Neutrophils (%) (Auto) 81.0 % (38.7-80.0) Lymphocytes (%) (Auto) 8.2 % (18.0-39.1) Monocytes (%) (Auto) 8.2 % (4.4-11.3) Eosinophils (%) (Auto) 1.4 % (0.0-6.0) Basophils (%) (Auto) 0.4 % (0.0-1.0) Neutrophils # (Auto) 15.1 (2.1-6.9) Lymphocytes # (Auto) 1.5 (1.0-3.2) Monocytes # (Auto) 1.5 (0.2-0.8) Eosinophils # (Auto) 0.3 (0.0-0.4) Basophils # (Auto) 0.1 (0.0-0.1) Absolute Immature Granulocyte (auto 0.14 x10e3/uL (0-0.1) Sodium Level 136 mmol/L (136-145) Potassium Level 3.5 mmol/L (3.5-5.1) Chloride Level 101 mmol/L (98-107) Carbon Dioxide Level 21 mmol/L (22-29) Anion Gap 17.5 mmol/L (8-16) Blood Urea Nitrogen 8 mg/dL (7-26) Creatinine 0.69 mg/dL (0.57-1.11) Estimat Glomerular Filtration Rate > 60 ML/MIN (60-) BUN/Creatinine Ratio 12 (6-25) Glucose Level 92 mg/dL (74-118) Calcium Level 8.8 mg/dL (8.4-10.2) Total Bilirubin 0.8 mg/dL (0.2-1.2) Aspartate Amino Transf (AST/SGOT) 16 IU/L (5-34) Alanine Aminotransferase (ALT/SGPT) 28 IU/L (0-55) Alkaline Phosphatase 76 IU/L (40-150) Total Protein 7.4 g/dL (6.5-8.1) Albumin 3.9 g/dL (3.5-5.0) Globulin 3.5 g/dL (2.3-3.5) Albumin/Globulin Ratio 1.1 (0.8-2.0) Lab results reviewed: Yes Imaging Imaging results reviewed: Yes Impressions COMPARISON: Multiple prior CT abdomen and pelvis examinations most recent dated 04/12/2020. TECHNIQUE: Abdomen and pelvis were scanned utilizing a multidetector helical scanner from the lung base to the pubic symphysis after administration of IV contrast. Coronal and sagittal reformations were obtained. Routine protocol was performed. Scan was performed when during portal venous phase. IV CONTRAST: 100 mL of Isovue 370 ORAL CONTRAST: None COMPLICATIONS: None RADIATION DOSE: Total DLP: 921.69 mGy*cm Estimated effective dose: (DLP x 0.015 x size factor) mSv CTDIvol has been reviewed. It is below the limits set by the Radiation Protocol Committee (RPC). Dose modulation, iterative reconstruction, and/or weight based adjustment of the mA/kV was utilized to reduce the radiation dose to as low as reasonably achievable. FINDINGS: LINES and TUBES: None. LOWER THORAX: Unremarkable HEPATOBILIARY: No focal hepatic lesions. No biliary ductal dilation. GALLBLADDER: There are cholecystectomy clips. SPLEEN: No splenomegaly. PANCREAS: No focal masses or ductal dilatation. ADRENALS: No adrenal nodules KIDNEYS/URETERS: Kidneys enhance symmetrically. No hydronephrosis. No cystic or solid mass lesions. No stones. GI TRACT: No abnormal distention, wall thickening, or evidence of bowel obstruction. Appendix is normal. PELVIC ORGANS/BLADDER: Unremarkable. LYMPH NODES: No lymphadenopathy. VESSELS: Unremarkable. PERITONEUM / RETROPERITONEUM: No free air or fluid. BONES: There are degenerative changes in the spine. SOFT TISSUES: There is marked interval increase in fat stranding involving the right anterior abdominal wall associated with a small fat-containing umbilical hernia. There is new focus of air seen (series 2, image 67) which could be infectious related or post procedural if there is history of recent procedure. There is also associated increased thickening of the right rectus muscle likely inflammatory. IMPRESSION: Marked interval increase in fat stranding involving the right anterior abdominal wall soft tissues associated with a small fat-containing umbilical hernia compatible with cellulitis. There is associated new focus of air seen which could be infectious related or post procedural if there is history of recent procedure. No definite abscess or drainable collection. Signed by: Tobi Quintanilla MD on 04/17/2020 7:18 PM Dictated By: TOBI QUINTANILLA MD 17 Transcribed By: LILIA on 04/17/201917 COPY TO: DANIELLE REYES MD~ Assessment & Plan Medical Decision Making MDM PT WITH DRAINAGE FROM SURGICAL WOUND AT UMBILICAL AREA AND REDNESS TO ABD WALL FROM THERE TO SUPRA PUBIC AREA CBC, CMP, LACTIC ACID, BLOOD CULTURES, CT ABD/PELVIS ORDERED TO EVAL FOR SEPSIS, LEUKOCYTOSIS, ELECTROLYTE ABNORMALITY, INTRA ABDOMINAL ABSCESS, ABDOMINAL WALL ABSCESS. MORPHINE 4 MG IV ORDERED ZOFRAN 4 MG IV ORDERED 1 LITER NS IV BOLUS ORDERED MEROPENEM 1 GRAM IV ORDERED. PT WITH 18k WBC, LACTIC ACID 0.[address] Sebastian MERAZ, ADMIT PT TO GO TO OR IN AM Assessment & Plan Final Impression: (1) Abdominal wall cellulitis (2) Leukocytosis Depart Disposition: ADMITTED Last Vital Signs Date Time Temp Pulse Resp B/P (MAP) Pulse Ox O2 Delivery O2 Flow Rate FiO2 04/17/20 17:49 125 18 116/81 99 Room Air 04/17/20 16:55 99.9 Home Meds Reported Medications Levofloxacin (LEVAQUIN) 500 Mg Tablet, 500 MG PO DAILY, TAB 04/14/20 Acetaminophen/Codeine* (TYLENOL # 3*) 1 Ea Tab, 1 TAB PO Q4HR PRN for MODERATE PAIN (4-6) 04/14/20 Zolpidem Tartrate (AMBIEN) 10 Mg Tablet, 10 MG PO HS PRN for INSOMNIA, #30 TAB 04/13/20 Amphet Asp/Amphet/D-Amphet (ADDERALL XR 30 MG CAPSULE) 30 Mg Cap.er.24h, 30 MG PO DAILY 04/13/20 Discontinued Scripts Ondansetron (ZOFRAN ODT) 4 Mg Tab.rapdis, 4 MG SL Q6H PRN for Nausea, #14 0 Refills Prov:AMANDA MUHAMMAD MD 02/05/18 Nitrofurantoin Monohyd/M-Cryst (MACROBID 100 MG CAPSULE) 100 Mg Capsule, 100 MG PO BID, #7 Prov:AMANDA MUHAMMAD MD 02/05/18 Medications in the ED Pantoprazole Sodium 40 mg ONCE STAT IV Last administered on 04/17/20at 18:59; Admin Dose 40 MG; Start 04/17/20 at 16:58; Stop 04/17/20 at 17:03; Status DC Ondansetron HCl 4 mg ONCE STAT IV Last administered on 04/17/20at 19:00; Admin Dose 4 MG; Start 04/17/20 at 16:58; Stop 04/17/20 at 17:03; Status DC Sodium Chloride 1,000 ml @ 0 mls/hr Q0M STAT IV Last administered on 04/17/20at 19:00; Admin Dose 999 MLS/HR; Start 04/17/20 at 16:58; Stop 04/17/20 at 17:03; Status DC Vancomycin HCl 250 ml @ 167 mls/hr ONCE ONCE IV ; Start 04/17/20 at 18:15; Stop 04/17/20 at 19:44 Meropenem 100 ml @ 100 mls/hr NOW ONCE IV ; Start 04/17/20 at 17:30; Stop 04/17/20 at 18:29; Status DC Sodium Chloride 50 ml @ ud STK-MED ONCE .ROUTE ; Start 04/17/20 at 17:38; Stop 04/17/20 at 17:31; Status DC Diatrizoate Meglum/ Diatrizoate Sod 30 ml STK-MED ONCE PO ; Start 04/17/20 at 17:38; Stop 04/17/20 at 17:32; Status DC Iopamidol 74,000 mg STK-MED ONCE INJ ; Start 04/17/20 at 17:38; Stop 04/17/20 at 17:32; Status DC Morphine Sulfate 4 mg NOW STAT IV ; Start 04/17/20 at 18:59; Stop 04/17/20 at 19:00; Status UNV Ondansetron HCl 4 mg NOW STAT IV ; Start 04/17/20 at 18:59; Stop 04/17/20 at 19:00; Status UNV ZOLTAN MCKNIGHT MD Apr 17, 2020 19:12
--- NOTE | 2020-04-17 19:21 | Diagnostic Imaging Report ---
EXAM: CT Abdomen and Pelvis WITH contrast INDICATION: RIGHT LOWER ABD WALL ABSCESS COMPARISON: Multiple prior CT abdomen and pelvis examinations most recent dated 04/12/2020. TECHNIQUE: Abdomen and pelvis were scanned utilizing a multidetector helical scanner from the lung base to the pubic symphysis after administration of IV contrast. Coronal and sagittal reformations were obtained. Routine protocol was performed. Scan was performed when during portal venous phase. IV CONTRAST: 100 mL of Isovue 370 ORAL CONTRAST: None COMPLICATIONS: None RADIATION DOSE: Total DLP: 921.69 mGy*cm Estimated effective dose: (DLP x 0.015 x size factor) mSv CTDIvol has been reviewed. It is below the limits set by the Radiation Protocol Committee (RPC). Dose modulation, iterative reconstruction, and/or weight based adjustment of the mA/kV was utilized to reduce the radiation dose to as low as reasonably achievable. FINDINGS: LINES and TUBES: None. LOWER THORAX: Unremarkable HEPATOBILIARY: No focal hepatic lesions. No biliary ductal dilation. GALLBLADDER: There are cholecystectomy clips. SPLEEN: No splenomegaly. PANCREAS: No focal masses or ductal dilatation. ADRENALS: No adrenal nodules KIDNEYS/URETERS: Kidneys enhance symmetrically. No hydronephrosis. No cystic or solid mass lesions. No stones. GI TRACT: No abnormal distention, wall thickening, or evidence of bowel obstruction. Appendix is normal. PELVIC ORGANS/BLADDER: Unremarkable. LYMPH NODES: No lymphadenopathy. VESSELS: Unremarkable. PERITONEUM / RETROPERITONEUM: No free air or fluid. BONES: There are degenerative changes in the spine. SOFT TISSUES: There is marked interval increase in fat stranding involving the right anterior abdominal wall associated with a small fat-containing umbilical hernia. There is new focus of air seen (series 2, image 67) which could be infectious related or post procedural if there is history of recent procedure. There is also associated increased thickening of the right rectus muscle likely inflammatory. IMPRESSION: Marked interval increase in fat stranding involving the right anterior abdominal wall soft tissues associated with a small fat-containing umbilical hernia compatible with cellulitis. There is associated new focus of air seen which could be infectious related or post procedural if there is history of recent procedure. No definite abscess or drainable collection. Signed by: Tobi Georges MD on 04/17/2020 7:18 PM
--- OUTSIDE RECORDS SUMMARY | 2020-04-17 20:31 | XMS REPORT | Continuity of Care Document ---
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 bring pt's own adderall to pharmacy for label*, ATTN:REG[place], Drug form: MISC, Route: MISC, QSHIFT, 01/27/19 16:00:00 CDT, Duration: 30 day, Stop date: 02/26/19 8:00:00 CDT No Longer Active 01/27/2019 [facility] Acetaminophen 325 MG / Hydrocodone Nereyda trate 5 MG Oral Tablet [[place] 5/325] Notes: (Same as: [place] 325/5) Do not ex ceed 4gm/day of acetaminophen. No Longer Activ e 01/27/2019 [facility] Vancomycin 1 ea, Route: MISC, ONCALL, Dosing Weight 125, kg, Start date: 01/27/19 5:00:00 CDT, Duration: 5 day, Stop date: 02/01/19 4:59:00 CDT, Pharmacy to dose, ABX Indication: Skin/Soft Tissue Infection Inactive 01/27/2019 [facility] vancomycin + Sodium Chloride 0.9% IV 250 mL 2001 mg: infuse over 2.5 hours For adult patients only: Round to nearest 250 mg per Medical Staff approval MEDICATION WASTE Product Size: 1000 mg Product Wasted: ___ mg No Longer Active 01/27/2019 [facility] Lovenox Notes: (Same as: Loven ox) No Longer Active 01/27/2019 [facility] Morphine Notes: (Same as:MORPh ine Sulfate) No Longer Active 01/27/2019 [facility] Dextrose 50% Syringe 25 gm, 50 mL, Route: IVP, Drug Form: INJ, Dosing Weight 125, kg, PRN, PRN Blood Glucose Results, Start date: 01/27/19 4:35:00 CDT, Duration: 30 day, Stop date: 02/26/19 4:34:00 CDT No Longer Active 01/27/2019 [facility] Acetaminophen Notes: Do not ex ceed 4 gm/day. (Same as: Tylenol) No Longer Active 01/27/2019 [facility] Ondansetron Notes: (Same as: Kathy diaz) MEDICATION WASTE Product Size: 4 mg Product Wasted: ___ mg No Longer Active 01/27/2019 [facility] Glucagon 1 mg, Route: IM, Drug form: PDR/INJ, PRN, Dosing Weight 125, kg, PRN Blood Glucose Results, Start date: 01/27/19 4:35:00 CDT, Duration: 30 day, Stop date: 02/26/19 4:34:00 CDT No Longer Active 01/27/2019 [facility] Morphine 4 mg, Route: IVP, ONC E, Dosing Weight 125, kg, Priority: STAT, Start date: 01/27/19 3:29:00 CDT, Stop date: 01/27/19 3:29:00 CDT Inactive 01/27/2019 [facility] Vancomycin 1,000 mg, Route: IV PB, Drug form: INJ, ONCE, Dosing Weight 125, kg, Priority: STAT, Start date: 01/27/19 3:28:00 CDT, Stop date: 01/27/19 3:28:00 CDT, ABX Indication: Skin/Soft Tissue Infection Inactive 01/27/2019 [facility] Mupirocin 20 MG/ML Topical Cream 1 appl, TOP, TID, X 5 day, # 15 gm, 0 Refill(s) Active 12/13/2018 [facility] azithromycin 500 mg oral tablet 500 mg = 1 tab, PO, Daily, X 5 day, # 5 tab, 0 Refill(s) Active 12/13/2018 [facility] tedizolid 200 mg oral tablet 2 00 mg = 1 tab, PO, Daily, X 6 day, # 6 tab, 0 Refill(s), Pharmacy: [facility] [id number] Active 12/09/2018 [facility] Acetaminophen 300 MG / Codeine Phosphate 30 MG Oral Tablet [Tylenol with Codeine #3] 1 tab, PO, Q6H, PRN Pain, X 7 day, # 30 tab, 0 Refill(s) Active 12/09/2018 [facility] vancomycin + Sodium Chloride 0.9% IV 100 mL Notes: TIME CRITICAL MEDICATION (Same As: Vancocin) For adult patients only: Round to nearest 250 mg per Medical Staff approval No Longer Active 12/09/2018 [facility] vancomycin + Sodium Chloride 0.9% IV 250 mL 2001 mg: infuse over 2.5 hours For adult patients only: Round to nearest 250 mg per Medical Staff approval MEDICATION WASTE Product Size: 1000 mg Product Wasted: ___ mg No Longer Active 12/08/2018 [facility] Dilaudid Notes: (Same as: Dila udid) No Longer Active 12/07/2018 [facility] Naloxone Notes: Same as Narcan Inactive 12/06/2018 [facility] Ondansetron Notes: (Same as: Kathy diaz) MEDICATION WASTE Product Size: 4 mg Product Wasted: ___ mg Inactive 12/06/2018 [facility] Flumazenil Notes: (Same as: Ro mazicon) Inactive 12/06/2018 [facility] Hydromorphone Notes: Same as: Dilaudid Inactive 12/06/2018 [facility] Fentanyl Notes: (Same as: Subl imaze) Preservative free. Inactive 12/06/2018 [facility] Hydralazine Notes: (Same as: A presoline) Push over 5 minutes Inactive 12/06/2018 [facility] dexamethasone (ANES) Route: IV , Drug form: INJ, ONCE, Stop date: 12/06/18 12:33:00 CDT Inactive 12/06/2018 [facility] ondansetron (ANES) Route: IV, Drug form: INJ, ONCE, Stop date: 12/06/18 12:33:00 CDT Inactive 12/06/2018 [facility] ketOROLAC (ANES) IV, ONCE Inactive 12/06/2018 [facility] fentaNYL (ANES) Route: IV, Juan g form: INJ, ONCE, Stop date: 12/06/18 12:33:00 CDT Inactive 12/06/2018 [facility] midazolam (ANES) Route: IV, Dr ug form: SOLN, ONCE, Stop date: 12/06/18 12:33:00 CDT Inactive 12/06/2018 [facility] propofol (ANES) Route: IV, Juan g form: INJ, ONCE, Stop date: 12/06/18 12:33:00 CDT Inactive 12/06/2018 [facility] vancomycin (ANES) 1000 mg Rout e: IV, Drug form: INJ, Start date: 12/06/18 11:45:00 CDT, Stop date: 12/06/18 12:45:00 CDT Inactive 12/06/2018 [facility] Lactated Ringers Injection IV (ANES) 1000 mL Route: IV, Total Volume: 1,000, Start date: 12/06/18 11:45:00 CDT, Stop date: 12/06/18 12:45:00 CDT Inactive 12/06/2018 [facility] Calcium Chloride 0.0014 MEQ/ML / Potassi um Chloride 0.004 MEQ/ML / Sodium Chloride 0.103 MEQ/ML / Sodium Lactate 0.028 MEQ/ML Injectable Solution 1,000 mL, Rate: 25 ml/hr, Infuse over: 4 0 hr, Route: IV, Dosing Weight 58.778 kg, Total Volume: 1,000, Start date: 12/06/18 11:00:00 CDT, Duration: 30 day, Stop date: 01/05/19 10:59:00 CDT, 1.66, m2 Inactive 12/06/2018 [facility] vancomycin + Sodium Chloride 0.9% IV 250 mL 2001 mg: infuse over 2.5 hours For adult patients only: Round to nearest 250 mg per Medical Staff approval MEDICATION WASTE Product Size: 1000 mg Product Wasted: ___ mg No Longer Active 12/05/2018 [facility] Spironolactone Notes: (Same As : Aldactone) No Longer Active 12/05/2018 [facility] Ambien Notes: (Same As: Ambien) No Longer Active 12/05/2018 [facility] vancomycin + Sodium Chloride 0.9% IV 250 mL 2001 mg: infuse over 2.5 hours For adult patients only: Round to nearest 250 mg per Medical Staff approval MEDICATION WASTE Product Size: 1000 mg Product Wasted: ___ mg No Longer Active 12/04/2018 [facility] Adderall 30 mg, PO, BID, 0 Ref ill(s) Active 12/04/2018 [facility] Enoxaparin Notes: (Same as: Lo venox) No Longer Active 12/04/2018 [facility] Vancomycin 2001 mg: infuse ov er 2.5 hours For adult patients only: Round to nearest 250 mg per Medical Staff approval No Longer Active 12/04/2018 [facility] Vancomycin 2001 mg: infuse ov er 2.5 hours For adult patients only: Round to nearest 250 mg per Medical Staff approval MEDICATION WASTE Product Size: 1000 mg Product Wasted: ___ mg Inactive 12/04/2018 [facility] Dextrose 50% Syringe 25 gm, 50 mL, Route: IVP, Drug Form: INJ, Dosing Weight 126.364, kg, PRN, PRN Blood Glucose Results, Start date: 12/03/18 21:07:00 CDT, Duration: 30 day, Stop date: 01/02/19 21:06:00 CDT No Longer Active 12/04/2018 [facility] Glucagon 1 mg, Route: IM, Drug form: PDR/INJ, PRN, Dosing Weight 126.364, kg, PRN Blood Glucose Results, Start date: 12/03/18 21:07:00 CDT, Duration: 30 day, Stop date: 01/02/19 21:06:00 CDT No Longer Active 12/04/2018 [facility] Bisacodyl Notes: (Same As: Dul colax, Bisco-Lax) No Longer Active 12/04/2018 [facility] Ondansetron Notes: (Same as: Kathy diaz) MEDICATION WASTE Product Size: 4 mg Product Wasted: ___ mg No Longer Active 12/04/2018 [facility] Melatonin Notes: (Same as: Raissa atonin) No Longer Active 12/04/2018 [facility] Acetaminophen Notes: Do not ex ceed 4 gm/day. (Same as: Tylenol) No Longer Active 12/04/2018 [facility] Hydromorphone Notes: Same as: Dilaudid No Longer Active 12/04/2018 [facility] Tramadol Notes: Not to exceed 400mg/day. (Same As: Ultram) No Longer Active 12/04/2018 [facility] LR IV 1,000 mL 1,000 mL, Rate: 125 ml/hr, Infuse over: 8 hr, Route: IV, Dosing Weight 126.364 kg, Total Volume: 1,000, Start date: 12/03/18 21:05:00 CDT, Duration: 30 day, Stop date: 01/02/19 21:04:00 CDT, 2.47, m2 No Longer Active 12/04/2018 [facility] Calcium Gluconate Notes: WASTE : F/P - Sink; E - Municipal Trash Bin No Longer Active 12/04/2018 [facility] Potassium Chloride Notes: ([facility] as: K-Dur 20) "Do Not Crush" Give with food and full glass of water For patients unable to swallow tablet, dissolve in one half glass of water. Allow about 2 minutes for the tab lets to disintegrate. Stir before giving to prepare slurry and administer. Please exclude Patients with feeding tube less than 14 Swiss (Dobhoff, J-tube etc) and pediatric and patients. No Longer Active 12/04/2018 [facility] Magnesium Sulfate Notes: WASTE : F/P - Sink; E - Municipal Trash Bin No Longer Active 12/04/2018 [facility] potassium phosphate Notes: ([facility] as: K Phosphate.) Do not infuse phosphorous concurrently in the same line as TPN or IVF that contains calcium. For double lumen central lines, phosphorous may be infused in a separate lumen from TPN. 1 mMol phoshate has 1.47 mEq potassium Infuse over 4 hours No Longer Active 12/04/2018 [facility] sodium phosphate Notes: Infuse over 4 hour. Do not infuse phosphorous concurrently in the same line as TPN or IVF that contains calcium. For double lumen central lines, phosphorous may be infused in a separate lumen from TPN. No Longer Active 12/04/2018 [facility] Magnesium Oxide Notes: (Same a s: Mag-Ox 400) Magnesium oxide [id number] elemental magnesium Dose=____mg magnesium oxide (___mg elemental magnesium) No Longer Active 12/04/2018 [facility] potassium phosphate-sodium phosphate 250 mg-280 mg-160 mg oral powder for reconstitution Notes: (Same as: Phos-NaK) Each 1.5 gm pkt has 250mg phosphorous. Mix w/2.5oz water and stir. No Longer Active 12/04/2018 [facility] Morphine 4 mg, Route: IVP, ONC E, Dosing Weight 126.364, kg, Priority: STAT, Start date: 12/03/18 20:56:00 CDT, Stop date: 12/03/18 20:56:00 CDT Inactive 12/04/2018 [facility] Ondansetron 4 mg, Route: IVP, Drug form: INJ, ONCE, Dosing Weight 126.364, kg, Priority: STAT, Start date: 12/03/18 20:56:00 CDT, Stop date: 12/03/18 20:56:00 CDT Inactive 12/04/2018 [facility] Sodium Chloride 0.9% (Bolus) IV 1,000 mL, 1000 ml/hr, Infuse Over: 1 hr, Route: IV, 1,000, Drug form: INJ, ONCE, Priority: STAT, Dosing Weight 126.364 kg, Start date: 12/03/18 18:40:00 CDT, Stop date: 12/03/18 18:40:00 CDT Inactive 12/03/2018 [facility] Morphine 4 mg, Route: IVP, ONC E, Dosing Weight 126.364, kg, Priority: STAT, Start date: 12/03/18 18:40:00 CDT, Stop date: 12/03/18 18:40:00 CDT Inactive 12/03/2018 [facility] Vancomycin 1,000 mg, Route: IV PB, ONCE, Dosing Weight 126.364, kg, Priority: STAT, Start date: 12/03/18 18:40:00 CDT, Stop date: 12/03/18 18:40:00 CDT, ABX Indication: Skin/Soft Tissue Infection Inactive 12/03/2018 [facility] Saline Flush 0.9% Notes: (Same as: BD Posiflush) No Longer Active 12/03/2018 [facility] linezolid 600 mg oral tablet 6 00 mg = 1 tab, PO, [id number], X 10 day, # 20 tab, 0 Refill(s), Pharmacy: [facility] [id number] Active 10/12/2018 [facility] Morphine Notes: (Same as:MORPh ine Sulfate) No Longer Active 10/12/2018 [facility] linezolid Notes: Protect from light. (Same as: Zyvox) No Longer Active 10/11/2018 [facility] Vancomycin 2001 mg: infuse ov er 2.5 hours For adult patients only: Round to nearest 250 mg per Medical Staff approval MEDICATION WASTE Product Size: 1000 mg Product Wasted: ___ mg Inactive 10/11/2018 [facility] Lovenox Notes: (Same as: Loven ox) No Longer Active 10/11/2018 [facility] Vancomycin 1 ea, Route: MISC, ONCALL, Dosing Weight 133.182, kg, Priority: STAT, Start date: 10/11/18 10:46:00 HACK DRIVER, Duration: 1 day, Stop date: 10/12/18 10:45:00 HACK DRIVER, Pharmacy to dose, ABX Indication: Urinary T ract Infection Inactive 10/11/2018 [facility] Ambien Notes: (Same As: Ambien) No Longer Active 10/11/2018 [facility] Acetaminophen 300 MG / Codeine Phosphate 30 MG Oral Tablet [Tylenol with Codeine #3] Notes: Do not exceed 4gm/day of acetamin ophen. (Same as: Tylenol with Codeine # 3) No Longer Active 10/11/2018 [facility] Dextrose 50% Syringe 25 gm, 50 mL, Route: IVP, Drug Form: INJ, Dosing Weight 133.182, kg, PRN, PRN Blood Glucose Results, Start date: 10/11/18 10:12:00 HACK DRIVER, Duration: 30 day, Stop date: 11/10/18 11:11:00 CDT No Longer Active 10/11/2018 [facility] Glucagon 1 mg, Route: IM, Drug form: PDR/INJ, PRN, Dosing Weight 133.182, kg, PRN Blood Glucose Results, Start date: 10/11/18 10:12:00 HACK DRIVER, Duration: 30 day, Stop date: 11/10/18 11:11:00 CDT No Longer Active 10/11/2018 [facility] Docusate Notes: (Same as: Cola ce) (Do Not Crush) No Longer Active 10/11/2018 [facility] Dextrose 50% Syringe 25 gm, 50 mL, Route: IVP, Drug Form: INJ, Dosing Weight 133.182, kg, PRN, PRN Blood Glucose Results, Start date: 10/11/18 8:50:00 HACK DRIVER, Duration: 30 day, Stop date: 11/10/18 9:49:00 CDT No Longer Active 10/11/2018 [facility] Glucagon 1 mg, Route: IM, Drug form: PDR/INJ, PRN, Dosing Weight 133.182, kg, PRN Blood Glucose Results, Start date: 10/11/18 8:50:00 HACK DRIVER, Duration: 30 day, Stop date: 11/10/18 9:49:00 CDT No Longer Active 10/11/2018 [facility] Ondansetron Notes: (Same as: Kathy idaz) MEDICATION WASTE Product Size: 4 mg Product Wasted: ___ mg No Longer Active 10/11/2018 [facility] COLLAGENASE 0.25 UNT/MG Topical Ointment [Santyl] 1 appl, TOP, Daily, # 15 gm, 0 Refill(s) No Longer Active 10/11/2018 [facility] Spironolactone 50 mg, PO, Polina y, # 60 tab, 0 Refill(s) Active 10/11/2018 [facility] Zolpidem tartrate 10 MG Oral Tablet [Ambien] 10 mg = 1 tab, PO, Bedtime, # 14 tab, 0 Refill(s) Active 10/11/2018 [facility] Acetaminophen 325 MG / Hydrocodone Nereyda trate 5 MG Oral Tablet [[place] 5/325] 1 tab, Route: PO, Drug Form: TAB, Dosing Weight 133.005, kg, ONCE, STAT, Start date: 10/11/18 3:20:00 HACK DRIVER, Stop date: 10/11/18 3:20:00 HACK DRIVER Inactive 10/11/2018 [facility] Ibuprofen 600 mg, Route: PO, D rug form: TAB, ONCE, Dosing Weight 133.005, kg, Priority: STAT, Start date: 10/11/18 1:55:00 HACK DRIVER, Stop date: 10/11/18 1:55:00 HACK DRIVER Inactive 10/11/2018 [facility] Vancomycin 2001 mg: infuse ov er 2.5 hours For adult patients only: Round to nearest 250 mg per Medical Staff approval MEDICATION WASTE Product Size: 1000 mg Product Wasted: ___ mg No Longer Active 10/11/2018 [facility] Minocycline 100 mg, PO, BID, 0 Refill(s) No Longer Active 10/05/2018 [facility] Acetaminophen 300 MG / Codeine Phosphate 30 MG Oral Tablet [Tylenol with Codeine #3] 1 tab, PO, Q4H, PRN Pain, not to exceed 4000 mg acetaminophen per day, X 3 day, # 12 tab, 0 Refill(s) No Longer Active 09/06/2018 [facility] Ondansetron 4 MG Disintegrating Tablet [Zofran] 4 mg = 1 tab, PO, TID, # 15 tab, 0 Refill(s) No Longer Active 09/06/2018 [facility] Morphine Notes: (Same as:MORPh ine Sulfate) Inactive 09/06/2018 [facility] Pepcid Notes: (Same as: Pepcid ) Can be dilute in 5-10cc NS IVP: Slow IV push over at least 2 minutes. Inactive 09/06/2018 [facility] Zofran Notes: (Same as: Zofran ) MEDICATION WASTE Product Size: 4 mg Product Wasted: ___ mg Inactive 09/06/2018 [facility] Morphine 4 mg, Route: IVP, ONC E, Dosing Weight 120.455, kg, Priority: STAT, Start date: 09/06/18 0:58:00 HACK DRIVER, Stop date: 09/06/18 0:58:00 HACK DRIVER Inactive 09/06/2018 [facility] Zofran 4 mg, Route: IVP, Drug form: INJ, ONCE, Dosing Weight 120.455, kg, Priority: STAT, Start date: 09/06/18 0:58:00 HACK DRIVER, Stop date: 09/06/18 0:58:00 HACK DRIVER Inactive 09/06/2018 [facility] Sodium Chloride 0.9% (Bolus) IV 1,000 mL, Infuse Over: 1 hr, Route: IV, ONCE, Priority: STAT, Dosing Weight 120.455 kg, Start date: 09/06/18 0:57:00 HACK DRIVER, Stop date: 09/06/18 0:57:00 HACK DRIVER Inactive 09/06/2018 [facility] Acetaminophen 300 MG / Codeine Phosphate 30 MG Oral Tablet [Tylenol with Codeine #3] 1 tab, PO, Q12H, PRN Pain, X 5 day, # 10 tab, 0 Refill(s) No Longer Active 08/30/2018 [facility] heparin sodium, porcine 2500 UNT/ML Injectable Solutio n Notes: porcine heparin No Longer Active 08/30/2018 [facility] Vancomycin 2001 mg: infuse ov er 2.5 hours For adult patients only: Round to nearest 250 mg per Medical Staff approval MEDICATION WASTE Product Size: 1000 mg Product Wasted: ___ mg No Longer Active 08/28/2018 [facility] Saline Flush 0.9% Notes: (Same as: BD Posiflush) No Longer Active 08/27/2018 [facility] Lidocaine Hydrochloride 10 MG/ML Injectable Solution Notes: (Same as: Xylocaine) No Longer Active 08/27/2018 [facility] Saline Flush 0.9% Notes: (Same as: BD Posiflush) No Longer Active 08/27/2018 [facility] morphine Sulfate Notes: (Same as:MORPhine Sulfate) No Longer Active 08/26/2018 [facility] vancomycin + Sodium Chloride 0.9% IV 250 mL 2001 mg: infuse over 2.5 hours For adult patients only: Round to nearest 250 mg per Medical Staff approval MEDICATION WASTE Product Size: 1000 mg Product Wasted: ___ mg No Longer Active 08/25/2018 [facility] vancomycin + Sodium Chloride 0.9% IV 250 mL 2001 mg: infuse over 2.5 hours For adult patients only: Round to nearest 250 mg per Medical Staff approval MEDICATION WASTE Product Size: 1000 mg Product Wasted: ___ mg No Longer Active 08/25/2018 [facility] Tramadol Notes: Not to exceed 400mg/day. (Same As: Ultram) No Longer Active 08/25/2018 [facility] sennosides, LONG-TERM Notes: (Same a s: Senokot) No Longer Active 08/25/2018 [facility] Judith Sandoval Notes: (Same A s: Judith Sandoval) "Do Not Crush" No Longer Active 08/25/2018 [facility] Melatonin Notes: (Same as: Raissa atonin) No Longer Active 08/25/2018 [facility] Morphine 2 mg, 1 mL, Route: IV P, Drug form: SOLN, Q4H, Dosing Weight 127.727, kg, PRN Pain Score 7-10, Start date: 08/24/18 19:47:00 HACK DRIVER, Duration: 30 day, Stop date: 09/23/18 19:46:00 HACK DRIVER No Longer Active 08/25/2018 [facility] Acetaminophen 325 MG / Hydrocodone Nereyda trate 10 MG Oral Tablet [[place] 10/325] Notes: Do not exceed 4gm/day of acetamin ophen. (Same as: [place] 325/10) No Longer Active 08/25/2018 [facility] Vancomycin 2001 mg: infuse ov er 2.5 hours For adult patients only: Round to nearest 250 mg per Medical Staff approval MEDICATION WASTE Product Size: 1000 mg Product Wasted: ___ mg No Longer Active 08/24/2018 [facility] Dextrose 50% Syringe 12.5 gm, 25 mL, Route: IVP, Drug Form: INJ, Dosing Weight 136.364, kg, PRN, PRN Blood Glucose Results, Start date: 08/24/18 14:32:00 HACK DRIVER, Duration: 30 day, Stop date: 09/23/18 14:31:00 HACK DRIVER No Longer Active 08/24/2018 [facility] Glucagon 1 mg, Route: IM, Drug form: PDR/INJ, PRN, Dosing Weight 136.364, kg, PRN Blood Glucose Results, Start date: 08/24/18 14:32:00 HACK DRIVER, Duration: 30 day, Stop date: 09/23/18 14:31:00 HACK DRIVER No Longer Active 08/24/2018 [facility] Ondansetron Notes: (Same as: Kathy diaz) MEDICATION WASTE Product Size: 4 mg Product Wasted: ___ mg No Longer Active 08/24/2018 [facility] Acetaminophen Notes: Do not ex ceed 4 gm/day. (Same as: Tylenol) No Longer Active 08/24/2018 [facility] Morphine 4 mg, Route: IVP, ONC E, Dosing Weight 120.455, kg, Start date: 08/24/18 14:22:00 HACK DRIVER, Stop date: 08/24/18 14:22:00 HACK DRIVER Inactive 08/24/2018 [facility] Zofran Notes: (Same as: Zofran ) MEDICATION WASTE Product Size: 4 mg Product Wasted: ___ mg Inactive 08/24/2018 [facility] Morphine Notes: (Same as:MORPh ine Sulfate) Inactive 08/24/2018 [facility] Vancomycin 2001 mg: infuse ov er 2.5 hours For adult patients only: Round to nearest 250 mg per Medical Staff approval MEDICATION WASTE Product Size: 1000 mg Product Wasted: ___ mg Inactive 08/24/2018 [facility] doxycycline hyclate 100 MG Oral Tablet 100 mg = 1 tab, PO, Q12H, X 10 day, # 20 tab, 0 Refill(s), Pharmacy: [facility] [id number] No Longer Active 05/22/2018 [facility] Docusate Sodium 100 MG Oral Capsule [Colace] 100 mg = 1 cap, PO, BID, PRN as needed for constipation, # 14 cap, 0 Refill(s), Pharmacy: [facility] [id number] No Longer Active 05/22/2018 [facility] Acetaminophen 300 MG / Codeine Phosphate 30 MG Oral Tablet [Tylenol with Codeine #3] 1 tab, PO, Q6H, PRN Pain Score 6-10, X 5 day, # 20 tab, 0 Refill(s) No Longer Active 05/22/2018 [facility] Docusate Sodium 100 MG Oral Capsule [Colace] Notes: (Same as: Colace) (Do Not Crush) Inactive 05/22/2018 [facility] Acetaminophen 325 MG / Hydrocodone Nereyda trate 5 MG Oral Tablet [[place] 5/325] Notes: (Same as: [place] 325/5) Do not ex ceed 4gm/day of acetaminophen. No Longer Activ e 05/21/2018 [facility] vancomycin + Sodium Chloride 0.9% IV 250 mL 2001 mg: infuse over 2.5 hours For adult patients only: Round to nearest 250 mg per Medical Staff approval MEDICATION WASTE Product Size: 1000 mg Product Wasted: ___ mg No Longer Active 05/20/2018 [facility] vancomycin 2001 mg: infuse ov er 2.5 hours For adult patients only: Round to nearest 250 mg per Medical Staff approval MEDICATION WASTE Product Size: 1000 mg Product Wasted: ___ mg No Longer Active 05/19/2018 [facility] vancomycin + Sodium Chloride 0.9% IV 100 mL Notes: TIME CRITICAL MEDICATION (Same As: Vancocin) For adult patients only: Round to nearest 250 mg per Medical Staff approval Inactive 05/19/2018 [facility] Ceftriaxone Notes: (Same As: Nikko hopper). MEDICATION WASTE Product Size: 2000 mg Product Wasted: ___ mg No Longer Active 05/19/2018 [facility] Phenergan Notes: (Same as: Phe nergan) Inactive 05/19/2018 [facility] Morphine 2 mg, 1 mL, Route: IV P, Drug form: SOLN, ONCE, Dosing Weight 120.909, kg, Start date: 05/18/18 23:11:00 CDT, Stop date: 05/18/18 23:11:00 CDT Inactive 05/19/2018 [facility] morphine Sulfate Notes: (Same as:MORPhine Sulfate) Inactive 05/19/2018 [facility] Acetaminophen 300 MG / Codeine Phosphate 30 MG Oral Tablet [Tylenol with Codeine #3] Notes: Do not exceed 4gm/day of acetamin ophen. (Same as: Tylenol with Codeine # 3) No Longer Active 05/18/2018 [facility] Meperidine Notes: (Same As: De merol) Inactive 05/18/2018 [facility] Diphenhydramine Notes: (Same a s: Benadryl) Inactive 05/18/2018 [facility] Ondansetron Notes: (Same as: Kathy diaz) MEDICATION WASTE Product Size: 4 mg Product Wasted: ___ mg Inactive 05/18/2018 [facility] Promethazine 6.25 mg, Route: I VPB, ONCE, Dosing Weight 120.909, kg, PRN Nausea & Vomiting, Start date: 05/18/18 13:51:00 CDT Inactive 05/18/2018 [facility] Naloxone Notes: Same as Narcan Inactive 05/18/2018 [facility] Hydromorphone Notes: Same as: Dilaudid Inactive 05/18/2018 [facility] Fentanyl 50 microgram, Route: IVP, Q5Min, Dosing Weight 120.909, kg, PRN Pain Score 7-10, Priority: Routine, Start date: 05/18/18 13:51:00 CDT, Duration: 2 doses or times, Stop date: Limited # of times Inactive 05/18/2018 [facility] Flumazenil Notes: (Same as: Ro mazicon) Inactive 05/18/2018 [facility] Albuterol 0.83 MG/ML Inhalant Solution Notes: SEE RT DOCUMENTATION (Same as: Proventil) Inactive 05/18/2018 [facility] Ketorolac 4 days MEDICA TION WASTE Product Size: 30 mg Product Wasted: ___ mg Inactive 05/18/2018 [facility] Labetalol Notes: (Same as: Nor modyne, Trandate) Push over 2 minutes Give bolus over 2-3 minutes. Inactive 05/18/2018 [facility] Hydralazine Notes: (Same as: A presoline) Push over 5 minutes Inactive 05/18/2018 [facility] Acetaminophen Notes: Max aceta minophen 4000 mg/day (4 gm/day). (Same as: Tylenol Extra Strength) Inactive 05/18/2018 [facility] Oxycodone Notes: (Same as: Jessy icodone) Inactive 05/18/2018 [facility] lidocaine (ANES) Route: IV, Dr ug form: INJ, ONCE, Stop date: 05/18/18 13:43:00 CDT Inactive 05/18/2018 [facility] ondansetron (ANES) Route: IV, Drug form: INJ, ONCE, Stop date: 05/18/18 13:43:00 CDT Inactive 05/18/2018 [facility] propofol (ANES) Route: IV, Juan g form: INJ, ONCE, Stop date: 05/18/18 13:43:00 CDT Inactive 05/18/2018 [facility] dexamethasone (ANES) Route: IV , Drug form: INJ, ONCE, Stop date: 05/18/18 13:43:00 CDT Inactive 05/18/2018 [facility] ketOROLAC (ANES) IV, ONCE Inactive 05/18/2018 [facility] fentaNYL (ANES) Route: IV, Juan g form: INJ, ONCE, Stop date: 05/18/18 13:43:00 CDT Inactive 05/18/2018 [facility] midazolam (ANES) Route: IV, Dr ug form: SOLN, ONCE, Stop date: 05/18/18 13:43:00 CDT Inactive 05/18/2018 [facility] vancomycin (ANES) 1000 mg Rout e: IV, Drug form: INJ, Start date: 05/18/18 13:16:00 CDT, Stop date: 05/18/18 14:16:00 CDT Inactive 05/18/2018 [facility] Lactated Ringers Injection IV (ANES) 1000 mL Route: IV, Total Volume: 1,000, Start date: 05/18/18 13:16:00 CDT, Stop date: 05/18/18 14:16:00 CDT Inactive 05/18/2018 [facility] Sodium Chloride 0.9% IV 1,000 mL 1,000 mL, Rate: 25 ml/hr, Infuse over: 40 hr, Route: IV, Dosing Weight 120.909 kg, Total Volume: 1,000, Start date: 05/18/18 13:01:00 CDT, Duration: 30 day, Stop date: 06/17/18 13:00:00 CDT, 2.41, m2 Inactiv e 05/18/2018 [facility] Calcium Chloride 0.0014 MEQ/ML / Potassi um Chloride 0.004 MEQ/ML / Sodium Chloride 0.103 MEQ/ML / Sodium Lactate 0.028 MEQ/ML Injectable Solution 1,000 mL, Rate: 25 ml/hr, Infuse over: 4 0 hr, Route: IV, Dosing Weight 120.909 kg, Total Volume: 1,000, Start date: 05/18/18 13:01:00 CDT, Duration: 30 day, Stop date: 06/17/18 13:00:00 CDT, 2.41, m2 Inactive 05/18/2018 [facility] vancomycin + Sodium Chloride 0.9% IV 250 mL 1,000 mg, Route: IVPB, [id number], Dosing Weight 119.091, kg, Start date: 05/17/18 14:00:00 CDT, Duration: 7 day, Stop date: 05/24/18 2:00:00 CDT, ABX Indication: Skin/Soft Tissue Infection No Longer Active 05/17/2018 [facility] influenza virus vaccine, inactivated Notes: (Same as: Fluzone Quadrivalent, Fluarix Quadrivalent) For 3 years of age and older (0.5 mL IM) Shake well before use N o Longer Active 05/17/2018 [facility] Vancomycin 1,000 mg, Route: IV PB, Drug form: INJ, [id number], Dosing Weight 119.091, kg, Start date: 05/17/18 3:00:00 CDT, Duration: 7 day, Stop date: 05/23/18 15:00:00 CDT, ABX Indication: Pneumonia Inactive 05/17/2018 [facility] Enoxaparin Notes: (Same as: Lo venox) No Longer Active 05/17/2018 [facility] Saline Flush 0.9% Notes: (Same as: BD Posiflush) No Longer Active 05/17/2018 [facility] Lactated Ringers IV 1,000 mL 1 ,000 mL, Rate: 75 ml/hr, Infuse over: 13.3 hr, Route: IV, Dosing Weight 119.091 kg, Total Volume: 1,000, Start date: 05/17/18 2:46:00 CDT, Duration: 30 day, Stop date: 06/16/18 2:45:00 CDT, 2.39, m2 No Longer Active 05/17/2018 [facility] Ondansetron Notes: (Same as: Kathy diaz) MEDICATION WASTE Product Size: 4 mg Product Wasted: ___ mg No Longer Active 05/17/2018 [facility] Acetaminophen Notes: Do not ex ceed 4 gm/day. (Same as: Tylenol) No Longer Active 05/17/2018 [facility] Morphine 2 mg, 1 mL, Route: IV P, Drug form: SOLN, Q4H, Dosing Weight 119.091, kg, PRN Pain Score 7-10, Start date: 05/17/18 2:46:00 CDT, Duration: 30 day, Stop date: 06/16/18 2:45:00 CDT No Longer Active 05/17/2018 [facility] Ondansetron Notes: (Same as: Kathy diaz) MEDICATION WASTE Product Size: 4 mg Product Wasted: ___ mg Inactive 05/17/2018 [facility] Morphine Notes: (Same as:MORPh ine Sulfate) Inactive 05/17/2018 [facility] Vancomycin 2001 mg: infuse ov er 2.5 hours For adult patients only: Round to nearest 250 mg per Medical Staff approval MEDICATION WASTE Product Size: 1000 mg Product Wasted: ___ mg Inactive 05/17/2018 [facility] Methocarbamol 750 MG Oral Tablet [Robaxin] 750 mg = 1 tab, PO, TID, PRN as needed for pain, X 7 day, # 30 tab, 0 Refill(s) Active 01/13/2018 [facility] tramadol hydrochloride 50 MG Oral Tablet 50 mg = 1 tab, PO, Q6H, PRN Pain, not to exceed 400 mg/day, X 5 day, # 24 tab, 0 Refill(s) Active 01/13/2018 [facility] ibuprofen 800 mg oral tablet 8 00 mg = 1 tab, PO, Q8H, PRN Fever or Pain, Take with food, X 10 day, # 30 tab, 0 Refill(s) Active 01/13/2018 [facility] Acetaminophen 325 MG / Hydrocodone Nereyda trate 7.5 MG Oral Tablet [[place] 7.5/325] Notes: Same as [place] 325-7.5mg Do not exceed 4gm/day of acetaminophen. Inactive 01/13/2018 [facility] Valium Notes: (Same as: Valium) Inactive 01/13/2018 [facility] Ketorolac 4 days MEDICA TION WASTE Product Size: 30 mg Product Wasted: ___ mg Inactive 01/13/2018 [facility] Tylenol Notes: Do not exceed 4 gm/day. (Same as: Tylenol) Inactive 01/12/2018 [facility] Buspirone Notes: (Same As: BuS par) Inactive 12/31/2016 [facility] Phenergan Notes: (Same as: Phe nergan) Inactive 12/31/2016 [facility] Phenergan 25 mg oral tablet 25 mg, PO, Q6H, PRN Nausea & Vomiting, X 5 day, # 20 tab, 0 Refill(s), Pharmacy: [facility] [id number] Active 12/31/2016 [facility] Sodium Chloride 0.154 MEQ/ML Injectable Solution 1,000 mL, Rate: 150 ml/hr, Infuse over: 6.7 hr, Route: IV, Dosing Weight 109 kg, Total Volume: 1,000, Start date: 12/31/16 9:30:00 CDT, Duration: 30 day, Stop date: 01/30/17 9:29:00 CDT Inactive 12/31/2016 [facility] Trazodone Notes: (Same As: Hawk yrel) Inactive 12/31/2016 [facility] Cipro Notes: May interfere w/e nteral feedings - Take 1 hr before or 2 hrs after antacids, dairy pdt & minerals. On empty stomach. Inactive 12/31/2016 [facility] Flagyl Notes: (Same as: Flagyl ) Take with food/ avoid alcohol Inactive 12/31/2016 [facility] Fluoxetine Notes: (Same as: Pr ozac) Inactive 12/31/2016 [facility] Levsin SL Notes: (Same as: Lev sin) Take 30 min before meal Inactive 12/31/2016 [facility] Promethazine Notes: Do not giv e IV push. (Same as: Phenergan) Inactive 12/31/2016 [facility] Zofran 4 mg, Route: IVP, Drug form: INJ, ONCE, Dosing Weight 109.091, kg, Priority: STAT, Start date: 12/31/16 4:33:00 CDT, Stop date: 12/31/16 4:33:00 CDT Inactive 12/31/2016 [facility] Morphine 4 mg, Route: IVP, ONC E, Dosing Weight 109.091, kg, Priority: STAT, Start date: 12/31/16 4:30:00 CDT, Stop date: 12/31/16 4:30:00 CDT Inactive 12/31/2016 [facility] Rocephin Notes: (Same As: Roctimo phin). Use with 100 mL NS and infuse over 30 min MEDICATION WASTE Product Size: 1000 mg Product Wasted: ___ mg Inactive 12/31/2016 [facility] Ondansetron Notes: (Same as: Kathy diaz) MEDICATION WASTE Product Size: 4 mg Product Wasted: ___ mg No Longer Active 12/31/2016 [facility] Morphine Notes: (Same as:MORPh ine Sulfate) No Longer Active 12/31/2016 [facility] Saline Flush 0.9% Notes: (Same as: BD Posiflush) No Longer Active 12/31/2016 [facility] Sodium Chloride 0.154 MEQ/ML Injectable Solution 1,000 mL, 2,000 ml/hr, Infuse Over: 30 minutes, Route: IV, 1,000, Drug form: INJ, ONCE, Priority: STAT, Dosing Weight 109.091 kg, Start date: 12/30/16 23:55:00 CDT, Duration: 1 doses or times, Stop date: 12/30/16 23:55:00 CDT No Longer Active 12/31/2016 [facility] Ciprofloxacin 500 MG Oral Tablet [Cipro] 500 mg = 1 tab, PO, Q12H, X 7 day, # 14 tab, 0 Refill(s), Pharmacy: [facility] [id number] Active 12/25/2016 [facility] Acetaminophen 300 MG / Codeine Phosphate 30 MG Oral Tablet [Tylenol with Codeine #3] 1 - 2 tab, PO, Q4H, PRN Pain, X 2 day, # 10 tab, 0 Refill(s) No Longer Active 12/25/2016 [facility] Metronidazole 500 MG Oral Tablet [Flagyl] 500 mg = 1 tab, PO, BID, X 7 day, # 14 tab, 0 Refill(s), Pharmacy: [facility] [id number] Active 12/25/2016 [facility] Sodium Chloride 0.154 MEQ/ML Injectable Solution 500 mL, 500 ml/hr, Infuse Over: 1 hr, Route: IV, 500, Drug form: INJ, ONCE, Priority: STAT, Dosing Weight 109.091 kg, Start date: 12/25/16 17:53:00 CDT, Duration: 1 doses or times, Stop date: 12/25/16 17:53:00 CDT Inactive 12/25/2016 [facility] Acetaminophen 300 MG / Codeine Phosphate 30 MG Oral Tablet [Tylenol with Codeine #3] Notes: Do not exceed 4gm/day of acetamin ophen. (Same as: Tylenol with Codeine # 3) Inactive 12/25/2016 [facility] Flagyl Notes: (Same as: Flagyl ) Avoid alcohol. Inactive 12/25/2016 [facility] Cipro Notes: Do not refrigerate Inactive 12/25/2016 [facility] Saline Flush 0.9% Notes: (Same as: BD Posiflush) Inactive 12/25/2016 [facility] Famotidine 40 MG Oral Tablet [Pepcid] 40 mg = 1 tab, PO, Daily, # 30 tab, 0 Refill(s) Active 07/20/2016 [facility] Sucralfate 1000 MG Oral Tablet [Carafate] 1 gm = 1 tab, PO, TID, # 90 tab, 0 Refill(s) Active 07/20/2016 [facility] Phenergan 25 mg oral tablet 25 mg = 1 tab, PO, Q4H, PRN Nausea, X 5 day, # 30 tab, 0 Refill(s) Active 07/20/2016 [facility] Diflunisal 500 MG Oral Tablet [Dolobid] 500 mg = 1 tab, PO, Q8H, # 90 tab, 0 Refill(s) Active 07/20/2016 [facility] Zofran 4 mg, Route: IVP, Drug form: INJ, ONCE, Dosing Weight 104.545, kg, Priority: STAT, Start date: 07/19/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, Stop date: 07/19/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 Inactive 07/20/2016 [facility] Ketorolac 30 mg, Route: IVP, D rug form: INJ, ONCE, Dosing Weight 104.545, kg, Priority: STAT, Start date: 07/19/16 21:28:00 HACK DRIVER, Stop date: 07/19/16 21:28:00 HACK DRIVER Inactive 07/20/2016 [facility] Zofran Notes: (Same as: Zoan ) MEDICATION WASTE Product Size: 4 mg Product Wasted: ___ mg Inactive 07/20/2016 [facility] Famotidine 20 MG Oral Tablet [Pepcid] 20 mg, 1 tab, Route: PO, ONCE, Dosing Weight 104.545, kg, Start date: 07/19/16 19:40:00 HACK DRIVER, Stop date: 07/19/16 19:40:00 HACK DRIVER Inactive 07/20/2016 [facility] Sodium Chloride 0.154 MEQ/ML Injectable Solution 1,000 mL, 1,000 ml/hr, Infuse Over: 1 hr, Route: IV, 1,000, Drug form: INJ, ONCE, Priority: STAT, Dosing Weight 104.545 kg, Start date: 07/19/16 19:40:00 HACK DRIVER, Duration: 1 doses or times, Stop date: 07/19/16 19:40:00 HACK DRIVER Inactive 07/20/2016 [facility] GI cocktail 30 mL, Route: PO, Dosing Weight 104.545, kg, ONCE, STAT, Start date: 07/19/16 19:39:00 HACK DRIVER, Stop date: 07/19/16 19:39:00 HACK DRIVER Inactive 07/20/2016 [facility] Carafate Notes: May interfere w/enteral feeds - Take 1 hr before or 2 hr after antacids, dairy pdt, meals & minerals - On empty stomach. (Same As: Carafate) Inactive 07/20/2016 [facility] Cyclobenzaprine hydrochloride 10 MG Oral Tablet [Flexeril] 10 mg, PO, TID, PRN Muscle Spasm, X 10 d ay, # 30 tab, 0 Refill(s) Active 04/23/2016 [facility] tramadol hydrochloride 50 MG Oral Tablet 50 mg, Route: PO, Drug form: TAB, ONCE, Dosing Weight 94.091, kg, Priority: STAT, Start date: 04/23/16 1:34:00 CDT, Stop date: 04/23/16 1:34:00 CDT Inactive 04/23/2016 [facility] Valium 10 mg, Route: PO, ONCE, Dosing Weight 94.091, kg, Start date: 04/23/16 1:33:00 CDT, Stop date: 04/23/16 1:33:00 CDT Inactive 04/23/2016 [facility] Ketorolac 60 mg, Route: IM, Dr del [place] form: INJ, ONCE, Dosing Weight 94.091, kg, Priority: STAT, Start date: 04/23/16 1:33:00 CDT, Stop date: 04/23/16 1:33:00 CDT Inactive 04/23/2016 [facility] Methocarbamol 750 MG Oral Tablet [Robaxin] 750 mg = 1 tab, PO, TID, PRN as needed for pain, X 10 day, # 30 tab, 0 Refill(s) Active 04/16/2016 [facility] Acetaminophen 300 MG / Codeine Phosphate 30 MG Oral Tablet [Tylenol with Codeine #3] 1 - 2 tab, PO, Q4H, PRN Pain, X 2 day, # 24 tab, 0 Refill(s) No Longer Active 04/16/2016 [facility] Flexeril 10 mg, Route: PO, ONC E, Dosing Weight 103.182, kg, Priority: STAT, Start date: 04/16/16 3:20:00 CDT, Stop date: 04/16/16 3:20:00 CDT Inactive 04/16/2016 [facility] Zofran ODT 4 mg, Route: PO, Dr del toro form: TABDIS, ONCE, Dosing Weight 103.182, kg, Priority: STAT, Start date: 04/16/16 2:09:00 CDT, Stop date: 04/16/16 2:09:00 CDT Inactive 04/16/2016 [facility] Dilaudid 1 mg, Route: IM, ONCE , Dosing Weight 103.182, kg, Priority: STAT, Start date: 04/16/16 2:09:00 CDT, Stop date: 04/16/16 2:09:00 CDT Inactive 04/16/2016 [facility] promethazine 12.5 mg oral tablet 12.5 mg = 1 tab, PO, Q6H, PRN Nausea & Vomiting, X 5 day, # 20 tab, 0 Refill(s) Active 04/14/2016 [facility] Hyoscyamine Sulfate 0.125 MG Sublingual Tablet [Levsin ] 0.125 mg = 1 tab, SL, Q6H, PRN abdominal spasm, # 28 tab, 0 Refill(s) Active 04/14/2016 [facility] omeprazole 40 mg oral delayed release capsule 40 mg = 1 cap, PO, Daily, # 30 cap, 0 Refill(s) Active 04/14/2016 [facility] Promethazine Notes: Do not giv e IV push. (Same as: Phenergan) Inactive 04/14/2016 [facility] GI cocktail 30 mL, Route: PO, Dosing Weight 103.182, kg, ONCE, STAT, Start date: 04/14/16 2:12:00 CDT, Stop date: 04/14/16 2:12:00 CDT Inactive 04/14/2016 [facility] pantoprazole 40 mg, Route: IVP , ONCE, Dosing Weight 103.182, kg, Priority: STAT, Start date: 04/14/16 2:12:00 CDT, Stop date: 04/14/16 2:12:00 CDT Inactive 04/14/2016 [facility] Morphine 4 mg, Route: IVP, Juan g form: INJ, ONCE, Dosing Weight 103.182, kg, Priority: STAT, Start date: 04/14/16 0:57:00 CDT, Stop date: 04/14/16 0:57:00 CDT Inactive 04/14/2016 [facility] pantoprazole 40 mg, Route: IVP , ONCE, Dosing Weight 103.182, kg, For IV push reconstitute with 10 ml 0.9% sodium chloride and push over at least 3 minutes, Priority: STAT, Start date: 04/14/16 0:57:00 CDT, Stop date: 04/14/16 0:57:00 CDT Inactive 04/14/2016 [facility] Ondansetron 4 mg, Route: IVP, ONCE, Dosing Weight 103.182, kg, Priority: STAT, Start date: 04/14/16 0:57:00 CDT, Stop date: 04/14/16 0:57:00 CDT Inactive 04/14/2016 [facility] Sodium Chloride 0.154 MEQ/ML Injectable Solution 1,000 mL, 2,000 ml/hr, Infuse Over: 30 minutes, Route: IV, ONCE, Priority: STAT, Dosing Weight 103.182 kg, Start date: 04/14/16 0:57:00 CDT, Duration: 1 doses or times, Stop date: 04/14/16 0:57:00 CDT Inactive 04/14/2016 [facility] Saline Flush 0.9% Notes: (Same as: BD Posiflush) Inactive 04/14/2016 [facility] Reglan 10 mg, Route: IVP, Drug form: INJ, ONCE, Dosing Weight 100.455, kg, Priority: STAT, Start date: 02/24/16 1:09:00 CDT, Stop date: 02/24/16 1:09:00 CDT Inactive 02/24/2016 [facility] Levsin Notes: (Same as: Dixie ) MEDICATION WASTE Product Size: 0.5 mg Product Wasted: ___ mg Inactive 02/24/2016 [facility] Dicyclomine Hydrochloride 20 MG Oral Tablet [Bentyl] 20 mg = 1 tab, PO, QID, # 28 tab, 0 Refill(s) Active 02/24/2016 [facility] Metoclopramide 10 MG Oral Tablet [Reglan] 10 mg = 1 tab, PO, QID-Before Meals, X 10 day, # 40 tab, 0 Refill(s) Active 02/24/2016 [facility] Morphine 4 mg, Route: IVP, Juan g form: INJ, ONCE, Dosing Weight 100.455, kg, Priority: STAT, Start date: 02/24/16 0:09:00 CDT, Stop date: 02/24/16 0:09:00 CDT Inactive 02/24/2016 [facility] Magnesium Sulfate 1 gm, Route: IV, ONCE, Dosing Weight 100.455, kg, Start date: 02/23/16 23:50:00 CDT, Stop date: 02/23/16 23:50:00 CDT No Longer Active 02/24/2016 [facility] Zofran 4 mg, Route: IVP, Drug form: INJ, ONCE, Dosing Weight 100.455, kg, Priority: STAT, Start date: 02/23/16 23:34:00 CDT, Stop date: 02/23/16 23:34:00 CDT Inactive 02/24/2016 [facility] Sodium Chloride 0.154 MEQ/ML Injectable Solution 1,000 mL, 1,000 ml/hr, Infuse Over: 1 hr, Route: IV, ONCE, Priority: STAT, Dosing Weight 100.455 kg, Start date: 02/23/16 23:34:00 CDT, Duration: 1 doses or times, Stop date: 02/23/16 23:34:00 CDT Inactive 02/24/2016 [facility] Saline Flush 0.9% Notes: (Same as: BD Posiflush) No Longer Active 02/24/2016 [facility] Morphine Notes: (Same as:MORPh ine Sulfate) Inactive 01/17/2016 [facility] Hyoscyamine Sulfate 0.125 MG Oral Tablet [Levsin] 0.125 mg = 1 tab, PO, QID, PRN Spasm, # 40 tab, 0 Refill(s) Active 01/17/2016 [facility] Ondansetron 4 MG Disintegrating Tablet [Zofran] 4 mg = 1 tab, PO, BID, PRN Nausea and Vomiting, Dissolve tab under tongue, X 5 day, # 10 tab, 0 Refill(s) Active 01/17/2016 [facility] Bentyl 20 mg, Route: IM, ONCE, Dosing Weight 100.455, kg, Start date: 01/16/16 23:00:00 CDT, Stop date: 01/16/16 23:00:00 CDT Inactive 01/17/2016 [facility] Zofran 4 mg, Route: IVP, Drug form: INJ, ONCE, Dosing Weight 100.455, kg, Priority: STAT, Start date: 01/16/16 22:59:00 CDT, Stop date: 01/16/16 22:59:00 CDT Inactive 01/17/2016 [facility] Morphine Notes: (Same as:MORPh ine Sulfate) Inactive 01/17/2016 [facility] Ondansetron Notes: (Same as: Kathy diaz) MEDICATION WASTE Product Size: 4 mg Product Wasted: ___ mg Inactive 01/17/2016 [facility] Famotidine Notes: (Same as: Pe pcid) Can be dilute in 5- 10cc NS IVP: Slow IV push over at least 2 minutes. Inactive 01/17/2016 [facility] Sodium Chloride 0.154 MEQ/ML Injectable Solution 1,000 mL, 1,000 ml/hr, Infuse Over: 1 hr, Route: IV, 1,000, Drug form: INJ, ONCE, Priority: STAT, Dosing Weight 100.455 kg, Start date: 01/16/16 21:40:00 CDT, Duration: 1 doses or times, Stop date: 01/16/16 21:40:00 CDT Inactive 01/17/2016 [facility] Promethazine Hydrochloride 25 MG Oral Ta blet [Phenergan] 25 mg = 1 tab, PO, Q6H, PRN Nausea, X 4 day, # 15 tab, 0 Refill(s) Active 10/13/2015 [facility] Ranitidine 150 MG Oral Tablet [Zantac] 150 mg = 1 tab, PO, BID, # 60 tab, 0 Refill(s) Active 10/13/2015 [facility] Dicyclomine Hydrochloride 20 MG Oral Tablet [Bentyl] 20 mg = 1 tab, PO, QID-Before Meals, # 40 tab, 0 Refill(s) Active 10/13/2015 [facility] Promethazine Notes: Do not giv e IV push. (Same as: Phenergan) Inactive 10/13/2015 [facility] Sodium Chloride 0.154 MEQ/ML Injectable Solution 1,000 mL, 1000 ml/hr, Infuse Over: 1 hr, Route: IV, 1,000, Drug form: INJ, ONCE, Priority: STAT, Dosing Weight 101.818 kg, Start date: 10/13/15 3:32:00, Duration: 1 doses or times, Stop date: 10/13/15 3:32:00 Inactive 10/13/2015 [facility] Morphine Notes: (Same as:MORPh ine Sulfate) Inactive 10/13/2015 [facility] Ondansetron Notes: (Same as: Kathy diaz) MEDICATION WASTE Product Size: 4 mg Product Wasted: ___ mg Inactive 10/13/2015 [facility] Famotidine Notes: (Same as: Pe pcid) Can be dilute in 5- 10cc NS IVP: Slow IV push over at least 2 minutes. Inactive 10/13/2015 [facility] GI cocktail Notes: [place] = antacid with simethicone 22.5 mL - lidocaine viscous 7.5 mL Inactive 10/13/2015 [facility] Saline Flush 0.9% Notes: (Same as: BD Posiflush) Inactive 10/13/2015 [facility] Sodium Chloride 0.154 MEQ/ML Injectable Solution 1,000 mL, 1000 ml/hr, Infuse Over: 1 hr, Route: IV, 1,000, Drug form: INJ, ONCE, Priority: STAT, Dosing Weight 101.818 kg, Start date: 10/13/15 2:13:00, Duration: 1 doses or times, Stop date: 10/13/15 2:13:00 Inactive 10/13/2015 [facility] Diphenhydramine 25 mg, Route: IVP, ONCE, Dosing Weight 107.273, kg, Priority: STAT, Start date: 07/04/15 0:52:00, Stop date: 07/04/15 0:52:00 Inactive 07/04/2015 [facility] Famotidine 20 mg, Route: IVP, ONCE, Dosing Weight 107.273, kg, Priority: STAT, Start date: 07/04/15 0:52:00, Stop date: 07/04/15 0:52:00 Inactive 07/04/2015 [facility] [facility] Morphine 4 mg, Route: IVP, ONC E, Dosing Weight 107.273, kg, Priority: STAT, Start date: 07/04/15 0:52:00, Stop date: 07/04/15 0:52:00 Inactive 07/04/2015 [facility] Sodium Chloride 0.154 MEQ/ML Injectable Solution 1,000 mL, 1,000 ml/hr, Infuse Over: 1 hr, Route: IV, ONCE, Priority: STAT, Dosing Weight 107.273 kg, Start date: 07/04/15 0:52:00, Duration: 1 doses or times, Stop date: 07/04/15 0:52:00 Inactive 07/04/2015 [facility] GI cocktail 30 mL, Route: PO, Dosing Weight 107.273, kg, ONCE, STAT, Start date: 07/04/15 0:52:00, Stop date: 07/04/15 0:52:00 Inactive 07/04/2015 [facility] Acetaminophen 325 MG / Hydrocodone Nereyda trate 5 MG Oral Tablet Notes: (Same as: [place] 325/5) Do not ex ceed 4gm/day of acetaminophen. Inactive 05/17/2015 [facility] Ibuprofen 600 mg, Route: PO, O NCE, Dosing Weight 112.273, kg, Priority: STAT, Start date: 05/17/15 2:14:00, Stop date: 05/17/15 2:14:00 Inactive 05/17/2015 [facility] omeprazole 40 mg oral delayed release capsule 40 mg = 1 cap, PO, Daily, # 30 cap, 0 Refill(s) Active 05/15/2015 [facility] Dicyclomine Hydrochloride 20 MG Oral Tablet [Bentyl] 20 mg = 1 tab, PO, QID-Before Meals, # 28 tab, 0 Refill(s) Active 05/15/2015 [facility] Ondansetron 4 MG Oral Tablet [Zofran] 4 mg = 1 tab, PO, TID, X 5 day, # 15 tab, 0 Refill(s) Active 05/15/2015 [facility] Acetaminophen 325 MG / Hydrocodone Nereyda trate 7.5 MG Oral Tablet [[place] 7.5/325] 1 tab, Route: PO, Drug Form: TAB, Dosing Weight 122.727, kg, ONCE, STAT, Start date: 05/15/15 7:15:00, Stop date: 05/15/15 7:15:00 Inactive 05/15/2015 [facility] Ketorolac 30 mg, Route: IVP, D rug form: INJ, ONCE, Dosing Weight 122.727, kg, Priority: STAT, Start date: 05/15/15 7:14:00, Stop date: 05/15/15 7:14:00 Inactiv e 05/15/2015 [facility] Zofran 4 mg, Route: IVP, Drug form: INJ, ONCE, Dosing Weight 122.727, kg, Priority: STAT, Start date: 05/15/15 6:28:00, Stop date: 05/15/15 6:28:00 Inactive 05/15/2015 [facility] Morphine 4 mg, Route: IVP, Juan g form: INJ, ONCE, Dosing Weight 122.727, kg, Priority: STAT, Start date: 05/15/15 4:19:00, Stop date: 05/15/15 4:19:00 Inactive 05/15/2015 [facility] Zofran 4 mg, Route: IVP, Drug form: INJ, ONCE, Dosing Weight 122.727, kg, Priority: STAT, Start date: 05/15/15 4:19:00, Stop date: 05/15/15 4:19:00 Inactive 05/15/2015 [facility] Sodium Chloride 0.154 MEQ/ML Injectable Solution 1,000 mL, 1,000 ml/hr, Infuse Over: 1 Hour, Route: IV, ONCE, Priority: STAT, Dosing Weight 122.727 kg, Start date: 05/15/15 4:19:00, Duration: 1 doses or times, Stop date: 05/15/15 4:19:00 Inactive 05/15/2015 [facility] Metoclopramide 10 MG Oral Tablet [Reglan] 10 mg = 1 tab, PO, QID, PRN Other -See Comment, X 7 day, # 28 tab, 0 Refill(s) Active 02/14/2015 [facility] PlasmaLyte A PH-7.4 1,000 mL 1 ,000 mL, Rate: 2,000 ml/hr, Infuse over: 0.5 hr, Route: IV, Dosing Weight 112.727 kg, Total Volume: 1,000, Start date: 02/14/15 1:11:00, Duration: 1 doses or times, Stop date: 02/14/15 1:40:00 Inactive 02/14/2015 [facility] Benadryl Notes: (Same as: Vikki dryl) Inactive 02/14/2015 [facility] Reglan Notes: (Same as: Reglan) Inactive 02/14/2015 [facility] Ondansetron 4 MG Oral Tablet [Zofran] 4 mg = 1 tab, PO, BID, # 10 tab, 0 Refill(s) Active 09/30/2014 [facility] Morphine 4 mg, Route: IV, Drug form: INJ, ONCE, Dosing Weight 118.182, kg, Start date: 09/30/14 0:32:00, Stop date: 09/30/14 0:32:00 Inactive 09/30/2014 [facility] Morphine 4 mg, Route: IM, Drug form: INJ, ONCE, Dosing Weight 118.182, kg, Priority: STAT, Start date: 09/30/14 0:31:00, Stop date: 09/30/14 0:31:00 Inactive 09/30/2014 [facility] Saline Flush 0.9% Notes: Same as: BD Posiflush Sterile No Longer Active 09/30/2014 [facility] Sodium Chloride 0.154 MEQ/ML Injectable Solution 1,000 mL, Infuse Over: 1 hr, Route: IV, ONCE, Priority: STAT, Dosing Weight 118.182 kg, Start date: 09/29/14 23:25:00, Duration: 1 doses or times, Stop date: 09/29/14 23:25:00 Inactive 09/30/2014 [facility] Allergies, Adverse Reactions, Alerts Substance Category Reaction Severity Reaction type Status Date Reported Comments Source Bactrim Assertion Drug allergy Active [facility] ciprofloxacin Assertion Drug allergy Active [facility] penicillin Assertion Drug allergy Active [facility] clindamycin Assertion Drug allergy Active [facility] Keflex<sup>1, 2</sup> Assertion Drug allergy Active [facility] ceftriaxone in May 2018 hospitalization Rash to Keflex 2013; tolerated ceftriaxone in 2016 [facility] Immunizations Immunization Date Given Site Status Last Updated Comments Source influenza virus vaccine, inactivated 08/25/2018 Right deltoid completed [facility], [facility] [place] Results Order Name Results Value Reference Range Date Interpretation Comments Source TOXICOLOGY Vanco Tr 11.7 03/26/2020 [facility] TOXICOLOGY Vanco Tr TND 2200 03/26/2020 [facility] CHEM PANEL Glucose Lvl 101 70 - 99 03/25/2020 [facility] CHEM PANEL BUN 10 7 - 22 03/25/2020 [facility] CHEM PANEL Creatinine Lvl 0.64 0.50 - 1.40 03/25/2020 [facility] CHEM PANEL Sodium Lvl 137 135 - 145 03/25/2020 [facility] CHEM PANEL Potassium Lvl 4.1 3.5 - 5.1 03/25/2020 [facility] CHEM PANEL Chloride Lvl 104 95 - 109 03/25/2020 [facility] CHEM PANEL CO2 30 24 - 32 03/25/2020 [facility] CHEM PANEL Calcium Lvl 8.4 8.5 - 10.5 03/25/2020 [facility] CHEM PANEL AGAP 7.1 10.0 - 20.0 03/25/2020 [facility] CHEM PANEL eGFR 116 03/25/2020 Result [...] should be multiplied by the estimated BMI. [facility] TOXICOLOGY Vanco Tr 21.4 03/25/2020 [facility] TOXICOLOGY Vanco Tr TND 1000 03/25/2020 [facility] TOXICOLOGY Vanco Tr 13.7 03/24/2020 [facility] TOXICOLOGY Vanco Tr TND 1100 03/24/2020 [facility] TRIMETHOPRIM+SULFAMETHOXAZOLE:SUSC:PT:ISOLATE:ORDQN:NE C Gram Stain Report No Wbc'S Or Organisms Seen 03/23/2020 [facility] TRIMETHOPRIM+SULFAMETHOXAZOLE:SUSC:PT:ISOLATE:ORDQN:NE C Culture: Aspirate/Body Fluid/Tissue Many Staphylococcus aureus 03/23/2020 [facility] TRIMETHOPRIM+SULFAMETHOXAZOLE:SUSC:PT:ISOLATE:ORDQN:NE C Staphylococcus aureus Staphylococcus aureus 03/23/2020 [facility] CHEM PANEL Glucose Lvl 92 70 - 99 03/23[facility]2020 [facility] BUN 11 7 - 22 03/23/2020 [facility] CHEM PANEL Creatinine Lvl 0.64 0.50 - 1.40 03/23/2020 [facility] Sodium Lvl 139 135 - 145 03/23/2020 [facility] Potassium Lvl 3.7 3.5 - 5.1 03/23/2020 [facility] Chloride Lvl 107 95 - 109 03/23/2020 [place] CHEM PANEL CO2 28 24 - 32 03/23/2020 [facility] Calcium Lvl 8.2 8.5 - 10.5 03/23/2020 [facility] Albumin Lvl 2.8 3.5 - 5.0 03/23/2020 [place] CHEM PANEL ALT 16 0 - 65 03/23/2020 [place] CHEM PANEL AST 11 0 - 37 03/23/2020 [facility] AGAP 7.7 10.0 - 20.0 03/23/2020 [place] CHEM PANEL B/C Ratio 17 6 - 25 03/23/2020 [place] CHEM PANEL eGFR 117 03/23/2020 Result Comment: [...] should be multiplied by the estimated BMI. [place] CHEM PANEL Total Protein 6.7 6.4 - 8.4 03/23/2020 [facility] Alk Phos 75 39 - 136 03/23/2020 [facility] CHEM PANEL Bili Total 0.5 0.2 - 1.3 03/23/2020 [place] CHEM PANEL Globulin 3.9 2.7 - 4.2 03/23/2020 [facility] A/G Ratio 0.7 0.7 - 1.6 03/23/2020 [facility] HEMATOLOGY WBC 10.2 3.7 - 10.4 03/23/2020 [facility] HEMATOLOGY RBC 4.12 4.20 - 5.40 03/23/2020 [facility] HEMATOLOGY Hgb 12.2 12.0 - 16.0 03/23/2020 [facility] HEMATOLOGY Hct 36.5 36.0 - 48.0 03/23/2020 [facility] HEMATOLOGY MCV 88.6 80.0 - 98.0 03/23/2020 [facility] HEMATOLOGY MCH 29.5 27.0 - 31.0 03/23/2020 [facility] HEMATOLOGY MCHC 33.3 32.0 - 36.0 03/23/2020 [facility] HEMATOLOGY RDW 13.9 11.5 - 14.5 03/23/2020 [facility] HEMATOLOGY Platelet 226 133 - 450 03/23/2020 [facility] HEMATOLOGY MPV 8.3 7.4 - 10.4 03/23/2020 [facility] HEMATOLOGY Segs 63.8 45.0 - 75.0 03/23/2020 [facility] HEMATOLOGY Lymphocytes 21.4 20.0 - 40.0 03/23/2020 [facility] HEMATOLOGY Monocytes 9.2 2.0 - 12.0 03/23/2020 [facility] HEMATOLOGY Eosinophils 4.6 0.0 - 4.0 03/23/2020 [facility] HEMATOLOGY Basophils 1.0 0.0 - 1.0 03/23/2020 [facility] HEMATOLOGY Neutrophils # 6.5 1.5 - 8.1 03/23/2020 [facility] HEMATOLOGY Lymphocytes # 2.2 1.0 - 5.5 03/23/2020 [facility] HEMATOLOGY Monocytes # 0.9 0.0 - 0.8 03/23/2020 [facility] HEMATOLOGY Eosinophils # 0.5 0.0 - 0.5 03/23/2020 [facility] HEMATOLOGY Basophils # 0.1 0.0 - 0.2 03/23/2020 [facility] TOXICOLOGY Vanco Tr 14.1 11/03/2019 [facility] TOXICOLOGY Vanco Tr TND 10:00 11/03/2019 [facility] CHEM PANEL Glucose Lvl 99 70 - 99 11/03/2019 [facility] CHEM PANEL BUN 8 7 - 22 11/03/2019 [facility] CHEM PANEL Creatinine Lvl 0.59 0.50 - 1.40 11/03/2019 [facility] CHEM PANEL Sodium Lvl 137 135 - 145 11/03/2019 [facility] CHEM PANEL Potassium Lvl 4.0 3.5 - [...] PANEL ALT 51 0 - 65 11/03/2019 [facility] CHEM PANEL AST 41 0 - 37 11/03/2019 [facility] CHEM PANEL Alk Phos 84 39 - 136 11/03/2019 [facility] CHEM PANEL Bili Total 0.4 0.2 - 1.3 11/03/2019 [facility] CHEM PANEL AGAP 8.0 10.0 - 20.0 11/03/2019 [facility] CHEM PANEL B/C Ratio 14 6 - 25 11/03/2019 [facility] CHEM PANEL Globulin 3.6 2.7 - 4.2 11/03/2019 [facility] CHEM PANEL A/G Ratio 0.8 0.7 - 1.6 11/03/2019 [facility] CHEM PANEL eGFR 121 11/03/2019 Result Comment: [...] should be multiplied by the estimated BMI. [facility] HEMATOLOGY Segs 65.6 45.0 - 75.0 11/03/2019 [facility] HEMATOLOGY Lymphocytes 20.6 20.0 - 40.0 11/03/2019 [facility] HEMATOLOGY Monocytes 8.8 2.0 - 12.0 11/03/2019 [facility] HEMATOLOGY Eosinophils 4.2 0.0 - 4.0 11/03/2019 [facility] HEMATOLOGY Basophils 0.8 0.0 - 1.0 11/03/2019 [facility] HEMATOLOGY Neutrophils # 6.0 1.5 - 8.1 11/03/2019 [facility] HEMATOLOGY Lymphocytes # 1.9 1.0 - 5.5 11/03/2019 [facility] HEMATOLOGY Monocytes # 0.8 0.0 - 0.8 11/03/2019 [facility] HEMATOLOGY Eosinophils # 0.4 0.0 - 0.5 11/03/2019 [facility] HEMATOLOGY Basophils # 0.1 0.0 - 0.2 11/03/2019 [facility] HEMATOLOGY WBC 9.1 3.7 - 10.4 11/03/2019 [facility] RBC 4.27 4.20 - 5.40 11/03/2019 [facility] HEMATOLOGY Hgb 12.4 12.0 - 16.0 11/03/2019 [facility] HEMATOLOGY Hct 38.1 36.0 - 48.0 11/03/2019 [facility] MCV 89.2 80.0 - 98.0 11/03/2019 [facility] MCH 29.0 27.0 - 31.0 11/03/2019 [facility] MCHC 32.5 32.0 - 36.0 11/03/2019 [facility] RDW 13.1 11.5 - 14.5 11/03/2019 [facility] HEMATOLOGY Platelet 210 133 - 450 11/03/2019 [facility] MPV 8.9 7.4 - 10.4 11/03/2019 [facility] SPECIAL CHEMISTRY Hgb A1C 5.3 <=5.6 % 11/03/2019 [facility] CHEM PANEL Glucose Lvl 96 70 - 99 11/02/2019 [facility] CHEM PANEL BUN 9 7 - 22 11/02/2019 [facility] CHEM PANEL Creatinine Lvl 0.70 0.50 - 1.40 11/02/2019 [facility] CHEM PANEL Sodium Lvl 140 135 - 145 11/02/2019 [facility] CHEM PANEL Potassium Lvl 4.0 3.5 - 5.1 11/02/2019 [facility] CHEM PANEL Chloride Lvl 109 95 - 109 11/02/2019 [facility] CHEM PANEL CO2 26 24 - 32 11/02/2019 [facility] CHEM PANEL Calcium Lvl 8.3 8.5 - 10.5 11/02/2019 [facility] CHEM PANEL AGAP 9.0 10.0 - 20.0 11/02/2019 [facility] CHEM PANEL eGFR 114 11/02/2019 Result Comment: [...] should be multiplied by the estimated BMI. [facility] ELECTROLYTES AGAP 10.1 10.0 - 20.0 05/25/2019 [facility] ELECTROLYTES B/C Ratio 20 6 - 25 05/25/2019 [facility] ELECTROLYTES Globulin 4.3 2.7 - 4.2 05/25/2019 [facility] ELECTROLYTES A/G Ratio 0.9 0.7 - 1.6 05/25/2019 [facility] ELECTROLYTES Glucose Lvl 94 70 - 99 05/25/2019 [facility] ELECTROLYTES BUN 13 7 - 22 05/25/2019 [facility] ELECTROLYTES Creatinine Lvl 0.6 6 0.50 - 1.40 05/25/2019 [facility] ELECTROLYTES Sodium Lvl 137 135 - 145 05/25/2019 [facility] ELECTROLYTES Potassium Lvl 4.1 3.5 - 5.1 05/25/2019 [facility] ELECTROLYTES Chloride Lvl 107 95 - 109 05/25/2019 [facility] ELECTROLYTES CO2 24 24 - 32 05/25/2019 [facility] ELECTROLYTES Calcium Lvl 9.3 8.5 - 10.5 05/25/2019 [facility] ELECTROLYTES Total Protein 8.2 6.4 - 8.4 05/25/2019 [facility] ELECTROLYTES Albumin Lvl 3.9 3.5 - 5.0 05/25/2019 [facility] ELECTROLYTES ALT 25 0 - 65 05/25/2019 [facility] ELECTROLYTES AST 14 0 - 37 05/25/2019 [facility] ELECTROLYTES Alk Phos 98 39 - 136 05/25/2019 [facility] ELECTROLYTES Bili Total 0.4 0.2 - 1.3 05/25/2019 [facility] ELECTROLYTES eGFR 116 05/25/2019 Result Comment: The [...] should be multiplied by the estimated BMI. [facility] ENDOCRINOLOGY S Preg Ne gative *NA* (05/25/19 2:19 AM) Negative 05/25/2019 [facility] HEMATOLOGY WBC 14.7 3.7 - 10.4 05/25/2019 [facility] RBC 4.90 4.20 - 5.40 05/25/2019 [facility] Hgb 14.1 12.0 - 16.0 05/25/2019 [facility] Hct 43.2 36.0 - 48.0 05/25/2019 [facility] MCV 88.2 80.0 - 98.0 05/25/2019 [facility] MCH 28.8 27.0 - 31.0 05/25/2019 [facility] MCHC 32.7 32.0 - 36.0 05/25/2019 [facility] RDW 13.2 11.5 - 14.5 05/25/2019 [facility] Platelet 298 133 - 450 05/25/2019 [facility] MPV 8.5 7.4 - 10.4 05/25/2019 [facility] Segs 66.4 45.0 - 75.0 05/25/2019 [facility] Lymphocytes 21.1 20.0 - 40.0 05/25/2019 [facility] Monocytes 7.4 2.0 - 12.0 05/25/2019 [facility] HEMATOLOGY Eosinophils 4.1 0.0 - 4.0 05/25/2019 [facility] HEMATOLOGY Basophils 1.0 0.0 - 1.0 05/25/2019 [facility] Neutrophils # 9.8 1.5 - 8.1 05/25/2019 [facility] Lymphocytes # 3.1 1.0 - 5.5 05/25/2019 [facility] Monocytes # 1.1 0.0 - 0.8 05/25/2019 [facility] HEMATOLOGY Eosinophils # 0.6 0.0 - 0.5 05/25/2019 [facility] HEMATOLOGY Basophils # 0.1 0.0 - 0.2 05/25/2019 [facility] CHEM PANEL Glucose Lvl 105 70 - 99 04/03/2019 [facility] CHEM PANEL BUN 10 7 - 22 04/03/2019 [facility] CHEM PANEL Creatinine Lvl 0.78 0.50 - 1.40 04/03/2019 [facility] CHEM PANEL Sodium Lvl 141 135 - 145 04/03/2019 [facility] CHEM PANEL Potassium Lvl 3.9 3.5 - 5.1 04/03/2019 [facility] CHEM PANEL Chloride Lvl 109 95 - 109 04/03/2019 [facility] CHEM PANEL CO2 25 24 - 32 04/03/2019 [facility] CHEM PANEL Calcium Lvl 8.8 8.5 - 10.5 04/03/2019 [facility] CHEM PANEL eGFR 100 04/03/2019 Result [...] should be multiplied by the estimated BMI. [facility] CHEM PANEL AGAP 10.9 10.0 - 20.0 04/03/2019 [facility] ENDOCRINOLOGY S Preg Ne gative *NA* (04/03/19 5:11 PM) Negative 04/03/2019 [facility] HEMATOLOGY WBC 11.5 3.7 - 10.4 04/03/2019 [facility] HEMATOLOGY RBC 4.85 4.20 - 5.40 04/03/2019 [facility] HEMATOLOGY Hgb 14.2 12.0 - 16.0 04/03/2019 [facility] HEMATOLOGY Hct 43.0 36.0 - 48.0 04/03/2019 [facility] MCV 88.7 80.0 - 98.0 04/03/2019 [facility] MCH 29.2 27.0 - 31.0 04/03/2019 [facility] MCHC 33.0 32.0 - 36.0 04/03/2019 [facility] RDW 13.3 11.5 - 14.5 04/03/2019 [facility] Platelet 239 133 - 450 04/03/2019 [facility] MPV 8.4 7.4 - 10.4 04/03/2019 [facility] Segs 66.0 45.0 - 75.0 04/03/2019 [facility] Lymphocytes 21.2 20.0 - 40.0 04/03/2019 [facility] HEMATOLOGY Monocytes 8.2 2.0 - 12.0 04/03/2019 [facility] HEMATOLOGY Eosinophils 3.6 0.0 - 4.0 04/03/2019 [facility] HEMATOLOGY Basophils 1.0 0.0 - 1.0 04/03/2019 [facility] HEMATOLOGY Neutrophils # 7.6 1.5 - 8.1 04/03/2019 [facility] Lymphocytes # 2.4 1.0 - 5.5 04/03/2019 [facility] Monocytes # 0.9 0.0 - 0.8 04/03/2019 [facility] HEMATOLOGY Eosinophils # 0.4 0.0 - 0.5 04/03/2019 [facility] Basophils # 0.1 0.0 - 0.2 04/03/2019 [facility] HEMATOLOGY WBC 11.2 3.7 - 10.4 03/24/2019 [facility] HEMATOLOGY Hgb 13.7 12.0 - 16.0 03/24/2019 [facility] MPV 8.9 7.4 - 10.4 03/24/2019 [facility] HEMATOLOGY RBC 4.66 4.20 - 5.40 03/24/2019 [facility] HEMATOLOGY Platelet 252 133 - 450 03/24/2019 [facility] MCH 29.5 27.0 - 31.0 03/24/2019 [facility] MCHC 33.8 32.0 - 36.0 03/24/2019 [facility] RDW 13.7 11.5 - 14.5 03/24/2019 [facility] HEMATOLOGY Hct 40.6 36.0 - 48.0 03/24/2019 [facility] HEMATOLOGY MCV 87.1 80.0 - 98.0 03/24/2019 [facility] HEMATOLOGY Eosinophils 3.3 0.0 - 4.0 03/24/2019 [facility] HEMATOLOGY Monocytes 7.6 2.0 - 12.0 03/24/2019 [facility] HEMATOLOGY Basophils # 0.1 0.0 - 0.2 03/24/2019 [facility] HEMATOLOGY Eosinophils # 0.4 0.0 - 0.5 03/24/2019 [facility] HEMATOLOGY Segs 65.7 45.0 - 75.0 03/24/2019 [facility] Lymphocytes 22.6 20.0 - 40.0 03/24/2019 [facility] HEMATOLOGY Neutrophils # 7.4 1.5 - 8.1 03/24/2019 [facility] Monocytes # 0.8 0.0 - 0.8 03/24/2019 [facility] HEMATOLOGY Basophils 0.8 0.0 - 1.0 03/24/2019 [facility] Lymphocytes # 2.5 1.0 - 5.5 03/24/2019 [facility] CHEM PANEL Procalcitonin Lvl <0.05 0.00 - 0.10 03/24/2019 [facility] CHEM PANEL Lactic Acid Lvl 1.7 0.5 - 2.2 03/23/2019 [facility] CHEM PANEL Lactic Acid Lvl 1.7 0.5 - 2.2 03/23/2019 [facility] ELECTROLYTES AGAP 11.5 10.0 - 20.0 03/23/2019 [facility] ELECTROLYTES eGFR 99 03/23/2019 Result Comment: [...] should be multiplied by the estimated BMI. [facility] ELECTROLYTES Sodium Lvl 142 135 - 145 03/23/2019 [facility] ELECTROLYTES Calcium Lvl 8.8 8.5 - 10.5 03/23/2019 [facility] ELECTROLYTES CO2 25 24 - 32 03/23/2019 [facility] ELECTROLYTES Chloride Lvl 109 95 - 109 03/23/2019 [facility] ELECTROLYTES Potassium Lvl 3.5 3.5 - 5.1 03/23/2019 [facility] ELECTROLYTES Glucose Lvl 118 70 - 99 03/23/2019 [facility] ELECTROLYTES Creatinine Lvl 0.7 9 0.50 - 1.40 03/23/2019 [facility] ELECTROLYTES BUN 10 7 - 22 03/23/2019 [facility] HEMATOLOGY Monocytes # 0.7 0.0 - 0.8 03/23/2019 [facility] HEMATOLOGY Eosinophils # 0.3 0.0 - 0.5 03/23/2019 [facility] HEMATOLOGY Basophils 1.0 0.0 - 1.0 03/23/2019 [facility] HEMATOLOGY Eosinophils 3.1 0.0 - 4.0 03/23/2019 [facility] HEMATOLOGY Basophils # 0.1 0.0 - 0.2 03/23/2019 [facility] HEMATOLOGY Neutrophils # 8.0 1.5 - 8.1 03/23/2019 [facility] Lymphocytes # 2.1 1.0 - 5.5 03/23/2019 [facility] Lymphocytes 18.5 20.0 - 40.0 03/23/2019 [facility] HEMATOLOGY Monocytes 6.6 2.0 - 12.0 03/23/2019 [facility] HEMATOLOGY Segs 70.8 45.0 - 75.0 03/23/2019 [facility] Platelet 271 133 - 450 03/23/2019 [facility] MPV 8.0 7.4 - 10.4 03/23/2019 [facility] HEMATOLOGY RDW 13.6 11.5 - 14.5 03/23/2019 [facility] MCH 29.3 27.0 - 31.0 03/23/2019 [facility] MCHC 33.3 32.0 - 36.0 03/23/2019 [facility] MCV 88.1 80.0 - 98.0 03/23/2019 [facility] HEMATOLOGY Hgb 14.2 12.0 - 16.0 03/23/2019 [facility] HEMATOLOGY Hct 42.6 36.0 - 48.0 03/23/2019 [facility] HEMATOLOGY RBC 4.84 4.20 - 5.40 03/23/2019 [facility] HEMATOLOGY WBC 11.2 3.7 - 10.4 03/23/2019 [facility] CHEM PANEL Phosphorus 5.1 2.5 - 4.5 03/07/2019 [facility] CHEM PANEL Magnesium Lvl 1.7 1.8 - 2.4 03/07/2019 [facility] ELECTROLYTES AGAP 10.8 10.0 - 20.0 03/07/2019 [facility] ELECTROLYTES eGFR 101 03/07/2019 Result Comment: [...] should be multiplied by the estimated BMI. [facility] ELECTROLYTES Calcium Lvl 8.8 8.5 - 10.5 03/07/2019 [facility] ELECTROLYTES CO2 29 24 - 32 03/07/2019 [facility] ELECTROLYTES Sodium Lvl 141 135 - 145 03/07/2019 [facility] ELECTROLYTES Potassium Lvl 3.8 3.5 - 5.1 03/07/2019 [facility] ELECTROLYTES BUN 11 7 - 22 03/07/2019 [facility] ELECTROLYTES Creatinine Lvl 0.7 8 0.50 - 1.40 03/07/2019 [facility] ELECTROLYTES Chloride Lvl 105 95 - 109 03/07/2019 [facility] ELECTROLYTES Glucose Lvl 108 70 - 99 03/07/2019 [facility] HEMATOLOGY Platelet 256 133 - 450 03/07/2019 [facility] HEMATOLOGY MPV 8.9 7.4 - 10.4 03/07/2019 [facility] HEMATOLOGY RDW 13.6 11.5 - 14.5 03/07/2019 [facility] HEMATOLOGY MCHC 33.8 32.0 - 36.0 03/07/2019 [facility] HEMATOLOGY MCV 86.3 80.0 - 98.0 03/07/2019 [facility] HEMATOLOGY MCH 29.2 27.0 - 31.0 03/07/2019 [facility] HEMATOLOGY Hgb 13.5 12.0 - 16.0 03/07/2019 [facility] HEMATOLOGY RBC 4.63 4.20 - 5.40 03/07/2019 [facility] HEMATOLOGY Hct 39.9 36.0 - 48.0 03/07/2019 [facility] HEMATOLOGY WBC 10.0 3.7 - 10.4 03/07/2019 [facility] HEMATOLOGY Basophils # 0.1 0.0 - 0.2 03/07/2019 [facility] HEMATOLOGY Eosinophils # 0.4 0.0 - 0.5 03/07/2019 [facility] HEMATOLOGY Eosinophils 4.4 0.0 - 4.0 03/07/2019 [facility] HEMATOLOGY Lymphocytes # 2.7 1.0 - 5.5 03/07/2019 [facility] HEMATOLOGY Basophils 0.7 0.0 - 1.0 03/07/2019 [facility] HEMATOLOGY Monocytes # 0.7 0.0 - 0.8 03/07/2019 [facility] HEMATOLOGY Neutrophils # 6.1 1.5 - 8.1 03/07/2019 [facility] HEMATOLOGY Monocytes 6.7 2.0 - 12.0 03/07/2019 [facility] HEMATOLOGY Lymphocytes 26.7 20.0 - 40.0 03/07/2019 [facility] HEMATOLOGY Segs 61.5 45.0 - 75.0 03/07/2019 [facility] CHEM PANEL Phosphorus 4.2 2.5 - 4.5 03/06/2019 [facility] CHEM PANEL Magnesium Lvl 1.8 1.8 - 2.4 03/06/2019 [facility] ELECTROLYTES Potassium Lvl 4.0 3.5 - 5.1 03/06/2019 [facility] ELECTROLYTES Chloride Lvl 107 95 - 109 03/06/2019 [facility] ELECTROLYTES CO2 26 24 - 32 03/06/2019 [facility] ELECTROLYTES Sodium Lvl 140 135 - 145 03/06/2019 [facility] ELECTROLYTES Creatinine Lvl 0.7 1 0.50 - 1.40 03/06/2019 [facility] ELECTROLYTES Calcium Lvl 8.6 8.5 - 10.5 03/06/2019 [facility] ELECTROLYTES eGFR 113 03/06/2019 Result Comment: [...] should be multiplied by the estimated BMI. [facility] [facility] ELECTROLYTES Glucose Lvl 101 70 - 99 03/06/2019 [facility] ELECTROLYTES BUN 11 7 - 22 03/06/2019 [facility] ELECTROLYTES AGAP 11.0 10.0 - 20.0 03/06/2019 [facility] HEMATOLOGY Eosinophils 4.7 0.0 - 4.0 03/06/2019 [facility] HEMATOLOGY Lymphocytes 27.0 20.0 - 40.0 03/06/2019 [facility] HEMATOLOGY Monocytes 7.3 2.0 - 12.0 03/06/2019 [facility] HEMATOLOGY Segs 59.8 45.0 - 75.0 03/06/2019 [facility] HEMATOLOGY Eosinophils # 0.4 0.0 - 0.5 03/06/2019 [facility] HEMATOLOGY Lymphocytes # 2.3 1.0 - 5.5 03/06/2019 [facility] HEMATOLOGY Monocytes # 0.6 0.0 - 0.8 03/06/2019 [facility] HEMATOLOGY Basophils 1.2 0.0 - 1.0 03/06/2019 [facility] HEMATOLOGY Neutrophils # 5.1 1.5 - 8.1 03/06/2019 [facility] HEMATOLOGY Basophils # 0.1 0.0 - 0.2 03/06/2019 [facility] HEMATOLOGY Hct 37.4 36.0 - 48.0 03/06/2019 [facility] HEMATOLOGY WBC 8.5 3.7 - 10.4 03/06/2019 [facility] HEMATOLOGY RBC 4.32 4.20 - 5.40 03/06/2019 [facility] HEMATOLOGY Hgb 12.7 12.0 - 16.0 03/06/2019 [facility] MCV 86.6 80.0 - 98.0 03/06/2019 [facility] HEMATOLOGY MPV 8.7 7.4 - 10.4 03/06/2019 [facility] Platelet 247 133 - 450 03/06/2019 [facility] HEMATOLOGY MCH 29.3 27.0 - 31.0 03/06/2019 [facility] HEMATOLOGY MCHC 33.9 32.0 - 36.0 03/06/2019 [facility] HEMATOLOGY RDW 13.7 11.5 - 14.5 03/06/2019 [facility] TOXICOLOGY Vanco Tr 17.8 03/05/2019 [facility] TOXICOLOGY Vanco Tr TND 1300 03/05/2019 [facility] CHEM PANEL Phosphorus 4.6 2.5 - 4.5 03/04/2019 [facility] CHEM PANEL Magnesium Lvl 1.7 1.8 - 2.4 03/04/2019 [facility] ELECTROLYTES AGAP 8.6 10.0 - 20.0 03/04/2019 [facility] ELECTROLYTES eGFR 119 03/04/2019 Result Comment: [...] should be multiplied by the estimated BMI. [facility] ELECTROLYTES Creatinine Lvl 0.6 2 0.50 - 1.40 03/04/2019 [facility] ELECTROLYTES Potassium Lvl 3.6 3.5 - 5.1 03/04/2019 [facility] ELECTROLYTES Sodium Lvl 143 135 - 145 03/04/2019 [facility] ELECTROLYTES Chloride Lvl 110 95 - 109 03/04/2019 [facility] ELECTROLYTES CO2 28 24 - 32 03/04/2019 [facility] ELECTROLYTES Calcium Lvl 8.2 8.5 - 10.5 03/04/2019 [facility] ELECTROLYTES BUN 7 7 - 22 03/04/2019 [facility] ELECTROLYTES Glucose Lvl 103 70 - 99 03/04/2019 [facility] HEMATOLOGY Hgb 12.5 12.0 - 16.0 03/04/2019 [facility] HEMATOLOGY MCH 29.7 27.0 - 31.0 03/04/2019 [facility] HEMATOLOGY MCV 86.9 80.0 - 98.0 03/04/2019 [facility] HEMATOLOGY Hct 36.5 36.0 - 48.0 03/04/2019 [facility] HEMATOLOGY Platelet 195 133 - 450 03/04/2019 [facility] HEMATOLOGY RDW 13.9 11.5 - 14.5 03/04/2019 [facility] HEMATOLOGY MPV 8.9 7.4 - 10.4 03/04/2019 [facility] HEMATOLOGY WBC 9.0 3.7 - 10.4 03/04/2019 [facility] HEMATOLOGY MCHC 34.2 32.0 - 36.0 03/04/2019 [facility] HEMATOLOGY RBC 4.20 4.20 - 5.40 03/04/2019 [facility] HEMATOLOGY Neutrophils # 5.2 1.5 - 8.1 03/04/2019 [facility] HEMATOLOGY Lymphocytes # 2.6 1.0 - 5.5 03/04/2019 [facility] HEMATOLOGY Monocytes # 0.8 0.0 - 0.8 03/04/2019 [facility] HEMATOLOGY Eosinophils # 0.4 0.0 - 0.5 03/04/2019 [facility] HEMATOLOGY Segs 57.6 45.0 - 75.0 03/04/2019 [facility] HEMATOLOGY Lymphocytes 28.4 20.0 - 40.0 03/04/2019 [facility] HEMATOLOGY Monocytes 8.8 2.0 - 12.0 03/04/2019 [facility] HEMATOLOGY Eosinophils 4.1 0.0 - 4.0 03/04/2019 [facility] HEMATOLOGY Basophils 1.1 0.0 - 1.0 03/04/2019 [facility] HEMATOLOGY Basophils # 0.1 0.0 - 0.2 03/04/2019 [facility] CIPROFLOXACIN:SUSC:PT:ISOLATE:ORDQN:MONISHA Gram Stain Report Few WBC's Rare Gram Positive Cocci 03/02/2019 [facility] CIPROFLOXACIN:SUSC:PT:ISOLATE:ORDQN:MONISHA Culture: Wound/Abscess w/Gram Stain Many Staphylococcus aureus 03/02/2019 [facility] CIPROFLOXACIN:SUSC:PT:ISOLATE:ORDQN:MONISHA Staphylococcus aureus Staphylococcus aureus 03/02/2019 [facility] TOXICOLOGY Vanco Tr TND 1300 03/02/2019 [facility] TOXICOLOGY Vanco Tr 14.7 03/02/2019 [facility] URINE AND STOOL UA Urobilinogen <=1.0 mg/dL 0.1 - 1.0 03/01/2019 [facility] URINE AND STOOL UA Mucus Few /LPF None Seen /LPF 03/01/2019 [facility] URINE AND STOOL UA Leuk Est Negative (03/01/19 4:13 PM) Negative 03/01/2019 [facility] URINE AND STOOL UA Sq Epi Few /LPF Few /LPF 03/01/2019 [facility] URINE AND STOOL UA Nitrite Negative (03/01/19 4:13 PM) Negative 03/01/2019 [facility] URINE AND STOOL UA RBC 87 0 - 2 03/01/2019 [facility] URINE AND STOOL UA WBC 3 0 - 5 03/01/2019 [facility] URINE AND STOOL UA Bacteria Occasional /HPF None Seen /HPF 03/01/2019 [facility] URINE AND STOOL UA pH 7.0 5.0 - 8.0 03/01/2019 [facility] URINE AND STOOL UA Ketones Negative mg/dL Negative mg/dL 03/01/2019 [facility] URINE AND STOOL UA Protein Negative mg/dL Negative mg/dL 03/01/2019 [facility] URINE AND STOOL UA Glucose Negative mg/dL Negative mg/dL 03/01/2019 [facility] URINE AND STOOL UA Blood Large *ABN* (03/01/19 4:13 PM) Negative 03/01/2019 [facility] URINE AND STOOL UA Bili Negative *NA* (03/01/19 4:13 PM) Negative 03/01/2019 [facility] URINE AND STOOL UA Spec Grav 1.010 <=1.030 03/01/2019 [facility] URINE AND STOOL UA Turbidity Slight *ABN* (03/01/19 4:13 PM) Clear 03/01/2019 [facility] URINE AND STOOL UA Color Yellow *NA* (03/01/19 4:13 PM) Yellow 03/01/2019 [facility] CHEM PANEL Albumin Lvl 3.4 3.5 - 5.0 03/01/2019 [facility] CHEM PANEL Total Protein 7.2 6.4 - 8.4 03/01/2019 [facility] CHEM PANEL Alk Phos 86 39 - 136 03/01/2019 [facility] CHEM PANEL Bili Total 0.5 0.2 - 1.3 03/01/2019 [facility] CHEM PANEL AST 12 0 - 37 03/01/2019 [facility] CHEM PANEL ALT 20 0 - 65 03/01/2019 [facility] CHEM PANEL A/G Ratio 0.9 0.7 - 1.6 03/01/2019 [facility] CHEM PANEL B/C Ratio 16 6 - 25 03/01/2019 [facility] CHEM PANEL Globulin 3.8 2.7 - 4.2 03/01/2019 [facility] HEMATOLOGY INR 1.14 0.85 - 1.17 03/01/2019 [facility] HEMATOLOGY PTT 38.3 22.9 - 35.8 03/01/2019 [facility] HEMATOLOGY PT 14.4 12.0 - 14.7 03/01/2019 [facility] CHEM PANEL Lactic Acid Lvl 1.4 0.5 - 2.2 03/01/2019 [facility] ENDOCRINOLOGY hCG Tot <1 03/01/2019 [facility] TOXICOLOGY Vanco Tr 10.8 01/31/2019 [facility] TOXICOLOGY Vanco Tr TND 2000 01/31/2019 [facility] BACTERIAL - SEROLOGY MRSA by PCR Negative (01/30/19 11:23 AM) 01/30/2019 [facility] TOXICOLOGY Vanco Tr 18.9 01/29/2019 [facility] TOXICOLOGY Vanco Tr TND 1330 01/29/2019 [facility] HEMATOLOGY MCH 28.5 27.0 - 31.0 01/29/2019 [facility] HEMATOLOGY MCV 87.8 80.0 - 98.0 01/29/2019 [facility] HEMATOLOGY Hct 38.5 36.0 - 48.0 01/29/2019 [facility] HEMATOLOGY Hgb 12.5 12.0 - 16.0 01/29/2019 [facility] HEMATOLOGY RBC 4.38 4.20 - 5.40 01/29/2019 [facility] HEMATOLOGY Platelet 244 133 - 450 01/29/2019 [facility] HEMATOLOGY MCHC 32.5 32.0 - 36.0 01/29/2019 [facility] HEMATOLOGY MPV 8.5 7.4 - 10.4 01/29/2019 [facility] HEMATOLOGY RDW 13.5 11.5 - 14.5 01/29/2019 [facility] HEMATOLOGY WBC 8.1 3.7 - 10.4 01/29/2019 [facility] TOXICOLOGY Vanco Tr 18.3 01/28/2019 [facility] TOXICOLOGY Vanco Tr TND 1230 01/28/2019 [facility] CEFEPIME:SUSC:PT:ISOLATE:ORDQN:MONISHA G jade Stain Report Rare Gram Negative Rods No WBC's Seen 01/28/2019 [facility] CEFEPIME:SUSC:PT:ISOLATE:ORDQN:MONISHA Culture: Wound/Abscess w/Gram Stain Moderate Proteus mirabilis Moderate Klebsiella pneumoniae ssp pneumoniae Few Staphylococcus aureus 01/28/2019 [facility] CEFEPIME:SUSC:PT:ISOLATE:ORDQN:MONISHA Staphylococcus aureus Staphylococcus aureus 01/28/2019 [facility] CEFEPIME:SUSC:PT:ISOLATE:ORDQN:MONISHA Klebsiella pneumoniae ssp pneumoniae Klebsiella pneumoniae ssp pneumoniae 01/28/2019 [facility] CEFEPIME:SUSC:PT:ISOLATE:ORDQN:MONISHA P roteus mirabilis Proteus mirabilis 01/28/2019 [facility] URINE AND STOOL UA Leuk Est Negative (01/27/19 6:31 AM) Negative 01/27/2019 [facility] URINE AND STOOL UA WBC 2 0 - 5 01/27/2019 [facility] URINE AND STOOL UA RBC 5 0 - 2 01/27/2019 [facility] URINE AND STOOL UA Sq Epi Moderate /LPF Few /LPF 01/27/2019 [facility] URINE AND STOOL UA Protein Negative mg/dL Negative mg/dL 01/27/2019 [facility] URINE AND STOOL UA pH 6.0 5.0 - 8.0 01/27/2019 [facility] URINE AND STOOL UA Color Yellow *NA* (01/27/19 6:31 AM) Yellow 01/27/2019 [facility] URINE AND STOOL UA Spec Grav 1.028 <=1.030 01/27/2019 [facility] URINE AND STOOL UA Turbidity Slight *ABN* (01/27/19 6:31 AM) Clear 01/27/2019 [facility] URINE AND STOOL UA Mucus Few /LPF None Seen /LPF 01/27/2019 [facility] URINE AND STOOL UA Bacteria Occasional /HPF None Seen /HPF 01/27/2019 [facility] URINE AND STOOL UA Glucose Negative mg/dL Negative mg/dL 01/27/2019 [facility] URINE AND STOOL UA Blood Negative (01/27/19 6:31 AM) Negative 01/27/2019 [facility] URINE AND STOOL UA Bili Negative *NA* (01/27/19 6:31 AM) Negative 01/27/2019 [facility] URINE AND STOOL UA Nitrite Negative (01/27/19 6:31 AM) Negative 01/27/2019 [facility] URINE AND STOOL UA Ketones Negative mg/dL Negative mg/dL 01/27/2019 [facility] URINE AND STOOL UA Urobilinogen <=1.0 mg/dL 0.1 - 1.0 01/27/2019 [facility] URINE CHEM U Preg Negat theron (01/27/19 6:31 AM) Negative 01/27/2019 [facility] CHEM PANEL Lactic Acid Lvl 1.5 0.5 - 2.2 01/27/2019 [facility] CHEM PANEL B/C Ratio 19 6 - 25 01/27/2019 [facility] CHEM PANEL Globulin 3.9 2.7 - 4.2 01/27/2019 [facility] CHEM PANEL A/G Ratio 0.9 0.7 - 1.6 01/27/2019 [facility] CHEM PANEL AGAP 13.9 10.0 - 20.0 01/27/2019 [facility] CHEM PANEL eGFR 106 01/27/2019 Result Comment: [...] should be multiplied by the estimated BMI. [facility] CHEM PANEL AST 18 0 - 37 01/27/2019 [facility] CHEM PANEL Alk Phos 92 39 - 136 01/27/2019 [facility] CHEM PANEL Potassium Lvl 3.9 3.5 - 5.1 01/27/2019 [facility] CHEM PANEL Bili Total 0.3 0.2 - 1.3 01/27/2019 [facility] CHEM PANEL Albumin Lvl 3.6 3.5 - 5.0 01/27/2019 [facility] CHEM PANEL ALT 24 0 - 65 01/27/2019 [facility] CHEM PANEL Total Protein 7.5 6.4 - 8.4 01/27/2019 [facility] CHEM PANEL Chloride Lvl 108 95 - 109 01/27/2019 [facility] CHEM PANEL CO2 24 24 - 32 01/27/2019 [facility] CHEM PANEL Sodium Lvl 142 135 - 145 01/27/2019 [facility] CHEM PANEL Calcium Lvl 8.5 8.5 - 10.5 01/27/2019 [facility] CHEM PANEL BUN 14 7 - 22 01/27/2019 [facility] CHEM PANEL Creatinine Lvl 0.75 0.50 - 1.40 01/27/2019 [facility] CHEM PANEL Glucose Lvl 91 70 - 99 01/27/2019 [facility] HEMATOLOGY Eosinophils 6.5 0.0 - 4.0 01/27/2019 [facility] HEMATOLOGY Monocytes 8.1 2.0 - 12.0 01/27/2019 [facility] HEMATOLOGY Basophils 0.9 0.0 - 1.0 01/27/2019 [facility] HEMATOLOGY Lymphocytes # 2.9 1.0 - 5.5 01/27/2019 [facility] HEMATOLOGY Neutrophils # 7.4 1.5 - 8.1 01/27/2019 [facility] HEMATOLOGY Monocytes # 1.0 0.0 - 0.8 01/27/2019 [facility] HEMATOLOGY Eosinophils # 0.8 0.0 - 0.5 01/27/2019 [facility] HEMATOLOGY Basophils # 0.1 0.0 - 0.2 01/27/2019 [facility] HEMATOLOGY Lymphocytes 23.6 20.0 - 40.0 01/27/2019 [facility] HEMATOLOGY Segs 60.9 45.0 - 75.0 01/27/2019 [facility] HEMATOLOGY WBC 12.2 3.7 - 10.4 01/27/2019 [facility] MCHC 32.4 32.0 - 36.0 01/27/2019 [facility] RDW 13.7 11.5 - 14.5 01/27/2019 [facility] MCH 28.5 27.0 - 31.0 01/27/2019 [facility] MCV 88.2 80.0 - 98.0 01/27/2019 [facility] Hct 41.4 36.0 - 48.0 01/27/2019 [facility] RBC 4.69 4.20 - 5.40 01/27/2019 [facility] Hgb 13.4 12.0 - 16.0 01/27/2019 [facility] MPV 8.8 7.4 - 10.4 01/27/2019 [facility] Platelet 253 133 - 450 01/27/2019 [facility] CHEM PANEL Lactic Acid Lvl 1.0 0.5 - 2.2 12/13/2018 [facility] ELECTROLYTES Sodium Lvl 140 135 - 145 12/13/2018 [facility] ELECTROLYTES Creatinine Lvl 1.0 4 0.50 - 1.40 12/13/2018 [facility] ELECTROLYTES eGFR 71 12/13/2018 Result Comment: [...] should be multiplied by the estimated BMI. [facility] ELECTROLYTES Glucose Lvl 88 70 - 99 12/13/2018 [facility] ELECTROLYTES Potassium Lvl 3.4 3.5 - 5.1 12/13/2018 [facility] ELECTROLYTES BUN 15 7 - 22 12/13/2018 [facility] ELECTROLYTES Alk Phos 79 39 - 136 12/13/2018 [facility] ELECTROLYTES Albumin Lvl 3.2 3.5 - 5.0 12/13/2018 [facility] ELECTROLYTES AST 15 0 - 37 12/13/2018 [facility] ELECTROLYTES Bili Total 0.2 0.2 - 1.3 12/13/2018 [facility] ELECTROLYTES ALT 24 0 - 65 12/13/2018 [facility] ELECTROLYTES Chloride Lvl 105 95 - 109 12/13/2018 [facility] ELECTROLYTES CO2 29 24 - 32 12/13/2018 [facility] ELECTROLYTES Calcium Lvl 8.8 8.5 - 10.5 12/13/2018 [facility] ELECTROLYTES Total Protein 7.7 6.4 - 8.4 12/13/2018 [facility] ELECTROLYTES B/C Ratio 14 6 - 25 12/13/2018 [facility] ELECTROLYTES AGAP 9.4 10.0 - 20.0 12/13/2018 [facility] ELECTROLYTES A/G Ratio 0.7 0.7 - 1.6 12/13/2018 [facility] ELECTROLYTES Globulin 4.5 2.7 - 4.2 12/13/2018 [facility] HEMATOLOGY Basophils # 0.1 0.0 - 0.2 12/13/2018 [facility] HEMATOLOGY Lymphocytes # 2.6 1.0 - 5.5 12/13/2018 [facility] HEMATOLOGY Monocytes # 0.8 0.0 - 0.8 12/13/2018 [facility] HEMATOLOGY Eosinophils # 0.5 0.0 - 0.5 12/13/2018 [facility] HEMATOLOGY Eosinophils 4.0 0.0 - 4.0 12/13/2018 [facility] HEMATOLOGY Monocytes 7.1 2.0 - 12.0 12/13/2018 [facility] HEMATOLOGY Lymphocytes 22.7 20.0 - 40.0 12/13/2018 [facility] HEMATOLOGY Basophils 1.2 0.0 - 1.0 12/13/2018 [facility] HEMATOLOGY Neutrophils # 7.3 1.5 - 8.1 12/13/2018 [facility] HEMATOLOGY Segs 65.0 45.0 - 75.0 12/13/2018 [facility] HEMATOLOGY RDW 13.3 11.5 - 14.5 12/13/2018 [facility] HEMATOLOGY MCHC 33.7 32.0 - 36.0 12/13/2018 [facility] HEMATOLOGY Platelet 314 133 - 450 12/13/2018 [facility] HEMATOLOGY MPV 7.7 7.4 - 10.4 12/13/2018 [facility] HEMATOLOGY RBC 4.45 4.20 - 5.40 12/13/2018 [facility] HEMATOLOGY MCH 28.9 27.0 - 31.0 12/13/2018 [facility] HEMATOLOGY MCV 85.7 80.0 - 98.0 12/13/2018 [facility] HEMATOLOGY WBC 11.3 3.7 - 10.4 12/13/2018 [facility] HEMATOLOGY Hgb 12.9 12.0 - 16.0 12/13/2018 [facility] HEMATOLOGY Hct 38.1 36.0 - 48.0 12/13/2018 [facility] TOXICOLOGY Vanco Tr TND 2100 12/09/2018 [facility] TOXICOLOGY Vanco Tr 16.7 12/09/2018 [facility] CHEM PANEL eGFR 93 12/08/2018 Result [...] should be multiplied by the estimated BMI. [place] CHEM PANEL Sodium Lvl 143 135 - 145 12/08/2018 [facility] CHEM PANEL Creatinine Lvl 0.83 0.50 - 1.40 12/08/2018 [facility] BUN 6 7 - 22 12/08/2018 [place] CHEM PANEL Glucose Lvl 98 70 - 99 12/08/2018 [place] CHEM PANEL CO2 29 24 - 32 12/08/2018 [place] CHEM PANEL Chloride Lvl 106 95 - 109 12/08/2018 [place] CHEM PANEL Potassium Lvl 3.8 3.5 - 5.1 12/08/2018 [facility] Calcium Lvl 8.8 8.5 - 10.5 12/08/2018 [facility] CHEM PANEL AGAP 11.8 10.0 - 20.0 12/08/2018 [facility] HEMATOLOGY Monocytes 8.5 2.0 - 12.0 12/08/2018 [facility] HEMATOLOGY Segs 61.1 45.0 - 75.0 12/08/2018 [facility] HEMATOLOGY Eosinophils 5.9 0.0 - 4.0 12/08/2018 [facility] HEMATOLOGY Lymphocytes 23.5 20.0 - 40.0 12/08/2018 [facility] HEMATOLOGY Basophils # 0.1 0.0 - 0.2 12/08/2018 [facility] HEMATOLOGY Eosinophils # 0.6 0.0 - 0.5 12/08/2018 [facility] HEMATOLOGY Monocytes # 0.8 0.0 - 0.8 12/08/2018 [facility] HEMATOLOGY Lymphocytes # 2.3 1.0 - 5.5 12/08/2018 [facility] HEMATOLOGY Basophils 1.0 0.0 - 1.0 12/08/2018 [facility] HEMATOLOGY Neutrophils # 6.0 1.5 - 8.1 12/08/2018 [facility] HEMATOLOGY MPV 7.8 7.4 - 10.4 12/08/2018 [facility] HEMATOLOGY Platelet 278 133 - 450 12/08/2018 [facility] HEMATOLOGY RDW 13.1 11.5 - 14.5 12/08/2018 [facility] HEMATOLOGY MCHC 33.6 32.0 - 36.0 12/08/2018 [facility] HEMATOLOGY Hct 35.3 36.0 - 48.0 12/08/2018 [facility] HEMATOLOGY MCV 86.2 80.0 - 98.0 12/08/2018 [facility] HEMATOLOGY WBC 9.7 3.7 - 10.4 12/08/2018 [facility] HEMATOLOGY MCH 28.9 27.0 - 31.0 12/08/2018 [facility] HEMATOLOGY RBC 4.10 4.20 - 5.40 12/08/2018 [facility] HEMATOLOGY Hgb 11.9 12.0 - 16.0 12/08/2018 [facility] TOXICOLOGY Vanco Tr TND mar 12/07/2018 [facility] TOXICOLOGY Vanco Tr 15.3 12/07/2018 [facility] ELECTROLYTES AGAP 9.8 10.0 - 20.0 12/07/2018 [facility] ELECTROLYTES eGFR 116 12/07/2018 Result Comment: [...] should be multiplied by the estimated BMI. [facility] ELECTROLYTES Chloride Lvl 106 95 - 109 12/07/2018 [facility] ELECTROLYTES Potassium Lvl 3.8 3.5 - 5.1 12/07/2018 [facility] ELECTROLYTES Calcium Lvl 8.1 8.5 - 10.5 12/07/2018 [facility] ELECTROLYTES CO2 31 24 - 32 12/07/2018 [facility] ELECTROLYTES Sodium Lvl 143 135 - 145 12/07/2018 [facility] ELECTROLYTES Creatinine Lvl 0.6 9 0.50 - 1.40 12/07/2018 [facility] ELECTROLYTES BUN 6 7 - 22 12/07/2018 [facility] ELECTROLYTES Glucose Lvl 116 70 - 99 12/07/2018 [facility] HEMATOLOGY MCV 87.1 80.0 - 98.0 12/07/2018 [facility] HEMATOLOGY Hct 34.8 36.0 - 48.0 12/07/2018 [facility] HEMATOLOGY MCH 28.8 27.0 - 31.0 12/07/2018 [facility] HEMATOLOGY Hgb 11.5 12.0 - 16.0 12/07/2018 [facility] HEMATOLOGY MPV 7.7 7.4 - 10.4 12/07/2018 [facility] HEMATOLOGY RDW 13.3 11.5 - 14.5 12/07/2018 [facility] MCHC 33.1 32.0 - 36.0 12/07/2018 [facility] Platelet 274 133 - 450 12/07/2018 [facility] RBC 4.00 4.20 - 5.40 12/07/2018 [facility] HEMATOLOGY WBC 9.8 3.7 - 10.4 12/07/2018 [facility] HEMATOLOGY Monocytes # 0.8 0.0 - 0.8 12/07/2018 [facility] HEMATOLOGY Eosinophils # 0.6 0.0 - 0.5 12/07/2018 [facility] HEMATOLOGY Basophils # 0.1 0.0 - 0.2 12/07/2018 [facility] HEMATOLOGY Segs 61.0 45.0 - 75.0 12/07/2018 [facility] Monocytes 7.8 2.0 - 12.0 12/07/2018 [facility] HEMATOLOGY Basophils 1.1 0.0 - 1.0 12/07/2018 [facility] Eosinophils 6.5 0.0 - 4.0 12/07/2018 [facility] Lymphocytes 23.6 20.0 - 40.0 12/07/2018 [facility] Lymphocytes # 2.3 1.0 - 5.5 12/07/2018 [facility] Neutrophils # 6.0 1.5 - 8.1 12/07/2018 [facility] AMPICILLIN+SULBACTAM:SUSC:PT:ISOLATE:ORDQN:MONISHA Gram Stain Report Rare WBC's No Organisms Seen 12/06/2018 [facility] AMPICILLIN+SULBACTAM:SUSC:PT:ISOLATE:ORDQN:MONISHA Culture: Wound/Abscess w/Gram Stain Many Staphylococcus aureus . Sensitivity Pending 12/06/2018 [facility] AMPICILLIN+SULBACTAM:SUSC:PT:ISOLATE:ORDQN:MONISHA Staphylococcus aureus Staphylococcus aureus 12/06/2018 [facility] Culture: Anaerobic No Anaerobes Is olated After 4 Days 12/06/2018 [facility] TOXICOLOGY Vanco Tr TND 0930 12/06/2018 [facility] TOXICOLOGY Vanco Tr 14.8 12/06/2018 [facility] CHEM PANEL eGFR 129 12/06/2018 Result [...] should be multiplied by the estimated BMI. [facility] CHEM PANEL BUN 8 7 - 22 12/06/2018 [facility] CHEM PANEL Creatinine Lvl 0.49 0.50 - 1.40 12/06/2018 [facility] CHEM PANEL Calcium Lvl 8.2 8.5 - 10.5 12/06/2018 [facility] CHEM PANEL Potassium Lvl 3.8 3.5 - 5.1 12/06/2018 [facility] CHEM PANEL Sodium Lvl 139 135 - 145 12/06/2018 [facility] CHEM PANEL Chloride Lvl 106 95 - 109 12/06/2018 [facility] CHEM PANEL CO2 27 24 - 32 12/06/2018 [facility] CHEM PANEL Glucose Lvl 99 70 - 99 12/06/2018 [facility] CHEM PANEL AGAP 9.8 10.0 - 20.0 12/06/2018 [facility] HEMATOLOGY Basophils # 0.1 0.0 - 0.2 12/06/2018 [facility] HEMATOLOGY Basophils 1.0 0.0 - 1.0 12/06/2018 [facility] HEMATOLOGY Lymphocytes # 2.1 1.0 - 5.5 12/06/2018 [facility] HEMATOLOGY Neutrophils # 4.8 1.5 - 8.1 12/06/2018 [facility] HEMATOLOGY Eosinophils # 0.5 0.0 - 0.5 12/06/2018 [facility] HEMATOLOGY Monocytes # 0.8 0.0 - 0.8 12/06/2018 [facility] HEMATOLOGY Monocytes 9.8 2.0 - 12.0 12/06/2018 [facility] HEMATOLOGY Lymphocytes 25.0 20.0 - 40.0 12/06/2018 [facility] HEMATOLOGY Eosinophils 6.3 0.0 - 4.0 12/06/2018 [facility] HEMATOLOGY Segs 57.9 45.0 - 75.0 12/06/2018 [facility] HEMATOLOGY INR 1.09 0.85 - 1.17 12/06/2018 [facility] HEMATOLOGY PT 13.9 12.0 - 14.7 12/06/2018 [facility] HEMATOLOGY MPV 8.3 7.4 - 10.4 12/06/2018 [facility] HEMATOLOGY RDW 13.2 11.5 - 14.5 12/06/2018 [facility] HEMATOLOGY MCHC 33.0 32.0 - 36.0 12/06/2018 [facility] HEMATOLOGY Platelet 240 133 - 450 12/06/2018 [facility] HEMATOLOGY RBC 3.96 4.20 - 5.40 12/06/2018 [facility] HEMATOLOGY WBC 8.4 3.7 - 10.4 12/06/2018 [facility] HEMATOLOGY MCH 28.6 27.0 - 31.0 12/06/2018 [facility] HEMATOLOGY MCV 86.6 80.0 - 98.0 12/06/2018 [facility] HEMATOLOGY Hgb 11.3 12.0 - 16.0 12/06/2018 [facility] HEMATOLOGY Hct 34.3 36.0 - 48.0 12/06/2018 [facility] TOXICOLOGY Vanco Lvl 15.3 12/05/2018 [facility] CHEM PANEL Magnesium Lvl 1.9 1.8 - 2.4 12/04/2018 [facility] CHEM PANEL Bili Total 0.7 0.2 - 1.3 12/04/2018 [facility] CHEM PANEL Alk Phos 72 39 - 136 12/04/2018 [facility] CHEM PANEL Total Protein 6.9 6.4 - 8.4 12/04/2018 [facility] CHEM PANEL AST 13 0 - 37 12/04/2018 [facility] CHEM PANEL ALT 29 0 - 65 12/04/2018 [facility] CHEM PANEL Albumin Lvl 2.8 3.5 - 5.0 12/04/2018 [facility] CHEM PANEL Globulin 4.1 2.7 - 4.2 12/04/2018 [facility] CHEM PANEL A/G Ratio 0.7 0.7 - 1.6 12/04/2018 [facility] CHEM PANEL B/C Ratio 14 6 - 25 12/04/2018 [facility] HEMATOLOGY PTT 44.5 22.9 - 35.8 12/04/2018 [facility] HEMATOLOGY PT 16.0 12.0 - 14.7 12/04/2018 [facility] HEMATOLOGY INR 1.31 0.85 - 1.17 12/04/2018 [facility] CHEM PANEL Lactic Acid Lvl 1.1 0.5 - 2.2 12/04/2018 [facility] CHEM PANEL Lactic Acid Lvl 0.7 0.5 - 2.2 12/03/2018 [facility] ENDOCRINOLOGY S Preg Ne gative *NA* (12/03/18 4:23 PM) Negative 12/03[facility]2018 [facility] [place] [facility] Lactic Acid Lvl 1.0 0.5 - 2.2 10/11/2018 [place] CHEM PANEL B/C Ratio 19 6 - 25 10/11/2018 [facility] [place] AGAP 9.8 10.0 - 20.0 10/11/2018 [facility] [place] Globulin 4.5 2.7 - 4.2 10/11/2018 [facility] [place] [facility] A/G Ratio 0.8 0.7 - 1.6 10/11/2018 [facility] [place] [facility] eGFR 93 10/11/2018 Result Comment: [...] should be multiplied by the estimated BMI. [place] CHEM PANEL ALT 24 0 - 65 10/11/2018 [facility] [place] [facility] AST 17 0 - 37 10/11/2018 [facility] [place] [facility] Alk Phos 81 39 - 136 10/11/2018 [facility] [place] [facility] Bili Total 0.3 0.2 - 1.3 10/11/2018 [facility] [place] [facility] Creatinine Lvl 0.83 0.50 - 1.40 10/11/2018 [place] CHEM PANEL Glucose Lvl 84 70 - 99 10/11/2018 [place] CHEM PANEL BUN 16 7 - 22 10/11/2018 [place] CHEM PANEL Potassium Lvl 3.8 3.5 - 5.1 10/11/2018 [facility] CHEM PANEL Sodium Lvl 139 135 - 145 10/11/2018 [facility] CHEM PANEL CO2 26 24 - 32 10/11/2018 [facility] CHEM PANEL Calcium Lvl 8.5 8.5 - 10.5 10/11/2018 [facility] CHEM PANEL Chloride Lvl 107 95 - 109 10/11/2018 [facility] CHEM PANEL Total Protein 8.0 6.4 - 8.4 10/11/2018 [facility] CHEM PANEL Albumin Lvl 3.5 3.5 - 5.0 10/11/2018 [facility] HEMATOLOGY Monocytes # 0.8 0.0 - 0.8 10/11/2018 [facility] HEMATOLOGY Basophils # 0.1 0.0 - 0.2 10/11/2018 [facility] HEMATOLOGY Eosinophils # 0.3 0.0 - 0.5 10/11/2018 [facility] HEMATOLOGY Monocytes 7.7 2.0 - 12.0 10/11/2018 [facility] HEMATOLOGY Eosinophils 3.0 0.0 - 4.0 10/11/2018 [facility] HEMATOLOGY Basophils 0.6 0.0 - 1.0 10/11/2018 [facility] HEMATOLOGY Neutrophils # 6.8 1.5 - 8.1 10/11/2018 [facility] HEMATOLOGY Lymphocytes # 2.4 1.0 - 5.5 10/11/2018 [facility] HEMATOLOGY Lymphocytes 22.9 20.0 - 40.0 10/11/2018 [facility] HEMATOLOGY Segs 65.8 45.0 - 75.0 10/11/2018 [facility] HEMATOLOGY RDW 13.3 11.5 - 14.5 10/11/2018 [facility] HEMATOLOGY MCHC 32.5 32.0 - 36.0 10/11/2018 [facility] HEMATOLOGY MCH 28.8 27.0 - 31.0 10/11/2018 [facility] HEMATOLOGY Hct 42.6 36.0 - 48.0 10/11/2018 [facility] HEMATOLOGY Hgb 13.8 12.0 - 16.0 10/11/2018 [facility] HEMATOLOGY WBC 10.3 3.7 - 10.4 10/11/2018 [facility] HEMATOLOGY MCV 88.5 80.0 - 98.0 10/11/2018 [facility] HEMATOLOGY RBC 4.81 4.20 - 5.40 10/11/2018 [facility] HEMATOLOGY Platelet 272 133 - 450 10/11/2018 [facility] HEMATOLOGY MPV 8.7 7.4 - 10.4 10/11/2018 [facility] CHEM PANEL Lactic Acid Lvl 1.5 0.5 - 2.2 09/06/2018 [facility] CHEM PANEL Bili Total 0.5 0.2 - 1.3 09/06/2018 [facility] CHEM PANEL AST 15 0 - 37 09/06/2018 [facility] CHEM PANEL Alk Phos 74 39 - 136 09/06/2018 [facility] CHEM PANEL eGFR 72 09/06/2018 Result Comment: [...] should be multiplied by the estimated BMI. [facility] CHEM PANEL Creatinine Lvl 1.03 0.50 - 1.40 09/06/2018 [facility] CHEM PANEL Sodium Lvl 140 135 - 145 09/06/2018 [facility] CHEM PANEL Potassium Lvl 3.6 3.5 - 5.1 09/06/2018 [facility] CHEM PANEL Total Protein 7.4 6.4 - 8.4 09/06/2018 [facility] CHEM PANEL Albumin Lvl 3.3 3.5 - 5.0 09/06/2018 [facility] CHEM PANEL ALT 27 0 - 65 09/06/2018 [facility] CHEM PANEL Glucose Lvl 120 70 - 99 09/06/2018 [facility] CHEM PANEL BUN 11 7 - 22 09/06/2018 [facility] CHEM PANEL Calcium Lvl 8.3 8.5 - 10.5 09/06/2018 [facility] CHEM PANEL Chloride Lvl 109 95 - 109 09/06/2018 [facility] CHEM PANEL CO2 24 24 - 32 09/06/2018 [facility] CHEM PANEL A/G Ratio 0.8 0.7 - 1.6 09/06/2018 [facility] CHEM PANEL AGAP 10.6 10.0 - 20.0 09/06/2018 [facility] CHEM PANEL B/C Ratio 11 6 - 25 09/06/2018 [facility] CHEM PANEL Globulin 4.1 2.7 - 4.2 09/06/2018 [facility] CHEM PANEL Lipase Lvl 200 73 - 393 09/06/2018 [facility] ENDOCRINOLOGY S Preg Ne gative *NA* (09/06/18 12:46 AM) Negative 09/06/2018 [facility] HEMATOLOGY Platelet 230 133 - 450 09/06/2018 [facility] HEMATOLOGY MPV 8.3 7.4 - 10.4 09/06/2018 [facility] MCHC 33.1 32.0 - 36.0 09/06/2018 [facility] HEMATOLOGY RDW 13.7 11.5 - 14.5 09/06/2018 [facility] MCH 28.5 27.0 - 31.0 09/06/2018 [facility] HEMATOLOGY RBC 4.70 4.20 - 5.40 09/06/2018 [facility] HEMATOLOGY Hgb 13.4 12.0 - 16.0 09/06/2018 [facility] HEMATOLOGY WBC 12.6 3.7 - 10.4 09/06/2018 [facility] HEMATOLOGY Hct 40.5 36.0 - 48.0 09/06/2018 [facility] HEMATOLOGY MCV 86.2 80.0 - 98.0 09/06/2018 [facility] HEMATOLOGY Basophils # 0.1 0.0 - 0.2 09/06/2018 [facility] HEMATOLOGY Eosinophils # 0.4 0.0 - 0.5 09/06/2018 [facility] HEMATOLOGY Monocytes # 0.8 0.0 - 0.8 09/06/2018 [facility] HEMATOLOGY Neutrophils # 8.4 1.5 - 8.1 09/06/2018 [facility] HEMATOLOGY Lymphocytes # 2.9 1.0 - 5.5 09/06/2018 [facility] HEMATOLOGY Eosinophils 3.6 0.0 - 4.0 09/06/2018 [facility] HEMATOLOGY Basophils 0.7 0.0 - 1.0 09/06/2018 [facility] HEMATOLOGY Lymphocytes 22.9 20.0 - 40.0 09/06/2018 [facility] HEMATOLOGY Monocytes 6.3 2.0 - 12.0 09/06/2018 [facility] HEMATOLOGY Segs 66.5 45.0 - 75.0 09/06/2018 [...] Negative *NA* (09/06/18 12:46 AM) Negative 09/06/2018 [facility] URINE AND STOOL UA Bacteria Occasional /HPF None Seen /HPF 09/06/[address] [facility] [address] URINE AND STOOL UA Bili Negative *NA* (09/06/18 12:46 AM) Negative 09/06/2018 [facility] URINE AND STOOL UA Urobilinogen <=1.0 mg/dL 0.1 - 1.0 09/06/2018 [facility] [address] URINE AND STOOL UA Blood Large *ABN* (09/06/18 12:46 AM) Negative 09/06/2018 [facility] CHEM PANEL Magnesium Lvl 1.9 1.8 - 2.4 08/28/2018 [facility] ELECTROLYTES AGAP 11.1 10.0 - 20.0 08/28/2018 [facility] ELECTROLYTES eGFR 116 08/28/2018 Result Comment: [...] should be multiplied by the estimated BMI. [facility] ELECTROLYTES Calcium Lvl 8.4 8.5 - 10.5 08/28/2018 [facility] ELECTROLYTES BUN 13 7 - 22 08/28/2018 [facility] ELECTROLYTES Sodium Lvl 137 135 - 145 08/28/2018 [facility] ELECTROLYTES Creatinine Lvl 0.6 9 0.50 - 1.40 08/28/2018 [facility] ELECTROLYTES Potassium Lvl 4.1 3.5 - 5.1 08/28/2018 [facility] ELECTROLYTES CO2 25 24 - 32 08/28/2018 [facility] ELECTROLYTES Chloride Lvl 105 95 - 109 08/28/2018 [facility] ELECTROLYTES Glucose Lvl 105 70 - 99 08/28/2018 [facility] HEMATOLOGY INR 1.01 0.85 - 1.17 08/28/2018 [facility] HEMATOLOGY PTT 33.7 22.9 - 35.8 08/28/2018 [facility] HEMATOLOGY PT 13.1 12.0 - 14.7 08/28/2018 [facility] HEMATOLOGY Lymphocytes 26.9 20.0 - 40.0 08/28/2018 [facility] Lymphocytes # 2.1 1.0 - 5.5 08/28/2018 [facility] HEMATOLOGY Eosinophils 6.7 0.0 - 4.0 08/28/2018 [facility] HEMATOLOGY Monocytes 9.3 2.0 - 12.0 08/28/2018 [facility] HEMATOLOGY Segs 56.2 45.0 - 75.0 08/28/2018 [facility] Monocytes # 0.7 0.0 - 0.8 08/28/2018 [facility] HEMATOLOGY Eosinophils # 0.5 0.0 - 0.5 08/28/2018 [facility] HEMATOLOGY Neutrophils # 4.3 1.5 - 8.1 08/28/2018 [facility] HEMATOLOGY Basophils 0.9 0.0 - 1.0 08/28/2018 [facility] HEMATOLOGY Basophils # 0.1 0.0 - 0.2 08/28/2018 [facility] MPV 8.1 7.4 - 10.4 08/28/2018 [facility] RDW 13.4 11.5 - 14.5 08/28/2018 [facility] HEMATOLOGY Platelet 233 133 - 450 08/28/2018 [facility] HEMATOLOGY MCHC 33.2 32.0 - 36.0 08/28/2018 [facility] HEMATOLOGY MCV 87.4 80.0 - 98.0 08/28/2018 [facility] MCH 29.0 27.0 - 31.0 08/28/2018 [facility] Hct 41.5 36.0 - 48.0 08/28/2018 [facility] HEMATOLOGY WBC 7.7 3.7 - 10.4 08/28/2018 [facility] HEMATOLOGY RBC 4.74 4.20 - 5.40 08/28/2018 [facility] HEMATOLOGY Hgb 13.8 12.0 - 16.0 08/28/2018 [facility] HEMATOLOGY PT 12.9 12.0 - 14.7 08/28/2018 [facility] HEMATOLOGY INR 0.99 0.85 - 1.17 08/28/2018 [facility] CHEM PANEL Magnesium Lvl 2.1 1.8 - 2.4 08/27/2018 [facility] ELECTROLYTES Chloride Lvl 105 95 - 109 08/27/2018 [facility] ELECTROLYTES Potassium Lvl 4.1 3.5 - 5.1 08/27/2018 [facility] ELECTROLYTES Sodium Lvl 141 135 - 145 08/27/2018 [facility] ELECTROLYTES BUN 12 7 - 22 08/27/2018 [facility] ELECTROLYTES Glucose Lvl 90 70 - 99 08/27/2018 [facility] ELECTROLYTES Creatinine Lvl 0.6 2 0.50 - 1.40 08/27/2018 [facility] ELECTROLYTES Calcium Lvl 8.4 8.5 - 10.5 08/27/2018 [facility] ELECTROLYTES CO2 28 24 - 32 08/27/2018 [facility] ELECTROLYTES eGFR 119 08/27/2018 Result Comment: [...] should be multiplied by the estimated BMI. [facility] ELECTROLYTES AGAP 12.1 10.0 - 20.0 08/27/2018 [facility] HEMATOLOGY WBC 7.7 3.7 - 10.4 08/27/2018 [facility] HEMATOLOGY Hgb 13.2 12.0 - 16.0 08/27/2018 [facility] RBC 4.56 4.20 - 5.40 08/27/2018 [facility] HEMATOLOGY Hct 39.0 36.0 - 48.0 08/27/2018 [facility] HEMATOLOGY RDW 13.4 11.5 - 14.5 08/27/2018 [facility] MCHC 33.9 32.0 - 36.0 08/27/2018 [facility] MCH 28.9 27.0 - 31.0 08/27/2018 [facility] Platelet 254 133 - 450 08/27/2018 [facility] MCV 85.4 80.0 - 98.0 08/27/2018 [facility] MPV 8.4 7.4 - 10.4 08/27/2018 [facility] Monocytes # 0.9 0.0 - 0.8 08/27/2018 [facility] HEMATOLOGY Eosinophils # 0.5 0.0 - 0.5 08/27/2018 [facility] Basophils # 0.1 0.0 - 0.2 08/27/2018 [facility] Monocytes 11.1 2.0 - 12.0 08/27/2018 [facility] Lymphocytes 24.6 20.0 - 40.0 08/27/2018 [facility] Segs 56.9 45.0 - 75.0 08/27/2018 [facility] HEMATOLOGY Basophils 1.1 0.0 - 1.0 08/27/2018 [facility] HEMATOLOGY Eosinophils 6.3 0.0 - 4.0 08/27/2018 [facility] HEMATOLOGY Neutrophils # 4.4 1.5 - 8.1 08/27/2018 [facility] HEMATOLOGY Lymphocytes # 1.9 1.0 - 5.5 08/27/2018 [facility] TOXICOLOGY Vanco Tr TND 0000 08/27/2018 [facility] TOXICOLOGY Vanco Tr 13.1 08/27/2018 [facility] CHEM PANEL Magnesium Lvl 1.9 1.8 - 2.4 08/26/2018 [facility] CHEM PANEL eGFR 123 08/26/2018 Result [...] should be multiplied by the estimated BMI. [place] CHEM PANEL Chloride Lvl 106 95 - 109 08/26/2018 [place] CHEM PANEL CO2 27 24 - 32 08/26/2018 [facility] CHEM PANEL BUN 12 7 - 22 08/26/2018 [facility] [place] Calcium Lvl 8.0 8.5 - 10.5 08/26/2018 [facility] [place] [facility] Potassium Lvl 4.0 3.5 - 5.1 08/26/2018 [facility] [place] [facility] Sodium Lvl 140 135 - 145 08/26/2018 [facility] CHEM PANEL Creatinine Lvl 0.56 0.50 - 1.40 08/26/2018 [facility] [place] [facility] Glucose Lvl 89 70 - 99 08/26/2018 [facility] CHEM PANEL AGAP 11.0 10.0 - 20.0 08/26/2018 [facility] HEMATOLOGY Monocytes # 0.8 0.0 - 0.8 08/26/2018 [facility] HEMATOLOGY Eosinophils # 0.5 0.0 - 0.5 08/26/2018 [facility] HEMATOLOGY Basophils # 0.1 0.0 - 0.2 08/26/2018 [facility] HEMATOLOGY Eosinophils 5.7 0.0 - 4.0 08/26/2018 [facility] HEMATOLOGY Lymphocytes 23.6 20.0 - 40.0 08/26/2018 [facility] HEMATOLOGY Monocytes 9.6 2.0 - 12.0 08/26/2018 [facility] HEMATOLOGY Basophils 1.0 0.0 - 1.0 08/26/2018 [facility] HEMATOLOGY Neutrophils # 5.2 1.5 - 8.1 08/26/2018 [facility] Lymphocytes # 2.1 1.0 - 5.5 08/26/2018 [facility] HEMATOLOGY Segs 60.1 45.0 - 75.0 08/26/2018 [facility] HEMATOLOGY RDW 13.3 11.5 - 14.5 08/26/2018 [facility] HEMATOLOGY Platelet 228 133 - 450 08/26/2018 [facility] HEMATOLOGY Hct 38.0 36.0 - 48.0 08/26/2018 [facility] HEMATOLOGY RBC 4.40 4.20 - 5.40 08/26/2018 [facility] HEMATOLOGY WBC 8.7 3.7 - 10.4 08/26/2018 [facility] HEMATOLOGY Hgb 12.9 12.0 - 16.0 08/26/2018 [facility] MCH 29.2 27.0 - 31.0 08/26/2018 [facility] HEMATOLOGY MCV 86.2 80.0 - 98.0 08/26/2018 [facility] HEMATOLOGY MCHC 33.9 32.0 - 36.0 08/26/2018 [facility] HEMATOLOGY MPV 8.2 7.4 - 10.4 08/26/2018 [facility] TOXICOLOGY Vanco Tr TND 1330 08/25/2018 [facility] TOXICOLOGY Vanco Tr 15.8 08/25/2018 [facility] CHEM PANEL Phosphorus 3.7 2.5 - 4.5 08/25/2018 [facility] CHEM PANEL B/C Ratio 24 6 - 25 08/25/2018 [facility] CHEM PANEL A/G Ratio 0.8 0.7 - 1.6 08/25/2018 [facility] CHEM PANEL Globulin 3.6 2.7 - 4.2 08/25/2018 [facility] CHEM PANEL Bili Total 0.3 0.2 - 1.3 08/25/2018 [facility] CHEM PANEL Alk Phos 77 39 - 136 08/25/2018 [facility] CHEM PANEL AST 19 0 - 37 08/25/2018 [facility] CHEM PANEL ALT 23 0 - 65 08/25/2018 [facility] CHEM PANEL Albumin Lvl 2.8 3.5 - 5.0 08/25/2018 [facility] CHEM PANEL Total Protein 6.4 6.4 - 8.4 08/25/2018 [facility] CHEM PANEL Procalcitonin Lvl <0.05 0.00 - 0.10 08/24/2018 [facility] CHEM PANEL Lactic Acid Lvl 1.1 0.5 - 2.2 08/24/2018 [facility] IMMUNOLOGY HIV Ag/Ab 4th Gen Negat theron *NA* (08/24/18 5:22 PM) Negative 08/24/2018 [facility] CHEM PANEL Lactic Acid Lvl 2.2 0.5 - 2.2 08/24/2018 [facility] CHEM PANEL Total Protein 7.8 6.4 - 8.4 08/24/2018 [facility] CHEM PANEL Albumin Lvl 3.8 3.5 - 5.0 08/24/2018 [facility] CHEM PANEL Alk Phos 99 39 - 136 08/24/2018 [facility] CHEM PANEL Bili Total 0.3 0.2 - 1.3 08/24/2018 [facility] CHEM PANEL AST 18 0 - 37 08/24/2018 [facility] CHEM PANEL ALT 21 0 - 65 08/24/2018 [facility] CHEM PANEL Globulin 4.0 2.7 - 4.2 08/24/2018 [facility] CHEM PANEL A/G Ratio 1.0 0.7 - 1.6 08/24/2018 [facility] CHEM PANEL B/C Ratio 17 6 - 25 08/24/2018 [facility] ENDOCRINOLOGY S Preg Ne gative *NA* (08/24/18 4:15 AM) Negative 08/24/2018 [facility] HEMATOLOGY Plt Morph Conc[place] l (08/24/18 4:15 AM) 08/24/2018 [facility] HEMATOLOGY RBC Morph [place] (08/24/18 4:15 AM) 08/24/2018 [facility] HEMATOLOGY Large Plt Occasional 08/24/2018 [facility] SPECIAL CHEMISTRY Hgb A1C 5.3 <=5.6 % 08/24/2018 [facility] ELECTROLYTES AGAP 12.2 10.0 - 20.0 05/21/2018 [facility] ELECTROLYTES eGFR 111 05/21/2018 Result Comment: [...] should be multiplied by the estimated BMI. [facility] ELECTROLYTES Glucose Lvl 89 70 - 99 05/21/2018 [facility] ELECTROLYTES Potassium Lvl 4.2 3.5 - 5.1 05/21/2018 [facility] ELECTROLYTES Chloride Lvl 105 95 - 109 05/21/2018 [facility] ELECTROLYTES Creatinine Lvl 0.7 2 0.50 - 1.40 05/21/2018 [facility] ELECTROLYTES Sodium Lvl 142 135 - 145 05/21/2018 [facility] ELECTROLYTES BUN 9 7 - 22 05/21/2018 [facility] ELECTROLYTES CO2 29 24 - 32 05/21/2018 [facility] ELECTROLYTES Calcium Lvl 8.2 8.5 - 10.5 05/21/2018 [facility] HEMATOLOGY Eosinophils # 0.3 0.0 - 0.5 05/21/2018 [facility] HEMATOLOGY Monocytes # 0.8 0.0 - 0.8 05/21/2018 [facility] HEMATOLOGY Basophils # 0.1 0.0 - 0.2 05/21/2018 [facility] HEMATOLOGY Lymphocytes 32.9 20.0 - 40.0 05/21/2018 [facility] HEMATOLOGY Segs 50.8 45.0 - 75.0 05/21/2018 [facility] HEMATOLOGY Lymphocytes # 2.3 1.0 - 5.5 05/21/2018 [facility] HEMATOLOGY Neutrophils # 3.6 1.5 - 8.1 05/21/2018 [facility] HEMATOLOGY Basophils 0.8 0.0 - 1.0 05/21/2018 [facility] HEMATOLOGY Eosinophils 4.8 0.0 - 4.0 05/21/2018 [facility] HEMATOLOGY Monocytes 10.7 2.0 - 12.0 05/21/2018 [facility] Hct 35.3 36.0 - 48.0 05/21/2018 [facility] Platelet 267 133 - 450 05/21/2018 [facility] RDW 12.9 11.5 - 14.5 05/21/2018 [facility] MCV 85.6 80.0 - 98.0 05/21/2018 [facility] MCHC 34.4 32.0 - 36.0 05/21/2018 [facility] MCH 29.4 27.0 - 31.0 05/21/2018 [facility] MPV 8.4 7.4 - 10.4 05/21/2018 [facility] RBC 4.12 4.20 - 5.40 05/21/2018 [facility] WBC 7.1 3.7 - 10.4 05/21/2018 [facility] HEMATOLOGY Hgb 12.1 12.0 - 16.0 05/21/2018 [facility] TOXICOLOGY Vanco Tr 15.7 05/21/2018 [facility] TOXICOLOGY Vanco Tr TND 0300 05/21/2018 [facility] ELECTROLYTES AGAP 10.9 10.0 - 20.0 05/20/2018 [facility] ELECTROLYTES eGFR 122 05/20/2018 Result Comment: [...] should be multiplied by the estimated BMI. [facility] ELECTROLYTES CO2 26 24 - 32 05/20/2018 [facility] ELECTROLYTES Chloride Lvl 111 95 - 109 05/20/2018 [facility] ELECTROLYTES Sodium Lvl 144 135 - 145 05/20/2018 [facility] ELECTROLYTES Potassium Lvl 3.9 3.5 - 5.1 05/20/2018 [facility] ELECTROLYTES Calcium Lvl 8.0 8.5 - 10.5 05/20/2018 [facility] ELECTROLYTES Creatinine Lvl 0.5 9 0.50 - 1.40 05/20/2018 [facility] ELECTROLYTES Glucose Lvl 94 70 - 99 05/20/2018 [facility] ELECTROLYTES BUN 9 7 - 22 05/20/2018 [facility] HEMATOLOGY Segs 55.0 45.0 - 75.0 05/20/2018 [facility] HEMATOLOGY Lymphocytes 31.9 20.0 - 40.0 05/20/2018 [facility] HEMATOLOGY Eosinophils 2.3 0.0 - 4.0 05/20/2018 [facility] HEMATOLOGY Monocytes 9.9 2.0 - 12.0 05/20/2018 [facility] HEMATOLOGY Monocytes # 0.7 0.0 - 0.8 05/20/2018 [facility] HEMATOLOGY Lymphocytes # 2.4 1.0 - 5.5 05/20/2018 [facility] HEMATOLOGY Basophils # 0.1 0.0 - 0.2 05/20/2018 [facility] HEMATOLOGY Eosinophils # 0.2 0.0 - 0.5 05/20/2018 [facility] HEMATOLOGY Neutrophils # 4.1 1.5 - 8.1 05/20/2018 [facility] HEMATOLOGY Basophils 0.9 0.0 - 1.0 05/20/2018 [facility] HEMATOLOGY MCH 29.8 27.0 - 31.0 05/20/2018 [facility] HEMATOLOGY MCV 86.8 80.0 - 98.0 05/20/2018 [facility] HEMATOLOGY RBC 3.85 4.20 - 5.40 05/20/2018 [facility] HEMATOLOGY WBC 7.4 3.7 - 10.4 05/20/2018 [facility] HEMATOLOGY Hct 33.4 36.0 - 48.0 05/20/2018 [facility] HEMATOLOGY Hgb 11.5 12.0 - 16.0 05/20/2018 [facility] HEMATOLOGY RDW 12.9 11.5 - 14.5 05/20/2018 [facility] HEMATOLOGY MCHC 34.3 32.0 - 36.0 05/20/2018 [facility] HEMATOLOGY MPV 8.7 7.4 - 10.4 05/20/2018 [facility] Platelet 249 133 - 450 05/20/2018 [facility] ELECTROLYTES AGAP 14.4 10.0 - 20.0 05/19/2018 [facility] ELECTROLYTES eGFR 110 05/19/2018 Result Comment: [...] should be multiplied by the estimated BMI. [facility] ELECTROLYTES Calcium Lvl 8.2 8.5 - 10.5 05/19/2018 [facility] ELECTROLYTES Potassium Lvl 4.4 3.5 - 5.1 05/19/2018 [facility] ELECTROLYTES Chloride Lvl 109 95 - 109 05/19/2018 [facility] ELECTROLYTES CO2 25 24 - 32 05/19/2018 [facility] ELECTROLYTES Glucose Lvl 131 70 - 99 05/19/2018 [facility] ELECTROLYTES BUN 7 7 - 22 05/19/2018 [facility] ELECTROLYTES Sodium Lvl 144 135 - 145 05/19/2018 [facility] ELECTROLYTES Creatinine Lvl 0.7 3 0.50 - 1.40 05/19/2018 [facility] HEMATOLOGY Basophils 0.3 0.0 - 1.0 05/19/2018 [facility] HEMATOLOGY Eosinophils 0.1 0.0 - 4.0 05/19/2018 [facility] Segs 83.5 45.0 - 75.0 05/19/2018 [facility] Lymphocytes 9.1 20.0 - 40.0 05/19/2018 [facility] Monocytes 7.0 2.0 - 12.0 05/19/2018 [facility] HEMATOLOGY Neutrophils # 8.9 1.5 - 8.1 05/19/2018 [facility] Monocytes # 0.7 0.0 - 0.8 05/19/2018 [facility] Lymphocytes # 1.0 1.0 - 5.5 05/19/2018 [facility] MPV 8.4 7.4 - 10.4 05/19/2018 [facility] Platelet 239 133 - 450 05/19/2018 [facility] HEMATOLOGY RDW 12.8 11.5 - 14.5 05/19/2018 [facility] MCHC 33.2 32.0 - 36.0 05/19/2018 [facility] WBC 10.6 3.7 - 10.4 05/19/2018 [facility] MCV 88.3 80.0 - 98.0 05/19/2018 [facility] Hct 38.9 36.0 - 48.0 05/19/2018 [facility] RBC 4.41 4.20 - 5.40 05/19/2018 [facility] MCH 29.3 27.0 - 31.0 05/19/2018 [facility] Hgb 12.9 12.0 - 16.0 05/19/2018 [facility] TOXICOLOGY Vanco Tr TND 0200 05/19/2018 [facility] TOXICOLOGY Vanco Tr 6.6 05/19/2018 [facility] TOXICOLOGY Vanco Tr 27.1 05/18/2018 [facility] TOXICOLOGY Vanco Tr TND 13:30 05/18/2018 [facility] AMPICILLIN+SULBACTAM:SUSC:PT:ISOLATE:ORDQN:MONISHA Gram Stain Report Many Gram Positive Cocci In Clusters No WBC's Seen 05/18/2018 [facility] AMPICILLIN+SULBACTAM:SUSC:PT:ISOLATE:ORDQN:MONISHA Culture: Wound/Abscess w/Gram Stain Many Staphylococcus aureus 05/18/2018 [facility] AMPICILLIN+SULBACTAM:SUSC:PT:ISOLATE:ORDQN:MONISHA Staphylococcus aureus Staphylococcus aureus 05/18/2018 [facility] Culture: Anaerobic No Anaerobes Is olated 05/18/2018 [facility] CHEM PANEL Magnesium Lvl 1.9 1.8 - 2.4 05/17/2018 [facility] CHEM PANEL B/C Ratio 16 6 - 25 05/17/2018 [facility] CHEM PANEL Total Protein 7.0 6.4 - 8.4 05/17/2018 [facility] CHEM PANEL Globulin 4.0 2.7 - 4.2 05/17/2018 [facility] CHEM PANEL Albumin Lvl 3.0 3.5 - 5.0 05/17/2018 [facility] CHEM PANEL AST 11 0 - 37 05/17/2018 [facility] CHEM PANEL Bili Total 0.4 0.2 - 1.3 05/17/2018 [facility] CHEM PANEL Alk Phos 66 39 - 136 05/17/2018 [facility] CHEM PANEL ALT 19 0 - 65 05/17/2018 [facility] CHEM PANEL A/G Ratio 0.8 0.7 - 1.6 05/17/2018 [facility] HEMATOLOGY INR 1.14 0.85 - 1.17 05/17/2018 [facility] HEMATOLOGY PT 14.6 12.0 - 14.7 05/17/2018 [facility] HEMATOLOGY PTT 36.4 22.9 - 35.8 05/17/2018 [facility] HEMATOLOGY Basophils # 0.1 0.0 - 0.2 05/17/2018 [facility] HEMATOLOGY Eosinophils # 0.3 0.0 - 0.5 05/17/2018 [facility] CHEM PANEL Lactic Acid Lvl 1.3 0.5 - 2.2 05/17/2018 [facility] CHEM PANEL Globulin 4.1 2.7 - 4.2 05/17/2018 [facility] CHEM PANEL A/G Ratio 0.8 0.7 - 1.6 05/17/2018 [facility] CHEM PANEL B/C Ratio 13 6 - 25 05/17/2018 [facility] CHEM PANEL ALT 21 0 - 65 05/17/2018 [facility] CHEM PANEL AST 14 0 - 37 05/17/2018 [facility] CHEM PANEL Alk Phos 71 39 - 136 05/17/2018 [facility] CHEM PANEL Bili Total 0.2 0.2 - 1.3 05/17/2018 [facility] CHEM PANEL Albumin Lvl 3.2 3.5 - 5.0 05/17/2018 [facility] CHEM [facility] Total Protein 7.3 6.4 - 8.4 05/17/2018 [facility] ENDOCRINOLOGY S Preg Ne gative *NA* (05/17/18 12:24 AM) Negative 05/17/2018 [facility] CARDIAC ENZYMES Troponin-I <0.02 0.00 - 0.40 01/12/2018 [facility] CHEM PANEL A/G Ratio 1.0 0.7 - 1.6 01/12/2018 [facility] CHEM PANEL B/C Ratio 13 6 - 25 01/12/2018 [facility] CHEM PANEL Globulin 3.5 2.7 - 4.2 01/12/2018 [facility] CHEM PANEL AGAP 12.2 10.0 - 20.0 01/12/2018 [facility] CHEM PANEL eGFR 102 01/12/2018 Result Comment: [...] should be multiplied by the estimated BMI. [facility] CHEM PANEL Alk Phos 76 39 - 136 01/12/2018 [facility] CHEM PANEL AST 39 0 - 37 01/12/2018 [facility] CHEM PANEL ALT 38 0 - 65 01/12/2018 [facility] CHEM PANEL Bili Total 0.7 0.2 - 1.3 01/12/2018 [facility] CHEM PANEL Glucose Lvl 93 70 - 99 01/12/2018 [facility] CHEM PANEL Creatinine Lvl 0.78 0.50 - 1.40 01/12/2018 [facility] CHEM PANEL BUN 10 7 - 22 01/12/2018 [facility] CHEM PANEL Sodium Lvl 139 135 - 145 01/12/2018 [facility] CHEM PANEL Calcium Lvl 8.3 8.5 - 10.5 01/12/2018 [facility] CHEM PANEL Total Protein 7.0 6.4 - 8.4 01/12/2018 [facility] CHEM PANEL Albumin Lvl 3.5 3.5 - 5.0 01/12/2018 [facility] CHEM PANEL CO2 24 24 - 32 01/12/2018 [facility] CHEM PANEL Chloride Lvl 107 95 - 109 01/12/2018 [facility] CHEM PANEL Potassium Lvl 4.2 3.5 - 5.1 01/12/2018 [facility] ENDOCRINOLOGY S Preg Ne gative *NA* (01/12/18 4:58 PM) Negative 01/12/2018 [facility] HEMATOLOGY Lymphocytes # 2.4 1.0 - 5.5 01/12/2018 [facility] HEMATOLOGY Monocytes # 0.9 0.0 - 0.8 01/12/2018 [facility] HEMATOLOGY Segs-Bands # 6.6 1.5 - 8.1 01/12/2018 [facility] HEMATOLOGY Eosinophils 5.1 0.0 - 4.0 01/12/2018 [facility] Lymphocytes 22.9 20.0 - 40.0 01/12/2018 [facility] HEMATOLOGY Basophils 0.8 0.0 - 1.0 01/12/2018 [facility] HEMATOLOGY Monocytes 8.8 2.0 - 12.0 01/12/2018 [facility] HEMATOLOGY Segs 62.4 45.0 - 75.0 01/12/2018 [facility] HEMATOLOGY Eosinophils # 0.5 0.0 - 0.5 01/12/2018 [facility] Basophils # 0.1 0.0 - 0.2 01/12/2018 [facility] HEMATOLOGY MPV 9.0 7.4 - 10.4 01/12/2018 [facility] HEMATOLOGY RBC 4.80 4.20 - 5.40 01/12/2018 [facility] HEMATOLOGY WBC 10.6 3.7 - 10.4 01/12/2018 [facility] HEMATOLOGY Hgb 14.2 12.0 - 16.0 01/12/2018 [facility] HEMATOLOGY Platelet 227 133 - 450 01/12/2018 [facility] HEMATOLOGY RDW 12.7 11.5 - 14.5 01/12/2018 [facility] MCHC 33.4 32.0 - 36.0 01/12/2018 [facility] HEMATOLOGY MCV 88.3 80.0 - 98.0 01/12/2018 [facility] HEMATOLOGY Hct 42.4 36.0 - 48.0 01/12/2018 [facility] HEMATOLOGY MCH 29.5 27.0 - 31.0 01/12/2018 [facility] CHEM PANEL eGFR 108 12/31/2016 Result Comment: [...] should be multiplied by the estimated BMI. [facility] CHEM PANEL Glucose Lvl 86 70 - 99 12/31/2016 [facility] CHEM PANEL Sodium Lvl 139 135 - 145 12/31/2016 [facility] CHEM PANEL BUN 9 7 - 22 12/31/2016 [facility] CHEM PANEL Creatinine Lvl 0.74 0.50 - 1.40 12/31/2016 [facility] CHEM PANEL Total Protein 7.1 6.4 - 8.4 12/31/2016 [facility] CHEM PANEL CO2 25 24 - 32 12/31/2016 [facility] CHEM PANEL Calcium Lvl 8.7 8.5 - 10.5 12/31/2016 [facility] CHEM PANEL Potassium Lvl 3.8 3.5 - 5.1 12/31/2016 [facility] CHEM PANEL Chloride Lvl 106 95 - 109 12/31/2016 [facility] CHEM PANEL AST 13 0 - 37 12/31/2016 [facility] CHEM PANEL Alk Phos 83 39 - 136 12/31/2016 [facility] CHEM PANEL Albumin Lvl 3.5 3.5 - 5.0 12/31/2016 [facility] CHEM PANEL ALT 22 0 - 65 12/31/2016 [facility] CHEM PANEL Bili Total 0.4 0.2 - 1.3 12/31/2016 [facility] CHEM PANEL B/C Ratio 12 6 - 25 12/31/2016 [facility] CHEM PANEL Globulin 3.6 2.7 - 4.2 12/31/2016 [facility] CHEM PANEL A/G Ratio 1.0 0.7 - 1.6 12/31/2016 [facility] CHEM PANEL AGAP 11.8 10.0 - 20.0 12/31/2016 [facility] CHEM PANEL Lipase Lvl 135 73 - 393 12/31/2016 [facility] ENDOCRINOLOGY S Preg Ne gative *NA* (12/31/16 12:53 AM) Negative 12/31/2016 [facility] HEMATOLOGY Segs 53.9 45.0 - 75.0 12/31/2016 [facility] HEMATOLOGY Eosinophils 4.9 0.0 - 4.0 12/31/2016 [facility] HEMATOLOGY Basophils 1.2 0.0 - 1.0 12/31/2016 [facility] HEMATOLOGY Segs-Bands # 5.0 1.5 - 8.1 12/31/2016 [facility] HEMATOLOGY Lymphocytes 31.8 20.0 - 40.0 12/31/2016 [facility] HEMATOLOGY Monocytes 8.2 2.0 - 12.0 12/31/2016 [facility] HEMATOLOGY Basophils # 0.1 0.0 - 0.2 12/31/2016 [facility] Lymphocytes # 3.0 1.0 - 5.5 12/31/2016 [facility] HEMATOLOGY Monocytes # 0.8 0.0 - 0.8 12/31/2016 [facility] HEMATOLOGY Eosinophils # 0.5 0.0 - 0.5 12/31/2016 [facility] MPV 9.6 7.4 - 10.4 12/31/2016 [facility] MCHC 33.1 32.0 - 36.0 12/31/2016 [facility] RDW 12.4 11.5 - 14.5 12/31/2016 [facility] HEMATOLOGY Platelet 214 133 - 450 12/31/2016 [facility] HEMATOLOGY MCV 89.8 80.0 - 98.0 12/31/2016 [facility] MCH 29.7 27.0 - 31.0 12/31/2016 [facility] HEMATOLOGY Hct 45.3 36.0 - 48.0 12/31/2016 [facility] HEMATOLOGY WBC 9.3 3.7 - 10.4 12/31/2016 [facility] RBC 5.04 4.20 - 5.40 12/31/2016 [facility] Hgb 15.0 12.0 - 16.0 12/31/2016 [facility] URINE AND STOOL UA Mucus Many /LPF None Seen /LPF 12/31/2016 [facility] URINE AND STOOL UA Amorph Miriam Occasional /HPF None Seen /HPF 12/31/2016 [facility] URINE AND STOOL UA RBC 33 0 - 2 12/31/2016 [facility] URINE AND STOOL UA WBC 27 0 - 5 12/31/2016 [facility] URINE AND STOOL UA Bacteria Many /HPF None Seen /HPF 12/31/2016 [facility] URINE AND STOOL UA Sq Epi Many /LPF Few /LPF 12/31/2016 [facility] URINE AND STOOL UA Protein 100 mg/dL Negative mg/dL 12/31/2016 [facility] URINE AND STOOL UA Ketones Trace *ABN* (12/31/16 12:53 AM) Negative 12/31/2016 [facility] URINE AND STOOL UA Blood Large *ABN* (12/31/16 12:53 AM) Negative 12/31/2016 [facility] URINE AND STOOL UA Bili Moderate *ABN* (12/31/16 12:53 AM) Negative 12/31/2016 [facility] URINE AND STOOL UA Color Gina *ABN* (12/31/16 12:53 AM) Yellow 12/31/2016 [facility] URINE AND STOOL UA Nitrite Positive *ABN* (12/31/16 12:53 AM) Negative 12/31/2016 [facility] URINE AND STOOL UA Urobilinogen 2.0 0.1 - 1.0 12/31/2016 [facility] URINE AND STOOL UA Leuk Est Trace *ABN* (12/31/16 12:53 AM) Negative 12/31/2016 [facility] URINE AND STOOL UA Turbidity Cloudy *ABN* (12/31/16 12:53 AM) Clear 12/31/2016 [facility] URINE AND STOOL UA Spec Grav 1.025 <=1.030 12/31/2016 [facility] URINE AND STOOL UA pH 6.5 5.0 - 8.0 12/31/2016 [facility] URINE AND STOOL UA Glucose Negative (12/31/16 12:53 AM) Negative 12/31/2016 [facility] CHEM PANEL Lipase Lvl 156 73 - 393 12/25/2016 [facility] CHEM PANEL eGFR 96 12/25/2016 Result Comment: [...] Alk Phos 94 39 - 136 12/25/2016 [facility] CHEM PANEL Creatinine Lvl 0.82 0.50 - [...] PANEL Globulin 4.0 2.7 - 4.2 12/25/2016 [facility] HEMATOLOGY PTT 32.0 22.9 - 35.8 12/25/2016 [facility] HEMATOLOGY INR 1.10 0.85 - 1.17 12/25/2016 [facility] HEMATOLOGY PT 14.4 12.0 - 14.7 12/25/2016 [facility] HEMATOLOGY Hgb 15.1 12.0 - 16.0 12/25/2016 [facility] HEMATOLOGY Hct 45.6 36.0 - 48.0 12/25/2016 [facility] HEMATOLOGY MCV 89.9 80.0 - 98.0 12/25/2016 [facility] HEMATOLOGY MCH 29.8 27.0 - 31.0 12/25/2016 [facility] HEMATOLOGY WBC 10.7 3.7 - 10.4 12/25/2016 [facility] HEMATOLOGY RBC 5.08 4.20 - 5.40 12/25/2016 [facility] HEMATOLOGY MCHC 33.2 32.0 - 36.0 12/25/2016 [facility] HEMATOLOGY RDW 12.7 11.5 - 14.5 12/25/2016 [facility] HEMATOLOGY MPV 9.3 7.4 - 10.4 12/25/2016 [facility] HEMATOLOGY Platelet 232 133 - 450 12/25/2016 [facility] HEMATOLOGY Eosinophils 1.9 0.0 - 4.0 12/25/2016 [facility] HEMATOLOGY Basophils 0.7 0.0 - 1.0 12/25/2016 [facility] HEMATOLOGY Monocytes 6.7 2.0 - 12.0 12/25/2016 [facility] HEMATOLOGY Lymphocytes # 2.5 1.0 - 5.5 12/25/2016 [facility] HEMATOLOGY Monocytes # 0.7 0.0 - 0.8 12/25/2016 [facility] HEMATOLOGY Segs-Bands # 7.2 1.5 - 8.1 12/25/2016 [facility] HEMATOLOGY Eosinophils # 0.2 0.0 - 0.5 12/25/2016 [facility] HEMATOLOGY Basophils # 0.1 0.0 - 0.2 12/25/2016 [facility] HEMATOLOGY Segs 67.6 45.0 - 75.0 12/25/2016 [facility] HEMATOLOGY Lymphocytes 23.1 20.0 - 40.0 12/25/2016 [facility] CHEM PANEL Lipase Lvl 165 73 - 393 07/20/2016 [facility] CHEM PANEL A/G Ratio 1.0 0.7 - 1.6 07/20/2016 [facility] CHEM PANEL Globulin 3.9 2.7 - 4.2 07/20/2016 [facility] CHEM PANEL B/C Ratio 10 6 - 25 07/20/2016 [facility] CHEM PANEL AGAP 13.0 10.0 - 20.0 07/20/2016 [facility] CHEM PANEL AST 18 0 - 37 07/20/2016 [facility] CHEM PANEL ALT 24 0 - 65 07/20/2016 [facility] CHEM PANEL eGFR 117 07/20/2016 Result Comment: [...] should be multiplied by the estimated BMI. [facility] CHEM PANEL Albumin Lvl 3.9 3.5 - 5.0 07/20/2016 [facility] CHEM PANEL Total Protein 7.8 6.4 - 8.4 07/20/2016 [facility] CHEM PANEL Calcium Lvl 8.7 8.5 - 10.5 07/20/2016 [facility] CHEM PANEL Bili Total 0.3 0.2 - 1.3 07/20/2016 [facility] CHEM PANEL Alk Phos 79 39 - 136 07/20/2016 [facility] CHEM PANEL Creatinine Lvl 0.70 0.50 - 1.40 07/20/2016 [facility] CHEM PANEL BUN 7 7 - 22 07/20/2016 [facility] CHEM PANEL CO2 28 24 - 32 07/20/2016 [facility] CHEM PANEL Chloride Lvl 104 95 - 109 07/20/2016 [facility] CHEM PANEL Potassium Lvl 4.0 3.5 - 5.1 07/20/2016 [facility] CHEM PANEL Sodium Lvl 141 135 - 145 07/20/2016 [facility] CHEM PANEL Glucose Lvl 84 70 - 99 07/20/2016 [facility] HEMATOLOGY RDW 12.6 11.5 - 14.5 07/20/2016 [facility] HEMATOLOGY Platelet 238 133 - 450 07/20/2016 [facility] HEMATOLOGY Hgb 15.3 12.0 - 16.0 07/20/2016 [facility] HEMATOLOGY RBC 5.08 4.20 - 5.40 07/20/2016 [facility] HEMATOLOGY WBC 10.8 3.7 - 10.4 07/20/2016 [facility] HEMATOLOGY MPV 8.9 7.4 - 10.4 07/20/2016 [facility] HEMATOLOGY MCV 88.5 80.0 - 98.0 07/20/2016 [facility] HEMATOLOGY Hct 44.9 36.0 - 48.0 07/20/2016 [facility] HEMATOLOGY MCH 30.1 27.0 - 31.0 07/20/2016 [facility] HEMATOLOGY MCHC 34.0 32.0 - 36.0 07/20/2016 [facility] HEMATOLOGY Eosinophils # 0.6 0.0 - 0.5 07/20/2016 [facility] HEMATOLOGY Basophils # 0.1 0.0 - 0.2 07/20/2016 [facility] HEMATOLOGY Lymphocytes # 2.6 1.0 - 5.5 07/20/2016 [facility] HEMATOLOGY Monocytes # 0.5 0.0 - 0.8 07/20/2016 [facility] HEMATOLOGY Segs-Bands # 7.0 1.5 - 8.1 07/20/2016 [facility] HEMATOLOGY Eosinophils 5.6 0.0 - 4.0 07/20/2016 [facility] HEMATOLOGY Basophils 0.9 0.0 - 1.0 07/20/2016 [facility] HEMATOLOGY Monocytes 4.6 2.0 - 12.0 07/20/2016 [facility] HEMATOLOGY Segs 65.0 45.0 - 75.0 07/20/2016 [facility] HEMATOLOGY Lymphocytes 23.9 20.0 - 40.0 07/20/2016 [facility] URINE AND STOOL UA Urobilinogen <=1.0 mg/dL 0.1 - 1.0 07/20/2016 [facility] URINE AND STOOL UA Color Colorless 07/20/2016 [facility] URINE AND STOOL UA pH 8.0 5.0 - 8.0 07/20/2016 [facility] URINE AND STOOL UA Protein Negative mg/dL Negative mg/dL 07/20/2016 [facility] URINE AND STOOL UA Turbidity Clear (07/19/16 7:59 PM) Clear 07/20/2016 [facility] URINE AND STOOL UA Spec Grav 1.005 <=1.030 07/20/2016 [facility] URINE AND STOOL UA Nitrite Negative (07/19/16 7:59 PM) Negative 07/20/2016 [facility] URINE AND STOOL UA Glucose Negative mg/dL Negative mg/dL 07/20/2016 [facility] URINE AND STOOL UA Sq Epi Occasional /LPF Few /LPF 07/20/2016 [facility] URINE AND STOOL UA Blood Small *ABN* (07/19/16 7:59 PM) Negative 07/20/2016 [facility] URINE AND STOOL UA Leuk Est Negative (07/19/16 7:59 PM) Negative 07/20/2016 [facility] URINE AND STOOL UA Bili Negative *NA* (07/19/16 7:59 PM) Negative 07/20/2016 [facility] URINE AND STOOL UA Bacteria Occasional /HPF None Seen /HPF 07/20/2016 [facility] URINE AND STOOL UA Ketones Negative mg/dL Negative mg/dL 07/20/2016 [facility] URINE AND STOOL UA WBC <1 0 - 5 07/20/2016 [facility] URINE AND STOOL UA RBC 1 0 - 2 07/20/2016 [facility] URINE CHEM U Preg Negat theron (07/19/16 7:59 PM) Negative 07/20/2016 [facility] CHEM PANEL Creatinine Lvl 0.66 0.50 - 1.40 04/14/2016 [facility] CHEM PANEL Potassium Lvl 3.7 3.5 - 5.1 04/14/2016 [facility] CHEM PANEL Sodium Lvl 138 135 - 145 04/14/2016 [facility] CHEM PANEL Glucose Lvl 87 70 - 99 04/14/2016 [facility] CHEM PANEL BUN 13 7 - 22 04/14/2016 [facility] CHEM PANEL Chloride Lvl 107 95 - 109 04/14/2016 [facility] CHEM PANEL ALT 22 0 - 65 04/14/2016 [facility] CHEM PANEL Albumin Lvl 3.8 3.5 - 5.0 04/14/2016 [facility] CHEM PANEL CO2 26 24 - 32 04/14/2016 [facility] CHEM PANEL eGFR 119 04/14/2016 Result Comment: [...] should be multiplied by the estimated BMI. [facility] CHEM PANEL Bili Total 0.3 0.2 - 1.3 04/14/2016 [facility] CHEM PANEL Alk Phos 72 39 - 136 04/14/2016 [facility] CHEM PANEL AST 13 0 - 37 04/14/2016 [facility] CHEM PANEL Total Protein 7.4 6.4 - 8.4 04/14/2016 [facility] CHEM PANEL Calcium Lvl 8.3 8.5 - 10.5 04/14/2016 [facility] CHEM PANEL Globulin 3.6 2.7 - 4.2 04/14/2016 [facility] CHEM PANEL A/G Ratio 1.1 0.7 - 1.6 04/14/2016 [facility] CHEM PANEL B/C Ratio 20 6 - 25 04/14/2016 [facility] CHEM PANEL AGAP 8.7 10.0 - 20.0 04/14/2016 [facility] CHEM PANEL Lipase Lvl 166 73 - 393 04/14/2016 [facility] CHEM PANEL Amylase Lvl 45 25 - 115 04/14/2016 [facility] MCH 29.2 27.0 - 31.0 04/14/2016 [facility] HEMATOLOGY MCV 87.0 80.0 - 98.0 04/14/2016 [facility] HEMATOLOGY Hct 40.7 36.0 - 48.0 04/14/2016 [facility] Hgb 13.6 12.0 - 16.0 04/14/2016 [facility] RBC 4.67 4.20 - 5.40 04/14/2016 [facility] HEMATOLOGY MPV 8.6 7.4 - 10.4 04/14/2016 [facility] Platelet 207 133 - 450 04/14/2016 [facility] MCHC 33.6 32.0 - 36.0 04/14/2016 [facility] RDW 13.0 11.5 - 14.5 04/14/2016 [facility] WBC 11.2 3.7 - 10.4 04/14/2016 [facility] Monocytes # 0.9 0.0 - 0.8 04/14/2016 [facility] Lymphocytes # 3.3 1.0 - 5.5 04/14/2016 [facility] HEMATOLOGY Segs-Bands # 6.3 1.5 - 8.1 04/14/2016 [facility] HEMATOLOGY Basophils 0.8 0.0 - 1.0 04/14/2016 [facility] HEMATOLOGY Eosinophils 5.9 0.0 - 4.0 04/14/2016 [facility] HEMATOLOGY Monocytes 8.2 2.0 - 12.0 04/14/2016 [facility] HEMATOLOGY Lymphocytes 29.1 20.0 - 40.0 04/14/2016 [facility] HEMATOLOGY Segs 56.0 45.0 - 75.0 04/14/2016 [facility] HEMATOLOGY Basophils # 0.1 0.0 - 0.2 04/14/2016 [facility] HEMATOLOGY Eosinophils # 0.7 0.0 - 0.5 04/14/2016 [facility] URINE AND STOOL UA Blood Large *ABN* (04/14/16 1:13 AM) Negative 04/14/2016 [facility] URINE AND STOOL UA Bili Negative *NA* (04/14/16 1:13 AM) Negative 04/14/2016 [facility] URINE AND STOOL UA pH 5.0 5.0 - 8.0 04/14/2016 [facility] URINE AND STOOL UA Spec Grav 1.020 <=1.030 04/14/2016 [facility] URINE AND STOOL UA Turbidity Slight *ABN* (04/14/16 1:13 AM) Clear 04/14/2016 [facility] URINE AND STOOL UA Protein Negative mg/dL Negative mg/dL 04/14/2016 [facility] URINE AND STOOL UA Nitrite Negative (04/14/16 1:13 AM) Negative 04/14/2016 [facility] URINE AND STOOL UA WBC 7 0 - 5 04/14/2016 [facility] URINE AND STOOL UA Sq Epi Many /LPF Few /LPF 04/14/2016 [facility] URINE AND STOOL UA RBC 3 0 - 2 04/14/2016 [facility] URINE AND STOOL UA Leuk Est Trace *ABN* (04/14/16 1:13 AM) Negative 04/14/2016 [facility] URINE AND STOOL UA Ketones Negative mg/dL Negative mg/dL 04/14/2016 [facility] URINE AND STOOL UA Glucose Negative mg/dL Negative mg/dL 04/14/2016 [facility] URINE AND STOOL UA Bacteria Many /HPF None Seen /HPF 04/14/2016 [facility] URINE AND STOOL UA Mucus Few /LPF None Seen /LPF 04/14/2016 [facility] URINE AND STOOL UA Urobilinogen <=1.0 mg/dL 0.1 - 1.0 04/14/[address] [facility] [address] URINE AND STOOL UA Color Yellow *NA* (04/14/16 1:13 AM) Yellow 04/14/2016 [facility] URINE CHEM U Preg Negat theron (04/14/16 1:13 AM) Negative 04/14/2016 [facility] URINE AND STOOL UA Color Gina 02/24/2016 [facility] URINE AND STOOL UA WBC 7 0 - 5 02/24/2016 [facility] URINE AND STOOL UA Bili Negative *NA* (02/24/16 12:51 AM) Negative 02/24/2016 [facility] URINE AND STOOL UA Leuk Est Trace *ABN* (02/24/16 12:51 AM) Negative 02/24/2016 [facility] URINE AND STOOL UA Sq Epi Moderate /LPF Few /LPF 02/24/2016 [facility] URINE AND STOOL UA Urobilinogen 2.0 0.1 - 1.0 02/24/2016 [facility] URINE AND STOOL UA Nitrite Negative (02/24/16 12:51 AM) Negative 02/24/2016 [facility] URINE AND STOOL UA Blood Small *ABN* (02/24/16 12:51 AM) Negative 02/24/2016 [facility] URINE AND STOOL UA Mucus Many /LPF None Seen /LPF 02/24/2016 [facility] URINE AND STOOL UA RBC 8 0 - 2 02/24/2016 [facility] URINE AND STOOL UA Bacteria Occasional /HPF None Seen /HPF 02/24/2016 [facility] URINE AND STOOL UA Turbidity Clear (02/24/16 12:51 AM) Clear 02/24/2016 [facility] URINE AND STOOL UA Spec Grav 1.027 <=1.030 02/24/2016 [facility] URINE AND STOOL UA Glucose Negative mg/dL Negative mg/dL 02/24/[address] [facility] [address] URINE AND STOOL UA Ketones Trace mg/dL Negative mg/dL 02/24/[address] [facility] [address] URINE AND STOOL UA pH 7.0 5.0 - 8.0 02/24/2016 [facility] URINE AND STOOL UA Protein 30 mg/dL Negative mg/dL 02/24/2016 [facility] URINE CHEM U Preg Negat theron (02/24/16 12:51 AM) Negative 02/24/2016 [facility] CHEM PANEL Alk Phos 81 39 - [...] A/G Ratio 0.9 0.7 - 1.6 02/24/2016 [facility] CHEM PANEL Globulin 4.2 2.0 - 4.0 02/24/2016 [facility] CHEM PANEL Albumin Lvl 3.8 3.5 - 5.0 02/24/2016 [facility] CHEM PANEL Lipase Lvl 127 73 - 393 02/24/2016 [facility] CHEM PANEL Amylase Lvl 45 25 - 115 02/24/2016 [facility] HEMATOLOGY Hct 44.3 36.0 - 48.0 02/24/2016 [facility] HEMATOLOGY Hgb 14.4 12.0 - 16.0 02/24/2016 [facility] HEMATOLOGY RBC 4.96 4.20 - 5.40 02/24/2016 [facility] HEMATOLOGY WBC 12.3 3.7 - 10.4 02/24/2016 [facility] HEMATOLOGY MCV 89.3 80.0 - 98.0 02/24/2016 [facility] HEMATOLOGY Platelet 209 133 - 450 02/24/2016 [facility] HEMATOLOGY RDW 13.1 11.5 - 14.5 02/24/2016 [facility] HEMATOLOGY MCHC 32.4 32.0 - 36.0 02/24/2016 [facility] MCH 29.0 27.0 - 31.0 02/24/2016 [facility] HEMATOLOGY MPV 8.7 7.4 - 10.4 02/24/2016 [facility] HEMATOLOGY Segs 62.1 45.0 - 75.0 02/24/2016 [facility] HEMATOLOGY Basophils 0.8 0.0 - 1.0 02/24/2016 [facility] HEMATOLOGY Eosinophils 4.6 0.0 - 4.0 02/24/2016 [facility] HEMATOLOGY Monocytes 7.6 2.0 - 12.0 02/24/2016 [facility] HEMATOLOGY Lymphocytes 24.9 20.0 - 40.0 02/24/2016 [facility] HEMATOLOGY Segs-Bands # 7.7 1.5 - 8.1 02/24/2016 [facility] HEMATOLOGY Eosinophils # 0.6 0.0 - 0.5 02/24/2016 [facility] HEMATOLOGY Lymphocytes # 3.1 1.0 - 5.5 02/24/2016 [facility] HEMATOLOGY Basophils # 0.1 0.0 - 0.2 02/24/2016 [facility] HEMATOLOGY Monocytes # 0.9 0.0 - 0.8 02/24/2016 [facility] CHEM PANEL Lipase Lvl 126 73 - 393 01/17/2016 [facility] CHEM PANEL Globulin 4.1 2.0 - 4.0 01/17/2016 [facility] CHEM PANEL A/G Ratio 0.9 0.7 - 1.6 01/17/2016 [facility] CHEM PANEL AGAP 11.0 10.0 - 20.0 01/17/2016 [facility] CHEM PANEL B/C Ratio 11 6 - 25 01/17/2016 [facility] CHEM PANEL eGFR 119 01/17/2016 Result Comment: [...] should be multiplied by the estimated BMI. [facility] CHEM PANEL Total Protein 7.9 6.4 - 8.4 [facility]17/2016 [facility] ASPARTATE TRANSAMINASE 16 0 - 37 01/17/2016 [facility] CHEM PANEL Bili Total 0.4 0.2 - 1.3 01/17/2016 [facility] CHEM PANEL Potassium Lvl 4.0 3.5 - 5.1 01/17/2016 [facility] CHEM PANEL CO2 27 24 - 32 01/17/2016 [facility] CHEM PANEL Chloride Lvl 105 95 - 109 01/17/2016 [facility] CHEM PANEL Calcium Lvl 8.5 8.5 - 10.5 01/17/2016 [facility] CHEM PANEL Sodium Lvl 139 135 - 145 01/17/2016 [facility] CHEM PANEL Glucose Lvl 84 70 - 99 01/17/2016 [facility] CHEM PANEL Alk Phos 88 39 - 136 01/17/2016 [facility] CHEM PANEL Creatinine Lvl 0.66 0.50 - 1.40 01/17/2016 [facility] CHEM PANEL BUN 7 7 - 22 01/17/2016 [facility] CHEM PANEL Albumin Lvl 3.8 3.5 - 5.0 01/17/2016 [facility] CHEM PANEL ALANINE AMINOTRANSFERASE 27 0 - 65 01/17/2016 [facility] HEMATOLOGY Segs-Bands # 6.4 1.5 - 8.1 01/17/2016 [facility]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 01/16/2016 CT [...] of th e liver. SL: OCTAVIA 07/19/2016 [facility] Shoulder series DX Patient Nam e: COLLEEN BEDOLLA : 1985; Age: 30 years y/o Female MR: [id number] * LEFT SHOULDER, 3 views History: Injury, trauma to left shoulder. Left shoulder pain. Technique: The left shoulder was evaluated in frontal projection in internal and external rotation. A transthoracic view was also obtained. FINDINGS: There is no evidence of fracture, dislocation, or acute change. There are no degenerative changes or other significant osseous abnormalities. IMPRESSION: 1. Negative left shoulder. SL: MAAME 04/23/2016 [facility] Spine thoracic 3 views DX Stud y: [...] or pathologic sublu xation. SL: JNDEJAN 04/16/2016 [facility] cervical 2 or 3 view DX [...] patholo gic subluxation detected. SL: JNRAFAEL 04/16/2016 [facility] lumbar 2 or 3 views DX [...] the right upper quadrant. SL: BRAYAN 04/16/2016 [facility] Abdomen/Pelvis wo IV contrast CT Study: Abdomen/Pelvis [...] diverticulosis without acute diverticulitis. SL: DEVYN 01/17/2016 [facility] w Transvag and Pelvis Doppler US PELVIC [...] ultrasound. SL: 12 Teddy Zafar M.D. 05/17/2015 [facility] ED Abdomen/Pelvis IV contrast only CT CT [...] 2. Mild descending diverticulosis. SL: 12 05/15/2015 [facility] Consultation Notes No Data Provided for This Section Discharge Summaries No Data Provided for This Section History and Physicals No Data Provided for This Section Vital Signs Vital Sign Value Date Comments Source Temperature Oral (F) 98.6 F 03/26/2020 [facility] Heart Rate 75 03/26/2020 [facility] Systolic (mm Hg) 112 03/26/2020 [facility] Diastolic (mm Hg) 73 03/26/2020 [facility] Temperature Oral (F) 98.2 F 03/26/2020 [facility] Heart Rate 96 03/26/2020 [facility] Respitory Rate 16 03/26/2020 [facility] Systolic (mm Hg) 137 03/26/2020 [facility] Diastolic (mm Hg) 92 03/26/2020 [facility] Temperature Oral (F) 98.1 F 03/26/2020 [facility] Heart Rate 109 03/26/2020 [facility] Respitory Rate 18 03/26/2020 [facility] Systolic (mm Hg) 116 03/26/2020 [facility] Diastolic (mm Hg) 66 03/26/2020 [facility] Respitory Rate 18 03/26/2020 [facility] Height 167.64 cm 03/23/2020 [facility] Weight 124.091 03/23/2020 [facility] BMI Calculated 44.16 03/23/2020 [facility] Temperature Oral (F) 99.3 F 11/04/2019 [facility] Heart Rate 99 11/04/2019 [facility] Respitory Rate 18 11/04/2019 [facility] Systolic (mm Hg) 117 11/04/2019 [facility] Diastolic (mm Hg) 80 11/04/2019 [facility] Temperature Oral (F) 98.2 F 11/04/2019 [facility] Heart Rate 94 11/04/2019 [facility] Respitory Rate 18 11/04/2019 [facility] Systolic (mm Hg) 130 11/04/2019 [facility] Diastolic (mm Hg) 93 11/04/2019 [facility] Temperature Oral (F) 98.2 F 11/04/2019 [facility] Heart Rate 107 11/04/2019 [facility] Systolic (mm Hg) 152 11/04/2019 [facility] Diastolic (mm Hg) 80 11/04/2019 [facility] Respitory Rate 18 11/04/2019 [facility] Height 167.64 cm 11/02/2019 [facility] Weight 125 11/02/2019 [facility] BMI Calculated 44.48 11/02/2019 [facility] Temperature Oral (F) 98 F 05/25/2019 [facility] Heart Rate 92 05/25/2019 [facility] Respitory Rate 18 05/25/2019 [facility] Systolic (mm Hg) 138 05/25/2019 [facility] Diastolic (mm Hg) 86 05/25/2019 [facility] Temperature Oral (F) 98 F 05/25/2019 [facility] Heart Rate 96 05/25/2019 [facility] Respitory Rate 18 05/25/2019 [facility] Systolic (mm Hg) 140 05/25/2019 [facility] Diastolic (mm Hg) 86 05/25/2019 [facility] Systolic (mm Hg) 134 05/25/2019 [facility] Diastolic (mm Hg) 93 05/25/2019 [facility] Heart Rate 94 05/25/2019 [facility] Respitory Rate 18 05/25/2019 [facility] Temperature Oral (F) 98.2 F 05/25/2019 [facility] Height 167.64 cm 05/25/2019 [facility] BMI Calculated 44.48 05/25/2019 [facility] Weight 125 05/25/2019 [facility] Systolic (mm Hg) 111 05/16/2019 [facility] Diastolic (mm Hg) 73 05/16/2019 [facility] Respitory Rate 16 05/16/2019 [facility] Heart Rate 89 05/16/2019 [facility] Temperature Oral (F) 98.6 F 05/16/2019 [facility] Systolic (mm Hg) 111 05/16/2019 [facility] Diastolic (mm Hg) 79 05/16/2019 [facility] Heart Rate 98 05/16/2019 [facility] Respitory Rate 16 05/16/2019 [facility] [place] Temperature Oral (F) 98.8 F 05/16/2019 [facility] Height 167.64 cm 05/16/2019 [facility] BMI Calculated 45.29 05/16/2019 [facility] Weight 127.273 05/16/2019 [facility] Temperature Oral (F) 98.6 F 04/04/2019 [facility] Heart Rate 88 04/04/2019 [facility] Respitory Rate 18 04/04/2019 [facility] Systolic (mm Hg) 132 04/04/2019 [facility] Diastolic (mm Hg) 78 04/04/2019 [facility] Systolic (mm Hg) 138 04/03/2019 [facility] Diastolic (mm Hg) 88 04/03/2019 [facility] Heart Rate 90 04/03/2019 [facility] Respitory Rate 18 04/03/2019 [facility] Temperature Oral (F) 98.6 F 04/03/2019 [facility] Weight 125 04/03/2019 [facility] Systolic (mm Hg) 104 03/24/2019 [facility] Diastolic (mm Hg) 70 03/24/2019 [facility] Respitory Rate 18 03/24/2019 [facility] Heart Rate 100 03/24/2019 [facility] Temperature Oral (F) 98.7 F 03/24/2019 [facility] Temperature Oral (F) 98.0 F 03/24/2019 [facility] Heart Rate 89 03/24/2019 [facility] [place] Systolic (mm Hg) 107 03/24/2019 [facility] [place] Diastolic (mm Hg) 76 03/24/2019 [facility] Respitory Rate 18 03/24/2019 [facility] Heart Rate 99 03/24/2019 [facility] Respitory Rate 18 03/24/2019 [facility] Systolic (mm Hg) 96 03/24/2019 [facility] Diastolic (mm Hg) 71 03/24/2019 [facility] Temperature Oral (F) 98.1 F 03/24/2019 [facility] BMI Calculated 45.24 03/23/2019 [facility] Height 167.64 cm 03/23/2019 [facility] Weight 127.136 03/23/2019 [facility] BMI Calculated 43.67 03/23/2019 [facility] Weight 122.727 03/23/2019 [facility] Height 167.64 cm 03/23/2019 [facility] Heart Rate 69 03/07/2019 [facility] Respitory Rate 16 03/07/2019 [facility] Systolic (mm Hg) 120 03/07/2019 [facility] Diastolic (mm Hg) 81 03/07/2019 [facility] Temperature Oral (F) 98.5 F 03/07/2019 [facility] Systolic (mm Hg) 113 03/07/2019 [facility] Diastolic (mm Hg) 77 03/07/2019 [facility] Respitory Rate 16 03/07/2019 [facility] Temperature Oral (F) 98.4 F 03/07/2019 [facility] Heart Rate 74 03/07/2019 [facility] Systolic (mm Hg) 120 03/07/2019 [facility] Diastolic (mm Hg) 83 03/07/2019 [facility] Heart Rate 78 03/07/2019 [facility] Respitory Rate 16 03/07/2019 [facility] Temperature Oral (F) 98.2 F 03/07/2019 [facility] Height 167.64 cm 03/01/2019 [facility] Weight 129 03/01/2019 [facility] BMI Calculated 45.9 03/01/2019 [facility] Weight 136.364 03/01/2019 [facility] Heart Rate 64 01/31/2019 [facility] Systolic (mm Hg) 140 01/31/2019 [facility] Diastolic (mm Hg) 74 01/31/2019 [facility] Systolic (mm Hg) 138 01/31/2019 [facility] Diastolic (mm Hg) 78 01/31/2019 [facility] Heart Rate 64 01/31/2019 [facility] Systolic (mm Hg) 147 01/31/2019 [facility] Diastolic (mm Hg) 88 01/31/2019 [facility] Heart Rate 61 01/31/2019 [facility] Temperature Oral (F) 98.8 F 01/31/2019 [facility] Temperature Oral (F) 98.7 F 01/31/2019 [facility] Respitory Rate 16 01/31/2019 [facility] Temperature Oral (F) 98.9 F 01/31/2019 [facility] Respitory Rate 18 01/31/2019 [facility] Respitory Rate 18 01/31/2019 [facility] BMI Calculated 45.29 01/27/2019 [facility] Height 167.64 cm 01/27/2019 [facility] Weight 127.273 01/27/2019 [facility] Weight 125 01/27/2019 [facility] BMI Calculated 44.48 01/27/2019 [facility] Height 167.64 cm 01/27/2019 [facility] Systolic (mm Hg) 135 12/13/2018 [facility] Diastolic (mm Hg) 74 12/13/2018 [facility] Respitory Rate 17 12/13/2018 [facility] Heart Rate 85 12/13/2018 [facility] Temperature Oral (F) 98.8 F 12/13/2018 [facility] BMI Calculated 48.84 12/13/2018 [facility] Weight 137.25 12/13/2018 [facility] Height 167.64 cm 12/13/2018 [facility] Respitory Rate 18 12/13/2018 [facility] Temperature Oral (F) 99.2 F 12/13/2018 [facility] Heart Rate 87 12/13/2018 [facility] Systolic (mm Hg) 130 12/13/2018 [facility] Diastolic (mm Hg) 83 12/13/2018 [facility] Systolic (mm Hg) 125 12/09/2018 [facility] Diastolic (mm Hg) 86 12/09/2018 [facility] Respitory Rate 18 12/09/2018 [facility] Heart Rate 61 12/09/2018 [facility] Temperature Oral (F) 99.1 F 12/09/2018 [facility] Temperature Oral (F) 98.5 F 12/09/2018 [facility] Systolic (mm Hg) 124 12/09/2018 [facility] Diastolic (mm Hg) 85 12/09/2018 [facility] Respitory Rate 18 12/09/2018 [facility] Heart Rate 106 12/09/2018 [facility] Systolic (mm Hg) 117 12/09/2018 [facility] Diastolic (mm Hg) 80 12/09/2018 [facility] Respitory Rate 18 12/09/2018 [facility] Heart Rate 97 12/09/2018 [facility] Temperature Oral (F) 98.4 F 12/09/2018 [facility] Weight 58.778 12/04/2018 [facility] Height 167.64 cm 12/04/2018 [facility] BMI Calculated 46.29 12/04/2018 [facility] Weight 130.1 12/04/2018 [facility] BMI Calculated 44.96 12/03/2018 [facility] Weight 126.364 12/03/2018 [facility] Height 167.64 cm 12/03/2018 [facility] Systolic (mm Hg) 108 10/12/2018 [facility] Diastolic (mm Hg) 76 10/12/2018 [facility] Heart Rate 99 10/12/2018 [facility] Respitory Rate 17 10/12/2018 [facility] Temperature Oral (F) 98.3 F 10/12/2018 [facility] Heart Rate 90 10/12/2018 [facility] Temperature Oral (F) 97.9 F 10/12/2018 [facility] Systolic (mm Hg) 112 10/12/2018 [facility] Diastolic (mm Hg) 77 10/12/2018 [facility] Respitory Rate 18 10/12/2018 [facility] Systolic (mm Hg) 112 10/12/2018 [facility] Diastolic (mm Hg) 78 10/12/2018 [facility] Respitory Rate 16 10/12/2018 [facility] Heart Rate 76 10/12/2018 [facility] Temperature Oral (F) 98.0 F 10/12/2018 [facility] Weight 133.182 10/11/2018 [facility] Height 167.64 cm 10/11/2018 [facility] BMI Calculated 47.39 10/11/2018 [facility] Systolic (mm Hg) 94 10/11/2018 [facility] Diastolic (mm Hg) 64 10/11/2018 [facility] Temperature Oral (F) 98.2 F 10/11/2018 [facility] Respitory Rate 17 10/11/2018 [facility] Heart Rate 85 10/11/2018 [facility] Respitory Rate 16 10/11/2018 [facility] Heart Rate 71 10/11/2018 [facility] Temperature Oral (F) 98 F 10/11/2018 [facility] Systolic (mm Hg) 122 10/11/2018 [facility] Diastolic (mm Hg) 75 10/11/2018 [facility] Weight 133.005 10/11/2018 [facility] Temperature Oral (F) 98.6 F 10/11/2018 [facility] Heart Rate 88 10/11/2018 [facility] Respitory Rate 17 10/11/2018 [facility] Systolic (mm Hg) 130 10/11/2018 [facility] Diastolic (mm Hg) 78 10/11/2018 [facility] Temperature Oral (F) 97.6 F 09/06/2018 [facility] Respitory Rate 19 09/06/2018 [facility] Heart Rate 73 09/06/2018 [facility] Systolic (mm Hg) 118 09/06/2018 [facility] Diastolic (mm Hg) 75 09/06/2018 [facility] Respitory Rate 17 09/06/2018 [facility] Temperature Oral (F) 98.2 F 09/06/2018 [facility] Heart Rate 82 09/06/2018 [facility] Systolic (mm Hg) 120 09/06/2018 [facility] Diastolic (mm Hg) 74 09/06/2018 [facility] Temperature Oral (F) 98 F 09/06/2018 [facility] Height 167.64 cm 09/06/2018 [facility] Heart Rate 82 09/06/2018 [facility] Respitory Rate 18 09/06/2018 [facility] Systolic (mm Hg) 142 09/06/2018 [facility] Diastolic (mm Hg) 87 09/06/2018 [facility] BMI Calculated 42.86 09/06/2018 [facility] Weight 120.455 09/06/2018 [facility] Systolic (mm Hg) 111 08/30/2018 [facility] Diastolic (mm Hg) 72 08/30/2018 [facility] Temperature Oral (F) 98.0 F 08/30/2018 [facility] Respitory Rate 16 08/30/2018 [facility] Heart Rate 73 08/30/2018 [facility] Heart Rate 72 08/30/2018 [facility] Respitory Rate 16 08/30/2018 [facility] Systolic (mm Hg) 110 08/30/2018 [facility] Diastolic (mm Hg) 75 08/30/2018 [facility] Temperature Oral (F) 98.2 F 08/30/2018 [facility] Respitory Rate 18 08/30/2018 [facility] Systolic (mm Hg) 110 08/30/2018 [facility] Diastolic (mm Hg) 62 08/30/2018 [facility] Heart Rate 81 08/30/2018 [facility] Temperature Oral (F) 98.1 F 08/30/2018 [facility] Height 167.64 cm 08/24/2018 [facility] Weight 127.727 08/24/2018 [facility] BMI Calculated 45.45 08/24/2018 [facility] BMI Calculated 50.03 08/24/2018 [facility] Weight 136.364 08/24/2018 [facility] Height 165.1 cm 08/24/2018 [facility] Weight 120.455 08/24/2018 [facility] Temperature Oral (F) 98.4 F 05/22/2018 [facility] Respitory Rate 18 05/22/2018 [facility] Heart Rate 57 05/22/2018 [facility] Systolic (mm Hg) 113 05/22/2018 [facility] Diastolic (mm Hg) 78 05/22/2018 [facility] Respitory Rate 18 05/22/2018 [facility] Heart Rate 68 05/22/2018 [facility] Temperature Oral (F) 98.3 F 05/22/2018 [facility] Systolic (mm Hg) 109 05/22/2018 [facility] Diastolic (mm Hg) 71 05/22/2018 [facility] Systolic (mm Hg) 107 05/22/2018 [facility] Diastolic (mm Hg) 71 05/22/2018 [facility] Temperature Oral (F) 98.2 F 05/22/2018 [facility] Heart Rate 55 05/22/2018 [facility] Respitory Rate 17 05/22/2018 [facility] Weight 120.909 05/17/2018 [facility] BMI Calculated 43.02 05/17/2018 [facility] Height 167.64 cm 05/17/2018 [facility] Weight 119.091 05/17/2018 [facility] Temperature Oral (F) 97.5 F 01/13/2018 [facility] Respitory Rate 18 01/13/2018 [facility] Systolic (mm Hg) 121 01/13/2018 [facility] Diastolic (mm Hg) 81 01/13/2018 [facility] Heart Rate 86 01/13/2018 [facility] Height 167.64 cm 01/12/2018 [facility] BMI Calculated 38.82 01/12/2018 [facility] Weight 109.091 01/12/2018 [facility] Heart Rate 106 01/12/2018 [facility] Systolic (mm Hg) 115 01/12/2018 [facility] Diastolic (mm Hg) 84 01/12/2018 [facility] Temperature Oral (F) 98.8 F 01/12/2018 [facility] Respitory Rate 20 01/12/2018 [facility] Heart Rate 72 12/31/2016 [facility] Systolic (mm Hg) 94 12/31/2016 [facility] Diastolic (mm Hg) 62 12/31/2016 [facility] Respitory Rate 18 12/31/2016 [facility] Heart Rate 64 12/31/2016 [facility] Temperature Oral (F) 98.4 F 12/31/2016 [facility] Systolic (mm Hg) 87 12/31/2016 [facility] Diastolic (mm Hg) 56 12/31/2016 [facility] Systolic (mm Hg) 139 12/31/2016 [facility] Diastolic (mm Hg) 99 12/31/2016 [facility] Respitory Rate 18 12/31/2016 [facility] Temperature Oral (F) 98.5 F 12/31/2016 [facility] Heart Rate 50 12/31/2016 [facility] Weight 109 12/31/2016 [facility] Respitory Rate 18 12/31/2016 [facility] Temperature Oral (F) 98 F 12/31/2016 [facility] BMI Calculated 38.82 12/31/2016 [facility] Height 167.64 cm 12/31/2016 [facility] Weight 109.091 12/31/2016 [facility] Systolic (mm Hg) 110 12/26/2016 [facility] Diastolic (mm Hg) 74 12/26/2016 [facility] Respitory Rate 18 12/26/2016 [facility] Heart Rate 62 12/26/2016 [facility] Temperature Oral (F) 98 F 12/26/2016 [facility] Systolic (mm Hg) 110 12/26/2016 [facility] Diastolic (mm Hg) 74 12/26/2016 [facility] Respitory Rate 17 12/26/2016 [facility] Heart Rate 60 12/26/2016 [facility] Temperature Oral (F) 98 F 12/26/2016 [facility] Weight 109.091 12/25/2016 [facility] BMI Calculated 38.82 12/25/2016 [facility] Height 167.64 cm 12/25/2016 [facility] Systolic (mm Hg) 109 12/25/2016 [facility] Diastolic (mm Hg) 73 12/25/2016 [facility] Respitory Rate 16 12/25/2016 [facility] Height 167.64 cm 12/25/2016 [facility] BMI Calculated 38.82 12/25/2016 [facility] Weight 109.091 12/25/2016 [facility] Temperature Oral (F) 98.2 F 12/25/2016 [facility] Heart Rate 62 12/25/2016 [facility] Systolic (mm Hg) 132 07/20/2016 [facility] Diastolic (mm Hg) 84 07/20/2016 [facility] Heart Rate 70 07/20/2016 [facility] Respitory Rate 16 07/20/2016 [facility] Temperature Oral (F) 98.3 F 07/20/2016 [facility] Weight 104.545 07/20/2016 [facility] BMI Calculated 37.2 07/20/2016 [facility] Height 167.64 cm 07/20/2016 [facility] Temperature Oral (F) 98.4 F 07/20/2016 [facility] Systolic (mm Hg) 120 07/20/2016 [facility] Diastolic (mm Hg) 81 07/20/2016 [facility] Heart Rate 66 07/20/2016 [facility] Respitory Rate 15 07/20/2016 [facility] Systolic (mm Hg) 111 04/23/2016 [facility] Diastolic (mm Hg) 76 04/23/2016 [facility] Respitory Rate 20 04/23/2016 [facility] Heart Rate 84 04/23/2016 [facility] Temperature Oral (F) 97.6 F 04/23/2016 [facility] Height 157.48 cm 04/23/2016 [facility] Systolic (mm Hg) 113 04/23/2016 [facility] Diastolic (mm Hg) 78 04/23/2016 [facility] Heart Rate 85 04/23/2016 [facility] Respitory Rate 20 04/23/2016 [facility] Temperature Oral (F) 98.2 F 04/23/2016 [facility] Weight 94.091 04/23/2016 [facility] BMI Calculated 37.94 04/23/2016 [facility] Systolic (mm Hg) 112 04/16/2016 [facility] Diastolic (mm Hg) 79 04/16/2016 [facility] Respitory Rate 20 04/16/2016 [facility] Heart Rate 88 04/16/2016 [facility] Temperature Oral (F) 98.2 F 04/16/2016 [facility] Respitory Rate 18 04/16/2016 [facility] Heart Rate 109 04/16/2016 [facility] Systolic (mm Hg) 111 04/16/2016 [facility] Diastolic (mm Hg) 78 04/16/2016 [facility] Height 167.64 cm 04/16/2016 [facility] Temperature Oral (F) 98.7 F 04/16/2016 [facility] BMI Calculated 36.72 04/16/2016 [facility] Weight 103.182 04/16/2016 [facility] Systolic (mm Hg) 110 04/14/2016 [facility] Diastolic (mm Hg) 70 04/14/2016 [facility] Heart Rate 70 04/14/2016 [facility] Temperature Oral (F) 98 F 04/14/2016 [facility] Systolic (mm Hg) 124 04/14/2016 [facility] Diastolic (mm Hg) 79 04/14/2016 [facility] Respitory Rate 18 04/14/2016 [facility] Heart Rate 70 04/14/2016 [facility] Temperature Oral (F) 98 F 04/14/2016 [facility] Systolic (mm Hg) 107 04/14/2016 [facility] Diastolic (mm Hg) 68 04/14/2016 [facility] Respitory Rate 18 04/14/2016 [facility] Heart Rate 74 04/14/2016 [facility] Temperature Oral (F) 98.2 F 04/14/2016 [facility] BMI Calculated 36.72 04/14/2016 [facility] Weight 103.182 04/14/2016 [facility] Height 167.64 cm 04/14/2016 [facility] Respitory Rate 18 04/14/2016 [facility] Systolic (mm Hg) 105 02/24/2016 [facility] Diastolic (mm Hg) 68 02/24/2016 [facility] Heart Rate 63 02/24/2016 [facility] Respitory Rate 16 02/24/2016 [facility] Heart Rate 86 02/24/2016 [facility] Respitory Rate 18 02/24/2016 [facility] BMI Calculated 35.75 02/24/2016 [facility] Height 167.64 cm 02/24/2016 [facility] Weight 100.455 02/24/2016 [facility] Temperature Oral (F) 98.1 F 02/24/2016 [facility] Systolic (mm Hg) 124 02/24/2016 [facility] Diastolic (mm Hg) 84 02/24/2016 [facility] Temperature Oral (F) 98.1 F 01/17/2016 [facility] Heart Rate 61 01/17/2016 [facility] Respitory Rate 18 01/17/2016 [facility] Systolic (mm Hg) 122 01/17/2016 [facility] Diastolic (mm Hg) 82 01/17/2016 [facility] Heart Rate 62 01/17/2016 [facility] Systolic (mm Hg) 126 01/17/2016 [facility] Diastolic (mm Hg) 78 01/17/2016 [facility] Temperature Oral (F) 98.0 F 01/17/2016 [facility] Respitory Rate 16 01/17/2016 [facility] Heart Rate 94 01/17/2016 [facility] Respitory Rate 18 01/17/2016 [facility] Systolic (mm Hg) 120 01/17/2016 [facility] Diastolic (mm Hg) 74 01/17/2016 [facility] Weight 100.455 01/17/2016 [facility] Height 167.64 cm 01/17/2016 [facility] BMI Calculated 35.75 01/17/2016 [facility] Temperature Oral (F) 98 F 01/17/2016 [facility] Respitory Rate 18 10/13/2015 [facility] Heart Rate 70 10/13/2015 [facility] Temperature Oral (F) 98.2 F 10/13/2015 [facility] Systolic (mm Hg) 118 10/13/2015 [facility] Diastolic (mm Hg) 80 10/13/2015 [facility] Height 167.64 cm 10/13/2015 [facility] BMI Calculated 36.23 10/13/2015 [facility] Weight 101.818 10/13/2015 [facility] Heart Rate 74 10/13/2015 [facility] Respitory Rate 20 10/13/2015 [facility] Temperature Oral (F) 98.2 F 10/13/2015 [facility] Systolic (mm Hg) 117 10/13/2015 [facility] Diastolic (mm Hg) 78 10/13/2015 [facility] Respitory Rate 18 07/04/2015 [facility] Heart Rate 61 07/04/2015 [facility] Temperature Oral (F) 98.0 F 07/04/2015 [facility] Systolic (mm Hg) 100 07/04/2015 [facility] Diastolic (mm Hg) 58 07/04/2015 [facility] Respitory Rate 18 07/04/2015 [facility] Heart Rate 70 07/04/2015 [facility] Temperature Oral (F) 98.4 F 07/04/2015 [facility] Systolic (mm Hg) 104 07/04/2015 [facility] Diastolic (mm Hg) 66 07/04/2015 [facility] Heart Rate 82 07/04/2015 [facility] Respitory Rate 20 07/04/2015 [facility] Temperature Oral (F) 98.2 F 07/04/2015 [facility] Systolic (mm Hg) 126 07/04/2015 [facility] Diastolic (mm Hg) 83 07/04/2015 [facility] Weight 107.273 07/04/2015 [facility] Systolic (mm Hg) 110 05/17/2015 [facility] Diastolic (mm Hg) 78 05/17/2015 [facility] Temperature Oral (F) 98.2 F 05/17/2015 [facility] Heart Rate 55 05/17/2015 [facility] Heart Rate 61 05/17/2015 [facility] Systolic (mm Hg) 106 05/17/2015 [facility] Diastolic (mm Hg) 65 05/17/2015 [facility] Systolic (mm Hg) 101 05/17/2015 [facility] Diastolic (mm Hg) 51 05/17/2015 [facility] Heart Rate 60 05/17/2015 [facility] Respitory Rate 18 05/17/2015 [facility] Temperature Oral (F) 99.6 F 05/17/2015 [facility] Temperature Oral (F) 99.6 F 05/17/2015 [facility] Height 167.64 cm 05/17/2015 [facility] BMI Calculated 39.95 05/17/2015 [facility] Weight 112.273 05/17/2015 [facility] Respitory Rate 18 05/17/2015 [facility] Temperature Oral (F) 98.9 F 05/15/2015 [facility] Heart Rate 51 05/15/2015 [facility] Respitory Rate 18 05/15/2015 [facility] Systolic (mm Hg) 114 05/15/2015 [facility] Diastolic (mm Hg) 74 05/15/2015 [facility] Heart Rate 76 05/15/2015 [facility] Respitory Rate 18 05/15/2015 [facility] Systolic (mm Hg) 131 05/15/2015 [facility] Diastolic (mm Hg) 81 05/15/2015 [facility] Temperature Oral (F) 98.1 F 05/15/2015 [facility] Height 167.64 cm 05/15/2015 [facility] BMI Calculated 43.67 05/15/2015 [facility] Weight 122.727 05/15/2015 [facility] Temperature Oral (F) 98.3 F 05/15/2015 [facility] Systolic (mm Hg) 127 05/15/2015 [facility] Diastolic (mm Hg) 74 05/15/2015 [facility] Respitory Rate 20 05/15/2015 [facility] Heart Rate 76 05/15/2015 [facility] Respitory Rate 18 02/14/2015 [facility] Systolic (mm Hg) 105 02/14/2015 [facility] Diastolic (mm Hg) 67 02/14/2015 [facility] Heart Rate 56 02/14/2015 [facility] Heart Rate 57 02/14/2015 [facility] Temperature Oral (F) 98.3 F 02/14/2015 [facility] Respitory Rate 18 02/14/2015 [facility] Systolic (mm Hg) 134 02/14/2015 [facility] Diastolic (mm Hg) 80 02/14/2015 [facility] BMI Calculated 40.11 02/14/2015 [facility] Weight 112.727 02/14/2015 [facility] Temperature Oral (F) 98.6 F 02/14/2015 [facility] Height 167.64 cm 02/14/2015 [facility] Heart Rate 93 02/14/2015 [facility] Respitory Rate 18 02/14/2015 [facility] Systolic (mm Hg) 111 02/14/2015 [facility] Diastolic (mm Hg) 84 02/14/2015 [facility] Diastolic (mm Hg) 78 09/30/2014 [facility] Systolic (mm Hg) 122 09/30/2014 [facility] Temperature Oral (F) 98.3 F 09/30/2014 [facility] Respitory Rate 16 09/30/2014 [facility] Heart Rate 75 09/30/2014 [facility] Temperature Oral (F) 98.2 F 09/30/2014 [facility] Diastolic (mm Hg) 71 09/30/2014 [facility] Heart Rate 71 09/30/2014 [facility] Systolic (mm Hg) 131 09/30/2014 [facility] Respitory Rate 18 09/30/2014 [facility] Respitory Rate 18 09/30/2014 [facility] Heart Rate 76 09/30/2014 [facility] Diastolic (mm Hg) 87 09/30/2014 [facility] Temperature Oral (F) 98.4 F 09/30/2014 [facility] Height 167.64 cm 09/30/2014 [facility] Systolic (mm Hg) 127 09/30/2014 [facility] BMI Calculated 42.05 09/30/2014 [facility] Weight 118.182 09/30/2014 [facility] Encounters Location Location Details Encounter Type Encounter Number Reason For Visit Attending Provider ADM Date DC Date Status Source [facility] [id number] Mario Gu 09/30/2014 09/30/2014 [facility] [id number] Juancho Malloy 02/14/2015 02/14/2015 [facility] [id number] 07 Temitopemary Green 05/15/2015 05/15/2015 [facility] [id number] Rosy Diaz 05/17/2015 05/17/2015 [facility] [id number] Hina Finley 07/04/2015 07/04/2015 [facility] [id number] Rosy Diaz 10/13/2015 10/13/2015 [facility] [id number] Salvador Gutierrezana 01/17/2016 01/17/2016 [facility] [id number] 12 Wilmar Mcgraw 02/24/2016 02/24/2016 [facility] Emergency [id number] Cristino Gilberteal 04/14/2016 04/14/2016 [facility] Emergency [id number] Jeannie Wahluyen 04/16/2016 04/16/2016 [facility] Emergency [id number] Rosalind Floydooqi 04/23/2016 04/23/2016 [facility] Emergency [id number] Jama Lynya 07/20/2016 07/20/2016 [facility] Outpatient [id number] STEVEN TAPIA 11/24/2016 [facility] Emergency [id number] Richard Owen 12/25/2016 12/26/2016 [facility] Observation [id number] Alec Vicente Jr 12/31/2016 12/31/2016 [facility] Emergency [id number] Isacc Melanie 01/12/2018 01/13/2018 [facility] Inpatient [id number] Oralia Floydooqui 05/17/2018 05/22/2018 [facility] Outpatient Imaging [place] [facility] [id number] 00 Tracie Stahl 06/24/2018 06/25/2018 [facility] Inpatient [id number] Barton Elham 08/24/2018 08/30/2018 [facility] Emergency [id number] Ruth Jay 09/06/2018 09/06/2018 [facility] Emergency [id number] Temitope Green 10/11/2018 10/11/2018 [facility] Inpatient [id number] Lexx Sauer 10/11/2018 10/12/2018 [facility] Inpatient [id number] Terrence Verdugo 12/03/2018 12/09/2018 [facility] Emergency [id number] Dante Martin 12/13/2018 12/13/2018 [facility] Inpatient [id number] Jo White 01/27/2019 01/31/2019 [facility] Inpatient [id number] Shabnam Campos 03/01/2019 03/08/2019 [facility] Observation [id number] Jose L Cunningham 03/23/2019 03/25/2019 [facility] Emergency [id number] Eliot [place] 04/03/2019 04/04/2019 [facility] Emergency [id number] Eliot Bebeto 05/16/2019 05/16/2019 [facility] Emergency [id number] Karthik Hogan 05/25/2019 05/25/2019 [facility] Outpatient [id number] Edwardo Rodriguez 11/02/2019 11/03/2019 [facility] Observation [id number] Salim Jorge L 11/02/2019 11/04/2019 [facility] Inpatient [id number] Isa Michelleismael 03/23/2020 03/26/2020 [facility] Procedures Procedure Code Date Perfomer Comments Source Incision AND drainage [id number] 05/17/2018 [facility], [facility]ole[facility] [id number] [facility] Assessment and Plan Assessment and Plan [...] follow up on discharge call Dr Huston [phone] fax no. [phone] ANTIBIOTICS: Vancomycin day 3 First Dose Antibiotic: [...] Blood Collected: 03/23/2020 07:20 Verified by: MICROBIOLOGY, [facility] - 03/25/2020 11:31 Collected: 03/23/2020 07:20 Verified by: MICROBIOLOGY, [facility] - 03/25/2020 11:31 No Growth At 2 Days Collected: 03/23/2020 07:20 Verified by: MICROBIOLOGY, [facility] - 03/25/2020 11:31 No Growth At 2 Days Collected: 03/23/2020 07:20 Verified by: MICROBIOLOGY, [facility] - 03/25/2020 11:31 IMAGING: Imaging Studies (last 36 hours) (none) Scheduled Meds (1): 03/23/20 vancomycin + Sodium Chloride 0. 9% IV 250 mL 1,000 mg IVPB [id number] 250 ml/hr This note was dictated with the use of [employer] speech recognition software. Please use best judgement when interpreting and excuse any car shifter errors. Extracted from:Title: Clinical Document Author: Jed Huston MD Date: 03/23/20 [facility] INFECTIOUS DISEASE CONSULTATION NOTE Nikole KATE [...] Water IV (Dextrose 50% Syringe (D50W)), acetaminophen-hydrocodone ([place] 10/325 oral tablet), acetaminophen, glucagon, hydromorphone (Dilaudid), [...] note was dictated with the use of [employer] speech recognition software. Please use best judgement when interpreting and excuse any car shifter errors. 03/26/2020 [facility] Extracted from:Title: Clinical [...] home meds SCDs observation full code 11/04/2019 [facility] Extracted from:Title: ID Consultation No te Author: Mahesh Wilkins MD Date: 03/24/19 [facility] INFECTIOUS DISEASE CONSULTATION NOTE Nikole Bob M.D. M. Farhan Khan, M.D. Syed W. Hasan, M.D. REQUESTING PHYSICIAN: Dr. Cunningham REASON FOR CONSULTATION: Fever, right axillar nodule/pain HISTORY OF PRESENT ILLNESS: 33 yo female with history of obesity, de pression, polycystic ovary syndrome, recurrent skin infection, hidradenitis suppurativa presents to [facility] ED for fever and R axillary [...] 9% IV 500 mL 1.75 gm IVPB [id number] 250 ml/hr ALLERGIES: Allergies: Keflex, clindamycin, ciprofloxacin, [...] planned, still have recommended patient to see petroleum refining equipment operator as outpatient to rule out any other underlying possible immune issue leading to prior recurrent skin infections - Based on patient's history, [facility] patient is having first current skin inflammatory [...] will defer this ultimately to patient's regular professor of surgery Thank you for this consult. ID will [...] written and given to patient. Diagnosis Abscess (GXX47-BT L02.91, Working, Medical). Forunculosis (CRS27-ZC L02.92, Working, Medical). Hidradenitis axillaris (NCS11-BD L73.2, Working, Medical). Obesity (FWA93-HO E66.9, Working, Medical). Obesity (DXG92-FW E66.9, Working, Medical). PCOS (polycystic ovarian syndrome) ([id number]-ZL E28.2, Working, Medical). PCOS (polycystic ovarian syndrome) (JQS27-MD E28.2, Working, Medical). Sepsis (PFT02-JC A41.9, Working, Medical). Sepsis (QDN26-BE A41.9, Working, Medical). Course Improving. Education and [...] follow up on discharge call Dr Huston [phone] SUBJECTIVE: Seen and examined. Events noted. VITAL [...] Meds (5): 03/01/19 enoxaparin 40 mg SUB-Q [id number] 03/02/19 spironolactone 50 mg PO Daily 03/01/19 vancomycin + Sodium Chloride 0. 9% IV 250 mL 1.5 gm IVPB [id number] 166.67 ml/hr 03/03/19 zinc sulfate 220 mg PO Daily 03/02/19 zolpidem (Ambien) 10 mg PO Bedt vero Extracted from:Title: ID Consultation Note Author: Mahesh Wilkins MD Date: 03/01/19 [facility] INFECTIOUS DISEASE CONSULTATION NOTE Nikole Bob M.D. M. Farhan Khan, M.D. Syed W. Hasan, M.D. REQUESTING PHYSICIAN: Dr. Candelario REASON FOR CONSULTATION: Recurrent skin infection HISTORY OF PRESENT ILLNESS: 33 yo F with PMH including obesity, depr ession, PCOS, hidrenaitis suppurativa,, recurrent skin infection, antibiotic allergies, who presented to [facility] 02/28/19 due to worsening right axillary/breast tenderness and new skin nodules. Patient had been recently hospitalized January 2019 for vulvar/groin infection that improved after discharge and completing oral antibiotic course. She also since then had newer furuncle on bilateral calf (one each) that had resolevd with doxycycline+Sivextro treatment by professor of surgery that finished this past Thursday. She notes also undergoing frequent muporicin nasal decolonization, chlorhexidine and bleach baths as recommended by her professor of surgery. In last few days though she noted [...] Meds (2): 03/01/19 enoxaparin 40 mg SUB-Q [id number] 03/01/19 vancomycin + Sodium Chloride 0. 9% IV 250 mL 1.5 gm IVPB [id number] 166.67 ml/hr ALLERGIES: Allergies: Keflex, clindamycin, ciprofloxacin, [...] from any purulent drainage - F/u outpatient professor of surgery after dis charge; also may need to see petroleum refining equipment operator as outpatient for immunodeficiency workup given [...] INFECTIOUS DISEASES PROGRESS NOTE Jed Huston M.D. [facility] [phone] Reason For Follow up: Hidradenitis SUBJECTIVE: Seen [...] 01/27/19 enoxaparin (Lovenox) 40 mg SUB- Q [id number] 01/27/19 non-formulary (*Please bring pt 's own [...] 01/27/19 enoxaparin (Lovenox) 40 mg SUB- Q [id number] 01/27/19 non-formulary (*Please bring pt 's own [...] taken for H&P is 40 min. 01/31/2019 [facility] Extracted from:Title: ID Progress Note Author: Mahesh Wilkins MD Date: 12/09/18 [facility] INFECTIOUS DISEASES PROGRESS NOTE Nikole Bob M.DM. [...] Meds (4): 12/03/18 enoxaparin 40 mg SUB-Q [id number] 12/05/18 spironolactone 50 mg PO Daily 12/08/18 [...] also plan patient to follow-up with her professor of surgery as outpatient routinely Above discussed with hospitalist Dr. Mendoza CURRENT ANTIMICROBIALS: IV vancomycin day # 6 Extracted from:Title: Clinical Document Author: Tracie Stahl MD Date: 12/06/18 Post Operative Procedure Note A complete detailed Operative Report must follow within 24 hours of the procedure. Pre-Operative Diagnosis: Left thigh abscess x 2 Post-Operative Diagnosis: Same Surgeon/Endoscopist/Physician(s): Raoul Stahl Overhead Crane Operator(s): None Procedure Performed: Incision and drainage of left thigh abscess x 2 Estimated Blood Loss: Minimal Specimens Removed: Cultures taken Findings of the Procedure: Inner thigh abscess cavity and small upper thigh abscess Dictation ID for complete detailed Operative Report:: [id number] Extracted from:Title: Clinical Document Author: Jde Huston MD Date: 12/04/18 [facility] INFECTIOUS DISEASE CONSULTATION NOTE JED HUSTON [...] te Author: Mahesh Wilkins MD Date: 10/11/18 [facility] INFECTIOUS DISEASE CONSULTATION NOTE Mahesh Wilkins M.D. Zoey Hartley M.D. Nikole Claros M.D. REQUESTING PHYSICIAN: Dr. Sauer REASON FOR CONSULTATION: Recurrent skin infection HISTORY OF PRESENT ILLNESS: 32 yo F with PMH including PCOS, hiadren itis suppurativa, recurrent skin lesion/boil on abdomen/thigh with MSSA superinfection , multiple antibiotic allergies who presented to [facility] 10/11/18 due to worsening/recurrent painful skin lesion. I had seen patient before for similar issues in past several months- patient has been dealing with this for past year. After Aug 2018 hospitalization she had finished IV vancomycin course as well as followed with professor of surgery who had diagnosed her with hiadrenitis suppurative [...] 10/11/18 enoxaparin (Lovenox) 40 mg SUB- Q [id number] 10/11/18 linezolid 600 mg PO [id number] ALLERGIES: Allergies: Keflex, clindamycin, ciprofloxacin, Bactrim, penicillin [...] is closely followed up by her primary professor of surgery who comes in for evaluation of multiple [...] 1 dose of vancomycin and transferred to [facility]. At this time patient denies having any [...] DVT prophylaxis: Lovenox Disposition: Likely tomorrow. 10/12/2018 [facility] Extracted from:Title: Clinical Document Author: Oralia Lizarraga [...] 9% IV 250 mL 1,500 mg IVPB [id number] 166.67 ml/hr Unscheduled Meds (2): 08/27/18 lidocaine [...] sterile water 20 mL 2 gm IV [id number] 240 ml/hr 05/17/18 enoxaparin 40 mg SUB-Q [id number] 05/20/18 vancomycin + Sodium Chloride 0. 9% IV 250 mL 1,500 mg IVPB [id number] 166.67 ml/hr Unscheduled Meds (2): 05/17/18 influenza [...] Note Author: Mahesh Wilkins MD Date: 05/18/18 [facility] INFECTIOUS DISEASE CONSULTATION NOTE Nikole Bob M.D. M. Farhan Khan, M.D. Syed W. Hasan, M.D. REQUESTING PHYSICIAN: Dr. Lizarraga REASON FOR CONSULTATION: Abdominal wall purulent cellulitis/phelgmon HISTORY OF PRESENT ILLNESS: Colleen Bedolla is a 32 yo F with PMH including PCOS who presented to [facility] due to worsening cellulitis on abdomen [...] developed hives) and seeing outside ID clinical programmer in [place]. She still notes significant pain and scant [...] Meds (2): 05/17/18 enoxaparin 40 mg SUB-Q [id number] 05/17/18 vancomycin + Sodium Chloride 0. 9% IV 250 mL 1,000 mg IVPB [id number] 250 ml/hr ALLERGIES: Allergies (5) Active Reaction [...] joe ideation. 5. DVT prophylaxis. Lovenox. 05/22/2018 [facility] Plan of Care No Data Provided [...] on: 11/02/19 1quit smoking in may 25 [facility] Social History TypeResponse Alcohol Never Employment/School Status: [...] on: 03/23/20 1quit smoking in may 25 [facility] Social History TypeResponse Substance Abuse Use: [...] No; Reg Smoking Cessation Counseling No 02/14/2015 [facility] Family History No Data Provided for This Section Advance Directives No Data Provided for This Section Functional Status No Data Provided for This Section
--- OUTSIDE RECORDS SUMMARY | 2020-04-17 20:34 | XMS REPORT | Continuity of Care Document ---
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 300 MG / Codeine Phosphate 30 MG Oral Tablet [Tylenol with Codeine #3] 2019-03-07 22:14:00 Yes 1 tab, PO, Q6H, PRN Pain, X 7 day, # 28 tab, 0 Refill(s) [facility] Doxycycline Monohydrate 100 MG Oral Tablet 2019-03-07 22:14:00 Yes 100 mg = 1 tab, PO, Q12H, X 10 day, # 20 tab, 0 Refill(s), Pharmacy: [facility] [id number] [facility] Acetaminophen 325 MG / Hydrocodone Bitartrate 10 MG Or al Tablet [[place] 10/325] 2019-03-03 18:50:00 No Note s: Do not exceed 4gm/day of acetaminophen. (Same as: [place] 325/10) [facility] Hydromorphone 2019-03-03 18:49:00 No Notes: Same as: Dilaudid [facility] Zinc Sulfate 2019-03-03 14:00:00 No Notes: (Zinc sulfate capsule) - 220 mg Zinc sulfate = 50 mg elemental zinc Same as Zinc Sulfate [facility] Ambien 2019-03-03 02:00:00 No Notes: (Same As: Ambien) [facility] Spironolactone 2019-03-02 19:46:00 No Notes: (Same As: Aldactone) [facility] Lidocaine 2019-03-02 19:17:00 No Notes: Preservative free. (Same as: Xylocaine MPF) [facility] Vancomycin 2019-03-01 18:00:00 No 2001 mg: infuse over 2.5 hours For adult patients only: Round to nearest 250 mg per Medical Staff approval MEDICATION WASTE Product Size: 1000 mg Product Wasted: ___ mg [facility] height weight allergies 2019-03-01 05:00:00 No height weight allergies, RN pls complete HWA for order verificati, Drug form: MISC, Route: MISC, ONCALL, 03/01/19 0:00:00 CDT, Duration: 30 day, Stop date: 03/30/19 23:59:00 CDT, 0 [facility] Enoxaparin 2019-03-01 05:00:00 No Notes: (S zenaida as: Lovenox) [facility] Dextrose 50% Syringe 2019-03-01 04:12:00 No 12.5 gm, 25 mL, Route: IVP, Drug Form: INJ, Dosing Weight 136.364, kg, PRN, PRN Blood Glucose Results, Start date: 02/28/19 23:12:00 CDT, Duration: 30 day, Stop date: 03/30/19 23:11:00 CDT, 0 [facility] Glucagon 2019-03-01 04:12:00 No 1 mg, Route: IM, Drug form: PDR/INJ, PRN, Dosing Weight 136.364, kg, PRN Blood Glucose Results, Start date: 02/28/19 23:12:00 CDT, Duration: 30 day, Stop date: 03/30/19 23:11:00 CDT, 0 [facility] Bisacodyl 2019-03-01 04:12:00 No Notes: (Same As: Dulcolax, Bisco-Lax) [facility] Ondansetron 2019-03-01 04:12:00 No Notes: (Same as: Zofran) MEDICATION WASTE Product Size: 4 mg Product Wasted: ___ mg Shahida Soto Acetaminophen 2019-03-01 04:12:00 No Notes: Do not exceed 4 gm/day. (Same as: Tylenol) Shahida Soto Melatonin 2019-03-01 04:12:00 No Notes: (Sa me as: Melatonin) Shahida Soto Magnesium Oxide 2019-03-01 04:09:00 No Notes: (Same as: Mag-Ox 400) Magnesium oxide [id number] elemental magnesium Dose=____mg magnesium oxide (___mg elemental magnesium) Shahida bravo Magnesium Sulfate 2019-03-01 04:09:00 No Notes: WASTE: F/P - Sink; E - Municipal Trash Bin [facility] sodium phosphate 2019-03-01 04:09:00 No Notes: Infuse over 4 hour. Do not infuse phosphorous concurrently in the same line as TPN or IVF that contains calcium. For double lumen central lines, phosphorous may be infused in a separate lumen from TPN. [facility] Nerissa cintron Calcium Gluconate 2019-03-01 04:09:00 No Notes: WASTE: F/P - Sink; E - Municipal Trash Bin [facility] Potassium Chloride 2019-03-01 04:09:00 No Notes: (Same as: K-Dur 20) "Do Not Crush" Give with food and full glass of water For patients unable to swallow tablet, dissolve in one half glass of water. Allow about 2 minutes for the tablets to disintegrate. Stir before giving to prepare slurry and administer. Please exclude Patient s with feeding tube less than 14 Arabic (Dobhoff, J-tube etc) and pediatric and patients. [facility] potassium phosphate 2019-03-01 04:09:00 No Notes: (Same as: K Phosphate.) Do not infuse phosphorous concurrently in the same line as TPN or IVF that contains calcium. For double lumen central lines, phosphorous may be infused in a separate lumen from TPN. 1 mMol phoshate has 1.47 mEq potassium Infuse over 4 hours [facility] potassium phosphate-sodium phosphate 250 mg-280 mg-160 mg oral powder for reconstitution 2019-03-01 04:09:00 No Notes: (Same as: Phos-NaK) Each 1.5 gm pkt has 250mg phosphorous. Mix w/2.5oz water and stir. [facility] Hydromorphone 2019-03-01 04:08:00 No Notes: Same as: Dilaudid [facility] Tramadol 2019-03-01 04:08:00 No Notes: Not [...] Size: 1000 mg Product Wasted: ___ mg [facility] Vancomycin 2019-03-01 02:50:00 No 2001 mg: infuse over 2.5 hours For adult patients only: Round to nearest 250 mg per Medical Staff approval MEDICATION WASTE Product Size: 1000 mg Product Wasted: ___ mg [facility] NS (Bolus) IV 2019-03-01 02:50:00 No 1,000 mL, 1,000 ml/hr, Infuse Over: 1 hr, Route: IV, 1,000, Drug form: INJ, ONCE, Priority: STAT, Dosing Weight 136.364 kg, Start date: 02/28/19 21:50:00 CDT, Stop date: 02/28/19 21:50:00 CDT, 0 [facility] Zofran 2019-03-01 02:50:00 No Notes: (Same as: Zofran) MEDICATION WASTE Product Size: 4 mg Product Wasted: ___ mg [facility] Morphine 2019-03-01 02:50:00 No Not es: (Same as:MORPhine Sulfate) [facility] Cefazolin 2019-01-31 20:00:00 No Notes: (Same As: Ancef, Kefzol) MEDICATION WASTE Product Size: 1000 mg Product Wasted: ___ mg [facility] ibuprofen 800 mg oral tablet 2019-01-31 19:00:00 Yes 800 mg = 1 tab, PO, Q8H, PRN Pain, Take with food, # 30 tab, 0 Refill(s), Pharmacy: [facility] [address] [place] [address] zinc sulfate 220 mg oral capsule 2019-01-31 18:31:00 Yes 220 mg = 1 cap, PO, Daily, # 30 cap, 0 Refill(s), Pharmacy: [facility] [address] [place] [address] cefpodoxime 200 mg oral tablet 2019-01-31 18:31:00 Yes 400 mg = 2 tab, PO, Q12H, X 10 day, # 40 tab, 0 Refill(s), Pharmacy: [facility] [address] Acetaminophen 300 MG / Codeine Phosphate 30 MG Oral Tablet [Tylenol with Codeine #3] 2019-01-31 15:02:00 No Notes: Do not exceed 4gm/day of acetaminophen. (Same as: Tylenol with Codeine # 3) [facility] ATTN: vanc trough ordered before 8PM dose 2019-01-31 00:30:00 No ATTN: vanc trough ordered before 8PM dose, dont give before lab is drawn, Drug form: MISC, Route: MISC, ONCE, 01/30/19 19:30:00 CDT, Stop date: 01/30/19 19:30:00 CDT [facility] Zinc Sulfate 2019-01-30 14:00:00 No Notes: (Zinc sulfate capsule) - 220 mg Zinc sulfate = 50 mg elemental zinc Same as Zinc Sulfate [facility] vancomycin + Sodium Chloride 0.9% IV 250 mL 2019-01-29 20:00:00 No 2001 mg: infuse over 2.5 hours For adult patients only: Round to nearest 250 mg per Medical Staff approval MEDICATION WASTE Product Size: 1000 mg Product Wasted: ___ mg [facility] vanco trough 2019-01-29 18:30:00 No vanco trough, reminder, Drug form: MISC, Route: MISC, ONCE, 01/29/19 13:30:00 CDT, Stop date: 01/29/19 13:30:00 CDT [facility] cefepime 2019-01-29 04:00:00 No [...] 12:00:00 CDT, Stop date: 01/28/19 12:00:00 CDT [facility] Spironolactone 2019-01-28 14:00:00 No Notes: (Same As: Aldactone) [facility] zolpidem 2019-01-28 02:00:00 No Notes: (Byron e As: Ambien) [facility] Ambien 2019-01-28 02:00:00 No 10 mg, Route: PO, Drug form: TAB, Bedtime, Dosing Weight 127.273, kg, Start date: 01/27/19 21:00:00 CDT, Duration: 30 day, Stop date: 02/25/19 21:00:00 CDT [facility] Adderall 2019-01-27 22:00:00 No 30 mg, Route: PO, BID, Dosing Weight 127.273, kg, Start date: 01/27/19 17:00:00 CDT, Duration: 30 day, Stop date: 02/26/19 9:00:00 CDT [facility] *Please bring pt's own adderall to pharmacy for label* 2019-01-27 21:00:00 No *Please bring p t's own adderall to pharmacy for label*, ATTN:RN, Drug form: MISC, Route: MISC, QSHIFT, 01/27/19 16:00:00 CDT, Duration: 30 day, Stop date: 02/26/19 8:00:00 CDT [facility] Acetaminophen 325 MG / Hydrocodone Bitartrate 5 MG Oral Tabl et [[place] 5/325] 2019-01-27 13:58:00 No Notes: (Same as: [place] 325/5) Do not exceed 4gm/day of acetaminophen. [facility] nn Vancomycin 2019-01-27 10:00:00 No 1 [...] 10:00:00 No Notes: (Same as: Lovenox) Shahida Soot Morphine 2019-01-27 09:37:00 No Not es: (Same [...] day, # 6 tab, 0 Refill(s), Pharmacy: [facility] [id number] Shahida Soto Acetaminophen 300 MG / Codeine [...] 250 mg per Medical Staff approval Shahida Multaniann vancomycin + Sodium Chloride 0.9% IV 250 mL 2018-12-08 02:00:00 No 2001 mg: infuse over 2.5 hours For adult patients only: Round to nearest 250 mg per Medical Staff approval MEDICATION WASTE Product Size: 1000 mg Product Wasted: ___ mg Shahida Charles Dilaudid 2018-12-07 03:08:00 No Notes: (Byron e as: Dilaudid) Shahida Houston Naloxone 2018-12-06 17:49:00 No Notes: Same as Narcan Shahida Soto Ondansetron 2018-12-06 17:49:00 No Notes: (Same as: Zofran) MEDICATION WASTE Product Size: 4 mg Product Wasted: ___ mg Shahida Soto Flumazenil 2018-12-06 17:49:00 No Notes: (S zenaida as: Romazicon) Shahida Soto Hydromorphone 2018-12-06 17:49:00 No Notes: Same as: Dilaudid [facility] Fentanyl 2018-12-06 17:49:00 No Notes: (Same as: Sublimaze) Preservative free. [facility] Hydralazine 2018-12-06 17:49:00 No Notes: (Same as: Apresoline) Push over 5 minutes Shahida Houston dexamethasone (ANES) 2018-12-06 17:33:00 No Route: IV, Drug form: INJ, ONCE, Stop date: 12/06/18 12:33:00 CDT Shahida Soto ondansetron (ANES) 2018-12-06 17:33:00 No Route: IV, Drug form: INJ, ONCE, Stop date: 12/06/18 12:33:00 [facility] 2018-12-06 17:33:00 No IV, ONCE [facility] fentaNYL (ANES) 2018-12-06 17:33:00 No Route: IV, Drug form: INJ, ONCE, Stop date: 12/06/18 12:33:00 CDT [facility] ([facility]ES) 2018-12-06 17:33:00 No Route: IV, Drug form: SOLN, ONCE, Stop date: 12/06/18 12:33:00 CD[facility] propofol (ANES) 2018-12-06 17:33:00 No Route: IV, Drug form: INJ, ONCE, Stop date: 12/06/18 12:33:00 [facility] ([facility]ES) 1000 mg 2018-12-06 16:45:00 No Route: IV, Drug form: INJ, Start date: 12/06/18 11:45:00 CDT, Stop date: 12/06/18 12:45:00 CDT [facility] Lactated Ringers Injection IV (ANES) 1000 [...] nearest 250 mg per Medical Staff approval [facility] Vancomycin 2018-12-04 02:09:00 No 2001 mg: [...] 30 day, Stop date: 01/02/19 21:06:00 CDT [facility] Glucagon 2018-12-04 02:07:00 No 1 mg, Route: IM, Drug form: PDR/INJ, PRN, Dosing Weight 126.364, kg, PRN Blood Glucose Results, Start date: 12/03/18 21:07:00 CDT, Duration: 30 day, Stop date: 01/02/19 21:06:00 CDT [facility] Bisacodyl 2018-12-04 02:07:00 No Notes: (Same As: Dulcolax, Bisco-Lax) [facility] Ondansetron 2018-12-04 02:07:00 No Notes: (Same as: Zofran) MEDICATION WASTE Product Size: 4 mg Product Wasted: ___ mg [facility] Melatonin 2018-12-04 02:07:00 No Notes: (Sa me as: Melatonin) Shahida Soto Acetaminophen 2018-12-04 02:07:00 No Notes: Do not exceed 4 gm/day. (Same as: Tylenol) [facility] Hydromorphone 2018-12-04 02:06:00 No Notes: Same as: Dilaudid [facility] Tramadol 2018-12-04 02:06:00 No Notes: Not to exceed 400mg/day. (Same As: Ultram) [facility] LR IV 1,000 mL 2018-12-04 02:05:00 No 1,000 mL, Rate: 125 ml/hr, Infuse over: 8 hr, Route: IV, Dosing Weight 126.364 kg, Total Volume: 1,000, Start date: 12/03/18 21:05:00 CDT, Duration: 30 day, Stop date: 01/02/19 21:04:00 CDT, 2.47, m2 [facility] Calcium Gluconate 2018-12-04 02:05:00 No Notes: WASTE: F/P - Sink; E - Municipal Trash Bin [facility] Potassium Chloride 2018-12-04 02:05:00 No Notes: (Same as: K-Dur 20) "Do Not Crush" Give with food and full glass of water For patients unable to swallow tablet, dissolve in one half glass of water. Allow about 2 minutes for the tablets to disintegrate. Stir before giving to prepare slurry and administer. Please exclude Patient s with feeding tube less than 14 Arabic (Dobhoff, J-tube etc) and pediatric and patients. [facility] Magnesium Sulfate 2018-12-04 02:05:00 No Notes: WASTE: F/P - Sink; E - [facility] Trash [facility] potassium phosphate 2018-12-04 02:05:00 No Notes: (Same as: K Phosphate.) Do not infuse phosphorous concurrently in the same line as TPN or IVF that contains calcium. For double lumen central lines, phosphorous may be infused in a separate lumen from TPN. 1 mMol phoshate has 1.47 mEq potassium Infuse over 4 hours [facility] sodium phosphate 2018-12-04 02:05:00 No Notes: Infuse over 4 hour. Do not infuse phosphorous concurrently in the same line as TPN or IVF that contains calcium. For double lumen central lines, phosphorous may be infused in a separate lumen from TPN. [facility] Nerissa cintron Magnesium Oxide 2018-12-04 02:05:00 No Notes: (Same as: Mag-Ox 400) Magnesium oxide [id number] elemental magnesium Dose=____mg magnesium oxide (___mg elemental [...] 20:56:00 CDT, Stop date: 12/03/18 20:56:00 CDT [place] christie Soto Sodium Chloride 0.9% (Bolus) IV 2018-12-03 23:40:00 No 1,000 mL, 1000 ml/hr, Infuse Over: 1 hr, Route: IV, 1,000, Drug form: INJ, ONCE, Priority: STAT, Dosing Weight 126.364 kg, Start date: 12/03/18 18:40:00 CDT, Stop date: 12/03/18 18:40:00 CDT [facility] Morphine 2018-12-03 23:40:00 No 4 mg, Route: IVP, ONCE, Dosing Weight 126.364, kg, Priority: STAT, Start date: 12/03/18 18:40:00 CDT, Stop date: 12/03/18 18:40:00 CDT [facility] Vancomycin 2018-12-03 23:40:00 No 1,000 mg, Route: IVPB, ONCE, Dosing Weight 126.364, kg, Priority: STAT, Start date: 12/03/18 18:40:00 CDT, Stop date: 12/03/18 18:40:00 CDT, ABX Indication: Skin/Soft Tissue Infection [facility] Saline Flush 0.9% 2018-12-03 21:16:00 No Notes: (Same as: BD Posiflush) [facility] linezolid 600 mg oral tablet 2018-10-12 19:51:00 Yes 600 mg = 1 tab, PO, [id number], X 10 day, # 20 tab, 0 Refill(s), [facility] [id number] Morphine 2018-10-12 04:38:00 No Not es: (Same as:MORPhine Sulfate) [facility] linezolid 2018-10-11 20:00:00 No Notes: Protect from light. (Same as: Zyvox) [facility] Vancomycin 2018-10-11 19:00:00 No [...] kg, Priority: STAT, Start date: 10/11/18 10:46:00 CATALYST OPERATOR GASOLINE, Duration: 1 day, Stop date: 10/12/18 10:45:00 CATALYST OPERATOR GASOLINE, Pharmacy to dose, ABX Indication: Urinary Tract Infection [facility] Ambien 2018-10-11 16:46:00 No Notes: (Same As: Ambien) [facility] Acetaminophen 300 MG / Codeine Phosphate 30 MG Oral Tablet [Tylenol with Codeine #3] 2018-10-11 16:46:00 No Notes: Do not exceed 4gm/day of acetaminophen. (Same as: Tylenol with Codeine # 3) [facility] Dextrose 50% Syringe 2018-10-11 16:12:00 No 25 gm, 50 mL, Route: IVP, Drug Form: INJ, Dosing Weight 133.182, kg, PRN, PRN Blood Glucose Results, Start date: 10/11/18 10:12:00 CATALYST OPERATOR GASOLINE, Duration: 30 day, Stop date: 11/10/18 11:11:00 CDT [facility] Glucagon 2018-10-11 16:12:00 No 1 mg, Route: IM, Drug form: PDR/INJ, PRN, Dosing Weight 133.182, kg, PRN Blood Glucose Results, Start date: 10/11/18 10:12:00 CATALYST OPERATOR GASOLINE, Duration: 30 day, Stop date: 11/10/18 11:11:00 T [facility] Docusate 2018-10-11 15:00:00 No Notes: (Same as: Colace) (Do Not Crush) [facility] Dextrose 50% Syringe 2018-10-11 14:50:00 No 25 gm, 50 mL, Route: IVP, Drug Form: INJ, Dosing Weight 133.182, kg, PRN, PRN Blood Glucose Results, Start date: 10/11/18 8:50:00 CATALYST OPERATOR GASOLINE, Duration: 30 day, Stop date: 11/10/18 9:49:00 CDT [facility] Glucagon 2018-10-11 14:50:00 No 1 mg, Route: IM, Drug form: PDR/INJ, PRN, Dosing Weight 133.182, kg, PRN Blood Glucose Results, Start date: 10/11/18 8:50:00 CATALYST OPERATOR GASOLINE, Duration: 30 day, Stop date: 11/10/18 9:49:00 [...] Hydrocodone Bitartrate 5 MG Oral Tabl et [[place] 5/325] 2018-10-11 09:20:00 No 1 tab, Route: PO, Drug Form: TAB, Dosing Weight 133.005, kg, ONCE, STAT, Start date: 10/11/18 3:20:00 CATALYST OPERATOR GASOLINE, Stop date: 10/11/18 3:20:00 CATALYST OPERATOR GASOLINE [facility] Ibuprofen 2018-10-11 07:55:00 No 600 mg, Route: PO, Drug form: TAB, ONCE, Dosing Weight 133.005, kg, Priority: STAT, Start date: 10/11/18 1:55:00 CATALYST OPERATOR GASOLINE, Stop date: 10/11/18 1:55:00 CATALYST OPERATOR GASOLINE [facility] orimicki Soto Vancomycin 2018-10-11 05:27:00 No 2001 [...] kg, Priority: STAT, Start date: 09/06/18 0:58:00 CATALYST OPERATOR GASOLINE, Stop date: 09/06/18 0:58:00 CATALYST OPERATOR GASOLINE Shahida Soto Zofran 2018-09-06 06:58:00 No 4 mg, Route: IVP, Drug form: INJ, ONCE, Dosing Weight 120.455, kg, Priority: STAT, Start date: 09/06/18 0:58:00 CATALYST OPERATOR GASOLINE, Stop date: 09/06/18 0:58:00 CATALYST [facility]PERATOR [facility]OL[facility] Sodium Chloride 0.9% (Bolus) IV 2018-09-06 06:57:00 No 1,000 mL, Infuse Over: 1 hr, Route: IV, ONCE, Priority: STAT, Dosing Weight 120.455 kg, Start date: 09/06/18 0:57:00 CATALYST OPERATOR GASOLINE, Stop date: 09/06/18 0:57:00 CATALYST OPERATOR GASOLINE [facility] Acetaminophen 300 MG / Codeine Phosphate 30 MG Oral Tablet [Tylenol with Codeine #3] 2018-08-30 19:59:00 No 1 tab, PO, Q12H, PRN Pain, X 5 day, # 10 tab, 0 Refill(s) [facility] heparin sodium, porcine 2500 UNT/ML Injectable Solution 2018-08-30 03:00:00 No Notes: porcine heparin [facility] Vancomycin 2018-08-28 02:00:00 No 2001 mg: infuse over 2.5 hours For adult patients only: Round to nearest 250 mg per Medical Staff approval MEDICATION WASTE Product Size: 1000 mg Product Wasted: ___ mg [facility] Saline Flush 0.9% 2018-08-27 22:00:00 No Notes: (Same as: BD Posiflush) [facility] Lidocaine Hydrochloride 10 MG/ML Injectable Solution 08-27 22:00:00 No Notes: (Same as: Xylocaine) [facility] Saline Flush 0.9% 2018-08-27 21:38:00 No Notes: (Same as: BD Posiflush) [facility] morphine Sulfate 2018-08-26 21:06:00 No Notes: (Same as:MORPhine Sulfate) [facility] vancomycin + Sodium Chloride 0.9% IV 250 mL 2018-08-25 22:00:00 No 2001 mg: infuse over 2.5 hours For adult patients only: Round to nearest 250 mg per Medical Staff approval MEDICATION WASTE Product Size: 1000 mg Product Wasted: ___ mg [facility] vancomycin + Sodium Chloride 0.9% IV 250 mL 2018-08-25 04:00:00 No 2001 mg: infuse over 2.5 hours For adult patients only: Round to nearest 250 mg per Medical Staff approval MEDICATION WASTE Product Size: 1000 mg Product Wasted: ___ mg [facility] Tramadol 2018-08-25 02:00:00 No Notes: Not to exceed 400mg/day. (Same As: Ultram) [facility] sennosides, LONGTERM 2018-08-25 01:48:00 No Notes: (Same as: Senokot) [facility] [facility] Tessalon Perles 2018-08-25 01:48:00 No Notes: (Same As: Tessalon Perles) "Do Not Crush" [facility] Melatonin 2018-08-25 01:48:00 No Notes: (Sa me as: Melatonin) [facility] Morphine 2018-08-25 01:47:00 No 2 mg, 1 mL, Route: IVP, Drug form: SOLN, Q4H, Dosing Weight 127.727, kg, PRN Pain Score 7-10, Start date: 08/24/18 19:47:00 CATALYST OPERATOR GASOLINE, Duration: 30 day, Stop date: 09/23/18 19:46:00 [facility] Acetaminophen 325 MG / Hydrocodone Bitartrate 10 MG Or al Tablet [[place] 10/325] 2018-08-25 01:47:00 No Note s: Do not exceed 4gm/day of acetaminophen. (Same as: [place] 325/10) [facility] Vancomycin 2018-08-24 21:00:00 No 2001 mg: infuse over 2.5 hours For adult patients only: Round to nearest 250 mg per Medical Staff approval MEDICATION WASTE Product Size: 1000 mg Product Wasted: ___ mg [facility] Dextrose 50% Syringe 2018-08-24 20:32:00 No 12.5 gm, 25 mL, Route: IVP, Drug Form: INJ, Dosing Weight 136.364, kg, PRN, PRN Blood Glucose Results, Start date: 08/24/18 14:32:00 [employer] OPERATOR GASOLINE, Duration: 30 day, Stop date: 09/23/18 14:31:00 CATALYST OPERATOR GASOLINE [facility] Glucagon 2018-08-24 20:32:00 No 1 mg, Route: IM, Drug form: PDR/INJ, PRN, Dosing Weight 136.364, kg, PRN Blood Glucose Results, Start date: 08/24/18 14:32:00 CATALYST OPERATOR GASOLINE, Duration: 30 day, Stop date: 09/23/18 14:31:00 [facility] Ondansetron 2018-08-24 20:32:00 No Notes: (Same as: Zofran) MEDICATION WASTE Product Size: 4 mg Product Wasted: ___ mg [facility] Acetaminophen 2018-08-24 20:32:00 No Notes: Do not exceed 4 gm/day. (Same as: Tylenol) [facility] Morphine 2018-08-24 20:22:00 No 4 mg, Route: IVP, ONCE, Dosing Weight 120.455, kg, Start date: 08/24/18 14:22:00 CATALYST OPERATOR GASOLINE, Stop date: 08/24/18 14:22:00 CATALYST OPERATOR GASOLINE Shahida Soto Zofran 2018-08-24 13:41:00 No Notes: [...] day, # 20 tab, 0 Refill(s), Pharmacy: [facility] [id number] [facility] Docusate Sodium 100 MG Oral Capsule [Colace] 2018-05-22 17:08:00 No 100 mg = 1 cap, PO, BID, PRN as needed for constipation, # 14 cap, 0 Refill(s), Pharmacy: [facility] [id number] [facility] Acetaminophen 300 MG / Codeine Phosphate 30 MG Oral Tablet [Tylenol with Codeine #3] 2018-05-22 17:08:00 No 1 tab, PO, Q6H, PRN Pain Score 6-10, X 5 day, # 20 tab, 0 Refill(s) [facility] Nerissa cintron Docusate Sodium 100 MG Oral Capsule [Colace] 2018-05-22 14:00:00 No Notes: (Same as: Colace) (Do Not Crush) [facility] Acetaminophen 325 MG / Hydrocodone Bitartrate 5 MG Oral Tabl et [[place] 5/325] 2018-05-21 15:02:00 No Notes: (Same as: [place] 325/5) Do not exceed 4gm/day of acetaminophen. [...] Size: 2000 mg Product Wasted: ___ mg [facility] Phenergan 2018-05-19 15:36:00 No Notes: (Sa me as: Phenergan) Shahida Soto Morphine 2018-05-19 04:11:00 No 2 mg, 1 mL, Route: IVP, Drug form: SOLN, ONCE, Dosing Weight 120.909, kg, Start date: 05/18/18 23:11:00 CDT, Stop date: 05/18/18 23:11:00 CDT [facility] morphine Sulfate 2018-05-19 02:31:00 No Notes: (Same as:MORPhine Sulfate) Shahida Soto Acetaminophen 300 MG / Codeine Phosphate 30 MG Oral Tablet [Tylenol with Codeine #3] 2018-05-18 18:52:00 No Notes: Do not exceed 4gm/day of acetaminophen. (Same as: Tylenol with Codeine # 3) [facility] Meperidine 2018-05-18 18:51:00 No Notes: (S zenaida As: Demerol) [facility] Diphenhydramine 2018-05-18 18:51:00 No Notes: (Same as: Benadryl) [facility] Ondansetron 2018-05-18 18:51:00 No Notes: (Same as: Zofran) MEDICATION WASTE Product Size: 4 mg Product Wasted: ___ mg [facility] Promethazine 2018-05-18 18:51:00 No 6.25 mg, Route: IVPB, ONCE, Dosing Weight 120.909, kg, PRN Nausea & Vomiting, Start date: 05/18/18 13:51:00 CDT [facility] Naloxone 2018-05-18 18:51:00 No Notes: Same as Narcan [facility] Hydromorphone 2018-05-18 18:51:00 No Notes: Same as: Dilaudid [facility] Fentanyl 2018-05-18 18:51:00 No 50 microgram, Route: IVP, Q5Min, Dosing Weight 120.909, kg, PRN Pain Score 7-10, Priority: Routine, Start date: 05/18/18 13:51:00 CDT, Duration: 2 doses or times, Stop date: Limited # of times [facility] Flumazenil 2018-05-18 18:51:00 No Notes: (S zenaida as: Romazicon) [facility] Albuterol 0.83 MG/ML Inhalant Solution 2018-05-18 18:51:00 No Notes: SEE RT DOCUMENTATION (Same as: Proventil) [facility] Ketorolac 2018-05-18 18:51:00 No 4 days MEDICATION WASTE Product Size: 30 mg Product Wasted: ___ mg [facility] Labetalol 2018-05-18 18:51:00 No Notes: (Same as: Normodyne, Trandate) Push over 2 minutes Give bolus over 2-3 minutes. [facility] Hydralazine 2018-05-18 18:51:00 No Notes: (Same as: Apresoline) Push over 5 minutes [facility] Acetaminophen 2018-05-18 18:51:00 No Notes: Max acetaminophen 4000 mg/day (4 gm/day). (Same as: Tylenol Extra Strength) [facility] Oxycodone 2018-05-18 18:51:00 No Notes: (Sa me as: Roxicodone) [facility] lidocaine (ANES) 2018-05-18 18:43:00 No Route: IV, Drug form: INJ, ONCE, Stop date: 05/18/18 13:43:00 CDT Dl Soto ondansetron (ANES) 2018-05-18 18:43:00 No Route: IV, Drug form: INJ, ONCE, Stop date: 05/18/18 13:43:00 CDT Dl Soto propofol (ANES) 2018-05-18 18:43:00 No Route: IV, Drug form: INJ, ONCE, Stop date: 05/18/18 13:43:00 [facility] ([facility]ES[facility] 2018-05-18 18:43:00 No Route: IV, Drug form: INJ, ONCE, Stop date: 05/18/18 13:43:00 CDT [facility] ketOROLAC (ANES) 2018-05-18 18:43:00 No IV, ONCE [facility] fentaNYL (ANES) 2018-05-18 18:43:00 No Route: IV, Drug form: INJ, ONCE, Stop date: 05/18/18 13:43:00 CDT [facility] midazolam (ANES) 2018-05-18 18:43:00 No Route: IV, Drug form: SOLN, ONCE, Stop date: 05/18/18 13:43:00 CDT [facility] vancomycin (KAPILS) 1000 mg 2018-05-18 18:16:00 No Route: IV, Drug form: INJ, Start date: 05/18/18 13:16:00 CDT, Stop date: 05/18/18 14:16:00 CDT [facility] Lactated Ringers Injection IV (ANES) 1000 mL 2018-05-18 18:16:00 No Route: IV, Total Volume: 1,000, Start date: 05/18/18 13:16:00 CDT, Stop date: 05/18/18 14:16:00 CDT [facility] Sodium Chloride 0.9% IV 1,000 mL 2018-05-18 18:01:00 No 1,000 mL, Rate: 25 ml/hr, Infuse over: 40 hr, Route: IV, Dosing Weight 120.909 kg, Total Volume: 1,000, Start date: 05/18/18 13:01:00 CDT, Duration: 30 day, Stop date: 06/17/18 13:00:00 CDT, 2.41, m2 [facility] Calcium Chloride 0.0014 MEQ/ML / Potassi um Chloride 0.004 MEQ/ML / Sodium Chloride 0.103 MEQ/ML / Sodium Lactate 0.028 MEQ/ML Injectable Solution 2018-05-18 18:01:00 No 1,000 mL, Rate: 25 ml/hr, Infuse over: 40 hr, Route: IV, Dosing Weight 120.909 kg, Total Volume: 1,000, Start date: 05/18/18 13:01:00 CDT, Duration: 30 day, Stop date: 06/17/18 13:00:00 CDT, 2.41, m2 [facility] vancomycin + Sodium Chloride 0.9% IV 250 mL 2018-05-17 19:00:00 No 1,000 mg, Route: IVPB, [id number], Dosing Weight 119.091, kg, Start date: 05/17/18 14:00:00 CDT, Duration: 7 day, Stop date: 05/24/18 2:00:00 CDT, ABX Indication: Skin/Soft Tissue Infection [facility] influenza virus vaccine, inactivated 2018-05-17 08:20:35 No Notes: (Same as: Fluzone Quadrivalent, Fluarix Quadrivalent) For 3 years of age and older (0.5 mL IM) Shake well before use [facility] Vancomycin 2018-05-17 08:00:00 No 1,000 mg, Route: IVPB, Drug form: INJ, [id number], Dosing Weight 119.091, kg, Start date: 05/17/18 3:00:00 CDT, Duration: 7 day, Stop date: 05/23/18 15:00:00 CDT, ABX Indication: Pneumonia [facility] Enoxaparin 2018-05-17 08:00:00 No Notes: (S zenaida as: Lovenox) [facility] Saline Flush 0.9% 2018-05-17 07:46:00 No Notes: (Same as: BD Posiflush) [facility] Lactated Ringers IV 1,000 mL 2018-05-17 07:46:00 No 1,000 mL, Rate: 75 ml/hr, Infuse over: 13.3 hr, Route: IV, Dosing Weight 119.091 kg, Total Volume: 1,000, Start date: 05/17/18 2:46:00 CDT, Duration: 30 day, Stop date: 06/16/18 2:45:00 CDT, 2.39, m2 [facility] Ondansetron 2018-05-17 07:46:00 No Notes: (Same as: Zofran) MEDICATION WASTE Product Size: 4 mg Product Wasted: ___ mg [facility] Acetaminophen 2018-05-17 07:46:00 No Notes: Do not exceed 4 gm/day. (Same as: Tylenol) [facility] Morphine 2018-05-17 07:46:00 No 2 mg, 1 mL, Route: IVP, Drug form: SOLN, Q4H, Dosing Weight 119.091, kg, PRN Pain Score 7-10, Start date: 05/17/18 2:46:00 CDT, Duration: 30 day, Stop date: 06/16/18 2:45:00 CDT [facility] Ondansetron 2018-05-17 06:21:00 No Notes: (Same as: Zofran) MEDICATION WASTE Product Size: 4 mg Product Wasted: ___ mg [facility] Morphine 2018-05-17 06:21:00 No Not es: (Same as:MORPhine Sulfate) [facility] Vancomycin 2018-05-17 05:38:00 No 2001 mg: infuse over 2.5 hours For adult patients only: Round to nearest 250 mg per Medical Staff approval MEDICATION WASTE Product Size: 1000 mg Product Wasted: ___ mg [facility] Nitrofurantoin Monohyd/M-Cryst (Macrobid 100 Mg Capsul e) 100 Mg CAPSULE Nitrofurantoin Monohyd/M-Cryst (Macrobid 100 Mg Capsule) 100 Mg CAPSULE 2018-02-05 01:42:00 2020-04-13 00:00:00 No 100 Twice A Day [facility] Ondansetron (Zofran Odt) 4 Mg TAB.RAPDIS Ondansetron ( Zofran Odt) 4 Mg TAB.RAPDIS 2018-02-05 01:42:00 2020-04-13 00:00:00 No 4 Every 6 Hours as needed for Nausea [facility] Methocarbamol 750 MG Oral Tablet [Robaxin] 2018-01-13 02:51:00 Yes 750 mg = 1 tab, PO, TID, PRN as needed for pain, X 7 day, # 30 tab, 0 Refill(s) [facility] tramadol hydrochloride 50 MG [...] Hydrocodone Nereyda trate 7.5 MG Oral Tablet [[place] 7.5/325] 2018-01-13 02:45:00 No Notes: Same as [place] 325-7.5mg Do not exceed 4gm/day of acetaminophen. Michael Soto Valium 2018-01-13 01:08:00 No Notes: (Same as: Valium) Shahida Soto Ketorolac 2018-01-13 01:08:00 No 4 days MEDICATION WASTE Product Size: 30 mg Product Wasted: ___ mg Shahida Soto Tylenol 2018-01-12 21:33:00 No Notes: Do not exceed 4 gm/day. (Same as: Tylenol) [facility] Buspirone 2016-12-31 17:00:00 No Notes: ([facility] As: BuSpar) Shahida [facility] Phenergan 2016-12-31 14:31:00 No Notes: ([facility] as: Phenergan) [facility] [place] Phenergan 25 mg oral tablet 2016-12-31 14:31:00 Yes 25 mg, PO, Q6H, PRN Nausea & Vomiting, X 5 day, # 20 tab, 0 Refill(s), Pharmacy: [facility] [id number] Shahida Soto Sodium Chloride 0.154 MEQ/ML Injectable Solution 2016-12-31 14:3 0:00 No 1,000 mL, Rate: 150 ml/hr, I nfuse over: 6.7 hr, Route: IV, Dosing Weight 109 kg, Total Volume: 1,000, Start date: 12/31/16 9:30:00 CDT, Duration: 30 day, Stop date: 01/30/17 9:29:00 CDT [facility] Trazodone 2016-12-31 14:25:00 No Notes: (Sa me As: Desyrel) [facility] Cipro 2016-12-31 14:00:00 No Notes: May interfere w/enteral feedings - Take 1 hr before or 2 hrs after antacids, dairy pdt & minerals. On empty stomach. [facility] Flagyl 2016-12-31 14:00:00 No Notes: (Same as: Flagyl) Take with food/ avoid alcohol [facility] Fluoxetine 2016-12-31 14:00:00 No Notes: (S zenaida as: Prozac) [facility] Levsin SL 2016-12-31 13:41:00 No Notes: (Same as: Levsin) Take 30 min before meal [facility] Promethazine 2016-12-31 10:15:00 No Notes: Do not give IV push. (Same as: Phenergan) [facility] Zofran 2016-12-31 09:33:00 No 4 mg, Route: IVP, Drug form: INJ, ONCE, Dosing Weight 109.091, kg, Priority: STAT, Start date: 12/31/16 4:33:00 CDT, Stop date: 12/31/16 4:33:00 CDT [facility] Morphine 2016-12-31 09:30:00 No 4 mg, Route: IVP, ONCE, Dosing Weight 109.091, kg, Priority: STAT, Start date: 12/31/16 4:30:00 CDT, Stop date: 12/31/16 4:30:00 CDT [facility] Rocephin 2016-12-31 06:26:00 No Notes: (Same As: Rocephin). Use with 100 mL NS and infuse over 30 min MEDICATION WASTE Product Size: 1000 mg Product Wasted: ___ mg [facility] Ondansetron 2016-12-31 04:55:00 No Notes: (Same as: Zofran) MEDICATION WASTE Product Size: 4 mg Product Wasted: ___ mg [facility] Morphine 2016-12-31 04:55:00 No Not es: (Same as:MORPhine Sulfate) [facility] Saline Flush 0.9% 2016-12-31 [...] day, # 14 tab, 0 Refill(s), Pharmacy: [facility] [id number] Shahida Soto Acetaminophen 300 MG / Codeine Phosphate 30 MG Oral Tablet [Tylenol with Codeine #3] 2016-12-25 23:04:00 No 1 - 2 tab, PO, Q4H, PRN Pain, X 2 day, # 10 tab, 0 Refill(s) Shahida Soto Metronidazole 500 MG Oral Tablet [Flagyl] 2016-12-25 23:04:00 Yes 500 mg = 1 tab, PO, BID, X 7 day, # 14 tab, 0 Refill(s), Pharmacy: [facility] [id number] Shahida Soto Sodium Chloride 0.154 MEQ/ML Injectable [...] kg, Priority: STAT, Start date: 07/19/16 21:44:00 CATALYST OPERATOR GASOLINE, Stop date: 07/19/16 21:44:00 CATALYST OPERATOR GASOLINE Ky christie Soto Ketorolac 2016-07-20 03:28:00 No 30 mg, Route: IVP, Drug form: INJ, ONCE, Dosing Weight 104.545, kg, Priority: STAT, Start date: 07/19/16 21:28:00 CATALYST OPERATOR GASOLINE, Stop date: 07/19/16 21:28:00 CATALYST OPERATOR GASOLINE Ky christie Soto Zofran 2016-07-20 01:40:00 No Notes: (Same as: Michael) MEDICATION WASTE Product Size: 4 mg Product Wasted: ___ mg Shahida Soto Famotidine 20 MG Oral Tablet [Pepcid] 2016-07-20 01:40:00 N o 20 mg, 1 tab, Route: PO, ONCE, Dosing Weight 104.545, kg, Start date: 07/19/16 19:40:00 CATALYST OPERATOR GASOLINE, Stop date: 07/19/16 19:40:00 CATALYST OPERATOR GASOLINE Dl Soto Sodium Chloride 0.154 MEQ/ML Injectable Solution 2016-07-20 01:4 0:00 No 1,000 mL, 1,000 ml/hr, Infus e Over: 1 hr, Route: IV, 1,000, Drug form: INJ, ONCE, Priority: STAT, Dosing Weight 104.545 kg, Start date: 07/19/16 19:40:00 CATALYST OPERATOR GASOLINE, Duration: 1 doses or times, Stop date: 07/19/16 19:40:00 CATALYST OPERATOR GASOLINE [facility] GI cocktail 2016-07-20 01:39:00 No 30 mL, Route: PO, Dosing Weight 104.545, kg, ONCE, STAT, Start date: 07/19/16 19:39:00 CATALYST OPERATOR GASOLINE, Stop date: 07/19/16 19:39:00 CATALYST OPERATOR GASOLINE [facility] Carafate 2016-07-20 01:39:00 No Notes: May interfere w/enteral feeds - Take 1 hr before or 2 hr after antacids, dairy pdt, meals & minerals - On empty stomach. (Same As: Carafate) Efraínisaiah evans [place] Cyclobenzaprine hydrochloride 10 MG Oral Tablet [Flexeril] 2016-04-23 08:02:00 Yes 10 mg, PO, TID, PRN Muscle Spasm, X 10 day, # 30 tab, 0 Refill(s) [facility] tramadol hydrochloride 50 MG Oral Tablet 2016-04-23 06:34:00 No 50 mg, Route: PO, Drug form: TAB, ONCE, Dosing Weight 94.091, kg, Priority: STAT, Start date: 04/23/16 1:34:00 CDT, Stop date: 04/23/16 1:34:00 CDT [facility] Valium 2016-04-23 06:33:00 No 10 mg, Route: PO, ONCE, Dosing Weight 94.091, kg, Start date: 04/23/16 1:33:00 CDT, Stop date: 04/23/16 1:33:00 CDT [facility] Ketorolac 2016-04-23 06:33:00 No 60 mg, Route: IM, Drug form: INJ, ONCE, Dosing Weight 94.091, kg, Priority: STAT, Start date: 04/23/16 1:33:00 CDT, Stop date: 04/23/16 1:33:00 [facility] Methocarbamol 750 MG Oral Tablet [Robaxin] 2016-04-16 08:36:00 Yes 750 mg = 1 tab, PO, TID, PRN as needed for pain, X 10 day, # 30 tab, 0 Refill(s) [facility] Acetaminophen 300 MG / Codeine Phosphate 30 MG Oral Tablet [Tylenol with Codeine #3] 2016-04-16 08:36:00 No 1 - 2 tab, PO, Q4H, PRN Pain, X 2 day, # 24 tab, 0 Refill(s) [facility] Flexeril 2016-04-16 08:20:00 No 10 mg, Route: PO, ONCE, Dosing Weight 103.182, kg, Priority: STAT, Start date: 04/16/16 3:20:00 CDT, Stop date: 04/16/16 3:20:00 CDT [facility] Zofran ODT 2016-04-16 07:09:00 No 4 mg, Route: PO, Drug form: TABDIS, ONCE, Dosing Weight 103.182, kg, Priority: STAT, Start date: 04/16/16 2:09:00 CDT, Stop date: 04/16/16 2:09:00 CDT [facility] Dilaudid 2016-04-16 07:09:00 No 1 mg, Route: IM, ONCE, Dosing Weight 103.182, kg, Priority: STAT, Start date: 04/16/16 2:09:00 CDT, Stop date: 04/16/16 2:09:00 CDT [facility] promethazine 12.5 mg oral tablet 2016-04-14 08:15:00 Yes 12.5 mg = 1 tab, PO, Q6H, PRN Nausea & Vomiting, X 5 day, # 20 tab, 0 Refill(s) [facility] Hyoscyamine Sulfate 0.125 MG Sublingual Tablet [Levsin] 2016-04-14 08:14:00 Yes 0.125 mg = 1 ta b, SL, Q6H, PRN abdominal spasm, # 28 tab, 0 Refill(s) [facility] omeprazole 40 mg oral delayed release capsule 2016-04-14 08:13:0 0 Yes 40 mg = 1 cap, PO, Daily, # 30 cap, 0 Refill(s) [facility] Promethazine 2016-04-14 08:04:00 No Notes: Do not give IV push. (Same as: Phenergan) [facility] GI cocktail 2016-04-14 07:12:00 No 30 mL, Route: PO, Dosing Weight 103.182, kg, ONCE, STAT, Start date: 04/14/16 2:12:00 CDT, Stop date: 04/14/16 2:12:00 CDT [facility] pantoprazole 2016-04-14 07:12:00 No 40 mg, Route: IVP, ONCE, Dosing Weight 103.182, kg, Priority: STAT, Start date: 04/14/16 2:12:00 CDT, Stop date: 04/14/16 2:12:00 CDT [facility] Morphine 2016-04-14 05:57:00 No 4 mg, Route: IVP, Drug form: INJ, ONCE, Dosing Weight 103.182, kg, Priority: STAT, Start date: 04/14/16 0:57:00 CDT, Stop date: 04/14/16 0:57:00 [facility] 2016-04-14 05:57:00 No 40 mg, Route: IVP, ONCE, Dosing Weight 103.182, kg, For IV push reconstitute with 10 ml 0.9% sodium chloride and push over at least 3 minutes, Priority: STAT, Start date: 04/14/16 0:57:00 CDT, Stop date: 04/14/16 0:57:00 CDT Michael l [place] Ondansetron 2016-04-14 05:57:00 No 4 mg, Route: IVP, ONCE, Dosing Weight 103.182, kg, Priority: STAT, Start date: 04/14/16 0:57:00 CDT, Stop date: 04/14/16 0:57:00 CDT [facility] Sodium Chloride 0.154 MEQ/ML Injectable Solution 2016-04-14 05:5 7:00 No 1,000 mL, 2,000 ml/hr, Infus e Over: 30 minutes, Route: IV, ONCE, Priority: STAT, Dosing Weight 103.182 kg, Start date: 04/14/16 0:57:00 CDT, Duration: 1 doses or times, Stop date: 04/14/16 0:57:00 CDT [facility] Saline Flush 0.9% 2016-04-14 05:57:00 No [...] QID, # 28 tab, 0 Refi ll(s) [facility] Metoclopramide 10 MG Oral Tablet [Reglan] 2016-02-24 05:48:00 Yes 10 mg = 1 tab, PO, QID-Before Meals, X 10 day, # 40 tab, 0 Refill(s) [facility] Morphine 2016-02-24 05:09:00 No 4 mg, Route: IVP, Drug form: INJ, ONCE, Dosing Weight 100.455, kg, Priority: STAT, Start date: 02/24/16 0:09:00 CDT, Stop date: 02/24/16 0:09:00 CDT [facility] Magnesium Sulfate 2016-02-24 04:50:00 No 1 gm, Route: IV, ONCE, Dosing Weight 100.455, kg, Start date: 02/23/16 23:50:00 CDT, Stop date: 02/23/16 23:50:00 CDT [facility] Zofran 2016-02-24 04:34:00 No 4 mg, Route: IVP, Drug form: INJ, ONCE, Dosing Weight 100.455, kg, Priority: STAT, Start date: 02/23/16 23:34:00 CDT, Stop date: 02/23/16 23:34:00 CDT Ky christie Soto Sodium Chloride 0.154 MEQ/ML Injectable [...] 22:59:00 CDT, Stop date: 01/16/16 22:59:00 CDT Ky christie Soto Morphine 2016-01-17 02:57:00 No Not [...] 4 mg Product Wasted: ___ mg [facility] Famotidine 2015-10-13 08:13:00 No Notes: (Same as: Pepcid) Can be dilute in 5-10cc NS IVP: Slow IV push over at least 2 minutes. [facility] GI cocktail 2015-10-13 08:13:00 No Notes: G.I. Cocktail = antacid with simethicone 22.5 mL - lidocaine viscous 7.5 mL [facility] Saline Flush 0.9% 2015-10-13 08:13:00 No Notes: (Same as: BD Posiflush) [facility] Sodium Chloride 0.154 MEQ/ML Injectable Solution 2015-10-13 08:1 3:00 No 1,000 mL, 1000 ml/hr, Infuse Over: 1 hr, Route: IV, 1,000, Drug form: INJ, ONCE, Priority: STAT, Dosing Weight 101.818 kg, Start date: 10/13/15 2:13:00, Duration: 1 doses or times, Stop date: 10/13/15 2:13:00 [facility] Diphenhydramine 2015-07-04 06:52:00 No 25 mg, Route: IVP, ONCE, Dosing Weight 107.273, kg, Priority: STAT, Start date: 07/04/15 0:52:00, Stop date: 07/04/15 0:52:00 [facility] Famotidine 2015-07-04 06:52:00 No 20 mg, Route: IVP, ONCE, Dosing Weight 107.273, kg, Priority: STAT, Start date: 07/04/15 0:52:00, Stop date: 07/04/15 0:52:00 [facility] Morphine 2015-07-04 06:52:00 No 4 mg, Route: IVP, ONCE, Dosing Weight 107.273, kg, Priority: STAT, Start date: 07/04/15 0:52:00, Stop date: 07/04/15 0:52:00 [facility] Sodium Chloride 0.154 MEQ/ML [...] date: 07/04/15 0:52:00, Stop date: 07/04/15 0:52:00 [facility] Acetaminophen 325 MG / Hydrocodone Bitartrate 5 MG Oral Tabl et 2015-05-17 10:39:00 No Notes: (Sa me as: [place] 325/5) Do not exceed 4gm/day of acetaminophen. [facility] Ibuprofen 2015-05-17 07:14:00 No 600 mg, Route: PO, ONCE, Dosing Weight 112.273, kg, Priority: STAT, Start date: 05/17/15 2:14:00, Stop date: 05/17/15 2:14:00 [facility] omeprazole 40 mg oral delayed release capsule 2015-05-15 12:39:0 0 Yes 40 mg = 1 cap, PO, Daily, # 30 cap, 0 Refill(s) [facility] Dicyclomine Hydrochloride 20 MG Oral Tablet [Bentyl] 2 12:38:00 Yes 20 mg = 1 tab, PO, QID-Before Meals, # 2 8 tab, 0 Refill(s) [facility] Ondansetron 4 MG Oral Tablet [Zofran] 2015-05-15 12:38:00 Y es 4 mg = 1 tab, PO, TID, X 5 day, # 15 tab, 0 Refill(s) [facility] Acetaminophen 325 MG / Hydrocodone Nereyda trate 7.5 MG Oral Tablet [[place] 7.5/325] 2015-05-15 12:15:00 No 1 tab, Route: PO, Drug Form: TAB, Dosing Weight 122.727, kg, ONCE, STAT, Start date: 05/15/15 7:15:00, Stop date: 05/15/15 7:15:00 [facility] Ketorolac 2015-05-15 12:14:00 No 30 mg, Route: IVP, Drug form: INJ, ONCE, Dosing Weight 122.727, kg, Priority: STAT, Start date: 05/15/15 7:14:00, Stop date: 05/15/15 7:14:00 [facility] Zofran 2015-05-15 11:28:00 No 4 mg, Route: IVP, Drug form: INJ, ONCE, Dosing Weight 122.727, kg, Priority: STAT, Start date: 05/15/15 6:28:00, Stop date: 05/15/15 6:28:00 [facility] Morphine 2015-05-15 09:19:00 No 4 mg, Route: IVP, Drug form: INJ, ONCE, Dosing Weight 122.727, kg, Priority: STAT, Start date: 05/15/15 4:19:00, Stop date: 05/15/15 4:19:00 [facility] Parian 2015-05-15 09:19:00 No 4 mg, Route: IVP, Drug form: INJ, ONCE, Dosing Weight 122.727, kg, Priority: STAT, Start date: 05/15/15 4:19:00, Stop date: 05/15/15 4:19:00 [facility] Sodium Chloride 0.154 MEQ/ML Injectable Solution 2015-05-15 [...] doses or times, Stop date: 02/14/15 1:40:00 [facility] Benadryl 2015-02-14 06:05:00 No Notes: (Byron e as: Mike) [facility] Reglan 2015-02-14 06:05:00 No Notes: (Same as: Reglan) [facility] Ondansetron 4 MG Oral Tablet [Zofran] 2014-09-30 07:04:00 Y es 4 mg = 1 tab, PO, BID, # 10 tab, 0 Refill(s) [facility] Morphine 2014-09-30 06:32:00 No 4 mg, Route: IV, Drug form: INJ, ONCE, Dosing Weight 118.182, kg, Start date: 09/30/14 0:32:00, Stop date: 09/30/14 0:32:00 [facility] Morphine 2014-09-30 06:31:00 No 4 mg, Route: IM, Drug form: INJ, ONCE, Dosing Weight 118.182, kg, Priority: STAT, Start date: 09/30/14 0:31:00, Stop date: 09/30/14 0:31:00 [facility] Saline Flush 0.9% 2014-09-30 05:25:00 No Notes: Same as: BD Posiflush Sterile [facility] Sodium Chloride 0.154 MEQ/ML Injectable Solution 2014-09-30 05:2 5:00 No 1,000 mL, Infuse Over: 1 hr, Route: IV, ONCE, Priority: STAT, Dosing Weight 118.182 kg, Start date: 09/29/14 23:25:00, Duration: 1 doses or times, Stop date: 09/29/14 23:25:00 [facility] Acetaminophen/Codeine Phosphate (Tylenol # 3*) 1 Ea TA B Acetaminophen/Codeine Phosphate (Tylenol # 3*) 1 Ea TAB Yes 1 Every 4 Hours as needed for Moderate Pain (4-6) [facility] Amphet Asp/Amphet/D-Amphet (Adderall Xr 30 Mg Capsule) 30 Mg CAP.ER.24H Amphet Asp/Amphet/D-Amphet (Adderall Xr 30 Mg Capsule) 30 Mg CAP.ER.24H Yes 30 Daily [facility] Levofloxacin (Levaquin) 500 Mg TABLET Levofloxacin (Levaquin) 500 M g TABLET Yes 500 Daily [facility] Zolpidem Tartrate (Ambien) 10 Mg TABLET Zolpidem Tartrate (A mbien) 10 Mg TABLET Yes 10 Bedtime as needed for Insomnia [facility] Vital Signs Vital Name Observation Time Observation Value Comments Source Body Temperature 2020-04-14 20:10:00 97.7 [degF] [facility] Weight 2020-04-14 05:34:00 287.06 [lb_av] [facility] BMI (Body Mass Index) 2020-04-14 05:34:00 46.3 kg/m2 [facility] Temperature Oral (F) 2020-03-26 16:57:00 98.6 F [facility] Heart Rate 2020-03-26 16:57:00 [facility] Systolic (mm Hg) 2020-03-26 16:57:00 [facility] Diastolic (mm Hg) 2020-03-26 16:57:00 [facility] Temperature Oral (F) 2020-03-26 13:00:00 98.2 F [facility] Heart Rate 2020-03-26 13:00:00 [facility] Respitory Rate 2020-03-26 13:00:00 [facility] Systolic (mm Hg) 2020-03-26 13:00:00 [facility] [place] Diastolic (mm Hg) 2020-03-26 13:00:00 [facility] Temperature Oral (F) 2020-03-26 09:00:00 98.1 F [facility] Heart Rate 2020-03-26 09:00:00 [facility] Respitory Rate 2020-03-26 09:00:00 [facility] Systolic (mm Hg) 2020-03-26 09:00:00 [facility] Diastolic (mm Hg) 2020-03-26 09:00:00 [facility] Respitory Rate 2020-03-26 05:00:00 [facility] Height 2020-03-23 08:19:00 167.64 cm [facility] Weight 2020-03-23 08:19:00 [facility] BMI Calculated 2020-03-23 08:19:00 [facility] Temperature Oral (F) 2019-11-04 16:17:00 99.3 F [facility] Heart Rate 2019-11-04 16:17:00 [facility] Respitory Rate 2019-11-04 16:17:00 [facility] Systolic (mm Hg) 2019-11-04 16:17:00 [facility] Diastolic (mm Hg) 2019-11-04 16:17:00 [facility] Temperature Oral (F) 2019-11-04 12:53:00 98.2 F [facility] Heart Rate 2019-11-04 12:53:00 [facility] Respitory Rate 2019-11-04 12:53:00 [facility] Systolic (mm Hg) 2019-11-04 12:53:00 [facility] [place] Diastolic (mm Hg) 2019-11-04 12:53:00 [facility] Temperature Oral (F) 2019-11-04 08:40:00 98.2 F [facility] Heart Rate 2019-11-04 08:40:00 [facility] Systolic (mm Hg) 2019-11-04 08:40:00 [facility] Diastolic (mm Hg) 2019-11-04 08:40:00 [facility] Respitory Rate 2019-11-04 03:38:00 [facility] Height 2019-11-02 08:32:00 167.64 cm [facility] Weight 2019-11-02 08:32:00 [facility] BMI Calculated 2019-11-02 08:32:00 [facility] Temperature Oral (F) 2019-05-25 09:20:00 98 F [facility] Heart Rate 2019-05-25 09:20:00 [facility] Respitory Rate 2019-05-25 09:20:00 [facility] Systolic (mm Hg) 2019-05-25 09:20:00 [facility] Diastolic (mm Hg) 2019-05-25 09:20:00 [facility] Temperature Oral (F) 2019-05-25 07:10:00 98 F [facility] Heart Rate 2019-05-25 07:10:00 [facility] Respitory Rate 2019-05-25 07:10:00 [facility] Systolic (mm Hg) 2019-05-25 07:10:00 [facility] [place] Diastolic (mm Hg) 2019-05-25 07:10:00 [facility] Systolic (mm Hg) 2019-05-25 05:17:00 [facility] Diastolic (mm Hg) 2019-05-25 05:17:00 [facility] Heart Rate 2019-05-25 05:17:00 [facility] Respitory Rate 2019-05-25 05:17:00 [facility] Temperature Oral (F) 2019-05-25 05:17:00 98.2 F [facility] Height 2019-05-25 05:17:00 167.64 cm [facility] BMI Calculated 2019-05-25 05:17:00 [facility] Weight 2019-05-25 05:17:00 [facility] Systolic (mm Hg) 2019-05-16 22:30:00 [facility] Diastolic (mm Hg) 2019-05-16 22:30:00 [facility] Respitory Rate 2019-05-16 22:30:00 [facility] Heart Rate 2019-05-16 22:30:00 [facility] Temperature Oral (F) 2019-05-16 22:30:00 98.6 F [facility] Systolic (mm Hg) 2019-05-16 19:01:00 [facility] Diastolic (mm Hg) 2019-05-16 19:01:00 [facility] Heart Rate 2019-05-16 19:01:00 [facility] Respitory Rate 2019-05-16 19:01:00 [facility] Temperature Oral (F) 2019-05-16 19:01:00 98.8 F [facility] Height 2019-05-16 19:01:00 167.64 cm [facility] BMI Calculated 2019-05-16 19:01:00 [facility] Weight 2019-05-16 19:01:00 [facility] Temperature Oral (F) 2019-04-04 01:04:00 98.6 F [facility] Heart Rate 2019-04-04 01:04:00 [facility] Respitory Rate 2019-04-04 01:04:00 [facility] Systolic (mm Hg) 2019-04-04 01:04:00 [facility] Diastolic (mm Hg) 2019-04-04 01:04:00 [facility] Systolic (mm Hg) 2019-04-03 20:30:00 [facility] [place] Diastolic (mm Hg) 2019-04-03 20:30:00 [facility] Heart Rate 2019-04-03 20:30:00 [facility] Respitory Rate 2019-04-03 20:30:00 [facility] Temperature Oral (F) 2019-04-03 20:30:00 98.6 F [facility] Weight 2019-04-03 20:30:00 [facility] Systolic (mm Hg) 2019-03-24 17:01:00 [facility] [place] Diastolic (mm Hg) 2019-03-24 17:01:00 [facility] Respitory Rate 2019-03-24 17:01:00 [facility] Heart Rate 2019-03-24 17:01:00 [facility] Temperature Oral (F) 2019-03-24 17:01:00 98.7 F [facility] Temperature Oral (F) 2019-03-24 13:35:00 98.0 F [facility] Heart Rate 2019-03-24 13:35:00 [facility] Systolic (mm Hg) 2019-03-24 13:35:00 [facility] [place] Diastolic (mm Hg) 2019-03-24 13:35:00 [facility] Respitory Rate 2019-03-24 13:35:00 [facility] Heart Rate 2019-03-24 09:00:00 [facility] Respitory Rate 2019-03-24 09:00:00 [facility] Systolic (mm Hg) 2019-03-24 09:00:00 [facility] [place] Diastolic (mm Hg) 2019-03-24 09:00:00 [facility] Temperature Oral (F) 2019-03-24 09:00:00 98.1 F [facility] BMI Calculated 2019-03-23 23:51:00 [facility] Height 2019-03-23 23:51:00 167.64 cm [facility] Weight 2019-03-23 23:51:00 [facility] BMI Calculated 2019-03-23 16:59:00 [facility] Weight 2019-03-23 16:59:00 [facility] Height 2019-03-23 16:59:00 167.64 cm [facility] Heart Rate 2019-03-07 20:22:00 [facility] Respitory Rate 2019-03-07 20:22:00 [facility] Systolic (mm Hg) 2019-03-07 20:22:00 [facility] Diastolic (mm Hg) 2019-03-07 20:22:00 [facility] Temperature Oral (F) 2019-03-07 20:22:00 98.5 F [facility] Systolic (mm Hg) 2019-03-07 15:57:00 [facility] [place] Diastolic (mm Hg) 2019-03-07 15:57:00 [facility] Respitory Rate 2019-03-07 15:57:00 [facility] Temperature Oral (F) 2019-03-07 15:57:00 98.4 F [facility] Heart Rate 2019-03-07 15:57:00 [facility] Systolic (mm Hg) 2019-03-07 13:13:00 [facility] Diastolic (mm Hg) 2019-03-07 13:13:00 [facility] Heart Rate 2019-03-07 13:13:00 [facility] Respitory Rate 2019-03-07 13:13:00 [facility] Temperature Oral (F) 2019-03-07 13:13:00 98.2 F [facility] Height 2019-03-01 05:55:00 167.64 cm [facility] Weight 2019-03-01 05:55:00 [facility] BMI Calculated 2019-03-01 05:55:00 [facility] Weight 2019-03-01 01:00:00 [facility] Heart Rate 2019-01-31 19:54:00 [facility] Systolic (mm Hg) 2019-01-31 19:54:00 [facility] [place] Diastolic (mm Hg) 2019-01-31 19:54:00 [facility] Systolic (mm Hg) 2019-01-31 19:44:00 [facility] Diastolic (mm Hg) 2019-01-31 19:44:00 [facility] Heart Rate 2019-01-31 19:44:00 [facility] Systolic (mm Hg) 2019-01-31 19:31:00 [facility] [place] Diastolic (mm Hg) 2019-01-31 19:31:00 [facility] Heart Rate 2019-01-31 19:31:00 [facility] Temperature Oral (F) 2019-01-31 17:05:00 98.8 F [facility] Temperature Oral (F) 2019-01-31 13:54:00 98.7 F [facility] Respitory Rate 2019-01-31 08:40:00 [facility] Temperature Oral (F) 2019-01-31 08:40:00 98.9 F [facility] Respitory Rate 2019-01-31 04:46:00 [facility] Respitory Rate 2019-01-31 00:20:00 [facility] BMI Calculated 2019-01-27 11:20:00 [facility] Height 2019-01-27 11:20:00 167.64 cm [facility] Weight 2019-01-27 11:20:00 [facility] Weight 2019-01-27 06:56:00 [facility] BMI Calculated 2019-01-27 06:56:00 [facility] Height 2019-01-27 06:56:00 167.64 cm [facility] Systolic (mm Hg) 2018-12-13 03:27:00 [facility] [place] Diastolic (mm Hg) 2018-12-13 03:27:00 [facility] Respitory Rate 2018-12-13 03:27:00 [facility] Heart Rate 2018-12-13 03:27:00 [facility] Temperature Oral (F) 2018-12-13 03:27:00 98.8 F [facility] BMI Calculated 2018-12-13 01:17:00 [facility] Weight 2018-12-13 01:17:00 [facility] Height 2018-12-13 01:17:00 167.64 cm [facility] Respitory Rate 2018-12-13 01:17:00 [facility] Temperature Oral (F) 2018-12-13 01:17:00 99.2 F [facility] Heart Rate 2018-12-13 01:17:00 [facility] Systolic (mm Hg) 2018-12-13 01:17:00 [facility] Diastolic (mm Hg) 2018-12-13 01:17:00 [facility] Systolic (mm Hg) 2018-12-09 20:35:00 [facility] [place] Diastolic (mm Hg) 2018-12-09 20:35:00 [facility] Respitory Rate 2018-12-09 20:35:00 [facility] Heart Rate 2018-12-09 20:35:00 [facility] Temperature Oral (F) 2018-12-09 20:35:00 99.1 F [facility] Temperature Oral (F) 2018-12-09 16:07:00 98.5 F [facility] Systolic (mm Hg) 2018-12-09 16:07:00 [facility] [place] Diastolic (mm Hg) 2018-12-09 16:07:00 [facility] Respitory Rate 2018-12-09 16:07:00 [facility] Heart Rate 2018-12-09 16:07:00 [facility] Systolic (mm Hg) 2018-12-09 12:39:00 [facility] Diastolic (mm Hg) 2018-12-09 12:39:00 [facility] Respitory Rate 2018-12-09 12:39:00 [facility] Heart Rate 2018-12-09 12:39:00 [facility] Temperature Oral (F) 2018-12-09 12:39:00 98.4 F [facility] Weight 2018-12-04 12:06:00 [facility] Height 2018-12-04 03:30:00 167.64 cm [facility] BMI Calculated 2018-12-04 03:30:00 [facility] Weight 2018-12-04 03:30:00 [facility] BMI Calculated 2018-12-03 20:49:00 [facility] Weight 2018-12-03 20:49:00 [facility] Height 2018-12-03 20:49:00 167.64 cm [facility] Systolic (mm Hg) 2018-10-12 17:28:00 [facility] [place] Diastolic (mm Hg) 2018-10-12 17:28:00 [facility] Heart Rate 2018-10-12 17:28:00 [facility] Respitory Rate 2018-10-12 17:28:00 [facility] Temperature Oral (F) 2018-10-12 17:28:00 98.3 F [facility] Heart Rate 2018-10-12 13:39:00 [facility] Temperature Oral (F) 2018-10-12 13:39:00 97.9 F [facility] Systolic (mm Hg) 2018-10-12 13:39:00 [facility] Diastolic (mm Hg) 2018-10-12 13:39:00 [facility] Respitory Rate 2018-10-12 13:39:00 [facility] Systolic (mm Hg) 2018-10-12 09:47:00 [facility] Diastolic (mm Hg) 2018-10-12 09:47:00 [facility] Respitory Rate 2018-10-12 09:47:00 [facility] Heart Rate 2018-10-12 09:47:00 [facility] Temperature Oral (F) 2018-10-12 09:47:00 98.0 F [facility] Weight 2018-10-11 11:23:00 [facility] Height 2018-10-11 11:23:00 167.64 cm [facility] BMI Calculated 2018-10-11 11:23:00 [facility] Systolic (mm Hg) 2018-10-11 09:27:00 [facility] Diastolic (mm Hg) 2018-10-11 09:27:00 [facility] Temperature Oral (F) 2018-10-11 09:27:00 98.2 F [facility] Respitory Rate 2018-10-11 09:27:00 [facility] Heart Rate 2018-10-11 09:27:00 [facility] Respitory Rate 2018-10-11 05:07:00 [facility] Heart Rate 2018-10-11 05:07:00 [facility] Temperature Oral (F) 2018-10-11 05:07:00 98 F [facility] Systolic (mm Hg) 2018-10-11 05:07:00 [facility] [place] Diastolic (mm Hg) 2018-10-11 05:07:00 [facility] Weight 2018-10-11 01:12:00 [facility] Temperature Oral (F) 2018-10-11 01:12:00 98.6 F [facility] Heart Rate 2018-10-11 01:12:00 [facility] Respitory Rate 2018-10-11 01:12:00 [facility] Systolic (mm Hg) 2018-10-11 01:12:00 [facility] [place] Diastolic (mm Hg) 2018-10-11 01:12:00 [facility] Temperature Oral (F) 2018-09-06 10:17:00 97.6 F [facility] Respitory Rate 2018-09-06 10:17:00 [facility] Heart Rate 2018-09-06 10:17:00 [facility] Systolic (mm Hg) 2018-09-06 10:17:00 [facility] Diastolic (mm Hg) 2018-09-06 10:17:00 [facility] Respitory Rate 2018-09-06 06:28:00 [facility] Temperature Oral (F) 2018-09-06 06:28:00 98.2 F [facility] Heart Rate 2018-09-06 06:28:00 [facility] Systolic (mm Hg) 2018-09-06 06:28:00 [facility] [place] Diastolic (mm Hg) 2018-09-06 06:28:00 [facility] Temperature Oral (F) 2018-09-06 06:16:00 98 F [facility] Height 2018-09-06 06:16:00 167.64 cm [facility] Heart Rate 2018-09-06 06:16:00 [facility] Respitory Rate 2018-09-06 06:16:00 [facility] Systolic (mm Hg) 2018-09-06 06:16:00 [facility] [place] Diastolic (mm Hg) 2018-09-06 06:16:00 [facility] BMI Calculated 2018-09-06 06:16:00 [facility] Weight 2018-09-06 06:16:00 [facility] Systolic (mm Hg) 2018-08-30 17:44:00 [facility] [place] Diastolic (mm Hg) 2018-08-30 17:44:00 [facility] Temperature Oral (F) 2018-08-30 17:44:00 98.0 F [facility] Respitory Rate 2018-08-30 17:44:00 [facility] Heart Rate 2018-08-30 17:44:00 [facility] Heart Rate 2018-08-30 14:10:00 [facility] Respitory Rate 2018-08-30 14:10:00 [facility] Systolic (mm Hg) 2018-08-30 14:10:00 [facility] Diastolic (mm Hg) 2018-08-30 14:10:00 [facility] Temperature Oral (F) 2018-08-30 14:10:00 98.2 F [facility] Respitory Rate 2018-08-30 10:04:00 [facility] Systolic (mm Hg) 2018-08-30 10:04:00 [facility] [place] Diastolic (mm Hg) 2018-08-30 10:04:00 [facility] Heart Rate 2018-08-30 10:04:00 [facility] Temperature Oral (F) 2018-08-30 10:04:00 98.1 F [facility] Height 2018-08-24 22:13:00 167.64 cm [facility] Weight 2018-08-24 22:13:00 [facility] BMI Calculated 2018-08-24 22:13:00 [facility] BMI Calculated 2018-08-24 20:22:00 [facility] Weight 2018-08-24 20:22:00 [facility] Height 2018-08-24 20:22:00 165.1 cm [facility] Weight 2018-08-24 07:42:00 [facility] Temperature Oral (F) 2018-05-22 17:03:00 98.4 F [facility] Respitory Rate 2018-05-22 17:03:00 [facility] Heart Rate 2018-05-22 17:03:00 [facility] Systolic (mm Hg) 2018-05-22 17:03:00 [facility] [place] Diastolic (mm Hg) 2018-05-22 17:03:00 [facility] Respitory Rate 2018-05-22 13:14:00 [facility] Heart Rate 2018-05-22 13:14:00 [facility] Temperature Oral (F) 2018-05-22 13:14:00 98.3 F [facility] Systolic (mm Hg) 2018-05-22 13:14:00 [facility] [place] Diastolic (mm Hg) 2018-05-22 13:14:00 [facility] Systolic (mm Hg) 2018-05-22 11:16:00 [facility] Diastolic (mm Hg) 2018-05-22 11:16:00 [facility] Temperature Oral (F) 2018-05-22 11:16:00 98.2 F [facility] Heart Rate 2018-05-22 11:16:00 [facility] Respitory Rate 2018-05-22 11:16:00 [facility] Weight 2018-05-17 08:15:00 [facility] BMI Calculated 2018-05-17 08:15:00 [facility] Height 2018-05-17 08:15:00 167.64 cm [facility] Weight 2018-05-17 03:51:00 [facility] Temperature Oral (F) 2018-01-13 02:51:00 97.5 F [facility] Respitory Rate 2018-01-13 02:51:00 [facility] Systolic (mm Hg) 2018-01-13 02:51:00 [facility] [place] Diastolic (mm Hg) 2018-01-13 02:51:00 [facility] Heart Rate 2018-01-13 02:51:00 [facility] Height 2018-01-12 21:15:00 167.64 cm [facility] BMI Calculated 2018-01-12 21:15:00 [facility] Weight 2018-01-12 21:15:00 [facility] Heart Rate 2018-01-12 21:15:00 [facility] Systolic (mm Hg) 2018-01-12 21:15:00 [facility] Diastolic (mm Hg) 2018-01-12 21:15:00 [facility] Temperature Oral (F) 2018-01-12 21:15:00 98.8 F [facility] Respitory Rate 2018-01-12 21:15:00 [facility] Heart Rate 2016-12-31 16:21:00 [facility] Systolic (mm Hg) 2016-12-31 16:21:00 [facility] Diastolic (mm Hg) 2016-12-31 16:21:00 [facility] Respitory Rate 2016-12-31 15:59:00 [facility] Heart Rate 2016-12-31 15:59:00 [facility] Temperature Oral (F) 2016-12-31 15:59:00 98.4 F [facility] Systolic (mm Hg) 2016-12-31 15:59:00 [facility] Diastolic (mm Hg) 2016-12-31 15:59:00 [facility] Systolic (mm Hg) 2016-12-31 11:56:00 [facility] [place] Diastolic (mm Hg) 2016-12-31 11:56:00 [facility] Respitory Rate 2016-12-31 11:56:00 [facility] Temperature Oral (F) 2016-12-31 11:56:00 98.5 F [facility] Heart Rate 2016-12-31 11:56:00 [facility] Weight 2016-12-31 11:38:00 [facility] Respitory Rate 2016-12-31 11:03:00 [facility] Temperature Oral (F) 2016-12-31 11:03:00 98 F [facility] BMI Calculated 2016-12-31 04:03:00 [facility] Height 2016-12-31 04:03:00 167.64 cm [facility] Weight 2016-12-31 04:03:00 [facility] Systolic (mm Hg) 2016-12-26 00:49:00 [facility] Diastolic (mm Hg) 2016-12-26 00:49:00 [facility] Respitory Rate 2016-12-26 00:49:00 [facility] Heart Rate 2016-12-26 00:49:00 [facility] Temperature Oral (F) 2016-12-26 00:49:00 98 F [facility] Systolic (mm Hg) 2016-12-26 00:01:00 [facility] [place] Diastolic (mm Hg) 2016-12-26 00:01:00 [facility] Respitory Rate 2016-12-26 00:01:00 [facility] Heart Rate 2016-12-26 00:01:00 [facility] Temperature Oral (F) 2016-12-26 00:01:00 98 F [facility] Weight 2016-12-25 23:55:00 [facility] BMI Calculated 2016-12-25 23:55:00 [facility] Height 2016-12-25 23:55:00 167.64 cm [facility] Systolic (mm Hg) 2016-12-25 22:45:00 [facility] [place] Diastolic (mm Hg) 2016-12-25 22:45:00 [facility] Respitory Rate 2016-12-25 22:45:00 [facility] Height 2016-12-25 19:18:00 167.64 cm [facility] BMI Calculated 2016-12-25 19:18:00 [facility] Weight 2016-12-25 19:18:00 [facility] Temperature Oral (F) 2016-12-25 19:18:00 98.2 F [facility] Heart Rate 2016-12-25 19:18:00 [facility] Systolic (mm Hg) 2016-07-20 04:46:00 [facility] [place] Diastolic (mm Hg) 2016-07-20 04:46:00 [facility] Heart Rate 2016-07-20 04:46:00 [facility] Respitory Rate 2016-07-20 04:46:00 [facility] Temperature Oral (F) 2016-07-20 04:46:00 98.3 F [facility] Weight 2016-07-20 01:24:00 [facility] BMI Calculated 2016-07-20 01:24:00 [facility] Height 2016-07-20 01:24:00 167.64 cm [facility] Temperature Oral (F) 2016-07-20 01:24:00 98.4 F [facility] Systolic (mm Hg) 2016-07-20 01:24:00 [facility] Diastolic (mm Hg) 2016-07-20 01:24:00 [facility] Heart Rate 2016-07-20 01:24:00 [facility] Respitory Rate 2016-07-20 01:24:00 [facility] Systolic (mm Hg) 2016-04-23 08:04:00 [facility] [place] Diastolic (mm Hg) 2016-04-23 08:04:00 [facility] Respitory Rate 2016-04-23 08:04:00 [facility] Heart Rate 2016-04-23 08:04:00 [facility] Temperature Oral (F) 2016-04-23 08:04:00 97.6 F [facility] Height 2016-04-23 05:01:00 157.48 cm [facility] Systolic (mm Hg) 2016-04-23 05:01:00 [facility] Diastolic (mm Hg) 2016-04-23 05:01:00 [facility] Heart Rate 2016-04-23 05:01:00 [facility] Respitory Rate 2016-04-23 05:01:00 [facility] Temperature Oral (F) 2016-04-23 05:01:00 98.2 F [facility] Weight 2016-04-23 05:01:00 [facility] BMI Calculated 2016-04-23 05:01:00 [facility] Systolic (mm Hg) 2016-04-16 08:51:00 [facility] [place] Diastolic (mm Hg) 2016-04-16 08:51:00 [facility] Respitory Rate 2016-04-16 08:51:00 [facility] Heart Rate 2016-04-16 08:51:00 [facility] Temperature Oral (F) 2016-04-16 08:51:00 98.2 F [facility] Respitory Rate 2016-04-16 04:25:00 [facility] Heart Rate 2016-04-16 04:25:00 [facility] Systolic (mm Hg) 2016-04-16 04:25:00 [facility] Diastolic (mm Hg) 2016-04-16 04:25:00 [facility] Height 2016-04-16 04:25:00 167.64 cm [facility] Temperature Oral (F) 2016-04-16 04:25:00 98.7 F [facility] BMI Calculated 2016-04-16 04:25:00 [facility] Weight 2016-04-16 04:25:00 [facility] Systolic (mm Hg) 2016-04-14 08:30:00 [facility] [place] Diastolic (mm Hg) 2016-04-14 08:30:00 [facility] Heart Rate 2016-04-14 08:30:00 [facility] Temperature Oral (F) 2016-04-14 08:30:00 98 F [facility] Systolic (mm Hg) 2016-04-14 07:30:00 [facility] [place] Diastolic (mm Hg) 2016-04-14 07:30:00 [facility] Respitory Rate 2016-04-14 07:30:00 [facility] Heart Rate 2016-04-14 07:30:00 [facility] Temperature Oral (F) 2016-04-14 07:30:00 98 F [facility] Systolic (mm Hg) 2016-04-14 06:30:00 [facility] [place] Diastolic (mm Hg) 2016-04-14 06:30:00 [facility] Respitory Rate 2016-04-14 06:30:00 [facility] Heart Rate 2016-04-14 06:30:00 [facility] Temperature Oral (F) 2016-04-14 06:30:00 98.2 F [facility] BMI Calculated 2016-04-14 05:39:00 [facility] Weight 2016-04-14 05:39:00 [facility] Height 2016-04-14 05:39:00 167.64 cm [facility] Respitory Rate 2016-04-14 05:39:00 [facility] Systolic (mm Hg) 2016-02-24 07:38:00 [facility] Diastolic (mm Hg) 2016-02-24 07:38:00 [facility] Heart Rate 2016-02-24 07:38:00 [facility] Respitory Rate 2016-02-24 07:38:00 [facility] Heart Rate 2016-02-24 03:24:00 [facility] Respitory Rate 2016-02-24 03:24:00 [facility] BMI Calculated 2016-02-24 03:24:00 [facility] Height 2016-02-24 03:24:00 167.64 cm [facility] Weight 2016-02-24 03:24:00 [facility] Temperature Oral (F) 2016-02-24 03:24:00 98.1 F [facility] Systolic (mm Hg) 2016-02-24 03:24:00 [facility] [place] Diastolic (mm Hg) 2016-02-24 03:24:00 [facility] Temperature Oral (F) 2016-01-17 05:32:00 98.1 F [facility] Heart Rate 2016-01-17 05:32:00 [facility] Respitory Rate 2016-01-17 05:32:00 [facility] [place] Systolic (mm Hg) 2016-01-17 05:32:00 [facility] [place] Diastolic (mm Hg) 2016-01-17 05:32:00 [facility] Heart Rate 2016-01-17 04:06:00 [facility] Systolic (mm Hg) 2016-01-17 04:06:00 [facility] Diastolic (mm Hg) 2016-01-17 04:06:00 [facility] Temperature Oral (F) 2016-01-17 04:06:00 98.0 F [facility] Respitory Rate 2016-01-17 04:06:00 [facility] Heart Rate 2016-01-17 01:48:00 [facility] Respitory Rate 2016-01-17 01:48:00 [facility] Systolic (mm Hg) 2016-01-17 01:48:00 [facility] Diastolic (mm Hg) 2016-01-17 01:48:00 [facility] Weight 2016-01-17 01:48:00 [facility] Height 2016-01-17 01:48:00 167.64 cm [facility] BMI Calculated 2016-01-17 01:48:00 [facility] Temperature Oral (F) 2016-01-17 01:48:00 98 F [facility] Respitory Rate 2015-10-13 11:44:00 [facility] Heart Rate 2015-10-13 11:44:00 [facility] Temperature Oral (F) 2015-10-13 11:44:00 98.2 F [facility] Systolic (mm Hg) 2015-10-13 11:44:00 [facility] [place] Diastolic (mm Hg) 2015-10-13 11:44:00 [facility] Height 2015-10-13 05:34:00 167.64 cm [facility] BMI Calculated 2015-10-13 05:34:00 [facility] Weight 2015-10-13 05:34:00 [facility] Heart Rate 2015-10-13 05:34:00 [facility] Respitory Rate 2015-10-13 05:34:00 [facility] Temperature Oral (F) 2015-10-13 05:34:00 98.2 F [facility] Systolic (mm Hg) 2015-10-13 05:34:00 [facility] [place] Diastolic (mm Hg) 2015-10-13 05:34:00 [facility] Respitory Rate 2015-07-04 08:49:00 [facility] Heart Rate 2015-07-04 08:49:00 [facility] Temperature Oral (F) 2015-07-04 08:49:00 98.0 F [facility] Systolic (mm Hg) 2015-07-04 08:49:00 [facility] [place] Diastolic (mm Hg) 2015-07-04 08:49:00 [facility] Respitory Rate 2015-07-04 07:00:00 [facility] Heart Rate 2015-07-04 07:00:00 [facility] Temperature Oral (F) 2015-07-04 07:00:00 98.4 F [facility] Systolic (mm Hg) 2015-07-04 07:00:00 [facility] Diastolic (mm Hg) 2015-07-04 07:00:00 [facility] Heart Rate 2015-07-04 05:28:00 [facility] Respitory Rate 2015-07-04 05:28:00 [facility] Temperature Oral (F) 2015-07-04 05:28:00 98.2 F [facility] Systolic (mm Hg) 2015-07-04 05:28:00 [facility] Diastolic (mm Hg) 2015-07-04 05:28:00 [facility] Weight 2015-07-04 05:28:00 [facility] Systolic (mm Hg) 2015-05-17 11:05:00 [facility] [place] Diastolic (mm Hg) 2015-05-17 11:05:00 [facility] Temperature Oral (F) 2015-05-17 11:05:00 98.2 F [facility] Heart Rate 2015-05-17 11:05:00 [facility] Heart Rate 2015-05-17 10:05:00 [facility] Systolic (mm Hg) 2015-05-17 10:05:00 [facility] [place] Diastolic (mm Hg) 2015-05-17 10:05:00 [facility] Systolic (mm Hg) 2015-05-17 09:05:00 [facility] [place] Diastolic (mm Hg) 2015-05-17 09:05:00 [facility] Heart Rate 2015-05-17 09:05:00 [facility] Respitory Rate 2015-05-17 08:05:00 [facility] Temperature Oral (F) 2015-05-17 08:05:00 99.6 F [facility] Temperature Oral (F) 2015-05-17 06:17:00 99.6 F [facility] Height 2015-05-17 04:59:00 167.64 cm [facility] BMI Calculated 2015-05-17 04:59:00 [facility] Weight 2015-05-17 04:59:00 [facility] Respitory Rate 2015-05-17 04:59:00 [facility] Temperature Oral (F) 2015-05-15 13:01:00 98.9 F [facility] Heart Rate 2015-05-15 13:01:00 [facility] Respitory Rate 2015-05-15 13:01:00 [facility] Systolic (mm Hg) 2015-05-15 13:01:00 [facility] [place] Diastolic (mm Hg) 2015-05-15 13:01:00 [facility] Heart Rate 2015-05-15 07:46:00 [facility] Respitory Rate 2015-05-15 07:46:00 [facility] Systolic (mm Hg) 2015-05-15 07:46:00 [facility] [place] Diastolic (mm Hg) 2015-05-15 07:46:00 [facility] Temperature Oral (F) 2015-05-15 07:46:00 98.1 F [facility] Height 2015-05-15 03:56:00 167.64 cm [facility] BMI Calculated 2015-05-15 03:56:00 [facility] Weight 2015-05-15 03:56:00 [facility] Temperature Oral (F) 2015-05-15 03:56:00 98.3 F [facility] Systolic (mm Hg) 2015-05-15 03:56:00 [facility] [place] Diastolic (mm Hg) 2015-05-15 03:56:00 [facility] Respitory Rate 2015-05-15 03:56:00 [facility] Heart Rate 2015-05-15 03:56:00 [facility] Respitory Rate 2015-02-14 09:30:00 [facility] Systolic (mm Hg) 2015-02-14 09:30:00 [facility] [place] Diastolic (mm Hg) 2015-02-14 09:30:00 [facility] Heart Rate 2015-02-14 09:30:00 [facility] Heart Rate 2015-02-14 04:52:00 [facility] Temperature Oral (F) 2015-02-14 04:52:00 98.3 F [facility] Respitory Rate 2015-02-14 04:52:00 [facility] Systolic (mm Hg) 2015-02-14 04:52:00 [facility] [place] Diastolic (mm Hg) 2015-02-14 04:52:00 [facility] BMI Calculated 2015-02-14 01:00:00 [facility] Weight 2015-02-14 01:00:00 [facility] Temperature Oral (F) 2015-02-14 01:00:00 98.6 F [facility] Height 2015-02-14 01:00:00 167.64 cm [facility] Heart Rate 2015-02-14 01:00:00 [facility] Respitory Rate 2015-02-14 01:00:00 [facility] Systolic (mm Hg) 2015-02-14 01:00:00 [facility] Diastolic (mm Hg) 2015-02-14 01:00:00 [facility] [place] Diastolic (mm Hg) 2014-09-30 07:00:00 [facility] [place] Systolic (mm Hg) 2014-09-30 07:00:00 [facility] [place] Temperature Oral (F) 2014-09-30 07:00:00 98.3 F [facility] Respitory Rate 2014-09-30 07:00:00 [facility] Heart Rate 2014-09-30 07:00:00 [facility] Temperature Oral (F) 2014-09-30 04:47:00 98.2 F [facility] Diastolic (mm Hg) 2014-09-30 04:47:00 [facility] Heart Rate 2014-09-30 04:47:00 [facility] Systolic (mm Hg) 2014-09-30 04:47:00 [facility] [place] Respitory Rate 2014-09-30 04:47:00 [facility] Respitory Rate 2014-09-30 03:54:00 [facility] Heart Rate 2014-09-30 03:54:00 [facility] Diastolic (mm Hg) 2014-09-30 03:54:00 [facility] Temperature Oral (F) 2014-09-30 03:54:00 98.4 F [facility] Height 2014-09-30 03:54:00 167.64 cm [facility] Systolic (mm Hg) 2014-09-30 03:54:00 Efraín riatereso Soto BMI Calculated 2014-09-30 03:54:00 Brayden Hawkins Weight 2014-09-30 03:54:00 [facility] Procedures Procedure Date / Time Performed Performing Clinician Valery greenwood Computed tomography of abdomen and pelvis with contrast 00:00:00 [facility] Complete non-obstetrical ultrasound of pelvis 2020-04-12 00:00:0 0 [facility] Incision AND drainage 2018-05-17 05:00:00 Mendozaeaston micki Soto Cholecystectomy [facility] Plan of Care Planned Activity Planned Date Details Comments Source Instructions Post Operative Pain [facility] Encounters Start Date/Time End Date/Time Encounter Type Admission Type [facility] Care Department Encounter ID Source 2020-03-23 06:02:00 Inpatient U [facility] MED [id number] [facility] 2020-04-13 00:22:00 2020-04-14 20:29:00 Discharged Inpatient (obs) 1 ZOLTAN MCKNIGHT [facility] [id number] [facility] I [facility] 2020-04-04 00:00:00 2020-04-04 00:00:00 Telephone Grey Schultz [facility] [id number] 2020-03-23 06:02:00 2020-03-26 15:12:00 Outpatient Zoya Carbajal chi [facility] [id number] 2020-02-23 07:36:59 2020-02-23 08:06:59 Office Visit Aaliyah Stewart [facility] [id number] 2020-02-06 00:00:00 2020-02-06 00:00:00 Patient Secure Msg Grey Schultz [facility] [id number] 2019-11-02 03:06:00 2019-11-04 13:40:00 Outpatient Hardik Coats [facility]SE [id number] 2019-11-02 02:06:00 2019-11-02 23:59:[address] charisma Frias [facility]SE [facility]SE [id number] 2019-11-02 03:06:00 2019-11-02 03:06:00 Outpatient MHSE MED [id number] [facility] 2019-11-02 02:06:00 2019-11-02 02:06:00 Outpatient MHSE MHSE [id number] [facility] 2019-07-29 17:32:00 2019-07-29 19:13:00 Departed Emergency Room 1 GLYNN BHATT [facility] [id number] I [facility] 2019-06-05 14:58:00 2019-06-05 16:13:00 Departed Emergency Room [facility] [id number] [facility] 2019-05-24 23:55:11 2019-05-25 04:36:00 Outpatient Edison Byron Choudhuryius MHSE MHSE [id number] 2019-05-24 23:55:00 2019-05-24 23:55:00 Emergency E MHSE MHSE [id number] [facility] 2019-05-16 13:43:54 2019-05-16 17:46:00 Outpatient Eliot Wakefield [facility]PL [facility]PL [id number] 2019-05-16 13:43:00 2019-05-16 13:43:00 Emergency E MHBL MHBL [id number] [facility] 2019-04-03 15:26:24 2019-04-03 20:07:00 Outpatient Eliot Wakefield [facility]PL [facility]PL [id number] 2019-04-03 15:26:00 2019-04-03 15:26:00 Emergency E MHBL MHBL [id number] [facility] 2019-03-23 11:40:00 2019-03-24 20:01:00 Outpatient Jose L Cunningham [facility]PL [facility]PL [id number] 2019-03-23 14:49:00 2019-03-23 14:49:00 Outpatient E [facility]BL MED [id number] [facility] 2019-02-28 19:39:04 2019-03-07 20:00:00 Outpatient Carla Campos on MHPL MHPL [id number] 2019-03-02 11:50:00 2019-02-28 23:03:00 Inpatient E [facility] MED [id number] [facility] 2019-01-27 01:47:07 2019-01-31 16:50:00 Outpatient Jennifer White MHSE MHSE [id number] 2019-01-27 17:00:00 2019-01-27 04:15:00 Inpatient E MHSE MED [id number] [facility] 2018-12-12 20:11:18 2018-12-12 22:30:00 Outpatient Herb Martin A MHPL [facility]PL [id number] 2018-12-12 20:11:00 2018-12-12 20:11:00 Emergency E [facility]BL BL [id number] [facility] 2018-12-03 15:44:00 2018-12-09 18:39:00 Outpatient A Terrence ely MHPL MHPL [id number] 2018-12-03 15:44:00 2018-12-09 18:39:00 Outpatient A Terrence ely MHPL [facility]PL [id number] 2018-12-05 11:17:00 2018-12-03 20:46:00 Inpatient E [facility]BL MED [id number] [facility] 2018-10-11 05:02:00 2018-10-12 15:33:00 Outpatient Lexx Sauer MHSE MHSE [id number] 2018-10-10 18:53:00 2018-10-11 04:00:00 Outpatient F Temitope villalobos MHPL MHPL [id number] 2018-09-06 00:08:00 2018-09-06 04:19:00 Outpatient F Ruth apple MHSE MHSE [id number] 2018-09-06 00:08:00 2018-09-06 04:19:00 Outpatient F Ruth apple MHSE MHSE [id number] 2018-08-24 01:36:00 2018-08-30 14:40:00 Outpatient Oralia Hull i MHPL MHPL [id number] 2018-06-24 13:37:00 2018-06-24 23:59:00 Outpatient Tracie Stahl MHOIP MHOIP [id number] 2018-05-16 22:31:00 2018-05-22 13:15:00 Outpatient Oralia Hull i MHPL MHPL [id number] 2018-04-30 13:40:00 2018-04-30 16:17:00 Departed Emergency Room [facility] [id number] [facility] 2018-02-07 14:46:00 2018-02-07 19:52:00 Departed Emergency Room 1 FELICIA DELGADO [facility] [id number] [facility] 2018-02-04 22:15:00 2018-02-05 02:06:00 Departed Emergency Room [facility] [id number] [facility] 2018-01-12 16:14:00 2018-01-12 22:22:00 Outpatient Betty Navarro MHSE MHSE [id number] 2016-12-30 22:54:00 2016-12-31 13:53:00 Outpatient Alec Vicente MHSE MHSE [id number] 2016-12-25 14:16:00 2016-12-25 20:08:00 Outpatient Daniele Weaver MHSE MHSE [id number] 2016-07-19 19:18:00 2016-07-19 22:50:00 Outpatient Jama Khalil MHSE MHSE [id number] 2016-04-22 23:58:00 2016-04-23 03:06:00 Outpatient Lupe, Rosalind Terry MHSE MHSE [id number] 2016-04-15 23:24:00 2016-04-16 03:54:00 Outpatient BlairJeannie castro Ismael curiel MHSE MHSE [id number] 2016-04-14 00:33:00 2016-04-14 03:59:00 Outpatient Cristino Porter MHSE MHSE [id number] 2016-02-23 22:20:00 2016-02-24 02:54:00 Outpatient Wilmar Jackson SE MHSE [id number] 2016-01-16 20:36:00 2016-01-17 00:34:00 Outpatient Salvador Rodríguez PL MHPL [id number] 2015-10-12 23:21:00 2015-10-13 05:47:00 Outpatient Rosy Diaz SE SE [id number] 2015-07-03 23:24:00 2015-07-04 03:54:00 Outpatient Michelle Finley SE SE [id number] 2015-05-16 23:53:00 2015-05-17 07:05:00 Outpatient JoeHenrietta harrisnna SE SE [id number] 2015-05-14 22:48:00 2015-05-15 08:01:00 Outpatient Temitope Cade Jose SE MHSE [id number] 2015-02-13 19:35:00 2015-02-14 05:39:00 Outpatient Zoltan Prince IE IE [id number] 2014-09-29 21:23:00 2014-09-30 02:31:00 Outpatient Mario Gu IE [place] [id number] Results Test Description Test Time Test Comments Results Result Comments Source CT ABDOMEN/PELVIS W 2020-04-17 18:48:00 [place] [address] Patient Name: COLLEEN JOHNSON MR #: [id number] : 1985 Age/Sex: 34/F Req #: [id number] Adm Physician: Ordered by: DANIELLE REYES MD Report #: [id number] Location: ER Room/Bed: Procedure: [id number] CT/CT ABDOMEN/PELVIS W Exam Date: 04/17/20 Exam Time: 1800 REPORT STATUS: Signed EXAM: CT Abdomen and Pelvis WITH contrast INDICATION: RIGHT LOWER ABD WALL ABSCESS COMPARISON: Multiple prior CT abdomen and pelvis examinations most recent dated 04/12/2020. TECHNIQUE: Abdomen and pelvis were scanned utilizing a multidetector helical scanner from the lung base to the pubic symphysis after administration of IV contrast. Coronal and sagittal reformations were obtained. Routine protocol was performed. Scan was performed when during portal venous phase. IV CONTRAST: 100 mL of Isovue 370 ORAL CONTRAST: None COMPLICATIONS: None RADIATION DOSE: Total DLP: 921.69 mGy*cm Estimated effective dose: (DLP x 0.015 [...] in the spine. SOFT TISSUES: There is marked interval increase in fat stranding involving the right an terior abdominal wall associated with a small fat-containing umbilical hernia. There is new focus of air seen (series 2, image 67) which could be infectious related or post procedural if there is history of recent procedure. There is also associated increased thickening of the right rectus muscle likely inflammatory. IMPRESSION: Marked interval increase in fat stranding involving the right anterior abdominal wall soft tissues associated with a small fat-containing umbilical hernia compatible with cellulitis. There is associated new focus of air seen which could be infectious related or post procedural if there is history of recent procedure. No definite abscess or drainable collection. Signed by: Tobi Quintanilla MD on 04/17/2020 7:18 PM Dictated By: TOBI QUINTANILLA MD 17 Transcribed By: LILIA on 04/17/201917 COPY TO: DANIELLE REYES MD Blood leukocytes automated count (number/volume) 2020-04-14 05:40:00 Test Item White Blood Count (test code = 6690-2) 11.99 4.8-10.8 [facility] (number/volume)2020-04-14 05:40:00* Test Item Value Reference Range Interpretation Comments Red Blood Count (test code = 789-8) 3.85 3.6-5.1 [facility] measurement (moles/volume)2020-04-14 05:40:00* Test Item Value Reference Range Interpretation Comments Hemoglobin (test code = 29398-8) 10.9 12.0-16.0 [facility] HospitalAutomated blood hematocrit (volume fraction)2020-04-14 05:40:00* Test Item Value Reference Range Interpretation Comments Hematocrit (test code = 4544-3) 34.7 34.2-44.1 [facility] HospitalAutomated erythrocyte mean corpuscular usqsbl1524-96-74 05:40:00* Test Item Value Reference Range Interpretation Comments Mean Corpuscular Volume (test code = 787-2) 90.1 81-99 [facility] HospitalAutomated erythrocyte mean corpuscular hemoglobin (mass per erythrocyte)2020-04-14 05:40:00* Test Item Value Reference Range Interpretation Comments Mean Corpuscular Hemoglobin (test code = 785-6) 28.3 28-32 [facility] HospitalAutom[facility] erythrocyte mean corpuscular hemoglobin concentration measurement (mass/volume)2020-04-14 05:40:00* Test Item Value Reference Range Interpretation Comments Mean Corpuscular Hemoglobin Concent (test code = 786-4) 31.4 31-35 [facility] HospitalRDW WzrFd-Sze4847-18-29 05:40:00* Test Item Value Reference Range Interpretation Comments Red Cell Distribution Width (test code = 47990-0) 12.9 11.7 -14.4 [facility] HospitalAutom[facility] blood platelet count (count/volume)2020-04-14 05:40:00* Test Item Value Reference Range Interpretation Comments Platelet Count (test code = 777-3) 226 140-360 [facility] HospitalAutom[facility] blood segmented neutrophil count as percentage of total lqiqfdiews4819-84-77 05:40:00* Test Item Value Reference Range Interpretation Comments Neutrophils (%) (Auto) (test code = 71812-7) 79.2 38.7-80.0 [facility] HospitalAutom[facility] blood lymphocyte count as percentage ot total sdpkxuwffy0298-45-12 05:40:00* Test Item Value Reference Range Interpretation Comments Lymphocytes (%) (Auto) (test code = 736-9) 13.0 18.0-39.1 [facility] HospitalAutom[facility] blood monocyte count as percentage of total wqairwmshn8965-51-44 05:40:00* Test Item Value Reference Range Interpretation Comments Monocytes (%) (Auto) (test code = 5905-5) 7.0 4.4-11.3 [facility] HospitalAutom[facility] blood eosinophil count as percentage of total dnakvmtzby2298-83-21 05:40:00* Test Item Value Reference Range Interpretation Comments Eosinophils (%) (Auto) (test code = 713-8) 0.1 0.0-6.0 [facility]Autom[facility] blood basophil count as percentage of total mwueevlata8609-78-35 05:40:00* Test Item Value Reference Range Interpretation Comments Basophils (%) (Auto) (test code = 706-2) 0.3 0.0-1.0 [facility] HospitalFluoroscopic procedure less than one hour aworflxi7817-68-16 05:40:00* Test Item Value Reference Range Interpretation Comments IM GRANULOCYTES % (test code = IM GRANULOCYTES %) 0.4 0.0- 1.0 [facility] HospitalAutom[facility] blood neutrophil count 2020-04-14 05:40:00* Test Item Value Reference Range Interpretation Comments Neutrophils # (Auto) (test code = 751-8) 9.5 2.1-6.9 [facility]Blood lymphocytes count (number/volume) 2020-04-14 05:40:00* Test Item Value Reference Range Interpretation Comments Lymphocytes # (Auto) (test code = 89984-8) 1.6 1.0-3.2 [facility]Blood monocytes automated count (number/volume)2020-04-14 05:40:00* Test Item Value Reference Range Interpretation Comments Monocytes # (Auto) (test code = 742-7) 0.8 0.2-0.8 [facility] HospitalAutomated blood eosinophil count 2020-04-14 05:40:00* Test Item Value Reference Range Interpretation Comments Eosinophils # (Auto) (test code = 711-2) 0.0 0.0-0.4 [facility] HospitalAutomated blood basophil count (count/volume)2020-04-14 05:40:00* Test Item Value Reference Range Interpretation Comments Basophils # (Auto) (test code = 704-7) 0.0 0.0-0.1 [facility] HospitalFluoroscopic procedure less than one hour lomynvib3496-81-20 05:40:00* Test Item Value Reference Range Interpretation Comments Absolute Immature Granulocyte (auto (tristan t code = Absolute Immature Granulocyte (auto) 0.05 0-0.1 [facility] plasma sodium measurement (moles/volume)2020-04-14 05:40:00* Test Item Value Reference Range Interpretation Comments Sodium Level (test code = 2951-2) 137 136-145 [facility] or plasma potassium measurement (moles/volume)2020-04-14 05:40:00* Test Item Value Reference Range Interpretation Comments Potassium Level (test code = 2823-3) 3.9 3.5-5.1 [facility] plasma chloride measurement (moles/volume)2020-04-14 05:40:00* Test Item Value Reference Range Interpretation Comments Chloride Level (test code = 2075-0) 109 98-107 [facility] or plasma carbon dioxide, total measurement (moles/volume)2020-04-14 05:40:00* Test Item Value Reference Range Interpretation Comments Carbon Dioxide Level (test code = 2028-9) 20 22-29 [facility] or plasma anion hpl4748-62-73 05:40:00* Test Item Value Reference Range Interpretation Comments Anion Gap (test code = 98996-8) 11.9 8-16 [facility] or plasma urea nitrogen measurement (mass/volume)2020-04-14 05:40:00* Test Item Value Reference Range Interpretation Comments Blood Urea Nitrogen (test code = 3094-0) 8 7-26 [facility] or plasma creatinine measurement (mass/volume)2020-04-14 05:40:00* Test Item Value Reference Range Interpretation Comments Creatinine (test code = 2160-0) 0.67 0.57-1.11 [facility] or plasma urea nitrogen/creatinine mass cdlyx0598-50-34 05:40:00* Test Item Value Reference Range Interpretation Comments BUN/Creatinine Ratio (test code = 3097-3) 12 6-25 [facility] HospitalEstimated glomerular filtration rate (GFR) rziiiufxasdca0705-41-87 05:40:00* Test Item Value Reference Range Interpretation Comments Estimat Glomerular Filtration Rate (test code = 780905536) > 60 >60 Ranges were taken from the National Kidney Disease Education Program and the [employer] literature.Reference ranges:60 or greater: Nkoprg03-03 ( for 3 consecutive months): Chronic kidney disease 15 or less: Kidney failureMemorial Hermann Pearland HospitalGlucose djqaprhmyfn1421-89-42 05:40:00* Test Item Value Reference Range Interpretation Comments Glucose Level (test code = IUK3386) 100 74-118 [facility] or plasma calcium measurement (mass/volume)2020-04-14 05:40:00* Test Item Value Reference Range Interpretation Comments Calcium Level (test code = 87527-9) 7.6 8.4-10.2 [facility] HospitalFluoroscopic procedure less than one hour wsbgltnx9959-72-31 01:08:00* Test Item Value Reference Range Interpretation Comments Coronavirus (PCR) (test code = Coronavirus (PCR)) NOT DETECTED NOTD ETECTED Hologic Aptima SARS-CoV-2 assay is a nucleic amplification test intended for the qualitative detection of RNA from SARS-CoV-2 from nasopharyngeal ([employer]) specimens . It is used under Emergency [...] for reprat testing oc clinically indicated.Tesing performed by:[facility] [address] [place] [address] [id number], Zoltan Ponce MD, PhD [facility] HospitalUS PELVIS COMPLETE NON BI7829-96-27 23:51:00 [place] [address] Patient Name: COLLEEN JOHNSON MR #: [id number] : 1985 Age/Sex: 34/F Req #: [id number] Adm Physician: Ordered by: ZOLTAN MCKNIGHT MD Report #: [id number] Location: ER Room/Bed: Procedure: [id number] US/US PELVIS COMPLETE NON OB Exam Date: [...] COPY TO: ZOLTAN MCKNIGHT MD CT ABDOMEN/PELVIS J6633-03-51 21:42:00 [place] [address] Patient Name: COLLEEN JOHNSON MR #: [id number] : 1985 Age/Sex: 34/F Req #: [id number] Adm Physician: Ordered by: ZOLTAN MCKNIGHT MD Report #: [id number] Location: ER Room/Bed: Procedure: [id number] CT/CT ABDOMEN/PELVIS W Exam Date: 04/12/20 Exam [...] limits set by the [facility] ([facility]). Dose modulation, iterative reconstruction, and/or weight b [...] Bilirubin (test code = 1975-2) 0.5 0.2-1.2 [facility] HospitalFluoroscopic procedure less than one hour gwvwdaqh4576-99-88 19:30:00* Test Item Value Reference Range Interpretation Comments Aspartate Amino Transf (AST/SGOT) (test code = Aspartate Amino Transf (AST/SGOT)) 21 5-34 [facility] or plasma alanine aminotransferase measurement (enzymatic activity/volume)2020-04-12 19:30:00* Test Item Value Reference Range Interpretation Comments Alanine Aminotransferase (ALT/SGPT) (test code = 1742-6) 17 0-55 [facility] or plasma protein measurement (mass/volume)2020-04-12 19:30:00* Test Item Value Reference Range Interpretation Comments Total Protein (test code = 2885-2) 7.9 6.5-8.1 [facility] or plasma albumin measurement (mass/volume)2020-04-12 19:30:00* Test Item Value Reference Range Interpretation Comments Albumin (test code = 1751-7) 3.8 3.5-5.0 [facility] HospitalPlasma globulin measurement (mass/volume) 2020-04-12 19:30:00* Test Item Value Reference Range Interpretation Comments Globulin (test code = 76559-5) 4.1 2.3-3.5 [facility] or plasma albumin/globulin mass cdwlg5783-72-84 19:30:00* Test Item Value Reference Range Interpretation Comments Albumin/Globulin Ratio (test code = 1759-0) 0.9 0.8-2.0 [facility] or plasma alkaline phosphatase measurement (enzymatic activity/volume)2020-04-12 19:30:00* Test Item Value Reference Range Interpretation Comments Alkaline Phosphatase (test code = 6768-6) 79 40-150 [facility] or plasma amylase measurement (enzymatic activity/volume)2020-04-12 19:30:00* Test Item Value Reference Range Interpretation Comments Amylase Level (test code = 1798-8) 41 25-125 [facility] or plasma lipase measurement (enzymatic activity/volume)2020-04-12 19:30:00* Test Item Value Reference Range Interpretation Comments Lipase (test code = 3040-3) 16 8-78 [facility] color zglptqyhjlnwr2802-15-12 19:27:00* Test Item Value Reference Range Interpretation Comments Urine Color (test code = 5778-6) YELLOW YELLOW [facility] xhdmaoh1154-10-26 19:27:00* Test Item Value Reference Range Interpretation Comments Urine Clarity (test code = 94990-3) SL CLOUDY CLEAR [facility] gravity of Urine by Test strip 2020-04-12 19:27:00* Test Item Value Reference Range Interpretation Comments Urine Specific [place] (test code = 5811-5) 1.030 1.010-1.02 5 [facility] pH measurement by automated test ercnp3226-45-52 19:27:00* Test Item Value Reference Range Interpretation Comments Urine pH (test code = 77225-1) 6.5 5-7 [facility] HospitalU[facility] leukocyte esterase detection by plzdxoui9937-81-21 19:27:00* Test Item Value Reference Range Interpretation Comments Urine Leukocyte Esterase (test code = 5799-2) NEGATIVE NEGATIVE [facility] HospitalUrine nitrite tlnecdcqa7678-40-89 19:27:00* Test Item Value Reference Range Interpretation Comments Urine Nitrite (test code = 31048-6) NEGATIVE NEGATIVE [facility] Hospital[facility] protein measurement by test strip (mass/volume)2020-04-12 19:27:00* Test Item Value Reference Range Interpretation Comments Urine Protein (test code = 5804-0) NEGATIVE NEGATIVE [facility] HospitalU[facility] glucose bketdvmkx9667-99-94 19:27:00* Test Item Value Reference Range Interpretation Comments Urine Glucose (UA) (test code = 2349-9) NEGATIVE NEGATIVE [facility] HospitalU[facility] ketones detection by automated test nygxt6066-45-31 19:27:00* Test Item Value Reference Range Interpretation Comments Urine Ketones (test code = 45441-4) NEGATIVE NEGATIVE [facility] HospitalUrine opiates screening kaoy6514-56-25 19:27:00* Test Item Value Reference Range Interpretation Comments Urine Opiates Screen (test code = 14476-2) NEGATIVE NEGATIVE ALL TESTS PERFORMED MANUALLY ON [employer] TOX/SEE TESTMemorial Hermann Pear[facility] HospitalBarbiturates screen, dtskv6970-67-95 19:27:00* Test Item Value Reference Range Interpretation Comments Urine Barbiturates Screen (test code = 880839224) NEGATIVE NEGA TIVE [facility] HospitalUrine phencyclidine detection by screening xpvmsp1609-00-27 19:27:00* Test Item Value Reference Range Interpretation Comments Urine Phencyclidine Screen (test code = 50123-9) NEGATIVE NEGAT ANOOP [facility] HospitalUrine amphetamines detection by screen method > 1000 ng/hO0320-78-17 19:27:00* Test Item Value Reference Range Interpretation Comments Urine Amphetamines Screen (test code = 40139-8) POSITIVE NEGATI VE This test provides only a screen. Positive results should be repeated by a confi rmatory test.[facility] HospitalFluoroscopic procedure less than one hour nbdpzvrg3469-95-59 19:27:00* Test Item Value Reference Range Interpretation Comments Urine Methamphetamines Screen (test code = Urine Metha mphetamines Screen) NEGATIVE NEGATIVE [facility] HospitalUrine benzodiazepines detection by screening ghgryd3337-59-98 19:27:00* Test Item Value Reference Range Interpretation Comments Urine Benzodiazepines Screen (test code = 86666-6) POSITIVE NEG ATIVE This test provides only a screen. Positive results should be repeated by a confi rmatory test.[facility] HospitalUrine cocaine measurement (mass/volume)2020-04-12 19:27:00* Test Item Value Reference Range Interpretation Comments Urine Cocaine Screen (test code = 3398-5) NEGATIVE NEGATIVE [facility] HospitalUrine cannabinoids detection by screening tpjbpb5287-27-67 19:27:00* Test Item Value Reference Range Interpretation Comments Urine Cannabinoids Screen (test code = 30241-8) NEGATIVE NEGATI VE THESE RESULTS ARE FOR MEDICAL TREATMENT ONLYTHIS REPORT CONTAINS UNCONFIR MED SCREENING RESULTS*POSITIVE RESULTS WILL BE CONFIRMED BY REFERENCE LAB UPON R EQUEST CUT-OFFDRUG CLASS CONCENTRATION ng/mLAmphetamines 1000Methamphetamines 1000Cocaine 300Opiate 300Phencyc lidine 25Cannabinoid 50Barbiturates 300Benzodiazepine 300Methadone 300[facility] dchjnk3966-88-68 19:27:00* Test Item Value Reference Range Interpretation Comments Urine Methadone Screen (test code = 26410-2) NEGATIVE NEGATIVE THESE RESULTS ARE FOR MEDICAL TREATMENT ONLYTHIS REPORT CONTAINS UNCONFIR MED SCREENING RESULTS*POSITIVE RESULTS WILL BE CONFIRMED BY REFERENCE LAB UPON R EQUEST CUT-OFFDRUG CLASS CONCENTRATION ng/mLAmphetamines 1000Methamphetamines 1000Cocaine Metabolite 300Opiate 300Phencyc lidine 25Cannabinoid 50Barbiturates 300Benzodiazepine 300Methadone 300[facility] HospitalUrine urobilinogen measurement by test strip (mass/volume)2020-04-12 19:27:00* Test Item Value Reference Range Interpretation Comments Urine Urobilinogen (test code = 43034-6) 0.2 0.2-1 [facility] HospitalUrine total bilirubin measurement (mass/volume)2020-04-12 19:27:00* Test Item Value Reference Range Interpretation Comments Urine Bilirubin (test code = 1978-6) NEGATIVE NEGATIVE [facility] HospitalUrine erythrocytes suefukdyt2938-99-70 19:27:00* Test Item Value Reference Range Interpretation Comments Urine Blood (test code = 74356-2) MODERATE NEGATIVE [facility] HospitalAutomated urine sediment leukocyte count by microscopy (number/high power field)2020-04-12 19:27:00* Test Item Value Reference Range Interpretation Comments Urine WBC (test code = 5821-4) NONE 0-5 [facility] HospitalErythrocytes detection in urine sediment by light qkjyvhcgnc2600-79-06 19:27:00* Test Item Value Reference Range Interpretation Comments Urine RBC (test code = 04777-2) 6-10 0-5 [facility] HospitalBacteria detection in urine sediment by light jpahgffjjv3986-07-81 19:27:00* Test Item Value Reference Range Interpretation Comments Urine Bacteria (test code = 62285-8) MANY NONE [facility] HospitalEpithelial cells detection in urine sediment by light etjxlxcdtb2619-84-74 19:27:00* Test Item Value Reference Range Interpretation Comments Urine Epithelial Cells (test code = 95650-7) MANY NONE [facility] HospitalTransitional cells detection in urine sediment by light lqqyurdkxu6559-57-82 19:27:00* Test Item Value Reference Range Interpretation Comments Urine Transitional Epithelial Cells (test code = 8249-5) FEW NONE [facility] HospitalUrine human chorionic gonadotropin (hCG) cifjujurt7483-46-24 19:27:00* Test Item Value Reference Range Interpretation Comments Urine Test (test code = 2106-3) NEGATIVE NEGATIVE [facility] HospitalTOXICOLOGY2020-08-10 02:10:0011.7[facility] ZhabdalQOVJOAQGPN1607-40-17 02:10:00* Test Item Value Reference Range Interpretation Comments Vanco Tr TND (test code = Vanco Tr TND) 2200 1 [facility]annCHEM WUBOU6395-49-52 17:36:87884Lxhztopp HermannCHEM PANEL 2020-03-25 17:36:0010[facility]annCHE[facility] SDXAF6172-32-06 17:36:000.64[facility]annCHEM SLKXT6116-06-52 17:36:92816Xxqyxpjo [facility]annCHEM CUHKW8729-19-93 17:36:004.1[facility]annCHEM ULXNU1040-13-18 17:36:50101Prcklpbg [facility]annCHE[facility] BEPFU1458-43-40 17:36:0030[facility]annCHEM IWHJA1147-77-52 17:36:008.4 [facility]annCHE[facility] EDUVU9217-37-28 17:36:007.1[facility] HermannCHEM PANEL 2020-03-25 17:36:56893Jghkowyc KpqrqckSLKJHLCETW2990-19-41 14:50:0021.4[facility] UbwyhviJCDNEWYYRD0870-08-47 14:50:00* Test Item Value Reference Range Interpretation Comments Vanco Tr TND (test code = Vanco Tr TND) 1000 1 [facility] SdwavndSZBPZTTRRN3185-64-02 14:36:0013.7[facility] HermannTOXICOLOGY 2020-03-24 14:36:00* Test Item Value Reference Range Interpretation Comments Vanco Tr TND (test code = Vanco Tr TND) 1100 1 [facility] HermannTRIMETHOPRIM+SULFAMETHOXAZOLE:SUSC:PT:ISOLATE:ORDQN:MONISHA 2020-03-23 12:34:00Staphylococcus aureusMemorial HermannCHEM XXPGA2868-28-09 12:20:0092[facility]annCHEM LPLCV4740-21-65 12:20:0011[facility]annCHEM PZQMX9108-64-18 12:20:000.64[facility]annCHEM LJWTW4714-18-73 12:20:60354 [facility]annCHE[facility] BPISS6762-58-97 12:20:003.7[facility] HermannCHEM PANEL 2020-03-23 12:20:66858Cioiatkm HermannCHEM UIDQT1598-05-74 12:20:0028[facility]annCHEM FZZOU0224-66-73 12:20:008.2[facility]annCHEM CPOSH3368-89-84 12:20:002.8[facility]annCHEM EREIL9641-51-64 12:20:0016[facility]annCHEM WRAZD7796-01-14 12:20:0011[facility]annCHEM WAMDS3869-99-42 12:20:007.7 [facility]annCHE[facility] ZFZCY5032-41-68 12:20:00* Test Item Value Reference Range Interpretation Comments B/C Ratio (test code = B/C Ratio) 17 1 6-25 [facility]annCHE[facility] WVEAE2644-96-82 12:20:91504Bicblqmw HermannCHEM PANEL 2020-03-23 12:20:006.7[facility]annCHEM LYGYY5366-81-24 12:20:0075[facility]annCHEM HZPRP6512-10-87 12:20:000.5[facility]annCHEM OTALY5416-19-20 12:20:003.9[facility]annCHEM LNFMA5976-42-93 12:20:00* Test Item Value Reference Range Interpretation Comments A/G Ratio (test code = A/G Ratio) 0.7 1 0.7-1.6 [facility] MouhunuFOCJFHNBLU4132-97-91 12:20:0010.2[facility] HermannHEMATOLOGY 2020-03-23 12:20:004.12[facility] IyiiutvJBRMVLHVNW7390-31-15 12:20:0012.2[facility] YffkzlwVCENXLLIOT3133-00-09 12:20:0036.5[facility] HtiyxfcXYYHSWYQGE2744-02-89 12:20:0088.6[facility] HqloiwvPEMABEQWGE4771-74-68 12:20:00* Test Item Value Reference Range Interpretation Comments MCH (test code = MCH) 29.5 pg 27.0-31.0 [facility] MujaujfGZOFRWOYSR8588-89-07 12:20:0033.3[facility] HermannHEMATOLOGY 2020-03-23 12:20:0013.9[facility] NpydjorPUAEPZTMKT4412-65-02 12:20:13801Tztbdhgz RrbvxkuDZQPRWSONO8926-51-81 12:20:008.3[facility] BowjmrtJLUGLKOUHC6840-69-17 12:20:0063.8[facility] MpcsqsfMTCJCFGFPF4161-14-57 12:20:0021.4[facility] WNMIZUFAIF3495-89-32 12:20:009.2[facility] ImltovhPXBVOREJGP8409-36-40 12:20:004.6 [facility] VsxlqktFNCGSRXVTY5183-58-95 12:20:001.0[facility] HermannHEMATOLOGY 2020-03-23 12:20:006.5[facility] XrwgkuoMLORLJCREI9189-32-39 12:20:002.2[facility] HdggyfbQFNNGPIKRQ3865-63-15 12:20:000.9[facility] PqikcoiHBNEOTJXYC3153-02-58 12:20:000.5[facility] UzgmxxdXFWIHBUSHZ2688-25-51 12:20:000.1[facility] [place] URINALYSIS OBFWJHVP7466-80-18 09:07:00* Test Item Value Reference Range Interpretation [...] HPF NONE Urine Source? Clean CatchUR HCG ICFT9677-79-33 09:07:00* Test Item Value Reference Range Interpretation Comments UR HCG QUAL (test code = HCGQLU) NEGATIVE This HCGQL test is NOT applicable for MALE patients.Check with nurse about probable order error.If Tumor Marker Test needed, nurse should order test "HCGTU"(Test #550.35747) Urine Source? Clean CatchDRUGS OF ABUSE SCREEN WY1567-76-32 09:07:00* Test Item Value Reference Range Interpretation [...] NEGATIVE NEGATIV E Urine Source? Clean CatchURINALYSIS NOACOSOK7628-69-42 09:00:00* Test Item Value Reference Range Interpretation [...] HPF NONE Urine Source? Clean CatchUR HCG AXRS6863-59-13 09:00:00* Test Item Value Reference Range Interpretation Comments UR HCG QUAL (test code = HCGQLU) NEGATIVE This HCGQL test is NOT applicable for MALE patients.Check with nurse about probable order error.If Tumor Marker Test needed, nurse should order test "HCGTU"(Test #550.37454) Urine Source? Clean CatchDRUGS OF ABUSE SCREEN NB3626-19-80 09:00:00* Test Item Value Reference Range Interpretation Comments URN COCAINE (test code = COCAURN) NEGATIVE URN CANNABINOIDS (test code = CANNABURN) NEGATIVE URN AMPHETAMINE (test code = AMPHETURN) NEGATIVE URN BARBITURATE (test code = BARBITURN) NEGATIVE URN BENZODIAZEPINE (test code = BENZOURN) NEGATIVE URN OPIATES (test code = OPIATURN) NEGATIVE URN PHENCYCLIDINE (PCP) (test code = PHENCURN) NEGATIV E Urine Source? Clean CatchURINALYSIS LHVCDEVB2336-82-04 08:55:00* Test Item Value Reference Range Interpretation [...] HPF NONE Urine Source? Clean CatchUR HCG FRDU3077-91-52 08:55:00* Test Item Value Reference Range Interpretation Comments UR HCG QUAL (test code = HCGQLU) NEGATIVE This HCGQL test is NOT applicable for MALE patients.Check with nurse about probable order error.If Tumor Marker Test needed, nurse should order test "HCGTU"(Test #550.89676) Urine Source? Clean CatchDRUGS OF ABUSE SCREEN NP1330-08-34 08:55:00* Test Item Value Reference Range Interpretation Comments URN COCAINE (test code = COCAURN) NEGATIVE URN CANNABINOIDS (test code = CANNABURN) NEGATIVE URN AMPHETAMINE (test code = AMPHETURN) NEGATIVE URN BARBITURATE (test code = BARBITURN) NEGATIVE URN BENZODIAZEPINE (test code = BENZOURN) NEGATIVE URN OPIATES (test code = OPIATURN) NEGATIVE URN PHENCYCLIDINE (PCP) (test code = PHENCURN) NEGATIV E Urine Source? Clean CatchURINALYSIS EXQOTQVQ4912-36-40 08:53:00* Test Item Value Reference Range Interpretation [...] HPF NONE Urine Source? Clean CatchUR HCG DVEP2106-92-40 08:53:00* Test Item Value Reference Range Interpretation Comments UR HCG QUAL (test code = HCGQLU) Urine Source? Clean CatchDRUGS OF ABUSE SCREEN PT0446-60-67 08:53:00* Test Item Value Reference Range Interpretation Comments URN COCAINE (test code = COCAURN) NEGATIVE URN CANNABINOIDS (test code = CANNABURN) NEGATIVE URN AMPHETAMINE (test code = AMPHETURN) NEGATIVE URN BARBITURATE (test code = BARBITURN) NEGATIVE URN BENZODIAZEPINE (test code = BENZOURN) NEGATIVE URN OPIATES (test code = OPIATURN) NEGATIVE URN PHENCYCLIDINE (PCP) (test code = PHENCURN) NEGATIV E Urine Source? Clean VqjeoCRGIIYDAHH9818-07-72 14:27:0014.1[facility]annCHEM GQROX8457-29-60 10:40:0099[facility]annCHEM PMUTL0452-77-28 10:40:008[facility]annCHEM RFFOF8923-87-46 10:40:000.59[facility]annCHEM APFBS2950-51-53 10:40:11168Dyyyxjqb [facility]annCHE[facility] SIIBH1557-00-77 10:40:004.0[facility]annCHEM HLCMS9740-77-31 10:40:33786Mxhdrtdb [facility]annCHE[facility] OQJIA1828-62-96 10:40:0025 [facility]annCHE[facility] FQAVK5013-31-57 10:40:008.5[facility] HermannCHEM PANEL 2019-11-03 10:40:006.4[facility]annCHEM CHONS5293-91-01 10:40:002.8[facility]annCHEM KNTHT2025-02-93 10:40:0051[facility]annCHEM KJWGX0669-23-67 10:40:0041[facility] HermannCHEM WAVEG6672-66-76 10:40:0084[facility] HermannCHEM WCAOP6986-93-99 10:40:000.4[facility] HermannCHEM HNVDI7433-65-41 10:40:008.0 [facility]annCHE[facility] YDTFK2632-61-85 10:40:00* Test Item Value Reference Range Interpretation Comments B/C Ratio (test code = B/C Ratio) 14 1 6-25 [facility]annCHE[facility] CBRIT9274-05-62 10:40:003.6[facility] HermannCHEM PANEL 2019-11-03 10:40:00* Test Item Value Reference Range Interpretation Comments A/G Ratio (test code = A/G Ratio) 0.8 1 0.7-1.6 [facility]annCHEM FYCUU1445-55-10 10:40:72732Kzuepglg HermannHEMATOLOGY 2019-11-03 10:40:0065.6[facility] EldkvucYZWUWPIJEI0428-32-37 10:40:0020.6[facility] UlrtyytUDCWZTNWCI6969-81-79 10:40:008.8[facility] MmtnkhuWTUNASGIWO2609-61-66 10:40:004.2[facility] RgmzfbtZMCIVDVOZA5636-21-57 10:40:000.8[facility] QWLIQHARAJ6759-26-65 10:40:006.0[facility] OwghatcPXNDBOIUMH5842-81-61 10:40:001.9 [facility] PrmetiiOOIURRIECY6729-50-86 10:40:000.8[facility] HermannHEMATOLOGY 2019-11-03 10:40:000.4[facility] KcswuznYOGIYGQUET8398-12-47 10:40:000.1[facility] HvzeoryLQWTXOFDBN8073-67-15 10:40:009.1[facility] XmanasjHDBRBNFPUD3194-19-59 10:40:004.27[facility] KoxlmnlNEUKODDTPX7184-52-34 10:40:0012.4[facility] [place] DXRXCJOGVW3177-65-46 10:40:0038.1[facility] PngfgjrYHNZVNXUQX4182-63-76 10:40:00 89.2[facility] KhpoaexMQWRWODSVQ5088-28-68 10:40:00* Test Item Value Reference Range Interpretation Comments MCH (test code = MCH) 29.0 pg 27.0-31.0 [facility] IlgtlyoOORUNEWSYJ0624-83-95 10:40:0032.5[facility] HermannHEMATOLOGY 2019-11-03 10:40:0013.1[facility] FnzbwihPOJMAZBMNY1173-39-13 10:40:30702Myathvag QzvbelfLHRRTNSUBX8365-64-01 10:40:008.9[facility] HermannSPECIAL CHEMISTRY 2019-11-03 10:40:005.3[facility] HermannCHEM FPFKS6082-85-14 10:09:0096[facility] HermannCHEM ZMEFO2863-43-51 10:09:009[facility] HermannCHEM ESHCR9814-57-23 10:09:000.70[facility] HermannCHEM VKZRI4465-78-50 10:09:67595Gfarllvt HermannCHEM PSODB6119-87-22 10:09:004.0[facility] HermannCHEM FSSGV8150-61-18 10:09:14581 [facility]annCHE[facility] FZWCR9375-78-56 10:09:0026[facility] HermannCHEM PANEL 2019-11-02 10:09:008.3[facility] HermannCHEM JPARW1369-54-83 10:09:009.0[facility] HermannCHEM LVQHC9712-57-22 10:09:09032Ogoekgrf [place]- CTA PIOPE3257-48-36 20:38:00 Name: COLLEEN JOHNSON [facility] : 1985 Age/S: 33 / F [address] [facility] Unit #: [id number] Loc: [place] [address] Phys: Loreto Whiting MD Acct: [id number] Dis Date: Status: REG ER PHONE #: [phone] Exam Date: 08/16/20191954 FAX #: [phone] Reason: SOB, pleuritic CP, hemoptysis EXAMS: CPT CODE: [id number] CTA CHEST 36471 REASON FOR EXAM: SOB, pleuritic CP, hemoptysis EXAM ORDER DATE: 08/16/2019 6:12 PM Ordering Nikole: Loreto Whiting MD PROCEDURE: - CTA CHEST [...] 1 Signed Report (CONTINUED) Name: COLLEEN JOHNSON [facility] : 1985 Age/S: 33 / F [address] [facility] Unit #: [id number] Loc: [place] [address] Phys: Loreto Whiting MD Acct: [id number] Dis Date: Status: REG ER PHONE #: [phone] Exam Date: 08/16/20191954 FAX #: [phone] Reason: SOB, p leuritic CP, hemoptysis EXAMS: CPT CODE: [id number] CTA CHEST 14967 <Continued> segment of the left lower lobe may represent an infectious process. Remainder of the lungs are clear. Location: [facility] at 2038 Reported and signed by: Carlton Alcaraz MD CC: Loreto Whiting MD Technologist:EDY LUNA RT(R),RDMS,CT CTDI: DLP: Trnscb Date/Time: 08/16/2019 (2037) [email or web address] Orig Print D/T: S: 08/16/2019 (2040) PAGE 2 Signed Report - XR CHEST 2 K5062-61-22 20:03:00 Name: COLLEEN JOHNSON [facility] : 1985 Age/S:33 /F [address] [facility] Unit#:[id number] Loc: [place] [address] Phys: Kaylee Whiting MD Dis Date: PHONE #: [phone] Status: REG ER FAX #: [phone] Exam Date: 08/16/2019 Re ason: SOB EXAMS: CPT CODE: [id number] XR CHEST 2 V 37129 REASON FOR EXAM: SOB Exam Order Date: [...] IMPRESSION : No acute cardiopulmonary process. Location: [facility] at 2002 Reported and signed by: Carlton Alcaraz MD CC: Cailin Whiting MD Technologist: EDY LUNA RT(R),R DMS,CT Trnscrpt Data: 08/16/2019 (2002) CarineRR31 Orig Print D/T: S: 08/16/2019 (2006) PAGE 1 Signed Report [id number] 18:37:00* Test Item Value Reference Range Interpretation Comments D-DIMER (test code = DDIMER) < 100 ng/ml < 600 COMPREHENSIVE METABOLIC LLNTY8343-99-19 18:35:00* Test Item Value Reference Range Interpretation [...] code = ALKP) 74 U/L 38-126 N OVUBPSYE-G8368-98-31 18:35:00* Test Item Value Reference Range Interpretation Comments TROPONIN-I (test code = TROPI) <0.015 ng/mL 0.00-0.056 N COMPREHENSIVE METABOLIC LKSZY8945-63-45 18:22:00* Test Item Value Reference Range Interpretation [...] TOTAL (test code = ALKP) IUnit/L 45-117 PGTGRAXZ-O0338-92-31 18:22:00* Test Item Value Reference Range Interpretation Comments TROPONIN-I (test code = TROPI) ng/mL 0-0.045 CBC W/AUTO BPWT3924-42-86 18:15:00* Test Item Value Reference Range Interpretation [...] MDIFF) NO ANKLE 3 VIEW RT - FQBG2998-87-00 19:27:00 [place] [address] Patient Name: COLLEEN JOHNSON MR #: [id number] : 1985 Age/Sex: 33/F Req #: [id number] Adm Physician: Ordered by: GLYNN BHATT MD Report #: [id number] Location: [facility] Room/Bed: Procedure: [id number] HOPD/ANKLE 3 VIEW RT - HOPD Exam [...] on 07/17 COPY TO: GLYNN BHATT MD SHCWXVEUVGEF4553-56-44 07:19:0010.1[facility] SkwmfpfCOSVMXDQHGUE0035-62-57 07:19:00* Test Item Value Reference Range Interpretation Comments B/C Ratio (test code = B/C Ratio) 20 1 6-25 [facility] UxmoklvXFZVYNBOUWKH7834-29-70 07:19:004.3[facility] HermannELECTROLYTES 2019-05-25 07:19:00* Test Item Value Reference Range Interpretation Comments A/G Ratio (test code = A/G Ratio) 0.9 1 0.7-1.6 [facility] TjcbwdfGOKEJJZCDDIJ3164-48-57 07:19:0094[facility] HermannELECTROLYTES 2019-05-25 07:19:0013[facility] OcukqwsHBSQSQJMYNQB4982-17-83 07:19:000.66[facility] VoogpaoIOGUXLKJJUYQ7604-17-45 07:19:60546Weremmly NkopmnjQGZENAGPMAQB0160-05-86 07:19:004.1[facility] XubefuqOFEOWWKGGRWL3855-94-96 07:19:99445Dklzgvsl [place] OWDNGJXRIWXX6313-64-11 07:19:0024[facility] PzbhfcoMWHNEUNVUCUG3667-26-05 07:19:00 9.3[facility] ZaqhytxDMVUYTFYYONW7831-01-15 07:19:008.2[facility] [place] JWNCOPUKVKGP4147-14-30 07:19:003.9[facility] YmfbxvuYTNFEVKZBYBR9768-96-59 07:19:0025[facility] FdhlhkhHYUXYRXVPFYH9768-66-35 07:19:0014[facility] [place] OQOBATRNQLID3088-21-30 07:19:0098[facility] VafflueFVDDFJTNPRLT7108-57-80 07:19:00 0.4[facility] GmhdvfzLYPGJKPYTNIL2162-60-75 07:19:91211Awmvtjzg [place] NXYOUCTNGXUSL0312-19-70 07:19:00Negative *NA*(05/25/19 2:19 AM)[facility] WOSARGVWMD4357-45-50 07:19:0014.7[facility] SucxuiaNBGQOLNBUV1145-79-04 07:19:00 4.90[facility] VoqhyoxMJUODNJFGD1974-82-14 07:19:0014.1[facility] HermannHEMATOLOGY 2019-05-25 07:19:0043.2[facility] ZazmgnaCJHNPRVDLS6953-44-39 07:19:0088.2[facility] OwzunlqRIOXAYYWIX9719-18-46 07:19:00* Test Item Value Reference Range Interpretation Comments MCH (test code = MCH) 28.8 pg 27.0-31.0 [facility] OqivfeqZSECEMSETV3020-02-34 07:19:0032.7[facility] HermannHEMATOLOGY 2019-05-25 07:19:0013.2[facility] OwxrkkgOKRCNVUCSS6029-45-54 07:19:70175Wktfucxs JjjtfuvAGYPNCJNGA3655-66-30 07:19:008.5[facility] JlmgcjqRMVYMSWULS2575-98-47 07:19:0066.4[facility] SjwkqwrPXXLUMDYMM0790-45-57 07:19:0021.1[facility] [place] HOPGNAROZF0480-94-86 07:19:007.4[facility] LjpbewhJZTXSKMGDW1775-40-08 07:19:004.1 [facility] JxpifadSTFOSYHPIG0299-90-60 07:19:001.0[facility] HermannHEMATOLOGY 2019-05-25 07:19:009.8[facility] LpflijlJDPTJWMYVZ3896-11-55 07:19:003.1[facility] YmtkehiWZTRJVEVYI0619-72-39 07:19:001.1[facility] RbeexwgKFNYHYMMKU1564-32-95 07:19:000.6[facility] EsrfkbuTTGEBZSQYX8632-37-72 07:19:000.1[facility] HermannCHEM BPPKP1154-94-80 22:11:94802Yubxzvot HermannCHEM KHAYH8838-94-76 22:11:0010 [facility]annCHEM MPXIJ6537-69-16 22:11:000.78[facility] HermannCHEM PANEL 2019-04-03 22:11:31785Szqzrnmv HermannCHEM QAIYJ8034-71-23 22:11:003.9[facility]annCHEM TIBKJ4535-44-44 22:11:40043Plexfxnb HermannCHEM URXCW2596-93-22 22:11:0025[facility]annCHEM JEKOX6287-61-76 22:11:008.8[facility]annCHEM ZNTLY3078-50-50 22:11:29449Ibjwnijm HermannCHEM KCWJW6572-86-38 22:11:0010.9 [facility] PhhnjslHCBBJMYRPUIMW3436-84-77 22:11:00Negative *NA*(04/03/19 5:11 PM) [facility] NczsotkGHUGMUYHFZ5243-00-18 22:11:0011.5[facility] HermannHEMATOLOGY 2019-04-03 22:11:004.85[facility] OrlfllyBXLPJLLTJI3912-52-73 22:11:0014.2[facility] UsdhyvpCYPEBSKCBR7438-71-89 22:11:0043.0[facility] FbryrmeQIUBOZIOUU3005-27-98 22:11:0088.7[facility] GdjqteeVUFWDUTMAQ6627-89-27 22:11:00* Test Item Value Reference Range Interpretation Comments MCH (test code = MCH) 29.2 pg 27.0-31.0 [facility] YuibneyNVUIUXBZDZ4928-53-10 22:11:0033.0[facility] HermannHEMATOLOGY 2019-04-03 22:11:0013.3[facility] OowdasuUNZYGUOUSZ4840-32-55 22:11:48518Djrrhuit SgpykbqZKGRTUULWE9985-38-14 22:11:008.4[facility] HhomfwyDZHGYLXAPA2436-04-56 22:11:0066.0[facility] IymfluoGAYQWWFDTW7265-48-39 22:11:0021.2[facility] BHGIGSDQWU6343-61-81 22:11:008.2[facility] PftmrzfXUOZCHDHHP8992-63-41 22:11:003.6 [facility] BwkpcebSFZONBHEUY1359-42-20 22:11:001.0[facility] HermannHEMATOLOGY 2019-04-03 22:11:007.6[facility] EvakolgHCZTWCBGSD7764-90-47 22:11:002.4[facility] BulmdnhWZKGHPSEUA8681-44-30 22:11:000.9[facility] KrjqjgeGCCBNYCDOK2019-53-56 22:11:000.4[facility] RjfcuhcRMAIFDIWXU3597-01-21 22:11:000.1[facility] [place] AQFCXMZESF6962-92-44 08:46:0011.2[facility] AsxjpsyWBOKONJNNJ9033-49-41 08:46:00 13.7[facility] RdmldftGMRNTTFBXW7137-77-52 08:46:008.9[facility] HermannHEMATOLOGY 2019-03-24 08:46:004.66[facility] ScxszgzBGDIIPUCED3977-84-77 08:46:12317Gtkaaobq XpjdslsXXYBIBBCTH6507-45-34 08:46:00* Test Item Value Reference Range Interpretation Comments MCH (test code = MCH) 29.5 pg 27.0-31.0 [facility] FqmwfawTQSHQHUIBR3391-31-57 08:46:0033.8[facility] HermannHEMATOLOGY 2019-03-24 08:46:0013.7[facility] DpweertKBRJXBIHBB2924-62-43 08:46:0040.6[facility] WylzmtoPRXWSCZPWO7008-22-27 08:46:0087.1[facility] BrcngzeVYUKOHRRWD9245-20-78 08:46:003.3[facility] XdyvwzqJMQRVUARGC4774-22-01 08:46:007.6[facility] BAYOPJJCDN4310-42-43 08:46:000.1[facility] GkjqtvzORVHQSGATM7665-66-35 08:46:000.4 [facility] PenyohfJKZLODPSMO7305-04-04 08:46:0065.7[facility]annHEMATOLOGY 2019-03-24 08:46:0022.6[facility] VtpmukeAJLNUZUBPW2751-93-43 08:46:007.4[facility] XgzyxunYEWTKCSDLF3289-42-80 08:46:000.8[facility] HswqmpoTDDOVMAJPK5403-27-96 08:46:000.8[facility] MizlwgxLRLWNJNQXS8930-33-24 08:46:002.5[facility] HermannCHEM RPHPH7204-81-27 03:31:00<0.05[facility]annCHEM HJHLP0570-63-30 22:26:001.7 [facility]annCHEM MBBEB5744-95-03 17:57:001.7[facility] HermannELECTROLYTES 2019-03-23 17:57:0011.5[facility] HfznnazYOAVSRPCEJYQ2483-63-88 17:57:0099[facility] SlhviswRLHOUGUESXYV0018-11-02 17:57:10650Fcflmbkv AbkekzcWHREMBBGGGFK5404-63-25 17:57:008.8[facility] UgbgursWGBNOCUYWTJT6566-81-77 17:57:0025[facility] OHTBLSSJDIHW9886-31-32 17:57:18792Gtjxlqng DlvlwziHTELUIFUBESK0244-44-78 17:57:003.5[facility] MqslmbxSHJIJKCHYLFU7827-07-98 17:57:50241Kbeoxjoq [facility] PGNGALMZIRWR7985-56-68 17:57:000.79[facility] FmksofuGMXSOHATWOEP1518-09-50 17:57:0010[facility] XkvakeqQLSQGCVTIF6205-37-52 17:57:000.7[facility] PIBKJQZSGX7416-06-79 17:57:000.3[facility] KaoxszeNAHHANEBCB6065-78-47 17:57:001.0 [facility] UlutrlwCWDUOLTCCU2189-67-34 17:57:003.1[facility]annHEMATOLOGY 2019-03-23 17:57:000.1[facility] BpdaoytJKMAKULFHH9353-56-13 17:57:008.0[facility] YvhjxqxZRAQMNKFKH2866-34-46 17:57:002.1[facility] YwzoxsoCNMSXQEXIP2560-39-97 17:57:0018.5[facility] RhzbbujKQKGBQVCAO2981-46-45 17:57:006.6[facility] XVVSIGXKEI4744-84-89 17:57:0070.8[facility] UmawyqvVVEPHXPRBO0241-54-44 17:57:00 271[facility] TffzzlzMAVIJQSHEX3137-76-42 17:57:008.0[facility]annHEMATOLOGY 2019-03-23 17:57:0013.6[facility] UuacyuvEOYJOTAZXO5531-82-36 17:57:00* Test Item Value Reference Range Interpretation Comments MCH (test code = MCH) 29.3 pg 27.0-31.0 [facility] BkqgqydYBHEZQAULK5487-80-06 17:57:0033.3[facility]annHEMATOLOGY 2019-03-23 17:57:0088.1[facility] NqezuihOUBTMCZUWR4301-85-05 17:57:0014.2[facility] SiozehfWZVLHEGGAJ3753-09-53 17:57:0042.6[facility] AlqtzmoTEPITRIOKK9214-51-82 17:57:004.84[facility] NnjnzmaMCQPJRNMUB7599-59-46 17:57:0011.2[facility] CHEM DSYSZ8488-58-41 08:05:005.1[facility]annCHEM SRJNX1803-71-24 08:05:001.7 [facility] NajivtlXFMSTPWJZSBA5716-90-57 08:05:0010.8[facility] HermannELECTROLYTES 2019-03-07 08:05:89643Qkflrnuy HyyymuzGLHAJTBKQKCJ6599-13-12 08:05:008.8[facility] KqndmpyAKHRWJAGTUMO1232-68-99 08:05:0029[facility] FybjcjmTQCJYHWIHULG0453-78-26 08:05:55187Qojcjdrb NoryzafTWKTRGJDMQWA7004-56-17 08:05:003.8[facility] BYOCIWUZKHPV6056-49-30 08:05:0011[facility] AmvnvueKBYRMRJPVVRK5273-77-85 08:05:00 0.78[facility] BmpmtmtFHUOYVREULAS3103-28-19 08:05:14626Sjtrhwea [place] TUERKPGNAWJW6088-33-42 08:05:81311Gcvyruxy VuaffupJTCQTNMHFR3377-14-68 08:05:00 256[facility] BqzyeyvQUHGGGXVCX2764-41-88 08:05:008.9[facility]annHEMATOLOGY 2019-03-07 08:05:0013.6[facility] EpmosdlLGDIBCVVQE9813-49-04 08:05:0033.8[facility] ZmuxuvbYMOZDSPNON3120-07-61 08:05:0086.3[facility] JgsqeyfRMQDDBFYMQ4680-21-98 08:05:00* Test Item Value Reference Range Interpretation Comments MCH (test code = MCH) 29.2 pg 27.0-31.0 [facility] KoqhxydTKFLYIZCQK7660-89-44 08:05:0013.5[facility]annHEMATOLOGY 2019-03-07 08:05:004.63[facility] UsdgxwqWOZOKOKMCF9040-28-19 08:05:0039.9[facility] HinwyqtJRDJAIPPYW4543-94-76 08:05:0010.0[facility] QzoewusMXSCWCRUUT1132-09-10 08:05:000.1[facility] ZssvykhYMADNBQQDR7660-99-31 08:05:000.4[facility] LKEPJMSIDJ5807-26-78 08:05:004.4[facility] LbrqbhuNDAVKNRMSE1326-15-18 08:05:002.7 [facility] WkwdadyPYVTMBBXIU4756-72-54 08:05:000.7[facility]annHEMATOLOGY 2019-03-07 08:05:000.7[facility] TipuqehWBDDSQSTQU4931-30-40 08:05:006.1[facility] OckcqjvBOMMEHVCFZ3492-34-34 08:05:006.7[facility] GqmvuxyOGBCOXHLBD4889-00-57 08:05:0026.7[facility] AdwmzsgBCDBMIYRVI3457-13-42 08:05:0061.5[facility] CHEM DAOLA3875-23-55 10:30:004.2[facility] HermannCHEM DMFTT7408-09-07 10:30:001.8 [facility] UwdbsotOIKFTCLNEJNF9244-26-44 10:30:004.0[facility] HermannELECTROLYTES 2019-03-06 10:30:81263Thaitzop WdwropyQDVLAKGMLULW4004-78-35 10:30:0026[facility] GeoaumoPSHQEWRSBHIZ5956-66-75 10:30:59117Nbmxtpft WgqujzaWLQRVBMFDDCV5800-54-87 10:30:000.71[facility] ByhoerdMBSIWECHJVKX6980-88-03 10:30:008.6[facility] UUSWQPIUYBFT3638-16-20 10:30:77718Oenphsis MunurloFLGPTRIKCPTY7525-10-78 10:30:85160Ttgzzzgi HoknvrfLVRZCCBPQNIX8958-07-76 10:30:0011[facility] EWTSCIGRZPZB7943-35-18 10:30:0011.0[facility] PdztkpnKHFAFTXVML2028-87-39 10:30:00 4.7[facility] JxaryskESQUEGEUXG8095-15-26 10:30:0027.0[facility]annHEMATOLOGY 2019-03-06 10:30:007.3[facility] YmetebkUJDRYFAXDX0037-02-30 10:30:0059.8[facility] ImqmacgFEHMTYOSRR2098-68-60 10:30:000.4[facility] SzaaxenVITUIPEUWJ7488-76-34 10:30:002.3[facility] JmbfrvrGUKRHXOJXI4541-77-23 10:30:000.6[facility] PLMBBBRRNK0021-63-13 10:30:001.2[facility] HaiunfrPKDKAWUMMR0823-85-96 10:30:005.1 [facility] PxqwifoHHDQZTVEVG8843-61-53 10:30:000.1[facility]annHEMATOLOGY 2019-03-06 10:30:0037.4[facility] TqjvelrWRGPJWGEEW7406-03-10 10:30:008.5[facility] GespbosTPPAVKHAIQ3813-61-73 10:30:004.32[facility] RadyfvbRYOJVLCVFX3577-65-26 10:30:0012.7[facility] LzpahjcJJOUGZTAZP6307-93-10 10:30:0086.6[facility] XQPYKALHMO1201-87-76 10:30:008.7[facility] BkojbobAACOYRNEJO9687-34-20 10:30:44958 [facility] AbaogvaPWPYKFQZND9758-47-93 10:30:00* Test Item Value Reference Range Interpretation Comments MCH (test code = MCH) 29.3 pg 27.0-31.0 [facility] EgrxxzbNYCAFXRVLR4258-72-54 10:30:0033.9[facility] HermannHEMATOLOGY 2019-03-06 10:30:0013.7[facility] PcysdrgQPCVWDEZSP9195-18-46 16:55:0017.8[facility] KiwibauPILSVTFRWL2877-27-25 16:55:00* Test Item Value Reference Range Interpretation Comments Morenita Stoery TND (test code = Vanco Tr TND) 1300 1 [facility]annCHEM FOLCD8922-59-47 08:21:004.6[facility]annCHEM PANEL 2019-03-04 08:21:001.7[facility] ZpchfunZQCYRFPGWLKB9300-19-36 08:21:008.6[facility] JhcuefbKQENJONUNXWC8883-71-28 08:21:77804Wuqxrhid WrtddouVSZCYBQTUHBL8430-53-48 08:21:000.62[facility] OreivxuUGPHXEGPPSWN3003-23-94 08:21:003.6[facility] MOFLVQHEAWHY3190-08-88 08:21:11159Shhqlmcb BhstepiOAAAMMFRCBIN6857-43-66 08:21:83494Ibohqmfp JqdbvvoZYIZRHSEKFKP2312-47-88 08:21:0028[facility] ZXVIRANVYSOH9871-80-99 08:21:008.2[facility] ThfacruMKKSBFKQNRJJ0336-75-02 08:21:007[facility] JfgwhbeTIHMATJDZKTL3214-89-57 08:21:40585Ftdyogae [facility] ATAMGDBCQN3686-39-82 08:21:0012.5[facility] WzqxcxyXUKPAITJXR5401-14-80 08:21:00* Test Item Value Reference Range Interpretation Comments MCH (test code = MCH) 29.7 pg 27.0-31.0 [facility] IuqiewpELSSCZHQDK2521-12-24 08:21:0086.9[facility]annHEMATOLOGY 2019-03-04 08:21:0036.5[facility] IfbtsytDXHGNYRDHR3203-85-14 08:21:30109Ddayzasj TxjpbplFPZWQKUBFJ2020-10-15 08:21:0013.9[facility] EltlhpwRDFIINAQTK0035-85-44 08:21:008.9[facility] AzarrwfGLXXZUPCSX5624-21-08 08:21:009.0[facility] GEQIDIKNXL3693-68-35 08:21:0034.2[facility] NrfdftpNVVXCZTMCJ9658-51-21 08:21:00 4.20[facility] JjfrqilRXZXJZYTCC6894-99-09 08:21:005.2[facility] HermannHEMATOLOGY 2019-03-04 08:21:002.6[facility] QiwfucsSLVKIROIVZ4299-31-02 08:21:000.8[facility] KinkykeNTONTFEJMW8028-79-76 08:21:000.4[facility] TzuagmsZEWHHWANTG7628-81-08 08:21:0057.6[facility] MsuihevYXEPPUAAKD0104-26-26 08:21:0028.4[facility] XHCEKFSGNJ8042-91-08 08:21:008.8[facility] TjmbvdzWANOUTDMXB5973-22-08 08:21:004.1 [facility] YkoeoywCDYBDBCTFS5602-71-04 08:21:001.1[facility]annHEMATOLOGY 2019-03-04 08:21:000.1[facility] HermannCIPROFLOXACIN:SUSC:PT:ISOLATE:ORDQN:MONISHA 2019-03-02 22:15:00Staphylococcus aureusMemorial CjesybiTDWXLWFBPO1484-39-52 16:54:00* Test Item Value Reference Range Interpretation Comments Morenita Tr TND (test code = Vanco Tr TND) 1300 1 [facility] EekmyohBLWVEKNMND6762-45-78 16:54:0014.7[facility]annURINE AND STOOL 2019-03-01 21:13:00Negative (03/01/19 4:13 PM)[facility] 2019-03-01 21:13:00Negative (03/01/19 4:13 PM)[facility] 2019-03-01 21:13:0087[facility] RHWNC9098-95-93 21:13:003[facility] ETZFK4867-86-22 21:13:00* Test Item Value Reference Range Interpretation Comments UA pH (test code = UA pH) 7.0 1 5.0-8.0 [facility] DYZXZ0034-45-42 21:13:00Large *ABN*(03/01/19 4:13 PM) [facility] KSJIA1861-29-68 21:13:00Negative *NA*(03/01/19 4:13 PM) [facility] BMGEZ1216-22-11 21:13:00* Test Item Value Reference Range Interpretation Comments UA Spec Grav (test code = UA Spec Grav) 1.010 1 [facility] XDBPB1501-18-79 21:13:00Slight *ABN*(03/01/19 4:13 PM) [facility] WNRNP2161-26-08 21:13:00Yellow *NA*(03/01/19 4:13 PM) [facility]annCHEM ZVNVW7765-41-17 08:18:003.4[facility] HermannCHEM PANEL 2019-03-01 08:18:007.2[facility]annCHEM YCWXD5360-88-87 08:18:0086[facility]annCHEM CWDFY2963-52-02 08:18:000.5[facility]annCHEM VPBMV4248-89-42 08:18:0012[facility]annCHEM RJEEY8976-54-40 08:18:0020[facility]annCHEM JZOYP2915-98-84 08:18:00* Test Item Value Reference Range Interpretation Comments A/G Ratio (test code = A/G Ratio) 0.9 1 0.7-1.6 [facility] REWAN4684-58-34 08:18:00* Test Item Value Reference Range Interpretation Comments B/C Ratio (test code = B/C Ratio) 16 1 6-25 [facility] VEGWF9369-20-10 08:18:003.8[facility]annHEMATOLOGY 2019-03-01 08:18:00* Test Item Value Reference Range Interpretation Comments INR (test code = INR) 1.14 1 0.85-1.17 [facility]anoAhkkkqpJHABSNXUAH1491-75-81 08:18:00* Test Item Value Reference Range Interpretation Comments PTT (test code = PTT) 38.3 s 22.9-35.8 [facility]anoFyuvemrFOVOEGZNXZ3017-24-09 08:18:00* Test Item Value Reference Range Interpretation Comments PT (test code = PT) 14.4 s 12.0-14.7 [facility]2019-07-16 04:02:001.4[facility] HermannENDOCRINOLOGY 2019-03-01 04:02:00<1[facility] FngvrstJKWRHWOEYD6696-67-45 00:33:0010.8[facility] VbcypxvJGSHKHWBOF0473-07-19 00:33:00* Test Item Value Reference Range Interpretation Comments Morenita Storey TND (test code = Vanco Tr TND) 2000 1 [facility]annBA[facility] - IRSUFXSQ2060-72-40 16:23:00Negative (01/30/19 11:23 AM)[facility] ZdxvalrHGSTSPPTLQ2533-07-29 18:29:0018.9[facility] HermannTOXICOLOGY 2019-01-29 18:29:00* Test Item Value Reference Range Interpretation Comments Morenita Storey TND (test code = Vanco Tr TND) 1330 1 [facility]anoZnhcbbnSSXVZPVLOY9900-08-32 08:44:00* Test Item Value Reference Range Interpretation Comments MCH (test code = MCH) 28.5 pg 27.0-31.0 [facility]anoJmttvmlERIAOLPQAC9790-82-39 08:44:0087.8[facility]annHEMATOLOGY 2019-01-29 08:44:0038.5[facility] WafiozxMTYBKORZCD3839-86-32 08:44:0012.5[facility] WpqcnfsQONMGUIRVI4440-54-34 08:44:004.38[facility] ImsznugCPCGGBNOSG3257-42-13 08:44:19957Rxmswswf LlruohlZPMRUIVBOG2623-25-42 08:44:0032.5[facility] RMSFTQUXFB8797-63-61 08:44:008.5[facility] BfesariYCJYAIYSME3269-39-17 08:44:00 13.5[facility] DzsmuohJOAIIRIDDA3523-45-21 08:44:008.1[facility] HermannTOXICOLOGY 2019-01-28 17:25:0018.3[facility] SwgldghLLZGRCUFPZ0349-53-64 17:25:00* Test Item Value Reference Range Interpretation Comments Morenita WADE (test code = Morenita WADE) 1230 1 [facility]annCEFEPIME:SUSC:PT:ISOLATE:ORDQN:XVD5654-30-48 00:35:00 Staphylococcus aureusMemorial HermannCEFEPIME:SUSC:PT:ISOLATE:ORDQN:MONISHA 2019-01-28 00:35:00Klebsiella pneumoniae ssp pneumoniaeMem[facility] CEFEPIME:SUSC:PT:ISOLATE:ORDQN:LIB9391-00-07 00:35:00Proteus mirabilisMemorial HermannURINE AND OXZGB3998-51-58 11:31:00Negative (01/27/19 6:31 AM)[facility] IWHTA8996-12-54 11:31:002[facility]UR[facility] STOOL 2019-01-27 11:31:005[facility]UR[facility] AND VSUOW5254-85-24 11:31:00* Test Item Value Reference Range Interpretation Comments UA pH (test code = UA pH) 6.0 1 5.0-8.0 [facility] FWECN8968-24-14 11:31:00Yellow *NA*(01/27/19 6:31 AM) [facility] KWWPY1313-12-82 11:31:00* Test Item Value Reference Range Interpretation Comments UA Spec Grav (test code = UA Spec Grav) 1.028 1 [facility] YCHXB1561-82-48 11:31:00Slight *ABN*(01/27/19 6:31 AM) [facility] MXTHS9541-02-89 11:31:00Negative (01/27/19 6:31 AM) [facility] KBBEL9394-50-67 11:31:00Negative *NA*(01/27/19 6:31 AM) [facility] EQOFE8576-81-44 11:31:00Negative (01/27/19 6:31 AM) [facility] DQNT5052-31-41 11:31:00Negative (01/27/19 6:31 AM)[facility]annCHEM NMXFV1777-29-28 08:45:001.5[facility] HermannCHEM AIBYI7355-54-10 08:08:00* Test Item Value Reference Range Interpretation Comments B/C Ratio (test code = B/C Ratio) 19 1 6-25 [facility]annCHEM OYFIH6987-45-20 08:08:003.9[facility] HermannCHEM PANEL 2019-01-27 08:08:00* Test Item Value Reference Range Interpretation Comments A/G Ratio (test code = A/G Ratio) 0.9 1 0.7-1.6 [facility]annCHEM DXRAO0570-72-99 08:08:0013.9[facility] HermannCHEM PANEL 2019-01-27 08:08:89314Lflpvkdq HermannCHEM AAVBV3139-23-27 08:08:0018[facility]annCHEM VDBWA6696-89-31 08:08:0092[facility]annCHEM HJZGJ0232-51-26 08:08:003.9[facility]annCHEM ZLIND5624-47-95 08:08:000.3[facility]annCHEM PKYOO6974-50-51 08:08:003.6[facility]annCHEM CDQSE3916-36-93 08:08:0024 [facility]annCHEM WPTWS8025-04-56 08:08:007.5[facility] HermannCHEM PANEL 2019-01-27 08:08:84264Aivzceew HermannCHEM HQOGH9039-43-61 08:08:0024[facility] HermannCHEM LZULC8246-58-26 08:08:35392Hvwcbetl HermannCHEM LPZFD9323-01-81 08:08:008.5[facility]annCHEM DBHSN8561-67-66 08:08:0014[facility]annCHEM VDRAS4811-28-22 08:08:000.75[facility]annCHEM OYDLB2302-86-46 08:08:0091 [facility] HxoomrxCNDBMNCREZ8000-86-19 08:08:006.5[facility]annHEMATOLOGY 2019-01-27 08:08:008.1[facility] GrpkheyZZNPFZISQK6579-97-62 08:08:000.9[facility] IyrxwlnJMWUVHNQXN2693-74-28 08:08:002.9[facility] ZabbcxzHPVCBFXYQS8010-53-13 08:08:007.4[facility] HepfdbwEJQXCIAZZM4648-53-06 08:08:001.0[facility] XUBWDXGGOC6046-18-79 08:08:000.8[facility] AghfgxgDRWFVJYJDJ1973-79-00 08:08:000.1 [facility] JmvtqniDIZXVPOULJ4356-68-40 08:08:0023.6[facility]annHEMATOLOGY 2019-01-27 08:08:0060.9[facility] BzosllnBIAEXHMQCM5051-90-25 08:08:0012.2[facility] GqlshdfUVWYCJFHDM0808-28-76 08:08:0032.4[facility] ClvltfjTKNJRJFJAO2260-44-70 08:08:0013.7[facility] KrvreriMLAHEESHPT8614-42-25 08:08:00* Test Item Value Reference Range Interpretation Comments MCH (test code = MCH) 28.5 pg 27.0-31.0 [facility] NandjgbAAANIUEYFS5785-83-70 08:08:0088.2[facility] HermannHEMATOLOGY 2019-01-27 08:08:0041.4[facility] WimmzhvXYTNDXXHYM2767-39-96 08:08:004.69[facility] IenahtyMOKFRMMUKS6035-68-00 08:08:0013.4[facility] WusqnqeGQYPGKWGJG5083-09-48 08:08:008.8[facility] TlkizchZKEJQVZGXJ6297-75-32 08:08:05750Esnaswbq HermannCHEM RCOLD9635-18-12 01:46:001.0[facility] IecrqxpUKFIKGPYRWGV2554-20-58 01:46:42446 [facility] ZfvuxnkVUDONHEYOLLQ4089-58-02 01:46:001.04[facility] HermannELECTROLYTES 2018-12-13 01:46:0071[facility] RuahamtQNVBWOUDJXCG5437-25-97 01:46:0088[facility] LafnzlvKBOQNDZHZNOQ3258-17-08 01:46:003.4[facility] RnikmsvUZITLKROXDEK6231-95-93 01:46:0015[facility] HunryyrWCZCEZMIWSIX2369-77-99 01:46:0079[facility] AMWYDFZSSOZB7572-24-95 01:46:003.2[facility] FdlckakDKBOLCFDWAZE5937-93-59 01:46:0015[facility] YpuwulrEROBKCURTNGJ3201-70-61 01:46:000.2[facility] OSZPPWCFYKWH6398-19-37 01:46:0024[facility] CvejlizKVVPCNPZQBWN2478-85-16 01:46:00 105[facility] SeozhkkXTPJDAJQOUYX2699-81-57 01:46:0029[facility] HermannELECTROLYTES 2018-12-13 01:46:008.8[facility] XufphjyPPOBUFFHZCHC8846-22-08 01:46:007.7[facility] MelbnvwITHWYVMXLQMB8180-46-73 01:46:00* Test Item Value Reference Range Interpretation Comments B/C Ratio (test code = B/C Ratio) 14 1 6-25 [facility] JtucujzTOLVCCAFMGRY2135-36-77 01:46:009.4[facility] HermannELECTROLYTES 2018-12-13 01:46:00* Test Item Value Reference Range Interpretation Comments A/G Ratio (test code = A/G Ratio) 0.7 1 0.7-1.6 [facility] EupyazyDVRIMPEJLDDQ7026-48-56 01:46:004.5[facility]annHEMATOLOGY 2018-12-13 01:46:000.1[facility] BpgosslYBZDEBATLS7223-72-99 01:46:002.6[facility] JyitcwtJSCDXGDSJH4319-69-03 01:46:000.8[facility] UfzdczgTZJCRUDZKU6174-09-74 01:46:000.5[facility] IsrcnvyWNGQMMXILR7190-32-37 01:46:004.0[facility] XZYRIDBSVI2196-65-36 01:46:007.1[facility] OpatjegTKXTLMHYYH7736-72-75 01:46:00 22.7[facility] WxhmjpgCKPBAMVREZ1102-79-51 01:46:001.2[facility] HermannHEMATOLOGY 2018-12-13 01:46:007.3[facility] OlsrbhqJFLZMKLXMG9711-49-42 01:46:0065.0[facility] CpuxjpcXKDXDPGTNN1369-02-43 01:46:0013.3[facility] FfindmwOJCPMMDQPA8662-07-87 01:46:0033.7[facility] PtrcwpcBQESBYQPUJ2894-63-51 01:46:90548Ztnulhfc Charles DPEAGMEFYR4432-14-13 01:46:007.7[facility] XxqwisrKLZVTSWSWN0468-64-62 01:46:00 4.45[facility] ApgbetbSZMYCJPAGX5803-12-34 01:46:00* Test Item Value Reference Range Interpretation Comments MCH (test code = MCH) 28.9 pg 27.0-31.0 [facility] FdiqwrrTLRPFRCPZI8892-66-00 01:46:0085.7[facility] HermannHEMATOLOGY 2018-12-13 01:46:0011.3[facility] XgcgdtaDSVUGKRCAL7522-39-97 01:46:0012.9[facility] DanjhioDXLHPTVXVH1182-99-76 01:46:0038.1[facility] PgltsnpPMGCZDUNFV7802-35-73 01:04:00* Test Item Value Reference Range Interpretation Comments Morenita Storey TND (test code = Vanco Tr TND) 2100 1 [facility] WthdwraQQYALZRNFI0203-55-85 01:04:0016.7[facility] HermannCHEM PANEL 2018-12-08 08:20:0093[facility] HermannCHEM EEJZA8078-68-85 08:20:36084Kfcjkrqb HermannCHEM HLDMG6726-69-72 08:20:000.83[facility] HermannCHEM ZGRAN5430-97-48 08:20:006[facility] HermannCHEM MTFXF3731-34-90 08:20:0098[facility] HermannCHEM NTUON9779-09-77 08:20:0029[facility] HermannCHEM GPGCE6527-61-30 08:20:76429 [facility]annCHEM BNDKA5008-53-42 08:20:003.8[facility] HermannCHEM PANEL 2018-12-08 08:20:008.8[facility] HermannCHEM SKMEJ6856-38-28 08:20:0011.8[facility] KtnumuyTPMPHBYOMP3457-79-72 08:20:008.5[facility] KyndrcoAETBSDYCQW3091-42-84 08:20:0061.1[facility] FlplqogFBUANXESNC6148-15-62 08:20:005.9[facility] WRQULEVFMB2452-12-91 08:20:0023.5[facility] YpdlzkjJVLROMBYME1382-89-98 08:20:00 0.1[facility] RsevbcqIEFTWWKBVG2283-97-46 08:20:000.6[facility]annHEMATOLOGY 2018-12-08 08:20:000.8[facility] KymrbffZRIQJKOJXS9487-25-19 08:20:002.3[facility] GtqbkygVSXUHLRBUS2920-66-07 08:20:001.0[facility] VenlkcmKVHOMZFDGZ1925-64-07 08:20:006.0[facility] IueufwzIMOQMMBUBK3452-35-60 08:20:007.8[facility] IZKOFDIEEE7021-27-80 08:20:28596Ygmrryhx TtiloqrAZSJZMBBHJ5618-15-99 08:20:00 13.1[facility] DninmbsYMCWWBMMNR5106-83-44 08:20:0033.6[facility]annHEMATOLOGY 2018-12-08 08:20:0035.3[facility] SebpcquBSNWUMXJZG8722-15-83 08:20:0086.2[facility] ZufpvklBWUOTKUHBI4179-03-33 08:20:009.7[facility] NxmjbcfXBKWGHGOEF1150-48-47 08:20:00* Test Item Value Reference Range Interpretation Comments MCH (test code = MCH) 28.9 pg 27.0-31.0 [facility] XblcpceCIJOKCNRXK6721-57-73 08:20:004.10[facility]annHEMATOLOGY 2018-12-08 08:20:0011.9[facility] BuxwieeRZOHDOOTRX1883-03-99 17:03:0015.3[facility] HutnawqGNGLDSEGAOJK2797-67-87 08:16:009.8[facility] XbtkdqrONYTUHUGPWED4210-41-97 08:16:84297Edcyyukb HubfgzfAVDCTQMOBFYY0013-34-02 08:16:14446Arwpkdos [facility] KFTSQSABXWBO6308-91-25 08:16:003.8[facility] BripqgxQOXBIZQHZCWI1579-22-93 08:16:008.1[facility] AzyfxpnHUPUWBMFMTYG6669-57-86 08:16:0031[facility] IIEIMCIUCVZM4984-99-69 08:16:79479Fdhmgfjq FmxckciCHWOVWBWPYBG4044-31-78 08:16:000.69[facility] GhjhzfdZPJJGTKGLDFA6483-16-72 08:16:006[facility] SVHRJPJOPOYX4932-67-61 08:16:48918Vdemayef IxbikuiZAYLEOBCPM2625-18-28 08:16:00 87.1[facility] UgflgkhPSSFDRVQZO1860-50-50 08:16:0034.8[facility]annHEMATOLOGY 2018-12-07 08:16:00* Test Item Value Reference Range Interpretation Comments MCH (test code = MCH) 28.8 pg 27.0-31.0 [facility] UaklbejHCLXFQZVBK8875-61-45 08:16:0011.5[facility]annHEMATOLOGY 2018-12-07 08:16:007.7[facility] PaubblxOFUSWXGGSI5295-13-36 08:16:0013.3[facility] KntemttYMYUCGGSAF0514-26-52 08:16:0033.1[facility] JjgdsctQPCHCSNPEK8115-10-14 08:16:23699Zjcsflhv AosolmdNSHPTODHDH4389-95-26 08:16:004.00[facility] RWDKPCIBKP3078-42-68 08:16:009.8[facility] DdkcaxbJOFSNTIOQY6018-55-40 08:16:000.8 [facility] RktmtwoWNMJUGAKIY7717-23-84 08:16:000.6[facility]annHEMATOLOGY 2018-12-07 08:16:000.1[facility] FfqudhdHXWSQINREZ0221-64-54 08:16:0061.0[facility] JuxsqtnUGUJXYREGC9285-60-63 08:16:007.8[facility] YqszunhCLUIGRTBFQ0137-47-61 08:16:001.1[facility] KrsjdpkEOPNHHVMLY9419-22-73 08:16:006.5[facility] NXQBAZZLET5207-63-28 08:16:0023.6[facility] JtbaawcDUBPEBOILM3063-73-05 08:16:00 2.3[facility] FhqeclxWCZEOZFAQL8260-84-74 08:16:006.0[facility] AMPICILLIN+SULBACTAM:SUSC:PT:ISOLATE:ORDQN:SDL6668-19-21 17:32:00Staphylococcus aureusMemorial AjwwxsbOWADVKCIMD6101-14-52 14:55:00* Test Item Value Reference Range Interpretation Comments Morenita WADE (test code = Morenita Storey TND) 0930 1 [facility] LesscvwKPLLVJSZDT3612-37-44 14:55:0014.8[facility]annCHEM PANEL 2018-12-06 07:45:89661Jsivjqlj HermannCHEM BJASY3634-02-74 07:45:008[facility]annCHEM TVLIA4363-50-74 07:45:000.49[facility]annCHEM KYBCX5324-31-32 07:45:008.2[facility]annCHEM DNDGE5930-22-63 07:45:003.8[facility]annCHEM UABXU2036-45-56 07:45:71725Nflklhwy HermannCHEM FGXTP5364-62-96 07:45:90109 [facility]annCHE[facility] AWMPW5999-23-70 07:45:0027[facility]annCHEM PANEL 2018-12-06 07:45:0099[facility]annCHEM TGQSO9261-97-78 07:45:009.8[facility] MdhzpglDRHZJMCQXQ6340-17-89 07:45:000.1[facility] KqxbjwtYETZSRVOAN8225-82-09 07:45:001.0[facility] MeqvsrcPLTSYHPDZN3795-12-44 07:45:002.1[facility] KMYCOJWJYP7101-07-51 07:45:004.8[facility] LzxoiuaVRHORYRJDC2550-31-31 07:45:000.5 [facility] ZqqwyfyEJWXQTOSOB0812-10-08 07:45:000.8[facility]annHEMATOLOGY 2018-12-06 07:45:009.8[facility] JgownogEKVWSBUDZS7338-40-68 07:45:0025.0[facility] NbcmlzrAOFPVZZIPC7717-53-92 07:45:006.3[facility] DisxmueXEFZUEJQYR1438-41-25 07:45:0057.9[facility] AjolgwfSPNEJYMGOA2397-28-95 07:45:00* Test Item Value Reference Range Interpretation Comments INR (test code = INR) 1.09 1 0.85-1.17 [facility] EohepfkXSWMGHPFVR0147-16-44 07:45:00* Test Item Value Reference Range Interpretation Comments PT (test code = PT) 13.9 s 12.0-14.7 [facility] CvuiozeESILSLGYIL6194-70-80 07:45:008.3[facility]annHEMATOLOGY 2018-12-06 07:45:0013.2[facility] AtxfxyoQNDQHSMKIJ6893-75-69 07:45:0033.0[facility] XxauyydBXIYFMMSUE0908-09-43 07:45:64299Pfizgpep SsdioarIAVXEFNUSQ0754-85-87 07:45:003.96[facility] NducyhbKMJIDTXIPR9233-47-35 07:45:008.4[facility] ITCXRUUUWY1312-89-93 07:45:00* Test Item Value Reference Range Interpretation Comments MCH (test code = MCH) 28.6 pg 27.0-31.0 [facility] XatpilaULHBKMBPSB2334-01-42 07:45:0086.6[facility]annHEMATOLOGY 2018-12-06 07:45:0011.3[facility] DjgwtshGMMVPUMUYM6960-37-36 07:45:0034.3[facility] RxcohwdEYONUHJMVR0590-09-16 05:49:0015.3[facility] HermannCHEM ZEECN7067-68-34 06:52:001.9[facility]annCHEM BUGTN4010-61-69 06:52:000.7[facility]annCHEM MLCFZ3217-64-83 06:52:0072[facility]annCHEM QWYMD4202-65-34 06:52:006.9 [facility]annCHEM JTZMS4920-13-33 06:52:0013[facility]annCHEM PANEL 2018-12-04 06:52:0029[facility]annCHEM TLIZW8184-70-78 06:52:002.8[facility]annCHEM EOERY0648-09-29 06:52:004.1[facility]annCHEM JTAIA7451-22-09 06:52:00* Test Item Value Reference Range Interpretation Comments A/G Ratio (test code = A/G Ratio) 0.7 1 0.7-1.6 [facility] HermannCHEM NEHTE8404-04-56 06:52:00* Test Item Value Reference Range Interpretation Comments B/C Ratio (test code = B/C Ratio) 14 1 6-25 [facility] SolptwxWBFBLCIEPM5549-14-65 06:52:00* Test Item Value Reference Range Interpretation Comments PTT (test code = PTT) 44.5 s 22.9-35.8 [facility]LYEEEMLKDM7398-09-81 06:52:00* Test Item Value Reference Range Interpretation Comments PT (test code = PT) 16.0 s 12.0-14.7 [facility]anoFeglkfyJZBUTFDCFY4671-10-12 06:52:00* Test Item Value Reference Range Interpretation Comments INR (test code = INR) 1.31 1 0.85-1.17 [facility]CHE[facility] RCWWK6905-98-22 02:50:001.1[facility]annCHEM PANEL 2018-12-03 21:23:000.7[facility] KrqlzefSMYQFDGBGJXDG4489-43-05 21:23:00Negative *NA*(12/03/18 4:23 PM)[facility]annCHEM LQXAV4542-47-35 07:12:001.0[facility]annCHEM AFERL2082-03-79 03:34:00* Test Item Value Reference Range Interpretation Comments B/C Ratio (test code = B/C Ratio) 19 02-08 [facility] ADLAI9117-78-37 03:34:009.8[facility] PANEL 2018-10-11 03:34:004.5[facility] VWWEU2431-94-74 03:34:00* Test Item Value Reference Range Interpretation Comments A/G Ratio (test code = A/G Ratio) 0.8 1 0.7-1.6 [facility] EOYVD2562-12-80 03:34:0093[facility]CHE[facility] PANEL 2018-10-11 03:34:0024[facility] JAPVB2259-01-78 03:34:0017[facility] LZLIA6378-50-06 03:34:0081[facility] OWQRS1722-07-81 03:34:000.3[facility] IEDQZ4068-67-42 03:34:000.83[facility] FGCPW3533-57-22 03:34:0084[facility] DTVPL6658-53-40 03:34:0016 [facility] RTHKB0937-31-30 03:34:003.8[facility]annCHE[facility] PANEL 2018-10-11 03:34:19542Uuhbhdar HermannCHEM SRAVC5907-67-47 03:34:0026[facility] KQDMD5432-19-28 03:34:008.5[facility]CHE[facility] XGYYX2829-43-55 03:34:74931Uabmfnfh HermannCHEM IBSHK4103-85-66 03:34:008.0[facility]annCHE[facility] NEEAE0618-93-25 03:34:003.5[facility] LqnwttxDXGCGQXDUP6387-17-80 03:34:000.8 [facility] OoavwenOQSLVLLLPH2298-86-02 03:34:000.1[facility]annHEMATOLOGY 2018-10-11 03:34:000.3[facility] BgkszmwQPIQHNYEOA7580-45-95 03:34:007.7[facility] RbgurlaXJKZKEOMIV8636-83-76 03:34:003.0[facility] KdlgyjtLTKENHAGYU7652-51-65 03:34:000.6[facility] FyzsxxmKOTTJLGVRJ1671-52-09 03:34:006.8[facility] GKMSKTSKEY2031-03-15 03:34:002.4[facility] FawhgrzEIKLBCFGPK2197-90-25 03:34:00 22.9[facility] MkqxwsrFALOEFGEMZ2969-64-98 03:34:0065.8[facility]annHEMATOLOGY 2018-10-11 03:34:0013.3[facility] GrdqqzdLJVEIOWTZM4606-72-74 03:34:0032.5[facility] IsquxyrONMCFUFPSQ2409-55-33 03:34:00* Test Item Value Reference Range Interpretation Comments MCH (test code = MCH) 28.8 pg 27.0-31.0 [facility] HbalvenSDZJERMUTF3754-07-62 03:34:0042.6[facility]annHEMATOLOGY 2018-10-11 03:34:0013.8[facility] VyhzxzrEBCEQDDAJS8841-78-67 03:34:0010.3[facility] EawequxDENNPPANCG4843-89-25 03:34:0088.5[facility] FhujieeOGEXQPARZL9865-45-13 03:34:004.81[facility] XudhjhhSMIATMFRZS2946-51-01 03:34:08983Gxbmegqq [facility] IWJOUGLGOU3463-46-13 03:34:008.7[facility]- CT HEAD/BRAIN W/O CONT 2018-09-23 11:52:00 Name: COLLEEN JOHNSON [facility] : 1985 Age/S: 32 / F [address] [facility] Unit #: [id number] Loc: [place] [address] Phys: Sergio Ellis MD Acct: [id number] Dis Date: Status: REG ER PHONE #: [phone] Exam Date: 09/23/2018 1144 FAX #: [phone] Reason: numbness right side of face EXAMS: CPT CODE: [id number] CT HEAD/BRAIN W/O CONT 59882 HISTORY: Numbness to the right side. COMPARISON: [...] Technologist:Aleida Billings,RT(R),CT CTDI: DLP: Trnscb Date/Time: 09/23/2018 (1152) [email or web address] Orig Print D/T: S: 09/23/2018 (1155) CTDI: DLP: PAGE 1 Signed Report CHEM RQGMT1664-07-17 06:46:001.5[facility] DAAZQ2002-11-96 06:46:000.5[facility]CHE[facility] HWORO0437-02-68 06:46:0015 [facility] TNQKO8153-87-98 06:46:0074[facility]annCHE[facility] PANEL 2018-09-06 06:46:0072[facility] CCGWC9372-92-73 06:46:001.03[facility]CHE[facility] KLVKT1339-65-15 06:46:55391Zrzeujtl HermannCHEM NACZJ8426-86-64 06:46:003.6[facility]CHE[facility] OMZRG8580-95-67 06:46:007.4[facility]CHE[facility] EBAKZ5432-99-76 06:46:003.3[facility]CHE[facility] QCXPN7263-19-21 06:46:0027 [facility] DNUDR1621-01-90 06:46:93745Bgxjavow HermannCHEM PANEL 2018-09-06 06:46:0011[facility]annCHE[facility] OUYLX4990-89-53 06:46:008.3[facility]annCHE[facility] BMNIF9454-56-74 06:46:55350Ihtayvjp HermannCHEM LKXHX6147-56-31 06:46:0024[facility]annCHE[facility] UGXPO4399-42-74 06:46:00* Test Item Value Reference Range Interpretation Comments A/G Ratio (test code = A/G Ratio) 0.8 1 0.7-1.6 [facility] QEAKH9357-67-09 06:46:0010.6[facility]annCHEM PANEL 2018-09-06 06:46:00* Test Item Value Reference Range Interpretation Comments B/C Ratio (test code = B/C Ratio) 11 1 6-25 [facility] SHLOB5528-26-04 06:46:004.1[facility]annCHEM PANEL 2018-09-06 06:46:10793Vqdjsthc RhcqkmvAEDLRGOMYUWCI0472-29-63 06:46:00Negative *NA*(09/06/18 12:46 AM)[facility] QdgobqdJVCCPLWBFV0472-24-70 06:46:42753Vmgujail VqhkhecICHHYONKBF1687-14-28 06:46:008.3[facility] EgpimacIQWDVYEAQB1915-67-96 06:46:0033.1[facility] LtzteyfSKBNBBWERO1929-78-88 06:46:0013.7[facility] YXOYFGQGZN5555-13-69 06:46:00* Test Item Value Reference Range Interpretation Comments MCH (test code = MCH) 28.5 pg 27.0-31.0 [facility] BizfqmwPUJBRMWRPV0371-90-10 06:46:004.70[facility]annHEMATOLOGY 2018-09-06 06:46:0013.4[facility] YfphkpcVBXWFVGIAE5648-01-23 06:46:0012.6[facility] RyltpcfPTDKTEFVEM3670-88-53 06:46:0040.5[facility] RysuueaPYGYGVAKME9947-73-55 06:46:0086.2[facility] LhtqzwoWMTNZDSXFO2954-03-37 06:46:000.1[facility] VHTGENEKVM3209-43-22 06:46:000.4[facility] RiuanzdMOWQBQGTJI9904-53-22 06:46:000.8 [facility] WfjxqciHKIUTGGECE9322-58-06 06:46:008.4[facility]annHEMATOLOGY 2018-09-06 06:46:002.9[facility] GlypbjgFAFGGHGYIQ2524-85-70 06:46:003.6[facility] EciiovjYLUXHPDBIC8026-29-33 06:46:000.7[facility] KsrmjzvIJSESLZRSD2074-88-30 06:46:0022.9[facility] XuktgvwNPKACGPVYT6756-39-41 06:46:006.3[facility] AAQSNTIDOA4193-52-28 06:46:0066.5[facility]annUR[facility] AND SENCZ3745-00-09 06:46:00Negative (09/06/18 12:46 AM)[facility] DXTPG8800-62-73 06:46:56639Pjdvuiwa HermannURINE AND UBHOC2081-96-96 06:46:003[facility] URINE AND BHHKX9512-13-15 06:46:00Negative *NA*(09/06/18 12:46 AM)[facility] VGYGL8140-49-77 06:46:00Slight *ABN*(09/06/18 12:46 AM)[facility] CBSMV5873-00-08 06:46:00Yellow *NA*(09/06/18 12:46 AM)[facility] KQPHD2988-20-68 06:46:00* Test Item Value Reference Range Interpretation Comments UA Spec Grav (test code = UA Spec Grav) 1.023 1 [facility] NRRZP8789-53-35 06:46:00Negative (09/06/18 12:46 AM) [facility] ARDAG6421-98-65 06:46:00* Test Item Value Reference Range Interpretation Comments UA pH (test code = UA pH) 5.0 1 5.0-8.0 [facility] EEIQM7943-96-83 06:46:00Negative (09/06/18 12:46 AM) [facility] VQPYZ4317-90-19 06:46:00Negative *NA*(09/06/18 12:46 AM)[facility] ZDJHY0575-10-20 06:46:00Negative *NA*(09/06/18 12:46 AM)[facility] AIOGB8084-47-99 06:46:00Large *ABN*(09/06/18 12:46 AM)[facility] KFUCL7415-76-52 10:22:001.9[facility] HermannELECTROLYTES 2018-08-28 10:22:0011.1[facility] BjhvfroFFUCYOPYBKTU1620-29-73 10:22:24245 [facility] UdxirogLBSERVNHVLPZ3903-61-36 10:22:008.4[facility] HermannELECTROLYTES 2018-08-28 10:22:0013[facility] XutgprnUTNFCESVLMUI5209-50-51 10:22:04249Yeqoehyo EbsuxozDEAJNAAQQKMJ8006-14-20 10:22:000.69[facility] OzgtfanTWUYLBSMGQEF7918-11-98 10:22:004.1[facility] NlgdjsvKFPWQIBLDMLN6683-80-44 10:22:0025[facility] MCJHLCSRSWZK2860-15-10 10:22:28864Kteftovw QyhoyssAAPBVIBBFLVB5438-91-46 10:22:28197Ehemmamb SfghfqzCHZUIGUOLN2475-59-42 10:22:00* Test Item Value Reference Range Interpretation Comments INR (test code = INR) 1.01 1 0.85-1.17 [facility] VswzilbDYTRONTUOF9480-76-28 10:22:00* Test Item Value Reference Range Interpretation Comments PTT (test code = PTT) 33.7 s 22.9-35.8 [facility] NmmjbgsLYGEHVSHAH2559-13-65 10:22:00* Test Item Value Reference Range Interpretation Comments PT (test code = PT) 13.1 s 12.0-14.7 [facility] RnmuxiuFDYRQBTFUJ0199-32-91 10:22:0026.9[facility]annHEMATOLOGY 2018-08-28 10:22:002.1[facility] IrwdjawXCJVXOMJGA9507-39-82 10:22:006.7[facility] VwjnyjkVLYAYDEUTH7781-95-45 10:22:009.3[facility] KnafxraCSYTZQTPXY9806-96-65 10:22:0056.2[facility] BmaejkrZDRSHGYYZX9798-41-06 10:22:000.7[facility] YQBZFVXWTA7486-60-50 10:22:000.5[facility] DzqglymVBQPGBCJXV3608-02-13 10:22:004.3 [facility] DgoxtuuJWIGBMLPGG1001-23-28 10:22:000.9[facility]annHEMATOLOGY 2018-08-28 10:22:000.1[facility] HvjvoyhBBWMGQJHSE4761-46-92 10:22:008.1[facility] NgwsrtuAYHIKJFASA2294-86-12 10:22:0013.4[facility] YemqvzdLQGBNYXNKV3572-66-15 10:22:43772Fpgukqvh IsscrfhQDHDBIRTYJ1738-24-22 10:22:0033.2[facility] BTPYBKWBMX8938-91-78 10:22:0087.4[facility] AefngjzUFZDETWGSA5487-54-48 10:22:00* Test Item Value Reference Range Interpretation Comments MCH (test code = MCH) 29.0 pg 27.0-31.0 [facility] AgsdbmaWDSEBDMOXB3941-31-40 10:22:0041.5[facility] HermannHEMATOLOGY 2018-08-28 10:22:007.7[facility] VciicbuEOCVSJPVLS4150-55-26 10:22:004.74[facility] IvgizimNPTHXIQYSA7704-86-58 10:22:0013.8[facility] HqhtqmhFCAFTCRIWN3829-92-86 05:09:00* Test Item Value Reference Range Interpretation Comments PT (test code = PT) 12.9 s 12.0-14.7 [facility] IqswaakGUCRVJNRVV2248-82-99 05:09:00* Test Item Value Reference Range Interpretation Comments INR (test code = INR) 0.99 1 0.85-1.17 [facility]CHE[facility] ZSEQC4269-97-95 10:55:002.1[facility] HermannELECTROLYTES 2018-08-27 10:55:99323Jokggwpk YocasdyKUXEPCUUTQBS9564-00-70 10:55:004.1[facility] UcuqbdqYTLAIAIUCRGK7413-37-39 10:55:98142Opaynivo OldjvevGLLUCZVGIWUM0682-92-32 10:55:0012[facility] GplcdusXIDGSJMOKPIN5919-46-27 10:55:0090[facility] WPZEZSELEBSH5389-95-10 10:55:000.62[facility] ZlrrzqqXQYXECGRUMWX0045-85-50 10:55:008.4[facility] JdtckmtBJYJQOMBHMOH5450-89-79 10:55:0028[facility] ORGAORUCSZXA4565-00-48 10:55:84324Cbfdupwf EqywucjUPFPEDWQBRBV0045-16-64 10:55:0012.1[facility] WdxqvupHQMMASRGPV9036-79-40 10:55:007.7[facility] WPYTKIHHFR0090-94-17 10:55:0013.2[facility] XlhvfodYPDMDPYUGI5068-66-67 10:55:00 4.56[facility] LfumotoYHCLEOHUSQ2290-62-67 10:55:0039.0[facility]annHEMATOLOGY 2018-08-27 10:55:0013.4[facility] MgdrovhAGKNJMHEHK7432-72-78 10:55:0033.9[facility] NziyrnwKAJVPSBJEV6514-98-37 10:55:00* Test Item Value Reference Range Interpretation Comments MCH (test code = MCH) 28.9 pg 27.0-31.0 [facility] UcowuriAZZMSIHWZN1627-45-82 10:55:47138Rtcqxqpg HermannHEMATOLOGY 2018-08-27 10:55:0085.4[facility] DqzznioLORYGQCYTF3126-90-44 10:55:008.4[facility] YeuiillDHOCUCIFOZ9166-24-24 10:55:000.9[facility] AbpxdnuVBEBLMHTHT1446-03-60 10:55:000.5[facility] VwfkaitEHJAEUDZBO5603-11-04 10:55:000.1[facility] HWUFETXVWY1363-71-62 10:55:0011.1[facility] SavfgrrNSDTWHJANK8647-66-71 10:55:00 24.6[facility] WdrbnxbRSUODEXTAF0646-28-41 10:55:0056.9[facility] HermannHEMATOLOGY 2018-08-27 10:55:001.1[facility] NpbwlmcAKBOSVLPSV4764-88-31 10:55:006.3[facility] ZjkwixtCCWNJPNWYJ7562-06-09 10:55:004.4[facility] FvryjypHDXONCQPNG6508-59-83 10:55:001.9[facility] WbubcjkXLZDUCIMSQ6127-01-68 05:18:00* Test Item Value Reference Range Interpretation Comments Morenita WADE (test code = Morenita WADE) 0000 1 [facility] QcztvexRNNVJVFCUZ8871-58-83 05:18:0013.1[facility]annCHEM PANEL 2018-08-26 10:28:001.9[facility] HermannCHEM JRCDC8300-01-21 10:28:25796Pyenmpdc HermannCHEM BOSCN8233-76-63 10:28:72298Bwxebtqo HermannCHEM BJFAE8905-44-36 10:28:0027[facility]annCHEM AZCNC7200-24-34 10:28:0012[facility]annCHEM YMRTV1461-11-65 10:28:008.0[facility]annCHEM EIRRG7268-39-85 10:28:004.0 [facility]annCHE[facility] BDFIC5688-11-88 10:28:71089Pwzyechj HermannCHEM PANEL 2018-08-26 10:28:000.56[facility]annCHEM RHABZ5783-67-48 10:28:0089[facility]annCHEM HGCTV0037-36-89 10:28:0011.0[facility] XtkhnwaTUABAJWBZX4258-38-17 10:28:000.8[facility] YyvoeurYWWPEIEDHI8854-51-77 10:28:000.5[facility] CAIVRAETGX8186-46-14 10:28:000.1[facility] LsvzrvuSIJUGPTYME0392-34-86 10:28:005.7 [facility] OdaeoojIRNRBDCJFM1897-26-74 10:28:0023.6[facility] HermannHEMATOLOGY 2018-08-26 10:28:009.6[facility] CxvnudyTFAIHIPVGU2417-03-46 10:28:001.0[facility] RnejkjuRSXOABAPFQ7649-26-45 10:28:005.2[facility] VjprwwyIZVARIYRMX3805-04-87 10:28:002.1[facility] TnkuvwbQZZLXOSTGV1954-70-66 10:28:0060.1[facility] XZAFIXLMMR8227-22-07 10:28:0013.3[facility] EqslwfkSVGVXBSBIR0789-21-64 10:28:00 228[facility] FwenteiQVZQGFUIGM3751-50-84 10:28:0038.0[facility]annHEMATOLOGY 2018-08-26 10:28:004.40[facility] AkyjricPODPSADMIM4575-49-84 10:28:008.7[facility] IeeaqlcSHNFPYXSSJ9827-25-52 10:28:0012.9[facility] VbstoueGEUUJTDOTZ9258-53-99 10:28:00* Test Item Value Reference Range Interpretation Comments MCH (test code = MCH) 29.2 pg 27.0-31.0 [facility] ZkaolzsFNLPIFDOCW8612-13-45 10:28:0086.2[facility]annHEMATOLOGY 2018-08-26 10:28:0033.9[facility] ZjrkmlnXNXYJWLYRL5245-87-93 10:28:008.2[facility] FzqymvhSZMYBQNQNC3194-74-33 19:34:00* Test Item Value Reference Range Interpretation Comments Vanco Tr TND (test code = Vanco Tr TND) 1330 1 [facility] ObxylemDFPLOLEIGX9867-19-74 19:34:0015.8[facility]annCHEM PANEL 2018-08-25 10:41:003.7[facility]annCHEM SHFDM4975-81-02 10:41:00* Test Item Value Reference Range Interpretation Comments B/C Ratio (test code = B/C Ratio) 24 1 6-25 [facility]CHE[facility] KGEPF9323-89-23 10:41:00* Test Item Value Reference Range Interpretation Comments A/G Ratio (test code = A/G Ratio) 0.8 1 0.7-1.6 [facility]CHE[facility] IUOQP8912-49-51 10:41:003.6[facility]annCHEM PANEL 2018-08-25 10:41:000.3[facility]annCHEM YZQTR9442-79-93 10:41:0077[facility]annCHEM AVIZI9466-07-45 10:41:0019[facility]annCHEM LUTPN4838-37-94 10:41:0023[facility]annCHEM USBCL4055-04-69 10:41:002.8[facility]annCHEM JTFKN6943-90-79 10:41:006.4[facility]annCHEM CVLAP4934-80-77 23:22:00<0.05 [facility]CHE[facility] QLRVY8604-41-42 23:22:001.1[facility] HermannIMMUNOLOGY 2018-08-24 23:22:00Negative *NA*(08/24/18 5:22 PM)[facility]annCHEM PANEL 2018-08-24 17:20:002.2[facility]annCHEM KSOLM1987-19-29 10:15:007.8[facility]annCHEM ZEURG5282-54-25 10:15:003.8[facility]annCHEM ZIZCA1516-37-14 10:15:0099[facility]annCHEM DQOWV9048-65-73 10:15:000.3[facility]annCHEM SAJPW4529-28-10 10:15:0018[facility]annCHEM CFKKC5659-07-53 10:15:0021 [facility]CHE[facility] XKLWF1974-87-08 10:15:004.0[facility]annCHEM PANEL 2018-08-24 10:15:00* Test Item Value Reference Range Interpretation Comments A/G Ratio (test code = A/G Ratio) 1.0 1 0.7-1.6 [facility]annCHE[facility] NIHLD4524-53-94 10:15:00* Test Item Value Reference Range Interpretation Comments B/C Ratio (test code = B/C Ratio) 17 1 6-25 [facility] QjpnvwkZRDZRVFZANBOG9786-15-40 10:15:00Negative *NA*(08/24/18 4:15 AM) [facility] XevedzxPSKVRBWOIL2909-28-02 10:15:00Normal (08/24/18 4:15 AM)[facility] MdkhlbdXBTYPFLWJY6646-24-98 10:15:00Normal (08/24/18 4:15 AM)[facility] SPECIAL XIXPLQALL5902-49-58 10:15:005.3[facility] SxwhfziWJBPGGUOWILG8466-46-73 08:00:0012.2[facility] PqvgugcZNLQVMMZZSNV3970-45-91 08:00:51275Yhdmespd [facility] JSYAARRDUAUT4384-61-61 08:00:0089[facility] FjvbcgiTDYBZVMDPRTS8499-58-29 08:00:00 4.2[facility] DgkwfyuLGFFEONKLEHG3525-14-15 08:00:86918Nwevbktb [place] OIKUAHLSPZMA9650-25-25 08:00:000.72[facility] CsebfcpOTKCKVSKLPDB8238-03-87 08:00:12057Yxlfzmit XfskjnhXESHYDBKJVPZ1234-36-98 08:00:009[facility] KVWNODYKKHMB1899-69-04 08:00:0029[facility] WuskejeLSKMVPKFURIP1132-14-69 08:00:00 8.2[facility] UfiwdubNHYLNHNNEH3002-06-28 08:00:000.3[facility] HermannHEMATOLOGY 2018-05-21 08:00:000.8[facility] DlvtsfqFNVSJXPIQL2161-28-80 08:00:000.1[facility] XnauggtLZJVJIQDFV6103-70-74 08:00:0032.9[facility] GsvakylTTPMDLAWIM1204-25-93 08:00:0050.8[facility] ZtrpeuhHGJLKCJKKX4965-77-05 08:00:002.3[facility] YKFSBBLULY3997-82-27 08:00:003.6[facility] XqgahkhHAPNQMGLQN8034-34-16 08:00:000.8 [facility] JguqplrSZMLCGFGET8200-59-58 08:00:004.8[facility] HermannHEMATOLOGY 2018-05-21 08:00:0010.7[facility] UlsqgriFORPCMLHZM2485-96-50 08:00:0035.3[facility] EhtqpuaHYIMZLWPBR0382-49-22 08:00:93938Xthnmgll RylxuevSIDUTOPDZG5489-36-81 08:00:0012.9[facility] FhxrzvdVKWRLRQXDB2078-62-83 08:00:0085.6[facility] YPQSBIYZAD1363-23-87 08:00:0034.4[facility] KngmwcwUKJQTIXNOG4356-88-66 08:00:00* Test Item Value Reference Range Interpretation Comments MCH (test code = MCH) 29.4 pg 27.0-31.0 [facility] RuaqgolBPUBVRAETH7993-81-31 08:00:008.4[facility] HermannHEMATOLOGY 2018-05-21 08:00:004.12[facility] JegvsvgKRKQYWLTZW9360-67-22 08:00:007.1[facility] FvwequqGZGDQMBMXM3783-31-36 08:00:0012.1[facility] KeojpruWVXRWHWWDZ4193-86-87 07:31:0015.7[facility] ApzvggqFKQUSRUNQZ3073-23-61 07:31:00* Test Item Value Reference Range Interpretation Comments Morenita Storey TND (test code = Morenita Tr TND) 0300 1 [facility] EwvznroYASQZEQVMVWQ7218-47-52 08:22:0010.9[facility] HermannELECTROLYTES 2018-05-20 08:22:59973Sblwqzae NhyddquSIVYHCHTBFOU4579-77-09 08:22:0026[facility] LanbbiyJJEWPIMQHALP9061-51-34 08:22:44631Ctfgoxdd OdwwnxyRYROMOQHHVYW5973-23-08 08:22:48031Hvjrtzea IrqwlfgNCEIHQETLSOG0893-52-90 08:22:003.9[facility] VYWIDEKFMEVZ1747-33-14 08:22:008.0[facility] ZqkraenFUEATSJJUYJO3163-37-46 08:22:000.59[facility] WqaxbdbPQBNFEJFIRQQ3451-75-45 08:22:0094[facility] [place] SPQSATXTVWQQ8132-24-14 08:22:009[facility] EotxdjcPLAXSGBDIP0475-30-75 08:22:00 55.0[facility] VqzfsiwSSICXBGONQ7774-38-23 08:22:0031.9[facility] HermannHEMATOLOGY 2018-05-20 08:22:002.3[facility] GattvaqTPAZFDQFXE8194-03-18 08:22:009.9[facility] PnyvojgSWUDESZGGU9464-56-59 08:22:000.7[facility] FnhsbryRBIERNFFQN7610-16-40 08:22:002.4[facility] BqnltakATQYGCXXOU6349-32-05 08:22:000.1[facility] [place] UYWEAIRBOW0542-23-90 08:22:000.2[facility] EumurcfEYTUFMRQHW9650-58-17 08:22:004.1 [facility] DcyjhheQZJZLOYTXP4172-44-38 08:22:000.9[facility] HermannHEMATOLOGY 2018-05-20 08:22:00* Test Item Value Reference Range Interpretation Comments MCH (test code = MCH) 29.8 pg 27.0-31.0 [facility] AcyrpopDPCMPSKJXB2336-64-46 08:22:0086.8[facility] HermannHEMATOLOGY 2018-05-20 08:22:003.85[facility] NpngzqrFRKNDDMCVX9725-50-24 08:22:007.4[facility] YxxwxwgKYLCZYDWNC5616-62-12 08:22:0033.4[facility] UavkkmuVEXGCRLQJH0572-74-76 08:22:0011.5[facility] LlufhgeLUHMPZYSLK5534-12-70 08:22:0012.9[facility] EZLGWSECLH8236-99-16 08:22:0034.3[facility] MxamockNJCPYUHTCH5042-46-15 08:22:00 8.7[facility] QosqkjpLDJPGQCTGB0283-88-28 08:22:73152Yymljcwn HermannELECTROLYTES 2018-05-19 06:30:0014.4[facility] NsjpyhbAEGWJLUQSCPR6458-17-70 06:30:13438 [facility] CdcavxtGUADYPMOONZE8398-72-22 06:30:008.2[facility] HermannELECTROLYTES 2018-05-19 06:30:004.4[facility] XwuurljLRVJFNYMFIPV6506-14-49 06:30:22693Rbcnigfl DbsntriIHFYFQUQHPPD8118-65-74 06:30:0025[facility] GxqiqvnUMCKQLWZGKDV2503-93-62 06:30:41323Wiixkjym XddfzwtQIMAUZUITIFW9145-31-43 06:30:007[facility] OPCMWJENDUSY5590-18-91 06:30:91570Lqfahvyw YylidgpKJXVYLMWUILS6717-09-49 06:30:000.73[facility] MhyuxzwLHSZEBRCXP2350-77-22 06:30:000.3[facility] CEHEGOHSIQ8895-10-54 06:30:000.1[facility] RmolyunRSKVXLSIMN4855-89-83 06:30:00 83.5[facility] AyqjdyhUJNWEFMTMZ7053-69-42 06:30:009.1[facility]annHEMATOLOGY 2018-05-19 06:30:007.0[facility] XzctmpjYQCPYZAABT5445-10-40 06:30:008.9[facility] RzfvrupAMKMOOJQTG4499-28-37 06:30:000.7[facility] XmjxzntHRWNIMSESY9128-60-38 06:30:001.0[facility] YwfjbsmHTWLUETJLJ0555-09-37 06:30:008.4[facility] NSZQEKAPSL8821-67-52 06:30:40390Opmqkajr KwwmqtgZMZBDKERYZ6977-50-36 06:30:00 12.8[facility] PwzllrwCVMKXQXXKE0295-45-17 06:30:0033.2[facility]annHEMATOLOGY 2018-05-19 06:30:0010.6[facility] WogvtuyTEJGCCKKTL4143-95-77 06:30:0088.3[facility] AqanrllSLDNOPRMJH2279-44-17 06:30:0038.9[facility] OikahhmPTIUIULVSL8033-05-26 06:30:004.41[facility] GkmsluyUVVCDMVAHL2546-58-72 06:30:00* Test Item Value Reference Range Interpretation Comments MCH (test code = MCH) 29.3 pg 27.0-31.0 [facility] AzcebjyKNCSRDCPFQ5577-38-56 06:30:0012.9[facility] HermannTOXICOLOGY 2018-05-19 06:30:00* Test Item Value Reference Range Interpretation Comments Vanco Tr TND (test code = Vanco Tr TND) 0200 1 [facility] PwjqqhmZMUXDWFEWV5608-18-40 06:30:006.6[facility]annTOXICOLOGY 2018-05-18 20:36:0027.1[facility] AMPICILLIN+SULBACTAM:SUSC:PT:ISOLATE:ORDQN:FOQ9138-29-03 18:30:00Staphylococcus aureusMemorial HermannCHEM SIUFK2634-08-31 08:51:001.9[facility]annCHEM PANEL 2018-05-17 08:51:00* Test Item Value Reference Range Interpretation Comments B/C Ratio (test code = B/C Ratio) 16 1 6-25 [facility]annCHEM WHMPQ8671-79-66 08:51:007.0[facility]annCHEM PANEL 2018-05-17 08:51:004.0[facility]annCHEM KVROD9261-10-98 08:51:003.0[facility]annCHEM BKYCO4203-43-44 08:51:0011[facility]annCHEM IRDWH3191-44-36 08:51:000.4[facility]annCHEM GTFKI2174-79-40 08:51:0066[facility]annCHEM NEUZY1918-51-77 08:51:0019[facility]annCHEM FJEGO1385-25-89 08:51:00* Test Item Value Reference Range Interpretation Comments A/G Ratio (test code = A/G Ratio) 0.8 1 0.7-1.6 [facility] MhgxexfJVWSYEMPRD4239-61-71 08:51:00* Test Item Value Reference Range Interpretation Comments INR (test code = INR) 1.14 1 0.85-1.17 [facility] OyhxglgUGARRQLVOJ2324-44-24 08:51:00* Test Item Value Reference Range Interpretation Comments PT (test code = PT) 14.6 s 12.0-14.7 [facility] FgdmcxsSUAZUCQZGM6204-78-16 08:51:00* Test Item Value Reference Range Interpretation Comments PTT (test code = PTT) 36.4 s 22.9-35.8 [facility] IvuykgjCSBVWOCWVC4970-03-41 08:51:000.1[facility]annHEMATOLOGY 2018-05-17 08:51:000.3[facility]annCHEM VZLBR1572-84-28 06:46:001.3[facility]annCHEM BTPNU7426-68-97 05:24:004.1[facility]annCHEM HQLUT5989-29-13 05:24:00* Test Item Value Reference Range Interpretation Comments A/G Ratio (test code = A/G Ratio) 0.8 1 0.7-1.6 [facility]annCHE[facility] ICEYB1998-43-50 05:24:00* Test Item Value Reference Range Interpretation Comments B/C Ratio (test code = B/C Ratio) 13 1 6-25 [facility]annCHE[facility] PHIOH5098-53-44 05:24:0021[facility]annCHEM PANEL 2018-05-17 05:24:0014[facility]annCHEM ZMNBO1810-61-93 05:24:0071[facility]annCHE[facility] UOYCP5234-61-92 05:24:000.2[facility]annCHEM KQKRN9335-77-93 05:24:003.2[facility]annCHE[facility] LFPWG2810-05-64 05:24:007.3[facility] YZJMZGMQHGOOV7943-49-97 05:24:00Negative *NA*(05/17/18 12:24 AM)[facility] CT ABDOMEN/PELVIS V7003-72-38 19:32:00 [facility] [address] [place] [id number] Patient Name: COLLEEN JOHNSON MR #: [id number] : 1985 Age/Sex: 32/F Req #: [id number] Adm Physician: Ordered by: FELICIA DELGADO MD Report #: [id number] Location: ER Room/Bed: Procedure: [id number] CT/CT ABDOMEN/PELVIS W Exam Date: 02/07/18 Exam [...] 7:35 PM Dictated By: MARY AVELAR MD 1935 Tra nscribed By: LILIA on 02/07/181934 COPY TO: FELICIA DELGADO MD Urine Wzgebwa6719-65-18 15:50:00* Test Item Value Reference Range Interpretation Comments Urine Clarity (test code = 93596-9) CLOUDY CLEAR H [facility] RGY4847-26-76 15:50:00* Test Item Value Reference Range Interpretation Comments Urine WBC (test code = 5821-4) NONE 0-5 [facility] NQS5528-44-36 15:50:00* Test Item Value Reference Range Interpretation Comments Urine RBC (test code = 61623-5) 0-5 0-5 [facility] Tbsvbzrn5723-23-69 15:50:00* Test Item Value Reference Range Interpretation Comments Urine Bacteria (test code = 11622-9) RARE NONE [facility] Epithelial Fvxsl2961-13-14 15:50:00 * Test Item Value Reference Range Interpretation Comments Urine Epithelial Cells (test code = 20717-5) RARE NONE [facility] Amorphous Odjoxrwy3559-67-47 15:50:00* Test Item Value Reference Range Interpretation Comments Urine Amorphous Sediment (test code = 8246-1) MANY FEW H [facility] Lvrqzjc7613-22-88 15:50:00* Test Item Value Reference Range Interpretation Comments Urine Clarity (test code = 09143-5) CLOUDY CLEAR H [facility] LOK5382-00-94 15:50:00* Test Item Value Reference Range Interpretation Comments Urine WBC (test code = 5821-4) NONE 0-5 [facility] XBO5407-54-07 15:50:00* Test Item Value Reference Range Interpretation Comments Urine RBC (test code = 14749-5) 0-5 0-5 [facility] Vmwalbxw3230-99-98 15:50:00* Test Item Value Reference Range Interpretation Comments Urine Bacteria (test code = 15275-6) RARE NONE [facility] Epithelial Ppogy2700-48-73 15:50:00 * Test Item Value Reference Range Interpretation Comments Urine Epithelial Cells (test code = 52327-4) RARE NONE [facility] Amorphous Ziklggle6687-33-91 15:50:00* Test Item Value Reference Range Interpretation Comments Urine Amorphous Sediment (test code = 8246-1) MANY FEW H [facility] Smgzp2497-01-04 15:44:00* Test Item Value Reference Range Interpretation Comments Sodium Level (test code = 2951-2) 139 136-145 [facility] HospitalPotassium Qnjbe8708-60-72 15:44:00* Test Item Value Reference Range Interpretation Comments Potassium Level (test code = 2823-3) 3.6 3.5-5.1 [facility] HospitalChloride Ghqym9845-81-69 15:44:00* Test Item Value Reference Range Interpretation Comments Chloride Level (test code = 2075-0) 107 98-107 [facility] HospitalCarbon Dioxide Lroyw3503-75-40 15:44:00* Test Item Value Reference Range Interpretation Comments Carbon Dioxide Level (test code = 2028-9) 24 - [facility] HospitalAnion Tjv6025-60-12 15:44:00* Test Item Value Reference Range Interpretation Comments Anion Gap (test code = 19062-9) 11.6 8-16 [facility] HospitalBlood Urea Uqehcumj5456-64-45 15:44:00* Test Item Value Reference Range Interpretation Comments Blood Urea Nitrogen (test code = 3094-0) 15 7-26 [facility] HospitalCreatinine2018-06-24 15:44:00* Test Item Value Reference Range Interpretation Comments Creatinine (test code = 2160-0) 0.78 0.57-1.11 [facility] HospitalBUN/Creatinine Rekdf9818-17-33 15:44:00* Test Item Value Reference Range Interpretation Comments BUN/Creatinine Ratio (test code = 3097-3) 19 6- [facility] HospitalEstimat Glomerular Filtration Rate 2018-02-07 15:44:00* Test Item Value Reference Range Interpretation Comments Estimat Glomerular Filtration Rate (test code = 07106-7) 60- >60 Ranges were taken from the National Kidney Disease Education Program and the [place] scionhealthal Kidney Foundation literature.Reference ranges:60 or greater: Zwrotf49-13 ( for 3 consecutive months): Chronic kidney disease 15 or less: Kidney failureMemorial Hermann Pearland HospitalGlucose Wjsin7352-97-72 15:44:00* Test Item Value Reference Range Interpretation Comments Glucose Level (test code = WIV6614) 95 74-118 [facility] HospitalCalcium Yaeba2956-46-67 15:44:00* Test Item Value Reference Range Interpretation Comments Calcium Level (test code = 34847-4) 8.9 8.4-10.2 [facility] HospitalTotal Meyqmykph5951-62-85 15:44:00* Test Item Value Reference Range Interpretation Comments Total Bilirubin (test code = 1975-2) 0.4 0.2-1.2 [facility] HospitalAspartate Amino Transf (AST/SGOT) 2018-02-07 15:44:00* Test Item Value Reference Range Interpretation Comments Aspartate Amino Transf (AST/SGOT) (test code = Aspartate Amino Transf (AST/SGOT)) 29 5-34 [facility] HospitalAlanine Aminotransferase (ALT/SGPT) 2018-02-07 15:44:00* Test Item Value Reference Range Interpretation Comments Alanine Aminotransferase (ALT/SGPT) (test code = 1742-6) 55 0-55 [facility] HospitalTotal Zarxoad3671-64-51 15:44:00* Test Item Value Reference Range Interpretation Comments Total Protein (test code = 2885-2) 6.8 6.5-8.1 [facility] HospitalAlbumin2018-06-24 15:44:00* Test Item Value Reference Range Interpretation Comments Albumin (test code = 1751-7) 3.5 3.5-5.0 [facility] HospitalGlobulin2018-06-24 15:44:00* Test Item Value Reference Range Interpretation Comments Globulin (test code = 69584-9) 3.3 2.3-3.5 [facility] HospitalAlbumin/Globulin Lhcgx0627-17-78 15:44:00 * Test Item Value Reference Range Interpretation Comments Albumin/Globulin Ratio (test code = 1759-0) 1.1 0.8-2.0 [facility] HospitalAlkaline Jmfyrpdvcva3329-25-26 15:44:00* Test Item Value Reference Range Interpretation Comments Alkaline Phosphatase (test code = 6768-6) 62 40-150 [facility]st[facility] Vjuyt8557-92-04 15:44:00* Test Item Value Reference Range Interpretation Comments Sodium Level (test code = 2951-2) 139 136-145 [facility] HospitalPotassium Ogyyo1497-26-45 15:44:00* Test Item Value Reference Range Interpretation Comments Potassium Level (test code = 2823-3) 3.6 3.5-5.1 [facility] HospitalChloride Aokew2090-78-74 15:44:00* Test Item Value Reference Range Interpretation Comments Chloride Level (test code = 2075-0) 107 98-107 [facility] HospitalCarbon Dioxide Lccgs1237-54-83 15:44:00* Test Item Value Reference Range Interpretation Comments Carbon Dioxide Level (test code = 2028-9) 24 - [facility] HospitalAnion Vtb2269-70-87 15:44:00* Test Item Value Reference Range Interpretation Comments Anion Gap (test code = 41181-1) 11.6 8-16 [facility] HospitalBlood Urea Uodviiwf7464-28-54 15:44:00* Test Item Value Reference Range Interpretation Comments Blood Urea Nitrogen (test code = 3094-0) 15 7-26 [facility] HospitalCreatinine2018-06-24 15:44:00* Test Item Value Reference Range Interpretation Comments Creatinine (test code = 2160-0) 0.78 0.57-1.11 [facility] HospitalBUN/Creatinine Ezrzq1231-93-99 15:44:00* Test Item Value Reference Range Interpretation Comments BUN/Creatinine Ratio (test code = 3097-3) 19 6- [facility] HospitalEstimat Glomerular Filtration Rate 2018-02-07 15:44:00* Test Item Value Reference Range Interpretation Comments Estimat Glomerular Filtration Rate (test code = 73441-8) 60- >60 Ranges were taken from the National Kidney Disease Education Program and the [place] scionhealthal Kidney Foundation literature.Reference ranges:60 or greater: Qvvatn02-19 ( for 3 consecutive months): Chronic kidney disease 15 or less: Kidney failureMemorial Hermann Pearland HospitalGlucose Lkquv6546-80-46 15:44:00* Test Item Value Reference Range Interpretation Comments Glucose Level (test code = WDM7901) 95 74-118 [facility] HospitalCalcium Emozn1179-38-53 15:44:00* Test Item Value Reference Range Interpretation Comments Calcium Level (test code = 26098-8) 8.9 8.4-10.2 [facility] HospitalTotal Hrkkyvriy5716-20-94 15:44:00* Test Item Value Reference Range Interpretation Comments Total Bilirubin (test code = 1975-2) 0.4 0.2-1.2 [facility] HospitalAspartate Amino Transf (AST/SGOT) 2018-02-07 15:44:00* Test Item Value Reference Range Interpretation Comments Aspartate Amino Transf (AST/SGOT) (test code = Aspartate Amino Transf (AST/SGOT)) 29 5-34 [facility] HospitalAlanine Aminotransferase (ALT/SGPT) 2018-02-07 15:44:00* Test Item Value Reference Range Interpretation Comments Alanine Aminotransferase (ALT/SGPT) (test code = 1742-6) 55 0-55 [facility] HospitalTotal Nmeipvm7188-19-64 15:44:00* Test Item Value Reference Range Interpretation Comments Total Protein (test code = 2885-2) 6.8 6.5-8.1 [facility] HospitalAlbumin2018-06-24 15:44:00* Test Item Value Reference Range Interpretation Comments Albumin (test code = 1751-7) 3.5 3.5-5.0 [facility] HospitalGlobulin2018-06-24 15:44:00* Test Item Value Reference Range Interpretation Comments Globulin (test code = 05322-6) 3.3 2.3-3.5 [facility] HospitalAlbumin/Globulin Jjpoo3488-61-64 15:44:00 * Test Item Value Reference Range Interpretation Comments Albumin/Globulin Ratio (test code = 1759-0) 1.1 0.8-2.0 [facility] HospitalAlkaline Ngocealyaie4800-18-62 15:44:00* Test Item Value Reference Range Interpretation Comments Alkaline Phosphatase (test code = 6768-6) 62 40-150 [facility] Chorionic Gonadotropin, Qual 2018-02-07 15:37:00* Test Item Value Reference Range Interpretation Comments Human Chorionic Gonadotropin, Qual (test code = 2118-8) NEGATIVE NEGATIVE [facility] Chorionic Gonadotropin, Qual 2018-02-07 15:37:00* Test Item Value Reference Range Interpretation Comments Human Chorionic Gonadotropin, Qual (test code = 2118-8) NEGATIVE NEGATIVE [facility] HospitalUrine Vcoeg8666-27-46 15:35:00* Test Item Value Reference Range Interpretation Comments Urine Color (test code = 5778-6) YELLOW YELLOW [facility] HospitalUrine Specific Vhatshp3836-73-14 15:35:00 * Test Item Value Reference Range Interpretation Comments Urine Specific [place] (test code = 5811-5) 1.030 1.010-1.02 5 H [facility] HospitalUrine iH7896-30-28 15:35:00* Test Item Value Reference Range Interpretation Comments Urine pH (test code = 31233-4) 6 5-7 [facility] HospitalUrine Leukocyte Sycptvoj7192-27-74 15:35:00* Test Item Value Reference Range Interpretation Comments Urine Leukocyte Esterase (test code = 5799-2) NEGATIVE NEGATIVE [facility] HospitalUrine Rklmgla2347-56-15 15:35:00* Test Item Value Reference Range Interpretation Comments Urine Nitrite (test code = 27429-4) NEGATIVE NEGATIVE [facility] HospitalUrine Fiojdha2485-70-15 15:35:00* Test Item Value Reference Range Interpretation Comments Urine Protein (test code = 5804-0) 1+ NEGATIVE H [facility] HospitalUrine Glucose (UA)2018-02-07 15:35:00* Test Item Value Reference Range Interpretation Comments Urine Glucose (UA) (test code = 2349-9) NEGATIVE NEGATIVE [facility] HospitalUrine Rvwtzwt1336-23-16 15:35:00* Test Item Value Reference Range Interpretation Comments Urine Ketones (test code = 05789-2) 1+ NEGATIVE H [facility] HospitalUrine Ntrarjxvyqka8850-94-53 15:35:00* Test Item Value Reference Range Interpretation Comments Urine Urobilinogen (test code = 31585-8) 0.2 0.2-1 [facility] HospitalUrine Cgjuceuvd7657-71-24 15:35:00* Test Item Value Reference Range Interpretation Comments Urine Bilirubin (test code = 1978-6) 1+ NEGATIVE H [facility] HospitalUrine Xgzay2212-73-03 15:35:00* Test Item Value Reference Range Interpretation Comments Urine Blood (test code = 16395-5) 1+ NEGATIVE H [facility] HospitalUrine Aotjm6725-63-10 15:35:00* Test Item Value Reference Range Interpretation Comments Urine Color (test code = 5778-6) YELLOW YELLOW [facility] HospitalUrine Specific Pyljjyi9158-67-63 15:35:00 * Test Item Value Reference Range Interpretation Comments Urine Specific [place] (test code = 5811-5) 1.030 1.010-1.02 5 H [facility] HospitalUrine nU4667-68-77 15:35:00* Test Item Value Reference Range Interpretation Comments Urine pH (test code = 04815-1) 6 5-7 [facility] HospitalUrine Leukocyte Jcfhjwfn1071-57-83 15:35:00* Test Item Value Reference Range Interpretation Comments Urine Leukocyte Esterase (test code = 5799-2) NEGATIVE NEGATIVE [facility] HospitalUrine Qbnegio6383-03-37 15:35:00* Test Item Value Reference Range Interpretation Comments Urine Nitrite (test code = 92525-8) NEGATIVE NEGATIVE [facility] HospitalUrine Zajkjfe2276-78-69 15:35:00* Test Item Value Reference Range Interpretation Comments Urine Protein (test code = 5804-0) 1+ NEGATIVE H [facility] HospitalUrine Glucose (UA)2018-02-07 15:35:00* Test Item Value Reference Range Interpretation Comments Urine Glucose (UA) (test code = 2349-9) NEGATIVE NEGATIVE [facility] HospitalUrine Ssfqpjl5810-18-84 15:35:00* Test Item Value Reference Range Interpretation Comments Urine Ketones (test code = 30485-8) 1+ NEGATIVE H [facility] HospitalUrine Ptkgdvnpjzbn1935-03-77 15:35:00* Test Item Value Reference Range Interpretation Comments Urine Urobilinogen (test code = 08534-8) 0.2 0.2-1 [facility] HospitalUrine Idslvwanc0850-24-15 15:35:00* Test Item Value Reference Range Interpretation Comments Urine Bilirubin (test code = 1978-6) 1+ NEGATIVE H [facility] HospitalUrine Asylj8184-17-00 15:35:00* Test Item Value Reference Range Interpretation Comments Urine Blood (test code = 81296-4) 1+ NEGATIVE H [facility] HospitalWhite Blood Cpogw2078-34-85 15:21:00* Test Item Value Reference Range Interpretation Comments White Blood Count (test code = 6690-2) 8.40 4.8-10.8 [facility] HospitalRed Blood Qcxot6674-42-11 15:21:00* Test Item Value Reference Range Interpretation Comments Red Blood Count (test code = 789-8) 4.67 3.6-5.1 [facility] HospitalHemoglobin2018-06-24 15:21:00* Test Item Value Reference Range Interpretation Comments Hemoglobin (test code = 78655-6) 13.8 12.0-16.0 [facility] HospitalHematocrit2018-06-24 15:21:00* Test Item Value Reference Range Interpretation Comments Hematocrit (test code = 4544-3) 41.0 34.2-44.1 [facility] HospitalMean Corpuscular Mhfktk0551-16-46 15:21:00* Test Item Value Reference Range Interpretation Comments Mean Corpuscular Volume (test code = 787-2) 87.8 81-99 [facility] HospitalMean Corpuscular Lwmihwnlpz0398-84-80 15:21:00* Test Item Value Reference Range Interpretation Comments Mean Corpuscular Hemoglobin (test code = 785-6) 29.6 28-32 [facility] HospitalMean Corpuscular Hemoglobin Concent 2018-02-07 15:21:00* Test Item Value Reference Range Interpretation Comments Mean Corpuscular Hemoglobin Concent (test code = 786-4) 33.7 31-35 [facility] HospitalRed Cell Distribution Tfmht7190-12-65 15:21:00* Test Item Value Reference Range Interpretation Comments Red Cell Distribution Width (test code = 13432-1) 12.7 11.7 -14.4 [facility] HospitalPlatelet Rhtsz1802-42-25 15:21:00* Test Item Value Reference Range Interpretation Comments Platelet Count (test code = 777-3) 229 140-360 [facility] HospitalNeutrophils (%) (Auto)2018-02-07 15:21:00 * Test Item Value Reference Range Interpretation Comments Neutrophils (%) (Auto) (test code = 67747-9) 68.1 38.7-80.0 [facility] HospitalLymphocytes (%) (Auto)2018-02-07 15:21:00 * Test Item Value Reference Range Interpretation Comments Lymphocytes (%) (Auto) (test code = 736-9) 20.1 18.0-39.1 [facility] HospitalMonocytes (%) (Auto)2018-02-07 15:21:00* Test Item Value Reference Range Interpretation Comments Monocytes (%) (Auto) (test code = 5905-5) 7.6 4.4-11.3 [facility] HospitalEosinophils (%) (Auto)2018-02-07 15:21:00 * Test Item Value Reference Range Interpretation Comments Eosinophils (%) (Auto) (test code = 713-8) 3.6 0.0-6.0 [facility] HospitalBasophils (%) (Auto)2018-02-07 15:21:00* Test Item Value Reference Range Interpretation Comments Basophils (%) (Auto) (test code = 706-2) 0.2 0.0-1.0 [facility] HospitalIM GRANULOCYTES %2018-02-07 15:21:00* Test Item Value Reference Range Interpretation Comments IM GRANULOCYTES % (test code = IM GRANULOCYTES %) 0.4 0.0- 1.0 [facility] HospitalNeutrophils # (Auto)2018-02-07 15:21:00* Test Item Value Reference Range Interpretation Comments Neutrophils # (Auto) (test code = 751-8) 5.7 2.1-6.9 [facility] HospitalLymphocytes # (Auto)2018-02-07 15:21:00* Test Item Value Reference Range Interpretation Comments Lymphocytes # (Auto) (test code = 08417-0) 1.7 1.0-3.2 [facility] HospitalMonocytes # (Auto)2018-02-07 15:21:00* Test Item Value Reference Range Interpretation Comments Monocytes # (Auto) (test code = 742-7) 0.6 0.2-0.8 [facility] HospitalEosinophils # (Auto)2018-02-07 15:21:00* Test Item Value Reference Range Interpretation Comments Eosinophils # (Auto) (test code = 711-2) 0.3 0.0-0.4 [facility] HospitalBasophils # (Auto)2018-02-07 15:21:00* Test Item Value Reference Range Interpretation Comments Basophils # (Auto) (test code = 704-7) 0.0 0.0-0.1 [facility] HospitalAbsolute Immature Granulocyte (auto 2018-02-07 15:21:00* Test Item Value Reference Range Interpretation Comments Absolute Immature Granulocyte (auto (tristan t code = Absolute Immature Granulocyte (auto) 0.03 0-0.1 [facility] HospitalWhite Blood Mvnly0826-44-59 15:21:00* Test Item Value Reference Range Interpretation Comments White Blood Count (test code = 6690-2) 8.40 4.8-10.8 [facility] HospitalRed Blood Bmahz7044-58-35 15:21:00* Test Item Value Reference Range Interpretation Comments Red Blood Count (test code = 789-8) 4.67 3.6-5.1 [facility] HospitalHemoglobin2018-06-24 15:21:00* Test Item Value Reference Range Interpretation Comments Hemoglobin (test code = 70731-8) 13.8 12.0-16.0 [facility] HospitalHematocrit2018-06-24 15:21:00* Test Item Value Reference Range Interpretation Comments Hematocrit (test code = 4544-3) 41.0 34.2-44.1 [facility] HospitalMean Corpuscular Mtquim4679-61-32 15:21:00* Test Item Value Reference Range Interpretation Comments Mean Corpuscular Volume (test code = 787-2) 87.8 81-99 [facility] HospitalMean Corpuscular Etbdlzdolp9959-15-12 15:21:00* Test Item Value Reference Range Interpretation Comments Mean Corpuscular Hemoglobin (test code = 785-6) 29.6 28-32 [facility] HospitalMean Corpuscular Hemoglobin Concent 2018-02-07 15:21:00* Test Item Value Reference Range Interpretation Comments Mean Corpuscular Hemoglobin Concent (test code = 786-4) 33.7 31-35 [facility] HospitalRed Cell Distribution Gdiln6243-17-86 15:21:00* Test Item Value Reference Range Interpretation Comments Red Cell Distribution Width (test code = 46844-4) 12.7 11.7 -14.4 [facility] HospitalPlatelet Yvyyg6605-80-42 15:21:00* Test Item Value Reference Range Interpretation Comments Platelet Count (test code = 777-3) 229 140-360 [facility] HospitalNeutrophils (%) (Auto)2018-02-07 15:21:00 * Test Item Value Reference Range Interpretation Comments Neutrophils (%) (Auto) (test code = 08062-0) 68.1 38.7-80.0 [facility] HospitalLymphocytes (%) (Auto)2018-02-07 15:21:00 * Test Item Value Reference Range Interpretation Comments Lymphocytes (%) (Auto) (test code = 736-9) 20.1 18.0-39.1 [facility] HospitalMonocytes (%) (Auto)2018-02-07 15:21:00* Test Item Value Reference Range Interpretation Comments Monocytes (%) (Auto) (test code = 5905-5) 7.6 4.4-11.3 [facility] HospitalEosinophils (%) (Auto)2018-02-07 15:21:00 * Test Item Value Reference Range Interpretation Comments Eosinophils (%) (Auto) (test code = 713-8) 3.6 0.0-6.0 [facility] HospitalBasophils (%) (Auto)2018-02-07 15:21:00* Test Item Value Reference Range Interpretation Comments Basophils (%) (Auto) (test code = 706-2) 0.2 0.0-1.0 [facility] HospitalIM GRANULOCYTES %2018-02-07 15:21:00* Test Item Value Reference Range Interpretation Comments IM GRANULOCYTES % (test code = IM GRANULOCYTES %) 0.4 0.0- 1.0 [facility] HospitalNeutrophils # (Auto)2018-02-07 15:21:00* Test Item Value Reference Range Interpretation Comments Neutrophils # (Auto) (test code = 751-8) 5.7 2.1-6.9 [facility] HospitalLymphocytes # (Auto)2018-02-07 15:21:00* Test Item Value Reference Range Interpretation Comments Lymphocytes # (Auto) (test code = 24353-0) 1.7 1.0-3.2 [facility] HospitalMonocytes # (Auto)2018-02-07 15:21:00* Test Item Value Reference Range Interpretation Comments Monocytes # (Auto) (test code = 742-7) 0.6 0.2-0.8 [facility] HospitalEosinophils # (Auto)2018-02-07 15:21:00* Test Item Value Reference Range Interpretation Comments Eosinophils # (Auto) (test code = 711-2) 0.3 0.0-0.4 [facility] HospitalBasophils # (Auto)2018-02-07 15:21:00* Test Item Value Reference Range Interpretation Comments Basophils # (Auto) (test code = 704-7) 0.0 0.0-0.1 [facility] HospitalAbsolute Immature Granulocyte (auto 2018-02-07 15:21:00* Test Item Value Reference Range Interpretation Comments Absolute Immature Granulocyte (auto (tristan t code = Absolute Immature Granulocyte (auto) 0.03 0-0.1 [facility] HospitalUrine KIV9202-29-85 00:12:00* Test Item Value Reference Range Interpretation Comments Urine WBC (test code = 5821-4) 6-10 0-5 H [facility] HospitalUrine SHT6983-74-99 00:12:00* Test Item Value Reference Range Interpretation Comments Urine RBC (test code = 95729-5) 11-20 0-5 H [facility] HospitalUrine Eqwhennj6606-10-42 00:12:00* Test Item Value Reference Range Interpretation Comments Urine Bacteria (test code = 85480-6) MANY NONE H [facility] HospitalUrine Epithelial Ckehl5057-20-28 00:12:00 * Test Item Value Reference Range Interpretation Comments Urine Epithelial Cells (test code = 68896-5) FEW NONE [facility] HospitalUrine Transitional Epithelial Cells 2018-02-05 00:12:00* Test Item Value Reference Range Interpretation Comments Urine Transitional Epithelial Cells (test code = 8249-5) FEW NONE [facility] Dlgsz3334-82-05 00:12:00* Test Item Value Reference Range Interpretation Comments Sodium Level (test code = 2951-2) 138 136-145 [facility] HospitalPotassium Ylvhn7459-65-58 00:12:00* Test Item Value Reference Range Interpretation Comments Potassium Level (test code = 2823-3) 3.8 3.5-5.1 [facility] HospitalChloride Vudkf2056-58-16 00:12:00* Test Item Value Reference Range Interpretation Comments Chloride Level (test code = 2075-0) 105 98-107 [facility] HospitalCarbon Dioxide Atgdg7778-74-16 00:12:00* Test Item Value Reference Range Interpretation Comments Carbon Dioxide Level (test code = 2028-9) 21 22-29 L [facility] HospitalAnion Jxs0090-91-52 00:12:00* Test Item Value Reference Range Interpretation Comments Anion Gap (test code = 67084-3) 15.8 8-16 [facility] HospitalBlood Urea Ooguatex5249-58-56 00:12:00* Test Item Value Reference Range Interpretation Comments Blood Urea Nitrogen (test code = 3094-0) 16 7-26 [facility] HospitalCreatinine2018-06-22 00:12:00* Test Item Value Reference Range Interpretation Comments Creatinine (test code = 2160-0) 0.64 0.57-1.11 [facility] HospitalBUN/Creatinine Gppvv0430-85-36 00:12:00* Test Item Value Reference Range Interpretation Comments BUN/Creatinine Ratio (test code = 3097-3) 25 6-25 [facility] HospitalEstimat Glomerular Filtration Rate 2018-02-05 00:12:00* Test Item Value Reference Range Interpretation Comments Estimat Glomerular Filtration Rate (test code = 57742-3) 60- >60 Ranges were taken from the National Kidney Disease Education Program and the [place] scionhealth[employer] Kidney Foundation literature.Reference ranges:60 or greater: Mclnbv17-74 ( for 3 consecutive months): Chronic kidney disease 15 or less: Kidney failureMemorial Hermann Pearland HospitalGlucose Oopmr0714-12-42 00:12:00* Test Item Value Reference Range Interpretation Comments Glucose Level (test code = XTS2153) 94 74-118 [facility] HospitalCalcium Ugebq3562-26-94 00:12:00* Test Item Value Reference Range Interpretation Comments Calcium Level (test code = 84335-3) 9.0 8.4-10.2 [facility] HospitalTotal Vvdmfoqhd6904-15-28 00:12:00* Test Item Value Reference Range Interpretation Comments Total Bilirubin (test code = 1975-2) 1.0 0.2-1.2 [facility] HospitalAspartate Amino Transf (AST/SGOT) 2018-02-05 00:12:00* Test Item Value Reference Range Interpretation Comments Aspartate Amino Transf (AST/SGOT) (test code = Aspartate Amino Transf (AST/SGOT)) 26 5-34 [facility] HospitalAlanine Aminotransferase (ALT/SGPT) 2018-02-05 00:12:00* Test Item Value Reference Range Interpretation Comments Alanine Aminotransferase (ALT/SGPT) (test code = 1742-6) 30 0-55 [facility] HospitalTotal Pazmutl9691-34-04 00:12:00* Test Item Value Reference Range Interpretation Comments Total Protein (test code = 2885-2) 7.2 6.5-8.1 [facility] HospitalAlbumin2018-06-22 00:12:00* Test Item Value Reference Range Interpretation Comments Albumin (test code = 1751-7) 3.7 3.5-5.0 [facility] HospitalGlobulin2018-06-22 00:12:00* Test Item Value Reference Range Interpretation Comments Globulin (test code = 26873-1) 3.5 2.3-3.5 [facility] HospitalAlbumin/Globulin Uywkq1976-95-65 00:12:00 * Test Item Value Reference Range Interpretation Comments Albumin/Globulin Ratio (test code = 1759-0) 1.1 0.8-2.0 [facility] HospitalAlkaline Useckrafxlr8017-45-34 00:12:00* Test Item Value Reference Range Interpretation Comments Alkaline Phosphatase (test code = 6768-6) 72 40-150 [facility] Transitional Epithelial Cells 2018-02-05 00:12:00* Test Item Value Reference Range Interpretation Comments Urine Transitional Epithelial Cells (test code = 8249-5) FEW NONE H [facility] HospitalUrine Transitional Epithelial Cells 2018-02-05 00:12:00* Test Item Value Reference Range Interpretation Comments Urine Transitional Epithelial Cells (test code = 8249-5) FEW NONE H [facility] HospitalWhite Blood Qruef4710-34-91 00:00:00* Test Item Value Reference Range Interpretation Comments White Blood Count (test code = 6690-2) 8.91 4.8-10.8 [facility] HospitalRed Blood Owouc9493-31-86 00:00:00* Test Item Value Reference Range Interpretation Comments Red Blood Count (test code = 789-8) 4.80 3.6-5.1 [facility] HospitalHemoglobin2018-06-22 00:00:00* Test Item Value Reference Range Interpretation Comments Hemoglobin (test code = 79087-0) 14.4 12.0-16.0 [facility] HospitalHematocrit2018-06-22 00:00:00* Test Item Value Reference Range Interpretation Comments Hematocrit (test code = 4544-3) 41.8 34.2-44.1 [facility] HospitalMean Corpuscular Nyarfu3368-10-98 00:00:00* Test Item Value Reference Range Interpretation Comments Mean Corpuscular Volume (test code = 787-2) 87.1 81-99 [facility] HospitalMean Corpuscular Sgigosocta1092-68-50 00:00:00* Test Item Value Reference Range Interpretation Comments Mean Corpuscular Hemoglobin (test code = 785-6) 30.0 28-32 [facility] HospitalMean Corpuscular Hemoglobin Concent 2018-02-05 00:00:00* Test Item Value Reference Range Interpretation Comments Mean Corpuscular Hemoglobin Concent (test code = 786-4) 34.4 31-35 [facility] HospitalRed Cell Distribution Kraau3717-32-83 00:00:00* Test Item Value Reference Range Interpretation Comments Red Cell Distribution Width (test code = 98314-4) 12.4 11.7 -14.4 [facility] HospitalPlatelet Vwywx2356-05-84 00:00:00* Test Item Value Reference Range Interpretation Comments Platelet Count (test code = 777-3) 236 140-360 [facility] HospitalNeutrophils (%) (Auto)2018-02-05 00:00:00 * Test Item Value Reference Range Interpretation Comments Neutrophils (%) (Auto) (test code = 09848-1) 84.6 38.7-80.0 H [facility] HospitalLymphocytes (%) (Auto)2018-02-05 00:00:00 * Test Item Value Reference Range Interpretation Comments Lymphocytes (%) (Auto) (test code = 736-9) 7.2 18.0-39.1 L [facility] HospitalMonocytes (%) (Auto)2018-02-05 00:00:00* Test Item Value Reference Range Interpretation Comments Monocytes (%) (Auto) (test code = 5905-5) 6.2 4.4-11.3 [facility] HospitalEosinophils (%) (Auto)2018-02-05 00:00:00 * Test Item Value Reference Range Interpretation Comments Eosinophils (%) (Auto) (test code = 713-8) 1.5 0.0-6.0 [facility] HospitalBasophils (%) (Auto)2018-02-05 00:00:00* Test Item Value Reference Range Interpretation Comments Basophils (%) (Auto) (test code = 706-2) 0.2 0.0-1.0 [facility] HospitalIM GRANULOCYTES %2018-02-05 00:00:00* Test Item Value Reference Range Interpretation Comments IM GRANULOCYTES % (test code = IM GRANULOCYTES %) 0.3 0.0- 1.0 [facility] HospitalNeutrophils # (Auto)2018-02-05 00:00:00* Test Item Value Reference Range Interpretation Comments Neutrophils # (Auto) (test code = 751-8) 7.5 2.1-6.9 H [facility] HospitalLymphocytes # (Auto)2018-02-05 00:00:00* Test Item Value Reference Range Interpretation Comments Lymphocytes # (Auto) (test code = 78854-0) 0.6 1.0-3.2 L [facility] HospitalMonocytes # (Auto)2018-02-05 00:00:00* Test Item Value Reference Range Interpretation Comments Monocytes # (Auto) (test code = 742-7) 0.6 0.2-0.8 [facility] HospitalEosinophils # (Auto)2018-02-05 00:00:00* Test Item Value Reference Range Interpretation Comments Eosinophils # (Auto) (test code = 711-2) 0.1 0.0-0.4 [facility] HospitalBasophils # (Auto)2018-02-05 00:00:00* Test Item Value Reference Range Interpretation Comments Basophils # (Auto) (test code = 704-7) 0.0 0.0-0.1 [facility] HospitalAbsolute Immature Granulocyte (auto 2018-02-05 00:00:00* Test Item Value Reference Range Interpretation Comments Absolute Immature Granulocyte (auto (tristan t code = Absolute Immature Granulocyte (auto) 0.03 0-0.1 [facility] HospitalUrine Nsbwj8997-21-14 23:55:00* Test Item Value Reference Range Interpretation Comments Urine Color (test code = 5778-6) YELLOW YELLOW [facility] HospitalUrine Fpxezbb9665-74-67 23:55:00* Test Item Value Reference Range Interpretation Comments Urine Clarity (test code = 60200-6) CLEAR CLEAR [facility] HospitalUrine Specific Yulefej4322-74-77 23:55:00 * Test Item Value Reference Range Interpretation Comments Urine Specific [place] (test code = 5811-5) 1.025 1.010-1.02 5 [facility] HospitalUrine nT4785-84-11 23:55:00* Test Item Value Reference Range Interpretation Comments Urine pH (test code = 59510-9) 6 5-7 [facility] HospitalU[facility] Leukocyte Zwoiatzv5951-04-21 23:55:00* Test Item Value Reference Range Interpretation Comments Urine Leukocyte Esterase (test code = 5799-2) NEGATIVE NEGATIVE [facility] HospitalU[facility] Zojqafp7710-12-31 23:55:00* Test Item Value Reference Range Interpretation Comments Urine Nitrite (test code = 42310-3) NEGATIVE NEGATIVE [facility] HospitalUrine Xsrgquk1186-77-12 23:55:00* Test Item Value Reference Range Interpretation Comments Urine Protein (test code = 5804-0) TRACE NEGATIVE H [facility] HospitalUrine Glucose (UA)2018-02-04 23:55:00* Test Item Value Reference Range Interpretation Comments Urine Glucose (UA) (test code = 2349-9) NEGATIVE NEGATIVE [facility] HospitalUrine Tpzvjku2468-60-84 23:55:00* Test Item Value Reference Range Interpretation Comments Urine Ketones (test code = 48232-4) 3+ NEGATIVE H [facility] HospitalUrine Kkgigyldkkjc8246-71-57 23:55:00* Test Item Value Reference Range Interpretation Comments Urine Urobilinogen (test code = 13900-6) 0.2 0.2-1 [facility] HospitalUrine Glvnkcdir2970-21-36 23:55:00* Test Item Value Reference Range Interpretation Comments Urine Bilirubin (test code = 1978-6) 1+ NEGATIVE H [facility] HospitalUrine Atzay0537-11-19 23:55:00* Test Item Value Reference Range Interpretation Comments Urine Blood (test code = 08793-6) 4+ NEGATIVE H [facility] HospitalUrine Anet8107-78-55 23:54:00* Test Item Value Reference Range Interpretation Comments Urine Test (test code = 2106-3) NEGATIVE NEGATIVE [facility] Inch0293-52-30 23:54:00* Test Item Value Reference Range Interpretation Comments Urine Test (test code = 2106-3) NEGATIVE NEGATIVE [facility] Mlms3948-58-69 23:54:00* Test Item Value Reference Range Interpretation Comments Urine Test (test code = 2106-3) NEGATIVE NEGATIVE [facility] HospitalCARDIAC BKFQWSW1620-74-72 21:58:00<0.02 [facility] VDXAG6592-69-86 21:58:00* Test Item Value Reference Range Interpretation Comments A/G Ratio (test code = A/G Ratio) 1.0 1 0.7-1.6 [facility]annCHE[facility] HYMMX8363-18-66 21:58:00* Test Item Value Reference Range Interpretation Comments B/C Ratio (test code = B/C Ratio) 13 1 6-25 [facility]annCHE[facility] DYJQP8885-45-03 21:58:003.5[facility]annCHEM PANEL 2018-01-12 21:58:0012.2[facility]annCHEM RGFET0849-42-42 21:58:66731Jzrrlteo HermannCHEM HAABJ9895-71-31 21:58:0076[facility]annCHEM YSIJF7212-80-63 21:58:0039[facility]annCHEM JLXUI7530-39-10 21:58:0038[facility]annCHEM WOHLF9438-34-10 21:58:000.7[facility] HermannCHEM VACKS7589-81-58 21:58:0093 [facility]annCHEM FHMZP5939-08-41 21:58:000.78[facility]annCHEM PANEL 2018-01-12 21:58:0010[facility]annCHEM REOLQ3205-21-34 21:58:23738[place] HermannCHEM AQWAH5609-40-09 21:58:008.3[facility]annCHEM GBBXV7914-09-07 21:58:007.0[facility]annCHEM HBRAJ1115-44-09 21:58:003.5[facility]annCHEM JHHEC8706-87-69 21:58:0024[facility]annCHEM RHREN0295-33-15 21:58:87286 [facility]annCHEM EXRZU9659-63-69 21:58:004.2[facility] HermannENDOCRINOLOGY 2018-01-12 21:58:00Negative *NA*(01/12/18 4:58 PM)[facility]annHEMATOLOGY 2018-01-12 21:58:002.4[facility] RbduzqnPTHXDUDHDM5464-22-02 21:58:000.9[facility] NkrlnihTYCOOUONSX2177-75-70 21:58:006.6[facility] OcnqlyoFURMQZMCRA3184-20-15 21:58:005.1[facility] TmkcygnZVGOCIPIUT9696-17-27 21:58:0022.9[facility] EWUSEHQFTK0421-04-36 21:58:000.8[facility] GuskkvcAWXIGUTAZN8495-69-48 21:58:008.8 [facility] LygchtkDUXEMYCMCA0284-75-52 21:58:0062.4[facility] HermannHEMATOLOGY 2018-01-12 21:58:000.5[facility] AbrmxdiHIEVAEITMW2093-89-50 21:58:000.1[facility] NzhadbgEBKTSUEMLV3298-32-96 21:58:009.0[facility] JffypkyFYNKSBMPUT8612-24-31 21:58:004.80[facility] SlviwcoIJRGSIKCUV9728-24-66 21:58:0010.6[facility] LJLEZNDDYR1589-17-40 21:58:0014.2[facility] NgnwhkmBXGYFAXLNT5074-65-76 21:58:00 227[facility] PkbscgkEALNSTPNCZ2092-65-29 21:58:0012.7[facility] HermannHEMATOLOGY 2018-01-12 21:58:0033.4[facility] JbfreaeJMANZWHUTA3946-87-61 21:58:0088.3[facility] OrtbpneWUAGPPYKQK9056-62-05 21:58:0042.4[facility] TstjdldIDYJLSQTVN4075-71-89 21:58:00* Test Item Value Reference Range Interpretation Comments MCH (test code = MCH) 29.5 pg 27.0-31.0 [facility]annCHEM KYFAP4011-25-84 05:53:50698Yegvkobk HermannCHEM PANEL 2016-12-31 05:53:0086[facility]annCHEM EKGHV2373-00-25 05:53:23404Ijystdzm HermannCHEM WMWPK9983-20-23 05:53:009[facility]annCHEM ANGLX2106-13-06 05:53:000.74[facility]annCHEM BIRFZ9053-57-05 05:53:007.1[facility] HermannCHEM EEACA4493-81-85 05:53:0025[facility]annCHEM TQZWW0017-70-23 05:53:008.7 [facility]annCHEM BAXWJ0584-69-48 05:53:003.8[facility] HermannCHEM PANEL 2016-12-31 05:53:63517Gpneimln HermannCHEM VWZBU9563-55-72 05:53:0013[facility]annCHEM IVCXV6696-09-84 05:53:0083[facility]annCHEM SZUWA4205-53-47 05:53:003.5[facility]annCHEM KMZKV5090-10-30 05:53:0022[facility]annCHEM DBTBB8313-66-61 05:53:000.4[facility]annCHEM MTLGG2558-57-96 05:53:0012 [facility]annCHEM IPQAU4535-58-40 05:53:003.6[facility] HermannCHEM PANEL 2016-12-31 05:53:001.0[facility]annCHEM MDVHK8817-80-12 05:53:0011.8[facility]annCHEM MZFZK1494-79-29 05:53:63887Pfjpagic PzwlfsiAXMXTNMWXJVCZ8649-04-62 05:53:00Negative *NA*(12/31/16 12:53 AM)[facility] EtpvvvtJRKMWBYTQT7041-85-93 05:53:0053.9[facility] FlkhvleDWGPSBWTVT2212-83-91 05:53:004.9[facility] CFZPZMPWYV4535-99-13 05:53:001.2[facility] WnpgocbAAEEJIKIUW9525-52-90 05:53:005.0 [facility] WgkvacsXHQSIWEWCR5710-54-40 05:53:0031.8[facility] HermannHEMATOLOGY 2016-12-31 05:53:008.2[facility] QpokidzRLVGIRTOZN9622-27-35 05:53:000.1[facility] LwoaeeoLKRDEKNDDU7109-91-55 05:53:003.0[facility] PmghhquEUWILYYDUI9912-44-05 05:53:000.8[facility] BffxxutAGFEZEZJHU1665-29-35 05:53:000.5[facility] LXJZSQFZWY6981-06-40 05:53:009.6[facility] VkgvbtgJGVRFYRHUO0521-07-52 05:53:00 33.1[facility] BxnniuhKHARBDVVXT9462-84-56 05:53:0012.4[facility] HermannHEMATOLOGY 2016-12-31 05:53:92176Cjlqbiys NwifmwzLZXWGBSGJP9561-77-69 05:53:0089.8[facility] JwrozkvQOEQHRWWQL9522-21-13 05:53:00* Test Item Value Reference Range Interpretation Comments MCH (test code = MCH) 29.7 pg 27.0-31.0 [facility] UizgpemYZASNKKTHW1322-32-17 05:53:0045.3[facility] HermannHEMATOLOGY 2016-12-31 05:53:009.3[facility] LunjirjYIYENHZSLH0746-31-26 05:53:005.04[facility] UxhdxikGRLUGJSLEQ5456-17-65 05:53:0015.0[facility]annURINE AND STOOL 2016-12-31 05:53:0033[facility]annUR[facility] AND LQEKZ1336-54-57 05:53:0027 [facility] AND HXYYK3997-24-04 05:53:00Trace *ABN*(12/31/16 12:53 AM) [facility] KMLNV6662-70-80 05:53:00Large *ABN*(12/31/16 12:53 AM) [facility] ZVTIN9611-01-44 05:53:00Moderate *ABN*(12/31/16 12:53 AM)[facility] ZSAUN2089-03-73 05:53:00Amber *ABN*(12/31/16 12:53 AM)[facility] ZPMQA8410-82-32 05:53:00Positive *ABN*(12/31/16 12:53 AM)[facility] OUSGZ3834-12-19 05:53:002.0[facility] URINE AND QIIHE9669-74-99 05:53:00Trace *ABN*(12/31/16 12:53 AM)[facility] URINE AND DVKSR0300-23-21 05:53:00Cloudy *ABN*(12/31/16 12:53 AM)[facility] URINE AND VPEKY2402-45-08 05:53:00* Test Item Value Reference Range Interpretation Comments UA Spec Grav (test code = UA Spec Grav) 1.025 1 [facility] AND UEDMS0856-10-02 05:53:00* Test Item Value Reference Range Interpretation Comments UA pH (test code = UA pH) 6.5 1 5.0-8.0 [facility] BAEEI6153-38-78 05:53:00Negative (12/31/16 12:53 AM) [facility]annCHEM ZIDRI1981-50-79 20:32:32495Feqmymdp HermannCHEM PANEL 2016-12-25 20:32:0096[facility]annCHEM RQYQP1861-46-66 20:32:003.9[facility] HermannCHEM QXOFX8441-52-54 20:32:0025[facility]annCHEM GOGPL9068-92-19 20:32:000.9[facility]annCHEM BBPON2472-84-54 20:32:0016[facility]annCHEM JYBFC3000-28-72 20:32:0094[facility]annCHEM RIPNL5434-13-10 20:32:000.82 [facility]annCHEM EYVAL3472-95-63 20:32:0012[facility] HermannCHEM PANEL 2016-12-25 20:32:52871Jfbrdjof HermannCHEM EEPVC1836-79-83 20:32:77710Ixvnghrp HermannCHEM YYIYN7964-09-13 20:32:003.8[facility]annCHEM TFUPV4164-14-50 20:32:007.9[facility]annCHEM PMRAS7719-99-49 20:32:008.8[facility] HermannCHEM NDXKS5494-56-18 20:32:0024[facility]annCHEM QWAAG2297-84-23 20:32:0082 [facility]annCHEM JRNGV3626-92-03 20:32:0013.8[facility] HermannCHEM PANEL 2016-12-25 20:32:0015[facility] HermannCHEM GVXZR8479-81-58 20:32:001.0[facility] HermannCHEM QCKVN6948-58-35 20:32:004.0[facility] HbjzcbyQOXBFSSWQQ2603-52-29 20:32:00* Test Item Value Reference Range Interpretation Comments PTT (test code = PTT) 32.0 s 22.9-35.8 [facility]yprMMHEZAOCYS6854-79-76 20:32:001.10[facility]annHEMATOLOGY 2016-12-25 20:32:00* Test Item Value Reference Range Interpretation Comments PT (test code = PT) 14.4 s 12.0-14.7 [facility] GxefqapQJIANGVXII5381-86-94 20:32:0015.1[facility] HermannHEMATOLOGY 2016-12-25 20:32:0045.6[facility] TbrmqwqSSVYUFUAAB8638-33-63 20:32:0089.9[facility] WbbgqwgLVGODZMTMC3350-75-66 20:32:00* Test Item Value Reference Range Interpretation Comments MCH (test code = MCH) 29.8 pg 27.0-31.0 [facility] JsqxzkxTXAQDCIRJN7468-53-75 20:32:0010.7[facility] HermannHEMATOLOGY 2016-12-25 20:32:005.08[facility] GtsqeotLMKXBWDHEO9157-52-44 20:32:0033.2[facility] AjnzohiJXDIEKANKD6463-40-32 20:32:0012.7[facility] ZvxxbgmBCUPNPWOHO7726-96-73 20:32:009.3[facility] QetvfqpTJPRRVPCBM3331-89-15 20:32:33259Czlcrcft Charles OUFEQSALSQ4586-10-79 20:32:001.9[facility] OqphvsnMFLTZCLMHA4031-84-19 20:32:000.7 [facility] TlgjesxTVUAREKQWV4322-07-35 20:32:006.7[facility] HermannHEMATOLOGY 2016-12-25 20:32:002.5[facility] YrfyfwqDEMIVKWYKQ3168-95-80 20:32:000.7[facility] KiqygawZTVRDWQWVE2870-59-51 20:32:007.2[facility] TpiszokREFUXAZBXE0577-90-81 20:32:000.2[facility] DltidtlUVZYPNHYQL7154-13-34 20:32:000.1[facility] BKEVGIRIJD0138-34-36 20:32:0067.6[facility] RnvgawdIPQPAWPXVS1942-63-75 20:32:00 23.1[facility] HermannCHEM LTUTN9570-74-32 01:59:78467Ghcmghsh HermannCHEM PANEL 2016-07-20 01:59:001.0[facility] HermannCHEM UYHXA9414-56-72 01:59:003.9[facility]annCHEM XBVGB1084-35-21 01:59:0010[facility]annCHEM SKKRF2692-13-37 01:59:0013.0[facility] HermannCHEM HMUIL6965-20-24 01:59:0018[facility] HermannCHEM HFUVH5967-76-56 01:59:0024[facility]annCHEM UBDUC4019-94-09 01:59:52749 [facility]annCHEM IROFG9653-51-97 01:59:003.9[facility] HermannCHEM PANEL 2016-07-20 01:59:007.8[facility] HermannCHEM TPSLP1520-69-41 01:59:008.7[facility] HermannCHEM EZXKO0501-91-63 01:59:000.3[facility] HermannCHEM UKIAW2724-61-75 01:59:0079[facility]annCHEM YOZRM5123-32-81 01:59:000.70[facility]annCHEM SKRJT5184-61-47 01:59:007[facility]annCHEM ZVYIJ9906-86-33 01:59:0028[facility]annCHEM CNAGW2378-68-13 01:59:85749Vkqtvjql HermannCHEM NCTKS9113-79-54 01:59:004.0[facility] HermannCHEM NCUPH7071-43-16 01:59:13552Jiyuapru HermannCHEM WCSNT4202-53-00 01:59:0084[facility] WsqokgbRFWXAAYGOX5792-45-43 01:59:0012.6 [facility] AyrchgqATTCIAQNUE7638-69-78 01:59:22936Npucuzdm HermannHEMATOLOGY 2016-07-20 01:59:0015.3[facility] KefezjcUOZXXIUBUV4881-85-92 01:59:005.08[facility] WaaddmrVXJJBSFAVS8456-10-66 01:59:0010.8[facility] MevuutiXLWKSGZQSG7953-64-67 01:59:008.9[facility] AbtesyeATTLLWOPKJ5421-15-02 01:59:0088.5[facility] VODTBDFGYG0081-40-60 01:59:0044.9[facility] BxdpmmmQGCDVAJYGU3777-88-43 01:59:00* Test Item Value Reference Range Interpretation Comments MCH (test code = MCH) 30.1 pg 27.0-31.0 [facility] FpjzritHAETFWJWHX3638-94-95 01:59:0034.0[facility] HermannHEMATOLOGY 2016-07-20 01:59:000.6[facility] MnjqxmsYCODLQTPRO5611-46-80 01:59:000.1[facility] InummouQHCBCIHJHR9912-11-68 01:59:002.6[facility] UrgifsrUSSJLCUOBC9561-68-49 01:59:000.5[facility] ZyjpyzpJTXFPIPNAE8411-06-83 01:59:007.0[facility] KHKJRUEGSC9386-81-00 01:59:005.6[facility] HjzjfpdZXLIISERSG3177-53-11 01:59:000.9 [facility] GmwhtmjNZAKFIRFBN5543-09-15 01:59:004.6[facility] HermannHEMATOLOGY 2016-07-20 01:59:0065.0[facility] KlnocsaGBEJWTZYUA2345-75-25 01:59:0023.9[facility]annURINE AND DKNBO4512-48-92 01:59:008.0[facility]URINE AND STOOL 2016-07-20 01:59:00Clear (07/19/16 7:59 PM)[facility] STOOL 2016-07-20 01:59:001.005[facility]annUR[facility] AND KVBCI0375-92-63 01:59:00 Negative (07/19/16 7:59 PM)[facility] AND WQEOZ3811-76-46 01:59:00 Small *ABN*(07/19/16 7:59 PM)[facility] FXVPQ6809-41-71 01:59:00 Negative (07/19/16 7:59 PM)[facility] ORCSL7060-41-27 01:59:00 Negative *NA*(07/19/16 7:59 PM)[facility] HWSBP2140-60-05 01:59:00 <1[facility] AND LFCZM8119-37-74 01:59:001[facility]annURINE CHEM 2016-07-20 01:59:00Negative (07/19/16 7:59 PM)[facility] HermannCHEM PANEL 2016-04-14 06:13:000.66[facility] HermannCHEM FSCEY9056-35-32 06:13:003.7[facility] HermannCHEM BITCA4700-89-24 06:13:93441Qyvzljyp HermannCHEM WIEJL8951-92-65 06:13:0087[facility] HermannCHEM EIVKB4272-10-63 06:13:0013[facility] HermannCHEM AITEI6666-77-22 06:13:66202Hvanmbjh HermannCHEM OMJGO6084-50-62 06:13:0022 [facility]annCHEM XWEEG6963-04-89 06:13:003.8[facility] HermannCHEM PANEL 2016-04-14 06:13:0026[facility] HermannCHEM HMKPH8141-98-84 06:13:85766Ffuxxwty HermannCHEM NIFVY2995-36-32 06:13:000.3[facility] HermannCHEM SZEMK8314-50-08 06:13:0072[facility] HermannCHEM SSAZH0023-27-45 06:13:0013[facility] HermannCHEM SUDFZ0439-02-35 06:13:007.4[facility] HermannCHEM ZPYJN1685-48-12 06:13:008.3 [facility]annCHEM JPBDD4061-91-48 06:13:003.6[facility] HermannCHEM PANEL 2016-04-14 06:13:001.1[facility] HermannCHEM HPDWM5728-92-24 06:13:0020[facility] HermannCHEM VEPHB5737-37-18 06:13:008.7[facility] HermannCHEM NKRMV4894-10-43 06:13:64305Tqrgkbbv HermannCHEM GKWQD2722-57-38 06:13:0045[facility] OPWGMZQXXS7470-31-16 06:13:00* Test Item Value Reference Range Interpretation Comments MCH (test code = MCH) 29.2 pg 27.0-31.0 [facility] KeplldqKSDFZCXCNJ0000-42-02 06:13:0087.0[facility] HermannHEMATOLOGY 2016-04-14 06:13:0040.7[facility] DvqmfvgBINHSFUBBB1887-94-45 06:13:0013.6[facility] IefuuyzRMRYHQCGZB4174-33-62 06:13:004.67[facility] NtefacbEMKLAWOGRX8491-77-23 06:13:008.6[facility] IejjtjcLEGUMTMAWZ1274-94-45 06:13:02613Hcabbhdl [place] YNTHZCKGQF7499-65-00 06:13:0033.6[facility] ErmzdomJKWBYMTNLB0259-99-23 06:13:00 13.0[facility] GojwufzMEFMTXMZFA1512-98-22 06:13:0011.2[facility] HermannHEMATOLOGY 2016-04-14 06:13:000.9[facility] AiqqcbhWUOAIOQNMX6285-12-50 06:13:003.3[facility] JkdzjdbAGFEFFSHEU1796-96-96 06:13:006.3[facility] MadzavtBBODREQBWL3917-81-60 06:13:000.8[facility] TacwxcoGCWSVZDGMA8932-26-17 06:13:005.9[facility] BEQRYKOBWF6673-74-29 06:13:008.2[facility] SfrpiloHEGEGSEXTO0183-21-45 06:13:00 29.1[facility] IwbikquLOCSWJVWFH9062-99-42 06:13:0056.0[facility] HermannHEMATOLOGY 2016-04-14 06:13:000.1[facility] GvffihjNUVGWJJJSF3431-67-29 06:13:000.7[facility]annURINE AND QZMTQ2841-40-31 06:13:00Large *ABN*(04/14/16 1:13 AM)[facility] AND PNSKA9565-90-11 06:13:00Negative *NA*(04/14/16 1:13 AM)[facility] LWVAZ4193-14-90 06:13:005.0[facility]UR[facility] AND STOOL 2016-04-14 06:13:001.020[facility]UR[facility] AND SPOKQ0240-38-00 06:13:00Slight *ABN*(04/14/16 1:13 AM)[facility] OMDWF0666-17-78 06:13:00 Negative (04/14/16 1:13 AM)[facility] QLVRS8409-61-28 06:13:007 [facility] GGABL6596-07-15 06:13:003[facility] WYAUZ4432-88-97 06:13:00Trace *ABN*(04/14/16 1:13 AM)[facility] ETGGH3414-54-63 06:13:00Yellow *NA*(04/14/16 1:13 AM)[facility] CHEM 2016-04-14 06:13:00Negative (04/14/16 1:13 AM)[facility] STOOL 2016-02-24 05:51:007[facility] ITSTN7595-49-98 05:51:00Negative *NA*(02/24/16 12:51 AM)[facility] IDSPA1312-23-13 05:51:00Trace *ABN*(02/24/16 12:51 AM)[facility] PHNQZ4738-45-49 05:51:002.0 [facility] BJZOC6349-52-51 05:51:00Negative (02/24/16 12:51 AM) [facility] UZZGR2774-80-19 05:51:00Small *ABN*(02/24/16 12:51 AM) [facility] ARBPF3678-97-01 05:51:008[facility] SXWOH1406-07-07 05:51:00Clear (02/24/16 12:51 AM)[facility] STOOL 2016-02-24 05:51:001.027[facility] NLUQX6793-53-55 05:51:007.0 [facility] JENQ7894-68-85 05:51:00Negative (02/24/16 12:51 AM)[facility] AOBFY2989-39-42 04:28:0081[facility] DNFRL5824-43-32 04:28:0032[facility] GVJPI2377-33-75 04:28:0024[facility]annCHE[facility] YHSYW3172-57-46 04:28:80527Gzqyyefj HermannCHEM BHKHK8877-29-45 04:28:000.6 [facility] TMTFK9675-80-97 04:28:000.74[facility]ann[facility] PANEL 2016-02-24 04:28:0010[facility]CHE[facility] JBEJP0528-88-11 04:28:0087[facility] IKRYN6010-78-18 04:28:00See Note 1(02/23/16 11:28 PM)[facility] HTOCS0037-37-43 04:28:53085Xcvkoojn HermannCHEM DODEB7015-67-01 04:28:008.8 [facility] TREAH5277-60-48 04:28:0026[facility]annCHE[facility] PANEL 2016-02-24 04:28:24164Fieusokj HermannCHEM YSJCG2971-53-67 04:28:0014[facility]annCHE[facility] FXHCW8846-33-83 04:28:008.0[facility] YXJFZ9602-20-03 04:28:000.9[facility]annCHE[facility] ZGQZR8552-09-63 04:28:004.2[facility]CHE[facility] PVDWU2524-30-80 04:28:003.8[facility]annCHE[facility] DKMMA1100-26-32 04:28:36643 [facility] LITFT4598-08-09 04:28:0045[facility]annHEMATOLOGY 2016-02-24 04:28:0044.3[facility] KyacxvvEWNYZFZQQC4245-37-48 04:28:0014.4[facility] AgmojddBYNCAOXTYU1137-63-68 04:28:004.96[facility] BnvpclkDQXSDXLZKO7029-16-74 04:28:0012.3[facility] TyjkfapKSOXJXAZPB4867-60-15 04:28:0089.3[facility] PSGTPRCMCG9744-55-43 04:28:45307Lmgqatgn KzfhwlpIEALTXBENW9965-89-08 04:28:00 13.1[facility] JmaflhdPHPBRHVTOX9906-53-78 04:28:0032.4[facility]annHEMATOLOGY 2016-02-24 04:28:00* Test Item Value Reference Range Interpretation Comments MCH (test code = MCH) 29.0 pg 27.0-31.0 [facility] RwgfdgzBWUBMFDDVP2840-22-17 04:28:008.7[facility]annHEMATOLOGY 2016-02-24 04:28:0062.1[facility] UkzrhqmNPWZSVGUJL7093-12-02 04:28:000.8[facility] RhxuhwwRFVUTFJMJE5122-87-04 04:28:004.6[facility] AaldltqDXQTGLEBHH2932-90-70 04:28:007.6[facility] PkmknlePWFZDQIBYK4506-72-73 04:28:0024.9[facility] FGEJIFYFQZ1499-39-85 04:28:007.7[facility] BawraohORLWGTGDSB5430-22-28 04:28:000.6 [facility] ZqltbeeHTBYODOCXS7333-92-86 04:28:003.1[facility]annHEMATOLOGY 2016-02-24 04:28:000.1[facility] JrblmvuXOUXSEINDI7509-72-43 04:28:000.9[facility]annCHEM LPODM4331-26-56 02:50:18990Josiwjes HermannCHEM IXVNG4837-75-00 02:50:004.1[facility]annCHEM WZSRE3422-47-21 02:50:000.9[facility]annCHE[facility] QVDDU1276-89-48 02:50:0011.0[facility]annCHE[facility] PLKQT2883-93-91 02:50:0011 [facility]annCHE[facility] CILWV0404-33-80 02:50:09889Bxxndnao HermannCHEM PANEL 2016-01-17 02:50:007.9[facility]annCHE[facility] EWODB8057-54-14 02:50:0016[facility]annCHE[facility] NYZYB8213-57-38 02:50:000.4[facility]annCHE[facility] IJRES6760-82-01 02:50:004.0[facility]annCHE[facility] QBXUC8116-44-21 02:50:0027[facility]annCHEM PDDFH0336-14-68 02:50:11594Dsbmhhgx HermannCHEM IBDUS9495-32-91 02:50:008.5 [facility] SDJFR0145-18-74 02:50:08696Gjybujwy HermannCHEM PANEL 2016-01-17 02:50:0084[facility]annCHEM PXLCH5495-43-85 02:50:0088[facility]annCHEM OHWOO7870-41-91 02:50:000.66[facility]annCHEM YGBNV9284-55-30 02:50:007[facility]annCHEM QZLVX0705-78-20 02:50:003.8[facility]annCHEM FDXMQ5757-01-17 02:50:0027[facility] VheiuvgAISBOTOKYI6820-60-10 02:50:006.4 [facility] AbrftrwRMSKAIZJQF3340-88-85 02:50:002.4[facility] HermannHEMATOLOGY 2016-01-17 02:50:000.6[facility] QdzwutaUTXHWQCZBH3487-21-23 02:50:000.4[facility] UvmgeapFEJZYZOZLI1163-29-92 02:50:000.1[facility] PpmerinMOJWGYNXQU5211-33-92 02:50:006.3[facility] ZpisyvvSTLELXOSLY7810-58-15 02:50:004.5[facility] OUHQTCWQFL8588-94-24 02:50:000.9[facility] NjksebwJKPFBEUREL4567-37-76 02:50:00 24.2[facility] CsmbyjzZDCHSAELIM5282-47-79 02:50:0064.1[facility]annHEMATOLOGY 2016-01-17 02:50:008.4[facility] BhiybdvTULBCABRHO9930-74-98 02:50:0089.2[facility] DwkpghqUWMMVGQIYD2637-47-29 02:50:00* Test Item Value Reference Range Interpretation Comments MCH (test code = MCH) 29.7 pg 27.0-31.0 [facility] IeegdwkMZHVZTKGBX4206-34-38 02:50:0033.3[facility]annHEMATOLOGY 2016-01-17 02:50:0013.2[facility] RvvgwwwAOCXZAYCGI4683-70-96 02:50:0014.9[facility] XwlkrvdCVRNSERVDF9525-58-19 02:50:0044.7[facility] LfcxsetSZKDZWGDLE8566-77-93 02:50:005.01[facility] FksderwVQPASYPDMB7308-71-65 02:50:76872[place] OMTINPWEWD4567-68-49 02:50:0010.0[facility] MMXZO7367-70-23 02:15:00Negative (01/16/16 9:15 PM)[facility] VHDNS6258-99-94 02:15:00Negative (01/16/16 9:15 PM)[facility] CRWMM4717-90-99 02:15:00* Test Item Value Reference Range Interpretation Comments UA Spec Grav (test code = UA Spec Grav) 1.015 1 [facility] ESIAQ1802-82-17 02:15:00* Test Item Value Reference Range Interpretation Comments UA pH (test code = UA pH) 7.5 1 5.0-8.0 [facility] EUDQI0318-35-35 02:15:00Negative (01/16/16 9:15 PM) [facility] BJUSE5228-36-29 02:15:00Clear (01/16/16 9:15 PM)[facility] ZSQZR3698-95-27 02:15:00Yellow *NA*(01/16/16 9:15 PM)[facility] VZTHF5359-38-84 02:15:000.2[facility] STOOL 2016-01-17 02:15:00Negative (01/16/16 9:15 PM)[facility] STOOL 2016-01-17 02:15:00Large *ABN*(01/16/16 9:15 PM)[facility] STOOL 2016-01-17 02:15:00Negative *NA*(01/16/16 9:15 PM)[facility] STOOL 2016-01-17 02:15:00Negative *NA*(01/16/16 9:15 PM)[facility] CHEM 2016-01-17 02:15:00Negative (01/16/16 9:15 PM)[facility] STOOL 2015-10-13 09:42:00Slight *ABN*(10/13/15 3:42 AM)[facility] STOOL 2015-10-13 09:42:001.026[facility] MYXGP4287-31-52 09:42:006.0 [facility] EPKGQ9451-40-53 09:42:007[facility] EJNOI2229-72-99 09:42:006[facility] RJPYE1498-18-84 09:42:00 Negative (10/13/15 3:42 AM)[facility] LTQHL9229-91-56 09:42:00 Negative (10/13/15 3:42 AM)[facility] UYQEL2292-75-70 09:42:00 Large *ABN*(10/13/15 3:42 AM)[facility] KZZNH5797-37-00 09:42:00 Negative *NA*(10/13/15 3:42 AM)[facility] FJCQ2953-00-18 09:42:00 Negative (10/13/15 3:42 AM)[facility]annCHEM GBGDA1937-42-28 08:33:003.9 [facility]annCHEM OZPUG5324-53-83 08:33:001.0[facility]annCHEM PANEL 2015-10-13 08:33:0013[facility]annCHEM QOCJF4227-41-92 08:33:009.5[facility]annCHEM GQYFU6656-21-23 08:33:83626Aefgkdjx HermannCHEM SUTHR3164-03-22 08:33:000.7[facility]annCHEM UZNUS1113-42-98 08:33:0079[facility]annCHEM HOJYS1854-36-23 08:33:0023[facility]annCHEM TAPMD2915-29-27 08:33:0035 [facility]annCHE[facility] ESHVQ4131-47-51 08:33:003.8[facility]annCHEM PANEL 2015-10-13 08:33:007.7[facility]annCHEM KHWBI5792-41-32 08:33:008.8[facility]annCHEM ELRDE7564-41-30 08:33:0028[facility]annCHEM NYJCE9068-69-60 08:33:83853Phvwhssl HermannCHEM AFAZA0522-07-19 08:33:003.5[facility]annCHEM YHTRW1304-47-10 08:33:000.70[facility]annCHEM NDUPS7972-29-81 08:33:009 [facility]annCHEM JRQPU1017-60-48 08:33:0094[facility]annCHEM PANEL 2015-10-13 08:33:89952Lnnpgxdt HermannCHEM SRSCW6593-64-68 08:33:0050[facility]annCHEM SXCFP9314-07-08 08:33:77714Rkmymrsh XtattpvMMGTAEQZMT3332-78-69 08:33:52154Zkpejtjh DnybfvlECTHJKKUBB8523-24-76 08:33:009.7[facility] DVZWUVIEPR9179-98-66 08:33:0033.4[facility] YqbyyyrIYTPUZZEKH9308-40-45 08:33:00 12.5[facility] AammqsiCWLCVDDAMR4245-07-15 08:33:009.9[facility] HermannHEMATOLOGY 2015-10-13 08:33:005.04[facility] DpslarfBPFDHJZZHI9138-24-06 08:33:0015.1[facility] XkfzjipOTYNPABQTC4441-88-05 08:33:00* Test Item Value Reference Range Interpretation Comments MCH (test code = MCH) 29.9 pg 27.0-31.0 [facility] EiqhvgnWYHLBOJCVR2006-76-22 08:33:0045.2[facility] HermannHEMATOLOGY 2015-10-13 08:33:0089.7[facility] PhkkxxzQEFLSYHIJV8682-04-22 08:33:000.6[facility] JfpumweUSMHMCOQRA2417-31-19 08:33:000.1[facility] EjvcqucJNLJJGBGWT8235-31-88 08:33:003.2[facility] ZrqjxouRFUXKQMIFM2245-03-39 08:33:000.8[facility] BUDDOCDLEV8789-81-33 08:33:005.1[facility] CfztltnGBCKWJSZKD1117-75-93 08:33:001.0 [facility] WgcqgowNXIYURCTVB9009-11-67 08:33:008.5[facility]annHEMATOLOGY 2015-10-13 08:33:006.2[facility] FiibjshKBBPGXJPMM8455-12-14 08:33:0051.7[facility] SfbdnqwBRTZDCGCUO5202-56-83 08:33:0032.6[facility] KaeytoyAOCKTWGYLYQE1262-26-66 08:31:003.6[facility] HermannCHEM TBJEB1632-77-58 07:16:98820Hrnwyklt HermannCHEM PLPOG5695-47-98 07:16:0057[facility]annCHEM ENGAP2211-51-68 07:16:0034 [facility]annCHEM DSXPV9502-02-03 07:16:000.8[facility] HermannCHEM PANEL 2015-07-04 07:16:004.2[facility]annCHEM KDSBP9513-18-39 07:16:000.7[facility]annCHEM SKGFY3143-36-50 07:16:0080[facility]annCHEM EHBBW6412-36-62 07:16:48368Matrlkua HermannCHEM EMUHI3053-33-60 07:16:12759Bubgrpav HermannCHEM LGJWW1173-85-06 07:16:00See Note 1(07/04/15 1:16 AM)[facility]annCHEM PANEL 2015-07-04 07:16:0011[facility]annCHEM NQTDK7065-23-10 07:16:000.74[facility]annCHEM OYBKL5696-77-63 07:16:0085[facility]annCHEM NOGMJ9605-90-25 07:16:007.7[facility]annCHEM DRHYJ7091-09-92 07:16:003.5[facility]annCHEM FBTOB4523-97-61 07:16:0015[facility]annCHEM HCBUS4958-23-82 07:16:008.7 [facility]annCHEM MNENQ6361-26-64 07:16:0024[facility]annCHEM PANEL 2015-07-04 07:16:45670Mmznbgmo QrubxvgAEJYJMSQYG1719-71-95 07:16:000.1[facility] VpsymujBCIQJBSGRU9960-03-86 07:16:000.7[facility] TndbnhsYZVZWFIEUT2449-92-29 07:16:002.7[facility] WwvfoxsCVDFAMSSIC0472-78-81 07:16:007.5[facility] KDWCOKPWDW4045-67-51 07:16:001.0[facility] EvvtinwCDFOFATMUD1374-31-54 07:16:005.5 [facility] IcihzauYDTIXSCPNU2801-37-30 07:16:001.0[facility] HermannHEMATOLOGY 2015-07-04 07:16:008.3[facility] PlfrstwSRVVQCCKBB7057-40-56 07:16:0022.4[facility] CoogjgeQAYDGIJVDK0730-06-80 07:16:0062.8[facility] VyesuxaTUVGFOOAAT7746-67-37 07:16:00* Test Item Value Reference Range Interpretation Comments MCH (test code = MCH) 29.5 pg 27.0-31.0 [facility] UztvoilYUIHYQLJDH0037-82-03 07:16:009.4[facility] HermannHEMATOLOGY 2015-07-04 07:16:02604Aogrdmtf UsypublNVZXDBWBNE9071-72-41 07:16:0012.7[facility] PengvsjUDWAONUVWC3950-60-11 07:16:0032.5[facility] BqseuaxYUOHYBCHXU2904-52-52 07:16:0090.7[facility] GjpuuhaIWLUFMDSJW1497-17-32 07:16:0043.1[facility] LPDFPGSEGQ5214-32-92 07:16:0014.0[facility] IvtcautAVRAHZMKHS6671-34-67 07:16:00 4.76[facility] BmejlljNXUOXSHXYH5732-56-71 07:16:0012.0[facility] UMIOB0509-66-37 07:16:001[facility] PZBIL7825-73-99 07:16:00 Negative (07/04/15 1:16 AM)[facility] UUNYD3606-03-45 07:16:00 Small *ABN*(07/04/15 1:16 AM)[facility] ZDEDU5213-83-26 07:16:00 Negative (07/04/15 1:16 AM)[facility] LPTXF6458-11-77 07:16:004 [facility] XBQAB3285-54-50 07:16:007.0[facility] OOBSC9401-30-76 07:16:00Negative *NA*(07/04/15 1:16 AM)[facility] CZDNE0898-67-32 07:16:00Yellow *NA*(07/04/15 1:16 AM)[facility] HLBZK7954-13-48 07:16:001.027[facility] QHEUW3593-31-27 07:16:00 Marked *ABN*(07/04/15 1:16 AM)[facility] RHWQ5436-10-80 07:16:00 Negative (07/04/15 1:16 AM)[facility] ELDSN2612-33-06 07:36:002 [facility] CQYAY3531-32-63 07:36:00Negative (05/17/15 2:36 AM) [facility] OHTNH2939-20-63 07:36:00<1[facility] YZSGH2542-01-49 07:36:00Negative (05/17/15 2:36 AM)[facility] BWWGT0875-90-74 07:36:00Small *ABN*(05/17/15 2:36 AM)[facility] XRNUP0600-98-59 07:36:00Negative *NA*(05/17/15 2:36 AM)[facility] WSPLA0205-10-93 07:36:00Yellow *NA*(05/17/15 2:36 AM)[facility] OTDWW0936-90-80 07:36:00Clear (05/17/15 2:36 AM)[facility] STOOL 2015-05-17 07:36:001.016[facility] FRUFI0222-76-09 07:36:006.0 [facility] KNHO2363-00-10 07:36:00Negative (05/17/15 2:36 AM)[facility] HermannMOLECULAR ZHGKMYIEBR8036-42-38 12:19:00Negative *NA*(05/15/15 7:19 AM) [facility]annMOLECULAR FALJNYGFKS1136-06-99 12:19:00Endocervix *NA*(05/15/15 7:19 AM)[facility]annMOLECULAR FQSGIOAZEG8304-45-40 12:19:00Endocervix *NA*(05/15/15 7:19 AM)[facility]annMOLECULAR YOQOFNJKTH4091-10-99 12:19:00 Negative *NA*(05/15/15 7:19 AM)[facility]annCHEM KZVJX8502-70-83 07:57:003.5 [facility]annCHEM IEKPS8796-67-05 07:57:001.1[facility] HermannCHEM PANEL 2015-05-15 07:57:009[facility]annCHEM GECVU9666-81-51 07:57:0011.4[facility]annCHEM GCAOK9208-91-90 07:57:007[facility]annCHEM YQCNM9461-06-43 07:57:0087[facility]annCHEM YXNKO3323-59-48 07:57:007.3[facility]annCHEM EQCFY3924-56-23 07:57:0032[facility]annCHEM LEBFW9295-00-13 07:57:0024 [facility]annCHE[facility] GDFPF2769-89-73 07:57:003.8[facility]annCHEM PANEL 2015-05-15 07:57:0087[facility]annCHEM PHSPP8584-08-68 07:57:0016[facility]annCHEM LFVFC4251-49-20 07:57:000.7[facility]annCHEM OHOAX4506-45-45 07:57:10586Vcfbtmdu HermannCHEM SHSHY6324-42-59 07:57:06527Txglzvfe [facility]annCHEM VOWTB8942-57-97 07:57:003.4[facility]annCHEM KVQHC0230-86-57 07:57:008.6 [facility]annCHEM MFGDO9703-85-20 07:57:55080Ayglwaui HermannCHEM PANEL 2015-05-15 07:57:000.8[facility] AyqvyfiXVJSTBAOPC2268-18-71 07:57:09741Rxdyfmef HuefoobASRDQIIOZO6595-43-09 07:57:0013.1[facility] MicqcnxWLQUBXFIPR7145-82-31 07:57:008.9[facility] OimlagsJBDPYMRZLH1616-25-57 07:57:0013.5[facility] [place] FZNQVVAEQO4321-61-08 07:57:0014.1[facility] TcvmgshWLLKKPRKOH9507-90-94 07:57:00 4.85[facility] BaqeceaCJTMQUCLMK9697-66-00 07:57:0044.3[facility] HermannHEMATOLOGY 2015-05-15 07:57:0091.4[facility] SuedctuLDNBMPAEPE9775-36-68 07:57:00* Test Item Value Reference Range Interpretation Comments MCH (test code = MCH) 29.1 pg 27.0-31.0 [facility] SnwijoeQNSSYNCWGJ1827-47-58 07:57:0031.9[facility] HermannHEMATOLOGY 2015-05-15 07:57:0061.6[facility] QhhsfuuSIVDOXJHRX4457-47-51 07:57:003.3[facility] SvetvunPPRMPIPEBF9714-31-02 07:57:000.7[facility] ZyeqmclRJJEEBXVZZ4763-63-88 07:57:001.0[facility] ZserojmDGPBEPFSFE2064-55-24 07:57:000.2[facility] APZEFLQRKA6061-43-71 07:57:007.1[facility] NlhkejxDOHCINBBKT4821-67-17 07:57:00 24.6[facility] EykoakhHARYMTARYR5048-52-51 07:57:008.3[facility] HermannHEMATOLOGY 2015-05-15 07:57:001.2[facility] VcfuxynRJEAETLGVL7648-70-48 07:57:005.5[facility] AAKAW7766-73-39 07:57:001[facility] STOOL 2015-05-15 07:57:002[facility] SQRHB7225-21-30 07:57:00Moderate *ABN*(05/15/15 2:57 AM)[facility] XKMZU3437-33-16 07:57:00Negative *NA*(05/15/15 2:57 AM)[facility] WNGXJ2060-42-48 07:57:006.0 [facility] QIJDH3754-18-60 07:57:00Negative (05/15/15 2:57 AM) [facility] JRAKQ3728-17-45 07:57:004.0[facility] DMVQC1313-70-74 07:57:00Negative (05/15/15 2:57 AM)[facility] QYGDR8543-58-88 07:57:001.024[facility] RSICJ9540-33-06 07:57:00 Clear (05/15/15 2:57 AM)[facility] CSWBI2298-15-58 07:57:00Yellow *NA*(05/15/15 2:57 AM)[facility] ZFDK3391-99-56 07:57:00Negative (05/15/15 2:57 AM)[facility] LEMWT9283-46-27 08:34:00Negative (02/14/15 3:34 AM)[facility] PSGVV3231-12-98 08:34:00Large *ABN*(02/14/15 3:34 AM)[facility] TDYBA1463-97-81 08:34:00Small *ABN*(02/14/15 3:34 AM)[facility] GCTQC5129-40-06 08:34:00Trace *ABN*(02/14/15 3:34 AM)[facility] EEHLJ0955-93-64 08:34:00Negative (02/14/15 3:34 AM)[facility] ZOVQO8868-50-60 08:34:000.2[facility] PSXFJ5284-80-02 08:34:00Negative (02/14/15 3:34 AM)[facility] MQRWP5134-56-36 08:34:00* Test Item Value Reference Range Interpretation Comments UA pH (test code = UA pH) 6.0 1 5.0-8.0 [facility] OOFOT8011-49-15 08:34:00* Test Item Value Reference Range Interpretation Comments UA Spec Grav (test code = UA Spec Grav) 1.025 1 [facility] DIEBT3811-59-51 08:34:00Slight Cloudy (02/14/15 3:34 AM) [facility] WWSJH6153-38-30 08:34:00Yellow *NA*(02/14/15 3:34 AM) [facility] CHXWF6531-48-84 08:34:00None Seen 3(02/14/15 3:34 AM) [facility] XDWE6111-53-48 08:34:00Negative (02/14/15 3:34 AM)[facility]annCHEM NMFHD4877-48-86 06:10:000.4[facility]annCHEM YMYFE3044-23-44 06:10:0065[facility]annCHEM HGQNO0349-83-78 06:10:000.1[facility]annCHEM MZHMM1145-70-73 06:10:001.0[facility]annCHEM HJUHC0036-30-69 06:10:003.8 [facility]annCHEM OZRJU8520-56-33 06:10:003.9[facility]annCHEM PANEL 2015-02-14 06:10:007.7[facility]annCHEM LSLDW6627-98-86 06:10:0023[facility]annCHEM UMWJH5862-20-95 06:10:0040[facility]annCHEM QRHJQ6349-31-86 06:10:000.5[facility]annCHEM BLLPR0082-56-03 06:10:0087[facility]annCHEM SCOYH0848-00-01 06:10:0022[facility]annCHEM BWZWY1092-12-68 06:10:24093 [facility]annCHE[facility] CEMOO1773-32-79 06:10:000.9[facility]annCHEM PANEL 2015-02-14 06:10:003.5[facility]annCHEM SFNTS5700-84-90 06:10:0083[facility]annCHEM AYCZI6908-75-12 06:10:005[facility]annCHEM IXLHC5205-43-97 06:10:0016.5[facility]annCHEM PUPMG3465-34-27 06:10:009.2[facility]annCHEM SXVND4098-97-27 06:10:04029Okxfdyop HermannURINE AND ZJQOT7472-17-76 05:56:00 Moderate *ABN*(09/29/14 11:56 PM)[facility] VGQAF2394-26-00 05:56:00Negative *NA*(09/29/14 11:56 PM)[facility] OMNXN2222-49-04 05:56:00Trace *ABN*(09/29/14 11:56 PM)[facility] WOVNY9054-84-38 05:56:00Negative (09/29/14 11:56 PM)[facility] WFCCC2156-62-73 05:56:002[facility] ROSOM0214-72-65 05:56:002[facility] AND TJGZP2647-13-21 05:56:00Yellow *NA*(09/29/14 11:56 PM)[facility] AND NQVRS8966-38-20 05:56:006.0[facility] AWOLD0115-91-10 05:56:001.020[facility] JMSPQ5720-26-29 05:56:00Marked *ABN*(09/29/14 11:56 PM)[facility]annCHEM JVLNR3658-14-60 05:55:00075Ijxscskg HermannCHEM KTULE5370-40-45 05:55:231.9[facility]annCHEM ITLHC6279-40-74 05:55:234.0[facility]annCHEM SYJLF0198-27-32 05:55:52528Ngfrjqgo HermannCHEM HBBUU3483-81-39 05:55:233.8[facility]annCHEM SFMFP7326-94-91 05:55:2328 [facility]annCHE[facility] NSQSL4943-47-32 05:55:230.8[facility] HermannCHEM PANEL 2014-09-30 05:55:239.1[facility]annCHEM LBIOU5332-44-64 05:55:2310[facility]annCHEM WSZUV4777-82-47 05:55:2389[facility]annCHEM NPKDC6307-92-02 05:55:234.1[facility]annCHEM JZMFN6099-00-63 05:55:29883Nufgnbok HermannCHEM CRYSI3546-66-52 05:55:92730Cqvwtwdr HermannCHEM FEFBK5678-67-98 05:55:2336 [facility]CHE[facility] ZZPRW5304-45-63 05:55:2323[facility]annCHEM PANEL 2014-09-30 05:55:230.6[facility]annCHEM ZUMOJ0748-54-95 05:55:238.1[facility]annCHEM AXFCH1126-08-46 05:55:78149Hfdtsenk HermannCHEM NOXZG5312-38-35 05:55:2310.1[facility]annCHEM KGSRA8607-87-55 05:55:2312[facility]annCHEM EZYSY1569-14-84 05:55:230.9[facility]annCHEM JRBZV0334-63-69 05:55:234.3 [facility]annCHEM BYSEH8098-46-45 05:55:2350[facility] HermannENDOCRINOLOGY 2014-09-30 05:55:23Negative *NA*(09/29/14 11:55 PM)[facility]annHEMATOLOGY 2014-09-30 05:55:2315.3[facility] FgfbgkbXOBCHNBJAN6394-52-45 05:55:2344.8[facility] KjkuwmfJIVXICLJYJ2310-05-65 05:55:2313.5[facility] ImuidxuUPRKVNMYBD0662-92-20 05:55:23* Test Item Value Reference Range Interpretation Comments MCH (test code = MCH) 30.0 pg 27.0-31.0 [facility] ObvlszpGRCQELOTGV9186-80-61 05:55:2334.1[facility] HermannHEMATOLOGY 2014-09-30 05:55:2312.8[facility] MclfyubFSUAKVLPVK5832-35-71 05:55:235.10[facility] ZjeigpnMLWUNAVRUZ1294-66-29 05:55:239.0[facility] LprwzkdEEYZSKYLGP8469-93-61 05:55:59157Zmhagxcc TqrshknJIJLZICCAR3876-73-94 05:55:2387.9[facility] TKDBWMEIAI5790-33-86 05:55:230.1[facility] HgvpwbqEGEVYDSHWZ5815-71-12 05:55:231.0 [facility] PigsczkXTBBDTVCCM9236-10-07 05:55:230.6[facility] HermannHEMATOLOGY 2014-09-30 05:55:2362.0[facility] FoyicpgXPNROZNADT5333-91-07 05:55:2325.2[facility] CyjsjgoMRRANURAKL2456-77-10 05:55:234.7[facility] YqenqcgNHDSVSODJO5133-54-48 05:55:231.0[facility] OcfwkqzXKGXXPTZIB5831-94-70 05:55:238.4[facility] TOAJAAIWHS9364-70-70 05:55:233.4[facility] YcdtcctPPHQKGUDET9289-07-99 05:55:237.1 [facility]
[2020-04-17] MEDS ORDERED: VANCOMYCIN 1GM/NS 250 ML 250 ML IV SCH (21:30)
[2020-04-17] MEDS: MEROPENEM 1GRAM 1 GM in SODIUM CHLORIDE 0.9% 100 ML 100 ML IV SCH (21:35)
--- NOTE | 2020-04-17 21:49 | NUR ---
Received report from ER nurse.
--- NOTE | 2020-04-17 22:03 | NUR ---
Patient arrived to the floor via stretcher.
[2020-04-17] MEDS: SODIUM CHLORIDE 0.9% 1000ML 1,000 ML IV SCH (22:30)
[2020-04-17 23:00] VITALS: BP 105/59
[2020-04-17] MEDS: ONDANSETRON HCL INJ 2MG/ML 2ML 2 MG/ML VIAL IV PRN (23:00)
[2020-04-17] MEDS: MORPHINE SULFATE 2 MG/ML SYR 1ML IV PRN (23:00)
[2020-04-18] VITALS (9 sets, daily range): BP systolic 101–128; BP diastolic 58–71
[2020-04-18] MEDS ORDERED: VANCOMYCIN 750MG/NS 150ML IVPB 250 ML IV SCH (00:15)
--- NOTE | 2020-04-18 00:53 | NUR ---
S/W Dr Sebastian Felix to make corrections on Vanco. Done and order sent.
[2020-04-18] MEDS ORDERED: VANCOMYCIN HCL 1.25 GM in SODIUM CHLORIDE 0.9% 250ML 250 ML IV SCH (02:00)
[2020-04-18] MEDS ORDERED: VANCOMYCIN HCL 1 GM in SODIUM CHLORIDE 0.9% 250ML 250 ML IV STA (02:20)
[2020-04-18] MEDS ORDERED: VANCOMYCIN 1GM/NS 250 ML 250 ML ONE (03:04)
[2020-04-18] MEDS ORDERED: MEROPENEM 1 GM VIAL ONE (03:29)
[2020-04-18] MEDS ORDERED: SODIUM CHLORIDE 0.9% 100 ML ONE (03:38)
[2020-04-18] MEDS: MORPHINE SULFATE 2 MG/ML SYR 1ML IV PRN ×5 (04:22→22:02)
[2020-04-18] MEDS: ONDANSETRON HCL INJ 2MG/ML 2ML 2 MG/ML VIAL IV PRN ×3 (04:22→22:02)
[2020-04-18] MEDS: SODIUM CHLORIDE 0.9% 1000ML 1,000 ML IV SCH ×5 (04:30→20:30)
[2020-04-18] MEDS: MEROPENEM 1GRAM 1 GM in SODIUM CHLORIDE 0.9% 100 ML 100 ML IV SCH ×3 (06:00→22:38)
[2020-04-18 06:18] LABS: BASOPHILS # (AUTO) 0.1 (0.0-0.1); BASOPHILS % 0.4 % (0.0-1.0); EOSINOPHILS # (AUTO) 0.4 (0.0-0.4); EOSINOPHILS % 2.3 % (0.0-6.0); HEMATOCRIT 37.4 % (34.2-44.1); HEMOGLOBIN 11.4 g/dL (12.0-16.0); LYMPHOCYTES # (AUTO) 1.5 (1.0-3.2); LYMPHOCYTES % 9.2 % (18.0-39.1); MEAN CORPUSCULAR HEMOGLOBIN 30.4 pg (28-32); MEAN CORPUSCULAR HGB CONC 30.5 g/dL (31-35); MEAN CORPUSCULAR VOLUME 99.7 fL (81-99); MONOCYTES # (AUTO) 1.5 (0.2-0.8); MONOCYTES % 9.5 % (4.4-11.3); NEUTROPHILS # (AUTO) 12.3 (2.1-6.9); NEUTROPHILS % 78.2 % (38.7-80.0); PLATELET COUNT 199 x10e3/uL (140-360); RED BLOOD COUNT 3.75 x10e6/uL (3.6-5.1); RED CELL DISTRIBUTION WIDTH 13.4 % (11.7-14.4)
--- NOTE | 2020-04-18 06:50 | NUR ---
BEDSIDE SBAR REPORT RECEIVED FROM GAMA TAPIA, PM SHIFT. PT FOUND RESTING IN BED IN NO ACUTE DISTRESS. LAB TECHS IN ROOM DRAWING LABS. PT IS ABLE TO MAKE NEEDS KNOWN AND DENIES ANY NEEDS AT THIS TIME. PT WAS EDUCATED ON FALL RISK PRECAUTIONS AND VERBALIZED UNDERSTANDING. CALL LIGHT AND BELONGINGS NEARBY. WILL CONTINUE TO MONITOR.
[2020-04-18 07:39] LABS: ALANINE AMINOTRANSFERASE 19 IU/L (0-55); ALBUMIN 3.3 g/dL (3.5-5.0); ALBUMIN/GLOBULIN RATIO 1.2 (0.8-2.0); ALKALINE PHOSPHATASE 68 IU/L (40-150); ANION GAP 15.3 mmol/L (8-16); BLOOD UREA NITROGEN 5 mg/dL (7-26); BUN/CREATININE RATIO 7 (6-25); CALCIUM 7.8 mg/dL (8.4-10.2); CARBON DIOXIDE 20 mmol/L (22-29); CHLORIDE 105 mmol/L (98-107); CREATININE, SERUM 0.68 mg/dL (0.57-1.11); EST GLOMERULAR FILTRATION RATE > 60 ML/MIN (60-); GLUCOSE 90 mg/dL (74-118); POTASSIUM 3.3 mmol/L (3.5-5.1); SODIUM 137 mmol/L (136-145)
[2020-04-18] MEDS: VANCOMYCIN HCL 1.25 GM in SODIUM CHLORIDE 0.9% 250ML 250 ML IV SCH ×2 (10:40→18:00)
--- NOTE | 2020-04-18 14:00 | NUR ---
PT OFF THE FLOOR FOR SURGERY
[2020-04-18] MEDS ORDERED: FENTANYL CITRATE/PF 100MCG/2 ML INJ ONE ×2 (15:54→17:42)
[2020-04-18] MEDS: PANTOPRAZOLE 40 MG 10ML VIAL IV SCH ×2 (16:00→16:30)
--- NOTE | 2020-04-18 16:03 | Operative Report ---
DATE OF PROCEDURE: 04/18/2020 SURGEON: Diego Campbell MD PREOPERATIVE DIAGNOSIS: Abdominal wall abscess. POSTOPERATIVE DIAGNOSIS: Abdominal wall abscess. OPERATION PERFORMED: Exploration of abdominal wall with drainage of abscess. ANESTHESIA: General. COMPLICATIONS: None. ESTIMATED BLOOD LOSS: Minimal. DESCRIPTION OF PROCEDURE: With the patient lying in bed in the supine position under good general anesthesia, the abdomen was prepped with Betadine solution and draped in the usual manner. The umbilical incision was then opened and extended somewhat distally, immediately some purulent material was encountered, which was cultured. The loculations were then broken and a pocket was then tracked down towards the right lower quadrant, where more purulent material was encounter, all of this was aspirated. All of the tissue was then debrided and after this was done, the wound was then copiously irrigated with dilute Betadine solution. Hemostasis was ascertained. An incision was then made in the right lower abdomen and the umbilical incision was then connected to the right lower abdominal incision, and a half-inch Heide drain was then placed in the area and sutured to the skin with 2-0 silk and the cavity was then packed with 1-inch iodoform gauze. Dressings were applied. The sponge, lap, and needle counts were correct. The patient tolerated the procedure well and returned to the recovery room in stable condition. MD NIRANJAN WoodsR/MODL /[id number]
--- NOTE | 2020-04-18 16:15 | NUR ---
PT BACK TO THE FLOOR FROM SURGERY
[2020-04-18] MEDS ORDERED: MIDAZOLAM HCL 2 MG/2 ML VIAL ONE (17:42)
[2020-04-18] MEDS ORDERED: SEVOFLURANE INHAL SOLN 250 ML PEN BTL ONE (21:39)
[2020-04-18] MEDS ORDERED: DEXAMETHASONE SOD PHOS INJ 4 MG/ML VIAL ONE (21:39)
[2020-04-18] MEDS ORDERED: PROPOFOL IV EMULSION 10 MG/ML 20 ML VIAL ONE (21:39)
[2020-04-18] MEDS ORDERED: ONDANSETRON HCL INJ 2MG/ML 2ML 2 MG/ML VIAL ONE (21:39)
[2020-04-18] MEDS ORDERED: KETOROLAC TROMETHAMINE 30 MG/ML VIAL ONE (21:39)
[2020-04-18] MEDS ORDERED: LIDOCAINE HCL 2% LOCAL INJ 5 ML SDV VIAL INJ ONE (21:39)
--- NOTE | 2020-04-18 22:10 | NUR ---
NEW IV STARTED TO R FA #20G.ABD PAIN VOICED 03/26.MEDICATION GIVEN.ABD.DRESSING IS DRY.AMBULATES.PASSES GAS.BED ALARM ON .REFUSED TO PUT YELLOW SOCKS.BED LOCKED AND IN LOWEST POSITION.PHONE AND CALL LIGHT WITHIN REACH.INSTRUCTED TO CALL FOR ASSISTANCE NEEDED.
[2020-04-19] VITALS (9 sets, daily range): BP systolic 98–137; BP diastolic 66–77
[2020-04-19] MEDS: VANCOMYCIN HCL 1.25 GM in SODIUM CHLORIDE 0.9% 250ML 250 ML IV SCH ×2 (02:37→10:00)
[2020-04-19] MEDS: ONDANSETRON HCL INJ 2MG/ML 2ML 2 MG/ML VIAL IV PRN ×5 (02:57→22:00)
[2020-04-19] MEDS: MORPHINE SULFATE 2 MG/ML SYR 1ML IV PRN ×5 (02:58→22:03)
--- NOTE | 2020-04-19 03:29 | NUR ---
Uses ics.ambulates to rest room and voided.
--- NOTE | 2020-04-19 03:46 | NUR ---
RFA IV INFILTERATED.IV CANNULA REMOVED AND APPLIED PRESSURE DRESSING.CATHETER TIP IS INTACT.
[2020-04-19] MEDS: SODIUM CHLORIDE 0.9% 1000ML 1,000 ML IV SCH ×2 (04:12→13:06)
[2020-04-19] MEDS: MEROPENEM 1GRAM 1 GM in SODIUM CHLORIDE 0.9% 100 ML 100 ML IV SCH ×3 (06:02→21:46)
[2020-04-19 06:42] LABS: BASOPHILS % 0.3 % (0.0-1.0); EOSINOPHILS % 0.1 % (0.0-6.0); HEMATOCRIT 34.7 % (34.2-44.1); HEMOGLOBIN 11.1 g/dL (12.0-16.0); LYMPHOCYTES # (AUTO) 1.1 (1.0-3.2); LYMPHOCYTES % 7.4 % (18.0-39.1); MEAN CORPUSCULAR HEMOGLOBIN 28.8 pg (28-32); MEAN CORPUSCULAR VOLUME 89.9 fL (81-99); MONOCYTES # (AUTO) 0.9 (0.2-0.8); MONOCYTES % 5.8 % (4.4-11.3); NEUTROPHILS # (AUTO) 12.9 (2.1-6.9); NEUTROPHILS % 85.7 % (38.7-80.0); PLATELET COUNT 230 x10e3/uL (140-360); RED BLOOD COUNT 3.86 x10e6/uL (3.6-5.1)
--- NOTE | 2020-04-19 06:55 | NUR ---
SBAR BEDSIDE REPORT GIVEN BY JUAN DAVID TAPIA, PM SHIFT. PT FOUND RESTING IN BED IN NO ACUTE DISTRESS. PATIENT IS ABLE TO MAKE NEEDS KNOWN AND REQUESTS PAIN MEDICATION FOR INCISIONAL PAIN 7/10 ON NUMERIC PAIN SCALE. NURSE TO MEDICATE PATIENT PER MD ORDER. PT WAS EDUCATED ON FALL RISK PRECAUTIONS AND VERBALIZED UNDERSTANDING. CALL LIGHT AND BELONGINGS PLACED NEARBY. WILL CONTINUE TO MONITOR.
--- NOTE | 2020-04-19 07:06 | NUR ---
Bed side shift report given to oncoming Rn.stable condition.
[2020-04-19 07:30] LABS: BLOOD UREA NITROGEN 7 mg/dL (7-26); BUN/CREATININE RATIO 12 (6-25); CARBON DIOXIDE 19 mmol/L (22-29); CHLORIDE 108 mmol/L (98-107); EST GLOMERULAR FILTRATION RATE > 60 ML/MIN (60-); GLUCOSE 108 mg/dL (74-118); SODIUM 137 mmol/L (136-145)
--- NOTE | 2020-04-19 10:00 | NUR ---
1000 VANCOMYCIN DOSE HELD DUE TO VANCOMYCIN LEVEL = 24.1
--- NOTE | 2020-04-19 10:57 | NUR ---
BEDSIDE SHIFT REPORT RECEIVED FROM THE DAY SHIFT RN. EDUCATED PT ABOUT FALL PRECAUTIONS. PT VERBALIZED UNDERSTANDING. CALL LIGHT WITH IN EASY REACH. INSTRUCTED PT TO USE CALL LIGHT FOR ALL THE NEEDS. BED IS LOW AND LOCKED. SIDE RAILS X2. BED ALARM IS ON. PT DENIES NEEDS AT THIS TIME.
--- NOTE | 2020-04-19 11:01 | NUR ---
SBAR REPORT GIVEN TO CHAD TAPIA.
[2020-04-19] MEDS: HYDROCODONE/APAP 7.5MG-325MG 1 EA TAB PO PRN ×2 (11:05→15:34)
--- NOTE | 2020-04-19 11:15 | NUR ---
NEW CONSULT INFORMED DR. MOSCOSO
--- NOTE | 2020-04-19 11:45 | NUR ---
CONSENT RECEIVED FROM PT FOR PICC LINE. PT DENIES FURTHER NEEDS.
--- NOTE | 2020-04-19 12:00 | NUR ---
PAGED DR. MOSCOSO AND REPORTED VANC TROUGH LEVEL 24.1
--- NOTE | 2020-04-19 14:53 | NUR ---
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 Her past medical history as above past surgical history as above allergies NKA Social history there is no smoking drug abuse or abuse family history otherwise unremarkable review of system at the present time all negative a change in negative, negative cardiac negative negative skin there is no other rash her physical examination she is currently alert oriented does not seem to be in acute distress vital subsequently afebrile HEENT she is not. Neck supple chest clear heart. No soft was present extremities no edema and abdominal wall there is erythema and edema there is drainage the dressing seem to have some pus Impression of abdominal wall abscess she is growing Staphylococcus aureus and the patient was morbidly obese agree with vancomycin and meropenem will get a PICC line will arrange outpatient IV antibiotic for 14 days weekly CBC weekly can panel will modify after her the availability of the sensitivity discussed the patient answered all her questions
--- NOTE | 2020-04-19 15:23 | Diagnostic Imaging Report ---
Chest, 1 view, 04/19/2020. History: PICC placement. Comparison: None available. Findings: The cardiomediastinal silhouette and pulmonary vasculature are within normal limits for a portable exam. There is no focal consolidation or pleural effusion. Left upper extremity PICC is present terminating near the cavoatrial junction. There are no acute osseous or soft tissue abnormalities. Impression: No acute cardiopulmonary abnormality. PICC is in adequate position. Signed by: Rohit Nowak on 04/19/2020 3:20 PM
[2020-04-19] MEDS: PANTOPRAZOLE 40 MG 10ML VIAL IV SCH (15:34)
--- NOTE | 2020-04-19 15:45 | NUR ---
PAGED RADIOLOGY REGARDING PICC LINE USE.
--- NOTE | 2020-04-19 16:50 | NUR ---
OKAY TO USE PICC LINE PER RADIOLOGY AND PICC LINE RN.
[2020-04-19] MEDS: LACTOBACILLUS ACIDOPHILUS CAPSULE PO SCH (18:23)
[2020-04-19] MEDS ORDERED: MAGNESIUM HYDROXIDE 30 ML UDC PO ONE (18:40)
--- NOTE | 2020-04-19 19:00 | NUR ---
BEDSIDE SHIFT REPORT GIVEN TO THE [employer]INE[employer] RN. PT DENIED FURTHER NEEDS.
--- NOTE | 2020-04-19 19:12 | NUR ---
Received the pt in report.lyeing in the bed.iv fluid running to left upper arm piccline.no resp.distress .no pain voiced.bed locked and in lowest position.phone and call light within reach.insructed to call for assistance as needed.
[2020-04-20] VITALS: BP_SYST 122; BP_SYST 124; BP_DIAS 70; BP_DIAS 77
[2020-04-20] MEDS: SODIUM CHLORIDE 0.9% 1000ML 1,000 ML IV SCH ×2 (00:33→13:01)
[2020-04-20] MEDS: HYDROCODONE/APAP 7.5MG-325MG 1 EA TAB PO PRN ×2 (01:18→06:37)
[2020-04-20] MEDS: ONDANSETRON HCL INJ 2MG/ML 2ML 2 MG/ML VIAL IV PRN ×4 (02:35→16:57)
[2020-04-20] MEDS: MORPHINE SULFATE 2 MG/ML SYR 1ML IV PRN ×4 (02:36→16:57)
[2020-04-20 04:00] VITALS: BP 127/78
[2020-04-20] MEDS: MEROPENEM 1GRAM 1 GM in SODIUM CHLORIDE 0.9% 100 ML 100 ML IV SCH (05:52)
--- NOTE | 2020-04-20 06:43 | NUR ---
Bed side shift report given to oncoming RN.stable condition.
[2020-04-20 08:00] VITALS: BP 110/62
[2020-04-20] MEDS: LACTOBACILLUS ACIDOPHILUS CAPSULE PO SCH (08:23)
[2020-04-20 08:40] VITALS: BP 110/60
[2020-04-20 09:22] LABS: BASOPHILS # (AUTO) 0.1 (0.0-0.1); BASOPHILS % 0.6 % (0.0-1.0); EOSINOPHILS # (AUTO) 0.3 (0.0-0.4); EOSINOPHILS % 2.7 % (0.0-6.0); HEMATOCRIT 31.9 % (34.2-44.1); HEMOGLOBIN 10.2 g/dL (12.0-16.0); LYMPHOCYTES # (AUTO) 2.9 (1.0-3.2); LYMPHOCYTES % 27.9 % (18.0-39.1); MEAN CORPUSCULAR HEMOGLOBIN 28.8 pg (28-32); MEAN CORPUSCULAR VOLUME 90.1 fL (81-99); MONOCYTES # (AUTO) 1.1 (0.2-0.8); MONOCYTES % 10.1 % (4.4-11.3); NEUTROPHILS % 58.2 % (38.7-80.0); PLATELET COUNT 245 x10e3/uL (140-360); RED BLOOD COUNT 3.54 x10e6/uL (3.6-5.1); RED CELL DISTRIBUTION WIDTH 13.2 % (11.7-14.4)
[2020-04-20 09:33] LABS: BLOOD UREA NITROGEN 7 mg/dL (7-26); BUN/CREATININE RATIO 11 (6-25); CALCIUM 7.8 mg/dL (8.4-10.2); CARBON DIOXIDE 24 mmol/L (22-29); CHLORIDE 107 mmol/L (98-107); CREATININE, SERUM 0.65 mg/dL (0.57-1.11); EST GLOMERULAR FILTRATION RATE > 60 ML/MIN (60-); GLUCOSE 96 mg/dL (74-118); SODIUM 140 mmol/L (136-145)
[2020-04-20] MEDS ORDERED: VANCOMYCIN 1GM/NS 250 ML 250 ML IV SCH (10:00)
[2020-04-20 12:12] VITALS: BP 119/70
[2020-04-20] MEDS ORDERED: MEROPENEM 1GM 100 ML IV SCH (14:00)
[2020-04-20 15:30] VITALS: BP 117/79
[2020-04-20] MEDS ORDERED: DAPTOMYCIN 500mg 10ML 500 MG in SODIUM CHLORIDE 0.9% 100 ML IV ONE (16:00)
[2020-04-20] MEDS: PANTOPRAZOLE 40 MG 10ML VIAL IV SCH (16:35)
--- NOTE | 2020-04-20 18:41 | NUR ---
JONAS TO D/C PT PER DR. Sebastian MERAZ AND DR. MOSCOSO. 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 MOSCOSO.
--- NOTE | 2020-04-20 18:41 | NUR ---
doing well r.o s neg vs no fever physical examination she is currently alert oriented does not seem to be in acute distress vital stable afebrile HEENT she is not ple or ivteric obesity . Neck supple chest clear heart. No abdomen soft dressing is clean t extremities no edema abcess abdomen obesity mssa home with dapto 500 daily 14 days local care
--- NOTE | 2020-04-20 19:08 | NUR ---
BEDSIDE SHIFT REPORT GIVEN TO THE BOTTOM BRUSHER RN. PT DENIED FURTHER NEEDS. PT IS WAITING FOR FAMILY MEMBER TO D/C.
--- NOTE | 2020-04-20 19:24 | NUR ---
Received change of shift report from AM nurse. Walking rounds completed.
--- NOTE | 2020-04-20 20:27 | NUR ---
Patient D/C home with all info. Teaching done. Patient verbalized understanding.
== END 2020-04-20 20:30 | disposition home or self-care (01) | DRG 857 ==
LOC: ER 16:58 → ERHOLD 20:18 → MED/SURG3 21:20
PROVIDERS: ADMIT Surgery; ATTEND Surgery
PROC: 0W9F0ZZ Drainage of Abdominal Wall, Open Approach (ICD-10-PCS; 2020-04-18)
PROC: 02HV33Z Insertion of Infusion Device into Superior Vena Cava, Percutaneous Approach (ICD-10-PCS; principal; 2020-04-19)
DX: T81.42XA Infection following a procedure, deep incisional surgical site, initial encounter (principal); L03.311 Cellulitis of abdominal wall; L02.211 Cutaneous abscess of abdominal wall; Z68.42 Body mass index [BMI] 45.0-49.9, adult; Z11.59 Encounter for screening for other viral diseases; E66.01 Morbid (severe) obesity due to excess calories
CPT/HCPCS: 36415; 36569; 71045; 74177; 80048; 80053; 80202; 81025; 83605; 85025; 87040; 87071; 87075; 87186; 87205; 96361; 99284; J1100; J1885; J2001; J2185; J2250; J2270; J2405; J3010; J3370; J7030; J7050; Q9967; U0002

== ENCOUNTER 2020-04-24 10:32 | Emergency (ER) | payer OTHER ==
[~2020-04-24] VITALS: Ht 167.6 cm; Wt 130.2 kg
--- NOTE | 2020-04-24 10:39 | NUR ---
PATIENT CALLED FOR TRIAGE AT THIS TIME - PATIENT ON HER CELL PHONE IN [facility] WOULD NOT COME WITH NURSE
--- NOTE | 2020-04-24 11:07 | Emergency Department Note ---
History of Present Illnes History of Present Illness Chief Complaint: General Medicine Complaints History of Present Illness This is a 34 year old female PATIENT IN FROM HOME WITH COMPLAINTS OF ABSCESS ON ABDOMEN. PATIENT HAD A LAP APPENDECTOMY ON 04/13/2020, THEN HAD AN ABSCESS DRAINED ON 04/18/2020. PATIENT IN NOW WITH COMPLAINTS OF SWELLING AND A LEMON SIZED "LUMP" UNDER HER CHERIE DRAIN. Historian: Patient Arrival Mode: Car Entry Level Recruiter Required: No Onset (how long ago): day(s) (3) Location: ABDOMEN Quality: PAIN/SWELLING Severity: moderate Onset quality: gradual Timing of current episode: constant Chronicity: recurrent Context: Reports recent illness, Reports recent surgery Relieving factors: none Exacerbating factors: none Past Medical/Family History Physician Review I have reviewed the patient's past medical and family history. Any updates have been documented here. Past Medical History Recent Fever: No Clinical Suspicion of Infectio: Yes New/Unexplained Change in Ment: No Past Medical History: Anxiety Other Medical History: PCOS HIDRADENITIS SUPPURATIVA ABSCESS ADHD Past Surgical History: Cholecysctectomy, Appendectomy Social History Smoking Cessation: Never Smoker Counseling Performed: No Alcohol Use: None Any Illegal Drug Use: No TB Exposure/Symptoms: No Physically hurt or threatened: No Family History Family history of heart diseas: No Other Last Tetanus: UTD Any Pre-Existing Lines (PICC,: No Review of Systems Review of Systems Constitutional: Reports no symptoms EENTM: Reports no symptoms Cardiovascular: Reports no symptoms Respiratory: Reports no symptoms Gastrointestinal: Reports as per HPI Genitourinary: Reports no symptoms Musculoskeletal: Reports no symptoms Integumentary: Reports no symptoms Neurological: Reports no symptoms Psychological: Reports no symptoms Endocrine: Reports no symptoms Hematological/Lymphatic: Reports no symptoms Physical Exam Related Data Allergies: Coded Allergies: Penicillins (Verified Allergy, Severe, 04/24/20) cephalexin (Verified Allergy, Severe, 04/24/20) clindamycin (Verified Allergy, Severe, 04/24/20) sulfamethoxazole (Verified Allergy, Severe, 04/24/20) trimethoprim (Verified Allergy, Severe, 04/24/20) ciprofloxacin (Verified Allergy, Unknown, 04/24/20) Triage Vital Signs Vital Signs Date Time Temp Pulse Resp B/P (MAP) Pulse Ox O2 Delivery O2 Flow Rate FiO2 04/24/20 10:42 97.9 84 18 126/83 100 Room Air Vital signs reviewed: Yes Physical Exam CONSTITUTIONAL Constitutional: Present well-developed, Present well-nourished, Present obese HENT HENT: Present normocephalic, Present atraumatic, Present oropharynx clear/moist, Present nose normal HENT L/R: Present left ext ear normal, Present right ext ear normal EYES Eyes: Reports PERRL, Reports conjunctivae normal NECK Neck: Present ROM normal PULMONARY Pulmonary: Present effort normal, Present breath sounds normal CARDIOVASCULAR Cardiovascular: Present regular rhythm, Present heart sounds normal, Present capillary refill normal, Present normal rate GASTROINTESTINAL Abdominal: Present soft, Present bowel sounds normal, Present tender (MILD TENDERNESS AROUND REJI DRAIN BUT NO SIGNIFICANT SWELLING, NO DISCRETE ABSCESS (SHE SAID "IT WAS RIGHT THERE BUT NOW IT'S GONE"), Present other (UMBILICAL LAP SITE WITH PACKING); Absent mass GENITOURINARY Genitourinary: Present exam deferred SKIN Skin: Present warm, Present dry MUSCULOSKELETAL Musculoskeletal: Present ROM normal NEUROLOGICAL Neurological: Present alert, Present oriented x 3, Present no gross motor or sensory deficits PSYCHOLOGICAL Psychological: Present mood/affect normal, Present judgement normal Assessment & Plan Medical Decision Making MDM SPOKE WITH DR Sebastian MERAZ - HE WILL SEE PT IN CLINIC TODAY AT ~4PM Reassessment Reassessment TAMY F/Amina Cortes RICKEY 1600 TODAY Assessment & Plan Final Impression: (1) Abdominal wall cellulitis Depart Disposition: HOME, SELF-CARE Last Vital Signs Date Time Temp Pulse Resp B/P (MAP) Pulse Ox O2 Delivery O2 Flow Rate FiO2 04/24/20 10:42 97.9 84 18 126/83 100 Room Air Home Meds Reported Medications Acetaminophen/Codeine* (TYLENOL # 3*) 1 Ea Tab, 1 TAB PO Q4HR PRN for MODERATE PAIN (4-6) 04/14/20 Zolpidem Tartrate (AMBIEN) 10 Mg Tablet, 10 MG PO HS PRN for INSOMNIA, #30 TAB 04/13/20 Amphet Asp/Amphet/D-Amphet (ADDERALL XR 30 MG CAPSULE) 30 Mg Cap.er.24h, 30 MG PO DAILY 04/13/20 Discontinued Reported Medications Levofloxacin (LEVAQUIN) 500 Mg Tablet, 500 MG PO DAILY, TAB 04/14/20 DANIELLE REYES MD Apr 24, 2020 11:07
--- OUTSIDE RECORDS SUMMARY | 2020-04-24 11:18 | XMS REPORT | Continuity of Care Document ---
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 WASTE Product Size: 4 mg Product Wasted: ___ mg No Longer Active 08/24/2018 [facility] Acetaminophen Notes: Do not ex ceed 4 gm/day. (Same as: Tylenol) No Longer Active 08/24/2018 [facility] Morphine 4 mg, Route: IVP, ONC E, Dosing Weight 120.455, kg, Start date: 08/24/18 14:22:00 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, Stop date: 08/24/18 14:22:00 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 Inactive 08/24/2018 [facility] Zofran Notes: [...] day, # 20 tab, 0 Refill(s), Pharmacy: [facility] [id number] No Longer Active 05/22/2018 [facility] Docusate Sodium 100 MG Oral Capsule [Colace] 100 mg = 1 cap, PO, BID, PRN as needed for constipation, # 14 cap, 0 Refill(s), Pharmacy: [facility] [id number] No Longer Active 05/22/2018 [facility] [...] Hydrocodone Nereyda trate 5 MG Oral Tablet [[place] 5/325] Notes: (Same as: [place] 325/5) Do not ex ceed 4gm/day of [...] IV 250 mL 1,000 mg, Route: IVPB, [id number], Dosing Weight 119.091, kg, Start date: 05/17/18 [...] mg, Route: IV PB, Drug form: INJ, [id number], Dosing Weight 119.091, kg, Start date: 05/17/18 [...] # 30 tab, 0 Refill(s) Active 01/13/2018 [facility] tramadol hydrochloride 50 MG Oral Tablet 50 mg = 1 tab, PO, Q6H, PRN Pain, not to exceed 400 mg/day, X 5 day, # 24 tab, 0 Refill(s) Active 01/13/2018 [facility] ibuprofen 800 mg oral tablet 8 00 mg = 1 tab, PO, Q8H, PRN Fever or Pain, Take with food, X 10 day, # 30 tab, 0 Refill(s) Active 01/13/2018 [facility] Acetaminophen 325 MG / Hydrocodone Nereyda trate 7.5 MG Oral Tablet [G[place] 7.5/325] Notes: Same as [place] 325-7.5mg Do not exceed 4gm/day of acetaminophen. Inactive 01/13/2018 [facility] Valium Notes: (Same as: Valium) Inactive 01/13/2018 [facility] Ketorolac 4 days MEDICA TION WASTE Product Size: 30 mg Product Wasted: ___ mg Inactive 01/13/2018 [facility] Tylenol Notes: Do not exceed 4 gm/day. (Same as: Tylenol) Inactive 01/12/2018 [facility] Buspirone Notes: (Same As: BuS par) Inactive 12/31/2016 [facility] Phenergan Notes: (Same as: Phe nergan) Inactive 12/31/2016 [facility] Phenergan 25 mg oral tablet 25 mg, PO, Q6H, PRN Nausea & Vomiting, X 5 day, # 20 tab, 0 Refill(s), Pharmacy: [facility] [id number] Active 12/31/2016 [facility] Sodium Chloride 0.154 MEQ/ML Injectable Solution 1,000 mL, Rate: 150 ml/hr, Infuse over: 6.7 hr, Route: IV, Dosing Weight 109 kg, Total Volume: 1,000, Start date: 12/31/16 9:30:00 CDT, Duration: 30 day, Stop date: 01/30/17 9:29:00 CDT Inactive 12/31/2016 [facility] Trazodone Notes: (Same As: Hawk yrel) Inactive 12/31/2016 [facility] Cipro Notes: May interfere w/e nteral feedings - Take 1 hr before or 2 hrs after antacids, dairy pdt & minerals. On empty stomach. Inactive 12/31/2016 [facility] Flagyl Notes: (Same as: Flagyl ) Take with food/ avoid alcohol Inactive 12/31/2016 [facility] Fluoxetine Notes: (Same as: Pr ozac) Inactive 12/31/2016 [facility] Levsin SL Notes: (Same as: Lev sin) Take 30 min before meal Inactive 12/31/2016 [facility] Promethazine Notes: Do not giv e IV push. (Same as: Phenergan) Inactive 12/31/2016 [facility] Zofran 4 mg, Route: IVP, Drug form: INJ, ONCE, Dosing Weight 109.091, kg, Priority: STAT, Start date: 12/31/16 4:33:00 CDT, Stop date: 12/31/16 4:33:00 CDT Inactive 12/31/2016 [facility] Morphine 4 mg, Route: IVP, ONC E, Dosing Weight 109.091, kg, Priority: STAT, Start date: 12/31/16 4:30:00 CDT, Stop date: 12/31/16 4:30:00 CDT Inactive 12/31/2016 [facility] Rocephin Notes: (Same As: Roctimo phin). Use with 100 mL NS and infuse over 30 min MEDICATION WASTE Product Size: 1000 mg Product Wasted: ___ mg Inactive 12/31/2016 [facility] Ondansetron Notes: (Same as: Kathy diaz) MEDICATION WASTE Product Size: 4 mg Product Wasted: ___ mg No Longer Active 12/31/2016 [facility] Morphine Notes: (Same as:MORPh ine Sulfate) No Longer Active 12/31/2016 [facility] Saline Flush 0.9% Notes: (Same as: BD Posiflush) No Longer Active 12/31/2016 [facility] Sodium Chloride 0.154 MEQ/ML Injectable Solution 1,000 mL, 2,000 ml/hr, Infuse Over: 30 minutes, Route: IV, 1,000, Drug form: INJ, ONCE, Priority: STAT, Dosing Weight 109.091 kg, Start date: 12/30/16 23:55:00 CDT, Duration: 1 doses or times, Stop date: 12/30/16 23:55:00 CDT No Longer Active 12/31/2016 [facility] Ciprofloxacin 500 MG Oral Tablet [Cipro] 500 mg = 1 tab, PO, Q12H, X 7 day, # 14 tab, 0 Refill(s), Pharmacy: [facility] [id number] Active 12/25/2016 [facility] Acetaminophen 300 MG / Codeine Phosphate 30 MG Oral Tablet [Tylenol with Codeine #3] 1 - 2 tab, PO, Q4H, PRN Pain, X 2 day, # 10 tab, 0 Refill(s) No Longer Active 12/25/2016 [facility] Metronidazole 500 MG Oral Tablet [Flagyl] 500 mg = 1 tab, PO, BID, X 7 day, # 14 tab, 0 Refill(s), Pharmacy: [facility] [id number] Active 12/25/2016 [facility] Sodium Chloride 0.154 MEQ/ML Injectable Solution 500 mL, 500 ml/hr, Infuse Over: 1 hr, Route: IV, 500, Drug form: INJ, ONCE, Priority: STAT, Dosing Weight 109.091 kg, Start date: 12/25/16 17:53:00 CDT, Duration: 1 doses or times, Stop date: 12/25/16 17:53:00 CDT Inactive 12/25/2016 [facility] Acetaminophen 300 MG / Codeine Phosphate 30 MG Oral Tablet [Tylenol with Codeine #3] Notes: Do not exceed 4gm/day of acetamin ophen. (Same as: Tylenol with Codeine # 3) Inactive 12/25/2016 [facility] Flagyl Notes: (Same as: Flagyl ) Avoid alcohol. Inactive 12/25/2016 [facility] Cipro Notes: Do not refrigerate Inactive 12/25/2016 [facility] Saline Flush 0.9% Notes: (Same as: BD Posiflush) Inactive 12/25/2016 [facility] Famotidine 40 MG Oral Tablet [Pepcid] 40 mg = 1 tab, PO, Daily, # 30 tab, 0 Refill(s) Active 07/20/2016 [facility] Sucralfate 1000 MG Oral Tablet [Carafate] 1 gm = 1 tab, PO, TID, # 90 tab, 0 Refill(s) Active 07/20/2016 [facility] Phenergan 25 mg oral tablet 25 mg = 1 tab, PO, Q4H, PRN Nausea, X 5 day, # 30 tab, 0 Refill(s) Active 07/20/2016 [facility] Diflunisal 500 MG Oral Tablet [Dolobid] 500 mg = 1 tab, PO, Q8H, # 90 tab, 0 Refill(s) Active 07/20/2016 [facility] Zofran 4 mg, Route: IVP, Drug form: INJ, ONCE, Dosing Weight 104.545, kg, Priority: STAT, Start date: 07/19/16 21:44:00 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, Stop date: 07/19/16 21:44:00 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 Inactive 07/20/2016 [facility] Ketorolac 30 mg, Route: IVP, D rug form: INJ, ONCE, Dosing Weight 104.545, kg, Priority: STAT, Start date: 07/19/16 21:28:00 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, Stop date: 07/19/16 21:28:00 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 Inactive 07/20/2016 [facility] Zofran Notes: (Same as: Zoan ) MEDICATION WASTE Product Size: 4 mg Product Wasted: ___ mg Inactive 07/20/2016 [facility] Famotidine 20 MG Oral Tablet [Pepcid] 20 mg, 1 tab, Route: PO, ONCE, Dosing Weight 104.545, kg, Start date: 07/19/16 19:40:00 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, Stop date: 07/19/16 19:40:00 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 Inactive 07/20/2016 [facility] Sodium Chloride 0.154 MEQ/ML Injectable Solution 1,000 mL, 1,000 ml/hr, Infuse Over: 1 hr, Route: IV, 1,000, Drug form: INJ, ONCE, Priority: STAT, Dosing Weight 104.545 kg, Start date: 07/19/16 19:40:00 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, Duration: 1 doses or times, Stop date: 07/19/16 19:40:00 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 Inactive 07/20/2016 [facility] GI cocktail 30 mL, Route: PO, Dosing Weight 104.545, kg, ONCE, STAT, Start date: 07/19/16 19:39:00 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, Stop date: 07/19/16 19:39:00 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 Inactive 07/20/2016 [facility] Carafate Notes: May interfere w/enteral feeds - Take 1 hr before or 2 hr after antacids, dairy pdt, meals & minerals - On empty stomach. (Same As: Carafate) Inactive 07/20/2016 [facility] Cyclobenzaprine hydrochloride 10 MG Oral Tablet [Flexeril] 10 mg, PO, TID, PRN Muscle Spasm, X 10 d ay, # 30 tab, 0 Refill(s) Active 04/23/2016 [facility] tramadol hydrochloride 50 MG Oral Tablet 50 mg, Route: PO, Drug form: TAB, ONCE, Dosing Weight 94.091, kg, Priority: STAT, Start date: 04/23/16 1:34:00 CDT, Stop date: 04/23/16 1:34:00 CDT Inactive 04/23/2016 [facility] Valium 10 mg, Route: PO, ONCE, Dosing Weight 94.091, kg, Start date: 04/23/16 1:33:00 CDT, Stop date: 04/23/16 1:33:00 CDT Inactive 04/23/2016 [facility] Ketorolac 60 mg, Route: IM, Dr del toro form: INJ, ONCE, Dosing Weight 94.091, kg, Priority: STAT, Start date: 04/23/16 1:33:00 CDT, Stop date: 04/23/16 1:33:00 CDT Inactive 04/23/2016 [facility] Methocarbamol 750 MG Oral Tablet [Robaxin] 750 mg = 1 tab, PO, TID, PRN as needed for pain, X 10 day, # 30 tab, 0 Refill(s) Active 04/16/2016 [facility] Acetaminophen 300 MG / Codeine Phosphate 30 MG Oral Tablet [Tylenol with Codeine #3] 1 - 2 tab, PO, Q4H, PRN Pain, X 2 day, # 24 tab, 0 Refill(s) No Longer Active 04/16/2016 [facility] Flexeril 10 mg, Route: PO, ONC E, Dosing Weight 103.182, kg, Priority: STAT, Start date: 04/16/16 3:20:00 CDT, Stop date: 04/16/16 3:20:00 CDT Inactive 04/16/2016 [facility] Zofran ODT 4 mg, Route: PO, Dr del toro form: TABDIS, ONCE, Dosing Weight 103.182, kg, Priority: STAT, Start date: 04/16/16 2:09:00 CDT, Stop date: 04/16/16 2:09:00 CDT Inactive 04/16/2016 [facility] Dilaudid 1 mg, Route: IM, ONCE , Dosing Weight 103.182, kg, Priority: STAT, Start date: 04/16/16 2:09:00 CDT, Stop date: 04/16/16 2:09:00 CDT Inactive 04/16/2016 [facility] promethazine 12.5 mg oral tablet 12.5 mg = 1 tab, PO, Q6H, PRN Nausea & Vomiting, X 5 day, # 20 tab, 0 Refill(s) Active 04/14/2016 [facility] Hyoscyamine Sulfate 0.125 MG Sublingual Tablet [Levsin ] 0.125 mg = 1 tab, SL, Q6H, PRN abdominal spasm, # 28 tab, 0 Refill(s) Active 04/14/2016 [facility] omeprazole 40 mg oral delayed release capsule 40 mg = 1 cap, PO, Daily, # 30 cap, 0 Refill(s) Active 04/14/2016 [facility] Promethazine Notes: Do not giv e IV push. (Same as: Phenergan) Inactive 04/14/2016 [facility] GI cocktail 30 mL, Route: PO, Dosing Weight 103.182, kg, ONCE, STAT, Start date: 04/14/16 2:12:00 CDT, Stop date: 04/14/16 2:12:00 CDT Inactive 04/14/2016 [facility] pantoprazole 40 mg, Route: IVP , ONCE, Dosing Weight 103.182, kg, Priority: STAT, Start date: 04/14/16 2:12:00 CDT, Stop date: 04/14/16 2:12:00 CDT Inactive 04/14/2016 [facility] Morphine 4 mg, Route: IVP, Juan g form: INJ, ONCE, Dosing Weight 103.182, kg, Priority: STAT, Start date: 04/14/16 0:57:00 CDT, Stop date: 04/14/16 0:57:00 CDT Inactive 04/14/2016 [facility] pantoprazole 40 mg, Route: IVP , ONCE, Dosing Weight 103.182, kg, For IV push reconstitute with 10 ml 0.9% sodium chloride and push over at least 3 minutes, Priority: STAT, Start date: 04/14/16 0:57:00 CDT, Stop date: 04/14/16 0:57:00 CDT Inactive 04/14/2016 [facility] Ondansetron 4 mg, Route: IVP, ONCE, Dosing Weight 103.182, kg, Priority: STAT, Start date: 04/14/16 0:57:00 CDT, Stop date: 04/14/16 0:57:00 CDT Inactive 04/14/2016 [facility] Sodium Chloride 0.154 MEQ/ML Injectable Solution 1,000 mL, 2,000 ml/hr, Infuse Over: 30 minutes, Route: IV, ONCE, Priority: STAT, Dosing Weight 103.182 kg, Start date: 04/14/16 0:57:00 CDT, Duration: 1 doses or times, Stop date: 04/14/16 0:57:00 CDT Inactive 04/14/2016 [facility] Saline Flush 0.9% Notes: (Same as: BD Posiflush) Inactive 04/14/2016 [facility] Reglan 10 mg, Route: IVP, Drug form: INJ, ONCE, Dosing Weight 100.455, kg, Priority: STAT, Start date: 02/24/16 1:09:00 CDT, Stop date: 02/24/16 1:09:00 CDT Inactive 02/24/2016 [facility] Levsin Notes: (Same as: Dixie ) MEDICATION WASTE Product Size: 0.5 mg Product Wasted: ___ mg Inactive 02/24/2016 [facility] Dicyclomine Hydrochloride 20 MG Oral Tablet [Bentyl] 20 mg = 1 tab, PO, QID, # 28 tab, 0 Refill(s) Active 02/24/2016 [facility] Metoclopramide 10 MG Oral Tablet [Reglan] 10 mg = 1 tab, PO, QID-Before Meals, X 10 day, # 40 tab, 0 Refill(s) Active 02/24/2016 [facility] Morphine 4 mg, Route: IVP, Juan g form: INJ, ONCE, Dosing Weight 100.455, kg, Priority: STAT, Start date: 02/24/16 0:09:00 CDT, Stop date: 02/24/16 0:09:00 CDT Inactive 02/24/2016 [facility] Magnesium Sulfate 1 gm, Route: IV, ONCE, Dosing Weight 100.455, kg, Start date: 02/23/16 23:50:00 CDT, Stop date: 02/23/16 23:50:00 CDT No Longer Active 02/24/2016 [facility] Zofran 4 mg, Route: IVP, Drug form: INJ, ONCE, Dosing Weight 100.455, kg, Priority: STAT, Start date: 02/23/16 23:34:00 CDT, Stop date: 02/23/16 23:34:00 CDT Inactive 02/24/2016 [facility] Sodium Chloride 0.154 MEQ/ML Injectable Solution 1,000 mL, 1,000 ml/hr, Infuse Over: 1 hr, Route: IV, ONCE, Priority: STAT, Dosing Weight 100.455 kg, Start date: 02/23/16 23:34:00 CDT, Duration: 1 doses or times, Stop date: 02/23/16 23:34:00 CDT Inactive 02/24/2016 [facility] Saline Flush 0.9% Notes: (Same as: BD Posiflush) No Longer Active 02/24/2016 [facility] Morphine Notes: (Same as:MORPh ine [...] # 15 tab, 0 Refill(s) Active 10/13/2015 [facility] Ranitidine 150 MG Oral Tablet [Zantac] 150 mg = 1 tab, PO, BID, # 60 tab, 0 Refill(s) Active 10/13/2015 [facility] Dicyclomine Hydrochloride 20 MG Oral Tablet [Bentyl] 20 mg = 1 tab, PO, QID-Before Meals, # 40 tab, 0 Refill(s) Active 10/13/2015 [facility] Promethazine Notes: Do not giv e IV push. (Same as: Phenergan) Inactive 10/13/2015 [facility] Sodium Chloride 0.154 MEQ/ML Injectable Solution 1,000 mL, 1000 ml/hr, Infuse Over: 1 hr, Route: IV, 1,000, Drug form: INJ, ONCE, Priority: STAT, Dosing Weight 101.818 kg, Start date: 10/13/15 3:32:00, Duration: 1 doses or times, Stop date: 10/13/15 3:32:00 Inactive 10/13/2015 [facility] Morphine Notes: (Same as:MORPh ine Sulfate) Inactive 10/13/2015 [facility] Ondansetron Notes: (Same as: Kathy diaz) MEDICATION WASTE Product Size: 4 mg Product Wasted: ___ mg Inactive 10/13/2015 [facility] Famotidine Notes: (Same as: Pe pcid) Can be dilute in 5- 10cc NS IVP: Slow IV push over at least 2 minutes. Inactive 10/13/2015 [facility] GI cocktail Notes: [place] = antacid with simethicone 22.5 mL - lidocaine viscous 7.5 mL Inactive 10/13/2015 [facility] Saline Flush 0.9% Notes: (Same as: BD Posiflush) Inactive 10/13/2015 [facility] Sodium Chloride 0.154 MEQ/ML Injectable Solution 1,000 mL, 1000 ml/hr, Infuse Over: 1 hr, Route: IV, 1,000, Drug form: INJ, ONCE, Priority: STAT, Dosing Weight 101.818 kg, Start date: 10/13/15 2:13:00, Duration: 1 doses or times, Stop date: 10/13/15 2:13:00 Inactive 10/13/2015 [facility] Diphenhydramine 25 mg, Route: IVP, ONCE, Dosing Weight 107.273, kg, Priority: STAT, Start date: 07/04/15 0:52:00, Stop date: 07/04/15 0:52:00 Inactive 07/04/2015 [facility] Famotidine 20 mg, Route: IVP, ONCE, Dosing Weight 107.273, kg, Priority: STAT, Start date: 07/04/15 0:52:00, Stop date: 07/04/15 0:52:00 Inactive 07/04/2015 [facility] Morphine 4 mg, Route: IVP, ONC E, Dosing Weight 107.273, kg, Priority: STAT, Start date: 07/04/15 0:52:00, Stop date: 07/04/15 0:52:00 Inactive 07/04/2015 [facility] Sodium Chloride 0.154 MEQ/ML Injectable Solution 1,000 mL, 1,000 ml/hr, Infuse Over: 1 hr, Route: IV, ONCE, Priority: STAT, Dosing Weight 107.273 kg, Start date: 07/04/15 0:52:00, Duration: 1 doses or times, Stop date: 07/04/15 0:52:00 Inactive 07/04/2015 [facility] GI cocktail 30 mL, Route: PO, Dosing Weight 107.273, kg, ONCE, STAT, Start date: 07/04/15 0:52:00, Stop date: 07/04/15 0:52:00 Inactive 07/04/2015 [facility] Acetaminophen 325 MG / Hydrocodone Nereyda trate 5 MG Oral Tablet Notes: (Same as: [place] 325/5) Do not ex ceed 4gm/day of acetaminophen. Inactive 05/17/2015 [facility] Ibuprofen 600 mg, Route: PO, O NCE, Dosing Weight 112.273, kg, Priority: STAT, Start date: 05/17/15 2:14:00, Stop date: 05/17/15 2:14:00 Inactive 05/17/2015 [facility] omeprazole 40 mg oral delayed release capsule 40 mg = 1 cap, PO, Daily, # 30 cap, 0 Refill(s) Active 05/15/2015 [facility] Dicyclomine Hydrochloride 20 MG Oral Tablet [Bentyl] 20 mg = 1 tab, PO, QID-Before Meals, # 28 tab, 0 Refill(s) Active 05/15/2015 [facility] Ondansetron 4 MG Oral Tablet [Zofran] 4 mg = 1 tab, PO, TID, X 5 day, # 15 tab, 0 Refill(s) Active 05/15/2015 [facility] Acetaminophen 325 MG / Hydrocodone Nereyda trate 7.5 MG Oral Tablet [[place] 7.5/325] 1 tab, Route: PO, Drug Form: TAB, Dosing Weight 122.727, kg, ONCE, STAT, Start date: 05/15/15 7:15:00, Stop date: 05/15/15 7:15:00 Inactive 05/15/2015 [facility] Ketorolac 30 mg, Route: IVP, D rug form: INJ, ONCE, Dosing Weight 122.727, kg, Priority: STAT, Start date: 05/15/15 7:14:00, Stop date: 05/15/15 7:14:00 Inactiv e 05/15/2015 [facility] Zofran 4 mg, Route: IVP, Drug form: INJ, ONCE, Dosing Weight 122.727, kg, Priority: STAT, Start date: 05/15/15 6:28:00, Stop date: 05/15/15 6:28:00 Inactive 05/15/2015 [facility] Morphine 4 mg, Route: IVP, Juan g form: INJ, ONCE, Dosing Weight 122.727, kg, Priority: STAT, Start date: 05/15/15 4:19:00, Stop date: 05/15/15 4:19:00 Inactive 05/15/2015 [facility] Zofran 4 mg, Route: IVP, Drug form: INJ, ONCE, Dosing Weight 122.727, kg, Priority: STAT, Start date: 05/15/15 4:19:00, Stop date: 05/15/15 4:19:00 Inactive 05/15/2015 [facility] Sodium Chloride 0.154 MEQ/ML Injectable Solution 1,000 mL, 1,000 ml/hr, Infuse Over: 1 Hour, Route: IV, ONCE, Priority: STAT, Dosing Weight 122.727 kg, Start date: 05/15/15 4:19:00, Duration: 1 doses or times, Stop date: 05/15/15 4:19:00 Inactive 05/15/2015 [facility] Metoclopramide 10 MG Oral Tablet [Reglan] 10 mg = 1 tab, PO, QID, PRN Other -See Comment, X 7 day, # 28 tab, 0 Refill(s) Active 02/14/2015 [facility] PlasmaLyte A PH-7.4 1,000 mL 1 ,000 mL, Rate: 2,000 ml/hr, Infuse over: 0.5 hr, Route: IV, Dosing Weight 112.727 kg, Total Volume: 1,000, Start date: 02/14/15 1:11:00, Duration: 1 doses or times, Stop date: 02/14/15 1:40:00 Inactive 02/14/2015 [facility] Benadryl Notes: (Same as: Vikki dryl) Inactive 02/14/2015 [facility] Reglan Notes: (Same as: Reglan) Inactive 02/14/2015 [facility] Ondansetron 4 MG Oral Tablet [Zofran] 4 mg = 1 tab, PO, BID, # 10 tab, 0 Refill(s) Active 09/30/2014 [facility] Morphine 4 mg, Route: IV, Drug form: INJ, ONCE, Dosing Weight 118.182, kg, Start date: 09/30/14 0:32:00, Stop date: 09/30/14 0:32:00 Inactive 09/30/2014 [facility] Morphine 4 mg, Route: IM, Drug form: INJ, ONCE, Dosing Weight 118.182, kg, Priority: STAT, Start date: 09/30/14 0:31:00, Stop date: 09/30/14 0:31:00 Inactive 09/30/2014 [facility] Saline Flush 0.9% Notes: Same as: BD Posiflush Sterile No Longer Active 09/30/2014 [facility] Sodium Chloride 0.154 MEQ/ML Injectable Solution 1,000 mL, Infuse Over: 1 hr, Route: IV, ONCE, Priority: STAT, Dosing Weight 118.182 kg, Start date: 09/29/14 23:25:00, Duration: 1 doses or times, Stop date: 09/29/14 23:25:00 Inactive 09/30/2014 [facility] Allergies, Adverse Reactions, Alerts Substance [...] 08/25/2018 Right deltoid completed [facility], [facility] [place] Results Order Name Results Value Reference Range [...] Tr TND 1100 03/24/2020 [facility] TRIMETHOPRIM+SULFAMETHOXAZOLE:SUSC:PT:ISOLATE:ORDQN:IN C Gram Stain Report No Wbc'S Or Organisms Seen 03/23/2020 [facility] TRIMETHOPRIM+SULFAMETHOXAZOLE:SUSC:PT:ISOLATE:ORDQN:IN C Culture: Aspirate/Body Fluid/Tissue Many Staphylococcus aureus 03/23/2020 [facility] TRIMETHOPRIM+SULFAMETHOXAZOLE:SUSC:PT:ISOLATE:ORDQN:IN C Staphylococcus aureus Staphylococcus aureus 03/23/2020 [facility] CHEM PANEL Glucose Lvl 92 70 - 99 [facility] BUN 11 7 - 22 03/23/2020 [facility] CHEM PANEL Creatinine Lvl 0.64 0.50 - 1.40 03/23[facility] Sodium Lvl 139 135 - 145 [facility]23[facility] Potassium Lvl 3.7 3.5 - 5.1 03/23/2020 [facility] [place] [facility] Chloride Lvl 107 95 - 109 03/23/2020 [place] CHEM PANEL CO2 28 24 - 32 03/23[facility]2020 [facility] [place] [facility] Calcium Lvl 8.2 8.5 - 10.5 03/23/2020 [facility] Albumin Lvl 2.8 3.5 - 5.0 03/23/2020 [place] CHEM PANEL ALT 16 0 - 65 03/23/2020 [place] CHEM PANEL AST 11 0 - 37 [facility]/23[facility] AGAP 7.7 10.0 - 20.0 03/23/2020 [place] CHEM PANEL B/C Ratio 17 6 - 25 03/23/2020 [place] CHEM PANEL eGFR 117 03/23/2020 Result Comment: [...] should be multiplied by the estimated BMI. [place] CHEM PANEL Total Protein 6.7 6.4 - 8.4 [facility] Alk Phos 75 39 - 136 03/23/2020 [facility] CHEM PANEL Bili Total 0.5 0.2 - 1.3 03/23/2020 [place] CHEM PANEL Globulin 3.9 2.7 - 4.2 03/23/2020 [facility] A/G Ratio 0.7 0.7 - [...] [facility] V[facility] 14.1 11/03/2019 [facility] TOXICOLOGY Vanco Tr TND 10:00 11/03/2019 [facility] CHEM PANEL Glucose Lvl 99 70 - 99 11/03/2019 [facility] CHEM PANEL BUN 8 7 - 22 11/03/2019 [facility] CHEM PANEL Creatinine Lvl 0.59 0.50 - 1.40 11/03/2019 [facility] CHEM PANEL Sodium Lvl 137 135 - 145 11/03/2019 [facility] CHEM PANEL Potassium Lvl 4.0 [...] PANEL ALT 51 0 - 65 11/03/2019 [facility] CHEM PANEL AST 41 0 - 37 11/03/2019 [facility] CHEM PANEL Alk Phos 84 39 - 136 11/03/2019 [facility] CHEM PANEL Bili Total 0.4 0.2 - 1.3 11/03/2019 [facility] CHEM PANEL AGAP 8.0 10.0 - 20.0 11/03/2019 [facility] CHEM PANEL B/C Ratio 14 6 - 25 11/03/2019 [facility] CHEM PANEL Globulin 3.6 2.7 - 4.2 11/03/2019 [facility] CHEM PANEL A/G Ratio 0.8 0.7 - 1.6 11/03/2019 [facility] CHEM PANEL eGFR 121 11/03/2019 [...] should be multiplied by the estimated BMI. [facility] HEMATOLOGY Segs 65.6 45.0 - 75.0 11/03/2019 [facility] HEMATOLOGY Lymphocytes 20.6 20.0 - 40.0 11/03/2019 [facility] HEMATOLOGY Monocytes 8.8 2.0 - 12.0 11/03/2019 [facility] HEMATOLOGY Eosinophils 4.2 0.0 - 4.0 11/03/2019 [facility] HEMATOLOGY Basophils 0.8 0.0 - 1.0 11/03/2019 [facility] HEMATOLOGY Neutrophils # 6.0 1.5 - 8.1 11/03/2019 [facility] HEMATOLOGY Lymphocytes # 1.9 1.0 - 5.5 11/03/2019 [facility] HEMATOLOGY Monocytes # 0.8 0.0 - 0.8 11/03/2019 [facility] HEMATOLOGY Eosinophils # 0.4 0.0 - 0.5 11/03/2019 [facility] HEMATOLOGY Basophils # 0.1 0.0 - 0.2 11/03/2019 [facility] HEMATOLOGY WBC 9.1 3.7 - 10.4 11/03/[address] [facility] RBC 4.27 4.20 - 5.40 11/03/2019 [facility] HEMATOLOGY Hgb 12.4 12.0 - 16.0 11/03/2019 [facility] HEMATOLOGY Hct 38.1 36.0 - 48.0 11/03/[address] [facility] MCV 89.2 80.0 - 98.0 11/03/[address] [facility] MCH 29.0 27.0 - 31.0 11/03/[address] [facility] MCHC 32.5 32.0 - 36.0 11/03/[address] [facility] RDW 13.1 11.5 - 14.5 11/03/2019 [facility] HEMATOLOGY Platelet 210 133 - 450 11/03/[address] [facility] MPV 8.9 7.4 - 10.4 11/03/2019 [facility] SPECIAL CHEMISTRY Hgb A1C 5.3 <=5.6 % 11/03/2019 [facility] CHEM PANEL Glucose Lvl 96 70 - 99 11/02/2019 [facility] CHEM PANEL BUN 9 7 - 22 11/02/2019 [facility] CHEM PANEL Creatinine Lvl 0.70 0.50 - 1.40 11/02/2019 [facility] CHEM PANEL Sodium Lvl 140 135 - 145 11/02/2019 [facility] CHEM PANEL Potassium Lvl 4.0 3.5 - 5.1 11/02/2019 [facility] CHEM PANEL Chloride Lvl 109 95 - 109 11/02/2019 [facility] CHEM PANEL CO2 26 24 - 32 11/02/2019 [facility] CHEM PANEL Calcium Lvl 8.3 8.5 - 10.5 11/02/2019 [facility] CHEM PANEL AGAP 9.0 10.0 - 20.0 11/02/2019 [facility] CHEM PANEL eGFR 114 11/02/2019 [...] should be multiplied by the estimated BMI. [facility] ELECTROLYTES AGAP 10.1 10.0 - 20.0 05/25/2019 [facility] ELECTROLYTES B/C Ratio 20 6 - 25 05/25/2019 [facility] ELECTROLYTES Globulin 4.3 2.7 - 4.2 05/25/2019 [facility] ELECTROLYTES A/G Ratio 0.9 0.7 - 1.6 05/25/2019 [facility] ELECTROLYTES Glucose Lvl 94 70 - 99 05/25/2019 [facility] ELECTROLYTES BUN 13 7 - 22 05/25/2019 [facility] ELECTROLYTES Creatinine Lvl 0.6 6 0.50 - 1.40 05/25/2019 [facility] ELECTROLYTES Sodium Lvl 137 135 - 145 05/25/2019 [facility] ELECTROLYTES Potassium Lvl 4.1 3.5 - 5.1 05/25/2019 [facility] ELECTROLYTES Chloride Lvl 107 95 - 109 05/25/2019 [facility] ELECTROLYTES CO2 24 24 - 32 05/25/2019 [facility] ELECTROLYTES Calcium Lvl 9.3 8.5 - 10.5 05/25/2019 [facility] ELECTROLYTES Total Protein 8.2 6.4 - 8.4 05/25/2019 [facility] ELECTROLYTES Albumin Lvl 3.9 3.5 - 5.0 05/25/2019 [facility] ELECTROLYTES ALT 25 0 - 65 05/25/2019 [facility] ELECTROLYTES AST 14 0 - 37 05/25/2019 [facility] ELECTROLYTES Alk Phos 98 39 - 136 05/25/2019 [facility] ELECTROLYTES Bili Total 0.4 0.2 - 1.3 05/25/2019 [facility] ELECTROLYTES eGFR 116 05/25/2019 Result [...] should be multiplied by the estimated BMI. [facility] ENDOCRINOLOGY S Preg Ne gative *NA* (05/25/19 2:19 AM) Negative 05/25/2019 [facility] HEMATOLOGY WBC 14.7 3.7 - 10.4 05/25/[address] [facility] RBC 4.90 4.20 - 5.40 05/25/[address] [facility] Hgb 14.1 12.0 - 16.0 05/25/[address] [facility] Hct 43.2 36.0 - 48.0 05/25/[address] [facility] MCV 88.2 80.0 - 98.0 05/25/[address] [facility] MCH 28.8 27.0 - 31.0 05/25/[address] [facility] MCHC 32.7 32.0 - 36.0 05/25/[address] [facility] RDW 13.2 11.5 - 14.5 05/25/[address] [facility] Platelet 298 133 - 450 05/25/[address] [facility] MPV 8.5 7.4 - 10.4 05/25/[address] [facility] Segs 66.4 45.0 - 75.0 05/25/[address] [facility] Lymphocytes 21.1 20.0 - 40.0 05/25/[address] [facility] Monocytes 7.4 2.0 - 12.0 05/25/2019 [facility] HEMATOLOGY Eosinophils 4.1 0.0 - 4.0 05/25/2019 [facility] HEMATOLOGY Basophils 1.0 0.0 - 1.0 05/25/[address] [facility] Neutrophils # 9.8 1.5 - 8.1 05/25/[address] [facility] Lymphocytes # 3.1 1.0 - 5.5 05/25/[address] [facility] Monocytes # 1.1 0.0 - 0.8 05/25/2019 [facility] HEMATOLOGY Eosinophils # 0.6 0.0 - 0.5 05/25/2019 [facility] HEMATOLOGY Basophils # 0.1 0.0 - 0.2 05/25/2019 [facility] CHEM PANEL Glucose Lvl 105 [...] HEMATOLOGY Hct 43.0 36.0 - 48.0 04/03/[address] [facility] MCV 88.7 80.0 - 98.0 04/03/[address] [facility] MCH 29.2 27.0 - 31.0 04/03/[address] [facility] MCHC 33.0 32.0 - 36.0 04/03/[address] [facility] RDW 13.3 11.5 - 14.5 04/03/[address] [facility] Platelet 239 133 - 450 04/03/[address] [facility] MPV 8.4 7.4 - 10.4 04/03/[address] [facility] Segs 66.0 45.0 - 75.0 04/03/[address] [facility] Lymphocytes 21.2 20.0 - 40.0 04/03/2019 [facility] HEMATOLOGY Monocytes 8.2 2.0 - 12.0 04/03/2019 [facility] HEMATOLOGY Eosinophils 3.6 0.0 - 4.0 04/03/2019 [facility] HEMATOLOGY Basophils 1.0 0.0 - 1.0 04/03/2019 [facility] HEMATOLOGY Neutrophils # 7.6 1.5 - 8.1 04/03/[address] [facility] Lymphocytes # 2.4 1.0 - 5.5 04/03/[address] [facility] Monocytes # 0.9 0.0 - 0.8 04/03/2019 [facility] HEMATOLOGY Eosinophils # 0.4 0.0 - 0.5 04/03/[address] [facility] Basophils # 0.1 0.0 - 0.2 04/03/2019 [facility] HEMATOLOGY WBC 11.2 3.7 - 10.4 03/24/2019 [facility] HEMATOLOGY Hgb 13.7 12.0 - 16.0 03/24/[address] [facility] MPV 8.9 7.4 - 10.4 03/24/2019 [facility] HEMATOLOGY RBC 4.66 4.20 - 5.40 03/24/2019 [facility] HEMATOLOGY Platelet 252 133 - 450 03/24/[address] [facility] MCH 29.5 27.0 - 31.0 03/24/[address] [facility] MCHC 33.8 32.0 - 36.0 03/24/[address] [facility] RDW 13.7 11.5 - 14.5 03/24/2019 [facility] [...] HEMATOLOGY Segs 65.7 45.0 - 75.0 03/24/[address] [facility] Lymphocytes 22.6 20.0 - 40.0 03/24/2019 [facility] HEMATOLOGY Neutrophils # 7.4 1.5 - 8.1 03/24/[address] [facility] Monocytes # 0.8 0.0 - 0.8 03/24/2019 [facility] HEMATOLOGY Basophils 0.8 0.0 - 1.0 03/24/[address] [facility] Lymphocytes # 2.5 1.0 - 5.5 03/24/2019 [...] Neutrophils # 8.0 1.5 - 8.1 03/23/[address] [facility] Lymphocytes # 2.1 1.0 - 5.5 03/23/[address] [facility] Lymphocytes 18.5 20.0 - 40.0 03/23/2019 [facility] HEMATOLOGY Monocytes 6.6 2.0 - 12.0 03/23/2019 [facility] HEMATOLOGY Segs 70.8 45.0 - 75.0 03/23/[address] [facility] Platelet 271 133 - 450 03/23/[address] [facility] MPV 8.0 7.4 - 10.4 03/23/2019 [facility] HEMATOLOGY RDW 13.6 11.5 - 14.5 03/23/[address] [facility] MCH 29.3 27.0 - 31.0 03/23/[address] [facility] MCHC 33.3 32.0 - 36.0 03/23/[address] [facility] MCV 88.1 80.0 - 98.0 03/23/2019 [facility] [place] HEMATOLOGY Hgb 14.2 12.0 - 16.0 03/23/2019 [...] HEMATOLOGY Hgb 12.7 12.0 - 16.0 03/06/[address] [facility] MCV 86.6 80.0 - 98.0 03/06/2019 [facility] HEMATOLOGY MPV 8.7 7.4 - 10.4 03/06/[address] [facility] Platelet 247 133 - 450 03/06/2019 [facility] [...] Urobilinogen <=1.0 mg/dL 0.1 - 1.0 [facility] Mucus Few [...] Bacteria Occasional /HPF None Seen /HPF [facility] pH 7.0 5.0 - 8.0 03/01/2019 [facility] URINE AND STOOL UA Ketones Negative mg/dL Negative mg/dL 03/01/2019 [facility] URINE AND STOOL UA Protein Negative mg/dL Negative mg/dL 03/01/2019 [facility] URINE AND STOOL UA Glucose Negative mg/dL Negative mg/dL 03/01/2019 [facility] URINE AND STOOL UA Blood Large [...] [facility] 10.8 01/31/2019 [facility] TOXICOLOGY Vanco Tr TND 2000 01/31/2019 [facility] BACTERIAL - SEROLOGY MRSA by PCR Negative (01/30/19 11:23 AM) 01/30/2019 [facility] TOXICOLOGY Vanco Tr 18.9 01/29/2019 [facility] TOXICOLOGY Vanco Tr TND 1330 01/29/2019 [facility] HEMATOLOGY MCH 28.5 27.0 - 31.0 01/29/2019 [facility] HEMATOLOGY MCV 87.8 80.0 - 98.0 01/29/2019 [facility] HEMATOLOGY Hct 38.5 36.0 - 48.0 01/29/2019 [facility] HEMATOLOGY Hgb 12.5 12.0 - 16.0 01/29/2019 [facility] HEMATOLOGY RBC 4.38 4.20 - 5.40 01/29/2019 [facility] HEMATOLOGY Platelet 244 133 - 450 01/29/2019 [facility] HEMATOLOGY MCHC 32.5 32.0 - 36.0 01/29/2019 [facility] HEMATOLOGY MPV 8.5 7.4 - 10.4 01/29/2019 [facility] HEMATOLOGY RDW 13.5 11.5 - 14.5 01/29/2019 [facility] HEMATOLOGY WBC 8.1 3.7 - 10.4 01/29/2019 [facility] TOXICOLOGY Vanco Tr 18.3 01/28/2019 [facility] TOXICOLOGY Vanco Tr TND 1230 01/28/2019 [facility] CEFEPIME:SUSC:PT:ISOLATE:ORDQN:MONISHA G jade Stain Report Rare Gram Negative Rods No WBC's Seen 01/28/2019 [facility] CEFEPIME:SUSC:PT:ISOLATE:ORDQN:MONISHA Culture: Wound/Abscess w/Gram Stain Moderate Proteus mirabilis Moderate Klebsiella pneumoniae ssp pneumoniae Few Staphylococcus aureus 01/28/2019 [facility] CEFEPIME:SUSC:PT:ISOLATE:ORDQN:MONISHA Staphylococcus aureus Staphylococcus aureus 01/28/2019 [facility] CEFEPIME:SUSC:PT:ISOLATE:ORDQN:MONISHA Klebsiella pneumoniae ssp pneumoniae Klebsiella pneumoniae ssp pneumoniae 01/28/2019 [facility] CEFEPIME:SUSC:PT:ISOLATE:ORDQN:MONISHA P roteus mirabilis Proteus mirabilis 01/28/2019 [facility] URINE AND STOOL UA Leuk Est Negative (01/27/19 6:31 AM) Negative 01/27/2019 [facility] URINE AND STOOL UA WBC 2 0 - 5 01/27/2019 [facility] URINE AND STOOL UA RBC 5 0 - 2 01/27/2019 [facility] URINE AND STOOL UA Sq Epi Moderate /LPF Few /LPF 01/27/2019 [facility] URINE AND STOOL UA Protein Negative mg/dL Negative mg/dL 01/27/2019 [facility] URINE AND STOOL UA pH 6.0 5.0 - 8.0 01/27/2019 [facility] URINE AND STOOL UA Color Yellow *NA* (01/27/19 6:31 AM) Yellow 01/27/2019 [facility] URINE AND STOOL UA Spec Grav 1.028 <=1.030 01/27/2019 [facility] URINE AND STOOL UA Turbidity Slight *ABN* (01/27/19 6:31 AM) Clear 01/27/2019 [facility] URINE AND STOOL UA Mucus Few /LPF None Seen /LPF 01/27/2019 [facility] URINE AND STOOL UA Bacteria Occasional /HPF None Seen /HPF 01/27/2019 [facility] URINE AND STOOL UA Glucose Negative mg/dL Negative mg/dL 01/27/2019 [facility] URINE AND STOOL UA Blood Negative (01/27/19 6:31 AM) Negative 01/27/2019 [facility] URINE AND STOOL UA Bili Negative *NA* (01/27/19 6:31 AM) Negative 01/27/2019 [facility] URINE AND STOOL UA Nitrite Negative (01/27/19 6:31 AM) Negative 01/27/2019 [facility] URINE AND STOOL UA Ketones Negative mg/dL Negative mg/dL 01/27/2019 [facility] URINE AND STOOL UA Urobilinogen <=1.0 mg/dL 0.1 - 1.0 01/27/2019 [facility] URINE CHEM U Preg Negat theron (01/27/19 6:31 AM) Negative 01/27/2019 [facility] CHEM PANEL Lactic Acid Lvl 1.5 0.5 - 2.2 01/27/2019 [facility] CHEM PANEL B/C Ratio 19 6 - 25 01/27/2019 [facility] CHEM PANEL Globulin 3.9 2.7 - 4.2 01/27/2019 [facility] CHEM PANEL A/G Ratio 0.9 0.7 - 1.6 01/27/2019 [facility] CHEM PANEL AGAP 13.9 10.0 - 20.0 01/27/2019 [facility] CHEM PANEL eGFR 106 01/27/2019 [...] should be multiplied by the estimated BMI. [facility] CHEM PANEL AST 18 0 - 37 01/27/2019 [facility] CHEM PANEL Alk Phos 92 39 - 136 01/27/2019 [facility] CHEM PANEL Potassium Lvl 3.9 3.5 - 5.1 01/27/2019 [facility] CHEM PANEL Bili Total 0.3 0.2 - 1.3 01/27/2019 [facility] CHEM PANEL Albumin Lvl 3.6 3.5 - 5.0 01/27/2019 [facility] CHEM PANEL ALT 24 0 - 65 01/27/2019 [facility] CHEM PANEL Total Protein 7.5 6.4 - 8.4 01/27/2019 [facility] CHEM PANEL Chloride Lvl 108 95 - 109 01/27/2019 [facility] CHEM PANEL CO2 24 24 - 32 01/27/2019 [facility] CHEM PANEL Sodium Lvl 142 135 - 145 01/27/2019 [facility] CHEM PANEL Calcium Lvl 8.5 8.5 - 10.5 01/27/2019 [facility] CHEM PANEL BUN 14 7 - 22 01/27/2019 [facility] CHEM PANEL Creatinine Lvl 0.75 0.50 - 1.40 01/27/2019 [facility] CHEM PANEL Glucose Lvl 91 70 - 99 01/27/2019 [facility] HEMATOLOGY Eosinophils 6.5 0.0 - 4.0 01/27/2019 [facility] HEMATOLOGY Monocytes 8.1 2.0 - 12.0 01/27/2019 [facility] HEMATOLOGY Basophils 0.9 0.0 - 1.0 01/27/2019 [facility] HEMATOLOGY Lymphocytes # 2.9 1.0 - 5.5 01/27/2019 [facility] HEMATOLOGY Neutrophils # 7.4 1.5 - 8.1 01/27/2019 [facility] HEMATOLOGY Monocytes # 1.0 0.0 - 0.8 01/27/2019 [facility] HEMATOLOGY Eosinophils # 0.8 0.0 - 0.5 01/27/2019 [facility] HEMATOLOGY Basophils # 0.1 0.0 - 0.2 01/27/2019 [facility] HEMATOLOGY Lymphocytes 23.6 20.0 - 40.0 01/27/2019 [facility] HEMATOLOGY Segs 60.9 45.0 - 75.0 01/27/2019 [facility] HEMATOLOGY WBC 12.2 3.7 - 10.4 01/27/[address] [facility] MCHC 32.4 32.0 - 36.0 01/27/[address] [facility] RDW 13.7 11.5 - 14.5 01/27/[address] [facility] MCH 28.5 27.0 - 31.0 01/27/[address] [facility] MCV 88.2 80.0 - 98.0 01/27/[address] [facility] Hct 41.4 36.0 - 48.0 01/27/[address] [facility] RBC 4.69 4.20 - 5.40 01/27/[address] [facility] Hgb 13.4 12.0 - 16.0 01/27/[address] [facility] MPV 8.8 7.4 - 10.4 01/27/[address] [facility] Platelet 253 133 - 450 01/27/2019 [facility] CHEM PANEL Lactic Acid Lvl [...] should be multiplied by the estimated BMI. [place] CHEM PANEL Sodium Lvl 143 135 - 145 12/08/2018 [facility] CHEM PANEL Creatinine Lvl 0.83 0.50 - 1.40 12/08/2018 [facility] [place] [facility] BUN 6 7 - 22 12/08/2018 [place] CHEM PANEL Glucose Lvl 98 70 - 99 12/08/2018 [place] CHEM PANEL CO2 29 24 - 32 12/08/2018 [place] CHEM PANEL Chloride Lvl 106 95 - 109 12/08/2018 [place] CHEM PANEL Potassium Lvl 3.8 3.5 - 5.1 12/08/2018 [facility] [place] [facility] Calcium Lvl 8.8 8.5 - [...] HEMATOLOGY RDW 13.3 11.5 - 14.5 12/07/[address] [facility] MCHC 33.1 32.0 - 36.0 12/07/[address] [facility] Platelet 274 133 - 450 12/07/[address] [facility] RBC 4.00 4.20 - 5.40 12/07/2018 [facility] HEMATOLOGY WBC 9.8 3.7 - 10.4 12/07/2018 [facility] HEMATOLOGY Monocytes # 0.8 0.0 - 0.8 12/07/2018 [facility] HEMATOLOGY Eosinophils # 0.6 0.0 - 0.5 12/07/2018 [facility] HEMATOLOGY Basophils # 0.1 0.0 - 0.2 12/07/2018 [facility] HEMATOLOGY Segs 61.0 45.0 - 75.0 12/07/[address] [facility] Monocytes 7.8 2.0 - 12.0 12/07/2018 [facility] HEMATOLOGY Basophils 1.1 0.0 - 1.0 12/07/[address] [facility] Eosinophils 6.5 0.0 - 4.0 12/07/[address] [facility] Lymphocytes 23.6 20.0 - 40.0 12/07/[address] [facility] Lymphocytes # 2.3 1.0 - 5.5 12/07/[address] [facility] Neutrophils # 6.0 1.5 - 8.1 12/07/2018 [facility] AMPICILLIN+SULBACTAM:SUSC:PT:ISOLATE:ORDQN:MONISHA Gram Stain Report Rare WBC's No Organisms Seen 12/06/2018 [facility] AMPICILLIN+SULBACTAM:SUSC:PT:ISOLATE:ORDQN:MONISHA Culture: Wound/Abscess w/Gram Stain Many Staphylococcus aureus . Sensitivity Pending 12/06/2018 [facility] AMPICILLIN+SULBACTAM:SUSC:PT:ISOLATE:ORDQN:MONISHA Staphylococcus aureus Staphylococcus aureus 12/06/2018 [facility] Culture: Anaerobic No Anaerobes Is olated After 4 Days 12/06/2018 [facility] TOXICOLOGY Vanco Tr TND 0930 12/06/2018 [...] Lvl 1.1 0.5 - 2.2 12/04/2018 [facility] [place] CHEM PANEL Lactic Acid Lvl 0.7 0.5 - 2.2 12/03/2018 [facility] ENDOCRINOLOGY S Preg Ne gative *NA* (12/03/18 4:23 PM) Negative [facility]/03[facility] [place] [facility] Lactic Acid Lvl 1.0 0.5 - 2.2 10/11/2018 [place] CHEM PANEL B/C Ratio 19 6 - 25 10/11/2018 [facility] [place] [facility] AGAP 9.8 10.0 - 20.0 10/11/2018 [facility] [place] [facility] Globulin 4.5 2.7 - 4.2 10/11/2018 [facility] [place] [facility] A/G Ratio 0.8 0.7 - 1.6 10/11/2018 [facility] [facility] eGFR 93 10/11/2018 Result Comment: [...] should be multiplied by the estimated BMI. [place] CHEM PANEL ALT 24 0 - 65 10/11/2018 [facility] [place] [facility] AST 17 0 - 37 10/11/2018 [facility] [place] [facility] Alk Phos 81 39 - 136 10/11/2018 [facility] [facility] Bili Total 0.3 0.2 - 1.3 10/11/2018 [facility] [place] [facility] Creatinine Lvl 0.83 0.50 - 1.40 10/11/2018 [place] CHEM PANEL Glucose Lvl 84 70 - 99 10/11/2018 [place] CHEM PANEL BUN 16 7 - 22 10/11/2018 [place] CHEM PANEL Potassium Lvl 3.8 3.5 - [...] Acid Lvl 1.5 0.5 - 2.2 09/06/2018 [facility] CHEM PANEL Bili Total 0.5 0.2 - 1.3 09/06/2018 [facility] CHEM PANEL AST 15 0 - 37 09/06/2018 [facility] CHEM PANEL Alk Phos 74 39 - 136 09/06/2018 [facility] CHEM PANEL eGFR 72 09/06/2018 [...] should be multiplied by the estimated BMI. [facility] CHEM PANEL Creatinine Lvl 1.03 0.50 - 1.40 09/06/2018 [facility] CHEM PANEL Sodium Lvl 140 135 - 145 09/06/2018 [facility] CHEM PANEL Potassium Lvl 3.6 3.5 - 5.1 09/06/2018 [facility] CHEM PANEL Total Protein 7.4 6.4 - 8.4 09/06/2018 [facility] CHEM PANEL Albumin Lvl 3.3 3.5 - 5.0 09/06/2018 [facility] CHEM PANEL ALT 27 0 - 65 09/06/2018 [facility] CHEM PANEL Glucose Lvl 120 70 - 99 09/06/2018 [facility] CHEM PANEL BUN 11 7 - 22 09/06/2018 [facility] CHEM PANEL Calcium Lvl 8.3 8.5 - 10.5 09/06/2018 [facility] CHEM PANEL Chloride Lvl 109 95 - 109 09/06/2018 [facility] CHEM PANEL CO2 24 24 - 32 09/06/2018 [facility] CHEM PANEL A/G Ratio 0.8 0.7 - 1.6 09/06/2018 [facility] CHEM PANEL AGAP 10.6 10.0 - 20.0 09/06/2018 [facility] CHEM PANEL B/C Ratio 11 6 - 25 09/06/2018 [facility] CHEM PANEL Globulin 4.1 2.7 - 4.2 09/06/2018 [facility] CHEM PANEL Lipase Lvl 200 73 - 393 09/06/2018 [facility] ENDOCRINOLOGY S Preg Ne gative *NA* (09/06/18 12:46 AM) Negative 09/06/2018 [facility] HEMATOLOGY Platelet 230 133 - 450 09/06/2018 [facility] HEMATOLOGY MPV 8.3 7.4 - 10.4 09/06/[address] [facility] MCHC 33.1 32.0 - 36.0 09/06/2018 [facility] HEMATOLOGY RDW 13.7 11.5 - 14.5 09/06/[address] [facility] MCH 28.5 27.0 - 31.0 09/06/2018 [facility] HEMATOLOGY RBC 4.70 4.20 - 5.40 09/06/2018 [facility] HEMATOLOGY Hgb 13.4 12.0 - 16.0 09/06/2018 [facility] HEMATOLOGY WBC 12.6 3.7 - 10.4 09/06/2018 [facility] HEMATOLOGY Hct 40.5 36.0 - 48.0 09/06/2018 [facility] HEMATOLOGY MCV 86.2 80.0 - 98.0 09/06/2018 [facility] HEMATOLOGY Basophils # 0.1 0.0 - 0.2 09/06/2018 [facility] HEMATOLOGY Eosinophils # 0.4 0.0 - 0.5 09/06/2018 [facility] HEMATOLOGY Monocytes # 0.8 0.0 - 0.8 09/06/2018 [facility] HEMATOLOGY Neutrophils # 8.4 1.5 - 8.1 09/06/2018 [facility] HEMATOLOGY Lymphocytes # 2.9 1.0 - 5.5 09/06/2018 [facility] HEMATOLOGY Eosinophils 3.6 0.0 - 4.0 09/06/2018 [facility] HEMATOLOGY Basophils 0.7 0.0 - 1.0 09/06/2018 [facility] HEMATOLOGY Lymphocytes 22.9 20.0 - 40.0 09/06/2018 [facility] HEMATOLOGY Monocytes 6.3 2.0 - 12.0 09/06/2018 [facility] HEMATOLOGY Segs 66.5 45.0 - [...] Negative *NA* (09/06/18 12:46 AM) Negative 09/06/2018 [facility] URINE AND STOOL UA Bacteria Occasional /HPF None Seen /HPF 09/06/[address] [facility] [address] URINE AND STOOL UA Bili Negative *NA* (09/06/18 12:46 AM) Negative 09/06/2018 [facility] URINE AND STOOL UA Urobilinogen <=1.0 mg/dL 0.1 - 1.0 09/06/[address] [facility] [address] URINE AND STOOL UA Blood Large *ABN* (09/06/18 12:46 AM) Negative 09/06/2018 [facility] CHEM PANEL Magnesium Lvl 1.9 [...] HEMATOLOGY Lymphocytes 26.9 20.0 - 40.0 08/28/[address] [facility] Lymphocytes # 2.1 1.0 - 5.5 08/28/2018 [facility] HEMATOLOGY Eosinophils 6.7 0.0 - 4.0 08/28/2018 [facility] HEMATOLOGY Monocytes 9.3 2.0 - 12.0 08/28/2018 [facility] HEMATOLOGY Segs 56.2 45.0 - 75.0 08/28/[address] [facility] Monocytes # 0.7 0.0 - 0.8 08/28/2018 [facility] HEMATOLOGY Eosinophils # 0.5 0.0 - 0.5 08/28/2018 [facility] HEMATOLOGY Neutrophils # 4.3 1.5 - 8.1 08/28/2018 [facility] HEMATOLOGY Basophils 0.9 0.0 - 1.0 08/28/2018 [facility] HEMATOLOGY Basophils # 0.1 0.0 - 0.2 08/28/[address] [facility] MPV 8.1 7.4 - 10.4 08/28/[address] [facility] RDW 13.4 11.5 - 14.5 08/28/2018 [facility] HEMATOLOGY Platelet 233 133 - 450 08/28/2018 [facility] HEMATOLOGY MCHC 33.2 32.0 - 36.0 08/28/2018 [facility] HEMATOLOGY MCV 87.4 80.0 - 98.0 08/28/[address] [facility] MCH 29.0 27.0 - 31.0 08/28/[address] [facility] Hct 41.5 36.0 - 48.0 08/28/2018 St. [...] HEMATOLOGY Hgb 13.2 12.0 - 16.0 08/27/[address] [facility] RBC 4.56 4.20 - 5.40 08/27/2018 [facility] HEMATOLOGY Hct 39.0 36.0 - 48.0 08/27/2018 [facility] HEMATOLOGY RDW 13.4 11.5 - 14.5 08/27/[address] [facility] MCHC 33.9 32.0 - 36.0 08/27/[address] [facility] MCH 28.9 27.0 - 31.0 08/27/[address] [facility] Platelet 254 133 - 450 08/27/[address] [facility] MCV 85.4 80.0 - 98.0 08/27/[address] [facility] MPV 8.4 7.4 - 10.4 08/27/[address] [facility] Monocytes # 0.9 0.0 - 0.8 08/27/2018 [facility] HEMATOLOGY Eosinophils # 0.5 0.0 - 0.5 08/27/[address] [facility] Basophils # 0.1 0.0 - 0.2 08/27/[address] [facility] Monocytes 11.1 2.0 - 12.0 08/27/[address] [facility] Lymphocytes 24.6 20.0 - 40.0 08/27/[address] [facility] Segs 56.9 45.0 - 75.0 08/27/2018 St[facility] [...] should be multiplied by the estimated BMI. [place] CHEM PANEL Chloride Lvl 106 95 - 109 08/26/2018 [place] CHEM PANEL CO2 27 24 - 32 08/26/2018 [facility]M PANEL BUN 12 7 - 22 [facility] Cal[facility] Lvl 8.0 8.5 - 10.5 08/26/[facility] Potassium Lvl 4.0 3.5 - 5.1 08/26/2018 [facility] Sodium Lvl 140 135 - 145 08/26/2018 [facility] CHEM PANEL Creatinine Lvl 0.56 0.50 - 1.40 08/26/2018 [facility] Glucose Lvl 89 70 - [...] Neutrophils # 5.2 1.5 - 8.1 08/26/[address] [facility] Lymphocytes # 2.1 1.0 - 5.5 08/26/2018 [...] HEMATOLOGY Hgb 12.9 12.0 - 16.0 08/26/[address] [facility] MCH 29.2 27.0 - 31.0 08/26/2018 St. [...] HEMATOLOGY Monocytes 10.7 2.0 - 12.0 05/21/[address] [facility] Hct 35.3 36.0 - 48.0 05/21/[address] [facility] Platelet 267 133 - 450 05/21/[address] [facility] RDW 12.9 11.5 - 14.5 05/21/[address] [facility] MCV 85.6 80.0 - 98.0 05/21/[address] [facility] MCHC 34.4 32.0 - 36.0 05/21/[address] [facility] MCH 29.4 27.0 - 31.0 05/21/[address] [facility] MPV 8.4 7.4 - 10.4 05/21/[address] [facility] RBC 4.12 4.20 - 5.40 05/21/[address] [facility] WBC 7.1 3.7 - 10.4 05/21/2018 St. [...] HEMATOLOGY MPV 8.7 7.4 - 10.4 05/20/[address] [facility] Platelet 249 133 - 450 05/20/2018 St. [...] HEMATOLOGY Eosinophils 0.1 0.0 - 4.0 05/19/[address] [facility] Segs 83.5 45.0 - 75.0 05/19/[address] [facility] Lymphocytes 9.1 20.0 - 40.0 05/19/[address] [facility] Monocytes 7.0 2.0 - 12.0 05/19/2018 [facility] HEMATOLOGY Neutrophils # 8.9 1.5 - 8.1 05/19/[address] [facility] Monocytes # 0.7 0.0 - 0.8 05/19/[address] [facility] Lymphocytes # 1.0 1.0 - 5.5 05/19/[address] [facility] MPV 8.4 7.4 - 10.4 05/19/[address] [facility] Platelet 239 133 - 450 05/19/2018 [facility] HEMATOLOGY RDW 12.8 11.5 - 14.5 05/19/[address] [facility] MCHC 33.2 32.0 - 36.0 05/19/[address] [facility] WBC 10.6 3.7 - 10.4 05/19/[address] [facility] MCV 88.3 80.0 - 98.0 05/19/[address] [facility] Hct 38.9 36.0 - 48.0 05/19/[address] [facility] RBC 4.41 4.20 - 5.40 05/19/[address] [facility] MCH 29.3 27.0 - 31.0 05/19/[address] [facility] Hgb 12.9 12.0 - 16.0 05/19/2018 [facility] TOXICOLOGY Vanco Tr TND 0200 05/19/2018 [facility] TOXICOLOGY Vanco Tr 6.6 05/19/2018 [facility] TOXICOLOGY Vanco Tr 27.1 05/18/2018 [facility] TOXICOLOGY Vanco Tr TND 13:30 05/18/2018 [facility] AMPICILLIN+SULBACTAM:SUSC:PT:ISOLATE:ORDQN:MONISHA Gram Stain Report Many Gram Positive Cocci In Clusters No WBC's Seen 05/18/[facility] AMPICILLIN+SULBACTAM:SUSC:PT:ISOLATE:ORDQN:MONISHA Culture: Wound/Abscess w/Gram Stain Many [...] - 5.0 05/17/2018 [facility] CHEM [facility] Total Protein 7.3 6.4 - 8.4 05/17/2018 [facility] ENDOCRINOLOGY S Preg Ne gative *NA* (05/17/18 12:24 AM) Negative 05/17/2018 [facility] CARDIAC ENZYMES Troponin-I <0.02 0.00 - 0.40 01/12/2018 [facility] CHEM PANEL A/G Ratio 1.0 0.7 - 1.6 01/12/2018 [facility] CHEM PANEL B/C Ratio 13 6 - 25 01/12/2018 [facility] CHEM PANEL Globulin 3.5 2.7 - 4.2 01/12/2018 [facility] CHEM PANEL AGAP 12.2 10.0 - 20.0 01/12/2018 [facility] CHEM PANEL eGFR 102 01/12/2018 [...] should be multiplied by the estimated BMI. [facility] CHEM PANEL Alk Phos 76 39 - 136 01/12/2018 [facility] CHEM PANEL AST 39 0 - 37 01/12/2018 [facility] CHEM PANEL ALT 38 0 - 65 01/12/2018 [facility] CHEM PANEL Bili Total 0.7 0.2 - 1.3 01/12/2018 [facility] CHEM PANEL Glucose Lvl 93 70 - 99 01/12/2018 [facility] CHEM PANEL Creatinine Lvl 0.78 0.50 - 1.40 01/12/2018 [facility] CHEM PANEL BUN 10 7 - 22 01/12/2018 [facility] CHEM PANEL Sodium Lvl 139 135 - 145 01/12/2018 [facility] CHEM PANEL Calcium Lvl 8.3 8.5 - 10.5 01/12/2018 [facility] CHEM PANEL Total Protein 7.0 6.4 - 8.4 01/12/2018 [facility] CHEM PANEL Albumin Lvl 3.5 3.5 - 5.0 01/12/2018 [facility] CHEM PANEL CO2 24 24 - 32 01/12/2018 [facility] CHEM PANEL Chloride Lvl 107 95 - 109 01/12/2018 [facility] CHEM PANEL Potassium Lvl 4.2 3.5 - 5.1 01/12/2018 [facility] ENDOCRINOLOGY S Preg Ne gative *NA* (01/12/18 4:58 PM) Negative 01/12/2018 [facility] HEMATOLOGY Lymphocytes # 2.4 1.0 - 5.5 01/12/2018 [facility] HEMATOLOGY Monocytes # 0.9 0.0 - 0.8 01/12/2018 [facility] HEMATOLOGY Segs-Bands # 6.6 1.5 - 8.1 01/12/2018 [facility] HEMATOLOGY Eosinophils 5.1 0.0 - 4.0 01/12/[address] [facility] Lymphocytes 22.9 20.0 - 40.0 01/12/2018 [facility] HEMATOLOGY Basophils 0.8 0.0 - 1.0 01/12/2018 [facility] HEMATOLOGY Monocytes 8.8 2.0 - 12.0 01/12/2018 [facility] HEMATOLOGY Segs 62.4 45.0 - 75.0 01/12/2018 [facility] HEMATOLOGY Eosinophils # 0.5 0.0 - 0.5 01/12/[address] [facility] Basophils # 0.1 0.0 - 0.2 01/12/2018 [facility] HEMATOLOGY MPV 9.0 7.4 - 10.4 01/12/2018 [facility] HEMATOLOGY RBC 4.80 4.20 - 5.40 01/12/2018 [facility] HEMATOLOGY WBC 10.6 3.7 - 10.4 01/12/2018 [facility] HEMATOLOGY Hgb 14.2 12.0 - 16.0 01/12/2018 [facility] HEMATOLOGY Platelet 227 133 - 450 01/12/2018 [facility] HEMATOLOGY RDW 12.7 11.5 - 14.5 01/12/[address] [facility] MCHC 33.4 32.0 - 36.0 01/12/2018 [facility] HEMATOLOGY MCV 88.3 80.0 - 98.0 01/12/2018 [facility] HEMATOLOGY Hct 42.4 36.0 - 48.0 01/12/2018 [facility] HEMATOLOGY MCH 29.5 27.0 - 31.0 01/12/2018 [facility] CHEM PANEL eGFR 108 12/31/2016 [...] should be multiplied by the estimated BMI. [facility] CHEM PANEL Glucose Lvl 86 70 - 99 12/31/2016 [facility] CHEM PANEL Sodium Lvl 139 135 - 145 12/31/2016 [facility] CHEM PANEL BUN 9 7 - 22 12/31/2016 [facility] CHEM PANEL Creatinine Lvl 0.74 0.50 - 1.40 12/31/2016 [facility] CHEM PANEL Total Protein 7.1 6.4 - 8.4 12/31/2016 [facility] CHEM PANEL CO2 25 24 - 32 12/31/2016 [facility] CHEM PANEL Calcium Lvl 8.7 8.5 - 10.5 12/31/2016 [facility] CHEM PANEL Potassium Lvl 3.8 3.5 - 5.1 12/31/2016 [facility] CHEM PANEL Chloride Lvl 106 95 - 109 12/31/2016 [facility] CHEM PANEL AST 13 0 - 37 12/31/2016 [facility] CHEM PANEL Alk Phos 83 39 - 136 12/31/2016 [facility] CHEM PANEL Albumin Lvl 3.5 3.5 - 5.0 12/31/2016 [facility] CHEM PANEL ALT 22 0 - 65 12/31/2016 [facility] CHEM PANEL Bili Total 0.4 0.2 - 1.3 12/31/2016 [facility] CHEM PANEL B/C Ratio 12 6 - 25 12/31/2016 [facility] CHEM PANEL Globulin 3.6 2.7 - 4.2 12/31/2016 [facility] CHEM PANEL A/G Ratio 1.0 0.7 - 1.6 12/31/2016 [facility] CHEM PANEL AGAP 11.8 10.0 - 20.0 12/31/2016 [facility] CHEM PANEL Lipase Lvl 135 73 - 393 12/31/2016 [facility] ENDOCRINOLOGY S Preg Ne gative *NA* (12/31/16 12:53 AM) Negative 12/31/2016 [facility] HEMATOLOGY Segs 53.9 45.0 - 75.0 12/31/2016 [facility] HEMATOLOGY Eosinophils 4.9 0.0 - 4.0 12/31/2016 [facility] HEMATOLOGY Basophils 1.2 0.0 - 1.0 12/31/2016 [facility] HEMATOLOGY Segs-Bands # 5.0 1.5 - 8.1 12/31/2016 [facility] HEMATOLOGY Lymphocytes 31.8 20.0 - 40.0 12/31/2016 [facility] HEMATOLOGY Monocytes 8.2 2.0 - 12.0 12/31/2016 [facility] HEMATOLOGY Basophils # 0.1 0.0 - 0.2 12/31/[address] [facility] Lymphocytes # 3.0 1.0 - 5.5 12/31/2016 [facility] HEMATOLOGY Monocytes # 0.8 0.0 - 0.8 12/31/2016 [facility] HEMATOLOGY Eosinophils # 0.5 0.0 - 0.5 12/31/[address] [facility] MPV 9.6 7.4 - 10.4 12/31/[address] [facility] MCHC 33.1 32.0 - 36.0 12/31/[address] [facility] RDW 12.4 11.5 - 14.5 12/31/2016 [facility] HEMATOLOGY Platelet 214 133 - 450 12/31/2016 [facility] HEMATOLOGY MCV 89.8 80.0 - 98.0 12/31/[address] [facility] MCH 29.7 27.0 - 31.0 12/31/2016 [facility] HEMATOLOGY Hct 45.3 36.0 - 48.0 12/31/2016 [facility] HEMATOLOGY WBC 9.3 3.7 - 10.4 12/31/[address] [facility] RBC 5.04 4.20 - 5.40 12/31/[address] [facility] Hgb 15.0 12.0 - 16.0 12/31/2016 [facility] URINE AND STOOL UA Mucus Many /LPF None Seen /LPF 12/31/2016 [facility] URINE AND STOOL UA Amorph Miriam Occasional /HPF None Seen /HPF 12/31/2016 [facility] URINE AND STOOL UA RBC 33 0 - 2 12/31/2016 [facility] URINE AND STOOL UA WBC 27 0 - 5 12/31/2016 [facility] URINE AND STOOL UA Bacteria Many /HPF None Seen /HPF 12/31/2016 [facility] URINE AND STOOL UA Sq Epi Many /LPF Few /LPF 12/31/2016 [facility] URINE AND STOOL UA Protein 100 mg/dL Negative mg/dL 12/31/2016 [facility] URINE AND STOOL UA Ketones Trace *ABN* (12/31/16 12:53 AM) Negative 12/31/2016 [facility] URINE AND STOOL UA Blood Large *ABN* (12/31/16 12:53 AM) Negative 12/31/2016 [facility] URINE AND STOOL UA Bili Moderate *ABN* (12/31/16 12:53 AM) Negative 12/31/2016 [facility] URINE AND STOOL UA Color Gina *ABN* (12/31/16 12:53 AM) Yellow 12/31/2016 [facility] URINE AND STOOL UA Nitrite Positive *ABN* (12/31/16 12:53 AM) Negative 12/31/2016 [facility] URINE AND STOOL UA Urobilinogen 2.0 0.1 - 1.0 12/31/2016 [facility] URINE AND STOOL UA Leuk Est Trace *ABN* (12/31/16 12:53 AM) Negative 12/31/2016 [facility] URINE AND STOOL UA Turbidity Cloudy *ABN* (12/31/16 12:53 AM) Clear 12/31/2016 [facility] URINE AND STOOL UA Spec Grav 1.025 <=1.030 12/31/2016 [facility] URINE AND STOOL UA pH 6.5 5.0 - 8.0 12/31/2016 [facility] URINE AND STOOL UA Glucose Negative (12/31/16 12:53 AM) Negative 12/31/2016 [facility] CHEM PANEL Lipase Lvl 156 73 - 393 12/25/2016 [facility] CHEM PANEL eGFR 96 12/25/2016 [...] Alk Phos 94 39 - 136 12/25/2016 [facility] CHEM PANEL Creatinine Lvl 0.82 [...] PANEL Globulin 4.0 2.7 - 4.2 12/25/2016 [facility] HEMATOLOGY PTT 32.0 22.9 - 35.8 12/25/2016 [facility] HEMATOLOGY INR 1.10 0.85 - 1.17 12/25/2016 [facility] HEMATOLOGY PT 14.4 12.0 - 14.7 12/25/2016 [facility] HEMATOLOGY Hgb 15.1 12.0 - 16.0 12/25/2016 [facility] HEMATOLOGY Hct 45.6 36.0 - 48.0 12/25/2016 [facility] HEMATOLOGY MCV 89.9 80.0 - 98.0 12/25/2016 [facility] HEMATOLOGY MCH 29.8 27.0 - 31.0 12/25/2016 [facility] HEMATOLOGY WBC 10.7 3.7 - 10.4 12/25/2016 [facility] HEMATOLOGY RBC 5.08 4.20 - 5.40 12/25/2016 [facility] HEMATOLOGY MCHC 33.2 32.0 - 36.0 12/25/2016 [facility] HEMATOLOGY RDW 12.7 11.5 - 14.5 12/25/2016 [facility] HEMATOLOGY MPV 9.3 7.4 - 10.4 12/25/2016 [facility] HEMATOLOGY Platelet 232 133 - 450 12/25/2016 [facility] HEMATOLOGY Eosinophils 1.9 0.0 - 4.0 12/25/2016 [facility] HEMATOLOGY Basophils 0.7 0.0 - 1.0 12/25/2016 [facility] HEMATOLOGY Monocytes 6.7 2.0 - 12.0 12/25/2016 [facility] HEMATOLOGY Lymphocytes # 2.5 1.0 - 5.5 12/25/2016 [facility] HEMATOLOGY Monocytes # 0.7 0.0 - 0.8 12/25/2016 [facility] HEMATOLOGY Segs-Bands # 7.2 1.5 - 8.1 12/25/2016 [facility] HEMATOLOGY Eosinophils # 0.2 0.0 - 0.5 12/25/2016 [facility] HEMATOLOGY Basophils # 0.1 0.0 - 0.2 12/25/2016 [facility] HEMATOLOGY Segs 67.6 45.0 - 75.0 12/25/2016 [facility] HEMATOLOGY Lymphocytes 23.1 20.0 - 40.0 12/25/2016 [facility] CHEM PANEL Lipase Lvl 165 73 - 393 07/20/2016 [facility] CHEM PANEL A/G Ratio 1.0 0.7 - 1.6 07/20/2016 [facility] CHEM PANEL Globulin 3.9 2.7 - 4.2 07/20/2016 [facility] CHEM PANEL B/C Ratio 10 6 - 25 07/20/2016 [facility] CHEM PANEL AGAP 13.0 10.0 - 20.0 07/20/2016 [facility] CHEM PANEL AST 18 0 - 37 07/20/2016 [facility] CHEM PANEL ALT 24 0 - 65 07/20/2016 [facility] CHEM PANEL eGFR 117 07/20/2016 [...] should be multiplied by the estimated BMI. [facility] CHEM PANEL Albumin Lvl 3.9 3.5 - 5.0 07/20/2016 [facility] CHEM PANEL Total Protein 7.8 6.4 - 8.4 07/20/2016 [facility] CHEM PANEL Calcium Lvl 8.7 8.5 - 10.5 07/20/2016 [facility] CHEM PANEL Bili Total 0.3 0.2 - 1.3 07/20/2016 [facility] CHEM PANEL Alk Phos 79 39 - 136 07/20/2016 [facility] CHEM PANEL Creatinine Lvl 0.70 0.50 - 1.40 07/20/2016 [facility] CHEM PANEL BUN 7 7 - 22 07/20/2016 [facility] CHEM PANEL CO2 28 24 - 32 07/20/2016 [facility] CHEM PANEL Chloride Lvl 104 95 - 109 07/20/2016 [facility] CHEM PANEL Potassium Lvl 4.0 3.5 - 5.1 07/20/2016 [facility] CHEM PANEL Sodium Lvl 141 135 - 145 07/20/2016 [facility] CHEM PANEL Glucose Lvl 84 70 - 99 07/20/2016 [facility] HEMATOLOGY RDW 12.6 11.5 - 14.5 07/20/2016 [facility] HEMATOLOGY Platelet 238 133 - 450 07/20/2016 [facility] HEMATOLOGY Hgb 15.3 12.0 - 16.0 07/20/2016 [facility] HEMATOLOGY RBC 5.08 4.20 - 5.40 07/20/2016 [facility] HEMATOLOGY WBC 10.8 3.7 - 10.4 07/20/2016 [facility] HEMATOLOGY MPV 8.9 7.4 - 10.4 07/20/2016 [facility] HEMATOLOGY MCV 88.5 80.0 - 98.0 07/20/2016 [facility] HEMATOLOGY Hct 44.9 36.0 - 48.0 07/20/2016 [facility] HEMATOLOGY MCH 30.1 27.0 - 31.0 07/20/2016 [facility] HEMATOLOGY MCHC 34.0 32.0 - 36.0 07/20/2016 [facility] HEMATOLOGY Eosinophils # 0.6 0.0 - 0.5 07/20/2016 [facility] HEMATOLOGY Basophils # 0.1 0.0 - 0.2 07/20/2016 [facility] HEMATOLOGY Lymphocytes # 2.6 1.0 - 5.5 07/20/2016 [facility] HEMATOLOGY Monocytes # 0.5 0.0 - 0.8 07/20/2016 [facility] HEMATOLOGY Segs-Bands # 7.0 1.5 - 8.1 07/20/2016 [facility] HEMATOLOGY Eosinophils 5.6 0.0 - 4.0 07/20/2016 [facility] HEMATOLOGY Basophils 0.9 0.0 - 1.0 07/20/2016 [facility] HEMATOLOGY Monocytes 4.6 2.0 - 12.0 07/20/2016 [facility] HEMATOLOGY Segs 65.0 45.0 - 75.0 07/20/2016 [facility] HEMATOLOGY Lymphocytes 23.9 20.0 - 40.0 07/20/2016 [facility] URINE AND STOOL UA Urobilinogen <=1.0 mg/dL 0.1 - 1.0 07/20/2016 [facility] URINE AND STOOL UA Color Colorless 07/20/2016 [facility] URINE AND STOOL UA pH 8.0 5.0 - 8.0 07/20/2016 [facility] URINE AND STOOL UA Protein Negative mg/dL Negative mg/dL 07/20/2016 [facility] URINE AND STOOL UA Turbidity Clear (07/19/16 7:59 PM) Clear 07/20/2016 [facility] URINE AND STOOL UA Spec Grav 1.005 <=1.030 07/20/2016 [facility] URINE AND STOOL UA Nitrite Negative (07/19/16 7:59 PM) Negative 07/20/2016 [facility] URINE AND STOOL UA Glucose Negative mg/dL Negative mg/dL 07/20/2016 [facility] URINE AND STOOL UA Sq Epi Occasional /LPF Few /LPF 07/20/2016 [facility] URINE AND STOOL UA Blood Small *ABN* (07/19/16 7:59 PM) Negative 07/20/2016 [facility] URINE AND STOOL UA Leuk Est Negative (07/19/16 7:59 PM) Negative 07/20/2016 [facility] URINE AND STOOL UA Bili Negative *NA* (07/19/16 7:59 PM) Negative 07/20/2016 [facility] URINE AND STOOL UA Bacteria Occasional /HPF None Seen /HPF 07/20/2016 [facility] URINE AND STOOL UA Ketones Negative mg/dL Negative mg/dL 07/20/2016 [facility] URINE AND STOOL UA WBC <1 0 - 5 07/20/2016 [facility] URINE AND STOOL UA RBC 1 0 - 2 07/20/2016 [facility] URINE CHEM U Preg Negat theron (07/19/16 7:59 PM) Negative 07/20/2016 [facility] CHEM PANEL Creatinine Lvl 0.66 0.50 - 1.40 04/14/2016 [facility] CHEM PANEL Potassium Lvl 3.7 3.5 - 5.1 04/14/2016 [facility] CHEM PANEL Sodium Lvl 138 135 - 145 04/14/2016 [facility] CHEM PANEL Glucose Lvl 87 70 - 99 04/14/2016 [facility] CHEM PANEL BUN 13 7 - 22 04/14/2016 [facility] CHEM PANEL Chloride Lvl 107 95 - 109 04/14/2016 [facility] CHEM PANEL ALT 22 0 - 65 04/14/2016 [facility] CHEM PANEL Albumin Lvl 3.8 3.5 - 5.0 04/14/2016 [facility] CHEM PANEL CO2 26 24 - 32 04/14/2016 [facility] CHEM PANEL eGFR 119 04/14/2016 [...] should be multiplied by the estimated BMI. [facility] CHEM PANEL Bili Total 0.3 0.2 - 1.3 04/14/2016 [facility] CHEM PANEL Alk Phos 72 39 - 136 04/14/2016 [facility] CHEM PANEL AST 13 0 - 37 04/14/2016 [facility] CHEM PANEL Total Protein 7.4 6.4 - 8.4 04/14/2016 [facility] CHEM PANEL Calcium Lvl 8.3 8.5 - 10.5 04/14/2016 [facility] CHEM PANEL Globulin 3.6 2.7 - 4.2 04/14/2016 [facility] CHEM PANEL A/G Ratio 1.1 0.7 - 1.6 04/14/2016 [facility] CHEM PANEL B/C Ratio 20 6 - 25 04/14/2016 [facility] CHEM PANEL AGAP 8.7 10.0 - 20.0 04/14/2016 [facility] CHEM PANEL Lipase Lvl 166 73 - 393 04/14/2016 [facility] CHEM PANEL Amylase Lvl 45 25 - 115 04/14/[address] [facility] MCH 29.2 27.0 - 31.0 04/14/2016 [facility] HEMATOLOGY MCV 87.0 80.0 - 98.0 04/14/2016 [facility] HEMATOLOGY Hct 40.7 36.0 - 48.0 04/14/[address] [facility] Hgb 13.6 12.0 - 16.0 04/14/[address] [facility] RBC 4.67 4.20 - 5.40 04/14/2016 [facility] HEMATOLOGY MPV 8.6 7.4 - 10.4 04/14/[address] [facility] Platelet 207 133 - 450 04/14/[address] [facility] MCHC 33.6 32.0 - 36.0 04/14/[address] [facility] RDW 13.0 11.5 - 14.5 04/14/[address] [facility] WBC 11.2 3.7 - 10.4 04/14/[address] [facility] Monocytes # 0.9 0.0 - 0.8 04/14/[address] [facility] Lymphocytes # 3.3 1.0 - 5.5 04/14/2016 [facility] HEMATOLOGY Segs-Bands # 6.3 1.5 - 8.1 04/14/2016 [facility] HEMATOLOGY Basophils 0.8 0.0 - 1.0 04/14/2016 [facility] HEMATOLOGY Eosinophils 5.9 0.0 - 4.0 04/14/2016 [facility] HEMATOLOGY Monocytes 8.2 2.0 - 12.0 04/14/2016 [facility] HEMATOLOGY Lymphocytes 29.1 20.0 - 40.0 04/14/2016 [facility] HEMATOLOGY Segs 56.0 45.0 - 75.0 04/14/2016 [facility] HEMATOLOGY Basophils # 0.1 0.0 - 0.2 04/14/2016 [facility] HEMATOLOGY Eosinophils # 0.7 0.0 - 0.5 04/14/2016 [facility] URINE AND STOOL UA Blood Large *ABN* (04/14/16 1:13 AM) Negative 04/14/2016 [facility] URINE AND STOOL UA Bili Negative *NA* (04/14/16 1:13 AM) Negative 04/14/2016 [facility] URINE AND STOOL UA pH 5.0 5.0 - 8.0 04/14/2016 [facility] URINE AND STOOL UA Spec Grav 1.020 <=1.030 04/14/2016 [facility] URINE AND STOOL UA Turbidity Slight *ABN* (04/14/16 1:13 AM) Clear 04/14/2016 [facility] URINE AND STOOL UA Protein Negative mg/dL Negative mg/dL 04/14/2016 [facility] URINE AND STOOL UA Nitrite Negative (04/14/16 1:13 AM) Negative 04/14/2016 [facility] URINE AND STOOL UA WBC 7 0 - 5 04/14/2016 [facility] URINE AND STOOL UA Sq Epi Many /LPF Few /LPF 04/14/2016 [facility] URINE AND STOOL UA RBC 3 0 - 2 04/14/2016 [facility] URINE AND STOOL UA Leuk Est Trace *ABN* (04/14/16 1:13 AM) Negative 04/14/2016 [facility] URINE AND STOOL UA Ketones Negative mg/dL Negative mg/dL 04/14/2016 [facility] URINE AND STOOL UA Glucose Negative mg/dL Negative mg/dL 04/14/2016 [facility] URINE AND STOOL UA Bacteria Many /HPF None Seen /HPF 04/14/2016 [facility] URINE AND STOOL UA Mucus Few /LPF None Seen /LPF 04/14/2016 [facility] URINE AND STOOL UA Urobilinogen <=1.0 mg/dL 0.1 - 1.0 04/14/[address] [facility] [address] URINE AND STOOL UA Color Yellow *NA* (04/14/16 1:13 AM) Yellow 04/14/2016 [facility] URINE CHEM U Preg Negat theron (04/14/16 1:13 AM) Negative 04/14/2016 [facility] URINE AND STOOL UA Color Gina 02/24/2016 [facility] URINE AND STOOL UA WBC 7 0 - 5 02/24/2016 [facility] URINE AND STOOL UA Bili Negative *NA* (02/24/16 12:51 AM) Negative 02/24/2016 [facility] URINE AND STOOL UA Leuk Est Trace *ABN* (02/24/16 12:51 AM) Negative 02/24/2016 [facility] URINE AND STOOL UA Sq Epi Moderate /LPF Few /LPF 02/24/2016 [facility] URINE AND STOOL UA Urobilinogen 2.0 0.1 - 1.0 02/24/2016 [facility] URINE AND STOOL UA Nitrite Negative (02/24/16 12:51 AM) Negative 02/24/2016 [facility] URINE AND STOOL UA Blood Small *ABN* (02/24/16 12:51 AM) Negative 02/24/2016 [facility] URINE AND STOOL UA Mucus Many /LPF None Seen /LPF 02/24/2016 [facility] URINE AND STOOL UA RBC 8 0 - 2 02/24/2016 [facility] URINE AND STOOL UA Bacteria Occasional /HPF None Seen /HPF 02/24/2016 [facility] URINE AND STOOL UA Turbidity Clear (02/24/16 12:51 AM) Clear 02/24/2016 [facility] URINE AND STOOL UA Spec Grav 1.027 <=1.030 02/24/2016 [facility] URINE AND STOOL UA Glucose Negative mg/dL Negative mg/dL 02/24/[address] [facility] [address] URINE AND STOOL UA Ketones Trace mg/dL Negative mg/dL 02/24/[address] [facility] [address] URINE AND STOOL UA pH 7.0 5.0 - 8.0 02/24/2016 [facility] URINE AND STOOL UA Protein 30 mg/dL Negative mg/dL 02/24/2016 [facility] URINE CHEM U Preg Negat theron (02/24/16 12:51 AM) Negative 02/24/2016 [facility] CHEM PANEL Alk Phos 81 [...] A/G Ratio 0.9 0.7 - 1.6 02/24/2016 [facility] CHEM PANEL Globulin 4.2 2.0 - 4.0 02/24/2016 [facility] CHEM PANEL Albumin Lvl 3.8 3.5 - 5.0 02/24/2016 [facility] CHEM PANEL Lipase Lvl 127 73 - 393 02/24/2016 [facility] CHEM PANEL Amylase Lvl 45 25 - 115 02/24/2016 [facility] HEMATOLOGY Hct 44.3 36.0 - 48.0 02/24/2016 [facility] HEMATOLOGY Hgb 14.4 12.0 - 16.0 02/24/2016 [facility] HEMATOLOGY RBC 4.96 4.20 - 5.40 02/24/2016 [facility] HEMATOLOGY WBC 12.3 3.7 - 10.4 02/24/2016 [facility] HEMATOLOGY MCV 89.3 80.0 - 98.0 02/24/2016 [facility] HEMATOLOGY Platelet 209 133 - 450 02/24/2016 [facility] HEMATOLOGY RDW 13.1 11.5 - 14.5 02/24/2016 [facility] HEMATOLOGY MCHC 32.4 32.0 - 36.0 02/24/[address] [facility] MCH 29.0 27.0 - 31.0 02/24/2016 [facility] HEMATOLOGY MPV 8.7 7.4 - 10.4 02/24/2016 [facility] HEMATOLOGY Segs 62.1 45.0 - 75.0 02/24/2016 [facility] HEMATOLOGY Basophils 0.8 0.0 - 1.0 02/24/2016 [facility] [facility] HEMAT[facility]Y Eosinophils 4.6 0.0 - 4.0 02/24/2016 [facility] HEMATOLOGY Monocytes 7.6 2.0 - 12.0 02/24/2016 [facility] HEMATOLOGY Lymphocytes 24.9 20.0 - 40.0 02/24/2016 [facility] HEMATOLOGY Segs-Bands # 7.7 1.5 - 8.1 02/24/2016 [facility] HEMATOLOGY Eosinophils # 0.6 0.0 - 0.5 02/24/2016 [facility] HEMATOLOGY Lymphocytes # 3.1 1.0 - 5.5 02/24/2016 [facility] HEMATOLOGY Basophils # 0.1 0.0 - 0.2 02/24/2016 [facility] HEMATOLOGY Monocytes # 0.9 0.0 - 0.8 02/24/2016 [facility] CHEM PANEL Lipase Lvl 126 73 - 393 01/17/2016 [facility] [place] CHEM PANEL Globulin 4.1 2.0 - 4.0 01/17/2016 [place] CHEM PANEL A/G Ratio 0.9 0.7 - 1.6 01/17/2016 [place] CHEM PANEL AGAP 11.0 10.0 - 20.0 01/17/2016 [place] CHEM PANEL B/C Ratio 11 6 - 25 01/17/2016 [place] CHEM PANEL eGFR 119 01/17/2016 Result Comment: [...] should be multiplied by the estimated BMI. [place] CHEM PANEL Total Protein 7.9 6.4 - 8.4 [facility] ASPARTATE TRANSAMINASE 16 0 - 37 01/17/2016 [place] CHEM PANEL Bili Total 0.4 0.2 - 1.3 01/17/2016 [place] CHEM PANEL Potassium Lvl 4.0 3.5 - 5.1 01/17/2016 [place] CHEM PANEL CO2 27 24 - 32 01/17/2016 [place] CHEM PANEL Chloride Lvl 105 95 - 109 01/17/2016 [place] CHEM PANEL Calcium Lvl 8.5 8.5 - 10.5 01/17/2016 [place] CHEM PANEL Sodium Lvl 139 135 - 145 01/17/2016 [place] CHEM PANEL Glucose Lvl 84 70 - 99 01/17/2016 [place] CHEM PANEL Alk Phos 88 39 - 136 01/17/2016 [place] CHEM PANEL Creatinine Lvl 0.66 0.50 - 1.40 01/17/2016 [place] CHEM PANEL BUN 7 7 - 22 [...] HEMATOLOGY MPV 8.4 7.4 - 10.4 01/17/[address] [facility] MCV 89.2 80.0 - 98.0 01/17/2016 [facility] HEMATOLOGY MCH 29.7 27.0 - 31.0 01/17/[address] [facility] MCHC 33.3 32.0 - 36.0 01/17/2016 St. [...] Protein Negative (01/16/16 9:15 PM) Negative [facility] UA Turbidity Clear (01/16/16 [...] Bacteria Occasional /HPF None Seen /HPF [facility] Preg Negat theron (01/16/16 9:15 PM) Negative 01/17/2016 [facility] URINE AND STOOL UA Urobilinogen <=1.0 mg/dL 0.1 - 1.0 10/13/2015 [facility] URINE AND STOOL UA Color Gina 10/13/2015 [facility] URINE AND STOOL UA Turbidity Slight *ABN* (10/13/15 3:42 AM) Clear 10/13/2015 [facility] URINE AND STOOL UA Spec Grav 1.026 <=1.030 10/13/2015 [facility] URINE AND STOOL UA pH 6.0 5.0 - 8.0 10/13/2015 [facility] URINE AND STOOL UA RBC 7 0 - 2 10/13/2015 [facility] URINE AND STOOL UA WBC 6 0 - 5 10/13/2015 [facility] URINE AND STOOL UA Sq Epi Few /LPF Few /LPF 10/13/2015 [facility] URINE AND STOOL UA Leuk Est Negative (10/13/15 3:42 AM) Negative 10/13/2015 [facility] URINE AND STOOL UA Nitrite Negative (10/13/15 3:42 AM) Negative 10/13/2015 [facility] URINE AND STOOL UA Mucus Moderate /LPF None Seen /LPF 10/13/[address] [facility] [address] URINE AND STOOL UA Bacteria Occasional /HPF None Seen /HPF 10/13/[address] [facility] [address] URINE AND STOOL UA Blood Large *ABN* (10/13/15 3:42 AM) Negative 10/13/2015 [facility] URINE AND STOOL UA Bili Negative *NA* (10/13/15 3:42 AM) Negative 10/13/2015 [facility] URINE AND STOOL UA Ketones Trace mg/dL Negative mg/dL 10/13/[address] [facility] [address] URINE AND STOOL UA Glucose Negative mg/dL Negative mg/dL 10/13/2015 [facility] URINE AND STOOL UA Protein 100 mg/dL Negative mg/dL 10/13/2015 [facility] URINE CHEM U Preg Negat theron (10/13/15 3:42 AM) Negative 10/13/2015 [facility] CHEM PANEL Globulin 3.9 2.0 - 4.0 10/13/2015 [facility] CHEM PANEL A/G Ratio 1.0 0.7 - 1.6 10/13/2015 [facility] CHEM PANEL B/C Ratio 13 6 - 25 10/13/2015 [facility] CHEM PANEL AGAP 9.5 10.0 - 20.0 10/13/2015 [facility] CHEM PANEL eGFR 117 10/13/2015 [...] should be multiplied by the estimated BMI. [facility] CHEM PANEL Bili Total 0.7 0.2 - 1.3 10/13/2015 [facility] CHEM PANEL Alk Phos 79 39 - 136 10/13/2015 [facility] CHEM PANEL AST 23 0 - 37 10/13/2015 [facility] CHEM PANEL ALT 35 0 - 65 10/13/2015 [facility] CHEM PANEL Albumin Lvl 3.8 3.5 - 5.0 10/13/2015 [facility] CHEM PANEL Total Protein 7.7 6.4 - 8.4 10/13/2015 [facility] CHEM PANEL Calcium Lvl 8.8 8.5 - 10.5 10/13/2015 [facility] CHEM PANEL CO2 28 24 - 32 10/13/2015 [facility] CHEM PANEL Chloride Lvl 106 95 - 109 10/13/2015 [facility] CHEM PANEL Potassium Lvl 3.5 3.5 - 5.1 10/13/2015 [facility] CHEM PANEL Creatinine Lvl 0.70 0.50 - 1.40 10/13/2015 [facility] CHEM PANEL BUN 9 7 - 22 10/13/2015 [facility] CHEM PANEL Glucose Lvl 94 70 - 99 10/13/2015 [facility] CHEM PANEL Sodium Lvl 140 135 - 145 10/13/2015 [facility] CHEM PANEL Amylase Lvl 50 25 - 115 10/13/2015 [facility] CHEM PANEL Lipase Lvl 148 73 - 393 10/13/2015 [facility] HEMATOLOGY Platelet 201 133 - 450 10/13/2015 [facility] HEMATOLOGY MPV 9.7 7.4 - 10.4 10/13/2015 [facility] HEMATOLOGY MCHC 33.4 32.0 - 36.0 10/13/2015 [facility] HEMATOLOGY RDW 12.5 11.5 - 14.5 10/13/2015 [facility] HEMATOLOGY WBC 9.9 3.7 - 10.4 10/13/[address] [facility] RBC 5.04 4.20 - 5.40 10/13/[address] [facility] Hgb 15.1 12.0 - 16.0 10/13/2015 [facility] HEMATOLOGY MCH 29.9 27.0 - 31.0 10/13/2015 [facility] HEMATOLOGY Hct 45.2 36.0 - 48.0 10/13/2015 [facility] HEMATOLOGY MCV 89.7 80.0 - 98.0 10/13/2015 [facility] HEMATOLOGY Eosinophils # 0.6 0.0 - 0.5 10/13/2015 [facility] HEMATOLOGY Basophils # 0.1 0.0 - 0.2 10/13/2015 [facility] HEMATOLOGY Lymphocytes # 3.2 1.0 - 5.5 10/13/2015 [facility] HEMATOLOGY Monocytes # 0.8 0.0 - 0.8 10/13/2015 [facility] HEMATOLOGY Segs-Bands # 5.1 1.5 - 8.1 10/13/2015 [facility] HEMATOLOGY Basophils 1.0 0.0 - 1.0 10/13/2015 [facility] HEMATOLOGY Monocytes 8.5 2.0 - 12.0 10/13/2015 [facility] HEMATOLOGY Eosinophils 6.2 0.0 - 4.0 10/13/2015 [facility] HEMATOLOGY Segs 51.7 45.0 - 75.0 10/13/2015 [facility] HEMATOLOGY Lymphocytes 32.6 20.0 - 40.0 10/13/2015 [facility] ELECTROLYTES Potassium Lvl 3.6 3.5 - 5.1 07/04/2015 [facility] CHEM PANEL eGFR 110 07/04/2015 [...] should be multiplied by the estimated BMI. [facility] CHEM PANEL AST 57 0 - 37 07/04/2015 [facility] CHEM PANEL ALT 34 0 [...] PANEL BUN 11 7 - 22 07/04/2015 [facility] CHEM PANEL Creatinine Lvl 0.74 0.50 - 1.40 07/04/2015 [facility] CHEM PANEL Glucose Lvl 85 70 - 99 07/04/2015 [facility] CHEM PANEL Total Protein 7.7 6.4 - 8.4 07/04/2015 [facility] CHEM PANEL Albumin Lvl 3.5 3.5 - 5.0 07/04/2015 [facility] CHEM PANEL B/C Ratio 15 6 - 25 07/04/2015 [facility] CHEM PANEL Calcium Lvl 8.7 8.5 - 10.5 07/04/2015 [facility] CHEM PANEL CO2 24 24 - 32 07/04/2015 [facility] CHEM PANEL Lipase Lvl 138 73 - 393 07/04/2015 [facility] HEMATOLOGY Basophils # 0.1 0.0 - 0.2 07/04/2015 [facility] HEMATOLOGY Eosinophils # 0.7 0.0 - 0.5 07/04/2015 [facility] HEMATOLOGY Lymphocytes # 2.7 1.0 - 5.5 07/04/2015 [facility] HEMATOLOGY Segs-Bands # 7.5 1.5 - 8.1 07/04/2015 [facility] HEMATOLOGY Basophils 1.0 0.0 - 1.0 07/04/2015 [facility] HEMATOLOGY Eosinophils 5.5 0.0 - 4.0 07/04/2015 [facility] HEMATOLOGY Monocytes # 1.0 0.0 - 0.8 07/04/2015 [facility] HEMATOLOGY Monocytes 8.3 2.0 - 12.0 07/04/2015 [facility] HEMATOLOGY Lymphocytes 22.4 20.0 - 40.0 07/04/2015 [facility] HEMATOLOGY Segs 62.8 45.0 - 75.0 07/04/2015 [facility] HEMATOLOGY MCH 29.5 27.0 - 31.0 07/04/2015 [facility] HEMATOLOGY MPV 9.4 7.4 - 10.4 07/04/2015 [facility] HEMATOLOGY Platelet 191 133 - 450 07/04/2015 [facility] HEMATOLOGY RDW 12.7 11.5 - 14.5 07/04/[address] [facility] MCHC 32.5 32.0 - 36.0 07/04/2015 [facility] HEMATOLOGY MCV 90.7 80.0 - 98.0 07/04/2015 [facility] HEMATOLOGY Hct 43.1 36.0 - 48.0 07/04/2015 [facility] HEMATOLOGY Hgb 14.0 12.0 - 16.0 07/04/[address] [facility] RBC 4.76 4.20 - 5.40 07/04/2015 [facility] HEMATOLOGY WBC 12.0 3.7 - 10.4 07/04/2015 [facility] URINE AND STOOL UA WBC 1 0 - 5 07/04/2015 [facility] URINE AND STOOL UA Leuk Est Negative (07/04/15 1:16 AM) Negative 07/04/2015 [facility] URINE AND STOOL UA Sq Epi Few /LPF Few /LPF 07/04/2015 [facility] URINE AND STOOL UA Blood Small *ABN* (07/04/15 1:16 AM) Negative 07/04/2015 [facility] URINE AND STOOL UA Nitrite Negative (07/04/15 1:16 AM) Negative 07/04/2015 [facility] URINE AND STOOL UA [place] Yeast Occasional /HPF None Seen /HPF 07/04/[address] [facility] [address] URINE AND STOOL UA Urobilinogen <=1.0 mg/dL 0.1 - 1.0 07/04/2015 [facility] URINE AND STOOL UA RBC 4 0 - 2 07/04/2015 [facility] URINE AND STOOL UA Mucus Few /LPF None Seen /LPF 07/04/2015 [facility] URINE AND STOOL UA Glucose Negative mg/dL Negative mg/dL 07/04/2015 [facility] URINE AND STOOL UA Protein Negative mg/dL Negative mg/dL 07/04/[address] [facility] [address] URINE AND STOOL UA pH 7.0 5.0 - 8.0 07/04/2015 [facility] URINE AND STOOL UA Bili Negative *NA* (07/04/15 1:16 AM) Negative 07/04/2015 [facility] URINE AND STOOL UA Ketones Trace mg/dL Negative mg/dL 07/04/[address] [facility] [address] URINE AND STOOL UA Color Yellow [...] Urobilinogen <=1.0 mg/dL 0.1 - 1.0 05/17/[address] [facility] [address] URINE AND STOOL UA Bili Negative *NA* (05/17/15 2:36 AM) Negative 05/17/2015 [facility] URINE AND STOOL UA Glucose Negative mg/dL Negative mg/dL 05/17/[address] [facility] [address] URINE AND STOOL UA Ketones Negative mg/dL Negative mg/dL 05/17/[address] [facility] [address] URINE AND STOOL UA Protein Negative mg/dL Negative mg/dL 05/17/[address] [facility] [address] URINE AND STOOL UA Color Yellow *NA* (05/17/15 2:36 AM) Yellow 05/17/2015 [facility] URINE AND STOOL UA Turbidity Clear (05/17/15 2:36 AM) Clear 05/17/2015 [facility] URINE AND STOOL UA Spec Grav 1.016 <=1.030 05/17/2015 [facility] URINE AND STOOL UA pH 6.0 5.0 - 8.0 05/17/2015 [facility] URINE CHEM U Preg Negat theron (05/17/15 2:36 AM) Negative 05/17/2015 [facility] MOLECULAR DIAGNOSTIC N gonorrhea by Amp Det (APTIMA) Negative *NA* (05/15/15 7:19 AM) Negative 05/15/2015 [facility] MOLECULAR DIAGNOSTIC Source APTIMA Endocervix *NA* (05/15/15 7:19 AM) 05/15/2015 [facility] MOLECULAR DIAGNOSTIC Source APTIMA Endocervix *NA* (05/15/15 7:19 AM) 05/15/2015 [facility] MOLECULAR DIAGNOSTIC C trachomatis b y Amp Det (APTIMA) Negative *NA* (05/15/15 7:19 AM) Negative 05/15/2015 [facility] CHEM PANEL Globulin 3.5 2.0 - 4.0 05/15/2015 [facility] CHEM PANEL A/G Ratio 1.1 0.7 - 1.6 05/15/2015 [facility] CHEM PANEL B/C Ratio 9 6 - 25 05/15/2015 [facility] CHEM PANEL AGAP 11.4 10.0 - 20.0 05/15/2015 [facility] CHEM PANEL BUN 7 7 - 22 05/15/2015 [facility] CHEM PANEL Glucose Lvl 87 70 - 99 05/15/2015 [facility] CHEM PANEL Total Protein 7.3 6.4 - 8.4 05/15/2015 [facility] CHEM PANEL ALT 32 0 - 65 05/15/2015 [facility] CHEM PANEL CO2 24 24 - 32 05/15/2015 [facility] CHEM PANEL Albumin Lvl 3.8 3.5 - 5.0 05/15/2015 [facility] CHEM PANEL Alk Phos 87 39 - 136 05/15/2015 [facility] CHEM PANEL AST 16 0 - 37 05/15/2015 [facility] CHEM PANEL Bili Total 0.7 0.2 - 1.3 05/15/2015 [facility] CHEM PANEL eGFR 100 05/15/2015 [...] should be multiplied by the estimated BMI. [facility] CHEM PANEL Chloride Lvl 107 95 - 109 05/15/2015 [facility] CHEM PANEL Potassium Lvl 3.4 3.5 - 5.1 05/15/2015 [facility] CHEM PANEL Calcium Lvl 8.6 8.5 - 10.5 05/15/2015 [facility] CHEM PANEL Sodium Lvl 139 135 - 145 05/15/2015 [facility] CHEM PANEL Creatinine Lvl 0.8 0.5 - 1.4 05/15/[address] [facility] Platelet 212 133 - 450 05/15/[address] [facility] RDW 13.1 11.5 - 14.5 05/15/[address] [facility] MPV 8.9 7.4 - 10.4 05/15/[address] [facility] WBC 13.5 3.7 - 10.4 05/15/[address] [facility] Hgb 14.1 12.0 - 16.0 05/15/[address] [facility] RBC 4.85 4.20 - 5.40 05/15/[address] [facility] Hct 44.3 36.0 - 48.0 05/15/[address] [facility] MCV 91.4 80.0 - 98.0 05/15/[address] [facility] MCH 29.1 27.0 - 31.0 05/15/[address] [facility] MCHC 31.9 32.0 - 36.0 05/15/[address] [facility] Segs 61.6 45.0 - 75.0 05/15/[address] [facility] Lymphocytes # 3.3 1.0 - 5.5 05/15/[address] [facility] Eosinophils # 0.7 0.0 - 0.5 05/15/[address] [facility] Monocytes # 1.0 0.0 - 0.8 05/15/[address] [facility] Basophils # 0.2 0.0 - 0.2 05/15/2015 [facility] HEMATOLOGY Monocytes 7.1 2.0 - 12.0 05/15/2015 [facility] HEMATOLOGY Lymphocytes 24.6 20.0 - 40.0 05/15/2015 [facility] HEMATOLOGY Segs-Bands # 8.3 1.5 - 8.1 05/15/2015 [facility] HEMATOLOGY Basophils 1.2 0.0 - 1.0 05/15/2015 [facility] HEMATOLOGY Eosinophils 5.5 0.0 - 4.0 05/15/2015 [facility] URINE AND STOOL UA Mucus Moderate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 05/17/2015 [facility] Respitory Rate 18 05/17/2015 [facility] Temperature Oral (F) 98.9 F 05/15/2015 [facility] Heart Rate 51 05/15/2015 [facility] Respitory Rate 18 05/15/2015 [facility] Systolic (mm Hg) 114 05/15/2015 [facility] Diastolic (mm Hg) 74 05/15/2015 [facility] Heart Rate 76 05/15/2015 [facility] Respitory Rate 18 05/15/2015 [facility] Systolic (mm Hg) 131 05/15/2015 [facility] Diastolic (mm Hg) 81 05/15/2015 [facility] Temperature Oral (F) 98.1 F 05/15/2015 [facility] Height 167.64 cm 05/15/2015 [facility] BMI Calculated 43.67 05/15/2015 [facility] Weight 122.727 05/15/2015 [facility] Temperature Oral (F) 98.3 F 05/15/2015 [facility] Systolic (mm Hg) 127 05/15/2015 [facility] Diastolic (mm Hg) 74 05/15/2015 [facility] Respitory Rate 20 05/15/2015 [facility] Heart Rate 76 05/15/2015 [facility] Respitory Rate 18 02/14/2015 [facility] Systolic (mm Hg) 105 02/14/2015 [facility] Diastolic (mm Hg) 67 02/14/2015 [facility] Heart Rate 56 02/14/2015 [facility] Heart Rate 57 02/14/2015 [facility] Temperature Oral (F) 98.3 F 02/14/2015 [facility] Respitory Rate 18 02/14/2015 [facility] Systolic (mm Hg) 134 02/14/2015 [facility] Diastolic (mm Hg) 80 02/14/2015 [facility] BMI Calculated 40.11 02/14/2015 [facility] Weight 112.727 02/14/2015 [facility] Temperature Oral (F) 98.6 F 02/14/2015 [facility] Height 167.64 cm 02/14/2015 [facility] Heart Rate 93 02/14/2015 [facility] Respitory Rate 18 02/14/2015 [facility] Systolic (mm Hg) 111 02/14/2015 [facility] Diastolic (mm Hg) 84 02/14/2015 [facility] Diastolic (mm Hg) 78 09/30/2014 [facility] Systolic (mm Hg) 122 09/30/2014 [facility] Temperature Oral (F) 98.3 F 09/30/2014 [facility] Respitory Rate 16 09/30/2014 [facility] Heart Rate 75 09/30/2014 [facility] Temperature Oral (F) 98.2 F 09/30/2014 [facility] Diastolic (mm Hg) 71 09/30/2014 [facility] Heart Rate 71 09/30/2014 [facility] Systolic (mm Hg) 131 09/30/2014 [facility] Respitory Rate 18 09/30/2014 [facility] Respitory Rate 18 09/30/2014 [facility] Heart Rate 76 09/30/2014 [facility] Diastolic (mm Hg) 87 09/30/2014 [facility] Temperature Oral (F) 98.4 F 09/30/2014 [facility] Height 167.64 cm 09/30/2014 [facility] Systolic (mm Hg) 127 09/30/2014 [facility] BMI Calculated 42.05 09/30/2014 [facility] Weight 118.182 09/30/2014 [facility] Encounters Location Location Details Encounter Type Encounter Number Reason For Visit Attending Provider ADM Date DC Date Status Source [facility] [id number] Mario Gu 09/30/2014 09/30/2014 [facility] [id number] Juancho Malloy 02/14/2015 02/14/2015 [facility] [id number] Temitopemary Green 05/15/2015 05/15/2015 [facility] [id number] Rosy Diaz 05/17/2015 05/17/2015 [facility] [id number] Hina Finley 07/04/2015 07/04/2015 [facility] [id number] Rosy Diaz 10/13/2015 10/13/[address] [facility] [id number] Salvador Gutierrezana 01/17/2016 01/17/2016 [facility] [id number] Wilmar Mcgraw 02/24/2016 02/24/2016 [facility] Emergency [id number] Cristino Gilberteal 04/14/2016 04/14/2016 [facility] Emergency [id number] Jeannie Wahluyen 04/16/2016 04/16/2016 [facility] Emergency [id number] Rosalind Floydooqi 04/23/2016 04/23/2016 [facility] Emergency [id number] Jama Lynya 07/20/2016 07/20/2016 [facility] Outpatient [id number] STEVEN TAPIA 11/24/2016 [facility] Emergency [id number] Richard Owen 12/25/2016 12/26/2016 [facility] Observation [id number] Alec Vicente Jr 12/31/2016 12/31/2016 [facility] Emergency [id number] Isacc Melanie 01/12/2018 01/13/[address] [facility] Inpatient [id number] Oralia Floydooqui 05/17/2018 05/22/2018 [facility] [place] [facility] [id number] 00 Tracie Stahl 06/24/2018 06/25/2018 [facility] Inpatient [id number] Barton Elham 08/24/2018 08/30/2018 [facility] Emergency [id number] Ruth Jay 09/06/2018 09/06/[address] [facility] Emergency [id number] Temitope Green 10/11/2018 10/11/2018 [facility] Inpatient [id number] Lexx Sauer 10/11/2018 10/12/[address] [facility] Inpatient [id number] Terrence Verdugo 12/03/2018 12/09/2018 [facility] Emergency [id number] Dante Martin 12/13/2018 12/13/2018 [facility] Inpatient [id number] Jo White 01/27/2019 01/31/[address] [facility] Inpatient [id number] Shabnam Campos 03/01/2019 03/08/2019 [facility] Observation [id number] Jose L Cunningham 03/23/2019 03/25/2019 [facility] Emergency [id number] Eliot [place] 04/03/2019 04/04/2019 [facility] Emergency [id number] Eliot Bebeto 05/16/2019 05/16/2019 [facility] Emergency [id number] Karthik Hogan 05/25/2019 05/25/2019 [facility] Outpatient [id number] Edwardo Rodriguez 11/02/2019 11/03/2019 [facility] Observation [id number] Salim Jorge L 11/02/2019 11/04/[address] [facility] Inpatient [id number] Isa Michelleismael 03/23/2020 03/26/2020 [facility] Procedures Procedure Code Date Perfomer Comments Source Incision AND drainage [id number] 05/17/2018 [id number] [facility] and Plan Assessment and Plan Date [...] follow up on discharge call Dr Huston [phone] fax no. [phone] ANTIBIOTICS: Vancomycin day 3 First Dose Antibiotic: [...] Blood Collected: 03/23/2020 07:20 Verified by: MICROBIOLOGY, [facility] - 03/25/2020 11:31 Collected: 03/23/2020 07:20 Verified by: MICROBIOLOGY, [facility] - 03/25/2020 11:31 No Growth At 2 Days Collected: 03/23/2020 07:20 Verified by: MICROBIOLOGY, [facility] - 03/25/2020 11:31 No Growth At 2 Days Collected: 03/23/2020 07:20 Verified by: MICROBIOLOGY, [facility] - 03/25/2020 11:31 IMAGING: Imaging Studies (last 36 hours) (none) Scheduled Meds (1): 03/23/20 vancomycin + Sodium Chloride 0. 9% IV 250 mL 1,000 mg IVPB [id number] 250 ml/hr This note was dictated with the use of [employer] speech recognition software. Please use best judgement when interpreting and excuse any regulatory submissions specialist errors. Extracted from:Title: Clinical Document Author: Jed Huston MD Date: 03/23/20 [facility] INFECTIOUS DISEASE CONSULTATION NOTE Nikole [...] Water IV (Dextrose 50% Syringe (D50W)), acetaminophen-hydrocodone ([place] 10/325 oral tablet), acetaminophen, glucagon, hydromorphone (Dilaudid), [...] note was dictated with the use of [employer] speech recognition software. Please use best judgement when interpreting and excuse any regulatory submissions specialist errors. 03/26/2020 [facility] Extracted from:Title: Clinical Document Author: Oralia Walden MD Date: 11/04/19 ERROR Extracted from:Title: General surgery Author: Zena Hlae MD Date: 11/02/19 1. Abdominal wallcellulitiswith possible [...] home meds SCDs observation full code 11/04/2019 [facility] Extracted from:Title: ID Consultation No te Author: Mahesh Wilkins MD Date: 03/24/19 [facility] INFECTIOUS DISEASE CONSULTATION NOTE Nikole Bob M.D. M. Farhan Khan, M.D. Syed W. Hasan, M.D. REQUESTING PHYSICIAN: Dr. Cunningham REASON FOR CONSULTATION: Fever, right axillar nodule/pain HISTORY OF PRESENT ILLNESS: 33 yo female with history of obesity, de pression, polycystic ovary syndrome, recurrent skin infection, hidradenitis suppurativa presents to [facility] ED for fever and R axillary pain [...] 9% IV 500 mL 1.75 gm IVPB [id number] 250 ml/hr ALLERGIES: Allergies: Keflex, clindamycin, ciprofloxacin, [...] planned, still have recommended patient to see employee services manager as outpatient to rule out any other underlying possible immune issue leading to prior recurrent skin infections - Based on [facility]'s [facility] is having first current skin inflammatory [...] will defer this ultimately to patient's regular 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 ID will [...] written and given to patient. Diagnosis Abscess (ZVD15-XA L02.91, Working, Medical). Forunculosis (TNE09-UK L02.92, Working, Medical). Hidradenitis axillaris (BVM32-HK L73.2, Working, Medical). Obesity (JXZ46-HG E66.9, Working, Medical). Obesity (AFO31-PI E66.9, Working, Medical). PCOS (polycystic ovarian syndrome) (TGI25-QL E28.2, Working, Medical). PCOS (polycystic ovarian syndrome) (PET86-XM E28.2, Working, Medical). Sepsis (GGZ02-DI A41.9, Working, Medical). Sepsis (NPB16-NZ A41.9, Working, Medical). Course Improving. Education and [...] follow up on discharge call Dr Huston [phone] SUBJECTIVE: Seen and examined. Events noted. VITAL [...] Meds (5): 03/01/19 enoxaparin 40 mg SUB-Q [id number] 03/02/19 spironolactone 50 mg PO Daily 03/01/19 vancomycin + Sodium Chloride 0. 9% IV 250 mL 1.5 gm IVPB [id number] 166.67 ml/hr 03/03/19 zinc sulfate 220 mg PO Daily 03/02/19 zolpidem (Ambien) 10 mg PO Bedt vero Extracted from:Title: ID Consultation Note Author: Mahesh Wilkins MD Date: 03/01/19 [facility] INFECTIOUS DISEASE CONSULTATION NOTE Nikole Bob M.D. M. Farhan Khan, M.D. Syed W. Hasan, M.D. REQUESTING PHYSICIAN: Dr. Candelario REASON FOR CONSULTATION: Recurrent skin infection HISTORY OF PRESENT ILLNESS: 33 yo F with PMH including obesity, depr ession, PCOS, hidrenaitis suppurativa,, recurrent skin infection, antibiotic allergies, who presented to [facility] 02/28/19 due to worsening right axillary/breast tenderness and new skin nodules. Patient had been recently hospitalized January 2019 for vulvar/groin infection that improved after discharge and completing oral antibiotic course. She also since then had newer furuncle on bilateral calf (one each) that had resolevd with doxycycline+Sivextro treatment by military equipment specialist that finished this past Thursday. She notes also undergoing frequent muporicin nasal decolonization, chlorhexidine and bleach baths as recommended by her military equipment specialist. In last few days though she noted [...] Meds (2): 03/01/19 enoxaparin 40 mg SUB-Q [id number] 03/01/19 vancomycin + Sodium Chloride 0. 9% IV 250 mL 1.5 gm IVPB [id number] 166.67 ml/hr ALLERGIES: Allergies: Keflex, clindamycin, ciprofloxacin, [...] from any purulent drainage - F/u outpatient military equipment specialist after dis charge; also may need to see employee services manager as outpatient for immunodeficiency workup given recurring skin infections despite other ongoing management for other chronic conditions Thank you for this consult. ID will follow. Extracted from:Title: History and Physical Author: Chin uLbin MD Date: 02/28/19 1.Hidradenitis axillaris(L73.2) History of [...] INFECTIOUS DISEASES PROGRESS NOTE Jed Huston M.D. [facility] [phone] Reason For Follow up: Hidradenitis SUBJECTIVE: Seen [...] 01/27/19 enoxaparin (Lovenox) 40 mg SUB- Q [id number] 01/27/19 non-formulary (*Please bring pt 's own [...] 01/27/19 enoxaparin (Lovenox) 40 mg SUB- Q [id number] 01/27/19 non-formulary (*Please bring pt 's own [...] taken for H&P is 40 min. 01/31/2019 [facility] Extracted from:Title: ID Progress Note Author: Mahesh Wilkins MD Date: 12/09/18 [facility] INFECTIOUS DISEASES PROGRESS NOTE Nikole Bob [...] Meds (4): 12/03/18 enoxaparin 40 mg SUB-Q [id number] 12/05/18 spironolactone 50 mg PO Daily 12/08/18 [...] also plan patient to follow-up with her military equipment specialist as outpatient routinely Above discussed with hospitalist Dr. Mendoza CURRENT ANTIMICROBIALS: IV vancomycin day # 6 Extracted from:Title: Clinical Document Author: Tracie Stahl MD Date: 12/06/18 Post Operative Procedure Note A complete detailed Operative Report must follow within 24 hours of the procedure. Pre-Operative Diagnosis: Left thigh abscess x 2 Post-Operative Diagnosis: Same Surgeon/Endoscopist/Physician(s): Raoul Stahl [employer] Technician(s): None Procedure Performed: Incision and drainage of left thigh abscess x 2 Estimated Blood Loss: Minimal Specimens Removed: Cultures taken Findings of the Procedure: Inner thigh abscess cavity and small upper thigh abscess Dictation ID for complete detailed Operative Report:: [id number] Extracted from:Title: Clinical Document Author: Jed Huston MD Date: 12/04/18 [facility] INFECTIOUS DISEASE CONSULTATION NOTE JED [...] te Author: Mahesh Wilkins MD Date: 10/11/18 [facility] INFECTIOUS DISEASE CONSULTATION NOTE Mahesh Wilkins M.D. Zoey Hartley M.D. Nikole Claros M.D. REQUESTING PHYSICIAN: Dr. Sauer REASON FOR CONSULTATION: Recurrent skin infection HISTORY OF PRESENT ILLNESS: 32 yo F with PMH including PCOS, hiadren itis suppurativa, recurrent skin lesion/boil on abdomen/thigh with MSSA superinfection , multiple antibiotic allergies who presented to [facility] 10/11/18 due to worsening/recurrent painful skin lesion. I had seen patient before for similar issues in past several months- patient has been dealing with this for past year. After Aug 2018 hospitalization she had finished IV vancomycin course as well as followed with military equipment specialist who had diagnosed her with hiadrenitis suppurative [...] 10/11/18 enoxaparin (Lovenox) 40 mg SUB- Q [id number] 10/11/18 linezolid 600 mg PO [id number] ALLERGIES: Allergies: Keflex, clindamycin, ciprofloxacin, Bactrim, penicillin [...] is closely followed up by her primary military equipment specialist who comes in for evaluation of multiple [...] 1 dose of vancomycin and transferred to [facility]. At this time patient denies having [...] DVT prophylaxis: Lovenox Disposition: Likely tomorrow. 10/12/2018 [facility] Extracted from:Title: Clinical Document Author: [...] 9% IV 250 mL 1,500 mg IVPB [id number] 166.67 ml/hr Unscheduled Meds (2): 08/27/18 lidocaine [...] sterile water 20 mL 2 gm IV [id number] 240 ml/hr 05/17/18 enoxaparin 40 mg SUB-Q [id number] 05/20/18 vancomycin + Sodium Chloride 0. 9% IV 250 mL 1,500 mg IVPB [id number] 166.67 ml/hr Unscheduled Meds (2): 05/17/18 influenza [...] Note Author: Mahesh Wilkins MD Date: 05/18/18 [facility] INFECTIOUS DISEASE CONSULTATION NOTE Nikole Bob [...] she developed hives) and seeing outside ID orthotic/prosthetic clinician in [place]. She still notes significant pain and scant [...] Meds (2): 05/17/18 enoxaparin 40 mg SUB-Q [id number] 05/17/18 vancomycin + Sodium Chloride 0. 9% IV 250 mL 1,000 mg IVPB [id number] 250 ml/hr ALLERGIES: Allergies (5) Active Reaction [...] on: 11/02/19 1quit smoking in may 25 [facility] Social History TypeResponse Alcohol Never [...] No; Reg Smoking Cessation Counseling No 02/14/2015 [facility] Family History No Data Provided for This Section Advance Directives No Data Provided for This Section Functional Status No Data Provided for This Section
--- OUTSIDE RECORDS SUMMARY | 2020-04-24 11:22 | XMS REPORT | Continuity of Care Document ---
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 16:14:00 CDT, 0 Shahida Soto Ondansetron 2019-03-23 21:15:00 No Notes: (Same as: Michael) MEDICATION WASTE Product Size: 4 mg Product Wasted: ___ mg Shahida Soto Dextrose 50% Syringe 2019-03-23 21:15:00 No 12.5 gm, 25 mL, Route: IVP, Drug Form: INJ, Dosing Weight 122.727, kg, PRN, PRN Blood Glucose Results, Start date: 03/23/19 16:15:00 CDT, Duration: 30 day, Stop date: 04/22/19 16:14:00 CDT, 0 Shahida Soto Vancomycin 2019-03-23 19:21:00 No 2001 mg: infuse over 2.5 hours For adult patients only: Round to nearest 250 mg per Medical Staff approval MEDICATION WASTE Product Size: 1000 mg Product Wasted: ___ mg Shahida Soto Saline Flush 0.9% 2019-03-23 17:01:00 No Notes: preservative free. Shahida Soto Acetaminophen 300 MG / Codeine Phosphate 30 MG Oral Tablet [Tylenol with Codeine #3] 2019-03-07 22:14:00 Yes 1 tab, PO, Q6H, PRN Pain, X 7 day, # 28 tab, 0 Refill(s) Shahida Soto Doxycycline Monohydrate 100 MG Oral Tablet 2019-03-07 22:14:00 Yes 100 mg = 1 tab, PO, Q12H, X 10 day, # 20 tab, 0 Refill(s), Pharmacy: [facility] [id number] Shahida Soto Acetaminophen 325 MG / Hydrocodone Bitartrate 10 MG Or al Tablet [Kent 10/325] 2019-03-03 18:50:00 No Note s: Do not exceed 4gm/day of acetaminophen. (Same as: Kent 325/10) Shahida Soto Hydromorphone 2019-03-03 18:49:00 No Notes: Same as: Dilaudid [facility] Zinc Sulfate 2019-03-03 14:00:00 No Notes: (Zinc sulfate capsule) - 220 mg Zinc sulfate = 50 mg elemental zinc Same as Zinc Sulfate [facility] Ambien 2019-03-03 02:00:00 No Notes: (Same As: Ambien) [facility] Spironolactone 2019-03-02 19:46:00 No Notes: (Same As: Aldactone) [facility] Lidocaine 2019-03-02 19:17:00 No Notes: Preservative free. (Same as: Xylocaine MPF) [facility] Vancomycin 2019-03-01 18:00:00 No 2001 mg: infuse over 2.5 hours For adult patients only: Round to nearest 250 mg per Medical Staff approval MEDICATION WASTE Product Size: 1000 mg Product Wasted: ___ mg [facility] height weight allergies 2019-03-01 05:00:00 No height weight allergies, RN pls complete HWA for order verificati, Drug form: MISC, Route: MISC, ONCALL, 03/01/19 0:00:00 CDT, Duration: 30 day, Stop date: 03/30/19 23:59:00 CDT, 0 [facility] Enoxaparin 2019-03-01 05:00:00 No Notes: (S zenaida as: Lovenox) [facility] Dextrose 50% Syringe 2019-03-01 04:12:00 No 12.5 gm, 25 mL, Route: IVP, Drug Form: INJ, Dosing Weight 136.364, kg, PRN, PRN Blood Glucose Results, Start date: 02/28/19 23:12:00 CDT, Duration: 30 day, Stop date: 03/30/19 23:11:00 CDT, 0 [facility] Glucagon 2019-03-01 04:12:00 No 1 mg, Route: IM, Drug form: PDR/INJ, PRN, Dosing Weight 136.364, kg, PRN Blood Glucose Results, Start date: 02/28/19 23:12:00 CDT, Duration: 30 day, Stop date: 03/30/19 23:11:00 CDT, 0 [facility] Bisacodyl 2019-03-01 04:12:00 No Notes: (Same As: Dulcolax, Bisco-Lax) Shahida Soto Ondansetron 2019-03-01 04:12:00 No Notes: (Same as: Zofran) MEDICATION WASTE Product Size: 4 mg Product Wasted: ___ mg Shahida Soto Acetaminophen 2019-03-01 04:12:00 No Notes: Do not exceed 4 gm/day. (Same as: Tylenol) Shahida Soto Melatonin 2019-03-01 04:12:00 No Notes: (Sa me as: Melatonin) Shahida Soto Magnesium Oxide 2019-03-01 04:09:00 No Notes: (Same as: Mag-Ox 400) Magnesium oxide [id number] elemental magnesium Dose=____mg magnesium oxide (___mg elemental magnesium) Shahida bravo Magnesium Sulfate 2019-03-01 04:09:00 No Notes: WASTE: F/P - Sink; E - Municipal Trash Bin Shahida Soto sodium phosphate 2019-03-01 04:09:00 No Notes: Infuse over 4 hour. Do not infuse phosphorous concurrently in the same line as TPN or IVF that contains calcium. For double lumen central lines, phosphorous may be infused in a separate lumen from TPN. Shahida cintron Calcium Gluconate 2019-03-01 04:09:00 No Notes: WASTE: F/P - Sink; E - Municipal Trash [facility] Potassium Chloride 2019-03-01 04:09:00 No Notes: (Same as: K-Dur 20) "Do Not Crush" Give with food and full glass of water For patients unable to swallow tablet, dissolve in one half glass of water. Allow about 2 minutes for the tablets to disintegrate. Stir before giving to prepare slurry and administer. Please exclude Patient s with feeding tube less than 14 Urdu (Dobhoff, J-tube etc) and pediatric and patients. [facility] potassium phosphate 2019-03-01 04:09:00 No Notes: (Same as: K Phosphate.) Do not infuse phosphorous concurrently in the same line as TPN or IVF that contains calcium. For double lumen central lines, phosphorous may be infused in a separate lumen from TPN. 1 mMol phoshate has 1.47 mEq potassium Infuse over 4 hours [facility] potassium phosphate-sodium phosphate 250 mg-280 mg-160 mg oral powder for reconstitution 2019-03-01 04:09:00 No Notes: (Same as: Phos-NaK) Each 1.5 gm pkt has 250mg phosphorous. Mix w/2.5oz water and stir. Shahida Multaniann Hydromorphone 2019-03-01 04:08:00 No Notes: Same as: Dilaudid Shahida Soto Tramadol 2019-03-01 04:08:00 No Notes: Not to [...] mg Product Wasted: ___ mg Shahida Soto Vancomycin 2019-03-01 02:50:00 No 2001 mg: infuse over 2.5 hours For adult patients only: Round to nearest 250 mg per Medical Staff approval MEDICATION WASTE Product Size: 1000 mg Product Wasted: ___ mg Shahida Soto NS (Bolus) IV 2019-03-01 02:50:00 No 1,000 mL, 1,000 ml/hr, Infuse Over: 1 hr, Route: IV, 1,000, Drug form: INJ, ONCE, Priority: STAT, Dosing Weight 136.364 kg, Start date: 02/28/19 21:50:00 CDT, Stop date: 02/28/19 21:50:00 CDT, 0 Shahida Soto Zofran 2019-03-01 02:50:00 No Notes: (Same as: Zofran) MEDICATION WASTE Product Size: 4 mg Product Wasted: ___ mg [facility] Morphine 2019-03-01 02:50:00 No Not es: (Same as:MORPhine Sulfate) [facility] Cefazolin 2019-01-31 20:00:00 No Notes: (Same As: Sang Romo) MEDICATION WASTE Product Size: 1000 mg Product Wasted: ___ mg [facility] ibuprofen 800 mg oral tablet 2019-01-31 19:00:00 Yes 800 mg = 1 tab, PO, Q8H, PRN Pain, Take with food, # 30 tab, 0 Refill(s), Pharmacy: [facility] [id number] [facility] zinc sulfate 220 mg oral capsule 2019-01-31 18:31:00 Yes 220 mg = 1 cap, PO, Daily, # 30 cap, 0 Refill(s), Pharmacy: [facility] [id number] [facility] cefpodoxime 200 mg oral tablet 2019-01-31 18:31:00 Yes 400 mg = 2 tab, PO, Q12H, X 10 day, # 40 tab, 0 Refill(s), Pharmacy: [facility] [address] [place] [address] Acetaminophen 300 MG / Codeine Phosphate 30 MG Oral Tablet [Tylenol with Codeine #3] 2019-01-31 15:02:00 No Notes: Do not exceed 4gm/day of acetaminophen. (Same as: Tylenol with Codeine # 3) [facility] ATTN: vanc trough ordered before 8PM dose 2019-01-31 00:30:00 No ATTN: vanc trough ordered before 8PM dose, dont give before lab is drawn, Drug form: MISC, Route: MISC, ONCE, 01/30/19 19:30:00 CDT, Stop date: 01/30/19 19:30:00 CDT [facility] Zinc Sulfate 2019-01-30 14:00:00 No Notes: (Zinc sulfate capsule) - 220 mg Zinc sulfate = 50 mg elemental zinc Same as Zinc Sulfate [facility] vancomycin + Sodium Chloride 0.9% IV 250 mL 2019-01-29 20:00:00 No 2001 mg: infuse over 2.5 hours For adult patients only: Round to nearest 250 mg per Medical Staff approval MEDICATION WASTE Product Size: 1000 mg Product Wasted: ___ mg [facility] vanco trough 2019-01-29 18:30:00 No vanco trough, reminder, Drug form: MISC, Route: MISC, ONCE, 01/29/19 13:30:00 CDT, Stop date: 01/29/19 13:30:00 CDT [facility] cefepime 2019-01-29 04:00:00 No Notes: (Same As: Maxipime) MEDICATION WASTE Product Size: 1000 mg Product Wasted: ___ mg [facility] RN - do not give vanc til trough is drawn 01/28 @ 12:30 2019-01-28 17:00:00 No RN - do not giv e vanc til trough is drawn 01/28 @ 12:30, attn, Drug form: MISC, Route: MISC, ONCE, 01/28/19 12:00:00 CDT, Stop date: 01/28/19 12:00:00 CDT [facility] Spironolactone 2019-01-28 14:00:00 No Notes: (Same As: Aldactone) [facility] zolpidem 2019-01-28 02:00:00 No Notes: (Byron e As: Ambien) [facility] Ambien 2019-01-28 02:00:00 No 10 mg, Route: PO, Drug form: TAB, Bedtime, Dosing Weight 127.273, kg, Start date: 01/27/19 21:00:00 CDT, Duration: 30 day, Stop date: 02/25/19 21:00:00 CDT [facility] Adderall 2019-01-27 22:00:00 No 30 mg, Route: PO, BID, Dosing Weight 127.273, kg, Start date: 01/27/19 17:00:00 CDT, Duration: 30 day, Stop date: 02/26/19 9:00:00 CDT [facility] *Please bring pt's own adderall to pharmacy for label* 2019-01-27 21:00:00 No *Please bring p t's own adderall to pharmacy for label*, ATTN:RN, Drug form: MISC, Route: MISC, QSHIFT, 01/27/19 16:00:00 CDT, Duration: 30 day, Stop date: 02/26/19 8:00:00 CDT [facility] Acetaminophen 325 MG / Hydrocodone Bitartrate 5 MG Oral Tabl et [Kent 5/325] 2019-01-27 13:58:00 No Notes: (Same as: Kent 325/5) Do not exceed 4gm/day of acetaminophen. Shahida new Vancomycin 2019-01-27 10:00:00 No 1 ea, Route: [...] 30 day, Stop date: 02/26/19 4:34:00 CDT [facility] Morphine 2019-01-27 08:29:00 No 4 mg, Route: [...] day, # 6 tab, 0 Refill(s), Pharmacy: [facility] [id number] Shahida Soto Acetaminophen 300 MG / Codeine [...] 1000 mg Product Wasted: ___ mg Shahida [place] Dilaudid 2018-12-07 03:08:00 No Notes: (Byron e as: Dilaudid) Shahida Charles Naloxone 2018-12-06 17:49:00 No Notes: Same as Narcan [facility] Ondansetron 2018-12-06 17:49:00 No Notes: (Same as: Zofran) MEDICATION WASTE Product Size: 4 mg Product Wasted: ___ mg Shahida Soto Flumazenil 2018-12-06 17:49:00 No Notes: (S zenaida as: Romazicon) [facility] Hydromorphone 2018-12-06 17:49:00 No Notes: Same as: Dilaudid [facility] Fentanyl 2018-12-06 17:49:00 No Notes: (Same as: Sublimaze) Preservative free. Shahida Soto Hydralazine 2018-12-06 17:49:00 No Notes: (Same as: Apresoline) Push over 5 minutes Shahida Soto dexamethasone (ANES) 2018-12-06 17:33:00 No Route: IV, Drug form: INJ, ONCE, Stop date: 12/06/18 12:33:00 CDT [facility] ondansetron (ANES) 2018-12-06 17:33:00 No Route: IV, Drug form: INJ, ONCE, Stop date: 12/06/18 12:33:00 CDT dimarimicki Soto ketOROLAC (ANES) 2018-12-06 17:33:00 No IV, ONCE [facility] fentaNYL (ANES) 2018-12-06 17:33:00 No Route: IV, Drug form: INJ, ONCE, Stop date: 12/06/18 12:33:00 [facility] ([facility]ES[facility] 2018-12-06 17:33:00 No Route: IV, Drug form: SOLN, ONCE, Stop date: 12/06/18 12:33:00 [facility]T [facility] [place] propofol (ANES) 2018-12-06 17:33:00 No Route: IV, Drug form: INJ, ONCE, Stop date: 12/06/18 12:33:00 [facility]T [facility] vancomycin (ANES) 1000 mg 2018-12-06 16:45:00 No Route: IV, Drug form: INJ, Start date: 12/06/18 11:45:00 CDT, Stop date: 12/06/18 12:45:00 CDT [facility] Lactated Ringers Injection IV (ANES) 1000 mL 2018-12-06 16:45:00 No Route: IV, Total Volume: 1,000, Start date: 12/06/18 11:45:00 CDT, Stop date: 12/06/18 12:45:00 CDT [facility] Calcium Chloride 0.0014 MEQ/ML / Potassi um Chloride 0.004 MEQ/ML / Sodium Chloride 0.103 MEQ/ML / Sodium Lactate 0.028 MEQ/ML Injectable Solution 2018-12-06 16:00:00 No 1,000 mL, Rate: 25 ml/hr, Infuse over: 40 hr, Route: IV, Dosing Weight 58.778 kg, Total Volume: 1,000, Start date: 12/06/18 11:00:00 CDT, Duration: 30 day, Stop date: 01/05/19 10:59:00 CDT, 1.66, m2 [facility] vancomycin + Sodium Chloride 0.9% IV 250 mL 2018-12-05 15:00:00 No 2001 mg: infuse over 2.5 hours For adult patients only: Round to nearest 250 mg per Medical Staff approval MEDICATION WASTE Product Size: 1000 mg Product Wasted: ___ mg [facility] Spironolactone 2018-12-05 14:00:00 No Notes: (Same As: Aldactone) Shahida Soto Ambien 2018-12-05 02:00:00 No Notes: (Same As: Ambien) [facility] vancomycin + Sodium Chloride 0.9% IV 250 mL 2018-12-04 07:00:00 No 2001 mg: infuse over 2.5 hours For adult patients only: Round to nearest 250 mg per Medical Staff approval MEDICATION WASTE Product Size: 1000 mg Product Wasted: ___ mg [facility] [place] Adderall 2018-12-04 03:39:00 Yes 30 mg, PO, BID, 0 Refill(s) Shahida Soto Enoxaparin 2018-12-04 03:00:00 No Notes: (S zenaida as: Lovenox) [facility] Vancomycin 2018-12-04 03:00:00 No 2001 mg: infuse over 2.5 hours For adult patients only: Round to nearest 250 mg per Medical Staff approval [facility] Vancomycin 2018-12-04 02:09:00 No 2001 mg: infuse [...] 30 day, Stop date: 01/02/19 21:06:00 CDT [facility] Glucagon 2018-12-04 02:07:00 No 1 mg, Route: IM, Drug form: PDR/INJ, PRN, Dosing Weight 126.364, kg, PRN Blood Glucose Results, Start date: 12/03/18 21:07:00 CDT, Duration: 30 day, Stop date: 01/02/19 21:06:00 CDT [facility] Bisacodyl 2018-12-04 02:07:00 No Notes: (Same As: Dulcolax, Bisco-Lax) [facility] Ondansetron 2018-12-04 02:07:00 No Notes: (Same as: Zofran) MEDICATION WASTE Product Size: 4 mg Product Wasted: ___ mg [facility] Melatonin 2018-12-04 02:07:00 No Notes: (Sa me as: Melatonin) [facility] Acetaminophen 2018-12-04 02:07:00 No Notes: Do not exceed 4 gm/day. (Same as: Tylenol) [facility] Hydromorphone 2018-12-04 02:06:00 No Notes: Same as: Dilaudid [facility] Tramadol 2018-12-04 02:06:00 No Notes: Not to exceed 400mg/day. (Same As: Ultram) Shahida Soto LR IV 1,000 mL 2018-12-04 02:05:00 No 1,000 mL, Rate: 125 ml/hr, Infuse over: 8 hr, Route: IV, Dosing Weight 126.364 kg, Total Volume: 1,000, Start date: 12/03/18 21:05:00 CDT, Duration: 30 day, Stop date: 01/02/19 21:04:00 CDT, 2.47, m2 [facility] Calcium Gluconate 2018-12-04 02:05:00 No Notes: WASTE: F/P - Sink; E - Municipal Trash Bin [facility] Potassium Chloride 2018-12-04 02:05:00 No Notes: (Same as: K-Dur 20) "Do Not Crush" Give with food and full glass of water For patients unable to swallow tablet, dissolve in one half glass of water. Allow about 2 minutes for the tablets to disintegrate. Stir before giving to prepare slurry and administer. Please exclude Patient s with feeding tube less than 14 Urdu (Dobhoff, J-tube etc) and pediatric and patients. [facility] Magnesium Sulfate 2018-12-04 02:05:00 No Notes: WASTE: F/P - Sink; E - [facility] 2018-12-04 02:05:00 No Notes: (Same as: K Phosphate.) Do not infuse phosphorous concurrently in the same line as TPN or IVF that contains calcium. For double lumen central lines, phosphorous may be infused in a separate lumen from TPN. 1 mMol phoshate has 1.47 mEq potassium Infuse over 4 hours [facility] sodium phosphate 2018-12-04 02:05:00 No Notes: Infuse over 4 hour. Do not infuse phosphorous concurrently in the same line as TPN or IVF that contains calcium. For double lumen central lines, phosphorous may be infused in a separate lumen from TPN. [facility]dulaziz Magnesium Oxide 2018-12-04 02:05:00 No Notes: (Same as: Mag-Ox 400) Magnesium oxide [id number] elemental magnesium Dose=____mg magnesium oxide (___mg elemental magnesium) [facility] potassium phosphate-sodium phosphate 250 mg-280 mg-160 mg oral powder for reconstitution 2018-12-04 02:05:00 No Notes: (Same as: Phos-NaK) Each 1.5 gm pkt has 250mg phosphorous. Mix w/2.5oz water and stir. [facility] Morphine 2018-12-04 01:56:00 No 4 mg, Route: IVP, ONCE, Dosing Weight 126.364, kg, Priority: STAT, Start date: 12/03/18 20:56:00 CDT, Stop date: 12/03/18 20:56:00 CDT [facility] Her bravo Ondansetron 2018-12-04 01:56:00 No 4 mg, Route: IVP, Drug form: INJ, ONCE, Dosing Weight 126.364, kg, Priority: STAT, Start date: 12/03/18 20:56:00 CDT, Stop date: 12/03/18 20:56:00 [facility] S[facility] 0.9% (Bolus) IV 2018-12-03 23:40:00 No 1,000 mL, 1000 ml/hr, Infuse Over: 1 hr, Route: IV, 1,000, Drug form: INJ, ONCE, Priority: STAT, Dosing Weight 126.364 kg, Start date: 12/03/18 18:40:00 CDT, Stop date: 12/03/18 18:40:00 CDT [facility] Morphine 2018-12-03 23:40:00 No 4 mg, Route: IVP, ONCE, Dosing Weight 126.364, kg, Priority: STAT, Start date: 12/03/18 18:40:00 CDT, Stop date: 12/03/18 18:40:00 CDT [facility] Her bravo Vancomycin 2018-12-03 23:40:00 No 1,000 mg, Route: IVPB, ONCE, Dosing Weight 126.364, kg, Priority: STAT, Start date: 12/03/18 18:40:00 CDT, Stop date: 12/03/18 18:40:00 CDT, ABX Indication: Skin/Soft Tissue Infection [facility] Saline Flush 0.9% 2018-12-03 21:16:00 No Notes: (Same as: BD Posiflush) [facility] linezolid 600 mg oral tablet 2018-10-12 19:51:00 Yes 600 mg = 1 tab, PO, [id number], X 10 day, # 20 tab, 0 Refill(s), Pharmacy: [facility] [id number] [facility] Morphine 2018-10-12 04:38:00 No Not es: (Same as:MORPhine Sulfate) [facility] linezolid 2018-10-11 20:00:00 No Notes: Protect from light. (Same as: Zyvox) [facility] Vancomycin 2018-10-11 19:00:00 No 2001 mg: infuse over 2.5 hours For adult patients only: Round to nearest 250 mg per Medical Staff approval MEDICATION WASTE Product Size: 1000 mg Product Wasted: ___ mg Shahida Soto Lovenox 2018-10-11 17:00:00 No Notes: (Same as: Lovenox) [facility] Vancomycin 2018-10-11 16:46:00 No 1 ea, Route: MISC, ONCALL, Dosing Weight 133.182, kg, Priority: STAT, Start date: 10/11/18 10:46:00 MANAGER WELDING, Duration: 1 day, Stop date: 10/12/18 10:45:00 MANAGER WELDING, Pharmacy to dose, ABX Indication: Urinary Tract Infection [facility] Ambien 2018-10-11 16:46:00 No Notes: (Same As: Ambien) [facility] Acetaminophen 300 MG / Codeine Phosphate 30 MG Oral Tablet [Tylenol with Codeine #3] 2018-10-11 16:46:00 No Notes: Do not exceed 4gm/day of acetaminophen. (Same as: Tylenol with Codeine # 3) [facility] Dextrose 50% Syringe 2018-10-11 16:12:00 No 25 gm, 50 mL, Route: IVP, Drug Form: INJ, Dosing Weight 133.182, kg, PRN, PRN Blood Glucose Results, Start date: 10/11/18 10:12:00 MANAGER WELDING, Duration: 30 day, Stop date: 11/10/18 11:11:00 CDT [facility] Glucagon 2018-10-11 16:12:00 No 1 mg, Route: IM, Drug form: PDR/INJ, PRN, Dosing Weight 133.182, kg, PRN Blood Glucose Results, Start date: 10/11/18 10:12:00 MANAGER WELDING, Duration: 30 day, Stop date: 11/10/18 11:11:00 CDT [facility] Docusate 2018-10-11 15:00:00 No Notes: (Same as: Colace) (Do Not Crush) [facility] Dextrose 50% Syringe 2018-10-11 14:50:00 No 25 gm, 50 mL, Route: IVP, Drug Form: INJ, Dosing Weight 133.182, kg, PRN, PRN Blood Glucose Results, Start date: 10/11/18 8:50:00 MANAGER WELDING, Duration: 30 day, Stop date: 11/10/18 9:49:00 CDT Shahida Soot Glucagon 2018-10-11 14:50:00 No 1 mg, Route: IM, Drug form: PDR/INJ, PRN, Dosing Weight 133.182, kg, PRN Blood Glucose Results, Start date: 10/11/18 8:50:00 MANAGER WELDING, Duration: 30 day, Stop date: 11/10/18 9:49:00 CDT Shahida Soto Ondansetron 2018-10-11 14:50:00 No Notes: (Same as: Michael) MEDICATION WASTE Product Size: 4 mg Product Wasted: ___ mg Shhaida [place] COLLAGENASE 0.25 UNT/MG Topical Ointment [Santyl] 2018-10-11 11:26:00 No 1 appl, TOP, Daily, # 15 gm, 0 Refill(s) Shahida [place] Spironolactone 2018-10-11 11:26:00 Yes 50 mg, PO, Daily, # 60 tab, 0 Refill(s) Shahida Soto Zolpidem tartrate 10 MG Oral Tablet [Ambien] 2018-10-11 11:26:00 Yes 10 mg = 1 tab, PO, Bedtime, # 14 tab, 0 Refill(s) Shahida [place] Acetaminophen 325 MG / Hydrocodone Bitartrate 5 MG Oral Tabl et [Kent 5/325] 2018-10-11 09:20:00 No 1 tab, Route: PO, Drug Form: TAB, Dosing Weight 133.005, kg, ONCE, STAT, Start date: 10/11/18 3:20:00 MANAGER WELDING, Stop date: 10/11/18 3:20:00 MANAGER WELDING [facility] Ibuprofen 2018-10-11 07:55:00 No 600 mg, Route: PO, Drug form: TAB, ONCE, Dosing Weight 133.005, kg, Priority: STAT, Start date: 10/11/18 1:55:00 MANAGER WELDING, Stop date: 10/11/18 1:55:00 MANAGER WELDING [facility] Vancomycin 2018-10-11 05:27:00 No 2001 mg: [...] Priority: STAT, Start date: 09/06/18 0:58:00 MANAGER WELDING, Stop date: 09/06/18 0:58:00 MANAGER WELDING Shahida Soto Zofran 2018-09-06 06:58:00 No 4 mg, Route: IVP, Drug form: INJ, ONCE, Dosing Weight 120.455, kg, Priority: STAT, Start date: 09/06/18 0:58:00 MANAGER WELDING, Stop date: 09/06/18 0:58:00 MANAGER WELDING Mendoza piedra [place] Sodium Chloride 0.9% (Bolus) IV 2018-09-06 06:57:00 No 1,000 mL, Infuse Over: 1 hr, Route: IV, ONCE, Priority: STAT, Dosing Weight 120.455 kg, Start date: 09/06/18 0:57:00 MANAGER WELDING, Stop date: 09/06/18 0:57:00 MANAGER WELDING [facility] Acetaminophen 300 MG / Codeine Phosphate 30 MG Oral Tablet [Tylenol with Codeine #3] 2018-08-30 19:59:00 No 1 tab, PO, Q12H, PRN Pain, X 5 day, # 10 tab, 0 Refill(s) [facility] heparin sodium, porcine 2500 UNT/ML Injectable Solution 2018-08-30 03:00:00 No Notes: porcine heparin [facility] [place] Vancomycin 2018-08-28 02:00:00 No 2001 mg: infuse over 2.5 hours For adult patients only: Round to nearest 250 mg per Medical Staff approval MEDICATION WASTE Product Size: 1000 mg Product Wasted: ___ mg [facility] Saline Flush 0.9% 2018-08-27 22:00:00 No Notes: (Same as: BD Posiflush) [facility] Lidocaine Hydrochloride 10 MG/ML Injectable Solution 08-27 22:00:00 No Notes: (Same as: Xylocaine) [facility] Saline Flush 0.9% 2018-08-27 21:38:00 No Notes: (Same as: BD Posiflush) [facility] morphine Sulfate 2018-08-26 21:06:00 No Notes: (Same as:MORPhine Sulfate) [facility] vancomycin + Sodium Chloride 0.9% IV 250 mL 2018-08-25 22:00:00 No 2001 mg: infuse over 2.5 hours For adult patients only: Round to nearest 250 mg per Medical Staff approval MEDICATION WASTE Product Size: 1000 mg Product Wasted: ___ mg [facility] vancomycin + Sodium Chloride 0.9% IV 250 mL 2018-08-25 04:00:00 No 2001 mg: infuse over 2.5 hours For adult patients only: Round to nearest 250 mg per Medical Staff approval MEDICATION WASTE Product Size: 1000 mg Product Wasted: ___ mg [facility] Tramadol 2018-08-25 02:00:00 No Notes: Not to exceed 400mg/day. (Same As: Ultram) [facility] sennosides, CUSTODIAL 2018-08-25 01:48:00 No Notes: (Same as: Senokot) [facility] Tessalon Perles 2018-08-25 01:48:00 No Notes: (Same As: Judith Sandoval) "Do Not Crush" [facility] Melatonin 2018-08-25 01:48:00 No Notes: (Sa me as: Melatonin) [facility] Morphine 2018-08-25 01:47:00 No 2 mg, 1 mL, Route: IVP, Drug form: SOLN, Q4H, Dosing Weight 127.727, kg, PRN Pain Score 7-10, Start date: 08/24/18 19:47:00 MANAGER WELDING, Duration: 30 day, Stop date: 09/23/18 19:46:00 [facility] Acetaminophen 325 MG / Hydrocodone Bitartrate 10 MG Or al Tablet [Kent 10/325] 2018-08-25 01:47:00 No Note s: Do not exceed 4gm/day of acetaminophen. (Same as: Kent 325/10) [facility] Vancomycin 2018-08-24 21:00:00 No 2001 mg: infuse over 2.5 hours For adult patients only: Round to nearest 250 mg per Medical Staff approval MEDICATION WASTE Product Size: 1000 mg Product Wasted: ___ mg [facility] Dextrose 50% Syringe 2018-08-24 20:32:00 No 12.5 gm, 25 mL, Route: IVP, Drug Form: INJ, Dosing Weight 136.364, kg, PRN, PRN Blood Glucose Results, Start date: 08/24/18 14:32:00 MANAGER WELDING, Duration: 30 day, Stop date: 09/23/18 14:31:00 MANAGER WELDING [facility] Glucagon 2018-08-24 20:32:00 No 1 mg, Route: IM, Drug form: PDR/INJ, PRN, Dosing Weight 136.364, kg, PRN Blood Glucose Results, Start date: 08/24/18 14:32:00 MANAGER WELDING, Duration: 30 day, Stop date: 09/23/18 14:31:00 MANAGER WELDING [facility] Ondansetron 2018-08-24 20:32:00 No Notes: (Same as: Zofran) MEDICATION WASTE Product Size: 4 mg Product Wasted: ___ mg [facility] Acetaminophen 2018-08-24 20:32:00 No Notes: Do not exceed 4 gm/day. (Same as: Tylenol) Shahida Soto Morphine 2018-08-24 20:22:00 No 4 mg, Route: IVP, ONCE, Dosing Weight 120.455, kg, Start date: 08/24/18 14:22:00 MANAGER WELDING, Stop date: 08/24/18 14:22:00 MANAGER WELDING Shahida Soto Zofran 2018-08-24 13:41:00 No Notes: (Same as: Zofran) MEDICATION WASTE Product Size: 4 mg Product Wasted: ___ mg [facility] Morphine 2018-08-24 13:41:00 No Not es: (Same as:MORPhine Sulfate) [facility] Vancomycin 2018-08-24 13:35:00 No 2001 mg: infuse over 2.5 hours For adult patients only: Round to nearest 250 mg per Medical Staff approval MEDICATION WASTE Product Size: 1000 mg Product Wasted: ___ mg [facility] doxycycline hyclate 100 MG Oral Tablet 2018-05-22 17:14:00 No 100 mg = 1 tab, PO, Q12H, X 10 day, # 20 tab, 0 Refill(s), Pharmacy: [facility] [id number] [facility] Docusate Sodium 100 MG Oral Capsule [Colace] 2018-05-22 17:08:00 No 100 mg = 1 cap, PO, BID, PRN as needed for constipation, # 14 cap, 0 Refill(s), Pharmacy: [facility] [id number] [facility] Acetaminophen 300 MG / Codeine Phosphate 30 MG Oral Tablet [Tylenol with Codeine #3] 2018-05-22 17:08:00 No 1 tab, PO, Q6H, PRN Pain Score 6-10, X 5 day, # 20 tab, 0 Refill(s) [facility] Nerissa cintron Docusate Sodium 100 MG Oral Capsule [Colace] 2018-05-22 14:00:00 No Notes: (Same as: Colace) (Do Not Crush) [facility] [place] Acetaminophen 325 MG / Hydrocodone Bitartrate 5 MG Oral Tabl et [Kent 5/325] 2018-05-21 15:02:00 No Notes: (Same as: Kent 325/5) Do not exceed 4gm/day of acetaminophen. [facility] Hilda nn vancomycin + Sodium Chloride [...] Size: 1000 mg Product Wasted: ___ mg [facility] vancomycin + Sodium Chloride 0.9% IV 100 mL 2018-05-19 19:30:00 No Notes: TIME CRITICAL MEDICATION (Same As: Vancocin) For adult patients only: Round to nearest 250 mg per Medical Staff approval [facility] Ceftriaxone 2018-05-19 17:00:00 No Notes: (Same As: Rocephin). MEDICATION WASTE Product Size: 2000 mg Product Wasted: ___ mg [facility] Phenergan 2018-05-19 15:36:00 No Notes: (Sa me as: Phenergan) [facility] Morphine 2018-05-19 04:11:00 No 2 mg, 1 mL, Route: IVP, Drug form: SOLN, ONCE, Dosing Weight 120.909, kg, Start date: 05/18/18 23:11:00 CDT, Stop date: 05/18/18 23:11:00 CDT [facility] morphine Sulfate 2018-05-19 02:31:00 No Notes: (Same as:MORPhine Sulfate) [facility] Acetaminophen 300 MG / Codeine Phosphate 30 MG Oral Tablet [Tylenol with Codeine #3] 2018-05-18 18:52:00 No Notes: Do not exceed 4gm/day of acetaminophen. (Same as: Tylenol with Codeine # 3) [facility] Meperidine 2018-05-18 18:51:00 No Notes: (S zenaida As: Demerol) [facility] Diphenhydramine 2018-05-18 18:51:00 No Notes: (Same as: Benadryl) [facility] Ondansetron 2018-05-18 18:51:00 No Notes: (Same as: Zofran) MEDICATION WASTE Product Size: 4 mg Product Wasted: ___ mg Shahida Soto Promethazine 2018-05-18 18:51:00 No 6.25 mg, Route: IVPB, ONCE, Dosing Weight 120.909, kg, PRN Nausea & Vomiting, Start date: 05/18/18 13:51:00 CDT [facility] Naloxone 2018-05-18 18:51:00 No Notes: Same as Narcan [facility] Hydromorphone 2018-05-18 18:51:00 No Notes: Same as: Dilaudid [facility] Fentanyl 2018-05-18 18:51:00 No 50 microgram, Route: IVP, Q5Min, Dosing Weight 120.909, kg, PRN Pain Score 7-10, Priority: Routine, Start date: 05/18/18 13:51:00 CDT, Duration: 2 doses or times, Stop date: Limited # of times [facility] Flumazenil 2018-05-18 18:51:00 No Notes: (S zenaida as: Romazicon) [facility] Albuterol 0.83 MG/ML Inhalant Solution 2018-05-18 18:51:00 No Notes: SEE RT DOCUMENTATION (Same as: Proventil) [facility] Ketorolac 2018-05-18 18:51:00 No 4 days MEDICATION WASTE Product Size: 30 mg Product Wasted: ___ mg Shahida Soto Labetalol 2018-05-18 18:51:00 No Notes: (Same as: Normodyne, Trandate) Push over 2 minutes Give bolus over 2-3 minutes. [facility] Hydralazine 2018-05-18 18:51:00 No Notes: (Same as: Apresoline) Push over 5 minutes [facility] Acetaminophen 2018-05-18 18:51:00 No Notes: Max acetaminophen 4000 mg/day (4 gm/day). (Same as: Tylenol Extra Strength) [facility] Oxycodone 2018-05-18 18:51:00 No Notes: (Sa me as: Roxicodone) [facility] lidocaine (ANES) 2018-05-18 18:43:00 No Route: IV, Drug form: INJ, ONCE, Stop date: 05/18/18 13:43:00 CDT [facility] ondansetron (ANES) 2018-05-18 18:43:00 No Route: IV, Drug form: INJ, ONCE, Stop date: 05/18/18 13:43:00 [facility] prop[facility] ([facility]ES) 2018-05-18 18:43:00 No Route: IV, Drug form: INJ, ONCE, Stop date: 05/18/18 13:43:00 [facility]T [facility] dexamethasone (ANES) 2018-05-18 18:43:00 No Route: IV, Drug form: INJ, ONCE, Stop date: 05/18/18 13:43:00 CDT [facility] ketOROLAC (ANES) 2018-05-18 18:43:00 No IV, ONCE [facility] fentaNYL (ANES) 2018-05-18 18:43:00 No Route: IV, Drug form: INJ, ONCE, Stop date: 05/18/18 13:43:00 CDT [facility] midazolam (ANES) 2018-05-18 18:43:00 No Route: IV, Drug form: SOLN, ONCE, Stop date: 05/18/18 13:43:00 CDT [facility] vancomycin (ANES) 1000 mg 2018-05-18 18:16:00 No Route: IV, Drug form: INJ, Start date: 05/18/18 13:16:00 CDT, Stop date: 05/18/18 14:16:00 CDT [facility] Lactated Ringers Injection IV (ANES) 1000 mL 2018-05-18 18:16:00 No Route: IV, Total Volume: 1,000, Start date: 05/18/18 13:16:00 CDT, Stop date: 05/18/18 14:16:00 CDT [facility] Sodium Chloride 0.9% IV 1,000 mL 2018-05-18 18:01:00 No 1,000 mL, Rate: 25 ml/hr, Infuse over: 40 hr, Route: IV, Dosing Weight 120.909 kg, Total Volume: 1,000, Start date: 05/18/18 13:01:00 CDT, Duration: 30 day, Stop date: 06/17/18 13:00:00 CDT, 2.41, m2 [facility] Calcium Chloride 0.0014 MEQ/ML / Potassi um Chloride 0.004 MEQ/ML / Sodium Chloride 0.103 MEQ/ML / Sodium Lactate 0.028 MEQ/ML Injectable Solution 2018-05-18 18:01:00 No 1,000 mL, Rate: 25 ml/hr, Infuse over: 40 hr, Route: IV, Dosing Weight 120.909 kg, Total Volume: 1,000, Start date: 05/18/18 13:01:00 CDT, Duration: 30 day, Stop date: 06/17/18 13:00:00 CDT, 2.41, m2 [facility] vancomycin + Sodium Chloride 0.9% IV 250 mL 2018-05-17 19:00:00 No 1,000 mg, Route: IVPB, [id number], Dosing Weight 119.091, kg, Start date: 05/17/18 14:00:00 CDT, Duration: 7 day, Stop date: 05/24/18 2:00:00 CDT, ABX Indication: Skin/Soft Tissue Infection [facility] influenza virus vaccine, inactivated 2018-05-17 08:20:35 No Notes: (Same as: Fluzone Quadrivalent, Fluarix Quadrivalent) For 3 years of age and older (0.5 mL IM) Shake well before use [facility] Vancomycin 2018-05-17 08:00:00 No 1,000 mg, Route: IVPB, Drug form: INJ, [id number], Dosing Weight 119.091, kg, Start date: 05/17/18 3:00:00 CDT, Duration: 7 day, Stop date: 05/23/18 15:00:00 CDT, ABX Indication: Pneumonia [facility] Enoxaparin 2018-05-17 08:00:00 No Notes: (S zenaida as: Lovenox) [facility] Saline Flush 0.9% 2018-05-17 07:46:00 No Notes: (Same as: BD Posiflush) [facility] Lactated Ringers IV 1,000 mL 2018-05-17 07:46:00 No 1,000 mL, Rate: 75 ml/hr, Infuse over: 13.3 hr, Route: IV, Dosing Weight 119.091 kg, Total Volume: 1,000, Start date: 05/17/18 2:46:00 CDT, Duration: 30 day, Stop date: 06/16/18 2:45:00 CDT, 2.39, m2 [facility] Ondansetron 2018-05-17 07:46:00 No Notes: (Same as: Zofran) MEDICATION WASTE Product Size: 4 mg Product Wasted: ___ mg [facility] Acetaminophen 2018-05-17 07:46:00 No Notes: Do not exceed 4 gm/day. (Same as: Tylenol) [facility] Morphine 2018-05-17 07:46:00 No 2 mg, 1 mL, Route: IVP, Drug form: SOLN, Q4H, Dosing Weight 119.091, kg, PRN Pain Score 7-10, Start date: 05/17/18 2:46:00 CDT, Duration: 30 day, Stop date: 06/16/18 2:45:00 CDT [facility] Ondansetron 2018-05-17 06:21:00 No Notes: (Same as: Sandrafrsteven) MEDICATION WASTE Product Size: 4 mg Product Wasted: ___ mg [facility] Morphine 2018-05-17 06:21:00 No Not es: (Same as:MORPhine Sulfate) [facility] Vancomycin 2018-05-17 05:38:00 No 2001 mg: infuse over 2.5 hours For adult patients only: Round to nearest 250 mg per Medical Staff approval MEDICATION WASTE Product Size: 1000 mg Product Wasted: ___ mg [facility] Nitrofurantoin Monohyd/M-Cryst (Macrobid 100 Mg Capsul e) 100 Mg CAPSULE Nitrofurantoin Monohyd/M-Cryst (Macrobid 100 Mg Capsule) 100 Mg CAPSULE 2018-02-05 01:42:00 2020-04-13 00:00:00 No 100 Twice A Day [facility] Ondansetron (Zofran Odt) 4 Mg TAB.RAPDIS Ondansetron ( Zofran Odt) 4 Mg TAB.RAPDIS 2018-02-05 01:42:00 2020-04-13 00:00:00 No 4 Every 6 Hours as needed for Nausea [facility] Methocarbamol 750 MG Oral Tablet [Robaxin] 2018-01-13 02:51:00 Yes 750 mg = 1 tab, PO, TID, PRN as needed for pain, X 7 day, # 30 tab, 0 Refill(s) Shahida Soto tramadol hydrochloride 50 MG Oral Tablet 2018-01-13 02:51:00 Yes 50 mg = 1 tab, PO, Q6H, PRN Pain, not to exceed 400 mg/day, X 5 day, # 24 tab, 0 Refill(s) Shahida Multaniann ibuprofen 800 mg oral tablet 2018-01-13 02:50:00 Yes 800 mg = 1 tab, PO, Q8H, PRN Fever or Pain, Take with food, X 10 day, # 30 tab, 0 Refill(s) Shahida Soto Acetaminophen 325 MG / Hydrocodone Nereyda trate 7.5 MG Oral Tablet [Kent 7.5/325] 2018-01-13 02:45:00 No Notes: Same as [place] 325-7.5mg Do not exceed 4gm/day of acetaminophen. [facility] Valium 2018-01-13 01:08:00 No Notes: (Same as: Valium) [facility] [place] Ketorolac 2018-01-13 01:08:00 No 4 days MEDICATION WASTE Product Size: 30 mg Product Wasted: ___ mg [facility] [place] Tylenol 2018-01-12 21:33:00 No Notes: Do not exceed 4 gm/day. (Same as: Tylenol) Shahida Soto Buspirone 2016-12-31 17:00:00 No Notes: ([facility] As: BuSpar) Shahida Soto Phenergan 2016-12-31 14:31:00 No Notes: ([facility] as: Phenergan) Shahida [place] Phenergan 25 mg oral tablet 2016-12-31 14:31:00 Yes 25 mg, PO, Q6H, PRN Nausea & Vomiting, X 5 day, # 20 tab, 0 Refill(s), Pharmacy: [facility] [id number] Shahida [place] Sodium Chloride 0.154 MEQ/ML Injectable Solution 2016-12-31 14:3 0:00 No 1,000 mL, Rate: 150 ml/hr, I nfuse over: 6.7 hr, Route: IV, Dosing Weight 109 kg, Total Volume: 1,000, Start date: 12/31/16 9:30:00 CDT, Duration: 30 day, Stop date: 01/30/17 9:29:00 CDT [facility] Trazodone 2016-12-31 14:25:00 No Notes: (Sa me As: Desyrel) [facility] Cipro 2016-12-31 14:00:00 No Notes: May interfere w/enteral feedings - Take 1 hr before or 2 hrs after antacids, dairy pdt & minerals. On empty stomach. [facility] Flagyl 2016-12-31 14:00:00 No Notes: (Same as: Flagyl) Take with food/ avoid alcohol [facility] Fluoxetine 2016-12-31 14:00:00 No Notes: (S zenaida as: Prozac) [facility] Levsin SL 2016-12-31 13:41:00 No Notes: (Same as: Levsin) Take 30 min before meal [facility] Promethazine 2016-12-31 10:15:00 No Notes: Do not give IV push. (Same as: Phenergan) [facility] Zofran 2016-12-31 09:33:00 No 4 mg, Route: IVP, Drug form: INJ, ONCE, Dosing Weight 109.091, kg, Priority: STAT, Start date: 12/31/16 4:33:00 CDT, Stop date: 12/31/16 4:33:00 CDT [facility] [place] Morphine 2016-12-31 09:30:00 No 4 mg, Route: IVP, ONCE, Dosing Weight 109.091, kg, Priority: STAT, Start date: 12/31/16 4:30:00 CDT, Stop date: 12/31/16 4:30:00 CDT [facility] Rocephin 2016-12-31 06:26:00 No Notes: (Same As: Rocephin). Use with 100 mL NS and infuse over 30 min MEDICATION WASTE Product Size: 1000 mg Product Wasted: ___ mg [facility] Ondansetron 2016-12-31 04:55:00 No Notes: (Same as: Zofran) MEDICATION WASTE Product Size: 4 mg Product Wasted: ___ mg [facility] Morphine 2016-12-31 04:55:00 No Not es: (Same as:MORPhine Sulfate) Shahida Soto Saline Flush 0.9% 2016-12-31 04:55:00 No Notes: (Same as: BD Posiflush) Shahida Soto Sodium Chloride 0.154 MEQ/ML Injectable Solution 2016-12-31 04:5 5:00 No 1,000 mL, 2,000 ml/hr, Infus e Over: 30 minutes, Route: IV, 1,000, Drug form: INJ, ONCE, Priority: STAT, Dosing Weight 109.091 kg, Start date: 12/30/16 23:55:00 CDT, Duration: 1 doses or times, Stop date: 12/30/16 23:55:00 CDT [facility] Ciprofloxacin 500 MG Oral Tablet [Cipro] 2016-12-25 23:04:00 Yes 500 mg = 1 tab, PO, Q12H, X 7 day, # 14 tab, 0 Refill(s), Pharmacy: [facility] [id number] [facility] Acetaminophen 300 MG / Codeine Phosphate 30 MG Oral Tablet [Tylenol with Codeine #3] 2016-12-25 23:04:00 No 1 - 2 tab, PO, Q4H, PRN Pain, X 2 day, # 10 tab, 0 Refill(s) [facility] Metronidazole 500 MG Oral Tablet [Flagyl] 2016-12-25 23:04:00 Yes 500 mg = 1 tab, PO, BID, X 7 day, # 14 tab, 0 Refill(s), Pharmacy: [facility] [id number] [facility] Sodium Chloride 0.154 MEQ/ML Injectable Solution 2016-12-25 22:5 3:00 No 500 mL, 500 ml/hr, Infuse Ov er: 1 hr, Route: IV, 500, Drug form: INJ, ONCE, Priority: STAT, Dosing Weight 109.091 kg, Start date: 12/25/16 17:53:00 CDT, Duration: 1 doses or times, Stop date: 12/25/16 17:53:00 CDT [facility] Acetaminophen 300 MG / Codeine Phosphate 30 [...] Priority: STAT, Start date: 07/19/16 21:44:00 MANAGER WELDING, Stop date: 07/19/16 21:44:00 MANAGER WELDING Az christei Soto Ketorolac 2016-07-20 03:28:00 No 30 mg, Route: IVP, Drug form: INJ, ONCE, Dosing Weight 104.545, kg, Priority: STAT, Start date: 07/19/16 21:28:00 MANAGER WELDING, Stop date: 07/19/16 21:28:00 MANAGER WELDING Az christie Soto Zofran 2016-07-20 01:40:00 No Notes: (Same as: Michael) MEDICATION WASTE Product Size: 4 mg Product Wasted: ___ mg Shahida Soto Famotidine 20 MG Oral Tablet [Pepcid] 2016-07-20 01:40:00 N o 20 mg, 1 tab, Route: PO, ONCE, Dosing Weight 104.545, kg, Start date: 07/19/16 19:40:00 MANAGER WELDING, Stop date: 07/19/16 19:40:00 MANAGER WELDING Dl [facility] Sodium Chloride 0.154 MEQ/ML Injectable Solution 2016-07-20 01:4 0:00 No 1,000 mL, 1,000 ml/hr, Infus e Over: 1 hr, Route: IV, 1,000, Drug form: INJ, ONCE, Priority: STAT, Dosing Weight 104.545 kg, Start date: 07/19/16 19:40:00 MANAGER WELDING, Duration: 1 doses or times, Stop date: 07/19/16 19:40:00 MANAGER WELDING [facility] GI cocktail 2016-07-20 01:39:00 No 30 mL, Route: PO, Dosing Weight 104.545, kg, ONCE, STAT, Start date: 07/19/16 19:39:00 MANAGER WELDING, Stop date: 07/19/16 19:39:00 MANAGER WELDING [facility] Carafate 2016-07-20 01:39:00 No Notes: May interfere w/enteral feeds - Take 1 hr before or 2 hr after antacids, dairy pdt, meals & minerals - On empty stomach. (Same As: Carafate) Efraín Soto Cyclobenzaprine hydrochloride 10 MG Oral Tablet [Flexeril] 2016-04-23 08:02:00 Yes 10 mg, PO, TID, PRN Muscle Spasm, X 10 day, # 30 tab, 0 Refill(s) [facility] tramadol hydrochloride 50 MG Oral Tablet 2016-04-23 06:34:00 No 50 mg, Route: PO, Drug form: TAB, ONCE, Dosing Weight 94.091, kg, Priority: STAT, Start date: 04/23/16 1:34:00 CDT, Stop date: 04/23/16 1:34:00 CDT [facility] Valium 2016-04-23 06:33:00 No 10 mg, Route: PO, ONCE, Dosing Weight 94.091, kg, Start date: 04/23/16 1:33:00 CDT, Stop date: 04/23/16 1:33:00 CDT [facility] Ketorolac 2016-04-23 06:33:00 No 60 mg, Route: IM, Drug form: INJ, ONCE, Dosing Weight 94.091, kg, Priority: STAT, Start date: 04/23/16 1:33:00 CDT, Stop date: 04/23/16 1:33:00 [facility] [place] Methocarbamol 750 MG Oral Tablet [Robaxin] 2016-04-16 08:36:00 Yes 750 mg = 1 tab, PO, TID, PRN as needed for pain, X 10 day, # 30 tab, 0 Refill(s) [facility] Acetaminophen 300 MG / Codeine Phosphate 30 MG Oral Tablet [Tylenol with Codeine #3] 2016-04-16 08:36:00 No 1 - 2 tab, PO, Q4H, PRN Pain, X 2 day, # 24 tab, 0 Refill(s) [facility] Flexeril 2016-04-16 08:20:00 No 10 mg, Route: PO, ONCE, Dosing Weight 103.182, kg, Priority: STAT, Start date: 04/16/16 3:20:00 CDT, Stop date: 04/16/16 3:20:00 CDT [facility] Zofran ODT 2016-04-16 07:09:00 No 4 mg, Route: PO, Drug form: TABDIS, ONCE, Dosing Weight 103.182, kg, Priority: STAT, Start date: 04/16/16 2:09:00 CDT, Stop date: 04/16/16 2:09:00 CDT [facility] Dilaudid 2016-04-16 07:09:00 No 1 mg, Route: IM, ONCE, Dosing Weight 103.182, kg, Priority: STAT, Start date: 04/16/16 2:09:00 CDT, Stop date: 04/16/16 2:09:00 CDT [facility] promethazine 12.5 mg oral tablet 2016-04-14 08:15:00 Yes 12.5 mg = 1 tab, PO, Q6H, PRN Nausea & Vomiting, X 5 day, # 20 tab, 0 Refill(s) [facility] Hyoscyamine Sulfate 0.125 MG Sublingual Tablet [Levsin] 2016-04-14 08:14:00 Yes 0.125 mg = 1 ta b, SL, Q6H, PRN abdominal spasm, # 28 tab, 0 Refill(s) [facility] omeprazole 40 mg oral delayed release capsule 2016-04-14 08:13:0 0 Yes 40 mg = 1 cap, PO, Daily, # 30 cap, 0 Refill(s) [facility] Promethazine 2016-04-14 08:04:00 No Notes: Do not give IV push. (Same as: Phenergan) [facility] GI cocktail 2016-04-14 07:12:00 No 30 mL, Route: PO, Dosing Weight 103.182, kg, ONCE, STAT, Start date: 04/14/16 2:12:00 CDT, Stop date: 04/14/16 2:12:00 CDT [facility] pantoprazole 2016-04-14 07:12:00 No 40 mg, Route: IVP, ONCE, Dosing Weight 103.182, kg, Priority: STAT, Start date: 04/14/16 2:12:00 CDT, Stop date: 04/14/16 2:12:00 CDT [facility] Morphine 2016-04-14 05:57:00 No 4 mg, Route: IVP, Drug form: INJ, ONCE, Dosing Weight 103.182, kg, Priority: STAT, Start date: 04/14/16 0:57:00 CDT, Stop date: 04/14/16 0:57:00 CDT [facility] dorothea [place] pantoprazole 2016-04-14 05:57:00 No 40 mg, Route: IVP, ONCE, Dosing Weight 103.182, kg, For IV push reconstitute with 10 ml 0.9% sodium chloride and push over at least 3 minutes, Priority: STAT, Start date: 04/14/16 0:57:00 CDT, Stop date: 04/14/16 0:57:00 CDT Michael l [place] Ondansetron 2016-04-14 05:57:00 No 4 mg, Route: IVP, ONCE, Dosing Weight 103.182, kg, Priority: STAT, Start date: 04/14/16 0:57:00 CDT, Stop date: 04/14/16 0:57:00 CDT [facility] Sodium Chloride 0.154 MEQ/ML Injectable Solution 2016-04-14 05:5 7:00 No 1,000 mL, 2,000 ml/hr, Infus e Over: 30 minutes, Route: IV, ONCE, Priority: STAT, Dosing Weight 103.182 kg, Start date: 04/14/16 0:57:00 CDT, Duration: 1 doses or times, Stop date: 04/14/16 0:57:00 CDT [facility] Saline Flush 0.9% 2016-04-14 05:57:00 No Notes: (Same as: BD Posiflush) Shahida [facility]oto Reglan 2016-02-24 06:09:00 No 10 mg, Route: IVP, Drug form: INJ, ONCE, Dosing Weight 100.455, kg, Priority: STAT, Start date: 02/24/16 1:09:00 CDT, Stop date: 02/24/16 1:09:00 CDT Mendoza S[facility] Levsin 2016-02-24 06:09:00 No Notes: (Same as: Addysin) MEDICATION WASTE Product Size: 0.5 mg Product Wasted: ___ mg [facility] Dicyclomine Hydrochloride 20 MG Oral Tablet [Bentyl] 2 05:48:00 Yes 20 mg = 1 tab, PO, QID, # 28 tab, 0 Refi ll(s) [facility] Metoclopramide 10 MG Oral Tablet [Reglan] 2016-02-24 05:48:00 Yes 10 mg = 1 tab, PO, QID-Before Meals, X 10 day, # 40 tab, 0 Refill(s) [facility] Morphine 2016-02-24 05:09:00 No 4 mg, Route: IVP, Drug form: INJ, ONCE, Dosing Weight 100.455, kg, Priority: STAT, Start date: 02/24/16 0:09:00 CDT, Stop date: 02/24/16 0:09:00 [facility] Sulfate 2016-02-24 04:50:00 No 1 gm, Route: IV, ONCE, Dosing Weight 100.455, kg, Start date: 02/23/16 23:50:00 CDT, Stop date: 02/23/16 23:50:00 CDT [facility] Zofran 2016-02-24 04:34:00 No 4 mg, Route: IVP, Drug form: INJ, ONCE, Dosing Weight 100.455, kg, Priority: STAT, Start date: 02/23/16 23:34:00 CDT, Stop date: 02/23/16 23:34:00 CDT Az christie S[facility] Sodium Chloride 0.154 MEQ/ML Injectable Solution 2016-02-24 04:3 4:00 No 1,000 mL, 1,000 ml/hr, Infus e Over: 1 hr, Route: IV, ONCE, Priority: STAT, Dosing Weight 100.455 kg, Start date: 02/23/16 23:34:00 CDT, Duration: 1 doses or times, Stop date: 02/23/16 23:34:00 CDT [facility] Saline Flush 0.9% 2016-02-24 03:26:00 No Notes: (Same as: BD Posiflush) Shahida [place] Morphine 2016-01-17 05:13:00 No Not es: (Same as:MORPhine Sulfate) [facility] [place] Hyoscyamine Sulfate 0.125 MG Oral Tablet [Levsin] 2016-01-17 04:31:00 Yes 0.125 mg = 1 tab, PO, QID, PRN Spasm, # 40 tab, 0 Refill(s) [facility] Ondansetron 4 MG Disintegrating Tablet [Zofran] 2016-01-17 04:29 :00 Yes 4 mg = 1 tab, PO, BID, PRN N ausea and Vomiting, Dissolve tab under tongue, X 5 day, # 10 tab, 0 Refill(s) [facility] Senia valdes Bentyl 2016-01-17 04:00:00 No 20 mg, Route: IM, ONCE, Dosing Weight 100.455, kg, Start date: 01/16/16 23:00:00 CDT, Stop date: 01/16/16 23:00:00 CDT [facility] Zofran 2016-01-17 03:59:00 No 4 mg, Route: IVP, Drug form: INJ, ONCE, Dosing Weight 100.455, kg, Priority: STAT, Start date: 01/16/16 22:59:00 CDT, Stop date: 01/16/16 22:59:00 CDT Az christie [facility] Morphine 2016-01-17 02:57:00 No Not [...] 08:13:00 No Not es: (Same as:MORPhine Sulfate) [facility] Ondansetron 2015-10-13 08:13:00 No Notes: (Same as: Zofran) MEDICATION WASTE Product Size: 4 mg Product Wasted: ___ mg [facility] Famotidine 2015-10-13 08:13:00 No Notes: (Same as: Pepcid) Can be dilute in 5-10cc NS IVP: Slow IV push over at least 2 minutes. [facility] GI cocktail 2015-10-13 08:13:00 No Notes: G.I. Cocktail = antacid with simethicone 22.5 mL - lidocaine viscous 7.5 mL [facility] Saline Flush 0.9% 2015-10-13 08:13:00 No Notes: (Same as: BD Posiflush) [facility] Sodium Chloride 0.154 MEQ/ML Injectable Solution 2015-10-13 08:1 3:00 No 1,000 mL, 1000 ml/hr, Infuse Over: 1 hr, Route: IV, 1,000, Drug form: INJ, ONCE, Priority: STAT, Dosing Weight 101.818 kg, Start date: 10/13/15 2:13:00, Duration: 1 doses or times, Stop date: 10/13/15 2:13:00 [facility] Diphenhydramine 2015-07-04 06:52:00 No 25 mg, Route: IVP, ONCE, Dosing Weight 107.273, kg, Priority: STAT, Start date: 07/04/15 0:52:00, Stop date: 07/04/15 0:52:00 [facility] Famotidine 2015-07-04 06:52:00 No 20 mg, Route: IVP, ONCE, Dosing Weight 107.273, kg, Priority: STAT, Start date: 07/04/15 0:52:00, Stop date: 07/04/15 0:52:00 [facility] Morphine 2015-07-04 06:52:00 No 4 mg, Route: IVP, ONCE, Dosing Weight 107.273, kg, Priority: STAT, Start date: 07/04/15 0:52:00, Stop date: 07/04/15 0:52:00 [facility] Sodium Chloride 0.154 MEQ/ML Injectable Solution 2015-07-04 06:5 2:00 No 1,000 mL, 1,000 ml/hr, Infus e Over: 1 hr, Route: IV, ONCE, Priority: STAT, Dosing Weight 107.273 kg, Start date: 07/04/15 0:52:00, Duration: 1 doses or times, Stop date: 07/04/15 0:52:00 Mendozagus ramón Soto GI cocktail 2015-07-04 06:52:00 No 30 mL, Route: PO, Dosing Weight 107.273, kg, ONCE, STAT, Start date: 07/04/15 0:52:00, Stop date: 07/04/15 0:52:00 Shahida Soto Acetaminophen 325 MG / Hydrocodone Bitartrate 5 MG Oral Tabl et 2015-05-17 10:39:00 No Notes: (Sa me as: Kent 325/5) Do not exceed 4gm/day of acetaminophen. Shahida Soto Ibuprofen 2015-05-17 07:14:00 No 600 mg, Route: PO, ONCE, Dosing Weight 112.273, kg, Priority: STAT, Start date: 05/17/15 2:14:00, Stop date: 05/17/15 2:14:00 Shahida Soto omeprazole 40 mg oral delayed release capsule 2015-05-15 12:39:0 0 Yes 40 mg = 1 cap, PO, Daily, # 30 cap, 0 Refill(s) Shahida Soto Dicyclomine Hydrochloride 20 MG Oral Tablet [Bentyl] 2 12:38:00 Yes 20 mg = 1 tab, PO, QID-Before Meals, # 2 8 tab, 0 Refill(s) Shahida Soto Ondansetron 4 MG Oral Tablet [Zofran] 2015-05-15 12:38:00 Y es 4 mg = 1 tab, PO, TID, X 5 day, # 15 tab, 0 Refill(s) Shahida Soto Acetaminophen 325 MG / Hydrocodone Nereyda trate 7.5 MG Oral Tablet [Kent 7.5/325] 2015-05-15 12:15:00 No 1 tab, Route: PO, Drug Form: TAB, Dosing Weight 122.727, kg, ONCE, STAT, Start date: 05/15/15 7:15:00, Stop date: 05/15/15 7:15:00 [facility] Ketorolac 2015-05-15 12:14:00 No 30 mg, Route: IVP, Drug form: INJ, ONCE, Dosing Weight 122.727, kg, Priority: STAT, Start date: 05/15/15 7:14:00, Stop date: 05/15/15 7:14:00 [facility] Zofran 2015-05-15 11:28:00 No 4 mg, Route: IVP, Drug form: INJ, ONCE, Dosing Weight 122.727, kg, Priority: STAT, Start date: 05/15/15 6:28:00, Stop date: 05/15/15 6:28:00 [facility] bravo Morphine 2015-05-15 09:19:00 No 4 mg, Route: IVP, Drug form: INJ, ONCE, Dosing Weight 122.727, kg, Priority: STAT, Start date: 05/15/15 4:19:00, Stop date: 05/15/15 4:19:00 [facility] Zofran 2015-05-15 09:19:00 No 4 mg, Route: IVP, Drug form: INJ, ONCE, Dosing Weight 122.727, kg, Priority: STAT, Start date: 05/15/15 4:19:00, Stop date: 05/15/15 4:19:00 [facility] bravo Sodium Chloride 0.154 MEQ/ML Injectable Solution [...] doses or times, Stop date: 02/14/15 1:40:00 [facility] Benadryl 2015-02-14 06:05:00 No Notes: (Byron e as: Mike) [facility] Reglan 2015-02-14 06:05:00 No Notes: (Same as: Reglan) [facility] Ondansetron 4 MG Oral Tablet [Zofran] 2014-09-30 07:04:00 Y es 4 mg = 1 tab, PO, BID, # 10 tab, 0 Refill(s) [facility] [place] Morphine 2014-09-30 06:32:00 No 4 mg, Route: IV, Drug form: INJ, ONCE, Dosing Weight 118.182, kg, Start date: 09/30/14 0:32:00, Stop date: 09/30/14 0:32:00 [facility] Morphine 2014-09-30 06:31:00 No 4 mg, Route: IM, Drug form: INJ, ONCE, Dosing Weight 118.182, kg, Priority: STAT, Start date: 09/30/14 0:31:00, Stop date: 09/30/14 0:31:00 [facility] Saline Flush 0.9% 2014-09-30 05:25:00 No Notes: Same as: BD Posiflush Sterile [facility] Sodium Chloride 0.154 MEQ/ML Injectable Solution 2014-09-30 05:2 5:00 No 1,000 mL, Infuse Over: 1 hr, Route: IV, ONCE, Priority: STAT, Dosing Weight 118.182 kg, Start date: 09/29/14 23:25:00, Duration: 1 doses or times, Stop date: 09/29/14 23:25:00 [facility] Acetaminophen/Codeine Phosphate (Tylenol # 3*) 1 Ea TA B Acetaminophen/Codeine Phosphate (Tylenol # 3*) 1 Ea TAB Yes 1 Every 4 Hours as needed for Moderate Pain (4-6) [facility] Amphet Asp/Amphet/D-Amphet (Adderall Xr 30 Mg Capsule) 30 Mg CAP.ER.24H Amphet Asp/Amphet/D-Amphet (Adderall Xr 30 Mg Capsule) 30 Mg CAP.ER.24H Yes 30 Daily [facility] Zolpidem Tartrate (Ambien) 10 Mg TABLET Zolpidem Tartrate (A mbien) 10 Mg TABLET Yes 10 Bedtime as needed for Insomnia [facility] Levofloxacin (Levaquin) 500 Mg TABLET Levofloxacin (Levaquin) 50 0 Mg TABLET 2020-04-20 00:00:00 No 500 Daily [facility] Vital Signs Vital Name Observation Time Observation Value Comments Source Body Temperature 2020-04-20 15:30:00 99.2 [degF] [facility] BMI (Body Mass Index) 2020-04-17 23:00:00 46.3 kg/m2 [facility] Weight 2020-04-17 16:55:00 287 [lb_av] [facility] Body Temperature 2020-04-14 20:10:00 97.7 [degF] [facility] Weight 2020-04-14 05:34:00 287.06 [lb_av] [facility] BMI (Body Mass Index) 2020-04-14 05:34:00 46.3 kg/m2 [facility] Temperature Oral (F) 2020-03-26 16:57:00 98.6 F [facility] [place] Heart Rate 2020-03-26 16:57:00 [facility] Systolic (mm Hg) 2020-03-26 16:57:00 Efraín rial [facility] Diastolic (mm Hg) 2020-03-26 16:57:00 [facility] Temperature Oral (F) 2020-03-26 13:00:00 98.2 F [facility] [place] Heart Rate 2020-03-26 13:00:00 [facility] [place] Respitory Rate 2020-03-26 13:00:00 [facility] Systolic (mm Hg) 2020-03-26 13:00:00 Efraín rial [place] Diastolic (mm Hg) 2020-03-26 13:00:00 [facility] Temperature Oral (F) 2020-03-26 09:00:00 98.1 F [facility] [place] Heart Rate 2020-03-26 09:00:00 [facility] [place] Respitory Rate 2020-03-26 09:00:00 [facility] [place] Systolic (mm Hg) 2020-03-26 09:00:00 Efraín rial [facility] Diastolic (mm Hg) 2020-03-26 09:00:00 [facility] [place] Respitory Rate 2020-03-26 05:00:00 [facility] Height 2020-03-23 08:19:00 167.64 cm [facility] Weight 2020-03-23 08:19:00 [facility] [place] BMI Calculated 2020-03-23 08:19:00 [facility] Temperature Oral (F) 2019-11-04 16:17:00 99.3 F [facility] Heart Rate 2019-11-04 16:17:00 [facility] [place] Respitory Rate 2019-11-04 16:17:00 [facility] Systolic (mm Hg) 2019-11-04 16:17:00 Efraín rial [facility] Diastolic (mm Hg) 2019-11-04 16:17:00 [facility] [place] Temperature Oral (F) 2019-11-04 12:53:00 98.2 F [facility] Heart Rate 2019-11-04 12:53:00 [facility] Respitory Rate 2019-11-04 12:53:00 [facility] [place] Systolic (mm Hg) 2019-11-04 12:53:00 Efraín rial [facility] Diastolic (mm Hg) 2019-11-04 12:53:00 [facility] Temperature Oral (F) 2019-11-04 08:40:00 98.2 F [facility] [place] Heart Rate 2019-11-04 08:40:00 [facility] [place] Systolic (mm Hg) 2019-11-04 08:40:00 Efraín rial [place] Diastolic (mm Hg) 2019-11-04 08:40:00 [facility] [place] Respitory Rate 2019-11-04 03:38:00 [facility] [place] Height 2019-11-02 08:32:00 167.64 cm [facility] Weight 2019-11-02 08:32:00 [facility] [place] BMI Calculated 2019-11-02 08:32:00 [facility] Temperature Oral (F) 2019-05-25 09:20:00 98 F [facility] Heart Rate 2019-05-25 09:20:00 [facility] [place] Respitory Rate 2019-05-25 09:20:00 [facility] [place] Systolic (mm Hg) 2019-05-25 09:20:00 Efraín rial [facility] Diastolic (mm Hg) 2019-05-25 09:20:00 [facility] Temperature Oral (F) 2019-05-25 07:10:00 98 F [facility] Heart Rate 2019-05-25 07:10:00 [facility] Respitory Rate 2019-05-25 07:10:00 [facility] [place] Systolic (mm Hg) 2019-05-25 07:10:00 Efraín rial [place] Diastolic (mm Hg) 2019-05-25 07:10:00 [facility] Systolic (mm Hg) 2019-05-25 05:17:00 Efraín rial [place] Diastolic (mm Hg) 2019-05-25 05:17:00 [facility] [place] Heart Rate 2019-05-25 05:17:00 [facility] Respitory Rate 2019-05-25 05:17:00 [facility] [place] Temperature Oral (F) 2019-05-25 05:17:00 98.2 F [facility] Height 2019-05-25 05:17:00 167.64 cm [facility] BMI Calculated 2019-05-25 05:17:00 [facility] [place] Weight 2019-05-25 05:17:00 [facility] Systolic (mm Hg) 2019-05-16 22:30:00 Efraín rial [place] Diastolic (mm Hg) 2019-05-16 22:30:00 [facility] Respitory Rate 2019-05-16 22:30:00 [facility] Heart Rate 2019-05-16 22:30:00 [facility] Temperature Oral (F) 2019-05-16 22:30:00 98.6 F [facility] Systolic (mm Hg) 2019-05-16 19:01:00 Efraín rial [facility] Diastolic (mm Hg) 2019-05-16 19:01:00 [facility] Heart Rate 2019-05-16 19:01:00 [facility] [place] Respitory Rate 2019-05-16 19:01:00 [facility] Temperature Oral (F) 2019-05-16 19:01:00 98.8 F [facility] [place] Height 2019-05-16 19:01:00 167.64 cm [facility] [place] BMI Calculated 2019-05-16 19:01:00 [facility] Weight 2019-05-16 19:01:00 [facility] [place] Temperature Oral (F) 2019-04-04 01:04:00 98.6 F [facility] [place] Heart Rate 2019-04-04 01:04:00 [facility] Respitory Rate 2019-04-04 01:04:00 [facility] [place] Systolic (mm Hg) 2019-04-04 01:04:00 Efraín rial [facility] Diastolic (mm Hg) 2019-04-04 01:04:00 [facility] Systolic (mm Hg) 2019-04-03 20:30:00 Efraín rial [facility] Diastolic (mm Hg) 2019-04-03 20:30:00 [facility] [place] Heart Rate 2019-04-03 20:30:00 [facility] Respitory Rate 2019-04-03 20:30:00 [facility] Temperature Oral (F) 2019-04-03 20:30:00 98.6 F [facility] Weight 2019-04-03 20:30:00 [facility] [place] Systolic (mm Hg) 2019-03-24 17:01:00 Efraín rial [facility] Diastolic (mm Hg) 2019-03-24 17:01:00 [facility] [place] Respitory Rate 2019-03-24 17:01:00 [facility] Heart Rate 2019-03-24 17:01:00 [facility] [place] Temperature Oral (F) 2019-03-24 17:01:00 98.7 F [facility] Temperature Oral (F) 2019-03-24 13:35:00 98.0 F [facility] Heart Rate 2019-03-24 13:35:00 [facility] Systolic (mm Hg) 2019-03-24 13:35:00 Efraín rial [place] Diastolic (mm Hg) 2019-03-24 13:35:00 [facility] [place] Respitory Rate 2019-03-24 13:35:00 [facility] Heart Rate 2019-03-24 09:00:00 [facility] Respitory Rate 2019-03-24 09:00:00 [facility] Systolic (mm Hg) 2019-03-24 09:00:00 Efraín rial [place] Diastolic (mm Hg) 2019-03-24 09:00:00 [facility] Temperature Oral (F) 2019-03-24 09:00:00 98.1 F [facility] [place] BMI Calculated 2019-03-23 23:51:00 [facility] Height 2019-03-23 23:51:00 167.64 cm [facility] [place] Weight 2019-03-23 23:51:00 [facility] [place] BMI Calculated 2019-03-23 16:59:00 [facility] Weight 2019-03-23 16:59:00 [facility] [place] Height 2019-03-23 16:59:00 167.64 cm [facility] [place] Heart Rate 2019-03-07 20:22:00 [facility] [place] Respitory Rate 2019-03-07 20:22:00 [facility] [place] Systolic (mm Hg) 2019-03-07 20:22:00 Efraín rial [facility] Diastolic (mm Hg) 2019-03-07 20:22:00 [facility] Temperature Oral (F) 2019-03-07 20:22:00 98.5 F [facility] Systolic (mm Hg) 2019-03-07 15:57:00 Efraín rial [place] Diastolic (mm Hg) 2019-03-07 15:57:00 [facility] Respitory Rate 2019-03-07 15:57:00 [facility] Temperature Oral (F) 2019-03-07 15:57:00 98.4 F [facility] [place] Heart Rate 2019-03-07 15:57:00 [facility] Systolic (mm Hg) 2019-03-07 13:13:00 Efraín rial [place] Diastolic (mm Hg) 2019-03-07 13:13:00 [facility] Heart Rate 2019-03-07 13:13:00 [facility] Respitory Rate 2019-03-07 13:13:00 [facility] Temperature Oral (F) 2019-03-07 13:13:00 98.2 F [facility] Height 2019-03-01 05:55:00 167.64 cm [facility] Weight 2019-03-01 05:55:00 [facility] BMI Calculated 2019-03-01 05:55:00 [facility] Weight 2019-03-01 01:00:00 [facility] [place] Heart Rate 2019-01-31 19:54:00 [facility] Systolic (mm Hg) 2019-01-31 19:54:00 Erfaín rial [place] Diastolic (mm Hg) 2019-01-31 19:54:00 [facility] Systolic (mm Hg) 2019-01-31 19:44:00 Efraín rial [facility] Diastolic (mm Hg) 2019-01-31 19:44:00 [facility] Heart Rate 2019-01-31 19:44:00 [facility] [place] Systolic (mm Hg) 2019-01-31 19:31:00 Efraín rial [facility] Diastolic (mm Hg) 2019-01-31 19:31:00 [facility] [place] Heart Rate 2019-01-31 19:31:00 [facility] [place] Temperature Oral (F) 2019-01-31 17:05:00 98.8 F [facility] Temperature Oral (F) 2019-01-31 13:54:00 98.7 F [facility] [place] Respitory Rate 2019-01-31 08:40:00 [facility] [place] Temperature Oral (F) 2019-01-31 08:40:00 98.9 F [facility] [place] Respitory Rate 2019-01-31 04:46:00 [facility] [place] Respitory Rate 2019-01-31 00:20:00 [facility] [place] BMI Calculated 2019-01-27 11:20:00 [facility] [place] Height 2019-01-27 11:20:00 167.64 cm [facility] Weight 2019-01-27 11:20:00 [facility] Weight 2019-01-27 06:56:00 [facility] [place] BMI Calculated 2019-01-27 06:56:00 [facility] Height 2019-01-27 06:56:00 167.64 cm [facility] Systolic (mm Hg) 2018-12-13 03:27:00 Efraín rial [facility] Diastolic (mm Hg) 2018-12-13 03:27:00 [facility] Respitory Rate 2018-12-13 03:27:00 [facility] [place] Heart Rate 2018-12-13 03:27:00 [facility] Temperature Oral (F) 2018-12-13 03:27:00 98.8 F [facility] BMI Calculated 2018-12-13 01:17:00 [facility] [place] Weight 2018-12-13 01:17:00 [facility] [place] Height 2018-12-13 01:17:00 167.64 cm [facility] Respitory Rate 2018-12-13 01:17:00 [facility] [place] Temperature Oral (F) 2018-12-13 01:17:00 99.2 F [facility] Heart Rate 2018-12-13 01:17:00 [facility] Systolic (mm Hg) 2018-12-13 01:17:00 Efraín rial [facility] Diastolic (mm Hg) 2018-12-13 01:17:00 [facility] Systolic (mm Hg) 2018-12-09 20:35:00 Efraín rial [place] Diastolic (mm Hg) 2018-12-09 20:35:00 [facility] [place] Respitory Rate 2018-12-09 20:35:00 [facility] Heart Rate 2018-12-09 20:35:00 [facility] Temperature Oral (F) 2018-12-09 20:35:00 99.1 F [facility] [place] Temperature Oral (F) 2018-12-09 16:07:00 98.5 F [facility] [place] Systolic (mm Hg) 2018-12-09 16:07:00 Efraín rial [facility] Diastolic (mm Hg) 2018-12-09 16:07:00 [facility] [place] Respitory Rate 2018-12-09 16:07:00 [facility] [place] Heart Rate 2018-12-09 16:07:00 [facility] [place] Systolic (mm Hg) 2018-12-09 12:39:00 Efraín rial [place] Diastolic (mm Hg) 2018-12-09 12:39:00 [facility] Respitory Rate 2018-12-09 12:39:00 [facility] [place] Heart Rate 2018-12-09 12:39:00 [facility] Temperature Oral (F) 2018-12-09 12:39:00 98.4 F [facility] Weight 2018-12-04 12:06:00 [facility] [place] Height 2018-12-04 03:30:00 167.64 cm [facility] [place] BMI Calculated 2018-12-04 03:30:00 [facility] [place] Weight 2018-12-04 03:30:00 [facility] BMI Calculated 2018-12-03 20:49:00 [facility] [place] Weight 2018-12-03 20:49:00 [facility] [place] Height 2018-12-03 20:49:00 167.64 cm [facility] [place] Systolic (mm Hg) 2018-10-12 17:28:00 Efraín rial [place] Diastolic (mm Hg) 2018-10-12 17:28:00 [facility] Heart Rate 2018-10-12 17:28:00 [facility] [place] Respitory Rate 2018-10-12 17:28:00 [facility] [place] Temperature Oral (F) 2018-10-12 17:28:00 98.3 F [facility] Heart Rate 2018-10-12 13:39:00 [facility] Temperature Oral (F) 2018-10-12 13:39:00 97.9 F [facility] [place] Systolic (mm Hg) 2018-10-12 13:39:00 Efraín rial [facility] Diastolic (mm Hg) 2018-10-12 13:39:00 [facility] [place] Respitory Rate 2018-10-12 13:39:00 [facility] Systolic (mm Hg) 2018-10-12 09:47:00 Efraín rial [facility] Diastolic (mm Hg) 2018-10-12 09:47:00 [facility] Respitory Rate 2018-10-12 09:47:00 [facility] Heart Rate 2018-10-12 09:47:00 [facility] Temperature Oral (F) 2018-10-12 09:47:00 98.0 F [facility] [place] Weight 2018-10-11 11:23:00 [facility] Height 2018-10-11 11:23:00 167.64 cm [facility] BMI Calculated 2018-10-11 11:23:00 [facility] [place] Systolic (mm Hg) 2018-10-11 09:27:00 Efraín [facility] Diastolic (mm Hg) 2018-10-11 09:27:00 [facility] Temperature Oral (F) 2018-10-11 09:27:00 98.2 F [facility] [place] Respitory Rate 2018-10-11 09:27:00 [facility] Heart Rate 2018-10-11 09:27:00 [facility] [place] Respitory Rate 2018-10-11 05:07:00 [facility] Heart Rate 2018-10-11 05:07:00 [facility] Temperature Oral (F) 2018-10-11 05:07:00 98 F [facility] [place] Systolic (mm Hg) 2018-10-11 05:07:00 Efraín rial [facility] Diastolic (mm Hg) 2018-10-11 05:07:00 [facility] Weight 2018-10-11 01:12:00 [facility] Temperature Oral (F) 2018-10-11 01:12:00 98.6 F [facility] Heart Rate 2018-10-11 01:12:00 [facility] Respitory Rate 2018-10-11 01:12:00 [facility] [place] Systolic (mm Hg) 2018-10-11 01:12:00 Efraín rial [facility] Diastolic (mm Hg) 2018-10-11 01:12:00 [facility] [place] Temperature Oral (F) 2018-09-06 10:17:00 97.6 F [facility] Respitory Rate 2018-09-06 10:17:00 [facility] [place] Heart Rate 2018-09-06 10:17:00 [facility] [place] Systolic (mm Hg) 2018-09-06 10:17:00 Efraín rial [facility] Diastolic (mm Hg) 2018-09-06 10:17:00 [facility] [place] Respitory Rate 2018-09-06 06:28:00 [facility] Temperature Oral (F) 2018-09-06 06:28:00 98.2 F [facility] Heart Rate 2018-09-06 06:28:00 [facility] Systolic (mm Hg) 2018-09-06 06:28:00 Efraín rial [facility] Diastolic (mm Hg) 2018-09-06 06:28:00 [facility] Temperature Oral (F) 2018-09-06 06:16:00 98 F [facility] Height 2018-09-06 06:16:00 167.64 cm [facility] Heart Rate 2018-09-06 06:16:00 [facility] Respitory Rate 2018-09-06 06:16:00 [facility] Systolic (mm Hg) 2018-09-06 06:16:00 [facility] Diastolic (mm Hg) 2018-09-06 06:16:00 [facility] BMI Calculated 2018-09-06 06:16:00 [facility] Weight 2018-09-06 06:16:00 [facility] Systolic (mm Hg) 2018-08-30 17:44:00 [facility] Diastolic (mm Hg) 2018-08-30 17:44:00 [facility] [place] [facility] Temperature Oral (F) 2018-08-30 17:44:00 98.0 F [facility] Respitory Rate 2018-08-30 17:44:00 [facility] Heart Rate 2018-08-30 17:44:00 [facility] Heart Rate 2018-08-30 14:10:00 [facility] Rate 2018-08-30 14:10:00 [facility] Systolic (mm Hg) 2018-08-30 14:10:00 [facility] [place] Diastolic (mm Hg) 2018-08-30 14:10:00 [facility] Temperature Oral (F) 2018-08-30 14:10:00 98.2 F [facility] Respitory Rate 2018-08-30 10:04:00 [facility] [place] Systolic (mm Hg) 2018-08-30 10:04:00 [facility] [place] Diastolic (mm Hg) 2018-08-30 10:04:00 [facility] Heart Rate 2018-08-30 10:04:00 [facility] Temperature Oral (F) 2018-08-30 10:04:00 98.1 F [facility] Height 2018-08-24 22:13:00 167.64 cm [facility] Weight 2018-08-24 22:13:00 [facility] BMI Calculated 2018-08-24 22:13:00 [facility] BMI Calculated 2018-08-24 20:22:00 [facility] Weight 2018-08-24 20:22:00 [facility] Height 2018-08-24 20:22:00 165.1 cm [facility] Weight 2018-08-24 07:42:00 [facility] Temperature Oral (F) 2018-05-22 17:03:00 98.4 F [facility] Respitory Rate 2018-05-22 17:03:00 [facility] Heart Rate 2018-05-22 17:03:00 [facility] Systolic (mm Hg) 2018-05-22 17:03:00 [facility] Diastolic (mm Hg) 2018-05-22 17:03:00 [facility] [place] Respitory Rate 2018-05-22 13:14:00 [facility] Heart Rate 2018-05-22 13:14:00 [facility] Temperature Oral (F) 2018-05-22 13:14:00 98.3 F [facility] [place] Systolic (mm Hg) 2018-05-22 13:14:00 [facility] Diastolic (mm Hg) 2018-05-22 13:14:00 [facility] Systolic (mm Hg) 2018-05-22 11:16:00 [facility] [place] Diastolic (mm Hg) 2018-05-22 11:16:00 [facility] [place] Temperature Oral (F) 2018-05-22 11:16:00 98.2 F [facility] Heart Rate 2018-05-22 11:16:00 [facility] Respitory Rate 2018-05-22 11:16:00 [facility] Weight 2018-05-17 08:15:00 [facility] BMI Calculated 2018-05-17 08:15:00 [facility] [place] Height 2018-05-17 08:15:00 167.64 cm [facility] Weight 2018-05-17 03:51:00 [facility] Temperature Oral (F) 2018-01-13 02:51:00 97.5 F [facility] Respitory Rate 2018-01-13 02:51:00 [facility] Systolic (mm Hg) 2018-01-13 02:51:00 [facility] [place] Diastolic (mm Hg) 2018-01-13 02:51:00 [facility] [place] Heart Rate 2018-01-13 02:51:00 [facility] Height 2018-01-12 21:15:00 167.64 cm [facility] BMI Calculated 2018-01-12 21:15:00 [facility] [place] Weight 2018-01-12 21:15:00 [facility] Heart Rate 2018-01-12 21:15:00 [facility] Systolic (mm Hg) 2018-01-12 21:15:00 [facility] [place] Diastolic (mm Hg) 2018-01-12 21:15:00 [facility] [place] Temperature Oral (F) 2018-01-12 21:15:00 98.8 F [facility] Respitory Rate 2018-01-12 21:15:00 [facility] Heart Rate 2016-12-31 16:21:00 [facility] [place] Systolic (mm Hg) 2016-12-31 16:21:00 [facility] [place] Diastolic (mm Hg) 2016-12-31 16:21:00 [facility] Respitory Rate 2016-12-31 15:59:00 [facility] [place] Heart Rate 2016-12-31 15:59:00 [facility] Temperature Oral (F) 2016-12-31 15:59:00 98.4 F [facility] Systolic (mm Hg) 2016-12-31 15:59:00 [facility] [place] Diastolic (mm Hg) 2016-12-31 15:59:00 [facility] [place] Systolic (mm Hg) 2016-12-31 11:56:00 [facility] [place] Diastolic (mm Hg) 2016-12-31 11:56:00 [facility] [place] Respitory Rate 2016-12-31 11:56:00 [facility] [place] Temperature Oral (F) 2016-12-31 11:56:00 98.5 F [facility] Heart Rate 2016-12-31 11:56:00 [facility] Weight 2016-12-31 11:38:00 [facility] Respitory Rate 2016-12-31 11:03:00 [facility] [place] Temperature Oral (F) 2016-12-31 11:03:00 98 F [facility] BMI Calculated 2016-12-31 04:03:00 [facility] [place] Height 2016-12-31 04:03:00 167.64 cm [facility] Weight 2016-12-31 04:03:00 [facility] Systolic (mm Hg) 2016-12-26 00:49:00 [facility] Diastolic (mm Hg) 2016-12-26 00:49:00 [facility] [place] Respitory Rate 2016-12-26 00:49:00 [facility] Heart Rate 2016-12-26 00:49:00 [facility] Temperature Oral (F) 2016-12-26 00:49:00 98 F [facility] Systolic (mm Hg) 2016-12-26 00:01:00 [facility] [place] Diastolic (mm Hg) 2016-12-26 00:01:00 [facility] [place] Respitory Rate 2016-12-26 00:01:00 [facility] Heart Rate 2016-12-26 00:01:00 [facility] Temperature Oral (F) 2016-12-26 00:01:00 98 F [facility] Weight 2016-12-25 23:55:00 [facility] BMI Calculated 2016-12-25 23:55:00 [facility] Height 2016-12-25 23:55:00 167.64 cm [facility] Systolic (mm Hg) 2016-12-25 22:45:00 [facility] [place] Diastolic (mm Hg) 2016-12-25 22:45:00 [facility] Respitory Rate 2016-12-25 22:45:00 [facility] Height 2016-12-25 19:18:00 167.64 cm [facility] BMI Calculated 2016-12-25 19:18:00 [facility] [place] Weight 2016-12-25 19:18:00 [facility] Temperature Oral (F) 2016-12-25 19:18:00 98.2 F [facility] Heart Rate 2016-12-25 19:18:00 [facility] Systolic (mm Hg) 2016-07-20 04:46:00 [facility] [place] Diastolic (mm Hg) 2016-07-20 04:46:00 [facility] Heart Rate 2016-07-20 04:46:00 [facility] Respitory Rate 2016-07-20 04:46:00 [facility] [place] Temperature Oral (F) 2016-07-20 04:46:00 98.3 F [facility] Weight 2016-07-20 01:24:00 [facility] BMI Calculated 2016-07-20 01:24:00 [facility] Height 2016-07-20 01:24:00 167.64 cm [facility] Temperature Oral (F) 2016-07-20 01:24:00 98.4 F [facility] Systolic (mm Hg) 2016-07-20 01:24:00 [facility] Diastolic (mm Hg) 2016-07-20 01:24:00 [facility] [place] Heart Rate 2016-07-20 01:24:00 [facility] Respitory Rate 2016-07-20 01:24:00 [facility] Systolic (mm Hg) 2016-04-23 08:04:00 [facility] Diastolic (mm Hg) 2016-04-23 08:04:00 [facility] Respitory Rate 2016-04-23 08:04:00 [facility] Heart Rate 2016-04-23 08:04:00 [facility] Temperature Oral (F) 2016-04-23 08:04:00 97.6 F [facility] Height 2016-04-23 05:01:00 157.48 cm [facility] Systolic (mm Hg) 2016-04-23 05:01:00 [facility] [place] Diastolic (mm Hg) 2016-04-23 05:01:00 [facility] Heart Rate 2016-04-23 05:01:00 [facility] Respitory Rate 2016-04-23 05:01:00 [facility] [place] Temperature Oral (F) 2016-04-23 05:01:00 98.2 F [facility] Weight 2016-04-23 05:01:00 [facility] BMI Calculated 2016-04-23 05:01:00 [facility] Systolic (mm Hg) 2016-04-16 08:51:00 [facility] Diastolic (mm Hg) 2016-04-16 08:51:00 [facility] [place] Respitory Rate 2016-04-16 08:51:00 [facility] Heart Rate 2016-04-16 08:51:00 [facility] Temperature Oral (F) 2016-04-16 08:51:00 98.2 F [facility] Respitory Rate 2016-04-16 04:25:00 [facility] Heart Rate 2016-04-16 04:25:00 [facility] Systolic (mm Hg) 2016-04-16 04:25:00 [facility] [place] Diastolic (mm Hg) 2016-04-16 04:25:00 [facility] Height 2016-04-16 04:25:00 167.64 cm [facility] Temperature Oral (F) 2016-04-16 04:25:00 98.7 F [facility] BMI Calculated 2016-04-16 04:25:00 [facility] Weight 2016-04-16 04:25:00 [facility] Systolic (mm Hg) 2016-04-14 08:30:00 [facility] [place] Diastolic (mm Hg) 2016-04-14 08:30:00 [facility] Heart Rate 2016-04-14 08:30:00 [facility] Temperature Oral (F) 2016-04-14 08:30:00 98 F [facility] Systolic (mm Hg) 2016-04-14 07:30:00 [facility] Diastolic (mm Hg) 2016-04-14 07:30:00 [facility] Respitory Rate 2016-04-14 07:30:00 [facility] Heart Rate 2016-04-14 07:30:00 [facility] Temperature Oral (F) 2016-04-14 07:30:00 98 F [facility] Systolic (mm Hg) 2016-04-14 06:30:00 [facility] Diastolic (mm Hg) 2016-04-14 06:30:00 [facility] Respitory Rate 2016-04-14 06:30:00 [facility] Heart Rate 2016-04-14 06:30:00 [facility] Temperature Oral (F) 2016-04-14 06:30:00 98.2 F [facility] BMI Calculated 2016-04-14 05:39:00 [facility] Weight 2016-04-14 05:39:00 [facility] Height 2016-04-14 05:39:00 167.64 cm [facility] Respitory Rate 2016-04-14 05:39:00 [facility] [place] Systolic (mm Hg) 2016-02-24 07:38:00 E[facility] [place] Diastolic (mm Hg) 2016-02-24 07:38:00 [facility] [place] Heart Rate 2016-02-24 07:38:00 [facility] Respitory Rate 2016-02-24 07:38:00 [facility] Heart Rate 2016-02-24 03:24:00 [facility] Respitory Rate 2016-02-24 03:24:00 [facility] BMI Calculated 2016-02-24 03:24:00 [facility] [place] Height 2016-02-24 03:24:00 167.64 cm [facility] Weight 2016-02-24 03:24:00 [facility] Temperature Oral (F) 2016-02-24 03:24:00 98.1 F [facility] Systolic (mm Hg) 2016-02-24 03:24:00 [facility] Diastolic (mm Hg) 2016-02-24 03:24:00 [facility] [place] Temperature Oral (F) 2016-01-17 05:32:00 98.1 F [facility] Heart Rate 2016-01-17 05:32:00 [facility] Respitory Rate 2016-01-17 05:32:00 [facility] [place] Systolic (mm Hg) 2016-01-17 05:32:00 [facility] Diastolic (mm Hg) 2016-01-17 05:32:00 [facility] [place] Heart Rate 2016-01-17 04:06:00 [facility] Systolic (mm Hg) 2016-01-17 04:06:00 [facility] Diastolic (mm Hg) 2016-01-17 04:06:00 [facility] Temperature Oral (F) 2016-01-17 04:06:00 98.0 F [facility] Respitory Rate 2016-01-17 04:06:00 [facility] Heart Rate 2016-01-17 01:48:00 [facility] Respitory Rate 2016-01-17 01:48:00 [facility] [place] Systolic (mm Hg) 2016-01-17 01:48:00 E[facility] [place] Diastolic (mm Hg) 2016-01-17 01:48:00 [facility] Weight 2016-01-17 01:48:00 [facility] Height 2016-01-17 01:48:00 167.64 cm [facility] BMI Calculated 2016-01-17 01:48:00 [facility] Temperature Oral (F) 2016-01-17 01:48:00 98 F [facility] Respitory Rate 2015-10-13 11:44:00 [facility] Heart Rate 2015-10-13 11:44:00 [facility] Temperature Oral (F) 2015-10-13 11:44:00 98.2 F [facility] Systolic (mm Hg) 2015-10-13 11:44:00 E[facility] Diastolic (mm Hg) 2015-10-13 11:44:00 [facility] [place] Height 2015-10-13 05:34:00 167.64 cm [facility] BMI Calculated 2015-10-13 05:34:00 [facility] Weight 2015-10-13 05:34:00 [facility] Heart Rate 2015-10-13 05:34:00 [facility] Respitory Rate 2015-10-13 05:34:00 [facility] [place] Temperature Oral (F) 2015-10-13 05:34:00 98.2 F [facility] Systolic (mm Hg) 2015-10-13 05:34:00 [facility] Diastolic (mm Hg) 2015-10-13 05:34:00 [facility] [place] Respitory Rate 2015-07-04 08:49:00 [facility] [place] Heart Rate 2015-07-04 08:49:00 [facility] Temperature Oral (F) 2015-07-04 08:49:00 98.0 F [facility] Systolic (mm Hg) 2015-07-04 08:49:00 [facility] Diastolic (mm Hg) 2015-07-04 08:49:00 [facility] Respitory Rate 2015-07-04 07:00:00 [facility] Heart Rate 2015-07-04 07:00:00 [facility] Temperature Oral (F) 2015-07-04 07:00:00 98.4 F [facility] Systolic (mm Hg) 2015-07-04 07:00:00 [facility] Diastolic (mm Hg) 2015-07-04 07:00:00 [facility] Heart Rate 2015-07-04 05:28:00 [facility] Respitory Rate 2015-07-04 05:28:00 [facility] [place] Temperature Oral (F) 2015-07-04 05:28:00 98.2 F [facility] Systolic (mm Hg) 2015-07-04 05:28:00 E[facility] [place] Diastolic (mm Hg) 2015-07-04 05:28:00 [facility] Weight 2015-07-04 05:28:00 [facility] Systolic (mm Hg) 2015-05-17 11:05:00 E[facility] [place] Diastolic (mm Hg) 2015-05-17 11:05:00 [facility] Temperature Oral (F) 2015-05-17 11:05:00 98.2 F [facility] Heart Rate 2015-05-17 11:05:00 [facility] Heart Rate 2015-05-17 10:05:00 [facility] Systolic (mm Hg) 2015-05-17 10:05:00 [facility] [place] Diastolic (mm Hg) 2015-05-17 10:05:00 [facility] Systolic (mm Hg) 2015-05-17 09:05:00 [facility] [place] Diastolic (mm Hg) 2015-05-17 09:05:00 [facility] Heart Rate 2015-05-17 09:05:00 [facility] Respitory Rate 2015-05-17 08:05:00 [facility] Temperature Oral (F) 2015-05-17 08:05:00 99.6 F [facility] Temperature Oral (F) 2015-05-17 06:17:00 99.6 F [facility] Height 2015-05-17 04:59:00 167.64 cm [facility] BMI Calculated 2015-05-17 04:59:00 [facility] [place] Weight 2015-05-17 04:59:00 [facility] Respitory Rate 2015-05-17 04:59:00 [facility] Temperature Oral (F) 2015-05-15 13:01:00 98.9 F [facility] Heart Rate 2015-05-15 13:01:00 [facility] Respitory Rate 2015-05-15 13:01:00 [facility] Systolic (mm Hg) 2015-05-15 13:01:00 [facility] [place] Diastolic (mm Hg) 2015-05-15 13:01:00 [facility] [place] Heart Rate 2015-05-15 07:46:00 [facility] Respitory Rate 2015-05-15 07:46:00 [facility] [place] Systolic (mm Hg) 2015-05-15 07:46:00 E[facility] Diastolic (mm Hg) 2015-05-15 07:46:00 [facility] [place] Temperature Oral (F) 2015-05-15 07:46:00 98.1 F [facility] Height 2015-05-15 03:56:00 167.64 cm [facility] BMI Calculated 2015-05-15 03:56:00 [facility] [place] Weight 2015-05-15 03:56:00 [facility] Temperature Oral (F) 2015-05-15 03:56:00 98.3 F [facility] Systolic (mm Hg) 2015-05-15 03:56:00 E[facility] [place] Diastolic (mm Hg) 2015-05-15 03:56:00 [facility] Respitory Rate 2015-05-15 03:56:00 [facility] Heart Rate 2015-05-15 03:56:00 [facility] Respitory Rate 2015-02-14 09:30:00 [facility] [place] Systolic (mm Hg) 2015-02-14 09:30:00 [facility] Diastolic (mm Hg) 2015-02-14 09:30:00 [facility] Heart Rate 2015-02-14 09:30:00 [facility] Heart Rate 2015-02-14 04:52:00 [facility] Temperature Oral (F) 2015-02-14 04:52:00 98.3 F [facility] Respitory Rate 2015-02-14 04:52:00 [facility] [place] Systolic (mm Hg) 2015-02-14 04:52:00 [facility] [place] Diastolic (mm Hg) 2015-02-14 04:52:00 [facility] [place] [facility] BMI Calculated 2015-02-14 01:00:00 [facility] [place] Weight 2015-02-14 01:00:00 [facility] Temperature Oral (F) 2015-02-14 01:00:00 98.6 F [facility] Height 2015-02-14 01:00:00 167.64 cm [facility] Heart Rate 2015-02-14 01:00:00 [facility] Respitory Rate 2015-02-14 01:00:00 [facility] [place] Systolic (mm Hg) 2015-02-14 01:00:00 E[facility] Diastolic (mm Hg) 2015-02-14 01:00:00 [facility] Diastolic (mm Hg) 2014-09-30 07:00:00 [facility] [place] Systolic (mm Hg) 2014-09-30 07:00:00 [facility] Temperature Oral (F) 2014-09-30 07:00:00 98.3 F [facility] Respitory Rate 2014-09-30 07:00:00 [facility] [place] Heart Rate 2014-09-30 07:00:00 [facility] Temperature Oral (F) 2014-09-30 04:47:00 98.2 F [facility] Diastolic (mm Hg) 2014-09-30 04:47:00 [facility] Heart Rate 2014-09-30 04:47:00 [facility] Systolic (mm Hg) 2014-09-30 04:47:00 E[facility] Respitory Rate 2014-09-30 04:47:00 [facility] [place] Respitory Rate 2014-09-30 03:54:00 [facility] Heart Rate 2014-09-30 03:54:00 [facility] Diastolic (mm Hg) 2014-09-30 03:54:00 [facility] Temperature Oral (F) 2014-09-30 03:54:00 98.4 F [facility] Height 2014-09-30 03:54:00 167.64 cm [facility] Systolic (mm Hg) 2014-09-30 03:54:00 [facility] BMI Calculated 2014-09-30 03:54:00 [facility] [place] Weight 2014-09-30 03:54:00 [facility] Procedures Procedure Date / Time Performed Performing Clinician [facility] e Computed tomography of abdomen and pelvis with contrast 00:00:00 [facility] LAPAROSCOPY APPENDECTOMY 2020-04-13 00:00:00 [facility] PERITONEAL LAVAGE 2020-04-13 00:00:00 [facility] Computed tomography of abdomen and pelvis with contrast 00:00:00 [facility] Complete non-obstetrical ultrasound of pelvis 2020-04-12 00:00:0 0 [facility] US transvaginal 2020-04-12 00:00:00 [facility] Limited Doppler ultrasound of vessels of pelvis 2020-04-12 00:00 :00 [facility] Incision AND drainage 2018-05-17 05:00:00 [facility] Encounters Start Date/Time End Date/Time Encounter Type Admission Type Attendi [facility] Care Department Encounter ID Source 2020-03-23 06:02:00 Inpatient U [facility] MED [id number] [facility] 2020-04-17 20:18:00 2020-04-17 20:18:00 Admitted Inpatient 1 PETR MERAZ [facility] [id number] [facility] 2020-04-13 00:22:00 2020-04-14 20:29:00 Discharged Inpatient (obs) 1 ZOLTAN MCKNIGHT [facility] [id number] I [facility] 2020-04-04 00:00:00 2020-04-04 00:00:00 Telephone Grey Schultz [facility] [id number] 2020-03-23 06:02:00 2020-03-26 15:12:00 Outpatient Zoya Carbajal chi [facility] [id number] 2020-02-23 07:36:59 2020-02-23 08:06:59 Office Visit Aaliyah Stewart [facility] [id number] 2020-02-06 00:00:00 2020-02-06 00:00:00 Patient Secure Msg Grey Schultz [facility] [id number] 2019-11-02 03:06:00 2019-11-04 13:40:00 Outpatient Hardik Coats [facility] [id number] 2019-11-02 02:06:00 2019-11-02 23:59:[address] charisma Frias [facility]SE [id number] 2019-11-02 03:06:00 2019-11-02 03:06:00 Outpatient MHSE MED [id number] [facility] 2019-11-02 02:06:00 2019-11-02 02:06:00 Outpatient MHSE MHSE [id number] [facility] 2019-07-29 17:32:00 2019-07-29 19:13:00 Departed Emergency Room 1 GLYNN BHATT [facility] [id number] I [facility] 2019-06-05 14:58:00 2019-06-05 16:13:00 Departed Emergency Room [facility] [id number] [facility] 2019-05-24 23:55:11 2019-05-25 04:36:00 Outpatient Byron Hogan Darshan MHSE MHSE [id number] 2019-05-24 23:55:00 2019-05-24 23:55:00 Emergency E MHSE MHSE [id number] [facility] 2019-05-16 13:43:54 2019-05-16 17:46:00 Outpatient Eliot Wakefield [facility] [id number] 2019-05-16 13:43:00 2019-05-16 13:43:00 Emergency E [facility]BL [facility]BL [id number] [facility] 2019-04-03 15:26:24 2019-04-03 20:07:00 Outpatient Eliot Wakefield [facility] [id number] 2019-04-03 15:26:00 2019-04-03 15:26:00 Emergency E [facility]BL [facility]BL [id number] [facility] 2019-03-23 11:40:00 2019-03-24 20:01:00 Outpatient Jose L Cunningham [facility] [id number] 2019-03-23 14:49:00 2019-03-23 14:49:00 Outpatient E [facility] MED [id number] [facility] 2019-02-28 19:39:04 2019-03-07 20:00:00 Outpatient Carla Campos on [facility]PL [facility]PL [id number] 2019-03-02 11:50:00 2019-02-28 23:03:00 Inpatient E [facility] MED [id number] [facility] 2019-01-27 01:47:07 2019-01-31 16:50:00 Outpatient Jennifer White MHSE MHSE [id number] 2019-01-27 17:00:00 2019-01-27 04:15:00 Inpatient E MHSE MED [id number] [facility] 2018-12-12 20:11:18 2018-12-12 22:30:00 Outpatient Herb Martin [facility] [id number] 2018-12-12 20:11:00 2018-12-12 20:11:00 Emergency E [facility]BL [facility]BL [id number] [facility] 2018-12-03 15:44:00 2018-12-09 18:39:00 Outpatient A Terrence ely [facility]PL [id number] 2018-12-03 15:44:00 2018-12-09 18:39:00 Outpatient A Terrence ely [facility] [id number] 2018-12-05 11:17:00 2018-12-03 20:46:00 Inpatient E BL [facility] [address] [place] [address] 2018-10-11 05:02:00 2018-10-12 15:33:00 Outpatient Lexx Sauer MHSE MHSE [id number] 2018-10-10 18:53:00 2018-10-11 04:00:00 Outpatient Temitope Cadeniyaciara [facility] [id number] 2018-09-06 00:08:00 2018-09-06 04:19:00 Outpatient F dottieRafy wingtres Garibay MHSE MHSE [id number] 2018-09-06 00:08:00 2018-09-06 04:19:00 Outpatient F Rafy appletres Tannerpernellrupesh MHSE MHSE [id number] 2018-08-24 01:36:00 2018-08-30 14:40:00 Outpatient Nayeli Hull isara Garza [facility]PL [id number] 2018-06-24 13:37:00 2018-06-24 23:59:00 Outpatient Tracie Stahl MHOIP MHOIP [id number] 2018-05-16 22:31:00 2018-05-22 13:15:00 Outpatient Nayeli Hull isara Garza [facility] [id number] 2018-04-30 13:40:00 2018-04-30 16:17:00 Departed Emergency Room [facility] [id number] [facility] 2018-02-07 14:46:00 2018-02-07 19:52:00 Departed Emergency Room 1 FELICIA DELGADO [facility] [id number] [facility] 2018-02-04 22:15:00 2018-02-05 02:06:00 Departed Emergency Room [id number] [facility] 2018-01-12 16:14:00 2018-01-12 22:22:00 Outpatient Betty Navarro gabo MHSE MHSE [id number] 2016-12-30 22:54:00 2016-12-31 13:53:00 Outpatient [employer] Alec Everett MHSE MHSE [id number] 2016-12-25 14:16:00 2016-12-25 20:08:00 Outpatient Daniele Weaver MHSE MHSE [id number] 2016-07-19 19:18:00 2016-07-19 22:50:00 Outpatient Jama Khalil MHSE MHSE [id number] 2016-04-22 23:58:00 2016-04-23 03:06:00 Outpatient LupeRosalind aguilar MHSE MHSE [id number] 2016-04-15 23:24:00 2016-04-16 03:54:00 Outpatient Jeannie Blair V inh MHSE MHSE [id number] 2016-04-14 00:33:00 2016-04-14 03:59:00 Outpatient Cristino Porter MHSE MHSE [id number] 2016-02-23 22:20:00 2016-02-24 02:54:00 Outpatient P Wilmar lewis MHSE MHSE [id number] 2016-01-16 20:36:00 2016-01-17 00:34:00 Outpatient Salvador Rodríguez [facility]PL [id number] 2015-10-12 23:21:00 2015-10-13 05:47:00 Outpatient Rosy Diaz MHSE MHSE [id number] 2015-07-03 23:24:00 2015-07-04 03:54:00 Outpatient Michelle Finley MHSE MHSE [id number] 2015-05-16 23:53:00 2015-05-17 07:05:00 Outpatient Rosy Diaz MHSE MHSE [id number] 2015-05-14 22:48:00 2015-05-15 08:01:00 Outpatient Temitope Cade [facility] [id number] 2015-02-13 19:35:00 2015-02-14 05:39:00 Outpatient Zoltan Prince [facility] [id number] 2014-09-29 21:23:00 2014-09-30 02:31:00 Outpatient MikhaildevanteMario milian [facility] [id number] Results Test Description Test Time Test Comments Results Result Comments Source Blood leukocytes automated count (number/volume) 2020-04-20 09:05:00 Test Item White Blood Count (test code = 6690-2) 10.37 [facility]8 [facility]2020-04-20 09:05:00* Test Item Value Reference Range Interpretation Comments Red Blood Count (test code = 789-8) 3.54 3.6-5.1 [facility] (moles/volume)2020-04-20 09:05:00* Test Item Value Reference Range Interpretation Comments Hemoglobin (test code = 90245-2) 10.2 12.0-16.0 [facility] hemat[facility] (volume fraction)2020-04-20 09:05:00* Test Item Value Reference Range Interpretation Comments Hematocrit (test code = 4544-3) 31.9 34.2-44.1 [facility] mean corpuscular [id number] 09:05:00* Test Item Value Reference Range Interpretation Comments Mean Corpuscular Volume (test code = 787-2) 90.1 81-99 [facility] mean corpuscular hemoglobin (mass per erythrocyte)2020-04-20 09:05:00* Test Item Value Reference Range Interpretation Comments Mean Corpuscular Hemoglobin (test code = 785-6) 28.8 28-32 [facility] mean corpuscular hemoglobin concentration measurement (mass/volume)2020-04-20 09:05:00* Test Item Value Reference Range Interpretation Comments Mean Corpuscular Hemoglobin Concent (test code = 786-4) 32.0 31-35 [facility] [id number] 09:05:00* Test Item Value Reference Range Interpretation Comments Red Cell Distribution Width (test code = 02186-7) 13.2 11.7 -14.4 [facility] platelet count (count/volume)2020-04-20 09:05:00* Test Item Value Reference Range Interpretation Comments Platelet Count (test code = 777-3) 245 140-360 [facility] segmented neutrophil count as percentage of total dmolfsbmom9908-35-29 09:05:00* Test Item Value Reference Range Interpretation Comments Neutrophils (%) (Auto) (test code = 74093-3) 58.2 38.7-80.0 [facility] CenterAutomated blood lymphocyte count as percentage ot total daofhnfwuz2949-00-19 09:05:00* Test Item Value Reference Range Interpretation Comments Lymphocytes (%) (Auto) (test code = 736-9) 27.9 18.0-39.1 [facility] CenterAutomated blood monocyte count as percentage of total sqzhbvnigl6773-17-02 09:05:00* Test Item Value Reference Range Interpretation Comments Monocytes (%) (Auto) (test code = 5905-5) 10.1 4.4-11.3 [facility] CenterAutomated blood eosinophil count as percentage of total xhkoozywjb3874-11-34 09:05:00* Test Item Value Reference Range Interpretation Comments Eosinophils (%) (Auto) (test code = 713-8) 2.7 0.0-6.0 [facility] CenterAutomated blood basophil count as percentage of total ameeguuxvi4904-76-82 09:05:00* Test Item Value Reference Range Interpretation Comments Basophils (%) (Auto) (test code = 706-2) 0.6 0.0-1.0 [facility] CenterFluoroscopic procedure less than one hour bjbchfsz1597-53-97 09:05:00* Test Item Value Reference Range Interpretation Comments IM GRANULOCYTES % (test code = IM GRANULOCYTES %) 0.5 0.0- 1.0 [facility] CenterAutomated blood neutrophil count 2020-04-20 09:05:00* Test Item Value Reference Range Interpretation Comments Neutrophils # (Auto) (test code = 751-8) 6.0 2.1-6.9 [facility] CenterBlood lymphocytes count (number/volume) 2020-04-20 09:05:00* Test Item Value Reference Range Interpretation Comments Lymphocytes # (Auto) (test code = 23487-1) 2.9 1.0-3.2 [facility] CenterBlood monocytes automated count (number/volume)2020-04-20 09:05:00* Test Item Value Reference Range Interpretation Comments Monocytes # (Auto) (test code = 742-7) 1.1 0.2-0.8 [facility] CenterAutomated blood eosinophil count 2020-04-20 09:05:00* Test Item Value Reference Range Interpretation Comments Eosinophils # (Auto) (test code = 711-2) 0.3 0.0-0.4 [facility] CenterAutomated blood basophil count (count/volume)2020-04-20 09:05:00* Test Item Value Reference Range Interpretation Comments Basophils # (Auto) (test code = 704-7) 0.1 0.0-0.1 [facility] CenterFluoroscopic procedure less than one hour jefjmaiv8675-79-54 09:05:00* Test Item Value Reference Range Interpretation Comments Absolute Immature Granulocyte (auto (tristan t code = Absolute Immature Granulocyte (auto) 0.05 0-0.1 [facility] Hospitalerum or plasma sodium measurement (moles/volume)2020-04-20 09:05:00* Test Item Value Reference Range Interpretation Comments Sodium Level (test code = 2951-2) 140 136-145 [facility] Hospitalerum or plasma potassium measurement (moles/volume)2020-04-20 09:05:00* Test Item Value Reference Range Interpretation Comments Potassium Level (test code = 2823-3) 4.0 3.5-5.1 [facility] Hospitalerum or plasma chloride measurement (moles/volume)2020-04-20 09:05:00* Test Item Value Reference Range Interpretation Comments Chloride Level (test code = 2075-0) 107 98-107 [facility] Hospitalerum or plasma carbon dioxide, total measurement (moles/volume)2020-04-20 09:05:00* Test Item Value Reference Range Interpretation Comments Carbon Dioxide Level (test code = 2028-9) 24 22-29 [facility] Hospitalerum or plasma anion tmz9156-93-13 09:05:00* Test Item Value Reference Range Interpretation Comments Anion Gap (test code = 60580-1) 13.0 8-16 [facility] Hospitalerum or plasma urea nitrogen measurement (mass/volume)2020-04-20 09:05:00* Test Item Value Reference Range Interpretation Comments Blood Urea Nitrogen (test code = 3094-0) 7 7-26 [facility] Hospitalerum or plasma creatinine measurement (mass/volume)2020-04-20 09:05:00* Test Item Value Reference Range Interpretation Comments Creatinine (test code = 2160-0) 0.65 0.57-1.11 [facility] Hospitalerum or plasma urea nitrogen/creatinine mass fiqwu7988-64-50 09:05:00* Test Item Value Reference Range Interpretation Comments BUN/Creatinine Ratio (test code = 3097-3) 11 6-25 [facility] CenterEstimated glomerular filtration rate (GFR) iywxaqdoeprsr7154-14-85 09:05:00* Test Item Value Reference Range Interpretation Comments Estimat Glomerular Filtration Rate (test code = 500801923) > 60 >60 Ranges were taken from the National Kidney Disease Education Program and the [facility] literature.Reference ranges:60 or greater: Tmkubf44-96 ( for 3 consecutive months): Chronic kidney disease 15 or less: Kidney failureBrooke Army Medical CenterGlucose skiuqtjuchy6680-11-75 09:05:00* Test Item Value Reference Range Interpretation Comments Glucose Level (test code = ALR7172) 96 74-118 [facility] Hospitalerum or plasma calcium measurement (mass/volume)2020-04-20 09:05:00* Test Item Value Reference Range Interpretation Comments Calcium Level (test code = 06360-0) 7.8 8.4-10.2 [facility]CHE[facility] ZXIUDYFPC5216-71-73 15:19:00 [facility] [address] [address] Patient Name: COLLEEN JOHNSON MR #: [id number] : 1985 Age/Sex: 34/F Req #: [id number] Adm Physician: PETR MERAZ MD Ordered by: AKHIL MOSCOSO MD Report #: [id number] Location: MED/SURG3 Room/Bed: [facility] Procedure: [id number] DX/CHEST XR AY LINE PLACEMENT Exam Date: 04/19/20 Exam Time: 140 0 REPORT STATUS: Signed Chest, 1 view, 04/19/2020. History: PICC placement. Comparison: None sayra ilable. Findings: The cardiomediastinal silhouette and pulmonary vasculatur e are within normal limits for a portable exam. There is no focal consolidatio n or pleural effusion. Left upper extremity PICC is present terminating near t he cavoatrial junction. There are no acute osseous or soft tissue abnormalitie s. Impression: No acute cardiopulmonary abnormality. PICC is in adequat e position. Signed by: Rohit Bingham on 04/19/2020 3:20 PM Dictated By : ROHIT BINGHAM MD 152 Transcribed By: LILIA on 04/19/20 1520 COPY TO: AKHIL MOSCOSO MD Serum or plasma trough vancomycin level at trough (mass/volume)2020-04-19 09:23:00* Test Item Value Reference Range Interpretation Comments Vancomycin Level Trough (test code = 4092-3) 24.1 5.0-10.0 Results repeated and called to sheila kimball at 0957 on 04/19/20 by Melissa Holman . Read back and verified.[facility] CenterBacteria identification in wound by ztbmiia2628-79-09 15:05:00* Test Item Value Reference Range Interpretation Comments Wound Culture (test code = 6462-6) STAPHYLOCOCCUS AUREUS [facility] CenterUrine human chorionic gonadotropin (hCG) fftrajycx4575-36-88 10:00:00* Test Item Value Reference Range Interpretation Comments Urine Test (test code = 2106-3) NEGATIVE NEGATIVE [facility]erum or plasma total bilirubin measurement (mass/volume)2020-04-18 07:10:00* Test Item Value Reference Range Interpretation Comments Total Bilirubin (test code = 1975-2) 1.1 0.2-1.2 [facility] CenterFluoroscopic procedure less than one hour pvcjfcsa9249-73-41 07:10:00* Test Item Value Reference Range Interpretation Comments Aspartate Amino Transf (AST/SGOT) (test code = Aspartate Amino Transf (AST/SGOT)) 10 5-34 [facility] Hospitalerum or plasma alanine aminotransferase measurement (enzymatic activity/volume)2020-04-18 07:10:00* Test Item Value Reference Range Interpretation Comments Alanine Aminotransferase (ALT/SGPT) (test code = 1742-6) 19 0-55 [facility] Hospitalerum or plasma protein measurement (mass/volume)2020-04-18 07:10:00* Test Item Value Reference Range Interpretation Comments Total Protein (test code = 2885-2) 6.1 6.5-8.1 [facility] Hospitalerum or plasma albumin measurement (mass/volume)2020-04-18 07:10:00* Test Item Value Reference Range Interpretation Comments Albumin (test code = 1751-7) 3.3 3.5-5.0 [facility] CenterPlasma globulin measurement (mass/volume) 2020-04-18 07:10:00* Test Item Value Reference Range Interpretation Comments Globulin (test code = 36027-9) 2.8 2.3-3.5 [facility] Hospitalerum or plasma albumin/globulin mass uklyk4155-66-94 07:10:00* Test Item Value Reference Range Interpretation Comments Albumin/Globulin Ratio (test code = 1759-0) 1.2 0.8-2.0 [facility] Hospitalerum or plasma alkaline phosphatase measurement (enzymatic activity/volume)2020-04-18 07:10:00* Test Item Value Reference Range Interpretation Comments Alkaline Phosphatase (test code = 6768-6) 68 40-150 [facility] CenterFluoroscopic procedure less than one hour iwvycfce3541-35-68 20:28:00* Test Item Value Reference Range Interpretation Comments Coronavirus (PCR) (test code = Coronavirus (PCR)) NOT DETECTED NOTD ETECTED testhub Aptima SARS-CoV-2 assay is a nucleic amplification test intended for the qualitative detection of RNA from SARS-CoV-2 from nasopharyngeal (NEWS DEPARTMENT INTERN) specimens . It is used under Emergency [...] for reprat testing oc clinically indicated.Tesing performed by:[facility] Laboratory [address] [place] [address] [id number], Zoltan Ponce MD, PhD [facility] CenterCT ABDOMEN/PELVIS [id number] 18:48:00 [facility] [address] [place] [address] Patient Name: COLLEEN JOHNSON MR #: [id number] : 1985 Age/Sex: 34/F Req #: [id number] Adm Physician: Ordered by: DANIELLE REYES MD R eport #: [id number] Location: ER Room /Bed: Procedure: [id number] CT/CT ABDOME N/PELVIS W Exam Date: 04/17/20 Exam Time: 1800 REPORT STATUS: Signed EXAM: CT Abdome n and Pelvis WITH contrast INDICATION: RIGHT LOWER ABD WALL ABSCESS COMPAR DAWNA: Multiple prior CT abdomen and pelvis examinations most recent dated 04/12. TECHNIQUE: Abdomen and pelvis were scanned utilizing a multidetector he [facility] hospital[facility] scanner from the lung base to the pubic symphysis after administration o f IV contrast. Coronal and sagittal reformations were obtained. Routine protoc ol was performed. Scan was performed when during portal venous phase. IV CONTRAST: 100 mL of Isovue 370 ORAL CONTRAST: None COMPLICATIONS: None RADIATION DOSE: Total DLP: 921.69 mGy*cm Estimated effective dose: (DLP x 0.015 x size factor) mSv CTDIvol has be en reviewed. It is below the limits set by the Radiation Protocol Committee (R PC). Dose modulation, iterative reconstruction, and/or weight based adjus tment of the mA/kV was utilized to reduce the radiation dose to as low as reas onably achievable. FINDINGS: LINES and TUBES: None. LOWER THOR AX: Unremarkable HEPATOBILIARY: No focal hepatic lesions. No biliary ductal dilation. GALLBLADDER: There are cholecystectomy clips. SPLEE N: No splenomegaly. PANCREAS: No focal masses or ductal dilatation. ADRENALS: No adrenal nodules KIDNEYS/URETERS: Kidneys enhance symmetri kalyan. No hydronephrosis. No cystic or solid mass lesions. No stones. G I TRACT: No abnormal distention, wall thickening, or evidence of bowel obstruc tion. Appendix is normal. PELVIC ORGANS/BLADDER: Unremarkable. L YMPH NODES: No lymphadenopathy. VESSELS: Unremarkable. PERITONEUM / RE TROPERITONEUM: No free air or fluid. BONES: There are degenerative changes in the spine. SOFT TISSUES: There is marked interval increase in fat strand ing involving the right anterior abdominal wall associated with a small fat-co ntaining umbilical hernia. There is new focus of air seen (series 2, image 67) which could be infectious related or post procedural if there is history of r ecent procedure. There is also associated increased thickening of the right re ctus muscle likely inflammatory. IMPRESSION: Marked interval increa se in fat stranding involving the right anterior abdominal wall soft tissues a ssociated with a small fat-containing umbilical hernia compatible with celluli tis. There is associated new focus of air seen which could be infectious relat ed or post procedural if there is history of recent procedure. No definite abs cess or drainable collection. Signed by: Tobi Quintanilla MD on 04/17/2020 7:18 PM Dictated By: TOBI QUINTANILLA MD 17 Transcribed By: LILIA on 04/17/201917 COPY TO: DANIELLE REYES MD Fluoroscopic procedure less than one hour hxwlgwgx2368-93-25 18:05:00* Test Item Value Reference Range Interpretation Comments Lactic Acid Level (test code = Lactic Acid Level) 0.9 0.5- 2.0 [facility] CenterBlood alhojjl2239-95-46 17:58:00* Test Item Value Reference Range Interpretation Comments Blood Culture (test code = 89335349) NO GROWTH AFTER 72 HOURS [facility] leukocytes automated count (number/volume)2020-04-14 05:40:00* Test Item Value Reference Range Interpretation Comments White Blood Count (test code = 6690-2) 11.99 4.8-10.8 [facility] CenterBlgillette [facility] erythrocytes automated count (number/volume)2020-04-14 05:40:00* Test Item Value Reference Range Interpretation Comments Red Blood Count (test code = 789-8) 3.85 3.6-5.1 [facility] Aliceood hemoglobin measurement (moles/volume)2020-04-14 05:40:00* Test Item Value Reference Range Interpretation Comments Hemoglobin (test code = 36574-1) 10.9 12.0-16.0 [facility] CenterAutomated blood hematocrit (volume fraction)2020-04-14 05:40:00* Test Item Value Reference Range Interpretation Comments Hematocrit (test code = 4544-3) 34.7 34.2-44.1 [facility] CenterAutomated erythrocyte mean corpuscular apjscj2899-22-85 05:40:00* Test Item Value Reference Range Interpretation Comments Mean Corpuscular Volume (test code = 787-2) 90.1 81-99 [facility] CenterAutomated erythrocyte mean corpuscular hemoglobin (mass per erythrocyte)2020-04-14 05:40:00* Test Item Value Reference Range Interpretation Comments Mean Corpuscular Hemoglobin (test code = 785-6) 28.3 28-32 [facility] CenterAutomated erythrocyte mean corpuscular hemoglobin concentration measurement (mass/volume)2020-04-14 05:40:00* Test Item Value Reference Range Interpretation Comments Mean Corpuscular Hemoglobin Concent (test code = 786-4) 31.4 31-35 [facility] CenterRDW NeaYy-Xoe2377-01-29 05:40:00* Test Item Value Reference Range Interpretation Comments Red Cell Distribution Width (test code = 72844-4) 12.9 11.7 -14.4 [facility] CenterAutomated blood platelet count (count/volume)2020-04-14 05:40:00* Test Item Value Reference Range Interpretation Comments Platelet Count (test code = 777-3) 226 140-360 [facility] CenterAutomated blood segmented neutrophil count as percentage of total eblnaozfuw8959-81-71 05:40:00* Test Item Value Reference Range Interpretation Comments Neutrophils (%) (Auto) (test code = 67673-4) 79.2 38.7-80.0 [facility] CenterAutomated blood lymphocyte count as percentage ot total fqhuiyjnnv8683-37-54 05:40:00* Test Item Value Reference Range Interpretation Comments Lymphocytes (%) (Auto) (test code = 736-9) 13.0 18.0-39.1 [facility] CenterAutomated blood monocyte count as percentage of total vxjyqogngi9371-83-32 05:40:00* Test Item Value Reference Range Interpretation Comments Monocytes (%) (Auto) (test code = 5905-5) 7.0 4.4-11.3 [facility] CenterAutomated blood eosinophil count as percentage of total pghpqvsxgm4012-41-05 05:40:00* Test Item Value Reference Range Interpretation Comments Eosinophils (%) (Auto) (test code = 713-8) 0.1 0.0-6.0 [facility] CenterAutomated blood basophil count as percentage of total nawesubwsl7072-42-52 05:40:00* Test Item Value Reference Range Interpretation Comments Basophils (%) (Auto) (test code = 706-2) 0.3 0.0-1.0 [facility] CenterFluoroscopic procedure less than one hour jlspbaws9943-11-61 05:40:00* Test Item Value Reference Range Interpretation Comments IM GRANULOCYTES % (test code = IM GRANULOCYTES %) 0.4 0.0- 1.0 [facility] CenterAutomated blood neutrophil count 2020-04-14 05:40:00* Test Item Value Reference Range Interpretation Comments Neutrophils # (Auto) (test code = 751-8) 9.5 2.1-6.9 [facility] CenterBlood lymphocytes count (number/volume) 2020-04-14 05:40:00* Test Item Value Reference Range Interpretation Comments Lymphocytes # (Auto) (test code = 02902-5) 1.6 1.0-3.2 [facility] CenterBlood monocytes automated count (number/volume)2020-04-14 05:40:00* Test Item Value Reference Range Interpretation Comments Monocytes # (Auto) (test code = 742-7) 0.8 0.2-0.8 [facility] CenterAutomated blood eosinophil count 2020-04-14 05:40:00* Test Item Value Reference Range Interpretation Comments Eosinophils # (Auto) (test code = 711-2) 0.0 0.0-0.4 [facility] CenterAutomated blood basophil count (count/volume)2020-04-14 05:40:00* Test Item Value Reference Range Interpretation Comments Basophils # (Auto) (test code = 704-7) 0.0 0.0-0.1 [facility] CenterFluoroscopic procedure less than one hour cwxvrzkc3698-50-06 05:40:00* Test Item Value Reference Range Interpretation Comments Absolute Immature Granulocyte (auto (tristan t code = Absolute Immature Granulocyte (auto) 0.05 0-0.1 [facility] Hospitalerum or plasma sodium measurement (moles/volume)2020-04-14 05:40:00* Test Item Value Reference Range Interpretation Comments Sodium Level (test code = 2951-2) 137 136-145 [facility] Hospitalerum or plasma potassium measurement (moles/volume)2020-04-14 05:40:00* Test Item Value Reference Range Interpretation Comments Potassium Level (test code = 2823-3) 3.9 3.5-5.1 [facility] Hospitalerum or plasma chloride measurement (moles/volume)2020-04-14 05:40:00* Test Item Value Reference Range Interpretation Comments Chloride Level (test code = 2075-0) 109 98-107 [facility] Hospitalerum or plasma carbon dioxide, total measurement (moles/volume)2020-04-14 05:40:00* Test Item Value Reference Range Interpretation Comments Carbon Dioxide Level (test code = 2028-9) 20 22-29 [facility] Hospitalerum or plasma anion xwn7338-00-47 05:40:00* Test Item Value Reference Range Interpretation Comments Anion Gap (test code = 61532-8) 11.9 8-16 [facility] Hospitalerum or plasma urea nitrogen measurement (mass/volume)2020-04-14 05:40:00* Test Item Value Reference Range Interpretation Comments Blood Urea Nitrogen (test code = 3094-0) 8 7-26 [facility] Hospitalerum or plasma creatinine measurement (mass/volume)2020-04-14 05:40:00* Test Item Value Reference Range Interpretation Comments Creatinine (test code = 2160-0) 0.67 0.57-1.11 [facility] Hospitalerum or plasma urea nitrogen/creatinine mass ktgwh9740-41-91 05:40:00* Test Item Value Reference Range Interpretation Comments BUN/Creatinine Ratio (test code = 3097-3) 12 6-25 [facility] CenterEstimated glomerular filtration rate (GFR) kjpqqrkqdtbns1037-03-65 05:40:00* Test Item Value Reference Range Interpretation Comments Estimat Glomerular Filtration Rate (test code = 404876975) > 60 >60 Ranges were taken from the National Kidney Disease Education Program and the [facility] literature.Reference ranges:60 or greater: Wmbszq90-00 ( for 3 consecutive months): Chronic kidney disease 15 or less: Kidney failureBrooke [facility] Medical CenterGlucose lkbukhzydng0158-08-85 05:40:00* Test Item Value Reference Range Interpretation Comments Glucose Level (test code = ZKN4856) 100 74-118 [facility] Hospitalerum or plasma calcium measurement (mass/volume)2020-04-14 05:40:00* Test Item Value Reference Range Interpretation Comments Calcium Level (test code = 02211-1) 7.6 8.4-10.2 [facility] CenterFluoroscopic procedure less than one hour ilqokfef9484-18-57 01:08:00* Test Item Value Reference Range Interpretation Comments Coronavirus (PCR) (test code = Coronavirus (PCR)) NOT DETECTED NOTD ETECTED testhub Aptima SARS-CoV-2 assay is a nucleic amplification test intended for the qualitative detection of RNA from SARS-CoV-2 from nasopharyngeal (NEWS DEPARTMENT INTERN) specimens . It is used under Emergency [...] for reprat testing oc clinically indicated.Tesing performed by:[facility] Laboratory [address] [place] [address] [id number], Zoltan Ponce MD, PhD [facility] CenterUS PELVIS COMPLETE NON MF4504-61-59 23:51:00 [facility] [address] [address] Patient Name: COLLEEN JOHNSON MR #: [id number] : 1985 Age/Sex: 34/F Req #: [id number] Adm Physician: Ordered by: ZOLTAN MCKNIGHT MD Report #: [id number] Location: ER Room/Bed: Procedure: [id number] US/US PELVIS COMPLETE NON OB Exam Date: [...] COPY TO: ZOLTAN MCKNIGHT MD CT ABDOMEN/PELVIS [id number] 21:42:00 [facility] [address] [address] Patient Name: COLLEEN JOHNSON MR #: [id number] : 1985 Age/Sex: 34/F Req #: [id number] Adm Physician: Ordered by: ZOLTAN MCKNIGHT MD Report #: [id number] Location: ER Room/Bed: Procedure: [id number] CT/CT ABDOMEN/PELVIS W Exam Date: 04/12/20 Exam [...] set by the Radiation Protocol Co mmittee ([facility]). Dose modulation, iterative reconstruction, and/or [...] Bilirubin (test code = 1975-2) 0.5 0.2-1.2 [facility] CenterFluoroscopic procedure less than one hour uhiabopm0094-87-39 19:30:00* Test Item Value Reference Range Interpretation Comments Aspartate Amino Transf (AST/SGOT) (test code = Aspartate Amino Transf (AST/SGOT)) 21 5-34 [facility] Hospitalerum or plasma alanine aminotransferase measurement (enzymatic activity/volume)2020-04-12 19:30:00* Test Item Value Reference Range Interpretation Comments Alanine Aminotransferase (ALT/SGPT) (test code = 1742-6) 17 0-55 [facility] Hospitalerum or plasma protein measurement (mass/volume)2020-04-12 19:30:00* Test Item Value Reference Range Interpretation Comments Total Protein (test code = 2885-2) 7.9 6.5-8.1 [facility] Hospitalerum or plasma albumin measurement (mass/volume)2020-04-12 19:30:00* Test Item Value Reference Range Interpretation Comments Albumin (test code = 1751-7) 3.8 3.5-5.0 [facility] CenterPlasma globulin measurement (mass/volume) 2020-04-12 19:30:00* Test Item Value Reference Range Interpretation Comments Globulin (test code = 35991-8) 4.1 2.3-3.5 [facility] Hospitalerum or plasma albumin/globulin mass bbtmf0478-54-63 19:30:00* Test Item Value Reference Range Interpretation Comments Albumin/Globulin Ratio (test code = 1759-0) 0.9 0.8-2.0 [facility] Hospitalerum or plasma alkaline phosphatase measurement (enzymatic activity/volume)2020-04-12 19:30:00* Test Item Value Reference Range Interpretation Comments Alkaline Phosphatase (test code = 6768-6) 79 40-150 [facility] Hospitalerum or plasma amylase measurement (enzymatic activity/volume)2020-04-12 19:30:00* Test Item Value Reference Range Interpretation Comments Amylase Level (test code = 1798-8) 41 25-125 [facility] Hospitalerum or plasma lipase measurement (enzymatic activity/volume)2020-04-12 19:30:00* Test Item Value Reference Range Interpretation Comments Lipase (test code = 3040-3) 16 78 [facility] Hospitalerum or plasma amylase measurement (enzymatic activity/volume)2020-04-12 19:30:00* Test Item Value Reference Range Interpretation Comments Amylase Level (test code = 1798-8) 41 25-125 [facility] Hospitalerum or plasma lipase measurement (enzymatic activity/volume)2020-04-12 19:30:00* Test Item Value Reference Range Interpretation Comments Lipase (test code = 3040-3) 16 8-78 [facility] CenterUrine color urcsymuzryhqv7109-85-99 19:27:00* Test Item Value Reference Range Interpretation Comments Urine Color (test code = 5778-6) YELLOW YELLOW [facility] [facility] gocrgwh8726-91-54 19:27:00* Test Item Value Reference Range Interpretation Comments Urine Clarity (test code = 53075-4) SL CLOUDY CLEAR [facility] by Test strip 2020-04-12 19:27:00* Test Item Value Reference Range Interpretation Comments Urine Specific Coy (test code = 5811-5) 1.030 1.010-1.02 5 [facility] by automated test nhaxj5896-48-15 19:27:00* Test Item Value Reference Range Interpretation Comments Urine pH (test code = 10944-8) 6.5 5-7 [facility] CenterU[facility] leukocyte esterase detection by iuqurptz2641-67-82 19:27:00* Test Item Value Reference Range Interpretation Comments Urine Leukocyte Esterase (test code = 5799-2) NEGATIVE NEGATIVE [facility] CenterU[facility] nitrite vbhuqdymz0332-76-39 19:27:00* Test Item Value Reference Range Interpretation Comments Urine Nitrite (test code = 01718-4) NEGATIVE NEGATIVE [facility] Center[facility] protein measurement by test strip (mass/volume)2020-04-12 19:27:00* Test Item Value Reference Range Interpretation Comments Urine Protein (test code = 5804-0) NEGATIVE NEGATIVE [facility] CenterU[facility] glucose jjxouagas2857-54-47 19:27:00* Test Item Value Reference Range Interpretation Comments Urine Glucose (UA) (test code = 2349-9) NEGATIVE NEGATIVE [facility] Center[facility] ketones detection by automated test zzbdi0543-24-53 19:27:00* Test Item Value Reference Range Interpretation Comments Urine Ketones (test code = 40943-8) NEGATIVE NEGATIVE [facility] CenterU[facility] opiates screening didn7897-06-06 19:27:00* Test Item Value Reference Range Interpretation Comments Urine Opiates Screen (test code = 84870-0) NEGATIVE NEGATIVE ALL TESTS PERFORMED MANUALLY ON AllClear ID TOX/SEE TESTBro[facility] Medical CenterBarbiturates screen, zxrzi8573-62-64 19:27:00* Test Item Value Reference Range Interpretation Comments Urine Barbiturates Screen (test code = 708061689) NEGATIVE NEGA TIVE [facility] CenterU[facility] phencyclidine detection by screening cqgjvt0409-77-62 19:27:00* Test Item Value Reference Range Interpretation Comments Urine Phencyclidine Screen (test code = 14666-6) NEGATIVE NEGAT ANOOP [facility] CenterU[facility] amphetamines detection by screen method > 1000 ng/bA6892-07-75 19:27:00* Test Item Value Reference Range Interpretation Comments Urine Amphetamines Screen (test code = 72004-1) POSITIVE NEGATI VE This test provides only a screen. Positive results should be repeated by a confi rmatory test.[facility] CenterFluoroscopic procedure less than one hour upjdzksm8498-96-48 19:27:00* Test Item Value Reference Range Interpretation Comments Urine Methamphetamines Screen (test code = Urine Metha mphetamines Screen) NEGATIVE NEGATIVE [facility] CenterUrine benzodiazepines detection by screening akgmtu0684-47-49 19:27:00* Test Item Value Reference Range Interpretation Comments Urine Benzodiazepines Screen (test code = 36104-9) POSITIVE NEG ATIVE This test provides only a screen. Positive results should be repeated by a confi rmatory test.[facility] CenterU[facility] cocaine measurement (mass/volume)2020-04-12 19:27:00* Test Item Value Reference Range Interpretation Comments Urine Cocaine Screen (test code = 3398-5) NEGATIVE NEGATIVE [facility] CenterUrine cannabinoids detection by screening yakxrz8395-29-39 19:27:00* Test Item Value Reference Range Interpretation Comments Urine Cannabinoids Screen (test code = 66521-9) NEGATIVE NEGATI VE THESE RESULTS ARE FOR MEDICAL TREATMENT ONLYTHIS REPORT CONTAINS UNCONFIR MED SCREENING RESULTS*POSITIVE RESULTS WILL BE CONFIRMED BY REFERENCE LAB UPON R EQUEST CUT-OFFDRUG CLASS CONCENTRATION ng/mLAmphetamines 1000Methamphetamines 1000Cocaine 300Opiate 300Phencyc lidine 25Cannabinoid 50Barbiturates 300Benzodiazepine 300Methadone 300[facility] ryqlgh0855-86-07 19:27:00* Test Item Value Reference Range Interpretation Comments Urine Methadone Screen (test code = 45702-6) NEGATIVE NEGATIVE THESE RESULTS ARE FOR MEDICAL TREATMENT ONLYTHIS REPORT CONTAINS UNCONFIR MED SCREENING RESULTS*POSITIVE RESULTS WILL BE CONFIRMED BY REFERENCE LAB UPON R EQUEST CUT-OFFDRUG CLASS CONCENTRATION ng/mLAmphetamines 1000Methamphetamines 1000Cocaine Metabolite 300Opiate 300Phencyc lidine 25Cannabinoid 50Barbiturates 300Benzodiazepine 300Methadone 300[facility] HospitalUrine urobilinogen measurement by test strip (mass/volume)2020-04-12 19:27:00* Test Item Value Reference Range Interpretation Comments Urine Urobilinogen (test code = 00506-9) 0.2 0.2-1 [facility] CenterU[facility] total bilirubin measurement (mass/volume)2020-04-12 19:27:00* Test Item Value Reference Range Interpretation Comments Urine Bilirubin (test code = 1978-6) NEGATIVE NEGATIVE [facility] CenterU[facility] erythrocytes orkjtyuum8753-73-87 19:27:00* Test Item Value Reference Range Interpretation Comments Urine Blood (test code = 74157-4) MODERATE NEGATIVE [facility] CenterAutomated urine sediment leukocyte count by microscopy (number/high power field)2020-04-12 19:27:00* Test Item Value Reference Range Interpretation Comments Urine WBC (test code = 5821-4) NONE 0-5 [facility] CenterErythrocytes detection in urine sediment by light rxkcxcyqhs0780-73-81 19:27:00* Test Item Value Reference Range Interpretation Comments Urine RBC (test code = 84046-8) 6-10 0-5 [facility] CenterBacteria detection in urine sediment by light aqzhghspmy8472-14-52 19:27:00* Test Item Value Reference Range Interpretation Comments Urine Bacteria (test code = 64505-7) MANY NONE [facility] CenterEpithelial cells detection in urine sediment by light jsebpxspmg7045-72-32 19:27:00* Test Item Value Reference Range Interpretation Comments Urine Epithelial Cells (test code = 34795-6) MANY NONE [facility] CenterTransitional cells detection in urine sediment by light zxbpbefhni9909-73-80 19:27:00* Test Item Value Reference Range Interpretation Comments Urine Transitional Epithelial Cells (test code = 8249-5) FEW NONE [facility] CenterUrine human chorionic gonadotropin (hCG) vajdfkpyr1266-42-76 19:27:00* Test Item Value Reference Range Interpretation Comments Urine Test (test code = 2106-3) NEGATIVE NEGATIVE [facility] CenterUrine color lapqfvogvolgu3168-29-45 19:27:00* Test Item Value Reference Range Interpretation Comments Urine Color (test code = 5778-6) YELLOW YELLOW [facility] CenterUrine nnsjmjh3341-82-65 19:27:00* Test Item Value Reference Range Interpretation Comments Urine Clarity (test code = 34523-2) SL CLOUDY CLEAR [facility]pecific [facility] Urine by Test strip 2020-04-12 19:27:00* Test Item Value Reference Range Interpretation Comments Urine Specific Coy (test code = 5811-5) 1.030 1.010-1.02 5 [facility] CenterU[facility] pH measurement by automated test camrg3022-92-80 19:27:00* Test Item Value Reference Range Interpretation Comments Urine pH (test code = 44327-4) 6.5 5-7 [facility] CenterU[facility] leukocyte esterase detection by odxdeeqy4296-10-54 19:27:00* Test Item Value Reference Range Interpretation Comments Urine Leukocyte Esterase (test code = 5799-2) NEGATIVE NEGATIVE [facility] CenterUrine nitrite smylikymu6635-42-48 19:27:00* Test Item Value Reference Range Interpretation Comments Urine Nitrite (test code = 89630-7) NEGATIVE NEGATIVE [facility] CenterUrine protein measurement by test strip (mass/volume)2020-04-12 19:27:00* Test Item Value Reference Range Interpretation Comments Urine Protein (test code = 5804-0) NEGATIVE NEGATIVE [facility] CenterUrine glucose hsifuzctk0304-65-33 19:27:00* Test Item Value Reference Range Interpretation Comments Urine Glucose (UA) (test code = 2349-9) NEGATIVE NEGATIVE [facility] CenterUrine ketones detection by automated test movvr2702-43-83 19:27:00* Test Item Value Reference Range Interpretation Comments Urine Ketones (test code = 32886-8) NEGATIVE NEGATIVE [facility] CenterUrine opiates screening nmvy9154-01-85 19:27:00* Test Item Value Reference Range Interpretation Comments Urine Opiates Screen (test code = 70082-5) NEGATIVE NEGATIVE ALL TESTS PERFORMED MANUALLY ON AllClear ID TOX/SEE TESTBrooke [facility] Medical CenterBarbiturates screen, aaeoy3869-99-03 19:27:00* Test Item Value Reference Range Interpretation Comments Urine Barbiturates Screen (test code = 444421001) NEGATIVE NEGA TIVE [facility] CenterUrine phencyclidine detection by screening ctwpnn5318-37-30 19:27:00* Test Item Value Reference Range Interpretation Comments Urine Phencyclidine Screen (test code = 05632-6) NEGATIVE NEGAT ANOOP [facility] CenterUrine amphetamines detection by screen method > 1000 ng/zR3435-76-58 19:27:00* Test Item Value Reference Range Interpretation Comments Urine Amphetamines Screen (test code = 04637-6) POSITIVE NEGATI VE This test provides only a screen. Positive results should be repeated by a confi rmatory test.[facility] CenterFluoroscopic procedure less than one hour ebfibndx0325-73-43 19:27:00* Test Item Value Reference Range Interpretation Comments Urine Methamphetamines Screen (test code = Urine Metha mphetamines Screen) NEGATIVE NEGATIVE [facility] CenterUrine benzodiazepines detection by screening vhxbiq0574-37-14 19:27:00* Test Item Value Reference Range Interpretation Comments Urine Benzodiazepines Screen (test code = 36553-7) POSITIVE NEG ATIVE This test provides only a screen. Positive results should be repeated by a confi rmatory test.[facility] CenterUrine cocaine measurement (mass/volume)2020-04-12 19:27:00* Test Item Value Reference Range Interpretation Comments Urine Cocaine Screen (test code = 3398-5) NEGATIVE NEGATIVE [facility] CenterUrine cannabinoids detection by screening eibcmz9316-96-85 19:27:00* Test Item Value Reference Range Interpretation Comments Urine Cannabinoids Screen (test code = 65427-5) NEGATIVE NEGATI VE THESE RESULTS ARE FOR MEDICAL TREATMENT ONLYTHIS REPORT CONTAINS UNCONFIR MED SCREENING RESULTS*POSITIVE RESULTS WILL BE CONFIRMED BY REFERENCE LAB UPON R EQUEST CUT-OFFDRUG CLASS CONCENTRATION ng/mLAmphetamines 1000Methamphetamines 1000Cocaine 300Opiate 300Phencyc lidine 25Cannabinoid 50Barbiturates 300Benzodiazepine 300Methadone 300[facility] HospitalUrine methadone uzijef7782-55-52 19:27:00* Test Item Value Reference Range Interpretation Comments Urine Methadone Screen (test code = 11145-0) NEGATIVE NEGATIVE THESE RESULTS ARE FOR MEDICAL TREATMENT ONLYTHIS REPORT CONTAINS UNCONFIR MED SCREENING RESULTS*POSITIVE RESULTS WILL BE CONFIRMED BY REFERENCE LAB UPON R EQUEST CUT-OFFDRUG CLASS CONCENTRATION ng/mLAmphetamines 1000Methamphetamines 1000Cocaine Metabolite 300Opiate 300Phencyc lidine 25Cannabinoid 50Barbiturates 300Benzodiazepine 300Methadone 300[facility] HospitalUrine urobilinogen measurement by test strip (mass/volume)2020-04-12 19:27:00* Test Item Value Reference Range Interpretation Comments Urine Urobilinogen (test code = 50438-5) 0.2 0.2-1 [facility] CenterUrine total bilirubin measurement (mass/volume)2020-04-12 19:27:00* Test Item Value Reference Range Interpretation Comments Urine Bilirubin (test code = 1978-6) NEGATIVE NEGATIVE [facility] CenterUrine erythrocytes fznfykmvp7474-78-05 19:27:00* Test Item Value Reference Range Interpretation Comments Urine Blood (test code = 75341-7) MODERATE NEGATIVE [facility] CenterAutomated urine sediment leukocyte count by microscopy (number/high power field)2020-04-12 19:27:00* Test Item Value Reference Range Interpretation Comments Urine WBC (test code = 5821-4) NONE 0-5 [facility] CenterErythrocytes detection in urine sediment by light zaslqhzkzp6387-23-76 19:27:00* Test Item Value Reference Range Interpretation Comments Urine RBC (test code = 17362-2) 6-10 0-5 [facility] CenterBacteria detection in urine sediment by light frnpaccchv1774-90-79 19:27:00* Test Item Value Reference Range Interpretation Comments Urine Bacteria (test code = 94038-8) MANY NONE [facility] CenterEpithelial cells detection in urine sediment by light lvrywrbkxy7024-49-94 19:27:00* Test Item Value Reference Range Interpretation Comments Urine Epithelial Cells (test code = 88794-9) MANY NONE [facility] CenterTransitional cells detection in urine sediment by light vpgmquqosi9166-93-02 19:27:00* Test Item Value Reference Range Interpretation Comments Urine Transitional Epithelial Cells (test code = 8249-5) FEW NONE [facility] QhfhkzJJYWIIVADN1672-16-84 02:10:0011.7[facility] SfcfpjsMKZWBAAXQX6662-37-11 02:10:00* Test Item Value Reference Range Interpretation Comments Vanco Tr TND (test code = Vanco Tr TND) 2200 1 [facility]annCHEM JQKTY8603-90-09 17:36:23367Jdafdsnx HermannCHEM PANEL 2020-03-25 17:36:0010[facility]annCHEM EREQA8422-54-48 17:36:000.64[facility]annCHEM AVIUS4805-45-49 17:36:44736Lgkaaxzh [facility]annCHEM BWCIX8392-34-95 17:36:004.1[facility]annCHEM MOZBR8921-08-21 17:36:65633Nxbiaebv HermannCHEM YFLEB0097-26-96 17:36:0030[facility]annCHEM COWMB7952-64-62 17:36:008.4 [facility]annCHEM HUZCC9038-80-64 17:36:007.1[facility]annCHEM PANEL 2020-03-25 17:36:51279Ymjsklmd HaljhoeFWJLAVQBHY9416-15-13 14:50:0021.4[facility] XkcdtqzOKQGMQVUAC3711-42-18 14:50:00* Test Item Value Reference Range Interpretation Comments Vanco Tr TND (test code = Vanco Tr TND) 1000 1 [facility] GxbbaivCIBZTFOVRG1678-93-06 14:36:0013.7[facility] HermannTOXICOLOGY 2020-03-24 14:36:00* Test Item Value Reference Range Interpretation Comments Vanco Tr TND (test code = Vanco Tr TND) 1100 1 [facility] HermannTRIMETHOPRIM+SULFAMETHOXAZOLE:SUSC:PT:ISOLATE:ORDQN:MONISHA 2020-03-23 12:34:00Staphylococcus aureusMemorial HermannCHEM PUBEG3714-11-30 12:20:0092[facility]annCHEM APACZ0408-02-43 12:20:0011[facility]annCHEM BEWGS0083-55-60 12:20:000.64[facility]annCHEM MUXGR4594-68-70 12:20:59444 [facility]annCHEM AYKOP2727-57-91 12:20:003.7[facility]annCHEM PANEL 2020-03-23 12:20:07701Boobcmyy HermannCHEM MAOCY8751-47-52 12:20:0028[facility]annCHEM RNIXO6718-72-65 12:20:008.2[facility]annCHEM HZXGT3195-63-12 12:20:002.8[facility]annCHEM ZWRSQ5388-50-37 12:20:0016[facility]annCHEM ZAECN4611-42-85 12:20:0011[facility]annCHEM OOURH9383-48-34 12:20:007.7 [facility]annCHEM TZHFI0493-48-06 12:20:00* Test Item Value Reference Range Interpretation Comments B/C Ratio (test code = B/C Ratio) 17 1 6-25 [facility]annCHEM YNPDK0367-94-13 12:20:17281Ytosufgg HermannCHEM PANEL 2020-03-23 12:20:006.7[facility]annCHEM XUMJB3147-85-71 12:20:0075[facility]annCHEM AMMNE7384-32-57 12:20:000.5[facility]annCHEM NMLIU5106-56-05 12:20:003.9[facility]annCHEM ZMJEH2039-42-80 12:20:00* Test Item Value Reference Range Interpretation Comments A/G Ratio (test code = A/G Ratio) 0.7 1 0.7-1.6 [facility] DvznblmNCPCBHQMKI3242-82-27 12:20:0010.2[facility] HermannHEMATOLOGY 2020-03-23 12:20:004.12[facility] KvgzfszEYPJODWYBR8769-44-92 12:20:0012.2[facility] YvluxfwLQGWZYPJFR9299-56-30 12:20:0036.5[facility] PvfompwSUWIHNYZDM5600-36-38 12:20:0088.6[facility] DvlvyyiXYEDXJHQQT2383-01-71 12:20:00* Test Item Value Reference Range Interpretation Comments MCH (test code = MCH) 29.5 pg 27.0-31.0 [facility] NnocjnmJNOQGSYCPJ8326-07-46 12:20:0033.3[facility] HermannHEMATOLOGY 2020-03-23 12:20:0013.9[facility] MbmsnxaSGSOUJEJVF3526-89-02 12:20:15253Qdovuhyb QudieufTHYFJAGIOE5427-53-36 12:20:008.3[facility] TrfweqtQETGMWCCKP6469-38-01 12:20:0063.8[facility] VqgvohaAAVZIPXGYS4608-33-74 12:20:0021.4[facility] [place] EOHHOVBDOS1283-75-55 12:20:009.2[facility] UxljpghJFZVOTZQDM9036-08-32 12:20:004.6 [facility] TddvtbuCUJEQPZWBP7169-04-08 12:20:001.0[facility]annHEMATOLOGY 2020-03-23 12:20:006.5[facility] NuxxmbbCVKGJGQDWK8602-26-06 12:20:002.2[facility] LcgfhllISPHFJUGAD7056-19-87 12:20:000.9[facility] IwlyflpZGCAGMYDQJ6209-81-08 12:20:000.5[facility] VdmviksAHGFCTTKLO5455-90-97 12:20:000.1[facility] URINALYSIS VOXOCUHL6684-99-73 09:07:00* Test Item Value Reference Range Interpretation [...] HPF NONE Urine Source? Clean CatchUR HCG RWHR2919-49-33 09:07:00* Test Item Value Reference Range Interpretation Comments UR HCG QUAL (test code = HCGQLU) NEGATIVE This HCGQL test is NOT applicable for MALE patients.Check with nurse about probable order error.If Tumor Marker Test needed, nurse should order test "HCGTU"(Test #550.17395) Urine Source? Clean CatchDRUGS OF ABUSE SCREEN RD3240-88-75 09:07:00* Test Item Value Reference Range Interpretation [...] NEGATIVE NEGATIV E Urine Source? Clean CatchURINALYSIS WSUUPXXU9664-85-26 09:00:00* Test Item Value Reference Range Interpretation [...] HPF NONE Urine Source? Clean CatchUR HCG HPDN2384-99-26 09:00:00* Test Item Value Reference Range Interpretation Comments UR HCG QUAL (test code = HCGQLU) NEGATIVE This HCGQL test is NOT applicable for MALE patients.Check with nurse about probable order error.If Tumor Marker Test needed, nurse should order test "HCGTU"(Test #550.08617) Urine Source? Clean CatchDRUGS OF ABUSE SCREEN VT3676-83-84 09:00:00* Test Item Value Reference Range Interpretation Comments URN COCAINE (test code = COCAURN) NEGATIVE URN CANNABINOIDS (test code = CANNABURN) NEGATIVE URN AMPHETAMINE (test code = AMPHETURN) NEGATIVE URN BARBITURATE (test code = BARBITURN) NEGATIVE URN BENZODIAZEPINE (test code = BENZOURN) NEGATIVE URN OPIATES (test code = OPIATURN) NEGATIVE URN PHENCYCLIDINE (PCP) (test code = PHENCURN) NEGATIV E Urine Source? Clean CatchURINALYSIS GSHTVQLO1599-10-97 08:55:00* Test Item Value Reference Range Interpretation [...] HPF NONE Urine Source? Clean CatchUR HCG OBRW0019-58-57 08:55:00* Test Item Value Reference Range Interpretation Comments UR HCG QUAL (test code = HCGQLU) NEGATIVE This HCGQL test is NOT applicable for MALE patients.Check with nurse about probable order error.If Tumor Marker Test needed, nurse should order test "HCGTU"(Test #550.14196) Urine Source? Clean CatchDRUGS OF ABUSE SCREEN CM5307-64-56 08:55:00* Test Item Value Reference Range Interpretation Comments URN COCAINE (test code = COCAURN) NEGATIVE URN CANNABINOIDS (test code = CANNABURN) NEGATIVE URN AMPHETAMINE (test code = AMPHETURN) NEGATIVE URN BARBITURATE (test code = BARBITURN) NEGATIVE URN BENZODIAZEPINE (test code = BENZOURN) NEGATIVE URN OPIATES (test code = OPIATURN) NEGATIVE URN PHENCYCLIDINE (PCP) (test code = PHENCURN) NEGATIV E Urine Source? Clean CatchURINALYSIS GDIQRRFA6543-85-29 08:53:00* Test Item Value Reference Range Interpretation [...] HPF NONE Urine Source? Clean CatchUR HCG TKKG7548-81-54 08:53:00* Test Item Value Reference Range Interpretation Comments UR HCG QUAL (test code = HCGQLU) Urine Source? Clean CatchDRUGS OF ABUSE SCREEN QE0646-65-88 08:53:00* Test Item Value Reference Range Interpretation Comments URN COCAINE (test code = COCAURN) NEGATIVE URN CANNABINOIDS (test code = CANNABURN) NEGATIVE URN AMPHETAMINE (test code = AMPHETURN) NEGATIVE URN BARBITURATE (test code = BARBITURN) NEGATIVE URN BENZODIAZEPINE (test code = BENZOURN) NEGATIVE URN OPIATES (test code = OPIATURN) NEGATIVE URN PHENCYCLIDINE (PCP) (test code = PHENCURN) NEGATIV E Urine Source? Clean EetilUHOBCWWVKO4768-28-18 14:27:0014.1[facility]annCHEM HUQXP9484-88-09 10:40:0099[facility]annCHEM NZKOT7975-28-44 10:40:008[facility]annCHEM TEVGX2751-03-72 10:40:000.59[facility] HermannCHEM WVWCT7817-44-01 10:40:26911Rpirrthb HermannCHEM RHJCI9183-85-97 10:40:004.0[facility]annCHEM NRYOS6632-53-75 10:40:39681Cladqhcw [facility]annCHEM XIMHU2712-33-74 10:40:0025 [facility]annCHEM GDRLX3525-19-03 10:40:008.5[facility] HermannCHEM PANEL 2019-11-03 10:40:006.4[facility] HermannCHEM QLSSA4750-04-42 10:40:002.8[facility]annCHEM QQRAL0876-58-31 10:40:0051[facility]annCHEM EIFSW4002-37-33 10:40:0041[facility]annCHEM LVOGG9292-90-93 10:40:0084[facility]annCHEM ZVROR7384-44-80 10:40:000.4[facility] HermannCHEM WRKEE7641-26-65 10:40:008.0 [facility]annCHEM LGGNC6988-96-47 10:40:00* Test Item Value Reference Range Interpretation Comments B/C Ratio (test code = B/C Ratio) 14 1 6-25 [facility]annCHEM XDQLB1833-80-05 10:40:003.6[facility] HermannCHEM PANEL 2019-11-03 10:40:00* Test Item Value Reference Range Interpretation Comments A/G Ratio (test code = A/G Ratio) 0.8 1 0.7-1.6 [facility]annCHEM ALCPF9132-10-42 10:40:56756Ispyeoix HermannHEMATOLOGY 2019-11-03 10:40:0065.6[facility] WroixpdMUYDYCMXAD5451-85-92 10:40:0020.6[facility] PqqcnjvHOWGSDAELR1299-00-80 10:40:008.8[facility] CudpsabPREIABTCPF9260-15-53 10:40:004.2[facility] RfbgviqSKIZJBXZNA5814-22-78 10:40:000.8[facility] BTPUUISRLF6625-63-87 10:40:006.0[facility] FtmmpskJUOPYVJEKH4697-19-97 10:40:001.9 [facility] TkkcofwSXNJMTMVYD4048-80-36 10:40:000.8[facility] HermannHEMATOLOGY 2019-11-03 10:40:000.4[facility] UufejtnGHWSPNXVZS4138-97-30 10:40:000.1[facility] BrespebQEWENEMKFH0678-98-03 10:40:009.1[facility] TyzwezdRSBXPECTCS0954-15-74 10:40:004.27[facility] IyaqbvrQTJZHXUTIC3031-28-43 10:40:0012.4[facility] TRPKOFUNYQ2482-29-14 10:40:0038.1[facility] MlanbppIPMEDHLXCR7219-82-01 10:40:00 89.2[facility] KieedlbFKQMQOAXTS9885-61-10 10:40:00* Test Item Value Reference Range Interpretation Comments MCH (test code = MCH) 29.0 pg 27.0-31.0 [facility] NwhuwhqRNQHYHZWDP7947-84-48 10:40:0032.5[facility]annHEMATOLOGY 2019-11-03 10:40:0013.1[facility] BxrpicdXYQVYEPZUR7190-33-21 10:40:82274Xtkoikja McujafgDIYNUPJXUK8089-89-14 10:40:008.9[facility] HermannSPECIAL CHEMISTRY 2019-11-03 10:40:005.3[facility]annCHEM XRIDD3883-34-76 10:09:0096[facility]annCHEM MNMUI9184-45-48 10:09:009[facility]annCHEM RFDWN6615-26-29 10:09:000.70[facility] HermannCHEM DCVIR1403-70-12 10:09:11820Aglwonhw HermannCHEM PHNMF2910-32-01 10:09:004.0[facility] HermannCHEM EZPZF7690-19-04 10:09:09341 [facility]annCHEM GBASH0601-81-80 10:09:0026[facility] HermannCHEM PANEL 2019-11-02 10:09:008.3[facility] HermannCHEM TMFRX9785-49-90 10:09:009.0[facility] HermannCHEM AUBOD1861-07-39 10:09:29411Yihwyyhz [place]- CTA EISVW5326-28-77 20:38:00 Name: COLLEEN JOHNSON [facility] : 1985 Age/S: 33 / F [address] [facility] Unit #: [id number] Loc: [place] [address] Phys: Loreto Whiting MD Acct: [id number] Dis Date: Status: REG ER PHONE #: [phone] Exam Date: 08/16/20191954 FAX #: [phone] Reason: SOB, pleuritic CP, hemoptysis EXAMS: CPT CODE: [id number] CTA CHEST 11431 REASON FOR EXAM: SOB, pleuritic CP, hemoptysis [...] 1 Signed Report (CONTINUED) [facility] 1985 Age/S: 33 / F [address] [facility] Unit #: [id number] Loc: [place] [address] Phys: Loreto Whiting MD Acct: [id number] Dis Date: Status: REG ER PHONE #: [phone] Exam Date: 08/16/20191954 FAX #: [phone] Reason: SOB, p leuritic CP, hemoptysis EXAMS: CPT CODE: [id number] CTA CHEST 51767 <Continued> segment of the left lower lobe may represent an infectious process. Remainder of the lungs are clear. Location: [facility] at 2037 Reported and signed by: Carlton Alcaraz MD CC: Loreto Whiting MD Technologist:EDY LUNA(R),RDMS,CT CTDI: DLP: Trnscb Date/Time: 08/16/2019 (2037) [email or web address] Orig Print D/T: S: 08/16/2019 (2040) PAGE 2 Signed Report - XR CHEST 2 V0567-52-26 20:03:00 Name: COLLEEN JOHNSON [facility] : 1985 Age/S:33 /F [address] [facility] Unit#:[id number] Loc: [place] [address] Phys: Kaylee Whiting MD Dis Date: PHONE #: [phone] Status: REG ER FAX #: [phone] Exam Date: 08/16/2019 Re ason: SOB EXAMS: CPT CODE: [id number] XR CHEST 2 V 97885 REASON FOR EXAM: SOB Exam Order Date: [...] IMPRESSION : No acute cardiopulmonary process. Location: [facility] at 2002 Reported and signed by: Carlton Alcaraz MD CC: Cailin Whiting MD Technologist: EDY LUNA RT(R),R DMS,CT Trnscrpt Data: 08/16/2019 (2002) t.[email or web address] Orig Print D/T: S: 08/16/2019 (2006) PAGE 1 Signed Report [id number] 18:37:00* Test Item Value Reference Range Interpretation Comments D-DIMER (test code = DDIMER) < 100 ng/ml < 600 COMPREHENSIVE METABOLIC AJUMF2139-12-05 18:35:00* Test Item Value Reference Range Interpretation [...] code = ALKP) 74 U/L 38-126 N JHTCQXEK-M6975-17-31 18:35:00* Test Item Value Reference Range Interpretation Comments TROPONIN-I (test code = TROPI) <0.015 ng/mL 0.00-0.056 N COMPREHENSIVE METABOLIC QVSSM4721-93-25 18:22:00* Test Item Value Reference Range Interpretation [...] TOTAL (test code = ALKP) IUnit/L 45-117 EBMVECUE-O0367-11-31 18:22:00* Test Item Value Reference Range Interpretation Comments TROPONIN-I (test code = TROPI) ng/mL 0-0.045 CBC W/AUTO ZJIG0502-00-47 18:15:00* Test Item Value Reference Range Interpretation [...] MDIFF) NO ANKLE 3 VIEW RT - HMZP6432-55-97 19:27:00 [place] [address] Patient Name: COLLEEN JOHNSON MR #: [id number] : 1985 Age/Sex: 33/F Req #: [id number] Adm Physician: Ordered by: GLYNN BHATT MD Report #: [id number] Location: [facility] Room/Bed: Procedure: [id number] HOPD/ANKLE 3 VIEW RT - HOPD Exam [...] 7:27 PM Dictated By: DUARTE MOTA MD [facility] y Signed By: DUARTE MOTA MD on 07/29/191926 Transcribed By: LILIA on 07/17 COPY TO: GLYNN BHATT MD NVJFJIMRUJIR1091-60-94 07:19:0010.1[facility] ToaxwotVHBOTZZNQZFP8776-48-99 07:19:00* Test Item Value Reference Range Interpretation Comments B/C Ratio (test code = B/C Ratio) 20 1 6-25 [facility] KctmprwPAXGXEHPXIRA4307-81-23 07:19:004.3[facility]annELECTROLYTES 2019-05-25 07:19:00* Test Item Value Reference Range Interpretation Comments A/G Ratio (test code = A/G Ratio) 0.9 1 0.7-1.6 [facility] CulqkdeYHGGXKFPGEVU3184-45-46 07:19:0094[facility]annELECTROLYTES 2019-05-25 07:19:0013[facility] BhbfomjREDLKGCWDQOQ2941-21-03 07:19:000.66[facility] ZzryiseCQUVUQQPEGMP3176-39-65 07:19:26806Xqxnjaxc UcaawxfMVXCMBSEDUNW9243-06-99 07:19:004.1[facility] OvsfqxrMJIDFSBXBQTK0756-79-10 07:19:75071Lmzpxgzj [place] QDIIPGEYDKPQ9614-95-92 07:19:0024[facility] FmcqxryHQPHHHSZAFMP8771-89-12 07:19:00 9.3[facility] GwzkmtiMOHBYQOQDJNC8651-78-88 07:19:008.2[facility] CZGMSYWZAOPH0820-68-07 07:19:003.9[facility] FabwobiBSVVSURRFKSE7297-62-35 07:19:0025[facility] TfdtipwBPWFQQEQDIGF9040-88-48 07:19:0014[facility] [place] VWAHWROXCPZM4838-23-48 07:19:0098[facility] PlnfaahVFDVBIQJRXVU3722-13-70 07:19:00 0.4[facility] YjwbrhxYCDYWUEBHCJB5465-62-81 07:19:66498Gbyiukel [place] QJMKRCIWFYCPT9499-72-59 07:19:00Negative *NA*(05/25/19 2:19 AM)[facility] UUJJBAILNJ2374-17-77 07:19:0014.7[facility] GnqqyuuIEUPHICGSM6215-08-76 07:19:00 4.90[facility] BcoafkxMELCQFHEKK6133-13-49 07:19:0014.1[facility] HermannHEMATOLOGY 2019-05-25 07:19:0043.2[facility] SrdtauqZETKXMYEBI9468-52-70 07:19:0088.2[facility] XdejyypHIBXJGORKO8435-44-57 07:19:00* Test Item Value Reference Range Interpretation Comments MCH (test code = MCH) 28.8 pg 27.0-31.0 [facility] EsgjapcRYQKOQSLNR2987-46-22 07:19:0032.7[facility] HermannHEMATOLOGY 2019-05-25 07:19:0013.2[facility] QxglpiuAPTLXLNYNU7278-82-49 07:19:64428Diavbmpj YdjisbwVLHGYHKZZL6502-66-51 07:19:008.5[facility] GexniwdFXUSHEPUBG1666-24-07 07:19:0066.4[facility] MwnqqolQRDQZOVHLC3081-82-57 07:19:0021.1[facility] [place] OUGWSGJPZA8164-42-02 07:19:007.4[facility] KbtpjsnQAWUONSCEU2162-96-59 07:19:004.1 [facility] BltkuceQAQJPDJREH1527-07-75 07:19:001.0[facility]annHEMATOLOGY 2019-05-25 07:19:009.8[facility] LwtxdtqWLYZOKAZER4854-93-12 07:19:003.1[facility] FprtqpwQKMOIJWRXJ1323-09-78 07:19:001.1[facility] AxktflsPHWNRQJJLG3529-43-05 07:19:000.6[facility] TvezxbbIOAXHQDURO0006-43-28 07:19:000.1[facility] HermannCHEM CUIPB4151-17-15 22:11:81197Ypklftsv HermannCHEM PXUER7013-40-02 22:11:0010 [facility]annCHEM AZNBO0814-09-37 22:11:000.78[facility] HermannCHEM PANEL 2019-04-03 22:11:12923Gbrzwvhe HermannCHEM BXEEJ8068-23-20 22:11:003.9[facility] HermannCHEM YCLPA3489-45-54 22:11:37460Rqfbirva HermannCHEM RTGCN1638-23-33 22:11:0025[facility] HermannCHEM GTGCG1460-77-56 22:11:008.8[facility] HermannCHEM EGSGY7247-15-76 22:11:08258Ydjyssoc HermannCHEM NKOSD1359-67-08 22:11:0010.9 [facility] RbxpdfhQLFJPSTYCTJNQ8539-20-91 22:11:00Negative *NA*(04/03/19 5:11 PM) [facility] CvwdxieQXIBQZKWNM4299-14-73 22:11:0011.5[facility] HermannHEMATOLOGY 2019-04-03 22:11:004.85[facility] IfdettnVOQQQPMTBH6794-20-20 22:11:0014.2[facility] JllzyhsXYNELBKBRH4327-08-39 22:11:0043.0[facility] KbqeoakBIMLXTEXFY0945-25-01 22:11:0088.7[facility] DelbcrgPFIDDOGQYM5315-86-49 22:11:00* Test Item Value Reference Range Interpretation Comments MCH (test code = MCH) 29.2 pg 27.0-31.0 [facility] BecbbctREDFQPCHEY2060-01-02 22:11:0033.0[facility] HermannHEMATOLOGY 2019-04-03 22:11:0013.3[facility] TlcmyhmXXOCPJERUV9445-87-83 22:11:71831Cdlobraj TljviluTGQOFQDQUF1496-14-05 22:11:008.4[facility] EokyjuhDHRQJVPNFX2281-19-93 22:11:0066.0[facility] AhceurpPBCQVKYOYZ7574-09-61 22:11:0021.2[facility] [place] HNFRBZUKJG4610-28-93 22:11:008.2[facility] CamepkaMHFUHGMZJZ4815-55-41 22:11:003.6 [facility] KglzbwtTVYSMPKMHU3492-84-16 22:11:001.0[facility] HermannHEMATOLOGY 2019-04-03 22:11:007.6[facility] JzvberwYVWIDTNRJY4296-98-93 22:11:002.4[facility] ScfmpseIPYWAGHPXB0993-90-27 22:11:000.9[facility] KskbuwtMZQZVDUUQX0501-64-65 22:11:000.4[facility] ZruebnvZVCEHTBISR8681-98-95 22:11:000.1[facility] [place] JVCXROVIBE1493-49-54 08:46:0011.2[facility] NcsdogxXTEXQZPOSS6303-72-77 08:46:00 13.7[facility] FlfnkhuIEWZARJAIW7941-28-27 08:46:008.9[facility] HermannHEMATOLOGY 2019-03-24 08:46:004.66[facility] RluiuagVCSCYWJGQF9796-45-55 08:46:04108Nmuaywaz MzxfgvzTXLPANSOYU8888-33-52 08:46:00* Test Item Value Reference Range Interpretation Comments MCH (test code = MCH) 29.5 pg 27.0-31.0 [facility] BrzheqkBEAHIMKJGK4050-03-02 08:46:0033.8[facility] HermannHEMATOLOGY 2019-03-24 08:46:0013.7[facility] QdtllnaAJZWQBEYUC7581-68-74 08:46:0040.6[facility] BpmvegnOMUYNWYAAF8319-36-02 08:46:0087.1[facility] KwybmcdDJOHXUYTCC6618-65-45 08:46:003.3[facility] ZztqhgrWRMVUNEJON0169-91-14 08:46:007.6[facility] [place] ABVFNGTPTP0413-69-85 08:46:000.1[facility] PszgfxoJRKQGZDZSA3651-77-02 08:46:000.4 [facility] WtekxuoKQDRXMKPFN4805-29-22 08:46:0065.7[facility] HermannHEMATOLOGY 2019-03-24 08:46:0022.6[facility] NvdlsznAAKJRAIBDQ2726-92-89 08:46:007.4[facility] RnbmkdmEKQRYUSNLX3961-26-30 08:46:000.8[facility] HxbpsziFVNPHORNMV2701-64-01 08:46:000.8[facility] WpcydcaKZCBHDACST3328-05-50 08:46:002.5[facility] HermannCHEM YJGMU0356-90-16 03:31:00<0.05[facility] HermannCHEM DANTO6113-51-36 22:26:001.7 [facility] HermannCHEM SZMDR8260-05-35 17:57:001.7[facility] HermannELECTROLYTES 2019-03-23 17:57:0011.5[facility] FhgosvkBSTIFIAZVHVI8471-16-95 17:57:0099[facility] HxmdemuCUMUUPMDXFGG0114-18-61 17:57:66703Yeebrjhc VmujojsGOARHBRJAQUH1054-43-48 17:57:008.8[facility] TihzaaeQRQBIGEPUCVG6274-99-02 17:57:0025[facility] OLZEZCCCAHKQ6125-32-43 17:57:32939Uabbaqac TpifdfeVYHPRQUABRUB2365-97-94 17:57:003.5[facility] QemvjhyJETJRZHEMGXS0801-25-48 17:57:76629Xceozcvc [place] RNGXMZXFRVGK0484-50-07 17:57:000.79[facility] XfwrtrbTOJMYGUCHSYM3639-62-73 17:57:0010[facility] KhdqwshVXWSJYPLIR0948-32-49 17:57:000.7[facility] OYPPPIELUD4733-46-90 17:57:000.3[facility] UkdvjxlRLJXUQDCUZ8679-07-66 17:57:001.0 [facility] PnxfdbwATCNGLSPMR7116-79-78 17:57:003.1[facility] HermannHEMATOLOGY 2019-03-23 17:57:000.1[facility] TqayqtwFLICLRQVWA2923-90-36 17:57:008.0[facility] XxctvjfMSWWQIJTKR5323-36-50 17:57:002.1[facility] PylbjhaUEXOSABBKM9050-85-47 17:57:0018.5[facility] ArykfcyANVCYXIJKK7654-52-20 17:57:006.6[facility] [place] CCYFTBJPQW3866-47-45 17:57:0070.8[facility] EfiutouSERMUSLEMW1464-33-68 17:57:00 271[facility] AorxvgkIMDZJQBVQG4693-39-25 17:57:008.0[facility] HermannHEMATOLOGY 2019-03-23 17:57:0013.6[facility] TiiooaxXGMIQIXDTR9346-94-21 17:57:00* Test Item Value Reference Range Interpretation Comments MCH (test code = MCH) 29.3 pg 27.0-31.0 [facility] XjdsgleLMHNRAINBD9158-38-50 17:57:0033.3[facility] HermannHEMATOLOGY 2019-03-23 17:57:0088.1[facility] HxjwspmNRQDUWXALS9751-82-33 17:57:0014.2[facility] SyokhpoROEEQTEJBM6973-08-60 17:57:0042.6[facility] ZulktmvNSKZHNGVWK4151-76-87 17:57:004.84[facility] NrormjcWFWOFSEMZD2897-52-74 17:57:0011.2[facility] [place] CHEM YGMXU9711-40-65 08:05:005.1[facility] HermannCHEM DGTCF8188-28-48 08:05:001.7 [facility] ZsitzlhPQTCZKRUCSSW6734-98-29 08:05:0010.8[facility] HermannELECTROLYTES 2019-03-07 08:05:55423Mkrsaqfn AijdbfsVMFRTSGNHSPB4002-17-53 08:05:008.8[facility] ZyungolUWTPWZXYWDVA8292-88-27 08:05:0029[facility] RcsmjtoDTQEUHVSUQRU0075-89-65 08:05:51433Bbmwclsz RglvmhlSAQLOWEHJUVW3075-13-73 08:05:003.8[facility] [place] ICZKDTNVZEFB3960-25-50 08:05:0011[facility] WazyctgWSPPPOGQBLSC7878-14-73 08:05:00 0.78[facility] OxgvdhmQXDNWAOYIHTL3388-23-75 08:05:96201Ioezamza [facility] TGZEZFYCYJYK9480-49-00 08:05:92431Mxvlzcqt UrjempsSIPWGEHUHF1409-37-81 08:05:00 256[facility] ZjludnzBJIPXQEAZR3718-28-19 08:05:008.9[facility] HermannHEMATOLOGY 2019-03-07 08:05:0013.6[facility] EbllvioXYHPRHMMMG9026-99-02 08:05:0033.8[facility] GisiatyQFNLXFCIMG0868-29-77 08:05:0086.3[facility] BfoxgayTBBWYFSFYM6644-67-53 08:05:00* Test Item Value Reference Range Interpretation Comments MCH (test code = MCH) 29.2 pg 27.0-31.0 [facility] LfixlreNBBVYNGZIU3584-90-96 08:05:0013.5[facility] HermannHEMATOLOGY 2019-03-07 08:05:004.63[facility] TbmizndRWAAWMNICV1787-23-13 08:05:0039.9[facility] MinhuayCKDXLVNKWH9142-62-91 08:05:0010.0[facility] XamgkpfPFNBMDSIFG2590-46-29 08:05:000.1[facility] OspibvoJZHWQKNWWX0137-15-08 08:05:000.4[facility] AXZREYTIGD2631-19-85 08:05:004.4[facility] GiqxafmXVBYBNJZQR2383-99-98 08:05:002.7 [facility] EpoyvvvSKGLJARJPJ3407-93-09 08:05:000.7[facility] HermannHEMATOLOGY 2019-03-07 08:05:000.7[facility] MhbmmrzHLSJCLACFR0632-92-10 08:05:006.1[facility] FxhmqwrMPAJPDUHDZ0094-38-88 08:05:006.7[facility] ZqtkwypDSUFZDOOXI4918-31-49 08:05:0026.7[facility] OfgrpbcWYWZYLVZYO2871-77-22 08:05:0061.5[facility] CHEM ODYBR2654-29-95 10:30:004.2[facility] HermannCHEM QBHGC8966-65-44 10:30:001.8 [facility] HhnlfhfXGWFNDFKSTVX3723-64-53 10:30:004.0[facility] HermannELECTROLYTES 2019-03-06 10:30:47228Wajcrroy SrhmpcoAGJCVNDHPGVN4056-11-14 10:30:0026[facility] JkwftnbUAGVGVXEERBE6750-81-09 10:30:11461Vvxefhxd CprbjukSQAFDJVZEXEB2999-54-87 10:30:000.71[facility] ArwfimhQOEEGMOWFOSF5249-27-48 10:30:008.6[facility] TFDWRIKMBRZZ7115-24-32 10:30:06196Zfkrifou KylnvbxVMDXYKSFSBPZ3179-44-91 10:30:04289Znxzwphi HzxctvfQGIDYSJFBZKL5482-94-51 10:30:0011[facility] DUTAIYKKFCDQ1679-82-45 10:30:0011.0[facility] VsfzhniCBHXBFPBYC1688-53-79 10:30:00 4.7[facility] FtofqjyGHOUCYNZBG5761-35-67 10:30:0027.0[facility] HermannHEMATOLOGY 2019-03-06 10:30:007.3[facility] YmdntefWLMJEPYHTH3046-63-26 10:30:0059.8[facility] RhhejeyKYETSPNMIY7154-46-30 10:30:000.4[facility] WpyfqvzNOIOOYAWNI4298-02-04 10:30:002.3[facility] HztwxbvEXFDDDXHTB7693-92-54 10:30:000.6[facility] [place] ZMKOLABEPL9652-16-28 10:30:001.2[facility] XdwddzgQQMKCCCTGN1334-35-51 10:30:005.1 [facility] RfmutsiWSRQXRJDMO0056-86-40 10:30:000.1[facility] HermannHEMATOLOGY 2019-03-06 10:30:0037.4[facility] InskkmsGWBONQOLJI8451-67-12 10:30:008.5[facility] XcuuhgbMGOTESAVPN4819-36-81 10:30:004.32[facility] JuhtfklHJIRLZDJOK4342-75-50 10:30:0012.7[facility] ScpuyiyHRPOFDYWGH3977-81-05 10:30:0086.6[facility] [place] IBLJQEFCJE3582-60-48 10:30:008.7[facility] DiuiheaVLUVPUSVEB5092-58-65 10:30:29283 [facility] IdxwshuAPSSCBSXOU6353-80-23 10:30:00* Test Item Value Reference Range Interpretation Comments MCH (test code = MCH) 29.3 pg 27.0-31.0 [facility] FrbuiskOKQKLYWFTW9446-31-21 10:30:0033.9[facility] HermannHEMATOLOGY 2019-03-06 10:30:0013.7[facility] CqgpswzCINEJDOMNA0812-42-93 16:55:0017.8[facility] IzmiqvlTDLVLBCHBH8290-64-46 16:55:00* Test Item Value Reference Range Interpretation Comments Morenita Storey TND (test code = Chandanao Tr TND) 1300 1 [facility]annCHEM YSFAS5042-54-43 08:21:004.6[facility] HermannCHEM PANEL 2019-03-04 08:21:001.7[facility] SgoltqkLCLWAYHOTMFE7650-64-79 08:21:008.6[facility] CsvntquICFIOMXXTLBJ9543-06-75 08:21:87857Xgxructc TehnjvjFYPAZSWPLTXM7309-34-15 08:21:000.62[facility] JmrsmtbEVIFZFOXUXPS2936-37-19 08:21:003.6[facility] ZHLKLIWIFVBP5335-07-31 08:21:94614Oboaaepe FgueeycJSZUEXQKFVGD0386-47-10 08:21:67672Edtonjym PejjuvyVOQLGPETZBNI8907-50-92 08:21:0028[facility] [place] QPOUCBATVKAM0048-18-92 08:21:008.2[facility] QmflpyeAMAMEUJMNSBD6636-34-42 08:21:007[facility] OhofggnYVJXJWBRHSIJ6147-13-57 08:21:18537Ljvpjrxn [facility] NTLHWBDMSU1129-82-00 08:21:0012.5[facility] WmaddoePCSDKORTNO7397-05-54 08:21:00* Test Item Value Reference Range Interpretation Comments MCH (test code = MCH) 29.7 pg 27.0-31.0 [facility] IwotstqUDYYMHLXGR6786-01-81 08:21:0086.9[facility]annHEMATOLOGY 2019-03-04 08:21:0036.5[facility] HcycoowJFVKSFWQEK7794-80-98 08:21:96342Fdscesag QrpwgnzUWXYNNTXRH9262-11-18 08:21:0013.9[facility] RojrrsdPRPEKYKHIA4778-48-03 08:21:008.9[facility] OebdqynZBVZSDGOHW6352-35-66 08:21:009.0[facility] WQMFYMCOTP6924-75-77 08:21:0034.2[facility] GtkqbsmWKFIYDLWBU8543-70-61 08:21:00 4.20[facility] LfqpbvxZHCOIODJLJ1376-66-99 08:21:005.2[facility]annHEMATOLOGY 2019-03-04 08:21:002.6[facility] UxuouufXNDVZBXAHQ0664-49-04 08:21:000.8[facility] PopdjeaZLJGPIUQXE3308-97-76 08:21:000.4[facility] NgzppdhNESOMRQTVY5794-09-09 08:21:0057.6[facility] YlbvbagJDAVDJKQQI2229-57-84 08:21:0028.4[facility] KJFTVTEZEX5580-85-87 08:21:008.8[facility] KwslapaOVBOLXGCNG8610-92-42 08:21:004.1 [facility] TcxponcFDVLJVLWWF3631-89-09 08:21:001.1[facility]annHEMATOLOGY 2019-03-04 08:21:000.1[facility] HermannCIPROFLOXACIN:SUSC:PT:ISOLATE:ORDQN:MONISHA 2019-03-02 22:15:00Staphylococcus aureusMemorial WlgboqkDVMCWNIIPT0675-18-79 16:54:00* Test Item Value Reference Range Interpretation Comments Morenita WADE (test code = Morenita WADE) 1300 1 [facility] RtxpwqoCZBDNKZZMG5288-34-97 16:54:0014.7[facility]annURINE AND STOOL 2019-03-01 21:13:00Negative (03/01/19 4:13 PM)[facility] STOOL 2019-03-01 21:13:00Negative (03/01/19 4:13 PM)[facility]OL 2019-03-01 21:13:0087[facility] AND VIFEA4886-95-28 21:13:003[facility] AND CJDXZ8159-30-54 21:13:00* Test Item Value Reference Range Interpretation Comments UA pH (test code = UA pH) 7.0 1 5.0-8.0 [facility] NZBDW6859-30-81 21:13:00Large *ABN*(03/01/19 4:13 PM) [facility] FHRPQ1222-29-02 21:13:00Negative *NA*(03/01/19 4:13 PM) [facility] LDVYT4161-99-64 21:13:00* Test Item Value Reference Range Interpretation Comments UA Spec Grav (test code = UA Spec Grav) 1.010 1 [facility] SZLKE3416-92-78 21:13:00Slight *ABN*(03/01/19 4:13 PM) [facility] WWIKL1834-66-28 21:13:00Yellow *NA*(03/01/19 4:13 PM) [facility]annCHEM AKEKY5101-91-22 08:18:003.4[facility]annCHEM PANEL 2019-03-01 08:18:007.2[facility]annCHEM QIIXY2906-47-40 08:18:0086[facility]annCHEM HGDCL1512-76-14 08:18:000.5[facility]annCHEM SGNSG8234-04-92 08:18:0012[facility]annCHEM XYCRK0875-89-87 08:18:0020[facility]annCHEM SJMWX1805-74-08 08:18:00* Test Item Value Reference Range Interpretation Comments A/G Ratio (test code = A/G Ratio) 0.9 1 0.7-1.6 [facility]annCHEM ATNCB6720-76-30 08:18:00* Test Item Value Reference Range Interpretation Comments B/C Ratio (test code = B/C Ratio) 16 1 6-25 [facility]annCHEM RQJSX3742-60-41 08:18:003.8[facility]annHEMATOLOGY 2019-03-01 08:18:00* Test Item Value Reference Range Interpretation Comments INR (test code = INR) 1.14 1 0.85-1.17 [facility] TplengsULEOVNYXBH3984-53-12 08:18:00* Test Item Value Reference Range Interpretation Comments PTT (test code = PTT) 38.3 s 22.9-35.8 [facility] EkpspzqKECPIMFFGC4423-08-48 08:18:00* Test Item Value Reference Range Interpretation Comments PT (test code = PT) 14.4 s 12.0-14.7 [facility]annCHEM OXDDJ9193-69-68 04:02:001.4[facility]annENDOCRINOLOGY 2019-03-01 04:02:00<1[facility] XwtaeryESOISYBMJP5315-60-04 00:33:0010.8[facility] KneuaegBYVDNEEXZA3438-17-12 00:33:00* Test Item Value Reference Range Interpretation Comments Chandanaisaiah [place] TND (test code = Vanco Tr TND) 2000 1 [facility]annBACTERIAL - ARIBOOMJ5174-48-82 16:23:00Negative (01/30/19 11:23 AM)[facility] TbrdiinXBNUGPXCQP6675-61-99 18:29:0018.9[facility] HermannTOXICOLOGY 2019-01-29 18:29:00* Test Item Value Reference Range Interpretation Comments Morenita Storey TND (test code = Vanco Tr TND) 1330 1 [facility] PckmdnbFSRFGEGDZR1516-58-13 08:44:00* Test Item Value Reference Range Interpretation Comments MCH (test code = MCH) 28.5 pg 27.0-31.0 [facility] HuxqalxLSAATJLYCF0439-34-75 08:44:0087.8[facility] HermannHEMATOLOGY 2019-01-29 08:44:0038.5[facility] UsqmsuzSYMQPIDOEN6365-55-68 08:44:0012.5[facility] QfrsxcwAMAIOPJVTN3404-29-12 08:44:004.38[facility] VhqgytfGOJFOADSQF8698-66-10 08:44:21176Unyjwjmd SmjyforKFPHBHHAZL5115-45-68 08:44:0032.5[facility] RMTVPCNJXV3267-29-60 08:44:008.5[facility] YbmtuqzUWOOPJNUOV5553-42-22 08:44:00 13.5[facility] KqpsqmcTGGJVIRSEG7251-56-94 08:44:008.1[facility] HermannTOXICOLOGY 2019-01-28 17:25:0018.3[facility] MmoedkxQMOCCIGVOA4204-48-18 17:25:00* Test Item Value Reference Range Interpretation Comments Morenita Tr TND (test code = Vanco Tr TND) 1230 1 [facility]annCEFEPIME:SUSC:PT:ISOLATE:ORDQN:VMK6993-60-52 00:35:00 Staphylococcus aureusMemorial HermannCEFEPIME:SUSC:PT:ISOLATE:ORDQN:MONISHA 2019-01-28 00:35:00Klebsiella pneumoniae ssp pneumoniaeMem[facility] CEFEPIME:SUSC:PT:ISOLATE:ORDQN:TAW8719-04-96 00:35:00Proteus mirabilisMemorial HermannURINE AND BIYNL0260-96-68 11:31:00Negative (01/27/19 6:31 AM)[facility] FCEBA2476-68-21 11:31:002[facility]UR[facility] AND STOOL 2019-01-27 11:31:005[facility]UR[facility] AND JWLZK9882-91-21 11:31:00* Test Item Value Reference Range Interpretation Comments UA pH (test code = UA pH) 6.0 1 5.0-8.0 [facility] AND MRPLW4807-67-43 11:31:00Yellow *NA*(01/27/19 6:31 AM) [facility] CSNTK0470-80-46 11:31:00* Test Item Value Reference Range Interpretation Comments UA Spec Grav (test code = UA Spec Grav) 1.028 1 [facility] AND ZNBTY9019-84-83 11:31:00Slight *ABN*(01/27/19 6:31 AM) [facility] CNVPQ5425-56-73 11:31:00Negative (01/27/19 6:31 AM) [facility] UYRBV2653-08-41 11:31:00Negative *NA*(01/27/19 6:31 AM) [facility] YMDZU6929-27-33 11:31:00Negative (01/27/19 6:31 AM) [facility] TSYS7762-54-20 11:31:00Negative (01/27/19 6:31 AM)[facility] IAGXA8940-99-86 08:45:001.5[facility]CHE[facility] BSGIG9928-80-31 08:08:00* Test Item Value Reference Range Interpretation Comments B/C Ratio (test code = B/C Ratio) 19 1 6-25 [facility] RKQBC7399-18-87 08:08:003.9[facility]annCHE[facility] PANEL 2019-01-27 08:08:00* Test Item Value Reference Range Interpretation Comments A/G Ratio (test code = A/G Ratio) 0.9 1 0.7-1.6 [facility] MDUFV8707-34-90 08:08:0013.9[facility]annCHE[facility] PANEL 2019-01-27 08:08:97843Evqrlzfa HermannCHEM RLYWL7536-71-81 08:08:0018[facility] GOMPN5502-98-13 08:08:0092[facility] YSVND7712-45-56 08:08:003.9[facility]CHE[facility] PENIB9176-59-78 08:08:000.3[facility]CHE[facility] UNSJV3564-12-54 08:08:003.6[facility] OMABH2999-25-40 08:08:0024 [facility] ULNIR1929-62-36 08:08:007.5[facility]annCHEM PANEL 2019-01-27 08:08:00789Rsndgrbj HermannCHEM TYBJZ5392-52-52 08:08:0024[facility]CHE[facility] NVDWE5060-35-64 08:08:56145Iqdlqfhr HermannCHEM KJHZQ2600-33-10 08:08:008.5[facility] SXYFC9177-73-86 08:08:0014[facility]CHE[facility] WJABR5276-43-80 08:08:000.75[facility]annCHE[facility] AAEWM1284-77-33 08:08:0091 [facility] UsrelkaDXZPXYLGQS1632-74-32 08:08:006.5[facility]annHEMATOLOGY 2019-01-27 08:08:008.1[facility] QtzyxgkDFBIGJZRLP9330-27-91 08:08:000.9[facility] FuvbxubVTJOUVBYPM1665-63-24 08:08:002.9[facility] GjybvobVSZLVEVHZC8566-58-67 08:08:007.4[facility] VacysmnURGJBXFDUC8095-62-90 08:08:001.0[facility] BMGFUKCRQY6011-93-20 08:08:000.8[facility] KmugaiwJUEMCWAFIL4174-13-65 08:08:000.1 [facility] ElvhbbsLZDMYKMEQH6794-37-73 08:08:0023.6[facility]annHEMATOLOGY 2019-01-27 08:08:0060.9[facility] JwtmypvOWQZPGQZYX7374-51-03 08:08:0012.2[facility] HshkqduRBFLZJVTGC5644-79-48 08:08:0032.4[facility] AvczliiYOKACUEBFY3092-52-36 08:08:0013.7[facility] ZcdvjdnBRMRVWZXAX2919-23-99 08:08:00* Test Item Value Reference Range Interpretation Comments MCH (test code = MCH) 28.5 pg 27.0-31.0 [facility] QjyixozBZBPHFHMYX5029-05-14 08:08:0088.2[facility]annHEMATOLOGY 2019-01-27 08:08:0041.4[facility] AztosfmBJJKZCYJHC9389-71-84 08:08:004.69[facility] TprfrdfCGRXRSBBFU2065-71-92 08:08:0013.4[facility] XunfmkvBZKUFISGQJ8787-67-59 08:08:008.8[facility] JukdziiVNXITYINCR6786-75-48 08:08:96604Kyqdaqvw HermannCHEM LLUQH8358-16-17 01:46:001.0[facility] UfokqleVPKENGOGUPNQ3348-05-95 01:46:38491 [facility] LcueiztRFXVFFALUPYL0193-41-36 01:46:001.04[facility]annELECTROLYTES 2018-12-13 01:46:0071[facility] GtbytngNWHSQXHQXFDM4663-68-84 01:46:0088[facility] YwptnbqAKRFSWNUTBLL2059-37-99 01:46:003.4[facility] CgbtedfIXSATSUCRJIX0947-83-65 01:46:0015[facility] GctjrwkREIXOYCIPPJZ8924-90-98 01:46:0079[facility] QQPDHGYOBQGW3098-03-87 01:46:003.2[facility] NvoendqGCKOVBYINYSE6200-20-38 01:46:0015[facility] NopnbrtZLVQLUBUBNQN5536-05-04 01:46:000.2[facility] EJQBFNTKHTUT0133-23-73 01:46:0024[facility] JuzwxnvGQOTKYGCIPDG8056-56-07 01:46:00 105[facility] RkimfcsYAHWFODLIDSX2022-29-02 01:46:0029[facility]annELECTROLYTES 2018-12-13 01:46:008.8[facility] DuyuenpYGQPNLYZTQLC8729-81-94 01:46:007.7[facility] CrfzkobZRBXNOWNVEIV7926-34-31 01:46:00* Test Item Value Reference Range Interpretation Comments B/C Ratio (test code = B/C Ratio) 14 1 6-25 [facility] QsysilrZHDQRUWHRSKZ4112-87-89 01:46:009.4[facility]annELECTROLYTES 2018-12-13 01:46:00* Test Item Value Reference Range Interpretation Comments A/G Ratio (test code = A/G Ratio) 0.7 1 0.7-1.6 [facility] ErafqtnSONDAREQMADC9736-54-39 01:46:004.5[facility]annHEMATOLOGY 2018-12-13 01:46:000.1[facility] MpicuvxRLJIJNSQAU4459-79-12 01:46:002.6[facility] ObzwhktBZSPYSAOZM0790-61-92 01:46:000.8[facility] KwukaewTDDMIKADJA2647-73-63 01:46:000.5[facility] VftdrvbNINNEHBTTH4202-16-55 01:46:004.0[facility] DPXTYBWESH6587-69-59 01:46:007.1[facility] TzkaabmOYVNXVFWJM2050-27-64 01:46:00 22.7[facility] ZlkhrbfXDOPYARMVM8799-39-04 01:46:001.2[facility]annHEMATOLOGY 2018-12-13 01:46:007.3[facility] UvnrsgwPRJOMMGXOK0282-77-78 01:46:0065.0[facility] LakbpidTSUFREBZQG9434-11-18 01:46:0013.3[facility] EbwmneoHRZKMQSCRB9808-89-23 01:46:0033.7[facility] XdqnqigBCXZPLWVPP0109-77-43 01:46:20602Fydcgfuw [facility] MQVIZTDIKI2123-54-90 01:46:007.7[facility] HxddmgvFYWEEGJWUJ8719-87-14 01:46:00 4.45[facility] UvpjniaTMRSENJZJT5860-05-89 01:46:00* Test Item Value Reference Range Interpretation Comments MCH (test code = MCH) 28.9 pg 27.0-31.0 [facility] YtqfubgDKMTXTDGZH7664-50-28 01:46:0085.7[facility]annHEMATOLOGY 2018-12-13 01:46:0011.3[facility] OdprqenCIOQEWPMLD6203-17-63 01:46:0012.9[facility] TtugndeGSTRVHVHJF6680-33-06 01:46:0038.1[facility] IadricqTXJLMIXIHR9115-21-33 01:04:00* Test Item Value Reference Range Interpretation Comments Morenita Storey TND (test code = Morenita Tr TND) 2100 1 [facility] CuycxcgKSNXHTAZHE1912-90-11 01:04:0016.7[facility]annCHEM PANEL 2018-12-08 08:20:0093[facility]annCHEM VYQCL6952-87-41 08:20:85675Szvutenx HermannCHEM UOMQA4332-24-65 08:20:000.83[facility]annCHEM DTOVL2445-35-33 08:20:006[facility]annCHEM NLHDL7327-93-38 08:20:0098[facility]annCHEM BGQTG6693-06-96 08:20:0029[facility]annCHEM ESYZX4761-89-31 08:20:07865 [facility]annCHE[facility] OOVDD6398-78-30 08:20:003.8[facility]annCHEM PANEL 2018-12-08 08:20:008.8[facility]annCHEM QNSOP6149-81-94 08:20:0011.8[facility] EwnwgmeHCGXDSPRVN5862-10-96 08:20:008.5[facility] NlzvsqcPOQPSZZYEO7255-42-89 08:20:0061.1[facility] SppjhhaXXZVKHQLIG3814-04-72 08:20:005.9[facility] STLVURHOOI5657-37-32 08:20:0023.5[facility] EfwfuvdVLBQVKKMVQ1651-90-70 08:20:00 0.1[facility] OooavgxXQABKCNOUK1263-91-17 08:20:000.6[facility]annHEMATOLOGY 2018-12-08 08:20:000.8[facility] ZpyfbsmUBULQIYNHO3060-08-53 08:20:002.3[facility] GnjjtzpKUWKYPQYNH4654-76-14 08:20:001.0[facility] BtvhtyhOXZSRXXPJJ0070-00-78 08:20:006.0[facility] QpfjzvzXUWXASFROM2847-15-47 08:20:007.8[facility] HSEYDKLNSW3721-01-81 08:20:20673Jqsrxpdc NfonamcWCTIQEKTYJ6756-54-03 08:20:00 13.1[facility] XubnlaxKJRMXANVHO9873-26-88 08:20:0033.6[facility]annHEMATOLOGY 2018-12-08 08:20:0035.3[facility] QgjtjjgZOXNWBXAWR1643-90-85 08:20:0086.2[facility] LtbioqwKPADVKXATH8833-93-62 08:20:009.7[facility] AtbvmbuLVUTPWNALT8146-94-79 08:20:00* Test Item Value Reference Range Interpretation Comments MCH (test code = MCH) 28.9 pg 27.0-31.0 [facility] IktwkweRRLCRISZQL1253-36-90 08:20:004.10[facility]annHEMATOLOGY 2018-12-08 08:20:0011.9[facility] IpvdjvbOXYUMYHIQS2176-84-35 17:03:0015.3[facility] GkdropsGNVPHDJHYPEK3629-57-04 08:16:009.8[facility] FonyhiwIRWQTTZTBFJJ1432-49-28 08:16:21224Zhhmdcro WxaycexGEUNBWEFGDJB6418-36-82 08:16:70021Ndfzijqs [facility] NRGFRCCKWFHE3813-73-71 08:16:003.8[facility] LpjgonnZRHBAXMAEZIB0435-91-03 08:16:008.1[facility] IknfggsVJQLYOPEQJWO8165-00-02 08:16:0031[facility] LXJXMWLFLTMZ7204-82-95 08:16:87444Wpwrmptu GvhbiyvCENYQIKGGAZL2143-22-00 08:16:000.69[facility] ZihofdcVZEHLSPRITFB0168-00-12 08:16:006[facility] GSGBZAFTPUTB4708-39-83 08:16:46718Roripvpt KblqchlWAZQNCJKRJ0725-03-38 08:16:00 87.1[facility] JtiozhiMQRFDTEFMP3344-81-95 08:16:0034.8[facility]annHEMATOLOGY 2018-12-07 08:16:00* Test Item Value Reference Range Interpretation Comments MCH (test code = MCH) 28.8 pg 27.0-31.0 [facility] IzfjdvkVOAEQGVDIY7924-65-30 08:16:0011.5[facility]annHEMATOLOGY 2018-12-07 08:16:007.7[facility] YxgbvocNILICXKTJF5559-85-55 08:16:0013.3[facility] OtoqcguOTWNGFOFFA9753-74-61 08:16:0033.1[facility] GtbgmslALXNUNQPLM2811-27-54 08:16:62932Ciwqzwyp NdkvzqyKTOTUKVAMW2319-43-51 08:16:004.00[facility] YGKMYJEAZC8188-14-03 08:16:009.8[facility] NpepptqEBUPTHQBUY7355-90-33 08:16:000.8 [facility] RayxqpeIJORGCITXG6091-21-91 08:16:000.6[facility]annHEMATOLOGY 2018-12-07 08:16:000.1[facility] RcvoebwMLKTQPIWUJ1730-11-85 08:16:0061.0[facility] ZbodkigEFEQRQUAJE3791-69-76 08:16:007.8[facility] CinbcmrRWJNAEVJKJ4087-56-90 08:16:001.1[facility] RudxhmiEGBEYTJRNS6428-22-91 08:16:006.5[facility] PNFFFRUJPM6317-80-78 08:16:0023.6[facility] NexqsixNYDBJZBHSI3144-90-44 08:16:00 2.3[facility] JkrjomuIQYIWQTADV5262-66-26 08:16:006.0[facility] AMPICILLIN+SULBACTAM:SUSC:PT:ISOLATE:ORDQN:MLW7854-48-74 17:32:00Staphylococcus aureusMemorial LmehptwZLRQTOXTCW7210-14-46 14:55:00* Test Item Value Reference Range Interpretation Comments Morenita WADE (test code = Morenita WADE) 0930 1 [facility] QlpvekfVPKGKMURQZ6234-93-64 14:55:0014.8[facility] HermannCHEM PANEL 2018-12-06 07:45:17719Dgxahnjx HermannCHEM WAFVU2712-63-27 07:45:008[facility]annCHEM HUSLZ5368-37-34 07:45:000.49[facility]annCHEM TFQXZ0202-58-07 07:45:008.2[facility]annCHEM CDUFI3899-08-26 07:45:003.8[facility] HermannCHEM KXFSZ4096-44-43 07:45:82672Kxyfjaob HermannCHEM KOKXU6144-29-70 07:45:34683 [facility]annCHEM CKEFD1054-47-33 07:45:0027[facility]annCHEM PANEL 2018-12-06 07:45:0099[facility]annCHEM ONBBU1368-75-67 07:45:009.8[facility] CwgugfqMVVCCZJCIA5552-75-30 07:45:000.1[facility] JxtpohbHYFDZWPNWE7282-74-02 07:45:001.0[facility] FagtyvaIYGDCGSNTK9231-38-57 07:45:002.1[facility] HHJAAUGAMC9736-48-45 07:45:004.8[facility] GbmbiiwPKVOIEWKFM4695-25-28 07:45:000.5 [facility] OmqetbwROEKRVAXFP3322-73-59 07:45:000.8[facility] HermannHEMATOLOGY 2018-12-06 07:45:009.8[facility] JfykkjkYTEAWBGGFI6319-94-79 07:45:0025.0[facility] EohctwtADJIBONXZU7404-06-99 07:45:006.3[facility] QdzjotrOCTJVPYQLI8541-15-31 07:45:0057.9[facility] QakjmugEQVSTVYUGO6918-05-27 07:45:00* Test Item Value Reference Range Interpretation Comments INR (test code = INR) 1.09 1 0.85-1.17 [facility] YwpmvmnNAJWVMQGAW9629-04-70 07:45:00* Test Item Value Reference Range Interpretation Comments PT (test code = PT) 13.9 s 12.0-14.7 [facility] IcsrmnyYAUDTZMTXX7992-89-05 07:45:008.3[facility]annHEMATOLOGY 2018-12-06 07:45:0013.2[facility] UlqwyqrWDUKNLCMXI8317-51-87 07:45:0033.0[facility] KtyouypXPRHVSEGSJ6019-87-13 07:45:88560Xoigzwhs IimwmmsNCBXNZZGHL0392-78-14 07:45:003.96[facility] YbzqunaAHXWXGMXNJ9406-24-89 07:45:008.4[facility] XNDGKRKHRT7013-30-40 07:45:00* Test Item Value Reference Range Interpretation Comments MCH (test code = MCH) 28.6 pg 27.0-31.0 [facility] ZouckgsMQIOPMUEQD6146-37-01 07:45:0086.6[facility]annHEMATOLOGY 2018-12-06 07:45:0011.3[facility] KgmshocFNNTCDVUYE3186-54-51 07:45:0034.3[facility] VarphrhRXUPDXZTCT8275-41-91 05:49:0015.3[facility] HermannCHEM IJNGO9146-68-29 06:52:001.9[facility]annCHEM UPDJI9208-14-36 06:52:000.7[facility]CHE[facility] NMYIK5273-99-82 06:52:0072[facility]annCHEM GIPSM7931-66-62 06:52:006.9 [facility]CHE[facility] AUNQT0801-91-30 06:52:0013[facility]annCHEM PANEL 2018-12-04 06:52:0029[facility]annCHEM HKDKB0244-60-35 06:52:002.8[facility] HermannCHEM ZCRAH8529-84-05 06:52:004.1[facility] HermannCHEM HLPTH7951-56-53 06:52:00* Test Item Value Reference Range Interpretation Comments A/G Ratio (test code = A/G Ratio) 0.7 1 0.7-1.6 [facility]2019-04-20 06:52:00* Test Item Value Reference Range Interpretation Comments B/C Ratio (test code = B/C Ratio) 14 1 -25 [facility]vbzzdcDCXFGVKBCT5202-13-22 06:52:00* Test Item Value Reference Range Interpretation Comments PTT (test code = PTT) 44.5 s 22.9-35.8 [facility] NorthwestMlbtpoyQCMINADYND3175-26-15 06:52:00* Test Item Value Reference Range Interpretation Comments PT (test code = PT) 16.0 s 12.0-14.7 [facility] NorthwestKhtahssGLDUBLEAKM3529-41-30 06:52:00* Test Item Value Reference Range Interpretation Comments INR (test code = INR) 1.31 1 0.85-1.17 [facility]annCOMMUNITY HEALTHXFQIR9214-32-89 02:50:001.1[facility]annCHEM [facility] 2018-12-03 21:23:000.7[facility] CenterVwdwmuvRRYBGNNQFXHTI3301-05-47 21:23:00Negative *NA*(12/03/18 4:23 PM)[facility]annCHEM IEDXM7484-14-32 07:12:001.0[facility]annCHEM OEOGE0168-31-66 03:34:00* Test Item Value Reference Range Interpretation Comments B/C Ratio (test code = B/C Ratio) 19 1 6-25 [facility]annCHEM ORBDK8242-52-63 03:34:009.8[facility]annCHEM PANEL 2018-10-11 03:34:004.5[facility]annCHEM RMVAC4748-25-46 03:34:00* Test Item Value Reference Range Interpretation Comments A/G Ratio (test code = A/G Ratio) 0.8 1 0.7-1.6 [facility]annCHEM DEGZC1611-87-74 03:34:0093[facility]annCHEM PANEL 2018-10-11 03:34:0024[facility]annCHEM RRSOP1933-64-92 03:34:0017[facility]annCHEM VBWEM6277-29-55 03:34:0081[facility]annCHEM TSDGD7511-03-11 03:34:000.3[facility]annCHEM NURZN1988-64-89 03:34:000.83[facility]annCHEM ALAUL1608-35-71 03:34:0084[facility]annCHEM XXIEM6902-83-80 03:34:0016 [facility]annCHEM SVQXP2529-75-56 03:34:003.8[facility]annCHEM PANEL 2018-10-11 03:34:32983Tzqfkaxz HermannCHEM IJMTX3728-52-62 03:34:0026[facility]annCHEM VSHJH6721-53-96 03:34:008.5[facility]annCHEM LYLHJ1744-41-73 03:34:34669Hoirydzr HermannCHEM GTNNL9742-76-60 03:34:008.0[facility]annCHEM CFOAO3302-91-98 03:34:003.5[facility] YmgtlulJVATJJNAFH8395-10-23 03:34:000.8 [facility] TyvbyciCNIBNQCAJG3653-43-36 03:34:000.1[facility]annHEMATOLOGY 2018-10-11 03:34:000.3[facility] MxekwwqIZPLQXYLZO0715-17-05 03:34:007.7[facility] XemcbjnUGOLSQHATE8505-13-05 03:34:003.0[facility] UnnohfzKRYAVNVKDB4598-99-51 03:34:000.6[facility] MbhjkhtTVXDNVAKHG5247-60-96 03:34:006.8[facility] KSRKHOMARD9536-83-91 03:34:002.4[facility] WiwfebuQFEFQFISZZ7149-93-05 03:34:00 22.9[facility] XjfrazkWVIPLCIXHI1718-65-13 03:34:0065.8[facility] HermannHEMATOLOGY 2018-10-11 03:34:0013.3[facility] HwsadavDXTQMFHZYD4754-18-83 03:34:0032.5[facility] YlxhknpWRUTEXNJCU3249-26-30 03:34:00* Test Item Value Reference Range Interpretation Comments MCH (test code = MCH) 28.8 pg 27.0-31.0 [facility] FpxrtrpFYRQNRATPT2248-29-63 03:34:0042.6[facility]annHEMATOLOGY 2018-10-11 03:34:0013.8[facility] JqebztwHCXGVDGDHD4836-46-71 03:34:0010.3[facility] WnefxktKRMFJJDNSP7979-19-62 03:34:0088.5[facility] JftwdwbBJGPQAETOG8454-71-88 03:34:004.81[facility] DlfxhinDUXGHCOOEV8541-69-11 03:34:66479Tzvsjxsz [place] WWAJGQGSPF9655-79-25 03:34:008.7[facility] HEAD/BRAIN W/O CONT 2018-09-23 11:52:00 Name: COLLEEN JOHNSON [facility] : 1985 Age/S: 32 / F [address] [facility] Unit #: [id number] Loc: [place] [address] Phys: Sergio Ellis MD Acct: [id number] Dis Date: Status: REG ER PHONE #: [phone] Exam Date: 09/23/2018 1144 FAX #: [phone] Reason: numbness right side of face EXAMS: CPT CODE: [id number] CT HEAD/BRAIN W/O CONT 05758 HISTORY: Numbness to the right side. COMPARISON: [...] (1152) t.[id number].[email or web address] Orig Print D/T: S: 09/23/2018 (8895) CTDI: DLP: PAGE 1 Signed Report CHEM ORYYY3667-99-20 06:46:001.5[facility] HermannCHEM FKGJR9871-99-73 06:46:000.5[facility]annCHEM BMAWA4709-00-42 06:46:0015 [facility]annCHEM EKCYX5786-53-29 06:46:0074[facility]annCHEM PANEL 2018-09-06 06:46:0072[facility]annCHEM WUEOT6592-71-25 06:46:001.03[facility] HermannCHEM HEFIO5849-73-04 06:46:08707Vguviinf HermannCHEM CAIVS0056-05-07 06:46:003.6[facility] HermannCHEM IFIQP4599-29-75 06:46:007.4[facility]annCHEM QHYAE0235-00-46 06:46:003.3[facility]annCHEM ADVNL3211-69-07 06:46:0027 [facility]annCHEM JLKXP0203-55-92 06:46:79883Aqtuntok HermannCHEM PANEL 2018-09-06 06:46:0011[facility]annCHEM NNVGG7497-79-82 06:46:008.3[facility] HermannCHEM MFAYI9807-13-22 06:46:37879Rnfsrfss HermannCHEM VJXSX1529-93-88 06:46:0024[facility]annCHEM DUXOT3680-81-78 06:46:00* Test Item Value Reference Range Interpretation Comments A/G Ratio (test code = A/G Ratio) 0.8 1 0.7-1.6 [facility]annCHEM MTLRU9586-01-46 06:46:0010.6[facility]annCHEM PANEL 2018-09-06 06:46:00* Test Item Value Reference Range Interpretation Comments B/C Ratio (test code = B/C Ratio) 11 02-08 [facility]annCHEM UWMTL6671-67-92 06:46:004.1[facility] HermannCHEM PANEL 2018-09-06 06:46:33727Wdtgqmzd NbybkrqQHCXIHRTWOULG2005-49-33 06:46:00Negative *NA*(09/06/18 12:46 AM)[facility] AuwnqrcYREUXUBXHN6401-90-98 06:46:73583Ufayqawb IlldvqtOUIBGQLVQL0868-04-24 06:46:008.3[facility] RgyhbzfMWAGVCYVKQ4134-76-97 06:46:0033.1[facility] JjklvtvQJGSUVQRKF2220-58-42 06:46:0013.7[facility] EEARNILXIW0727-98-98 06:46:00* Test Item Value Reference Range Interpretation Comments MCH (test code = MCH) 28.5 pg 27.0-31.0 [facility] ErazbwbUSHQCWHYND9457-78-04 06:46:004.70[facility] HermannHEMATOLOGY 2018-09-06 06:46:0013.4[facility] BbbulffFTEKHIIJHS2469-28-88 06:46:0012.6[facility] DxctrpxWWUNDQPBQT6811-02-29 06:46:0040.5[facility] VlhldaiSUVRCZUICE0551-37-34 06:46:0086.2[facility] ErhagkoXGKOOBTZNT8118-72-65 06:46:000.1[facility] WYVFZHONKL5653-27-00 06:46:000.4[facility] MizimziWIMHZGGZGZ9571-61-06 06:46:000.8 [facility] RckfkqlNWZLTOFHDY2491-74-10 06:46:008.4[facility] HermannHEMATOLOGY 2018-09-06 06:46:002.9[facility] OecvfyqIOXXLJPTAN6682-52-42 06:46:003.6[facility] CguyztaATXBRBYXGN6043-71-23 06:46:000.7[facility] JytjxjvPUPPZWJVYC2961-08-62 06:46:0022.9[facility] HxrxadfNNQNSMTLWT1217-11-79 06:46:006.3[facility] ZWSDKCITXV1102-16-72 06:46:0066.5[facility] HermannURINE AND HGSUQ4780-21-87 06:46:00Negative (09/06/18 12:46 AM)[facility]annUR[facility] AND ARHGK2426-27-89 06:46:65829Gnpnpnee HermannURINE AND WPBHL4945-86-77 06:46:003[facility] URINE AND YDQOR6900-85-44 06:46:00Negative *NA*(09/06/18 12:46 AM)[facility]annUR[facility] AND OTRTO6722-76-00 06:46:00Slight *ABN*(09/06/18 12:46 AM)[facility]annUR[facility] AND PLRCO7999-66-09 06:46:00Yellow *NA*(09/06/18 12:46 AM)[facility]annUR[facility] AND WJFWY4479-59-70 06:46:00* Test Item Value Reference Range Interpretation Comments UA Spec Grav (test code = UA Spec Grav) 1.023 1 [facility]annUR[facility] AND VWCGR4653-08-66 06:46:00Negative (09/06/18 12:46 AM) [facility] IPHDM4081-06-08 06:46:00* Test Item Value Reference Range Interpretation Comments UA pH (test code = UA pH) 5.0 1 5.0-8.0 [facility] DAUQQ2791-29-59 06:46:00Negative (09/06/18 12:46 AM) [facility] AND FQOVZ6824-28-65 06:46:00Negative *NA*(09/06/18 12:46 AM)[facility] AND PUSVE3997-22-36 06:46:00Negative *NA*(09/06/18 12:46 AM)[facility] AND MREVE0173-10-66 06:46:00Large *ABN*(09/06/18 12:46 AM)[facility] HermannCHEM EULLX8435-15-10 10:22:001.9[facility] HermannELECTROLYTES 2018-08-28 10:22:0011.1[facility] NflmbyjFKDGOGSHQDJU2954-24-53 10:22:64888 [facility] TxsdkwrKHDXINIJIZDT2268-71-40 10:22:008.4[facility] HermannELECTROLYTES 2018-08-28 10:22:0013[facility] LqlptfuSQZXHZNPORFR3064-46-76 10:22:08222Eilklutc TyvxyosOADYXMWAEEOC0664-49-04 10:22:000.69[facility] PxzmyaqLWXVNTHBUBDZ0342-42-40 10:22:004.1[facility] EyssjagEJUISWAZCKIV0083-23-26 10:22:0025[facility] DFNUQINZLOFH1052-92-78 10:22:35792Hrgbxrpc UjhznvrJEGLRAZZJRWG1272-31-26 10:22:49502Tvahtwbl YbowzkgOMVQFZAAWY7123-77-01 10:22:00* Test Item Value Reference Range Interpretation Comments INR (test code = INR) 1.01 1 0.85-1.17 [facility] ZdhlksnRVMYEKJSYD3469-24-34 10:22:00* Test Item Value Reference Range Interpretation Comments PTT (test code = PTT) 33.7 s 22.9-35.8 [facility] MnarsekYXOLUTABEG2833-72-37 10:22:00* Test Item Value Reference Range Interpretation Comments PT (test code = PT) 13.1 s 12.0-14.7 [facility] PgjkvajELPJXTWSEC5913-96-28 10:22:0026.9[facility] HermannHEMATOLOGY 2018-08-28 10:22:002.1[facility] WilrjlwEFBEJGABYT0354-91-43 10:22:006.7[facility] UgnstwaKJNGDVAUJL3504-40-39 10:22:009.3[facility] OhnluwkXYPZSYCCWR0946-08-73 10:22:0056.2[facility] UxxizwhACOQQRSHDG4976-55-67 10:22:000.7[facility] YESVVRLJQW1742-69-04 10:22:000.5[facility] JbgmcdzSTUWMUCHEX7038-41-64 10:22:004.3 [facility] KsntbyiTCDODZGKNU3856-64-79 10:22:000.9[facility] HermannHEMATOLOGY 2018-08-28 10:22:000.1[facility] OaugmcyQRPTNBYITC6730-10-17 10:22:008.1[facility] IayariaWIOBNGTEXZ2792-88-48 10:22:0013.4[facility] DczctuaEICVJDYNVM2520-77-46 10:22:74666Bgwpfpco MhwihxeEWZXNGNSXM1217-82-70 10:22:0033.2[facility] GVOYRBAOSR7920-96-13 10:22:0087.4[facility] RtcckhgFFTWUMXEAH4174-28-65 10:22:00* Test Item Value Reference Range Interpretation Comments MCH (test code = MCH) 29.0 pg 27.0-31.0 [facility] WhpsfiqWICCHSMOAC0211-96-34 10:22:0041.5[facility] HermannHEMATOLOGY 2018-08-28 10:22:007.7[facility] LundpdjLYWDERJNVC7349-39-74 10:22:004.74[facility] MrvefqcSADRAIUKOO9746-02-69 10:22:0013.8[facility] QdkizxuMEAMZTLWKP7920-47-20 05:09:00* Test Item Value Reference Range Interpretation Comments PT (test code = PT) 12.9 s 12.0-14.7 [facility] HoolprcXIHRSIFASZ4360-66-25 05:09:00* Test Item Value Reference Range Interpretation Comments INR (test code = INR) 0.99 1 0.85-1.17 [facility] HermannCHEM ODHUY8872-84-07 10:55:002.1[facility] HermannELECTROLYTES 2018-08-27 10:55:36405Sjtyjczz NkhupuaFMBYQBXELKCL1863-00-39 10:55:004.1[facility] QgnocroGGFFOKTIMIFF7054-20-70 10:55:43811Wvakowed GbatjruLRJJUHARJAOI5073-87-19 10:55:0012[facility] GgnomceXBRIZLXBHSGI7336-64-18 10:55:0090[facility] JUMNUEJYYVIS1830-87-64 10:55:000.62[facility] LcrofhdOYBUFCOJBZWY2877-69-10 10:55:008.4[facility] XbtkrmoRDMANBQHLEMJ2678-64-67 10:55:0028[facility] KKAFMSCGMLEM7296-89-40 10:55:19935Bvfookeb GirnkcoYXTXWKMGEFLB5210-83-80 10:55:0012.1[facility] ElylfqkQIKEDMHVOV7181-40-38 10:55:007.7[facility] MOIOJBOGEE9079-88-77 10:55:0013.2[facility] KsjmpygHVTTEMOZQE7745-01-21 10:55:00 4.56[facility] PpepcbrKZGDRFJLYP9001-13-38 10:55:0039.0[facility] HermannHEMATOLOGY 2018-08-27 10:55:0013.4[facility] OtegybtCXRORCBVLO9083-16-98 10:55:0033.9[facility] ObrwojfRFEBJRLYIB4952-23-40 10:55:00* Test Item Value Reference Range Interpretation Comments MCH (test code = MCH) 28.9 pg 27.0-31.0 [facility] QqtceddQPXVVWEVIJ8505-18-58 10:55:83143Bmcxsicb HermannHEMATOLOGY 2018-08-27 10:55:0085.4[facility] AolmecjMKNVKQIINT8403-29-04 10:55:008.4[facility] NlltsnhLXZTIHZZNI3151-41-69 10:55:000.9[facility] VrnhgikKATWVEXDNZ0417-48-40 10:55:000.5[facility] ZycekuuOHAJYTTSJI0762-06-06 10:55:000.1[facility] MKOHBRDYNP5262-64-29 10:55:0011.1[facility] NolkkssNHJLGRHPKH1314-86-21 10:55:00 24.6[facility] IdqmatmYVANUUBHAA0736-08-47 10:55:0056.9[facility] HermannHEMATOLOGY 2018-08-27 10:55:001.1[facility] QuphzbbHCFHVBTIVY3427-13-93 10:55:006.3[facility] KzzatqlCXHUFXGHEP4833-49-94 10:55:004.4[facility] IhazzqjTGBVZDFPQW8621-82-94 10:55:001.9[facility] PaajbwaYHNKGWKJPJ4554-39-74 05:18:00* Test Item Value Reference Range Interpretation Comments Vanco Tr TND (test code = Vanco Tr TND) 0000 1 [facility] AqypucwEEYGAAFCRX2383-51-56 05:18:0013.1[facility] HermannCHEM PANEL 2018-08-26 10:28:001.9[facility] HermannCHEM RQZCN5360-03-11 10:28:98645Vgwbdchi HermannCHEM DEUHO5434-16-08 10:28:13886Dhdyuabn HermannCHEM XPMXV8925-18-60 10:28:0027[facility] HermannCHEM KGJSG2873-87-16 10:28:0012[facility] HermannCHEM MILEL4699-47-85 10:28:008.0[facility] HermannCHEM QTTCJ1101-59-52 10:28:004.0 [facility] HermannCHEM KTGXP0211-70-84 10:28:72749Iyxwkaeo HermannCHEM PANEL 2018-08-26 10:28:000.56[facility] HermannCHEM AUBBR1390-18-92 10:28:0089[facility] HermannCHEM JNEAH8935-00-97 10:28:0011.0[facility] UazspglKKYBYRYAVA0138-88-19 10:28:000.8[facility] KylcuenUCTYEIEQWE3446-05-61 10:28:000.5[facility] PNGBCDIEML4561-42-61 10:28:000.1[facility] KaxuqqsFMHLQWBCCO8071-89-68 10:28:005.7 [facility] NgnfuemXMWMCZLQZD4590-66-30 10:28:0023.6[facility] HermannHEMATOLOGY 2018-08-26 10:28:009.6[facility] TpjsnkcDJPHZYIDSS9526-07-49 10:28:001.0[facility] InoxcgrVHNUWKIYNP2733-73-73 10:28:005.2[facility] KtwmpzvJAFXKSPCWL0591-30-38 10:28:002.1[facility] RxlmniwHTEMYWFPLH2300-72-83 10:28:0060.1[facility] HINPWFCJRB0527-41-47 10:28:0013.3[facility] DtqsitqWPRHIOUNVX6599-45-78 10:28:00 228[facility] TnwkxzrIIVEVDAVZM8019-89-88 10:28:0038.0[facility] HermannHEMATOLOGY 2018-08-26 10:28:004.40[facility] QrztfhvFTWTFCGLUJ9360-42-32 10:28:008.7[facility] WgfdtudKGJOQWCEYJ7197-39-17 10:28:0012.9[facility] SljexguASPGXCTHIS2222-71-31 10:28:00* Test Item Value Reference Range Interpretation Comments MCH (test code = MCH) 29.2 pg 27.0-31.0 [facility] DllomzdHTDHVONDSG8389-87-31 10:28:0086.2[facility] HermannHEMATOLOGY 2018-08-26 10:28:0033.9[facility] QgncgreIRZPCONWWT0361-77-48 10:28:008.2[facility] KqbckicMTAPWNBZZT6825-88-55 19:34:00* Test Item Value Reference Range Interpretation Comments Morenita Storey TND (test code = Chandanao Tr TND) 1330 1 [facility] QdbwkumCCDFFXGMDC2795-30-44 19:34:0015.8[facility] HermannCHEM PANEL 2018-08-25 10:41:003.7[facility] HermannCHEM PYAQV7350-37-01 10:41:00* Test Item Value Reference Range Interpretation Comments B/C Ratio (test code = B/C Ratio) 24 1 6-25 [facility] JVOSV7593-15-31 10:41:00* Test Item Value Reference Range Interpretation Comments A/G Ratio (test code = A/G Ratio) 0.8 1 0.7-1.6 [facility]CHE[facility] DCUIZ2446-32-28 10:41:003.6[facility]annCHEM PANEL 2018-08-25 10:41:000.3[facility]annCHE[facility] LOZTP4749-05-13 10:41:0077[facility]annCHE[facility] DRCDV6228-11-74 10:41:0019[facility]annCHE[facility] WZWCK5872-12-22 10:41:0023[facility]CHE[facility] YBIAX1917-76-82 10:41:002.8[facility]annCHE[facility] KVKAD9121-35-57 10:41:006.4[facility]annCHE[facility] NWUYJ9591-95-36 23:22:00<0.05 [facility] ZUYYQ2666-41-10 23:22:001.1[facility] HermannIMMUNOLOGY 2018-08-24 23:22:00Negative *NA*(08/24/18 5:22 PM)[facility]annCHEM PANEL 2018-08-24 17:20:002.2[facility]annCHEM VUTHY0240-00-12 10:15:007.8[facility]annCHEM SAKEX5371-18-26 10:15:003.8[facility]annCHEM WANZE7047-22-92 10:15:0099[facility]CHE[facility] RYKLR1403-89-25 10:15:000.3[facility]annCHE[facility] LBKRU6613-96-99 10:15:0018[facility]annCHE[facility] SHAVP0887-86-72 10:15:0021 [facility] VTVHH2774-52-90 10:15:004.0[facility]annCHEM PANEL 2018-08-24 10:15:00* Test Item Value Reference Range Interpretation Comments A/G Ratio (test code = A/G Ratio) 1.0 1 0.7-1.6 [facility] WYUNP5382-41-10 10:15:00* Test Item Value Reference Range Interpretation Comments B/C Ratio (test code = B/C Ratio) 17 1 6-25 [facility] ThyitmrOXFNQKLFNKEDN1646-56-35 10:15:00Negative *NA*(08/24/18 4:15 AM) [facility] KdtevaxSXQAQIKQBW2649-44-16 10:15:00Normal (08/24/18 4:15 AM)[facility] LmrcpybCTVQECOOJT3666-11-05 10:15:00Normal (08/24/18 4:15 AM)[facility] SPECIAL RPAQRYOEU2702-07-79 10:15:005.3[facility] VohhzfrKGRETGZBPKEN6718-28-28 08:00:0012.2[facility] IajgnkyEXTWVYXAXQOF4421-43-97 08:00:34513Zainmfuv [place] SVFQWESBSCTN4124-21-78 08:00:0089[facility] LeypbkvGXGXOXYCDHSQ4697-52-97 08:00:00 4.2[facility] CxblxpwLDAHNMJRVMZJ6782-13-74 08:00:87073Zefbyule [place] SJTHPXMAEHLB9297-73-47 08:00:000.72[facility] KwdxhvqKODKASEFSPST0872-11-05 08:00:31791Qviacgza YlinnxlMXLVOJYWLVIU8384-06-66 08:00:009[facility] CJKTFDNECHKX3220-73-06 08:00:0029[facility] LraujtyASLSLJDTZLYF5217-77-95 08:00:00 8.2[facility] JsipngeSPXQWLTAVA1583-54-00 08:00:000.3[facility]annHEMATOLOGY 2018-05-21 08:00:000.8[facility] NmgjsbpULKYBTCCRG7181-29-40 08:00:000.1[facility] XqnmuqrMQCNIWTAJC7011-74-62 08:00:0032.9[facility] MqxcgovSIDBITALNK2246-77-66 08:00:0050.8[facility] BrdspafRYHFQUSOVW0301-21-66 08:00:002.3[facility] SAQFGKFKOU6992-53-70 08:00:003.6[facility] DbdstfoCQXRJGTUVW4320-99-74 08:00:000.8 [facility] QpoetxoBUZGNPAAAF1542-31-54 08:00:004.8[facility]annHEMATOLOGY 2018-05-21 08:00:0010.7[facility] OogviktVQWVEQVNTR5847-70-25 08:00:0035.3[facility] WjxtbfwRHEBWBFLEL1115-30-38 08:00:04047Alqqyrdu HwpdmczVLVXDHKOGW7095-51-81 08:00:0012.9[facility] UvyqurvCYOKFVCWMX3639-69-11 08:00:0085.6[facility] HBDWFYOSEK4074-40-92 08:00:0034.4[facility] CjvxibpZONGPPUVIJ1306-60-63 08:00:00* Test Item Value Reference Range Interpretation Comments MCH (test code = MCH) 29.4 pg 27.0-31.0 [facility] DxsocgvHRUXZIALQI7449-35-77 08:00:008.4[facility]annHEMATOLOGY 2018-05-21 08:00:004.12[facility] MtzsvqaKEIXOWZSMO9253-81-96 08:00:007.1[facility] DvgjtipBWKGKEEYYN4390-09-83 08:00:0012.1[facility] HdrchqzZGRKMPFBPA0062-32-02 07:31:0015.7[facility] QqsxxvcUQCWVBWPYQ8991-64-93 07:31:00* Test Item Value Reference Range Interpretation Comments Morenita Storey TND (test code = [facility] Tr TND) 0300 1 [facility] ZvlelywLCCBHZFVDTDC0558-18-24 08:22:0010.9[facility] HermannELECTROLYTES 2018-05-20 08:22:16152Vffoaypq MyeahdrKFCFQZZBYGDG9632-01-99 08:22:0026[facility] YrreqkxLPDACZSBYRNW1361-43-88 08:22:52438Tjkrpdoc GbwtwohFSBLFJQMRSGM2355-74-90 08:22:94077Xdjkqayr CkwqvqnMPKXWXWHMHDP4420-14-23 08:22:003.9[facility] [place] YJDGCEYFEREY7171-64-18 08:22:008.0[facility] XwsrpqlEEIWHPBOEJPS8560-52-22 08:22:000.59[facility] UamorqgOCAFWGUMDEZT2057-62-51 08:22:0094[facility] [place] WNJAJKZUCZAJ8017-92-41 08:22:009[facility] RlqstceQNQNMSKLMA3398-98-18 08:22:00 55.0[facility] EzkpxdkTXMQRYTWLJ5332-40-41 08:22:0031.9[facility]annHEMATOLOGY 2018-05-20 08:22:002.3[facility] UvttnkgBAQMXPBRBH3211-16-33 08:22:009.9[facility] NlgjdxgQCFADMBLLO9550-65-16 08:22:000.7[facility] RlljurdFZTXCZFJJI5182-73-49 08:22:002.4[facility] FnbmogzALALJTSZAX7405-06-03 08:22:000.1[facility] TXVZHVPUBH9417-90-31 08:22:000.2[facility] JejzemqAZZLXBUBIF4974-10-69 08:22:004.1 [facility] BswkwnoXXARYKVJBF6053-65-20 08:22:000.9[facility]annHEMATOLOGY 2018-05-20 08:22:00* Test Item Value Reference Range Interpretation Comments MCH (test code = MCH) 29.8 pg 27.0-31.0 [facility] AavucpvHANYFQFJTK6183-29-59 08:22:0086.8[facility]annHEMATOLOGY 2018-05-20 08:22:003.85[facility] WjdmhdxAWDFJJDTFL1018-65-51 08:22:007.4[facility] DxzfywzOYSDHBXIEZ6162-67-17 08:22:0033.4[facility] VaqrdqoOBXALWYCBY7248-87-49 08:22:0011.5[facility] EylnpibWCDHPQBDTL7904-34-06 08:22:0012.9[facility] [place] UROPWQJMIF8709-45-90 08:22:0034.3[facility] UsjyyjuHHYNGJEIPN8696-62-13 08:22:00 8.7[facility] TdgagjnTUYOSUVSII5181-56-88 08:22:56925Mncgukaf HermannELECTROLYTES 2018-05-19 06:30:0014.4[facility] PldinwwULVRHCSTFCZL1408-08-08 06:30:30820 [facility] UexyrouYHYDKWFEQEEA0747-42-23 06:30:008.2[facility] HermannELECTROLYTES 2018-05-19 06:30:004.4[facility] UijscwpRBKLTPODVOXP2045-56-87 06:30:34095Hfhdeezn VhsjxytGWIIXJEGVZQX6894-02-75 06:30:0025[facility] KjbnyxyMGKEWRVEGFTE8247-14-94 06:30:53191Npldthdz InbnawjUWQRCQREZRBB7969-01-62 06:30:007[facility] [place] ZRBWUTIHFYQU7639-00-52 06:30:69413Oynudcnh XalainzPCDBNBTENBVJ7109-26-12 06:30:000.73[facility] CopckfqFDIGYCUPWK3204-69-35 06:30:000.3[facility] [place] TLUDYNPQRF9755-43-71 06:30:000.1[facility] SjutfmzZNMBPJCIHQ9233-55-29 06:30:00 83.5[facility] EwphexzTYLKENQBRM9160-46-01 06:30:009.1[facility]annHEMATOLOGY 2018-[facility]-19 06:30:007.0[facility] BhrhtvjGTOFXVGLBN2405-32-63 06:30:008.9[facility] PefisilCSFVBBDAGH1802-44-90 06:30:000.7[facility] CwhbfsjXLWTDNVFIH5372-62-93 06:30:001.0[facility] UcwtixpVMPHIIQRGE8426-75-68 06:30:008.4[facility] UDHMGVGQQK3631-26-88 06:30:17407Mcsafqrk DyhjdrbZPEIDVMWSN8661-98-96 06:30:00 12.8[facility] GkfxjgyWNOUAJTCAY6585-78-81 06:30:0033.2[facility]annHEMATOLOGY 2018-05-19 06:30:0010.6[facility] WdcasskWKGMPECVDY8235-45-02 06:30:0088.3[facility] IkzupodSFMADSZILO2460-85-91 06:30:0038.9[facility] RkhplrtUTUGVVYWPB1461-05-66 06:30:004.41[facility] ItljogtGFGQREBWHT8488-61-11 06:30:00* Test Item Value Reference Range Interpretation Comments MCH (test code = MCH) 29.3 pg 27.0-31.0 [facility] CmsxumaREUJIPKVHK0559-89-84 06:30:0012.9[facility] HermannTOXICOLOGY 2018-05-19 06:30:00* Test Item Value Reference Range Interpretation Comments Morenita Tr TND (test code = Vanco Tr TND) 0200 1 [facility] AmericaNipmleeVNTGDZCDFS0980-97-69 06:30:006.6[facility] HermannTOXICOLOGY 2018-05-18 20:36:0027.1[facility] AMPICILLIN+SULBACTAM:SUSC:PT:ISOLATE:ORDQN:ECJ8251-65-95 18:30:00Staphylococcus aureusMemorial HermannCHEM PWMCK5171-45-91 08:51:001.9[facility] HermannCHEM PANEL 2018-05-17 08:51:00* Test Item Value Reference Range Interpretation Comments B/C Ratio (test code = B/C Ratio) 16 1 02-08 [facility] HermannCHEM GDTGJ6413-54-15 08:51:007.0[facility] HermannCHEM PANEL 2018-05-17 08:51:004.0[facility] HermannCHEM LRNCQ0916-97-94 08:51:003.0[facility] HermannCHEM WCPOY7799-61-03 08:51:0011[facility] HermannCHEM MXHEA7017-72-01 08:51:000.4[facility] HermannCHEM WDFIG6574-04-45 08:51:0066[facility] HermannCHEM RZRUG3671-10-91 08:51:0019[facility] HermannCHEM IEPLZ7402-67-25 08:51:00* Test Item Value Reference Range Interpretation Comments A/G Ratio (test code = A/G Ratio) 0.8 1 0.7-1.6 [facility] HospitalBrpntlgEBMQCMQNPR1066-10-04 08:51:00* Test Item Value Reference Range Interpretation Comments INR (test code = INR) 1.14 1 0.85-1.17 [facility] HospitalVmlmlhaFIYIGDIYBU9142-72-45 08:51:00* Test Item Value Reference Range Interpretation Comments PT (test code = PT) 14.6 s 12.0-14.7 [facility] HospitalUjuduukOKISDFQVNO8816-18-53 08:51:00* Test Item Value Reference Range Interpretation Comments PTT (test code = PTT) 36.4 s 22.9-35.8 [facility] YxyxinnGTYFHNAUTO1861-56-41 08:51:000.1[facility]annHEMATOLOGY 2018-05-17 08:51:000.3[facility] HermannCHEM RZZHO6065-76-06 06:46:001.3[facility] HermannCHEM CZRHZ1745-14-72 05:24:004.1[facility] HermannCHEM TBAAH7395-52-85 05:24:00* Test Item Value Reference Range Interpretation Comments A/G Ratio (test code = A/G Ratio) 0.8 1 0.7-1.6 [facility]annCHEM ILBQT5825-24-09 05:24:00* Test Item Value Reference Range Interpretation Comments B/C Ratio (test code = B/C Ratio) 13 1 6-25 [facility]annCHEM LCTJL5312-39-96 05:24:0021[facility] HermannCHEM PANEL 2018-05-17 05:24:0014[facility] HermannCHEM PTORW0385-00-86 05:24:0071[facility] HermannCHEM PGBST1129-72-93 05:24:000.2[facility] HermannCHEM CYZWT9491-00-21 05:24:003.2[facility] HermannCHEM VCUGD1603-51-44 05:24:007.3[facility] ERKGLHOKROPDG3656-41-42 05:24:00Negative *NA*(05/17/18 12:24 AM)[facility] ABDOMEN/PELVIS [id number] 19:32:00 [place] [address] Patient Name: COLLEEN JOHNSON MR #: [id number] : 1985 Age/Sex: 32/F Req #: [id number] Adm Physician: Ordered by: FELICIA DELGADO MD Report #: [id number] Location: Room/Bed: Procedure: [id number] CT/CT ABDOMEN/PELVIS W Exam Date: 02/07/18 Exam [...] 02/07/181934 COPY TO: FELICIA DELGADO MD Urine Ghiyilb9261-52-54 15:50:00* Test Item Value Reference Range Interpretation Comments Urine Clarity (test code = 51969-2) CLOUDY CLEAR H [facility] OTV3149-34-21 15:50:00* Test Item Value Reference Range Interpretation Comments Urine WBC (test code = 5821-4) NONE 0-5 [facility] CenterU[facility] RTA5818-21-80 15:50:00* Test Item Value Reference Range Interpretation Comments Urine RBC (test code = 43683-3) 0-5 0-5 [facility] Jxkgkpqk5538-59-56 15:50:00* Test Item Value Reference Range Interpretation Comments Urine Bacteria (test code = 80149-0) RARE NONE [facility] CenterU[facility] Epithelial Jjcxz5932-02-34 15:50:00 * Test Item Value Reference Range Interpretation Comments Urine Epithelial Cells (test code = 19523-9) RARE NONE [facility] Amorphous Jaoupgjf4133-65-36 15:50:00* Test Item Value Reference Range Interpretation Comments Urine Amorphous Sediment (test code = 8246-1) MANY FEW H [facility] CenterU[facility] Kxoewme6640-79-76 15:50:00* Test Item Value Reference Range Interpretation Comments Urine Clarity (test code = 64010-9) CLOUDY CLEAR H [facility] VTR0853-25-16 15:50:00* Test Item Value Reference Range Interpretation Comments Urine WBC (test code = 5821-4) NONE 0-5 [facility] MNJ9812-99-49 15:50:00* Test Item Value Reference Range Interpretation Comments Urine RBC (test code = 11930-9) 0-5 0-5 [facility] Lpypkdfp2400-78-94 15:50:00* Test Item Value Reference Range Interpretation Comments Urine Bacteria (test code = 60770-5) RARE NONE [facility] CenterU[facility] Epithelial Vnipo3558-24-16 15:50:00 * Test Item Value Reference Range Interpretation Comments Urine Epithelial Cells (test code = 22272-0) RARE NONE [facility] Amorphous Xdavgxtz7585-68-48 15:50:00* Test Item Value Reference Range Interpretation Comments Urine Amorphous Sediment (test code = 8246-1) MANY FEW H [facility] Oamkm4511-57-46 15:44:00* Test Item Value Reference Range Interpretation Comments Sodium Level (test code = 2951-2) 139 136-145 [facility] CenterPotassium Mnstb3693-49-04 15:44:00* Test Item Value Reference Range Interpretation Comments Potassium Level (test code = 2823-3) 3.6 3.5-5.1 [facility] CenterChloride Ctaal2075-72-05 15:44:00* Test Item Value Reference Range Interpretation Comments Chloride Level (test code = 2075-0) 107 98-107 [facility] CenterCarbon Dioxide Jjldt4246-16-06 15:44:00* Test Item Value Reference Range Interpretation Comments Carbon Dioxide Level (test code = 2028-9) 24 22-29 [facility] CenterAnion Nyu7992-97-55 15:44:00* Test Item Value Reference Range Interpretation Comments Anion Gap (test code = 84126-9) 11.6 8-16 [facility] CenterBlood Urea Ypwmywlt4090-76-86 15:44:00* Test Item Value Reference Range Interpretation Comments Blood Urea Nitrogen (test code = 3094-0) 15 7-26 [facility] CenterCreatinine2018-06-24 15:44:00* Test Item Value Reference Range Interpretation Comments Creatinine (test code = 2160-0) 0.78 0.57-1.11 [facility] CenterBUN/Creatinine Nblbx4343-56-70 15:44:00* Test Item Value Reference Range Interpretation Comments BUN/Creatinine Ratio (test code = 3097-3) 19 6- [facility] CenterEstimat Glomerular Filtration Rate 2018-02-07 15:44:00* Test Item Value Reference Range Interpretation Comments Estimat Glomerular Filtration Rate (test code = 94724-6) 60- >60 Ranges were taken from the National Kidney Disease Education Program and the [facility] literature.Reference ranges:60 or greater: Vqnavh13-33 ( for 3 consecutive months): Chronic kidney disease 15 or less: Kidney failureBrooke Army Medical CenterGlucose Knbgn3287-85-95 15:44:00* Test Item Value Reference Range Interpretation Comments Glucose Level (test code = RWC3570) 95 74-118 [facility] CenterCalcium Hjwxj7234-65-20 15:44:00* Test Item Value Reference Range Interpretation Comments Calcium Level (test code = 35347-1) 8.9 8.4-10.2 [facility] CenterTotal Mhlyyevxv4068-48-61 15:44:00* Test Item Value Reference Range Interpretation Comments Total Bilirubin (test code = 1975-2) 0.4 0.2-1.2 [facility] CenterAspartate Amino Transf (AST/SGOT) 2018-02-07 15:44:00* Test Item Value Reference Range Interpretation Comments Aspartate Amino Transf (AST/SGOT) (test code = Aspartate Amino Transf (AST/SGOT)) 29 5-34 [facility] CenterAlanine Aminotransferase (ALT/SGPT) 2018-02-07 15:44:00* Test Item Value Reference Range Interpretation Comments Alanine Aminotransferase (ALT/SGPT) (test code = 1742-6) 55 0-55 [facility] CenterTotal Yddzbzc9288-13-71 15:44:00* Test Item Value Reference Range Interpretation Comments Total Protein (test code = 2885-2) 6.8 6.5-8.1 [facility] CenterAlbumin2018-06-24 15:44:00* Test Item Value Reference Range Interpretation Comments Albumin (test code = 1751-7) 3.5 3.5-5.0 [facility] CenterGlobulin2018-06-24 15:44:00* Test Item Value Reference Range Interpretation Comments Globulin (test code = 92428-8) 3.3 2.3-3.5 [facility] CenterAlbumin/Globulin Fmjei6243-09-34 15:44:00 * Test Item Value Reference Range Interpretation Comments Albumin/Globulin Ratio (test code = 1759-0) 1.1 0.8-2.0 [facility] CenterAlkaline Vhvyxkwdptd3480-10-01 15:44:00* Test Item Value Reference Range Interpretation Comments Alkaline Phosphatase (test code = 6768-6) 62 40-150 [facility]odium Hunpm8765-25-74 15:44:00* Test Item Value Reference Range Interpretation Comments Sodium Level (test code = 2951-2) 139 136-145 [facility] CenterPotassium Hmnhh8482-58-89 15:44:00* Test Item Value Reference Range Interpretation Comments Potassium Level (test code = 2823-3) 3.6 3.5-5.1 [facility] CenterChloride Tbora5907-20-83 15:44:00* Test Item Value Reference Range Interpretation Comments Chloride Level (test code = 2075-0) 107 98-107 [facility] CenterCarbon Dioxide Nqsns2785-46-37 15:44:00* Test Item Value Reference Range Interpretation Comments Carbon Dioxide Level (test code = 2028-9) 24 22-29 [facility] CenterAnion Lvd1744-59-11 15:44:00* Test Item Value Reference Range Interpretation Comments Anion Gap (test code = 97418-0) 11.6 8-16 [facility] CenterBlood Urea Cncnyoso9670-27-39 15:44:00* Test Item Value Reference Range Interpretation Comments Blood Urea Nitrogen (test code = 3094-0) 15 7- [facility] CenterCreatinine2018-06-24 15:44:00* Test Item Value Reference Range Interpretation Comments Creatinine (test code = 2160-0) 0.78 0.57-1.11 [facility] CenterBUN/Creatinine Jajhc1344-78-53 15:44:00* Test Item Value Reference Range Interpretation Comments BUN/Creatinine Ratio (test code = 3097-3) 19 6- [facility] CenterEstimat Glomerular Filtration Rate 2018-02-07 15:44:00* Test Item Value Reference Range Interpretation Comments Estimat Glomerular Filtration Rate (test code = 79104-3) 60- >60 Ranges were taken from the National Kidney Disease Education Program and the [facility] Foundation literature.Reference ranges:60 or greater: Vdouca37-63 ( for 3 consecutive months): Chronic kidney disease 15 or less: Kidney failureBrooke Army Medical CenterGlucose Jynfc1286-03-97 15:44:00* Test Item Value Reference Range Interpretation Comments Glucose Level (test code = ZRK4383) 95 74-118 [facility] CenterCalcium Fbdus4623-04-53 15:44:00* Test Item Value Reference Range Interpretation Comments Calcium Level (test code = 38189-2) 8.9 8.4-10.2 [facility] CenterTotal Cptufonou2835-85-02 15:44:00* Test Item Value Reference Range Interpretation Comments Total Bilirubin (test code = 1975-2) 0.4 0.2-1.2 [facility] CenterAspartate Amino Transf (AST/SGOT) 2018-02-07 15:44:00* Test Item Value Reference Range Interpretation Comments Aspartate Amino Transf (AST/SGOT) (test code = Aspartate Amino Transf (AST/SGOT)) 29 5-34 [facility] CenterAlanine Aminotransferase (ALT/SGPT) 2018-02-07 15:44:00* Test Item Value Reference Range Interpretation Comments Alanine Aminotransferase (ALT/SGPT) (test code = 1742-6) 55 0-55 [facility] Jxiansh4530-05-95 15:44:00* Test Item Value Reference Range Interpretation Comments Total Protein (test code = 2885-2) 6.8 6.5-8.1 [facility] CenterAlbumin2018-06-24 15:44:00* Test Item Value Reference Range Interpretation Comments Albumin (test code = 1751-7) 3.5 3.5-5.0 [facility] CenterGlobulin2018-06-24 15:44:00* Test Item Value Reference Range Interpretation Comments Globulin (test code = 39873-5) 3.3 2.3-3.5 [facility] CenterAlbumin/Globulin Vobti0860-74-60 15:44:00 * Test Item Value Reference Range Interpretation Comments Albumin/Globulin Ratio (test code = 1759-0) 1.1 0.8-2.0 [facility] CenterAlkaline Wnctfswrjbn9707-86-48 15:44:00* Test Item Value Reference Range Interpretation Comments Alkaline Phosphatase (test code = 6768-6) 62 40-150 [facility] CenterHuman Chorionic Gonadotropin, Qual 2018-02-07 15:37:00* Test Item Value Reference Range Interpretation Comments Human Chorionic Gonadotropin, Qual (test code = 2118-8) NEGATIVE NEGATIVE [facility] CenterHuman Chorionic Gonadotropin, Qual 2018-02-07 15:37:00* Test Item Value Reference Range Interpretation Comments Human Chorionic Gonadotropin, Qual (test code = 2118-8) NEGATIVE NEGATIVE [facility] CenterUrine Xhrvc7933-04-18 15:35:00* Test Item Value Reference Range Interpretation Comments Urine Color (test code = 5778-6) YELLOW YELLOW [facility] CenterUrine Specific Qpetaop9031-73-14 15:35:00 * Test Item Value Reference Range Interpretation Comments Urine Specific Coy (test code = 5811-5) 1.030 1.010-1.02 5 H [facility] CenterUrine eB2167-90-06 15:35:00* Test Item Value Reference Range Interpretation Comments Urine pH (test code = 83743-4) 6 5-7 [facility] CenterUrine Leukocyte Uutfmjsp2516-15-61 15:35:00* Test Item Value Reference Range Interpretation Comments Urine Leukocyte Esterase (test code = 5799-2) NEGATIVE NEGATIVE [facility] Dtvhmgk7810-80-16 15:35:00* Test Item Value Reference Range Interpretation Comments Urine Nitrite (test code = 03395-6) NEGATIVE NEGATIVE [facility] CenterUrine Bmligax9304-20-16 15:35:00* Test Item Value Reference Range Interpretation Comments Urine Protein (test code = 5804-0) 1+ NEGATIVE H [facility] CenterUrine Glucose (UA)2018-02-07 15:35:00* Test Item Value Reference Range Interpretation Comments Urine Glucose (UA) (test code = 2349-9) NEGATIVE NEGATIVE [facility] CenterUrine Uqpjtxs1936-72-63 15:35:00* Test Item Value Reference Range Interpretation Comments Urine Ketones (test code = 26429-6) 1+ NEGATIVE H [facility] CenterUrine Mfmpfnqeqixi1903-59-37 15:35:00* Test Item Value Reference Range Interpretation Comments Urine Urobilinogen (test code = 76057-2) 0.2 0.2-1 [facility] CenterUrine Ycmuaisjq4556-30-07 15:35:00* Test Item Value Reference Range Interpretation Comments Urine Bilirubin (test code = 1978-6) 1+ NEGATIVE H [facility] CenterUrine Jkszx7646-98-50 15:35:00* Test Item Value Reference Range Interpretation Comments Urine Blood (test code = 37838-9) 1+ NEGATIVE H [facility] CenterUrine Ctonf2126-96-66 15:35:00* Test Item Value Reference Range Interpretation Comments Urine Color (test code = 5778-6) YELLOW YELLOW [facility] CenterUrine Specific Uesxhwu9297-05-62 15:35:00 * Test Item Value Reference Range Interpretation Comments Urine Specific Coy (test code = 5811-5) 1.030 1.010-1.02 5 H [facility] CenterUrine aP3246-99-55 15:35:00* Test Item Value Reference Range Interpretation Comments Urine pH (test code = 63457-2) 6 5-7 [facility] CenterUrine Leukocyte Zrlukbkg2813-48-41 15:35:00* Test Item Value Reference Range Interpretation Comments Urine Leukocyte Esterase (test code = 5799-2) NEGATIVE NEGATIVE [facility] CenterUrine Xklfksp2761-30-24 15:35:00* Test Item Value Reference Range Interpretation Comments Urine Nitrite (test code = 14430-9) NEGATIVE NEGATIVE [facility] CenterUrine Hatkyzi1865-35-70 15:35:00* Test Item Value Reference Range Interpretation Comments Urine Protein (test code = 5804-0) 1+ NEGATIVE H [facility] CenterUrine Glucose (UA)2018-02-07 15:35:00* Test Item Value Reference Range Interpretation Comments Urine Glucose (UA) (test code = 2349-9) NEGATIVE NEGATIVE [facility] CenterUrine Hwekads5093-68-25 15:35:00* Test Item Value Reference Range Interpretation Comments Urine Ketones (test code = 77682-8) 1+ NEGATIVE H [facility] CenterUrine Dwetahhktlfb7486-31-91 15:35:00* Test Item Value Reference Range Interpretation Comments Urine Urobilinogen (test code = 01481-2) 0.2 0.2-1 [facility] CenterUrine Qdteoqhhy3538-82-94 15:35:00* Test Item Value Reference Range Interpretation Comments Urine Bilirubin (test code = 1978-6) 1+ NEGATIVE H [facility] CenterUrine Wjpku3724-27-01 15:35:00* Test Item Value Reference Range Interpretation Comments Urine Blood (test code = 51281-2) 1+ NEGATIVE H [facility] CenterWhite Blood Uwiaf6306-71-88 15:21:00* Test Item Value Reference Range Interpretation Comments White Blood Count (test code = 6690-2) 8.40 4.8-10.8 [facility] CenterRed Blood Mbuqg4224-21-96 15:21:00* Test Item Value Reference Range Interpretation Comments Red Blood Count (test code = 789-8) 4.67 3.6-5.1 [facility] CenterHemoglobin2018-06-24 15:21:00* Test Item Value Reference Range Interpretation Comments Hemoglobin (test code = 56629-0) 13.8 12.0-16.0 [facility] CenterHematocrit2018-06-24 15:21:00* Test Item Value Reference Range Interpretation Comments Hematocrit (test code = 4544-3) 41.0 34.2-44.1 [facility] CenterMean Corpuscular Ihcygm3199-68-48 15:21:00* Test Item Value Reference Range Interpretation Comments Mean Corpuscular Volume (test code = 787-2) 87.8 81-99 [facility] CenterMean Corpuscular Ymbegxbkwd3301-29-62 15:21:00* Test Item Value Reference Range Interpretation Comments Mean Corpuscular Hemoglobin (test code = 785-6) 29.6 28-32 [facility] CenterMean Corpuscular Hemoglobin Concent 2018-02-07 15:21:00* Test Item Value Reference Range Interpretation Comments Mean Corpuscular Hemoglobin Concent (test code = 786-4) 33.7 31-35 [facility] CenterRed Cell Distribution Ulezu7896-61-85 15:21:00* Test Item Value Reference Range Interpretation Comments Red Cell Distribution Width (test code = 18010-6) 12.7 11.7 -14.4 [facility] CenterPlatelet Ftllp3755-47-39 15:21:00* Test Item Value Reference Range Interpretation Comments Platelet Count (test code = 777-3) 229 140-360 [facility] CenterNeutrophils (%) (Auto)2018-02-07 15:21:00 * Test Item Value Reference Range Interpretation Comments Neutrophils (%) (Auto) (test code = 63525-4) 68.1 38.7-80.0 [facility] CenterLymphocytes (%) (Auto)2018-02-07 15:21:00 * Test Item Value Reference Range Interpretation Comments Lymphocytes (%) (Auto) (test code = 736-9) 20.1 18.0-39.1 [facility] CenterMonocytes (%) (Auto)2018-02-07 15:21:00* Test Item Value Reference Range Interpretation Comments Monocytes (%) (Auto) (test code = 5905-5) 7.6 4.4-11.3 [facility] CenterEosinophils (%) (Auto)2018-02-07 15:21:00 * Test Item Value Reference Range Interpretation Comments Eosinophils (%) (Auto) (test code = 713-8) 3.6 0.0-6.0 [facility] CenterBasophils (%) (Auto)2018-02-07 15:21:00* Test Item Value Reference Range Interpretation Comments Basophils (%) (Auto) (test code = 706-2) 0.2 0.0-1.0 [facility] CenterIM GRANULOCYTES %2018-02-07 15:21:00* Test Item Value Reference Range Interpretation Comments IM GRANULOCYTES % (test code = IM GRANULOCYTES %) 0.4 0.0- 1.0 [facility] CenterNeutrophils # (Auto)2018-02-07 15:21:00* Test Item Value Reference Range Interpretation Comments Neutrophils # (Auto) (test code = 751-8) 5.7 2.1-6.9 [facility] CenterLymphocytes # (Auto)2018-02-07 15:21:00* Test Item Value Reference Range Interpretation Comments Lymphocytes # (Auto) (test code = 30599-9) 1.7 1.0-3.2 [facility] CenterMonocytes # (Auto)2018-02-07 15:21:00* Test Item Value Reference Range Interpretation Comments Monocytes # (Auto) (test code = 742-7) 0.6 0.2-0.8 [facility] CenterEosinophils # (Auto)2018-02-07 15:21:00* Test Item Value Reference Range Interpretation Comments Eosinophils # (Auto) (test code = 711-2) 0.3 0.0-0.4 [facility] CenterBasophils # (Auto)2018-02-07 15:21:00* Test Item Value Reference Range Interpretation Comments Basophils # (Auto) (test code = 704-7) 0.0 0.0-0.1 [facility] CenterAbsolute Immature Granulocyte (auto 2018-02-07 15:21:00* Test Item Value Reference Range Interpretation Comments Absolute Immature Granulocyte (auto (tristan t code = Absolute Immature Granulocyte (auto) 0.03 0-0.1 [facility] CenterWhite Blood Kotlb4685-59-94 15:21:00* Test Item Value Reference Range Interpretation Comments White Blood Count (test code = 6690-2) 8.40 4.8-10.8 [facility] CenterRed Blood Tlenh9819-31-25 15:21:00* Test Item Value Reference Range Interpretation Comments Red Blood Count (test code = 789-8) 4.67 3.6-5.1 [facility] CenterHemoglobin2018-06-24 15:21:00* Test Item Value Reference Range Interpretation Comments Hemoglobin (test code = 51122-1) 13.8 12.0-16.0 [facility] CenterHematocrit2018-06-24 15:21:00* Test Item Value Reference Range Interpretation Comments Hematocrit (test code = 4544-3) 41.0 34.2-44.1 [facility] CenterMean Corpuscular Zsebdy7169-18-27 15:21:00* Test Item Value Reference Range Interpretation Comments Mean Corpuscular Volume (test code = 787-2) 87.8 81-99 [facility] CenterMean Corpuscular Hxsfzxnclu3388-47-87 15:21:00* Test Item Value Reference Range Interpretation Comments Mean Corpuscular Hemoglobin (test code = 785-6) 29.6 28-32 [facility] CenterMean Corpuscular Hemoglobin Concent 2018-02-07 15:21:00* Test Item Value Reference Range Interpretation Comments Mean Corpuscular Hemoglobin Concent (test code = 786-4) 33.7 31-35 [facility] CenterRed Cell Distribution Xxxnz6154-77-13 15:21:00* Test Item Value Reference Range Interpretation Comments Red Cell Distribution Width (test code = 35715-4) 12.7 11.7 -14.4 [facility] CenterPlatelet Fbvrq8503-67-04 15:21:00* Test Item Value Reference Range Interpretation Comments Platelet Count (test code = 777-3) 229 140-360 [facility] CenterNeutrophils (%) (Auto)2018-02-07 15:21:00 * Test Item Value Reference Range Interpretation Comments Neutrophils (%) (Auto) (test code = 12737-0) 68.1 38.7-80.0 [facility] CenterLymphocytes (%) (Auto)2018-02-07 15:21:00 * Test Item Value Reference Range Interpretation Comments Lymphocytes (%) (Auto) (test code = 736-9) 20.1 18.0-39.1 [facility] CenterMonocytes (%) (Auto)2018-02-07 15:21:00* Test Item Value Reference Range Interpretation Comments Monocytes (%) (Auto) (test code = 5905-5) 7.6 4.4-11.3 [facility] CenterEosinophils (%) (Auto)2018-02-07 15:21:00 * Test Item Value Reference Range Interpretation Comments Eosinophils (%) (Auto) (test code = 713-8) 3.6 0.0-6.0 [facility] CenterBasophils (%) (Auto)2018-02-07 15:21:00* Test Item Value Reference Range Interpretation Comments Basophils (%) (Auto) (test code = 706-2) 0.2 0.0-1.0 [facility] CenterIM GRANULOCYTES %2018-02-07 15:21:00* Test Item Value Reference Range Interpretation Comments IM GRANULOCYTES % (test code = IM GRANULOCYTES %) 0.4 0.0- 1.0 [facility] CenterNeutrophils # (Auto)2018-02-07 15:21:00* Test Item Value Reference Range Interpretation Comments Neutrophils # (Auto) (test code = 751-8) 5.7 2.1-6.9 [facility] CenterLymphocytes # (Auto)2018-02-07 15:21:00* Test Item Value Reference Range Interpretation Comments Lymphocytes # (Auto) (test code = 98003-0) 1.7 1.0-3.2 [facility] CenterMonocytes # (Auto)2018-02-07 15:21:00* Test Item Value Reference Range Interpretation Comments Monocytes # (Auto) (test code = 742-7) 0.6 0.2-0.8 [facility] CenterEosinophils # (Auto)2018-02-07 15:21:00* Test Item Value Reference Range Interpretation Comments Eosinophils # (Auto) (test code = 711-2) 0.3 0.0-0.4 [facility])2018-02-07 15:21:00* Test Item Value Reference Range Interpretation Comments Basophils # (Auto) (test code = 704-7) 0.0 0.0-0.1 [facility] CenterAbsolute Immature Granulocyte (auto 2018-02-07 15:21:00* Test Item Value Reference Range Interpretation Comments Absolute Immature Granulocyte (auto (tristan t code = Absolute Immature Granulocyte (auto) 0.03 0-0.1 [facility] CenterUrine NJU0380-75-01 00:12:00* Test Item Value Reference Range Interpretation Comments Urine WBC (test code = 5821-4) 6-10 0-5 H [facility] CenterU[facility] JEA0737-25-81 00:12:00* Test Item Value Reference Range Interpretation Comments Urine RBC (test code = 34854-8) 11-20 0-5 H [facility] CenterUrine Hponxtrs0192-22-06 00:12:00* Test Item Value Reference Range Interpretation Comments Urine Bacteria (test code = 19481-4) MANY NONE H [facility] CenterU[facility] Epithelial Czbav5860-37-52 00:12:00 * Test Item Value Reference Range Interpretation Comments Urine Epithelial Cells (test code = 76547-3) FEW NONE [facility] CenterU[facility] Transitional Epithelial Cells 2018-02-05 00:12:00* Test Item Value Reference Range Interpretation Comments Urine Transitional Epithelial Cells (test code = 8249-5) FEW NONE [facility] Czbgz6385-00-47 00:12:00* Test Item Value Reference Range Interpretation Comments Sodium Level (test code = 2951-2) 138 136-145 [facility]Potassium Scdmt0128-83-32 00:12:00* Test Item Value Reference Range Interpretation Comments Potassium Level (test code = 2823-3) 3.8 3.5-5.1 [facility] CenterChloride Lromq3629-57-79 00:12:00* Test Item Value Reference Range Interpretation Comments Chloride Level (test code = 2075-0) 105 98-107 [facility] CenterCarbon Dioxide Unoxv2899-63-20 00:12:00* Test Item Value Reference Range Interpretation Comments Carbon Dioxide Level (test code = 2028-9) 21 22-29 L [facility] CenterAnion Win2461-44-25 00:12:00* Test Item Value Reference Range Interpretation Comments Anion Gap (test code = 89760-1) 15.8 8-16 [facility] CenterBlood Urea Fvwzdrut3972-62-78 00:12:00* Test Item Value Reference Range Interpretation Comments Blood Urea Nitrogen (test code = 3094-0) 16 7-26 [facility] CenterCreatinine2018-06-22 00:12:00* Test Item Value Reference Range Interpretation Comments Creatinine (test code = 2160-0) 0.64 0.57-1.11 [facility] CenterBUN/Creatinine Uqxbi5938-54-69 00:12:00* Test Item Value Reference Range Interpretation Comments BUN/Creatinine Ratio (test code = 3097-3) 25 6-25 [facility] CenterEstimat Glomerular Filtration Rate 2018-02-05 00:12:00* Test Item Value Reference Range Interpretation Comments Estimat Glomerular Filtration Rate (test code = 51279-6) 60- >60 Ranges were taken from the National Kidney Disease Education Program and the [facility] Kidney Foundation literature.Reference ranges:60 or greater: Vipldl67-70 ( for 3 consecutive months): Chronic kidney disease 15 or less: Kidney failureCH[facility] HospitalGlucose Jtwbi6449-83-14 00:12:00* Test Item Value Reference Range Interpretation Comments Glucose Level (test code = OVZ6613) 94 74-118 [facility] CenterCalcium Ypshe8844-12-18 00:12:00* Test Item Value Reference Range Interpretation Comments Calcium Level (test code = 63575-6) 9.0 8.4-10.2 [facility] CenterTotal Nqnwstvbf0708-40-72 00:12:00* Test Item Value Reference Range Interpretation Comments Total Bilirubin (test code = 1975-2) 1.0 0.2-1.2 [facility] CenterAspartate Amino Transf (AST/SGOT) 2018-02-05 00:12:00* Test Item Value Reference Range Interpretation Comments Aspartate Amino Transf (AST/SGOT) (test code = Aspartate Amino Transf (AST/SGOT)) 26 5-34 [facility] CenterAlanine Aminotransferase (ALT/SGPT) 2018-02-05 00:12:00* Test Item Value Reference Range Interpretation Comments Alanine Aminotransferase (ALT/SGPT) (test code = 1742-6) 30 0-55 [facility] CenterTotal Mfqffsh6320-34-36 00:12:00* Test Item Value Reference Range Interpretation Comments Total Protein (test code = 2885-2) 7.2 6.5-8.1 [facility] CenterAlbumin2018-06-22 00:12:00* Test Item Value Reference Range Interpretation Comments Albumin (test code = 1751-7) 3.7 3.5-5.0 [facility] CenterGlobulin2018-06-22 00:12:00* Test Item Value Reference Range Interpretation Comments Globulin (test code = 69525-9) 3.5 2.3-3.5 [facility] CenterAlbumin/Globulin Bezxm8668-96-64 00:12:00 * Test Item Value Reference Range Interpretation Comments Albumin/Globulin Ratio (test code = 1759-0) 1.1 0.8-2.0 [facility] CenterAlkaline Kiszdseeaor0055-63-02 00:12:00* Test Item Value Reference Range Interpretation Comments Alkaline Phosphatase (test code = 6768-6) 72 40-150 [facility] CenterUrine Transitional Epithelial Cells 2018-02-05 00:12:00* Test Item Value Reference Range Interpretation Comments Urine Transitional Epithelial Cells (test code = 8249-5) FEW NONE H [facility] CenterUrine Transitional Epithelial Cells 2018-02-05 00:12:00* Test Item Value Reference Range Interpretation Comments Urine Transitional Epithelial Cells (test code = 8249-5) FEW NONE H [facility] CenterWhite Blood Qdsvv6169-27-04 00:00:00* Test Item Value Reference Range Interpretation Comments White Blood Count (test code = 6690-2) 8.91 4.8-10.8 [facility] CenterRed Blood Xkysh0988-05-13 00:00:00* Test Item Value Reference Range Interpretation Comments Red Blood Count (test code = 789-8) 4.80 3.6-5.1 [facility] CenterHemoglobin2018-06-22 00:00:00* Test Item Value Reference Range Interpretation Comments Hemoglobin (test code = 31402-1) 14.4 12.0-16.0 [facility] CenterHematocrit2018-06-22 00:00:00* Test Item Value Reference Range Interpretation Comments Hematocrit (test code = 4544-3) 41.8 34.2-44.1 [facility] CenterMean Corpuscular Dsncoy6198-39-01 00:00:00* Test Item Value Reference Range Interpretation Comments Mean Corpuscular Volume (test code = 787-2) 87.1 81-99 [facility] CenterMean Corpuscular Jpcwfndnsw1755-39-06 00:00:00* Test Item Value Reference Range Interpretation Comments Mean Corpuscular Hemoglobin (test code = 785-6) 30.0 28-32 [facility] CenterMean Corpuscular Hemoglobin Concent 2018-02-05 00:00:00* Test Item Value Reference Range Interpretation Comments Mean Corpuscular Hemoglobin Concent (test code = 786-4) 34.4 31-35 [facility] CenterRed Cell Distribution Ldwgo5650-94-30 00:00:00* Test Item Value Reference Range Interpretation Comments Red Cell Distribution Width (test code = 85184-9) 12.4 11.7 -14.4 [facility] CenterPlatelet Kieop8236-34-77 00:00:00* Test Item Value Reference Range Interpretation Comments Platelet Count (test code = 777-3) 236 140-360 [facility] CenterNeutrophils (%) (Auto)2018-02-05 00:00:00 * Test Item Value Reference Range Interpretation Comments Neutrophils (%) (Auto) (test code = 23916-9) 84.6 38.7-80.0 H [facility] CenterLymphocytes (%) (Auto)2018-02-05 00:00:00 * Test Item Value Reference Range Interpretation Comments Lymphocytes (%) (Auto) (test code = 736-9) 7.2 18.0-39.1 L [facility] CenterMonocytes (%) (Auto)2018-02-05 00:00:00* Test Item Value Reference Range Interpretation Comments Monocytes (%) (Auto) (test code = 5905-5) 6.2 4.4-11.3 [facility] CenterEosinophils (%) (Auto)2018-02-05 00:00:00 * Test Item Value Reference Range Interpretation Comments Eosinophils (%) (Auto) (test code = 713-8) 1.5 0.0-6.0 [facility] CenterBasophils (%) (Auto)2018-02-05 00:00:00* Test Item Value Reference Range Interpretation Comments Basophils (%) (Auto) (test code = 706-2) 0.2 0.0-1.0 [facility] CenterIM GRANULOCYTES %2018-02-05 00:00:00* Test Item Value Reference Range Interpretation Comments IM GRANULOCYTES % (test code = IM GRANULOCYTES %) 0.3 0.0- 1.0 [facility] CenterNeutrophils # (Auto)2018-02-05 00:00:00* Test Item Value Reference Range Interpretation Comments Neutrophils # (Auto) (test code = 751-8) 7.5 2.1-6.9 H [facility] CenterLymphocytes # (Auto)2018-02-05 00:00:00* Test Item Value Reference Range Interpretation Comments Lymphocytes # (Auto) (test code = 87523-5) 0.6 1.0-3.2 L [facility] CenterMonocytes # (Auto)2018-02-05 00:00:00* Test Item Value Reference Range Interpretation Comments Monocytes # (Auto) (test code = 742-7) 0.6 0.2-0.8 [facility] CenterEosinophils # (Auto)2018-02-05 00:00:00* Test Item Value Reference Range Interpretation Comments Eosinophils # (Auto) (test code = 711-2) 0.1 0.0-0.4 [facility] CenterBasophils # (Auto)2018-02-05 00:00:00* Test Item Value Reference Range Interpretation Comments Basophils # (Auto) (test code = 704-7) 0.0 0.0-0.1 [facility] CenterAbsolute Immature Granulocyte (auto 2018-02-05 00:00:00* Test Item Value Reference Range Interpretation Comments Absolute Immature Granulocyte (auto (tristan t code = Absolute Immature Granulocyte (auto) 0.03 0-0.1 [facility] CenterUrine Uwfqw6378-11-53 23:55:00* Test Item Value Reference Range Interpretation Comments Urine Color (test code = 5778-6) YELLOW YELLOW [facility] CenterUrine Nzhsidi6349-43-97 23:55:00* Test Item Value Reference Range Interpretation Comments Urine Clarity (test code = 29689-0) CLEAR CLEAR [facility] CenterUrine Specific Ylgehlk8146-91-58 23:55:00 * Test Item Value Reference Range Interpretation Comments Urine Specific Coy (test code = 5811-5) 1.025 1.010-1.02 5 [facility] CenterUrine hR8094-61-88 23:55:00* Test Item Value Reference Range Interpretation Comments Urine pH (test code = 34794-3) 6 5-7 [facility] CenterUrine Leukocyte Ucboufaj4721-46-11 23:55:00* Test Item Value Reference Range Interpretation Comments Urine Leukocyte Esterase (test code = 5799-2) NEGATIVE NEGATIVE [facility] CenterUrine Fugcmzx9724-26-65 23:55:00* Test Item Value Reference Range Interpretation Comments Urine Nitrite (test code = 57631-9) NEGATIVE NEGATIVE [facility] CenterUrine Fnuuuqs3559-86-50 23:55:00* Test Item Value Reference Range Interpretation Comments Urine Protein (test code = 5804-0) TRACE NEGATIVE H [facility] CenterUrine Glucose (UA)2018-02-04 23:55:00* Test Item Value Reference Range Interpretation Comments Urine Glucose (UA) (test code = 2349-9) NEGATIVE NEGATIVE [facility] CenterUrine Muugvtw7203-97-95 23:55:00* Test Item Value Reference Range Interpretation Comments Urine Ketones (test code = 71226-0) 3+ NEGATIVE H [facility] CenterUrine Koqibdmxxnfu1855-79-24 23:55:00* Test Item Value Reference Range Interpretation Comments Urine Urobilinogen (test code = 03766-8) 0.2 0.2-1 [facility] CenterUrine Gsoizijsj9363-68-96 23:55:00* Test Item Value Reference Range Interpretation Comments Urine Bilirubin (test code = 1978-6) 1+ NEGATIVE H [facility] CenterUrine Npjoe4508-46-76 23:55:00* Test Item Value Reference Range Interpretation Comments Urine Blood (test code = 12602-1) 4+ NEGATIVE H [facility] CenterUrine Mjbn7441-94-64 23:54:00* Test Item Value Reference Range Interpretation Comments Urine Test (test code = 2106-3) NEGATIVE NEGATIVE [facility] CenterUrine Dvkz9653-58-57 23:54:00* Test Item Value Reference Range Interpretation Comments Urine Test (test code = 2106-3) NEGATIVE NEGATIVE [facility] CenterUrine Oisr4592-33-76 23:54:00* Test Item Value Reference Range Interpretation Comments Urine Test (test code = 2106-3) NEGATIVE NEGATIVE [facility] CenterCARDIAC YGEMACV0181-50-79 21:58:00<0.02 [facility] HermannCHEM XNECG4133-38-29 21:58:00* Test Item Value Reference Range Interpretation Comments A/G Ratio (test code = A/G Ratio) 1.0 1 0.7-1.6 [facility] HermannCHEM HPBEP2672-15-77 21:58:00* Test Item Value Reference Range Interpretation Comments B/C Ratio (test code = B/C Ratio) 13 1 6-25 [facility]annCHEM VBTEG4120-42-39 21:58:003.5[facility] HermannCHEM PANEL 2018-01-12 21:58:0012.2[facility] HermannCHEM LXKXG7715-30-83 21:58:14496Wegyuhqe HermannCHEM VCTMJ0179-30-52 21:58:0076[facility] HermannCHEM GQVWO5379-45-26 21:58:0039[facility] HermannCHEM FVSCL9441-26-06 21:58:0038[facility] HermannCHEM MBQEJ2470-44-81 21:58:000.7[facility] HermannCHEM AILKB1879-42-13 21:58:0093 [facility]annCHEM YAVCQ1355-63-48 21:58:000.78[facility] HermannCHEM PANEL 2018-01-12 21:58:0010[facility] HermannCHEM EJEYF7897-14-13 21:58:58302Jorcgpfm HermannCHEM FTURM0429-37-96 21:58:008.3[facility] HermannCHEM XXYNL6477-32-82 21:58:007.0[facility] HermannCHEM BPHRT2443-63-19 21:58:003.5[facility] HermannCHEM QMKLD7296-85-30 21:58:0024[facility] HermannCHEM SHNOS4611-02-93 21:58:52999 [facility]annCHEM YCXOV0450-04-52 21:58:004.2[facility] HermannENDOCRINOLOGY 2018-01-12 21:58:00Negative *NA*(01/12/18 4:58 PM)[facility] HermannHEMATOLOGY 2018-01-12 21:58:002.4[facility] BpstoanQHIZEHZIDX7901-30-74 21:58:000.9[facility] YlhsaolXREIZRPHMG6355-00-26 21:58:006.6[facility] HlehutqXLLTIKTUDR5295-84-48 21:58:005.1[facility] UkjujdkYXGWIZLOXP1903-88-42 21:58:0022.9[facility] TPCHVKAKDQ9419-10-63 21:58:000.8[facility] QjxucfcSBTGGZLKLY4071-13-15 21:58:008.8 [facility] MnfhqgmZQKHHUNYFL0531-43-09 21:58:0062.4[facility] HermannHEMATOLOGY 2018-01-12 21:58:000.5[facility] LsialspQYHIMHFGAB4419-01-39 21:58:000.1[facility] QlipyhtBZJIGGTTSN2912-10-42 21:58:009.0[facility] MszavwkVDUICKVJQM4413-48-70 21:58:004.80[facility] WhzfsjuVEAWLLWJDJ6435-24-35 21:58:0010.6[facility] VRRJVBMVGS0862-25-40 21:58:0014.2[facility] KlwvoprBWHSETEASL7495-20-70 21:58:00 227[facility] StcrniiFVVFXKJNJQ1203-80-12 21:58:0012.7[facility] HermannHEMATOLOGY 2018-01-12 21:58:0033.4[facility] ZhyynzqOKINMWVIAY9649-88-05 21:58:0088.3[facility] SamfnbwTRGBXEWPJZ0549-07-53 21:58:0042.4[facility] UajivgvOETLIFUJRW3032-47-46 21:58:00* Test Item Value Reference Range Interpretation Comments MCH (test code = MCH) 29.5 pg 27.0-31.0 [facility] HermannCHEM FHOTE2162-04-05 05:53:10533Dwuwlysq HermannCHEM PANEL 2016-12-31 05:53:0086[facility] HermannCHEM MAEQI3337-98-45 05:53:13589Iqhfzgtz HermannCHEM LCKYU0773-52-70 05:53:009[facility] HermannCHEM MYIKV1898-44-02 05:53:000.74[facility] HermannCHEM NJEOV2531-78-88 05:53:007.1[facility] HermannCHEM RCHWC8918-35-47 05:53:0025[facility] HermannCHEM KZPFE4079-70-12 05:53:008.7 [facility]annCHEM KPRWW4232-95-78 05:53:003.8[facility] HermannCHEM PANEL 2016-12-31 05:53:16217Lucelsba HermannCHEM XAXBW0241-35-62 05:53:0013[facility] HermannCHEM GLRSH8419-89-85 05:53:0083[facility] HermannCHEM TXRBO2189-54-98 05:53:003.5[facility] HermannCHEM GAMTS3148-72-36 05:53:0022[facility] HermannCHEM GCVDF2558-80-62 05:53:000.4[facility] HermannCHEM OWMZJ4852-50-54 05:53:0012 [facility]annCHEM JYBDI5972-26-14 05:53:003.6[facility] HermannCHEM PANEL 2016-12-31 05:53:001.0[facility] HermannCHEM PHYTW7207-88-08 05:53:0011.8[facility] HermannCHEM ZRNDO8257-87-69 05:53:72604Vvtpzgpw ZoeqyrkOWWRLRXLRIJIX2980-47-00 05:53:00Negative *NA*(12/31/16 12:53 AM)[facility] LmeoxigJBPCHNITLK0189-15-33 05:53:0053.9[facility] TixppzkBCUQZCYBPM3402-47-98 05:53:004.9[facility] XJPHENASRA3612-68-46 05:53:001.2[facility] VesliteZSLJSQLNQO0330-38-11 05:53:005.0 [facility] ZwfwnwaLHIKSWISFT7751-33-87 05:53:0031.8[facility] HermannHEMATOLOGY 2016-12-31 05:53:008.2[facility] GwpsianPNZVMGIYDV2740-97-50 05:53:000.1[facility] FmcvjvaYYPWJCWHBY8902-70-34 05:53:003.0[facility] YyjcqmfGAPQXGDYLI7005-34-70 05:53:000.8[facility] TormdllOXKIGTBZKO6063-72-10 05:53:000.5[facility] HRJQNFDQLX4390-45-89 05:53:009.6[facility] SywrhqdRMNFDNBWCZ9902-66-90 05:53:00 33.1[facility] IclnlvdUIHMOSOOAU4973-48-40 05:53:0012.4[facility] HermannHEMATOLOGY 2016-12-31 05:53:32242Knrlioen EunkkvvQVHBZQIYOC6287-59-86 05:53:0089.8[facility] IxywtaaNDENNBWVYG3764-98-79 05:53:00* Test Item Value Reference Range Interpretation Comments MCH (test code = MCH) 29.7 pg 27.0-31.0 [facility] QsrzdwyEBXRWPMHJZ6730-52-18 05:53:0045.3[facility] HermannHEMATOLOGY 2016-12-31 05:53:009.3[facility] EblkhstPKKMLLLUVO3144-98-66 05:53:005.04[facility] XrfxdzkXPEQJMZITR4437-58-16 05:53:0015.0[facility] HermannURINE AND STOOL 2016-12-31 05:53:0033[facility]annURINE AND ZVRRM2949-69-30 05:53:0027 [facility] AND GMGGD5056-96-23 05:53:00Trace *ABN*(12/31/16 12:53 AM) [facility] AND CLGHZ8640-46-79 05:53:00Large *ABN*(12/31/16 12:53 AM) [facility] AND RBZWX5176-24-07 05:53:00Moderate *ABN*(12/31/16 12:53 AM)[facility]ann[facility] AND KAJPW5402-71-08 05:53:00Amber *ABN*(12/31/16 12:53 AM)[facility] AND WTQQE4050-61-13 05:53:00Positive *ABN*(12/31/16 12:53 AM)[facility]ann[facility] AND OXRUJ0855-69-79 05:53:002.0[facility] URINE AND GAFZV7713-60-43 05:53:00Trace *ABN*(12/31/16 12:53 AM)[facility] URINE AND PCSJU2379-36-04 05:53:00Cloudy *ABN*(12/31/16 12:53 AM)[facility] URINE AND NJNII2848-63-66 05:53:00* Test Item Value Reference Range Interpretation Comments UA Spec Grav (test code = UA Spec Grav) 1.025 1 [facility]annURINE AND ANQPS8560-22-67 05:53:00* Test Item Value Reference Range Interpretation Comments UA pH (test code = UA pH) 6.5 1 5.0-8.0 [facility] AND UYBHJ2804-54-81 05:53:00Negative (12/31/16 12:53 AM) [facility] HermannCHEM HUCTI7899-83-04 20:32:26562Hpvvsxgj HermannCHEM PANEL 2016-12-25 20:32:0096[facility] HermannCHEM MHKKQ6933-67-15 20:32:003.9[facility] HermannCHEM EHZQQ2528-74-27 20:32:0025[facility] HermannCHEM ZWIGR7619-40-09 20:32:000.9[facility] HermannCHEM TVAES2795-44-88 20:32:0016[facility] HermannCHEM YJYSX0582-90-65 20:32:0094[facility] HermannCHEM RWMIW2149-94-75 20:32:000.82 [facility]annCHEM UTIMP4926-67-08 20:32:0012[facility] HermannCHEM PANEL 2016-12-25 20:32:32801Evbpyuqr HermannCHEM TMQAR1193-02-99 20:32:24151Unjxmkzi HermannCHEM VGKMB8926-83-32 20:32:003.8[facility] HermannCHEM ZDZRT0758-34-93 20:32:007.9[facility] HermannCHEM BQAZV3708-07-46 20:32:008.8[facility] HermannCHEM XZZYU6645-95-81 20:32:0024[facility] HermannCHEM ADAUX1168-17-16 20:32:0082 [facility]annCHEM LKLNS7957-74-18 20:32:0013.8[facility] HermannCHEM PANEL 2016-12-25 20:32:0015[facility] HermannCHEM FPFOV4426-51-56 20:32:001.0[facility] HermannCHEM UQCBN2284-02-27 20:32:004.0[facility] RdqzulfJJZGODDJAW3702-69-02 20:32:00* Test Item Value Reference Range Interpretation Comments PTT (test code = PTT) 32.0 s 22.9-35.8 [facility] DgfzhrqFUZFLWKSPD9598-60-43 20:32:001.10[facility] HermannHEMATOLOGY 2016-12-25 20:32:00* Test Item Value Reference Range Interpretation Comments PT (test code = PT) 14.4 s 12.0-14.7 [facility] MuphtswUHXYEQRJQW8684-08-58 20:32:0015.1[facility] HermannHEMATOLOGY 2016-12-25 20:32:0045.6[facility] LlcwiufTGJWOVYRLV8070-98-44 20:32:0089.9[facility] XmwsyxmWZSEZBNZSG5452-27-97 20:32:00* Test Item Value Reference Range Interpretation Comments MCH (test code = MCH) 29.8 pg 27.0-31.0 [facility] OeywhmeSFTAVVHVRA3314-09-92 20:32:0010.7[facility] HermannHEMATOLOGY 2016-12-25 20:32:005.08[facility] CggyzceGDYUKFLUZL4969-86-39 20:32:0033.2[facility] UcjfvlqNNAUACBXWF0729-46-02 20:32:0012.7[facility] YnpjnrgJRFRLVPGMX7893-55-63 20:32:009.3[facility] IzeroisOURQRGHWYK7010-74-86 20:32:03023Zbtvtilo Charles AWUTRWPNDU9532-20-17 20:32:001.9[facility] DbyswdzOUKQEICIPV7756-70-27 20:32:000.7 [facility] GshehlfMDHOBBPKMT2337-14-91 20:32:006.7[facility] HermannHEMATOLOGY 2016-12-25 20:32:002.5[facility] BzsspkwQBAVBWVGVZ5247-13-09 20:32:000.7[facility] EysycflBNVEFEAMAN2514-17-85 20:32:007.2[facility] CoteqqkUJJAIWCCYB2479-07-01 20:32:000.2[facility] FxcvgwrMZUUVIDJMC8081-81-89 20:32:000.1[facility] IVGEZNVDVK8844-35-49 20:32:0067.6[facility] PdzbepyPKKJAIHEYL1718-08-06 20:32:00 23.1[facility] HermannCHEM KNGAY7541-34-31 01:59:24258Ndfunigv HermannCHEM PANEL 2016-07-20 01:59:001.0[facility] HermannCHEM OTGKS5071-58-49 01:59:003.9[facility] HermannCHEM RJQAS6834-52-22 01:59:0010[facility] HermannCHEM YVEGF9389-50-16 01:59:0013.0[facility] HermannCHEM NDVPX4580-69-36 01:59:0018[facility] HermannCHEM EJRID9237-22-51 01:59:0024[facility] HermannCHEM SZSYF6872-30-07 01:59:28821 [facility]annCHEM GOJUN1301-22-29 01:59:003.9[facility] HermannCHEM PANEL 2016-07-20 01:59:007.8[facility] HermannCHEM OQOKA9686-55-89 01:59:008.7[facility] HermannCHEM GDLMP6769-54-79 01:59:000.3[facility] HermannCHEM QGOTS3097-10-58 01:59:0079[facility] HermannCHEM FHXAP8286-63-53 01:59:000.70[facility] HermannCHEM EQLJV2264-47-91 01:59:007[facility] HermannCHEM BGBYO8162-92-57 01:59:0028[facility] HermannCHEM YRMJS8384-57-86 01:59:32646Kgbdyzyx HermannCHEM ACAEL4589-43-55 01:59:004.0[facility] HermannCHEM GZYXA7877-61-56 01:59:16887Uekcpbvk HermannCHEM IWIHC7151-25-91 01:59:0084[facility] ObiwmbeFMFKBHCASC8002-95-88 01:59:0012.6 [facility] JadejcuGSSGTFOWZF6976-33-87 01:59:18533Yyrhbzcw HermannHEMATOLOGY 2016-07-20 01:59:0015.3[facility] LzrhrgyCAXVWLDYOM0653-12-18 01:59:005.08[facility] FtnunkpWUIFEKLAVW9696-72-98 01:59:0010.8[facility] MdmkxspNWSXAKJUIU3976-87-63 01:59:008.9[facility] YrhkzvtELKCWDTIZY5635-87-67 01:59:0088.5[facility] DMSLIOOJZC3614-20-63 01:59:0044.9[facility] YoobktePPJDLZZWPU0213-27-81 01:59:00* Test Item Value Reference Range Interpretation Comments MCH (test code = MCH) 30.1 pg 27.0-31.0 [facility] LyktdiyZLAEBSAAHT9202-02-13 01:59:0034.0[facility] HermannHEMATOLOGY 2016-07-20 01:59:000.6[facility] BctripuPIEKNTDXIJ7058-36-32 01:59:000.1[facility] CrstersXAFFBWLARQ8843-62-09 01:59:002.6[facility] KqxqidwXJIAUCKFCC0279-72-06 01:59:000.5[facility] LoeuoliXSJCBTDZLE9041-21-89 01:59:007.0[facility] CBGJKIJNSU6113-51-55 01:59:005.6[facility] IjptiioEPLCMWDPPK5810-44-90 01:59:000.9 [facility] XahewciHIMKXPBWAM1005-02-12 01:59:004.6[facility] HermannHEMATOLOGY 2016-07-20 01:59:0065.0[facility] PihqsytACIHAUNASK0750-40-84 01:59:0023.9[facility] HermannURINE AND IOIBZ6790-50-98 01:59:008.0[facility]annURINE AND STOOL 2016-07-20 01:59:00Clear (07/19/16 7:59 PM)[facility]OL 2016-07-20 01:59:001.005[facility] [id number] 01:59:00 Negative (07/19/16 7:59 PM)[facility] [id number] 01:59:00 Small *ABN*(07/19/16 7:59 PM)[facility] HCQIT5369-96-80 01:59:00 Negative (07/19/16 7:59 PM)[facility] OELLZ0869-04-12 01:59:00 Negative *NA*(07/19/16 7:59 PM)[facility] SQRFJ9173-87-55 01:59:00 <1[facility] RQSXV9551-42-42 01:59:001[facility] CHEM 2016-07-20 01:59:00Negative (07/19/16 7:59 PM)[facility]annCHEM PANEL 2016-04-14 06:13:000.66[facility] HermannCHEM LZSCA4245-96-63 06:13:003.7[facility]annCHEM BWOYI9587-24-34 06:13:19330Ypgqjggt HermannCHEM BHLYE8268-44-29 06:13:0087[facility]annCHEM ORHFX9168-05-36 06:13:0013[facility]annCHEM VZUBN2529-63-98 06:13:62770Hjtmsglo HermannCHEM FEUKG9259-19-50 06:13:0022 [facility]annCHEM UZTAZ4786-55-73 06:13:003.8[facility]annCHEM PANEL 2016-04-14 06:13:0026[facility]annCHEM NHOST9481-87-32 06:13:02692Oqacnqby HermannCHEM QXMMN6437-77-12 06:13:000.3[facility]annCHEM XEEAY5352-49-83 06:13:0072[facility]annCHEM ZSRMJ7014-65-18 06:13:0013[facility]annCHEM OWOFD3147-29-23 06:13:007.4[facility]annCHEM WIDFJ7652-80-14 06:13:008.3 [facility]annCHEM MAABM7459-53-50 06:13:003.6[facility]annCHEM PANEL 2016-04-14 06:13:001.1[facility]annCHEM RWBDS6098-42-64 06:13:0020[facility]annCHEM FHDNL6963-14-21 06:13:008.7[facility]annCHEM [id number] 06:13:08378Adipvszi HermannCHEM IJXMU2961-04-28 06:13:0045[facility] KFKORPZGXI9317-64-98 06:13:00* Test Item Value Reference Range Interpretation Comments MCH (test code = MCH) 29.2 pg 27.0-31.0 [facility] FxrcvoqKKCHIURBRO8172-95-89 06:13:0087.0[facility]annHEMATOLOGY 2016-04-14 06:13:0040.7[facility] JjbehviQDCPYPUWUH1605-41-28 06:13:0013.6[facility] CqmjhikYUMBGSOMLT8458-72-62 06:13:004.67[facility] ZxjpjesCZNYLKSKCY1200-42-31 06:13:008.[facility] YbgaogmHMVQOMIZQJ0220-42-64 06:13:51467Ksjchccg Charles SQIVWZJUIT6753-78-24 06:13:0033.[facility] CqiygydPIFXYNYOTU7173-13-83 06:13:00 13.0[facility] BsnouwpIQHTZCHIJO1578-85-40 06:13:0011.2[facility]annHEMATOLOGY 2016-04-14 06:13:000.9[facility] ZndvrtdSFPRCGVVYG9248-81-20 06:13:003.3[facility] XpjlhunJZSDAVGTWL8115-70-38 06:13:006.3[facility] MamgupiDRUCYGZMXQ1954-30-00 06:13:000.8[facility] MirdnbcCTPSUYWFDF5041-19-34 06:13:005.9[facility] PSFXHYVHYT8887-99-54 06:13:008.2[facility] FsnvzhxVQNHEUKYEC2576-40-62 06:13:00 29.1[facility] PjrrggzKSNIIQRPZF1922-22-97 06:13:0056.0[facility]annHEMATOLOGY 2016-04-14 06:13:000.1[facility] WlfctkgAOJUPGMIBZ2431-70-67 06:13:000.7[facility] FZIYD4713-96-83 06:13:00Large *ABN*(04/14/16 1:13 AM)[facility] HELNZ5654-00-58 06:13:00Negative *NA*(04/14/16 1:13 AM)[facility] KHITD4544-70-24 06:13:005.0[facility] STOOL 2016-04-14 06:13:001.020[facility] UGHBC3370-66-61 06:13:00Slight *ABN*(04/14/16 1:13 AM)[facility] UMUXO0090-80-98 06:13:00 Negative (04/14/16 1:13 AM)[facility] JCEVH6427-84-62 06:13:007 [facility] UXIXW0268-25-41 06:13:003[facility] GQDXB2559-78-13 06:13:00Trace *ABN*(04/14/16 1:13 AM)[facility] PRNMN1851-44-83 06:13:00Yellow *NA*(04/14/16 1:13 AM)[facility] CHEM 2016-04-14 06:13:00Negative (04/14/16 1:13 AM)[facility] STOOL 2016-02-24 05:51:007[facility] OSWRH3678-40-13 05:51:00Negative *NA*(02/24/16 12:51 AM)[facility] WHKII8544-11-74 05:51:00Trace *ABN*(02/24/16 12:51 AM)[facility] CSOPB1626-56-33 05:51:002.0 [facility] NFTTF0218-89-81 05:51:00Negative (02/24/16 12:51 AM) [facility] EFNEI2686-52-30 05:51:00Small *ABN*(02/24/16 12:51 AM) [facility] KBLZG1706-96-99 05:51:008[facility] MBEPB1604-82-09 05:51:00Clear (02/24/16 12:51 AM)[facility] STOOL 2016-02-24 05:51:001.027[facility] XFASB6139-08-42 05:51:007.0 [facility] PLIR2671-81-72 05:51:00Negative (02/24/16 12:51 AM)[facility]annCHEM IBCGI6620-80-11 04:28:0081[facility]annCHEM LFAJG8637-92-73 04:28:0032[facility]annCHE[facility] IKUQV1965-53-93 04:28:0024[facility]annCHEM GWLAF7223-80-34 04:28:03757Xumldfbe HermannCHEM GCXVK8841-23-79 04:28:000.6 [facility]CHE[facility] GDNAI4064-29-31 04:28:000.74[facility]annCHEM PANEL 2016-02-24 04:28:0010[facility]annCHE[facility] VJCQI8722-75-78 04:28:0087[facility]annCHE[facility] KMIPW6353-32-31 04:28:00See Note 1(02/23/16 11:28 PM)[facility] CHEM NNOXS8617-65-37 04:28:67694Byikuclj HermannCHEM AXAQD6306-21-34 04:28:008.8 [facility]annCHE[facility] TATHQ9079-92-72 04:28:0026[facility]annCHEM PANEL 2016-02-24 04:28:27021Acjoxtar HermannCHEM LCUSG9913-51-86 04:28:0014[facility]annCHE[facility] RYLBW5136-22-10 04:28:008.0[facility]annCHE[facility] CRMJT9817-66-95 04:28:000.9[facility]annCHEM CMVAC7962-56-00 04:28:004.2[facility]annCHEM UCGRK1628-91-69 04:28:003.8[facility]annCHEM UQOKM2473-22-02 04:28:03662 [facility]annCHE[facility] CINZE0199-73-49 04:28:0045[facility]annHEMATOLOGY 2016-02-24 04:28:0044.3[facility] RjbmipoBCXKAQDIAR5352-02-30 04:28:0014.4[facility] GyamqwbJFUJTYFZIL6572-19-63 04:28:004.96[facility] YlthwvdCSLUDRRPAK3954-83-61 04:28:0012.3[facility] McwmkedCBICXJSZOX5624-06-90 04:28:0089.3[facility] EZHPXNIAFZ4001-65-93 04:28:85966Mblonhbp KxqhkkpKWGUYQSDPW4891-78-11 04:28:00 13.1[facility] HjpfheuQVTBYJXWVD3140-43-81 04:28:0032.4[facility]annHEMATOLOGY 2016-02-24 04:28:00* Test Item Value Reference Range Interpretation Comments MCH (test code = MCH) 29.0 pg 27.0-31.0 [facility] ZacyppgUZXXVXYRRY6742-38-93 04:28:008.7[facility]annHEMATOLOGY 2016-02-24 04:28:0062.1[facility] KarphwnWWNDGOACYG4171-63-51 04:28:000.8[facility] WhoyhceEFQIHSNIWN3226-36-82 04:28:004.6[facility] XoeltplVNNOGJXXAH4748-10-99 04:28:007.6[facility] LrmxxokMMUQBKZGLL0660-81-64 04:28:0024.9[facility] UELKYCWZJF5508-95-12 04:28:007.7[facility] TqjljyfMTDVBIQTAE3889-61-41 04:28:000.6 [facility] YvqohulXIGRGOYMRM5204-86-15 04:28:003.1[facility]annHEMATOLOGY 2016-02-24 04:28:000.1[facility] QzopymdBTIDYMTGSX0172-97-51 04:28:000.9[facility] HermannCHEM MYROS2459-18-91 02:50:50350Kxermxyl HermannCHEM IRIQY8603-38-57 02:50:004.1[facility]annCHEM QMJLZ5552-36-87 02:50:000.9[facility]annCHEM TEEDU4125-16-26 02:50:0011.0[facility]annCHEM HRGBV6662-08-47 02:50:0011 [facility]annCHEM UYOKY7929-39-97 02:50:79330Aycceipg HermannCHEM PANEL 2016-01-17 02:50:007.9[facility]annCHEM MNLYL3519-47-64 02:50:0016[facility]annCHEM SHUXK6460-84-42 02:50:000.4[facility]annCHEM SWBSN0356-91-04 02:50:004.0[facility]annCHEM PJOFL9730-01-91 02:50:0027[facility]annCHEM JXIXV1120-26-69 02:50:06747Zsqlutoc HermannCHEM YZOIX1476-86-77 02:50:008.5 [facility]annCHE[facility] TNZXT2129-58-99 02:50:22636Vcwhduza HermannCHEM PANEL 2016-01-17 02:50:0084[facility]annCHEM TWJLC6636-24-61 02:50:0088[facility]annCHEM ILHBF0753-41-71 02:50:000.66[facility]annCHEM JXAFN3026-74-96 02:50:007[facility]annCHEM RRSZE3507-20-09 02:50:003.8[facility]annCHEM VQSHK8862-06-76 02:50:0027[facility] HxbyywhUPVUWXSRYF3340-59-16 02:50:006.4 [facility] AhsywyfZEFAJMIRDQ8630-56-13 02:50:002.4[facility]annHEMATOLOGY 2016-01-17 02:50:000.6[facility] HxfupxiPZJLNUJUOO9290-81-81 02:50:000.4[facility] DfkpgmfIXYLUVEQYC6469-86-19 02:50:000.1[facility] KbgsqqoBCGPXABVQX5747-01-69 02:50:006.3[facility] XwmlqjqHDZGTBYJZC5960-13-21 02:50:004.5[facility] YPZLYJDFPE4019-74-25 02:50:000.9[facility] VkraevnXXQTMBRWPK0767-13-68 02:50:00 24.2[facility] ZbreosoFSITQIDBPX3193-84-37 02:50:0064.1[facility]annHEMATOLOGY 2016-01-17 02:50:008.4[facility] ZsfwyccPTEZYHNYBA7739-68-18 02:50:0089.2[facility] FkcivneRNBFYCAIXS0487-38-52 02:50:00* Test Item Value Reference Range Interpretation Comments MCH (test code = MCH) 29.7 pg 27.0-31.0 [facility] UmsibzpZJEJLQQXAA0017-63-61 02:50:0033.3[facility] HermannHEMATOLOGY 2016-01-17 02:50:0013.2[facility] KpjfhpgKSRHPDTCGV9841-74-02 02:50:0014.9[facility] GpthmveZEUKDGEHHR0576-79-69 02:50:0044.7[facility] GymjsnnTBZQBUUQTG7386-60-32 02:50:005.01[facility] DxfxgheLOMFMSPWEP2399-92-82 02:50:95542Vkuztrkp [place] NMYUZJSKDT8051-64-79 02:50:0010.0[facility] YGMYU9996-33-68 02:15:00Negative (01/16/16 9:15 PM)[facility] SWWCW1907-77-07 02:15:00Negative (01/16/16 9:15 PM)[facility] ZCPUE8226-48-75 02:15:00* Test Item Value Reference Range Interpretation Comments UA Spec Grav (test code = UA Spec Grav) 1.015 1 [facility] SKMSF2789-52-59 02:15:00* Test Item Value Reference Range Interpretation Comments UA pH (test code = UA pH) 7.5 1 5.0-8.0 [facility] CNJBI8197-65-75 02:15:00Negative (01/16/16 9:15 PM) [facility] JTACM7129-85-39 02:15:00Clear (01/16/16 9:15 PM)[facility] VPPQN6378-06-52 02:15:00Yellow *NA*(01/16/16 9:15 PM)[facility] MCSNZ9003-66-50 02:15:000.2[facility] STOOL 2016-01-17 02:15:00Negative (01/16/16 9:15 PM)[facility] STOOL 2016-01-17 02:15:00Large *ABN*(01/16/16 9:15 PM)[facility] STOOL 2016-01-17 02:15:00Negative *NA*(01/16/16 9:15 PM)[facility] STOOL 2016-01-17 02:15:00Negative *NA*(01/16/16 9:15 PM)[facility] CHEM 2016-01-17 02:15:00Negative (01/16/16 9:15 PM)[facility] STOOL 2015-10-13 09:42:00Slight *ABN*(10/13/15 3:42 AM)[facility] STOOL 2015-10-13 09:42:001.026[facility] LTNPQ2975-40-92 09:42:006.0 [facility] QLFZT7611-49-60 09:42:007[facility] NSYJI4193-06-35 09:42:006[facility] WOTHK9148-25-55 09:42:00 Negative (10/13/15 3:42 AM)[facility] EIHTR9109-58-57 09:42:00 Negative (10/13/15 3:42 AM)[facility] LJZHG8548-46-59 09:42:00 Large *ABN*(10/13/15 3:42 AM)[facility] DRKYB6482-06-74 09:42:00 Negative *NA*(10/13/15 3:42 AM)[facility] MTOQ6687-10-80 09:42:00 Negative (10/13/15 3:42 AM)[facility]annCHEM VQYNI6843-60-06 08:33:003.9 [facility]annCHEM VDGAI4775-81-62 08:33:001.0[facility]annCHEM PANEL 2015-10-13 08:33:0013[facility]annCHEM MCXHJ3693-03-17 08:33:009.5[facility]annCHEM VJHXV4783-08-80 08:33:28813Engkrwvl HermannCHEM OMMOK8515-34-36 08:33:000.7[facility]annCHEM XWCQB9058-95-97 08:33:0079[facility]annCHEM NBMPL6869-13-62 08:33:0023[facility]annCHEM HOPWV2188-28-61 08:33:0035 [facility]annCHE[facility] RIQDX7865-38-25 08:33:003.8[facility]annCHEM PANEL 2015-10-13 08:33:007.7[facility]annCHEM ZULWE3075-30-36 08:33:008.8[facility]annCHEM YAMKF9687-20-40 08:33:0028[facility]annCHEM LLNRL7755-05-17 08:33:98831Dkpcvcxc HermannCHEM PWQMR8660-01-33 08:33:003.5[facility]annCHEM PPNKB9806-69-43 08:33:000.70[facility]annCHEM EGBHN4929-18-45 08:33:009 [facility]annCHE[facility] QQQYM4885-73-49 08:33:0094[facility]annCHEM PANEL 2015-10-13 08:33:54357Jqmuagwp HermannCHEM SHSUQ6447-41-89 08:33:0050[facility]annCHEM LZPVQ5759-43-19 08:33:14601Lfelsasw KgvzvpkXCWZHPQDBM5732-92-10 08:33:05109Iwuqkyhl NsxbquqQHDNBBHNQZ6466-68-51 08:33:009.7[facility] XYULEPXITY7653-55-98 08:33:0033.4[facility] VfmtjyaHMEIOTVTDI0455-34-85 08:33:00 12.5[facility] XlghcwwNITRQRJEYJ4068-63-97 08:33:009.9[facility]annHEMATOLOGY 2015-10-13 08:33:005.04[facility] GphfopbOTVXLYBOBJ3429-02-66 08:33:0015.1[facility] UykjvvkVZCSWDYPIM5574-85-35 08:33:00* Test Item Value Reference Range Interpretation Comments MCH (test code = MCH) 29.9 pg 27.0-31.0 [facility] FhiifnhUSQCGKZIDS4432-72-61 08:33:0045.2[facility]annHEMATOLOGY 2015-10-13 08:33:0089.7[facility] SlxytiuMVGCRHLRBO8216-89-47 08:33:000.6[facility] AmsietrALHQMFNWSJ9556-70-72 08:33:000.1[facility] LwapcdcGPWNXYJJRT0867-34-91 08:33:003.2[facility] ZkublclHUBVODDQYC8383-82-53 08:33:000.8[facility] UQLLJMDJQZ4312-85-53 08:33:005.1[facility] FykezpyQBEKVHWJOL7795-33-47 08:33:001.0 [facility] LybspowGZXNTQRVOG9859-97-44 08:33:008.5[facility]annHEMATOLOGY 2015-10-13 08:33:006.2[facility] AzdirrwHONCUKLXPZ5555-07-21 08:33:0051.7[facility] FhpwqwbQTKRPZMPHG1647-97-63 08:33:0032.6[facility] JdebvvnQSCOGZWRMKGY7066-26-72 08:31:003.6[facility] HermannCHEM ZMWFH0714-29-30 07:16:57708Ygxlamls HermannCHEM DATUI8268-10-27 07:16:0057[facility]annCHEM EGNMI5244-03-75 07:16:0034 [facility]annCHE[facility] ZOEYJ4478-83-95 07:16:000.8[facility]annCHEM PANEL 2015-07-04 07:16:004.2[facility]annCHEM DLKHU2164-15-05 07:16:000.7[facility]annCHEM ATSUH2175-51-03 07:16:0080[facility]annCHEM EJULI3562-28-78 07:16:56072Qumiiket HermannCHEM XWYVS1190-72-55 07:16:81881Nlqzkpjb [facility]annCHEM GXBWS1185-50-87 07:16:00See Note 1(07/04/15 1:16 AM)[facility]annCHEM PANEL 2015-07-04 07:16:0011[facility]annCHEM JOETA5136-26-34 07:16:000.74[facility]annCHEM TKKFC3686-37-65 07:16:0085[facility]annCHEM AQSPZ0546-03-64 07:16:007.7[facility]annCHEM ROBLL6888-42-44 07:16:003.5[facility]annCHEM MTJHB1707-12-05 07:16:0015[facility]annCHEM QPMLN7144-50-19 07:16:008.7 [facility]annCHEM SOEWS0633-14-05 07:16:0024[facility]annCHEM PANEL 2015-07-04 07:16:88553Zydlhiss TgrnusaYPGRRSRBBV5104-84-24 07:16:000.1[facility] OisfdieYLJIKUYFUI4373-43-75 07:16:000.7[facility] DsshxxfZYCSGJMPXL0187-57-24 07:16:002.7[facility] MkcwwrjGCHTDDHBIH2883-90-63 07:16:007.5[facility] JJPHERBGVM7405-07-35 07:16:001.0[facility] TxxuhdeTDUOVVTRJF1478-92-05 07:16:005.5 [facility] IdzjnefTJYQZJEBYB8342-75-47 07:16:001.0[facility]annHEMATOLOGY 2015-07-04 07:16:008.3[facility] BkfeoxmLQBRRSIBER9473-85-34 07:16:0022.4[facility] UlbyoetRLXZFXJCKM3175-22-40 07:16:0062.8[facility] HenkrnsSQPHWJCDOJ1846-73-75 07:16:00* Test Item Value Reference Range Interpretation Comments MCH (test code = MCH) 29.5 pg 27.0-31.0 [facility] PlzgfxvCCIPEROZRJ7761-86-67 07:16:009.4[facility]annHEMATOLOGY 2015-07-04 07:16:10017Rzvzqtwr LddlgpaZXRQRMMRXL7817-51-27 07:16:0012.7[facility] MfmtnibGEHDIZGNBK9721-51-10 07:16:0032.5[facility] DylwnokAYUZRYIDZO6410-92-80 07:16:0090.7[facility] FzqpdzvIBOFFXRAAR1658-35-30 07:16:0043.1[facility] SRJDWUUPYU3768-69-98 07:16:0014.0[facility] MezhmmgBJCEZMPSHT8828-54-18 07:16:00 4.76[facility] DovbxtfRNKGAQMLSI5839-08-48 07:16:0012.0[facility] JPMEN5357-45-32 07:16:001[facility] YXGBD6243-90-67 07:16:00 Negative (07/04/15 1:16 AM)[facility] HEABI0021-93-69 07:16:00 Small *ABN*(07/04/15 1:16 AM)[facility] UHABW7462-26-22 07:16:00 Negative (07/04/15 1:16 AM)[facility] TOFAF5138-19-81 07:16:004 [facility] VVYYH7905-69-29 07:16:007.0[facility] WOGSL5293-02-40 07:16:00Negative *NA*(07/04/15 1:16 AM)[facility] SQXRG1206-01-97 07:16:00Yellow *NA*(07/04/15 1:16 AM)[facility] MMDNP2243-36-23 07:16:001.027[facility] XSWQB5787-48-34 07:16:00 Marked *ABN*(07/04/15 1:16 AM)[facility] OPWG1816-61-28 07:16:00 Negative (07/04/15 1:16 AM)[facility] ABJXX5097-24-74 07:36:002 [facility] MPREA6568-30-07 07:36:00Negative (05/17/15 2:36 AM) [facility] JLDBN2117-26-07 07:36:00<1[facility] UWAKX2338-25-11 07:36:00Negative (05/17/15 2:36 AM)[facility] MNSOQ0363-94-03 07:36:00Small *ABN*(05/17/15 2:36 AM)[facility] PDRRB7611-87-22 07:36:00Negative *NA*(05/17/15 2:36 AM)[facility] LSFQF9826-40-00 07:36:00Yellow *NA*(05/17/15 2:36 AM)[facility] BMBGF9364-98-48 07:36:00Clear (05/17/15 2:36 AM)[facility] STOOL 2015-05-17 07:36:001.016[facility] LGZWB3256-91-62 07:36:006.0 [facility] QMRP9007-38-36 07:36:00Negative (05/17/15 2:36 AM)[facility] HermannMOLECULAR FPCTEBEOTW4812-97-67 12:19:00Negative *NA*(05/15/15 7:19 AM) [facility]annMOLECULAR MMYWJVNAOY0619-54-70 12:19:00Endocervix *NA*(05/15/15 7:19 AM)[facility]annMOLECULAR TWWTYEYVRK2487-69-49 12:19:00Endocervix *NA*(05/15/15 7:19 AM)[facility]annMOLECULAR HTCFJDRUFR2846-34-96 12:19:00 Negative *NA*(05/15/15 7:19 AM)[facility]annCHEM KLFGA5289-34-90 07:57:003.5 [facility]annCHE[facility] ZOKEP2920-87-62 07:57:001.1[facility]annCHEM PANEL 2015-05-15 07:57:009[facility]annCHEM WFYTH1746-45-82 07:57:0011.4[facility]annCHEM UDRDM4102-95-43 07:57:007[facility]annCHEM FLTIE7254-92-53 07:57:0087[facility]annCHEM NEKYR1113-90-91 07:57:007.3[facility]annCHEM EHSME8495-10-02 07:57:0032[facility]annCHEM MIRYI8624-73-28 07:57:0024 [facility]CHE[facility] FTSMF9055-17-21 07:57:003.8[facility]annCHEM PANEL 2015-05-15 07:57:0087[facility]annCHEM XIUIH8312-05-09 07:57:0016[facility]annCHEM TVKGZ9867-90-36 07:57:000.7[facility]annCHEM JNKWY4515-42-80 07:57:38603Kqhwsxoi [facility]annCHEM PRRCR6416-09-60 07:57:18753Etvmcfrt HermannCHEM GHHZS4049-32-74 07:57:003.4[facility]annCHEM BVPXA1601-88-69 07:57:008.6 [facility]annCHE[facility] TFRSU4127-03-28 07:57:04576Neqbwrsc HermannCHEM PANEL 2015-05-15 07:57:000.8[facility] EdzxhdmIKLIGXDRMD8020-98-02 07:57:46656Piurgjup PwzxiltRFKNCJTEJK9134-51-57 07:57:0013.1[facility] WqimlhgMTRXXMCDEE5921-80-11 07:57:008.9[facility] BvyepqcOELGVCZXEW4344-03-71 07:57:0013.5[facility] EPWTURUOII7357-37-74 07:57:0014.1[facility] WvjtegpGARWRFWHPS3774-76-67 07:57:00 4.85[facility] SemanvgXVBHMKUHPG9993-95-40 07:57:0044.3[facility]annHEMATOLOGY 2015-05-15 07:57:0091.4[facility] OcivtlqLIUBCHSBJS8795-04-27 07:57:00* Test Item Value Reference Range Interpretation Comments MCH (test code = MCH) 29.1 pg 27.0-31.0 [facility] MevmaaoVVQXYNDKZF1823-73-04 07:57:0031.9[facility]annHEMATOLOGY 2015-05-15 07:57:0061.6[facility] AkaqbglCLQATMJEIX3684-07-42 07:57:003.3[facility] MrltnsmQLTISECBSZ6042-71-28 07:57:000.7[facility] YoxrjwpYSUTVXFICA5322-35-62 07:57:001.0[facility] RqqvermHVJGXMCJKE7651-47-52 07:57:000.2[facility] TPMAAHNXAN4491-11-03 07:57:007.1[facility] JiqufpoVIMZKRQOXL7033-25-95 07:57:00 24.6[facility] QytnzeoNQKUEMXUEE8266-57-36 07:57:008.3[facility]annHEMATOLOGY 2015-05-15 07:57:001.2[facility] ByhrfqdXBPLPYCVWR7585-59-42 07:57:005.5[facility] GLFHZ8040-10-90 07:57:001[facility] STOOL 2015-05-15 07:57:002[facility] BMXKW7723-48-31 07:57:00Moderate *ABN*(05/15/15 2:57 AM)[facility] UFPON0920-80-01 07:57:00Negative *NA*(05/15/15 2:57 AM)[facility] BNHWB4480-89-75 07:57:006.0 [facility] IEZMF3982-57-68 07:57:00Negative (05/15/15 2:57 AM) [facility] ACDMC2360-02-54 07:57:004.0[facility] EGWIX8409-96-31 07:57:00Negative (05/15/15 2:57 AM)[facility] TKMCJ9987-16-89 07:57:001.024[facility] KUJVE5577-59-68 07:57:00 Clear (05/15/15 2:57 AM)[facility] ZSBXQ7589-60-13 07:57:00Yellow *NA*(05/15/15 2:57 AM)[facility] MUXQ2548-47-45 07:57:00Negative (05/15/15 2:57 AM)[facility] EOLEN5361-69-88 08:34:00Negative (02/14/15 3:34 AM)[facility] FPAUR7170-19-30 08:34:00Large *ABN*(02/14/15 3:34 AM)[facility] PFJBN3257-01-31 08:34:00Small *ABN*(02/14/15 3:34 AM)[facility] HIDHI7636-37-48 08:34:00Trace *ABN*(02/14/15 3:34 AM)[facility] RRAUI0740-33-78 08:34:00Negative (02/14/15 3:34 AM)[facility] FXDNF8170-19-32 08:34:000.2[facility] RFNUB2999-70-13 08:34:00Negative (02/14/15 3:34 AM)[facility] WHQXL5078-97-60 08:34:00* Test Item Value Reference Range Interpretation Comments UA pH (test code = UA pH) 6.0 1 5.0-8.0 [facility] NHLPS8966-68-15 08:34:00* Test Item Value Reference Range Interpretation Comments UA Spec Grav (test code = UA Spec Grav) 1.025 1 [facility] DQSME5058-98-22 08:34:00Slight Cloudy (02/14/15 3:34 AM) [facility] AHVXL2757-88-96 08:34:00Yellow *NA*(02/14/15 3:34 AM) [facility] [id number] 08:34:00None Seen 3(02/14/15 3:34 AM) [facility] [id number] 08:34:00Negative (02/14/15 3:34 AM)[facility] ODFYO5290-03-73 06:10:000.4[facility] LCLAI1579-86-50 06:10:0065[facility] SSFWR6220-13-30 06:10:000.1[facility] FCCHM5064-57-14 06:10:001.0[facility] DZTYJ7885-82-38 06:10:003.8 [facility] AUKCF8648-31-16 06:10:003.9[facility] PANEL 2015-02-14 06:10:007.7[facility] FVLCT2893-18-44 06:10:0023[facility] FEYOQ6492-36-61 06:10:0040[facility] XJOEO5534-93-53 06:10:000.5[facility] DIIRB1934-89-56 06:10:0087[facility] SOPXN4563-65-76 06:10:0022[facility] YFUKT1336-42-39 06:10:64922 [facility] RFPQL3706-15-85 06:10:000.9[facility] PANEL 2015-02-14 06:10:003.5[facility] KQLAP8332-05-84 06:10:0083[facility] EFCPT9305-64-93 06:10:005[facility] UITWY9292-95-42 06:10:0016.5[facility] ZQOZI6706-61-56 06:10:009.2[facility] CQMGS3770-70-11 06:10:75540Uzegcgxr [facility] SXPER8146-74-32 05:56:00 Moderate *ABN*(09/29/14 11:56 PM)[facility] UKUPW3564-60-45 05:56:00Negative *NA*(09/29/14 11:56 PM)[facility] RRQSV8133-85-25 05:56:00Trace *ABN*(09/29/14 11:56 PM)[facility] [id number] 05:56:00Negative (09/29/14 11:56 PM)[facility] LUJPK4243-43-38 05:56:002[facility] VEGIN4241-53-39 05:56:002[facility] ZRPBY6913-16-79 05:56:00Yellow *NA*(09/29/14 11:56 PM)[facility] FGIWE9824-45-33 05:56:006.0[facility] ZQMRY2782-42-82 05:56:001.020[facility] TRMDN7895-98-52 05:56:00Marked *ABN*(09/29/14 11:56 PM)[facility] DQFUJ0128-44-00 05:55:87245Xgnmffyw HermannCHEM YJLSX1386-54-08 05:55:231.9[facility] GMYFQ7836-14-99 05:55:234.0[facility] SYENX4883-26-40 05:55:40036Dleaxnlj HermannCHEM ERGGH7453-57-23 05:55:233.8[facility] PWLSC5464-11-42 05:55:2328 [facility] TXGES6177-10-22 05:55:230.8[facility]annCHE[facility] PANEL 2014-09-30 05:55:239.1[facility] JUSYF8576-23-31 05:55:2310[facility] HLIPG9695-06-68 05:55:2389[facility] LYXHK1645-91-93 05:55:234.1[facility] NPITF2934-79-32 05:55:10629Hwliztwr HermannCHEM KIHYO4487-63-02 05:55:04789Igriynyj HermannCHEM FOMGF1105-59-39 05:55:2336 [facility] IHEUA9910-52-77 05:55:2323[facility]CHE[facility] PANEL 2014-09-30 05:55:230.6[facility] TNROQ7607-77-29 05:55:238.1[facility] ATGZZ1240-48-37 05:55:43693Cwliofir HermannCHEM PQIUX9361-65-75 05:55:2310.1[facility]annCHE[facility] WRVRI7733-18-15 05:55:2312[facility] LSJLH2107-63-16 05:55:230.9[facility]CHE[facility] PNAMD9098-94-81 05:55:234.3 [facility] ZGUFM0933-80-68 05:55:2350[facility]annENDOCRINOLOGY 2014-09-30 05:55:23Negative *NA*(09/29/14 11:55 PM)[facility]annHEMATOLOGY 2014-09-30 05:55:2315.3[facility] JciqxbrCIJXAWVKSN8004-64-69 05:55:2344.8[facility] PgnamkpCCSKGOXEYV2761-02-70 05:55:2313.5[facility] SwoiftvZUJFTOWWQO0859-05-37 05:55:23* Test Item Value Reference Range Interpretation Comments MCH (test code = MCH) 30.0 pg 27.0-31.0 [facility] ZlutaqoWECDVSGTKN3754-43-27 05:55:2334.1[facility]annHEMATOLOGY 2014-09-30 05:55:2312.8[facility] AmnmbchKSXYMEMUNT6693-71-58 05:55:235.10[facility] HorzpnjOYJGIYCSZQ0818-98-64 05:55:239.0[facility] VpqlodfOQMKJJSOMW8311-76-42 05:55:59620Mwgfeola CmvbhyeBJYTHDZNYB1907-71-20 05:55:2387.9[facility] ZEUADMKQPC2261-61-07 05:55:230.1[facility] HzywgstZKOAJDLSMF6619-99-67 05:55:231.0 [facility] HzhcrtkJUDUYKQEOG4181-90-09 05:55:230.6[facility]annHEMATOLOGY 2014-09-30 05:55:2362.0[facility] ZipbuixZWVOHMSUFI3175-59-48 05:55:2325.2[facility] CdhmzpwPIPRHPOGMM2877-86-11 05:55:234.7[facility] EnacijnPRSJUSLVON9615-63-90 05:55:231.0[facility] PrgbigzZSDQSBQZJQ5899-96-03 05:55:238.4[facility] GNUCRHVKMY5962-41-44 05:55:233.4[facility] HyzytteSOMZOXAEJY7125-09-25 05:55:237.1 [facility]
== END 2020-04-24 11:12 | disposition home or self-care (01) ==
LOC: ER 10:50
DX: L03.311 Cellulitis of abdominal wall (principal); F41.9 Anxiety disorder, unspecified; E28.2 Polycystic ovarian syndrome; F90.9 Attention-deficit hyperactivity disorder, unspecified type
CPT/HCPCS: 99282

== ENCOUNTER → 2020-05-22 | Outpatient (CLI) | payer OTHER ==
[~2020-05-22] MED LIST changes: +IOPAMIDOL 370 MG/ML 200 ML INFUS..BTL INJ ONE; +SODIUM CHLORIDE 0.9% 50ML 50 ML ONE
--- NOTE | 2020-05-22 17:43 | Diagnostic Imaging Report ---
EXAM: CT Abdomen and Pelvis WITH contrast INDICATION: CUTANEOUS ABSCESS OF ABDOMINAL WALL COMPARISON: CT abdomen and pelvis on 04/17/2020 TECHNIQUE: Abdomen and pelvis were scanned utilizing a multidetector helical scanner from the lung base to the pubic symphysis after administration of IV contrast. Coronal and sagittal reformations were obtained. Routine protocol was performed. Scan was performed when during portal venous phase. IV CONTRAST: 100 mL of Isovue 370 ORAL CONTRAST: None COMPLICATIONS: None RADIATION DOSE: Total DLP: 870 mGy*cm Estimated effective dose: (DLP x 0.015 x size factor) mSv CTDIvol has been reviewed. It is below the limits set by the Radiation Protocol Committee (RPC). Dose modulation, iterative reconstruction, and/or weight based adjustment of the mA/kV was utilized to reduce the radiation dose to as low as reasonably achievable. FINDINGS: LINES and TUBES: None. LOWER THORAX: Unremarkable HEPATOBILIARY: The liver is diffuse hypodense compared to the spleen, consistent with diffuse hepatic diffuse hepatic steatosis. No focal hepatic lesions. No biliary ductal dilation. GALLBLADDER: There are cholecystectomy clips. SPLEEN: No splenomegaly. PANCREAS: No focal masses or ductal dilatation. ADRENALS: No adrenal nodules KIDNEYS/URETERS: Kidneys enhance symmetrically. No hydronephrosis. No cystic or solid mass lesions. No stones. GI TRACT: No abnormal distention, wall thickening, or evidence of bowel obstruction. There are post surgical changes of appendectomy. PELVIC ORGANS/BLADDER: Unremarkable. LYMPH NODES: No lymphadenopathy. VESSELS: Unremarkable. PERITONEUM / RETROPERITONEUM: No free air or fluid. BONES: Unremarkable. SOFT TISSUES: There is interval decrease in fat stranding involving the right lower anterior abdominal wall and a small fat-containing umbilical hernia. Although the fat stranding persists, it appears coalesced, surrounding an area of fat necrosis. There is a skin defect of the left of the umbilicus (series 2 image 66) not well appreciated on prior examinations. The previously seen subcutaneous emphysema is not appreciated on current study. Thickening of the right rectus muscle seen on prior examination has resolved. IMPRESSION: 1. Persistent but decreased fat stranding in the right lower anterior abdominal wall surrounding an area of fat necrosis. There has also been interval resolution of previously seen subcutaneous emphysema and right rectus muscle thickening. Constellation of findings is suggestive of improving inflammatory changes. No abscess formation identified. 2. Skin defect of the level of umbilicus is indeterminate and may be related to post surgical changes. Signed by: Avinash Ash MD on 05/22/2020 5:40 PM
== END ==
LOC: CT 16:19
PROVIDERS: ATTEND Internal Medicine Infectious Disease
DX: L02.211 Cutaneous abscess of abdominal wall (principal)
CPT/HCPCS: 74177; 81025; Q9967

== ENCOUNTER 2020-05-29 19:41 | Inpatient (IN) | payer OTHER ==
[~2020-05-29] VITALS: Ht 167.6 cm; Wt 117.9 kg
[~2020-05-29 19:41] MED LIST changes: -IOPAMIDOL 370 MG/ML 200 ML INFUS..BTL INJ ONE; -SODIUM CHLORIDE 0.9% 50ML 50 ML ONE; +VANCOMYCIN 750MG/NS 150ML IVPB 150 ML IV SCH
[2020-05-29] MEDS ORDERED: VANCOMYCIN 750MG/NS 150ML IVPB 150 ML IV SCH (20:30)
[2020-05-29 20:49] LABS: BASOPHILS # (AUTO) 0.1 (0.0-0.1); BASOPHILS % 0.9 % (0.0-1.0); EOSINOPHILS # (AUTO) 0.3 (0.0-0.4); EOSINOPHILS % 3.5 % (0.0-6.0); HEMATOCRIT 42.8 % (34.2-44.1); HEMOGLOBIN 13.9 g/dL (12.0-16.0); LYMPHOCYTES # (AUTO) 2.6 (1.0-3.2); MEAN CORPUSCULAR HEMOGLOBIN 28.5 pg (28-32); MEAN CORPUSCULAR HGB CONC 32.5 g/dL (31-35); MEAN CORPUSCULAR VOLUME 87.7 fL (81-99); MONOCYTES # (AUTO) 0.7 (0.2-0.8); MONOCYTES % 8.4 % (4.4-11.3); NEUTROPHILS # (AUTO) 4.5 (2.1-6.9); NEUTROPHILS % 55.1 % (38.7-80.0); PLATELET COUNT 258 x10e3/uL (140-360); RED BLOOD COUNT 4.88 x10e6/uL (3.6-5.1); RED CELL DISTRIBUTION WIDTH 13.2 % (11.7-14.4)
[2020-05-29 21:05] LABS: ALANINE AMINOTRANSFERASE 36 IU/L (0-55); ALBUMIN 3.8 g/dL (3.5-5.0); ALKALINE PHOSPHATASE 73 IU/L (40-150); ANION GAP 15.7 mmol/L (8-16); BLOOD UREA NITROGEN 9 mg/dL (7-26); BUN/CREATININE RATIO 13 (6-25); CALCIUM 9.1 mg/dL (8.4-10.2); CARBON DIOXIDE 22 mmol/L (22-29); CHLORIDE 106 mmol/L (98-107); EST GLOMERULAR FILTRATION RATE > 60 ML/MIN (60-); GLUCOSE 90 mg/dL (74-118); POTASSIUM 4.7 mmol/L (3.5-5.1); SODIUM 139 mmol/L (136-145)
[2020-05-29 21:30] VITALS: BP 135/96
[2020-05-29 22:00] VITALS: BP 135/96
[2020-05-29] MEDS ORDERED: MEROPENEM 1GM 100 ML IV SCH (22:00)
[2020-05-29] MEDS ORDERED: FLAGYL250 MG PO (23:37)
[2020-05-29] MEDS ORDERED: MEROPENEM-1 GM/50 ML IV (23:41)
[2020-05-30] VITALS (7 sets, daily range): BP systolic 94–136; BP diastolic 61–95
[2020-05-30] MEDS ORDERED: HYDRALAZINE HCL 25 MG TAB PO PRN
[2020-05-30] MEDS ORDERED: AMLODIPINE BESYLATE 5 MG TAB PO PRN
[2020-05-30] MEDS ORDERED: MAGNESIUM HYDROXIDE 30 ML UDC PO PRN
[2020-05-30] MEDS ORDERED: [UNRECOGNIZED DRUG - OTHER] IV SCH
[2020-05-30] MEDS ORDERED: VANCOMYCIN 750MG/NS 150ML IVPB 150 ML IV SCH
[2020-05-30] MEDS ORDERED: ZOLPIDEM TARTRATE 10 MG TAB PO PRN
[2020-05-30] MEDS ORDERED: VANCOMYCIN IV SCH
[2020-05-30] MEDS ORDERED: ACETAMINOPHEN 325 MG TAB PO PRN
[2020-05-30] MEDS ORDERED: KETOROLAC TROMETHAMINE 30 MG/ML VIAL IV PRN
[2020-05-30] MEDS ORDERED: SODIUM CHLORIDE 0.9% 250ML 250 ML ONE (00:18)
[2020-05-30] MEDS: MEROPENEM 1GM 100 ML IV SCH ×3 (01:16→16:47)
[2020-05-30] MEDS: HYDROCODONE/APAP 7.5MG-325MG 1 EA TAB PO PRN (05:57)
[2020-05-30 06:16] LABS: BASOPHILS # (AUTO) 0.1 (0.0-0.1); BASOPHILS % 0.9 % (0.0-1.0); EOSINOPHILS # (AUTO) 0.3 (0.0-0.4); EOSINOPHILS % 3.8 % (0.0-6.0); HEMATOCRIT 38.4 % (34.2-44.1); HEMOGLOBIN 12.4 g/dL (12.0-16.0); LYMPHOCYTES # (AUTO) 3.1 (1.0-3.2); LYMPHOCYTES % 38.5 % (18.0-39.1); MEAN CORPUSCULAR HEMOGLOBIN 28.4 pg (28-32); MEAN CORPUSCULAR HGB CONC 32.3 g/dL (31-35); MEAN CORPUSCULAR VOLUME 87.9 fL (81-99); MONOCYTES # (AUTO) 0.6 (0.2-0.8); MONOCYTES % 7.5 % (4.4-11.3); NEUTROPHILS # (AUTO) 3.9 (2.1-6.9); PLATELET COUNT 211 x10e3/uL (140-360); RED BLOOD COUNT 4.37 x10e6/uL (3.6-5.1); RED CELL DISTRIBUTION WIDTH 13.1 % (11.7-14.4)
[2020-05-30 06:22] LABS: ANION GAP 12.4 mmol/L (8-16); BLOOD UREA NITROGEN 11 mg/dL (7-26); BUN/CREATININE RATIO 16 (6-25); CALCIUM 8.6 mg/dL (8.4-10.2); CARBON DIOXIDE 26 mmol/L (22-29); CHLORIDE 105 mmol/L (98-107); CREATININE, SERUM 0.68 mg/dL (0.57-1.11); EST GLOMERULAR FILTRATION RATE > 60 ML/MIN (60-); GLUCOSE 103 mg/dL (74-118); POTASSIUM 3.4 mmol/L (3.5-5.1); SODIUM 140 mmol/L (136-145)
[2020-05-30] MEDS: SENNOSIDES 8.6 MG TAB PO SCH ×2 (08:23→16:49)
[2020-05-30] MEDS: FAMOTIDINE 20 MG TAB PO SCH ×2 (08:23→16:55)
[2020-05-30] MEDS: AMPHET PO SCH (09:00)
[2020-05-30] MEDS: AMPHET ASP PO SCH (09:00)
[2020-05-30] MEDS: D AMPHET PO SCH (09:00)
[2020-05-30] MEDS: CELECOXIB 100 MG CAP PO SCH ×2 (09:50→16:47)
[2020-05-30] MEDS: MORPHINE SULFATE INJ 4 MG/ML INJ 1ML IV PRN ×3 (09:53→20:00)
[2020-05-30] MEDS: ONDANSETRON HCL INJ 2MG/ML 2ML 2 MG/ML VIAL IV PRN ×3 (09:54→20:00)
[2020-05-30] MEDS ORDERED: VANCOMYCIN 1GM/NS 250 ML 250 ML IV SCH (10:30)
[2020-05-30 10:39] LABS: AMYLASE 40 U/L (25-125); LIPASE 22 U/L (8-78)
[2020-05-30] MEDS ORDERED: DIATRIZOATE MEGL/DIATRIZOA SOD 30 ML BTL PO ONE (10:48)
[2020-05-30] MEDS ORDERED: VANCOMYCIN 300 ML IV SCH (11:00)
[2020-05-30] MEDS: VANCOMYCIN HCL 1.25 GM in SODIUM CHLORIDE 0.9% 250ML 250 ML IV SCH ×2 (11:36→23:36)
[2020-05-30] MEDS ORDERED: SODIUM CHLORIDE 0.9% 50ML 50 ML ONE (13:37)
[2020-05-30] MEDS ORDERED: IOPAMIDOL 370 MG/ML 200 ML INFUS..BTL INJ ONE (13:37)
[2020-05-30 14:24] LABS: BILIRUBIN,URINE NEGATIVE (NEGATIVE); CLARITY,URINE HAZY (CLEAR); KETONES,URINE 1+ (NEGATIVE); LEUKOCYTE ESTERASE ,URINE NEGATIVE (NEGATIVE); NITRITE,URINE NEGATIVE (NEGATIVE); PROTEIN,URINE DIPSTICK 1+ (NEGATIVE); URINE UROBILINOGEN 0.2 mg/dL (0.2 - 1)
[2020-05-30 14:25] LABS: COLOR,URINE STRAW (YELLOW)
[2020-05-30 14:37] LABS: BACTERIA,URINE FEW /HPF; RBC,URINE 0-5 /HPF (0-5); WBC,URINE (MAN) 0-5 /HPF (0-5)
[2020-05-30 14:38] LABS: EPITHELIAL CELLS,URINE MODERATE /LPF
[2020-05-30] MEDS ORDERED: VANCOMYCIN 1GM/NS 250 ML 0 ML ONE (23:55)
[2020-05-31] VITALS (9 sets, daily range): BP systolic 102–136; BP diastolic 53–90
[2020-05-31] MEDS: VANCOMYCIN HCL 1.25 GM in SODIUM CHLORIDE 0.9% 250ML 250 ML IV SCH ×2 (00:17→12:56)
[2020-05-31] MEDS: ONDANSETRON HCL INJ 2MG/ML 2ML 2 MG/ML VIAL IV PRN ×3 (00:33→16:19)
[2020-05-31] MEDS: MORPHINE SULFATE INJ 4 MG/ML INJ 1ML IV PRN ×4 (00:33→21:06)
[2020-05-31] MEDS: MEROPENEM 1GM 100 ML IV SCH ×4 (01:55→23:30)
[2020-05-31] MEDS: AMPHET ASP PO SCH (09:00)
[2020-05-31] MEDS ORDERED: ALTEPLASE RECOMBINANT 2 MG/2 ML VIAL IV NR (09:00)
[2020-05-31] MEDS: AMPHET PO SCH (09:00)
[2020-05-31] MEDS: CELECOXIB 100 MG CAP PO SCH ×2 (09:00→17:00)
[2020-05-31] MEDS: FAMOTIDINE 20 MG TAB PO SCH ×2 (09:00→16:30)
[2020-05-31] MEDS: D AMPHET PO SCH (09:00)
[2020-05-31] MEDS: SENNOSIDES 8.6 MG TAB PO SCH ×2 (09:00→17:00)
[2020-06-01] VITALS (9 sets, daily range): BP systolic 115–140; BP diastolic 60–90
[2020-06-01] MEDS: VANCOMYCIN HCL 1.25 GM in SODIUM CHLORIDE 0.9% 250ML 250 ML IV SCH ×3 (00:04→23:15)
[2020-06-01] MEDS: MORPHINE SULFATE INJ 4 MG/ML INJ 1ML IV PRN ×6 (00:07→20:44)
[2020-06-01] MEDS: ONDANSETRON HCL INJ 2MG/ML 2ML 2 MG/ML VIAL IV PRN ×5 (00:07→17:50)
[2020-06-01] MEDS: FAMOTIDINE 20 MG TAB PO SCH ×2 (07:30→16:35)
[2020-06-01] MEDS: D AMPHET PO SCH (09:00)
[2020-06-01] MEDS: AMPHET PO SCH (09:00)
[2020-06-01] MEDS: AMPHET ASP PO SCH (09:00)
[2020-06-01] MEDS: MEROPENEM 1GM 100 ML IV SCH ×2 (09:08→16:35)
[2020-06-01] MEDS: CELECOXIB 100 MG CAP PO SCH ×2 (09:08→16:35)
[2020-06-01] MEDS: SENNOSIDES 8.6 MG TAB PO SCH ×2 (09:08→16:35)
[2020-06-01 10:01] LABS: BLOOD UREA NITROGEN 11 mg/dL (7-26); BUN/CREATININE RATIO 15 (6-25); CALCIUM 8.2 mg/dL (8.4-10.2); CARBON DIOXIDE 29 mmol/L (22-29); CHLORIDE 104 mmol/L (98-107); CREATININE, SERUM 0.71 mg/dL (0.57-1.11); EST GLOMERULAR FILTRATION RATE > 60 ML/MIN (60-); GLUCOSE 102 mg/dL (74-118); SODIUM 139 mmol/L (136-145)
[2020-06-02] VITALS (8 sets, daily range): BP systolic 108–138; BP diastolic 68–88
[2020-06-02] MEDS: MORPHINE SULFATE INJ 4 MG/ML INJ 1ML IV PRN ×7 (00:40→23:33)
[2020-06-02] MEDS: MEROPENEM 1GM 100 ML IV SCH ×3 (00:59→16:34)
[2020-06-02] MEDS: ONDANSETRON HCL INJ 2MG/ML 2ML 2 MG/ML VIAL IV PRN ×4 (05:11→20:21)
[2020-06-02] MEDS: AMPHET PO SCH (09:00)
[2020-06-02] MEDS: AMPHET ASP PO SCH (09:00)
[2020-06-02] MEDS: SENNOSIDES 8.6 MG TAB PO SCH ×2 (09:00→16:34)
[2020-06-02] MEDS: D AMPHET PO SCH (09:00)
[2020-06-02] MEDS: CELECOXIB 100 MG CAP PO SCH ×2 (09:22→16:34)
[2020-06-02] MEDS: FAMOTIDINE 20 MG TAB PO SCH ×2 (09:22→15:30)
[2020-06-02] MEDS: VANCOMYCIN HCL 1.25 GM in SODIUM CHLORIDE 0.9% 250ML 250 ML IV SCH ×2 (12:14→23:33)
[2020-06-02] MEDS: LACTOBACILLUS ACIDOPHILUS CAPSULE PO SCH ×2 (15:30→20:21)
[2020-06-03] VITALS (8 sets, daily range): BP systolic 117–144; BP diastolic 83–95
[2020-06-03] MEDS: MEROPENEM 1GM 100 ML IV SCH ×3 (01:25→16:25)
[2020-06-03] MEDS: MORPHINE SULFATE INJ 4 MG/ML INJ 1ML IV PRN ×5 (02:42→20:35)
[2020-06-03] MEDS: FAMOTIDINE 20 MG TAB PO SCH ×2 (07:59→16:25)
[2020-06-03] MEDS: CELECOXIB 100 MG CAP PO SCH ×2 (07:59→16:25)
[2020-06-03] MEDS: LACTOBACILLUS ACIDOPHILUS CAPSULE PO SCH ×3 (08:00→20:35)
[2020-06-03] MEDS: AMPHET PO SCH (08:00)
[2020-06-03] MEDS: ONDANSETRON HCL INJ 2MG/ML 2ML 2 MG/ML VIAL IV PRN ×3 (08:00→16:26)
[2020-06-03] MEDS: D AMPHET PO SCH (08:00)
[2020-06-03] MEDS: AMPHET ASP PO SCH (08:00)
[2020-06-03] MEDS: SENNOSIDES 8.6 MG TAB PO SCH ×2 (08:00→16:25)
[2020-06-03] MEDS: VANCOMYCIN HCL 1.25 GM in SODIUM CHLORIDE 0.9% 250ML 250 ML IV SCH (12:23)
[2020-06-03] MEDS: ONDANSETRON HCL 4 MG ORAL DISINTEGRATING TAB PO PRN (20:35)
[2020-06-04] VITALS (8 sets, daily range): BP systolic 122–140; BP diastolic 73–100
[2020-06-04] MEDS: MEROPENEM 1GM 100 ML IV SCH ×3 (00:22→17:31)
[2020-06-04] MEDS: MORPHINE SULFATE INJ 4 MG/ML INJ 1ML IV PRN ×6 (00:35→21:04)
[2020-06-04] MEDS: ONDANSETRON HCL INJ 2MG/ML 2ML 2 MG/ML VIAL IV PRN ×3 (00:35→21:04)
[2020-06-04] MEDS: VANCOMYCIN HCL 1.25 GM in SODIUM CHLORIDE 0.9% 250ML 250 ML IV SCH ×2 (00:47→12:24)
[2020-06-04] MEDS: D AMPHET PO SCH (07:35)
[2020-06-04] MEDS: AMPHET ASP PO SCH (07:35)
[2020-06-04] MEDS: AMPHET PO SCH (07:35)
[2020-06-04] MEDS: LACTOBACILLUS ACIDOPHILUS CAPSULE PO SCH ×3 (08:29→21:00)
[2020-06-04] MEDS: SENNOSIDES 8.6 MG TAB PO SCH ×2 (08:29→17:31)
[2020-06-04] MEDS: CELECOXIB 100 MG CAP PO SCH ×2 (08:29→17:31)
[2020-06-04] MEDS: FAMOTIDINE 20 MG TAB PO SCH ×2 (08:29→17:31)
[2020-06-04] MEDS: ONDANSETRON HCL 4 MG ORAL DISINTEGRATING TAB PO PRN (11:17)
[2020-06-04] MEDS: HYDROCODONE/APAP 7.5MG-325MG 1 EA TAB PO PRN (11:17)
[2020-06-05] VITALS: BP 133/87
[2020-06-05] MEDS: VANCOMYCIN HCL 1.25 GM in SODIUM CHLORIDE 0.9% 250ML 250 ML IV SCH (00:23)
[2020-06-05] MEDS ORDERED: SODIUM CHLORIDE 0.9% 250ML 250 ML ONE (00:29)
[2020-06-05] MEDS: MEROPENEM 1GM 100 ML IV SCH ×2 (00:35→07:52)
[2020-06-05] MEDS: ONDANSETRON HCL INJ 2MG/ML 2ML 2 MG/ML VIAL IV PRN ×3 (00:35→07:52)
[2020-06-05] MEDS: MORPHINE SULFATE INJ 4 MG/ML INJ 1ML IV PRN ×3 (00:35→07:52)
[2020-06-05] MEDS ORDERED: IOPAMIDOL 370 MG/ML 200 ML INFUS..BTL INJ ONE (01:50)
[2020-06-05] MEDS ORDERED: SODIUM CHLORIDE 0.9% 50ML 50 ML ONE (01:50)
[2020-06-05 02:52] LABS: CREATINE KINASE MB 0.7 ng/mL (0-5.0)
[2020-06-05 04:00] VITALS: BP 112/77
[2020-06-05] MEDS: LACTOBACILLUS ACIDOPHILUS CAPSULE PO SCH (07:52)
[2020-06-05] MEDS: FAMOTIDINE 20 MG TAB PO SCH (07:52)
[2020-06-05] MEDS: CELECOXIB 100 MG CAP PO SCH (07:52)
[2020-06-05] MEDS: SENNOSIDES 8.6 MG TAB PO SCH (07:52)
[2020-06-05 08:00] VITALS: BP 113/74
[2020-06-05] MEDS: AMPHET ASP PO SCH (09:00)
[2020-06-05] MEDS: AMPHET PO SCH (09:00)
[2020-06-05] MEDS: D AMPHET PO SCH (09:00)
[2020-06-05] MEDS ORDERED: MAALOX/LIDOCAINE/BENADRYL/NYST 30 ML BTL PO PRN (09:15)
[2020-06-05] MEDS ORDERED: HYDROCODONE/APAP 10MG-325MG TAB PO PRN (09:15)
[2020-06-05 09:47] VITALS: BP 113/94
[2020-06-05 11:57] VITALS: BP 144/73
== END 2020-06-05 13:41 | disposition home or self-care (01) | DRG 863 ==
LOC: ER 20:31 → ERHOLD 20:42 → MED/SURG 22:19 → MED/SURG2 05-30 13:56
PROVIDERS: ADMIT Internal Medicine; ATTEND Internal Medicine
DX: T81.43XA Infection following a procedure, organ and space surgical site, initial encounter (principal); L03.311 Cellulitis of abdominal wall; Z68.41 Body mass index [BMI] 40.0-44.9, adult; B96.89 Other specified bacterial agents as the cause of diseases classified elsewhere; Z88.1 Allergy status to other antibiotic agents; Z88.0 Allergy status to penicillin; Z88.2 Allergy status to sulfonamides; Z88.8 Allergy status to other drugs, medicaments and biological substances; E66.01 Morbid (severe) obesity due to excess calories; B95.62 Methicillin resistant Staphylococcus aureus infection as the cause of diseases classified elsewhere; R07.9 Chest pain, unspecified; Z11.59 Encounter for screening for other viral diseases
CPT/HCPCS: 36415; 71046; 71260; 74177; 80048; 80053; 80202; 81001; 81025; 82150; 82550; 82553; 83605; 83690; 84484; 85025; 85379; 87040; 87086; 93005; 97605; 99251; 99284; J1885; J2270; J2405; J2997; J3370; J7050; Q0162; Q9967; U0002